=== PATIENT | female | born 1960 | race Two or more races ===

== ENCOUNTER 2018-05-06 13:59 | Emergency (ER) | payer MEDICARE, MEDICAID ==
[~2018-05-06] VITALS: Ht 162.6 cm; Wt 72.6 kg
--- NOTE | 2018-05-06 14:08 | Emergency Room Report ---
History of Present Illness General Chief Complaint: Multiple Trauma/Fall Source: Patient Present Illness HPI Patient brought in by EMS after ground-level fall. She fell onto her knees. She tripped. She was face down when they found her. She is unable to ambulates due to pain. The pain is severe bilaterally. She also has bruising of her right knee area. There is no numbness. She denies lose consciousness. There is no chest or face pain. The patient has a history of diabetes. Allergies: Coded Allergies: No Known Allergies (Unverified , 05/06/18) Patient History Past Medical History: see triage record Social History: Denies: smoking, alcohol use Social History Narrative Reviewed Nursing Documentation: PMH: Agreed; PSxH: Agreed Nursing Documentation-PMH Past Medical History: No History, Except For Hx Hypertension: Yes Hx Diabetes: Yes Review of Systems All Other Systems: negative except mentioned in HPI Physical Exam Vital Signs Date Time Temp Pulse Resp B/P (MAP) Pulse Ox O2 Delivery O2 Flow Rate FiO2 05/06/18 13:57 98.3 118 18 106/59 99 Room Air 98.2 Sp02 EP Interpretation: reviewed, normal General Appearance: well appearing, no apparent distress, GCS 15 Head: normocephalic, atraumatic Eyes: bilateral eye normal inspection, bilateral eye PERRL ENT: hearing grossly normal, normal voice, moist mucus membranes Neck: full range of motion, supple, no bony tend Respiratory: chest non-tender, lungs clear, normal breath sounds, no respiratory distress, speaking full sentences Cardiovascular #1: regular rate, rhythm Gastrointestinal: normal bowel sounds, non tender, soft, overweight Musculoskeletal: no calf tenderness, pelvis stable, swelling, other - Bilateral knee pain. Lateral ligaments are stable. There is tenderness to palpation. She's no deformity. Neurologic: alert, motor strength/tone normal, sensory intact Psychiatric: mood/affect normal Skin: no rash, hematoma - And ecchymoses right anterior knee Medical Decision Making Diagnostic Impression: Primary Impression: Contusion of right knee Additional Impressions: Contusion of left knee Multiple injuries due to trauma ER Course Patient presents post fall with bilateral knee pain and also hip pain on the right. Differential includes contusion, hematoma, fracture amongst others. The patient will be evaluated with labs as she is diabetic and also x-rays. She will be treated with Toradol morphine and Zofran. X-ray pelvis without fractures. Right knee with degenerative joint disease. No fractures. Left knee with less DJD. Both knees have small effusions. Labs are significant for elevated glucose low H&H elevated alkaline phosphatase. Kurt applied by the exhaust emissions automotive technician. Tension is good and position is excellent. Patient has some improvement with this. Neurovascular is checked by me and normal. Patient is improved with treatment. Follow-up is needed with her doctors. Treatment plan was discussed. Patient stable for outpatient observation and treatment. Laboratory Tests Test 05/06/18 14:15 White Blood Count 7.8 K/UL (4.8-10.8) Red Blood Count 3.47 M/UL (4.20-5.40) L Hemoglobin 11.0 G/DL (12.0-16.0) L Hematocrit 33.2 % (37.0-47.0) L Mean Corpuscular Volume 96 FL (80-99) Mean Corpuscular Hemoglobin 31.6 PG (27.0-31.0) H Mean Corpuscular Hemoglobin Concent 33.0 G/DL (32.0-36.0) Red Cell Distribution Width 13.8 % (11.6-14.8) Platelet Count 107 K/UL (150-450) L Mean Platelet Volume 10.5 FL (6.5-10.1) H Neutrophils (%) (Auto) 69.6 % (45.0-75.0) Lymphocytes (%) (Auto) 22.2 % (20.0-45.0) Monocytes (%) (Auto) 6.4 % (1.0-10.0) Eosinophils (%) (Auto) 1.1 % (0.0-3.0) Basophils (%) (Auto) 0.7 % (0.0-2.0) Sodium Level 139 MMOL/L (136-145) Potassium Level 3.3 MMOL/L (3.5-5.1) L Chloride Level 105 MMOL/L (98-107) Carbon Dioxide Level 26 MMOL/L (21-32) Anion Gap 8 mmol/L (5-15) Blood Urea Nitrogen 10 mg/dL (7-18) Creatinine 0.6 MG/DL (0.55-1.30) Estimate Glomerular Filtration Rate > 60 mL/min (>60) Glucose Level 292 MG/DL (74-106) H Calcium Level 8.7 MG/DL (8.5-10.1) Total Bilirubin 0.5 MG/DL (0.2-1.0) Aspartate Amino Transferase (AST) 41 U/L (15-37) H Alanine Aminotransferase (ALT) 58 U/L (12-78) Alkaline Phosphatase 335 U/L (46-116) H Total Protein 6.4 G/DL (6.4-8.2) Albumin 2.8 G/DL (3.4-5.0) L Globulin 3.6 g/dL Albumin/Globulin Ratio 0.8 (1.0-2.7) L Other X-Ray Diagnostic Results Other X-Ray Diagnostic Results #1: X-Ray ordered: l knee # of Views/Limited Vs Complete: 3 View Indication: Other EP Interpretation: Yes Interpretation: no dislocation, no soft tissue swelling, no fractures, other - effusion, small Impression: Other Electronically Signed by: Electronically signed by Vishnu Paredes MD Other X-Ray Diagnostic Results #2: X-Ray ordered: r knee # of Views/Limited Vs Complete: 3 View Indication: Other EP Interpretation: Yes Interpretation: no dislocation, no soft tissue swelling, no fractures, other - DJD and effusion Impression: Other Electronically Signed by: Electronically signed by Vishnu Paredes MD Other X-Ray Diagnostic Results #3: X-Ray ordered: pelvis # of Views/Limited Vs Complete: 1 View Indication: Other Interpretation: no dislocation, no soft tissue swelling, no fractures, nonspecific bowel gas Impression: Other Electronically Signed by: Electronically signed by Vishnu Paredes MD Status: improved Disposition: HOME, SELF-CARE Condition: Improved Vishnu Paredse M.D. May 06, 2018 14:08
[2018-05-06] MEDS ORDERED: Ketorolac 30mg Inj IV ONE (14:15)
[2018-05-06] MEDS ORDERED: Morphine Sulfate 4mg/ml Inj (IV USE ONLY) IVP ONE (14:15)
[2018-05-06 14:43] LABS: BASOPHILS % (AUTO) 0.7 % (0.0-2.0); EOSINOPHILS % (AUTO) 1.1 % (0.0-3.0); HEMATOCRIT 33.2 % (37.0-47.0); LYMPHOCYTES % (AUTO) 22.2 % (20.0-45.0); MEAN CORPUSCULAR VOLUME 96 FL (80-99); MONOCYTES % (AUTO) 6.4 % (1.0-10.0); NEUTROPHILS % (AUTO) 69.6 % (45.0-75.0); PLATELET COUNT 107 K/UL (150-450); RED BLOOD COUNT 3.47 M/UL (4.20-5.40); RED CELL DISTRIBUTION WIDTH 13.8 % (11.6-14.8); WHITE BLOOD COUNT 7.8 K/UL (4.8-10.8)
[2018-05-06 14:50] LABS: ANION GAP 8 mmol/L (5-15); BLOOD UREA NITROGEN 10 mg/dL (7-18); CALCIUM 8.7 MG/DL (8.5-10.1); CARBON DIOXIDE 26 MMOL/L (21-32); CHLORIDE 105 MMOL/L (98-107); CREATININE 0.6 MG/DL (0.55-1.30); POTASSIUM 3.3 MMOL/L (3.5-5.1); SODIUM 139 MMOL/L (136-145)
[2018-05-06 14:55] LABS: ALANINE AMINOTRANSFERASE 58 U/L (12-78); ALBUMIN 2.8 G/DL (3.4-5.0); ALBUMIN/GLOBULIN RATIO 0.8 (1.0-2.7); ALKALINE PHOSPHATASE 335 U/L (46-116); ASPARTATE AMINO TRANSFERASE 41 U/L (15-37); BILIRUBIN,TOTAL 0.5 MG/DL (0.2-1.0)
[2018-05-06 15:25] VITALS: BP 107/67
[2018-05-06] MEDS ORDERED: TRAMADOL HCL50 MG ORAL (15:43)
[2018-05-06] MEDS ORDERED: IBUPROFEN600 MG ORAL (15:43)
[2018-05-06 16:00] VITALS: BP 107/67
--- NOTE | 2018-05-07 12:49 | Diagnostic Imaging Report ---
Indication: Pain status post trauma Technique: XRAY Pelvis 1v Comparison: None FINDINGS/IMPRESSION: Limited exam due to underpenetration secondary to patient's body habitus. Within these limitations: No definite/displaced acute fracture identified. Bilateral hip joints, sacroiliac joints and symphysis pubis maintained. Some degenerative changes are noted in the lower lumbar spine. No radiopaque foreign body identified. More sensitive evaluation with CT or MRI of the pelvis can be obtained as clinically indicated.
--- NOTE | 2018-05-07 12:51 | Diagnostic Imaging Report ---
Indication: Left knee pain status post injury Technique: 3 views of the left knee Comparison: None Findings: Bone mineralization within normal limits. There is no evidence of acute fracture or dislocation. There is a small quadriceps tendon enthesophyte. A fabella is incidentally identified. No suprapatellar joint effusion. No radiopaque foreign body. Impression: No acute bony or articular abnormality.
--- NOTE | 2018-05-07 12:52 | Diagnostic Imaging Report ---
Indication: Right knee pain status post injury Technique: 3 views of the right knee Comparison: None: Correlation made to concurrent radiographs of the left knee. Findings: Bony mineralization within normal limits. There is no evidence of acute fracture or dislocation. There is a tiny quadriceps tendon enthesophyte. A fabella is incidentally identified. No suprapatellar joint effusion. No radiopaque foreign body. Impression: No acute bony or articular abnormality.
== END 2018-05-06 16:06 | disposition home or self-care (01) ==
LOC: EDBD 13:59 → EMR 14:15
DX: S80.02XA Contusion of left knee, initial encounter (principal); S80.01XA Contusion of right knee, initial encounter; W01.0XXA Fall on same level from slipping, tripping and stumbling without subsequent striking against object, initial encounter; Y92.89 Other specified places as the place of occurrence of the external cause; I10 Essential (primary) hypertension; E11.9 Type 2 diabetes mellitus without complications
CPT/HCPCS: 36415; 72170; 73562; 80053; 85025; 96374; 96375; 99284; J1885; J2270; J2405

== ENCOUNTER 2018-10-09 08:26 | Inpatient (IN) | payer MEDICARE, MEDICAID ==
[~2018-10-09] VITALS: Ht 154.9 cm; Wt 108.0 kg
[2018-10-09] VITALS (39 sets, daily range): BP systolic 59–187; BP diastolic 16–105
[~2018-10-09 08:26] MED LIST: IBUPROFEN600 MG ORAL; TRAMADOL HCL50 MG ORAL
--- NOTE | 2018-10-09 08:30 | NUR ---
ED Nurse Note: PT BROUGHT IN BY R13 FROM HOME. AOX4. PT C/O UPPER AND LOWER BACK PAIN AND RIGHT HIP PAIN, 8/10 X LAST NIGHT AFTER FALL. PER EMS, FALL WAS UNWITNESSED BUT OCCURRED SOME TIME BETWEEN 12AM AND 8AM. SKIN INTACT. PT O2SAT 81%. PT PLACED ON 3L O2 VIA NASAL CANNULA. RR21 @ 94% O2 SAT. BP: 76/44. DR. GRACY CHEW.
[2018-10-09] MEDS ORDERED: METFORMIN HCL500 M1 ORAL (08:31)
[2018-10-09] MEDS ORDERED: GLIPIZIDE10 MG PO (08:31)
[2018-10-09] MEDS ORDERED: EC-NAPROSYN375 MG PO (08:31)
[2018-10-09] MEDS ORDERED: HYDROCHLOROTH12.5 M2 ORAL (08:31)
[2018-10-09 09:12] LABS: HEMATOCRIT 29.4 % (37.0-47.0); HEMOGLOBIN 9.2 G/DL (12.0-16.0); MEAN CORPUSCULAR VOLUME 98 FL (80-99); PLATELET COUNT 184 K/UL (150-450); RED CELL DISTRIBUTION WIDTH 16.5 % (11.6-14.8)
--- NOTE | 2018-10-09 09:15 | NUR ---
ED Nurse Note: XRAY AT BEDSIDE
[2018-10-09 09:16] LABS: WHITE BLOOD COUNT 29.4 K/UL (4.8-10.8)
[2018-10-09 09:23] LABS: ANION GAP 16 mmol/L (5-15); APPEARANCE,URINE CLEAR; BILIRUBIN, URINE NEGATIVE (NEGATIVE); BLOOD UREA NITROGEN 22 mg/dL (7-18); CALCIUM 8.3 MG/DL (8.5-10.1); CARBON DIOXIDE 19 MMOL/L (21-32); CHLORIDE 99 MMOL/L (98-107); COLOR,URINE BROWN; GLUCOSE, URINE (UA) 2+ (NEGATIVE); KETONES,URINE 1+ (NEGATIVE); LEUKOCYTE ESTERASE ,URINE 1+ (NEGATIVE); NITRITE,URINE NEGATIVE (NEGATIVE); PH,URINE 5 (4.5-8.0); POTASSIUM 4.1 MMOL/L (3.5-5.1); PROTEIN,URINE 2+ (NEGATIVE); SODIUM 134 MMOL/L (136-145); UROBILINOGEN,URINE NORMAL MG/DL (0.0-1.0)
[2018-10-09] MEDS ORDERED: Piperacillin/Tazobactam 4.5 GM in NS 110 ML IVPB ONE (09:30)
[2018-10-09] MEDS ORDERED: VANCOMYCIN 1.5 GM IVPB ONE (09:30)
--- NOTE | 2018-10-09 09:35 | NUR ---
ED Nurse Note: 2+ PITTING EDEMA NOTED TO BILATERAL LOWER LEGS. SKIN ASSESSMENT: BLANCHABLE REDNESS NOTED TO COCCYX AREA WELL BILATERAL HIP BRUISING.
[2018-10-09 09:37] LABS: ALANINE AMINOTRANSFERASE 165 U/L (12-78); ALBUMIN 2.1 G/DL (3.4-5.0); ALBUMIN/GLOBULIN RATIO 0.7 (1.0-2.7); ALKALINE PHOSPHATASE 240 U/L (46-116); ASPARTATE AMINO TRANSFERASE 196 U/L (15-37); BILIRUBIN,TOTAL 0.7 MG/DL (0.2-1.0); CKMB 45.1 NG/ML (0.0-3.6); CREATINE KINASE 3455 U/L (26-308)
[2018-10-09] MEDS ORDERED: Lidocaine 1% Plain 30 ml INJ ONE (10:03)
[2018-10-09] MEDS ORDERED: Lidocaine 1% 10mg/ml/Epi 0.005mg/ml 30ml vial INJ ONE ×2 (10:04→11:45)
--- NOTE | 2018-10-09 10:10 | NUR ---
ED Nurse Note: DR DUBOSE AT BEDSIDE FOR RIGHT FEMORAL TRIPLE LUMEN CENTRAL LINE INSERTION. PT TOLERATED PROCEDURE WELL.
[2018-10-09] MEDS ORDERED: DOPamine 400mg/250ml 0 ML IV ONE (10:13)
[2018-10-09] MEDS ORDERED: Levophed 4mg/4mL Inj IV ONE (10:17)
--- NOTE | 2018-10-09 10:40 | Emergency Room Report ---
History of Present Illness General Chief Complaint: Multiple Trauma/Fall Source: Family Member, Medical Record, EMS Present Illness HPI Patient initially presents by paramedics with what they reported is a fall Mechanical nature Upon arrival and general visualization of the patient she appears confused and ill With pallor Patient herself is confused And history was limited from the patient Family presents and they report that the patient was at [facility] ago with hip pain imaging studies were negative The now reports that over the past 3 weeks the patient has been showing some signs of confusion Family reports that last night she complained of abdominal pain Also had diarrhea Upon initial evaluation patient is also found to be hypoxic and in critical condition Allergies: Coded Allergies: No Known Allergies (Unverified , 05/06/18) Patient History Limited by: medical condition Past Medical History: see triage record Pertinent Family History: unable to obtain Last Menstrual Period: unknown Reviewed Nursing Documentation: PMH: Agreed; PSxH: Agreed Nursing Documentation-PM Past Medical History: No History, Except For Hx Hypertension: Yes Hx Diabetes: Yes Review of Systems All Other Systems: limited - Other than the ones mentioned in the history of present illness all others are reviewed however they do stay limited due to the patient's mental status Physical Exam Vital Signs Date Time Temp Pulse Resp B/P (MAP) Pulse Ox O2 Delivery O2 Flow Rate FiO2 10/09/18 08:26 98.1 61 20 135/114 100 Room Air 10/09/18 08:30 3.0 Sp02 EP Interpretation: reviewed, abnormal - Triage notes reports 100% on room air, on my evaluation patient is saturating at 85% on room air which is low, on 3 L nasal cannula patient improved to 95% which is a normal oxygenation General Appearance: mild distress - appears confused lethargic Head: normocephalic, atraumatic Eyes: bilateral eye PERRL ENT: no angioedema, dry mucus membranes Neck: supple, no meningismus Respiratory: other - Appears short of breath somewhat tachypneic Cardiovascular #1: regular rate, rhythm, no edema Gastrointestinal: other - Initially patient unable to provide history later reports mid abdominal pain family also confirms abdominal pain noted previously Musculoskeletal: other - Patient moving extremities without focal deficit, has bruising on bilateral hip area Neurologic: responsive, other - Patient awakens eyes and attempts communication however appears uncomfortable Skin: other - Pallor to the facial area, bruising to the hip region Lymphatic: no adenopathy Procedures Critical Care Time Critical Care Time 80 minutes for initial critical presentation, ongoing critical care in the emergency room concern for respiratory and vascular deterioration not including any procedural time Central Line Central Line : Consent: Emergent Central Line Lumen: triple Maximal Sterile Barrier Tech: yes cap, yes mask, yes sterile gown, yes sterile gloves, yes large sterile sheet, yes hand hygiene, yes chlorhexidine prep Central Line Postion: subclavian (R) Anesthesia: Lidocaine cc's of anesthesia: 3 Complications: none Central Line Post Position: sutured Attempts: One Patient Tolerated: Well Complications: None Medical Decision Making Diagnostic Impression: Primary Impression: Liver cirrhosis Additional Impressions: Septic shock Pneumonia ER Course Patient presents in critical status Requires acute emergency care Patient is aggressively IV hydrated CT imaging reveals some liver disease with cirrhosis and ascites Patient's white blood cell count is significantly elevated severe acidosis is evident Patient thus far maintaining appropriate airway Broad-spectrum antibiotics are initiated Sepsis reexamination Time:1200 VS refer to nursing note cvs: RRR respiratory: improved respiration peripheral pulses: 2+radial cap refill:<2 seconds skin exam: warm, dry, not mottled Patient admitted to ICU in critical fashion with general surgery consultation as well Please note that the patient's creatinine is elevated, we did want to obtain CT imaging for further pulmonary embolism Patient be further hydrated patient was treated with Lovenox And case was also discussed with pulmonary critical care, Labs Test 10/09/18 08:51 10/09/18 09:10 10/09/18 10:56 10/09/18 11:43 White Blood Count 29.4 K/UL (4.8-10.8) Red Blood Count 3.00 M/UL (4.20-5.40) Hemoglobin 9.2 G/DL (12.0-16.0) Hematocrit 29.4 % (37.0-47.0) Mean Corpuscular Volume 98 FL (80-99) Mean Corpuscular Hemoglobin 30.8 PG (27.0-31.0) Mean Corpuscular Hemoglobin Concent 31.4 G/DL (32.0-36.0) Red Cell Distribution Width 16.5 % (11.6-14.8) Platelet Count 184 K/UL (150-450) Mean Platelet Volume 7.3 FL (6.5-10.1) Neutrophils (%) (Auto) % (45.0-75.0) Lymphocytes (%) (Auto) % (20.0-45.0) Monocytes (%) (Auto) % (1.0-10.0) Eosinophils (%) (Auto) % (0.0-3.0) Basophils (%) (Auto) % (0.0-2.0) Differential Total Cells Counted 100 Neutrophils % (Manual) 62 % (45-75) Lymphocytes % (Manual) 3 % (20-45) Monocytes % (Manual) 6 % (1-10) Eosinophils % (Manual) 0 % (0-3) Basophils % (Manual) 0 % (0-2) Band Neutrophils 29 % (0-8) Platelet Estimate Adequate Platelet Morphology Normal Red Blood Cell Morphology Normal Urine Color Brown Urine Appearance Clear Urine pH 5 (4.5-8.0) Urine Specific Biggers 1.015 (1.005-1.035) Urine Protein 2+ (NEGATIVE) Urine Glucose (UA) 2+ (NEGATIVE) Urine Ketones 1+ (NEGATIVE) Urine Blood Negative (NEGATIVE) Urine Nitrite Negative (NEGATIVE) Urine Bilirubin Negative (NEGATIVE) Urine Urobilinogen Normal MG/DL (0.0-1.0) Urine Leukocyte Esterase 1+ (NEGATIVE) Urine RBC 0 /HPF (0 - 2) Urine WBC 0-2 /HPF (0 - 2) Urine Squamous Epithelial Cells Occasional /LPF Urine Bacteria Occasional /HPF (NONE) Sodium Level 134 MMOL/L (136-145) Potassium Level 4.1 MMOL/L (3.5-5.1) Chloride Level 99 MMOL/L (98-107) Carbon Dioxide Level 19 MMOL/L (21-32) Anion Gap 16 mmol/L (5-15) Blood Urea Nitrogen 22 mg/dL (7-18) Creatinine 2.0 MG/DL (0.55-1.30) Estimat Glomerular Filtration Rate 25.6 mL/min (>60) Glucose Level 86 MG/DL (74-106) Lactic Acid Level 9.70 mmol/L (0.4-2.0) 7.90 mmol/L (0.66-2.22) Calcium Level 8.3 MG/DL (8.5-10.1) Total Bilirubin 0.7 MG/DL (0.2-1.0) Aspartate Amino Transf (AST/SGOT) 196 U/L (15-37) Alanine Aminotransferase (ALT/SGPT) 165 U/L (12-78) Alkaline Phosphatase 240 U/L (46-116) Total Creatine Kinase 3455 U/L (26-308) Creatine Kinase MB 45.1 NG/ML (0.0-3.6) Creatine Kinase MB Relative Index 1.3 Troponin I 0.811 ng/mL (0.000-0.056) Pro-B-Type Natriuretic Peptide 539 pg/mL (0-125) Total Protein 5.1 G/DL (6.4-8.2) Albumin 2.1 G/DL (3.4-5.0) Globulin 3.0 g/dL Albumin/Globulin Ratio 0.7 (1.0-2.7) Lipase 136 U/L (73-393) Urine Opiates Screen Negative (NEGATIVE) Urine Barbiturates Screen Negative (NEGATIVE) Phencyclidine (PCP) Screen Negative (NEGATIVE) Urine Amphetamines Screen Negative (NEGATIVE) Urine Benzodiazepines Screen Negative (NEGATIVE) Urine Cocaine Screen Negative (NEGATIVE) Urine Marijuana (THC) Screen Negative (NEGATIVE) Serum Alcohol < 3 mg/dL Arterial Blood pH 7.393 (7.350-7.450) Arterial Blood Partial Pressure CO2 33.1 mmHg (35.0-45.0) Arterial Blood Partial Pressure O2 85.6 mmHg (75.0-100.0) Arterial Blood HCO3 19.7 mmol/L (22.0-26.0) Arterial Blood Oxygen Saturation 94.9 % (95-100) Arterial Blood Base Excess -4.5 (-2-2) Ortiz Test Positive Ammonia 49 umol/L (11-32) Rhythm Strip Diag. Results EP Interpretation: yes Rate: 110 Rhythm: no PVC's, no ectopy, other - sinus tach Chest X-Ray Diagnostic Results Chest X-Ray Diagnostic Results : Chest X-Ray Ordered: Yes Indication: Shortness of Breath EP Interpretation: Yes Interpretation: no effusion, no pneumothorax, other - cardiomegaly, right- sided infrate Impression: Other - right-sided infiltrate Electronically Signed by: Michael Montana, CT/MRI/US Diagnostic Results CT/MRI/US Diagnostic Results : Impression CT abdomen pelvisImpression: Limited assessment of the GI tract, due to lack of enteric contrast administration. Exam is also limited due to patient motion artifact and lack of IV contrast administration Evidence of hepatic cirrhosis Small amount of ascites, likely related to the above Surgically absent gallbladder Bilateral basilar pulmonary parenchymal atelectatic changes and possible patchy consolidation Minimal edema of the bilateral flank subcutaneous fat Other findings as noted, including degenerative spondylosis, right hepatic lobe capsular calcification, Quiroz catheter CT head no acute disease CTL-spine no acute disease Last Vital Signs Date Time Temp Pulse Resp B/P (MAP) Pulse Ox O2 Delivery O2 Flow Rate FiO2 10/09/18 10:22 87/52 10/09/18 09:30 98.2 110 28 100 Nasal Cannula 3.0 Status: improved Disposition: ADMITTED INPATIENT Condition: Critical Referrals: NON PHYSICIAN (PCP) Michael Montana DO Oct 09, 2018 10:40
--- NOTE | 2018-10-09 10:50 | NUR ---
ED Nurse Note: VERBAL ORDER FOR BLANCHARD CATHETER INSERTION. BLANCHARD CATHETER INSERTED USING STERILE TECHNIQUE. CATHETER PATENT AND DRAINING YELLOW URINE. PT TOLERATED PROCEDURE WELL.
--- NOTE | 2018-10-09 11:07 | Diagnostic Imaging Report ---
Indication: Shortness of breath Technique: One view of the chest Comparison: none Findings: Body habitus limits evaluation. The heart is enlarged. There is some atelectasis at the left lung base. No definite infiltrates or effusions Impression: Cardiomegaly. Right basilar atelectasis
--- NOTE | 2018-10-09 11:09 | NUR ---
Note semaj in EDM - 10/09/18 at 1110 by YARELY ED Nurse Note: VERBAL ORDER FOR BLANCHARD CATHETER INSERTION. BLANCHARD CATHETER INSERTED USING STERILE TECHNIQUE. CATHETER PATENT AND DRAINING YELLOW URINE. PT TOLERATED PROCEDURE WELL.
--- NOTE | 2018-10-09 11:25 | Diagnostic Imaging Report ---
Indications: Altered mental status,. Trauma Technique: Spiral acquisitions obtained through the brain. Angled axial and coronal 5 x 5 mm slices were reconstructed. Total dose length product 1995.4 mGycm. CTDI vol(s) 70.38,70.38 mGy. Dose reduction achieved using automated exposure control Comparison: None. Findings: There is some image degradation due to patient motion artifact, slightly improved on repeat imaging of the skull base. No acute intracranial hemorrhage or edema, mass effect, nor midline shift. Normal willard-white differentiation. Normal-sized ventricles and extra-axial CSF spaces. The calvarium is intact. There is minimal left-sided sphenoid sinus disease. The mastoids are clear. Impression: Negative for acute intracranial bleed or mass effect Minimal sinus disease incidentally noted The CT scanner at [facility] is accredited by the [employer] and the scans are performed using protocols designed to limit radiation exposure to as low as reasonably achievable to attain images of sufficient resolution adequate for diagnostic evaluation.
--- NOTE | 2018-10-09 11:33 | NUR ---
ED Nurse Note: PER ICU CHARGE NURSE, UNIT NOT READY TO ACCEPT PT. NEEDS MORE THAN 30 MINUTES TO PREPARE BED.
--- NOTE | 2018-10-09 11:36 | Diagnostic Imaging Report ---
Indication: Trauma, abdominal pain, leukocytosis, sepsis Technique: Spiral acquisitions obtained through the abdomen and pelvis. No oral contrast utilized, per emergency room physician request No IV contrast utilized, per referring physician request.. Multiplanar reconstructions were generated. Total dose length product 1171.76 mGycm. CTDIvol(s) 19.28 mGy. Dose reduction achieved using automated exposure control Comparison: None Findings: There is image degradation due to patient motion artifact Lack of enteric contrast limits assessment of the GI tract. The appendix is normal. No evidence of diverticulosis or diverticulitis. There is a small amount of free intraperitoneal fluid, predominantly over the dome of the liver, but a small amount is also seen in the pelvis. No loculated collections are demonstrated No free intraperitoneal gas is demonstrated. There is a tiny fat-containing umbilical hernia. Small bowel loops are diffusely somewhat prominent in caliber, fluid-filled distally. Lack of IV contrast limits assessment of the solid organs. The liver demonstrates surface nodularity and relative hypertrophy of the left lobe, consistent with cirrhotic change. There is a capsular calcification in the inferomedial right lower lobe. The gallbladder is surgically absent. No biliary ductal dilatation is evident. The pancreas, spleen, adrenals, kidneys all unremarkable. The bladder is empty, contains a Quiroz catheter. A small amount of air is seen within the bladder lumen, presumably related to the Quiroz catheterization. The uterus and adnexal structures are unremarkable. There is mild edema of the bilateral flank subcutaneous fat. The included lung bases demonstrate areas of atelectasis and possibly some patchy consolidation. The bones demonstrate degenerative spondylosis changes. Impression: Limited assessment of the GI tract, due to lack of enteric contrast administration. Exam is also limited due to patient motion artifact and lack of IV contrast administration Evidence of hepatic cirrhosis Small amount of ascites, likely related to the above Surgically absent gallbladder Bilateral basilar pulmonary parenchymal atelectatic changes and possible patchy consolidation Minimal edema of the bilateral flank subcutaneous fat Other findings as noted, including degenerative spondylosis, right hepatic lobe capsular calcification, Quiroz catheter The CT scanner at [facility] is accredited by the [employer] and the scans are performed using protocols designed to limit radiation exposure to as low as reasonably achievable to attain images of sufficient resolution adequate for diagnostic evaluation.
--- NOTE | 2018-10-09 11:37 | NUR ---
ED Nurse Note: LAB CALLED FOR ADDITIONAL ORDERS OF DRUG URINE AND SERUM ALCOHOL. MUSIC ORCHESTRATOR, DARRON, CONFIRMS THEY ARE ABLE TO ADD WITHOUT ADDITIONAL SPECIMEN.
--- NOTE | 2018-10-09 11:47 | NUR ---
ED Nurse Note: BLOOD DRAWN AND AMMONIA SENT TO LAB.
--- NOTE | 2018-10-09 12:05 | NUR ---
ED Nurse Note: PER ICU CHARGE NURSE, BED IS STILL NOT READY. CHARGE NURSE STATES SHE NEEDS 15 MORE MINUTES.
--- NOTE | 2018-10-09 12:16 | Diagnostic Imaging Report ---
Indications: Trauma, pain, status post fall Technique: Spiral acquisitions obtained through the lumbar spine. Multiplanar reconstructions were generated. No IV contrast utilized. Total dose length product 1171 mGycm. CTDIvol(s) 19 mGy. Dose reduction achieved using automated exposure control Comparison: none Findings: Bony alignment is normal. Vertebral body heights are preserved. There is minimal degenerative disc narrowing at L3-4 and L5-S1. There is degenerative vacuum formation these levels. Circumferential annular bulge at L4-5 results in mild narrowing the spinal canal. The neural foramina are preserved. Posterior disc protrusion and osteophyte complex results in borderline narrowing of the spinal canal and possible impingement upon the right lateral recess at L5-S1. The osteophytes result in mild to moderate compromise of the right neural foramen. Facet arthrosis results in mild to moderate compromise of the left neural foramen. Impression: No acute bony trauma Multilevel degenerative facet arthrosis, as described The CT scanner at [facility] is accredited by the [employer] and the scans are performed using protocols designed to limit radiation exposure to as low as reasonably achievable to attain images of sufficient resolution adequate for diagnostic evaluation.
--- NOTE | 2018-10-09 12:20 | NUR ---
ED Nurse Note: PER ICU CHARGE NURSE, SHE NEEDS 30 MORE MINUTES. WILL CALL BACK IN 30 MINUTES.
[2018-10-09] MEDS ORDERED: Enoxaparin 80mg Inj SUBQ ONE (12:45)
--- NOTE | 2018-10-09 13:14 | NUR ---
ED Nurse Note: ICU CALLED FOR PT REPORT. REPORT GIVEN TO KARI RAMOS. PT TAKEN UP TO ICU WITH LEVOPHED DRIP AND ALL BELONGINGS ACCOMPANIED BY PRIMARY RN AND EMT.
--- NOTE | 2018-10-09 13:49 | NUR ---
NURSE NOTES: Spoke to Dr. Kelley, received admission orders and MD consults.
--- NOTE | 2018-10-09 14:15 | NUR ---
NURSE NOTES: Patient received from ER, lying in bed, asleep, drowsy, complaining of pain. On 3 Lpm, nasal cannula, short of breath, oxygen saturation 91%. Quiroz catheter draining to light joselito urine. Right femoral TLC intact, newly inserted, running Levophed at 16 mcg/min for BP management. Right and left AC saline lock. Sinus Tachycardia on the monitor. Bilateral bruising to butt cheeks noted, from fall per , otherwise skin is intact. safety measures implemented. Will continue to monitor.
--- NOTE | 2018-10-09 14:15 | Consultation ---
History of Present Illness General Date patient seen: Oct 09, 2018 Reason for Hospitalization: Multiple Trauma/Fall Present Illness HPI 58 year old female presented after mechanical fall with confusion and ill appearance. In ED noted to have abnormal labs with leukocytosis, lactic acidosis, abnormal LFT's. CT as below. surgery called to evaluate. patient seen, chart reviewed, patient examined. states she has known liver issues but was not aware of severity. has sciatic nerve pain and fell 3 weeks ago. had another fall today. Allergies: Coded Allergies: No Known Allergies (Unverified , 05/06/18) Medication History Scheduled Hydrochlorothiazide* (Hydrochlorothiazide*), Unknown Dose ORAL DAILY, (Reported) Metformin Hcl* (Metformin Hcl*), Unknown Dose ORAL TWICE A DAY, (Reported) Scheduled PRN Ibuprofen* (Motrin*), 600 MG ORAL Q6H PRN for For Pain Tramadol Hcl* (Ultram*), 50 MG ORAL Q6H PRN for For Pain Miscellaneous Medications Glipizide (Glipizide), Unknown Dose PO, (Reported) Naproxen (Ec-Naprosyn), Unknown Dose PO, (Reported) Patient History Limited by: medical condition History Provided By: Medical Record, PMD Healthcare decision maker Resuscitation status Advanced Directive on File Past Medical/Surgical History Past Medical/Surgical History: (1) Hyperglycemia (2) Contusion of left knee (3) Contusion of right knee (4) Multiple injuries due to trauma (5) Dyspnea (6) Hypotension (7) Hypoxemia Review of Systems Review of Symptoms cannot obtain given medical condition Physical Exam Physical Exam General appearance: mild distress, appears stated age Head: Normocephalic, without obvious abnormality Eyes: conjunctivae/corneas clear. PERRL Throat: Lips, mucosa, and tongue normal. Teeth and gums normal Neck: supple, symmetrical, trachea midline, no adenopathy, thyroid: not enlarged, symmetric, no tenderness/mass/nodules, no carotid bruit and no JVD Lungs: clear to auscultation bilaterally Heart: regular rate and rhythm, no murmur, click, rub or gallop Abdomen: soft, non-tender. Bowel sounds normal. No masses, no organomegaly Extremities: extremities normal, atraumatic, no cyanosis or edema Pulses: 2+ and symmetric Skin: Skin color, texture, turgor normal. No rashes or lesions Neurologic: Grossly normal Last 24 Hour Vital Signs Date Time Temp Pulse Resp B/P (MAP) Pulse Ox O2 Delivery O2 Flow Rate FiO2 10/09/18 13:07 97/32 10/09/18 13:02 90/48 10/09/18 12:57 91/50 10/09/18 12:52 92/53 10/09/18 12:47 87/54 10/09/18 12:42 83/56 10/09/18 12:37 91/52 10/09/18 12:32 91/59 10/09/18 12:27 84/38 10/09/18 12:22 92/33 10/09/18 12:17 90/49 10/09/18 12:12 90/43 10/09/18 12:07 103/47 10/09/18 12:02 96/65 10/09/18 11:57 98/52 10/09/18 11:52 94/67 10/09/18 11:47 90/39 10/09/18 11:42 92/31 10/09/18 11:37 97/53 10/09/18 11:32 94/77 10/09/18 11:30 97.9 112 31 97/55 100 Nasal Cannula 3.0 10/09/18 11:27 97/55 10/09/18 11:22 86/56 10/09/18 11:17 97/43 10/09/18 11:12 80/63 10/09/18 11:07 91/56 10/09/18 11:02 83/43 10/09/18 10:57 90/65 10/09/18 10:52 92/57 10/09/18 10:47 92/78 10/09/18 10:42 91/75 10/09/18 10:37 100/48 10/09/18 10:32 92/36 10/09/18 10:30 98.1 114 30 86/42 100 Nasal Cannula 3.0 10/09/18 10:27 86/42 10/09/18 10:22 87/52 10/09/18 10:22 87/52 10/09/18 09:30 98.2 110 28 94/68 100 Nasal Cannula 3.0 10/09/18 08:30 98.4 113 21 76/44 94 Nasal Cannula 3.0 10/09/18 08:30 113 21 Nasal Cannula 3.0 10/09/18 08:26 98.1 61 20 135/114 100 Room Air Laboratory Tests Test 10/09/18 08:51 10/09/18 09:10 10/09/18 10:56 10/09/18 11:43 White Blood Count 29.4 K/UL (4.8-10.8) *H Red Blood Count 3.00 M/UL (4.20-5.40) L Hemoglobin 9.2 G/DL (12.0-16.0) L Hematocrit 29.4 % (37.0-47.0) L Mean Corpuscular Volume 98 FL (80-99) Mean Corpuscular Hemoglobin 30.8 PG (27.0-31.0) Mean Corpuscular Hemoglobin Concent 31.4 G/DL (32.0-36.0) L Red Cell Distribution Width 16.5 % (11.6-14.8) H Platelet Count 184 K/UL (150-450) Mean Platelet Volume 7.3 FL (6.5-10.1) Neutrophils (%) (Auto) % (45.0-75.0) Lymphocytes (%) (Auto) % (20.0-45.0) Monocytes (%) (Auto) % (1.0-10.0) Eosinophils (%) (Auto) % (0.0-3.0) Basophils (%) (Auto) % (0.0-2.0) Differential Total Cells Counted 100 Neutrophils % (Manual) 62 % (45-75) Lymphocytes % (Manual) 3 % (20-45) L Monocytes % (Manual) 6 % (1-10) Eosinophils % (Manual) 0 % (0-3) Basophils % (Manual) 0 % (0-2) Band Neutrophils 29 % (0-8) H Platelet Estimate Adequate Platelet Morphology Normal Red Blood Cell Morphology Normal Urine Color Brown Urine Appearance Clear Urine pH 5 (4.5-8.0) Urine Specific [place] 1.015 (1.005-1.035) Urine Protein 2+ (NEGATIVE) H Urine Glucose (UA) 2+ (NEGATIVE) H Urine Ketones 1+ (NEGATIVE) H Urine Blood Negative (NEGATIVE) Urine Nitrite Negative (NEGATIVE) Urine Bilirubin Negative (NEGATIVE) Urine Urobilinogen Normal MG/DL (0.0-1.0) Urine Leukocyte Esterase 1+ (NEGATIVE) H Urine RBC 0 /HPF (0 - 2) Urine WBC 0-2 /HPF (0 - 2) Urine Squamous Epithelial Cells Occasional /LPF Urine Bacteria Occasional /HPF (NONE) Sodium Level 134 MMOL/L (136-145) L Potassium Level 4.1 MMOL/L (3.5-5.1) Chloride Level 99 MMOL/L (98-107) Carbon Dioxide Level 19 MMOL/L (21-32) L Anion Gap 16 mmol/L (5-15) H Blood Urea Nitrogen 22 mg/dL (7-18) H Creatinine 2.0 MG/DL (0.55-1.30) H Estimat Glomerular Filtration Rate 25.6 mL/min (>60) Glucose Level 86 MG/DL (74-106) Lactic Acid Level 9.70 mmol/L (0.4-2.0) H 7.90 mmol/L (0.66-2.22) H Calcium Level 8.3 MG/DL (8.5-10.1) L Total Bilirubin 0.7 MG/DL (0.2-1.0) Aspartate Amino Transf (AST/SGOT) 196 U/L (15-37) H Alanine Aminotransferase (ALT/SGPT) 165 U/L (12-78) H Alkaline Phosphatase 240 U/L (46-116) H Total Creatine Kinase 3455 U/L (26-308) H Creatine Kinase MB 45.1 NG/ML (0.0-3.6) H Creatine Kinase MB Relative Index 1.3 Troponin I 0.811 ng/mL (0.000-0.056) Pro-B-Type Natriuretic Peptide 539 pg/mL (0-125) H Total Protein 5.1 G/DL (6.4-8.2) L Albumin 2.1 G/DL (3.4-5.0) L Globulin 3.0 g/dL Albumin/Globulin Ratio 0.7 (1.0-2.7) L Lipase 136 U/L (73-393) Urine Opiates Screen Negative (NEGATIVE) Urine Barbiturates Screen Negative (NEGATIVE) Phencyclidine (PCP) Screen Negative (NEGATIVE) Urine Amphetamines Screen Negative (NEGATIVE) Urine Benzodiazepines Screen Negative (NEGATIVE) Urine Cocaine Screen Negative (NEGATIVE) Urine Marijuana (THC) Screen Negative (NEGATIVE) Serum Alcohol < 3 mg/dL Arterial Blood pH 7.393 (7.350-7.450) Arterial Blood Partial Pressure CO2 33.1 mmHg (35.0-45.0) L Arterial Blood Partial Pressure O2 85.6 mmHg (75.0-100.0) Arterial Blood HCO3 19.7 mmol/L (22.0-26.0) L Arterial Blood Oxygen Saturation 94.9 % (95-100) L Arterial Blood Base Excess -4.5 (-2-2) L Ortiz Test Positive Ammonia 49 umol/L (11-32) H Microbiology Date/Time Source Procedure Growth Status 10/09/18 09:34 Rectum Received Height (Feet): 5 Height (Inches): 1.00 Weight (Pounds): 150 Medications Current Medications Medications (Trade) Dose Ordered Sig/Patricia Route PRN Reason Start Time Stop Time Status Last Admin Dose Admin Norepinephrine Bitartrate 4 mg/ Dextrose 250 ml @ 0 mls/hr Q24H IV 10/10/18 10:15 11/08/18 10:14 UNV Assessment/Plan Problem List: (1) Multiple injuries due to trauma ICD Codes: T07.XXXA - Unspecified multiple injuries, initial encounter SNOMED: 447069488 (2) Sepsis Assessment & Plan: Labs noted lactic acidosis improved with resuscitation CT findings: Limited assessment of the GI tract, due to lack of enteric contrast administration. Exam is also limited due to patient motion artifact and lack of IV contrast administration Evidence of hepatic cirrhosis Small amount of ascites, likely related to the above Surgically absent gallbladder Bilateral basilar pulmonary parenchymal atelectatic changes and possible patchy consolidation Minimal edema of the bilateral flank subcutaneous fat Other findings as noted, including degenerative spondylosis, right hepatic lobe capsular calcification, Quiroz catheter -npo -iv fluids -iv abx -trend labs will follow with recs thank you ICD Codes: A41.9 - Sepsis, unspecified organism SNOMED: 40250965 (3) Liver cirrhosis ICD Codes: K74.60 - Unspecified cirrhosis of liver SNOMED: 09518562 Josh Samuel Oct 09, 2018 14:15
--- NOTE | 2018-10-09 14:21 | GI Initial Consult Note ---
History of Present Illness General Date patient seen: Oct 09, 2018 Time patient seen: 14:10 Reason for Hospitalization: Multiple Trauma/Fall Referring physician: MINH OWUSU Reason for Consultation: CIRRHOSIS Present Illness HPI Patient initially presents by paramedics with what they reported is a fall Mechanical nature Upon arrival and general visualization of the patient she appears confused and ill With pallor Patient herself is confused And history was limited from the patient Family presents and they report that the patient was at good Yarsanism 3 weeks ago with hip pain imaging studies were negative The now reports that over the past 3 weeks the patient has been showing some signs of confusion Family reports that last night she complained of abdominal pain Also had diarrhea Upon initial evaluation patient is also found to be hypoxic and in critical condition GI consulted for abnormal LFTs, cirrhosis as seen on CT. Pt seen, awake A&Ox4 [place] speaking with family member at bedside. Has c/o of neck pain, abdominal pain, and diarrhea. Labs reviewed; presents with normocytic anemia, abnormal LFTs, elevated lactic acid levels, and elevated troponin levels. AP CT reviewed showed evidence of hepatic cirrhosis with small amounts of ascites. Utox negative. The patient denies any history of ETOH abuse. The patient has no history of endoscopy or colonoscopy. Home Meds Active Scripts Ibuprofen* (MOTRIN*) 600 Mg Tablet, 600 MG ORAL Q6H PRN for For Pain, #20 TAB Prov:Vishnu Paredes MD 05/06/18 Tramadol Hcl* (ULTRAM*) 50 Mg Tablet, 50 MG ORAL Q6H PRN for For Pain, #12 TAB 0 Refills Prov:Vishnu Paredes MD 05/06/18 Reported Medications Hydrochlorothiazide* (HYDROCHLOROTHIAZIDE*) 12.5 Mg Capsule, ORAL DAILY, CAP 10/09/18 Naproxen (EC-NAPROSYN) 375 Mg Tablet., PO, TAB 10/09/18 Metformin Hcl* (METFORMIN HCL*) 500 Mg Tablet, ORAL TWICE A DAY, TAB 10/09/18 Glipizide (GLIPIZIDE) 10 Mg Tablet, PO, TAB 10/09/18 Med list reviewed/reconciled: Yes Allergies: Coded Allergies: No Known Allergies (Unverified , 05/06/18) Patient History History Provided By: Patient, Medical Record PMH Narrative Limited by: medical condition Past Medical History: see triage record Pertinent Family History: unable to obtain Last Menstrual Period: unknown Reviewed Nursing Documentation: PMH: Agreed; PSxH: Agreed Nursing Documentation-PMH Past Medical History: No History, Except For Hx Hypertension: Yes Hx Diabetes: Yes Social History: Denies: smoking, alcohol use, drug use, other Review of Systems All Other Systems: negative except mentioned in HPI Physical Exam Vital Signs Date Time Temp Pulse Resp B/P (MAP) Pulse Ox O2 Delivery O2 Flow Rate FiO2 10/09/18 08:26 98.1 61 20 135/114 100 Room Air 10/09/18 08:30 3.0 Sp02 EP Interpretation: reviewed, normal Labs Laboratory Tests Test 10/09/18 08:51 10/09/18 09:10 10/09/18 10:56 10/09/18 11:43 White Blood Count 29.4 K/UL (4.8-10.8) *H Red Blood Count 3.00 M/UL (4.20-5.40) L Hemoglobin 9.2 G/DL (12.0-16.0) L Hematocrit 29.4 % (37.0-47.0) L Mean Corpuscular Volume 98 FL (80-99) Mean Corpuscular Hemoglobin 30.8 PG (27.0-31.0) Mean Corpuscular Hemoglobin Concent 31.4 G/DL (32.0-36.0) L Red Cell Distribution Width 16.5 % (11.6-14.8) H Platelet Count 184 K/UL (150-450) Mean Platelet Volume 7.3 FL (6.5-10.1) Neutrophils (%) (Auto) % (45.0-75.0) Lymphocytes (%) (Auto) % (20.0-45.0) Monocytes (%) (Auto) % (1.0-10.0) Eosinophils (%) (Auto) % (0.0-3.0) Basophils (%) (Auto) % (0.0-2.0) Differential Total Cells Counted 100 Neutrophils % (Manual) 62 % (45-75) Lymphocytes % (Manual) 3 % (20-45) L Monocytes % (Manual) 6 % (1-10) Eosinophils % (Manual) 0 % (0-3) Basophils % (Manual) 0 % (0-2) Band Neutrophils 29 % (0-8) H Platelet Estimate Adequate Platelet Morphology Normal Red Blood Cell Morphology Normal Urine Color Brown Urine Appearance Clear Urine pH 5 (4.5-8.0) Urine Specific [place] 1.015 (1.005-1.035) Urine Protein 2+ (NEGATIVE) H Urine Glucose (UA) 2+ (NEGATIVE) H Urine Ketones 1+ (NEGATIVE) H Urine Blood Negative (NEGATIVE) Urine Nitrite Negative (NEGATIVE) Urine Bilirubin Negative (NEGATIVE) Urine Urobilinogen Normal MG/DL (0.0-1.0) Urine Leukocyte Esterase 1+ (NEGATIVE) H Urine RBC 0 /HPF (0 - 2) Urine WBC 0-2 /HPF (0 - 2) Urine Squamous Epithelial Cells Occasional /LPF Urine Bacteria Occasional /HPF (NONE) Sodium Level 134 MMOL/L (136-145) L Potassium Level 4.1 MMOL/L (3.5-5.1) Chloride Level 99 MMOL/L (98-107) Carbon Dioxide Level 19 MMOL/L (21-32) L Anion Gap 16 mmol/L (5-15) H Blood Urea Nitrogen 22 mg/dL (7-18) H Creatinine 2.0 MG/DL (0.55-1.30) H Estimat Glomerular Filtration Rate 25.6 mL/min (>60) Glucose Level 86 MG/DL (74-106) Lactic Acid Level 9.70 mmol/L (0.4-2.0) H 7.90 mmol/L (0.66-2.22) H Calcium Level 8.3 MG/DL (8.5-10.1) L Total Bilirubin 0.7 MG/DL (0.2-1.0) Aspartate Amino Transf (AST/SGOT) 196 U/L (15-37) H Alanine Aminotransferase (ALT/SGPT) 165 U/L (12-78) H Alkaline Phosphatase 240 U/L (46-116) H Total Creatine Kinase 3455 U/L (26-308) H Creatine Kinase MB 45.1 NG/ML (0.0-3.6) H Creatine Kinase MB Relative Index 1.3 Troponin I 0.811 ng/mL (0.000-0.056) Pro-B-Type Natriuretic Peptide 539 pg/mL (0-125) H Total Protein 5.1 G/DL (6.4-8.2) L Albumin 2.1 G/DL (3.4-5.0) L Globulin 3.0 g/dL Albumin/Globulin Ratio 0.7 (1.0-2.7) L Lipase 136 U/L (73-393) Urine Opiates Screen Negative (NEGATIVE) Urine Barbiturates Screen Negative (NEGATIVE) Phencyclidine (PCP) Screen Negative (NEGATIVE) Urine Amphetamines Screen Negative (NEGATIVE) Urine Benzodiazepines Screen Negative (NEGATIVE) Urine Cocaine Screen Negative (NEGATIVE) Urine Marijuana (THC) Screen Negative (NEGATIVE) Serum Alcohol < 3 mg/dL Arterial Blood pH 7.393 (7.350-7.450) Arterial Blood Partial Pressure CO2 33.1 mmHg (35.0-45.0) L Arterial Blood Partial Pressure O2 85.6 mmHg (75.0-100.0) Arterial Blood HCO3 19.7 mmol/L (22.0-26.0) L Arterial Blood Oxygen Saturation 94.9 % (95-100) L Arterial Blood Base Excess -4.5 (-2-2) L Ortiz Test Positive Ammonia 49 umol/L (11-32) H General Appearance: well appearing, no apparent distress, alert, obese Head: normocephalic EENT: PERRL/EOMI, normal ENT inspection Neck: supple Respiratory: normal breath sounds, no respiratory distress Cardiovascular: normal rate Gastrointestinal: normal inspection, non tender, soft, normal bowel sounds, non -distended - tender to palpation, ascites Rectal: deferred Genitourinary: no CVA tenderness Musculoskeletal: normal inspection, back normal Neurologic: normal inspection, alert, oriented x3, responsive Psychiatric: normal inspection, judgement/insight normal, memory normal Skin: normal inspection, normal color, no rash, warm/dry, palpation normal, well hydrated Lymphatic: normal inspection, no adenopathy Current Medications Current Medications Medications (Trade) Dose Ordered Sig/Patricia Route PRN Reason Start Time Stop Time Status Last Admin Dose Admin Norepinephrine Bitartrate 4 mg/ Dextrose 250 ml @ 0 mls/hr Q24H IV 10/10/18 10:15 11/08/18 10:14 GI: Plan Problems: (1) Liver cirrhosis (2) Sepsis (3) Hypoxemia (4) Normocytic anemia Plan CT AP reviewed >> - no biliary ductal dilation - Evidence of hepatic cirrhosis, ?FRIAS - Small amount of ascites - Surgically absent gallbladder not stable for GI procedures obtain chou culture, fu stool culture & cdiff maintain NPO + IVFs anemia work up OB stool r/o GI bleed monitor H&H, prn transfusions ppi broad spectrum abx fu labs, hepatitis panel will consider autoimmune markers will follow with additional recommendations Discussed with Dr. Reynolds. Thank you for this patient referral, we will follow. The patient was seen and examined at bedside and all new and available data was reviewed in the patients chart. I agree with the above findings, impression and plan. (Patient seen earlier today. Signature stamp does not reflect patient encounter time.). - MD Daphne LainezCobre Valley Regional Medical CenterCamila PRODUCTION SUPPORT CONSULTANT Oct 09, 2018 14:21
--- NOTE | 2018-10-09 14:24 | Consultation ---
Consult Note Assessment/Plan DICT # [id number] Renato Delarosa MD Oct 09, 2018 14:24
[2018-10-09] MEDS ORDERED: Albuterol/Ipratropium 3ml neb HHN PRN (14:30)
[2018-10-09] MEDS ORDERED: DiphenhydrAMINE 50mg/ml Inj IVP PRN (14:30)
[2018-10-09] MEDS: Morphine Sulfate 2mg/ml Inj(IV/IM USE ONLY) IVP PRN (14:35)
--- NOTE | 2018-10-09 14:44 | NUR ---
NURSE NOTES: Patient's at bedside, does not have patient's list of medication. Patient does not recall medications also. of patient to bring patient's medication as soon as he can. Addendum: 10/09/18 at 1705 by Annabel Hand RN Amended: Links added.
--- NOTE | 2018-10-09 14:57 | NUR ---
NURSE NOTES: Patient placed on Venturi mask 12 lpm, 50%, currently saturating 95%, tachypneic, respirations even, mild SOB noted. Patient was on 5 lpm NC, saturating 88-92%.
--- NOTE | 2018-10-09 15:00 | NUR ---
NURSE NOTES: Left a message for. Dr. Tanner Akers's office for consult.
[2018-10-09] MEDS: D5NS 1,000 ML IV SCH (16:03)
[2018-10-09 16:38] LABS: CHOLESTEROL 155 MG/DL (< 200); CKMB 65.3 NG/ML (0.0-3.6); CREATINE KINASE 4167 U/L (26-308); HDL CHOLESTEROL 46 MG/DL (40-60); LACTATE DEHYDROGENASE 414 U/L (81-234); TRIGLYCERIDES 155 MG/DL (30-150)
--- NOTE | 2018-10-09 17:01 | NUR ---
NURSE NOTES: Contacted Dr. Montanez, relayed to MD patient consult, Sinus tachycardia 110-120s on the monitor, on levophed drip, troponin is 0.811 then second result 0.542. Relayed to MD EKG results and 2Decho was ordered and done, no results yet. MD ordered for troponin in AM.
--- NOTE | 2018-10-09 17:16 | Cardiology Report ---
APPROVED REPORT EXAM: Two-dimensional and M-mode echocardiogram with Doppler and color Doppler. INDICATION Congestive Heart Failure M-Mode DIMENSIONS IVSd1.4 (0.7-1.1cm)Left Atrium (MM)3.2 (1.6-4.0cm) LVDd5.3 (3.5-5.6cm)Aortic Root3.3 (2.0-3.7cm) PWd1.0 (0.7-1.1cm)Aortic Cusp Exc.1.7 (1.5-2.0cm) IVSs1.6 cm LVDs2.9 (2.5-4.0cm) PWs1.5 cm Normal left ventricular chamber size, systolic function and wall motion Left ventricular ejection fraction estimated to be 60-65 %. No evidence of left ventricular hypertrophy by 2-D. Anterior Echo-free space, may be due to pericardial fat or effusion. All other cardiac chamber sizes are within normal limits. Focal aortic valve sclerosis with adequate cusp excursion. Mildly thickened mitral valve leaflets with normal excursion. Mild mitral annulus and aortic root calcification. Pulmonic valve not well visualized. IVC at size 2.2 cm with physiologic collapse . A color flow and spectral Doppler study was performed and revealed: Trace aortic insufficiency. Normal left ventricular diastolic function . Mild mitral regurgitation. Mild tricuspid regurgitation. Gradient across the pulmonic vavle appears to be increased, Although this was not measured by the tech a gradient of 16 mmhg may be present across this area suggestive either pulmonic stenosis or gradient just after the valve along the bifurcation of the main pulm artery Tricuspid systolic velocities suggests peak right ventricular systolic pressure of 47mmHg,consistent with moderate pulmonary hypertension.however this mearsurment may not be accurate in light of the gradient at the pulm valve level Trace pulmonic regurgitation present .
--- NOTE | 2018-10-09 17:18 | Cardiology Report ---
APPROVED REPORT EKG Measurement Heart [id number] HI [id number] [id number] Sinus tachycardia Otherwise normal ECG
--- NOTE | 2018-10-09 17:50 | NUR ---
NURSE NOTES: Patient transitioned to 14 liter, venturi mask at 50% FiO2.
--- NOTE | 2018-10-09 18:00 | NUR ---
NURSE NOTES: Contacted , Relayed lab results to Dr. Delarosa, D-dimer 8.97, A1c 11.0, ESR-70, Lactic 5.50 trending down, Total Ck- 4167 trending up. Order received for heparin per pharmacy to dose for possible PE, discontinue heparin SQ, aware venous duplex done, pending results. Addendum: 10/09/18 at 2004 by Annabel Hand RN Also informed of , patient still tachypneic at RR-28-30, patient on venti mask, 14Lpm, saturating 95%.
[2018-10-09] MEDS: NovoLOG Insulin Flexpen SUBQ SCH ×2 (18:20→20:34)
--- NOTE | 2018-10-09 18:47 | NUR ---
NURSE NOTES: Relayed to pharmacist Bimal, Dr. Delarosa wants full bolus for heparin drip.
[2018-10-09] MEDS ORDERED: Heparin 5000 units/ml inj IV SCH (19:03)
[2018-10-09] MEDS ORDERED: Heparin 25,000u/D5W 500ml 500 ML IV SCH (19:03)
--- NOTE | 2018-10-09 19:34 | NUR ---
HAND-OFF: Report given to KARI Aaron.
--- NOTE | 2018-10-09 19:40 | NUR ---
NURSE NOTES: PATIENT ALERT, ORIENTED, FOLLOWED COMMANDS, RESPIRATION REGULAR, LABORED, TACHYPNEA NOTED, O2 SATURATION OVER 95% NOTED ON VENTURI MASK 50%, ABDOMEN SOFT, NON TENDER, LARGE ROUND, HYPOACTIVE BOWEL SOUND, F/C INTACT AND PATENT, LIGHT BA COLOR URINE OUTED, TLC TO RIGHT FEMORAL AND PERIPHERAL LINE TO BOTH AC 20G, ONGOING LEVOPHED 30MCG/MIN AND D5NS AT 100ML/HR VIA TLC, MADE LOWER BED POSITION, PROVIDED CALL LIGHT WITHIN REACH, WILL CONTINUE TO MONITOR.
[2018-10-09] MEDS ORDERED: Heparin 5000 units/ml inj SUBQ SCH (21:00)
--- NOTE | 2018-10-09 21:12 | NUR ---
NURSE NOTES: CALLED DR. CAPELLAN REGARDING LOWER BP ON LEVOPHED 30MCG/MIN THAT EXCHANGER WAS AWARE.
[2018-10-09] MEDS: Piperacillin/Tazobactam 3.375 GM in D5W 110 ML IVPB SCH (21:33)
[2018-10-09] MEDS: Norepinephrine Bitartrate 16 MG in Sodium Chloride 484 ML IV SCH (21:34)
--- NOTE | 2018-10-09 22:05 | NUR ---
NURSE NOTES: CALLED DR. CAPELLAN REGARDING SBP BELOW 90MMHG ON LEVOPHED 30MCG/MIN THAT EXCHANGER WAS AWARE.
[2018-10-10] VITALS (63 sets, daily range): BP systolic 59–132; BP diastolic 13–94
--- NOTE | 2018-10-10 00:13 | NUR ---
NURSE NOTES: CALLED DR. THAO, RECEIVED NEW ORDER.
[2018-10-10] MEDS: DOPamine 400mg/250ml 250 ML IV SCH ×3 (00:15→17:29)
[2018-10-10] MEDS ORDERED: Vasopressin 100 UNITS in NS 95 ML IV SCH (00:15)
[2018-10-10] MEDS: D5NS 1,000 ML IV SCH ×3 (00:59→20:30)
[2018-10-10] MEDS ORDERED: VASOPRESSIN IV SCH ×2 (01:00→14:00)
[2018-10-10] MEDS ORDERED: NS IV SCH ×2 (01:00→14:00)
--- NOTE | 2018-10-10 01:15 | Consultation ---
DATE OF CONSULTATION: 10/09/2018 PULMONARY CONSULTATION CONSULTING PHYSICIAN: Joanne Delarosa M.D. REFERRING PHYSICIAN: Michael Kelley M.D. REASON FOR CONSULTATION: Sepsis. HISTORY OF PRESENT ILLNESS: The patient is a very pleasant 58-year-old female with a history of obesity, hypertension, and diabetes, who was brought into the ER after a mechanical fall with confusion and altered mental status. The patient was going to the bathroom to urinate when she fell. There is no history of loss of consciousness, but per her family at bedside, she has been confused. In the ER, she had evidence of multisystem organ failure, abnormal creatinine, LFTs, and troponinemia and was admitted for further evaluation and management. Upon arrival in the ER, she was confused, paler. She was hypotensive. She was given multiple bags of saline. Ultimately, a central line was placed. She was placed on Levophed. She is currently on 4 mcg of Levophed. She had a right subclavian central line placed by Dr. [place]. In the ER, she received broad-spectrum antibiotics including vancomycin and Zosyn. She was also given a shot of Lovenox. PAST MEDICAL HISTORY: Obesity, diabetes, hypertension, and sciatica. PAST SURGICAL HISTORY: Bilateral knee replacements. ALLERGIES: No known drug allergies. MEDICATIONS: Prior to admission medications, glipizide, hydrochlorothiazide, Motrin, metformin, naproxen, and tramadol. SOCIAL HISTORY: No tobacco, alcohol, or drug use. FAMILY HISTORY: Noncontributory. REVIEW OF SYSTEMS: GENERAL: No fevers or chills. She has fatigability. HEAD: No headache, dizziness, or trauma. NECK: No neck pain. CHEST: No cough, congestion, shortness of breath, wheezing, fevers, chills, PND, or orthopnea. HEART: As above. ABDOMEN: No nausea, vomiting, diarrhea, constipation, or abdominal pain. GENITOURINARY: No dysuria, urgency, hesitancy, or frequency. EXTREMITIES: She has back and bilateral lower extremity pain, which is chronic. NEUROLOGICAL: Mechanical fall, but no loss of consciousness. PSYCHIATRIC: No SI, HI, or AVH. PHYSICAL EXAMINATION: VITAL SIGNS: Temperature 97.9, blood pressure 97/32, pulse 112, and saturating 100% on 2 L. GENERAL: She is an obese female, confused. HEENT: Normocephalic and atraumatic. Oropharynx is clear with dry mucous membranes. NECK: Supple without lymphadenopathy or JVP. CHEST: Clear. HEART: Regular. ABDOMEN: Benign. EXTREMITIES: No cyanosis, clubbing, or edema. There are some ecchymoses in bilateral lower extremities. ANCILLARY DATA: On 10/09/2018, CT of the neck - no acute bony trauma. Multilevel degenerative changes noted. On 09/29/2018, CT of the head - negative for acute intracranial bleed or mass effect. Minimal sinus disease is noted. On 10/09/2018, chest x-ray - cardiomegaly and right base atelectasis. On 10/09/2018, CT abdomen and pelvis - limited exam with no contrast, evidence of cirrhosis and ascites, absent gallbladder, atelectatic changes and patchy consolidation at the bases, minimal edema of the bilateral subcutaneous fat, degenerative spondylosis, right hepatic lobe calcification, and Quiroz catheter. LABORATORY DATA: White count 29.4, hemoglobin 9.2, and platelet count 184,000. ABG 7.39/33/85/19/94. Chemistry - sodium 134, potassium 4.1, chloride 99, bicarbonate 19, gap 16, BUN 22, creatinine 2, and glucose 86. Lactic acid 9.7 and then 7.9. Calcium 8.3. Total bilirubin 0.7. AST 196, ALT 165, and alkaline phosphatase 240. Ammonia 49. CK 3455 and CK-MB 45. Troponin 0.811. ProBNP 539. Total protein 5.1, albumin 2.1, globulin 3, and lipase 136. Urinalysis - 2+ protein, 2+ glucose, 1+ blood, and 1+ leukocyte esterase. Toxicology screen is negative. Cultures are pending. ASSESSMENT: The patient is a 58-year-old female with a history of obesity, diabetes, hypertension, hyperlipidemia, and sciatica with chronic low back pain, DDD/DJD, presenting after a mechanical fall with altered mental status and confusion with likely sepsis and multisystem organ failure. The exact source of her sepsis is unknown. There were no infiltrates. No significant urinary tract infection or wounds. Limited CT of the abdomen did not show anything. She has been treated with broad-spectrum antibiotics, workup is in place. She does have some bibasilar infiltrates versus atelectasis noted on chest CT abdomen and pelvis, but does not otherwise appear infected from a respiratory standpoint. PROBLEM LIST: 1. Sepsis. 2. Shock, hypovolemic and distributive. 3. Multisystem organ failure. 4. Lactic acidosis. 5. Anion gap metabolic acidosis. 6. JONNATHAN. 7. Abnormal LFTs, likely shock liver. 8. Abnormal troponin, likely demand ischemia. 9. Obesity. 10. Diabetes. 11. Hypertension. 12. Chronic low back pain and sciatica. TREATMENT PLAN: 1. Admit to ICU. 2. IV fluid hydration. 3. Titrate norepinephrine to keep not greater than 60%. 4. Broad-spectrum antibiotics (vancomycin and Zosyn started). 5. Followup cultures. 6. Followup echocardiogram. 7. Trend troponin, lactic acid, creatinine, and LFTs. 8. We will check a duplex and a D-dimer. 9. NPO until stabilized, then advance diet with aspiration precautions. 10. DVT prophylaxis, heparin subcutaneous. 11. Hold oral antihypoglycemics. 12. Sliding scale insulin. 13. Consultants have been called by primary. 14. 90 minutes of critical care time was spent. Dr. Kelley, thank you for allowing me to assist in the care of your patient. If I may be of any assistance, please do not hesitate to ask. Renato Delarosa M.D. DR: HARDY JOB#: [id number] CC:
[2018-10-10 02:56] LABS: HEMATOCRIT 27.5 % (37.0-47.0); HEMOGLOBIN 8.4 G/DL (12.0-16.0); MEAN CORPUSCULAR VOLUME 100 FL (80-99); PLATELET COUNT 174 K/UL (150-450); RED BLOOD COUNT 2.75 M/UL (4.20-5.40); RED CELL DISTRIBUTION WIDTH 17.2 % (11.6-14.8)
[2018-10-10 02:59] LABS: WHITE BLOOD COUNT 35.5 K/UL (4.8-10.8)
--- NOTE | 2018-10-10 03:05 | NUR ---
NURSE NOTES: PATIENT ANXIOUS, TACHYPNEA NOTED THAT CALLED RT THAT JOSEFA CAME, PUT NON REBREATHE MASK ON AT THIS TIME, WILL CONTINUE TO MONITOR.
[2018-10-10 03:20] LABS: ALANINE AMINOTRANSFERASE 239 U/L (12-78); ALBUMIN 1.9 G/DL (3.4-5.0); ALBUMIN/GLOBULIN RATIO 0.6 (1.0-2.7); ALKALINE PHOSPHATASE 209 U/L (46-116); ANION GAP 14 mmol/L (5-15); ASPARTATE AMINO TRANSFERASE 302 U/L (15-37); BILIRUBIN,TOTAL 0.9 MG/DL (0.2-1.0); BLOOD UREA NITROGEN 29 mg/dL (7-18); CALCIUM 7.1 MG/DL (8.5-10.1); CARBON DIOXIDE 19 MMOL/L (21-32); CHLORIDE 101 MMOL/L (98-107); CREATININE 1.5 MG/DL (0.55-1.30); FERRITIN 96 NG/ML (8-388); POTASSIUM 4.8 MMOL/L (3.5-5.1); SODIUM 133 MMOL/L (136-145)
--- NOTE | 2018-10-10 03:23 | NUR ---
NURSE NOTES: PENDING PTT RESULT STATUS.
--- NOTE | 2018-10-10 03:35 | NUR ---
NURSE NOTES: PTT 106 NOTED, HOLD HEPARIN DRIP FOR 30 MINS PER PROTOCOLS.
[2018-10-10 03:38] LABS: INR 1.6 (0.9-1.1)
--- NOTE | 2018-10-10 03:55 | NUR ---
NURSE NOTES: VANCO RANDOM 12.7 AND [address]BC [address] THAO MADE NEW ORDER, VANCOMYCIN 1GM IVPB, WILL CARRY OUT.
[2018-10-10] MEDS ORDERED: Heparin 25,000u/D5W 500ml 500 ML IV SCH ×3 (04:15→21:15)
[2018-10-10 04:26] LABS: CREATINE KINASE 5210 U/L (26-308)
--- NOTE | 2018-10-10 04:30 | NUR ---
NURSE NOTES: CALLED REGARDING [facility]G'S RESULT THAT RECEIVED INTUBATION ORDER BY CHARGE NURSE.
[2018-10-10 04:37] LABS: IRON 9 ug/dL (50-175); TOTAL IRON BINDING CAPACITY 260 ug/dL (250-450)
[2018-10-10] MEDS ORDERED: Vancomycin 1gm/D5W 275ml IVPB ONE ×2 (05:00)
[2018-10-10 05:03] LABS: PHOSPHORUS 5.3 MG/DL (2.5-4.9)
--- NOTE | 2018-10-10 05:30 | NUR ---
NURSE NOTES: ER DR. ANDRADE CAME, INTUBATION WAS DONE AT 0525AM. ETT 7.0, LIP LINE 23CM AT THIS TIME, VENT SETTING AC14/TV500/FIO2 100%/PEEP 5, O2 SATURATION 100% NOTED.
[2018-10-10 05:33] LABS: % IRON SATURATION 3 % (15-50)
[2018-10-10] MEDS: Piperacillin/Tazobactam 3.375 GM in D5W 110 ML IVPB SCH ×3 (05:40→21:27)
[2018-10-10] MEDS: NovoLOG Insulin Flexpen SUBQ SCH ×4 (06:14→21:29)
--- NOTE | 2018-10-10 06:16 | Emergency Room Report ---
History of Present Illness General Chief Complaint: Multiple Trauma/Fall Source: Patient, Medical Record Present Illness Allergies: Coded Allergies: No Known Allergies (Unverified , 05/06/18) Patient History Last Menstrual Period: unknown Nursing Documentation-[facility] Past Medical History: No History, Except For Hx Hypertension: Yes Hx Diabetes: Yes Physical Exam Vital Signs Date Time Temp Pulse Resp B/P (MAP) Pulse Ox O2 Delivery O2 Flow Rate FiO2 10/09/18 08:26 98.1 61 20 135/114 100 Room Air 10/09/18 08:30 3.0 10/09/18 16:00 50 Procedures Intubation Intubation : Consent: Emergent Time of Intubation: 05:30 Intubation Method: orotracheal Tube Size (cm): 7.0 Medications: Etomidate Breath Sounds after Intubation: equal Intubation Complications: no complications Post Intubation Xray: Yes Attempts: One Patient Tolerated: Well Complications: None Progress intubated with glidescope. Patient tolerated well. Medical Decision Making Diagnostic Impression: Primary Impression: Liver cirrhosis Additional Impressions: Septic shock Pneumonia Last Vital Signs Date Time Temp Pulse Resp B/P (MAP) Pulse Ox O2 Delivery O2 Flow Rate FiO2 10/10/18 06:05 120 22 100 10/10/18 06:03 Mechanical Ventilator 10/10/18 03:30 114/85 (95) 98 10/10/18 00:00 10/10/18 00:00 98.9 Disposition: ADMITTED INPATIENT Condition: Critical Referrals: NON PHYSICIAN (PCP) Deng Garcia MD Oct 10, 2018 06:16
--- NOTE | 2018-10-10 07:28 | NUR ---
HAND-OFF: Report given to KARI CHEN.
[2018-10-10] MEDS: Norepinephrine Bitartrate 16 MG in Sodium Chloride 484 ML IV SCH ×2 (07:31→17:16)
--- NOTE | 2018-10-10 07:35 | NUR ---
NURSE NOTES: Patient received from KARI Aaron. Patient observed to be awake, alert and anxious. Patient responds to questions with head nods yes and no is alert however appears tachypneic with agonal breathing. RT is bedside assessing patient. Patient is being monitored on the child monitor VS 132/56, RR 24, HR 121. Patient is ST on the monitor. Patient is orally intubated from this morning at 0530 with ETT 7.0 AC 14, TV 500 FIO2 100% PEEP 5. Patient received oral care. Upon auscultation, patient has diminished breath sounds BL. Patient has hypoactive breath sounds with a very distended belly. Belly is round and patient complains of discomfort. Patient has a Quiroz with DEC urine output draining to gravity. Patient has a RFEM running Heparin at 15 units, Levo 30 mcgs and D5NS @ 100 ml/hr. Patient has BL soft wrist restraints due to her restlessness and safety. Pulses are palpable and skin is intact. Safety measures are in place with bed in the lowest position, locked, call light within reach and side rails x 3 up. Will continue to monitor and follow plan of care.
--- NOTE | 2018-10-10 08:58 | Diagnostic Imaging Report ---
Indication: Dyspnea. Repositioned endotracheal tube Comparison: 6:00 AM A single view chest radiograph was obtained. Findings: Current study performed 8:00 AM The endotracheal tube was retracted and is about 3 cm above the kelin in good position. The cardiac silhouette remains enlarged. Lung volumes are low and accounting for this pulmonary vascularity is likely normal. No definite infiltrate identified. The stomach is markedly distended. IMPRESSION: Endotracheal tube in good position. No change otherwise. Markedly distended stomach. Cardiomegaly
--- NOTE | 2018-10-10 08:59 | Pulmonolgy Critical Care Note ---
Critical Care - Asmt/Plan Problems: (1) Respiratory disorder with ventilator dependence (2) Septic shock (3) Pneumonia (4) Liver cirrhosis Assessment/Plan: ASSESSMENT: The patient is a 58-year-old female with a history of obesity, diabetes, hypertension, hyperlipidemia, and sciatica with chronic low back pain , DDD/DJD, presenting after a mechanical fall with altered mental status and confusion with likely sepsis and multisystem organ failure. PROBLEM LIST: 1. VDRF 2. Sepsis 3. Shock, hypovolemic and distributive. 4. Multisystem organ failure. 5. Lactic acidosis. 6. Anion gap metabolic acidosis. 7. JONNATHAN. 7. Abnormal LFTs, likely shock liver. 8. Abnormal troponin, likely demand ischemia. 9. Elevated D-dimer and PASP concerning for an acute PE 10. Obesity. 11. Diabetes. 12. Hypertension. 13. Chronic low back pain and sciatica. TREATMENT PLAN: 1. Continue ventilatory support, inc TV to 55 and RR to 24. Titrate down FiO2 and PEEP to keep SaO2 > 90% 2. Repeat ABG pending 3. PRN HHN's 4. Vaso 0.04, titrate NE to keep MAP > 60, may add third agent 4. Continue IVF, D5NS@ 100 5. Vanco/Zosyn (D2) per ID, Add Azithro for atypical coverage, F/U Cx's 6. Continue empiric IVUH, monitor for bleeding, when able will get a CT-A or VQ , F/U final Duplex 7. Trend troponin, lactic acid, creatinine, and LFTs. 8. Place and NGT, decompress the stomach 9. NPO until stabilized, will consider enteral feeds as soon as able 10. DVT prophylaxis: IVUH 11. SSI 12. F/U image consultant recs 13. Prognosis poor 14. 90 minutes of critical care time was spent. D/R RN, @ bedside and consultants Disposition: keep in ICU Time Spent (Minutes): other - 90 Critical Care - Objective Last 24 Hour Vital Signs Date Time Temp Pulse Resp B/P (MAP) Pulse Ox O2 Delivery O2 Flow Rate FiO2 10/10/18 08:00 100 10/10/18 08:00 Endotracheal Tube 10/10/18 07:31 153/75 10/10/18 07:00 122 25 124/81 (95) 100 10/10/18 07:00 100 10/10/18 06:30 121 21 108/13 (44) 99 10/10/18 06:05 120 22 100 10/10/18 06:03 120 26 Mechanical Ventilator 100 10/10/18 06:00 120 23 115/79 (91) 96 10/10/18 06:00 115/79 10/10/18 05:30 117 23 89/57 (68) 99 10/10/18 05:00 121 31 87/44 (58) 99 10/10/18 05:00 87/48 10/10/18 04:30 118 32 91 10/10/18 04:00 98.9 125 27 130/89 (103) 96 10/10/18 04:00 Venturi Mask 10/10/18 03:30 134 28 114/85 (95) 98 10/10/18 03:30 134 28 114/85 (95) 98 10/10/18 03:24 55 10/10/18 03:15 133 29 108/71 (83) 95 10/10/18 03:05 131 10/10/18 03:00 132 25 105/55 (72) 96 10/10/18 02:45 125 28 100/59 (73) 96 10/10/18 02:30 125 26 97/60 (72) 95 10/10/18 02:00 121 25 105/55 (72) 96 10/10/18 01:30 123 28 99/49 (66) 97 10/10/18 01:15 122 27 60/41 (47) 96 10/10/18 01:00 92/42 10/10/18 01:00 124 32 92/41 (58) 96 10/10/18 00:45 124 27 77/48 (58) 96 10/10/18 00:30 125 29 102/42 (62) 95 10/10/18 00:15 89/59 10/10/18 00:00 Venturi Mask 10/10/18 00:00 50 10/10/18 00:00 79/60 10/10/18 00:00 98.9 131 28 79/60 (66) 95 10/09/18 23:30 121 28 97/46 (63) 95 10/09/18 23:02 121 10/09/18 23:00 91/34 10/09/18 23:00 121 28 91/34 (53) 94 10/09/18 22:30 123 29 76/43 (54) 94 10/09/18 22:00 126 30 83/63 (70) 94 10/09/18 22:00 83/63 10/09/18 21:34 82/65 10/09/18 21:30 122 28 82/65 (71) 94 19 21:00 83/47 10/09/18 21:00 121 27 83/47 (59) 95 10/09/18 20:30 120 27 92/63 (73) 95 10/09/18 20:00 Venturi Mask 14.0 55 10/09/18 20:00 99.2 125 28 75/50 (58) 94 10/09/18 20:00 75/50 10/09/18 20:00 Venturi Mask 10/09/18 20:00 98 Venturi Mask 14.0 55 10/09/18 19:30 119 29 71/43 (52) 93 10/09/18 19:27 63/34 10/09/18 19:25 116 27 63/34 (44) 92 10/09/18 19:15 120 33 59/21 (34) 92 10/09/18 19:01 121 10/09/18 19:00 116 28 82/50 (61) 93 10/09/18 18:45 118 30 87/54 (65) 93 10/09/18 18:30 117 29 90/40 (57) 94 10/09/18 18:30 77/48 10/09/18 18:27 118 29 85/47 (60) 94 10/09/18 18:20 117 28 85/46 (59) 94 10/09/18 18:15 85/46 10/09/18 18:15 116 29 79/47 (58) 94 10/09/18 18:00 83/53 10/09/18 18:00 119 26 82/47 (59) 94 10/09/18 17:45 88/48 10/09/18 17:45 120 30 80/48 (59) 93 10/09/18 17:36 118 27 84/34 (51) 93 10/09/18 17:30 119 26 81/53 (62) 91 10/09/18 17:30 84/34 10/09/18 17:15 120 33 97/78 (84) 94 10/09/18 17:00 97/78 10/09/18 17:00 98.0 120 31 187/105 (132) 94 10/09/18 16:30 79/58 10/09/18 16:30 122 30 140/101 (114) 93 10/09/18 16:15 126 31 133/78 (96) 94 10/09/18 16:00 Nasal Cannula 3.0 10/09/18 16:00 12.0 50 10/09/18 16:00 102/57 10/09/18 16:00 125 27 93/16 (41) 95 10/09/18 16:00 126 10/09/18 16:00 119 10/09/18 15:45 120 30 102/57 (72) 95 10/09/18 15:30 102/57 10/09/18 15:30 123 33 109/69 (82) 94 10/09/18 15:15 120 30 95/55 (68) 94 10/09/18 15:00 119 26 99/56 (70) 94 10/09/18 14:45 118 30 97/57 (70) 92 10/09/18 14:44 Nasal Cannula 3.0 10/09/18 14:30 120 27 95/50 (65) 93 10/09/18 14:30 97/57 10/09/18 14:29 119 32 93/55 (68) 93 10/09/18 14:15 118 31 87/54 (65) 91 10/09/18 13:45 98.0 119 30 96/65 (75) 92 10/09/18 13:10 98.0 113 30 97/32 100 Nasal Cannula 3.0 10/09/18 13:07 97/32 10/09/18 13:02 90/48 10/09/18 12:57 91/50 10/09/18 12:52 92/53 10/09/18 12:47 87/54 10/09/18 12:42 83/56 10/09/18 12:37 91/52 10/09/18 12:32 91/59 10/09/18 12:27 84/38 10/09/18 12:22 92/33 10/09/18 12:17 90/49 10/09/18 12:12 90/43 10/09/18 12:07 103/47 10/09/18 12:02 96/65 10/09/18 11:57 98/52 10/09/18 11:52 94/67 10/09/18 11:47 90/39 10/09/18 11:42 92/31 10/09/18 11:37 97/53 10/09/18 11:32 94/77 10/09/18 11:30 97.9 112 31 97/55 100 Nasal Cannula 3.0 10/09/18 11:27 97/55 10/09/18 11:22 86/56 10/09/18 11:17 97/43 10/09/18 11:12 80/63 10/09/18 11:07 91/56 10/09/18 11:02 83/43 10/09/18 10:57 90/65 10/09/18 10:52 92/57 10/09/18 10:47 92/78 10/09/18 10:42 91/75 10/09/18 10:37 100/48 10/09/18 10:32 92/36 10/09/18 10:30 98.1 114 30 86/42 100 Nasal Cannula 3.0 10/09/18 10:27 86/42 10/09/18 10:22 87/52 10/09/18 10:22 87/52 10/09/18 09:30 98.2 110 28 94/68 100 Nasal Cannula 3.0 Status: sedated - intubaed Condition: critical HEENT: atraumatic, normocephalic, other - ETT Neck: other - Supple Lungs: clear - but low volumes Heart: HR/BP unstable Abdomen: soft, non-tender, distended Extremities: no C/C/E, other - R fem CVC, PIV x 2, FC, ETT Micro: Microbiology Date/Time Source Procedure Growth Status 10/10/18 03:10 Stool Clostridium difficile Toxin Assay - Final Complete 10/09/18 15:50 Urine,Clean Catch Urine Culture - Preliminary NO GROWTH Resulted 10/09/18 09:34 Rectum Received Accucheck: 275 Blood Sugars: BS not controlled Critical Care - Subjective ROS Limited/Unobtainable: Yes ICU Day: 2 Intubation Day: 1 Interval Events: Inc pressor requirments this am, 30 mcg NE, added Vaso 0.04 6.92/71/51/14/64 ---> intubated ---> 7.168/38/157/13/98 AC 14 TV 500 100/5, Peak pressures ~ 40 WCT 35, CXs NG D/W radiology, CXR not loaded on PACS - ETT ~ 3 cm above kelin, low lung volumes, no infiltrates + distended stomach LVEF 60-65%, IVC 2.2 cm with collapse, PASP 47 D-dimer elevated, CT-A unable to be done O/N, empirically started on IVUH, stable Condition: critical IV Access: central - R FEM TLC (10/09/18), peripheral - x2 EKG Rhythm: Sinus Tachycardia FI02: 100 Vent Support Breath Rate: 14 Vent Support Mode: AC Vent Tidal Volume: 500 Sputum Amount: Small PEEP: 5.0 PIP: 45 Secretions: Minimal Fluids: D5NS@100 Drips: NE 30 Vaso 0.04 + IVUH I&O: Intake and Output 10/09/18 10/10/18 19:00 07:00 Intake Total 3840.0 ml 2455.478 ml Output Total 195 ml 410 ml Balance 3645.0 ml 2045.478 ml Intake IV Total 3840.0 ml 2455.478 ml Output Urine Total 195 ml 410 ml # Bowel Movements 6 Subjective: JASON CXR: ETT 3 cm above kelin low lung volumes distended stomach ET-Tube: 7.0 ET Position: 20 Labs: Laboratory Tests Test 10/09/18 09:10 10/09/18 10:56 10/09/18 11:43 10/09/18 15:35 Arterial Blood pH 7.393 (7.350-7.450) Arterial Blood Partial Pressure CO2 33.1 mmHg (35.0-45.0) L Arterial Blood Partial Pressure O2 85.6 mmHg (75.0-100.0) Arterial Blood HCO3 19.7 mmol/L (22.0-26.0) L Arterial Blood Oxygen Saturation 94.9 % (95-100) L Arterial Blood Base Excess -4.5 (-2-2) L Ortiz Test Positive Lactic Acid Level 7.90 mmol/L (0.66-2.22) H Ammonia 49 umol/L (11-32) H Activated Partial Thromboplast Time 33 SEC (23-33) Test 10/09/18 15:45 10/09/18 16:45 10/09/18 21:45 10/10/18 00:00 Erythrocyte Sedimentation Rate 70 MM/HR (0-30) H D-Dimer 8.97 mg/L FEU (0.00-0.49) H Hemoglobin A1c 11.0 % (4.3-6.0) H Lactic Acid Level 5.50 mmol/L (0.4-2.0) H 6.90 mmol/L (0.4-2.0) H Lactate Dehydrogenase 414 U/L (81-234) H Total Creatine Kinase 4167 U/L (26-308) H Creatine Kinase MB 65.3 NG/ML (0.0-3.6) H Creatine Kinase MB Relative Index 1.5 Troponin I 0.542 ng/mL (0.000-0.056) C-Reactive Protein, Quantitative 9.9 mg/dL (0.00-0.90) H Triglycerides Level 155 MG/DL (30-150) H Cholesterol Level 155 MG/DL (< 200) LDL Cholesterol 71 mg/dL (<100) HDL Cholesterol 46 MG/DL (40-60) Cholesterol/HDL Ratio 3.4 (3.3-4.4) Thyroid Stimulating Hormone (TSH) 1.206 uiU/mL (0.358-3.740) Cortisol 13.3 UG/DL Stool Occult Blood Pending Test 10/10/18 02:00 10/10/18 03:30 10/10/18 03:32 10/10/18 08:22 White Blood Count 35.5 K/UL (4.8-10.8) *H Red Blood Count 2.75 M/UL (4.20-5.40) L Hemoglobin 8.4 G/DL (12.0-16.0) L Hematocrit 27.5 % (37.0-47.0) L Mean Corpuscular Volume 100 FL (80-99) H Mean Corpuscular Hemoglobin 30.7 PG (27.0-31.0) Mean Corpuscular Hemoglobin Concent 30.7 G/DL (32.0-36.0) L Red Cell Distribution Width 17.2 % (11.6-14.8) H Platelet Count 174 K/UL (150-450) Mean Platelet Volume 7.1 FL (6.5-10.1) Neutrophils (%) (Auto) % (45.0-75.0) Lymphocytes (%) (Auto) % (20.0-45.0) Monocytes (%) (Auto) % (1.0-10.0) Eosinophils (%) (Auto) % (0.0-3.0) Basophils (%) (Auto) % (0.0-2.0) Differential Total Cells Counted 100 Neutrophils % (Manual) 63 % (45-75) Lymphocytes % (Manual) 4 % (20-45) L Monocytes % (Manual) 5 % (1-10) Eosinophils % (Manual) 1 % (0-3) Basophils % (Manual) 0 % (0-2) Band Neutrophils 27 % (0-8) H Platelet Estimate Adequate Platelet Morphology Normal Anisocytosis 1+ Reticulocyte Count 0.2 % (0.0-2.0) Prothrombin Time 16.6 SEC (9.30-11.50) H Prothromb Time International Ratio 1.6 (0.9-1.1) H Activated Partial Thromboplast Time 106 SEC (23-33) H Sodium Level 133 MMOL/L (136-145) L Potassium Level 4.8 MMOL/L (3.5-5.1) Chloride Level 101 MMOL/L (98-107) Carbon Dioxide Level 19 MMOL/L (21-32) L Anion Gap 14 mmol/L (5-15) Blood Urea Nitrogen 29 mg/dL (7-18) H Creatinine 1.5 MG/DL (0.55-1.30) H Estimat Glomerular Filtration Rate 35.7 mL/min (>60) Glucose Level 273 MG/DL (74-106) #H Lactic Acid Level 6.40 mmol/L (0.4-2.0) H Uric Acid 5.5 MG/DL (2.6-7.2) Calcium Level 7.1 MG/DL (8.5-10.1) L Phosphorus Level 5.3 MG/DL (2.5-4.9) H Magnesium Level 1.4 MG/DL (1.8-2.4) L Iron Level 9 ug/dL (50-175) L Total Iron Binding Capacity 260 ug/dL (250-450) Percent Iron Saturation 3 % (15-50) L Unsaturated Iron Binding 251 ug/dL (112-346) Ferritin 96 NG/ML (8-388) Total Bilirubin 0.9 MG/DL (0.2-1.0) Aspartate Amino Transf (AST/SGOT) 302 U/L (15-37) H Alanine Aminotransferase (ALT/SGPT) 239 U/L (12-78) H Alkaline Phosphatase 209 U/L (46-116) H Total Creatine Kinase 5210 U/L (26-308) H Troponin I 0.526 ng/mL (0.000-0.056) Pro-B-Type Natriuretic Peptide 3068 pg/mL (0-125) H Total Protein 5.1 G/DL (6.4-8.2) L Albumin 1.9 G/DL (3.4-5.0) L Globulin 3.2 g/dL Albumin/Globulin Ratio 0.6 (1.0-2.7) L Vitamin B12 Level > 2000 PG/ML (193-986) H Folate 18.0 NG/ML (8.6-58.9) Thyroid Stimulating Hormone (TSH) 0.685 uiU/mL (0.358-3.740) Free Thyroxine 1.41 NG/DL (0.76-1.46) Random Vancomycin Level 12.7 ug/mL Urine Random Sodium < 20 mmol/L (20-110) L Arterial Blood pH 6.928 (7.350-7.450) 7.168 (7.350-7.450) Arterial Blood Partial Pressure CO2 71.9 mmHg (35.0-45.0) *H 38.0 mmHg (35.0-45.0) Arterial Blood Partial Pressure O2 51.9 mmHg (75.0-100.0) L 157.3 mmHg (75.0-100.0) H Arterial Blood HCO3 14.7 mmol/L (22.0-26.0) *L 13.5 mmol/L (22.0-26.0) *L Arterial Blood Oxygen Saturation 64.6 % (95-100) *L 98.6 % (95-100) Arterial Blood Base Excess -17.6 (-2-2) *L -14.1 (-2-2) *L Ortiz Test Positive Positive Renato Delarosa MD Oct 10, 2018 08:59
[2018-10-10] MEDS: Aspirin Baby 81mg NG SCH (09:00)
--- NOTE | 2018-10-10 09:30 | NUR ---
RADIOLOGY DEPT CHEST X-RAY DONE. -P.DYE
--- NOTE | 2018-10-10 10:47 | Diagnostic Imaging Report ---
Indication: Dyspnea Comparison: None A single view chest radiograph was obtained. Findings: Endotracheal tube is low seen at the level the kelin. Cardiomegaly noted. Lung volumes are very low. Stomach distended. IMPRESSION: Endotracheal tube requires repositioning.
[2018-10-10 10:53] LABS: MEAN CORPUSCULAR VOLUME 99 FL (80-99); PLATELET COUNT 171 K/UL (150-450); RED BLOOD COUNT 2.62 M/UL (4.20-5.40); RED CELL DISTRIBUTION WIDTH 17.3 % (11.6-14.8)
[2018-10-10 10:57] LABS: WHITE BLOOD COUNT 30.7 K/UL (4.8-10.8)
[2018-10-10 11:11] LABS: ALANINE AMINOTRANSFERASE 469 U/L (12-78); ALBUMIN 1.8 G/DL (3.4-5.0); ALBUMIN/GLOBULIN RATIO 0.6 (1.0-2.7); ALKALINE PHOSPHATASE 210 U/L (46-116); ANION GAP 18 mmol/L (5-15); ASPARTATE AMINO TRANSFERASE 670 U/L (15-37); BLOOD UREA NITROGEN 29 mg/dL (7-18); CALCIUM 6.8 MG/DL (8.5-10.1); CARBON DIOXIDE 15 MMOL/L (21-32); CHLORIDE 100 MMOL/L (98-107); CREATININE 2.1 MG/DL (0.55-1.30); POTASSIUM 5.1 MMOL/L (3.5-5.1); SODIUM 133 MMOL/L (136-145)
--- NOTE | 2018-10-10 11:30 | NUR ---
RESPIRATORY NOTE: Patient received mechanically ventilated on PB840 with current ordered vent settings. Patient is orally intubated with a size 7.0 ETT tube with 23cm at the lip line that is secure with an anchor fast. There are bilateral decreased breath sounds noted upon auscultation and small amount to thick clear and pink secretions were suctioned via inline suction system without incident. Vent alarms are functional and audible. There is an ambu bag available at the bedside and the vent is connected to a red outlet. Will continue to monitor.
--- NOTE | 2018-10-10 12:30 | NUR ---
NURSE NOTES: Patient observed to be very drowsy and less alert. Patient opens her eyes to her name and responds to questions with head nods yes and no. Patient does not appear in any acute or respiratory distress and patient is afebrile. Patient is being monitored on the head turbine operator VSS with the intervention of pressors. Patient continues to be ST on the monitor. Patient is orally intubated from this morning at 0530 with ETT 7.0 AC 14, TV 500 FIO2 100% PEEP 5. Patient received oral care. Patient has an OGT connected to intermittent suction with very little green stomach content output. Patient has a Quiroz with almost no urine output draining to gravity. Patient has a RFEM running Heparin at 15 units, Levo 30 mcgs Dopamine 10 mcgs and D5NS @ 100 ml/hr. Patient has BL soft wrist restraints due to her restlessness and safety. Pulses are palpable and skin is intact. Safety measures are in place with bed in the lowest position, locked, call light within reach and side rails x 3 up. Will continue to monitor and follow plan of care. Addendum: 10/10/18 at 1701 by GUSTAVO ODOM RN Family is at bedside.
[2018-10-10] MEDS: Heparin 25,000u/D5W 500ml 500 ML IV SCH ×2 (12:54→17:58)
--- NOTE | 2018-10-10 13:26 | NUR ---
[employer] 58 YO FEMALE BIBA FROM HOME TO ER CC MULTIP[place] S/P FALL LAST NIGHT NOW WITH CP SI: RESP FAILURE ETT/VENT SUPPORT,HYPOXIA T. 98.1 HR 61 RR 20 B/P 131/44 AC 14 TV 500 FIO2 100 PEEP 5 WBC 29.4 BUN 29 ESR 70 BUN 22 CR 2.0 AST 196 ALT 165 ALK PHOS 210 TCK 3455 BNP 534 CXR= CARDIOMEGALY ABD/PEL CT= ASCITES, EVIDENCE OF HEPATIC CIRRHOSIS 2D ECHO= EF 60-65% CT HEAD= NEGATIVE IS: IV BOLUS X 1 ZOSYN IV VANCO IV ADMITTED TO ICU @ 1724 ICU STATUS DCP PENDING HOSPITAL STAY
[2018-10-10] MEDS: VASOPRESSIN IV SCH ×2 (14:00→14:01)
[2018-10-10] MEDS: NS IV SCH ×2 (14:00→14:01)
--- NOTE | 2018-10-10 14:50 | Diagnostic Imaging Report ---
Indication: NG tube placement Comparison: None Single view of the abdomen obtained Findings: NG tube is in good position with the proximal port and tip both in the stomach lumen. Distended small bowel large bowel noted in the abdomen. Right femoral line noted. IMPRESSION: NG tube in good position Consider mild ileus/enteritis.
--- NOTE | 2018-10-10 15:09 | Surgery Progress Note ---
Surgery Progress Note Subjective Additional Comments very ill. on multiple pressors. multi organ failure. unstable. prognosis poor. leukocytosis. lactic acidosis Objective Last 24 Hour Vital Signs Date Time Temp Pulse Resp B/P (MAP) Pulse Ox O2 Delivery O2 Flow Rate FiO2 10/10/18 14:42 122 24 100 10/10/18 14:30 122 15 82/37 (52) 100 10/10/18 14:00 126 22 104/49 (67) 100 10/10/18 13:30 123 23 103/49 (67) 100 10/10/18 13:00 125 24 99/47 (64) 100 10/10/18 12:42 125 24 100 10/10/18 12:30 119 24 89/31 (50) 100 10/10/18 12:00 125 10/10/18 12:00 100 10/10/18 12:00 Endotracheal Tube 10/10/18 12:00 99.0 125 24 86/62 (70) 100 10/10/18 11:30 123 24 90/49 (63) 100 10/10/18 11:27 122 24 100 10/10/18 11:00 122 24 78/73 (75) 100 10/10/18 10:44 118 24 100 10/10/18 10:30 120 24 93/49 (64) 100 10/10/18 10:00 120 24 76/52 (60) 100 10/10/18 09:30 126 25 76/49 (58) 97 10/10/18 09:13 73/37 10/10/18 09:00 122 25 75/61 (66) 97 10/10/18 08:30 120 24 59/37 (44) 99 10/10/18 08:00 100 10/10/18 08:00 98.8 122 23 115/94 (101) 98 10/10/18 08:00 122 10/10/18 08:00 Endotracheal Tube 10/10/18 07:31 153/75 10/10/18 07:30 121 24 132/56 (81) 100 10/10/18 07:00 122 25 124/81 (95) 100 10/10/18 07:00 100 10/10/18 06:45 108 21 100 10/10/18 06:30 121 21 108/13 (44) 99 10/10/18 06:05 120 22 100 10/10/18 06:03 120 26 Mechanical Ventilator 100 10/10/18 06:00 120 23 115/79 (91) 96 10/10/18 06:00 115/79 10/10/18 05:30 117 23 89/57 (68) 99 10/10/18 05:00 121 31 87/44 (58) 99 10/10/18 05:00 87/48 10/10/18 04:30 118 32 91 10/10/18 04:00 98.9 125 27 130/89 (103) 96 10/10/18 04:00 Venturi Mask 10/10/18 03:30 134 28 114/85 (95) 98 10/10/18 03:30 134 28 114/85 (95) 98 10/10/18 03:24 55 10/10/18 03:15 133 29 108/71 (83) 95 10/10/18 03:05 131 10/10/18 03:00 132 25 105/55 (72) 96 10/10/18 02:45 125 28 100/59 (73) 96 10/10/18 02:30 125 26 97/60 (72) 95 10/10/18 02:00 121 25 105/55 (72) 96 10/10/18 01:30 123 28 99/49 (66) 97 10/10/18 01:15 122 27 60/41 (47) 96 10/10/18 01:00 92/42 10/10/18 01:00 124 32 92/41 (58) 96 10/10/18 00:45 124 27 77/48 (58) 96 10/10/18 00:30 125 29 102/42 (62) 95 10/10/18 00:15 89/59 10/10/18 00:00 Venturi Mask 10/10/18 00:00 50 10/10/18 00:00 79/60 10/10/18 00:00 98.9 131 28 79/60 (66) 95 10/09/18 23:30 121 28 97/46 (63) 95 10/09/18 23:02 121 10/09/18 23:00 91/34 10/09/18 23:00 121 28 91/34 (53) 94 10/09/18 22:30 123 29 76/43 (54) 94 2/26/19 22:00 126 30 83/63 (70) 94 10/09/18 22:00 83/63 10/09/18 21:34 82/65 10/09/18 21:30 122 28 82/65 (71) 94 10/09/18 21:00 83/47 10/09/18 21:00 121 27 83/47 (59) 95 10/09/18 20:30 120 27 92/63 (73) 95 10/09/18 20:00 Venturi Mask 14.0 55 10/09/18 20:00 99.2 125 28 75/50 (58) 94 10/09/18 20:00 75/50 10/09/18 20:00 Venturi Mask 10/09/18 20:00 98 Venturi Mask 14.0 55 10/09/18 19:30 119 29 71/43 (52) 93 10/09/18 19:27 63/34 10/09/18 19:25 116 27 63/34 (44) 92 10/09/18 19:15 120 33 59/21 (34) 92 10/09/18 19:01 121 10/09/18 19:00 116 28 82/50 (61) 93 10/09/18 18:45 118 30 87/54 (65) 93 10/09/18 18:30 117 29 90/40 (57) 94 10/09/18 18:30 77/48 10/09/18 18:27 118 29 85/47 (60) 94 10/09/18 18:20 117 28 85/46 (59) 94 10/09/18 18:15 85/46 10/09/18 18:15 116 29 79/47 (58) 94 10/09/18 18:00 83/53 10/09/18 18:00 119 26 82/47 (59) 94 10/09/18 17:45 88/48 10/09/18 17:45 120 30 80/48 (59) 93 10/09/18 17:36 118 27 84/34 (51) 93 10/09/18 17:30 119 26 81/53 (62) 91 10/09/18 17:30 84/34 10/09/18 17:15 120 33 97/78 (84) 94 10/09/18 17:00 97/78 10/09/18 17:00 98.0 120 31 187/105 (132) 94 10/09/18 16:30 79/58 10/09/18 16:30 122 30 140/101 (114) 93 10/09/18 16:15 126 31 133/78 (96) 94 10/09/18 16:00 Nasal Cannula 3.0 10/09/18 16:00 12.0 50 10/09/18 16:00 102/57 10/09/18 16:00 125 27 93/16 (41) 95 10/09/18 16:00 126 10/09/18 16:00 119 10/09/18 15:45 120 30 102/57 (72) 95 10/09/18 15:30 102/57 10/09/18 15:30 123 33 109/69 (82) 94 10/09/18 15:15 120 30 95/55 (68) 94 I&O Intake and Output 10/09/18 10/10/18 19:00 07:00 Intake Total 3840.0 ml 2455.478 ml Output Total 195 ml 410 ml Balance 3645.0 ml 2045.478 ml Intake IV Total 3840.0 ml 2455.478 ml Output Urine Total 195 ml 410 ml # Bowel Movements 6 Dressing: other Wound: other Drains: other Cardiovascular: other Respiratory: decreased breath sounds Abdomen: soft, distended, decreased bowel sounds Extremities: other Laboratory Tests Test 10/09/18 15:35 10/09/18 15:45 10/09/18 16:45 10/09/18 21:45 Activated Partial Thromboplast Time 33 SEC (23-33) Erythrocyte Sedimentation Rate 70 MM/HR (0-30) H D-Dimer 8.97 mg/L FEU (0.00-0.49) H Hemoglobin A1c 11.0 % (4.3-6.0) H Lactic Acid Level 5.50 mmol/L (0.4-2.0) H 6.90 mmol/L (0.4-2.0) H Lactate Dehydrogenase 414 U/L (81-234) H Total Creatine Kinase 4167 U/L (26-308) H Creatine Kinase MB 65.3 NG/ML (0.0-3.6) H Creatine Kinase MB Relative Index 1.5 Troponin I 0.542 ng/mL (0.000-0.056) C-Reactive Protein, Quantitative 9.9 mg/dL (0.00-0.90) H Triglycerides Level 155 MG/DL (30-150) H Cholesterol Level 155 MG/DL (< 200) LDL Cholesterol 71 mg/dL (<100) HDL Cholesterol 46 MG/DL (40-60) Cholesterol/HDL Ratio 3.4 (3.3-4.4) Thyroid Stimulating Hormone (TSH) 1.206 uiU/mL (0.358-3.740) Cortisol 13.3 UG/DL Test 10/10/18 00:00 10/10/18 02:00 10/10/18 03:30 10/10/18 03:32 Stool Occult Blood Positive (NEGATIVE) White Blood Count 35.5 K/UL (4.8-10.8) *H Red Blood Count 2.75 M/UL (4.20-5.40) L Hemoglobin 8.4 G/DL (12.0-16.0) L Hematocrit 27.5 % (37.0-47.0) L Mean Corpuscular Volume 100 FL (80-99) H Mean Corpuscular Hemoglobin 30.7 PG (27.0-31.0) Mean Corpuscular Hemoglobin Concent 30.7 G/DL (32.0-36.0) L Red Cell Distribution Width 17.2 % (11.6-14.8) H Platelet Count 174 K/UL (150-450) Mean Platelet Volume 7.1 FL (6.5-10.1) Neutrophils (%) (Auto) % (45.0-75.0) Lymphocytes (%) (Auto) % (20.0-45.0) Monocytes (%) (Auto) % (1.0-10.0) Eosinophils (%) (Auto) % (0.0-3.0) Basophils (%) (Auto) % (0.0-2.0) Differential Total Cells Counted 100 Neutrophils % (Manual) 63 % (45-75) Lymphocytes % (Manual) 4 % (20-45) L Monocytes % (Manual) 5 % (1-10) Eosinophils % (Manual) 1 % (0-3) Basophils % (Manual) 0 % (0-2) Band Neutrophils 27 % (0-8) H Platelet Estimate Adequate Platelet Morphology Normal Anisocytosis 1+ Reticulocyte Count 0.2 % (0.0-2.0) Prothrombin Time 16.6 SEC (9.30-11.50) H Prothromb Time International Ratio 1.6 (0.9-1.1) H Activated Partial Thromboplast Time 106 SEC (23-33) H Sodium Level 133 MMOL/L (136-145) L Potassium Level 4.8 MMOL/L (3.5-5.1) Chloride Level 101 MMOL/L (98-107) Carbon Dioxide Level 19 MMOL/L (21-32) L Anion Gap 14 mmol/L (5-15) Blood Urea Nitrogen 29 mg/dL (7-18) H Creatinine 1.5 MG/DL (0.55-1.30) H Estimat Glomerular Filtration Rate 35.7 mL/min (>60) Glucose Level 273 MG/DL (74-106) #H Lactic Acid Level 6.40 mmol/L (0.4-2.0) H Uric Acid 5.5 MG/DL (2.6-7.2) Calcium Level 7.1 MG/DL (8.5-10.1) L Phosphorus Level 5.3 MG/DL (2.5-4.9) H Magnesium Level 1.4 MG/DL (1.8-2.4) L Iron Level 9 ug/dL (50-175) L Total Iron Binding Capacity 260 ug/dL (250-450) Percent Iron Saturation 3 % (15-50) L Unsaturated Iron Binding 251 ug/dL (112-346) Ferritin 96 NG/ML (8-388) Total Bilirubin 0.9 MG/DL (0.2-1.0) Aspartate Amino Transf (AST/SGOT) 302 U/L (15-37) H Alanine Aminotransferase (ALT/SGPT) 239 U/L (12-78) H Alkaline Phosphatase 209 U/L (46-116) H Total Creatine Kinase 5210 U/L (26-308) H Troponin I 0.526 ng/mL (0.000-0.056) Pro-B-Type Natriuretic Peptide 3068 pg/mL (0-125) H Total Protein 5.1 G/DL (6.4-8.2) L Albumin 1.9 G/DL (3.4-5.0) L Globulin 3.2 g/dL Albumin/Globulin Ratio 0.6 (1.0-2.7) L Vitamin B12 Level > 2000 PG/ML (193-986) H Folate 18.0 NG/ML (8.6-58.9) Thyroid Stimulating Hormone (TSH) 0.685 uiU/mL (0.358-3.740) Free Thyroxine 1.41 NG/DL (0.76-1.46) Random Vancomycin Level 12.7 ug/mL Urine Random Sodium < 20 mmol/L (20-110) L Arterial Blood pH 6.928 (7.350-7.450) Arterial Blood Partial Pressure CO2 71.9 mmHg (35.0-45.0) *H Arterial Blood Partial Pressure O2 51.9 mmHg (75.0-100.0) L Arterial Blood HCO3 14.7 mmol/L (22.0-26.0) *L Arterial Blood Oxygen Saturation 64.6 % (95-100) *L Arterial Blood Base Excess -17.6 (-2-2) *L Ortiz Test Positive Test 10/10/18 08:22 10/10/18 10:15 Arterial Blood pH 7.168 (7.350-7.450) Arterial Blood Partial Pressure CO2 38.0 mmHg (35.0-45.0) Arterial Blood Partial Pressure O2 157.3 mmHg (75.0-100.0) H Arterial Blood HCO3 13.5 mmol/L (22.0-26.0) *L Arterial Blood Oxygen Saturation 98.6 % (95-100) Arterial Blood Base Excess -14.1 (-2-2) *L Ortiz Test Positive White Blood Count 30.7 K/UL (4.8-10.8) *H Red Blood Count 2.62 M/UL (4.20-5.40) L Hemoglobin 8.0 G/DL (12.0-16.0) L Hematocrit 26.0 % (37.0-47.0) L Mean Corpuscular Volume 99 FL (80-99) Mean Corpuscular Hemoglobin 30.5 PG (27.0-31.0) Mean Corpuscular Hemoglobin Concent 30.7 G/DL (32.0-36.0) L Red Cell Distribution Width 17.3 % (11.6-14.8) H Platelet Count 171 K/UL (150-450) Mean Platelet Volume 6.0 FL (6.5-10.1) L Neutrophils (%) (Auto) % (45.0-75.0) Lymphocytes (%) (Auto) % (20.0-45.0) Monocytes (%) (Auto) % (1.0-10.0) Eosinophils (%) (Auto) % (0.0-3.0) Basophils (%) (Auto) % (0.0-2.0) Differential Total Cells Counted 100 Neutrophils % (Manual) 74 % (45-75) Lymphocytes % (Manual) 7 % (20-45) L Monocytes % (Manual) 8 % (1-10) Eosinophils % (Manual) 0 % (0-3) Basophils % (Manual) 0 % (0-2) Band Neutrophils 11 % (0-8) H Platelet Estimate Adequate Platelet Morphology Normal Hypochromasia 1+ Anisocytosis 1+ Activated Partial Thromboplast Time > 150 SEC (23-33) *H Sodium Level 133 MMOL/L (136-145) L Potassium Level 5.1 MMOL/L (3.5-5.1) Chloride Level 100 MMOL/L (98-107) Carbon Dioxide Level 15 MMOL/L (21-32) L Anion Gap 18 mmol/L (5-15) H Blood Urea Nitrogen 29 mg/dL (7-18) H Creatinine 2.1 MG/DL (0.55-1.30) H Estimat Glomerular Filtration Rate 24.2 mL/min (>60) Glucose Level 239 MG/DL (74-106) H Lactic Acid Level 7.10 mmol/L (0.4-2.0) H Calcium Level 6.8 MG/DL (8.5-10.1) L Total Bilirubin 1.0 MG/DL (0.2-1.0) Aspartate Amino Transf (AST/SGOT) 670 U/L (15-37) H Alanine Aminotransferase (ALT/SGPT) 469 U/L (12-78) H Alkaline Phosphatase 210 U/L (46-116) H Ammonia 39 umol/L (11-32) H Troponin I 0.898 ng/mL (0.000-0.056) Total Protein 4.8 G/DL (6.4-8.2) L Albumin 1.8 G/DL (3.4-5.0) L Globulin 3.0 g/dL Albumin/Globulin Ratio 0.6 (1.0-2.7) L Carcinoembryonic Antigen Pending Hepatitis A IgM Antibody Pending Hepatitis B Surface Antigen Pending Hepatitis B Core IgM Antibody Pending Hepatitis C Antibody Pending Plan Problems: (1) Multiple injuries due to trauma (2) Sepsis Assessment & Plan: Labs noted lactic acidosis improved with resuscitation CT findings: Limited assessment of the GI tract, due to lack of enteric contrast administration. Exam is also limited due to patient motion artifact and lack of IV contrast administration Evidence of hepatic cirrhosis Small amount of ascites, likely related to the above Surgically absent gallbladder Bilateral basilar pulmonary parenchymal atelectatic changes and possible patchy consolidation Minimal edema of the bilateral flank subcutaneous fat Other findings as noted, including degenerative spondylosis, right hepatic lobe capsular calcification, Quiroz catheter declining. multiorgan failure. decompensated liver cirrhosis. prognosis very guarded. cont with ICU care -npo -iv fluids -iv abx -trend labs will follow with recs thank you (3) Liver cirrhosis Josh Samuel Oct 10, 2018 15:09
--- NOTE | 2018-10-10 16:18 | Cardiac Electrophysiology PN ---
Subjective Subjective [id number] Objective Last 24 Hour Vital Signs Date Time Temp Pulse Resp B/P (MAP) Pulse Ox O2 Delivery O2 Flow Rate FiO2 10/10/18 15:00 122 24 112/46 (68) 100 10/10/18 14:42 122 24 100 10/10/18 14:30 122 15 82/37 (52) 100 10/10/18 14:00 126 22 104/49 (67) 100 10/10/18 13:30 123 23 103/49 (67) 100 10/10/18 13:00 125 24 99/47 (64) 100 10/10/18 12:42 125 24 100 10/10/18 12:30 119 24 89/31 (50) 100 10/10/18 12:00 125 10/10/18 12:00 100 10/10/18 12:00 Endotracheal Tube 10/10/18 12:00 99.0 125 24 86/62 (70) 100 10/10/18 11:30 123 24 90/49 (63) 100 10/10/18 11:27 122 24 100 10/10/18 11:00 122 24 78/73 (75) 100 10/10/18 10:44 118 24 100 10/10/18 10:30 120 24 93/49 (64) 100 10/10/18 10:00 120 24 76/52 (60) 100 10/10/18 09:30 126 25 76/49 (58) 97 10/10/18 09:13 73/37 10/10/18 09:00 122 25 75/61 (66) 97 10/10/18 08:30 120 24 59/37 (44) 99 10/10/18 08:00 100 10/10/18 08:00 98.8 122 23 115/94 (101) 98 10/10/18 08:00 122 10/10/18 08:00 Endotracheal Tube 10/10/18 07:31 153/75 10/10/18 07:30 121 24 132/56 (81) 100 10/10/18 07:00 122 25 124/81 (95) 100 10/10/18 07:00 100 10/10/18 06:45 108 21 100 10/10/18 06:30 121 21 108/13 (44) 99 10/10/18 06:05 120 22 100 10/10/18 06:03 120 26 Mechanical Ventilator 100 10/10/18 06:00 120 23 115/79 (91) 96 10/10/18 06:00 115/79 10/10/18 05:30 117 23 89/57 (68) 99 10/10/18 05:00 121 31 87/44 (58) 99 10/10/18 05:00 87/48 10/10/18 04:30 118 32 91 10/10/18 04:00 98.9 125 27 130/89 (103) 96 10/10/18 04:00 Venturi Mask 10/10/18 03:30 134 28 114/85 (95) 98 10/10/18 03:30 134 28 114/85 (95) 98 10/10/18 03:24 55 10/10/18 03:15 133 29 108/71 (83) 95 10/10/18 03:05 131 10/10/18 03:00 132 25 105/55 (72) 96 10/10/18 02:45 125 28 100/59 (73) 96 10/10/18 02:30 125 26 97/60 (72) 95 10/10/18 02:00 121 25 105/55 (72) 96 10/10/18 01:30 123 28 99/49 (66) 97 10/10/18 01:15 122 27 60/41 (47) 96 10/10/18 01:00 92/42 10/10/18 01:00 124 32 92/41 (58) 96 10/10/18 00:45 124 27 77/48 (58) 96 10/10/18 00:30 125 29 102/42 (62) 95 10/10/18 00:15 89/59 10/10/18 00:00 Venturi Mask 10/10/18 00:00 50 10/10/18 00:00 79/60 10/10/18 00:00 98.9 131 28 79/60 (66) 95 10/09/18 23:30 121 28 97/46 (63) 95 10/09/18 23:02 121 10/09/18 23:00 91/34 10/09/18 23:00 121 28 91/34 (53) 94 10/09/18 22:30 123 29 76/43 (54) 94 10/09/18 22:00 126 30 83/63 (70) 94 10/09/18 22:00 83/63 10/09/18 21:34 82/65 10/09/18 21:30 122 28 82/65 (71) 94 10/09/18 21:00 83/47 10/09/18 21:00 121 27 83/47 (59) 95 10/09/18 20:30 120 27 92/63 (73) 95 10/09/18 20:00 Venturi Mask 14.0 55 10/09/18 20:00 99.2 125 28 75/50 (58) 94 10/09/18 20:00 75/50 10/09/18 20:00 Venturi Mask 10/09/18 20:00 98 Venturi Mask 14.0 55 10/09/18 19:30 119 29 71/43 (52) 93 10/09/18 19:27 63/34 10/09/18 19:25 116 27 63/34 (44) 92 10/09/18 19:15 120 33 59/21 (34) 92 10/09/18 19:01 121 10/09/18 19:00 116 28 82/50 (61) 93 10/09/18 18:45 118 30 87/54 (65) 93 10/09/18 18:30 117 29 90/40 (57) 94 10/09/18 18:30 77/48 10/09/18 18:27 118 29 85/47 (60) 94 10/09/18 18:20 117 28 85/46 (59) 94 10/09/18 18:15 85/46 10/09/18 18:15 116 29 79/47 (58) 94 10/09/18 18:00 83/53 10/09/18 18:00 119 26 82/47 (59) 94 10/09/18 17:45 88/48 10/09/18 17:45 120 30 80/48 (59) 93 10/09/18 17:36 118 27 84/34 (51) 93 10/09/18 17:30 119 26 81/53 (62) 91 10/09/18 17:30 84/34 10/09/18 17:15 120 33 97/78 (84) 94 10/09/18 17:00 97/78 10/09/18 17:00 98.0 120 31 187/105 (132) 94 2/26/19 16:30 79/58 10/09/18 16:30 122 30 140/101 (114) 93 Intake and Output 10/09/18 10/10/18 19:00 07:00 Intake Total 3840.0 ml 2455.478 ml Output Total 195 ml 410 ml Balance 3645.0 ml 2045.478 ml Intake IV Total 3840.0 ml 2455.478 ml Output Urine Total 195 ml 410 ml # Bowel Movements 6 Laboratory Tests Test 10/09/18 16:45 10/09/18 21:45 10/10/18 00:00 10/10/18 02:00 Cortisol 13.3 UG/DL Lactic Acid Level 6.90 mmol/L (0.4-2.0) H 6.40 mmol/L (0.4-2.0) H Stool Occult Blood Positive (NEGATIVE) White Blood Count 35.5 K/UL (4.8-10.8) *H Red Blood Count 2.75 M/UL (4.20-5.40) L Hemoglobin 8.4 G/DL (12.0-16.0) L Hematocrit 27.5 % (37.0-47.0) L Mean Corpuscular Volume 100 FL (80-99) H Mean Corpuscular Hemoglobin 30.7 PG (27.0-31.0) Mean Corpuscular Hemoglobin Concent 30.7 G/DL (32.0-36.0) L Red Cell Distribution Width 17.2 % (11.6-14.8) H Platelet Count 174 K/UL (150-450) Mean Platelet Volume 7.1 FL (6.5-10.1) Neutrophils (%) (Auto) % (45.0-75.0) Lymphocytes (%) (Auto) % (20.0-45.0) Monocytes (%) (Auto) % (1.0-10.0) Eosinophils (%) (Auto) % (0.0-3.0) Basophils (%) (Auto) % (0.0-2.0) Differential Total Cells Counted 100 Neutrophils % (Manual) 63 % (45-75) Lymphocytes % (Manual) 4 % (20-45) L Monocytes % (Manual) 5 % (1-10) Eosinophils % (Manual) 1 % (0-3) Basophils % (Manual) 0 % (0-2) Band Neutrophils 27 % (0-8) H Platelet Estimate Adequate Platelet Morphology Normal Anisocytosis 1+ Reticulocyte Count 0.2 % (0.0-2.0) Prothrombin Time 16.6 SEC (9.30-11.50) H Prothromb Time International Ratio 1.6 (0.9-1.1) H Activated Partial Thromboplast Time 106 SEC (23-33) H Sodium Level 133 MMOL/L (136-145) L Potassium Level 4.8 MMOL/L (3.5-5.1) Chloride Level 101 MMOL/L (98-107) Carbon Dioxide Level 19 MMOL/L (21-32) L Anion Gap 14 mmol/L (5-15) Blood Urea Nitrogen 29 mg/dL (7-18) H Creatinine 1.5 MG/DL (0.55-1.30) H Estimat Glomerular Filtration Rate 35.7 mL/min (>60) Glucose Level 273 MG/DL (74-106) #H Uric Acid 5.5 MG/DL (2.6-7.2) Calcium Level 7.1 MG/DL (8.5-10.1) L Phosphorus Level 5.3 MG/DL (2.5-4.9) H Magnesium Level 1.4 MG/DL (1.8-2.4) L Iron Level 9 ug/dL (50-175) L Total Iron Binding Capacity 260 ug/dL (250-450) Percent Iron Saturation 3 % (15-50) L Unsaturated Iron Binding 251 ug/dL (112-346) Ferritin 96 NG/ML (8-388) Total Bilirubin 0.9 MG/DL (0.2-1.0) Aspartate Amino Transf (AST/SGOT) 302 U/L (15-37) H Alanine Aminotransferase (ALT/SGPT) 239 U/L (12-78) H Alkaline Phosphatase 209 U/L (46-116) H Total Creatine Kinase 5210 U/L (26-308) H Troponin I 0.526 ng/mL (0.000-0.056) Pro-B-Type Natriuretic Peptide 3068 pg/mL (0-125) H Total Protein 5.1 G/DL (6.4-8.2) L Albumin 1.9 G/DL (3.4-5.0) L Globulin 3.2 g/dL Albumin/Globulin Ratio 0.6 (1.0-2.7) L Vitamin B12 Level > 2000 PG/ML (193-986) H Folate 18.0 NG/ML (8.6-58.9) Thyroid Stimulating Hormone (TSH) 0.685 uiU/mL (0.358-3.740) Free Thyroxine 1.41 NG/DL (0.76-1.46) Random Vancomycin Level 12.7 ug/mL Test 10/10/18 03:30 10/10/18 03:32 10/10/18 08:22 10/10/18 10:15 Urine Random Sodium < 20 mmol/L (20-110) L Arterial Blood pH 6.928 (7.350-7.450) 7.168 (7.350-7.450) Arterial Blood Partial Pressure CO2 71.9 mmHg (35.0-45.0) *H 38.0 mmHg (35.0-45.0) Arterial Blood Partial Pressure O2 51.9 mmHg (75.0-100.0) L 157.3 mmHg (75.0-100.0) H Arterial Blood HCO3 14.7 mmol/L (22.0-26.0) *L 13.5 mmol/L (22.0-26.0) *L Arterial Blood Oxygen Saturation 64.6 % (95-100) *L 98.6 % (95-100) Arterial Blood Base Excess -17.6 (-2-2) *L -14.1 (-2-2) *L Ortiz Test Positive Positive White Blood Count 30.7 K/UL (4.8-10.8) *H Red Blood Count 2.62 M/UL (4.20-5.40) L Hemoglobin 8.0 G/DL (12.0-16.0) L Hematocrit 26.0 % (37.0-47.0) L Mean Corpuscular Volume 99 FL (80-99) Mean Corpuscular Hemoglobin 30.5 PG (27.0-31.0) Mean Corpuscular Hemoglobin Concent 30.7 G/DL (32.0-36.0) L Red Cell Distribution Width 17.3 % (11.6-14.8) H Platelet Count 171 K/UL (150-450) Mean Platelet Volume 6.0 FL (6.5-10.1) L Neutrophils (%) (Auto) % (45.0-75.0) Lymphocytes (%) (Auto) % (20.0-45.0) Monocytes (%) (Auto) % (1.0-10.0) Eosinophils (%) (Auto) % (0.0-3.0) Basophils (%) (Auto) % (0.0-2.0) Differential Total Cells Counted 100 Neutrophils % (Manual) 74 % (45-75) Lymphocytes % (Manual) 7 % (20-45) L Monocytes % (Manual) 8 % (1-10) Eosinophils % (Manual) 0 % (0-3) Basophils % (Manual) 0 % (0-2) Band Neutrophils 11 % (0-8) H Platelet Estimate Adequate Platelet Morphology Normal Hypochromasia 1+ Anisocytosis 1+ Activated Partial Thromboplast Time > 150 SEC (23-33) *H Sodium Level 133 MMOL/L (136-145) L Potassium Level 5.1 MMOL/L (3.5-5.1) Chloride Level 100 MMOL/L (98-107) Carbon Dioxide Level 15 MMOL/L (21-32) L Anion Gap 18 mmol/L (5-15) H Blood Urea Nitrogen 29 mg/dL (7-18) H Creatinine 2.1 MG/DL (0.55-1.30) H Estimat Glomerular Filtration Rate 24.2 mL/min (>60) Glucose Level 239 MG/DL (74-106) H Lactic Acid Level 7.10 mmol/L (0.4-2.0) H Calcium Level 6.8 MG/DL (8.5-10.1) L Total Bilirubin 1.0 MG/DL (0.2-1.0) Aspartate Amino Transf (AST/SGOT) 670 U/L (15-37) H Alanine Aminotransferase (ALT/SGPT) 469 U/L (12-78) H Alkaline Phosphatase 210 U/L (46-116) H Ammonia 39 umol/L (11-32) H Troponin I 0.898 ng/mL (0.000-0.056) Total Protein 4.8 G/DL (6.4-8.2) L Albumin 1.8 G/DL (3.4-5.0) L Globulin 3.0 g/dL Albumin/Globulin Ratio 0.6 (1.0-2.7) L Carcinoembryonic Antigen Pending Hepatitis A IgM Antibody Pending Hepatitis B Surface Antigen Pending Hepatitis B Core IgM Antibody Pending Hepatitis C Antibody Pending Microbiology Date/Time Source Procedure Growth Status 10/10/18 03:10 Stool Clostridium difficile Toxin Assay - Final Complete 10/09/18 15:50 Urine,Clean Catch Urine Culture - Preliminary NO GROWTH Resulted 10/09/18 09:34 Rectum Received Sean Montanez MD Oct 10, 2018 16:18
--- NOTE | 2018-10-10 16:35 | NUR ---
NURSE NOTES: Patient observed to be lethargic now. Patient continues to opens when prompted. Patient does not appear in any acute distress. Family is bedside. Patient is being monitored on the repairer maintenance building VSS with the intervention of pressors. Patient is ST on the monitor. Patient is orally intubated with ETT 7.0 with vent AC 24, TV 550 FIO2 100% PEEP 5. Patient received oral care. Patient has an OGT connected to intermittent suction with green stomach content draining as output. Patient has a Quiroz increasing urine output draining to gravity. Patient has a RFEM running Heparin at 15 units, Levo 30 mcgs Dopamine 10 mcgs and D5NS @ 100 ml/hr. Patient has BL soft wrist restraints due for her safety. Pulses are palpable and skin is intact. Safety measures are in place with bed in the lowest position, locked, call light within reach and side rails x 3 up. Will continue to monitor and follow plan of care.
--- NOTE | 2018-10-10 17:15 | NUR ---
NURSE NOTES: Patient was cleaned, linens changed and repositioned for comfort. Patient is with VSS and not in any acute distress.
--- NOTE | 2018-10-10 17:32 | Cardiology Report ---
APPROVED REPORT EKG Measurement Heart [id number] Sinus tachycardia Otherwise normal ECG
--- NOTE | 2018-10-10 17:43 | Consultation ---
Consult Note Consult Note asked to eval for renal failure and oliguria Patient initially presents by paramedics with what they reported is a fall Mechanical nature Upon arrival and general visualization of the patient she appears confused and ill With pallor Patient herself is confused And history was limited from the patient Family presents and they report that the patient was at good [facility] 3 weeks ago with hip pain imaging studies were negative The now reports that over the past 3 weeks the patient has been showing some signs of confusion Family reports that last night she complained of abdominal pain Also had diarrhea Upon initial evaluation patient is also found to be hypoxic and in critical condition No Known Allergies (Unverified , 05/06/18) Past Medical History: No History, Except For Hx Hypertension: Yes Hx Diabetes: Yes seen in ICU on multiple pressors Vented Assessment/Plan - Acute Oliguric Renal Failure - Respiratory disorder with ventilator dependence - Septic shock , Leukocytosis - Pneumonia - Liver cirrhosis - Obese - Anemia Hemodynamic support Pulmunary support Monitor renal parameters avoid nephrotoxics as best as possible per orders Alex Cueto MD Oct 10, 2018 17:43
[2018-10-10] MEDS ORDERED: NS 275ml ONE (18:09)
[2018-10-10] MEDS ORDERED: D5NS 1000ml IV ONE (18:09)
[2018-10-10] MEDS ORDERED: Tubing IV Secondary IV ONE (18:09)
--- NOTE | 2018-10-10 18:15 | Consultation ---
DATE OF CONSULTATION: 10/10/2018 CARDIAC ELECTROPHYSIOLOGY CONSULTATION CONSULTING PHYSICIAN: Sean Montanez M.D. REFERRING PHYSICIAN: Michael Kelley M.D. REASON FOR CONSULTATION: Hypotension. HISTORY OF PRESENT ILLNESS: The patient is a 58-year-old lady with history of hypertension, diabetes, and morbid obesity, was brought to the emergency room after a mechanical fall with altered mental status and confusion. The patient was going to the bathroom to urinate when she had a fall. In the emergency room, the patient was found to have multiple organ failure with abnormal liver function tests, renal failure, and elevated troponin. In the ER, the patient became hypotensive, on multiple bags of saline and eventually a central line was placed and was started on Levophed. Subsequently, the patient was intubated and is currently in the intensive care unit on two pressors as well as 100% FiO2 on the ventilator. At the time of my evaluation, the patient is unresponsive and on the ventilator, at the bedside. REVIEW OF SYSTEMS: Cannot be obtained. PAST MEDICAL HISTORY: Hypertension, diabetes, obesity, and sciatica. PAST SURGICAL HISTORY: Bilateral knee replacement. MEDICATIONS: Per reconciliation. ALLERGIES: She has no known drug allergies. FAMILY HISTORY: Noncontributory. PHYSICAL EXAMINATION: VITAL SIGNS: Show blood pressure 112/46, pulse 120, respirations 18, and she is afebrile. HEAD AND NECK: Shows no jugular venous distention. She is orally intubated. LUNGS: Coarse rhonchi. CARDIOVASCULAR: Tachycardic. S1, S2 with no gallop or murmur. ABDOMEN: Obese. EXTREMITIES: No pitting edema. LABORATORY AND DIAGNOSTIC DATA: EKG showed sinus tachycardia at rate of [address]-T wave abnormalities. Labs show white count 31,000, hemoglobin 8, hematocrit 26, and platelet count 171. Sodium is 132, potassium 5.1, BUN 20, and creatinine 2.1. Glucose of 239. Lactic acid is 7.1. Troponin 0.898, 0.526, and 0.542. BNP is 3000. ASSESSMENT AND PLAN: 1. Septic shock, etiology is not clear. The patient is on broad spectrum IV antibiotic as well as dopamine, vasopressin, and Levophed. dopamine in view of the patient's tachycardia. The patient is also on IV fluid. 2. Troponin leak. The levels are flat and likely due to this patient's sepsis and septic shock. Her echocardiogram showed ejection fraction 60% to 65% and EKG showed no acute ischemic changes. 3. Morbid obesity. 4. Diabetes. 5. Renal failure. 6. Lactic acidosis, sepsis and respiratory failure, on the ventilator. Thank you very much, Dr. Kelley, for allowing me to participate in the care of this critically ill lady. Please do not hesitate to contact me for any questions regarding my evaluation. Case was discussed with the patient's nurse as well as at the bedside. Sean Montanez M.D. DR: LORRIE JOB#: [id number] CC:
--- NOTE | 2018-10-10 18:30 | Consultation ---
DATE OF CONSULTATION: 10/10/2018 INFECTIOUS DISEASES CONSULTATION CONSULTING PHYSICIAN: Wesley Akers M.D. PRIMARY ATTENDING PHYSICIAN: Michael Kelley M.D. REASON FOR CONSULTATION: Septic shock. HISTORY OF PRESENT ILLNESS: This 58-year-old female admitted yesterday from home. According to , the patient has abdominal pain and went to the bathroom to pee and fell down, but the patient was awake. In the ER, the patient was confused. She had leukocytosis, hypertension, and has severe acidosis. The patient was intubated. Right femoral line was placed. The patient was transferred to ICU and started on vasopressors & antibiotics. Today, the dose of vasopressor is coming down. Started empirically on antibiotic. PAST MEDICAL HISTORY: Significant for diabetes mellitus, hypertension, morbid obesity, and knee surgery. She had a recent admission in [facility] three weeks ago. She had frequent falls. ALLERGIES: No known drug allergies. MEDICATIONS: Vancomycin, heparin, aspirin, vasopressin, dopamine, Zosyn, norepinephrine, insulin, Zofran, and morphine sulfate. SOCIAL HISTORY: , have no children. No history of alcohol, drug abuse, or smoking. REVIEW OF SYSTEMS: Unobtainable. PHYSICAL EXAMINATION: VITAL SIGNS: Temperature is 98.8, pulse 122, and blood pressure is 76/49. GENERAL APPEARANCE: Seems to be obese. The patient is nonsedated, noncommunicative. HEAD AND NECK: Orally intubated. HEART: Tachycardic. She has a right femoral line. LUNGS: Clear. ABDOMEN: Distended. EXTREMITIES: Some trace edema. LABORATORY AND DIAGNOSTIC DATA: WBC 30.7, hemoglobin 8, hematocrit 26, and platelets 171,000. Sodium 133, potassium 5.1, chloride is 100, carbon dioxide 15, BUN 29, and creatinine 2.1. AST 670, ALT 469, and alkaline phosphatase is 210. Ammonia was 39. Albumin is 1.8. Lactic acid is 6.4. CK is 5210. Chest x-ray did not show any infiltrate, but showed markedly distended stomach. Echocardiogram showed normal ejection fraction of 60% to 65%. CTA of abdomen and pelvis showed evidence of hepatic cirrhosis, small ascites, absent gallbladder, bibasilar basilar pulmonary parenchymal atelectasis changes, and possible patchy consolidation. UA showed wbc's 0 to 2. Blood gas showed acidosis, pH of 7.168, previous pH was 6.928, and previous pCO2 was 71.9, currently coming to 38. IMPRESSION: 1. Shock. 2. May have pneumonia, especially aspiration pneumonia. 3. Multiorgan failure including acute renal failure and hypercapnic respiratory failure. 4. Diabetes mellitus. 5. Obesity. 6. Lactic acidosis. 7. Anemia. 8. Cirrhosis. RECOMMENDATION: We will continue with vancomycin and Zosyn. We will follow up the cultures. Prognosis is guarded. Case was discussed at the bedside with . At the end of my exam, I thank Dr. Kelley for involving me in the care of this patient. Wesley Akers M.D. DR: RAUL JOB#: [id number] CC: GIOVANI
--- NOTE | 2018-10-10 19:20 | NUR ---
HAND-OFF: Report given to KARI Meneses.
[2018-10-10] MEDS ORDERED: Dyna-Hex 2% Top Sol 2oz TOPIC SCH (20:00)
--- NOTE | 2018-10-10 20:00 | NUR ---
NURSE NOTES: Patient received mechanically ventilated on PB840 with current ordered vent settings AC 24, 550, 100%, 5. Patient is orally intubated with a size 7.0 ETT tube with 23cm at the lip line that is secure with an anchor fast. There are bilateral decreased breath sounds noted upon auscultation and small amount to thick clear and pink secretions were suctioned via inline suction system without incident. Vent alarms are functional and audible. There is an ambu bag available at the bedside and the vent is connected to a red outlet. Patient has Levophed maxed dose, vasopressin maxed dose and dopamine at 10meq. D5NS at 100ml/hr, R TLC and L AC 20G noted. Quiroz noted and OGT noted on low inter suctioning. Family is at bedside and discussed plan of care to next of kin. Will continue to monitor.
--- NOTE | 2018-10-10 20:15 | NUR ---
NURSE NOTES: Pharmacy called notifying me of PTT > 150. Heparin gtt stopped and to be resumed at 2115 at 3u/kg/hr.
[2018-10-10] MEDS: Pantoprazole Inj IVP SCH (20:30)
[2018-10-10] MEDS: Dyna-Hex 2% Top Sol 2oz TOPIC SCH (20:30)
--- NOTE | 2018-10-10 21:15 | NUR ---
NURSE NOTES: Resumed Heparin gtt at 3u/kg/hr as per facility protocol.
--- NOTE | 2018-10-10 22:00 | NUR ---
NURSE NOTES: Pressors slwoly being titrated down. So far patient BP is staying steady, with MAP above 60. Family at bedside. Pressors ongoing, patient is making a little more urine output considering amount during in morning shift, roughly 10-25ml/hr. No acute respiratory distress. Will continue to monitor.
[2018-10-11] VITALS (64 sets, daily range): BP systolic 77–132; BP diastolic 44–85
--- NOTE | 2018-10-11 | NUR ---
NURSE NOTES: Pressors ongoing, Dopamine turned off,Levophed and Vaso ongoing. MAP remaining at 60. Will continue to monitor.
--- NOTE | 2018-10-11 02:45 | History and Physical Report ---
DATE OF ADMISSION: 10/09/2018 HISTORY OF PRESENT ILLNESS: The patient is morbidly obese, admitted to ICU for respiratory failure, hypoxia, dyspnea. The patient originally came in, has history of appendicolith and was in septic shock, pneumonia, respiratory failure. The patient was intubated in the ICU, we cannot get any history from the patient. The patient is admitted for septic shock and pneumonia. PAST MEDICAL HISTORY: Obesity, NIDDM, hypertension, and degenerative joint disease. ALLERGIES: No known allergies. MEDICATIONS: Glipizide, hydrochlorothiazide, metformin, and tramadol. FAMILY HISTORY: Unable to obtain. SOCIAL HISTORY: Unable to obtain. REVIEW OF SYSTEMS: Unable to obtain. PHYSICAL EXAMINATION: VITAL SIGNS: Temperature is 99.3, pulse is 125, and blood pressure 97/52. HEENT: PERRLA. NECK: Supple. CHEST: Bibasilar rhonchi. CARDIOVASCULAR: Tachycardic. GASTROINTESTINAL: Soft, distended. Positive bowel sounds. EXTREMITIES: A 1+ edema. The patient morbidly obese. NEUROLOGIC: Reflexes equal on both sides, intubated. Unable to obtain neurological exam. LABORATORY DATA: Initially WBC of 29.4, hemoglobin 9.2, and platelets of 184,000. Sodium 133, potassium 5.1, BUN of 29, creatinine 2.2, and glucose of 229. AST of 670, ALT of 469, alkaline phosphatase of 210. Troponin of 0.898. ASSESSMENT AND PLAN: 1. Respiratory failure, intubated. 2. Liver cirrhosis. 3. Acute renal failure. 4. Septic shock. 5. Tachycardia due to sepsis. 6. Elevated Troponin. I have asked Dr. Cueto, Dr. Montanez, Dr. Reynolds, Dr. Samuel , Dr. Wesley Akers, Dr. Delarosa to see the patient for the above-mentioned diagnoses and treatment and also to rule out any surgical pathology. Michael Kelley M.D. DR: Sofi JOB#: [id number] CC:
[2018-10-11] MEDS: Norepinephrine Bitartrate 16 MG in Sodium Chloride 484 ML IV SCH ×2 (03:00→17:56)
--- NOTE | 2018-10-11 03:00 | NUR ---
NURSE NOTES: New Levophed bag hung at 26mcg/hr, BP is 101/52. Dopamine remains off at this time. Vasopressin ongoing. Lab at bedside drawing timed PTT. HR now has been ranging around the 90s SR and ST in the low 100's since about midnight. Low garde fevers, Temperature now is 99.5F, cooling measure are in effect.
--- NOTE | 2018-10-11 04:00 | NUR ---
NURSE NOTES: ptt came back to be 81, as per protocol, heparin drip to be left at 3u/kg/hr. Next PTT to be done on 0400/
[2018-10-11] MEDS ORDERED: Vancomycin 1gm/D5W 275ml IVPB SCH ×2 (05:00)
[2018-10-11] MEDS: Piperacillin/Tazobactam 3.375 GM in D5W 110 ML IVPB SCH ×2 (05:33→18:50)
--- NOTE | 2018-10-11 06:00 | NUR ---
NURSE NOTES: Patient repositioned, Abx hung and new Maintenance fluids hung too, NAD at this time, sputum cx collected and sent.
[2018-10-11 06:02] LABS: HEMATOCRIT 22.7 % (37.0-47.0); HEMOGLOBIN 7.5 G/DL (12.0-16.0); MEAN CORPUSCULAR VOLUME 97 FL (80-99); PLATELET COUNT 115 K/UL (150-450); RED BLOOD COUNT 2.35 M/UL (4.20-5.40); RED CELL DISTRIBUTION WIDTH 17.1 % (11.6-14.8); WHITE BLOOD COUNT 15.3 K/UL (4.8-10.8)
[2018-10-11] MEDS: NovoLOG Insulin Flexpen SUBQ SCH ×3 (06:03→20:53)
[2018-10-11] MEDS: D5NS 1,000 ML IV SCH (06:04)
[2018-10-11 06:21] LABS: AMMONIA 62 umol/L (11-32)
--- NOTE | 2018-10-11 06:30 | NUR ---
NURSE NOTES: glucose noted to be 388, coverage provided. Family at bedside and updated him on patients condition.
[2018-10-11 06:33] LABS: ALBUMIN 1.5 G/DL (3.4-5.0); ALBUMIN/GLOBULIN RATIO 0.5 (1.0-2.7); ALKALINE PHOSPHATASE 489 U/L (46-116); ANION GAP 14 mmol/L (5-15); BILIRUBIN,TOTAL 1.2 MG/DL (0.2-1.0); BLOOD UREA NITROGEN 38 mg/dL (7-18); CALCIUM 6.5 MG/DL (8.5-10.1); CARBON DIOXIDE 16 MMOL/L (21-32); CHLORIDE 103 MMOL/L (98-107); CREATININE 2.7 MG/DL (0.55-1.30); POTASSIUM 4.4 MMOL/L (3.5-5.1); SODIUM 133 MMOL/L (136-145)
[2018-10-11 06:36] LABS: CREATINE KINASE 3542 U/L (26-308); GAMMA GLUTAMYL TRANSPEPTIDASE 680 U/L (5-85); PHOSPHORUS 5.2 MG/DL (2.5-4.9)
--- NOTE | 2018-10-11 06:40 | NUR ---
RESPIRATORY NOTE: Received pt on current ordered vent settings. Pt ETT is patent and secured. Sx'd pt prn. Vent alarms are on and audible. Vent is plugged into red outlet. Will monitor pt progress.
[2018-10-11 06:45] LABS: ALANINE AMINOTRANSFERASE 3982 U/L (12-78); ASPARTATE AMINO TRANSFERASE 6647 U/L (15-37)
[2018-10-11 06:47] LABS: BILIRUBIN,DIRECT 0.7 MG/DL (0.0-0.3)
--- NOTE | 2018-10-11 07:15 | NUR ---
NURSE NOTES: Patient received from Gideon RN, RN. Patient observed to be very lethargic. Patient does open eyes when prompted by calling her name but quickly returns to sleep. Patient responds to questions with head nods yes and no. RT is bedside assessing patient at this time as well. Patient is being monitored on the monitor worker VS 93/50, RR 17, HR 92, SPO2 100%. Patient is SR on the monitor. Patient is orally intubated with ETT 7.0 20 cm at the lip. Patient has vent settings of AC 24, TV 550 FIO2 60% PEEP 5. Patient received oral care. Upon auscultation, patient has diminished breath sounds BL at the bases however breath sounds are improved from yesterday. Patient has hypoactive breath sounds with a very distended belly. OGT is connected to low intermittent suction. Belly is large and distended. When auscultating, patient grimaces. Patient has a Quiroz with little urine output draining to gravity. Patient has a RFEM running Heparin at 3 units, Levo 18 mcgs and D5NS @ 100 ml/hr. Pulses are palpable and skin is intact. Safety measures are in place with bed in the lowest position, locked, call light within reach and side rails x 3 up. Will continue to monitor and follow plan of care.
[2018-10-11 07:32] LABS: AMYLASE 48 U/L (25-115)
--- NOTE | 2018-10-11 08:03 | NUR ---
NURSE NOTES: Assessed patient with Dr Villagomez. Discussed lab results especially Hgb 7.5. No transfusion at this time. Parameters will be 7.0 and below. Will continue to monitor and follow plan of care.
--- NOTE | 2018-10-11 08:27 | NUR ---
NURSE NOTES: Called Dr Kelley office regarding Abn Liver Panel Labs. Requesting whether he wants a GI Consult for patient. Paged . Awaiting return call.
[2018-10-11] MEDS: Pantoprazole Inj IVP SCH ×2 (08:57→20:49)
[2018-10-11] MEDS: Aspirin Baby 81mg NG SCH (08:58)
--- NOTE | 2018-10-11 10:18 | NUR ---
NURSE NOTES: Dr Cueto assessed patient. Discussed INC BUN/Prescription Clerk Lenses. Patient UOP INC as well. MD has reviewing all labs will enter in orders as needed per assessment. Will carry out MD orders.
--- NOTE | 2018-10-11 10:37 | Infectious Diseases Prog Note ---
Assessment/Plan Assessment/Plan A: 1. Septic Shock.culture are negative so far 2. May have pneumonia, especially aspiration pneumonia. 3. Multiorgan failure including acute renal failure and hypercapnic respiratory failure. 4. Diabetes mellitus. 5. Obesity. 6. Lactic acidosis. 7. Anemia. 8. Cirrhosis. 9. Enteritis, ileus RECOMMENDATION: continue with vancomycin and Zosyn Subjective ROS Limited/Unobtainable: Yes Cardiovascular: Reports: other - off of Dopamine, decreased dose of Levophed & Phenyephrine Genitourinary: Reports: other - makes more urine today Allergies: Coded Allergies: No Known Allergies (Unverified , 05/06/18) Objective Vital Signs Last 24 Hour Vital Signs Date Time Temp Pulse Resp B/P (MAP) Pulse Ox O2 Delivery O2 Flow Rate FiO2 10/11/18 09:00 92 11 81/50 (60) 100 10/11/18 08:40 95 24 60 10/11/18 08:30 94 11 90/51 (64) 100 10/11/18 08:00 60 10/11/18 08:00 99.0 92 22 96/51 (66) 100 10/11/18 08:00 Mechanical Ventilator 10/11/18 07:30 92 22 96/51 (66) 100 10/11/18 07:20 10/11/18 07:00 92 17 93/50 (64) 100 10/11/18 06:40 101 24 60 10/11/18 06:30 91 22 98/66 (77) 100 10/11/18 06:00 92 24 100/47 (64) 100 10/11/18 06:00 100/47 10/11/18 05:30 107 23 101/46 (64) 100 10/11/18 05:15 107 21 109/48 (68) 100 10/11/18 05:15 110 24 60 10/11/18 05:00 114 24 109/66 (80) 99 10/11/18 05:00 99/55 10/11/18 05:00 101/63 10/11/18 04:45 95 24 96/50 (65) 100 10/11/18 04:30 92 24 96/48 (64) 99 10/11/18 04:15 94 24 93/49 (64) 99 10/11/18 04:00 98 10/11/18 04:00 99.8 92 24 99/52 (68) 100 10/11/18 04:00 60 10/11/18 04:00 Mechanical Ventilator 10/11/18 03:45 94 24 93/52 (66) 99 10/11/18 03:30 91 25 102/53 (69) 100 10/11/18 03:29 98 22 60 10/11/18 03:15 93 24 95/50 (65) 99 10/11/18 03:00 101/52 10/11/18 03:00 95 24 94/50 (65) 99 10/11/18 02:45 94 24 101/52 (68) 99 10/11/18 02:30 96 24 97/50 (66) 99 10/11/18 02:15 95 24 96/52 (67) 99 10/11/18 02:00 96/52 10/11/18 02:00 102 24 103/55 (71) 98 10/11/18 01:45 96 24 94/51 (65) 99 10/11/18 01:30 99 24 60 10/11/18 01:30 96 24 86/48 (61) 98 10/11/18 01:00 102 24 89/49 (62) 96 10/11/18 01:00 98/50 10/11/18 00:30 102 24 92/47 (62) 98 10/11/18 00:00 110 10/11/18 00:00 110/53 10/11/18 00:00 99.8 103 24 104/50 (68) 98 10/11/18 00:00 Mechanical Ventilator 10/11/18 00:00 60 10/10/18 23:45 106 24 115/48 (70) 98 10/10/18 23:45 106 24 115/48 (70) 98 10/10/18 23:30 106 24 110/50 (70) 98 10/10/18 23:30 106 24 110/50 (70) 98 10/10/18 23:21 110 24 60 10/10/18 23:15 108 24 105/48 (67) 98 10/10/18 23:00 105/48 10/10/18 23:00 105/48 10/10/18 23:00 111 24 104/50 (68) 98 10/10/18 23:00 111 24 104/50 (68) 98 10/10/18 22:45 111 24 108/48 (68) 98 10/10/18 22:30 113 24 114/48 (70) 99 10/10/18 22:15 114 24 111/48 (69) 99 10/10/18 22:00 111/48 10/10/18 22:00 111/48 10/10/18 22:00 117 24 113/51 (71) 98 10/10/18 21:45 116 24 116/50 (72) 98 10/10/18 21:30 121 20 60 10/10/18 21:30 118 24 112/46 (68) 98 10/10/18 21:00 117 24 109/42 (64) 98 10/10/18 21:00 109/45 10/10/18 21:00 109/45 10/10/18 20:45 117 24 104/50 (68) 99 10/10/18 20:30 116 24 106/45 (65) 98 10/10/18 20:15 117 24 102/41 (61) 97 10/10/18 20:00 121 10/10/18 20:00 Mechanical Ventilator 10/10/18 20:00 60 10/10/18 20:00 102/41 10/10/18 20:00 102/41 10/10/18 20:00 99.3 125 30 97/53 (68) 98 10/10/18 19:45 127 23 91/56 (68) 100 10/10/18 19:30 126 31 107/46 (66) 100 10/10/18 19:30 126 24 60 10/10/18 19:15 124 23 109/47 (67) 100 10/10/18 19:00 109/47 10/10/18 19:00 109/47 10/10/18 19:00 126 23 103/49 (67) 100 10/10/18 18:30 122 24 121/44 (69) 100 10/10/18 18:15 125 24 120/45 (70) 100 10/10/18 18:00 123 24 116/48 (70) 100 10/10/18 17:59 123 23 116/44 (68) 100 10/10/18 17:45 125 24 119/50 (73) 100 10/10/18 17:30 122 24 115/43 (67) 100 10/10/18 17:29 113/42 10/10/18 17:16 113/42 10/10/18 17:00 99.2 128 24 113/42 (65) 100 10/10/18 16:53 127 24 100 10/10/18 16:30 128 24 112/43 (66) 100 10/10/18 16:00 100 10/10/18 16:00 Endotracheal Tube 10/10/18 16:00 128 24 115/43 (67) 100 10/10/18 16:00 125 10/10/18 15:30 123 24 116/42 (66) 100 10/10/18 15:00 122 24 112/46 (68) 100 10/10/18 14:42 122 24 100 10/10/18 14:30 122 15 82/37 (52) 100 10/10/18 14:00 126 22 104/49 (67) 100 10/10/18 13:30 123 23 103/49 (67) 100 10/10/18 13:00 125 24 99/47 (64) 100 10/10/18 12:42 125 24 100 10/10/18 12:30 119 24 89/31 (50) 100 10/10/18 12:00 125 10/10/18 12:00 100 10/10/18 12:00 Endotracheal Tube 10/10/18 12:00 99.0 125 24 86/62 (70) 100 10/10/18 11:30 123 24 90/49 (63) 100 10/10/18 11:27 122 24 100 10/10/18 11:00 122 24 78/73 (75) 100 10/10/18 10:44 118 24 100 Height (Feet): 5 Height (Inches): 1.00 Weight (Pounds): 242 HEENT: other - orally intubated Respiratory/Chest: lungs clear, other - on ventilator Cardiovascular: normal rate, other - R femoral line Abdomen: other - decreased distention, orogastric tube Extremities: other - generalized edema Neurologic/Psychiatric: unresponsiveness Microbiology Date/Time Source Procedure Growth Status 10/09/18 08:51 Blood Blood Culture - Preliminary NO GROWTH AFTER 24 HOURS Resulted 10/09/18 08:51 Blood Blood Culture - Preliminary NO GROWTH AFTER 24 HOURS Resulted 10/10/18 03:10 Stool Clostridium difficile Toxin Assay - Final Complete 10/09/18 15:50 Urine,Clean Catch Urine Culture - Final NO GROWTH AFTER 48 HOURS Complete 10/09/18 09:34 Rectum Received Laboratory Tests Test 10/10/18 19:05 10/11/18 04:00 10/11/18 08:40 10/11/18 10:00 Activated Partial Thromboplast Time > 150 SEC (23-33) *H 81 SEC (23-33) H Lactic Acid Level 4.60 mmol/L (0.66-2.22) H 3.80 mmol/L (0.4-2.0) H Pending White Blood Count 15.3 K/UL (4.8-10.8) #H Red Blood Count 2.35 M/UL (4.20-5.40) L Hemoglobin 7.5 G/DL (12.0-16.0) L Hematocrit 22.7 % (37.0-47.0) L Mean Corpuscular Volume 97 FL (80-99) Mean Corpuscular Hemoglobin 31.8 PG (27.0-31.0) H Mean Corpuscular Hemoglobin Concent 32.8 G/DL (32.0-36.0) Red Cell Distribution Width 17.1 % (11.6-14.8) H Platelet Count 115 K/UL (150-450) L Mean Platelet Volume 6.0 FL (6.5-10.1) L Neutrophils (%) (Auto) % (45.0-75.0) Lymphocytes (%) (Auto) % (20.0-45.0) Monocytes (%) (Auto) % (1.0-10.0) Eosinophils (%) (Auto) % (0.0-3.0) Basophils (%) (Auto) % (0.0-2.0) Differential Total Cells Counted 100 Neutrophils % (Manual) 95 % (45-75) H Lymphocytes % (Manual) 2 % (20-45) L Monocytes % (Manual) 3 % (1-10) Eosinophils % (Manual) 0 % (0-3) Basophils % (Manual) 0 % (0-2) Band Neutrophils 0 % (0-8) Platelet Estimate Decreased L Platelet Morphology Normal Hypochromasia 1+ Anisocytosis 1+ Sodium Level 133 MMOL/L (136-145) L Potassium Level 4.4 MMOL/L (3.5-5.1) Chloride Level 103 MMOL/L (98-107) Carbon Dioxide Level 16 MMOL/L (21-32) L Anion Gap 14 mmol/L (5-15) Blood Urea Nitrogen 38 mg/dL (7-18) H Creatinine 2.7 MG/DL (0.55-1.30) H Estimat Glomerular Filtration Rate 18.1 mL/min (>60) Glucose Level 334 MG/DL (74-106) H Uric Acid 8.1 MG/DL (2.6-7.2) H Calcium Level 6.5 MG/DL (8.5-10.1) L Phosphorus Level 5.2 MG/DL (2.5-4.9) H Magnesium Level 1.5 MG/DL (1.8-2.4) L Total Bilirubin 1.2 MG/DL (0.2-1.0) H Direct Bilirubin 0.7 MG/DL (0.0-0.3) H Gamma Glutamyl Transpeptidase 680 U/L (5-85) H Aspartate Amino Transf (AST/SGOT) 6647 U/L (15-37) H Alanine Aminotransferase (ALT/SGPT) 3982 U/L (12-78) H Alkaline Phosphatase 489 U/L (46-116) H Ammonia 62 umol/L (11-32) H Total Creatine Kinase 3542 U/L (26-308) H Troponin I 1.034 ng/mL (0.000-0.056) Pro-B-Type Natriuretic Peptide 6076 pg/mL (0-125) H Total Protein 4.3 G/DL (6.4-8.2) L Albumin 1.5 G/DL (3.4-5.0) L Globulin 2.8 g/dL Albumin/Globulin Ratio 0.5 (1.0-2.7) L Amylase Level 48 U/L (25-115) Lipase 199 U/L (73-393) Cortisol AM Sample Pending Arterial Blood pH 7.454 (7.350-7.450) Arterial Blood Partial Pressure CO2 19.7 mmHg (35.0-45.0) *L Arterial Blood Partial Pressure O2 158.7 mmHg (75.0-100.0) H Arterial Blood HCO3 13.5 mmol/L (22.0-26.0) *L Arterial Blood Oxygen Saturation 98.8 % (95-100) Arterial Blood Base Excess -9.3 (-2-2) *L Ortiz Test Positive Current Medications Medications (Trade) Dose Ordered Sig/Patricia Route PRN Reason Start Time Stop Time Status Last Admin Dose Admin Acetaminophen (Tylenol) 650 mg Q4H PRN ORAL Mild Pain/Temp > 100.5 10/09/18 14:15 11/08/18 14:14 Albuterol/ Ipratropium (Albuterol/ Ipratropium) 3 ml Q4H PRN HHN Shortness of Breath 10/09/18 14:30 10/14/18 14:29 Aspirin (ASA) 81 mg DAILY NG 10/10/18 09:00 11/09/18 08:59 Chlorhexidine Gluconate (Nguyen-Hex 2%) 1 applic DAILY@2000 TOPIC 10/10/18 20:00 11/09/18 19:59 10/10/18 20:30 Dextrose (Dextrose 50%) 25 ml Q30M PRN IV Hypoglycemia 10/09/18 14:30 11/08/18 14:29 Dextrose (Dextrose 50%) 50 ml Q30M PRN IV Hypoglycemia 10/09/18 14:30 11/08/18 14:29 Dextrose/Sodium Chloride 1,000 ml @ 100 mls/hr Q10H IV 10/09/18 14:30 11/08/18 14:29 10/11/18 06:04 Diphenhydramine HCl (Benadryl) 25 mg Q6H PRN IVP Itching 10/09/18 14:30 11/08/18 14:29 Dopamine HCl/ Dextrose 250 ml @ 0 mls/hr Q24H IV 10/10/18 00:15 11/09/18 00:14 10/10/18 17:29 Heparin Sodium/ Dextrose 500 ml @ 6.63 mls/hr ADJUST PER PROTOCOL IV 10/10/18 21:15 11/09/18 21:14 10/10/18 21:27 Insulin Aspart (NovoLOG) BEFORE MEALS AND HS SUBQ 10/09/18 16:30 11/08/18 16:29 10/11/18 06:03 Morphine Sulfate (Morphine Sulfate) 2 mg Q4H PRN IVP Severe Pain (Pain Scale 7-10) 10/09/18 14:15 10/16/18 14:14 10/09/18 14:35 Norepinephrine Bitartrate 16 mg/ Sodium Chloride 500 ml @ 0 mls/hr Q24H IV 10/09/18 21:00 11/08/18 20:59 10/11/18 03:00 Ondansetron HCl (Zofran) 4 mg Q6H PRN IVP Nausea & Vomiting 10/09/18 14:30 11/08/18 14:29 Pantoprazole (Protonix) 40 mg EVERY 12 HOURS IVP 10/10/18 21:00 11/09/18 20:59 10/11/18 08:57 Piperacillin Sod/ Tazobactam Sod 3.375 gm/Dextrose 110 ml @ 27.5 mls/hr Q12H IVPB 10/11/18 18:00 10/18/18 17:59 Vancomycin HCl (Vanco rx to dose) 1 ea DAILY PRN MISC Per rx protocol 10/09/18 14:30 11/08/18 14:29 Vasopressin 100 units/Sodium Chloride 105 ml @ 2.52 mls/hr Q24H IV 10/10/18 14:00 11/09/18 13:59 10/10/18 14:00 Wesley Akers MD Oct 11, 2018 10:37
--- NOTE | 2018-10-11 10:51 | NUR ---
RADIOLOGY DEPT CHEST X-RAY DONE.-P.DYE
--- NOTE | 2018-10-11 11:06 | Diagnostic Imaging Report ---
Indication: Shortness of breath Technique: One view of the chest Comparison: 10/10/2018 Findings: . Interim placement of gastric tube, tip which projects beyond the edge of image, presumably well within the stomach. Interim decompression of previously demonstrated distended stomach. Endotracheal tube is advanced, tip now projecting at the level of the right mainstem bronchus orifice. Bilateral mild interstitial congestion, likely small bilateral pleural effusions, cardiomegaly persists. Impression: Improved and now satisfactory gastric tube position Low position of endotracheal tube. Withdrawal recommended by 2 cm. This finding was discussed by phone with charge nurse Skyla in the ICU at the time of interpretation
--- NOTE | 2018-10-11 11:41 | NUR ---
RD ASSESSMENT & RECOMMENDATIONS SEE CARE ACTIVITY FOR COMPLETE ASSESSMENT DAILY ESTIMATED NEEDS: Needs based on Sepsis, critical care 22-28, 64kg adj kcals/kg [id number] total kcals 1.2-2, 64kg adj g protein/kg 77-128 g total protein Fluid per MD NUTRITION DIAGNOSIS: 1) Swallowing difficulty r/t respiratory status as evidenced by pt is orally intubated, on multipl pressors, NPO at this time 2) Altered nutrition related lab values r/t critcal care. septic shock and multi organ failure as evidenced by critically elev WBC now trending down (15.3), elev creat kinase (3542), elev LFT's, elev phos (5.2), elev Creat (2.7), elev ammonia (62), elev BNP (6076), elev A1C (11.0), elev BG (200's-300's). CURRENT TF:NPO ENTERAL NUTRITION RECOMMENDATIONS: Vital 1.2 @50ml/hr x24 hrs to provide 1200ml, 1440 kcal, 90g prot, 973ml free H2O - With hemodynamic stability-> rec non oral feeds to meet est needs - Start VITAL @20ml/hr for 6 hrs, advance as tolerated 10ml/hr q4-6 hrs to goal - Flush per MD, HOB over 30 degrees ----- WITHOUT HEMODYNAMIC STABILITY, REC MEDICALLY ABLE TROPHIC FEEDS OF 5-10ML/HR TO MAINTAIN GUT INTEGRITY ADDITIONAL RECOMMENDATIONS: * TF RECS ABOVE WHEN STABLE * CALIBRATED BED SCALE WTS * MONITOR RENAL PARAMETERS, NEED FOR TF REC CHANGE
--- NOTE | 2018-10-11 11:58 | Diagnostic Imaging Report ---
APPROVED REPORT CPT Code: 87415 Present Symptoms Comments: BILATERAL LEGS PAIN. BILATERAL: Imaging reveals a patent deep venous system bilaterally. There is no evidence of thrombus within the femoral, popliteal or tibial segments. The greater saphenous veins are also within normal limits. Doppler indicates normal spontaneous flow within these segments.
--- NOTE | 2018-10-11 12:15 | NUR ---
NURSE NOTES: Patient observed to be improving from her lethargy. Patient is now opening her eyes spontaneously, follows commands and nods her head yes and no. Patient is being monitored on the cardiac cath technologist VSS. Patient is ST on the monitor. Patient is orally intubated with ETT 7.0 with vent settings of AC 20, TV 500 FIO2 40% PEEP 5. Patient received oral care. OGT is connected to low intermittent suction. Patient has a Quiroz with little urine output draining to gravity however is improved. Patient has a RFEM running Heparin at 3 units, Levo 18 mcgs and NS @ 100 ml/hr. Safety measures are in place with bed in the lowest position, locked, call light within reach and side rails x 3 up. Will continue to monitor and follow plan of care.
--- NOTE | 2018-10-11 12:30 | Pulmonolgy Critical Care Note ---
Critical Care - Asmt/Plan Problems: (1) Respiratory disorder with ventilator dependence (2) Septic shock (3) Pneumonia (4) Liver cirrhosis Assessment/Plan: ASSESSMENT: The patient is a 58-year-old female with a history of obesity, diabetes, hypertension, hyperlipidemia, and sciatica with chronic low back pain , DDD/DJD, presenting after a mechanical fall with altered mental status and confusion with likely sepsis and multisystem organ failure. PROBLEM LIST: 1. VDRF 2. Sepsis 3. Shock, hypovolemic and distributive. 4. Multisystem organ failure. 5. Lactic acidosis. 6. Anion gap metabolic acidosis. 7. JONNATHAN. 7. Abnormal LFTs, likely shock liver. 8. Abnormal troponin, likely demand ischemia. 9. Elevated D-dimer and PASP concerning for an acute PE 10. Obesity. 11. Diabetes. 12. Hypertension. 13. Chronic low back pain and sciatica. 14. Anemia/FOBT + TREATMENT PLAN: 1. Continue ventilatory support, dec TV to 500 and RR to 20. Titrate down FiO2 and PEEP to keep SaO2 > 90% 2. PRN HHN's 3. Vaso 0.04, titrate NE to keep MAP > 60 4. Continue IVF, Change to NS@ 100 5. Vanco/Zosyn (D3) per ID 6. Continue empiric IVUH, monitor for bleeding, when able will get a CT-A or VQ , F/U final Duplex 7. Trend troponin, lactic acid, creatinine, and LFTs. 8. OGT to suction 9. NPO until stabilized, will consider enteral feeds as soon as able 10. DVT prophylaxis: IVUH 11. SSI 12. ABD US 13. Prognosis poor 14. 90 minutes of critical care time was spent. D/R RN, @ bedside and consultants Critical Care - Objective Last 24 Hour Vital Signs Date Time Temp Pulse Resp B/P (MAP) Pulse Ox O2 Delivery O2 Flow Rate FiO2 10/11/18 11:15 96 24 60 10/11/18 09:00 92 11 81/50 (60) 100 10/11/18 08:40 95 24 60 10/11/18 08:30 94 11 90/51 (64) 100 10/11/18 08:00 60 10/11/18 08:00 99.0 92 22 96/51 (66) 100 10/11/18 08:00 Mechanical Ventilator 10/11/18 07:30 92 22 96/51 (66) 100 10/11/18 07:20 10/11/18 07:00 92 17 93/50 (64) 100 10/11/18 06:40 101 24 60 10/11/18 06:30 91 22 98/66 (77) 100 10/11/18 06:00 92 24 100/47 (64) 100 10/11/18 06:00 100/47 10/11/18 05:30 107 23 101/46 (64) 100 10/11/18 05:15 107 21 109/48 (68) 100 10/11/18 05:15 110 24 60 10/11/18 05:00 114 24 109/66 (80) 99 10/11/18 05:00 99/55 10/11/18 05:00 101/63 10/11/18 04:45 95 24 96/50 (65) 100 10/11/18 04:30 92 24 96/48 (64) 99 10/11/18 04:15 94 24 93/49 (64) 99 10/11/18 04:00 98 10/11/18 04:00 99.8 92 24 99/52 (68) 100 10/11/18 04:00 60 10/11/18 04:00 Mechanical Ventilator 10/11/18 03:45 94 24 93/52 (66) 99 10/11/18 03:30 91 25 102/53 (69) 100 10/11/18 03:29 98 22 60 10/11/18 03:15 93 24 95/50 (65) 99 10/11/18 03:00 101/52 10/11/18 03:00 95 24 94/50 (65) 99 10/11/18 02:45 94 24 101/52 (68) 99 10/11/18 02:30 96 24 97/50 (66) 99 10/11/18 02:15 95 24 96/52 (67) 99 10/11/18 02:00 96/52 10/11/18 02:00 102 24 103/55 (71) 98 10/11/18 01:45 96 24 94/51 (65) 99 10/11/18 01:30 99 24 60 10/11/18 01:30 96 24 86/48 (61) 98 10/11/18 01:00 102 24 89/49 (62) 96 10/11/18 01:00 98/50 10/11/18 00:30 102 24 92/47 (62) 98 10/11/18 00:00 110 10/11/18 00:00 110/53 10/11/18 00:00 99.8 103 24 104/50 (68) 98 10/11/18 00:00 Mechanical Ventilator 10/11/18 00:00 60 10/10/18 23:45 106 24 115/48 (70) 98 10/10/18 23:45 106 24 115/48 (70) 98 10/10/18 23:30 106 24 110/50 (70) 98 10/10/18 23:30 106 24 110/50 (70) 98 10/10/18 23:21 110 24 60 10/10/18 23:15 108 24 105/48 (67) 98 10/10/18 23:00 105/48 10/10/18 23:00 105/48 10/10/18 23:00 111 24 104/50 (68) 98 10/10/18 23:00 111 24 104/50 (68) 98 10/10/18 22:45 111 24 108/48 (68) 98 10/10/18 22:30 113 24 114/48 (70) 99 10/10/18 22:15 114 24 111/48 (69) 99 10/10/18 22:00 111/48 10/10/18 22:00 111/48 10/10/18 22:00 117 24 113/51 (71) 98 10/10/18 21:45 116 24 116/50 (72) 98 10/10/18 21:30 121 20 60 10/10/18 21:30 118 24 112/46 (68) 98 10/10/18 21:00 117 24 109/42 (64) 98 10/10/18 21:00 109/45 10/10/18 21:00 109/45 10/10/18 20:45 117 24 104/50 (68) 99 10/10/18 20:30 116 24 106/45 (65) 98 10/10/18 20:15 117 24 102/41 (61) 97 10/10/18 20:00 121 10/10/18 20:00 Mechanical Ventilator 10/10/18 20:00 60 10/10/18 20:00 102/41 10/10/18 20:00 102/41 10/10/18 20:00 99.3 125 30 97/53 (68) 98 10/10/18 19:45 127 23 91/56 (68) 100 10/10/18 19:30 126 31 107/46 (66) 100 10/10/18 19:30 126 24 60 10/10/18 19:15 124 23 109/47 (67) 100 10/10/18 19:00 109/47 10/10/18 19:00 109/47 10/10/18 19:00 126 23 103/49 (67) 100 10/10/18 18:30 122 24 121/44 (69) 100 10/10/18 18:15 125 24 120/45 (70) 100 10/10/18 18:00 123 24 116/48 (70) 100 10/10/18 17:59 123 23 116/44 (68) 100 10/10/18 17:45 125 24 119/50 (73) 100 10/10/18 17:30 122 24 115/43 (67) 100 10/10/18 17:29 113/42 10/10/18 17:16 113/42 10/10/18 17:00 99.2 128 24 113/42 (65) 100 10/10/18 16:53 127 24 100 10/10/18 16:30 128 24 112/43 (66) 100 10/10/18 16:00 100 10/10/18 16:00 Endotracheal Tube 10/10/18 16:00 128 24 115/43 (67) 100 10/10/18 16:00 125 10/10/18 15:30 123 24 116/42 (66) 100 10/10/18 15:00 122 24 112/46 (68) 100 10/10/18 14:42 122 24 100 10/10/18 14:30 122 15 82/37 (52) 100 10/10/18 14:00 126 22 104/49 (67) 100 10/10/18 13:30 123 23 103/49 (67) 100 10/10/18 13:00 125 24 99/47 (64) 100 10/10/18 12:42 125 24 100 10/10/18 12:30 119 24 89/31 (50) 100 Status: somnolent - intubated sedated Condition: improving HEENT: atraumatic, normocephalic Lungs: rhonchi Heart: HR/BP unstable Abdomen: soft, non-tender, active bowel sounds, feeding tube Extremities: no C/C/E Decubiti: location Micro: Microbiology Date/Time Source Procedure Growth Status 10/09/18 08:51 Blood Blood Culture - Preliminary NO GROWTH AFTER 24 HOURS Resulted 10/09/18 08:51 Blood Blood Culture - Preliminary NO GROWTH AFTER 24 HOURS Resulted 10/10/18 03:10 Stool Clostridium difficile Toxin Assay - Final Complete 10/09/18 15:50 Urine,Clean Catch Urine Culture - Final NO GROWTH AFTER 48 HOURS Complete 10/09/18 09:34 Rectum Received Accucheck: 388 Blood Sugars: BS not controlled Critical Care - Subjective ROS Limited/Unobtainable: Yes ICU Day: 3 Intubation Day: 2 Interval Events: Afebrile, weaning pressors FOBT + Cr 2.7 LFTs worse with marked transaminitis Condition: improving IV Access: central - R fem CVC, peripheral - L AC EKG Rhythm: Sinus Tachycardia FI02: 60 Vent Support Breath Rate: 24 Vent Support Mode: AC Vent Tidal Volume: 550 Sputum Amount: Small PEEP: 5.0 PIP: 35 Secretions: None Fluids: D5NS@100 Drips: NE 18 VASO 0.04 I&O: Intake and Output 10/10/18 10/11/18 19:00 07:00 Intake Total 2309.662 ml 1384.608 ml Output Total 124 ml 160 ml Balance 2185.662 ml 1224.608 ml Intake IV Total 2309.662 ml 1384.608 ml Output Urine Total 124 ml 160 ml Subjective: JASON ET-Tube: 7.0 ET Position: 21 Labs: Laboratory Tests Test 10/10/18 19:05 10/11/18 04:00 10/11/18 08:40 10/11/18 10:00 Activated Partial Thromboplast Time > 150 SEC (23-33) *H 81 SEC (23-33) H Lactic Acid Level 4.60 mmol/L (0.66-2.22) H 3.80 mmol/L (0.4-2.0) H 3.40 mmol/L (0.4-2.0) H White Blood Count 15.3 K/UL (4.8-10.8) #H Red Blood Count 2.35 M/UL (4.20-5.40) L Hemoglobin 7.5 G/DL (12.0-16.0) L Hematocrit 22.7 % (37.0-47.0) L Mean Corpuscular Volume 97 FL (80-99) Mean Corpuscular Hemoglobin 31.8 PG (27.0-31.0) H Mean Corpuscular Hemoglobin Concent 32.8 G/DL (32.0-36.0) Red Cell Distribution Width 17.1 % (11.6-14.8) H Platelet Count 115 K/UL (150-450) L Mean Platelet Volume 6.0 FL (6.5-10.1) L Neutrophils (%) (Auto) % (45.0-75.0) Lymphocytes (%) (Auto) % (20.0-45.0) Monocytes (%) (Auto) % (1.0-10.0) Eosinophils (%) (Auto) % (0.0-3.0) Basophils (%) (Auto) % (0.0-2.0) Differential Total Cells Counted 100 Neutrophils % (Manual) 95 % (45-75) H Lymphocytes % (Manual) 2 % (20-45) L Monocytes % (Manual) 3 % (1-10) Eosinophils % (Manual) 0 % (0-3) Basophils % (Manual) 0 % (0-2) Band Neutrophils 0 % (0-8) Platelet Estimate Decreased L Platelet Morphology Normal Hypochromasia 1+ Anisocytosis 1+ Sodium Level 133 MMOL/L (136-145) L Potassium Level 4.4 MMOL/L (3.5-5.1) Chloride Level 103 MMOL/L (98-107) Carbon Dioxide Level 16 MMOL/L (21-32) L Anion Gap 14 mmol/L (5-15) Blood Urea Nitrogen 38 mg/dL (7-18) H Creatinine 2.7 MG/DL (0.55-1.30) H Estimat Glomerular Filtration Rate 18.1 mL/min (>60) Glucose Level 334 MG/DL (74-106) H Uric Acid 8.1 MG/DL (2.6-7.2) H Calcium Level 6.5 MG/DL (8.5-10.1) L Phosphorus Level 5.2 MG/DL (2.5-4.9) H Magnesium Level 1.5 MG/DL (1.8-2.4) L Total Bilirubin 1.2 MG/DL (0.2-1.0) H Direct Bilirubin 0.7 MG/DL (0.0-0.3) H Gamma Glutamyl Transpeptidase 680 U/L (5-85) H Aspartate Amino Transf (AST/SGOT) 6647 U/L (15-37) H Alanine Aminotransferase (ALT/SGPT) 3982 U/L (12-78) H Alkaline Phosphatase 489 U/L (46-116) H Ammonia 62 umol/L (11-32) H Total Creatine Kinase 3542 U/L (26-308) H Troponin I 1.034 ng/mL (0.000-0.056) Pro-B-Type Natriuretic Peptide 6076 pg/mL (0-125) H Total Protein 4.3 G/DL (6.4-8.2) L Albumin 1.5 G/DL (3.4-5.0) L Globulin 2.8 g/dL Albumin/Globulin Ratio 0.5 (1.0-2.7) L Amylase Level 48 U/L (25-115) Lipase 199 U/L (73-393) Cortisol AM Sample Pending Arterial Blood pH 7.454 (7.350-7.450) Arterial Blood Partial Pressure CO2 19.7 mmHg (35.0-45.0) *L Arterial Blood Partial Pressure O2 158.7 mmHg (75.0-100.0) H Arterial Blood HCO3 13.5 mmol/L (22.0-26.0) *L Arterial Blood Oxygen Saturation 98.8 % (95-100) Arterial Blood Base Excess -9.3 (-2-2) *L Ortiz Test Positive Renato Delarosa MD Oct 11, 2018 12:30
--- NOTE | 2018-10-11 13:25 | GI Progress Note ---
Assessment/Plan Problems: (1) Shock liver ICD Codes: K72.00 - Acute and subacute hepatic failure without coma SNOMED: 299571271 (2) Liver cirrhosis ICD Codes: K74.60 - Unspecified cirrhosis of liver SNOMED: 91734885 (3) Septic shock ICD Codes: A41.9 - Sepsis, unspecified organism; R65.21 - Severe sepsis with septic shock SNOMED: 12147536 (4) Sepsis ICD Codes: A41.9 - Sepsis, unspecified organism SNOMED: 31788071 (5) Respiratory disorder with ventilator dependence ICD Codes: J98.9 - Respiratory disorder, unspecified; Z99.11 - Dependence on respirator [ventilator] status SNOMED: 32812532, 132059553 (6) Normocytic anemia ICD Codes: D64.9 - Anemia, unspecified SNOMED: 144846664 Status: not improved Status Narrative Discussed with Dr. Reynolds. Assessment/Plan CT AP reviewed >> - no biliary ductal dilation - Evidence of hepatic cirrhosis, ?FRIAS - Small amount of ascites - Surgically absent gallbladder new onset of shock liver CEA elevation 10.5 hepatitis panel negative not stable for GI procedures, intubated maintain NPO + IVFs OB stool r/o GI bleed monitor H&H, prn transfusions ppi broad spectrum abx fu labs, trend LFTs The patient was seen and examined at bedside and all new and available data was reviewed in the patients chart. I agree with the above findings, impression and plan. (Patient seen earlier today. Signature stamp does not reflect patient encounter time.). - Samuel Reynolds MD Subjective Subjective limited Objective Last 24 Hour Vital Signs Date Time Temp Pulse Resp B/P (MAP) Pulse Ox O2 Delivery O2 Flow Rate FiO2 10/11/18 12:00 108 10/11/18 11:15 96 24 60 10/11/18 09:00 92 11 81/50 (60) 100 10/11/18 08:40 95 24 60 10/11/18 08:30 94 11 90/51 (64) 100 10/11/18 08:00 92 10/11/18 08:00 60 10/11/18 08:00 99.0 92 22 96/51 (66) 100 10/11/18 08:00 Mechanical Ventilator 10/11/18 07:30 92 22 96/51 (66) 100 10/11/18 07:20 10/11/18 07:00 92 17 93/50 (64) 100 10/11/18 06:40 101 24 60 10/11/18 06:30 91 22 98/66 (77) 100 10/11/18 06:00 92 24 100/47 (64) 100 10/11/18 06:00 100/47 10/11/18 05:30 107 23 101/46 (64) 100 10/11/18 05:15 107 21 109/48 (68) 100 10/11/18 05:15 110 24 60 10/11/18 05:00 114 24 109/66 (80) 99 10/11/18 05:00 99/55 10/11/18 05:00 101/63 10/11/18 04:45 95 24 96/50 (65) 100 10/11/18 04:30 92 24 96/48 (64) 99 10/11/18 04:15 94 24 93/49 (64) 99 10/11/18 04:00 98 10/11/18 04:00 99.8 92 24 99/52 (68) 100 10/11/18 04:00 60 10/11/18 04:00 Mechanical Ventilator 10/11/18 03:45 94 24 93/52 (66) 99 10/11/18 03:30 91 25 102/53 (69) 100 10/11/18 03:29 98 22 60 10/11/18 03:15 93 24 95/50 (65) 99 10/11/18 03:00 101/52 10/11/18 03:00 95 24 94/50 (65) 99 10/11/18 02:45 94 24 101/52 (68) 99 10/11/18 02:30 96 24 97/50 (66) 99 10/11/18 02:15 95 24 96/52 (67) 99 10/11/18 02:00 96/52 10/11/18 02:00 102 24 103/55 (71) 98 10/11/18 01:45 96 24 94/51 (65) 99 10/11/18 01:30 99 24 60 10/11/18 01:30 96 24 86/48 (61) 98 10/11/18 01:00 102 24 89/49 (62) 96 10/11/18 01:00 98/50 10/11/18 00:30 102 24 92/47 (62) 98 10/11/18 00:00 110 10/11/18 00:00 110/53 10/11/18 00:00 99.8 103 24 104/50 (68) 98 10/11/18 00:00 Mechanical Ventilator 10/11/18 00:00 60 10/10/18 23:45 106 24 115/48 (70) 98 10/10/18 23:45 106 24 115/48 (70) 98 10/10/18 23:30 106 24 110/50 (70) 98 10/10/18 23:30 106 24 110/50 (70) 98 10/10/18 23:21 110 24 60 10/10/18 23:15 108 24 105/48 (67) 98 10/10/18 23:00 105/48 10/10/18 23:00 105/48 10/10/18 23:00 111 24 104/50 (68) 98 10/10/18 23:00 111 24 104/50 (68) 98 10/10/18 22:45 111 24 108/48 (68) 98 10/10/18 22:30 113 24 114/48 (70) 99 10/10/18 22:15 114 24 111/48 (69) 99 10/10/18 22:00 111/48 10/10/18 22:00 111/48 10/10/18 22:00 117 24 113/51 (71) 98 10/10/18 21:45 116 24 116/50 (72) 98 10/10/18 21:30 121 20 60 10/10/18 21:30 118 24 112/46 (68) 98 10/10/18 21:00 117 24 109/42 (64) 98 10/10/18 21:00 109/45 10/10/18 21:00 109/45 10/10/18 20:45 117 24 104/50 (68) 99 10/10/18 20:30 116 24 106/45 (65) 98 10/10/18 20:15 117 24 102/41 (61) 97 10/10/18 20:00 121 10/10/18 20:00 Mechanical Ventilator 10/10/18 20:00 60 10/10/18 20:00 102/41 10/10/18 20:00 102/41 10/10/18 20:00 99.3 125 30 97/53 (68) 98 10/10/18 19:45 127 23 91/56 (68) 100 10/10/18 19:30 126 31 107/46 (66) 100 10/10/18 19:30 126 24 60 10/10/18 19:15 124 23 109/47 (67) 100 10/10/18 19:00 109/47 10/10/18 19:00 109/47 10/10/18 19:00 126 23 103/49 (67) 100 10/10/18 18:30 122 24 121/44 (69) 100 10/10/18 18:15 125 24 120/45 (70) 100 10/10/18 18:00 123 24 116/48 (70) 100 10/10/18 17:59 123 23 116/44 (68) 100 10/10/18 17:45 125 24 119/50 (73) 100 10/10/18 17:30 122 24 115/43 (67) 100 10/10/18 17:29 113/42 10/10/18 17:16 113/42 10/10/18 17:00 99.2 128 24 113/42 (65) 100 10/10/18 16:53 127 24 100 10/10/18 16:30 128 24 112/43 (66) 100 10/10/18 16:00 100 10/10/18 16:00 Endotracheal Tube 10/10/18 16:00 128 24 115/43 (67) 100 10/10/18 16:00 125 10/10/18 15:30 123 24 116/42 (66) 100 10/10/18 15:00 122 24 112/46 (68) 100 10/10/18 14:42 122 24 100 10/10/18 14:30 122 15 82/37 (52) 100 10/10/18 14:00 126 22 104/49 (67) 100 10/10/18 13:30 123 23 103/49 (67) 100 Intake and Output 10/10/18 10/11/18 19:00 07:00 Intake Total 2309.662 ml 1384.608 ml Output Total 124 ml 160 ml Balance 2185.662 ml 1224.608 ml Intake IV Total 2309.662 ml 1384.608 ml Output Urine Total 124 ml 160 ml Laboratory Tests Test 10/10/18 19:05 10/11/18 04:00 10/11/18 08:40 10/11/18 10:00 Activated Partial Thromboplast Time > 150 SEC (23-33) *H 81 SEC (23-33) H Lactic Acid Level 4.60 mmol/L (0.66-2.22) H 3.80 mmol/L (0.4-2.0) H 3.40 mmol/L (0.4-2.0) H White Blood Count 15.3 K/UL (4.8-10.8) #H Red Blood Count 2.35 M/UL (4.20-5.40) L Hemoglobin 7.5 G/DL (12.0-16.0) L Hematocrit 22.7 % (37.0-47.0) L Mean Corpuscular Volume 97 FL (80-99) Mean Corpuscular Hemoglobin 31.8 PG (27.0-31.0) H Mean Corpuscular Hemoglobin Concent 32.8 G/DL (32.0-36.0) Red Cell Distribution Width 17.1 % (11.6-14.8) H Platelet Count 115 K/UL (150-450) L Mean Platelet Volume 6.0 FL (6.5-10.1) L Neutrophils (%) (Auto) % (45.0-75.0) Lymphocytes (%) (Auto) % (20.0-45.0) Monocytes (%) (Auto) % (1.0-10.0) Eosinophils (%) (Auto) % (0.0-3.0) Basophils (%) (Auto) % (0.0-2.0) Differential Total Cells Counted 100 Neutrophils % (Manual) 95 % (45-75) H Lymphocytes % (Manual) 2 % (20-45) L Monocytes % (Manual) 3 % (1-10) Eosinophils % (Manual) 0 % (0-3) Basophils % (Manual) 0 % (0-2) Band Neutrophils 0 % (0-8) Platelet Estimate Decreased L Platelet Morphology Normal Hypochromasia 1+ Anisocytosis 1+ Sodium Level 133 MMOL/L (136-145) L Potassium Level 4.4 MMOL/L (3.5-5.1) Chloride Level 103 MMOL/L (98-107) Carbon Dioxide Level 16 MMOL/L (21-32) L Anion Gap 14 mmol/L (5-15) Blood Urea Nitrogen 38 mg/dL (7-18) H Creatinine 2.7 MG/DL (0.55-1.30) H Estimat Glomerular Filtration Rate 18.1 mL/min (>60) Glucose Level 334 MG/DL (74-106) H Uric Acid 8.1 MG/DL (2.6-7.2) H Calcium Level 6.5 MG/DL (8.5-10.1) L Phosphorus Level 5.2 MG/DL (2.5-4.9) H Magnesium Level 1.5 MG/DL (1.8-2.4) L Total Bilirubin 1.2 MG/DL (0.2-1.0) H Direct Bilirubin 0.7 MG/DL (0.0-0.3) H Gamma Glutamyl Transpeptidase 680 U/L (5-85) H Aspartate Amino Transf (AST/SGOT) 6647 U/L (15-37) H Alanine Aminotransferase (ALT/SGPT) 3982 U/L (12-78) H Alkaline Phosphatase 489 U/L (46-116) H Ammonia 62 umol/L (11-32) H Total Creatine Kinase 3542 U/L (26-308) H Troponin I 1.034 ng/mL (0.000-0.056) Pro-B-Type Natriuretic Peptide 6076 pg/mL (0-125) H Total Protein 4.3 G/DL (6.4-8.2) L Albumin 1.5 G/DL (3.4-5.0) L Globulin 2.8 g/dL Albumin/Globulin Ratio 0.5 (1.0-2.7) L Amylase Level 48 U/L (25-115) Lipase 199 U/L (73-393) Cortisol AM Sample Pending Arterial Blood pH 7.454 (7.350-7.450) Arterial Blood Partial Pressure CO2 19.7 mmHg (35.0-45.0) *L Arterial Blood Partial Pressure O2 158.7 mmHg (75.0-100.0) H Arterial Blood HCO3 13.5 mmol/L (22.0-26.0) *L Arterial Blood Oxygen Saturation 98.8 % (95-100) Arterial Blood Base Excess -9.3 (-2-2) *L Ortiz Test Positive Height (Feet): 5 Height (Inches): 1.00 Weight (Pounds): 242 General Appearance: alert Respiratory/Chest: normal breath sounds, other - intubated Abdominal Exam: non tender, soft Cole Serna NP Oct 11, 2018 13:25
--- NOTE | 2018-10-11 13:36 | NUR ---
RADIOLOGY DEPT CHEST X-RAY FOR RE-POSITIONED ETT PLMT PERFORMED.-[email or web address]
--- NOTE | 2018-10-11 14:12 | General Progress Note ---
Assessment/Plan Problem List: (1) Hypotension ICD Codes: I95.9 - Hypotension, unspecified SNOMED: 61695522 (2) Hyperglycemia ICD Codes: R73.9 - Hyperglycemia, unspecified SNOMED: 59309627 (3) Dyspnea ICD Codes: R06.00 - Dyspnea, unspecified SNOMED: 028802255 (4) Hypoxemia ICD Codes: R09.02 - Hypoxemia SNOMED: 996185083 (5) Contusion of left knee ICD Codes: S80.02XA - Contusion of left knee, initial encounter SNOMED: 16585566 (6) Sepsis ICD Codes: A41.9 - Sepsis, unspecified organism SNOMED: 82716722 (7) Septic shock ICD Codes: A41.9 - Sepsis, unspecified organism; R65.21 - Severe sepsis with septic shock SNOMED: 26798684 (8) Liver cirrhosis ICD Codes: K74.60 - Unspecified cirrhosis of liver SNOMED: 07216355 (9) Pneumonia ICD Codes: J18.9 - Pneumonia, unspecified organism SNOMED: 826148662 (10) Respiratory disorder with ventilator dependence ICD Codes: J98.9 - Respiratory disorder, unspecified; Z99.11 - Dependence on respirator [ventilator] status SNOMED: 12363412, 515769998 (11) Shock liver ICD Codes: K72.00 - Acute and subacute hepatic failure without coma SNOMED: 829719435 Status: unchanged Assessment/Plan shock liver cihrrosis septic shock 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 morbid intubated respiratory failure elev LFT Subjective ROS Limited/Unobtainable: Yes Respiratory: Reports: no symptoms Allergies: Coded Allergies: No Known Allergies (Unverified , 05/06/18) Objective Last 24 Hour Vital Signs Date Time Temp Pulse Resp B/P (MAP) Pulse Ox O2 Delivery O2 Flow Rate FiO2 10/11/18 12:00 108 10/11/18 12:00 Mechanical Ventilator 10/11/18 12:00 40 10/11/18 11:15 96 24 60 10/11/18 11:00 95 24 124/59 (80) 100 10/11/18 10:30 91 24 88/46 (60) 100 10/11/18 10:00 92 24 86/46 (59) 100 10/11/18 09:30 91 24 97/50 (66) 100 10/11/18 09:00 40 10/11/18 09:00 92 11 81/50 (60) 100 10/11/18 08:40 95 24 60 10/11/18 08:30 94 11 90/51 (64) 100 10/11/18 08:00 92 10/11/18 08:00 60 10/11/18 08:00 99.0 92 22 96/51 (66) 100 10/11/18 08:00 Mechanical Ventilator 10/11/18 07:30 92 22 96/51 (66) 100 10/11/18 07:20 10/11/18 07:00 92 17 93/50 (64) 100 10/11/18 06:40 101 24 60 10/11/18 06:30 91 22 98/66 (77) 100 10/11/18 06:00 92 24 100/47 (64) 100 10/11/18 06:00 100/47 10/11/18 05:30 107 23 101/46 (64) 100 10/11/18 05:15 107 21 109/48 (68) 100 10/11/18 05:15 110 24 60 10/11/18 05:00 114 24 109/66 (80) 99 10/11/18 05:00 99/55 10/11/18 05:00 101/63 10/11/18 04:45 95 24 96/50 (65) 100 10/11/18 04:30 92 24 96/48 (64) 99 10/11/18 04:15 94 24 93/49 (64) 99 10/11/18 04:00 98 10/11/18 04:00 99.8 92 24 99/52 (68) 100 10/11/18 04:00 60 10/11/18 04:00 Mechanical Ventilator 10/11/18 03:45 94 24 93/52 (66) 99 10/11/18 03:30 91 25 102/53 (69) 100 10/11/18 03:29 98 22 60 10/11/18 03:15 93 24 95/50 (65) 99 10/11/18 03:00 101/52 10/11/18 03:00 95 24 94/50 (65) 99 10/11/18 02:45 94 24 101/52 (68) 99 10/11/18 02:30 96 24 97/50 (66) 99 10/11/18 02:15 95 24 96/52 (67) 99 10/11/18 02:00 96/52 10/11/18 02:00 102 24 103/55 (71) 98 10/11/18 01:45 96 24 94/51 (65) 99 10/11/18 01:30 99 24 60 10/11/18 01:30 96 24 86/48 (61) 98 10/11/18 01:00 102 24 89/49 (62) 96 10/11/18 01:00 98/50 10/11/18 00:30 102 24 92/47 (62) 98 10/11/18 00:00 110 10/11/18 00:00 110/53 10/11/18 00:00 99.8 103 24 104/50 (68) 98 10/11/18 00:00 Mechanical Ventilator 10/11/18 00:00 60 10/10/18 23:45 106 24 115/48 (70) 98 10/10/18 23:45 106 24 115/48 (70) 98 10/10/18 23:30 106 24 110/50 (70) 98 10/10/18 23:30 106 24 110/50 (70) 98 10/10/18 23:21 110 24 60 10/10/18 23:15 108 24 105/48 (67) 98 10/10/18 23:00 105/48 10/10/18 23:00 105/48 10/10/18 23:00 111 24 104/50 (68) 98 10/10/18 23:00 111 24 104/50 (68) 98 10/10/18 22:45 111 24 108/48 (68) 98 10/10/18 22:30 113 24 114/48 (70) 99 10/10/18 22:15 114 24 111/48 (69) 99 10/10/18 22:00 111/48 10/10/18 22:00 111/48 10/10/18 22:00 117 24 113/51 (71) 98 10/10/18 21:45 116 24 116/50 (72) 98 10/10/18 21:30 121 20 60 10/10/18 21:30 118 24 112/46 (68) 98 10/10/18 21:00 117 24 109/42 (64) 98 10/10/18 21:00 109/45 10/10/18 21:00 109/45 10/10/18 20:45 117 24 104/50 (68) 99 10/10/18 20:30 116 24 106/45 (65) 98 10/10/18 20:15 117 24 102/41 (61) 97 10/10/18 20:00 121 10/10/18 20:00 Mechanical Ventilator 10/10/18 20:00 60 10/10/18 20:00 102/41 10/10/18 20:00 102/41 10/10/18 20:00 99.3 125 30 97/53 (68) 98 10/10/18 19:45 127 23 91/56 (68) 100 10/10/18 19:30 126 31 107/46 (66) 100 10/10/18 19:30 126 24 60 10/10/18 19:15 124 23 109/47 (67) 100 10/10/18 19:00 109/47 10/10/18 19:00 109/47 10/10/18 19:00 126 23 103/49 (67) 100 10/10/18 18:30 122 24 121/44 (69) 100 10/10/18 18:15 125 24 120/45 (70) 100 10/10/18 18:00 123 24 116/48 (70) 100 10/10/18 17:59 123 23 116/44 (68) 100 10/10/18 17:45 125 24 119/50 (73) 100 10/10/18 17:30 122 24 115/43 (67) 100 10/10/18 17:29 113/42 10/10/18 17:16 113/42 10/10/18 17:00 99.2 128 24 113/42 (65) 100 10/10/18 16:53 127 24 100 10/10/18 16:30 128 24 112/43 (66) 100 10/10/18 16:00 100 10/10/18 16:00 Endotracheal Tube 10/10/18 16:00 128 24 115/43 (67) 100 10/10/18 16:00 125 10/10/18 15:30 123 24 116/42 (66) 100 10/10/18 15:00 122 24 112/46 (68) 100 10/10/18 14:42 122 24 100 10/10/18 14:30 122 15 82/37 (52) 100 Intake and Output 10/10/18 10/11/18 19:00 07:00 Intake Total 2309.662 ml 1384.608 ml Output Total 124 ml 160 ml Balance 2185.662 ml 1224.608 ml Intake IV Total 2309.662 ml 1384.608 ml Output Urine Total 124 ml 160 ml Laboratory Tests 10/10/18 19:05: Activated Partial Thromboplast Time > 150*H, Lactic Acid Level 4.60H 10/11/18 04:00: Activated Partial Thromboplast Time 81H, Lactic Acid Level 3.80H, White Blood Count 15.3#H, Red Blood Count 2.35L, Hemoglobin 7.5L, Hematocrit 22.7L, Mean Corpuscular Volume 97, Mean Corpuscular Hemoglobin 31.8H, Mean Corpuscular Hemoglobin Concent 32.8, Red Cell Distribution Width 17.1H, Platelet Count 115L , Mean Platelet Volume 6.0L, Neutrophils (%) (Auto) , Lymphocytes (%) (Auto) , Monocytes (%) (Auto) , Eosinophils (%) (Auto) , Basophils (%) (Auto) , Differential Total Cells Counted 100, Neutrophils % (Manual) 95H, Lymphocytes % (Manual) 2L, Monocytes % (Manual) 3, Eosinophils % (Manual) 0, Basophils % ( Manual) 0, Band Neutrophils 0, Platelet Estimate DecreasedL, Platelet Morphology Normal, Hypochromasia 1+, Anisocytosis 1+, Sodium Level 133L, Potassium Level 4.4, Chloride Level 103, Carbon Dioxide Level 16L, Anion Gap 14 , Blood Urea Nitrogen 38H, Creatinine 2.7H, Estimat Glomerular Filtration Rate 18.1, Glucose Level 334H, Uric Acid 8.1H, Calcium Level 6.5L, Phosphorus Level 5.2H, Magnesium Level 1.5L, Total Bilirubin 1.2H, Direct Bilirubin 0.7H, Gamma Glutamyl Transpeptidase 680H, Aspartate Amino Transf (AST/SGOT) 6647H, Alanine Aminotransferase (ALT/SGPT) 3982H, Alkaline Phosphatase 489H, Ammonia 62H, Total Creatine Kinase 3542H, Troponin I 1.034H, Pro-B-Type Natriuretic Peptide 6076H, Total Protein 4.3L, Albumin 1.5L, Globulin 2.8, Albumin/Globulin Ratio 0.5L, Amylase Level 48, Lipase 199, Cortisol AM Sample [Pending] 10/11/18 08:40: Arterial Blood pH 7.454H, Arterial Blood Partial Pressure CO2 19.7*L, Arterial Blood Partial Pressure O2 158.7H, Arterial Blood HCO3 13.5*L, Arterial Blood Oxygen Saturation 98.8, Arterial Blood Base Excess -9.3*L, Ortiz Test Positive 10/11/18 10:00: Lactic Acid Level 3.40H Height (Feet): 5 Height (Inches): 1.00 Weight (Pounds): 242 Cardiovascular: normal rate Abdomen: soft Michael Kelley MD Oct 11, 2018 14:12
--- NOTE | 2018-10-11 15:10 | Nephrology Progress Note ---
Assessment/Plan Problem List: (1) JONNATHAN (acute kidney injury) (2) Shock liver (3) Septic shock (4) Respiratory disorder with ventilator dependence Assessment - Acute Oliguric Renal Failure - Respiratory disorder with ventilator dependence - Septic shock , Leukocytosis - Pneumonia - Liver cirrhosis - Obese - Anemia . Plan ? transfuse 2 units to improve renal perfusion Hemodynamic support Pulmunary support Monitor renal parameters avoid nephrotoxics as best as possible per orders Subjective ROS Limited/Unobtainable: Yes Objective Objective Last 24 Hour Vital Signs Date Time Temp Pulse Resp B/P (MAP) Pulse Ox O2 Delivery O2 Flow Rate FiO2 10/11/18 14:00 111 27 132/57 (82) 100 10/11/18 13:30 110 24 114/52 (72) 100 10/11/18 13:00 107 24 105/58 (74) 100 10/11/18 12:50 97 24 60 10/11/18 12:30 108 24 114/58 (76) 100 10/11/18 12:00 108 10/11/18 12:00 99.0 93 24 100/48 (65) 100 10/11/18 12:00 Mechanical Ventilator 10/11/18 12:00 40 10/11/18 11:30 93 24 94/51 (65) 100 10/11/18 11:15 96 24 60 10/11/18 11:00 95 24 124/59 (80) 100 10/11/18 10:30 91 24 88/46 (60) 100 10/11/18 10:00 92 24 86/46 (59) 100 10/11/18 09:30 91 24 97/50 (66) 100 10/11/18 09:00 40 10/11/18 09:00 92 11 81/50 (60) 100 10/11/18 08:40 95 24 60 10/11/18 08:30 94 11 90/51 (64) 100 10/11/18 08:00 92 10/11/18 08:00 60 10/11/18 08:00 99.0 92 22 96/51 (66) 100 10/11/18 08:00 Mechanical Ventilator 10/11/18 07:30 92 22 96/51 (66) 100 10/11/18 07:20 10/11/18 07:00 92 17 93/50 (64) 100 10/11/18 06:40 101 24 60 10/11/18 06:30 91 22 98/66 (77) 100 10/11/18 06:00 92 24 100/47 (64) 100 10/11/18 06:00 100/47 10/11/18 05:30 107 23 101/46 (64) 100 10/11/18 05:15 107 21 109/48 (68) 100 10/11/18 05:15 110 24 60 10/11/18 05:00 114 24 109/66 (80) 99 10/11/18 05:00 99/55 10/11/18 05:00 101/63 10/11/18 04:45 95 24 96/50 (65) 100 10/11/18 04:30 92 24 96/48 (64) 99 10/11/18 04:15 94 24 93/49 (64) 99 10/11/18 04:00 98 10/11/18 04:00 99.8 92 24 99/52 (68) 100 10/11/18 04:00 60 10/11/18 04:00 Mechanical Ventilator 10/11/18 03:45 94 24 93/52 (66) 99 10/11/18 03:30 91 25 102/53 (69) 100 10/11/18 03:29 98 22 60 10/11/18 03:15 93 24 95/50 (65) 99 10/11/18 03:00 101/52 10/11/18 03:00 95 24 94/50 (65) 99 10/11/18 02:45 94 24 101/52 (68) 99 10/11/18 02:30 96 24 97/50 (66) 99 10/11/18 02:15 95 24 96/52 (67) 99 10/11/18 02:00 96/52 10/11/18 02:00 102 24 103/55 (71) 98 10/11/18 01:45 96 24 94/51 (65) 99 10/11/18 01:30 99 24 60 10/11/18 01:30 96 24 86/48 (61) 98 10/11/18 01:00 102 24 89/49 (62) 96 10/11/18 01:00 98/50 10/11/18 00:30 102 24 92/47 (62) 98 10/11/18 00:00 110 10/11/18 00:00 110/53 10/11/18 00:00 99.8 103 24 104/50 (68) 98 10/11/18 00:00 Mechanical Ventilator 10/11/18 00:00 60 10/10/18 23:45 106 24 115/48 (70) 98 10/10/18 23:45 106 24 115/48 (70) 98 10/10/18 23:30 106 24 110/50 (70) 98 10/10/18 23:30 106 24 110/50 (70) 98 10/10/18 23:21 110 24 60 10/10/18 23:15 108 24 105/48 (67) 98 10/10/18 23:00 105/48 10/10/18 23:00 105/48 10/10/18 23:00 111 24 104/50 (68) 98 10/10/18 23:00 111 24 104/50 (68) 98 10/10/18 22:45 111 24 108/48 (68) 98 10/10/18 22:30 113 24 114/48 (70) 99 10/10/18 22:15 114 24 111/48 (69) 99 10/10/18 22:00 111/48 10/10/18 22:00 111/48 10/10/18 22:00 117 24 113/51 (71) 98 10/10/18 21:45 116 24 116/50 (72) 98 10/10/18 21:30 121 20 60 10/10/18 21:30 118 24 112/46 (68) 98 10/10/18 21:00 117 24 109/42 (64) 98 10/10/18 21:00 109/45 10/10/18 21:00 109/45 10/10/18 20:45 117 24 104/50 (68) 99 10/10/18 20:30 116 24 106/45 (65) 98 10/10/18 20:15 117 24 102/41 (61) 97 10/10/18 20:00 121 10/10/18 20:00 Mechanical Ventilator 10/10/18 20:00 60 10/10/18 20:00 102/41 10/10/18 20:00 102/41 10/10/18 20:00 99.3 125 30 97/53 (68) 98 10/10/18 19:45 127 23 91/56 (68) 100 10/10/18 19:30 126 31 107/46 (66) 100 10/10/18 19:30 126 24 60 10/10/18 19:15 124 23 109/47 (67) 100 10/10/18 19:00 109/47 10/10/18 19:00 109/47 10/10/18 19:00 126 23 103/49 (67) 100 10/10/18 18:30 122 24 121/44 (69) 100 10/10/18 18:15 125 24 120/45 (70) 100 10/10/18 18:00 123 24 116/48 (70) 100 10/10/18 17:59 123 23 116/44 (68) 100 10/10/18 17:45 125 24 119/50 (73) 100 10/10/18 17:30 122 24 115/43 (67) 100 10/10/18 17:29 113/42 10/10/18 17:16 113/42 10/10/18 17:00 99.2 128 24 113/42 (65) 100 10/10/18 16:53 127 24 100 10/10/18 16:30 128 24 112/43 (66) 100 10/10/18 16:00 100 10/10/18 16:00 Endotracheal Tube 10/10/18 16:00 128 24 115/43 (67) 100 10/10/18 16:00 125 10/10/18 15:30 123 24 116/42 (66) 100 Intake and Output 10/10/18 10/11/18 19:00 07:00 Intake Total 2309.662 ml 1527.508 ml Output Total 124 ml 160 ml Balance 2185.662 ml 1367.508 ml Intake IV Total 2309.662 ml 1527.508 ml Output Urine Total 124 ml 160 ml Laboratory Tests 10/10/18 19:05: Activated Partial Thromboplast Time > 150*H, Lactic Acid Level 4.60H 10/11/18 04:00: Activated Partial Thromboplast Time 81H, Lactic Acid Level 3.80H, White Blood Count 15.3#H, Red Blood Count 2.35L, Hemoglobin 7.5L, Hematocrit 22.7L, Mean Corpuscular Volume 97, Mean Corpuscular Hemoglobin 31.8H, Mean Corpuscular Hemoglobin Concent 32.8, Red Cell Distribution Width 17.1H, Platelet Count 115L , Mean Platelet Volume 6.0L, Neutrophils (%) (Auto) , Lymphocytes (%) (Auto) , Monocytes (%) (Auto) , Eosinophils (%) (Auto) , Basophils (%) (Auto) , Differential Total Cells Counted 100, Neutrophils % (Manual) 95H, Lymphocytes % (Manual) 2L, Monocytes % (Manual) 3, Eosinophils % (Manual) 0, Basophils % ( Manual) 0, Band Neutrophils 0, Platelet Estimate DecreasedL, Platelet Morphology Normal, Hypochromasia 1+, Anisocytosis 1+, Sodium Level 133L, Potassium Level 4.4, Chloride Level 103, Carbon Dioxide Level 16L, Anion Gap 14 , Blood Urea Nitrogen 38H, Creatinine 2.7H, Estimat Glomerular Filtration Rate 18.1, Glucose Level 334H, Uric Acid 8.1H, Calcium Level 6.5L, Phosphorus Level 5.2H, Magnesium Level 1.5L, Total Bilirubin 1.2H, Direct Bilirubin 0.7H, Gamma Glutamyl Transpeptidase 680H, Aspartate Amino Transf (AST/SGOT) 6647H, Alanine Aminotransferase (ALT/SGPT) 3982H, Alkaline Phosphatase 489H, Ammonia 62H, Total Creatine Kinase 3542H, Troponin I 1.034H, Pro-B-Type Natriuretic Peptide 6076H, Total Protein 4.3L, Albumin 1.5L, Globulin 2.8, Albumin/Globulin Ratio 0.5L, Amylase Level 48, Lipase 199, Cortisol AM Sample 8.0 10/11/18 08:40: Arterial Blood pH 7.454H, Arterial Blood Partial Pressure CO2 19.7*L, Arterial Blood Partial Pressure O2 158.7H, Arterial Blood HCO3 13.5*L, Arterial Blood Oxygen Saturation 98.8, Arterial Blood Base Excess -9.3*L, Ortiz Test Positive 10/11/18 10:00: Lactic Acid Level 3.40H Height (Feet): 5 Height (Inches): 1.00 Weight (Pounds): 242 EENT: other - vented Cardiovascular: tachycardia Respiratory/Chest: decreased breath sounds Abdomen: distended Alex Cueto MD Oct 11, 2018 15:10
--- NOTE | 2018-10-11 15:30 | NUR ---
NURSE NOTES: Dr Montanez assessed patient bedside. Heparin drip dc'd. Will continue to monitor and carry out plan of care.
--- NOTE | 2018-10-11 15:38 | Cardiac Electrophysiology PN ---
Assessment/Plan Assessment/Plan 1. Septic shock, etiology is not clear. The patient is on broad spectrum IV antibiotic as well as vasopressin, and Levophed. Off dopamine today. Blood transfusion pending. 2. Troponin leak. The levels are flat and likely due to this patient's sepsis and septic shock. Her echocardiogram showed ejection fraction 60% to 65% and EKG showed no acute ischemic changes. DC heparin drip 3. Respiratory failure on the Vent 4. Diabetes. 5. Renal failure. 6. Lactic acidosis, sepsis 7. Morbid obesity. Subjective Subjective In ICU on Vent and Levophed 18 mcg and Vaso 0.04 and off Dopamine. In Sinus tach Objective Last 24 Hour Vital Signs Date Time Temp Pulse Resp B/P (MAP) Pulse Ox O2 Delivery O2 Flow Rate FiO2 10/11/18 14:00 111 27 132/57 (82) 100 10/11/18 13:30 110 24 114/52 (72) 100 10/11/18 13:00 107 24 105/58 (74) 100 10/11/18 12:50 97 24 60 10/11/18 12:30 108 24 114/58 (76) 100 10/11/18 12:00 108 10/11/18 12:00 99.0 93 24 100/48 (65) 100 10/11/18 12:00 Mechanical Ventilator 10/11/18 12:00 40 10/11/18 11:30 93 24 94/51 (65) 100 10/11/18 11:15 96 24 60 10/11/18 11:00 95 24 124/59 (80) 100 10/11/18 10:30 91 24 88/46 (60) 100 10/11/18 10:00 92 24 86/46 (59) 100 10/11/18 09:30 91 24 97/50 (66) 100 10/11/18 09:00 40 10/11/18 09:00 92 11 81/50 (60) 100 10/11/18 08:40 95 24 60 10/11/18 08:30 94 11 90/51 (64) 100 10/11/18 08:00 92 10/11/18 08:00 60 10/11/18 08:00 99.0 92 22 96/51 (66) 100 10/11/18 08:00 Mechanical Ventilator 10/11/18 07:30 92 22 96/51 (66) 100 10/11/18 07:20 10/11/18 07:00 92 17 93/50 (64) 100 10/11/18 06:40 101 24 60 10/11/18 06:30 91 22 98/66 (77) 100 10/11/18 06:00 92 24 100/47 (64) 100 10/11/18 06:00 100/47 10/11/18 05:30 107 23 101/46 (64) 100 10/11/18 05:15 107 21 109/48 (68) 100 10/11/18 05:15 110 24 60 10/11/18 05:00 114 24 109/66 (80) 99 10/11/18 05:00 99/55 10/11/18 05:00 101/63 10/11/18 04:45 95 24 96/50 (65) 100 10/11/18 04:30 92 24 96/48 (64) 99 10/11/18 04:15 94 24 93/49 (64) 99 10/11/18 04:00 98 10/11/18 04:00 99.8 92 24 99/52 (68) 100 10/11/18 04:00 60 10/11/18 04:00 Mechanical Ventilator 10/11/18 03:45 94 24 93/52 (66) 99 10/11/18 03:30 91 25 102/53 (69) 100 10/11/18 03:29 98 22 60 10/11/18 03:15 93 24 95/50 (65) 99 10/11/18 03:00 101/52 10/11/18 03:00 95 24 94/50 (65) 99 10/11/18 02:45 94 24 101/52 (68) 99 10/11/18 02:30 96 24 97/50 (66) 99 10/11/18 02:15 95 24 96/52 (67) 99 10/11/18 02:00 96/52 10/11/18 02:00 102 24 103/55 (71) 98 10/11/18 01:45 96 24 94/51 (65) 99 10/11/18 01:30 99 24 60 10/11/18 01:30 96 24 86/48 (61) 98 10/11/18 01:00 102 24 89/49 (62) 96 10/11/18 01:00 98/50 10/11/18 00:30 102 24 92/47 (62) 98 10/11/18 00:00 110 10/11/18 00:00 110/53 10/11/18 00:00 99.8 103 24 104/50 (68) 98 10/11/18 00:00 Mechanical Ventilator 10/11/18 00:00 60 10/10/18 23:45 106 24 115/48 (70) 98 10/10/18 23:45 106 24 115/48 (70) 98 10/10/18 23:30 106 24 110/50 (70) 98 10/10/18 23:30 106 24 110/50 (70) 98 10/10/18 23:21 110 24 60 10/10/18 23:15 108 24 105/48 (67) 98 10/10/18 23:00 105/48 10/10/18 23:00 105/48 10/10/18 23:00 111 24 104/50 (68) 98 10/10/18 23:00 111 24 104/50 (68) 98 10/10/18 22:45 111 24 108/48 (68) 98 10/10/18 22:30 113 24 114/48 (70) 99 10/10/18 22:15 114 24 111/48 (69) 99 10/10/18 22:00 111/48 10/10/18 22:00 111/48 10/10/18 22:00 117 24 113/51 (71) 98 10/10/18 21:45 116 24 116/50 (72) 98 10/10/18 21:30 121 20 60 10/10/18 21:30 118 24 112/46 (68) 98 10/10/18 21:00 117 24 109/42 (64) 98 10/10/18 21:00 109/45 10/10/18 21:00 109/45 10/10/18 20:45 117 24 104/50 (68) 99 10/10/18 20:30 116 24 106/45 (65) 98 10/10/18 20:15 117 24 102/41 (61) 97 10/10/18 20:00 121 10/10/18 20:00 Mechanical Ventilator 10/10/18 20:00 60 10/10/18 20:00 102/41 10/10/18 20:00 102/41 10/10/18 20:00 99.3 125 30 97/53 (68) 98 10/10/18 19:45 127 23 91/56 (68) 100 10/10/18 19:30 126 31 107/46 (66) 100 10/10/18 19:30 126 24 60 10/10/18 19:15 124 23 109/47 (67) 100 10/10/18 19:00 109/47 10/10/18 19:00 109/47 10/10/18 19:00 126 23 103/49 (67) 100 10/10/18 18:30 122 24 121/44 (69) 100 10/10/18 18:15 125 24 120/45 (70) 100 10/10/18 18:00 123 24 116/48 (70) 100 10/10/18 17:59 123 23 116/44 (68) 100 10/10/18 17:45 125 24 119/50 (73) 100 10/10/18 17:30 122 24 115/43 (67) 100 10/10/18 17:29 113/42 10/10/18 17:16 113/42 10/10/18 17:00 99.2 128 24 113/42 (65) 100 10/10/18 16:53 127 24 100 10/10/18 16:30 128 24 112/43 (66) 100 10/10/18 16:00 100 10/10/18 16:00 Endotracheal Tube 10/10/18 16:00 128 24 115/43 (67) 100 10/10/18 16:00 125 Intake and Output 10/10/18 10/11/18 19:00 07:00 Intake Total 2309.662 ml 1527.508 ml Output Total 124 ml 160 ml Balance 2185.662 ml 1367.508 ml Intake IV Total 2309.662 ml 1527.508 ml Output Urine Total 124 ml 160 ml Laboratory Tests Test 10/10/18 19:05 10/11/18 04:00 10/11/18 08:40 10/11/18 10:00 Activated Partial Thromboplast Time > 150 SEC (23-33) *H 81 SEC (23-33) H Lactic Acid Level 4.60 mmol/L (0.66-2.22) H 3.80 mmol/L (0.4-2.0) H 3.40 mmol/L (0.4-2.0) H White Blood Count 15.3 K/UL (4.8-10.8) #H Red Blood Count 2.35 M/UL (4.20-5.40) L Hemoglobin 7.5 G/DL (12.0-16.0) L Hematocrit 22.7 % (37.0-47.0) L Mean Corpuscular Volume 97 FL (80-99) Mean Corpuscular Hemoglobin 31.8 PG (27.0-31.0) H Mean Corpuscular Hemoglobin Concent 32.8 G/DL (32.0-36.0) Red Cell Distribution Width 17.1 % (11.6-14.8) H Platelet Count 115 K/UL (150-450) L Mean Platelet Volume 6.0 FL (6.5-10.1) L Neutrophils (%) (Auto) % (45.0-75.0) Lymphocytes (%) (Auto) % (20.0-45.0) Monocytes (%) (Auto) % (1.0-10.0) Eosinophils (%) (Auto) % (0.0-3.0) Basophils (%) (Auto) % (0.0-2.0) Differential Total Cells Counted 100 Neutrophils % (Manual) 95 % (45-75) H Lymphocytes % (Manual) 2 % (20-45) L Monocytes % (Manual) 3 % (1-10) Eosinophils % (Manual) 0 % (0-3) Basophils % (Manual) 0 % (0-2) Band Neutrophils 0 % (0-8) Platelet Estimate Decreased L Platelet Morphology Normal Hypochromasia 1+ Anisocytosis 1+ Sodium Level 133 MMOL/L (136-145) L Potassium Level 4.4 MMOL/L (3.5-5.1) Chloride Level 103 MMOL/L (98-107) Carbon Dioxide Level 16 MMOL/L (21-32) L Anion Gap 14 mmol/L (5-15) Blood Urea Nitrogen 38 mg/dL (7-18) H Creatinine 2.7 MG/DL (0.55-1.30) H Estimat Glomerular Filtration Rate 18.1 mL/min (>60) Glucose Level 334 MG/DL (74-106) H Uric Acid 8.1 MG/DL (2.6-7.2) H Calcium Level 6.5 MG/DL (8.5-10.1) L Phosphorus Level 5.2 MG/DL (2.5-4.9) H Magnesium Level 1.5 MG/DL (1.8-2.4) L Total Bilirubin 1.2 MG/DL (0.2-1.0) H Direct Bilirubin 0.7 MG/DL (0.0-0.3) H Gamma Glutamyl Transpeptidase 680 U/L (5-85) H Aspartate Amino Transf (AST/SGOT) 6647 U/L (15-37) H Alanine Aminotransferase (ALT/SGPT) 3982 U/L (12-78) H Alkaline Phosphatase 489 U/L (46-116) H Ammonia 62 umol/L (11-32) H Total Creatine Kinase 3542 U/L (26-308) H Troponin I 1.034 ng/mL (0.000-0.056) Pro-B-Type Natriuretic Peptide 6076 pg/mL (0-125) H Total Protein 4.3 G/DL (6.4-8.2) L Albumin 1.5 G/DL (3.4-5.0) L Globulin 2.8 g/dL Albumin/Globulin Ratio 0.5 (1.0-2.7) L Amylase Level 48 U/L (25-115) Lipase 199 U/L (73-393) Cortisol AM Sample 8.0 UG/DL Arterial Blood pH 7.454 (7.350-7.450) Arterial Blood Partial Pressure CO2 19.7 mmHg (35.0-45.0) *L Arterial Blood Partial Pressure O2 158.7 mmHg (75.0-100.0) H Arterial Blood HCO3 13.5 mmol/L (22.0-26.0) *L Arterial Blood Oxygen Saturation 98.8 % (95-100) Arterial Blood Base Excess -9.3 (-2-2) *L Ortiz Test Positive Microbiology Date/Time Source Procedure Growth Status 10/09/18 08:51 Blood Blood Culture - Preliminary NO GROWTH AFTER 24 HOURS Resulted 10/09/18 08:51 Blood Blood Culture - Preliminary NO GROWTH AFTER 24 HOURS Resulted 10/10/18 03:10 Stool Clostridium difficile Toxin Assay - Final Complete 10/09/18 15:50 Urine,Clean Catch Urine Culture - Final NO GROWTH AFTER 48 HOURS Complete 10/09/18 09:34 Rectum Received Objective HEAD AND NECK: Shows no JVD. She is orally intubated. LUNGS: Coarse rhonchi. CARDIOVASCULAR: Tachycardic. S1, S2 with no gallop or murmur. ABDOMEN: Obese. EXTREMITIES: No pitting edema. Sean Montanez MD Oct 11, 2018 15:38
--- NOTE | 2018-10-11 15:50 | NUR ---
NURSE NOTES: Dr Cueto called and ordered 2 units of PRBCs. Orders placed for patient. Will draw type and cross and consent patient's . Will carry out MD orders.
--- NOTE | 2018-10-11 16:01 | NUR ---
NURSE NOTES: Patient observed to be drowsy. Patient is resting comfortably bedside. Patient opens her eyes spontaneously and responds to stimulus. Patient does not appear in any acute distress. Family is bedside. Patient is being monitored on the cardiac exercise specialist VSS. Patient is ST on the monitor. Patient is orally intubated with ETT 7.0 with vent settings of AC 20, TV 500 FIO2 40% PEEP 5. Patient received oral care. OGT is connected to low intermittent suction. Patient has a Quiroz with little urine output draining to gravity however is improved. Patient has a RFEM running Heparin at 3 units, Levo 18 mcgs and NS @ 100 ml/hr. Safety measures are in place with bed in the lowest position, locked, call light within reach and side rails x 3 up. Will continue to monitor and follow plan of care.
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
--- NOTE | 2018-10-11 16:31 | Diagnostic Imaging Report ---
Indication: Abdominal distention Technique: Goldstein-scale and duplex images of the upper abdomen were obtained Comparison: Reference made to CT scan 10/09/2018 Findings: Exam is limited; per technologist, patient was difficult to scan due to body habitus and overlying bowel gas Gallbladder is surgically absent. Common bile duct measures mm in diameter. No intrahepatic biliary ductal dilatation. Liver demonstrates coarsened an increased echogenicity. There are capsular calcifications. Hepatic surface nodularity is noted. Portal vein and hepatic veins are patent. Pancreas is obscured by bowel gas. Spleen is unremarkable. Left kidney measures 12.1 cm in length. Right kidney measures 11.8 cm length. Both kidneys demonstrate normal echogenicity. There is no hydronephrosis. No focal abnormality . Abdominal aorta is obscured by bowel gas . Small amount of ascites fluid is present Impression: Limited exam, as described. Note inability to visualize the pancreas and abdominal aorta Increased hepatic echogenicity and surface nodularity, consistent with hepatic cirrhosis, also described on prior CT scan Trace ascites, also described previously Surgically absent gallbladder Negative for dilated bile ducts
--- NOTE | 2018-10-11 17:00 | NUR ---
NURSE NOTES: Patient was cleaned, gown changed, repositioned. VSS and patient is not in any acute distress. Will continue to monitor.
--- NOTE | 2018-10-11 17:27 | Diagnostic Imaging Report ---
Indication: Malpositioned endotracheal tube Technique: One view of the chest Comparison: 4 hours earlier Findings: Interim improvement in position of previously malpositioned endotracheal tube, tip now projecting approximately 4 cm above the kelin in good position. Other findings are unchanged Impression: Improved and now satisfactory endotracheal tube position.
[2018-10-11] MEDS: Dyna-Hex 2% Top Sol 2oz TOPIC SCH (19:40)
--- NOTE | 2018-10-11 19:52 | NUR ---
HAND-OFF: Report given to KARI Figueroa. Patient with VSS and not in any acute distress.
--- NOTE | 2018-10-11 20:00 | NUR ---
NURSE NOTES: Received pt in bed with eyes closed, arousable to verbal and tactile stimuli. Orally intubated on AC 20, Vt 500. P 5 fio2 40%. OGT connected to low intermittent suction at this time with no drainage noted. Right Femoral TLC running Levophed at 18 mcg/min, vasopressin 0.04 mg, NS @ 100 cc/hr. Quiroz cath draining by gravity. Pt denies any pain or discomfort at this time. Bed in lowest position, side rails upx3. No signs of distress noted. Will continue to monitor
--- NOTE | 2018-10-11 21:59 | NUR ---
NURSE NOTES: Blood transfusion started at this time. Pt continues sleeping. No signs of distress noted.
--- NOTE | 2018-10-11 23:00 | NUR ---
NURSE NOTES: Patient continues With blood transfusion at this time. No signs of distress noted. Patient denies any pain or discomfort. Will continue to monitor
[2018-10-12] VITALS (64 sets, daily range): BP systolic 92–145; BP diastolic 44–88
--- NOTE | 2018-10-12 01:00 | NUR ---
NURSE NOTES: 2nd unit of PRBC started at this time. Levophed now @ 6 mcg/min. Patient awake and watching TV. Denies any Anxiety or discomfort. Will continue to monitor
--- NOTE | 2018-10-12 04:02 | NUR ---
NURSE NOTES: Called MD Delarosa and notified him about HR 151. Order given to Stop suction of OGT and Call cardio
--- NOTE | 2018-10-12 04:08 | NUR ---
NURSE NOTES: Called and Left message for MD Montanez in regards to HR 151. Awaiting call back
--- NOTE | 2018-10-12 04:10 | NUR ---
NURSE NOTES: MD Montanez Called back with order to give NS 300cc Bolus at this time. Orders read back and confirmed at this time
--- NOTE | 2018-10-12 04:30 | NUR ---
NURSE NOTES: Levophed off at this time. Pt awake and alert. HR 154. Denies any Pain or discomfort. OGT remains clamped at this time. Will continue to monitor
[2018-10-12] MEDS: NovoLOG Insulin Flexpen SUBQ SCH ×4 (05:53→20:18)
[2018-10-12] MEDS: Piperacillin/Tazobactam 3.375 GM in D5W 110 ML IVPB SCH ×2 (05:53→17:22)
--- NOTE | 2018-10-12 06:10 | NUR ---
NURSE NOTES: BS 237 at this time. Coverage given as per sliding scale. Pt sleeping at this time Hr 147 at this time. Noted to be making more urine. Vasopressin @ 0.04mg, NS @ 100cc/hr. Will continue to monitor
[2018-10-12 06:30] LABS: HEMATOCRIT 31.6 % (37.0-47.0); HEMOGLOBIN 10.3 G/DL (12.0-16.0); MEAN CORPUSCULAR VOLUME 95 FL (80-99); PLATELET COUNT 60 K/UL (150-450); RED BLOOD COUNT 3.32 M/UL (4.20-5.40); RED CELL DISTRIBUTION WIDTH 15.8 % (11.6-14.8); WHITE BLOOD COUNT 13.2 K/UL (4.8-10.8)
[2018-10-12 06:48] LABS: PHOSPHORUS 4.7 MG/DL (2.5-4.9)
[2018-10-12 06:52] LABS: INR 1.6 (0.9-1.1)
--- NOTE | 2018-10-12 07:21 | NUR ---
HAND-OFF: Report given to Christ PIERCE. Pt Aox3, denies pain or discomfort.
--- NOTE | 2018-10-12 07:22 | NUR ---
NURSE NOTES: Report received from KARI Figueroa. Pt is awake, alert, and oriented. Primarily [place] speaking but able to understand simple Italian. Sinus tachy on chiseler head with HR 140's. ETT 7.0/21cm at lip line. AC 20, TV 400, FiO2 40%, P 5. O2 sat 99%. No respiratory distress noted. OGT in place and clamped. Red eyes noted. Bloody secretion from mouth during oral care. Abdomen distended and large. Quiroz in place draining to gravity. Ecchymosis noted throughout the body. Right femoral TLC patent and asymptomatic. Pt is on Vasopressin at 0.04 units/min and NS at 100cc/hr. Bed in lowest position. Side rails up x3. Call light within reach. Will resume plan of care.
[2018-10-12 07:24] LABS: ALANINE AMINOTRANSFERASE 3270 U/L (12-78); ALBUMIN 1.6 G/DL (3.4-5.0); ALBUMIN/GLOBULIN RATIO 0.5 (1.0-2.7); ALKALINE PHOSPHATASE 617 U/L (46-116); ANION GAP 15 mmol/L (5-15); ASPARTATE AMINO TRANSFERASE 2167 U/L (15-37); BILIRUBIN,TOTAL 2.6 MG/DL (0.2-1.0); BLOOD UREA NITROGEN 41 mg/dL (7-18); CALCIUM 6.9 MG/DL (8.5-10.1); CARBON DIOXIDE 15 MMOL/L (21-32); CHLORIDE 107 MMOL/L (98-107); CREATININE 2.9 MG/DL (0.55-1.30); POTASSIUM 3.7 MMOL/L (3.5-5.1); SODIUM 137 MMOL/L (136-145)
[2018-10-12 07:33] LABS: BILIRUBIN,DIRECT 1.8 MG/DL (0.0-0.3)
--- NOTE | 2018-10-12 08:04 | NUR ---
NURSE NOTES: Dr Cormier here to see the patient. Updated him with pt's current condition including bloody secretion from OGT via suction last night. Order to hold Heparin and Aspirin received, noted, and carried out.
[2018-10-12] MEDS: VASOPRESSIN IV SCH (08:06)
[2018-10-12] MEDS: NS IV SCH (08:06)
[2018-10-12] MEDS: Pantoprazole Inj IVP SCH ×2 (08:06→20:13)
--- NOTE | 2018-10-12 08:30 | NUR ---
NURSE NOTES: Notified Dr Montanez regarding elevated Troponin 1.239 and elevated HR 140's. Awaiting call back for new orders.
[2018-10-12] MEDS ORDERED: Heparin 5000 units/ml inj SUBQ SCH (09:00)
--- NOTE | 2018-10-12 09:51 | NUR ---
NURSE NOTES: visited patient. Dr Cueto here to see the patient. Updated him with pt's current condition. No new orders.
[2018-10-12] MEDS ORDERED: Vancomycin 750mg/D5W 275ml IVPB SCH ×2 (10:00)
--- NOTE | 2018-10-12 10:04 | General Progress Note ---
Assessment/Plan Problem List: (1) CAD (coronary artery disease) ICD Codes: I25.10 - Atherosclerotic heart disease of [place] coronary artery without angina pectoris SNOMED: 18437352 (2) [place] (3) Thrombocytopenia ICD Codes: D69.6 - Thrombocytopenia, unspecified SNOMED: 713321375 (4) Respiratory failure ICD Codes: J96.90 - Respiratory failure, unspecified, unspecified whether with hypoxia or hypercapnia SNOMED: 924864410 (5) Dysphagia ICD Codes: R13.10 - Dysphagia, unspecified SNOMED: 12697099, 542576388 (6) Elevated CEA ICD Codes: R97.0 - Elevated carcinoembryonic antigen [CEA] SNOMED: 258167991 (7) Shock liver ICD Codes: K72.00 - Acute and subacute hepatic failure without coma SNOMED: 128681450 (8) Respiratory disorder with ventilator dependence ICD Codes: J98.9 - Respiratory disorder, unspecified; Z99.11 - Dependence on respirator [ventilator] status SNOMED: 06186479, 450688902 (9) Liver cirrhosis ICD Codes: K74.60 - Unspecified cirrhosis of liver SNOMED: 18056999 (10) Normocytic anemia ICD Codes: D64.9 - Anemia, unspecified SNOMED: 156437924 Assessment/Plan keep npo for today consider NGTF tomorrow KUB ppi BID monitor H&H fu LFTS work up for elevated CEA when more stable Subjective ROS Limited/Unobtainable: No Allergies: Coded Allergies: No Known Allergies (Unverified , 05/06/18) Objective Last 24 Hour Vital Signs Date Time Temp Pulse Resp B/P (MAP) Pulse Ox O2 Delivery O2 Flow Rate FiO2 10/12/18 09:36 139 28 40 10/12/18 09:30 144 23 109/68 (82) 99 10/12/18 09:15 141 22 108/76 (87) 99 10/12/18 09:00 144 24 99/72 (81) 98 10/12/18 08:30 143 22 106/69 (81) 98 10/12/18 08:00 Mechanical Ventilator 10/12/18 08:00 40 10/12/18 08:00 146 24 102/76 (85) 98 10/12/18 07:58 145 10/12/18 07:45 147 28 118/77 (91) 98 10/12/18 07:35 145 24 40 10/12/18 07:30 98.2 147 23 110/70 (83) 98 10/12/18 07:00 148 27 100/80 (87) 99 10/12/18 06:30 149 25 106/71 (83) 98 10/12/18 06:00 150 25 100/63 (75) 97 10/12/18 05:45 148 24 102/63 (76) 97 10/12/18 05:30 151 26 95/65 (75) 96 10/12/18 05:15 151 27 100/59 (73) 96 10/12/18 05:08 152 27 40 10/12/18 05:00 152 28 105/67 (80) 97 10/12/18 04:45 152 27 98/65 (76) 95 10/12/18 04:30 153 27 120/70 (87) 96 10/12/18 04:15 150 27 130/86 (101) 97 10/12/18 04:00 Mechanical Ventilator 10/12/18 04:00 151 10/12/18 04:00 99.3 151 29 118/84 (95) 97 10/12/18 04:00 40 10/12/18 03:45 147 26 125/83 (97) 98 10/12/18 03:30 145 24 125/75 (92) 98 10/12/18 03:18 146 25 40 10/12/18 03:15 143 26 125/79 (94) 98 10/12/18 03:00 146 24 119/73 (88) 97 10/12/18 02:45 148 27 128/77 (94) 98 10/12/18 02:30 147 28 124/72 (89) 97 10/12/18 02:15 146 24 110/67 (81) 97 10/12/18 02:00 145 25 110/67 (81) 97 10/12/18 01:45 145 25 124/76 (92) 97 10/12/18 01:30 147 28 124/77 (93) 97 10/12/18 01:19 145 27 40 10/12/18 01:00 144 28 119/75 (90) 97 10/12/18 01:00 125/74 10/12/18 00:45 99.4 146 27 124/72 (89) 97 10/12/18 00:30 147 26 127/79 (95) 96 10/12/18 00:15 145 25 132/83 (99) 97 10/12/18 00:08 40 10/12/18 00:00 140 10/12/18 00:00 135 24 116/69 (85) 100 10/12/18 00:00 Mechanical Ventilator 10/12/18 00:00 40 10/11/18 23:45 134 24 112/72 (85) 100 10/11/18 23:30 134 24 106/67 (80) 100 10/11/18 23:15 135 24 104/66 (79) 100 10/11/18 23:00 136 24 100/61 (74) 100 10/11/18 22:45 99.3 135 24 121/72 (88) 100 10/11/18 22:39 130 24 60 10/11/18 22:30 135 24 126/69 (88) 100 10/11/18 22:15 135 24 119/67 (84) 100 10/11/18 22:00 135 24 121/69 (86) 100 10/11/18 21:45 89 24 109/58 (75) 100 10/11/18 21:30 88 24 108/53 (71) 100 10/11/18 21:18 93 24 60 10/11/18 21:15 91 24 105/57 (73) 100 10/11/18 21:00 92 24 105/55 (72) 100 10/11/18 20:45 90 24 106/56 (73) 100 10/11/18 20:30 90 24 103/54 (70) 100 10/11/18 20:15 92 24 103/55 (71) 100 10/11/18 20:13 99.3 10/11/18 20:00 96 10/11/18 20:00 90 24 97/55 (69) 100 10/11/18 20:00 60 10/11/18 20:00 Mechanical Ventilator 10/11/18 19:45 96 23 101/52 (68) 100 10/11/18 19:30 99.7 96 23 86/47 (60) 100 10/11/18 19:15 105 25 60 10/11/18 18:30 106 25 126/63 (84) 97 10/11/18 18:00 147 26 121/66 (84) 96 10/11/18 17:56 71/46 10/11/18 17:30 106 26 77/44 (55) 97 10/11/18 17:00 109 27 117/57 (77) 97 10/11/18 16:46 93 20 40 10/11/18 16:30 116 29 122/57 (78) 95 10/11/18 16:00 99.1 116 27 127/85 (99) 97 10/11/18 16:00 40 10/11/18 16:00 116 10/11/18 16:00 Mechanical Ventilator 10/11/18 15:30 110 26 128/54 (78) 97 10/11/18 15:00 111 26 111/61 (78) 100 10/11/18 14:52 94 20 40 10/11/18 14:30 113 26 128/63 (84) 100 10/11/18 14:00 111 27 132/57 (82) 100 10/11/18 13:30 110 24 114/52 (72) 100 10/11/18 13:00 107 24 105/58 (74) 100 10/11/18 12:50 97 24 60 10/11/18 12:30 108 24 114/58 (76) 100 10/11/18 12:00 108 10/11/18 12:00 99.0 93 24 100/48 (65) 100 10/11/18 12:00 Mechanical Ventilator 10/11/18 12:00 40 10/11/18 11:30 93 24 94/51 (65) 100 10/11/18 11:15 96 24 60 10/11/18 11:00 95 24 124/59 (80) 100 10/11/18 10:30 91 24 88/46 (60) 100 Intake and Output 10/11/18 10/12/18 19:00 07:00 Intake Total 1565.02 ml 1367.09 ml Output Total 225 ml 440 ml Balance 1340.02 ml 927.09 ml Intake IV Total 1565.02 ml 867.09 ml Blood Product 500 ml Output Urine Total 225 ml 440 ml # Bowel Movements 1 Laboratory Tests 10/11/18 19:15: Lactic Acid Level 2.70H 10/11/18 22:55: Random Vancomycin Level 22.1 10/12/18 05:00: Lactic Acid Level 2.70H, White Blood Count 13.2H, Red Blood Count 3.32L, Hemoglobin 10.3#L, Hematocrit 31.6#L, Mean Corpuscular Volume 95, Mean Corpuscular Hemoglobin 31.0, Mean Corpuscular Hemoglobin Concent 32.5, Red Cell Distribution Width 15.8H, Platelet Count 60L, Mean Platelet Volume 6.4L, Neutrophils (%) (Auto) , Lymphocytes (%) (Auto) , Monocytes (%) (Auto) , Eosinophils (%) (Auto) , Basophils (%) (Auto) , Neutrophils % (Manual) [Pending] , Lymphocytes % (Manual) [Pending], Platelet Estimate [Pending], Platelet Morphology [Pending], Prothrombin Time 16.1H, Prothromb Time International Ratio 1.6H, Activated Partial Thromboplast Time 35H, Sodium Level 137, Potassium Level 3.7, Chloride Level 107, Carbon Dioxide Level 15L, Anion Gap 15 , Blood Urea Nitrogen 41H, Creatinine 2.9H, Estimat Glomerular Filtration Rate 16.7, Glucose Level 244H, Uric Acid 7.8H, Calcium Level 6.9L, Phosphorus Level 4.7, Magnesium Level 1.5L, Total Bilirubin 2.6H, Direct Bilirubin 1.8H, Aspartate Amino Transf (AST/SGOT) 2167H, Alanine Aminotransferase (ALT/SGPT) 3270H, Alkaline Phosphatase 617H, Ammonia 72H, Troponin I 1.239H, C-Reactive Protein, Quantitative 20.8H, Pro-B-Type Natriuretic Peptide 2331H, Total Protein 4.7L, Albumin 1.6L, Globulin 3.1, Albumin/Globulin Ratio 0.5L, Vancomycin Level Trough 19.5H Height (Feet): 5 Height (Inches): 1.00 Weight (Pounds): 250 General Appearance: lethargic EENT: normal ENT inspection Neck: supple Cardiovascular: normal rate Respiratory/Chest: decreased breath sounds Abdomen: normal bowel sounds, non tender, soft Extremities: non-tender Samuel Reynolds MD Oct 12, 2018 10:04
--- NOTE | 2018-10-12 11:22 | NUR ---
Social Work This SW met with patient currently in the ICU who is intubated/sedated. This SW spoke with spouse, Bryan ([phone]) who explained he has been patients caregiver at home (assisted with dressing, some bathing, while patient managed independently with toileting), along with cousin, Lisa Knight ([phone]) as needed. Patient was ambulatory (short distances only) with walker, patient has flight of steps (20 steps) to get into their apartment, using [employer] or [employer] for transportation. Spouse expressed concern patient has not been able to ambulate to pain in knees Patient is typically alert/oriented x4, with no history of substance or mental health concerns. Patient does not have an Advance Directive, while spouse is assisting with decision making as needed (spouse requests full code, full treatment). Spouse in agreement with SNF placement (does not believe patient will be ambulatory upon discharge). Pending progress at this time.
--- NOTE | 2018-10-12 11:32 | Surgery Progress Note ---
Surgery Progress Note Subjective Symptoms: improved Additional Comments labs improving. still on vent. comfortable. Objective Last 24 Hour Vital Signs Date Time Temp Pulse Resp B/P (MAP) Pulse Ox O2 Delivery O2 Flow Rate FiO2 10/12/18 10:57 142 24 40 10/12/18 10:30 142 22 104/78 (87) 99 10/12/18 10:00 142 33 106/75 (85) 98 10/12/18 09:36 139 28 40 10/12/18 09:30 144 23 109/68 (82) 99 10/12/18 09:15 141 22 108/76 (87) 99 10/12/18 09:00 144 24 99/72 (81) 98 10/12/18 08:30 143 22 106/69 (81) 98 10/12/18 08:00 Mechanical Ventilator 10/12/18 08:00 40 10/12/18 08:00 146 24 102/76 (85) 98 10/12/18 07:58 145 10/12/18 07:45 147 28 118/77 (91) 98 10/12/18 07:35 145 24 40 10/12/18 07:30 98.2 147 23 110/70 (83) 98 10/12/18 07:00 148 27 100/80 (87) 99 10/12/18 06:30 149 25 106/71 (83) 98 10/12/18 06:00 150 25 100/63 (75) 97 10/12/18 05:45 148 24 102/63 (76) 97 10/12/18 05:30 151 26 95/65 (75) 96 10/12/18 05:15 151 27 100/59 (73) 96 10/12/18 05:08 152 27 40 10/12/18 05:00 152 28 105/67 (80) 97 10/12/18 04:45 152 27 98/65 (76) 95 10/12/18 04:30 153 27 120/70 (87) 96 10/12/18 04:15 150 27 130/86 (101) 97 10/12/18 04:00 Mechanical Ventilator 10/12/18 04:00 151 10/12/18 04:00 99.3 151 29 118/84 (95) 97 10/12/18 04:00 40 10/12/18 03:45 147 26 125/83 (97) 98 10/12/18 03:30 145 24 125/75 (92) 98 10/12/18 03:18 146 25 40 10/12/18 03:15 143 26 125/79 (94) 98 10/12/18 03:00 146 24 119/73 (88) 97 10/12/18 02:45 148 27 128/77 (94) 98 10/12/18 02:30 147 28 124/72 (89) 97 10/12/18 02:15 146 24 110/67 (81) 97 10/12/18 02:00 145 25 110/67 (81) 97 10/12/18 01:45 145 25 124/76 (92) 97 10/12/18 01:30 147 28 124/77 (93) 97 10/12/18 01:19 145 27 40 10/12/18 01:00 144 28 119/75 (90) 97 10/12/18 01:00 125/74 10/12/18 00:45 99.4 146 27 124/72 (89) 97 10/12/18 00:30 147 26 127/79 (95) 96 10/12/18 00:15 145 25 132/83 (99) 97 10/12/18 00:08 40 10/12/18 00:00 140 10/12/18 00:00 135 24 116/69 (85) 100 10/12/18 00:00 Mechanical Ventilator 10/12/18 00:00 40 10/11/18 23:45 134 24 112/72 (85) 100 10/11/18 23:30 134 24 106/67 (80) 100 10/11/18 23:15 135 24 104/66 (79) 100 10/11/18 23:00 136 24 100/61 (74) 100 10/11/18 22:45 99.3 135 24 121/72 (88) 100 10/11/18 22:39 130 24 60 10/11/18 22:30 135 24 126/69 (88) 100 10/11/18 22:15 135 24 119/67 (84) 100 10/11/18 22:00 135 24 121/69 (86) 100 10/11/18 21:45 89 24 109/58 (75) 100 10/11/18 21:30 88 24 108/53 (71) 100 10/11/18 21:18 93 24 60 10/11/18 21:15 91 24 105/57 (73) 100 10/11/18 21:00 92 24 105/55 (72) 100 10/11/18 20:45 90 24 106/56 (73) 100 10/11/18 20:30 90 24 103/54 (70) 100 10/11/18 20:15 92 24 103/55 (71) 100 10/11/18 20:13 99.3 10/11/18 20:00 96 10/11/18 20:00 90 24 97/55 (69) 100 10/11/18 20:00 60 10/11/18 20:00 Mechanical Ventilator 10/11/18 19:45 96 23 101/52 (68) 100 10/11/18 19:30 99.7 96 23 86/47 (60) 100 10/11/18 19:15 105 25 60 10/11/18 18:30 106 25 126/63 (84) 97 10/11/18 18:00 147 26 121/66 (84) 96 10/11/18 17:56 71/46 10/11/18 17:30 106 26 77/44 (55) 97 10/11/18 17:00 109 27 117/57 (77) 97 10/11/18 16:46 93 20 40 10/11/18 16:30 116 29 122/57 (78) 95 10/11/18 16:00 99.1 116 27 127/85 (99) 97 10/11/18 16:00 40 10/11/18 16:00 116 10/11/18 16:00 Mechanical Ventilator 10/11/18 15:30 110 26 128/54 (78) 97 10/11/18 15:00 111 26 111/61 (78) 100 10/11/18 14:52 94 20 40 10/11/18 14:30 113 26 128/63 (84) 100 10/11/18 14:00 111 27 132/57 (82) 100 10/11/18 13:30 110 24 114/52 (72) 100 10/11/18 13:00 107 24 105/58 (74) 100 10/11/18 12:50 97 24 60 10/11/18 12:30 108 24 114/58 (76) 100 10/11/18 12:00 108 10/11/18 12:00 99.0 93 24 100/48 (65) 100 10/11/18 12:00 Mechanical Ventilator 10/11/18 12:00 40 I&O Intake and Output 10/11/18 10/12/18 19:00 07:00 Intake Total 1565.02 ml 1367.09 ml Output Total 225 ml 440 ml Balance 1340.02 ml 927.09 ml Intake IV Total 1565.02 ml 867.09 ml Blood Product 500 ml Output Urine Total 225 ml 440 ml # Bowel Movements 1 Drains: other Cardiovascular: RSR Respiratory: clear, decreased breath sounds Abdomen: soft, non-tender, present bowel sounds, non-distended Extremities: no tenderness, no cyanosis Laboratory Tests Test 10/11/18 19:15 10/11/18 22:55 10/12/18 05:00 Lactic Acid Level 2.70 mmol/L (0.4-2.0) H 2.70 mmol/L (0.66-2.22) H Random Vancomycin Level 22.1 ug/mL White Blood Count 13.2 K/UL (4.8-10.8) H Red Blood Count 3.32 M/UL (4.20-5.40) L Hemoglobin 10.3 G/DL (12.0-16.0) #L Hematocrit 31.6 % (37.0-47.0) #L Mean Corpuscular Volume 95 FL (80-99) Mean Corpuscular Hemoglobin 31.0 PG (27.0-31.0) Mean Corpuscular Hemoglobin Concent 32.5 G/DL (32.0-36.0) Red Cell Distribution Width 15.8 % (11.6-14.8) H Platelet Count 60 K/UL (150-450) L Mean Platelet Volume 6.4 FL (6.5-10.1) L Neutrophils (%) (Auto) % (45.0-75.0) Lymphocytes (%) (Auto) % (20.0-45.0) Monocytes (%) (Auto) % (1.0-10.0) Eosinophils (%) (Auto) % (0.0-3.0) Basophils (%) (Auto) % (0.0-2.0) Differential Total Cells Counted 100 Neutrophils % (Manual) 84 % (45-75) H Lymphocytes % (Manual) 9 % (20-45) L Monocytes % (Manual) 7 % (1-10) Eosinophils % (Manual) 0 % (0-3) Basophils % (Manual) 0 % (0-2) Band Neutrophils 0 % (0-8) Platelet Estimate Decreased L Platelet Morphology Normal Anisocytosis 1+ Prothrombin Time 16.1 SEC (9.30-11.50) H Prothromb Time International Ratio 1.6 (0.9-1.1) H Activated Partial Thromboplast Time 35 SEC (23-33) H Sodium Level 137 MMOL/L (136-145) Potassium Level 3.7 MMOL/L (3.5-5.1) Chloride Level 107 MMOL/L (98-107) Carbon Dioxide Level 15 MMOL/L (21-32) L Anion Gap 15 mmol/L (5-15) Blood Urea Nitrogen 41 mg/dL (7-18) H Creatinine 2.9 MG/DL (0.55-1.30) H Estimat Glomerular Filtration Rate 16.7 mL/min (>60) Glucose Level 244 MG/DL (74-106) H Uric Acid 7.8 MG/DL (2.6-7.2) H Calcium Level 6.9 MG/DL (8.5-10.1) L Phosphorus Level 4.7 MG/DL (2.5-4.9) Magnesium Level 1.5 MG/DL (1.8-2.4) L Total Bilirubin 2.6 MG/DL (0.2-1.0) H Direct Bilirubin 1.8 MG/DL (0.0-0.3) H Aspartate Amino Transf (AST/SGOT) 2167 U/L (15-37) H Alanine Aminotransferase (ALT/SGPT) 3270 U/L (12-78) H Alkaline Phosphatase 617 U/L (46-116) H Ammonia 72 umol/L (11-32) H Troponin I 1.239 ng/mL (0.000-0.056) C-Reactive Protein, Quantitative 20.8 mg/dL (0.00-0.90) H Pro-B-Type Natriuretic Peptide 2331 pg/mL (0-125) H Total Protein 4.7 G/DL (6.4-8.2) L Albumin 1.6 G/DL (3.4-5.0) L Globulin 3.1 g/dL Albumin/Globulin Ratio 0.5 (1.0-2.7) L Vancomycin Level Trough 19.5 ug/mL (5.0-12.0) H Plan Problems: (1) Multiple injuries due to trauma (2) Sepsis Assessment & Plan: Labs noted lactic acidosis improved with resuscitation CT findings: Limited assessment of the GI tract, due to lack of enteric contrast administration. Exam is also limited due to patient motion artifact and lack of IV contrast administration Evidence of hepatic cirrhosis Small amount of ascites, likely related to the above Surgically absent gallbladder Bilateral basilar pulmonary parenchymal atelectatic changes and possible patchy consolidation Minimal edema of the bilateral flank subcutaneous fat Other findings as noted, including degenerative spondylosis, right hepatic lobe capsular calcification, Quiroz catheter has made a great improvement. denies abd pain. labs improved. cont with ICU care -npo -iv fluids -iv abx -trend labs will follow with recs thank you (3) Liver cirrhosis Josh Samuel Oct 12, 2018 11:32
--- NOTE | 2018-10-12 12:18 | NUR ---
NURSE NOTES: Abdominal X-ray done at bedside. Turned and repositioned pt. Will continue to monitor.
--- NOTE | 2018-10-12 12:26 | Nephrology Progress Note ---
Assessment/Plan Problem List: (1) JONNATHAN (acute kidney injury) (2) Shock liver (3) Septic shock (4) Respiratory disorder with ventilator dependence Assessment - Acute Oliguric Renal Failure Cr higher - Respiratory disorder with ventilator dependence - Septic shock , Leukocytosis - Pneumonia - Liver cirrhosis - Obese - Anemia . Plan ? transfuse 2 units to improve renal perfusion Hemodynamic support Pulmunary support Monitor renal parameters avoid nephrotoxics as best as possible per orders Subjective ROS Limited/Unobtainable: Yes Objective Objective Last 24 Hour Vital Signs Date Time Temp Pulse Resp B/P (MAP) Pulse Ox O2 Delivery O2 Flow Rate FiO2 10/12/18 12:00 Mechanical Ventilator 10/12/18 12:00 153 29 145/88 (107) 96 10/12/18 12:00 40 10/12/18 11:30 142 22 108/68 (81) 98 10/12/18 11:00 143 22 113/77 (89) 99 10/12/18 10:57 142 24 40 10/12/18 10:30 142 22 104/78 (87) 99 10/12/18 10:00 142 33 106/75 (85) 98 10/12/18 09:36 139 28 40 10/12/18 09:30 144 23 109/68 (82) 99 10/12/18 09:15 141 22 108/76 (87) 99 10/12/18 09:00 144 24 99/72 (81) 98 10/12/18 08:30 143 22 106/69 (81) 98 10/12/18 08:00 Mechanical Ventilator 10/12/18 08:00 40 10/12/18 08:00 146 24 102/76 (85) 98 10/12/18 07:58 145 10/12/18 07:45 147 28 118/77 (91) 98 10/12/18 07:35 145 24 40 10/12/18 07:30 98.2 147 23 110/70 (83) 98 10/12/18 07:00 148 27 100/80 (87) 99 10/12/18 06:30 149 25 106/71 (83) 98 10/12/18 06:00 150 25 100/63 (75) 97 10/12/18 05:45 148 24 102/63 (76) 97 10/12/18 05:30 151 26 95/65 (75) 96 10/12/18 05:15 151 27 100/59 (73) 96 10/12/18 05:08 152 27 40 10/12/18 05:00 152 28 105/67 (80) 97 10/12/18 04:45 152 27 98/65 (76) 95 10/12/18 04:30 153 27 120/70 (87) 96 10/12/18 04:15 150 27 130/86 (101) 97 10/12/18 04:00 Mechanical Ventilator 10/12/18 04:00 151 10/12/18 04:00 99.3 151 29 118/84 (95) 97 10/12/18 04:00 40 10/12/18 03:45 147 26 125/83 (97) 98 10/12/18 03:30 145 24 125/75 (92) 98 10/12/18 03:18 146 25 40 10/12/18 03:15 143 26 125/79 (94) 98 10/12/18 03:00 146 24 119/73 (88) 97 10/12/18 02:45 148 27 128/77 (94) 98 10/12/18 02:30 147 28 124/72 (89) 97 10/12/18 02:15 146 24 110/67 (81) 97 10/12/18 02:00 145 25 110/67 (81) 97 10/12/18 01:45 145 25 124/76 (92) 97 10/12/18 01:30 147 28 124/77 (93) 97 10/12/18 01:19 145 27 40 10/12/18 01:00 144 28 119/75 (90) 97 10/12/18 01:00 125/74 10/12/18 00:45 99.4 146 27 124/72 (89) 97 10/12/18 00:30 147 26 127/79 (95) 96 10/12/18 00:15 145 25 132/83 (99) 97 10/12/18 00:08 40 10/12/18 00:00 140 10/12/18 00:00 135 24 116/69 (85) 100 10/12/18 00:00 Mechanical Ventilator 10/12/18 00:00 40 10/11/18 23:45 134 24 112/72 (85) 100 10/11/18 23:30 134 24 106/67 (80) 100 10/11/18 23:15 135 24 104/66 (79) 100 10/11/18 23:00 136 24 100/61 (74) 100 10/11/18 22:45 99.3 135 24 121/72 (88) 100 10/11/18 22:39 130 24 60 10/11/18 22:30 135 24 126/69 (88) 100 10/11/18 22:15 135 24 119/67 (84) 100 10/11/18 22:00 135 24 121/69 (86) 100 10/11/18 21:45 89 24 109/58 (75) 100 10/11/18 21:30 88 24 108/53 (71) 100 10/11/18 21:18 93 24 60 10/11/18 21:15 91 24 105/57 (73) 100 10/11/18 21:00 92 24 105/55 (72) 100 10/11/18 20:45 90 24 106/56 (73) 100 10/11/18 20:30 90 24 103/54 (70) 100 10/11/18 20:15 92 24 103/55 (71) 100 10/11/18 20:13 99.3 10/11/18 20:00 96 10/11/18 20:00 90 24 97/55 (69) 100 10/11/18 20:00 60 10/11/18 20:00 Mechanical Ventilator 10/11/18 19:45 96 23 101/52 (68) 100 10/11/18 19:30 99.7 96 23 86/47 (60) 100 10/11/18 19:15 105 25 60 10/11/18 18:30 106 25 126/63 (84) 97 10/11/18 18:00 147 26 121/66 (84) 96 10/11/18 17:56 71/46 10/11/18 17:30 106 26 77/44 (55) 97 10/11/18 17:00 109 27 117/57 (77) 97 10/11/18 16:46 93 20 40 10/11/18 16:30 116 29 122/57 (78) 95 10/11/18 16:00 99.1 116 27 127/85 (99) 97 10/11/18 16:00 40 10/11/18 16:00 116 10/11/18 16:00 Mechanical Ventilator 10/11/18 15:30 110 26 128/54 (78) 97 10/11/18 15:00 111 26 111/61 (78) 100 10/11/18 14:52 94 20 40 10/11/18 14:30 113 26 128/63 (84) 100 10/11/18 14:00 111 27 132/57 (82) 100 10/11/18 13:30 110 24 114/52 (72) 100 10/11/18 13:00 107 24 105/58 (74) 100 10/11/18 12:50 97 24 60 10/11/18 12:30 108 24 114/58 (76) 100 Intake and Output 10/11/18 10/12/18 19:00 07:00 Intake Total 1565.02 ml 1367.09 ml Output Total 225 ml 440 ml Balance 1340.02 ml 927.09 ml Intake IV Total 1565.02 ml 867.09 ml Blood Product 500 ml Output Urine Total 225 ml 440 ml # Bowel Movements 1 Laboratory Tests 10/11/18 19:15: Lactic Acid Level 2.70H 10/11/18 22:55: Random Vancomycin Level 22.1 10/12/18 05:00: Lactic Acid Level 2.70H, White Blood Count 13.2H, Red Blood Count 3.32L, Hemoglobin 10.3#L, Hematocrit 31.6#L, Mean Corpuscular Volume 95, Mean Corpuscular Hemoglobin 31.0, Mean Corpuscular Hemoglobin Concent 32.5, Red Cell Distribution Width 15.8H, Platelet Count 60L, Mean Platelet Volume 6.4L, Neutrophils (%) (Auto) , Lymphocytes (%) (Auto) , Monocytes (%) (Auto) , Eosinophils (%) (Auto) , Basophils (%) (Auto) , Differential Total Cells Counted 100, Neutrophils % (Manual) 84H, Lymphocytes % (Manual) 9L, Monocytes % (Manual) 7, Eosinophils % (Manual) 0, Basophils % (Manual) 0, Band Neutrophils 0 , Platelet Estimate DecreasedL, Platelet Morphology Normal, Anisocytosis 1+, Prothrombin Time 16.1H, Prothromb Time International Ratio 1.6H, Activated Partial Thromboplast Time 35H, Sodium Level 137, Potassium Level 3.7, Chloride Level 107, Carbon Dioxide Level 15L, Anion Gap 15, Blood Urea Nitrogen 41H, Creatinine 2.9H, Estimat Glomerular Filtration Rate 16.7, Glucose Level 244H, Uric Acid 7.8H, Calcium Level 6.9L, Phosphorus Level 4.7, Magnesium Level 1.5L, Total Bilirubin 2.6H, Direct Bilirubin 1.8H, Aspartate Amino Transf (AST/SGOT) 2167H, Alanine Aminotransferase (ALT/SGPT) 3270H, Alkaline Phosphatase 617H, Ammonia 72H, Troponin I 1.239H, C-Reactive Protein, Quantitative 20.8H, Pro-B- Type Natriuretic Peptide 2331H, Total Protein 4.7L, Albumin 1.6L, Globulin 3.1, Albumin/Globulin Ratio 0.5L, Vancomycin Level Trough 19.5H Height (Feet): 5 Height (Inches): 1.00 Weight (Pounds): 250 General Appearance: no apparent distress EENT: other - vented - OG tube + Cardiovascular: tachycardia Respiratory/Chest: decreased breath sounds Abdomen: distended Alex Cueto MD Oct 12, 2018 12:26
--- NOTE | 2018-10-12 13:00 | Infectious Diseases Prog Note ---
Assessment/Plan Assessment/Plan A: 1. Septic Shock improving.culture are negative so far 2. May have pneumonia, especially aspiration pneumonia. 3. Multiorgan failure including acute renal failure and hypercapnic respiratory failure. 4. Diabetes mellitus. 5. Obesity. 6. Lactic acidosis. 7. Anemia.s/p tranfusion 8. Cirrhosis. 9. Enteritis, ileus RECOMMENDATION: continue with vancomycin and Zosyn Subjective ROS Limited/Unobtainable: Yes Musculoskeletal: Reports: no symptoms Allergies: Coded Allergies: No Known Allergies (Unverified , 05/06/18) Objective Vital Signs Last 24 Hour Vital Signs Date Time Temp Pulse Resp B/P (MAP) Pulse Ox O2 Delivery O2 Flow Rate FiO2 10/12/18 12:00 Mechanical Ventilator 10/12/18 12:00 153 29 145/88 (107) 96 10/12/18 12:00 40 10/12/18 11:30 142 22 108/68 (81) 98 10/12/18 11:00 143 22 113/77 (89) 99 10/12/18 10:57 142 24 40 10/12/18 10:30 142 22 104/78 (87) 99 10/12/18 10:00 142 33 106/75 (85) 98 10/12/18 09:36 139 28 40 10/12/18 09:30 144 23 109/68 (82) 99 10/12/18 09:15 141 22 108/76 (87) 99 10/12/18 09:00 144 24 99/72 (81) 98 10/12/18 08:30 143 22 106/69 (81) 98 10/12/18 08:00 Mechanical Ventilator 10/12/18 08:00 40 10/12/18 08:00 146 24 102/76 (85) 98 10/12/18 07:58 145 10/12/18 07:45 147 28 118/77 (91) 98 10/12/18 07:35 145 24 40 10/12/18 07:30 98.2 147 23 110/70 (83) 98 10/12/18 07:00 148 27 100/80 (87) 99 10/12/18 06:30 149 25 106/71 (83) 98 10/12/18 06:00 150 25 100/63 (75) 97 10/12/18 05:45 148 24 102/63 (76) 97 10/12/18 05:30 151 26 95/65 (75) 96 10/12/18 05:15 151 27 100/59 (73) 96 10/12/18 05:08 152 27 40 10/12/18 05:00 152 28 105/67 (80) 97 10/12/18 04:45 152 27 98/65 (76) 95 10/12/18 04:30 153 27 120/70 (87) 96 10/12/18 04:15 150 27 130/86 (101) 97 10/12/18 04:00 Mechanical Ventilator 10/12/18 04:00 151 10/12/18 04:00 99.3 151 29 118/84 (95) 97 10/12/18 04:00 40 10/12/18 03:45 147 26 125/83 (97) 98 10/12/18 03:30 145 24 125/75 (92) 98 10/12/18 03:18 146 25 40 10/12/18 03:15 143 26 125/79 (94) 98 10/12/18 03:00 146 24 119/73 (88) 97 10/12/18 02:45 148 27 128/77 (94) 98 10/12/18 02:30 147 28 124/72 (89) 97 10/12/18 02:15 146 24 110/67 (81) 97 10/12/18 02:00 145 25 110/67 (81) 97 10/12/18 01:45 145 25 124/76 (92) 97 10/12/18 01:30 147 28 124/77 (93) 97 10/12/18 01:19 145 27 40 10/12/18 01:00 144 28 119/75 (90) 97 10/12/18 01:00 125/74 10/12/18 00:45 99.4 146 27 124/72 (89) 97 10/12/18 00:30 147 26 127/79 (95) 96 10/12/18 00:15 145 25 132/83 (99) 97 10/12/18 00:08 40 10/12/18 00:00 140 10/12/18 00:00 135 24 116/69 (85) 100 10/12/18 00:00 Mechanical Ventilator 10/12/18 00:00 40 10/11/18 23:45 134 24 112/72 (85) 100 10/11/18 23:30 134 24 106/67 (80) 100 10/11/18 23:15 135 24 104/66 (79) 100 10/11/18 23:00 136 24 100/61 (74) 100 10/11/18 22:45 99.3 135 24 121/72 (88) 100 10/11/18 22:39 130 24 60 10/11/18 22:30 135 24 126/69 (88) 100 10/11/18 22:15 135 24 119/67 (84) 100 10/11/18 22:00 135 24 121/69 (86) 100 10/11/18 21:45 89 24 109/58 (75) 100 10/11/18 21:30 88 24 108/53 (71) 100 10/11/18 21:18 93 24 60 10/11/18 21:15 91 24 105/57 (73) 100 10/11/18 21:00 92 24 105/55 (72) 100 10/11/18 20:45 90 24 106/56 (73) 100 10/11/18 20:30 90 24 103/54 (70) 100 10/11/18 20:15 92 24 103/55 (71) 100 10/11/18 20:13 99.3 10/11/18 20:00 96 10/11/18 20:00 90 24 97/55 (69) 100 10/11/18 20:00 60 10/11/18 20:00 Mechanical Ventilator 10/11/18 19:45 96 23 101/52 (68) 100 10/11/18 19:30 99.7 96 23 86/47 (60) 100 10/11/18 19:15 105 25 60 10/11/18 18:30 106 25 126/63 (84) 97 10/11/18 18:00 147 26 121/66 (84) 96 10/11/18 17:56 71/46 10/11/18 17:30 106 26 77/44 (55) 97 10/11/18 17:00 109 27 117/57 (77) 97 10/11/18 16:46 93 20 40 10/11/18 16:30 116 29 122/57 (78) 95 10/11/18 16:00 99.1 116 27 127/85 (99) 97 10/11/18 16:00 40 10/11/18 16:00 116 10/11/18 16:00 Mechanical Ventilator 10/11/18 15:30 110 26 128/54 (78) 97 10/11/18 15:00 111 26 111/61 (78) 100 10/11/18 14:52 94 20 40 10/11/18 14:30 113 26 128/63 (84) 100 10/11/18 14:00 111 27 132/57 (82) 100 10/11/18 13:30 110 24 114/52 (72) 100 10/11/18 13:00 107 24 105/58 (74) 100 Height (Feet): 5 Height (Inches): 1.00 Weight (Pounds): 250 HEENT: other - bilateral suconjunctival hehorrhage Respiratory/Chest: lungs clear, other - on ventilator Cardiovascular: tachycardia Abdomen: soft, non tender, other - orogastric tube Extremities: other - generalized edema Neurologic/Psychiatric: alert, responsive Microbiology Date/Time Source Procedure Growth Status 10/11/18 03:45 Sputum Induced Gram Stain - Final Resulted 10/11/18 03:45 Sputum Induced Sputum Culture Pending Resulted 10/10/18 03:10 Stool Clostridium difficile Toxin Assay - Final Complete 10/10/18 00:00 Stool Stool Culture - Preliminary NORMAL FECAL BAKARI. Resulted 10/09/18 15:50 Urine,Clean Catch Urine Culture - Final NO GROWTH AFTER 48 HOURS Complete Laboratory Tests Test 10/11/18 19:15 10/11/18 22:55 10/12/18 05:00 Lactic Acid Level 2.70 mmol/L (0.4-2.0) H 2.70 mmol/L (0.66-2.22) H Random Vancomycin Level 22.1 ug/mL White Blood Count 13.2 K/UL (4.8-10.8) H Red Blood Count 3.32 M/UL (4.20-5.40) L Hemoglobin 10.3 G/DL (12.0-16.0) #L Hematocrit 31.6 % (37.0-47.0) #L Mean Corpuscular Volume 95 FL (80-99) Mean Corpuscular Hemoglobin 31.0 PG (27.0-31.0) Mean Corpuscular Hemoglobin Concent 32.5 G/DL (32.0-36.0) Red Cell Distribution Width 15.8 % (11.6-14.8) H Platelet Count 60 K/UL (150-450) L Mean Platelet Volume 6.4 FL (6.5-10.1) L Neutrophils (%) (Auto) % (45.0-75.0) Lymphocytes (%) (Auto) % (20.0-45.0) Monocytes (%) (Auto) % (1.0-10.0) Eosinophils (%) (Auto) % (0.0-3.0) Basophils (%) (Auto) % (0.0-2.0) Differential Total Cells Counted 100 Neutrophils % (Manual) 84 % (45-75) H Lymphocytes % (Manual) 9 % (20-45) L Monocytes % (Manual) 7 % (1-10) Eosinophils % (Manual) 0 % (0-3) Basophils % (Manual) 0 % (0-2) Band Neutrophils 0 % (0-8) Platelet Estimate Decreased L Platelet Morphology Normal Anisocytosis 1+ Prothrombin Time 16.1 SEC (9.30-11.50) H Prothromb Time International Ratio 1.6 (0.9-1.1) H Activated Partial Thromboplast Time 35 SEC (23-33) H Sodium Level 137 MMOL/L (136-145) Potassium Level 3.7 MMOL/L (3.5-5.1) Chloride Level 107 MMOL/L (98-107) Carbon Dioxide Level 15 MMOL/L (21-32) L Anion Gap 15 mmol/L (5-15) Blood Urea Nitrogen 41 mg/dL (7-18) H Creatinine 2.9 MG/DL (0.55-1.30) H Estimat Glomerular Filtration Rate 16.7 mL/min (>60) Glucose Level 244 MG/DL (74-106) H Uric Acid 7.8 MG/DL (2.6-7.2) H Calcium Level 6.9 MG/DL (8.5-10.1) L Phosphorus Level 4.7 MG/DL (2.5-4.9) Magnesium Level 1.5 MG/DL (1.8-2.4) L Total Bilirubin 2.6 MG/DL (0.2-1.0) H Direct Bilirubin 1.8 MG/DL (0.0-0.3) H Aspartate Amino Transf (AST/SGOT) 2167 U/L (15-37) H Alanine Aminotransferase (ALT/SGPT) 3270 U/L (12-78) H Alkaline Phosphatase 617 U/L (46-116) H Ammonia 72 umol/L (11-32) H Troponin I 1.239 ng/mL (0.000-0.056) C-Reactive Protein, Quantitative 20.8 mg/dL (0.00-0.90) H Pro-B-Type Natriuretic Peptide 2331 pg/mL (0-125) H Total Protein 4.7 G/DL (6.4-8.2) L Albumin 1.6 G/DL (3.4-5.0) L Globulin 3.1 g/dL Albumin/Globulin Ratio 0.5 (1.0-2.7) L Vancomycin Level Trough 19.5 ug/mL (5.0-12.0) H Current Medications Medications (Trade) Dose Ordered Sig/Patricia Route PRN Reason Start Time Stop Time Status Last Admin Dose Admin Acetaminophen (Tylenol) 650 mg Q4H PRN ORAL Mild Pain/Temp > 100.5 10/09/18 14:15 11/08/18 14:14 10/11/18 19:43 Albuterol/ Ipratropium (Albuterol/ Ipratropium) 3 ml Q4H PRN HHN Shortness of Breath 10/09/18 14:30 10/14/18 14:29 Chlorhexidine Gluconate (Nguyen-Hex 2%) 1 applic DAILY@2000 TOPIC 10/10/18 20:00 11/09/18 19:59 10/11/18 19:40 Dextrose (Dextrose 50%) 25 ml Q30M PRN IV Hypoglycemia 10/11/18 13:45 11/10/18 13:44 Dextrose (Dextrose 50%) 50 ml Q30M PRN IV Hypoglycemia 10/11/18 13:45 11/10/18 13:44 Diphenhydramine HCl (Benadryl) 25 mg Q6H PRN IVP Itching 10/09/18 14:30 11/08/18 14:29 Insulin Aspart (NovoLOG) BEFORE MEALS AND HS SUBQ 10/11/18 16:30 11/10/18 16:29 10/12/18 11:21 Morphine Sulfate (Morphine Sulfate) 2 mg Q4H PRN IVP Severe Pain (Pain Scale 7-10) 10/09/18 14:15 10/16/18 14:14 10/09/18 14:35 Norepinephrine Bitartrate 16 mg/ Sodium Chloride 500 ml @ 0 mls/hr Q24H IV 10/09/18 21:00 11/08/18 20:59 10/11/18 17:56 Ondansetron HCl (Zofran) 4 mg Q6H PRN IVP Nausea & Vomiting 10/09/18 14:30 11/08/18 14:29 Pantoprazole (Protonix) 40 mg EVERY 12 HOURS IVP 10/10/18 21:00 11/09/18 20:59 10/12/18 08:06 Piperacillin Sod/ Tazobactam Sod 3.375 gm/Dextrose 110 ml @ 27.5 mls/hr Q12H IVPB 10/11/18 18:00 10/18/18 17:59 10/12/18 05:53 Rifaximin (Xifaxan) 550 mg EVERY 12 HOURS ORAL 10/12/18 21:00 10/19/18 20:59 Sodium Chloride 1,000 ml @ 100 mls/hr Q10H IV 10/11/18 13:45 11/10/18 13:44 10/12/18 08:07 Vancomycin HCl (Vanco rx to dose) 1 ea DAILY PRN MISC Per rx protocol 10/09/18 14:30 11/08/18 14:29 Vasopressin 100 units/Sodium Chloride 105 ml @ 2.52 mls/hr Q24H IV 10/10/18 14:00 11/09/18 13:59 10/12/18 08:06 Wesley Akers MD Oct 12, 2018 13:00
--- NOTE | 2018-10-12 13:00 | NUR ---
NURSE NOTES: HR has been 140's-150's after turning and repositioning with abdominal X-ray. at bedside. SBP 110-120. Vasopressin turned off. Will closely monitor BP.
--- NOTE | 2018-10-12 14:14 | Diagnostic Imaging Report ---
Indication: Abdominal pain Technique: Supine view of the abdomen Comparison: 10/10/2018 Findings: Nasogastric tube again demonstrated, tip projected at the level gastric body. Interim resolution of previously demonstrated small bowel distention. Cholecystectomy clip is again noted. Right femoral central venous catheter is again noted. Large right pleural effusion is again noted. Impression: Since 10/10/2018, interim resolution of previously demonstrated small bowel distention. Other stable findings as described
--- NOTE | 2018-10-12 14:22 | NUR ---
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 98.6 HR 153 RR 29 B/P 145/88 AC 20 TV 500 FIO2 405 PEEP 5 WBC 13.2 MG 1.5 AMMONIA 72 TROP 1.239 CREACT-20.8 BNP 2331 LACTID ACID 2.70 BUN 41 CR 2.9 IS: IVF NS @ 100ML/HR ZOSYN IV VASOPRESSIN GTT PROTONIX IV ICU STATUS
--- NOTE | 2018-10-12 14:23 | Pulmonolgy Critical Care Note ---
Critical Care - Asmt/Plan Problems: (1) Respiratory disorder with ventilator dependence (2) Septic shock (3) Pneumonia (4) Liver cirrhosis Assessment/Plan: ASSESSMENT: The patient is a 58-year-old female with a history of obesity, diabetes, hypertension, hyperlipidemia, and sciatica with chronic low back pain , DDD/DJD, presenting after a mechanical fall with altered mental status and confusion with likely sepsis and multisystem organ failure. PROBLEM LIST: 1. VDRF 2. Sepsis 3. Shock, hypovolemic and distributive. 4. Multisystem organ failure. 5. Lactic acidosis. 6. Anion gap metabolic acidosis. 7. JONNATHAN. 7. Abnormal LFTs, likely shock liver. 8. Abnormal troponin, likely demand ischemia. 9. Elevated D-dimer and PASP concerning for an acute PE 10. Obesity. 11. Diabetes. 12. Hypertension. 13. Chronic low back pain and sciatica. 14. Anemia/FOBT + 15. Thrombocytopenia TREATMENT PLAN: 1. Continue ventilatory support, dec TV to 500 and RR to 20. Titrate down FiO2 and PEEP to keep SaO2 > 90% 2. PRN HHN's 3. Off pressors 4. Continue IVF 5. Vanco/Zosyn (D4) per ID 6. Off pressors 7. CXR & ABG ordered 8. NEEDS TO OPTIMIZE SEDATION: start Fent gtt titrate to RASS - 2 + versed 1 mg IV q2 PRN 9. Consider starting TF's 10. DVT prophylaxis: hep held 2/2 thrombocytopenia, ? HIT Ab panel, when able will need a VQ or CT-A 11. SSI 12. F/U eyewear consultant recs 13. Prognosis poor 14. 90 minutes of critical care time was spent. D/R RN, @ bedside and consultants Time Spent (Minutes): 40 Critical Care - Objective Last 24 Hour Vital Signs Date Time Temp Pulse Resp B/P (MAP) Pulse Ox O2 Delivery O2 Flow Rate FiO2 10/12/18 14:00 152 28 102/68 (79) 97 10/12/18 13:45 152 27 104/58 (73) 97 10/12/18 13:30 151 28 115/68 (84) 98 10/12/18 13:15 148 24 118/76 (90) 97 10/12/18 13:12 146 26 40 10/12/18 13:00 148 26 121/79 (93) 98 10/12/18 12:45 150 26 128/81 (97) 97 10/12/18 12:30 98.6 150 26 123/88 (100) 96 10/12/18 12:00 Mechanical Ventilator 10/12/18 12:00 153 29 145/88 (107) 96 10/12/18 12:00 40 10/12/18 11:55 152 10/12/18 11:30 142 22 108/68 (81) 98 10/12/18 11:00 143 22 113/77 (89) 99 10/12/18 10:57 142 24 40 10/12/18 10:30 142 22 104/78 (87) 99 10/12/18 10:00 142 33 106/75 (85) 98 10/12/18 09:36 139 28 40 10/12/18 09:30 144 23 109/68 (82) 99 10/12/18 09:15 141 22 108/76 (87) 99 10/12/18 09:00 144 24 99/72 (81) 98 10/12/18 08:30 143 22 106/69 (81) 98 10/12/18 08:00 Mechanical Ventilator 10/12/18 08:00 40 10/12/18 08:00 146 24 102/76 (85) 98 10/12/18 07:58 145 10/12/18 07:45 147 28 118/77 (91) 98 10/12/18 07:35 145 24 40 10/12/18 07:30 98.2 147 23 110/70 (83) 98 10/12/18 07:00 148 27 100/80 (87) 99 10/12/18 06:30 149 25 106/71 (83) 98 10/12/18 06:00 150 25 100/63 (75) 97 10/12/18 05:45 148 24 102/63 (76) 97 10/12/18 05:30 151 26 95/65 (75) 96 10/12/18 05:15 151 27 100/59 (73) 96 10/12/18 05:08 152 27 40 10/12/18 05:00 152 28 105/67 (80) 97 10/12/18 04:45 152 27 98/65 (76) 95 10/12/18 04:30 153 27 120/70 (87) 96 10/12/18 04:15 150 27 130/86 (101) 97 10/12/18 04:00 Mechanical Ventilator 10/12/18 04:00 151 10/12/18 04:00 99.3 151 29 118/84 (95) 97 10/12/18 04:00 40 10/12/18 03:45 147 26 125/83 (97) 98 10/12/18 03:30 145 24 125/75 (92) 98 10/12/18 03:18 146 25 40 10/12/18 03:15 143 26 125/79 (94) 98 10/12/18 03:00 146 24 119/73 (88) 97 10/12/18 02:45 148 27 128/77 (94) 98 10/12/18 02:30 147 28 124/72 (89) 97 10/12/18 02:15 146 24 110/67 (81) 97 10/12/18 02:00 145 25 110/67 (81) 97 10/12/18 01:45 145 25 124/76 (92) 97 10/12/18 01:30 147 28 124/77 (93) 97 10/12/18 01:19 145 27 40 10/12/18 01:00 144 28 119/75 (90) 97 10/12/18 01:00 125/74 10/12/18 00:45 99.4 146 27 124/72 (89) 97 10/12/18 00:30 147 26 127/79 (95) 96 10/12/18 00:15 145 25 132/83 (99) 97 10/12/18 00:08 40 10/12/18 00:00 140 10/12/18 00:00 135 24 116/69 (85) 100 10/12/18 00:00 Mechanical Ventilator 10/12/18 00:00 40 10/11/18 23:45 134 24 112/72 (85) 100 10/11/18 23:30 134 24 106/67 (80) 100 10/11/18 23:15 135 24 104/66 (79) 100 10/11/18 23:00 136 24 100/61 (74) 100 10/11/18 22:45 99.3 135 24 121/72 (88) 100 10/11/18 22:39 130 24 60 10/11/18 22:30 135 24 126/69 (88) 100 10/11/18 22:15 135 24 119/67 (84) 100 10/11/18 22:00 135 24 121/69 (86) 100 10/11/18 21:45 89 24 109/58 (75) 100 10/11/18 21:30 88 24 108/53 (71) 100 10/11/18 21:18 93 24 60 10/11/18 21:15 91 24 105/57 (73) 100 10/11/18 21:00 92 24 105/55 (72) 100 10/11/18 20:45 90 24 106/56 (73) 100 10/11/18 20:30 90 24 103/54 (70) 100 10/11/18 20:15 92 24 103/55 (71) 100 10/11/18 20:13 99.3 10/11/18 20:00 96 10/11/18 20:00 90 24 97/55 (69) 100 10/11/18 20:00 60 10/11/18 20:00 Mechanical Ventilator 10/11/18 19:45 96 23 101/52 (68) 100 10/11/18 19:30 99.7 96 23 86/47 (60) 100 10/11/18 19:15 105 25 60 10/11/18 18:30 106 25 126/63 (84) 97 10/11/18 18:00 147 26 121/66 (84) 96 10/11/18 17:56 71/46 10/11/18 17:30 106 26 77/44 (55) 97 10/11/18 17:00 109 27 117/57 (77) 97 10/11/18 16:46 93 20 40 10/11/18 16:30 116 29 122/57 (78) 95 10/11/18 16:00 99.1 116 27 127/85 (99) 97 10/11/18 16:00 40 10/11/18 16:00 116 10/11/18 16:00 Mechanical Ventilator 10/11/18 15:30 110 26 128/54 (78) 97 10/11/18 15:00 111 26 111/61 (78) 100 10/11/18 14:52 94 20 40 10/11/18 14:30 113 26 128/63 (84) 100 Status: awake - intuated Condition: critical HEENT: atraumatic, normocephalic Lungs: clear Heart: HR/BP unstable, other - tachy Abdomen: soft, non-tender, active bowel sounds Extremities: edema - 1+ , cyanosis - no , clubbing - no Micro: Microbiology Date/Time Source Procedure Growth Status 10/11/18 03:45 Sputum Induced Gram Stain - Final Resulted 10/11/18 03:45 Sputum Induced Sputum Culture Pending Resulted 10/10/18 03:10 Stool Clostridium difficile Toxin Assay - Final Complete 10/10/18 00:00 Stool Stool Culture - Preliminary NORMAL FECAL BAKARI. Resulted 10/09/18 15:50 Urine,Clean Catch Urine Culture - Final NO GROWTH AFTER 48 HOURS Complete Accucheck: 206 Blood Sugars: BS controlled Critical Care - Subjective ROS Limited/Unobtainable: Yes ICU Day: 4 Intubation Day: 3 Interval Events: Off pressors, O2 needs stable on vent, ST IVUH stopped 2/2 low plt and bloody secretions Awake - mild distress Condition: critical IV Access: central - R fem CVC EKG Rhythm: Sinus Tachycardia FI02: 40 Vent Support Breath Rate: 20 Vent Support Mode: AC Vent Tidal Volume: 500 Sputum Amount: Scant PEEP: 5.0 PIP: 33 Secretions: scant blood tinged Fluids: NS@100 Drips: Off I&O: Intake and Output 10/11/18 10/12/18 19:00 07:00 Intake Total 1565.02 ml 1367.09 ml Output Total 225 ml 440 ml Balance 1340.02 ml 927.09 ml Intake IV Total 1565.02 ml 867.09 ml Blood Product 500 ml Output Urine Total 225 ml 440 ml # Bowel Movements 1 Subjective: JASON ET-Tube: 7.0 ET Position: 21 Labs: Laboratory Tests Test 10/11/18 19:15 10/11/18 22:55 10/12/18 05:00 10/12/18 13:05 Lactic Acid Level 2.70 mmol/L (0.4-2.0) H 2.70 mmol/L (0.66-2.22) H 2.00 mmol/L (0.4-2.0) Random Vancomycin Level 22.1 ug/mL White Blood Count 13.2 K/UL (4.8-10.8) H Red Blood Count 3.32 M/UL (4.20-5.40) L Hemoglobin 10.3 G/DL (12.0-16.0) #L Hematocrit 31.6 % (37.0-47.0) #L Mean Corpuscular Volume 95 FL (80-99) Mean Corpuscular Hemoglobin 31.0 PG (27.0-31.0) Mean Corpuscular Hemoglobin Concent 32.5 G/DL (32.0-36.0) Red Cell Distribution Width 15.8 % (11.6-14.8) H Platelet Count 60 K/UL (150-450) L Mean Platelet Volume 6.4 FL (6.5-10.1) L Neutrophils (%) (Auto) % (45.0-75.0) Lymphocytes (%) (Auto) % (20.0-45.0) Monocytes (%) (Auto) % (1.0-10.0) Eosinophils (%) (Auto) % (0.0-3.0) Basophils (%) (Auto) % (0.0-2.0) Differential Total Cells Counted 100 Neutrophils % (Manual) 84 % (45-75) H Lymphocytes % (Manual) 9 % (20-45) L Monocytes % (Manual) 7 % (1-10) Eosinophils % (Manual) 0 % (0-3) Basophils % (Manual) 0 % (0-2) Band Neutrophils 0 % (0-8) Platelet Estimate Decreased L Platelet Morphology Normal Anisocytosis 1+ Prothrombin Time 16.1 SEC (9.30-11.50) H Prothromb Time International Ratio 1.6 (0.9-1.1) H Activated Partial Thromboplast Time 35 SEC (23-33) H Sodium Level 137 MMOL/L (136-145) Potassium Level 3.7 MMOL/L (3.5-5.1) Chloride Level 107 MMOL/L (98-107) Carbon Dioxide Level 15 MMOL/L (21-32) L Anion Gap 15 mmol/L (5-15) Blood Urea Nitrogen 41 mg/dL (7-18) H Creatinine 2.9 MG/DL (0.55-1.30) H Estimat Glomerular Filtration Rate 16.7 mL/min (>60) Glucose Level 244 MG/DL (74-106) H Uric Acid 7.8 MG/DL (2.6-7.2) H Calcium Level 6.9 MG/DL (8.5-10.1) L Phosphorus Level 4.7 MG/DL (2.5-4.9) Magnesium Level 1.5 MG/DL (1.8-2.4) L Total Bilirubin 2.6 MG/DL (0.2-1.0) H Direct Bilirubin 1.8 MG/DL (0.0-0.3) H Aspartate Amino Transf (AST/SGOT) 2167 U/L (15-37) H Alanine Aminotransferase (ALT/SGPT) 3270 U/L (12-78) H Alkaline Phosphatase 617 U/L (46-116) H Ammonia 72 umol/L (11-32) H Troponin I 1.239 ng/mL (0.000-0.056) 0.818 ng/mL (0.000-0.056) C-Reactive Protein, Quantitative 20.8 mg/dL (0.00-0.90) H Pro-B-Type Natriuretic Peptide 2331 pg/mL (0-125) H Total Protein 4.7 G/DL (6.4-8.2) L Albumin 1.6 G/DL (3.4-5.0) L Globulin 3.1 g/dL Albumin/Globulin Ratio 0.5 (1.0-2.7) L Vancomycin Level Trough 19.5 ug/mL (5.0-12.0) H Renato Delarosa MD Oct 12, 2018 14:23
[2018-10-12] MEDS ORDERED: Midazolam 2mg/2ml Inj IVP PRN (14:30)
--- NOTE | 2018-10-12 14:31 | Consultation ---
History of Present Illness General Date patient seen: Oct 11, 2018 Chief Complaint: Multiple Trauma/Fall Referring physician: MINH KELLEY Reason for Consultation: CIRRHOSIS Present Illness Allergies: Coded Allergies: No Known Allergies (Unverified , 05/06/18) Medication History Scheduled Hydrochlorothiazide* (Hydrochlorothiazide*), Unknown Dose ORAL DAILY, (Reported) Metformin Hcl* (Metformin Hcl*), Unknown Dose ORAL TWICE A DAY, (Reported) Scheduled PRN Ibuprofen* (Motrin*), 600 MG ORAL Q6H PRN for For Pain Tramadol Hcl* (Ultram*), 50 MG ORAL Q6H PRN for For Pain Miscellaneous Medications Glipizide (Glipizide), Unknown Dose PO, (Reported) Naproxen (Ec-Naprosyn), Unknown Dose PO, (Reported) Patient History Healthcare decision maker Resuscitation status Full Code Advanced Directive on File Physical Exam Last 24 Hour Vital Signs Date Time Temp Pulse Resp B/P (MAP) Pulse Ox O2 Delivery O2 Flow Rate FiO2 10/12/18 14:00 152 28 102/68 (79) 97 10/12/18 13:45 152 27 104/58 (73) 97 10/12/18 13:30 151 28 115/68 (84) 98 10/12/18 13:15 148 24 118/76 (90) 97 10/12/18 13:12 146 26 40 10/12/18 13:00 148 26 121/79 (93) 98 10/12/18 12:45 150 26 128/81 (97) 97 10/12/18 12:30 98.6 150 26 123/88 (100) 96 10/12/18 12:00 Mechanical Ventilator 10/12/18 12:00 153 29 145/88 (107) 96 10/12/18 12:00 40 10/12/18 11:55 152 10/12/18 11:30 142 22 108/68 (81) 98 10/12/18 11:00 143 22 113/77 (89) 99 10/12/18 10:57 142 24 40 10/12/18 10:30 142 22 104/78 (87) 99 10/12/18 10:00 142 33 106/75 (85) 98 10/12/18 09:36 139 28 40 10/12/18 09:30 144 23 109/68 (82) 99 10/12/18 09:15 141 22 108/76 (87) 99 10/12/18 09:00 144 24 99/72 (81) 98 10/12/18 08:30 143 22 106/69 (81) 98 10/12/18 08:00 Mechanical Ventilator 10/12/18 08:00 40 10/12/18 08:00 146 24 102/76 (85) 98 10/12/18 07:58 145 10/12/18 07:45 147 28 118/77 (91) 98 10/12/18 07:35 145 24 40 10/12/18 07:30 98.2 147 23 110/70 (83) 98 10/12/18 07:00 148 27 100/80 (87) 99 10/12/18 06:30 149 25 106/71 (83) 98 10/12/18 06:00 150 25 100/63 (75) 97 10/12/18 05:45 148 24 102/63 (76) 97 10/12/18 05:30 151 26 95/65 (75) 96 10/12/18 05:15 151 27 100/59 (73) 96 10/12/18 05:08 152 27 40 10/12/18 05:00 152 28 105/67 (80) 97 10/12/18 04:45 152 27 98/65 (76) 95 10/12/18 04:30 153 27 120/70 (87) 96 10/12/18 04:15 150 27 130/86 (101) 97 10/12/18 04:00 Mechanical Ventilator 10/12/18 04:00 151 10/12/18 04:00 99.3 151 29 118/84 (95) 97 10/12/18 04:00 40 10/12/18 03:45 147 26 125/83 (97) 98 10/12/18 03:30 145 24 125/75 (92) 98 10/12/18 03:18 146 25 40 10/12/18 03:15 143 26 125/79 (94) 98 10/12/18 03:00 146 24 119/73 (88) 97 10/12/18 02:45 148 27 128/77 (94) 98 10/12/18 02:30 147 28 124/72 (89) 97 10/12/18 02:15 146 24 110/67 (81) 97 10/12/18 02:00 145 25 110/67 (81) 97 10/12/18 01:45 145 25 124/76 (92) 97 10/12/18 01:30 147 28 124/77 (93) 97 10/12/18 01:19 145 27 40 10/12/18 01:00 144 28 119/75 (90) 97 10/12/18 01:00 125/74 10/12/18 00:45 99.4 146 27 124/72 (89) 97 10/12/18 00:30 147 26 127/79 (95) 96 10/12/18 00:15 145 25 132/83 (99) 97 10/12/18 00:08 40 10/12/18 00:00 140 10/12/18 00:00 135 24 116/69 (85) 100 10/12/18 00:00 Mechanical Ventilator 10/12/18 00:00 40 10/11/18 23:45 134 24 112/72 (85) 100 10/11/18 23:30 134 24 106/67 (80) 100 10/11/18 23:15 135 24 104/66 (79) 100 10/11/18 23:00 136 24 100/61 (74) 100 10/11/18 22:45 99.3 135 24 121/72 (88) 100 10/11/18 22:39 130 24 60 10/11/18 22:30 135 24 126/69 (88) 100 10/11/18 22:15 135 24 119/67 (84) 100 10/11/18 22:00 135 24 121/69 (86) 100 10/11/18 21:45 89 24 109/58 (75) 100 10/11/18 21:30 88 24 108/53 (71) 100 10/11/18 21:18 93 24 60 10/11/18 21:15 91 24 105/57 (73) 100 10/11/18 21:00 92 24 105/55 (72) 100 10/11/18 20:45 90 24 106/56 (73) 100 10/11/18 20:30 90 24 103/54 (70) 100 10/11/18 20:15 92 24 103/55 (71) 100 10/11/18 20:13 99.3 10/11/18 20:00 96 10/11/18 20:00 90 24 97/55 (69) 100 10/11/18 20:00 60 10/11/18 20:00 Mechanical Ventilator 10/11/18 19:45 96 23 101/52 (68) 100 10/11/18 19:30 99.7 96 23 86/47 (60) 100 10/11/18 19:15 105 25 60 10/11/18 18:30 106 25 126/63 (84) 97 10/11/18 18:00 147 26 121/66 (84) 96 10/11/18 17:56 71/46 10/11/18 17:30 106 26 77/44 (55) 97 10/11/18 17:00 109 27 117/57 (77) 97 10/11/18 16:46 93 20 40 10/11/18 16:30 116 29 122/57 (78) 95 10/11/18 16:00 99.1 116 27 127/85 (99) 97 10/11/18 16:00 40 10/11/18 16:00 116 10/11/18 16:00 Mechanical Ventilator 10/11/18 15:30 110 26 128/54 (78) 97 10/11/18 15:00 111 26 111/61 (78) 100 10/11/18 14:52 94 20 40 10/11/18 14:30 113 26 128/63 (84) 100 Intake and Output 10/11/18 10/12/18 19:00 07:00 Intake Total 1565.02 ml 1367.09 ml Output Total 225 ml 440 ml Balance 1340.02 ml 927.09 ml Intake IV Total 1565.02 ml 867.09 ml Blood Product 500 ml Output Urine Total 225 ml 440 ml # Bowel Movements 1 Laboratory Tests Test 10/11/18 19:15 10/11/18 22:55 10/12/18 05:00 10/12/18 13:05 Lactic Acid Level 2.70 mmol/L (0.4-2.0) H 2.70 mmol/L (0.66-2.22) H 2.00 mmol/L (0.4-2.0) Random Vancomycin Level 22.1 ug/mL White Blood Count 13.2 K/UL (4.8-10.8) H Red Blood Count 3.32 M/UL (4.20-5.40) L Hemoglobin 10.3 G/DL (12.0-16.0) #L Hematocrit 31.6 % (37.0-47.0) #L Mean Corpuscular Volume 95 FL (80-99) Mean Corpuscular Hemoglobin 31.0 PG (27.0-31.0) Mean Corpuscular Hemoglobin Concent 32.5 G/DL (32.0-36.0) Red Cell Distribution Width 15.8 % (11.6-14.8) H Platelet Count 60 K/UL (150-450) L Mean Platelet Volume 6.4 FL (6.5-10.1) L Neutrophils (%) (Auto) % (45.0-75.0) Lymphocytes (%) (Auto) % (20.0-45.0) Monocytes (%) (Auto) % (1.0-10.0) Eosinophils (%) (Auto) % (0.0-3.0) Basophils (%) (Auto) % (0.0-2.0) Differential Total Cells Counted 100 Neutrophils % (Manual) 84 % (45-75) H Lymphocytes % (Manual) 9 % (20-45) L Monocytes % (Manual) 7 % (1-10) Eosinophils % (Manual) 0 % (0-3) Basophils % (Manual) 0 % (0-2) Band Neutrophils 0 % (0-8) Platelet Estimate Decreased L Platelet Morphology Normal Anisocytosis 1+ Prothrombin Time 16.1 SEC (9.30-11.50) H Prothromb Time International Ratio 1.6 (0.9-1.1) H Activated Partial Thromboplast Time 35 SEC (23-33) H Sodium Level 137 MMOL/L (136-145) Potassium Level 3.7 MMOL/L (3.5-5.1) Chloride Level 107 MMOL/L (98-107) Carbon Dioxide Level 15 MMOL/L (21-32) L Anion Gap 15 mmol/L (5-15) Blood Urea Nitrogen 41 mg/dL (7-18) H Creatinine 2.9 MG/DL (0.55-1.30) H Estimat Glomerular Filtration Rate 16.7 mL/min (>60) Glucose Level 244 MG/DL (74-106) H Uric Acid 7.8 MG/DL (2.6-7.2) H Calcium Level 6.9 MG/DL (8.5-10.1) L Phosphorus Level 4.7 MG/DL (2.5-4.9) Magnesium Level 1.5 MG/DL (1.8-2.4) L Total Bilirubin 2.6 MG/DL (0.2-1.0) H Direct Bilirubin 1.8 MG/DL (0.0-0.3) H Aspartate Amino Transf (AST/SGOT) 2167 U/L (15-37) H Alanine Aminotransferase (ALT/SGPT) 3270 U/L (12-78) H Alkaline Phosphatase 617 U/L (46-116) H Ammonia 72 umol/L (11-32) H Troponin I 1.239 ng/mL (0.000-0.056) 0.818 ng/mL (0.000-0.056) C-Reactive Protein, Quantitative 20.8 mg/dL (0.00-0.90) H Pro-B-Type Natriuretic Peptide 2331 pg/mL (0-125) H Total Protein 4.7 G/DL (6.4-8.2) L Albumin 1.6 G/DL (3.4-5.0) L Globulin 3.1 g/dL Albumin/Globulin Ratio 0.5 (1.0-2.7) L Vancomycin Level Trough 19.5 ug/mL (5.0-12.0) H Height (Feet): 5 Height (Inches): 1.00 Weight (Pounds): 250 Medications Current Medications Medications (Trade) Dose Ordered Sig/Patricia Route PRN Reason Start Time Stop Time Status Last Admin Dose Admin Acetaminophen (Tylenol) 650 mg Q4H PRN ORAL Mild Pain/Temp > 100.5 10/09/18 14:15 11/08/18 14:14 10/11/18 19:43 Albuterol/ Ipratropium (Albuterol/ Ipratropium) 3 ml Q4H PRN HHN Shortness of Breath 10/09/18 14:30 10/14/18 14:29 Chlorhexidine Gluconate (Nguyen-Hex 2%) 1 applic DAILY@2000 TOPIC 10/10/18 20:00 11/09/18 19:59 10/11/18 19:40 Dextrose (Dextrose 50%) 25 ml Q30M PRN IV Hypoglycemia 10/11/18 13:45 11/10/18 13:44 Dextrose (Dextrose 50%) 50 ml Q30M PRN IV Hypoglycemia 10/11/18 13:45 11/10/18 13:44 Diphenhydramine HCl (Benadryl) 25 mg Q6H PRN IVP Itching 10/09/18 14:30 11/08/18 14:29 Fentanyl Citrate 2500 mcg/Sodium Chloride 250 ml @ 0 mls/hr Q24H IV 10/12/18 14:30 10/19/18 14:29 UNV Insulin Aspart (NovoLOG) BEFORE MEALS AND HS SUBQ 10/11/18 16:30 11/10/18 16:29 10/12/18 11:21 Midazolam HCl (Versed 2mg/2ml vial) 1 mg EVERY 2 HOURS PRN IVP For Anxiety 10/12/18 14:30 11/11/18 14:29 UNV Morphine Sulfate (Morphine Sulfate) 2 mg Q4H PRN IVP Severe Pain (Pain Scale 7-10) 10/09/18 14:15 10/16/18 14:14 10/09/18 14:35 Norepinephrine Bitartrate 16 mg/ Sodium Chloride 500 ml @ 0 mls/hr Q24H IV 10/09/18 21:00 11/08/18 20:59 10/11/18 17:56 Ondansetron HCl (Zofran) 4 mg Q6H PRN IVP Nausea & Vomiting 10/09/18 14:30 11/08/18 14:29 Pantoprazole (Protonix) 40 mg EVERY 12 HOURS IVP 10/10/18 21:00 11/09/18 20:59 10/12/18 08:06 Piperacillin Sod/ Tazobactam Sod 3.375 gm/Dextrose 110 ml @ 27.5 mls/hr Q12H IVPB 10/11/18 18:00 10/18/18 17:59 10/12/18 05:53 Rifaximin (Xifaxan) 550 mg EVERY 12 HOURS ORAL 10/12/18 21:00 10/19/18 20:59 Sodium Chloride 1,000 ml @ 100 mls/hr Q10H IV 10/11/18 13:45 11/10/18 13:44 10/12/18 08:07 Vancomycin HCl (Vanco rx to dose) 1 ea DAILY PRN MISC Per rx protocol 10/09/18 14:30 11/08/18 14:29 Vasopressin 100 units/Sodium Chloride 105 ml @ 2.52 mls/hr Q24H IV 10/10/18 14:00 11/09/18 13:59 10/12/18 08:06 Assessment/Plan Assessment/Plan Hematology Consultation DOS: 10/11/18 REQ MD: Jai Kelley RFC: Thrombocytopenia RFA: Sepsis. HISTORY OF PRESENT ILLNESS: The patient is a very pleasant 58-year-old female with a history of obesity, hypertension, and diabetes, who was brought into the ER after a mechanical fall with confusion and altere mental status. The patient was going to the bathroom to urinate when she fell. There is no history of loss of consciousness , but per her family at bedside, she has been confused. In the ER, she had evidence of multisystem organ failure, abnormal creatinine, LFTs, and troponinemia and was admitted for further evaluation and management. Upon arrival in the ER, she was confused, paler. She was hypotensive. She was given multiple bags of saline. Ultimately, a central line was placed. She was placed on Levophed. She is currently on 4 mcg of Levophed. She had a right subclavian central line placed by Dr. [place]. In the ER, she received broad- spectrum antibiotics including vancomycin and Zosyn. She was also given a shot of Lovenox. remains in icu, with low plts, heme was consulted. PAST MEDICAL HISTORY: Obesity, diabetes, hypertension, and sciatica. PAST SURGICAL HISTORY: Bilateral knee replacements. ALLERGIES: No known drug allergies. MEDICATIONS: Prior to admission medications, glipizide, hydrochlorothiazide, Motrin, metformin, naproxen, and tramadol. SOCIAL HISTORY: No tobacco, alcohol, or drug use. FAMILY HISTORY: Noncontributory. REVIEW OF SYSTEMS: Difficult to obtain on VENT PHYSICAL EXAMINATION: VITAL SIGNS: Temperature 97.9, blood pressure 97/32, pulse 112, and saturating 100% on VENT GENERAL: She is an obese female, confused. HEENT: Normocephalic and atraumatic. Oropharynx is clear with dry mucous membranes. NECK: Supple without lymphadenopathy or JVP. CHEST: Clear. ++ Vent HEART: Regular. ABDOMEN: Benign. EXTREMITIES: No cyanosis, clubbing, or edema. There are some ecchymoses in bilateral lower extremities. ANCILLARY DATA: On 10/09/2018, CT of the neck - no acute bony trauma. Multilevel degenerative changes noted. On 09/29/2018, CT of the head - negative for acute intracranial bleed or mass effect. Minimal sinus disease is noted. On 10/09/2018, chest x-ray - cardiomegaly and right base atelectasis. On 10/09/2018, CT abdomen and pelvis - limited exam with no contrast, evidence of cirrhosis and ascites, absent gallbladder, atelectatic changes and patchy consolidation at the bases, minimal edema of the bilateral subcutaneous fat, degenerative spondylosis, right hepatic lobe calcification, and Quiroz catheter. Laboratory Tests Test 10/11/18 19:15 10/11/18 22:55 10/12/18 05:00 10/12/18 13:05 Lactic Acid Level 2.70 mmol/L (0.4-2.0) H 2.70 mmol/L (0.66-2.22) H 2.00 mmol/L (0.4-2.0) Random Vancomycin Level 22.1 ug/mL White Blood Count 13.2 K/UL (4.8-10.8) H Red Blood Count 3.32 M/UL (4.20-5.40) L Hemoglobin 10.3 G/DL (12.0-16.0) #L Hematocrit 31.6 % (37.0-47.0) #L Mean Corpuscular Volume 95 FL (80-99) Mean Corpuscular Hemoglobin 31.0 PG (27.0-31.0) Mean Corpuscular Hemoglobin Concent 32.5 G/DL (32.0-36.0) Red Cell Distribution Width 15.8 % (11.6-14.8) H Platelet Count 60 K/UL (150-450) L Mean Platelet Volume 6.4 FL (6.5-10.1) L Neutrophils (%) (Auto) % (45.0-75.0) Lymphocytes (%) (Auto) % (20.0-45.0) Monocytes (%) (Auto) % (1.0-10.0) Eosinophils (%) (Auto) % (0.0-3.0) Basophils (%) (Auto) % (0.0-2.0) Differential Total Cells Counted 100 Neutrophils % (Manual) 84 % (45-75) H Lymphocytes % (Manual) 9 % (20-45) L Monocytes % (Manual) 7 % (1-10) Eosinophils % (Manual) 0 % (0-3) Basophils % (Manual) 0 % (0-2) Band Neutrophils 0 % (0-8) Platelet Estimate Decreased L Platelet Morphology Normal Anisocytosis 1+ Prothrombin Time 16.1 SEC (9.30-11.50) H Prothromb Time International Ratio 1.6 (0.9-1.1) H Activated Partial Thromboplast Time 35 SEC (23-33) H Sodium Level 137 MMOL/L (136-145) Potassium Level 3.7 MMOL/L (3.5-5.1) Chloride Level 107 MMOL/L (98-107) Carbon Dioxide Level 15 MMOL/L (21-32) L Anion Gap 15 mmol/L (5-15) Blood Urea Nitrogen 41 mg/dL (7-18) H Creatinine 2.9 MG/DL (0.55-1.30) H Estimat Glomerular Filtration Rate 16.7 mL/min (>60) Glucose Level 244 MG/DL (74-106) H Uric Acid 7.8 MG/DL (2.6-7.2) H Calcium Level 6.9 MG/DL (8.5-10.1) L Phosphorus Level 4.7 MG/DL (2.5-4.9) Magnesium Level 1.5 MG/DL (1.8-2.4) L Total Bilirubin 2.6 MG/DL (0.2-1.0) H Direct Bilirubin 1.8 MG/DL (0.0-0.3) H Aspartate Amino Transf (AST/SGOT) 2167 U/L (15-37) H Alanine Aminotransferase (ALT/SGPT) 3270 U/L (12-78) H Alkaline Phosphatase 617 U/L (46-116) H Ammonia 72 umol/L (11-32) H Troponin I 1.239 ng/mL (0.000-0.056) 0.818 ng/mL (0.000-0.056) C-Reactive Protein, Quantitative 20.8 mg/dL (0.00-0.90) H Pro-B-Type Natriuretic Peptide 2331 pg/mL (0-125) H Total Protein 4.7 G/DL (6.4-8.2) L Albumin 1.6 G/DL (3.4-5.0) L Globulin 3.1 g/dL Albumin/Globulin Ratio 0.5 (1.0-2.7) L Vancomycin Level Trough 19.5 ug/mL (5.0-12.0) H Assessment and Recs: # Thrombocytopenia - potential causes multifactorial, evaluate liver and viral etiologies to begin, also could be related to underlying medications patient has received. Hx of cirrhosis in the past noted on us --> Hep panel and HIV ordered --> CT a/p to evaluate for cirrhosis and hsm does show cirrhosis --> Peripheral smear ordered to evaluate for blasts /schistocytes --> abx and other meds have been reviewed --> ok for ppx if plt >50k w/ either heparin or lovenox --> Transfuse if Plt < 20k and fever, or if Plt < 10k without fever --> Also HIT panel ordered had been on heparin upon admission, now off it # Anemia of iron deficiency as noted with low % sat and tibc elevated --> Anemia workup has been reviewed --> No evidence of hemolysis is noted, peripheral smear has been reviewed. --> Hgb goal >7. Transfuse prn. --> Iron IV X 5 days started --> Medications have been reviewed # Sepsis likely contributing to low plts --> on abx as needed # Shock, hypovolemic and distributive. --> per id and pulm/cc care # Multisystem organ failure. # Lactic acidosis. # JONNATHAN. # Abnormal LFTs, likely shock liver. # Abnormal troponin, likely demand ischemia. # Obesity. The timing of this note does not necessarily reflect the time of the patient was seen. Greatly appreciate consultation! Kurtis Villagomez MD Oct 12, 2018 14:31
--- NOTE | 2018-10-12 14:48 | NUR ---
NURSE NOTES: Notified Dr Delarosa regarding ABG result. No new orders.
--- NOTE | 2018-10-12 15:13 | Cardiac Electrophysiology PN ---
Assessment/Plan Assessment/Plan 1. Atrial fib with RVR. Can't use Betablocker or CA janet for hypotension. Will Digitalize patient 2. Septic shock, etiology is not clear. The patient is on broad spectrum IV antibiotic. Off both vasopressin, and Levophed. Got 2 units of blood transfusion 3. Troponin leak. The levels are flat and likely due to this patient's sepsis and septic shock. Her echocardiogram showed ejection fraction 60% to 65% and EKG showed no acute ischemic changes. 4. Respiratory failure on the Vent 5. Diabetes. 6. Renal failure. 7. Morbid obesity. [employer] Subjective Subjective In ICU on Vent and off pressors but developed atrial fib with RVR up to 150s Objective Last 24 Hour Vital Signs Date Time Temp Pulse Resp B/P (MAP) Pulse Ox O2 Delivery O2 Flow Rate FiO2 10/12/18 14:00 152 28 102/68 (79) 97 10/12/18 13:45 152 27 104/58 (73) 97 10/12/18 13:30 151 28 115/68 (84) 98 10/12/18 13:15 148 24 118/76 (90) 97 10/12/18 13:12 146 26 40 10/12/18 13:00 148 26 121/79 (93) 98 10/12/18 12:45 150 26 128/81 (97) 97 10/12/18 12:30 98.6 150 26 123/88 (100) 96 10/12/18 12:00 Mechanical Ventilator 10/12/18 12:00 153 29 145/88 (107) 96 10/12/18 12:00 40 10/12/18 11:55 152 10/12/18 11:30 142 22 108/68 (81) 98 10/12/18 11:00 143 22 113/77 (89) 99 10/12/18 10:57 142 24 40 10/12/18 10:30 142 22 104/78 (87) 99 10/12/18 10:00 142 33 106/75 (85) 98 10/12/18 09:36 139 28 40 10/12/18 09:30 144 23 109/68 (82) 99 10/12/18 09:15 141 22 108/76 (87) 99 10/12/18 09:00 144 24 99/72 (81) 98 10/12/18 08:30 143 22 106/69 (81) 98 10/12/18 08:00 Mechanical Ventilator 10/12/18 08:00 40 10/12/18 08:00 146 24 102/76 (85) 98 10/12/18 07:58 145 10/12/18 07:45 147 28 118/77 (91) 98 10/12/18 07:35 145 24 40 10/12/18 07:30 98.2 147 23 110/70 (83) 98 10/12/18 07:00 148 27 100/80 (87) 99 10/12/18 06:30 149 25 106/71 (83) 98 10/12/18 06:00 150 25 100/63 (75) 97 10/12/18 05:45 148 24 102/63 (76) 97 10/12/18 05:30 151 26 95/65 (75) 96 10/12/18 05:15 151 27 100/59 (73) 96 10/12/18 05:08 152 27 40 10/12/18 05:00 152 28 105/67 (80) 97 10/12/18 04:45 152 27 98/65 (76) 95 10/12/18 04:30 153 27 120/70 (87) 96 10/12/18 04:15 150 27 130/86 (101) 97 10/12/18 04:00 Mechanical Ventilator 10/12/18 04:00 151 10/12/18 04:00 99.3 151 29 118/84 (95) 97 10/12/18 04:00 40 10/12/18 03:45 147 26 125/83 (97) 98 10/12/18 03:30 145 24 125/75 (92) 98 10/12/18 03:18 146 25 40 10/12/18 03:15 143 26 125/79 (94) 98 10/12/18 03:00 146 24 119/73 (88) 97 10/12/18 02:45 148 27 128/77 (94) 98 10/12/18 02:30 147 28 124/72 (89) 97 10/12/18 02:15 146 24 110/67 (81) 97 10/12/18 02:00 145 25 110/67 (81) 97 10/12/18 01:45 145 25 124/76 (92) 97 10/12/18 01:30 147 28 124/77 (93) 97 10/12/18 01:19 145 27 40 10/12/18 01:00 144 28 119/75 (90) 97 10/12/18 01:00 125/74 10/12/18 00:45 99.4 146 27 124/72 (89) 97 10/12/18 00:30 147 26 127/79 (95) 96 10/12/18 00:15 145 25 132/83 (99) 97 10/12/18 00:08 40 10/12/18 00:00 140 10/12/18 00:00 135 24 116/69 (85) 100 10/12/18 00:00 Mechanical Ventilator 10/12/18 00:00 40 10/11/18 23:45 134 24 112/72 (85) 100 10/11/18 23:30 134 24 106/67 (80) 100 10/11/18 23:15 135 24 104/66 (79) 100 10/11/18 23:00 136 24 100/61 (74) 100 10/11/18 22:45 99.3 135 24 121/72 (88) 100 10/11/18 22:39 130 24 60 10/11/18 22:30 135 24 126/69 (88) 100 10/11/18 22:15 135 24 119/67 (84) 100 10/11/18 22:00 135 24 121/69 (86) 100 10/11/18 21:45 89 24 109/58 (75) 100 10/11/18 21:30 88 24 108/53 (71) 100 10/11/18 21:18 93 24 60 10/11/18 21:15 91 24 105/57 (73) 100 10/11/18 21:00 92 24 105/55 (72) 100 10/11/18 20:45 90 24 106/56 (73) 100 10/11/18 20:30 90 24 103/54 (70) 100 10/11/18 20:15 92 24 103/55 (71) 100 10/11/18 20:13 99.3 10/11/18 20:00 96 10/11/18 20:00 90 24 97/55 (69) 100 10/11/18 20:00 60 10/11/18 20:00 Mechanical Ventilator 10/11/18 19:45 96 23 101/52 (68) 100 10/11/18 19:30 99.7 96 23 86/47 (60) 100 10/11/18 19:15 105 25 60 10/11/18 18:30 106 25 126/63 (84) 97 10/11/18 18:00 147 26 121/66 (84) 96 10/11/18 17:56 71/46 10/11/18 17:30 106 26 77/44 (55) 97 10/11/18 17:00 109 27 117/57 (77) 97 10/11/18 16:46 93 20 40 10/11/18 16:30 116 29 122/57 (78) 95 10/11/18 16:00 99.1 116 27 127/85 (99) 97 10/11/18 16:00 40 10/11/18 16:00 116 10/11/18 16:00 Mechanical Ventilator 10/11/18 15:30 110 26 128/54 (78) 97 Intake and Output 10/11/18 10/12/18 19:00 07:00 Intake Total 1565.02 ml 1367.09 ml Output Total 225 ml 440 ml Balance 1340.02 ml 927.09 ml Intake IV Total 1565.02 ml 867.09 ml Blood Product 500 ml Output Urine Total 225 ml 440 ml # Bowel Movements 1 Laboratory Tests Test 10/11/18 19:15 10/11/18 22:55 10/12/18 05:00 10/12/18 13:05 Lactic Acid Level 2.70 mmol/L (0.4-2.0) H 2.70 mmol/L (0.66-2.22) H 2.00 mmol/L (0.4-2.0) Random Vancomycin Level 22.1 ug/mL White Blood Count 13.2 K/UL (4.8-10.8) H Red Blood Count 3.32 M/UL (4.20-5.40) L Hemoglobin 10.3 G/DL (12.0-16.0) #L Hematocrit 31.6 % (37.0-47.0) #L Mean Corpuscular Volume 95 FL (80-99) Mean Corpuscular Hemoglobin 31.0 PG (27.0-31.0) Mean Corpuscular Hemoglobin Concent 32.5 G/DL (32.0-36.0) Red Cell Distribution Width 15.8 % (11.6-14.8) H Platelet Count 60 K/UL (150-450) L Mean Platelet Volume 6.4 FL (6.5-10.1) L Neutrophils (%) (Auto) % (45.0-75.0) Lymphocytes (%) (Auto) % (20.0-45.0) Monocytes (%) (Auto) % (1.0-10.0) Eosinophils (%) (Auto) % (0.0-3.0) Basophils (%) (Auto) % (0.0-2.0) Differential Total Cells Counted 100 Neutrophils % (Manual) 84 % (45-75) H Lymphocytes % (Manual) 9 % (20-45) L Monocytes % (Manual) 7 % (1-10) Eosinophils % (Manual) 0 % (0-3) Basophils % (Manual) 0 % (0-2) Band Neutrophils 0 % (0-8) Platelet Estimate Decreased L Platelet Morphology Normal Anisocytosis 1+ Prothrombin Time 16.1 SEC (9.30-11.50) H Prothromb Time International Ratio 1.6 (0.9-1.1) H Activated Partial Thromboplast Time 35 SEC (23-33) H Sodium Level 137 MMOL/L (136-145) Potassium Level 3.7 MMOL/L (3.5-5.1) Chloride Level 107 MMOL/L (98-107) Carbon Dioxide Level 15 MMOL/L (21-32) L Anion Gap 15 mmol/L (5-15) Blood Urea Nitrogen 41 mg/dL (7-18) H Creatinine 2.9 MG/DL (0.55-1.30) H Estimat Glomerular Filtration Rate 16.7 mL/min (>60) Glucose Level 244 MG/DL (74-106) H Uric Acid 7.8 MG/DL (2.6-7.2) H Calcium Level 6.9 MG/DL (8.5-10.1) L Phosphorus Level 4.7 MG/DL (2.5-4.9) Magnesium Level 1.5 MG/DL (1.8-2.4) L Total Bilirubin 2.6 MG/DL (0.2-1.0) H Direct Bilirubin 1.8 MG/DL (0.0-0.3) H Aspartate Amino Transf (AST/SGOT) 2167 U/L (15-37) H Alanine Aminotransferase (ALT/SGPT) 3270 U/L (12-78) H Alkaline Phosphatase 617 U/L (46-116) H Ammonia 72 umol/L (11-32) H Troponin I 1.239 ng/mL (0.000-0.056) 0.818 ng/mL (0.000-0.056) C-Reactive Protein, Quantitative 20.8 mg/dL (0.00-0.90) H Pro-B-Type Natriuretic Peptide 2331 pg/mL (0-125) H Total Protein 4.7 G/DL (6.4-8.2) L Albumin 1.6 G/DL (3.4-5.0) L Globulin 3.1 g/dL Albumin/Globulin Ratio 0.5 (1.0-2.7) L Vancomycin Level Trough 19.5 ug/mL (5.0-12.0) H Test 10/12/18 14:35 Arterial Blood pH 7.349 (7.350-7.450) Arterial Blood Partial Pressure CO2 26.5 mmHg (35.0-45.0) L Arterial Blood Partial Pressure O2 97.1 mmHg (75.0-100.0) Arterial Blood HCO3 14.3 mmol/L (22.0-26.0) *L Arterial Blood Oxygen Saturation 96.6 % (95-100) Arterial Blood Base Excess -9.9 (-2-2) *L Ortiz Test Positive Microbiology Date/Time Source Procedure Growth Status 10/11/18 03:45 Sputum Induced Gram Stain - Final Resulted 10/11/18 03:45 Sputum Induced Sputum Culture Pending Resulted 10/10/18 03:10 Stool Clostridium difficile Toxin Assay - Final Complete 10/10/18 00:00 Stool Stool Culture - Preliminary NORMAL FECAL BAKARI. Resulted 10/09/18 15:50 Urine,Clean Catch Urine Culture - Final NO GROWTH AFTER 48 HOURS Complete Objective HEAD AND NECK: Shows no JVD. She is orally intubated. LUNGS: Coarse rhonchi. CARDIOVASCULAR: Tachycardic S1, S2 with no gallop or murmur. ABDOMEN: Obese. EXTREMITIES: No pitting edema. Sean Montanez MD Oct 12, 2018 15:13
--- NOTE | 2018-10-12 15:22 | NUR ---
NURSE NOTES: Dr Montanez here to see the patient. HR 150's. Updated doctor with pt's current condition. STAT EKG was done at bedside, showing A-fib with RVR. Notified Dr Montanez. Digoxin was ordered by Dr Fenton.
[2018-10-12] MEDS ORDERED: Digoxin 0.5mg/2ml Inj IVP SCH (15:30)
--- NOTE | 2018-10-12 15:46 | NUR ---
RADIOLOGY DEPT CHEST X-RAY DONE.-P.DYE
[2018-10-12] MEDS: fentaNYL Citrate 2,500 MCG in NS 200 ML IV SCH (15:47)
--- NOTE | 2018-10-12 16:16 | NUR ---
NURSE NOTES: HR came down to 100's after Digoxin. Sinus tachy noted. Notified Dr Montanez regarding the current HR and rhythm in nursing station. Fentany drip started and is running at 10mcg/hr as per protocol. Will continue to monitor.
--- NOTE | 2018-10-12 16:37 | Diagnostic Imaging Report ---
Indication: Shortness of breath Technique: One view of the chest Comparison: 10/11/2018 Findings: Stable satisfactory position of endotracheal tube. Gastric tube projects off the edge of image. Low lung volumes with basilar atelectatic changes are again demonstrated. Findings are overall unchanged Impression: Unchanged, over one day, findings as above.
[2018-10-12] MEDS ORDERED: Tubing IV Secondary IV ONE ×2 (16:53→17:09)
[2018-10-12] MEDS ORDERED: NS 500ML ONE (16:53)
[2018-10-12] MEDS ORDERED: NS 275ml ONE (17:09)
[2018-10-12] MEDS ORDERED: D5NS 1000ml IV ONE (17:09)
[2018-10-12] MEDS ORDERED: D5W 275ml ONE (17:09)
--- NOTE | 2018-10-12 18:49 | NUR ---
RESPIRATORY NOTE: Received pt on AC 20, 500VT, 40%, PEEP +5. Pt intubated w/ ETT 7.0 @ 21cm lipline, secured by anchorfast. Pt is alert/awake, follows commands. B/S mukul. clear/diminished, sxn minimal amounts of thin, bloody secretions. Vent plugged into red outlet, ambubag at bedside. Pt resting comfortably, in no apparent distress at this time. Will continue to monitor pt.
--- NOTE | 2018-10-12 19:11 | NUR ---
HAND-OFF: Report given to KARI Figueroa.
--- NOTE | 2018-10-12 19:50 | NUR ---
NURSE NOTES: Received pt in bed with eyes closed, arousable to verbal and tactile stimuli. Orally intubated on AC 20, Vt 500. P 5 fio2 40%. OGT clamped at this time. Right Femoral TLC running NS @ 100 cc/hr, Fentanyl @ 20 mcg/hr. Quiroz cath draining by gravity. Pt denies any pain or discomfort at this time. Bed in lowest position, side rails upx3. No signs of distress noted. Will continue to monitor.
[2018-10-12] MEDS: Iron Sucrose 100 MG in NS 55 ML IV SCH (20:13)
[2018-10-12] MEDS: Dyna-Hex 2% Top Sol 2oz TOPIC SCH (20:13)
[2018-10-12] MEDS: Norepinephrine Bitartrate 16 MG in Sodium Chloride 484 ML IV SCH (20:21)
--- NOTE | 2018-10-12 21:00 | NUR ---
NURSE NOTES: Patient sleeping at this time. continues on Fentanyl @ 20 mcg/min. Family at the bedside. Will continue to monitor
--- NOTE | 2018-10-12 21:19 | General Progress Note ---
Assessment/Plan Problem List: (1) Hypotension ICD Codes: I95.9 - Hypotension, unspecified SNOMED: 51484670 (2) Hyperglycemia ICD Codes: R73.9 - Hyperglycemia, unspecified SNOMED: 17048057 (3) Dyspnea ICD Codes: R06.00 - Dyspnea, unspecified SNOMED: 858425076 (4) Hypoxemia ICD Codes: R09.02 - Hypoxemia SNOMED: 619976762 (5) Contusion of left knee ICD Codes: S80.02XA - Contusion of left knee, initial encounter SNOMED: 20146784 (6) Sepsis ICD Codes: A41.9 - Sepsis, unspecified organism SNOMED: 21745708 (7) Septic shock ICD Codes: A41.9 - Sepsis, unspecified organism; R65.21 - Severe sepsis with septic shock SNOMED: 69310463 (8) Liver cirrhosis ICD Codes: K74.60 - Unspecified cirrhosis of liver SNOMED: 48330707 (9) Pneumonia ICD Codes: J18.9 - Pneumonia, unspecified organism SNOMED: 270547379 (10) Respiratory disorder with ventilator dependence ICD Codes: J98.9 - Respiratory disorder, unspecified; Z99.11 - Dependence on respirator [ventilator] status SNOMED: 09144185, 699230264 (11) Shock liver ICD Codes: K72.00 - Acute and subacute hepatic failure without coma SNOMED: 583425920 Status: progressing Assessment/Plan shock liver improving cihrrosis sepsis obesity morbid respiratory failure afebrile pna abx per id reviewed chart and labs Subjective ROS Limited/Unobtainable: Yes Allergies: Coded Allergies: No Known Allergies (Unverified , 05/06/18) Objective Last 24 Hour Vital Signs Date Time Temp Pulse Resp B/P (MAP) Pulse Ox O2 Delivery O2 Flow Rate FiO2 10/12/18 20:21 117/58 10/12/18 19:00 124 25 105/58 (74) 97 10/12/18 19:00 25 Mechanical Ventilator 40 10/12/18 18:47 124 23 40 10/12/18 18:00 110 23 102/44 (63) 98 10/12/18 18:00 23 Mechanical Ventilator 40 10/12/18 17:30 109 23 105/51 (69) 98 10/12/18 17:18 113 25 40 10/12/18 17:15 111 24 102/68 (79) 98 10/12/18 17:00 121 25 100/51 (67) 98 10/12/18 17:00 22 Mechanical Ventilator 40 10/12/18 16:45 112 25 95/50 (65) 98 10/12/18 16:30 117 25 98/48 (65) 98 10/12/18 16:15 117 25 96/55 (69) 98 10/12/18 16:00 40 10/12/18 16:00 25 Mechanical Ventilator 40 10/12/18 16:00 Mechanical Ventilator 10/12/18 16:00 98.3 104 25 110/50 (70) 98 10/12/18 15:51 104 10/12/18 15:47 26 Mechanical Ventilator 40 10/12/18 15:42 149 10/12/18 15:36 149 28 40 10/12/18 15:00 149 24 100/70 (80) 97 10/12/18 14:00 152 28 102/68 (79) 97 10/12/18 13:45 152 27 104/58 (73) 97 10/12/18 13:30 151 28 115/68 (84) 98 10/12/18 13:15 148 24 118/76 (90) 97 10/12/18 13:12 146 26 40 10/12/18 13:00 148 26 121/79 (93) 98 10/12/18 12:45 150 26 128/81 (97) 97 10/12/18 12:30 98.6 150 26 123/88 (100) 96 10/12/18 12:00 Mechanical Ventilator 10/12/18 12:00 153 29 145/88 (107) 96 10/12/18 12:00 40 10/12/18 11:55 152 10/12/18 11:30 142 22 108/68 (81) 98 10/12/18 11:00 143 22 113/77 (89) 99 10/12/18 10:57 142 24 40 10/12/18 10:30 142 22 104/78 (87) 99 10/12/18 10:00 142 33 106/75 (85) 98 10/12/18 09:36 139 28 40 10/12/18 09:30 144 23 109/68 (82) 99 10/12/18 09:15 141 22 108/76 (87) 99 10/12/18 09:00 144 24 99/72 (81) 98 10/12/18 08:30 143 22 106/69 (81) 98 10/12/18 08:00 Mechanical Ventilator 10/12/18 08:00 40 10/12/18 08:00 146 24 102/76 (85) 98 10/12/18 07:58 145 10/12/18 07:45 147 28 118/77 (91) 98 10/12/18 07:35 145 24 40 10/12/18 07:30 98.2 147 23 110/70 (83) 98 10/12/18 07:00 148 27 100/80 (87) 99 10/12/18 06:30 149 25 106/71 (83) 98 10/12/18 06:00 150 25 100/63 (75) 97 10/12/18 05:45 148 24 102/63 (76) 97 10/12/18 05:30 151 26 95/65 (75) 96 10/12/18 05:15 151 27 100/59 (73) 96 10/12/18 05:08 152 27 40 10/12/18 05:00 152 28 105/67 (80) 97 10/12/18 04:45 152 27 98/65 (76) 95 10/12/18 04:30 153 27 120/70 (87) 96 10/12/18 04:15 150 27 130/86 (101) 97 10/12/18 04:00 Mechanical Ventilator 10/12/18 04:00 151 10/12/18 04:00 99.3 151 29 118/84 (95) 97 10/12/18 04:00 40 10/12/18 03:45 147 26 125/83 (97) 98 10/12/18 03:30 145 24 125/75 (92) 98 10/12/18 03:18 146 25 40 10/12/18 03:15 143 26 125/79 (94) 98 10/12/18 03:00 146 24 119/73 (88) 97 10/12/18 02:45 148 27 128/77 (94) 98 10/12/18 02:30 147 28 124/72 (89) 97 10/12/18 02:15 146 24 110/67 (81) 97 10/12/18 02:00 145 25 110/67 (81) 97 10/12/18 01:45 145 25 124/76 (92) 97 10/12/18 01:30 147 28 124/77 (93) 97 10/12/18 01:19 145 27 40 10/12/18 01:00 144 28 119/75 (90) 97 10/12/18 01:00 125/74 10/12/18 00:45 99.4 146 27 124/72 (89) 97 10/12/18 00:30 147 26 127/79 (95) 96 10/12/18 00:15 145 25 132/83 (99) 97 10/12/18 00:08 40 10/12/18 00:00 140 10/12/18 00:00 135 24 116/69 (85) 100 10/12/18 00:00 Mechanical Ventilator 10/12/18 00:00 40 10/11/18 23:45 134 24 112/72 (85) 100 10/11/18 23:30 134 24 106/67 (80) 100 10/11/18 23:15 135 24 104/66 (79) 100 10/11/18 23:00 136 24 100/61 (74) 100 10/11/18 22:45 99.3 135 24 121/72 (88) 100 10/11/18 22:39 130 24 60 10/11/18 22:30 135 24 126/69 (88) 100 10/11/18 22:15 135 24 119/67 (84) 100 10/11/18 22:00 135 24 121/69 (86) 100 10/11/18 21:45 89 24 109/58 (75) 100 10/11/18 21:30 88 24 108/53 (71) 100 Intake and Output 10/11/18 10/12/18 19:00 07:00 Intake Total 1565.02 ml 1367.09 ml Output Total 225 ml 440 ml Balance 1340.02 ml 927.09 ml Intake IV Total 1565.02 ml 867.09 ml Blood Product 500 ml Output Urine Total 225 ml 440 ml # Bowel Movements 1 Laboratory Tests 10/11/18 22:55: Random Vancomycin Level 22.1 10/12/18 05:00: White Blood Count 13.2H, Red Blood Count 3.32L, Hemoglobin 10.3#L, Hematocrit 31.6#L, Mean Corpuscular Volume 95, Mean Corpuscular Hemoglobin 31.0, Mean Corpuscular Hemoglobin Concent 32.5, Red Cell Distribution Width 15.8H, Platelet Count 60L, Mean Platelet Volume 6.4L, Neutrophils (%) (Auto) , Lymphocytes (%) (Auto) , Monocytes (%) (Auto) , Eosinophils (%) (Auto) , Basophils (%) (Auto) , Differential Total Cells Counted 100, Neutrophils % ( Manual) 84H, Lymphocytes % (Manual) 9L, Monocytes % (Manual) 7, Eosinophils % ( Manual) 0, Basophils % (Manual) 0, Band Neutrophils 0, Platelet Estimate DecreasedL, Platelet Morphology Normal, Anisocytosis 1+, Prothrombin Time 16.1H , Prothromb Time International Ratio 1.6H, Activated Partial Thromboplast Time 35H, Sodium Level 137, Potassium Level 3.7, Chloride Level 107, Carbon Dioxide Level 15L, Anion Gap 15, Blood Urea Nitrogen 41H, Creatinine 2.9H, Estimat Glomerular Filtration Rate 16.7, Glucose Level 244H, Lactic Acid Level 2.70H, Uric Acid 7.8H, Calcium Level 6.9L, Phosphorus Level 4.7, Magnesium Level 1.5L, Total Bilirubin 2.6H, Direct Bilirubin 1.8H, Aspartate Amino Transf (AST/SGOT) 2167H, Alanine Aminotransferase (ALT/SGPT) 3270H, Alkaline Phosphatase 617H, Ammonia 72H, Troponin I 1.239H, C-Reactive Protein, Quantitative 20.8H, Pro-B- Type Natriuretic Peptide 2331H, Total Protein 4.7L, Albumin 1.6L, Globulin 3.1, Albumin/Globulin Ratio 0.5L, Vancomycin Level Trough 19.5H 10/12/18 12:30: Heparin-PF4 Antibody Screen [Pending] 10/12/18 13:05: Lactic Acid Level 2.00, Troponin I 0.818H, Digoxin Level < 0.2L 10/12/18 14:35: Arterial Blood pH 7.349L, Arterial Blood Partial Pressure CO2 26.5L, Arterial Blood Partial Pressure O2 97.1, Arterial Blood HCO3 14.3*L, Arterial Blood Oxygen Saturation 96.6, Arterial Blood Base Excess -9.9*L, Ortiz Test Positive Height (Feet): 5 Height (Inches): 1.00 Weight (Pounds): 250 Neck: normal alignment Respiratory/Chest: rhonchi - bilaterally Abdomen: soft Michael Kelley MD Oct 12, 2018 21:19
--- NOTE | 2018-10-12 23:00 | NUR ---
NURSE NOTES: at the bedside. Patient continues on fentanyl @ 20 mcg/hr. Arousable to verbal and tactile stimuli. RASS -2. Will continue to monitor
[2018-10-13] VITALS (36 sets, daily range): BP systolic 102–138; BP diastolic 50–80
--- NOTE | 2018-10-13 00:43 | General Progress Note ---
Assessment/Plan Assessment/Plan Assessment and Recs: # Thrombocytopenia - potential causes multifactorial, evaluate liver and viral etiologies to begin, also could be related to underlying medications patient has received. Hx of cirrhosis in the past noted on us --> Hep panel and HIV negative --> CT a/p to evaluate for cirrhosis and hsm does show cirrhosis --> Peripheral smear ordered to evaluate for blasts /schistocytes --> abx and other meds have been reviewed --> ok for ppx if plt >50k w/ either heparin or lovenox --> Transfuse if Plt < 20k and fever, or if Plt < 10k without fever --> Also HIT panel ordered had been on heparin upon admission, now off it # Anemia of iron deficiency as noted with low % sat and tibc elevated --> Anemia workup has been reviewed --> No evidence of hemolysis is noted, peripheral smear has been reviewed. --> Hgb goal >7. Transfuse prn. --> Iron IV X 5 days started --> Medications have been reviewed # Sepsis likely contributing to low plts --> on abx as needed # Shock, hypovolemic and distributive. --> per id and pulm/cc care # Multisystem organ failure. # Lactic acidosis. # JONNATHAN. # Abnormal LFTs, likely shock liver. # Abnormal troponin, likely demand ischemia. # Obesity. The timing of this note does not necessarily reflect the time of the patient was seen. Greatly appreciate consultation! Subjective Date patient seen: Oct 12, 2018 ROS Limited/Unobtainable: Yes Allergies: Coded Allergies: No Known Allergies (Unverified , 05/06/18) Subjective 10/12: Pt was seen in ICU on Vent and off pressors, developed atrial fib, wbc trending down to 13, plt trending down to 60 Objective Last 24 Hour Vital Signs Date Time Temp Pulse Resp B/P (MAP) Pulse Ox O2 Delivery O2 Flow Rate FiO2 10/13/18 00:00 Mechanical Ventilator 10/13/18 00:00 104 10/13/18 00:00 99.3 142 21 130/60 (83) 97 10/13/18 00:00 25 Mechanical Ventilator 40 10/12/18 23:30 105 21 121/57 (78) 98 10/12/18 23:11 104 25 40 10/12/18 23:00 112 23 92/73 (79) 99 10/12/18 23:00 26 Mechanical Ventilator 40 10/12/18 22:30 123 22 123/63 (83) 99 10/12/18 22:00 23 Mechanical Ventilator 40 10/12/18 22:00 102 21 125/60 (81) 99 10/12/18 21:30 127 24 113/56 (75) 99 10/12/18 21:19 108 23 40 10/12/18 21:00 25 Mechanical Ventilator 40 10/12/18 21:00 111 24 94/80 (85) 98 10/12/18 20:30 130 25 110/44 (66) 98 10/12/18 20:21 117/58 10/12/18 20:00 40 10/12/18 20:00 118 23 92/55 (67) 98 10/12/18 20:00 21 Mechanical Ventilator 40 10/12/18 20:00 120 10/12/18 20:00 Mechanical Ventilator 10/12/18 19:30 99.1 118 27 99/75 (83) 98 10/12/18 19:00 124 25 105/58 (74) 97 10/12/18 19:00 25 Mechanical Ventilator 40 10/12/18 18:47 124 23 40 10/12/18 18:00 110 23 102/44 (63) 98 10/12/18 18:00 23 Mechanical Ventilator 40 10/12/18 17:30 109 23 105/51 (69) 98 10/12/18 17:18 113 25 40 10/12/18 17:15 111 24 102/68 (79) 98 10/12/18 17:00 121 25 100/51 (67) 98 10/12/18 17:00 22 Mechanical Ventilator 40 10/12/18 16:45 112 25 95/50 (65) 98 10/12/18 16:30 117 25 98/48 (65) 98 10/12/18 16:15 117 25 96/55 (69) 98 10/12/18 16:00 40 10/12/18 16:00 25 Mechanical Ventilator 40 10/12/18 16:00 Mechanical Ventilator 10/12/18 16:00 98.3 104 25 110/50 (70) 98 10/12/18 15:51 104 10/12/18 15:47 26 Mechanical Ventilator 40 10/12/18 15:42 149 10/12/18 15:36 149 28 40 10/12/18 15:00 149 24 100/70 (80) 97 10/12/18 14:00 152 28 102/68 (79) 97 10/12/18 13:45 152 27 104/58 (73) 97 10/12/18 13:30 151 28 115/68 (84) 98 10/12/18 13:15 148 24 118/76 (90) 97 10/12/18 13:12 146 26 40 10/12/18 13:00 148 26 121/79 (93) 98 10/12/18 12:45 150 26 128/81 (97) 97 10/12/18 12:30 98.6 150 26 123/88 (100) 96 10/12/18 12:00 Mechanical Ventilator 10/12/18 12:00 153 29 145/88 (107) 96 10/12/18 12:00 40 10/12/18 11:55 152 10/12/18 11:30 142 22 108/68 (81) 98 10/12/18 11:00 143 22 113/77 (89) 99 10/12/18 10:57 142 24 40 10/12/18 10:30 142 22 104/78 (87) 99 10/12/18 10:00 142 33 106/75 (85) 98 10/12/18 09:36 139 28 40 10/12/18 09:30 144 23 109/68 (82) 99 10/12/18 09:15 141 22 108/76 (87) 99 10/12/18 09:00 144 24 99/72 (81) 98 10/12/18 08:30 143 22 106/69 (81) 98 10/12/18 08:00 Mechanical Ventilator 10/12/18 08:00 40 10/12/18 08:00 146 24 102/76 (85) 98 10/12/18 07:58 145 10/12/18 07:45 147 28 118/77 (91) 98 10/12/18 07:35 145 24 40 10/12/18 07:30 98.2 147 23 110/70 (83) 98 10/12/18 07:00 148 27 100/80 (87) 99 10/12/18 06:30 149 25 106/71 (83) 98 10/12/18 06:00 150 25 100/63 (75) 97 10/12/18 05:45 148 24 102/63 (76) 97 10/12/18 05:30 151 26 95/65 (75) 96 10/12/18 05:15 151 27 100/59 (73) 96 10/12/18 05:08 152 27 40 10/12/18 05:00 152 28 105/67 (80) 97 10/12/18 04:45 152 27 98/65 (76) 95 10/12/18 04:30 153 27 120/70 (87) 96 10/12/18 04:15 150 27 130/86 (101) 97 10/12/18 04:00 Mechanical Ventilator 10/12/18 04:00 151 10/12/18 04:00 99.3 151 29 118/84 (95) 97 10/12/18 04:00 40 10/12/18 03:45 147 26 125/83 (97) 98 10/12/18 03:30 145 24 125/75 (92) 98 10/12/18 03:18 146 25 40 10/12/18 03:15 143 26 125/79 (94) 98 10/12/18 03:00 146 24 119/73 (88) 97 10/12/18 02:45 148 27 128/77 (94) 98 10/12/18 02:30 147 28 124/72 (89) 97 10/12/18 02:15 146 24 110/67 (81) 97 10/12/18 02:00 145 25 110/67 (81) 97 10/12/18 01:45 145 25 124/76 (92) 97 10/12/18 01:30 147 28 124/77 (93) 97 10/12/18 01:19 145 27 40 10/12/18 01:00 144 28 119/75 (90) 97 10/12/18 01:00 125/74 10/12/18 00:45 99.4 146 27 124/72 (89) 97 Intake and Output 10/12/18 10/13/18 19:00 07:00 Intake Total 1304.62 ml 832.5 ml Output Total 730 ml 235 ml Balance 574.62 ml 597.5 ml Intake IV Total 1304.62 ml 832.5 ml Output Urine Total 730 ml 235 ml Laboratory Tests 10/12/18 05:00: White Blood Count 13.2H, Red Blood Count 3.32L, Hemoglobin 10.3#L, Hematocrit 31.6#L, Mean Corpuscular Volume 95, Mean Corpuscular Hemoglobin 31.0, Mean Corpuscular Hemoglobin Concent 32.5, Red Cell Distribution Width 15.8H, Platelet Count 60L, Mean Platelet Volume 6.4L, Neutrophils (%) (Auto) , Lymphocytes (%) (Auto) , Monocytes (%) (Auto) , Eosinophils (%) (Auto) , Basophils (%) (Auto) , Differential Total Cells Counted 100, Neutrophils % ( Manual) 84H, Lymphocytes % (Manual) 9L, Monocytes % (Manual) 7, Eosinophils % ( Manual) 0, Basophils % (Manual) 0, Band Neutrophils 0, Platelet Estimate DecreasedL, Platelet Morphology Normal, Anisocytosis 1+, Prothrombin Time 16.1H , Prothromb Time International Ratio 1.6H, Activated Partial Thromboplast Time 35H, Sodium Level 137, Potassium Level 3.7, Chloride Level 107, Carbon Dioxide Level 15L, Anion Gap 15, Blood Urea Nitrogen 41H, Creatinine 2.9H, Estimat Glomerular Filtration Rate 16.7, Glucose Level 244H, Lactic Acid Level 2.70H, Uric Acid 7.8H, Calcium Level 6.9L, Phosphorus Level 4.7, Magnesium Level 1.5L, Total Bilirubin 2.6H, Direct Bilirubin 1.8H, Aspartate Amino Transf (AST/SGOT) 2167H, Alanine Aminotransferase (ALT/SGPT) 3270H, Alkaline Phosphatase 617H, Ammonia 72H, Troponin I 1.239H, C-Reactive Protein, Quantitative 20.8H, Pro-B- Type Natriuretic Peptide 2331H, Total Protein 4.7L, Albumin 1.6L, Globulin 3.1, Albumin/Globulin Ratio 0.5L, Vancomycin Level Trough 19.5H 10/12/18 12:30: Heparin-PF4 Antibody Screen [Pending] 10/12/18 13:05: Lactic Acid Level 2.00, Troponin I 0.818H, Digoxin Level < 0.2L 10/12/18 14:35: Arterial Blood pH 7.349L, Arterial Blood Partial Pressure CO2 26.5L, Arterial Blood Partial Pressure O2 97.1, Arterial Blood HCO3 14.3*L, Arterial Blood Oxygen Saturation 96.6, Arterial Blood Base Excess -9.9*L, Ortiz Test Positive Height (Feet): 5 Height (Inches): 1.00 Weight (Pounds): 250 Objective PHYSICAL EXAMINATION: VITAL SIGNS: reviewed, saturating 100% on VENT GENERAL: She is an obese female, confused. HEENT: Normocephalic and atraumatic. Oropharynx is clear with dry mucous membranes. NECK: Supple without lymphadenopathy or JVP. CHEST: Clear. ++ Vent HEART: Regular. ABDOMEN: Benign. EXTREMITIES: No cyanosis, clubbing, or edema. There are some ecchymoses in bilateral lower extremities. Kurtis Villagomez MD Oct 13, 2018 00:43
--- NOTE | 2018-10-13 01:00 | NUR ---
NURSE NOTES: Pt turned and repositioned at this time. Denies any pain or discomfort. Will continue to monitor
--- NOTE | 2018-10-13 03:00 | NUR ---
NURSE NOTES: CHG bath given at this time. Pt Continues on Fentanyl 20mcg/min at this time to maintain ESTER -2. Denies any pain or discomfort at this time. Will continue to monitor
[2018-10-13] MEDS: NovoLOG Insulin Flexpen SUBQ SCH ×4 (05:56→20:38)
[2018-10-13] MEDS: Piperacillin/Tazobactam 3.375 GM in D5W 110 ML IVPB SCH ×2 (05:56→17:42)
--- NOTE | 2018-10-13 05:58 | NUR ---
NURSE NOTES: BS 62 at this time. 25ml D50 given at this time. Will recheck BS in 15 min
--- NOTE | 2018-10-13 06:30 | NUR ---
NURSE NOTES: BS 92 after D50 was given.
--- NOTE | 2018-10-13 07:00 | NUR ---
Received Patient on Vent settings of AC 20, VT 500, FIO2 40%, PEEP +5. Pt intubated with ETT 7.0 at 21cm lipline, secured by anchorfast. Patient is alert and awake and follows commands. Breath sounds clear/diminished bilaterally, sxn minimal amounts of thin, bloody secretions. Vent plugged into red outlet, ambubag at bedside. Pt resting comfortably, in no apparent distress at this time. Will continue to monitor patient.
--- NOTE | 2018-10-13 07:13 | NUR ---
HAND-OFF: Report given to Reji PIERCE using SBAR.
[2018-10-13 08:07] LABS: INR 1.4 (0.9-1.1)
--- NOTE | 2018-10-13 08:10 | NUR ---
NURSE NOTES: Report received from KARI Figueroa.Received pt asleep but easily arousal to verbal and tactile stimuli. Afebrile at this time and orally intubated with ETT 7/21 and AC 20, Vt 500 Fio2 40%, Peep 5. Seen by Dr Reynolds with order to start GT feeding Glucerna 1.2 goal of 60 and H2O flush Q4hr 100cc. Right Femoral TLC running NS @ 100 cc/hr, Fentanyl @ 20 mcg/hr. Quiroz cath draining yellowish urine with no apparent sediment. Mouth care done, turned and repositioned.Kept clean and dry, call light within easy reach. Kept on close monitoring.
--- NOTE | 2018-10-13 08:17 | General Progress Note ---
Assessment/Plan Problem List: (1) CAD (coronary artery disease) ICD Codes: I25.10 - Atherosclerotic heart disease of [place] coronary artery without angina pectoris SNOMED: 05584809 (2) RI (3) Thrombocytopenia ICD Codes: D69.6 - Thrombocytopenia, unspecified SNOMED: 382900486 (4) Respiratory failure ICD Codes: J96.90 - Respiratory failure, unspecified, unspecified whether with hypoxia or hypercapnia SNOMED: 299358854 (5) Dysphagia ICD Codes: R13.10 - Dysphagia, unspecified SNOMED: 28783263, 144162428 (6) Elevated CEA ICD Codes: R97.0 - Elevated carcinoembryonic antigen [CEA] SNOMED: 181135311 (7) Shock liver ICD Codes: K72.00 - Acute and subacute hepatic failure without coma SNOMED: 619194608 (8) Respiratory disorder with ventilator dependence ICD Codes: J98.9 - Respiratory disorder, unspecified; Z99.11 - Dependence on respirator [ventilator] status SNOMED: 35429217, 976099515 (9) Liver cirrhosis ICD Codes: K74.60 - Unspecified cirrhosis of liver SNOMED: 08015127 (10) Normocytic anemia ICD Codes: D64.9 - Anemia, unspecified SNOMED: 776382847 Assessment/Plan start NGTF KUB>> reviewed ppi BID monitor H&H fu LFTS work up for elevated CEA when more stable Subjective ROS Limited/Unobtainable: No Allergies: Coded Allergies: No Known Allergies (Unverified , 05/06/18) Objective Last 24 Hour Vital Signs Date Time Temp Pulse Resp B/P (MAP) Pulse Ox O2 Delivery O2 Flow Rate FiO2 10/13/18 07:00 92 19 114/61 (78) 98 10/13/18 07:00 95 20 40 10/13/18 06:30 92 19 113/57 (75) 98 10/13/18 06:00 81 20 108/53 (71) 97 10/13/18 06:00 Mechanical Ventilator 40 10/13/18 05:24 92 20 40 10/13/18 05:00 101 20 102/54 (70) 97 10/13/18 05:00 20 Mechanical Ventilator 40 10/13/18 04:30 92 20 110/50 (70) 97 10/13/18 04:00 Mechanical Ventilator 10/13/18 04:00 126 3/2/19 04:00 99.1 126 19 105/59 (74) 96 10/13/18 04:00 40 10/13/18 04:00 20 Mechanical Ventilator 40 10/13/18 03:30 115 22 126/69 (88) 95 10/13/18 03:00 25 Mechanical Ventilator 40 10/13/18 03:00 98 19 138/72 (94) 98 10/13/18 02:55 97 20 40 10/13/18 02:30 110 20 112/56 (74) 96 10/13/18 02:00 20 Mechanical Ventilator 40 10/13/18 02:00 123 23 123/63 (83) 95 10/13/18 01:30 142 21 124/61 (82) 96 10/13/18 01:00 21 Mechanical Ventilator 40 10/13/18 01:00 96 20 40 10/13/18 00:00 Mechanical Ventilator 10/13/18 00:00 104 10/13/18 00:00 99.3 142 21 130/60 (83) 97 10/13/18 00:00 25 Mechanical Ventilator 40 10/12/18 23:30 105 21 121/57 (78) 98 10/12/18 23:11 104 25 40 10/12/18 23:00 112 23 92/73 (79) 99 10/12/18 23:00 26 Mechanical Ventilator 40 10/12/18 22:30 123 22 123/63 (83) 99 10/12/18 22:00 23 Mechanical Ventilator 40 10/12/18 22:00 102 21 125/60 (81) 99 10/12/18 21:30 127 24 113/56 (75) 99 10/12/18 21:19 108 23 40 10/12/18 21:00 25 Mechanical Ventilator 40 10/12/18 21:00 111 24 94/80 (85) 98 10/12/18 20:30 130 25 110/44 (66) 98 10/12/18 20:21 117/58 10/12/18 20:00 40 10/12/18 20:00 118 23 92/55 (67) 98 10/12/18 20:00 21 Mechanical Ventilator 40 10/12/18 20:00 120 10/12/18 20:00 Mechanical Ventilator 10/12/18 19:30 99.1 118 27 99/75 (83) 98 10/12/18 19:00 124 25 105/58 (74) 97 10/12/18 19:00 25 Mechanical Ventilator 40 10/12/18 18:47 124 23 40 10/12/18 18:00 110 23 102/44 (63) 98 10/12/18 18:00 23 Mechanical Ventilator 40 10/12/18 17:30 109 23 105/51 (69) 98 10/12/18 17:18 113 25 40 10/12/18 17:15 111 24 102/68 (79) 98 10/12/18 17:00 121 25 100/51 (67) 98 10/12/18 17:00 22 Mechanical Ventilator 40 10/12/18 16:45 112 25 95/50 (65) 98 10/12/18 16:30 117 25 98/48 (65) 98 10/12/18 16:15 117 25 96/55 (69) 98 10/12/18 16:00 40 10/12/18 16:00 25 Mechanical Ventilator 40 10/12/18 16:00 Mechanical Ventilator 10/12/18 16:00 98.3 104 25 110/50 (70) 98 10/12/18 15:51 104 10/12/18 15:47 26 Mechanical Ventilator 40 10/12/18 15:42 149 10/12/18 15:36 149 28 40 10/12/18 15:00 149 24 100/70 (80) 97 10/12/18 14:00 152 28 102/68 (79) 97 10/12/18 13:45 152 27 104/58 (73) 97 10/12/18 13:30 151 28 115/68 (84) 98 10/12/18 13:15 148 24 118/76 (90) 97 10/12/18 13:12 146 26 40 10/12/18 13:00 148 26 121/79 (93) 98 10/12/18 12:45 150 26 128/81 (97) 97 10/12/18 12:30 98.6 150 26 123/88 (100) 96 10/12/18 12:00 Mechanical Ventilator 10/12/18 12:00 153 29 145/88 (107) 96 10/12/18 12:00 40 10/12/18 11:55 152 10/12/18 11:30 142 22 108/68 (81) 98 10/12/18 11:00 143 22 113/77 (89) 99 10/12/18 10:57 142 24 40 10/12/18 10:30 142 22 104/78 (87) 99 10/12/18 10:00 142 33 106/75 (85) 98 10/12/18 09:36 139 28 40 10/12/18 09:30 144 23 109/68 (82) 99 10/12/18 09:15 141 22 108/76 (87) 99 10/12/18 09:00 144 24 99/72 (81) 98 10/12/18 08:30 143 22 106/69 (81) 98 Intake and Output 10/12/18 10/13/18 18:59 06:59 Intake Total 1332.64 ml 1546.5 ml Output Total 705 ml 600 ml Balance 627.64 ml 946.5 ml Intake IV Total 1332.64 ml 1546.5 ml Output Urine Total 705 ml 600 ml Laboratory Tests 10/12/18 12:30: Heparin-PF4 Antibody Screen [Pending] 10/12/18 13:05: Lactic Acid Level 2.00, Troponin I 0.818H, Digoxin Level < 0.2L 10/12/18 14:35: Arterial Blood pH 7.349L, Arterial Blood Partial Pressure CO2 26.5L, Arterial Blood Partial Pressure O2 97.1, Arterial Blood HCO3 14.3*L, Arterial Blood Oxygen Saturation 96.6, Arterial Blood Base Excess -9.9*L, Ortiz Test Positive 10/13/18 05:44: Digoxin Level [Pending], Prothrombin Time 14.5H, Prothromb Time International Ratio 1.4H, Sodium Level [Pending], Potassium Level [Pending], Chloride Level [ Pending], Carbon Dioxide Level [Pending], Blood Urea Nitrogen [Pending], Creatinine [Pending], Estimat Glomerular Filtration Rate [Pending], Glucose Level [Pending], Uric Acid [Pending], Calcium Level [Pending], Phosphorus Level [Pending], Magnesium Level [Pending], Total Bilirubin [Pending], Aspartate Amino Transf (AST/SGOT) [Pending], Alanine Aminotransferase (ALT/SGPT) [Pending] , Alkaline Phosphatase [Pending], Ammonia [Pending], Pro-B-Type Natriuretic Peptide [Pending], Total Protein [Pending], Albumin [Pending], Globulin [Pending ] Height (Feet): 5 Height (Inches): 1.00 Weight (Pounds): 246 General Appearance: lethargic EENT: normal ENT inspection Neck: supple Cardiovascular: normal rate Respiratory/Chest: decreased breath sounds Abdomen: non tender, soft, hypoactive bowel sounds Edema: 2+ Leg (L), 2+ Leg (R) Samuel Reynolds MD Oct 13, 2018 08:17
[2018-10-13 08:33] LABS: PHOSPHORUS 4.2 MG/DL (2.5-4.9)
[2018-10-13 08:37] LABS: AMMONIA 106 umol/L (11-32)
[2018-10-13 08:58] LABS: ALANINE AMINOTRANSFERASE 2439 U/L (12-78); ALBUMIN 1.4 G/DL (3.4-5.0); ALBUMIN/GLOBULIN RATIO 0.4 (1.0-2.7); ALKALINE PHOSPHATASE 651 U/L (46-116); ANION GAP 16 mmol/L (5-15); ASPARTATE AMINO TRANSFERASE 816 U/L (15-37); BILIRUBIN,TOTAL 3.6 MG/DL (0.2-1.0); BLOOD UREA NITROGEN 43 mg/dL (7-18); CALCIUM 7.7 MG/DL (8.5-10.1); CARBON DIOXIDE 15 MMOL/L (21-32); CHLORIDE 111 MMOL/L (98-107); CREATININE 2.6 MG/DL (0.55-1.30); POTASSIUM 3.7 MMOL/L (3.5-5.1); SODIUM 141 MMOL/L (136-145)
[2018-10-13 09:05] LABS: BILIRUBIN,DIRECT 2.2 MG/DL (0.0-0.3)
[2018-10-13] MEDS: Pantoprazole Inj IVP SCH ×2 (09:13→20:38)
--- NOTE | 2018-10-13 10:11 | NUR ---
NURSE NOTES: Pt turned and repositioned.HOB elevated at 35 degree to prevent aspiration.GTF started and tolerate well.GT placement checked and intact. at bedside and update done.Will continue t0 monitor
[2018-10-13 11:20] LABS: HEMATOCRIT 33.4 % (37.0-47.0); HEMOGLOBIN 10.7 G/DL (12.0-16.0); MEAN CORPUSCULAR VOLUME 93 FL (80-99); PLATELET COUNT 61 K/UL (150-450); RED BLOOD COUNT 3.57 M/UL (4.20-5.40); RED CELL DISTRIBUTION WIDTH 16.9 % (11.6-14.8); WHITE BLOOD COUNT 10.8 K/UL (4.8-10.8)
[2018-10-13] MEDS: Morphine Sulfate 2mg/ml Inj(IV/IM USE ONLY) IVP PRN (12:03)
--- NOTE | 2018-10-13 12:10 | NUR ---
NURSE NOTES: Pt turned and repositioned.Kept clean and dry.HOB elevated to prevent aspiration.Will continue to monitor Addendum: 10/13/18 at 1324 by Abbi Garner RN Seen by Dr Cueto,will follow up with new order
--- NOTE | 2018-10-13 12:24 | Pulmonolgy Critical Care Note ---
Critical Care - Asmt/Plan Assessment/Plan: ASSESSMENT: The patient is a 58-year-old female with a history of obesity, diabetes, hypertension, hyperlipidemia, and sciatica with chronic low back pain , DDD/DJD, presenting after a mechanical fall with altered mental status and confusion with likely sepsis and multisystem organ failure. PROBLEM LIST: 1. VDRF 2. Sepsis 3. Shock, hypovolemic and distributive. 4. Multisystem organ failure. 5. Lactic acidosis. 6. Anion gap metabolic acidosis. 7. JONNATHAN. 7. Abnormal LFTs, likely shock liver. 8. Abnormal troponin, likely demand ischemia. 9. Elevated D-dimer and PASP concerning for an acute PE 10. Obesity. 11. Diabetes. 12. Hypertension. 13. Chronic low back pain and sciatica. 14. Anemia/FOBT + 15. Thrombocytopenia TREATMENT PLAN: 1. Continue ventilatory support, ABG now 2. PRN HHN's 3. Off pressors 4. Monitor volumes 5. Vanco/Zosyn per ID 6. Monitor thrombocytopenia 7. DVT prophylaxis: hep held 2/2 thrombocytopenia, ? HIT Ab panel, when able will need a VQ or CT-A 8. Prognosis poor 40 minutes of critical care time was spent. Critical Care - Objective Last 24 Hour Vital Signs Date Time Temp Pulse Resp B/P (MAP) Pulse Ox O2 Delivery O2 Flow Rate FiO2 10/13/18 11:00 87 19 118/58 (78) 99 10/13/18 10:58 98 21 40 10/13/18 10:00 136 19 116/68 (84) 99 10/13/18 09:29 133 26 40 10/13/18 09:13 137 10/13/18 09:00 137 19 131/75 (93) 98 10/13/18 08:00 Mechanical Ventilator 10/13/18 08:00 89 10/13/18 08:00 40 10/13/18 08:00 98.5 91 20 135/70 (91) 96 10/13/18 07:00 92 19 114/61 (78) 98 10/13/18 07:00 95 20 40 10/13/18 06:30 92 19 113/57 (75) 98 10/13/18 06:00 81 20 108/53 (71) 97 10/13/18 06:00 Mechanical Ventilator 40 10/13/18 05:24 92 20 40 10/13/18 05:00 101 20 102/54 (70) 97 10/13/18 05:00 20 Mechanical Ventilator 40 10/13/18 04:30 92 20 110/50 (70) 97 10/13/18 04:00 Mechanical Ventilator 10/13/18 04:00 126 10/13/18 04:00 99.1 126 19 105/59 (74) 96 10/13/18 04:00 40 10/13/18 04:00 20 Mechanical Ventilator 40 10/13/18 03:30 115 22 126/69 (88) 95 10/13/18 03:00 25 Mechanical Ventilator 40 10/13/18 03:00 98 19 138/72 (94) 98 10/13/18 02:55 97 20 40 10/13/18 02:30 110 20 112/56 (74) 96 10/13/18 02:00 20 Mechanical Ventilator 40 10/13/18 02:00 123 23 123/63 (83) 95 10/13/18 01:30 142 21 124/61 (82) 96 10/13/18 01:00 21 Mechanical Ventilator 40 10/13/18 01:00 96 20 40 10/13/18 00:00 Mechanical Ventilator 10/13/18 00:00 104 10/13/18 00:00 99.3 142 21 130/60 (83) 97 10/13/18 00:00 25 Mechanical Ventilator 40 10/12/18 23:30 105 21 121/57 (78) 98 10/12/18 23:11 104 25 40 10/12/18 23:00 112 23 92/73 (79) 99 10/12/18 23:00 26 Mechanical Ventilator 40 10/12/18 22:30 123 22 123/63 (83) 99 10/12/18 22:00 23 Mechanical Ventilator 40 10/12/18 22:00 102 21 125/60 (81) 99 10/12/18 21:30 127 24 113/56 (75) 99 10/12/18 21:19 108 23 40 10/12/18 21:00 25 Mechanical Ventilator 40 10/12/18 21:00 111 24 94/80 (85) 98 10/12/18 20:30 130 25 110/44 (66) 98 10/12/18 20:21 117/58 10/12/18 20:00 40 10/12/18 20:00 118 23 92/55 (67) 98 10/12/18 20:00 21 Mechanical Ventilator 40 10/12/18 20:00 120 10/12/18 20:00 Mechanical Ventilator 10/12/18 19:30 99.1 118 27 99/75 (83) 98 10/12/18 19:00 124 25 105/58 (74) 97 10/12/18 19:00 25 Mechanical Ventilator 40 10/12/18 18:47 124 23 40 10/12/18 18:00 110 23 102/44 (63) 98 10/12/18 18:00 23 Mechanical Ventilator 40 10/12/18 17:30 109 23 105/51 (69) 98 10/12/18 17:18 113 25 40 10/12/18 17:15 111 24 102/68 (79) 98 10/12/18 17:00 121 25 100/51 (67) 98 10/12/18 17:00 22 Mechanical Ventilator 40 10/12/18 16:45 112 25 95/50 (65) 98 10/12/18 16:30 117 25 98/48 (65) 98 10/12/18 16:15 117 25 96/55 (69) 98 10/12/18 16:00 40 10/12/18 16:00 25 Mechanical Ventilator 40 10/12/18 16:00 Mechanical Ventilator 10/12/18 16:00 98.3 104 25 110/50 (70) 98 10/12/18 15:51 104 10/12/18 15:47 26 Mechanical Ventilator 40 10/12/18 15:42 149 10/12/18 15:36 149 28 40 10/12/18 15:00 149 24 100/70 (80) 97 10/12/18 14:00 152 28 102/68 (79) 97 10/12/18 13:45 152 27 104/58 (73) 97 10/12/18 13:30 151 28 115/68 (84) 98 10/12/18 13:15 148 24 118/76 (90) 97 10/12/18 13:12 146 26 40 10/12/18 13:00 148 26 121/79 (93) 98 10/12/18 12:45 150 26 128/81 (97) 97 10/12/18 12:30 98.6 150 26 123/88 (100) 96 Status: awake Condition: improving Lungs: rales Heart: HR/BP unstable Abdomen: soft, non-tender Extremities: edema Micro: Microbiology Date/Time Source Procedure Growth Status 10/11/18 03:45 Sputum Induced Gram Stain - Final Complete 10/11/18 03:45 Sputum Culture - Final Nikki Albicans Complete Accucheck: 86 Critical Care - Subjective ROS Limited/Unobtainable: Yes Interval Events: Tachycardia noted to be afib. Seen by Dr. Chambers. Platelet low again. Alert on minimal vent settings. No longer on pressors. FI02: 40 Vent Support Breath Rate: 20 Vent Support Mode: AC Vent Tidal Volume: 500 Sputum Amount: Scant PEEP: 5.0 PIP: 29 Tube Feeding Amount: 20 I&O: Intake and Output 10/12/18 10/13/18 19:00 07:00 Intake Total 1304.62 ml 1444.5 ml Output Total 730 ml 620 ml Balance 574.62 ml 824.5 ml Intake IV Total 1304.62 ml 1444.5 ml Output Urine Total 730 ml 620 ml ET-Tube: 7.0 ET Position: 21 Francisco Clark MD Oct 13, 2018 12:24
--- NOTE | 2018-10-13 13:12 | NUR ---
NURSE NOTES: Seen by Dr Clark, made aware ammonia level with new order noted and carried out.Stat ABG.
--- NOTE | 2018-10-13 13:22 | Nephrology Progress Note ---
Assessment/Plan Problem List: (1) JONNATHAN (acute kidney injury) (2) Shock liver (3) Septic shock (4) Respiratory disorder with ventilator dependence Assessment - Acute Oliguric Renal Failure Cr down to 2.6 - Respiratory disorder with ventilator dependence - Septic shock , Leukocytosis - Pneumonia - Liver cirrhosis - Obese - Anemia . Plan ? transfuse 2 units to improve renal perfusion Hemodynamic support Pulmunary support Monitor renal parameters avoid nephrotoxics as best as possible per orders Subjective ROS Limited/Unobtainable: Yes Objective Objective Last 24 Hour Vital Signs Date Time Temp Pulse Resp B/P (MAP) Pulse Ox O2 Delivery O2 Flow Rate FiO2 10/13/18 13:01 104 30 40 10/13/18 13:00 99 19 125/68 (87) 98 10/13/18 12:33 98.0 10/13/18 12:00 98.0 100 20 123/62 (82) 99 10/13/18 12:00 Mechanical Ventilator 10/13/18 12:00 40 10/13/18 12:00 93 10/13/18 11:00 87 19 118/58 (78) 99 10/13/18 10:58 98 21 40 10/13/18 10:00 136 19 116/68 (84) 99 10/13/18 09:29 133 26 40 10/13/18 09:13 137 10/13/18 09:00 137 19 131/75 (93) 98 10/13/18 08:00 Mechanical Ventilator 10/13/18 08:00 89 10/13/18 08:00 40 10/13/18 08:00 98.5 91 20 135/70 (91) 96 10/13/18 07:00 92 19 114/61 (78) 98 10/13/18 07:00 95 20 40 10/13/18 06:30 92 19 113/57 (75) 98 10/13/18 06:00 81 20 108/53 (71) 97 10/13/18 06:00 Mechanical Ventilator 40 10/13/18 05:24 92 20 40 10/13/18 05:00 101 20 102/54 (70) 97 10/13/18 05:00 20 Mechanical Ventilator 40 10/13/18 04:30 92 20 110/50 (70) 97 10/13/18 04:00 Mechanical Ventilator 10/13/18 04:00 126 10/13/18 04:00 99.1 126 19 105/59 (74) 96 10/13/18 04:00 40 10/13/18 04:00 20 Mechanical Ventilator 40 10/13/18 03:30 115 22 126/69 (88) 95 10/13/18 03:00 25 Mechanical Ventilator 40 10/13/18 03:00 98 19 138/72 (94) 98 10/13/18 02:55 97 20 40 10/13/18 02:30 110 20 112/56 (74) 96 10/13/18 02:00 20 Mechanical Ventilator 40 10/13/18 02:00 123 23 123/63 (83) 95 10/13/18 01:30 142 21 124/61 (82) 96 10/13/18 01:00 21 Mechanical Ventilator 40 10/13/18 01:00 96 20 40 10/13/18 00:00 Mechanical Ventilator 10/13/18 00:00 104 10/13/18 00:00 99.3 142 21 130/60 (83) 97 10/13/18 00:00 25 Mechanical Ventilator 40 10/12/18 23:30 105 21 121/57 (78) 98 10/12/18 23:11 104 25 40 10/12/18 23:00 112 23 92/73 (79) 99 10/12/18 23:00 26 Mechanical Ventilator 40 10/12/18 22:30 123 22 123/63 (83) 99 10/12/18 22:00 23 Mechanical Ventilator 40 10/12/18 22:00 102 21 125/60 (81) 99 10/12/18 21:30 127 24 113/56 (75) 99 10/12/18 21:19 108 23 40 10/12/18 21:00 25 Mechanical Ventilator 40 10/12/18 21:00 111 24 94/80 (85) 98 10/12/18 20:30 130 25 110/44 (66) 98 10/12/18 20:21 117/58 10/12/18 20:00 40 10/12/18 20:00 118 23 92/55 (67) 98 10/12/18 20:00 21 Mechanical Ventilator 40 10/12/18 20:00 120 10/12/18 20:00 Mechanical Ventilator 10/12/18 19:30 99.1 118 27 99/75 (83) 98 10/12/18 19:00 124 25 105/58 (74) 97 10/12/18 19:00 25 Mechanical Ventilator 40 10/12/18 18:47 124 23 40 10/12/18 18:00 110 23 102/44 (63) 98 10/12/18 18:00 23 Mechanical Ventilator 40 10/12/18 17:30 109 23 105/51 (69) 98 10/12/18 17:18 113 25 40 10/12/18 17:15 111 24 102/68 (79) 98 10/12/18 17:00 121 25 100/51 (67) 98 10/12/18 17:00 22 Mechanical Ventilator 40 10/12/18 16:45 112 25 95/50 (65) 98 10/12/18 16:30 117 25 98/48 (65) 98 10/12/18 16:15 117 25 96/55 (69) 98 10/12/18 16:00 40 10/12/18 16:00 25 Mechanical Ventilator 40 10/12/18 16:00 Mechanical Ventilator 10/12/18 16:00 98.3 104 25 110/50 (70) 98 10/12/18 15:51 104 10/12/18 15:47 26 Mechanical Ventilator 40 10/12/18 15:42 149 10/12/18 15:36 149 28 40 10/12/18 15:00 149 24 100/70 (80) 97 10/12/18 14:00 152 28 102/68 (79) 97 10/12/18 13:45 152 27 104/58 (73) 97 10/12/18 13:30 151 28 115/68 (84) 98 Intake and Output 10/12/18 10/13/18 19:00 07:00 Intake Total 1304.62 ml 1444.5 ml Output Total 730 ml 620 ml Balance 574.62 ml 824.5 ml IV Total 1304.62 ml 1444.5 ml Output Urine Total 730 ml 620 ml Laboratory Tests 10/12/18 14:35: Arterial Blood pH 7.349L, Arterial Blood Partial Pressure CO2 26.5L, Arterial Blood Partial Pressure O2 97.1, Arterial Blood HCO3 14.3*L, Arterial Blood Oxygen Saturation 96.6, Arterial Blood Base Excess -9.9*L, Ortiz Test Positive 10/13/18 05:44: Prothrombin Time 14.5H, Prothromb Time International Ratio 1.4H, Sodium Level 141, Potassium Level 3.7, Chloride Level 111H, Carbon Dioxide Level 15L, Anion Gap 16H, Blood Urea Nitrogen 43H, Creatinine 2.6H, Estimat Glomerular Filtration Rate 18.9, Glucose Level 44#L, Uric Acid 7.4H, Calcium Level 7.7L, Phosphorus Level 4.2, Magnesium Level 1.6L, Total Bilirubin 3.6H, Direct Bilirubin 2.2H, Aspartate Amino Transf (AST/SGOT) 816H, Alanine Aminotransferase (ALT/SGPT) 2439H, Alkaline Phosphatase 651H, Ammonia 106H, Pro- B-Type Natriuretic Peptide 1870H, Total Protein 4.6L, Albumin 1.4L, Globulin 3.2 , Albumin/Globulin Ratio 0.4L, Digoxin Level 1.2 10/13/18 10:59: White Blood Count 10.8, Red Blood Count 3.57L, Hemoglobin 10.7L, Hematocrit 33.4L, Mean Corpuscular Volume 93, Mean Corpuscular Hemoglobin 30.0, Mean Corpuscular Hemoglobin Concent 32.1, Red Cell Distribution Width 16.9H, Platelet Count 61L, Mean Platelet Volume 7.7, Neutrophils (%) (Auto) , Lymphocytes (%) (Auto) , Monocytes (%) (Auto) , Eosinophils (%) (Auto) , Basophils (%) (Auto) , Differential Total Cells Counted 100, Neutrophils % ( Manual) 86H, Lymphocytes % (Manual) 7L, Monocytes % (Manual) 7, Eosinophils % ( Manual) 0, Basophils % (Manual) 0, Band Neutrophils 0, Platelet Estimate DecreasedL, Platelet Morphology Normal, Anisocytosis 1+ 10/13/18 12:35: Arterial Blood pH 7.327L, Arterial Blood Partial Pressure CO2 33.2L, Arterial Blood Partial Pressure O2 115.4H, Arterial Blood HCO3 17.0*L, Arterial Blood Oxygen Saturation 97.5, Arterial Blood Base Excess -8.0L, Ortiz Test Positive Height (Feet): 5 Height (Inches): 1.00 Weight (Pounds): 246 General Appearance: no apparent distress EENT: other - vented Cardiovascular: tachycardia Respiratory/Chest: decreased breath sounds Abdomen: distended Alex Cueto MD Oct 13, 2018 13:22
[2018-10-13] MEDS: VASOPRESSIN IV SCH (13:26)
[2018-10-13] MEDS: NS IV SCH (13:26)
--- NOTE | 2018-10-13 14:00 | NUR ---
NURSE NOTES: Patient kept clean and dry.Family at bedside,will continue to monitor Addendum: 10/13/18 at 1913 by Abbi Garner RN 1400 water flushed f 100cc not given for edema management
--- NOTE | 2018-10-13 14:25 | General Progress Note ---
Assessment/Plan Problem List: (1) Hypotension ICD Codes: I95.9 - Hypotension, unspecified SNOMED: 09575166 (2) Hyperglycemia ICD Codes: R73.9 - Hyperglycemia, unspecified SNOMED: 12322184 (3) Dyspnea ICD Codes: R06.00 - Dyspnea, unspecified SNOMED: 695185326 (4) Hypoxemia ICD Codes: R09.02 - Hypoxemia SNOMED: 227297237 (5) Contusion of left knee ICD Codes: S80.02XA - Contusion of left knee, initial encounter SNOMED: 71194836 (6) Sepsis ICD Codes: A41.9 - Sepsis, unspecified organism SNOMED: 54215728 (7) Septic shock ICD Codes: A41.9 - Sepsis, unspecified organism; R65.21 - Severe sepsis with septic shock SNOMED: 57231417 (8) Liver cirrhosis ICD Codes: K74.60 - Unspecified cirrhosis of liver SNOMED: 96154423 (9) Pneumonia ICD Codes: J18.9 - Pneumonia, unspecified organism SNOMED: 562221132 (10) Respiratory disorder with ventilator dependence ICD Codes: J98.9 - Respiratory disorder, unspecified; Z99.11 - Dependence on respirator [ventilator] status SNOMED: 63034485, 702692567 (11) Shock liver ICD Codes: K72.00 - Acute and subacute hepatic failure without coma SNOMED: 547825811 Status: progressing Assessment/Plan shock liver improving no fever off pressor abx per id check lytes cihrrosis sepsis obesity morbid respiratory failure pna Subjective ROS Limited/Unobtainable: Yes Allergies: Coded Allergies: No Known Allergies (Unverified , 05/06/18) Objective Last 24 Hour Vital Signs Date Time Temp Pulse Resp B/P (MAP) Pulse Ox O2 Delivery O2 Flow Rate FiO2 10/13/18 13:01 104 30 40 10/13/18 13:00 99 19 125/68 (87) 98 10/13/18 12:33 98.0 10/13/18 12:00 98.0 100 20 123/62 (82) 99 10/13/18 12:00 Mechanical Ventilator 10/13/18 12:00 40 10/13/18 12:00 93 10/13/18 11:00 87 19 118/58 (78) 99 10/13/18 10:58 98 21 40 10/13/18 10:00 136 19 116/68 (84) 99 10/13/18 09:29 133 26 40 10/13/18 09:13 137 10/13/18 09:00 137 19 131/75 (93) 98 10/13/18 08:00 Mechanical Ventilator 10/13/18 08:00 89 10/13/18 08:00 40 10/13/18 08:00 98.5 91 20 135/70 (91) 96 10/13/18 07:00 92 19 114/61 (78) 98 10/13/18 07:00 95 20 40 10/13/18 06:30 92 19 113/57 (75) 98 10/13/18 06:00 81 20 108/53 (71) 97 10/13/18 06:00 Mechanical Ventilator 40 10/13/18 05:24 92 20 40 10/13/18 05:00 101 20 102/54 (70) 97 10/13/18 05:00 20 Mechanical Ventilator 40 10/13/18 04:30 92 20 110/50 (70) 97 10/13/18 04:00 Mechanical Ventilator 10/13/18 04:00 126 10/13/18 04:00 99.1 126 19 105/59 (74) 96 10/13/18 04:00 40 10/13/18 04:00 20 Mechanical Ventilator 40 10/13/18 03:30 115 22 126/69 (88) 95 10/13/18 03:00 25 Mechanical Ventilator 40 10/13/18 03:00 98 19 138/72 (94) 98 10/13/18 02:55 97 20 40 10/13/18 02:30 110 20 112/56 (74) 96 10/13/18 02:00 20 Mechanical Ventilator 40 10/13/18 02:00 123 23 123/63 (83) 95 10/13/18 01:30 142 21 124/61 (82) 96 10/13/18 01:00 21 Mechanical Ventilator 40 10/13/18 01:00 96 20 40 10/13/18 00:00 Mechanical Ventilator 10/13/18 00:00 104 10/13/18 00:00 99.3 142 21 130/60 (83) 97 10/13/18 00:00 25 Mechanical Ventilator 40 10/12/18 23:30 105 21 121/57 (78) 98 10/12/18 23:11 104 25 40 10/12/18 23:00 112 23 92/73 (79) 99 10/12/18 23:00 26 Mechanical Ventilator 40 10/12/18 22:30 123 22 123/63 (83) 99 10/12/18 22:00 23 Mechanical Ventilator 40 10/12/18 22:00 102 21 125/60 (81) 99 10/12/18 21:30 127 24 113/56 (75) 99 10/12/18 21:19 108 23 40 10/12/18 21:00 25 Mechanical Ventilator 40 10/12/18 21:00 111 24 94/80 (85) 98 10/12/18 20:30 130 25 110/44 (66) 98 10/12/18 20:21 117/58 10/12/18 20:00 40 10/12/18 20:00 118 23 92/55 (67) 98 10/12/18 20:00 21 Mechanical Ventilator 40 10/12/18 20:00 120 10/12/18 20:00 Mechanical Ventilator 10/12/18 19:30 99.1 118 27 99/75 (83) 98 10/12/18 19:00 124 25 105/58 (74) 97 10/12/18 19:00 25 Mechanical Ventilator 40 10/12/18 18:47 124 23 40 10/12/18 18:00 110 23 102/44 (63) 98 10/12/18 18:00 23 Mechanical Ventilator 40 10/12/18 17:30 109 23 105/51 (69) 98 10/12/18 17:18 113 25 40 10/12/18 17:15 111 24 102/68 (79) 98 10/12/18 17:00 121 25 100/51 (67) 98 10/12/18 17:00 22 Mechanical Ventilator 40 10/12/18 16:45 112 25 95/50 (65) 98 10/12/18 16:30 117 25 98/48 (65) 98 10/12/18 16:15 117 25 96/55 (69) 98 10/12/18 16:00 40 10/12/18 16:00 25 Mechanical Ventilator 40 10/12/18 16:00 Mechanical Ventilator 10/12/18 16:00 98.3 104 25 110/50 (70) 98 10/12/18 15:51 104 10/12/18 15:47 26 Mechanical Ventilator 40 10/12/18 15:42 149 10/12/18 15:36 149 28 40 10/12/18 15:00 149 24 100/70 (80) 97 Intake and Output 10/12/18 10/13/18 19:00 07:00 Intake Total 1304.62 ml 1444.5 ml Output Total 730 ml 620 ml Balance 574.62 ml 824.5 ml IV Total 1304.62 ml 1444.5 ml Output Urine Total 730 ml 620 ml Laboratory Tests 10/12/18 14:35: Arterial Blood pH 7.349L, Arterial Blood Partial Pressure CO2 26.5L, Arterial Blood Partial Pressure O2 97.1, Arterial Blood HCO3 14.3*L, Arterial Blood Oxygen Saturation 96.6, Arterial Blood Base Excess -9.9*L, Ortiz Test Positive 10/13/18 05:44: Prothrombin Time 14.5H, Prothromb Time International Ratio 1.4H, Sodium Level 141, Potassium Level 3.7, Chloride Level 111H, Carbon Dioxide Level 15L, Anion Gap 16H, Blood Urea Nitrogen 43H, Creatinine 2.6H, Estimat Glomerular Filtration Rate 18.9, Glucose Level 44#L, Uric Acid 7.4H, Calcium Level 7.7L, Phosphorus Level 4.2, Magnesium Level 1.6L, Total Bilirubin 3.6H, Direct Bilirubin 2.2H, Aspartate Amino Transf (AST/SGOT) 816H, Alanine Aminotransferase (ALT/SGPT) 2439H, Alkaline Phosphatase 651H, Ammonia 106H, Pro- B-Type Natriuretic Peptide 1870H, Total Protein 4.6L, Albumin 1.4L, Globulin 3.2 , Albumin/Globulin Ratio 0.4L, Digoxin Level 1.2 10/13/18 10:59: White Blood Count 10.8, Red Blood Count 3.57L, Hemoglobin 10.7L, Hematocrit 33.4L, Mean Corpuscular Volume 93, Mean Corpuscular Hemoglobin 30.0, Mean Corpuscular Hemoglobin Concent 32.1, Red Cell Distribution Width 16.9H, Platelet Count 61L, Mean Platelet Volume 7.7, Neutrophils (%) (Auto) , Lymphocytes (%) (Auto) , Monocytes (%) (Auto) , Eosinophils (%) (Auto) , Basophils (%) (Auto) , Differential Total Cells Counted 100, Neutrophils % ( Manual) 86H, Lymphocytes % (Manual) 7L, Monocytes % (Manual) 7, Eosinophils % ( Manual) 0, Basophils % (Manual) 0, Band Neutrophils 0, Platelet Estimate DecreasedL, Platelet Morphology Normal, Anisocytosis 1+ 10/13/18 12:35: Arterial Blood pH 7.327L, Arterial Blood Partial Pressure CO2 33.2L, Arterial Blood Partial Pressure O2 115.4H, Arterial Blood HCO3 17.0*L, Arterial Blood Oxygen Saturation 97.5, Arterial Blood Base Excess -8.0L, Ortiz Test Positive Height (Feet): 5 Height (Inches): 1.00 Weight (Pounds): 246 Respiratory/Chest: lungs clear Abdomen: soft Michael Kelley MD Oct 13, 2018 14:25
[2018-10-13] MEDS: fentaNYL Citrate 2,500 MCG in NS 200 ML IV SCH (14:30)
[2018-10-13] MEDS ORDERED: Lactulose 20gm/30ml UDC ORAL SCH (15:30)
--- NOTE | 2018-10-13 15:31 | Cardiac Electrophysiology PN ---
Assessment/Plan Assessment/Plan 1. Atrial fib with RVR. Can't use Betablocker or CA janet for hypotension. Will Digitalize patient. Dig level 1.2. Will decrease to 0.125 daily and add amiodarone. 2. Septic shock, etiology is not clear. The patient is on broad spectrum IV antibiotic. Off both vasopressin, and Levophed. Got 2 units of blood transfusion 3. Troponin leak. The levels are flat and likely due to this patient's sepsis and septic shock. Her echocardiogram showed ejection fraction 60% to 65% and EKG showed no acute ischemic changes. 4. Respiratory failure on the Vent 5. Diabetes. 6. Renal failure. 7. Morbid obesity. [employer] Subjective Subjective In ICU on Vent and off pressors. Had Atrial fib with RVR up to 150s but now in SR Objective Last 24 Hour Vital Signs Date Time Temp Pulse Resp B/P (MAP) Pulse Ox O2 Delivery O2 Flow Rate FiO2 10/13/18 15:00 95 19 110/63 (79) 98 10/13/18 14:47 100 23 40 10/13/18 14:30 20 40 10/13/18 14:00 Mechanical Ventilator 10/13/18 14:00 97 19 117/65 (82) 98 10/13/18 13:01 104 30 40 10/13/18 13:00 Mechanical Ventilator 10/13/18 13:00 99 19 125/68 (87) 98 10/13/18 12:33 98.0 10/13/18 12:00 98.0 100 20 123/62 (82) 99 10/13/18 12:00 Mechanical Ventilator 10/13/18 12:00 Mechanical Ventilator 10/13/18 12:00 40 10/13/18 12:00 93 10/13/18 11:00 87 19 118/58 (78) 99 10/13/18 11:00 Mechanical Ventilator 10/13/18 10:58 98 21 40 10/13/18 10:00 Mechanical Ventilator 10/13/18 10:00 136 19 116/68 (84) 99 10/13/18 09:29 133 26 40 10/13/18 09:13 137 10/13/18 09:00 Mechanical Ventilator 10/13/18 09:00 137 19 131/75 (93) 98 10/13/18 08:00 Mechanical Ventilator 10/13/18 08:00 89 10/13/18 08:00 40 10/13/18 08:00 Mechanical Ventilator 10/13/18 08:00 98.5 91 20 135/70 (91) 96 10/13/18 07:00 92 19 114/61 (78) 98 10/13/18 07:00 95 20 40 10/13/18 07:00 Mechanical Ventilator 10/13/18 06:30 92 19 113/57 (75) 98 10/13/18 06:00 81 20 108/53 (71) 97 10/13/18 06:00 Mechanical Ventilator 40 10/13/18 05:24 92 20 40 10/13/18 05:00 101 20 102/54 (70) 97 10/13/18 05:00 20 Mechanical Ventilator 40 10/13/18 04:30 92 20 110/50 (70) 97 10/13/18 04:00 Mechanical Ventilator 10/13/18 04:00 126 10/13/18 04:00 99.1 126 19 105/59 (74) 96 10/13/18 04:00 40 10/13/18 04:00 20 Mechanical Ventilator 40 10/13/18 03:30 115 22 126/69 (88) 95 10/13/18 03:00 25 Mechanical Ventilator 40 10/13/18 03:00 98 19 138/72 (94) 98 10/13/18 02:55 97 20 40 10/13/18 02:30 110 20 112/56 (74) 96 10/13/18 02:00 20 Mechanical Ventilator 40 10/13/18 02:00 123 23 123/63 (83) 95 10/13/18 01:30 142 21 124/61 (82) 96 10/13/18 01:00 21 Mechanical Ventilator 40 10/13/18 01:00 96 20 40 10/13/18 00:00 Mechanical Ventilator 10/13/18 00:00 104 10/13/18 00:00 99.3 142 21 130/60 (83) 97 10/13/18 00:00 25 Mechanical Ventilator 40 10/12/18 23:30 105 21 121/57 (78) 98 10/12/18 23:11 104 25 40 10/12/18 23:00 112 23 92/73 (79) 99 10/12/18 23:00 26 Mechanical Ventilator 40 10/12/18 22:30 123 22 123/63 (83) 99 10/12/18 22:00 23 Mechanical Ventilator 40 10/12/18 22:00 102 21 125/60 (81) 99 10/12/18 21:30 127 24 113/56 (75) 99 10/12/18 21:19 108 23 40 10/12/18 21:00 25 Mechanical Ventilator 40 10/12/18 21:00 111 24 94/80 (85) 98 10/12/18 20:30 130 25 110/44 (66) 98 10/12/18 20:21 117/58 10/12/18 20:00 40 10/12/18 20:00 118 23 92/55 (67) 98 10/12/18 20:00 21 Mechanical Ventilator 40 10/12/18 20:00 120 10/12/18 20:00 Mechanical Ventilator 10/12/18 19:30 99.1 118 27 99/75 (83) 98 10/12/18 19:00 124 25 105/58 (74) 97 10/12/18 19:00 25 Mechanical Ventilator 40 10/12/18 18:47 124 23 40 10/12/18 18:00 110 23 102/44 (63) 98 10/12/18 18:00 23 Mechanical Ventilator 40 10/12/18 17:30 109 23 105/51 (69) 98 10/12/18 17:18 113 25 40 10/12/18 17:15 111 24 102/68 (79) 98 10/12/18 17:00 121 25 100/51 (67) 98 10/12/18 17:00 22 Mechanical Ventilator 40 10/12/18 16:45 112 25 95/50 (65) 98 10/12/18 16:30 117 25 98/48 (65) 98 10/12/18 16:15 117 25 96/55 (69) 98 10/12/18 16:00 40 10/12/18 16:00 25 Mechanical Ventilator 40 10/12/18 16:00 Mechanical Ventilator 10/12/18 16:00 98.3 104 25 110/50 (70) 98 10/12/18 15:51 104 10/12/18 15:47 26 Mechanical Ventilator 40 10/12/18 15:42 149 10/12/18 15:36 149 28 40 Intake and Output 10/12/18 10/13/18 19:00 07:00 Intake Total 1304.62 ml 1574.0 ml Output Total 730 ml 620 ml Balance 574.62 ml 954.0 ml IV Total 1304.62 ml 1574.0 ml Output Urine Total 730 ml 620 ml Laboratory Tests Test 10/13/18 05:44 10/13/18 05:45 10/13/18 10:59 10/13/18 12:35 Prothrombin Time 14.5 SEC (9.30-11.50) H Prothromb Time International Ratio 1.4 (0.9-1.1) H Sodium Level 141 MMOL/L (136-145) Potassium Level 3.7 MMOL/L (3.5-5.1) Chloride Level 111 MMOL/L (98-107) H Carbon Dioxide Level 15 MMOL/L (21-32) L Anion Gap 16 mmol/L (5-15) H Blood Urea Nitrogen 43 mg/dL (7-18) H Creatinine 2.6 MG/DL (0.55-1.30) H Estimat Glomerular Filtration Rate 18.9 mL/min (>60) Glucose Level 44 MG/DL (74-106) #L Uric Acid 7.4 MG/DL (2.6-7.2) H Calcium Level 7.7 MG/DL (8.5-10.1) L Phosphorus Level 4.2 MG/DL (2.5-4.9) Magnesium Level 1.6 MG/DL (1.8-2.4) L Total Bilirubin 3.6 MG/DL (0.2-1.0) H Direct Bilirubin 2.2 MG/DL (0.0-0.3) H Aspartate Amino Transf (AST/SGOT) 816 U/L (15-37) H Alanine Aminotransferase (ALT/SGPT) 2439 U/L (12-78) H Alkaline Phosphatase 651 U/L (46-116) H Ammonia 106 umol/L (11-32) H Pro-B-Type Natriuretic Peptide 1870 pg/mL (0-125) H Total Protein 4.6 G/DL (6.4-8.2) L Albumin 1.4 G/DL (3.4-5.0) L Globulin 3.2 g/dL Albumin/Globulin Ratio 0.4 (1.0-2.7) L Digoxin Level 1.2 NG/ML (0.9-2.0) C-Reactive Protein, Quantitative 16.3 mg/dL (0.00-0.90) H White Blood Count 10.8 K/UL (4.8-10.8) Red Blood Count 3.57 M/UL (4.20-5.40) L Hemoglobin 10.7 G/DL (12.0-16.0) L Hematocrit 33.4 % (37.0-47.0) L Mean Corpuscular Volume 93 FL (80-99) Mean Corpuscular Hemoglobin 30.0 PG (27.0-31.0) Mean Corpuscular Hemoglobin Concent 32.1 G/DL (32.0-36.0) Red Cell Distribution Width 16.9 % (11.6-14.8) H Platelet Count 61 K/UL (150-450) L Mean Platelet Volume 7.7 FL (6.5-10.1) Neutrophils (%) (Auto) % (45.0-75.0) Lymphocytes (%) (Auto) % (20.0-45.0) Monocytes (%) (Auto) % (1.0-10.0) Eosinophils (%) (Auto) % (0.0-3.0) Basophils (%) (Auto) % (0.0-2.0) Differential Total Cells Counted 100 Neutrophils % (Manual) 86 % (45-75) H Lymphocytes % (Manual) 7 % (20-45) L Monocytes % (Manual) 7 % (1-10) Eosinophils % (Manual) 0 % (0-3) Basophils % (Manual) 0 % (0-2) Band Neutrophils 0 % (0-8) Platelet Estimate Decreased L Platelet Morphology Normal Anisocytosis 1+ Arterial Blood pH 7.327 (7.350-7.450) Arterial Blood Partial Pressure CO2 33.2 mmHg (35.0-45.0) L Arterial Blood Partial Pressure O2 115.4 mmHg (75.0-100.0) H Arterial Blood HCO3 17.0 mmol/L (22.0-26.0) *L Arterial Blood Oxygen Saturation 97.5 % (95-100) Arterial Blood Base Excess -8.0 (-2-2) L Ortiz Test Positive Microbiology Date/Time Source Procedure Growth Status 10/11/18 03:45 Sputum Induced Gram Stain - Final Complete 10/11/18 03:45 Sputum Culture - Final Nikki Albicans Complete Objective HEAD AND NECK: No JVD. She is orally intubated with OG tube in. LUNGS: Coarse rhonchi. CARDIOVASCULAR: Regular S1, S2 with no gallop or murmur. ABDOMEN: Obese. EXTREMITIES: No pitting edema. Sean Montanez MD Oct 13, 2018 15:31
--- NOTE | 2018-10-13 16:05 | NUR ---
NURSE NOTES: Patient turned and repositioned.ADls done,kpet clean and dry.Mouth care done.HOB elevated to prevent aspiration.Tolerated well feeding Addendum: 10/13/18 at 1855 by Abbi Garner RN Lactulose given as ordered with no BM at this time
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
[2018-10-13] MEDS: Lactulose 20gm/30ml UDC ORAL SCH (17:42)
--- NOTE | 2018-10-13 18:05 | NUR ---
NURSE NOTES: Pt turned and repositioned.Kept clean and dry.ADLs done,family at bedside. Second dose Lactulose given with still no BM at this time.Will continue to monitor
--- NOTE | 2018-10-13 19:10 | NUR ---
HAND-OFF: Report given to KARI Figueroa.
--- NOTE | 2018-10-13 19:15 | NUR ---
NURSE NOTES: Received pt in bed with eyes closed, arousable to verbal and tactile stimuli. Orally intubated on AC 20, Vt 500. P 5 fio2 40%OGT Feeding Glucerna 1.2 @ 30cc/hr. Goal is 60 cc. 30 cc residual noted at this time. Right Femoral TLC running NS @ 100 cc/hr, Fentanyl @ 20 mcg/hr. Quiroz cath draining by gravity. Pt denies any pain or discomfort at this time. Bed in lowest position, side rails upx3. No signs of distress noted. Will continue to monitor.
--- NOTE | 2018-10-13 19:56 | NUR ---
RESPIRATORY NOTE: Received pt. on 840 vent. Vent settings are: A/C rate of 20, Vt 500, FI02 40%, PEEP +5. No respiratory distress noted, pt Sp02 @ 99%. Ambu bag @ BS. Vent plugged on red outlet. Will continue to monitor pt.
[2018-10-13] MEDS: Iron Sucrose 100 MG in NS 55 ML IV SCH (20:38)
[2018-10-13] MEDS: Dyna-Hex 2% Top Sol 2oz TOPIC SCH (20:38)
[2018-10-13] MEDS: Amiodarone 200mg tab NG SCH (20:38)
[2018-10-13] MEDS: Norepinephrine Bitartrate 16 MG in Sodium Chloride 484 ML IV SCH (20:39)
--- NOTE | 2018-10-13 21:00 | NUR ---
NURSE NOTES: Patient does not want to be turned at this time. Continues on fentanyl gtt @ 20 mcg/min. Tolerating feeding. at the bedside. BS 102 No coverage given. Will continue to monitor
--- NOTE | 2018-10-13 21:30 | NUR ---
NURSE NOTES: patient HR noted to increase to 130's when family at the bedside. asked patient if she has any pain or discomfort patient is able to answer with gestures no. Will continue to monitor.
[2018-10-13] MEDS: fentaNYL Citrate 1000 MCG in NS 100ml IV SCH (23:07)
--- NOTE | 2018-10-13 23:20 | NUR ---
NURSE NOTES: 150cc of fentanyl wasted with Charge Nurse Stuart at this time
[2018-10-14] VITALS (37 sets, daily range): BP systolic 95–163; BP diastolic 52–79
--- NOTE | 2018-10-14 01:30 | NUR ---
NURSE NOTES: Feeding off at this time. Noted to have residual of 200cc at this time. patient denies any pain or discomfort at this time. Will continue to monitor
--- NOTE | 2018-10-14 03:30 | NUR ---
NURSE NOTES: CHG bath given at this time. Patient able to assist when turning. Continues on Fentanyl gtt @ 20 mcg/min. Feeding remain off at this time for residual of 100cc. Patient denies any pain or discomfort at this time. No signs of distress noted. Will continue to monitor.
--- NOTE | 2018-10-14 05:30 | NUR ---
NURSE NOTES: BS 123 at this time. Held insulin due to patient being NPO at this time for high residuals. Patient denies any pain or discomfort when asked. No signs of distress noted. Will continue to monitor.
[2018-10-14] MEDS: NovoLOG Insulin Flexpen SUBQ SCH ×4 (05:42→21:49)
[2018-10-14] MEDS: Piperacillin/Tazobactam 3.375 GM in D5W 110 ML IVPB SCH ×2 (05:42→17:18)
[2018-10-14 06:36] LABS: HEMATOCRIT 35.3 % (37.0-47.0); HEMOGLOBIN 11.5 G/DL (12.0-16.0); MEAN CORPUSCULAR VOLUME 94 FL (80-99); PLATELET COUNT 64 K/UL (150-450); RED BLOOD COUNT 3.74 M/UL (4.20-5.40); RED CELL DISTRIBUTION WIDTH 16.8 % (11.6-14.8); WHITE BLOOD COUNT 11.3 K/UL (4.8-10.8)
[2018-10-14 06:59] LABS: ALANINE AMINOTRANSFERASE 1734 U/L (12-78); ALBUMIN 1.4 G/DL (3.4-5.0); ALBUMIN/GLOBULIN RATIO 0.4 (1.0-2.7); ALKALINE PHOSPHATASE 684 U/L (46-116); ANION GAP 12 mmol/L (5-15); ASPARTATE AMINO TRANSFERASE 392 U/L (15-37); BILIRUBIN,TOTAL 3.6 MG/DL (0.2-1.0); BLOOD UREA NITROGEN 46 mg/dL (7-18); CARBON DIOXIDE 16 MMOL/L (21-32); CHLORIDE 115 MMOL/L (98-107); CREATININE 2.6 MG/DL (0.55-1.30); POTASSIUM 4.1 MMOL/L (3.5-5.1); SODIUM 143 MMOL/L (136-145)
--- NOTE | 2018-10-14 07:01 | NUR ---
RESPIRATORY NOTE: ESPIRATORY NOTE: Received pt on ETT 7.0 @ 21cm lips line, secured by anchor fast, with current vent settings: AC 20-500ml-40% FiO2- peep of 5, saturates at 100%. Pt is awake and alert. Nas clear diminished breath sounds heard upon auscultation, orally sxn moderated amount of thin frothy white secretions and endotracheal sxn small amount of thin brown,red specks secretions without incidents. No SOB or resp distress notes. Alarms are set and audible, vent is plugged into the red outlet, ambu bag is at bed side. Vent circuits and sxn tube are secured and out of the way. Will continue to monitor.
--- NOTE | 2018-10-14 07:05 | NUR ---
HAND-OFF: Report given to Reji PIERCE using SBAR. VS Stable at this time. RN Aware that patient has moments of tachycardia with HR in the 140's. No signs of distress.
[2018-10-14 07:16] LABS: BILIRUBIN,DIRECT 2.6 MG/DL (0.0-0.3)
[2018-10-14 07:56] LABS: PHOSPHORUS 4.1 MG/DL (2.5-4.9)
--- NOTE | 2018-10-14 08:00 | NUR ---
NURSE NOTES: Report received from KARI Figueroa.Awake and afebrile at this time with no apparent acute distress. Orally intubated with ETT 03/03 and AC 20, Vt 500 Fio2 40%, Peep 5. Fentanyl held for weaning protocol. Right femoral line running NS at 100cc/hr.Quiroz cath draining yellowish urine with no apparent sediment. Mouth care done, turned and repositioned.Kept clean and dry, call light within easy reach. Kept on close monitoring.
[2018-10-14] MEDS ORDERED: Digoxin 0.125mg tab NG SCH (09:00)
[2018-10-14] MEDS: Lactulose 20gm/30ml UDC ORAL SCH ×2 (09:07→12:30)
[2018-10-14] MEDS: Amiodarone 200mg tab NG SCH ×2 (09:07→20:37)
[2018-10-14] MEDS: Pantoprazole Inj IVP SCH ×2 (09:07→20:37)
[2018-10-14] MEDS: Morphine Sulfate 2mg/ml Inj(IV/IM USE ONLY) IVP PRN (09:30)
--- NOTE | 2018-10-14 09:30 | NUR ---
RESPIRATORY NOTE: Placed pt on CPAP PS 10 per weaning protocol, pt is tolerating well, awake and alert, RSBI 58, NIF -99chE1O, VC 4.8ml/kg, spongt. RR 27bpm, spongt.Vt 4.2ml/kg, minuted Ventilation 11L/M, pt is tachycardia HR 139-140bpm, high BP163/79. Pt didn't meet the weaning criteria. Placed back on AC mode, KARI Go made aware. Will continue to monitor.
--- NOTE | 2018-10-14 09:48 | Infectious Diseases Prog Note ---
Assessment/Plan Assessment/Plan A: 1. Septic Shock improving.culture are negative so far 2. May have pneumonia, especially aspiration pneumonia. 3. Multiorgan failure including acute renal failure and hypercapnic respiratory failure. 4. Diabetes mellitus. 5. Obesity. 6. Lactic acidosis. 7. Anemia.s/p transfusion 8. Cirrhosis. 9. Enteritis, ileus RECOMMENDATION: continue with Zosyn Discontinue vancomycin Subjective ROS Limited/Unobtainable: Yes Cardiovascular: Reports: other - off of pressor Genitourinary: Reports: other - decreased urine output Musculoskeletal: Reports: no symptoms Allergies: Coded Allergies: No Known Allergies (Unverified , 05/06/18) Objective Vital Signs Last 24 Hour Vital Signs Date Time Temp Pulse Resp B/P (MAP) Pulse Ox O2 Delivery O2 Flow Rate FiO2 10/14/18 09:20 40 10/14/18 09:07 99 10/14/18 09:00 139 21 163/79 (107) 99 10/14/18 09:00 40 10/14/18 08:00 Mechanical Ventilator 10/14/18 08:00 40 10/14/18 08:00 97.8 97 20 120/63 (82) 97 10/14/18 07:01 99 23 40 10/14/18 07:00 20 Mechanical Ventilator 40 10/14/18 07:00 141 20 113/72 (86) 98 10/14/18 06:30 99 20 114/70 (85) 99 10/14/18 06:00 20 Mechanical Ventilator 40 10/14/18 06:00 136 22 116/70 (85) 98 10/14/18 05:30 144 21 103/75 (84) 97 10/14/18 05:00 106 20 118/68 (85) 98 10/14/18 05:00 20 Mechanical Ventilator 40 10/14/18 04:55 102 23 40 10/14/18 04:45 106 21 103/61 (75) 98 10/14/18 04:30 106 21 125/75 (92) 98 10/14/18 04:00 109 10/14/18 04:00 Mechanical Ventilator 10/14/18 04:00 40 10/14/18 04:00 Mechanical Ventilator 40 10/14/18 04:00 98.3 107 20 109/79 (89) 97 10/14/18 03:31 98 22 40 10/14/18 03:30 110 26 126/69 (88) 10/14/18 03:00 20 Mechanical Ventilator 40 10/14/18 03:00 107 20 128/65 (86) 95 10/14/18 02:30 109 20 127/64 (85) 96 10/14/18 02:00 103 20 95/69 (78) 96 10/14/18 02:00 21 Mechanical Ventilator 40 10/14/18 01:38 20 Mechanical Ventilator 40 10/14/18 01:30 103 20 115/69 (84) 96 10/14/18 01:27 99 21 40 10/14/18 01:00 0 Mechanical Ventilator 40 10/14/18 01:00 104 20 125/71 (89) 97 10/14/18 00:30 100 21 114/67 (83) 97 10/14/18 00:15 102 20 114/69 (84) 97 10/14/18 00:00 98.1 99 20 118/66 (83) 97 10/14/18 00:00 98 10/14/18 00:00 20 Mechanical Ventilator 40 10/14/18 00:00 Mechanical Ventilator 10/14/18 00:00 40 10/13/18 23:30 97 20 135/72 (93) 97 10/13/18 23:28 95 20 40 10/13/18 23:15 98 20 125/67 (86) 98 10/13/18 23:07 20 40 10/13/18 23:00 97 20 119/67 (84) 98 10/13/18 22:45 97 20 125/70 (88) 98 10/13/18 22:30 137 19 123/70 (87) 98 10/13/18 22:15 137 20 119/80 (93) 98 10/13/18 22:00 136 22 109/73 (85) 98 10/13/18 21:30 136 21 110/70 (83) 97 10/13/18 21:06 98 20 40 10/13/18 21:00 102 21 111/63 (79) 98 10/13/18 20:39 116/68 10/13/18 20:30 98 20 116/68 (84) 98 10/13/18 20:00 96 10/13/18 20:00 40 10/13/18 20:00 20 Mechanical Ventilator 40 10/13/18 20:00 Mechanical Ventilator 10/13/18 20:00 99 19 114/61 (78) 98 10/13/18 19:55 99 20 40 10/13/18 19:30 98.3 98 21 118/61 (80) 98 10/13/18 19:00 98 21 110/64 (79) 98 10/13/18 19:00 20 Mechanical Ventilator 40 10/13/18 18:00 Mechanical Ventilator 10/13/18 18:00 98 20 129/65 (86) 98 10/13/18 17:06 94 20 40 10/13/18 17:00 98 20 122/63 (82) 99 10/13/18 17:00 Mechanical Ventilator 10/13/18 16:00 97.8 98 20 105/62 (76) 99 10/13/18 16:00 Mechanical Ventilator 10/13/18 16:00 93 10/13/18 16:00 40 10/13/18 16:00 Mechanical Ventilator 10/13/18 15:00 95 19 110/63 (79) 98 10/13/18 15:00 Mechanical Ventilator 10/13/18 14:47 100 23 40 10/13/18 14:30 20 40 10/13/18 14:00 Mechanical Ventilator 10/13/18 14:00 97 19 117/65 (82) 98 10/13/18 13:01 104 30 40 10/13/18 13:00 Mechanical Ventilator 10/13/18 13:00 99 19 125/68 (87) 98 10/13/18 12:33 98.0 10/13/18 12:00 98.0 100 20 123/62 (82) 99 10/13/18 12:00 Mechanical Ventilator 10/13/18 12:00 Mechanical Ventilator 10/13/18 12:00 40 10/13/18 12:00 93 10/13/18 11:00 87 19 118/58 (78) 99 10/13/18 11:00 Mechanical Ventilator 10/13/18 10:58 98 21 40 10/13/18 10:00 Mechanical Ventilator 10/13/18 10:00 136 19 116/68 (84) 99 Height (Feet): 5 Height (Inches): 1.00 Weight (Pounds): 247 HEENT: mucous membranes moist Respiratory/Chest: decreased breath sounds, other - on ventilatoe Cardiovascular: tachycardia, other - R femoral line Abdomen: soft, non tender, other - orogastric tube feeding Extremities: other - generalized edema Neurologic/Psychiatric: alert, responsive Laboratory Tests Test 10/13/18 10:59 10/13/18 12:35 10/14/18 05:29 White Blood Count 10.8 K/UL (4.8-10.8) 11.3 K/UL (4.8-10.8) H Red Blood Count 3.57 M/UL (4.20-5.40) L 3.74 M/UL (4.20-5.40) L Hemoglobin 10.7 G/DL (12.0-16.0) L 11.5 G/DL (12.0-16.0) L Hematocrit 33.4 % (37.0-47.0) L 35.3 % (37.0-47.0) L Mean Corpuscular Volume 93 FL (80-99) 94 FL (80-99) Mean Corpuscular Hemoglobin 30.0 PG (27.0-31.0) 30.8 PG (27.0-31.0) Mean Corpuscular Hemoglobin Concent 32.1 G/DL (32.0-36.0) 32.6 G/DL (32.0-36.0) Red Cell Distribution Width 16.9 % (11.6-14.8) H 16.8 % (11.6-14.8) H Platelet Count 61 K/UL (150-450) L 64 K/UL (150-450) L Mean Platelet Volume 7.7 FL (6.5-10.1) 6.8 FL (6.5-10.1) Neutrophils (%) (Auto) % (45.0-75.0) % (45.0-75.0) Lymphocytes (%) (Auto) % (20.0-45.0) % (20.0-45.0) Monocytes (%) (Auto) % (1.0-10.0) % (1.0-10.0) Eosinophils (%) (Auto) % (0.0-3.0) % (0.0-3.0) Basophils (%) (Auto) % (0.0-2.0) % (0.0-2.0) Differential Total Cells Counted 100 100 Neutrophils % (Manual) 86 % (45-75) H 83 % (45-75) H Lymphocytes % (Manual) 7 % (20-45) L 8 % (20-45) L Monocytes % (Manual) 7 % (1-10) 7 % (1-10) Eosinophils % (Manual) 0 % (0-3) 2 % (0-3) Basophils % (Manual) 0 % (0-2) 0 % (0-2) Band Neutrophils 0 % (0-8) 0 % (0-8) Platelet Estimate Decreased L Decreased L Platelet Morphology Normal Normal Anisocytosis 1+ 1+ Arterial Blood pH 7.327 (7.350-7.450) Arterial Blood Partial Pressure CO2 33.2 mmHg (35.0-45.0) L Arterial Blood Partial Pressure O2 115.4 mmHg (75.0-100.0) H Arterial Blood HCO3 17.0 mmol/L (22.0-26.0) *L Arterial Blood Oxygen Saturation 97.5 % (95-100) Arterial Blood Base Excess -8.0 (-2-2) L Ortiz Test Positive Hypochromasia 1+ Sodium Level 143 MMOL/L (136-145) Potassium Level 4.1 MMOL/L (3.5-5.1) Chloride Level 115 MMOL/L (98-107) H Carbon Dioxide Level 16 MMOL/L (21-32) L Anion Gap 12 mmol/L (5-15) Blood Urea Nitrogen 46 mg/dL (7-18) H Creatinine 2.6 MG/DL (0.55-1.30) H Estimat Glomerular Filtration Rate 18.9 mL/min (>60) Glucose Level 132 MG/DL (74-106) H Uric Acid 7.2 MG/DL (2.6-7.2) Calcium Level 8.0 MG/DL (8.5-10.1) L Phosphorus Level 4.1 MG/DL (2.5-4.9) Magnesium Level 1.7 MG/DL (1.8-2.4) L Total Bilirubin 3.6 MG/DL (0.2-1.0) H Direct Bilirubin 2.6 MG/DL (0.0-0.3) H Aspartate Amino Transf (AST/SGOT) 392 U/L (15-37) H Alanine Aminotransferase (ALT/SGPT) 1734 U/L (12-78) H Alkaline Phosphatase 684 U/L (46-116) H Pro-B-Type Natriuretic Peptide 786 pg/mL (0-125) H Total Protein 4.7 G/DL (6.4-8.2) L Albumin 1.4 G/DL (3.4-5.0) L Globulin 3.3 g/dL Albumin/Globulin Ratio 0.4 (1.0-2.7) L Current Medications Medications (Trade) Dose Ordered Sig/Patricia Route PRN Reason Start Time Stop Time Status Last Admin Dose Admin Acetaminophen (Tylenol) 650 mg Q4H PRN ORAL Mild Pain/Temp > 100.5 10/09/18 14:15 11/08/18 14:14 10/11/18 19:43 Albuterol/ Ipratropium (Albuterol/ Ipratropium) 3 ml Q4H PRN HHN Shortness of Breath 10/09/18 14:30 10/14/18 14:29 Amiodarone HCl (Cordarone) 200 mg EVERY 12 HOURS NG 10/13/18 21:00 11/12/18 20:59 10/14/18 09:07 Chlorhexidine Gluconate (Nguyen-Hex 2%) 1 applic DAILY@2000 TOPIC 10/10/18 20:00 11/09/18 19:59 10/13/18 20:38 Dextrose (Dextrose 50%) 25 ml Q30M PRN IV Hypoglycemia 10/11/18 13:45 11/10/18 13:44 10/13/18 05:57 Dextrose (Dextrose 50%) 50 ml Q30M PRN IV Hypoglycemia 10/11/18 13:45 11/10/18 13:44 Digoxin (Lanoxin) 0.125 mg DAILY NG 10/14/18 09:00 11/12/18 08:59 10/14/18 09:07 Diphenhydramine HCl (Benadryl) 25 mg Q6H PRN IVP Itching 10/09/18 14:30 11/08/18 14:29 Fentanyl Citrate 1000 mcg/Sodium Chloride 100 ml @ 0 mls/hr Q24H IV 10/13/18 23:00 10/20/18 22:59 10/13/18 23:07 Insulin Aspart (NovoLOG) BEFORE MEALS AND HS SUBQ 10/11/18 16:30 11/10/18 16:29 10/12/18 17:23 Iron Sucrose 100 mg/Sodium Chloride 60 ml @ 240 mls/hr BEDTIME IV 10/12/18 21:00 10/16/18 21:14 10/13/18 20:38 Lactulose (Cephulac) 30 gm THREE TIMES A DAY ORAL 10/13/18 18:00 11/12/18 17:59 10/14/18 09:07 Midazolam HCl (Versed 2mg/2ml vial) 1 mg Q2H PRN IVP For Anxiety 10/12/18 14:30 11/11/18 14:29 Morphine Sulfate (Morphine Sulfate) 2 mg Q4H PRN IVP Severe Pain (Pain Scale 7-10) 10/09/18 14:15 10/16/18 14:14 10/14/18 09:30 Norepinephrine Bitartrate 16 mg/ Sodium Chloride 500 ml @ 0 mls/hr Q24H IV 10/09/18 21:00 11/08/18 20:59 10/11/18 17:56 Ondansetron HCl (Zofran) 4 mg Q6H PRN IVP Nausea & Vomiting 10/09/18 14:30 11/08/18 14:29 Pantoprazole (Protonix) 40 mg EVERY 12 HOURS IVP 10/10/18 21:00 11/09/18 20:59 10/14/18 09:07 Piperacillin Sod/ Tazobactam Sod 3.375 gm/Dextrose 110 ml @ 27.5 mls/hr Q12H IVPB 10/11/18 18:00 10/18/18 17:59 10/14/18 05:42 Rifaximin (Xifaxan) 550 mg EVERY 12 HOURS ORAL 10/12/18 21:00 10/19/18 20:59 10/14/18 09:08 Sodium Chloride 1,000 ml @ 100 mls/hr Q10H IV 10/11/18 13:45 11/10/18 13:44 10/14/18 01:38 Vancomycin HCl (Vanco rx to dose) 1 ea DAILY PRN MISC Per rx protocol 10/09/18 14:30 11/08/18 14:29 Vasopressin 100 units/Sodium Chloride 105 ml @ 2.52 mls/hr Q24H IV 10/10/18 14:00 11/09/18 13:59 10/12/18 08:06 Wesley Akers MD Oct 14, 2018 09:48
--- NOTE | 2018-10-14 09:48 | NUR ---
NURSE NOTES: Seen by Dr Sanchez, will follow up with new orders
--- NOTE | 2018-10-14 10:01 | NUR ---
NURSE NOTES: Pt had a large episode of BM, good perineal care done.Turned and repositioned.Kept clean dry and comfortable.HOB elevated to prevent aspiration
--- NOTE | 2018-10-14 11:25 | General Progress Note ---
Assessment/Plan Problem List: (1) CAD (coronary artery disease) ICD Codes: I25.10 - Atherosclerotic heart disease of [place] coronary artery without angina pectoris SNOMED: 98298927 (2) RI (3) Thrombocytopenia ICD Codes: D69.6 - Thrombocytopenia, unspecified SNOMED: 135701241 (4) Respiratory failure ICD Codes: J96.90 - Respiratory failure, unspecified, unspecified whether with hypoxia or hypercapnia SNOMED: 287724755 (5) Dysphagia ICD Codes: R13.10 - Dysphagia, unspecified SNOMED: 80654260, 997510993 (6) Elevated CEA ICD Codes: R97.0 - Elevated carcinoembryonic antigen [CEA] SNOMED: 773844300 (7) Shock liver ICD Codes: K72.00 - Acute and subacute hepatic failure without coma SNOMED: 273735686 (8) Respiratory disorder with ventilator dependence ICD Codes: J98.9 - Respiratory disorder, unspecified; Z99.11 - Dependence on respirator [ventilator] status SNOMED: 95437412, 129718921 (9) Liver cirrhosis ICD Codes: K74.60 - Unspecified cirrhosis of liver SNOMED: 81537844 (10) Normocytic anemia ICD Codes: D64.9 - Anemia, unspecified SNOMED: 886659569 Assessment/Plan NGTF KUB>> reviewed ppi BID monitor H&H fu LFTS work up for elevated CEA when more stable lasix and albumin combination xifaxan and lactulose reglan Subjective ROS Limited/Unobtainable: No Allergies: Coded Allergies: No Known Allergies (Unverified , 05/06/18) Objective Last 24 Hour Vital Signs Date Time Temp Pulse Resp B/P (MAP) Pulse Ox O2 Delivery O2 Flow Rate FiO2 10/14/18 10:00 140 21 127/77 (94) 98 10/14/18 10:00 98.0 10/14/18 09:30 140 22 40 10/14/18 09:20 40 10/14/18 09:20 139 27 40 10/14/18 09:07 99 10/14/18 09:00 139 21 163/79 (107) 99 10/14/18 09:00 40 10/14/18 08:00 89 10/14/18 08:00 Mechanical Ventilator 10/14/18 08:00 40 10/14/18 08:00 97.8 97 20 120/63 (82) 97 10/14/18 07:01 99 23 40 10/14/18 07:00 20 Mechanical Ventilator 40 10/14/18 07:00 141 20 113/72 (86) 98 10/14/18 06:30 99 20 114/70 (85) 99 10/14/18 06:00 20 Mechanical Ventilator 40 10/14/18 06:00 136 22 116/70 (85) 98 10/14/18 05:30 144 21 103/75 (84) 97 10/14/18 05:00 106 20 118/68 (85) 98 10/14/18 05:00 20 Mechanical Ventilator 40 10/14/18 04:55 102 23 40 10/14/18 04:45 106 21 103/61 (75) 98 10/14/18 04:30 106 21 125/75 (92) 98 10/14/18 04:00 109 10/14/18 04:00 Mechanical Ventilator 10/14/18 04:00 40 10/14/18 04:00 Mechanical Ventilator 40 10/14/18 04:00 98.3 107 20 109/79 (89) 97 10/14/18 03:31 98 22 40 10/14/18 03:30 110 26 126/69 (88) 10/14/18 03:00 20 Mechanical Ventilator 40 10/14/18 03:00 107 20 128/65 (86) 95 10/14/18 02:30 109 20 127/64 (85) 96 10/14/18 02:00 103 20 95/69 (78) 96 10/14/18 02:00 21 Mechanical Ventilator 40 10/14/18 01:38 20 Mechanical Ventilator 40 10/14/18 01:30 103 20 115/69 (84) 96 10/14/18 01:27 99 21 40 10/14/18 01:00 0 Mechanical Ventilator 40 10/14/18 01:00 104 20 125/71 (89) 97 10/14/18 00:30 100 21 114/67 (83) 97 10/14/18 00:15 102 20 114/69 (84) 97 10/14/18 00:00 98.1 99 20 118/66 (83) 97 10/14/18 00:00 98 10/14/18 00:00 20 Mechanical Ventilator 40 10/14/18 00:00 Mechanical Ventilator 10/14/18 00:00 40 10/13/18 23:30 97 20 135/72 (93) 97 10/13/18 23:28 95 20 40 10/13/18 23:15 98 20 125/67 (86) 98 10/13/18 23:07 20 40 10/13/18 23:00 97 20 119/67 (84) 98 10/13/18 22:45 97 20 125/70 (88) 98 10/13/18 22:30 137 19 123/70 (87) 98 10/13/18 22:15 137 20 119/80 (93) 98 10/13/18 22:00 136 22 109/73 (85) 98 10/13/18 21:30 136 21 110/70 (83) 97 10/13/18 21:06 98 20 40 10/13/18 21:00 102 21 111/63 (79) 98 10/13/18 20:39 116/68 10/13/18 20:30 98 20 116/68 (84) 98 10/13/18 20:00 96 10/13/18 20:00 40 10/13/18 20:00 20 Mechanical Ventilator 40 10/13/18 20:00 Mechanical Ventilator 10/13/18 20:00 99 19 114/61 (78) 98 10/13/18 19:55 99 20 40 10/13/18 19:30 98.3 98 21 118/61 (80) 98 10/13/18 19:00 98 21 110/64 (79) 98 10/13/18 19:00 20 Mechanical Ventilator 40 10/13/18 18:00 Mechanical Ventilator 10/13/18 18:00 98 20 129/65 (86) 98 10/13/18 17:06 94 20 40 10/13/18 17:00 98 20 122/63 (82) 99 10/13/18 17:00 Mechanical Ventilator 10/13/18 16:00 97.8 98 20 105/62 (76) 99 10/13/18 16:00 Mechanical Ventilator 10/13/18 16:00 93 10/13/18 16:00 40 10/13/18 16:00 Mechanical Ventilator 10/13/18 15:00 95 19 110/63 (79) 98 10/13/18 15:00 Mechanical Ventilator 3/2/19 14:47 100 23 40 10/13/18 14:30 20 40 10/13/18 14:00 Mechanical Ventilator 10/13/18 14:00 97 19 117/65 (82) 98 10/13/18 13:01 104 30 40 10/13/18 13:00 Mechanical Ventilator 10/13/18 13:00 99 19 125/68 (87) 98 10/13/18 12:00 98.0 100 20 123/62 (82) 99 10/13/18 12:00 Mechanical Ventilator 10/13/18 12:00 Mechanical Ventilator 10/13/18 12:00 40 10/13/18 12:00 93 Intake and Output 10/13/18 10/14/18 18:59 06:59 Intake Total 1690.875 ml 1581.5 ml Output Total 545 ml 440 ml Balance 1145.875 ml 1141.5 ml Intake Free Water 200 ml IV Total 1290.875 ml 1301.5 ml Tube Feeding 200 ml 250 ml Other 30 ml Output Urine Total 545 ml 440 ml Laboratory Tests 10/13/18 12:35: Arterial Blood pH 7.327L, Arterial Blood Partial Pressure CO2 33.2L, Arterial Blood Partial Pressure O2 115.4H, Arterial Blood HCO3 17.0*L, Arterial Blood Oxygen Saturation 97.5, Arterial Blood Base Excess -8.0L, Ortiz Test Positive 10/14/18 05:29: White Blood Count 11.3H, Red Blood Count 3.74L, Hemoglobin 11.5L, Hematocrit 35.3L, Mean Corpuscular Volume 94, Mean Corpuscular Hemoglobin 30.8, Mean Corpuscular Hemoglobin Concent 32.6, Red Cell Distribution Width 16.8H, Platelet Count 64L, Mean Platelet Volume 6.8, Neutrophils (%) (Auto) , Lymphocytes (%) (Auto) , Monocytes (%) (Auto) , Eosinophils (%) (Auto) , Basophils (%) (Auto) , Differential Total Cells Counted 100, Neutrophils % ( Manual) 83H, Lymphocytes % (Manual) 8L, Monocytes % (Manual) 7, Eosinophils % ( Manual) 2, Basophils % (Manual) 0, Band Neutrophils 0, Platelet Estimate DecreasedL, Platelet Morphology Normal, Hypochromasia 1+, Anisocytosis 1+, Sodium Level 143, Potassium Level 4.1, Chloride Level 115H, Carbon Dioxide Level 16L, Anion Gap 12, Blood Urea Nitrogen 46H, Creatinine 2.6H, Estimat Glomerular Filtration Rate 18.9, Glucose Level 132H, Uric Acid 7.2, Calcium Level 8.0L, Phosphorus Level 4.1, Magnesium Level 1.7L, Total Bilirubin 3.6H, Direct Bilirubin 2.6H, Aspartate Amino Transf (AST/SGOT) 392H, Alanine Aminotransferase (ALT/SGPT) 1734H, Alkaline Phosphatase 684H, Pro-B-Type Natriuretic Peptide 786H, Total Protein 4.7L, Albumin 1.4L, Globulin 3.3, Albumin/Globulin Ratio 0.4L Height (Feet): 5 Height (Inches): 1.00 Weight (Pounds): 247 General Appearance: confused EENT: normal ENT inspection Neck: supple Cardiovascular: normal rate Respiratory/Chest: decreased breath sounds Abdomen: soft, hypoactive bowel sounds, distended Edema: 3+ Leg (L), 3+ Leg (R) Samuel Reynolds MD Oct 14, 2018 11:24
[2018-10-14] MEDS ORDERED: Metoclopramide 10mg/2ml Inj IVP PRN (11:30)
--- NOTE | 2018-10-14 11:41 | NUR ---
NURSE NOTES: Seen by Dr Reynolds,will follow up with new orders
[2018-10-14] MEDS ORDERED: Tubing IV Secondary IV ONE ×2 (11:43→11:48)
--- NOTE | 2018-10-14 11:44 | General Progress Note ---
Assessment/Plan Assessment/Plan Assessment and Recs: # Thrombocytopenia - potential causes multifactorial, evaluate liver and viral etiologies to begin, also could be related to underlying medications patient has received. Hx of cirrhosis in the past noted on us --> Hep panel and HIV negative --> CT a/p to evaluate for cirrhosis and hsm does show cirrhosis as well as us --> Peripheral smear ordered to evaluate for blasts /schistocytes is negative --> abx and other meds have been reviewed --> ok for ppx if plt >50k w/ either heparin or lovenox --> Transfuse if Plt < 20k and fever, or if Plt < 10k without fever --> HIT is pending # Anemia of iron deficiency as noted with low % sat and tibc elevated --> Anemia workup has been reviewed --> No evidence of hemolysis is noted, peripheral smear has been reviewed. --> Hgb goal >7. Transfuse prn. --> Iron IV X 5 days to continue --> Medications have been reviewed # CEA of 10.5 --> Ct of abdomen/pelvis reviewed and is negative # Sepsis likely contributing to low plts --> on abx as needed # Shock, hypovolemic and distributive --> per id and pulm/cc care # Multisystem organ failure. # Lactic acidosis. # JONNATHAN. # Abnormal LFTs, likely shock liver. # Abnormal troponin, likely demand ischemia. # Obesity. # Respiratory failure on vent --> per pulm/cc The timing of this note does not necessarily reflect the time of the patient was seen. Greatly appreciate consultation! Subjective Constitutional: Denies: no symptoms, chills, diaphoresis, fever, malaise, weakness, other HEENT: Denies: no symptoms, eye pain, blurred vision, tearing, double vision, ear pain, ear discharge, nose pain, nose congestion, throat pain, throat swelling, mouth pain, mouth swelling, other Cardiovascular: Denies: no symptoms, chest pain, edema, irregular heart rate, lightheadedness, palpitations, syncope, other Respiratory: Denies: no symptoms, cough, orthopnea, shortness of breath, SOB with excertion, SOB at rest, sputum, stridor, wheezing, other Gastrointestinal/Abdominal: Denies: no symptoms, abdomen distended, abdominal pain, black stools, tarry stools, blood in stool, constipated, diarrhea, difficulty swallowing, nausea, poor appetite, poor fluid intake, rectal bleeding , vomiting, other Genitourinary: Denies: no symptoms, burning, discharge, frequency, flank pain, hematuria, incontinence, pain, urgency, other Neurologic/Psychiatric: Denies: no symptoms, anxiety, depressed, emotional problems, headache, numbness, paresthesia, pre-existing deficit, seizure, tingling, tremors, weakness, other Endocrine: Denies: no symptoms, excessive sweating, flushing, intolerance to cold, intolerance to heat, increased hunger, increased thirst, increased urine, unexplained weight gain, unexplained weight loss, other Allergies: Coded Allergies: No Known Allergies (Unverified , 05/06/18) Subjective 10/12: Pt was seen in ICU on Vent and off pressors, developed atrial fib, wbc trending down to 13, plt trending down to 60 10/14: remains in the icu, monitoring labs, plts stabilizing, remains critically ill, cea elev Objective Last 24 Hour Vital Signs Date Time Temp Pulse Resp B/P (MAP) Pulse Ox O2 Delivery O2 Flow Rate FiO2 10/14/18 11:00 106 21 104/66 (79) 98 10/14/18 10:00 140 21 127/77 (94) 98 10/14/18 10:00 98.0 10/14/18 09:30 140 22 40 10/14/18 09:20 40 10/14/18 09:20 139 27 40 10/14/18 09:07 99 10/14/18 09:00 139 21 163/79 (107) 99 10/14/18 09:00 40 10/14/18 08:00 89 10/14/18 08:00 Mechanical Ventilator 10/14/18 08:00 40 10/14/18 08:00 97.8 97 20 120/63 (82) 97 10/14/18 07:01 99 23 40 10/14/18 07:00 20 Mechanical Ventilator 40 10/14/18 07:00 141 20 113/72 (86) 98 10/14/18 06:30 99 20 114/70 (85) 99 10/14/18 06:00 20 Mechanical Ventilator 40 10/14/18 06:00 136 22 116/70 (85) 98 10/14/18 05:30 144 21 103/75 (84) 97 10/14/18 05:00 106 20 118/68 (85) 98 10/14/18 05:00 20 Mechanical Ventilator 40 10/14/18 04:55 102 23 40 10/14/18 04:45 106 21 103/61 (75) 98 10/14/18 04:30 106 21 125/75 (92) 98 10/14/18 04:00 109 10/14/18 04:00 Mechanical Ventilator 10/14/18 04:00 40 10/14/18 04:00 Mechanical Ventilator 40 10/14/18 04:00 98.3 107 20 109/79 (89) 97 10/14/18 03:31 98 22 40 10/14/18 03:30 110 26 126/69 (88) 10/14/18 03:00 20 Mechanical Ventilator 40 10/14/18 03:00 107 20 128/65 (86) 95 10/14/18 02:30 109 20 127/64 (85) 96 10/14/18 02:00 103 20 95/69 (78) 96 10/14/18 02:00 21 Mechanical Ventilator 40 10/14/18 01:38 20 Mechanical Ventilator 40 10/14/18 01:30 103 20 115/69 (84) 96 10/14/18 01:27 99 21 40 10/14/18 01:00 0 Mechanical Ventilator 40 10/14/18 01:00 104 20 125/71 (89) 97 10/14/18 00:30 100 21 114/67 (83) 97 10/14/18 00:15 102 20 114/69 (84) 97 10/14/18 00:00 98.1 99 20 118/66 (83) 97 10/14/18 00:00 98 10/14/18 00:00 20 Mechanical Ventilator 40 10/14/18 00:00 Mechanical Ventilator 10/14/18 00:00 40 10/13/18 23:30 97 20 135/72 (93) 97 10/13/18 23:28 95 20 40 10/13/18 23:15 98 20 125/67 (86) 98 10/13/18 23:07 20 40 10/13/18 23:00 97 20 119/67 (84) 98 10/13/18 22:45 97 20 125/70 (88) 98 3/2/19 22:30 137 19 123/70 (87) 98 10/13/18 22:15 137 20 119/80 (93) 98 10/13/18 22:00 136 22 109/73 (85) 98 10/13/18 21:30 136 21 110/70 (83) 97 10/13/18 21:06 98 20 40 10/13/18 21:00 102 21 111/63 (79) 98 10/13/18 20:39 116/68 10/13/18 20:30 98 20 116/68 (84) 98 10/13/18 20:00 96 10/13/18 20:00 40 10/13/18 20:00 20 Mechanical Ventilator 40 10/13/18 20:00 Mechanical Ventilator 10/13/18 20:00 99 19 114/61 (78) 98 10/13/18 19:55 99 20 40 10/13/18 19:30 98.3 98 21 118/61 (80) 98 10/13/18 19:00 98 21 110/64 (79) 98 10/13/18 19:00 20 Mechanical Ventilator 40 10/13/18 18:00 Mechanical Ventilator 10/13/18 18:00 98 20 129/65 (86) 98 10/13/18 17:06 94 20 40 10/13/18 17:00 98 20 122/63 (82) 99 10/13/18 17:00 Mechanical Ventilator 10/13/18 16:00 97.8 98 20 105/62 (76) 99 10/13/18 16:00 Mechanical Ventilator 10/13/18 16:00 93 10/13/18 16:00 40 10/13/18 16:00 Mechanical Ventilator 10/13/18 15:00 95 19 110/63 (79) 98 10/13/18 15:00 Mechanical Ventilator 10/13/18 14:47 100 23 40 10/13/18 14:30 20 40 10/13/18 14:00 Mechanical Ventilator 10/13/18 14:00 97 19 117/65 (82) 98 10/13/18 13:01 104 30 40 10/13/18 13:00 Mechanical Ventilator 10/13/18 13:00 99 19 125/68 (87) 98 10/13/18 12:00 98.0 100 20 123/62 (82) 99 10/13/18 12:00 Mechanical Ventilator 10/13/18 12:00 Mechanical Ventilator 10/13/18 12:00 40 10/13/18 12:00 93 Intake and Output 10/13/18 10/14/18 18:59 06:59 Intake Total 1690.875 ml 1581.5 ml Output Total 545 ml 440 ml Balance 1145.875 ml 1141.5 ml Intake Free Water 200 ml IV Total 1290.875 ml 1301.5 ml Tube Feeding 200 ml 250 ml Other 30 ml Output Urine Total 545 ml 440 ml Laboratory Tests 10/13/18 12:35: Arterial Blood pH 7.327L, Arterial Blood Partial Pressure CO2 33.2L, Arterial Blood Partial Pressure O2 115.4H, Arterial Blood HCO3 17.0*L, Arterial Blood Oxygen Saturation 97.5, Arterial Blood Base Excess -8.0L, Ortiz Test Positive 10/14/18 05:29: White Blood Count 11.3H, Red Blood Count 3.74L, Hemoglobin 11.5L, Hematocrit 35.3L, Mean Corpuscular Volume 94, Mean Corpuscular Hemoglobin 30.8, Mean Corpuscular Hemoglobin Concent 32.6, Red Cell Distribution Width 16.8H, Platelet Count 64L, Mean Platelet Volume 6.8, Neutrophils (%) (Auto) , Lymphocytes (%) (Auto) , Monocytes (%) (Auto) , Eosinophils (%) (Auto) , Basophils (%) (Auto) , Differential Total Cells Counted 100, Neutrophils % ( Manual) 83H, Lymphocytes % (Manual) 8L, Monocytes % (Manual) 7, Eosinophils % ( Manual) 2, Basophils % (Manual) 0, Band Neutrophils 0, Platelet Estimate DecreasedL, Platelet Morphology Normal, Hypochromasia 1+, Anisocytosis 1+, Sodium Level 143, Potassium Level 4.1, Chloride Level 115H, Carbon Dioxide Level 16L, Anion Gap 12, Blood Urea Nitrogen 46H, Creatinine 2.6H, Estimat Glomerular Filtration Rate 18.9, Glucose Level 132H, Uric Acid 7.2, Calcium Level 8.0L, Phosphorus Level 4.1, Magnesium Level 1.7L, Total Bilirubin 3.6H, Direct Bilirubin 2.6H, Aspartate Amino Transf (AST/SGOT) 392H, Alanine Aminotransferase (ALT/SGPT) 1734H, Alkaline Phosphatase 684H, Pro-B-Type Natriuretic Peptide 786H, Total Protein 4.7L, Albumin 1.4L, Globulin 3.3, Albumin/Globulin Ratio 0.4L Height (Feet): 5 Height (Inches): 1.00 Weight (Pounds): 247 Objective PHYSICAL EXAMINATION: VITAL SIGNS: reviewed, saturating 100% on VENT GENERAL: She is an obese female, confused. HEENT: Normocephalic and atraumatic. Oropharynx is clear with dry mucous membranes. NECK: Supple without lymphadenopathy or JVP. CHEST: Clear. ++ Vent HEART: Regular. ABDOMEN: Benign. EXTREMITIES: No cyanosis, clubbing, or edema. There are some ecchymoses in bilateral lower extremities. Kurtis Villagomez MD Oct 14, 2018 11:44
[2018-10-14] MEDS ORDERED: NS 275ml ONE (11:48)
--- NOTE | 2018-10-14 12:20 | NUR ---
NURSE NOTES: Turned and repositioned,rectal tube inserted per Dr Reynolds.Seen by Dr Cueto,will follow up with new order
--- NOTE | 2018-10-14 13:03 | NUR ---
NURSE NOTES: Seen by Dr Clark,will follow up new orders
--- NOTE | 2018-10-14 13:18 | Nephrology Progress Note ---
Assessment/Plan Problem List: (1) JONNATHAN (acute kidney injury) (2) Shock liver (3) Septic shock (4) Respiratory disorder with ventilator dependence Assessment - Acute Oliguric Renal Failure Cr down to 2.6 - Respiratory disorder with ventilator dependence - Septic shock , Leukocytosis - Pneumonia - Liver cirrhosis - Obese - Anemia . Plan transfused 2 units previously down on IV fluid Hemodynamic support Pulmunary support Monitor renal parameters avoid nephrotoxics as best as possible per orders discussed with RN Subjective ROS Limited/Unobtainable: Yes Objective Objective Last 24 Hour Vital Signs Date Time Temp Pulse Resp B/P (MAP) Pulse Ox O2 Delivery O2 Flow Rate FiO2 10/14/18 13:00 108 20 101/70 (80) 98 10/14/18 13:00 Mechanical Ventilator 10/14/18 12:00 Mechanical Ventilator 10/14/18 12:00 114 10/14/18 12:00 97.6 112 20 116/74 (88) 98 10/14/18 12:00 Mechanical Ventilator 10/14/18 11:00 107 21 40 10/14/18 11:00 Mechanical Ventilator 10/14/18 11:00 106 21 104/66 (79) 98 10/14/18 10:00 140 21 127/77 (94) 98 10/14/18 10:00 Mechanical Ventilator 10/14/18 10:00 98.0 10/14/18 09:30 140 22 40 10/14/18 09:20 40 10/14/18 09:20 139 27 40 10/14/18 09:07 99 10/14/18 09:00 139 21 163/79 (107) 99 10/14/18 09:00 40 10/14/18 08:00 89 10/14/18 08:00 Mechanical Ventilator 10/14/18 08:00 40 10/14/18 08:00 97.8 97 20 120/63 (82) 97 10/14/18 07:01 99 23 40 10/14/18 07:00 20 Mechanical Ventilator 40 10/14/18 07:00 141 20 113/72 (86) 98 10/14/18 06:30 99 20 114/70 (85) 99 10/14/18 06:00 20 Mechanical Ventilator 40 10/14/18 06:00 136 22 116/70 (85) 98 10/14/18 05:30 144 21 103/75 (84) 97 10/14/18 05:00 106 20 118/68 (85) 98 10/14/18 05:00 20 Mechanical Ventilator 40 10/14/18 04:55 102 23 40 10/14/18 04:45 106 21 103/61 (75) 98 10/14/18 04:30 106 21 125/75 (92) 98 10/14/18 04:00 109 10/14/18 04:00 Mechanical Ventilator 10/14/18 04:00 40 10/14/18 04:00 Mechanical Ventilator 40 10/14/18 04:00 98.3 107 20 109/79 (89) 97 10/14/18 03:31 98 22 40 10/14/18 03:30 110 26 126/69 (88) 10/14/18 03:00 20 Mechanical Ventilator 40 10/14/18 03:00 107 20 128/65 (86) 95 10/14/18 02:30 109 20 127/64 (85) 96 10/14/18 02:00 103 20 95/69 (78) 96 10/14/18 02:00 21 Mechanical Ventilator 40 10/14/18 01:38 20 Mechanical Ventilator 40 10/14/18 01:30 103 20 115/69 (84) 96 10/14/18 01:27 99 21 40 10/14/18 01:00 0 Mechanical Ventilator 40 10/14/18 01:00 104 20 125/71 (89) 97 10/14/18 00:30 100 21 114/67 (83) 97 10/14/18 00:15 102 20 114/69 (84) 97 10/14/18 00:00 98.1 99 20 118/66 (83) 97 10/14/18 00:00 98 10/14/18 00:00 20 Mechanical Ventilator 40 10/14/18 00:00 Mechanical Ventilator 10/14/18 00:00 40 10/13/18 23:30 97 20 135/72 (93) 97 10/13/18 23:28 95 20 40 10/13/18 23:15 98 20 125/67 (86) 98 10/13/18 23:07 20 40 10/13/18 23:00 97 20 119/67 (84) 98 10/13/18 22:45 97 20 125/70 (88) 98 10/13/18 22:30 137 19 123/70 (87) 98 10/13/18 22:15 137 20 119/80 (93) 98 10/13/18 22:00 136 22 109/73 (85) 98 10/13/18 21:30 136 21 110/70 (83) 97 10/13/18 21:06 98 20 40 10/13/18 21:00 102 21 111/63 (79) 98 10/13/18 20:39 116/68 10/13/18 20:30 98 20 116/68 (84) 98 10/13/18 20:00 96 10/13/18 20:00 40 10/13/18 20:00 20 Mechanical Ventilator 40 10/13/18 20:00 Mechanical Ventilator 10/13/18 20:00 99 19 114/61 (78) 98 10/13/18 19:55 99 20 40 10/13/18 19:30 98.3 98 21 118/61 (80) 98 10/13/18 19:00 98 21 110/64 (79) 98 10/13/18 19:00 20 Mechanical Ventilator 40 10/13/18 18:00 Mechanical Ventilator 10/13/18 18:00 98 20 129/65 (86) 98 10/13/18 17:06 94 20 40 10/13/18 17:00 98 20 122/63 (82) 99 10/13/18 17:00 Mechanical Ventilator 10/13/18 16:00 97.8 98 20 105/62 (76) 99 10/13/18 16:00 Mechanical Ventilator 10/13/18 16:00 93 10/13/18 16:00 40 10/13/18 16:00 Mechanical Ventilator 10/13/18 15:00 95 19 110/63 (79) 98 10/13/18 15:00 Mechanical Ventilator 10/13/18 14:47 100 23 40 10/13/18 14:30 20 40 10/13/18 14:00 Mechanical Ventilator 10/13/18 14:00 97 19 117/65 (82) 98 Intake and Output 10/13/18 10/14/18 19:00 07:00 Intake Total 1720.875 ml 1590.5 ml Output Total 505 ml 410 ml Balance 1215.875 ml 1180.5 ml Intake Free Water 200 ml IV Total 1290.875 ml 1300.5 ml Tube Feeding 230 ml 260 ml Other 30 ml Output Urine Total 505 ml 410 ml Laboratory Tests 10/14/18 05:29: White Blood Count 11.3H, Red Blood Count 3.74L, Hemoglobin 11.5L, Hematocrit 35.3L, Mean Corpuscular Volume 94, Mean Corpuscular Hemoglobin 30.8, Mean Corpuscular Hemoglobin Concent 32.6, Red Cell Distribution Width 16.8H, Platelet Count 64L, Mean Platelet Volume 6.8, Neutrophils (%) (Auto) , Lymphocytes (%) (Auto) , Monocytes (%) (Auto) , Eosinophils (%) (Auto) , Basophils (%) (Auto) , Differential Total Cells Counted 100, Neutrophils % ( Manual) 83H, Lymphocytes % (Manual) 8L, Monocytes % (Manual) 7, Eosinophils % ( Manual) 2, Basophils % (Manual) 0, Band Neutrophils 0, Platelet Estimate DecreasedL, Platelet Morphology Normal, Hypochromasia 1+, Anisocytosis 1+, Sodium Level 143, Potassium Level 4.1, Chloride Level 115H, Carbon Dioxide Level 16L, Anion Gap 12, Blood Urea Nitrogen 46H, Creatinine 2.6H, Estimat Glomerular Filtration Rate 18.9, Glucose Level 132H, Uric Acid 7.2, Calcium Level 8.0L, Phosphorus Level 4.1, Magnesium Level 1.7L, Total Bilirubin 3.6H, Direct Bilirubin 2.6H, Aspartate Amino Transf (AST/SGOT) 392H, Alanine Aminotransferase (ALT/SGPT) 1734H, Alkaline Phosphatase 684H, Pro-B-Type Natriuretic Peptide 786H, Total Protein 4.7L, Albumin 1.4L, Globulin 3.3, Albumin/Globulin Ratio 0.4L 10/14/18 12:15: HIV (1&2) Antibody Rapid [Pending] Height (Feet): 5 Height (Inches): 1.00 Weight (Pounds): 247 EENT: other - vented Cardiovascular: tachycardia Respiratory/Chest: decreased breath sounds Abdomen: distended, other - OG feeding Alex Cueto MD Oct 14, 2018 13:18
--- NOTE | 2018-10-14 13:20 | NUR ---
RD ASSESSMENT & RECOMMENDATIONS SEE CARE ACTIVITY FOR COMPLETE ASSESSMENT DAILY ESTIMATED NEEDS: Needs based on Sepsis, critical care 22-28, 64kg adj kcals/kg 1590-4618 total kcals 1.2-2, 64kg adj g protein/kg 77-128 g total protein Fluid per MD NUTRITION DIAGNOSIS: 1) Swallowing difficulty r/t respiratory status as evidenced by pt is orally intubated, on multiple pressors, NGT feeds initiated. 2) Altered nutrition related lab values r/t critical care. septic shock and multi organ failure as evidenced by critically elev WBC now trending down (15.3), elev creat kinase (3542), elev LFT's, elev phos (5.2), elev Creat (2.7), elev ammonia (62), elev BNP (6076), elev A1C (11.0), elev BG (200's-300's). CURRENT TF:Glucerna 1.2 goal 60ml/hr ENTERAL NUTRITION RECOMMENDATIONS: Vital 1.2 @50ml/hr x24 hrs to provide 1200ml, 1440 kcal, 90g prot, 973ml free H2O - With hemodynamic stability-> rec non oral feeds to meet est needs - Start VITAL @20ml/hr for 6 hrs, advance as tolerated 10ml/hr q4-6 hrs to goal - Flush per MD, HOB over 30 degrees ----- WITHOUT HEMODYNAMIC STABILITY, REC MEDICALLY ABLE TROPHIC FEEDS OF 5-10ML/HR TO MAINTAIN GUT INTEGRITY ADDITIONAL RECOMMENDATIONS: * TF RECS ABOVE WHEN STABLE * CALIBRATED BED SCALE WTS * MONITOR RENAL PARAMETERS, NEED FOR TF REC CHANGE
--- NOTE | 2018-10-14 13:24 | Surgery Progress Note ---
Surgery Progress Note Subjective Additional Comments no acute events. stable. comfortable. Objective Last 24 Hour Vital Signs Date Time Temp Pulse Resp B/P (MAP) Pulse Ox O2 Delivery O2 Flow Rate FiO2 10/14/18 13:00 108 20 101/70 (80) 98 10/14/18 13:00 Mechanical Ventilator 10/14/18 12:00 Mechanical Ventilator 10/14/18 12:00 114 10/14/18 12:00 97.6 112 20 116/74 (88) 98 10/14/18 12:00 Mechanical Ventilator 10/14/18 11:00 107 21 40 10/14/18 11:00 Mechanical Ventilator 10/14/18 11:00 106 21 104/66 (79) 98 10/14/18 10:00 140 21 127/77 (94) 98 10/14/18 10:00 Mechanical Ventilator 10/14/18 10:00 98.0 10/14/18 09:30 140 22 40 10/14/18 09:20 40 10/14/18 09:20 139 27 40 10/14/18 09:07 99 10/14/18 09:00 139 21 163/79 (107) 99 10/14/18 09:00 40 10/14/18 08:00 89 10/14/18 08:00 Mechanical Ventilator 10/14/18 08:00 40 10/14/18 08:00 97.8 97 20 120/63 (82) 97 10/14/18 07:01 99 23 40 10/14/18 07:00 20 Mechanical Ventilator 40 10/14/18 07:00 141 20 113/72 (86) 98 10/14/18 06:30 99 20 114/70 (85) 99 10/14/18 06:00 20 Mechanical Ventilator 40 10/14/18 06:00 136 22 116/70 (85) 98 10/14/18 05:30 144 21 103/75 (84) 97 10/14/18 05:00 106 20 118/68 (85) 98 10/14/18 05:00 20 Mechanical Ventilator 40 10/14/18 04:55 102 23 40 10/14/18 04:45 106 21 103/61 (75) 98 10/14/18 04:30 106 21 125/75 (92) 98 10/14/18 04:00 109 10/14/18 04:00 Mechanical Ventilator 10/14/18 04:00 40 10/14/18 04:00 Mechanical Ventilator 40 10/14/18 04:00 98.3 107 20 109/79 (89) 97 10/14/18 03:31 98 22 40 10/14/18 03:30 110 26 126/69 (88) 10/14/18 03:00 20 Mechanical Ventilator 40 10/14/18 03:00 107 20 128/65 (86) 95 10/14/18 02:30 109 20 127/64 (85) 96 10/14/18 02:00 103 20 95/69 (78) 96 10/14/18 02:00 21 Mechanical Ventilator 40 10/14/18 01:38 20 Mechanical Ventilator 40 10/14/18 01:30 103 20 115/69 (84) 96 10/14/18 01:27 99 21 40 10/14/18 01:00 0 Mechanical Ventilator 40 10/14/18 01:00 104 20 125/71 (89) 97 10/14/18 00:30 100 21 114/67 (83) 97 10/14/18 00:15 102 20 114/69 (84) 97 10/14/18 00:00 98.1 99 20 118/66 (83) 97 10/14/18 00:00 98 10/14/18 00:00 20 Mechanical Ventilator 40 10/14/18 00:00 Mechanical Ventilator 10/14/18 00:00 40 10/13/18 23:30 97 20 135/72 (93) 97 10/13/18 23:28 95 20 40 10/13/18 23:15 98 20 125/67 (86) 98 10/13/18 23:07 20 40 10/13/18 23:00 97 20 119/67 (84) 98 10/13/18 22:45 97 20 125/70 (88) 98 10/13/18 22:30 137 19 123/70 (87) 98 10/13/18 22:15 137 20 119/80 (93) 98 10/13/18 22:00 136 22 109/73 (85) 98 10/13/18 21:30 136 21 110/70 (83) 97 10/13/18 21:06 98 20 40 10/13/18 21:00 102 21 111/63 (79) 98 10/13/18 20:39 116/68 10/13/18 20:30 98 20 116/68 (84) 98 10/13/18 20:00 96 10/13/18 20:00 40 10/13/18 20:00 20 Mechanical Ventilator 40 10/13/18 20:00 Mechanical Ventilator 10/13/18 20:00 99 19 114/61 (78) 98 10/13/18 19:55 99 20 40 10/13/18 19:30 98.3 98 21 118/61 (80) 98 10/13/18 19:00 98 21 110/64 (79) 98 10/13/18 19:00 20 Mechanical Ventilator 40 10/13/18 18:00 Mechanical Ventilator 10/13/18 18:00 98 20 129/65 (86) 98 10/13/18 17:06 94 20 40 10/13/18 17:00 98 20 122/63 (82) 99 10/13/18 17:00 Mechanical Ventilator 10/13/18 16:00 97.8 98 20 105/62 (76) 99 10/13/18 16:00 Mechanical Ventilator 10/13/18 16:00 93 10/13/18 16:00 40 10/13/18 16:00 Mechanical Ventilator 10/13/18 15:00 95 19 110/63 (79) 98 10/13/18 15:00 Mechanical Ventilator 10/13/18 14:47 100 23 40 10/13/18 14:30 20 40 10/13/18 14:00 Mechanical Ventilator 10/13/18 14:00 97 19 117/65 (82) 98 I&O Intake and Output 10/13/18 10/14/18 18:59 06:59 Intake Total 1690.875 ml 1581.5 ml Output Total 545 ml 440 ml Balance 1145.875 ml 1141.5 ml Intake Free Water 200 ml IV Total 1290.875 ml 1301.5 ml Tube Feeding 200 ml 250 ml Other 30 ml Output Urine Total 545 ml 440 ml Dressing: other Wound: other Drains: other Cardiovascular: RSR Respiratory: clear Abdomen: soft, non-tender, non-distended Extremities: no tenderness, no cyanosis Laboratory Tests Test 10/14/18 05:29 10/14/18 12:15 White Blood Count 11.3 K/UL (4.8-10.8) H Red Blood Count 3.74 M/UL (4.20-5.40) L Hemoglobin 11.5 G/DL (12.0-16.0) L Hematocrit 35.3 % (37.0-47.0) L Mean Corpuscular Volume 94 FL (80-99) Mean Corpuscular Hemoglobin 30.8 PG (27.0-31.0) Mean Corpuscular Hemoglobin Concent 32.6 G/DL (32.0-36.0) Red Cell Distribution Width 16.8 % (11.6-14.8) H Platelet Count 64 K/UL (150-450) L Mean Platelet Volume 6.8 FL (6.5-10.1) Neutrophils (%) (Auto) % (45.0-75.0) Lymphocytes (%) (Auto) % (20.0-45.0) Monocytes (%) (Auto) % (1.0-10.0) Eosinophils (%) (Auto) % (0.0-3.0) Basophils (%) (Auto) % (0.0-2.0) Differential Total Cells Counted 100 Neutrophils % (Manual) 83 % (45-75) H Lymphocytes % (Manual) 8 % (20-45) L Monocytes % (Manual) 7 % (1-10) Eosinophils % (Manual) 2 % (0-3) Basophils % (Manual) 0 % (0-2) Band Neutrophils 0 % (0-8) Platelet Estimate Decreased L Platelet Morphology Normal Hypochromasia 1+ Anisocytosis 1+ Sodium Level 143 MMOL/L (136-145) Potassium Level 4.1 MMOL/L (3.5-5.1) Chloride Level 115 MMOL/L (98-107) H Carbon Dioxide Level 16 MMOL/L (21-32) L Anion Gap 12 mmol/L (5-15) Blood Urea Nitrogen 46 mg/dL (7-18) H Creatinine 2.6 MG/DL (0.55-1.30) H Estimat Glomerular Filtration Rate 18.9 mL/min (>60) Glucose Level 132 MG/DL (74-106) H Uric Acid 7.2 MG/DL (2.6-7.2) Calcium Level 8.0 MG/DL (8.5-10.1) L Phosphorus Level 4.1 MG/DL (2.5-4.9) Magnesium Level 1.7 MG/DL (1.8-2.4) L Total Bilirubin 3.6 MG/DL (0.2-1.0) H Direct Bilirubin 2.6 MG/DL (0.0-0.3) H Aspartate Amino Transf (AST/SGOT) 392 U/L (15-37) H Alanine Aminotransferase (ALT/SGPT) 1734 U/L (12-78) H Alkaline Phosphatase 684 U/L (46-116) H Pro-B-Type Natriuretic Peptide 786 pg/mL (0-125) H Total Protein 4.7 G/DL (6.4-8.2) L Albumin 1.4 G/DL (3.4-5.0) L Globulin 3.3 g/dL Albumin/Globulin Ratio 0.4 (1.0-2.7) L HIV (1&2) Antibody Rapid Pending Plan Problems: (1) Multiple injuries due to trauma (2) Sepsis Assessment & Plan: Labs noted lactic acidosis improved with resuscitation CT findings: Limited assessment of the GI tract, due to lack of enteric contrast administration. Exam is also limited due to patient motion artifact and lack of IV contrast administration Evidence of hepatic cirrhosis Small amount of ascites, likely related to the above Surgically absent gallbladder Bilateral basilar pulmonary parenchymal atelectatic changes and possible patchy consolidation Minimal edema of the bilateral flank subcutaneous fat Other findings as noted, including degenerative spondylosis, right hepatic lobe capsular calcification, Quiroz catheter has made a great improvement. denies abd pain. labs improved. cont with ICU care -npo -iv fluids -iv abx -trend labs -Wean vent as tolerated will follow with recs thank you (3) Liver cirrhosis Josh Samuel Oct 14, 2018 13:24
[2018-10-14] MEDS ORDERED: Digoxin 0.5mg/2ml Inj IVP SCH (13:30)
[2018-10-14] MEDS: VASOPRESSIN IV SCH (14:00)
[2018-10-14] MEDS: NS IV SCH (14:00)
--- NOTE | 2018-10-14 14:11 | NUR ---
NURSE NOTES: ADLs done,head of bed elevated to prevent aspiration,turned and repositioned.Will continue to monitor
--- NOTE | 2018-10-14 16:09 | NUR ---
NURSE NOTES: PT PERINEAL AND FACIAL CARE DONE,TURNED AND REPOSITIONED.GT FEEDING HELD RESIDUAL >100CC. REGLAN GIVEN,HOB ELEVATED TO PREVENT ASPIRATION.KEPT CLEAN AND DRY
[2018-10-14] MEDS: Lactulose 20gm/30ml UDC NG SCH (17:22)
--- NOTE | 2018-10-14 18:31 | NUR ---
NURSE NOTES: RESIDUAL REMAINS AT 100CC, GT REMAINS ON HOLD,PT TURNED AND REPOSITIONED.HOB ELEVATED TO PREVENT ASPIRATION.KEPT CLEAN AND DRY.WILL CONTINUE TO MONITOR
--- NOTE | 2018-10-14 19:24 | NUR ---
HAND-OFF: Report given to KARI TENORIO.
--- NOTE | 2018-10-14 20:00 | NUR ---
NURSE NOTES: Report received from Abbi PIERCE. Patient is Awake and afebrile at this time with no apparent acute distress. Orally intubated with ETT 03/03 and AC 20, Vt 500 Fio2 40%, Peep 5. Fentanyl running at 10mcg/1ml, Right femoral line running NS at 50 cc/hr.Quiroz cath draining yellowish urine with no apparent sediment. Mouth care done, turned and repositioned. Kept clean and dry, call light within easy reach. Kept on close monitoring. Patient noted to have approximately 250ml of feed residual. Feeds will be on hold until for now.
[2018-10-14] MEDS: Dyna-Hex 2% Top Sol 2oz TOPIC SCH (20:38)
[2018-10-14] MEDS: Norepinephrine Bitartrate 16 MG in Sodium Chloride 484 ML IV SCH (20:38)
[2018-10-14] MEDS: Iron Sucrose 100 MG in NS 55 ML IV SCH (20:38)
--- NOTE | 2018-10-14 21:13 | General Progress Note ---
Assessment/Plan Problem List: (1) Hypotension ICD Codes: I95.9 - Hypotension, unspecified SNOMED: 21955398 (2) Hyperglycemia ICD Codes: R73.9 - Hyperglycemia, unspecified SNOMED: 56377265 (3) Dyspnea ICD Codes: R06.00 - Dyspnea, unspecified SNOMED: 105858222 (4) Hypoxemia ICD Codes: R09.02 - Hypoxemia SNOMED: 408425158 (5) Contusion of left knee ICD Codes: S80.02XA - Contusion of left knee, initial encounter SNOMED: 58925316 (6) Sepsis ICD Codes: A41.9 - Sepsis, unspecified organism SNOMED: 22417360 (7) Septic shock ICD Codes: A41.9 - Sepsis, unspecified organism; R65.21 - Severe sepsis with septic shock SNOMED: 07359696 (8) Liver cirrhosis ICD Codes: K74.60 - Unspecified cirrhosis of liver SNOMED: 53595821 (9) Pneumonia ICD Codes: J18.9 - Pneumonia, unspecified organism SNOMED: 145044640 (10) Respiratory disorder with ventilator dependence ICD Codes: J98.9 - Respiratory disorder, unspecified; Z99.11 - Dependence on respirator [ventilator] status SNOMED: 44699571, 098071630 (11) Shock liver ICD Codes: K72.00 - Acute and subacute hepatic failure without coma SNOMED: 150977595 Status: progressing Assessment/Plan shock liver improving intubated edema weaning off ventilator per pulmonary no chills off pressor abx per id check lytes cihrrosis sepsis obesity morbid respiratory failure pna Subjective ROS Limited/Unobtainable: Yes Allergies: Coded Allergies: No Known Allergies (Unverified , 05/06/18) Objective Last 24 Hour Vital Signs Date Time Temp Pulse Resp B/P (MAP) Pulse Ox O2 Delivery O2 Flow Rate FiO2 10/14/18 20:46 117 23 40 10/14/18 20:38 123/71 10/14/18 19:24 121 22 40 10/14/18 19:00 Mechanical Ventilator 10/14/18 19:00 118 18 123/71 (88) 99 10/14/18 18:00 116 21 118/72 (87) 100 10/14/18 18:00 Mechanical Ventilator 10/14/18 17:00 112 16 123/62 (82) 100 10/14/18 17:00 Mechanical Ventilator 10/14/18 16:35 115 23 40 10/14/18 16:00 Mechanical Ventilator 10/14/18 16:00 40 10/14/18 16:00 Mechanical Ventilator 10/14/18 16:00 108 18 119/70 (86) 99 10/14/18 16:00 112 10/14/18 15:00 106 24 104/65 (78) 97 10/14/18 15:00 Mechanical Ventilator 10/14/18 14:30 103 24 40 10/14/18 14:16 105 10/14/18 14:16 Mechanical Ventilator 10/14/18 14:00 104 24 111/66 (81) 97 10/14/18 13:00 108 20 101/70 (80) 98 10/14/18 13:00 Mechanical Ventilator 10/14/18 13:00 Mechanical Ventilator 10/14/18 12:43 112 21 40 10/14/18 12:00 Mechanical Ventilator 10/14/18 12:00 114 10/14/18 12:00 97.6 112 20 116/74 (88) 98 10/14/18 12:00 Mechanical Ventilator 10/14/18 11:00 107 21 40 10/14/18 11:00 Mechanical Ventilator 10/14/18 11:00 106 21 104/66 (79) 98 10/14/18 10:00 140 21 127/77 (94) 98 10/14/18 10:00 Mechanical Ventilator 10/14/18 10:00 98.0 10/14/18 09:30 140 22 40 10/14/18 09:30 40 10/14/18 09:20 40 10/14/18 09:20 139 27 40 10/14/18 09:07 99 10/14/18 09:00 139 21 163/79 (107) 99 10/14/18 09:00 40 10/14/18 08:00 89 10/14/18 08:00 Mechanical Ventilator 10/14/18 08:00 40 10/14/18 08:00 97.8 97 20 120/63 (82) 97 10/14/18 07:01 99 23 40 10/14/18 07:00 20 Mechanical Ventilator 40 10/14/18 07:00 141 20 113/72 (86) 98 10/14/18 06:30 99 20 114/70 (85) 99 10/14/18 06:00 20 Mechanical Ventilator 40 10/14/18 06:00 136 22 116/70 (85) 98 10/14/18 05:30 144 21 103/75 (84) 97 10/14/18 05:00 106 20 118/68 (85) 98 10/14/18 05:00 20 Mechanical Ventilator 40 10/14/18 04:55 102 23 40 10/14/18 04:45 106 21 103/61 (75) 98 10/14/18 04:30 106 21 125/75 (92) 98 10/14/18 04:00 109 10/14/18 04:00 Mechanical Ventilator 10/14/18 04:00 40 10/14/18 04:00 Mechanical Ventilator 40 10/14/18 04:00 98.3 107 20 109/79 (89) 97 10/14/18 03:31 98 22 40 10/14/18 03:30 110 26 126/69 (88) 10/14/18 03:00 20 Mechanical Ventilator 40 10/14/18 03:00 107 20 128/65 (86) 95 10/14/18 02:30 109 20 127/64 (85) 96 10/14/18 02:00 103 20 95/69 (78) 96 10/14/18 02:00 21 Mechanical Ventilator 40 10/14/18 01:38 20 Mechanical Ventilator 40 10/14/18 01:30 103 20 115/69 (84) 96 10/14/18 01:27 99 21 40 10/14/18 01:00 0 Mechanical Ventilator 40 10/14/18 01:00 104 20 125/71 (89) 97 10/14/18 00:30 100 21 114/67 (83) 97 10/14/18 00:15 102 20 114/69 (84) 97 10/14/18 00:00 98.1 99 20 118/66 (83) 97 10/14/18 00:00 98 10/14/18 00:00 20 Mechanical Ventilator 40 10/14/18 00:00 Mechanical Ventilator 10/14/18 00:00 40 10/13/18 23:30 97 20 135/72 (93) 97 10/13/18 23:28 95 20 40 10/13/18 23:15 98 20 125/67 (86) 98 10/13/18 23:07 20 40 10/13/18 23:00 97 20 119/67 (84) 98 10/13/18 22:45 97 20 125/70 (88) 98 10/13/18 22:30 137 19 123/70 (87) 98 10/13/18 22:15 137 20 119/80 (93) 98 10/13/18 22:00 136 22 109/73 (85) 98 10/13/18 21:30 136 21 110/70 (83) 97 Intake and Output 10/13/18 10/14/18 19:00 07:00 Intake Total 1720.875 ml 1590.5 ml Output Total 505 ml 410 ml Balance 1215.875 ml 1180.5 ml Intake Free Water 200 ml IV Total 1290.875 ml 1300.5 ml Tube Feeding 230 ml 260 ml Other 30 ml Output Urine Total 505 ml 410 ml Laboratory Tests 10/14/18 05:29: White Blood Count 11.3H, Red Blood Count 3.74L, Hemoglobin 11.5L, Hematocrit 35.3L, Mean Corpuscular Volume 94, Mean Corpuscular Hemoglobin 30.8, Mean Corpuscular Hemoglobin Concent 32.6, Red Cell Distribution Width 16.8H, Platelet Count 64L, Mean Platelet Volume 6.8, Neutrophils (%) (Auto) , Lymphocytes (%) (Auto) , Monocytes (%) (Auto) , Eosinophils (%) (Auto) , Basophils (%) (Auto) , Differential Total Cells Counted 100, Neutrophils % ( Manual) 83H, Lymphocytes % (Manual) 8L, Monocytes % (Manual) 7, Eosinophils % ( Manual) 2, Basophils % (Manual) 0, Band Neutrophils 0, Platelet Estimate DecreasedL, Platelet Morphology Normal, Hypochromasia 1+, Anisocytosis 1+, Sodium Level 143, Potassium Level 4.1, Chloride Level 115H, Carbon Dioxide Level 16L, Anion Gap 12, Blood Urea Nitrogen 46H, Creatinine 2.6H, Estimat Glomerular Filtration Rate 18.9, Glucose Level 132H, Uric Acid 7.2, Calcium Level 8.0L, Phosphorus Level 4.1, Magnesium Level 1.7L, Total Bilirubin 3.6H, Direct Bilirubin 2.6H, Aspartate Amino Transf (AST/SGOT) 392H, Alanine Aminotransferase (ALT/SGPT) 1734H, Alkaline Phosphatase 684H, Pro-B-Type Natriuretic Peptide 786H, Total Protein 4.7L, Albumin 1.4L, Globulin 3.3, Albumin/Globulin Ratio 0.4L 10/14/18 12:15: HIV (1&2) Antibody Rapid Negative Height (Feet): 5 Height (Inches): 1.00 Weight (Pounds): 247 General Appearance: confused Cardiovascular: normal rate Respiratory/Chest: lungs clear Abdomen: soft, no mass Michael Kelley MD Oct 14, 2018 21:13
--- NOTE | 2018-10-14 22:00 | NUR ---
NURSE NOTES: Patient repositioned. Rectal tube noted to be leaking. Quiroz care provided, patient cleaned CHG soap used. Positioned patient to side. fentanyl gtt ongoing, patient is arousable and not pulling on tubing and lines. Feeds remain on hold.
[2018-10-15] VITALS (34 sets, daily range): BP systolic 98–180; BP diastolic 52–88
--- NOTE | 2018-10-15 | NUR ---
NURSE NOTES: Patient repositioned, feeds remains on hold. Fentanyl gtt ongoing, Vitals remains stable, afebrile.
[2018-10-15] MEDS: fentaNYL Citrate 1000 MCG in NS 100ml IV SCH ×2 (00:44→22:35)
--- NOTE | 2018-10-15 02:00 | NUR ---
NURSE NOTES: 1000ml of stool collected, new bag applied. Patients residual is 125ml. Feeds continue to remains on hold. Patient remains stable at this time, HR continues to be tachy, no HR is 110-117 ST. IV Central line dressing changed.
--- NOTE | 2018-10-15 04:00 | NUR ---
NURSE NOTES: Patient repositioned and cleaned. Quiroz care was provided. Oral care was provided. Skin barrier cream provided. Patients HR now in the low 100s. Blood pressure remained stable. Will continue to monitor.
--- NOTE | 2018-10-15 05:00 | NUR ---
NURSE NOTES: Patients feed residual noted to be 75ml. Restarted feeds at 20ml/hr.
--- NOTE | 2018-10-15 05:10 | NUR ---
NURSE NOTES: Will hold feeds for possible am weaning trials.
[2018-10-15] MEDS: Piperacillin/Tazobactam 3.375 GM in D5W 110 ML IVPB SCH ×2 (05:35→17:48)
[2018-10-15] MEDS: NovoLOG Insulin Flexpen SUBQ SCH ×4 (05:37→21:35)
--- NOTE | 2018-10-15 06:00 | NUR ---
NURSE NOTES: fentanyl gtt held for possible am weaning trials.
[2018-10-15 06:18] LABS: AMMONIA 65 umol/L (11-32)
[2018-10-15 06:55] LABS: ALANINE AMINOTRANSFERASE 1132 U/L (12-78); ALBUMIN 1.8 G/DL (3.4-5.0); ALBUMIN/GLOBULIN RATIO 0.6 (1.0-2.7); ALKALINE PHOSPHATASE 557 U/L (46-116); ANION GAP 14 mmol/L (5-15); ASPARTATE AMINO TRANSFERASE 164 U/L (15-37); BILIRUBIN,TOTAL 3.9 MG/DL (0.2-1.0); BLOOD UREA NITROGEN 48 mg/dL (7-18); CALCIUM 8.6 MG/DL (8.5-10.1); CARBON DIOXIDE 17 MMOL/L (21-32); CHLORIDE 117 MMOL/L (98-107); CREATININE 2.7 MG/DL (0.55-1.30); POTASSIUM 3.4 MMOL/L (3.5-5.1); SODIUM 148 MMOL/L (136-145)
[2018-10-15 06:56] LABS: BILIRUBIN,DIRECT 2.8 MG/DL (0.0-0.3)
--- NOTE | 2018-10-15 07:00 | General Progress Note ---
Assessment/Plan Problem List: (1) CAD (coronary artery disease) ICD Codes: I25.10 - Atherosclerotic heart disease of [place] coronary artery without angina pectoris SNOMED: 88009972 (2) [place] (3) Thrombocytopenia ICD Codes: D69.6 - Thrombocytopenia, unspecified SNOMED: 162718383 (4) Respiratory failure ICD Codes: J96.90 - Respiratory failure, unspecified, unspecified whether with hypoxia or hypercapnia SNOMED: 854992356 (5) Dysphagia ICD Codes: R13.10 - Dysphagia, unspecified SNOMED: 11171595, 070614573 (6) Elevated CEA ICD Codes: R97.0 - Elevated carcinoembryonic antigen [CEA] SNOMED: 659518491 (7) Shock liver ICD Codes: K72.00 - Acute and subacute hepatic failure without coma SNOMED: 085975473 (8) Respiratory disorder with ventilator dependence ICD Codes: J98.9 - Respiratory disorder, unspecified; Z99.11 - Dependence on respirator [ventilator] status SNOMED: 88483176, 738923139 (9) Liver cirrhosis ICD Codes: K74.60 - Unspecified cirrhosis of liver SNOMED: 99668826 (10) Normocytic anemia ICD Codes: D64.9 - Anemia, unspecified SNOMED: 047592070 Assessment/Plan NGTFon hold due to elevated residuals and weaning KUB>> reviewed ppi BID monitor H&H fu LFTS>> improving work up for elevated CEA when more stable lasix and albumin combination xifaxan and lactulose reglan Subjective ROS Limited/Unobtainable: No Allergies: Coded Allergies: No Known Allergies (Unverified , 05/06/18) Objective Last 24 Hour Vital Signs Date Time Temp Pulse Resp B/P (MAP) Pulse Ox O2 Delivery O2 Flow Rate FiO2 10/15/18 06:53 98 23 40 10/15/18 06:53 99 20 Mechanical Ventilator 40 10/15/18 06:30 101 19 122/52 (75) 98 10/15/18 06:15 102 20 114/57 (76) 98 10/15/18 06:00 107 20 115/60 (78) 98 10/15/18 05:30 107 20 115/60 (78) 98 10/15/18 05:13 109 21 40 10/15/18 05:00 109 22 129/61 (83) 98 10/15/18 05:00 20 Mechanical Ventilator 40 10/15/18 04:30 109 22 130/58 (82) 98 10/15/18 04:00 Mechanical Ventilator 10/15/18 04:00 104 10/15/18 04:00 Mechanical Ventilator 40 10/15/18 04:00 40 10/15/18 04:00 99.4 103 27 126/61 (82) 98 10/15/18 03:30 109 25 119/58 (78) 98 10/15/18 03:00 105 23 113/58 (76) 98 10/15/18 03:00 Mechanical Ventilator 40 10/15/18 02:39 110 20 40 10/15/18 02:30 115 20 122/65 (84) 98 10/15/18 02:00 115 20 111/60 (77) 98 10/15/18 02:00 20 Mechanical Ventilator 40 10/15/18 01:30 119 19 141/75 (97) 98 10/15/18 01:18 122 24 40 10/15/18 01:00 120 21 138/73 (94) 99 10/15/18 01:00 20 Mechanical Ventilator 40 10/15/18 00:44 Mechanical Ventilator 40 10/15/18 00:00 98.4 118 18 134/70 (91) 10/15/18 00:00 115 10/15/18 00:00 20 Mechanical Ventilator 40 10/15/18 00:00 40 10/15/18 00:00 Mechanical Ventilator 10/14/18 23:30 118 23 138/63 (88) 97 10/14/18 23:00 22 Mechanical Ventilator 40 10/14/18 23:00 117 22 116/58 (77) 97 10/14/18 22:40 120 24 40 10/14/18 22:30 118 22 126/59 (81) 97 10/14/18 22:00 24 Mechanical Ventilator 40 10/14/18 22:00 117 20 133/52 (79) 98 10/14/18 21:30 119 23 119/68 (85) 98 10/14/18 21:00 120 26 117/61 (79) 99 10/14/18 21:00 12 Mechanical Ventilator 40 10/14/18 20:46 117 23 40 10/14/18 20:38 123/71 10/14/18 20:30 115 21 117/61 (79) 100 10/14/18 20:00 Mechanical Ventilator 10/14/18 20:00 24 Mechanical Ventilator 40 10/14/18 20:00 99.1 120 26 124/69 (87) 99 10/14/18 20:00 118 10/14/18 20:00 40 10/14/18 19:24 121 22 40 10/14/18 19:00 Mechanical Ventilator 10/14/18 19:00 118 18 123/71 (88) 99 10/14/18 18:00 116 21 118/72 (87) 100 10/14/18 18:00 Mechanical Ventilator 10/14/18 17:00 112 16 123/62 (82) 100 10/14/18 17:00 Mechanical Ventilator 10/14/18 16:35 115 23 40 10/14/18 16:00 Mechanical Ventilator 10/14/18 16:00 40 10/14/18 16:00 Mechanical Ventilator 10/14/18 16:00 108 18 119/70 (86) 99 10/14/18 16:00 112 10/14/18 15:00 106 24 104/65 (78) 97 10/14/18 15:00 Mechanical Ventilator 10/14/18 14:30 103 24 40 10/14/18 14:16 105 10/14/18 14:16 Mechanical Ventilator 10/14/18 14:00 104 24 111/66 (81) 97 10/14/18 13:00 108 20 101/70 (80) 98 10/14/18 13:00 Mechanical Ventilator 10/14/18 13:00 Mechanical Ventilator 10/14/18 12:43 112 21 40 10/14/18 12:00 Mechanical Ventilator 10/14/18 12:00 114 10/14/18 12:00 97.6 112 20 116/74 (88) 98 10/14/18 12:00 Mechanical Ventilator 10/14/18 11:00 107 21 40 10/14/18 11:00 Mechanical Ventilator 10/14/18 11:00 106 21 104/66 (79) 98 10/14/18 10:00 140 21 127/77 (94) 98 10/14/18 10:00 Mechanical Ventilator 10/14/18 10:00 98.0 10/14/18 09:30 140 22 40 10/14/18 09:30 40 10/14/18 09:20 40 10/14/18 09:20 139 27 40 10/14/18 09:07 99 10/14/18 09:00 139 21 163/79 (107) 99 10/14/18 09:00 40 10/14/18 08:00 89 10/14/18 08:00 Mechanical Ventilator 10/14/18 08:00 40 10/14/18 08:00 97.8 97 20 120/63 (82) 97 10/14/18 07:01 99 23 40 10/14/18 07:00 20 Mechanical Ventilator 40 10/14/18 07:00 141 20 113/72 (86) 98 Intake and Output 10/14/18 10/15/18 18:59 06:59 Intake Total 1395.0 ml 801.0 ml Output Total 810 ml 425 ml Balance 585.0 ml 376.0 ml IV Total 1115.0 ml 781.0 ml Tube Feeding 280 ml 20 ml Output Urine Total 310 ml 425 ml Stool Total 500 ml # Bowel Movements 1 Laboratory Tests 10/14/18 12:15: HIV (1&2) Antibody Rapid Negative 10/15/18 05:00: White Blood Count [Pending], Red Blood Count [Pending], Hemoglobin [Pending], Hematocrit [Pending], Mean Corpuscular Volume [Pending], Mean Corpuscular Hemoglobin [Pending], Mean Corpuscular Hemoglobin Concent [Pending], Red Cell Distribution Width [Pending], Platelet Count [Pending], Mean Platelet Volume [ Pending], Neutrophils (%) (Auto) [Pending], Lymphocytes (%) (Auto) [Pending], Monocytes (%) (Auto) [Pending], Eosinophils (%) (Auto) [Pending], Basophils (%) (Auto) [Pending], Sodium Level 148H, Potassium Level 3.4L, Chloride Level 117H, Carbon Dioxide Level 17L, Anion Gap 14, Blood Urea Nitrogen 48H, Creatinine 2.7H , Estimat Glomerular Filtration Rate 18.1, Glucose Level 150H, Uric Acid 7.4H, Calcium Level 8.6, Phosphorus Level 4.0, Magnesium Level 1.7L, Total Bilirubin 3.9H, Direct Bilirubin 2.8H, Gamma Glutamyl Transpeptidase 722H, Aspartate Amino Transf (AST/SGOT) 164H, Alanine Aminotransferase (ALT/SGPT) 1132H, Alkaline Phosphatase 557H, Ammonia 65H, C-Reactive Protein, Quantitative 11.3H, Pro-B-Type Natriuretic Peptide 658H, Total Protein 4.8L, Albumin 1.8L, Globulin 3.0, Albumin/Globulin Ratio 0.6L, Digoxin Level [Pending] Height (Feet): 5 Height (Inches): 1.00 Weight (Pounds): 246 General Appearance: lethargic EENT: normal ENT inspection Neck: supple Cardiovascular: normal rate Respiratory/Chest: decreased breath sounds Abdomen: normal bowel sounds, non tender, soft Extremities: non-tender Samuel Reynolds MD Oct 15, 2018 07:00
--- NOTE | 2018-10-15 07:00 | NUR ---
Received Patient on Vent settings of AC 20, VT 500, FIO2 40%, PEEP +5. Pt intubated with ETT 7.0 at 21cm lipline, secured by anchorfast. Patient is alert and awake and follows commands. Breath sounds clear/diminished bilaterally, sxn minimal amounts of thin, rice secretions. Vent plugged into red outlet, ambubag at bedside. Pt resting comfortably, in no apparent distress at this time. Will continue to monitor patient.
--- NOTE | 2018-10-15 08:00 | NUR ---
NURSE NOTES: Report received from KARI Meneses.Received pt asleep but easily arousal to verbal and tactile stimuli. Afebrile at this time and orally intubated with ETT 7 and AC 20, Vt 500 Fio2 40%, Peep 5. GT feeding and Fentanyl held for weaning. Quiroz cath draining yellowish urine with no apparent sediment. Mouth care done, turned and repositioned.Kept clean and dry, call light within easy reach. Kept on close monitoring.
--- NOTE | 2018-10-15 08:55 | NUR ---
WEANING STARTED. Patient passed weaning criteria. Placed on PS 8 PEEP +5 40% fio2. Will continue to monitor.
[2018-10-15] MEDS ORDERED: Digoxin 0.5mg/2ml Inj IVP SCH (09:00)
--- NOTE | 2018-10-15 09:02 | NUR ---
NURSE NOTES: Weaning started and pt tolerated well.Will continue to monitor
[2018-10-15] MEDS: Pantoprazole Inj IVP SCH ×2 (09:14→21:26)
[2018-10-15] MEDS: Amiodarone 200mg tab NG SCH (09:15)
[2018-10-15] MEDS: Lactulose 20gm/30ml UDC NG SCH ×3 (09:15→17:46)
--- NOTE | 2018-10-15 10:01 | NUR ---
NURSE NOTES: Turned and repositioned.Seen by Dr Cueto, will follow up with new orders,kept clean and dry
[2018-10-15] MEDS: Metoclopramide 10mg/2ml Inj IVP SCH ×3 (10:40→23:30)
--- NOTE | 2018-10-15 10:48 | Infectious Diseases Prog Note ---
Assessment/Plan Assessment/Plan A: 1. Septic Shock improving.culture are negative so far 2. May have pneumonia, especially aspiration pneumonia. 3. Multiorgan failure including acute renal failure and hypercapnic respiratory failure. 4. Diabetes mellitus. 5. Obesity. 6. Lactic acidosis. 7. Anemia.s/p transfusion 8. Cirrhosis. 9. Enteritis, ileus RECOMMENDATION: continue with Zosyn f/u CBC Subjective ROS Limited/Unobtainable: Yes Respiratory: Reports: other - on weaning process Allergies: Coded Allergies: No Known Allergies (Unverified , 05/06/18) Objective Vital Signs Last 24 Hour Vital Signs Date Time Temp Pulse Resp B/P (MAP) Pulse Ox O2 Delivery O2 Flow Rate FiO2 10/15/18 10:00 110 26 118/62 (80) 98 10/15/18 10:00 Mechanical Ventilator 10/15/18 09:15 111 10/15/18 09:00 111 27 118/62 (80) 98 10/15/18 08:55 108 22 40 40 10/15/18 08:00 98.4 98 27 121/61 (81) 98 10/15/18 08:00 40 10/15/18 08:00 111 27 118/62 (80) 98 10/15/18 08:00 103 10/15/18 08:00 Mechanical Ventilator 10/15/18 07:00 102 20 122/63 (82) 100 10/15/18 06:53 98 23 40 10/15/18 06:53 99 20 Mechanical Ventilator 40 10/15/18 06:30 101 19 122/52 (75) 98 10/15/18 06:15 102 20 114/57 (76) 98 10/15/18 06:00 107 20 115/60 (78) 98 10/15/18 05:30 107 20 115/60 (78) 98 10/15/18 05:13 109 21 40 10/15/18 05:00 109 22 129/61 (83) 98 10/15/18 05:00 20 Mechanical Ventilator 40 10/15/18 04:30 109 22 130/58 (82) 98 10/15/18 04:00 Mechanical Ventilator 10/15/18 04:00 104 10/15/18 04:00 Mechanical Ventilator 40 10/15/18 04:00 40 10/15/18 04:00 99.4 103 27 126/61 (82) 98 10/15/18 03:30 109 25 119/58 (78) 98 10/15/18 03:00 105 23 113/58 (76) 98 10/15/18 03:00 Mechanical Ventilator 40 10/15/18 02:39 110 20 40 10/15/18 02:30 115 20 122/65 (84) 98 10/15/18 02:00 115 20 111/60 (77) 98 10/15/18 02:00 20 Mechanical Ventilator 40 10/15/18 01:30 119 19 141/75 (97) 98 10/15/18 01:18 122 24 40 10/15/18 01:00 120 21 138/73 (94) 99 10/15/18 01:00 20 Mechanical Ventilator 40 10/15/18 00:44 Mechanical Ventilator 40 10/15/18 00:00 98.4 118 18 134/70 (91) 10/15/18 00:00 115 10/15/18 00:00 20 Mechanical Ventilator 40 10/15/18 00:00 40 10/15/18 00:00 Mechanical Ventilator 10/14/18 23:30 118 23 138/63 (88) 97 10/14/18 23:00 22 Mechanical Ventilator 40 10/14/18 23:00 117 22 116/58 (77) 97 10/14/18 22:40 120 24 40 10/14/18 22:30 118 22 126/59 (81) 97 10/14/18 22:00 24 Mechanical Ventilator 40 10/14/18 22:00 117 20 133/52 (79) 98 10/14/18 21:30 119 23 119/68 (85) 98 10/14/18 21:00 120 26 117/61 (79) 99 10/14/18 21:00 12 Mechanical Ventilator 40 10/14/18 20:46 117 23 40 10/14/18 20:38 123/71 10/14/18 20:30 115 21 117/61 (79) 100 10/14/18 20:00 Mechanical Ventilator 10/14/18 20:00 24 Mechanical Ventilator 40 10/14/18 20:00 99.1 120 26 124/69 (87) 99 10/14/18 20:00 118 10/14/18 20:00 40 10/14/18 19:24 121 22 40 10/14/18 19:00 Mechanical Ventilator 10/14/18 19:00 118 18 123/71 (88) 99 10/14/18 18:00 116 21 118/72 (87) 100 10/14/18 18:00 Mechanical Ventilator 10/14/18 17:00 112 16 123/62 (82) 100 10/14/18 17:00 Mechanical Ventilator 10/14/18 16:35 115 23 40 10/14/18 16:00 Mechanical Ventilator 10/14/18 16:00 40 10/14/18 16:00 Mechanical Ventilator 10/14/18 16:00 108 18 119/70 (86) 99 10/14/18 16:00 112 10/14/18 15:00 106 24 104/65 (78) 97 10/14/18 15:00 Mechanical Ventilator 10/14/18 14:30 103 24 40 10/14/18 14:16 105 10/14/18 14:16 Mechanical Ventilator 10/14/18 14:00 104 24 111/66 (81) 97 10/14/18 13:00 108 20 101/70 (80) 98 10/14/18 13:00 Mechanical Ventilator 10/14/18 13:00 Mechanical Ventilator 10/14/18 12:43 112 21 40 10/14/18 12:00 Mechanical Ventilator 10/14/18 12:00 114 10/14/18 12:00 97.6 112 20 116/74 (88) 98 10/14/18 12:00 Mechanical Ventilator 10/14/18 11:00 107 21 40 10/14/18 11:00 Mechanical Ventilator 10/14/18 11:00 106 21 104/66 (79) 98 Height (Feet): 5 Height (Inches): 1.00 Weight (Pounds): 246 HEENT: other - orally intubated Respiratory/Chest: rhonchi - bilaterally, other - on ventilator Cardiovascular: tachycardia, other - femoral line Abdomen: soft, non tender, other - orogastric tube Extremities: other - generalized edema Neurologic/Psychiatric: alert, responsive Laboratory Tests Test 10/14/18 12:15 10/15/18 05:00 HIV (1&2) Antibody Rapid Negative (NEGATIVE) White Blood Count Pending Red Blood Count Pending Hemoglobin Pending Hematocrit Pending Mean Corpuscular Volume Pending Mean Corpuscular Hemoglobin Pending Mean Corpuscular Hemoglobin Concent Pending Red Cell Distribution Width Pending Platelet Count Pending Mean Platelet Volume Pending Neutrophils (%) (Auto) Pending Lymphocytes (%) (Auto) Pending Monocytes (%) (Auto) Pending Eosinophils (%) (Auto) Pending Basophils (%) (Auto) Pending Sodium Level 148 MMOL/L (136-145) H Potassium Level 3.4 MMOL/L (3.5-5.1) L Chloride Level 117 MMOL/L (98-107) H Carbon Dioxide Level 17 MMOL/L (21-32) L Anion Gap 14 mmol/L (5-15) Blood Urea Nitrogen 48 mg/dL (7-18) H Creatinine 2.7 MG/DL (0.55-1.30) H Estimat Glomerular Filtration Rate 18.1 mL/min (>60) Glucose Level 150 MG/DL (74-106) H Uric Acid 7.4 MG/DL (2.6-7.2) H Calcium Level 8.6 MG/DL (8.5-10.1) Phosphorus Level 4.0 MG/DL (2.5-4.9) Magnesium Level 1.7 MG/DL (1.8-2.4) L Total Bilirubin 3.9 MG/DL (0.2-1.0) H Direct Bilirubin 2.8 MG/DL (0.0-0.3) H Gamma Glutamyl Transpeptidase 722 U/L (5-85) H Aspartate Amino Transf (AST/SGOT) 164 U/L (15-37) H Alanine Aminotransferase (ALT/SGPT) 1132 U/L (12-78) H Alkaline Phosphatase 557 U/L (46-116) H Ammonia 65 umol/L (11-32) H C-Reactive Protein, Quantitative 11.3 mg/dL (0.00-0.90) H Pro-B-Type Natriuretic Peptide 658 pg/mL (0-125) H Total Protein 4.8 G/DL (6.4-8.2) L Albumin 1.8 G/DL (3.4-5.0) L Globulin 3.0 g/dL Albumin/Globulin Ratio 0.6 (1.0-2.7) L Digoxin Level 1.0 NG/ML (0.9-2.0) Current Medications Medications (Trade) Dose Ordered Sig/Patricia Route PRN Reason Start Time Stop Time Status Last Admin Dose Admin Acetaminophen (Tylenol) 650 mg Q4H PRN ORAL Mild Pain/Temp > 100.5 10/09/18 14:15 11/08/18 14:14 10/11/18 19:43 Amiodarone HCl (Cordarone) 200 mg EVERY 12 HOURS NG 10/13/18 21:00 11/12/18 20:59 10/15/18 09:15 Chlorhexidine Gluconate (Nguyen-Hex 2%) 1 applic DAILY@2000 TOPIC 10/10/18 20:00 11/09/18 19:59 10/14/18 20:38 Dextrose (Dextrose 50%) 25 ml Q30M PRN IV Hypoglycemia 10/11/18 13:45 11/10/18 13:44 10/13/18 05:57 Dextrose (Dextrose 50%) 50 ml Q30M PRN IV Hypoglycemia 10/11/18 13:45 11/10/18 13:44 Digoxin (Lanoxin) 0.125 mg DAILY IVP 10/15/18 09:00 11/14/18 08:59 10/15/18 09:15 Diphenhydramine HCl (Benadryl) 25 mg Q6H PRN IVP Itching 10/09/18 14:30 11/08/18 14:29 Fentanyl Citrate 1000 mcg/Sodium Chloride 100 ml @ 0 mls/hr Q24H IV 10/13/18 23:00 10/20/18 22:59 10/15/18 00:44 Insulin Aspart (NovoLOG) BEFORE MEALS AND HS SUBQ 10/11/18 16:30 11/10/18 16:29 10/15/18 05:37 Iron Sucrose 100 mg/Sodium Chloride 60 ml @ 240 mls/hr BEDTIME IV 10/12/18 21:00 10/16/18 21:14 10/14/18 20:38 Lactulose (Cephulac) 30 gm THREE TIMES A DAY NG 10/14/18 18:00 11/12/18 17:59 10/15/18 09:15 Metoclopramide HCl (Reglan) 5 mg Q6H IVP 10/15/18 11:30 11/13/18 11:29 10/15/18 10:40 Midazolam HCl (Versed 2mg/2ml vial) 1 mg Q2H PRN IVP For Anxiety 10/12/18 14:30 11/11/18 14:29 Morphine Sulfate (Morphine Sulfate) 2 mg Q4H PRN IVP Severe Pain (Pain Scale 7-10) 10/09/18 14:15 10/16/18 14:14 10/14/18 09:30 Norepinephrine Bitartrate 16 mg/ Sodium Chloride 500 ml @ 0 mls/hr Q24H IV 10/09/18 21:00 11/08/18 20:59 10/11/18 17:56 Pantoprazole (Protonix) 40 mg EVERY 12 HOURS IVP 10/10/18 21:00 11/09/18 20:59 10/15/18 09:14 Piperacillin Sod/ Tazobactam Sod 3.375 gm/Dextrose 110 ml @ 27.5 mls/hr Q12H IVPB 10/11/18 18:00 10/18/18 17:59 10/15/18 05:35 Potassium Chloride 100 ml @ 100 mls/hr Q1H IVPB 10/15/18 10:00 10/15/18 11:59 10/15/18 10:39 Rifaximin (Xifaxan) 550 mg EVERY 12 HOURS ORAL 10/12/18 21:00 10/19/18 20:59 10/15/18 09:17 Sodium Chloride 1,000 ml @ 50 mls/hr Q20H IV 10/14/18 13:45 11/10/18 13:44 10/14/18 14:33 Vasopressin 100 units/Sodium Chloride 105 ml @ 2.52 mls/hr Q24H IV 10/10/18 14:00 11/09/18 13:59 10/12/18 08:06 Wesley Akers MD Oct 15, 2018 10:48
--- NOTE | 2018-10-15 11:04 | NUR ---
NURSE NOTES: Seen by Dr Delarosa will follow up with new orders
--- NOTE | 2018-10-15 11:37 | Pulmonolgy Critical Care Note ---
Critical Care - Asmt/Plan Problems: (1) Respiratory disorder with ventilator dependence (2) Septic shock (3) Pneumonia (4) Liver cirrhosis Assessment/Plan: ASSESSMENT: The patient is a 58-year-old female with a history of obesity, diabetes, hypertension, hyperlipidemia, and sciatica with chronic low back pain , DDD/DJD, presenting after a mechanical fall with altered mental status and confusion with likely sepsis and multisystem organ failure. PROBLEM LIST: 1. VDRF 2. Sepsis 3. Shock, hypovolemic and distributive. 4. Multisystem organ failure. 5. Lactic acidosis. 6. Anion gap metabolic acidosis. 7. JONNATHAN. 7. Abnormal LFTs, likely shock liver. 8. Abnormal troponin, likely demand ischemia. 9. Elevated D-dimer and PASP concerning for an acute PE 10. Obesity. 11. Diabetes. 12. Hypertension. 13. Chronic low back pain and sciatica. 14. Anemia/FOBT + 15. Thrombocytopenia 16. AFcRVR now in NSR TREATMENT PLAN: 1. SBT 2. ABG 3. Possible extubation 4. CXR 5. Zosyn (D7) per ID 6. Off pressors 7. Hold sedation for possible extubation 8. Follow up cards recs 9. TF's held for possible extubation 10. DVT prophylaxis: hep held 2/2 thrombocytopenia, ? HIT Ab panel, when able will need a VQ or CT-A 11. SSI 12. F/U clinical program consultant recs 13. Prognosis poor 14. 40 minutes of critical care time was spent. D/R RN, @ bedside and consultants Critical Care - Objective Last 24 Hour Vital Signs Date Time Temp Pulse Resp B/P (MAP) Pulse Ox O2 Delivery O2 Flow Rate FiO2 10/15/18 11:03 115 25 40 10/15/18 11:00 115 26 150/64 (92) 98 10/15/18 10:00 110 26 118/62 (80) 98 10/15/18 10:00 Mechanical Ventilator 10/15/18 09:15 111 10/15/18 09:00 111 27 118/62 (80) 98 10/15/18 08:55 108 22 40 40 10/15/18 08:00 98.4 98 27 121/61 (81) 98 10/15/18 08:00 40 10/15/18 08:00 111 27 118/62 (80) 98 10/15/18 08:00 103 10/15/18 08:00 Mechanical Ventilator 10/15/18 07:00 102 20 122/63 (82) 100 10/15/18 06:53 98 23 40 10/15/18 06:53 99 20 Mechanical Ventilator 40 10/15/18 06:30 101 19 122/52 (75) 98 10/15/18 06:15 102 20 114/57 (76) 98 10/15/18 06:00 107 20 115/60 (78) 98 10/15/18 05:30 107 20 115/60 (78) 98 10/15/18 05:13 109 21 40 10/15/18 05:00 109 22 129/61 (83) 98 10/15/18 05:00 20 Mechanical Ventilator 40 10/15/18 04:30 109 22 130/58 (82) 98 10/15/18 04:00 Mechanical Ventilator 10/15/18 04:00 104 10/15/18 04:00 Mechanical Ventilator 40 10/15/18 04:00 40 10/15/18 04:00 99.4 103 27 126/61 (82) 98 10/15/18 03:30 109 25 119/58 (78) 98 10/15/18 03:00 105 23 113/58 (76) 98 10/15/18 03:00 Mechanical Ventilator 40 10/15/18 02:39 110 20 40 10/15/18 02:30 115 20 122/65 (84) 98 10/15/18 02:00 115 20 111/60 (77) 98 10/15/18 02:00 20 Mechanical Ventilator 40 10/15/18 01:30 119 19 141/75 (97) 98 10/15/18 01:18 122 24 40 10/15/18 01:00 120 21 138/73 (94) 99 10/15/18 01:00 20 Mechanical Ventilator 40 10/15/18 00:44 Mechanical Ventilator 40 10/15/18 00:00 98.4 118 18 134/70 (91) 10/15/18 00:00 115 10/15/18 00:00 20 Mechanical Ventilator 40 10/15/18 00:00 40 10/15/18 00:00 Mechanical Ventilator 10/14/18 23:30 118 23 138/63 (88) 97 10/14/18 23:00 22 Mechanical Ventilator 40 10/14/18 23:00 117 22 116/58 (77) 97 10/14/18 22:40 120 24 40 10/14/18 22:30 118 22 126/59 (81) 97 10/14/18 22:00 24 Mechanical Ventilator 40 10/14/18 22:00 117 20 133/52 (79) 98 10/14/18 21:30 119 23 119/68 (85) 98 10/14/18 21:00 120 26 117/61 (79) 99 10/14/18 21:00 12 Mechanical Ventilator 40 10/14/18 20:46 117 23 40 10/14/18 20:38 123/71 10/14/18 20:30 115 21 117/61 (79) 100 10/14/18 20:00 Mechanical Ventilator 10/14/18 20:00 24 Mechanical Ventilator 40 10/14/18 20:00 99.1 120 26 124/69 (87) 99 10/14/18 20:00 118 10/14/18 20:00 40 10/14/18 19:24 121 22 40 10/14/18 19:00 Mechanical Ventilator 10/14/18 19:00 118 18 123/71 (88) 99 10/14/18 18:00 116 21 118/72 (87) 100 10/14/18 18:00 Mechanical Ventilator 10/14/18 17:00 112 16 123/62 (82) 100 10/14/18 17:00 Mechanical Ventilator 10/14/18 16:35 115 23 40 10/14/18 16:00 Mechanical Ventilator 10/14/18 16:00 40 10/14/18 16:00 Mechanical Ventilator 10/14/18 16:00 108 18 119/70 (86) 99 10/14/18 16:00 112 10/14/18 15:00 106 24 104/65 (78) 97 10/14/18 15:00 Mechanical Ventilator 10/14/18 14:30 103 24 40 10/14/18 14:16 105 10/14/18 14:16 Mechanical Ventilator 10/14/18 14:00 104 24 111/66 (81) 97 10/14/18 13:00 108 20 101/70 (80) 98 10/14/18 13:00 Mechanical Ventilator 10/14/18 13:00 Mechanical Ventilator 10/14/18 12:43 112 21 40 10/14/18 12:00 Mechanical Ventilator 10/14/18 12:00 114 10/14/18 12:00 97.6 112 20 116/74 (88) 98 10/14/18 12:00 Mechanical Ventilator Status: awake - on vent Condition: improving HEENT: atraumatic, normocephalic Lungs: clear Heart: HR/BP stable Abdomen: soft, non-tender, active bowel sounds Extremities: no C/C/E Accucheck: 145 Blood Sugars: BS controlled Critical Care - Subjective ROS Limited/Unobtainable: Yes ICU Day: 7 Intubation Day: 7 Interval Events: Agnieszka SBT Awake off pressors Condition: improving IV Access: PICC EKG Rhythm: Sinus Tachycardia FI02: 40 Vent Support Breath Rate: 20 Vent Support Mode: CPAP Vent Tidal Volume: 500 Sputum Amount: Small PEEP: 5.0 PIP: 15 Fluids: fent Tube Feeding Amount: 20 I&O: Intake and Output 10/14/18 10/15/18 18:59 06:59 Intake Total 1395.0 ml 801.0 ml Output Total 810 ml 425 ml Balance 585.0 ml 376.0 ml IV Total 1115.0 ml 781.0 ml Tube Feeding 280 ml 20 ml Output Urine Total 310 ml 425 ml Stool Total 500 ml # Bowel Movements 1 Subjective: JASON ET-Tube: 7.0 ET Position: 21 Labs: Laboratory Tests Test 10/14/18 12:15 10/15/18 05:00 HIV (1&2) Antibody Rapid Negative (NEGATIVE) White Blood Count Pending Red Blood Count Pending Hemoglobin Pending Hematocrit Pending Mean Corpuscular Volume Pending Mean Corpuscular Hemoglobin Pending Mean Corpuscular Hemoglobin Concent Pending Red Cell Distribution Width Pending Platelet Count Pending Mean Platelet Volume Pending Neutrophils (%) (Auto) Pending Lymphocytes (%) (Auto) Pending Monocytes (%) (Auto) Pending Eosinophils (%) (Auto) Pending Basophils (%) (Auto) Pending Sodium Level 148 MMOL/L (136-145) H Potassium Level 3.4 MMOL/L (3.5-5.1) L Chloride Level 117 MMOL/L (98-107) H Carbon Dioxide Level 17 MMOL/L (21-32) L Anion Gap 14 mmol/L (5-15) Blood Urea Nitrogen 48 mg/dL (7-18) H Creatinine 2.7 MG/DL (0.55-1.30) H Estimat Glomerular Filtration Rate 18.1 mL/min (>60) Glucose Level 150 MG/DL (74-106) H Uric Acid 7.4 MG/DL (2.6-7.2) H Calcium Level 8.6 MG/DL (8.5-10.1) Phosphorus Level 4.0 MG/DL (2.5-4.9) Magnesium Level 1.7 MG/DL (1.8-2.4) L Total Bilirubin 3.9 MG/DL (0.2-1.0) H Direct Bilirubin 2.8 MG/DL (0.0-0.3) H Gamma Glutamyl Transpeptidase 722 U/L (5-85) H Aspartate Amino Transf (AST/SGOT) 164 U/L (15-37) H Alanine Aminotransferase (ALT/SGPT) 1132 U/L (12-78) H Alkaline Phosphatase 557 U/L (46-116) H Ammonia 65 umol/L (11-32) H C-Reactive Protein, Quantitative 11.3 mg/dL (0.00-0.90) H Pro-B-Type Natriuretic Peptide 658 pg/mL (0-125) H Total Protein 4.8 G/DL (6.4-8.2) L Albumin 1.8 G/DL (3.4-5.0) L Globulin 3.0 g/dL Albumin/Globulin Ratio 0.6 (1.0-2.7) L Digoxin Level 1.0 NG/ML (0.9-2.0) Renato Delarosa MD Oct 15, 2018 11:37
[2018-10-15] MEDS ORDERED: Lidocaine 1% Plain 30 ml INJ PRN (11:45)
[2018-10-15] MEDS ORDERED: Heparin1,000 units/500ml Premix(Conc:2 units/ml) IV PRN (11:48)
--- NOTE | 2018-10-15 12:15 | NUR ---
NURSE NOTES: Pt turned and repositioned,HOB elevated to prevent aspiration. Kept on close monitorin
[2018-10-15 12:25] LABS: HEMATOCRIT 32.6 % (37.0-47.0); HEMOGLOBIN 10.6 G/DL (12.0-16.0); MEAN CORPUSCULAR VOLUME 94 FL (80-99); PLATELET COUNT 62 K/UL (150-450); RED BLOOD COUNT 3.46 M/UL (4.20-5.40); RED CELL DISTRIBUTION WIDTH 17.2 % (11.6-14.8); WHITE BLOOD COUNT 14.7 K/UL (4.8-10.8)
--- NOTE | 2018-10-15 12:52 | NUR ---
RADIOLOGY DEPT CHEST X-RAY DONE.-P.DYE
[2018-10-15] MEDS: NS IV SCH (13:05)
[2018-10-15] MEDS: VASOPRESSIN IV SCH (13:05)
--- NOTE | 2018-10-15 13:08 | NUR ---
NURSE NOTES: Pt placed back on AC mode due to Tachycardia 137 and SBP 180 Addendum: 10/15/18 at 1948 by Abbi Garner RN Dr [place] underwood aware
--- NOTE | 2018-10-15 13:15 | NUR ---
WEANING FAILED. HR increased to >125BPM. Placed back on previous settings KARI hart.
--- NOTE | 2018-10-15 13:29 | NUR ---
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 98.4 HR 115 RR 26 B/P 150/64 CPAP PEEP 5 PS 15 FIO2 40% CBC 14.7 NA 148 K 3.4 BUN 48 CR 2.7 MG 1.7 AST 164 ALT 1132 ALK PHOS 557 AMMONIA 65 IS: DIGOXIN IV ZOSYN IV PROTONIX IV IVF NS @ 50ML/HR IRON IV LACTULOSE ICU STATUS
--- NOTE | 2018-10-15 13:40 | Nephrology Progress Note ---
Assessment/Plan Problem List: (1) JONNATHAN (acute kidney injury) (2) Shock liver (3) Septic shock (4) Respiratory disorder with ventilator dependence Assessment - Acute Oliguric Renal Failure Cr down to 2.7 - Respiratory disorder with ventilator dependence - Septic shock , Leukocytosis - Pneumonia - Liver cirrhosis - Obese - Anemia . Plan transfused 2 units previously down on IV fluid Hemodynamic support Pulmunary support Monitor renal parameters avoid nephrotoxics as best as possible per orders discussed with RN Subjective ROS Limited/Unobtainable: Yes Objective Objective Last 24 Hour Vital Signs Date Time Temp Pulse Resp B/P (MAP) Pulse Ox O2 Delivery O2 Flow Rate FiO2 10/15/18 12:00 Mechanical Ventilator 10/15/18 11:03 115 25 40 10/15/18 11:00 115 26 150/64 (92) 98 10/15/18 10:00 110 26 118/62 (80) 98 10/15/18 10:00 Mechanical Ventilator 10/15/18 09:15 111 10/15/18 09:00 111 27 118/62 (80) 98 10/15/18 08:55 108 22 40 40 10/15/18 08:00 98.4 98 27 121/61 (81) 98 10/15/18 08:00 40 10/15/18 08:00 111 27 118/62 (80) 98 10/15/18 08:00 103 10/15/18 08:00 Mechanical Ventilator 10/15/18 07:00 102 20 122/63 (82) 100 10/15/18 06:53 98 23 40 10/15/18 06:53 99 20 Mechanical Ventilator 40 10/15/18 06:30 101 19 122/52 (75) 98 10/15/18 06:15 102 20 114/57 (76) 98 10/15/18 06:00 107 20 115/60 (78) 98 10/15/18 05:30 107 20 115/60 (78) 98 10/15/18 05:13 109 21 40 10/15/18 05:00 109 22 129/61 (83) 98 10/15/18 05:00 20 Mechanical Ventilator 40 10/15/18 04:30 109 22 130/58 (82) 98 10/15/18 04:00 Mechanical Ventilator 10/15/18 04:00 104 10/15/18 04:00 Mechanical Ventilator 40 10/15/18 04:00 40 10/15/18 04:00 99.4 103 27 126/61 (82) 98 10/15/18 03:30 109 25 119/58 (78) 98 10/15/18 03:00 105 23 113/58 (76) 98 10/15/18 03:00 Mechanical Ventilator 40 10/15/18 02:39 110 20 40 10/15/18 02:30 115 20 122/65 (84) 98 10/15/18 02:00 115 20 111/60 (77) 98 10/15/18 02:00 20 Mechanical Ventilator 40 10/15/18 01:30 119 19 141/75 (97) 98 10/15/18 01:18 122 24 40 10/15/18 01:00 120 21 138/73 (94) 99 10/15/18 01:00 20 Mechanical Ventilator 40 10/15/18 00:44 Mechanical Ventilator 40 10/15/18 00:00 98.4 118 18 134/70 (91) 10/15/18 00:00 115 10/15/18 00:00 20 Mechanical Ventilator 40 10/15/18 00:00 40 10/15/18 00:00 Mechanical Ventilator 10/14/18 23:30 118 23 138/63 (88) 97 10/14/18 23:00 22 Mechanical Ventilator 40 10/14/18 23:00 117 22 116/58 (77) 97 10/14/18 22:40 120 24 40 10/14/18 22:30 118 22 126/59 (81) 97 10/14/18 22:00 24 Mechanical Ventilator 40 10/14/18 22:00 117 20 133/52 (79) 98 10/14/18 21:30 119 23 119/68 (85) 98 10/14/18 21:00 120 26 117/61 (79) 99 10/14/18 21:00 12 Mechanical Ventilator 40 10/14/18 20:46 117 23 40 10/14/18 20:38 123/71 10/14/18 20:30 115 21 117/61 (79) 100 10/14/18 20:00 Mechanical Ventilator 10/14/18 20:00 24 Mechanical Ventilator 40 10/14/18 20:00 99.1 120 26 124/69 (87) 99 10/14/18 20:00 118 10/14/18 20:00 40 10/14/18 19:24 121 22 40 10/14/18 19:00 Mechanical Ventilator 10/14/18 19:00 118 18 123/71 (88) 99 10/14/18 18:00 116 21 118/72 (87) 100 10/14/18 18:00 Mechanical Ventilator 10/14/18 17:00 112 16 123/62 (82) 100 10/14/18 17:00 Mechanical Ventilator 10/14/18 16:35 115 23 40 10/14/18 16:00 Mechanical Ventilator 10/14/18 16:00 40 10/14/18 16:00 Mechanical Ventilator 10/14/18 16:00 108 18 119/70 (86) 99 10/14/18 16:00 112 10/14/18 15:00 106 24 104/65 (78) 97 10/14/18 15:00 Mechanical Ventilator 10/14/18 14:30 103 24 40 10/14/18 14:16 105 10/14/18 14:16 Mechanical Ventilator 10/14/18 14:00 104 24 111/66 (81) 97 Intake and Output 10/14/18 10/15/18 18:59 06:59 Intake Total 1395.0 ml 801.0 ml Output Total 810 ml 425 ml Balance 585.0 ml 376.0 ml IV Total 1115.0 ml 781.0 ml Tube Feeding 280 ml 20 ml Output Urine Total 310 ml 425 ml Stool Total 500 ml # Bowel Movements 1 Laboratory Tests 10/15/18 05:00: Sodium Level 148H, Potassium Level 3.4L, Chloride Level 117H, Carbon Dioxide Level 17L, Anion Gap 14, Blood Urea Nitrogen 48H, Creatinine 2.7H, Estimat Glomerular Filtration Rate 18.1, Glucose Level 150H, Uric Acid 7.4H, Calcium Level 8.6, Phosphorus Level 4.0, Magnesium Level 1.7L, Total Bilirubin 3.9H, Direct Bilirubin 2.8H, Gamma Glutamyl Transpeptidase 722H, Aspartate Amino Transf (AST/SGOT) 164H, Alanine Aminotransferase (ALT/SGPT) 1132H, Alkaline Phosphatase 557H, Ammonia 65H, C-Reactive Protein, Quantitative 11.3H, Pro-B- Type Natriuretic Peptide 658H, Total Protein 4.8L, Albumin 1.8L, Globulin 3.0, Albumin/Globulin Ratio 0.6L, Digoxin Level 1.0 10/15/18 11:55: White Blood Count 14.7H, Red Blood Count 3.46L, Hemoglobin 10.6L, Hematocrit 32.6L, Mean Corpuscular Volume 94, Mean Corpuscular Hemoglobin 30.7, Mean Corpuscular Hemoglobin Concent 32.6, Red Cell Distribution Width 17.2H, Platelet Count 62L, Mean Platelet Volume 6.2L, Neutrophils (%) (Auto) , Lymphocytes (%) (Auto) , Monocytes (%) (Auto) , Eosinophils (%) (Auto) , Basophils (%) (Auto) , Differential Total Cells Counted 100, Neutrophils % ( Manual) 81H, Lymphocytes % (Manual) 6L, Monocytes % (Manual) 4, Eosinophils % ( Manual) 3, Basophils % (Manual) 0, Band Neutrophils 6, Platelet Estimate DecreasedL, Platelet Morphology Normal, Anisocytosis 1+ Height (Feet): 5 Height (Inches): 1.00 Weight (Pounds): 246 General Appearance: no apparent distress Cardiovascular: tachycardia Respiratory/Chest: decreased breath sounds Abdomen: distended Extremities: other - edematous Alex Cueto MD Oct 15, 2018 13:40
--- NOTE | 2018-10-15 14:10 | NUR ---
NURSE NOTES: Pt asleep, no acute distress. Picc line placement done and femoral line D/C. Family at bedside,kept clean and dry
--- NOTE | 2018-10-15 15:22 | Diagnostic Imaging Report ---
Indications: Needs long-term IV access Technique: Procedure performed at bedside. Procedural timeout performed. Ultrasound confirms patent compressible left basilic vein. Total sterile technique, including sterile probe cover and sterile gel, sterile gloves, hand hygiene, hat, mask,, sterile gown, large sterile drape, and preparation with 2% chlorhexidine utilized. Local anesthesia with 1% lidocaine. Under real-time ultrasound guidance, puncture left basilic vein using 21-gauge needle, passage 0.018 guidewire, exchange for 5 [place] peel-away sheath. 5 [place] Bard dual-lumen power PICC cut to 49 cm. It was inserted through the peel-away sheath. Peel-away sheath and guidewire removed. Catheter fixed to the skin. Both catheter ports aspirated and flushed. Patient tolerated procedure well, without immediate complication. Followup chest x-ray obtained, documents catheter tip position at the high right atrium Impression: Successful bedside placement of left arm PICC under sonographic guidance, as described above.
--- NOTE | 2018-10-15 15:45 | Diagnostic Imaging Report ---
Indication: Dyspnea Technique: One view of the chest Comparison: 10/12/2018 Findings: Stable satisfactory positions of endotracheal and nasogastric tubes. Low lung volumes again noted. There is some atelectasis in the right lung base. The heart is borderline enlarged. Impression: Right basilar atelectasis. 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
--- NOTE | 2018-10-15 16:01 | NUR ---
NURSE NOTES: Adls done,mouth care done,kept clean and dry,will continue to monitor
--- NOTE | 2018-10-15 16:19 | Cardiac Electrophysiology PN ---
Assessment/Plan Assessment/Plan 1. Atrial fib with RVR. Can't use Betablocker or CA janet for hypotension. Change Dig 0.125 daily to NG and decrease amiodarone to 200 daily. In SR 2.S/P Septic shock. The patient is on broad spectrum IV antibiotic. Off pressors 3. Troponin leak. The levels are flat and likely due to this patient's sepsis and septic shock. Her echocardiogram showed ejection fraction 60% to 65% and EKG showed no acute ischemic changes. 4. Respiratory failure on the Vent 5. Diabetes. 6. Renal failure. 7. Morbid obesity. 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 No more Atrial fib Objective Last 24 Hour Vital Signs Date Time Temp Pulse Resp B/P (MAP) Pulse Ox O2 Delivery O2 Flow Rate FiO2 10/15/18 15:22 111 20 40 10/15/18 15:00 112 11 122/58 (79) 98 10/15/18 14:00 119 21 135/63 (87) 99 10/15/18 13:02 125 29 40 10/15/18 13:00 126 23 180/88 (118) 98 10/15/18 13:00 40 10/15/18 13:00 126 23 180/88 (118) 98 10/15/18 12:00 40 10/15/18 12:00 98.0 98 23 148/71 (96) 98 10/15/18 12:00 97.6 116 23 148/71 (96) 99 10/15/18 12:00 117 10/15/18 12:00 Mechanical Ventilator 10/15/18 11:03 115 25 40 10/15/18 11:00 115 26 150/64 (92) 98 10/15/18 10:00 110 26 118/62 (80) 98 10/15/18 10:00 Mechanical Ventilator 10/15/18 09:15 111 10/15/18 09:00 40 10/15/18 09:00 111 27 118/62 (80) 98 10/15/18 09:00 98 10/15/18 08:55 108 22 40 40 10/15/18 08:00 98.4 98 27 121/61 (81) 98 10/15/18 08:00 40 10/15/18 08:00 111 27 118/62 (80) 98 10/15/18 08:00 103 10/15/18 08:00 Mechanical Ventilator 10/15/18 07:00 102 20 122/63 (82) 100 10/15/18 06:53 98 23 40 10/15/18 06:53 99 20 Mechanical Ventilator 40 10/15/18 06:30 101 19 122/52 (75) 98 10/15/18 06:15 102 20 114/57 (76) 98 10/15/18 06:00 107 20 115/60 (78) 98 10/15/18 05:30 107 20 115/60 (78) 98 10/15/18 05:13 109 21 40 10/15/18 05:00 109 22 129/61 (83) 98 10/15/18 05:00 20 Mechanical Ventilator 40 10/15/18 04:30 109 22 130/58 (82) 98 10/15/18 04:00 Mechanical Ventilator 10/15/18 04:00 104 10/15/18 04:00 Mechanical Ventilator 40 10/15/18 04:00 40 10/15/18 04:00 99.4 103 27 126/61 (82) 98 10/15/18 03:30 109 25 119/58 (78) 98 10/15/18 03:00 105 23 113/58 (76) 98 10/15/18 03:00 Mechanical Ventilator 40 10/15/18 02:39 110 20 40 10/15/18 02:30 115 20 122/65 (84) 98 10/15/18 02:00 115 20 111/60 (77) 98 10/15/18 02:00 20 Mechanical Ventilator 40 10/15/18 01:30 119 19 141/75 (97) 98 10/15/18 01:18 122 24 40 10/15/18 01:00 120 21 138/73 (94) 99 10/15/18 01:00 20 Mechanical Ventilator 40 10/15/18 00:44 Mechanical Ventilator 40 10/15/18 00:00 98.4 118 18 134/70 (91) 10/15/18 00:00 115 10/15/18 00:00 20 Mechanical Ventilator 40 10/15/18 00:00 40 10/15/18 00:00 Mechanical Ventilator 10/14/18 23:30 118 23 138/63 (88) 97 10/14/18 23:00 22 Mechanical Ventilator 40 10/14/18 23:00 117 22 116/58 (77) 97 10/14/18 22:40 120 24 40 10/14/18 22:30 118 22 126/59 (81) 97 10/14/18 22:00 24 Mechanical Ventilator 40 10/14/18 22:00 117 20 133/52 (79) 98 10/14/18 21:30 119 23 119/68 (85) 98 10/14/18 21:00 120 26 117/61 (79) 99 10/14/18 21:00 12 Mechanical Ventilator 40 10/14/18 20:46 117 23 40 10/14/18 20:38 123/71 10/14/18 20:30 115 21 117/61 (79) 100 10/14/18 20:00 Mechanical Ventilator 10/14/18 20:00 24 Mechanical Ventilator 40 10/14/18 20:00 99.1 120 26 124/69 (87) 99 10/14/18 20:00 118 10/14/18 20:00 40 10/14/18 19:24 121 22 40 10/14/18 19:00 Mechanical Ventilator 10/14/18 19:00 118 18 123/71 (88) 99 10/14/18 18:00 116 21 118/72 (87) 100 10/14/18 18:00 Mechanical Ventilator 10/14/18 17:00 112 16 123/62 (82) 100 10/14/18 17:00 Mechanical Ventilator 10/14/18 16:35 115 23 40 Intake and Output 10/14/18 10/15/18 19:00 07:00 Intake Total 1305.0 ml 800.0 ml Output Total 840 ml 435 ml Balance 465.0 ml 365.0 ml IV Total 1065.0 ml 780.0 ml Tube Feeding 240 ml 20 ml Output Urine Total 340 ml 435 ml Stool Total 500 ml # Bowel Movements 1 Laboratory Tests Test 10/15/18 05:00 10/15/18 11:55 Sodium Level 148 MMOL/L (136-145) H Potassium Level 3.4 MMOL/L (3.5-5.1) L Chloride Level 117 MMOL/L (98-107) H Carbon Dioxide Level 17 MMOL/L (21-32) L Anion Gap 14 mmol/L (5-15) Blood Urea Nitrogen 48 mg/dL (7-18) H Creatinine 2.7 MG/DL (0.55-1.30) H Estimat Glomerular Filtration Rate 18.1 mL/min (>60) Glucose Level 150 MG/DL (74-106) H Uric Acid 7.4 MG/DL (2.6-7.2) H Calcium Level 8.6 MG/DL (8.5-10.1) Phosphorus Level 4.0 MG/DL (2.5-4.9) Magnesium Level 1.7 MG/DL (1.8-2.4) L Total Bilirubin 3.9 MG/DL (0.2-1.0) H Direct Bilirubin 2.8 MG/DL (0.0-0.3) H Gamma Glutamyl Transpeptidase 722 U/L (5-85) H Aspartate Amino Transf (AST/SGOT) 164 U/L (15-37) H Alanine Aminotransferase (ALT/SGPT) 1132 U/L (12-78) H Alkaline Phosphatase 557 U/L (46-116) H Ammonia 65 umol/L (11-32) H C-Reactive Protein, Quantitative 11.3 mg/dL (0.00-0.90) H Pro-B-Type Natriuretic Peptide 658 pg/mL (0-125) H Total Protein 4.8 G/DL (6.4-8.2) L Albumin 1.8 G/DL (3.4-5.0) L Globulin 3.0 g/dL Albumin/Globulin Ratio 0.6 (1.0-2.7) L Digoxin Level 1.0 NG/ML (0.9-2.0) White Blood Count 14.7 K/UL (4.8-10.8) H Red Blood Count 3.46 M/UL (4.20-5.40) L Hemoglobin 10.6 G/DL (12.0-16.0) L Hematocrit 32.6 % (37.0-47.0) L Mean Corpuscular Volume 94 FL (80-99) Mean Corpuscular Hemoglobin 30.7 PG (27.0-31.0) Mean Corpuscular Hemoglobin Concent 32.6 G/DL (32.0-36.0) Red Cell Distribution Width 17.2 % (11.6-14.8) H Platelet Count 62 K/UL (150-450) L Mean Platelet Volume 6.2 FL (6.5-10.1) L Neutrophils (%) (Auto) % (45.0-75.0) Lymphocytes (%) (Auto) % (20.0-45.0) Monocytes (%) (Auto) % (1.0-10.0) Eosinophils (%) (Auto) % (0.0-3.0) Basophils (%) (Auto) % (0.0-2.0) Differential Total Cells Counted 100 Neutrophils % (Manual) 81 % (45-75) H Lymphocytes % (Manual) 6 % (20-45) L Monocytes % (Manual) 4 % (1-10) Eosinophils % (Manual) 3 % (0-3) Basophils % (Manual) 0 % (0-2) Band Neutrophils 6 % (0-8) Platelet Estimate Decreased L Platelet Morphology Normal Anisocytosis 1+ Objective HEAD AND NECK: No JVD orally intubated with OG tube in. LUNGS: Coarse rhonchi. CARDIOVASCULAR: Regular S1, S2 with no gallop or murmur. ABDOMEN: Obese. EXTREMITIES: No pitting edema. Sean Montanez MD Oct 15, 2018 16:19
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
--- NOTE | 2018-10-15 19:19 | NUR ---
HAND-OFF: Report given to KARI Figueroa.
--- NOTE | 2018-10-15 19:30 | NUR ---
NURSE NOTES: Received pt in bed with eyes Closed. Sinus tach on the monitor with HR 114. Orally intubated at this AC 20, Vt500, fio2 40%. OGT feeding Glucerna 1.2 @ 20 with 60 cc residual noted at this time. LISA picc line inserted today, running NS @ 50 cc/hr. All ports flushing and blood return noted. Quiroz cath draining by gravity, rectal tube also draining by gravity with yellow water stool noted. Bed in lowest position, side rails upx3. Call light with in reach. Bed alarms on. No signs of distress noted. Will continue to monitor.
[2018-10-15] MEDS: Dyna-Hex 2% Top Sol 2oz TOPIC SCH (19:48)
--- NOTE | 2018-10-15 20:11 | NUR ---
NURSE NOTES: upon turning the patient noted to have Runs of V-tach at this time. Will continue to monitor.
[2018-10-15] MEDS: Norepinephrine Bitartrate 16 MG in Sodium Chloride 484 ML IV SCH (21:00)
--- NOTE | 2018-10-15 21:07 | General Progress Note ---
Assessment/Plan Problem List: (1) Hypotension ICD Codes: I95.9 - Hypotension, unspecified SNOMED: 07909689 (2) Hyperglycemia ICD Codes: R73.9 - Hyperglycemia, unspecified SNOMED: 28997107 (3) Dyspnea ICD Codes: R06.00 - Dyspnea, unspecified SNOMED: 407397334 (4) Hypoxemia ICD Codes: R09.02 - Hypoxemia SNOMED: 524020520 (5) Contusion of left knee ICD Codes: S80.02XA - Contusion of left knee, initial encounter SNOMED: 46085557 (6) Sepsis ICD Codes: A41.9 - Sepsis, unspecified organism SNOMED: 58739671 (7) Septic shock ICD Codes: A41.9 - Sepsis, unspecified organism; R65.21 - Severe sepsis with septic shock SNOMED: 63373894 (8) Liver cirrhosis ICD Codes: K74.60 - Unspecified cirrhosis of liver SNOMED: 92467891 (9) Pneumonia ICD Codes: J18.9 - Pneumonia, unspecified organism SNOMED: 606749037 (10) Respiratory disorder with ventilator dependence ICD Codes: J98.9 - Respiratory disorder, unspecified; Z99.11 - Dependence on respirator [ventilator] status SNOMED: 35191651, 706449030 (11) Shock liver ICD Codes: K72.00 - Acute and subacute hepatic failure without coma SNOMED: 274578733 Status: progressing Assessment/Plan shock liver resp failure edema abx per id check lytes cihrrosis sepsis obesity morbid pna elevated lft Subjective ROS Limited/Unobtainable: Yes Allergies: Coded Allergies: No Known Allergies (Unverified , 05/06/18) Objective Last 24 Hour Vital Signs Date Time Temp Pulse Resp B/P (MAP) Pulse Ox O2 Delivery O2 Flow Rate FiO2 10/15/18 19:09 115 21 40 10/15/18 18:00 108 21 156/83 (107) 99 10/15/18 17:14 108 21 40 10/15/18 17:00 112 18 140/68 (92) 100 10/15/18 16:00 Mechanical Ventilator 10/15/18 16:00 115 10/15/18 16:00 98.0 115 22 98/75 (83) 99 10/15/18 16:00 40 10/15/18 15:22 111 20 40 10/15/18 15:00 112 11 122/58 (79) 98 10/15/18 14:00 119 21 135/63 (87) 99 10/15/18 13:02 125 29 40 10/15/18 13:00 126 23 180/88 (118) 98 10/15/18 13:00 40 10/15/18 13:00 126 23 180/88 (118) 98 10/15/18 12:00 40 10/15/18 12:00 98.0 98 23 148/71 (96) 98 10/15/18 12:00 97.6 116 23 148/71 (96) 99 10/15/18 12:00 117 10/15/18 12:00 Mechanical Ventilator 10/15/18 11:03 115 25 40 10/15/18 11:00 115 26 150/64 (92) 98 10/15/18 10:00 110 26 118/62 (80) 98 10/15/18 10:00 Mechanical Ventilator 10/15/18 09:15 111 10/15/18 09:00 40 10/15/18 09:00 111 27 118/62 (80) 98 10/15/18 09:00 98 10/15/18 08:55 108 22 40 40 10/15/18 08:00 98.4 98 27 121/61 (81) 98 10/15/18 08:00 40 10/15/18 08:00 111 27 118/62 (80) 98 10/15/18 08:00 103 10/15/18 08:00 Mechanical Ventilator 10/15/18 07:00 102 20 122/63 (82) 100 10/15/18 06:53 98 23 40 10/15/18 06:53 99 20 Mechanical Ventilator 40 10/15/18 06:30 101 19 122/52 (75) 98 10/15/18 06:15 102 20 114/57 (76) 98 10/15/18 06:00 107 20 115/60 (78) 98 10/15/18 05:30 107 20 115/60 (78) 98 10/15/18 05:13 109 21 40 10/15/18 05:00 109 22 129/61 (83) 98 10/15/18 05:00 20 Mechanical Ventilator 40 10/15/18 04:30 109 22 130/58 (82) 98 10/15/18 04:00 Mechanical Ventilator 10/15/18 04:00 104 10/15/18 04:00 Mechanical Ventilator 40 10/15/18 04:00 40 10/15/18 04:00 99.4 103 27 126/61 (82) 98 10/15/18 03:30 109 25 119/58 (78) 98 10/15/18 03:00 105 23 113/58 (76) 98 10/15/18 03:00 Mechanical Ventilator 40 10/15/18 02:39 110 20 40 10/15/18 02:30 115 20 122/65 (84) 98 10/15/18 02:00 115 20 111/60 (77) 98 10/15/18 02:00 20 Mechanical Ventilator 40 10/15/18 01:30 119 19 141/75 (97) 98 10/15/18 01:18 122 24 40 10/15/18 01:00 120 21 138/73 (94) 99 10/15/18 01:00 20 Mechanical Ventilator 40 10/15/18 00:44 Mechanical Ventilator 40 10/15/18 00:00 98.4 118 18 134/70 (91) 10/15/18 00:00 115 10/15/18 00:00 20 Mechanical Ventilator 40 10/15/18 00:00 40 10/15/18 00:00 Mechanical Ventilator 10/14/18 23:30 118 23 138/63 (88) 97 10/14/18 23:00 22 Mechanical Ventilator 40 10/14/18 23:00 117 22 116/58 (77) 97 10/14/18 22:40 120 24 40 10/14/18 22:30 118 22 126/59 (81) 97 10/14/18 22:00 24 Mechanical Ventilator 40 10/14/18 22:00 117 20 133/52 (79) 98 10/14/18 21:30 119 23 119/68 (85) 98 Intake and Output 10/14/18 10/15/18 19:00 07:00 Intake Total 1305.0 ml 800.0 ml Output Total 840 ml 435 ml Balance 465.0 ml 365.0 ml IV Total 1065.0 ml 780.0 ml Tube Feeding 240 ml 20 ml Output Urine Total 340 ml 435 ml Stool Total 500 ml # Bowel Movements 1 Laboratory Tests 10/15/18 05:00: Sodium Level 148H, Potassium Level 3.4L, Chloride Level 117H, Carbon Dioxide Level 17L, Anion Gap 14, Blood Urea Nitrogen 48H, Creatinine 2.7H, Estimat Glomerular Filtration Rate 18.1, Glucose Level 150H, Uric Acid 7.4H, Calcium Level 8.6, Phosphorus Level 4.0, Magnesium Level 1.7L, Total Bilirubin 3.9H, Direct Bilirubin 2.8H, Gamma Glutamyl Transpeptidase 722H, Aspartate Amino Transf (AST/SGOT) 164H, Alanine Aminotransferase (ALT/SGPT) 1132H, Alkaline Phosphatase 557H, Ammonia 65H, C-Reactive Protein, Quantitative 11.3H, Pro-B- Type Natriuretic Peptide 658H, Total Protein 4.8L, Albumin 1.8L, Globulin 3.0, Albumin/Globulin Ratio 0.6L, Digoxin Level 1.0 10/15/18 11:55: White Blood Count 14.7H, Red Blood Count 3.46L, Hemoglobin 10.6L, Hematocrit 32.6L, Mean Corpuscular Volume 94, Mean Corpuscular Hemoglobin 30.7, Mean Corpuscular Hemoglobin Concent 32.6, Red Cell Distribution Width 17.2H, Platelet Count 62L, Mean Platelet Volume 6.2L, Neutrophils (%) (Auto) , Lymphocytes (%) (Auto) , Monocytes (%) (Auto) , Eosinophils (%) (Auto) , Basophils (%) (Auto) , Differential Total Cells Counted 100, Neutrophils % ( Manual) 81H, Lymphocytes % (Manual) 6L, Monocytes % (Manual) 4, Eosinophils % ( Manual) 3, Basophils % (Manual) 0, Band Neutrophils 6, Platelet Estimate DecreasedL, Platelet Morphology Normal, Anisocytosis 1+ Height (Feet): 5 Height (Inches): 1.00 Weight (Pounds): 246 General Appearance: lethargic, confused Cardiovascular: normal rate Abdomen: soft Michael Kelley MD Oct 15, 2018 21:07
[2018-10-15] MEDS: Iron Sucrose 100 MG in NS 55 ML IV SCH (21:26)
--- NOTE | 2018-10-15 21:30 | NUR ---
NURSE NOTES: Mo more runs of V-tach, Fentanyl gtt restarted at this time to calm patient. Currently running @ 10 mcg/min. Will continue to monitor
--- NOTE | 2018-10-15 23:35 | General Progress Note ---
Assessment/Plan Assessment/Plan Assessment and Recs: # Thrombocytopenia - potential causes multifactorial, evaluate liver and viral etiologies to begin, also could be related to underlying medications patient has received. Hx of cirrhosis in the past noted on us --> Hep panel and HIV negative --> CT a/p to evaluate for cirrhosis and hsm does show cirrhosis as well as us --> Peripheral smear ordered to evaluate for blasts /schistocytes is negative --> abx and other meds have been reviewed --> ok for ppx if plt >50k w/ either heparin or lovenox --> Transfuse if Plt < 20k and fever, or if Plt < 10k without fever --> HIT is pending # Anemia of iron deficiency as noted with low % sat and tibc elevated --> Anemia workup has been reviewed --> No evidence of hemolysis is noted, peripheral smear has been reviewed. --> Hgb goal >7. Transfuse prn. --> Iron IV X 5 days to continue --> Medications have been reviewed # CEA of 10.5 --> Ct of abdomen/pelvis reviewed and is negative # Sepsis likely contributing to low plts --> on abx as needed # Shock, hypovolemic and distributive --> per id and pulm/cc care # Multisystem organ failure. # Lactic acidosis. # JONNATHAN. # Abnormal LFTs, likely shock liver. # Abnormal troponin, likely demand ischemia. # Obesity. # Respiratory failure on vent --> per pulm/cc The timing of this note does not necessarily reflect the time of the patient was seen. Greatly appreciate consultation! Subjective ROS Limited/Unobtainable: Yes Allergies: Coded Allergies: No Known Allergies (Unverified , 05/06/18) Subjective 3/1: Pt was seen in ICU on Vent and off pressors, developed atrial fib, wbc trending down to 13, plt trending down to 60 3/3: remains in the icu, monitoring labs, plts stabilizing, remains critically ill, cea elev 10/15: In ICU on Vent and off pressors, plt 62, no events Objective Last 24 Hour Vital Signs Date Time Temp Pulse Resp B/P (MAP) Pulse Ox O2 Delivery O2 Flow Rate FiO2 10/15/18 23:26 98 20 40 10/15/18 22:35 20 Mechanical Ventilator 40 10/15/18 22:00 20 Mechanical Ventilator 40 10/15/18 22:00 107 21 135/60 (85) 99 10/15/18 21:30 107 21 144/65 (91) 99 10/15/18 21:29 103 20 40 10/15/18 21:00 105 21 140/70 (93) 99 10/15/18 21:00 22 Mechanical Ventilator 40 10/15/18 21:00 127/59 10/15/18 20:30 110 20 143/63 (89) 99 10/15/18 20:00 115 10/15/18 20:00 115 20 128/68 (88) 99 10/15/18 20:00 40 10/15/18 20:00 20 Mechanical Ventilator 40 10/15/18 20:00 Mechanical Ventilator 10/15/18 19:30 98.1 115 22 128/73 (91) 100 10/15/18 19:09 115 21 40 10/15/18 19:00 113 19 138/74 (95) 100 10/15/18 18:00 108 21 156/83 (107) 99 10/15/18 17:14 108 21 40 10/15/18 17:00 112 18 140/68 (92) 100 10/15/18 16:00 Mechanical Ventilator 10/15/18 16:00 115 10/15/18 16:00 98.0 115 22 98/75 (83) 99 10/15/18 16:00 40 10/15/18 15:22 111 20 40 10/15/18 15:00 112 11 122/58 (79) 98 10/15/18 14:00 119 21 135/63 (87) 99 10/15/18 13:02 125 29 40 10/15/18 13:00 126 23 180/88 (118) 98 10/15/18 13:00 40 10/15/18 13:00 126 23 180/88 (118) 98 10/15/18 12:00 40 10/15/18 12:00 98.0 98 23 148/71 (96) 98 10/15/18 12:00 97.6 116 23 148/71 (96) 99 10/15/18 12:00 117 10/15/18 12:00 Mechanical Ventilator 10/15/18 11:03 115 25 40 10/15/18 11:00 115 26 150/64 (92) 98 10/15/18 10:00 110 26 118/62 (80) 98 10/15/18 10:00 Mechanical Ventilator 10/15/18 09:15 111 10/15/18 09:00 40 10/15/18 09:00 111 27 118/62 (80) 98 10/15/18 09:00 98 10/15/18 08:55 108 22 40 40 10/15/18 08:00 98.4 98 27 121/61 (81) 98 10/15/18 08:00 40 10/15/18 08:00 111 27 118/62 (80) 98 10/15/18 08:00 103 10/15/18 08:00 Mechanical Ventilator 10/15/18 07:00 102 20 122/63 (82) 100 10/15/18 06:53 98 23 40 10/15/18 06:53 99 20 Mechanical Ventilator 40 10/15/18 06:30 101 19 122/52 (75) 98 10/15/18 06:15 102 20 114/57 (76) 98 10/15/18 06:00 107 20 115/60 (78) 98 10/15/18 05:30 107 20 115/60 (78) 98 10/15/18 05:13 109 21 40 10/15/18 05:00 109 22 129/61 (83) 98 10/15/18 05:00 20 Mechanical Ventilator 40 10/15/18 04:30 109 22 130/58 (82) 98 10/15/18 04:00 Mechanical Ventilator 10/15/18 04:00 104 10/15/18 04:00 Mechanical Ventilator 40 10/15/18 04:00 40 10/15/18 04:00 99.4 103 27 126/61 (82) 98 10/15/18 03:30 109 25 119/58 (78) 98 10/15/18 03:00 105 23 113/58 (76) 98 10/15/18 03:00 Mechanical Ventilator 40 10/15/18 02:39 110 20 40 10/15/18 02:30 115 20 122/65 (84) 98 10/15/18 02:00 115 20 111/60 (77) 98 10/15/18 02:00 20 Mechanical Ventilator 40 10/15/18 01:30 119 19 141/75 (97) 98 10/15/18 01:18 122 24 40 10/15/18 01:00 120 21 138/73 (94) 99 10/15/18 01:00 20 Mechanical Ventilator 40 10/15/18 00:44 Mechanical Ventilator 40 10/15/18 00:00 98.4 118 18 134/70 (91) 10/15/18 00:00 115 10/15/18 00:00 20 Mechanical Ventilator 40 10/15/18 00:00 40 10/15/18 00:00 Mechanical Ventilator Intake and Output 10/14/18 10/15/18 19:00 07:00 Intake Total 1305.0 ml 800.0 ml Output Total 840 ml 435 ml Balance 465.0 ml 365.0 ml IV Total 1065.0 ml 780.0 ml Tube Feeding 240 ml 20 ml Output Urine Total 340 ml 435 ml Stool Total 500 ml # Bowel Movements 1 Laboratory Tests 10/15/18 05:00: Sodium Level 148H, Potassium Level 3.4L, Chloride Level 117H, Carbon Dioxide Level 17L, Anion Gap 14, Blood Urea Nitrogen 48H, Creatinine 2.7H, Estimat Glomerular Filtration Rate 18.1, Glucose Level 150H, Uric Acid 7.4H, Calcium Level 8.6, Phosphorus Level 4.0, Magnesium Level 1.7L, Total Bilirubin 3.9H, Direct Bilirubin 2.8H, Gamma Glutamyl Transpeptidase 722H, Aspartate Amino Transf (AST/SGOT) 164H, Alanine Aminotransferase (ALT/SGPT) 1132H, Alkaline Phosphatase 557H, Ammonia 65H, C-Reactive Protein, Quantitative 11.3H, Pro-B- Type Natriuretic Peptide 658H, Total Protein 4.8L, Albumin 1.8L, Globulin 3.0, Albumin/Globulin Ratio 0.6L, Digoxin Level 1.0 10/15/18 11:55: White Blood Count 14.7H, Red Blood Count 3.46L, Hemoglobin 10.6L, Hematocrit 32.6L, Mean Corpuscular Volume 94, Mean Corpuscular Hemoglobin 30.7, Mean Corpuscular Hemoglobin Concent 32.6, Red Cell Distribution Width 17.2H, Platelet Count 62L, Mean Platelet Volume 6.2L, Neutrophils (%) (Auto) , Lymphocytes (%) (Auto) , Monocytes (%) (Auto) , Eosinophils (%) (Auto) , Basophils (%) (Auto) , Differential Total Cells Counted 100, Neutrophils % ( Manual) 81H, Lymphocytes % (Manual) 6L, Monocytes % (Manual) 4, Eosinophils % ( Manual) 3, Basophils % (Manual) 0, Band Neutrophils 6, Platelet Estimate DecreasedL, Platelet Morphology Normal, Anisocytosis 1+ Height (Feet): 5 Height (Inches): 1.00 Weight (Pounds): 246 Objective PHYSICAL EXAMINATION: VITAL SIGNS: reviewed, saturating 100% on VENT GENERAL: She is an obese female, confused. HEENT: Normocephalic and atraumatic. Oropharynx is clear with dry mucous membranes. NECK: Supple without lymphadenopathy or JVP. CHEST: Clear. ++ Vent HEART: Regular. ABDOMEN: Benign. EXTREMITIES: No cyanosis, clubbing, or edema. There are some ecchymoses in bilateral lower extremities. Kurtis Villagomez MD Oct 15, 2018 23:35
--- NOTE | 2018-10-15 23:39 | NUR ---
NURSE NOTES: patient has been of fentanyl since 2199. More calm, No more V-tach noted. Tolerating feedings, 20 cc residual noted at this time. rectal tube continues to drain by gravity at this time. Will continue to monitor
[2018-10-16] VITALS (24 sets, daily range): BP systolic 125–189; BP diastolic 66–98
--- NOTE | 2018-10-16 01:29 | NUR ---
NURSE NOTES: patient sleeping at this time. patient turned and repositioned. Oral care done. patient noted to Bleed form lips during oral care. No signs of distress noted. Will continue to monitor
--- NOTE | 2018-10-16 03:00 | NUR ---
NURSE NOTES: bed bath given at this time. Rectal tube continues to drain brown/yellow liquid stool. Quiroz cath draining by gravity. No signs of distress noted. Will continue to monitor
--- NOTE | 2018-10-16 04:52 | NUR ---
NURSE NOTES: Labs drawn and sent to the lab at this time. patient in and out of sleep. Denies any pain or discomfort at this time. Will continue to monitor
[2018-10-16] MEDS: Metoclopramide 10mg/2ml Inj IVP SCH ×4 (05:44→23:15)
[2018-10-16] MEDS: Piperacillin/Tazobactam 3.375 GM in D5W 110 ML IVPB SCH ×2 (05:44→18:00)
[2018-10-16] MEDS: NovoLOG Insulin Flexpen SUBQ SCH ×4 (05:46→21:18)
[2018-10-16 05:51] LABS: HEMATOCRIT 30.2 % (37.0-47.0); HEMOGLOBIN 9.8 G/DL (12.0-16.0); MEAN CORPUSCULAR VOLUME 95 FL (80-99); PLATELET COUNT 48 K/UL (150-450); RED BLOOD COUNT 3.18 M/UL (4.20-5.40); RED CELL DISTRIBUTION WIDTH 17.6 % (11.6-14.8); WHITE BLOOD COUNT 14.5 K/UL (4.8-10.8)
--- NOTE | 2018-10-16 06:00 | NUR ---
NURSE NOTES: Fentanyl wasted with charge nurse Carissa at this time. 75 ml wasted.
--- NOTE | 2018-10-16 06:01 | NUR ---
NURSE NOTES: BS 202 coverage given per sliding scale. Tolerating feeding with 20 cc residual at this time. Will continue to monitor
[2018-10-16 06:18] LABS: AMMONIA 57 umol/L (11-32)
[2018-10-16 06:30] LABS: ALANINE AMINOTRANSFERASE 827 U/L (12-78); ALBUMIN 1.7 G/DL (3.4-5.0); ALBUMIN/GLOBULIN RATIO 0.5 (1.0-2.7); ALKALINE PHOSPHATASE 559 U/L (46-116); ANION GAP 13 mmol/L (5-15); ASPARTATE AMINO TRANSFERASE 104 U/L (15-37); BILIRUBIN,TOTAL 4.2 MG/DL (0.2-1.0); BLOOD UREA NITROGEN 45 mg/dL (7-18); CARBON DIOXIDE 19 MMOL/L (21-32); CHLORIDE 122 MMOL/L (98-107); CREATININE 2.4 MG/DL (0.55-1.30); POTASSIUM 3.5 MMOL/L (3.5-5.1); SODIUM 154 MMOL/L (136-145)
--- NOTE | 2018-10-16 06:30 | NUR ---
NURSE NOTES: MD Reynolds made rounds at this time. Order is to Give Albumin 100ml and Lasix 20 MG to be given 4 hours later.
[2018-10-16 06:33] LABS: BILIRUBIN,DIRECT 3.1 MG/DL (0.0-0.3)
--- NOTE | 2018-10-16 06:40 | General Progress Note ---
Assessment/Plan Problem List: (1) CAD (coronary artery disease) ICD Codes: I25.10 - Atherosclerotic heart disease of [place] coronary artery without angina pectoris SNOMED: 33459061 (2) RI (3) Thrombocytopenia ICD Codes: D69.6 - Thrombocytopenia, unspecified SNOMED: 840409354 (4) Respiratory failure ICD Codes: J96.90 - Respiratory failure, unspecified, unspecified whether with hypoxia or hypercapnia SNOMED: 197095398 (5) Dysphagia ICD Codes: R13.10 - Dysphagia, unspecified SNOMED: 82638567, 327400746 (6) Elevated CEA ICD Codes: R97.0 - Elevated carcinoembryonic antigen [CEA] SNOMED: 991973546 (7) Shock liver ICD Codes: K72.00 - Acute and subacute hepatic failure without coma SNOMED: 233162110 (8) Respiratory disorder with ventilator dependence ICD Codes: J98.9 - Respiratory disorder, unspecified; Z99.11 - Dependence on respirator [ventilator] status SNOMED: 63877641, 763634755 (9) Liver cirrhosis ICD Codes: K74.60 - Unspecified cirrhosis of liver SNOMED: 19605529 (10) Normocytic anemia ICD Codes: D64.9 - Anemia, unspecified SNOMED: 612322889 Assessment/Plan NGTF tolerated better KUB>> reviewed ppi BID monitor H&H fu LFTS>> improving work up for elevated CEA when more stable lasix and albumin combination xifaxan and lactulose reglan weaning Subjective ROS Limited/Unobtainable: No Allergies: Coded Allergies: No Known Allergies (Unverified , 05/06/18) Objective Last 24 Hour Vital Signs Date Time Temp Pulse Resp B/P (MAP) Pulse Ox O2 Delivery O2 Flow Rate FiO2 10/16/18 06:00 99 153/70 (97) 100 10/16/18 05:03 103 20 40 10/16/18 05:00 102 161/76 (104) 99 10/16/18 04:00 Mechanical Ventilator 10/16/18 04:00 98.4 101 20 161/70 (100) 99 10/16/18 04:00 40 10/16/18 04:00 105 10/16/18 03:06 107 22 40 10/16/18 03:00 106 125/72 (89) 10/16/18 02:00 107 20 143/73 (96) 97 10/16/18 01:18 105 22 40 10/16/18 01:00 108 20 142/69 (93) 98 10/16/18 00:00 103 20 149/66 (93) 99 10/16/18 00:00 Mechanical Ventilator 10/15/18 23:26 98 20 40 10/15/18 23:00 98.3 100 20 130/60 (83) 99 10/15/18 22:35 20 Mechanical Ventilator 40 10/15/18 22:00 20 Mechanical Ventilator 40 10/15/18 22:00 107 21 135/60 (85) 99 10/15/18 21:30 107 21 144/65 (91) 99 10/15/18 21:29 103 20 40 10/15/18 21:00 105 21 140/70 (93) 99 10/15/18 21:00 22 Mechanical Ventilator 40 10/15/18 21:00 127/59 10/15/18 20:30 110 20 143/63 (89) 99 10/15/18 20:00 115 10/15/18 20:00 115 20 128/68 (88) 99 10/15/18 20:00 40 10/15/18 20:00 20 Mechanical Ventilator 40 10/15/18 20:00 Mechanical Ventilator 10/15/18 19:30 98.1 115 22 128/73 (91) 100 10/15/18 19:09 115 21 40 10/15/18 19:00 113 19 138/74 (95) 100 10/15/18 18:00 108 21 156/83 (107) 99 10/15/18 17:14 108 21 40 10/15/18 17:00 112 18 140/68 (92) 100 10/15/18 16:00 Mechanical Ventilator 10/15/18 16:00 115 10/15/18 16:00 98.0 115 22 98/75 (83) 99 10/15/18 16:00 40 10/15/18 15:22 111 20 40 10/15/18 15:00 112 11 122/58 (79) 98 10/15/18 14:00 119 21 135/63 (87) 99 10/15/18 13:02 125 29 40 10/15/18 13:00 126 23 180/88 (118) 98 10/15/18 13:00 40 10/15/18 13:00 126 23 180/88 (118) 98 10/15/18 12:00 40 10/15/18 12:00 98.0 98 23 148/71 (96) 98 10/15/18 12:00 97.6 116 23 148/71 (96) 99 10/15/18 12:00 117 10/15/18 12:00 Mechanical Ventilator 10/15/18 11:03 115 25 40 10/15/18 11:00 115 26 150/64 (92) 98 10/15/18 10:00 110 26 118/62 (80) 98 10/15/18 10:00 Mechanical Ventilator 10/15/18 09:15 111 10/15/18 09:00 40 10/15/18 09:00 111 27 118/62 (80) 98 10/15/18 09:00 98 10/15/18 08:55 108 22 40 40 10/15/18 08:00 98.4 98 27 121/61 (81) 98 10/15/18 08:00 40 10/15/18 08:00 111 27 118/62 (80) 98 10/15/18 08:00 103 10/15/18 08:00 Mechanical Ventilator 10/15/18 07:00 102 20 122/63 (82) 100 10/15/18 06:53 98 23 40 10/15/18 06:53 99 20 Mechanical Ventilator 40 Intake and Output 10/15/18 10/16/18 19:00 07:00 Intake Total 782.5 ml 658.0 ml Output Total 2395 ml 1440 ml Balance -1612.5 ml -782.0 ml IV Total 682.5 ml 308.0 ml Tube Feeding 100 ml 290 ml Other 60 ml Output Urine Total 1195 ml 840 ml Stool Total 1200 ml 600 ml Laboratory Tests 10/15/18 11:55: White Blood Count 14.7H, Red Blood Count 3.46L, Hemoglobin 10.6L, Hematocrit 32.6L, Mean Corpuscular Volume 94, Mean Corpuscular Hemoglobin 30.7, Mean Corpuscular Hemoglobin Concent 32.6, Red Cell Distribution Width 17.2H, Platelet Count 62L, Mean Platelet Volume 6.2L, Neutrophils (%) (Auto) , Lymphocytes (%) (Auto) , Monocytes (%) (Auto) , Eosinophils (%) (Auto) , Basophils (%) (Auto) , Differential Total Cells Counted 100, Neutrophils % ( Manual) 81H, Lymphocytes % (Manual) 6L, Monocytes % (Manual) 4, Eosinophils % ( Manual) 3, Basophils % (Manual) 0, Band Neutrophils 6, Platelet Estimate DecreasedL, Platelet Morphology Normal, Anisocytosis 1+ // 04:30: White Blood Count 14.5H, Red Blood Count 3.18L, Hemoglobin 9.8L, Hematocrit 30.2L, Mean Corpuscular Volume 95, Mean Corpuscular Hemoglobin 30.9, Mean Corpuscular Hemoglobin Concent 32.6, Red Cell Distribution Width 17.6H, Platelet Count 48L, Mean Platelet Volume 6.8, Neutrophils (%) (Auto) , Lymphocytes (%) (Auto) , Monocytes (%) (Auto) , Eosinophils (%) (Auto) , Basophils (%) (Auto) , Neutrophils % (Manual) [Pending], Lymphocytes % (Manual) [Pending], Platelet Estimate [Pending], Platelet Morphology [Pending], Sodium Level 154H, Potassium Level 3.5, Chloride Level 122H, Carbon Dioxide Level 19L, Anion Gap 13, Blood Urea Nitrogen 45H, Creatinine 2.4H, Estimat Glomerular Filtration Rate 20.7, Glucose Level 179H, Calcium Level 9.0, Total Bilirubin 4.2H, Direct Bilirubin 3.1H, Aspartate Amino Transf (AST/SGOT) 104H, Alanine Aminotransferase (ALT/SGPT) 827H, Alkaline Phosphatase 559H, Ammonia 57H, Total Protein 4.9L, Albumin 1.7L, Globulin 3.2, Albumin/Globulin Ratio 0.5L, Digoxin Level [Pending] Height (Feet): 5 Height (Inches): 1.00 Weight (Pounds): 250 General Appearance: lethargic EENT: normal ENT inspection Neck: supple Cardiovascular: normal rate Respiratory/Chest: decreased breath sounds Abdomen: normal bowel sounds, non tender, soft Edema: 2+ Leg (L), 2+ Leg (R) Samuel Reynolds MD Oct 16, 2018 06:40
--- NOTE | 2018-10-16 06:50 | NUR ---
NURSE NOTES: Spoke with Pharmacist at this time and clarified order about Albumin and Lasix.
--- NOTE | 2018-10-16 07:08 | NUR ---
RESPIRATORY NOTE: received pt on vent, intubated with ETT size 7.0, placed 21 cm at the lip. ett is secured via anchor fast with no redness on on cheeks or neck area. alarms are on and audible with vent plugged into redoutlet. ambu bag at bed side and will cont to follow weaning order later this am.
--- NOTE | 2018-10-16 08:00 | NUR ---
NURSE NOTES: Received patient, opens eyes spontaneously, able to nod back make needs known, language barrier. Patient potline monitor showing ST HR 108. Patient is intubated. 7.0 21 cm lipline. AC 20 VT 500 Peep 5 Fio2 40%. Patient has OGT Glucena 1.2 at 45 cc/hr. 40 ml residual. 100 cc flush with 8 AM meds per MD order. Rectal tube intact. Quiroz catheter intact, draining. No open skin wounds. L upper arm picc NS at 50 cc/hr. Patient is stable at this time. VSS. No distress noted. Will continue plan of care.
[2018-10-16] MEDS: Lactulose 20gm/30ml UDC NG SCH ×3 (08:41→18:00)
[2018-10-16] MEDS: Digoxin 0.125mg tab NG SCH (08:41)
[2018-10-16] MEDS: Pantoprazole Inj IVP SCH ×2 (08:41→21:17)
[2018-10-16] MEDS: Amiodarone 200mg tab NG SCH (08:41)
--- NOTE | 2018-10-16 09:30 | NUR ---
RESPIRATORY NOTE: pt placed on CPAP PS 8 with vitals all WNL. no resp distress while on CPAP. RSBI 50, Spo2 100%, Spont Vt 398. will cont to monitor.
--- NOTE | 2018-10-16 10:00 | NUR ---
NURSE NOTES: Tolerating weaning. VSS. No distress noted. CPAP PS 8
--- NOTE | 2018-10-16 10:35 | Cardiac Electrophysiology PN ---
Assessment/Plan Assessment/Plan 1. Atrial fib with RVR. Off Betablocker or CA janet for hypotension. On Dig 0.125 daily and amiodarone 200 daily. In SR 2.S/P Septic shock. On broad spectrum IV antibiotic. Off pressors 3. Troponin leak. The levels are flat and likely due to this patient's sepsis and septic shock. Her echocardiogram showed ejection fraction 60% to 65% and EKG showed no acute ischemic changes. 4. Respiratory failure on the Vent. Being weaned off today 5. Diabetes. 6. Renal failure. 7. Morbid obesity. DW BOILER OUT Subjective Subjective In ICU on Vent and off pressors and more Atrial fib in sinus. Possible extubation today Objective Last 24 Hour Vital Signs Date Time Temp Pulse Resp B/P (MAP) Pulse Ox O2 Delivery O2 Flow Rate FiO2 10/16/18 10:00 105 20 145/91 (109) 100 10/16/18 09:00 102 20 144/90 (108) 100 10/16/18 08:41 108 10/16/18 08:40 107 25 40 10/16/18 08:40 100 10/16/18 08:00 40 10/16/18 08:00 98.8 108 22 162/95 (117) 100 10/16/18 08:00 Mechanical Ventilator 10/16/18 08:00 108 10/16/18 07:07 107 20 40 10/16/18 07:00 109 151/98 (115) 100 10/16/18 06:00 99 153/70 (97) 100 10/16/18 05:03 103 20 40 10/16/18 05:00 102 161/76 (104) 99 10/16/18 04:00 Mechanical Ventilator 10/16/18 04:00 98.4 101 20 161/70 (100) 99 10/16/18 04:00 40 10/16/18 04:00 105 10/16/18 03:06 107 22 40 10/16/18 03:00 106 125/72 (89) 10/16/18 02:00 107 20 143/73 (96) 97 10/16/18 01:18 105 22 40 10/16/18 01:00 108 20 142/69 (93) 98 10/16/18 00:00 103 20 149/66 (93) 99 10/16/18 00:00 Mechanical Ventilator 10/15/18 23:26 98 20 40 10/15/18 23:00 98.3 100 20 130/60 (83) 99 10/15/18 22:35 20 Mechanical Ventilator 40 10/15/18 22:00 20 Mechanical Ventilator 40 10/15/18 22:00 107 21 135/60 (85) 99 10/15/18 21:30 107 21 144/65 (91) 99 10/15/18 21:29 103 20 40 10/15/18 21:00 105 21 140/70 (93) 99 10/15/18 21:00 22 Mechanical Ventilator 40 10/15/18 21:00 127/59 10/15/18 20:30 110 20 143/63 (89) 99 10/15/18 20:00 115 10/15/18 20:00 115 20 128/68 (88) 99 10/15/18 20:00 40 10/15/18 20:00 20 Mechanical Ventilator 40 10/15/18 20:00 Mechanical Ventilator 10/15/18 19:30 98.1 115 22 128/73 (91) 100 10/15/18 19:09 115 21 40 10/15/18 19:00 113 19 138/74 (95) 100 10/15/18 18:00 108 21 156/83 (107) 99 10/15/18 17:14 108 21 40 10/15/18 17:00 112 18 140/68 (92) 100 10/15/18 16:00 Mechanical Ventilator 10/15/18 16:00 115 10/15/18 16:00 98.0 115 22 98/75 (83) 99 10/15/18 16:00 40 10/15/18 15:22 111 20 40 10/15/18 15:00 112 11 122/58 (79) 98 10/15/18 14:00 119 21 135/63 (87) 99 10/15/18 13:02 125 29 40 10/15/18 13:00 126 23 180/88 (118) 98 10/15/18 13:00 40 10/15/18 13:00 126 23 180/88 (118) 98 10/15/18 12:00 40 10/15/18 12:00 98.0 98 23 148/71 (96) 98 10/15/18 12:00 97.6 116 23 148/71 (96) 99 10/15/18 12:00 117 10/15/18 12:00 Mechanical Ventilator 10/15/18 11:03 115 25 40 10/15/18 11:00 115 26 150/64 (92) 98 Intake and Output 10/15/18 10/16/18 18:59 06:59 Intake Total 762.5 ml 1033.0 ml Output Total 2315 ml 1570 ml Balance -1552.5 ml -537.0 ml IV Total 682.5 ml 663.0 ml Tube Feeding 80 ml 310 ml Other 60 ml Output Urine Total 1115 ml 970 ml Stool Total 1200 ml 600 ml Laboratory Tests Test 10/15/18 11:55 10/16/18 04:30 10/16/18 09:55 White Blood Count 14.7 K/UL (4.8-10.8) H 14.5 K/UL (4.8-10.8) H Red Blood Count 3.46 M/UL (4.20-5.40) L 3.18 M/UL (4.20-5.40) L Hemoglobin 10.6 G/DL (12.0-16.0) L 9.8 G/DL (12.0-16.0) L Hematocrit 32.6 % (37.0-47.0) L 30.2 % (37.0-47.0) L Mean Corpuscular Volume 94 FL (80-99) 95 FL (80-99) Mean Corpuscular Hemoglobin 30.7 PG (27.0-31.0) 30.9 PG (27.0-31.0) Mean Corpuscular Hemoglobin Concent 32.6 G/DL (32.0-36.0) 32.6 G/DL (32.0-36.0) Red Cell Distribution Width 17.2 % (11.6-14.8) H 17.6 % (11.6-14.8) H Platelet Count 62 K/UL (150-450) L 48 K/UL (150-450) L Mean Platelet Volume 6.2 FL (6.5-10.1) L 6.8 FL (6.5-10.1) Neutrophils (%) (Auto) % (45.0-75.0) % (45.0-75.0) Lymphocytes (%) (Auto) % (20.0-45.0) % (20.0-45.0) Monocytes (%) (Auto) % (1.0-10.0) % (1.0-10.0) Eosinophils (%) (Auto) % (0.0-3.0) % (0.0-3.0) Basophils (%) (Auto) % (0.0-2.0) % (0.0-2.0) Differential Total Cells Counted 100 100 Neutrophils % (Manual) 81 % (45-75) H 85 % (45-75) H Lymphocytes % (Manual) 6 % (20-45) L 7 % (20-45) L Monocytes % (Manual) 4 % (1-10) 5 % (1-10) Eosinophils % (Manual) 3 % (0-3) 1 % (0-3) Basophils % (Manual) 0 % (0-2) 0 % (0-2) Band Neutrophils 6 % (0-8) 2 % (0-8) Platelet Estimate Decreased L Decreased L Platelet Morphology Normal Normal Anisocytosis 1+ 1+ Sodium Level 154 MMOL/L (136-145) H Potassium Level 3.5 MMOL/L (3.5-5.1) Chloride Level 122 MMOL/L (98-107) H Carbon Dioxide Level 19 MMOL/L (21-32) L Anion Gap 13 mmol/L (5-15) Blood Urea Nitrogen 45 mg/dL (7-18) H Creatinine 2.4 MG/DL (0.55-1.30) H Estimat Glomerular Filtration Rate 20.7 mL/min (>60) Glucose Level 179 MG/DL (74-106) H Calcium Level 9.0 MG/DL (8.5-10.1) Total Bilirubin 4.2 MG/DL (0.2-1.0) H Direct Bilirubin 3.1 MG/DL (0.0-0.3) H Aspartate Amino Transf (AST/SGOT) 104 U/L (15-37) H Alanine Aminotransferase (ALT/SGPT) 827 U/L (12-78) H Alkaline Phosphatase 559 U/L (46-116) H Ammonia 57 umol/L (11-32) H Total Protein 4.9 G/DL (6.4-8.2) L Albumin 1.7 G/DL (3.4-5.0) L Globulin 3.2 g/dL Albumin/Globulin Ratio 0.5 (1.0-2.7) L Digoxin Level 1.4 NG/ML (0.9-2.0) Arterial Blood pH 7.324 (7.350-7.450) Arterial Blood Partial Pressure CO2 32.3 mmHg (35.0-45.0) L Arterial Blood Partial Pressure O2 97.8 mmHg (75.0-100.0) Arterial Blood HCO3 16.4 mmol/L (22.0-26.0) *L Arterial Blood Oxygen Saturation 96.2 % (95-100) Arterial Blood Base Excess -8.6 (-2-2) L Ortiz Test Positive Objective HEAD AND NECK: No JVD orally intubated with OG tube in. LUNGS: Coarse rhonchi. CARDIOVASCULAR: Regular S1, S2 with no gallop or murmur. ABDOMEN: Obese. EXTREMITIES: No pitting edema. Sean Montanez MD Oct 16, 2018 10:35
--- NOTE | 2018-10-16 12:00 | NUR ---
NURSE NOTES: Patient is stable. Tolerating well. Extubation order obtained. RT notified.
--- NOTE | 2018-10-16 12:11 | Infectious Diseases Prog Note ---
Assessment/Plan Assessment/Plan A: 1. Septic Shock improving.culture are negative so far 2. May have pneumonia, especially aspiration pneumonia. 3. Multiorgan failure including acute renal failure and hypercapnic respiratory failure. 4. Diabetes mellitus. 5. Obesity. 6. Lactic acidosis. 7. Anemia.s/p transfusion 8. Cirrhosis. 9. Enteritis, ileus RECOMMENDATION: continue with Zosyn f/u CBC Subjective ROS Limited/Unobtainable: Yes Respiratory: Reports: other - on weaning process Allergies: Coded Allergies: No Known Allergies (Unverified , 05/06/18) Objective Vital Signs Last 24 Hour Vital Signs Date Time Temp Pulse Resp B/P (MAP) Pulse Ox O2 Delivery O2 Flow Rate FiO2 10/16/18 11:01 117 29 40 10/16/18 10:00 105 20 145/91 (109) 100 10/16/18 09:00 102 20 144/90 (108) 100 10/16/18 08:41 108 10/16/18 08:40 107 25 40 10/16/18 08:40 100 10/16/18 08:00 40 10/16/18 08:00 98.8 108 22 162/95 (117) 100 10/16/18 08:00 Mechanical Ventilator 10/16/18 08:00 108 10/16/18 07:07 107 20 40 10/16/18 07:00 109 151/98 (115) 100 10/16/18 06:00 99 153/70 (97) 100 10/16/18 05:03 103 20 40 10/16/18 05:00 102 161/76 (104) 99 10/16/18 04:00 Mechanical Ventilator 10/16/18 04:00 98.4 101 20 161/70 (100) 99 10/16/18 04:00 40 10/16/18 04:00 105 10/16/18 03:06 107 22 40 10/16/18 03:00 106 125/72 (89) 10/16/18 02:00 107 20 143/73 (96) 97 10/16/18 01:18 105 22 40 10/16/18 01:00 108 20 142/69 (93) 98 10/16/18 00:00 103 20 149/66 (93) 99 10/16/18 00:00 Mechanical Ventilator 10/15/18 23:26 98 20 40 10/15/18 23:00 98.3 100 20 130/60 (83) 99 10/15/18 22:35 20 Mechanical Ventilator 40 10/15/18 22:00 20 Mechanical Ventilator 40 10/15/18 22:00 107 21 135/60 (85) 99 10/15/18 21:30 107 21 144/65 (91) 99 10/15/18 21:29 103 20 40 10/15/18 21:00 105 21 140/70 (93) 99 10/15/18 21:00 22 Mechanical Ventilator 40 10/15/18 21:00 127/59 10/15/18 20:30 110 20 143/63 (89) 99 10/15/18 20:00 115 10/15/18 20:00 115 20 128/68 (88) 99 10/15/18 20:00 40 10/15/18 20:00 20 Mechanical Ventilator 40 10/15/18 20:00 Mechanical Ventilator 10/15/18 19:30 98.1 115 22 128/73 (91) 100 10/15/18 19:09 115 21 40 10/15/18 19:00 113 19 138/74 (95) 100 10/15/18 18:00 108 21 156/83 (107) 99 10/15/18 17:14 108 21 40 10/15/18 17:00 112 18 140/68 (92) 100 10/15/18 16:00 Mechanical Ventilator 10/15/18 16:00 115 10/15/18 16:00 98.0 115 22 98/75 (83) 99 10/15/18 16:00 40 10/15/18 15:22 111 20 40 10/15/18 15:00 112 11 122/58 (79) 98 10/15/18 14:00 119 21 135/63 (87) 99 10/15/18 13:02 125 29 40 10/15/18 13:00 126 23 180/88 (118) 98 10/15/18 13:00 40 10/15/18 13:00 126 23 180/88 (118) 98 Height (Feet): 5 Height (Inches): 1.00 Weight (Pounds): 250 General Appearance: no acute distress HEENT: mucous membranes moist, other - lips ulcers, subconjunctival hemorrhage Respiratory/Chest: decreased breath sounds, other - on ventilator Cardiovascular: tachycardia Abdomen: soft, non tender, other - rectal & orogastric tubes Extremities: other - edema Neurologic/Psychiatric: alert, responsive Laboratory Tests Test 10/16/18 04:30 10/16/18 09:55 White Blood Count 14.5 K/UL (4.8-10.8) H Red Blood Count 3.18 M/UL (4.20-5.40) L Hemoglobin 9.8 G/DL (12.0-16.0) L Hematocrit 30.2 % (37.0-47.0) L Mean Corpuscular Volume 95 FL (80-99) Mean Corpuscular Hemoglobin 30.9 PG (27.0-31.0) Mean Corpuscular Hemoglobin Concent 32.6 G/DL (32.0-36.0) Red Cell Distribution Width 17.6 % (11.6-14.8) H Platelet Count 48 K/UL (150-450) L Mean Platelet Volume 6.8 FL (6.5-10.1) Neutrophils (%) (Auto) % (45.0-75.0) Lymphocytes (%) (Auto) % (20.0-45.0) Monocytes (%) (Auto) % (1.0-10.0) Eosinophils (%) (Auto) % (0.0-3.0) Basophils (%) (Auto) % (0.0-2.0) Differential Total Cells Counted 100 Neutrophils % (Manual) 85 % (45-75) H Lymphocytes % (Manual) 7 % (20-45) L Monocytes % (Manual) 5 % (1-10) Eosinophils % (Manual) 1 % (0-3) Basophils % (Manual) 0 % (0-2) Band Neutrophils 2 % (0-8) Platelet Estimate Decreased L Platelet Morphology Normal Anisocytosis 1+ Sodium Level 154 MMOL/L (136-145) H Potassium Level 3.5 MMOL/L (3.5-5.1) Chloride Level 122 MMOL/L (98-107) H Carbon Dioxide Level 19 MMOL/L (21-32) L Anion Gap 13 mmol/L (5-15) Blood Urea Nitrogen 45 mg/dL (7-18) H Creatinine 2.4 MG/DL (0.55-1.30) H Estimat Glomerular Filtration Rate 20.7 mL/min (>60) Glucose Level 179 MG/DL (74-106) H Calcium Level 9.0 MG/DL (8.5-10.1) Total Bilirubin 4.2 MG/DL (0.2-1.0) H Direct Bilirubin 3.1 MG/DL (0.0-0.3) H Aspartate Amino Transf (AST/SGOT) 104 U/L (15-37) H Alanine Aminotransferase (ALT/SGPT) 827 U/L (12-78) H Alkaline Phosphatase 559 U/L (46-116) H Ammonia 57 umol/L (11-32) H Total Protein 4.9 G/DL (6.4-8.2) L Albumin 1.7 G/DL (3.4-5.0) L Globulin 3.2 g/dL Albumin/Globulin Ratio 0.5 (1.0-2.7) L Digoxin Level 1.4 NG/ML (0.9-2.0) Arterial Blood pH 7.324 (7.350-7.450) Arterial Blood Partial Pressure CO2 32.3 mmHg (35.0-45.0) L Arterial Blood Partial Pressure O2 97.8 mmHg (75.0-100.0) Arterial Blood HCO3 16.4 mmol/L (22.0-26.0) *L Arterial Blood Oxygen Saturation 96.2 % (95-100) Arterial Blood Base Excess -8.6 (-2-2) L Ortiz Test Positive Current Medications Medications (Trade) Dose Ordered Sig/Patricia Route PRN Reason Start Time Stop Time Status Last Admin Dose Admin Acetaminophen (Tylenol) 650 mg Q4H PRN ORAL Mild Pain/Temp > 100.5 10/09/18 14:15 11/08/18 14:14 10/11/18 19:43 Albumin Human 100 ml @ 100 mls/hr Q24H IV 10/16/18 08:00 10/17/18 08:59 10/16/18 08:41 Amiodarone HCl (Cordarone) 200 mg DAILY NG 10/16/18 09:00 11/12/18 20:59 10/16/18 08:41 Chlorhexidine Gluconate (Nguyen-Hex 2%) 1 applic DAILY@2000 TOPIC 10/10/18 20:00 11/09/18 19:59 10/15/18 19:48 Dextrose 1,000 ml @ 100 mls/hr Q10H ONCE IV 10/16/18 09:40 10/16/18 19:39 Dextrose (Dextrose 50%) 25 ml Q30M PRN IV Hypoglycemia 10/11/18 13:45 11/10/18 13:44 10/13/18 05:57 Dextrose (Dextrose 50%) 50 ml Q30M PRN IV Hypoglycemia 10/11/18 13:45 11/10/18 13:44 Digoxin (Lanoxin) 0.125 mg DAILY NG 10/16/18 09:00 11/15/18 08:59 10/16/18 08:41 Diphenhydramine HCl (Benadryl) 25 mg Q6H PRN IVP Itching 10/09/18 14:30 11/08/18 14:29 Fentanyl Citrate 1000 mcg/Sodium Chloride 100 ml @ 0 mls/hr Q24H IV 10/13/18 23:00 10/20/18 22:59 10/15/18 00:44 Furosemide (Lasix) 20 mg DAILY@1200 IV 10/16/18 12:00 10/17/18 12:01 Insulin Aspart (NovoLOG) BEFORE MEALS AND HS SUBQ 10/11/18 16:30 11/10/18 16:29 10/16/18 05:46 Iron Sucrose 100 mg/Sodium Chloride 60 ml @ 240 mls/hr BEDTIME IV 10/12/18 21:00 10/16/18 21:14 10/15/18 21:26 Lactulose (Cephulac) 30 gm THREE TIMES A DAY NG 10/14/18 18:00 11/12/18 17:59 10/16/18 08:41 Metoclopramide HCl (Reglan) 5 mg Q6H IVP 10/15/18 11:30 11/13/18 11:29 10/16/18 05:44 Midazolam HCl (Versed 2mg/2ml vial) 1 mg Q2H PRN IVP For Anxiety 10/12/18 14:30 11/11/18 14:29 Morphine Sulfate (Morphine Sulfate) 2 mg Q4H PRN IVP Severe Pain (Pain Scale 7-10) 10/09/18 14:15 10/16/18 14:14 10/14/18 09:30 Norepinephrine Bitartrate 16 mg/ Sodium Chloride 500 ml @ 0 mls/hr Q24H IV 10/09/18 21:00 11/08/18 20:59 10/11/18 17:56 Pantoprazole (Protonix) 40 mg EVERY 12 HOURS IVP 10/10/18 21:00 11/09/18 20:59 10/16/18 08:41 Piperacillin Sod/ Tazobactam Sod 3.375 gm/Dextrose 110 ml @ 27.5 mls/hr Q12H IVPB 10/11/18 18:00 10/18/18 17:59 10/16/18 05:44 Rifaximin (Xifaxan) 550 mg EVERY 12 HOURS ORAL 10/12/18 21:00 10/19/18 20:59 10/16/18 08:41 Sodium Chloride 1,000 ml @ 50 mls/hr Q20H IV 10/14/18 13:45 11/10/18 13:44 10/16/18 04:27 Vasopressin 100 units/Sodium Chloride 105 ml @ 2.52 mls/hr Q24H IV 10/10/18 14:00 11/09/18 13:59 10/12/18 08:06 Wesley Akers MD Oct 16, 2018 12:11
--- NOTE | 2018-10-16 12:23 | Nephrology Progress Note ---
Assessment/Plan Problem List: (1) JONNATHAN (acute kidney injury) (2) Shock liver (3) Septic shock (4) Respiratory disorder with ventilator dependence Assessment - Acute Oliguric Renal Failure Cr down to 2.4 - Respiratory disorder with ventilator dependence - Septic shock , Leukocytosis - Pneumonia - Liver cirrhosis - Obese - Anemia . Plan transfused 2 units previously down on IV fluid Hemodynamic support Pulmunary support Monitor renal parameters avoid nephrotoxics as best as possible per orders discussed with RN Subjective ROS Limited/Unobtainable: Yes Objective Objective Last 24 Hour Vital Signs Date Time Temp Pulse Resp B/P (MAP) Pulse Ox O2 Delivery O2 Flow Rate FiO2 10/16/18 11:01 117 29 40 10/16/18 10:00 105 20 145/91 (109) 100 10/16/18 09:00 102 20 144/90 (108) 100 10/16/18 08:41 108 10/16/18 08:40 107 25 40 10/16/18 08:40 100 10/16/18 08:00 40 10/16/18 08:00 98.8 108 22 162/95 (117) 100 10/16/18 08:00 Mechanical Ventilator 10/16/18 08:00 108 10/16/18 07:07 107 20 40 10/16/18 07:00 109 151/98 (115) 100 10/16/18 06:00 99 153/70 (97) 100 10/16/18 05:03 103 20 40 10/16/18 05:00 102 161/76 (104) 99 10/16/18 04:00 Mechanical Ventilator 10/16/18 04:00 98.4 101 20 161/70 (100) 99 10/16/18 04:00 40 10/16/18 04:00 105 10/16/18 03:06 107 22 40 10/16/18 03:00 106 125/72 (89) 10/16/18 02:00 107 20 143/73 (96) 97 10/16/18 01:18 105 22 40 10/16/18 01:00 108 20 142/69 (93) 98 10/16/18 00:00 103 20 149/66 (93) 99 10/16/18 00:00 Mechanical Ventilator 10/15/18 23:26 98 20 40 10/15/18 23:00 98.3 100 20 130/60 (83) 99 10/15/18 22:35 20 Mechanical Ventilator 40 10/15/18 22:00 20 Mechanical Ventilator 40 10/15/18 22:00 107 21 135/60 (85) 99 10/15/18 21:30 107 21 144/65 (91) 99 10/15/18 21:29 103 20 40 10/15/18 21:00 105 21 140/70 (93) 99 10/15/18 21:00 22 Mechanical Ventilator 40 10/15/18 21:00 127/59 10/15/18 20:30 110 20 143/63 (89) 99 10/15/18 20:00 115 10/15/18 20:00 115 20 128/68 (88) 99 10/15/18 20:00 40 10/15/18 20:00 20 Mechanical Ventilator 40 10/15/18 20:00 Mechanical Ventilator 10/15/18 19:30 98.1 115 22 128/73 (91) 100 10/15/18 19:09 115 21 40 10/15/18 19:00 113 19 138/74 (95) 100 10/15/18 18:00 108 21 156/83 (107) 99 10/15/18 17:14 108 21 40 10/15/18 17:00 112 18 140/68 (92) 100 10/15/18 16:00 Mechanical Ventilator 10/15/18 16:00 115 10/15/18 16:00 98.0 115 22 98/75 (83) 99 10/15/18 16:00 40 10/15/18 15:22 111 20 40 10/15/18 15:00 112 11 122/58 (79) 98 10/15/18 14:00 119 21 135/63 (87) 99 10/15/18 13:02 125 29 40 10/15/18 13:00 126 23 180/88 (118) 98 10/15/18 13:00 40 10/15/18 13:00 126 23 180/88 (118) 98 Intake and Output 10/15/18 10/16/18 19:00 07:00 Intake Total 782.5 ml 1058.0 ml Output Total 2395 ml 1540 ml Balance -1612.5 ml -482.0 ml IV Total 682.5 ml 663.0 ml Tube Feeding 100 ml 335 ml Other 60 ml Output Urine Total 1195 ml 940 ml Stool Total 1200 ml 600 ml Laboratory Tests 10/16/18 04:30: White Blood Count 14.5H, Red Blood Count 3.18L, Hemoglobin 9.8L, Hematocrit 30.2L, Mean Corpuscular Volume 95, Mean Corpuscular Hemoglobin 30.9, Mean Corpuscular Hemoglobin Concent 32.6, Red Cell Distribution Width 17.6H, Platelet Count 48L, Mean Platelet Volume 6.8, Neutrophils (%) (Auto) , Lymphocytes (%) (Auto) , Monocytes (%) (Auto) , Eosinophils (%) (Auto) , Basophils (%) (Auto) , Differential Total Cells Counted 100, Neutrophils % ( Manual) 85H, Lymphocytes % (Manual) 7L, Monocytes % (Manual) 5, Eosinophils % ( Manual) 1, Basophils % (Manual) 0, Band Neutrophils 2, Platelet Estimate DecreasedL, Platelet Morphology Normal, Anisocytosis 1+, Sodium Level 154H, Potassium Level 3.5, Chloride Level 122H, Carbon Dioxide Level 19L, Anion Gap 13 , Blood Urea Nitrogen 45H, Creatinine 2.4H, Estimat Glomerular Filtration Rate 20.7, Glucose Level 179H, Calcium Level 9.0, Total Bilirubin 4.2H, Direct Bilirubin 3.1H, Aspartate Amino Transf (AST/SGOT) 104H, Alanine Aminotransferase (ALT/SGPT) 827H, Alkaline Phosphatase 559H, Ammonia 57H, Total Protein 4.9L, Albumin 1.7L, Globulin 3.2, Albumin/Globulin Ratio 0.5L, Digoxin Level 1.4 10/16/18 09:55: Arterial Blood pH 7.324L, Arterial Blood Partial Pressure CO2 32.3L, Arterial Blood Partial Pressure O2 97.8, Arterial Blood HCO3 16.4*L, Arterial Blood Oxygen Saturation 96.2, Arterial Blood Base Excess -8.6L, Ortiz Test Positive Height (Feet): 5 Height (Inches): 1.00 Weight (Pounds): 250 General Appearance: no apparent distress Cardiovascular: tachycardia Abdomen: distended Extremities: other - edematous Alex Cueto MD Oct 16, 2018 12:23
--- NOTE | 2018-10-16 13:15 | Surgery Progress Note ---
Surgery Progress Note Subjective Additional Comments leukocytosis. weaning well from vent. no acute events. comfortable. family at bedside. labs noted. Objective Last 24 Hour Vital Signs Date Time Temp Pulse Resp B/P (MAP) Pulse Ox O2 Delivery O2 Flow Rate FiO2 10/16/18 12:00 114 10/16/18 12:00 Mechanical Ventilator 10/16/18 12:00 40 10/16/18 11:01 117 29 40 10/16/18 10:00 105 20 145/91 (109) 100 10/16/18 09:00 102 20 144/90 (108) 100 10/16/18 08:41 108 10/16/18 08:40 107 25 40 10/16/18 08:40 100 10/16/18 08:40 40 10/16/18 08:00 40 10/16/18 08:00 98.8 108 22 162/95 (117) 100 10/16/18 08:00 Mechanical Ventilator 10/16/18 08:00 108 10/16/18 07:07 107 20 40 10/16/18 07:00 109 151/98 (115) 100 10/16/18 06:00 99 153/70 (97) 100 10/16/18 05:03 103 20 40 10/16/18 05:00 102 161/76 (104) 99 10/16/18 04:00 Mechanical Ventilator 10/16/18 04:00 98.4 101 20 161/70 (100) 99 10/16/18 04:00 40 10/16/18 04:00 105 10/16/18 03:06 107 22 40 10/16/18 03:00 106 125/72 (89) 10/16/18 02:00 107 20 143/73 (96) 97 10/16/18 01:18 105 22 40 10/16/18 01:00 108 20 142/69 (93) 98 10/16/18 00:00 103 20 149/66 (93) 99 10/16/18 00:00 Mechanical Ventilator 10/15/18 23:26 98 20 40 10/15/18 23:00 98.3 100 20 130/60 (83) 99 10/15/18 22:35 20 Mechanical Ventilator 40 10/15/18 22:00 20 Mechanical Ventilator 40 10/15/18 22:00 107 21 135/60 (85) 99 10/15/18 21:30 107 21 144/65 (91) 99 10/15/18 21:29 103 20 40 10/15/18 21:00 105 21 140/70 (93) 99 10/15/18 21:00 22 Mechanical Ventilator 40 10/15/18 21:00 127/59 10/15/18 20:30 110 20 143/63 (89) 99 10/15/18 20:00 115 10/15/18 20:00 115 20 128/68 (88) 99 10/15/18 20:00 40 10/15/18 20:00 20 Mechanical Ventilator 40 10/15/18 20:00 Mechanical Ventilator 10/15/18 19:30 98.1 115 22 128/73 (91) 100 10/15/18 19:09 115 21 40 10/15/18 19:00 113 19 138/74 (95) 100 10/15/18 18:00 108 21 156/83 (107) 99 10/15/18 17:14 108 21 40 10/15/18 17:00 112 18 140/68 (92) 100 10/15/18 16:00 Mechanical Ventilator 10/15/18 16:00 115 10/15/18 16:00 98.0 115 22 98/75 (83) 99 10/15/18 16:00 40 10/15/18 15:22 111 20 40 10/15/18 15:00 112 11 122/58 (79) 98 10/15/18 14:00 119 21 135/63 (87) 99 I&O Intake and Output 10/15/18 10/16/18 18:59 06:59 Intake Total 762.5 ml 1033.0 ml Output Total 2315 ml 1570 ml Balance -1552.5 ml -537.0 ml IV Total 682.5 ml 663.0 ml Tube Feeding 80 ml 310 ml Other 60 ml Output Urine Total 1115 ml 970 ml Stool Total 1200 ml 600 ml Drains: other Cardiovascular: RSR Respiratory: clear Abdomen: soft, non-tender, non-distended Extremities: no cyanosis Laboratory Tests Test 10/16/18 04:30 10/16/18 09:55 White Blood Count 14.5 K/UL (4.8-10.8) H Red Blood Count 3.18 M/UL (4.20-5.40) L Hemoglobin 9.8 G/DL (12.0-16.0) L Hematocrit 30.2 % (37.0-47.0) L Mean Corpuscular Volume 95 FL (80-99) Mean Corpuscular Hemoglobin 30.9 PG (27.0-31.0) Mean Corpuscular Hemoglobin Concent 32.6 G/DL (32.0-36.0) Red Cell Distribution Width 17.6 % (11.6-14.8) H Platelet Count 48 K/UL (150-450) L Mean Platelet Volume 6.8 FL (6.5-10.1) Neutrophils (%) (Auto) % (45.0-75.0) Lymphocytes (%) (Auto) % (20.0-45.0) Monocytes (%) (Auto) % (1.0-10.0) Eosinophils (%) (Auto) % (0.0-3.0) Basophils (%) (Auto) % (0.0-2.0) Differential Total Cells Counted 100 Neutrophils % (Manual) 85 % (45-75) H Lymphocytes % (Manual) 7 % (20-45) L Monocytes % (Manual) 5 % (1-10) Eosinophils % (Manual) 1 % (0-3) Basophils % (Manual) 0 % (0-2) Band Neutrophils 2 % (0-8) Platelet Estimate Decreased L Platelet Morphology Normal Anisocytosis 1+ Sodium Level 154 MMOL/L (136-145) H Potassium Level 3.5 MMOL/L (3.5-5.1) Chloride Level 122 MMOL/L (98-107) H Carbon Dioxide Level 19 MMOL/L (21-32) L Anion Gap 13 mmol/L (5-15) Blood Urea Nitrogen 45 mg/dL (7-18) H Creatinine 2.4 MG/DL (0.55-1.30) H Estimat Glomerular Filtration Rate 20.7 mL/min (>60) Glucose Level 179 MG/DL (74-106) H Calcium Level 9.0 MG/DL (8.5-10.1) Total Bilirubin 4.2 MG/DL (0.2-1.0) H Direct Bilirubin 3.1 MG/DL (0.0-0.3) H Aspartate Amino Transf (AST/SGOT) 104 U/L (15-37) H Alanine Aminotransferase (ALT/SGPT) 827 U/L (12-78) H Alkaline Phosphatase 559 U/L (46-116) H Ammonia 57 umol/L (11-32) H Total Protein 4.9 G/DL (6.4-8.2) L Albumin 1.7 G/DL (3.4-5.0) L Globulin 3.2 g/dL Albumin/Globulin Ratio 0.5 (1.0-2.7) L Digoxin Level 1.4 NG/ML (0.9-2.0) Arterial Blood pH 7.324 (7.350-7.450) Arterial Blood Partial Pressure CO2 32.3 mmHg (35.0-45.0) L Arterial Blood Partial Pressure O2 97.8 mmHg (75.0-100.0) Arterial Blood HCO3 16.4 mmol/L (22.0-26.0) *L Arterial Blood Oxygen Saturation 96.2 % (95-100) Arterial Blood Base Excess -8.6 (-2-2) L Ortiz Test Positive Plan Problems: (1) Multiple injuries due to trauma (2) Sepsis Assessment & Plan: Labs noted lactic acidosis improved with resuscitation CT findings: Limited assessment of the GI tract, due to lack of enteric contrast administration. Exam is also limited due to patient motion artifact and lack of IV contrast administration Evidence of hepatic cirrhosis Small amount of ascites, likely related to the above Surgically absent gallbladder Bilateral basilar pulmonary parenchymal atelectatic changes and possible patchy consolidation Minimal edema of the bilateral flank subcutaneous fat Other findings as noted, including degenerative spondylosis, right hepatic lobe capsular calcification, Quiroz catheter has made a great improvement. denies abd pain. labs improved. decompensated liver cirrhosis LFT's abnormal leukocytosis cont with ICU care overall improved but prognosis still guarded -npo -iv fluids -iv abx -trend labs -Wean vent as tolerated will follow with recs thank you (3) Liver cirrhosis Josh Samuel Oct 16, 2018 13:15
--- NOTE | 2018-10-16 13:24 | NUR ---
NURSE NOTES: Patient extubated, VSS, Tolerating well. Will continue plan of care.
--- NOTE | 2018-10-16 13:24 | NUR ---
RESPIRATORY NOTE: pt successfully extubated at 1315 with no resp distress or post stridor. RN at bedside. pt placed on CA-40% with mask. will cont to monitor.
[2018-10-16] MEDS: VASOPRESSIN IV SCH (14:00)
[2018-10-16] MEDS: NS IV SCH (14:00)
--- NOTE | 2018-10-16 14:00 | NUR ---
NURSE NOTES: BS 120 no coverage given due to NPO status.
[2018-10-16] MEDS ORDERED: Tubing IV Secondary IV ONE (15:57)
[2018-10-16] MEDS ORDERED: NS 275ml ONE (15:57)
--- NOTE | 2018-10-16 16:00 | NUR ---
NURSE NOTES: Patient turned and repositioned. No new orders. VSS. WIll continue plan of care.
--- NOTE | 2018-10-16 17:58 | General Progress Note ---
Assessment/Plan Assessment/Plan Assessment and Recs: # Leukocytosis/Elevated white blood cell count, unspecified likely related to underlying stress reaction, or underlying infection --> have reviewed peripheral smear and bandemia/neutrophilia noted --> continue antibiotics if they have been started by ID team --> monitor for resolution # Thrombocytopenia - potential causes multifactorial, evaluate liver and viral etiologies to begin, also could be related to underlying medications patient has received. Hx of cirrhosis in the past noted on us --> Hep panel and HIV negative --> CT a/p to evaluate for cirrhosis and hsm does show cirrhosis as well as us --> Peripheral smear ordered to evaluate for blasts /schistocytes is negative --> abx and other meds have been reviewed --> ok for ppx if plt >50k w/ either heparin or lovenox --> Transfuse if Plt < 20k and fever, or if Plt < 10k without fever --> HIT is pending # Anemia of iron deficiency as noted with low % sat and tibc elevated --> Anemia workup has been reviewed --> No evidence of hemolysis is noted, peripheral smear has been reviewed. --> Hgb goal >7. Transfuse prn. --> Iron IV X 5 days to continue --> Medications have been reviewed # CEA of 10.5 --> Ct of abdomen/pelvis reviewed and is negative # Sepsis likely contributing to low plts --> on abx as needed # Shock, hypovolemic and distributive --> per id and pulm/cc care # Multisystem organ failure. # Lactic acidosis. # JONNATHAN. # Abnormal LFTs, likely shock liver. # Abnormal troponin, likely demand ischemia. # Obesity. # Respiratory failure on vent --> per pulm/cc The timing of this note does not necessarily reflect the time of the patient was seen. Greatly appreciate consultation! Subjective ROS Limited/Unobtainable: Yes Allergies: Coded Allergies: No Known Allergies (Unverified , 05/06/18) Subjective 3/1: Pt was seen in ICU on Vent and off pressors, developed atrial fib, wbc trending down to 13, plt trending down to 60 3/3: remains in the icu, monitoring labs, plts stabilizing, remains critically ill, cea elev 3/4: In ICU on Vent and off pressors, plt 62, no events 3/5 wbc trending up at 14,plt low at 48,weaning well from vent. no acute events , family at bedside. Objective Last 24 Hour Vital Signs Date Time Temp Pulse Resp B/P (MAP) Pulse Ox O2 Delivery O2 Flow Rate FiO2 10/16/18 16:00 106 10/16/18 15:00 112 18 152/77 (102) 100 10/16/18 14:00 115 20 150/78 (102) 100 10/16/18 13:23 Venturi Mask 12.0 40 10/16/18 13:22 97 Venturi Mask 12.0 40 10/16/18 13:22 Venturi Mask 12.0 40 10/16/18 13:00 119 20 151/80 (103) 100 10/16/18 12:00 114 10/16/18 12:00 Mechanical Ventilator 10/16/18 12:00 98.7 120 20 158/86 (110) 100 10/16/18 12:00 40 10/16/18 11:01 117 29 40 10/16/18 11:00 117 20 152/84 (106) 100 10/16/18 10:00 105 20 145/91 (109) 100 10/16/18 09:00 102 20 144/90 (108) 100 10/16/18 08:41 108 10/16/18 08:40 107 25 40 10/16/18 08:40 100 10/16/18 08:40 40 10/16/18 08:00 40 10/16/18 08:00 98.8 108 22 162/95 (117) 100 10/16/18 08:00 Mechanical Ventilator 10/16/18 08:00 108 10/16/18 07:07 107 20 40 10/16/18 07:00 109 151/98 (115) 100 10/16/18 06:00 99 153/70 (97) 100 10/16/18 05:03 103 20 40 10/16/18 05:00 102 161/76 (104) 99 10/16/18 04:00 Mechanical Ventilator 10/16/18 04:00 98.4 101 20 161/70 (100) 99 10/16/18 04:00 40 10/16/18 04:00 105 10/16/18 03:06 107 22 40 10/16/18 03:00 106 125/72 (89) 10/16/18 02:00 107 20 143/73 (96) 97 10/16/18 01:18 105 22 40 10/16/18 01:00 108 20 142/69 (93) 98 10/16/18 00:00 103 20 149/66 (93) 99 10/16/18 00:00 Mechanical Ventilator 10/15/18 23:26 98 20 40 10/15/18 23:00 98.3 100 20 130/60 (83) 99 10/15/18 22:35 20 Mechanical Ventilator 40 10/15/18 22:00 20 Mechanical Ventilator 40 10/15/18 22:00 107 21 135/60 (85) 99 10/15/18 21:30 107 21 144/65 (91) 99 10/15/18 21:29 103 20 40 10/15/18 21:00 105 21 140/70 (93) 99 10/15/18 21:00 22 Mechanical Ventilator 40 10/15/18 21:00 127/59 10/15/18 20:30 110 20 143/63 (89) 99 10/15/18 20:00 115 10/15/18 20:00 115 20 128/68 (88) 99 10/15/18 20:00 40 10/15/18 20:00 20 Mechanical Ventilator 40 10/15/18 20:00 Mechanical Ventilator 10/15/18 19:30 98.1 115 22 128/73 (91) 100 10/15/18 19:09 115 21 40 10/15/18 19:00 113 19 138/74 (95) 100 10/15/18 18:00 108 21 156/83 (107) 99 Intake and Output 10/15/18 10/16/18 18:59 06:59 Intake Total 762.5 ml 1033.0 ml Output Total 2315 ml 1570 ml Balance -1552.5 ml -537.0 ml IV Total 682.5 ml 663.0 ml Tube Feeding 80 ml 310 ml Other 60 ml Output Urine Total 1115 ml 970 ml Stool Total 1200 ml 600 ml Laboratory Tests 10/16/18 04:30: White Blood Count 14.5H, Red Blood Count 3.18L, Hemoglobin 9.8L, Hematocrit 30.2L, Mean Corpuscular Volume 95, Mean Corpuscular Hemoglobin 30.9, Mean Corpuscular Hemoglobin Concent 32.6, Red Cell Distribution Width 17.6H, Platelet Count 48L, Mean Platelet Volume 6.8, Neutrophils (%) (Auto) , Lymphocytes (%) (Auto) , Monocytes (%) (Auto) , Eosinophils (%) (Auto) , Basophils (%) (Auto) , Differential Total Cells Counted 100, Neutrophils % ( Manual) 85H, Lymphocytes % (Manual) 7L, Monocytes % (Manual) 5, Eosinophils % ( Manual) 1, Basophils % (Manual) 0, Band Neutrophils 2, Platelet Estimate DecreasedL, Platelet Morphology Normal, Anisocytosis 1+, Sodium Level 154H, Potassium Level 3.5, Chloride Level 122H, Carbon Dioxide Level 19L, Anion Gap 13 , Blood Urea Nitrogen 45H, Creatinine 2.4H, Estimat Glomerular Filtration Rate 20.7, Glucose Level 179H, Calcium Level 9.0, Total Bilirubin 4.2H, Direct Bilirubin 3.1H, Aspartate Amino Transf (AST/SGOT) 104H, Alanine Aminotransferase (ALT/SGPT) 827H, Alkaline Phosphatase 559H, Ammonia 57H, Total Protein 4.9L, Albumin 1.7L, Globulin 3.2, Albumin/Globulin Ratio 0.5L, Digoxin Level 1.4 10/16/18 09:55: Arterial Blood pH 7.324L, Arterial Blood Partial Pressure CO2 32.3L, Arterial Blood Partial Pressure O2 97.8, Arterial Blood HCO3 16.4*L, Arterial Blood Oxygen Saturation 96.2, Arterial Blood Base Excess -8.6L, Ortiz Test Positive Height (Feet): 5 Height (Inches): 1.00 Weight (Pounds): 250 Objective PHYSICAL EXAMINATION: VITAL SIGNS: reviewed, saturating 100% on VENT GENERAL: She is an obese female, confused. HEENT: Normocephalic and atraumatic. Oropharynx is clear with dry mucous membranes. NECK: Supple without lymphadenopathy or JVP. CHEST: Clear. ++ Vent HEART: Regular. ABDOMEN: Benign. EXTREMITIES: No cyanosis, clubbing, or edema. There are some ecchymoses in bilateral lower extremities. Kurtis Villagomez MD Oct 16, 2018 17:58
--- NOTE | 2018-10-16 18:00 | NUR ---
NURSE NOTES: VSS. No distress noted. Will continue plan of care.
--- NOTE | 2018-10-16 19:03 | Pulmonolgy Critical Care Note ---
Critical Care - Asmt/Plan Problems: (1) Respiratory disorder with ventilator dependence (2) Septic shock (3) Pneumonia (4) Liver cirrhosis Assessment/Plan: ASSESSMENT: The patient is a 58-year-old female with a history of obesity, diabetes, hypertension, hyperlipidemia, and sciatica with chronic low back pain , DDD/DJD, presenting after a mechanical fall with altered mental status and confusion with likely sepsis and multisystem organ failure. PROBLEM LIST: 1. VDRF, EXTUBATED 10/16/18 2. Sepsis 3. Shock, hypovolemic and distributive. 4. Multisystem organ failure. 5. Lactic acidosis. 6. Anion gap metabolic acidosis. 7. JONNATHAN - BETTER 7. Abnormal LFTs, likely shock liver. 8. Abnormal troponin, likely demand ischemia. 9. Elevated D-dimer and PASP concerning for an acute PE 10. Obesity. 11. Diabetes. 12. Hypertension. 13. Chronic low back pain and sciatica. 14. Anemia/FOBT + 15. Thrombocytopenia 16. AFcRVR now in NSR 17. HyperNa TREATMENT PLAN: 1. Optimize pulmonary hygiene/mobilize as tolerated 2. Titrate down FiO2 to keep SaO2 < 90% 3. Zosyn (D8) per ID 4. Off pressors 5. Change IVF to D5W@50 6. SSI, monitor BS 7. Follow up cards recs 8. FLOOR MOLDER eval in am, NPO until then 9. VQ scan ordered 10. DVT prophylaxis: hep held 2/2 thrombocytopenia, ? HIT Ab panel 11. F/U sap consultant recs 35 minutes of critical care time was spent. D/R RN, @ bedside and consultants Critical Care - Objective Last 24 Hour Vital Signs Date Time Temp Pulse Resp B/P (MAP) Pulse Ox O2 Delivery O2 Flow Rate FiO2 10/16/18 18:00 108 19 144/72 (96) 100 10/16/18 17:00 110 18 148/70 (96) 100 10/16/18 16:00 98.8 105 18 150/74 (99) 100 10/16/18 16:00 106 10/16/18 16:00 Venturi Mask Venturi Mask 10/16/18 15:00 112 18 152/77 (102) 100 10/16/18 14:00 115 20 150/78 (102) 100 10/16/18 13:23 Venturi Mask 12.0 40 10/16/18 13:22 97 Venturi Mask 12.0 40 10/16/18 13:22 Venturi Mask 12.0 40 10/16/18 13:00 119 20 151/80 (103) 100 10/16/18 12:00 114 10/16/18 12:00 Mechanical Ventilator 10/16/18 12:00 98.7 120 20 158/86 (110) 100 10/16/18 12:00 40 10/16/18 11:01 117 29 40 10/16/18 11:00 117 20 152/84 (106) 100 10/16/18 10:00 105 20 145/91 (109) 100 10/16/18 09:00 102 20 144/90 (108) 100 10/16/18 08:41 108 10/16/18 08:40 107 25 40 10/16/18 08:40 100 10/16/18 08:40 40 10/16/18 08:00 40 10/16/18 08:00 98.8 108 22 162/95 (117) 100 10/16/18 08:00 Mechanical Ventilator 10/16/18 08:00 108 10/16/18 07:07 107 20 40 10/16/18 07:00 109 151/98 (115) 100 10/16/18 06:00 99 153/70 (97) 100 10/16/18 05:03 103 20 40 10/16/18 05:00 102 161/76 (104) 99 10/16/18 04:00 Mechanical Ventilator 10/16/18 04:00 98.4 101 20 161/70 (100) 99 10/16/18 04:00 40 10/16/18 04:00 105 10/16/18 03:06 107 22 40 10/16/18 03:00 106 125/72 (89) 10/16/18 02:00 107 20 143/73 (96) 97 10/16/18 01:18 105 22 40 10/16/18 01:00 108 20 142/69 (93) 98 10/16/18 00:00 103 20 149/66 (93) 99 10/16/18 00:00 Mechanical Ventilator 10/15/18 23:26 98 20 40 10/15/18 23:00 98.3 100 20 130/60 (83) 99 10/15/18 22:35 20 Mechanical Ventilator 40 10/15/18 22:00 20 Mechanical Ventilator 40 10/15/18 22:00 107 21 135/60 (85) 99 10/15/18 21:30 107 21 144/65 (91) 99 10/15/18 21:29 103 20 40 10/15/18 21:00 105 21 140/70 (93) 99 10/15/18 21:00 22 Mechanical Ventilator 40 10/15/18 21:00 127/59 10/15/18 20:30 110 20 143/63 (89) 99 10/15/18 20:00 115 10/15/18 20:00 115 20 128/68 (88) 99 10/15/18 20:00 40 10/15/18 20:00 20 Mechanical Ventilator 40 10/15/18 20:00 Mechanical Ventilator 10/15/18 19:30 98.1 115 22 128/73 (91) 100 10/15/18 19:09 115 21 40 10/15/18 19:00 113 19 138/74 (95) 100 Status: awake Condition: improving HEENT: atraumatic, normocephalic Neck: full ROM Lungs: clear Heart: HR/BP stable Abdomen: soft, non-tender, active bowel sounds Extremities: edema - 1+ edema Accucheck: 120 Blood Sugars: BS controlled Critical Care - Subjective ROS Limited/Unobtainable: Yes ICU Day: 8 Intubation Day: Extubated on FM Interval Events: NPO, Na inc, LFT's better AAOx4 Condition: improving IV Access: PICC EKG Rhythm: Sinus Tachycardia FI02: 40 Vent Support Breath Rate: 20 Vent Support Mode: CPAP Vent Tidal Volume: 500 Sputum Amount: Small PEEP: 5.0 PIP: 15 Fluids: NS@50 Tube Feeding Amount: 45 I&O: Intake and Output 10/15/18 10/16/18 19:00 07:00 Intake Total 782.5 ml 1058.0 ml Output Total 2395 ml 1540 ml Balance -1612.5 ml -482.0 ml IV Total 682.5 ml 663.0 ml Tube Feeding 100 ml 335 ml Other 60 ml Output Urine Total 1195 ml 940 ml Stool Total 1200 ml 600 ml Subjective: No F/C/CP/SOB/N/V/D/C ET-Tube: 7.0 ET Position: 21 Labs: Laboratory Tests Test 10/16/18 04:30 10/16/18 09:55 White Blood Count 14.5 K/UL (4.8-10.8) H Red Blood Count 3.18 M/UL (4.20-5.40) L Hemoglobin 9.8 G/DL (12.0-16.0) L Hematocrit 30.2 % (37.0-47.0) L Mean Corpuscular Volume 95 FL (80-99) Mean Corpuscular Hemoglobin 30.9 PG (27.0-31.0) Mean Corpuscular Hemoglobin Concent 32.6 G/DL (32.0-36.0) Red Cell Distribution Width 17.6 % (11.6-14.8) H Platelet Count 48 K/UL (150-450) L Mean Platelet Volume 6.8 FL (6.5-10.1) Neutrophils (%) (Auto) % (45.0-75.0) Lymphocytes (%) (Auto) % (20.0-45.0) Monocytes (%) (Auto) % (1.0-10.0) Eosinophils (%) (Auto) % (0.0-3.0) Basophils (%) (Auto) % (0.0-2.0) Differential Total Cells Counted 100 Neutrophils % (Manual) 85 % (45-75) H Lymphocytes % (Manual) 7 % (20-45) L Monocytes % (Manual) 5 % (1-10) Eosinophils % (Manual) 1 % (0-3) Basophils % (Manual) 0 % (0-2) Band Neutrophils 2 % (0-8) Platelet Estimate Decreased L Platelet Morphology Normal Anisocytosis 1+ Sodium Level 154 MMOL/L (136-145) H Potassium Level 3.5 MMOL/L (3.5-5.1) Chloride Level 122 MMOL/L (98-107) H Carbon Dioxide Level 19 MMOL/L (21-32) L Anion Gap 13 mmol/L (5-15) Blood Urea Nitrogen 45 mg/dL (7-18) H Creatinine 2.4 MG/DL (0.55-1.30) H Estimat Glomerular Filtration Rate 20.7 mL/min (>60) Glucose Level 179 MG/DL (74-106) H Calcium Level 9.0 MG/DL (8.5-10.1) Total Bilirubin 4.2 MG/DL (0.2-1.0) H Direct Bilirubin 3.1 MG/DL (0.0-0.3) H Aspartate Amino Transf (AST/SGOT) 104 U/L (15-37) H Alanine Aminotransferase (ALT/SGPT) 827 U/L (12-78) H Alkaline Phosphatase 559 U/L (46-116) H Ammonia 57 umol/L (11-32) H Total Protein 4.9 G/DL (6.4-8.2) L Albumin 1.7 G/DL (3.4-5.0) L Globulin 3.2 g/dL Albumin/Globulin Ratio 0.5 (1.0-2.7) L Digoxin Level 1.4 NG/ML (0.9-2.0) Arterial Blood pH 7.324 (7.350-7.450) Arterial Blood Partial Pressure CO2 32.3 mmHg (35.0-45.0) L Arterial Blood Partial Pressure O2 97.8 mmHg (75.0-100.0) Arterial Blood HCO3 16.4 mmol/L (22.0-26.0) *L Arterial Blood Oxygen Saturation 96.2 % (95-100) Arterial Blood Base Excess -8.6 (-2-2) L Ortiz Test Positive Renato Delarosa MD Oct 16, 2018 19:03
--- NOTE | 2018-10-16 19:12 | NUR ---
HAND-OFF: Report given to Alex PIERCE using sbar. vss. no distress noted.
--- NOTE | 2018-10-16 19:15 | NUR ---
NURSE NOTES: Received pt in bed with eyes open, sinus tach on the monitor with HR 115. No on cool aerosol sat 98-99%. Patient NPO at this time. MD Delarosa at the bedside. Order is get ST eval in the morning but RN to perform Bedside swallow at this time for PM Meds. LISA picc line to run D5W @ 100 cc/hr. PICC line flush and noted with some resistance. Quiroz cath draining by gravity. Rectal tube draining by gravity. Bed in lowest positions, side rails upx3. patient denies any pain or discomfort at this time. Will continue to monitor
--- NOTE | 2018-10-16 19:30 | NUR ---
NURSE NOTES: Bed Side swallow done. When thickened water was given patient was able to swallow. when given regular water patient noted to cough. MD Delarosa informed at this time. Will continue to monitor.
[2018-10-16] MEDS: Dyna-Hex 2% Top Sol 2oz TOPIC SCH (19:43)
--- NOTE | 2018-10-16 21:00 | NUR ---
NURSE NOTES: CHG bath given at this time. Patient turned and repositioned. Patient was able to swallow meds crushed and mixed with thickened water. Will continue to monitor.
[2018-10-16] MEDS: Iron Sucrose 100 MG in NS 55 ML IV SCH (21:16)
--- NOTE | 2018-10-16 22:07 | General Progress Note ---
Assessment/Plan Problem List: (1) Hypotension ICD Codes: I95.9 - Hypotension, unspecified SNOMED: 97705816 (2) Hyperglycemia ICD Codes: R73.9 - Hyperglycemia, unspecified SNOMED: 26106263 (3) Dyspnea ICD Codes: R06.00 - Dyspnea, unspecified SNOMED: 118795017 (4) Hypoxemia ICD Codes: R09.02 - Hypoxemia SNOMED: 248711422 (5) Contusion of left knee ICD Codes: S80.02XA - Contusion of left knee, initial encounter SNOMED: 25328141 (6) Sepsis ICD Codes: A41.9 - Sepsis, unspecified organism SNOMED: 49318768 (7) Septic shock ICD Codes: A41.9 - Sepsis, unspecified organism; R65.21 - Severe sepsis with septic shock SNOMED: 04525512 (8) Liver cirrhosis ICD Codes: K74.60 - Unspecified cirrhosis of liver SNOMED: 14198595 (9) Pneumonia ICD Codes: J18.9 - Pneumonia, unspecified organism SNOMED: 932271194 (10) Respiratory disorder with ventilator dependence ICD Codes: J98.9 - Respiratory disorder, unspecified; Z99.11 - Dependence on respirator [ventilator] status SNOMED: 27104010, 144998239 (11) Shock liver ICD Codes: K72.00 - Acute and subacute hepatic failure without coma SNOMED: 767754501 Status: unchanged Assessment/Plan no change afebrile resp failure check cultures poor prognosis cihrrosis sepsis obesity morbid pna elevated lft Subjective ROS Limited/Unobtainable: Yes Allergies: Coded Allergies: No Known Allergies (Unverified , 05/06/18) Objective Last 24 Hour Vital Signs Date Time Temp Pulse Resp B/P (MAP) Pulse Ox O2 Delivery O2 Flow Rate FiO2 10/16/18 19:00 112 17 150/77 (101) 100 10/16/18 18:00 108 19 144/72 (96) 100 10/16/18 17:00 110 18 148/70 (96) 100 10/16/18 16:00 98.8 105 18 150/74 (99) 100 10/16/18 16:00 106 10/16/18 16:00 Venturi Mask Venturi Mask 10/16/18 15:00 112 18 152/77 (102) 100 10/16/18 14:00 115 20 150/78 (102) 100 10/16/18 13:23 Venturi Mask 12.0 40 10/16/18 13:22 97 Venturi Mask 12.0 40 10/16/18 13:22 Venturi Mask 12.0 40 10/16/18 13:00 119 20 151/80 (103) 100 10/16/18 12:00 114 10/16/18 12:00 Mechanical Ventilator 10/16/18 12:00 98.7 120 20 158/86 (110) 100 10/16/18 12:00 40 10/16/18 11:01 117 29 40 10/16/18 11:00 117 20 152/84 (106) 100 10/16/18 10:00 105 20 145/91 (109) 100 10/16/18 09:00 102 20 144/90 (108) 100 10/16/18 08:41 108 10/16/18 08:40 107 25 40 10/16/18 08:40 100 10/16/18 08:40 40 10/16/18 08:00 40 10/16/18 08:00 98.8 108 22 162/95 (117) 100 10/16/18 08:00 Mechanical Ventilator 10/16/18 08:00 108 10/16/18 07:07 107 20 40 10/16/18 07:00 109 151/98 (115) 100 10/16/18 06:00 99 153/70 (97) 100 10/16/18 05:03 103 20 40 10/16/18 05:00 102 161/76 (104) 99 10/16/18 04:00 Mechanical Ventilator 10/16/18 04:00 98.4 101 20 161/70 (100) 99 10/16/18 04:00 40 10/16/18 04:00 105 10/16/18 03:06 107 22 40 10/16/18 03:00 106 125/72 (89) 10/16/18 02:00 107 20 143/73 (96) 97 10/16/18 01:18 105 22 40 10/16/18 01:00 108 20 142/69 (93) 98 10/16/18 00:00 103 20 149/66 (93) 99 10/16/18 00:00 Mechanical Ventilator 10/15/18 23:26 98 20 40 10/15/18 23:00 98.3 100 20 130/60 (83) 99 10/15/18 22:35 20 Mechanical Ventilator 40 Intake and Output 10/15/18 10/16/18 19:00 07:00 Intake Total 782.5 ml 1058.0 ml Output Total 2395 ml 1540 ml Balance -1612.5 ml -482.0 ml IV Total 682.5 ml 663.0 ml Tube Feeding 100 ml 335 ml Other 60 ml Output Urine Total 1195 ml 940 ml Stool Total 1200 ml 600 ml Laboratory Tests 10/16/18 04:30: White Blood Count 14.5H, Red Blood Count 3.18L, Hemoglobin 9.8L, Hematocrit 30.2L, Mean Corpuscular Volume 95, Mean Corpuscular Hemoglobin 30.9, Mean Corpuscular Hemoglobin Concent 32.6, Red Cell Distribution Width 17.6H, Platelet Count 48L, Mean Platelet Volume 6.8, Neutrophils (%) (Auto) , Lymphocytes (%) (Auto) , Monocytes (%) (Auto) , Eosinophils (%) (Auto) , Basophils (%) (Auto) , Differential Total Cells Counted 100, Neutrophils % ( Manual) 85H, Lymphocytes % (Manual) 7L, Monocytes % (Manual) 5, Eosinophils % ( Manual) 1, Basophils % (Manual) 0, Band Neutrophils 2, Platelet Estimate DecreasedL, Platelet Morphology Normal, Anisocytosis 1+, Sodium Level 154H, Potassium Level 3.5, Chloride Level 122H, Carbon Dioxide Level 19L, Anion Gap 13 , Blood Urea Nitrogen 45H, Creatinine 2.4H, Estimat Glomerular Filtration Rate 20.7, Glucose Level 179H, Calcium Level 9.0, Total Bilirubin 4.2H, Direct Bilirubin 3.1H, Aspartate Amino Transf (AST/SGOT) 104H, Alanine Aminotransferase (ALT/SGPT) 827H, Alkaline Phosphatase 559H, Ammonia 57H, Total Protein 4.9L, Albumin 1.7L, Globulin 3.2, Albumin/Globulin Ratio 0.5L, Digoxin Level 1.4 10/16/18 09:55: Arterial Blood pH 7.324L, Arterial Blood Partial Pressure CO2 32.3L, Arterial Blood Partial Pressure O2 97.8, Arterial Blood HCO3 16.4*L, Arterial Blood Oxygen Saturation 96.2, Arterial Blood Base Excess -8.6L, Ortiz Test Positive Height (Feet): 5 Height (Inches): 1.00 Weight (Pounds): 250 Cardiovascular: normal rate Abdomen: soft Michael Kelley MD Oct 16, 2018 22:07
--- NOTE | 2018-10-16 22:20 | NUR ---
NURSE NOTES: at the bedside at this time. updated given in regards to patient. Will continue to monitor
[2018-10-17] VITALS (15 sets, daily range): BP systolic 139–171; BP diastolic 61–82
--- NOTE | 2018-10-17 | NUR ---
NURSE NOTES: Patient continues to be on on cool aerosol at this time. sat 98%. No SOB or pain at this time. Patient does not want to be turned and this time. Will continue to monitor
--- NOTE | 2018-10-17 02:00 | NUR ---
NURSE NOTES: Patient refused to be turned at this time. patient noted to have some SOB when laying flat. Bed semi-fowlers at this time,. Continues on Cool Aerosol. Will continue to monitor
--- NOTE | 2018-10-17 04:00 | NUR ---
NURSE NOTES: Turned and repositioned at this time. Noted to have rhonchi and wheezes. Deep suctioned patient. Patient asked for ice chips. ice chips given at this time, no coughing noted. Will continue to monitor.
[2018-10-17] MEDS: Metoclopramide 10mg/2ml Inj IVP SCH ×3 (05:10→17:30)
[2018-10-17] MEDS: Piperacillin/Tazobactam 3.375 GM in D5W 110 ML IVPB SCH ×2 (05:37→18:00)
[2018-10-17] MEDS: NovoLOG Insulin Flexpen SUBQ SCH ×4 (05:39→21:00)
[2018-10-17 05:43] LABS: INR 1.4 (0.9-1.1)
[2018-10-17 05:49] LABS: HEMATOCRIT 37.6 % (37.0-47.0); HEMOGLOBIN 12.2 G/DL (12.0-16.0); MEAN CORPUSCULAR VOLUME 96 FL (80-99); PLATELET COUNT 41 K/UL (150-450); RED BLOOD COUNT 3.92 M/UL (4.20-5.40); RED CELL DISTRIBUTION WIDTH 17.9 % (11.6-14.8); WHITE BLOOD COUNT 10.7 K/UL (4.8-10.8)
--- NOTE | 2018-10-17 05:58 | NUR ---
NURSE NOTES: BS 175, coverage given as per sliding scale. Patient has Maintenance fluids of D5W at this time. Sleeping and resting comfortable. Will continue to monitor.
[2018-10-17 06:16] LABS: ALANINE AMINOTRANSFERASE 598 U/L (12-78); ALBUMIN 2.2 G/DL (3.4-5.0); ALBUMIN/GLOBULIN RATIO 0.7 (1.0-2.7); ALKALINE PHOSPHATASE 516 U/L (46-116); ANION GAP 14 mmol/L (5-15); ASPARTATE AMINO TRANSFERASE 80 U/L (15-37); BILIRUBIN,TOTAL 4.3 MG/DL (0.2-1.0); BLOOD UREA NITROGEN 44 mg/dL (7-18); CALCIUM 9.5 MG/DL (8.5-10.1); CARBON DIOXIDE 20 MMOL/L (21-32); CHLORIDE 121 MMOL/L (98-107); CREATININE 2.2 MG/DL (0.55-1.30); POTASSIUM 3.3 MMOL/L (3.5-5.1); SODIUM 155 MMOL/L (136-145)
--- NOTE | 2018-10-17 06:35 | General Progress Note ---
Assessment/Plan Problem List: (1) CAD (coronary artery disease) ICD Codes: I25.10 - Atherosclerotic heart disease of [place] coronary artery without angina pectoris SNOMED: 70879385 (2) RI (3) Thrombocytopenia ICD Codes: D69.6 - Thrombocytopenia, unspecified SNOMED: 175895711 (4) Respiratory failure ICD Codes: J96.90 - Respiratory failure, unspecified, unspecified whether with hypoxia or hypercapnia SNOMED: 228759032 (5) Dysphagia ICD Codes: R13.10 - Dysphagia, unspecified SNOMED: 59223151, 181251658 (6) Elevated CEA ICD Codes: R97.0 - Elevated carcinoembryonic antigen [CEA] SNOMED: 558478210 (7) Shock liver ICD Codes: K72.00 - Acute and subacute hepatic failure without coma SNOMED: 435099726 (8) Liver cirrhosis ICD Codes: K74.60 - Unspecified cirrhosis of liver SNOMED: 38808873 (9) Normocytic anemia ICD Codes: D64.9 - Anemia, unspecified SNOMED: 423191795 Assessment/Plan ppi BID monitor H&H fu LFTS>> improving work up for elevated CEA when more stable lasix and albumin combination xifaxan and lactulose reglan fu speech eval today ordered JAD,SMA,AMA Subjective ROS Limited/Unobtainable: No Allergies: Coded Allergies: No Known Allergies (Unverified , 05/06/18) Subjective extubated Objective Last 24 Hour Vital Signs Date Time Temp Pulse Resp B/P (MAP) Pulse Ox O2 Delivery O2 Flow Rate FiO2 10/17/18 06:00 103 160/82 (108) 98 10/17/18 05:00 101 24 153/76 (101) 98 10/17/18 04:00 Venturi Mask 10/17/18 04:00 98.4 103 31 150/67 (94) 98 10/17/18 04:00 103 10/17/18 03:00 102 24 145/75 (98) 98 10/17/18 02:00 101 24 156/80 (105) 98 10/17/18 01:00 98 24 158/71 (100) 98 10/17/18 00:00 Venturi Mask 10/17/18 00:00 98.3 99 22 157/81 (106) 98 10/17/18 00:00 107 10/16/18 23:00 107 24 143/82 (102) 98 10/16/18 22:00 107 26 143/82 (102) 98 10/16/18 21:00 111 18 189/89 (122) 86 10/16/18 20:00 96 Venturi Mask 12.0 40 10/16/18 20:00 107 10/16/18 20:00 Venturi Mask 12.0 40 10/16/18 20:00 106 10/16/18 20:00 Venturi Mask 10/16/18 20:00 98.6 106 18 169/93 (118) 97 10/16/18 19:00 112 17 150/77 (101) 100 10/16/18 18:00 108 19 144/72 (96) 100 10/16/18 17:00 110 18 148/70 (96) 100 10/16/18 16:00 98.8 105 18 150/74 (99) 100 10/16/18 16:00 106 10/16/18 16:00 Venturi Mask Venturi Mask 10/16/18 15:00 112 18 152/77 (102) 100 10/16/18 14:00 115 20 150/78 (102) 100 10/16/18 13:23 Venturi Mask 12.0 40 10/16/18 13:22 97 Venturi Mask 12.0 40 10/16/18 13:22 Venturi Mask 12.0 40 10/16/18 13:00 119 20 151/80 (103) 100 10/16/18 12:00 114 10/16/18 12:00 Mechanical Ventilator 10/16/18 12:00 98.7 120 20 158/86 (110) 100 10/16/18 12:00 40 10/16/18 11:01 117 29 40 10/16/18 11:00 117 20 152/84 (106) 100 10/16/18 10:00 105 20 145/91 (109) 100 10/16/18 09:00 102 20 144/90 (108) 100 10/16/18 08:41 108 10/16/18 08:40 107 25 40 10/16/18 08:40 100 10/16/18 08:40 40 10/16/18 08:00 40 10/16/18 08:00 98.8 108 22 162/95 (117) 100 10/16/18 08:00 Mechanical Ventilator 10/16/18 08:00 108 10/16/18 07:07 107 20 40 10/16/18 07:00 109 151/98 (115) 100 Intake and Output 10/16/18 10/17/18 19:00 07:00 Intake Total 495 ml 1082.5 ml Output Total 670 ml 655 ml Balance -175 ml 427.5 ml IV Total 1082.5 ml Tube Feeding 495 ml Output Urine Total 670 ml 655 ml Laboratory Tests 10/16/18 09:55: Arterial Blood pH 7.324L, Arterial Blood Partial Pressure CO2 32.3L, Arterial Blood Partial Pressure O2 97.8, Arterial Blood HCO3 16.4*L, Arterial Blood Oxygen Saturation 96.2, Arterial Blood Base Excess -8.6L, Ortiz Test Positive 10/17/18 04:30: White Blood Count 10.7, Red Blood Count 3.92L, Hemoglobin 12.2, Hematocrit 37.6 , Mean Corpuscular Volume 96, Mean Corpuscular Hemoglobin 31.1H, Mean Corpuscular Hemoglobin Concent 32.5, Red Cell Distribution Width 17.9H, Platelet Count 41L, Mean Platelet Volume 6.4L, Neutrophils (%) (Auto) , Lymphocytes (%) (Auto) , Monocytes (%) (Auto) , Eosinophils (%) (Auto) , Basophils (%) (Auto) , Prothrombin Time 14.7H, Prothromb Time International Ratio 1.4H, Sodium Level 155H, Potassium Level 3.3L, Chloride Level 121H, Carbon Dioxide Level 20L, Anion Gap 14, Blood Urea Nitrogen 44H, Creatinine 2.2H , Estimat Glomerular Filtration Rate 22.9, Glucose Level 205H, Calcium Level 9.5 , Total Bilirubin 4.3H, Direct Bilirubin 3.0H, Aspartate Amino Transf (AST/SGOT ) 80H, Alanine Aminotransferase (ALT/SGPT) 598H, Alkaline Phosphatase 516H, Total Protein 5.3L, Albumin 2.2L, Globulin 3.1, Albumin/Globulin Ratio 0.7L Height (Feet): 5 Height (Inches): 1.00 Weight (Pounds): 251 General Appearance: lethargic EENT: normal ENT inspection Neck: supple Cardiovascular: tachycardia Respiratory/Chest: decreased breath sounds Abdomen: normal bowel sounds, non tender, soft Extremities: non-tender, swelling Vosoghi,Samuel MD Oct 17, 2018 06:35
--- NOTE | 2018-10-17 07:11 | NUR ---
HAND-OFF: Report given to Ani RN using SBAR. VS Stable. No signs of distress.
--- NOTE | 2018-10-17 08:00 | NUR ---
NURSE NOTES: Received patient, opens eyes spontaneously, able to make needs known. Patient rn cardiac showing ST HR 104. Patient is on 2 L nasal cannula, audible wheezing present. Bedside RN swallow - able to take meds with apple sauce - refused liquid medications. Rectal tube intact. Quiroz catheter intact, draining. Edematous, continuing IV lasix per MD order. L upper arm picc D5 at 50 cc/hr - increased to 100 cc/hr per MD order. Patient is stable at this time. VSS. No distress noted. Will continue plan of care.
[2018-10-17] MEDS: Lactulose 20gm/30ml UDC NG SCH ×3 (09:00→18:00)
[2018-10-17] MEDS: Pantoprazole Inj IVP SCH ×2 (09:32→20:23)
[2018-10-17] MEDS: Digoxin 0.125mg tab NG SCH (09:32)
[2018-10-17] MEDS: Amiodarone 200mg tab NG SCH (09:32)
--- NOTE | 2018-10-17 09:43 | Pulmonolgy Critical Care Note ---
Critical Care - Asmt/Plan Problems: (1) Respiratory disorder with ventilator dependence (2) Septic shock (3) Pneumonia (4) Liver cirrhosis Assessment/Plan: ASSESSMENT: The patient is a 58-year-old female with a history of obesity, diabetes, hypertension, hyperlipidemia, and sciatica with chronic low back pain , DDD/DJD, presenting after a mechanical fall with altered mental status and confusion with likely sepsis and multisystem organ failure. PROBLEM LIST: 1. VDRF, EXTUBATED 10/16/18 2. Sepsis 3. Shock, hypovolemic and distributive. 4. Multisystem organ failure. 5. Lactic acidosis. 6. Anion gap metabolic acidosis. 7. JONNATHAN - BETTER 7. Abnormal LFTs, likely shock liver. 8. Abnormal troponin, likely demand ischemia. 9. Elevated D-dimer and PASP concerning for an acute PE 10. Obesity. 11. Diabetes. 12. Hypertension. 13. Chronic low back pain and sciatica. 14. Anemia/FOBT + 15. Thrombocytopenia 16. AFcRVR now in NSR 17. HyperNa TREATMENT PLAN: 1. Optimize pulmonary hygiene/mobilize as tolerated 2. Titrate down FiO2 to keep SaO2 < 90% 3. Zosyn (D9) per ID 4. Off pressors 5. Inc D5W to 100, continue IV Lasix 6. SSI, monitor BS 7. Follow up cards recs 8. TAM[employer] MACHINE [employer]EDER eval 9. VQ scan scheduled today @ 12 10. DVT prophylaxis: hep held 2/2 thrombocytopenia, ? HIT Ab panel 11. F/U service delivery management consultant recs 12. Transfer to [facility] 35 minutes of critical care time was spent. D/R RN, @ bedside and consultants Critical Care - Objective Last 24 Hour Vital Signs Date Time Temp Pulse Resp B/P (MAP) Pulse Ox O2 Delivery O2 Flow Rate FiO2 10/17/18 09:32 104 10/17/18 07:00 101 22 152/66 (94) 98 10/17/18 06:00 103 160/82 (108) 98 10/17/18 05:00 101 24 153/76 (101) 98 10/17/18 04:00 Venturi Mask 10/17/18 04:00 98.4 103 31 150/67 (94) 98 10/17/18 04:00 103 10/17/18 03:00 102 24 145/75 (98) 98 10/17/18 02:00 101 24 156/80 (105) 98 10/17/18 01:00 98 24 158/71 (100) 98 10/17/18 00:00 Venturi Mask 10/17/18 00:00 98.3 99 22 157/81 (106) 98 10/17/18 00:00 107 10/16/18 23:00 107 24 143/82 (102) 98 10/16/18 22:00 107 26 143/82 (102) 98 10/16/18 21:00 111 18 189/89 (122) 86 10/16/18 20:00 96 Venturi Mask 12.0 40 10/16/18 20:00 107 10/16/18 20:00 Venturi Mask 12.0 40 10/16/18 20:00 106 10/16/18 20:00 Venturi Mask 10/16/18 20:00 98.6 106 18 169/93 (118) 97 10/16/18 19:00 112 17 150/77 (101) 100 10/16/18 18:00 108 19 144/72 (96) 100 10/16/18 17:00 110 18 148/70 (96) 100 10/16/18 16:00 98.8 105 18 150/74 (99) 100 10/16/18 16:00 106 10/16/18 16:00 Venturi Mask Venturi Mask 10/16/18 15:00 112 18 152/77 (102) 100 10/16/18 14:00 115 20 150/78 (102) 100 10/16/18 13:23 Venturi Mask 12.0 40 10/16/18 13:22 97 Venturi Mask 12.0 40 10/16/18 13:22 Venturi Mask 12.0 40 10/16/18 13:00 119 20 151/80 (103) 100 10/16/18 12:00 114 10/16/18 12:00 Mechanical Ventilator 10/16/18 12:00 98.7 120 20 158/86 (110) 100 10/16/18 12:00 40 10/16/18 11:01 117 29 40 10/16/18 11:00 117 20 152/84 (106) 100 10/16/18 10:00 105 20 145/91 (109) 100 Status: awake Condition: improving HEENT: atraumatic, normocephalic Neck: full ROM Lungs: rales Heart: HR/BP stable Abdomen: soft, non-tender, active bowel sounds Extremities: edema - 1+ Accucheck: 175 Blood Sugars: BS controlled Critical Care - Subjective ROS Limited/Unobtainable: Yes ICU Day: 9 Interval Events: On NC Na 155 awake edematous Condition: improving IV Access: PICC EKG Rhythm: Sinus Rhythm FI02: 40 Vent Support Breath Rate: 20 Vent Support Mode: CPAP Vent Tidal Volume: 500 Sputum Amount: Small PEEP: 5.0 PIP: 15 Fluids: D5W@100 Drips: SLIV Tube Feeding Amount: 45 I&O: Intake and Output 10/16/18 10/17/18 19:00 07:00 Intake Total 495 ml 1437.5 ml Output Total 670 ml 710 ml Balance -175 ml 727.5 ml IV Total 1437.5 ml Tube Feeding 495 ml Output Urine Total 670 ml 710 ml Subjective: No F/C/CP/SOB/N/V/D/C ET-Tube: 7.0 ET Position: 21 Labs: Laboratory Tests Test 10/16/18 09:55 10/17/18 04:30 Arterial Blood pH 7.324 (7.350-7.450) Arterial Blood Partial Pressure CO2 32.3 mmHg (35.0-45.0) L Arterial Blood Partial Pressure O2 97.8 mmHg (75.0-100.0) Arterial Blood HCO3 16.4 mmol/L (22.0-26.0) *L Arterial Blood Oxygen Saturation 96.2 % (95-100) Arterial Blood Base Excess -8.6 (-2-2) L Ortiz Test Positive White Blood Count 10.7 K/UL (4.8-10.8) Red Blood Count 3.92 M/UL (4.20-5.40) L Hemoglobin 12.2 G/DL (12.0-16.0) Hematocrit 37.6 % (37.0-47.0) Mean Corpuscular Volume 96 FL (80-99) Mean Corpuscular Hemoglobin 31.1 PG (27.0-31.0) H Mean Corpuscular Hemoglobin Concent 32.5 G/DL (32.0-36.0) Red Cell Distribution Width 17.9 % (11.6-14.8) H Platelet Count 41 K/UL (150-450) L Mean Platelet Volume 6.4 FL (6.5-10.1) L Neutrophils (%) (Auto) % (45.0-75.0) Lymphocytes (%) (Auto) % (20.0-45.0) Monocytes (%) (Auto) % (1.0-10.0) Eosinophils (%) (Auto) % (0.0-3.0) Basophils (%) (Auto) % (0.0-2.0) Prothrombin Time 14.7 SEC (9.30-11.50) H Prothromb Time International Ratio 1.4 (0.9-1.1) H Sodium Level 155 MMOL/L (136-145) H Potassium Level 3.3 MMOL/L (3.5-5.1) L Chloride Level 121 MMOL/L (98-107) H Carbon Dioxide Level 20 MMOL/L (21-32) L Anion Gap 14 mmol/L (5-15) Blood Urea Nitrogen 44 mg/dL (7-18) H Creatinine 2.2 MG/DL (0.55-1.30) H Estimat Glomerular Filtration Rate 22.9 mL/min (>60) Glucose Level 205 MG/DL (74-106) H Calcium Level 9.5 MG/DL (8.5-10.1) Total Bilirubin 4.3 MG/DL (0.2-1.0) H Direct Bilirubin 3.0 MG/DL (0.0-0.3) H Aspartate Amino Transf (AST/SGOT) 80 U/L (15-37) H Alanine Aminotransferase (ALT/SGPT) 598 U/L (12-78) H Alkaline Phosphatase 516 U/L (46-116) H Total Protein 5.3 G/DL (6.4-8.2) L Albumin 2.2 G/DL (3.4-5.0) L Globulin 3.1 g/dL Albumin/Globulin Ratio 0.7 (1.0-2.7) L Renato Delarosa MD Oct 17, 2018 09:43
--- NOTE | 2018-10-17 10:00 | NUR ---
NURSE NOTES: Dr. Montanez contacted for PRN anti hypertensive medication due to high BP. will continue plan of care. Turned and repositioned. No new orders as of now. Will continue to monitor patient.
--- NOTE | 2018-10-17 10:46 | Infectious Diseases Prog Note ---
Assessment/Plan Assessment/Plan A: 1. Septic Shock resolved.culture are negative so far 2. aspiration pneumonia. 3. Multiorgan failure including acute renal failure and hypercapnic respiratory failure. 4. Diabetes mellitus. 5. Obesity. 6. Lactic acidosis. 7. Anemia.s/p transfusion 8. Cirrhosis. 9. Enteritis, ileus resolved RECOMMENDATION: continue with Zosyn X 1 day Subjective Constitutional: Reports: no symptoms, other - doing better Respiratory: Reports: no symptoms, other - extubated Cardiovascular: Reports: no symptoms Gastrointestinal/Abdominal: Reports: no symptoms Genitourinary: Reports: no symptoms Allergies: Coded Allergies: No Known Allergies (Unverified , 05/06/18) Objective Vital Signs Last 24 Hour Vital Signs Date Time Temp Pulse Resp B/P (MAP) Pulse Ox O2 Delivery O2 Flow Rate FiO2 10/17/18 10:00 108 22 165/78 (107) 98 10/17/18 09:32 104 10/17/18 09:00 105 22 171/77 (108) 98 10/17/18 08:00 104 10/17/18 08:00 Venturi Mask 10/17/18 08:00 98.8 104 22 165/70 (101) 98 10/17/18 07:00 101 22 152/66 (94) 98 10/17/18 06:00 103 160/82 (108) 98 10/17/18 05:00 101 24 153/76 (101) 98 10/17/18 04:00 Venturi Mask 10/17/18 04:00 98.4 103 31 150/67 (94) 98 10/17/18 04:00 103 10/17/18 03:00 102 24 145/75 (98) 98 10/17/18 02:00 101 24 156/80 (105) 98 10/17/18 01:00 98 24 158/71 (100) 98 10/17/18 00:00 Venturi Mask 10/17/18 00:00 98.3 99 22 157/81 (106) 98 10/17/18 00:00 107 10/16/18 23:00 107 24 143/82 (102) 98 10/16/18 22:00 107 26 143/82 (102) 98 10/16/18 21:00 111 18 189/89 (122) 86 10/16/18 20:00 96 Venturi Mask 12.0 40 10/16/18 20:00 107 10/16/18 20:00 Venturi Mask 12.0 40 10/16/18 20:00 106 10/16/18 20:00 Venturi Mask 10/16/18 20:00 98.6 106 18 169/93 (118) 97 10/16/18 19:00 112 17 150/77 (101) 100 10/16/18 18:00 108 19 144/72 (96) 100 10/16/18 17:00 110 18 148/70 (96) 100 10/16/18 16:00 98.8 105 18 150/74 (99) 100 10/16/18 16:00 106 10/16/18 16:00 Venturi Mask Venturi Mask 10/16/18 15:00 112 18 152/77 (102) 100 10/16/18 14:00 115 20 150/78 (102) 100 10/16/18 13:23 Venturi Mask 12.0 40 10/16/18 13:22 97 Venturi Mask 12.0 40 10/16/18 13:22 Venturi Mask 12.0 40 10/16/18 13:00 119 20 151/80 (103) 100 10/16/18 12:00 114 10/16/18 12:00 Mechanical Ventilator 10/16/18 12:00 98.7 120 20 158/86 (110) 100 10/16/18 12:00 40 10/16/18 11:01 117 29 40 10/16/18 11:00 117 20 152/84 (106) 100 Height (Feet): 5 Height (Inches): 1.00 Weight (Pounds): 251 HEENT: mucous membranes moist Respiratory/Chest: lungs clear Cardiovascular: tachycardia, other - R femoral line Abdomen: soft, non tender Extremities: other - generalized edema Neurologic/Psychiatric: alert, responsive Laboratory Tests Test 10/17/18 04:30 10/17/18 10:10 White Blood Count 10.7 K/UL (4.8-10.8) Red Blood Count 3.92 M/UL (4.20-5.40) L Hemoglobin 12.2 G/DL (12.0-16.0) Hematocrit 37.6 % (37.0-47.0) Mean Corpuscular Volume 96 FL (80-99) Mean Corpuscular Hemoglobin 31.1 PG (27.0-31.0) H Mean Corpuscular Hemoglobin Concent 32.5 G/DL (32.0-36.0) Red Cell Distribution Width 17.9 % (11.6-14.8) H Platelet Count 41 K/UL (150-450) L Mean Platelet Volume 6.4 FL (6.5-10.1) L Neutrophils (%) (Auto) % (45.0-75.0) Lymphocytes (%) (Auto) % (20.0-45.0) Monocytes (%) (Auto) % (1.0-10.0) Eosinophils (%) (Auto) % (0.0-3.0) Basophils (%) (Auto) % (0.0-2.0) Prothrombin Time 14.7 SEC (9.30-11.50) H Prothromb Time International Ratio 1.4 (0.9-1.1) H Sodium Level 155 MMOL/L (136-145) H Potassium Level 3.3 MMOL/L (3.5-5.1) L Chloride Level 121 MMOL/L (98-107) H Carbon Dioxide Level 20 MMOL/L (21-32) L Anion Gap 14 mmol/L (5-15) Blood Urea Nitrogen 44 mg/dL (7-18) H Creatinine 2.2 MG/DL (0.55-1.30) H Estimat Glomerular Filtration Rate 22.9 mL/min (>60) Glucose Level 205 MG/DL (74-106) H Calcium Level 9.5 MG/DL (8.5-10.1) Total Bilirubin 4.3 MG/DL (0.2-1.0) H Direct Bilirubin 3.0 MG/DL (0.0-0.3) H Aspartate Amino Transf (AST/SGOT) 80 U/L (15-37) H Alanine Aminotransferase (ALT/SGPT) 598 U/L (12-78) H Alkaline Phosphatase 516 U/L (46-116) H Total Protein 5.3 G/DL (6.4-8.2) L Albumin 2.2 G/DL (3.4-5.0) L Globulin 3.1 g/dL Albumin/Globulin Ratio 0.7 (1.0-2.7) L Ammonia Pending Current Medications Medications (Trade) Dose Ordered Sig/Patricia Route PRN Reason Start Time Stop Time Status Last Admin Dose Admin Acetaminophen (Tylenol) 650 mg Q4H PRN ORAL Mild Pain/Temp > 100.5 10/09/18 14:15 11/08/18 14:14 10/11/18 19:43 Albuterol/ Ipratropium (Albuterol/ Ipratropium) 3 ml Q4HRT HHN 10/17/18 11:00 10/22/18 10:59 Amiodarone HCl (Cordarone) 200 mg DAILY NG 10/16/18 09:00 11/12/18 20:59 10/17/18 09:32 Chlorhexidine Gluconate (Nguyen-Hex 2%) 1 applic DAILY@2000 TOPIC 10/10/18 20:00 11/09/18 19:59 10/16/18 19:43 Dextrose 1,000 ml @ 100 mls/hr Q10H IV 10/16/18 19:30 11/15/18 19:29 10/17/18 05:37 Dextrose (Dextrose 50%) 25 ml Q30M PRN IV Hypoglycemia 10/11/18 13:45 11/10/18 13:44 10/13/18 05:57 Dextrose (Dextrose 50%) 50 ml Q30M PRN IV Hypoglycemia 10/11/18 13:45 11/10/18 13:44 Digoxin (Lanoxin) 0.125 mg DAILY NG 10/16/18 09:00 11/15/18 08:59 10/17/18 09:32 Diphenhydramine HCl (Benadryl) 25 mg Q6H PRN IVP Itching 10/09/18 14:30 11/08/18 14:29 Furosemide (Lasix) 20 mg DAILY@1200 IV 10/16/18 12:00 10/17/18 12:01 10/16/18 12:09 Insulin Aspart (NovoLOG) BEFORE MEALS AND HS SUBQ 10/11/18 16:30 11/10/18 16:29 10/17/18 05:39 Lactulose (Cephulac) 30 gm THREE TIMES A DAY NG 10/14/18 18:00 11/12/18 17:59 10/16/18 12:10 Metoclopramide HCl (Reglan) 5 mg Q6H IVP 10/15/18 11:30 4/2/19 11:29 10/16/18 17:30 Midazolam HCl (Versed 2mg/2ml vial) 1 mg Q2H PRN IVP For Anxiety 10/12/18 14:30 11/11/18 14:29 Pantoprazole (Protonix) 40 mg EVERY 12 HOURS IVP 10/10/18 21:00 11/09/18 20:59 10/17/18 09:32 Piperacillin Sod/ Tazobactam Sod 3.375 gm/Dextrose 110 ml @ 27.5 mls/hr Q12H IVPB 10/11/18 18:00 10/18/18 17:59 10/17/18 05:37 Rifaximin (Xifaxan) 550 mg EVERY 12 HOURS ORAL 10/12/18 21:00 10/19/18 20:59 10/17/18 09:32 Sodium Chloride 1,000 ml @ 50 mls/hr Q20H IV 10/14/18 13:45 11/10/18 13:44 10/16/18 04:27 Wesley Akers MD Oct 17, 2018 10:46
[2018-10-17] MEDS ORDERED: Albuterol/Ipratropium 3ml neb HHN SCH (11:00)
--- NOTE | 2018-10-17 11:09 | NUR ---
RD ASSESSMENT & RECOMMENDATIONS SEE CARE ACTIVITY FOR COMPLETE ASSESSMENT DAILY ESTIMATED NEEDS: Needs based on Sepsis, obesity, DM 24-28, 64kg adj kcals/kg 0557-0900 total kcals 1.2-2, 64kg adj g protein/kg 77-128 g total protein Fluid per MD mL/kg total fluid mLs NUTRITION DIAGNOSIS: 1) Swallowing difficulty r/t respiratory status as evidenced by pt is now extubated, off pressors, NPO, [employer] eval pending. 2) Altered nutrition related lab values r/t critcal care. septic shock and multi organ failure as evidenced by critically elev WBC-> now wnl, elev creat kinase (3542), elev LFT's, elev T bili (4.3 trend up) elev phos (5.2 -> wnl), elev Creat (2.2 trend down), elev ammonia (62->57), elev BNP (6076->658), elev A1C (11.0), elev BGs (205 179). CURRENT DIET: NPO, pending [employer] eval PO DIET RECOMMENDATIONS: CCHO LOW, CARDIAC/ texture per [employer] ADDITIONAL RECOMMENDATIONS: * CALIBRATED BED SCALE WTS * Monitor lytes, replete as needed * Monitor liver fxn, renal fxn, BGs * W/ oral diet, monitor PO intake and tolerance Addendum: 10/17/18 at [address] [employer] w/ rec to continue NPO, nonoral feedings. RECOMMEND GLUCERNA 1.2 @ 55ML/HR X 24 HRS * W/ GI access, rec to start TF of Glucerna 1.2 @ goal rate to 55ml/hr. * HOB over 30 degrees/ water flush per MD
--- NOTE | 2018-10-17 11:42 | NUR ---
ST SWALLOW NOTE: SEE SWALLOW EVAL IN CARE ACTIVITY SECTION REFERRED BY DR THAO (DR OWUSU PRIMARY MD) DYSPHAGIA RISK FACTORS FOR THIS 58 Y.O. ERITREAN-SPEAKING ([facility]) FEMALE: ACUTE PNA (R SIDED), SEPSIS, FALL AND CT HEAD NEGATIVE, RESP DISTRESS INTUBATED 5 DAYS 10/09-10/16 (ONE DAY POST EXTUBATION AND OGT OUT). NOW 2 LITERS 02 NC (SAT AT 95) SECRETIONS BACK OF THROAT, MULTISYSTEM ORGAN FAILURE. RR 18 SEEMS SOB THOUGH, HIGH PULSE 103 AND BHP YESTERDAY HIGH 161/177 (105) BETTER TODAY JUST TRANSFERRED FROM ICU TO [facility] NOW. CXR 10/09 R INFILTRATE 10/16/18 R BASILAR ATELECTASIS H/O DIABETES, SCIATICA PAIN ONE WEEK PRIOR TO ADMIT AND DEPRESSED AND IN PAIN, LIVER CIRRHOSIS, HTN, JONNATHAN. PRIOR TO ADMIT ON REG DIET DIABETIC PER HER SON. NOW NPO EXCEPT ICE CHIP CRUSHED MEDS (NO PROB WITH APPLESAUCE CRUSHED MEDS PER RN BUT COUGHED WITH WATER TRIAL). TAKING ICE CHIPS WITH RN BUT HAS WEAK SPON COUGH W/O PO TRIALS. HAD OGT 10/09 TO 10/16 WITH GLUCERNA FORMULA. ALERT BUT PASSIVE AND DYSPHONIC JUST EXTUBATED, CONFUSED. ABLE TO EXPRESS SOME BASIC NEEDS IN ERITREAN WITH SPAN-SPEAK ST. DOES NOT INITIATE COMMUNICATION. STATES SHE HAS HAD PROBLEMS SWALLOWING BOTH SOLIDS AND LIQUIDS PRIOR TO ADMIT (NOT SURE HOW LONG). SAID PROBLEMS RELATED TO PAIN WITH SCIATICA PRIOR TO ADMIT AND DEPRESSED DUE TO HIGH BP. 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 NEEDS INCONSISTENT BACK OF THROAT SUCTIONING OF PHLEGM/SALIVA (MILD AMOUNTS) TONGUE SPEED SLOWER AND STRENGTH REDUCED. OK LIP MOVEMENTS BUT BLEEDING LOWER LIP DUE TO OGT IN 5 DAYS. POOR COUGH SPONTANEOUS AND VOLITIONAL VOICE DYSPHONIC ONLY ONE DAY POST EXTUBATION (5 DAYS). REFERRED BY DR THAO (DR OWUSU PRIMARY MD) DYSPHAGIA RISK FACTORS FOR THIS 58 Y.O. ERITREAN-SPEAKING ([facility]) FEMALE: ACUTE PNA (R SIDED), SEPSIS, FALL AND CT HEAD NEGATIVE, RESP DISTRESS INTUBATED 5 DAYS 10/09-10/16 (ONE DAY POST EXTUBATION AND OGT OUT). NOW 2 LITERS 02 NC (SAT AT 95) SECRETIONS BACK OF THROAT, MULTISYSTEM ORGAN FAILURE. RR 18 SEEMS SOB THOUGH, HIGH PULSE 103 AND BHP YESTERDAY HIGH 161/177 (105) BETTER TODAY JUST TRANSFERRED FROM ICU TO [facility] NOW. CXR 10/09 R INFILTRATE 10/16/18 R BASILAR ATELECTASIS H/O DIABETES, SCIATICA PAIN ONE WEEK PRIOR TO ADMIT AND DEPRESSED AND IN PAIN, LIVER CIRRHOSIS, HTN, JONNATHAN. PRIOR TO ADMIT ON REG DIET DIABETIC PER HER SON. NOW NPO EXCEPT ICE CHIP CRUSHED MEDS (NO PROB WITH APPLESAUCE CRUSHED MEDS PER RN BUT COUGHED WITH WATER TRIAL). TAKING ICE CHIPS WITH RN BUT HAS WEAK SPON COUGH W/O PO TRIALS. HAD OGT 10/09 TO 10/16 WITH GLUCERNA FORMULA. ALERT BUT PASSIVE AND DYSPHONIC JUST EXTUBATED, CONFUSED. ABLE TO EXPRESS SOME BASIC NEEDS IN ERITREAN WITH SPAN-SPEAK ST. DOES NOT INITIATE COMMUNICATION. STATES SHE HAS HAD PROBLEMS SWALLOWING BOTH SOLIDS AND LIQUIDS PRIOR TO ADMIT (NOT SURE HOW LONG). SAID PROBLEMS RELATED TO PAIN WITH SCIATICA PRIOR TO ADMIT AND DEPRESSED DUE TO HIGH BP. 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 NEEDS INCONSISTENT BACK OF THROAT SUCTIONING OF PHLEGM/SALIVA (MILD AMOUNTS) WILL HOLD ON PO TRIALS FOR NOW. TONGUE SPEED SLOWER AND STRENGTH REDUCED. OK LIP MOVEMENTS BUT BLEEDING LOWER LIP DUE TO OGT IN 5 DAYS. POOR COUGH SPONTANEOUS AND VOLITIONAL VOICE DYSPHONIC ONLY ONE DAY POST EXTUBATION (5 DAYS). HOLD ON PO TRIALS FOR NOW SINCE PROBLEMS WITH OWN SECRETIONS. PER RN, CRUSHED MEDS WITH PUREED NO APPARENT ASP BUT MAY HAVE RISK FOR POSSIBLE SILENT ASP RISK (THOUGH CT HEAD NEG, NO MRI) PER RN COUGHS/ASPIRATES WITH THIN LIQUIDS RECOMMENDATIONS: MODIFIED BARIUM VIDEO SWALLOW STUDY WHEN READY (WILL CHECK DAILY) TO FURTHER ASSESS SWALLOW, DETERMINE SILENT ASP RISK/ETIOLOGY, AND ATTEMPT TRIAL TX. CONSERVATIVELY, KEEP NPO (NO ICE CHIPS/CRUSHED MEDS/WATER FOR NOW) REINSERT TUBE FEEDINGS (PREFERABLY SMALLER 12) AND CONT WITH ORAL/DENTAL CARE EDUCATED AND TRAINED STAFF/ IN ORAL CARE AND FOR RN SUCTION PRN POSTED ASP PREC AND ORAL CARE DYSPHAGIA TX/MANAGEMENT AND COG-COM EVAL/TX HAS POSSIBLE SILENT ASP RISK (THOUGH CT HEAD NEG, NO MRI) RECOMMENDATIONS: MODIFIED BARIUM VIDEO SWALLOW STUDY WHEN READY (WILL CHECK DAILY) TO FURTHER ASSESS SWALLOW, DETERMINE SILENT ASP RISK/ETIOLOGY, AND ATTEMPT TRIAL TX. CONSERVATIVE, KEEP NPO (NO ICE CHIPS/CRUSHED MEDS/WATER FOR NOW) REINSERT TUBE FEEDINGS (PREFERABLY SMALLER 12) AND CONT WITH ORAL/DENTAL CARE EDUCATED AND TRAINED STAFF/ IN ORAL CARE AND FOR RN SUCTION PRN POSTED ASP PREC AND ORAL CARE DYSPHAGIA TX/MANAGEMENT AND COG-COM EVAL/TX Addendum: 10/17/18 at 1148 by HAMILTON CASAREZ RN TO [facility] FINDINGS Addendum: 10/17/18 at 1227 by HAMILTON CASAREZ WHEN GIVEN PO RD RECOMMENDED: CCHO LOW AND CARDIAC
--- NOTE | 2018-10-17 12:41 | NUR ---
Attempted V/Q Scan. Pt cannot tolerate laying flat, even with multiple pillows. Avril PIERCE aware.
--- NOTE | 2018-10-17 13:34 | Surgery Progress Note ---
Surgery Progress Note Subjective Additional Comments leukocytosis resolved. comfortable. labs noted. Objective Last 24 Hour Vital Signs Date Time Temp Pulse Resp B/P (MAP) Pulse Ox O2 Delivery O2 Flow Rate FiO2 10/17/18 11:04 103 18 95 Nasal Cannula 2.0 10/17/18 11:00 105 22 161/77 (105) 98 10/17/18 10:00 108 22 165/78 (107) 98 10/17/18 09:32 104 10/17/18 09:00 105 22 171/77 (108) 98 10/17/18 08:00 104 10/17/18 08:00 Venturi Mask 10/17/18 08:00 98.8 104 22 165/70 (101) 98 10/17/18 07:16 Venturi Mask 12.0 40 10/17/18 07:12 96 Venturi Mask 12.0 40 10/17/18 07:00 101 22 152/66 (94) 98 10/17/18 06:00 103 160/82 (108) 98 10/17/18 05:00 101 24 153/76 (101) 98 10/17/18 04:00 Venturi Mask 10/17/18 04:00 98.4 103 31 150/67 (94) 98 10/17/18 04:00 103 10/17/18 03:00 102 24 145/75 (98) 98 10/17/18 02:00 101 24 156/80 (105) 98 10/17/18 01:00 98 24 158/71 (100) 98 10/17/18 00:00 Venturi Mask 10/17/18 00:00 98.3 99 22 157/81 (106) 98 10/17/18 00:00 107 10/16/18 23:00 107 24 143/82 (102) 98 10/16/18 22:00 107 26 143/82 (102) 98 10/16/18 21:00 111 18 189/89 (122) 86 10/16/18 20:00 96 Venturi Mask 12.0 40 10/16/18 20:00 107 10/16/18 20:00 Venturi Mask 12.0 40 10/16/18 20:00 106 10/16/18 20:00 Venturi Mask 10/16/18 20:00 98.6 106 18 169/93 (118) 97 10/16/18 19:00 112 17 150/77 (101) 100 10/16/18 18:00 108 19 144/72 (96) 100 10/16/18 17:00 110 18 148/70 (96) 100 10/16/18 16:00 98.8 105 18 150/74 (99) 100 10/16/18 16:00 106 10/16/18 16:00 Venturi Mask Venturi Mask 10/16/18 15:00 112 18 152/77 (102) 100 10/16/18 14:00 115 20 150/78 (102) 100 I&O Intake and Output 10/16/18 10/17/18 19:00 07:00 Intake Total 495 ml 1437.5 ml Output Total 670 ml 710 ml Balance -175 ml 727.5 ml IV Total 1437.5 ml Tube Feeding 495 ml Output Urine Total 670 ml 710 ml Dressing: other Wound: other Drains: other Cardiovascular: RSR Respiratory: clear Abdomen: soft, non-tender, present bowel sounds, non-distended Extremities: no tenderness, no cyanosis Laboratory Tests Test 10/17/18 04:30 10/17/18 10:10 White Blood Count 10.7 K/UL (4.8-10.8) Red Blood Count 3.92 M/UL (4.20-5.40) L Hemoglobin 12.2 G/DL (12.0-16.0) Hematocrit 37.6 % (37.0-47.0) Mean Corpuscular Volume 96 FL (80-99) Mean Corpuscular Hemoglobin 31.1 PG (27.0-31.0) H Mean Corpuscular Hemoglobin Concent 32.5 G/DL (32.0-36.0) Red Cell Distribution Width 17.9 % (11.6-14.8) H Platelet Count 41 K/UL (150-450) L Mean Platelet Volume 6.4 FL (6.5-10.1) L Neutrophils (%) (Auto) % (45.0-75.0) Lymphocytes (%) (Auto) % (20.0-45.0) Monocytes (%) (Auto) % (1.0-10.0) Eosinophils (%) (Auto) % (0.0-3.0) Basophils (%) (Auto) % (0.0-2.0) Prothrombin Time 14.7 SEC (9.30-11.50) H Prothromb Time International Ratio 1.4 (0.9-1.1) H Sodium Level 155 MMOL/L (136-145) H Potassium Level 3.3 MMOL/L (3.5-5.1) L Chloride Level 121 MMOL/L (98-107) H Carbon Dioxide Level 20 MMOL/L (21-32) L Anion Gap 14 mmol/L (5-15) Blood Urea Nitrogen 44 mg/dL (7-18) H Creatinine 2.2 MG/DL (0.55-1.30) H Estimat Glomerular Filtration Rate 22.9 mL/min (>60) Glucose Level 205 MG/DL (74-106) H Calcium Level 9.5 MG/DL (8.5-10.1) Total Bilirubin 4.3 MG/DL (0.2-1.0) H Direct Bilirubin 3.0 MG/DL (0.0-0.3) H Aspartate Amino Transf (AST/SGOT) 80 U/L (15-37) H Alanine Aminotransferase (ALT/SGPT) 598 U/L (12-78) H Alkaline Phosphatase 516 U/L (46-116) H Total Protein 5.3 G/DL (6.4-8.2) L Albumin 2.2 G/DL (3.4-5.0) L Globulin 3.1 g/dL Albumin/Globulin Ratio 0.7 (1.0-2.7) L Ammonia 44 umol/L (11-32) H Plan Problems: (1) Multiple injuries due to trauma (2) Sepsis Assessment & Plan: Labs noted lactic acidosis improved with resuscitation CT findings: Limited assessment of the GI tract, due to lack of enteric contrast administration. Exam is also limited due to patient motion artifact and lack of IV contrast administration Evidence of hepatic cirrhosis Small amount of ascites, likely related to the above Surgically absent gallbladder Bilateral basilar pulmonary parenchymal atelectatic changes and possible patchy consolidation Minimal edema of the bilateral flank subcutaneous fat Other findings as noted, including degenerative spondylosis, right hepatic lobe capsular calcification, Quiroz catheter has made a great improvement. denies abd pain. labs improved. decompensated liver cirrhosis LFT's abnormal leukocytosis overall improved but prognosis still guarded -okay for diet -iv fluids -iv abx -trend labs will follow with recs thank you (3) Liver cirrhosis Josh Samuel Oct 17, 2018 13:34
--- NOTE | 2018-10-17 13:44 | Nephrology Progress Note ---
Assessment/Plan Problem List: (1) JONNATHAN (acute kidney injury) (2) Shock liver (3) Septic shock (4) Respiratory disorder with ventilator dependence Assessment - Acute Oliguric Renal Failure Cr down to 2.4 - Respiratory disorder with ventilator dependence - Septic shock , Leukocytosis - Pneumonia - Liver cirrhosis - Obese - Anemia . Plan transfused 2 units previously down on IV fluid Hemodynamic support Pulmunary support Monitor renal parameters avoid nephrotoxics as best as possible per orders discussed with RN Subjective ROS Limited/Unobtainable: No Constitutional: Reports: malaise Objective Objective Last 24 Hour Vital Signs Date Time Temp Pulse Resp B/P (MAP) Pulse Ox O2 Delivery O2 Flow Rate FiO2 10/17/18 11:04 103 18 95 Nasal Cannula 2.0 10/17/18 11:00 105 22 161/77 (105) 98 10/17/18 10:00 108 22 165/78 (107) 98 10/17/18 09:32 104 10/17/18 09:00 105 22 171/77 (108) 98 10/17/18 08:00 104 10/17/18 08:00 Venturi Mask 10/17/18 08:00 98.8 104 22 165/70 (101) 98 10/17/18 07:16 Venturi Mask 12.0 40 10/17/18 07:12 96 Venturi Mask 12.0 40 10/17/18 07:00 101 22 152/66 (94) 98 10/17/18 06:00 103 160/82 (108) 98 10/17/18 05:00 101 24 153/76 (101) 98 10/17/18 04:00 Venturi Mask 10/17/18 04:00 98.4 103 31 150/67 (94) 98 10/17/18 04:00 103 10/17/18 03:00 102 24 145/75 (98) 98 10/17/18 02:00 101 24 156/80 (105) 98 10/17/18 01:00 98 24 158/71 (100) 98 10/17/18 00:00 Venturi Mask 10/17/18 00:00 98.3 99 22 157/81 (106) 98 10/17/18 00:00 107 10/16/18 23:00 107 24 143/82 (102) 98 10/16/18 22:00 107 26 143/82 (102) 98 10/16/18 21:00 111 18 189/89 (122) 86 10/16/18 20:00 96 Venturi Mask 12.0 40 10/16/18 20:00 107 10/16/18 20:00 Venturi Mask 12.0 40 10/16/18 20:00 106 10/16/18 20:00 Venturi Mask 10/16/18 20:00 98.6 106 18 169/93 (118) 97 10/16/18 19:00 112 17 150/77 (101) 100 10/16/18 18:00 108 19 144/72 (96) 100 10/16/18 17:00 110 18 148/70 (96) 100 10/16/18 16:00 98.8 105 18 150/74 (99) 100 10/16/18 16:00 106 10/16/18 16:00 Venturi Mask Venturi Mask 10/16/18 15:00 112 18 152/77 (102) 100 10/16/18 14:00 115 20 150/78 (102) 100 Intake and Output 10/16/18 10/17/18 19:00 07:00 Intake Total 495 ml 1437.5 ml Output Total 670 ml 710 ml Balance -175 ml 727.5 ml IV Total 1437.5 ml Tube Feeding 495 ml Output Urine Total 670 ml 710 ml Laboratory Tests 10/17/18 04:30: White Blood Count 10.7, Red Blood Count 3.92L, Hemoglobin 12.2, Hematocrit 37.6 , Mean Corpuscular Volume 96, Mean Corpuscular Hemoglobin 31.1H, Mean Corpuscular Hemoglobin Concent 32.5, Red Cell Distribution Width 17.9H, Platelet Count 41L, Mean Platelet Volume 6.4L, Neutrophils (%) (Auto) , Lymphocytes (%) (Auto) , Monocytes (%) (Auto) , Eosinophils (%) (Auto) , Basophils (%) (Auto) , Prothrombin Time 14.7H, Prothromb Time International Ratio 1.4H, Sodium Level 155H, Potassium Level 3.3L, Chloride Level 121H, Carbon Dioxide Level 20L, Anion Gap 14, Blood Urea Nitrogen 44H, Creatinine 2.2H , Estimat Glomerular Filtration Rate 22.9, Glucose Level 205H, Calcium Level 9.5 , Total Bilirubin 4.3H, Direct Bilirubin 3.0H, Aspartate Amino Transf (AST/SGOT ) 80H, Alanine Aminotransferase (ALT/SGPT) 598H, Alkaline Phosphatase 516H, Total Protein 5.3L, Albumin 2.2L, Globulin 3.1, Albumin/Globulin Ratio 0.7L 10/17/18 10:10: Ammonia 44H Height (Feet): 5 Height (Inches): 1.00 Weight (Pounds): 251 General Appearance: no apparent distress, lethargic Cardiovascular: tachycardia Respiratory/Chest: decreased breath sounds Abdomen: distended Objective NO CHANGE Alex Cueto MD Oct 17, 2018 13:44
[2018-10-17] MEDS ORDERED: Midazolam 2mg/2ml Inj IVP PRN (14:30)
[2018-10-17] MEDS: Albuterol/Ipratropium 3ml neb HHN SCH ×3 (16:04→23:13)
--- NOTE | 2018-10-17 16:04 | General Progress Note ---
Assessment/Plan Assessment/Plan Assessment and Recs: # Leukocytosis/Elevated white blood cell count, unspecified likely related to underlying stress reaction, or underlying infection --> have reviewed peripheral smear and bandemia/neutrophilia noted --> continue antibiotics if they have been started by ID team (on zosyn at this time) --> monitor for resolution # Thrombocytopenia - potential causes multifactorial, evaluate liver and viral etiologies to begin, also could be related to underlying medications patient has received. Hx of cirrhosis in the past noted on us --> Hep panel and HIV negative --> CT a/p show cirrhosis as well as us --> Peripheral smear ordered to evaluate for blasts /schistocytes is negative --> abx and other meds have been reviewed --> ok for ppx if plt >50k w/ either heparin or lovenox --> Transfuse if Plt < 20k and fever, or if Plt < 10k without fever --> HIT negative, hold off heparin # Anemia of iron deficiency as noted with low % sat and tibc elevated --> Anemia workup has been reviewed --> No evidence of hemolysis is noted, peripheral smear has been reviewed. --> Hgb goal >7. Transfuse prn. --> Iron IV X 5 days already given --> Medications have been reviewed # CEA of 10.5 --> Ct of abdomen/pelvis reviewed and is negative # Sepsis likely contributing to low plts --> on abx as needed # Shock, hypovolemic and distributive --> per id and pulm/cc care # Multisystem organ failure. # Lactic acidosis. # JONNATHAN. # Abnormal LFTs, likely shock liver. # Abnormal troponin, likely demand ischemia. # Obesity. # Respiratory failure on vent --> now extubated The timing of this note does not necessarily reflect the time of the patient was seen. Greatly appreciate consultation! Subjective Constitutional: Denies: no symptoms, chills, diaphoresis, fever, malaise, weakness, other HEENT: Denies: no symptoms, eye pain, blurred vision, tearing, double vision, ear pain, ear discharge, nose pain, nose congestion, throat pain, throat swelling, mouth pain, mouth swelling, other Cardiovascular: Denies: no symptoms, chest pain, edema, irregular heart rate, lightheadedness, palpitations, syncope, other Respiratory: Denies: no symptoms, cough, orthopnea, shortness of breath, SOB with excertion, SOB at rest, sputum, stridor, wheezing, other Gastrointestinal/Abdominal: Denies: no symptoms, abdomen distended, abdominal pain, black stools, tarry stools, blood in stool, constipated, diarrhea, difficulty swallowing, nausea, poor appetite, poor fluid intake, rectal bleeding , vomiting, other Genitourinary: Denies: no symptoms, burning, discharge, frequency, flank pain, hematuria, incontinence, pain, urgency, other Neurologic/Psychiatric: Denies: no symptoms, anxiety, depressed, emotional problems, headache, numbness, paresthesia, pre-existing deficit, seizure, tingling, tremors, weakness, other Endocrine: Denies: no symptoms, excessive sweating, flushing, intolerance to cold, intolerance to heat, increased hunger, increased thirst, increased urine, unexplained weight gain, unexplained weight loss, other Allergies: Coded Allergies: No Known Allergies (Unverified , 05/06/18) Subjective 3: Pt was seen in ICU on Vent and off pressors, developed atrial fib, wbc trending down to 13, plt trending down to 60 3: remains in the icu, monitoring labs, plts stabilizing, remains critically ill, cea elev 10/15: In ICU on Vent and off pressors, plt 62, no events 10/16 wbc trending up at 14,plt low at 48,weaning well from vent. no acute events , family at bedside 10/17: plts remain low, no events, weaned off vent, no complaints, off pressors Objective Last 24 Hour Vital Signs Date Time Temp Pulse Resp B/P (MAP) Pulse Ox O2 Delivery O2 Flow Rate FiO2 10/17/18 11:04 103 18 95 Nasal Cannula 2.0 10/17/18 11:00 105 22 161/77 (105) 98 10/17/18 10:00 108 22 165/78 (107) 98 10/17/18 09:32 104 10/17/18 09:00 105 22 171/77 (108) 98 10/17/18 08:00 104 10/17/18 08:00 Venturi Mask 10/17/18 08:00 98.8 104 22 165/70 (101) 98 10/17/18 07:16 Venturi Mask 12.0 40 10/17/18 07:12 96 Venturi Mask 12.0 40 10/17/18 07:00 101 22 152/66 (94) 98 10/17/18 06:00 103 160/82 (108) 98 10/17/18 05:00 101 24 153/76 (101) 98 10/17/18 04:00 Venturi Mask 10/17/18 04:00 98.4 103 31 150/67 (94) 98 10/17/18 04:00 103 10/17/18 03:00 102 24 145/75 (98) 98 10/17/18 02:00 101 24 156/80 (105) 98 10/17/18 01:00 98 24 158/71 (100) 98 10/17/18 00:00 Venturi Mask 10/17/18 00:00 98.3 99 22 157/81 (106) 98 10/17/18 00:00 107 10/16/18 23:00 107 24 143/82 (102) 98 10/16/18 22:00 107 26 143/82 (102) 98 10/16/18 21:00 111 18 189/89 (122) 86 10/16/18 20:00 96 Venturi Mask 12.0 40 10/16/18 20:00 107 10/16/18 20:00 Venturi Mask 12.0 40 10/16/18 20:00 106 10/16/18 20:00 Venturi Mask 10/16/18 20:00 98.6 106 18 169/93 (118) 97 10/16/18 19:00 112 17 150/77 (101) 100 10/16/18 18:00 108 19 144/72 (96) 100 10/16/18 17:00 110 18 148/70 (96) 100 Intake and Output 10/16/18 10/17/18 18:59 06:59 Intake Total 617.5 ml 1310.0 ml Output Total 740 ml 685 ml Balance -122.5 ml 625.0 ml IV Total 77.5 ml 1310.0 ml Tube Feeding 540 ml Output Urine Total 740 ml 685 ml Laboratory Tests 10/17/18 04:30: White Blood Count 10.7, Red Blood Count 3.92L, Hemoglobin 12.2, Hematocrit 37.6 , Mean Corpuscular Volume 96, Mean Corpuscular Hemoglobin 31.1H, Mean Corpuscular Hemoglobin Concent 32.5, Red Cell Distribution Width 17.9H, Platelet Count 41L, Mean Platelet Volume 6.4L, Neutrophils (%) (Auto) , Lymphocytes (%) (Auto) , Monocytes (%) (Auto) , Eosinophils (%) (Auto) , Basophils (%) (Auto) , Prothrombin Time 14.7H, Prothromb Time International Ratio 1.4H, Sodium Level 155H, Potassium Level 3.3L, Chloride Level 121H, Carbon Dioxide Level 20L, Anion Gap 14, Blood Urea Nitrogen 44H, Creatinine 2.2H , Estimat Glomerular Filtration Rate 22.9, Glucose Level 205H, Calcium Level 9.5 , Total Bilirubin 4.3H, Direct Bilirubin 3.0H, Aspartate Amino Transf (AST/SGOT ) 80H, Alanine Aminotransferase (ALT/SGPT) 598H, Alkaline Phosphatase 516H, Total Protein 5.3L, Albumin 2.2L, Globulin 3.1, Albumin/Globulin Ratio 0.7L 10/17/18 10:10: Ammonia 44H Height (Feet): 5 Height (Inches): 1.00 Weight (Pounds): 251 Objective PHYSICAL EXAMINATION: VITAL SIGNS: reviewed, saturating 98% on nc GENERAL: She is an obese female, confused. HEENT: Normocephalic and atraumatic. Oropharynx is clear with dry mucous membranes. NECK: Supple without lymphadenopathy or JVP. CHEST: Clear. HEART: Regular. ABDOMEN: Benign. EXTREMITIES: No cyanosis, clubbing, or edema. There are some ecchymoses in bilateral lower extremities. Kurtis Villagomez MD Oct 17, 2018 16:04
--- NOTE | 2018-10-17 18:02 | Cardiac Electrophysiology PN ---
Assessment/Plan Assessment/Plan 1. Atrial fib with RVR. Off Betablocker or CA janet for hypotension. On Dig 0.125 qod and amiodarone 200 daily. In SR 2.S/P Septic shock. On broad spectrum IV antibiotic. Off pressors 3. Troponin leak. The levels are flat and likely due to this patient's sepsis and septic shock. Her echocardiogram showed ejection fraction 60% to 65% and EKG showed no acute ischemic changes. 4. S/P Respiratory failure, Extubated 5. Diabetes. 6. Renal failure. 7. Morbid obesity. [employer] Subjective Subjective Extubated and transferred to SDU. No CP or SOB Objective Last 24 Hour Vital Signs Date Time Temp Pulse Resp B/P (MAP) Pulse Ox O2 Delivery O2 Flow Rate FiO2 10/17/18 16:17 102 20 96 Nasal Cannula 2.0 10/17/18 16:04 105 20 96 Nasal Cannula 2.0 28 10/17/18 16:00 Venturi Mask 10/17/18 16:00 104 10/17/18 16:00 98.8 104 22 157/69 (98) 98 10/17/18 12:00 Venturi Mask 10/17/18 12:00 105 10/17/18 12:00 98.2 105 22 139/70 (93) 98 10/17/18 11:12 106 20 97 Nasal Cannula 2.0 10/17/18 11:04 103 18 95 Nasal Cannula 2.0 10/17/18 11:00 105 22 161/77 (105) 98 10/17/18 10:00 108 22 165/78 (107) 98 10/17/18 09:32 104 10/17/18 09:00 105 22 171/77 (108) 98 10/17/18 08:00 104 10/17/18 08:00 Venturi Mask 10/17/18 08:00 98.8 104 22 165/70 (101) 98 10/17/18 07:16 Venturi Mask 12.0 40 10/17/18 07:12 96 Venturi Mask 12.0 40 10/17/18 07:00 101 22 152/66 (94) 98 10/17/18 06:00 103 160/82 (108) 98 10/17/18 05:00 101 24 153/76 (101) 98 10/17/18 04:00 Venturi Mask 10/17/18 04:00 98.4 103 31 150/67 (94) 98 10/17/18 04:00 103 10/17/18 03:00 102 24 145/75 (98) 98 10/17/18 02:00 101 24 156/80 (105) 98 10/17/18 01:00 98 24 158/71 (100) 98 10/17/18 00:00 Venturi Mask 10/17/18 00:00 98.3 99 22 157/81 (106) 98 10/17/18 00:00 107 10/16/18 23:00 107 24 143/82 (102) 98 10/16/18 22:00 107 26 143/82 (102) 98 10/16/18 21:00 111 18 189/89 (122) 86 10/16/18 20:00 96 Venturi Mask 12.0 40 10/16/18 20:00 107 10/16/18 20:00 Venturi Mask 12.0 40 10/16/18 20:00 106 10/16/18 20:00 Venturi Mask 10/16/18 20:00 98.6 106 18 169/93 (118) 97 10/16/18 19:00 112 17 150/77 (101) 100 10/16/18 18:00 108 19 144/72 (96) 100 Intake and Output 10/16/18 10/17/18 18:59 06:59 Intake Total 617.5 ml 1310.0 ml Output Total 740 ml 685 ml Balance -122.5 ml 625.0 ml IV Total 77.5 ml 1310.0 ml Tube Feeding 540 ml Output Urine Total 740 ml 685 ml Laboratory Tests Test 10/17/18 04:30 10/17/18 10:10 White Blood Count 10.7 K/UL (4.8-10.8) Red Blood Count 3.92 M/UL (4.20-5.40) L Hemoglobin 12.2 G/DL (12.0-16.0) Hematocrit 37.6 % (37.0-47.0) Mean Corpuscular Volume 96 FL (80-99) Mean Corpuscular Hemoglobin 31.1 PG (27.0-31.0) H Mean Corpuscular Hemoglobin Concent 32.5 G/DL (32.0-36.0) Red Cell Distribution Width 17.9 % (11.6-14.8) H Platelet Count 41 K/UL (150-450) L Mean Platelet Volume 6.4 FL (6.5-10.1) L Neutrophils (%) (Auto) % (45.0-75.0) Lymphocytes (%) (Auto) % (20.0-45.0) Monocytes (%) (Auto) % (1.0-10.0) Eosinophils (%) (Auto) % (0.0-3.0) Basophils (%) (Auto) % (0.0-2.0) Prothrombin Time 14.7 SEC (9.30-11.50) H Prothromb Time International Ratio 1.4 (0.9-1.1) H Sodium Level 155 MMOL/L (136-145) H Potassium Level 3.3 MMOL/L (3.5-5.1) L Chloride Level 121 MMOL/L (98-107) H Carbon Dioxide Level 20 MMOL/L (21-32) L Anion Gap 14 mmol/L (5-15) Blood Urea Nitrogen 44 mg/dL (7-18) H Creatinine 2.2 MG/DL (0.55-1.30) H Estimat Glomerular Filtration Rate 22.9 mL/min (>60) Glucose Level 205 MG/DL (74-106) H Calcium Level 9.5 MG/DL (8.5-10.1) Total Bilirubin 4.3 MG/DL (0.2-1.0) H Direct Bilirubin 3.0 MG/DL (0.0-0.3) H Aspartate Amino Transf (AST/SGOT) 80 U/L (15-37) H Alanine Aminotransferase (ALT/SGPT) 598 U/L (12-78) H Alkaline Phosphatase 516 U/L (46-116) H Total Protein 5.3 G/DL (6.4-8.2) L Albumin 2.2 G/DL (3.4-5.0) L Globulin 3.1 g/dL Albumin/Globulin Ratio 0.7 (1.0-2.7) L Ammonia 44 umol/L (11-32) H Objective HEAD AND NECK: no Jvd LUNGS: Coarse rhonchi. CARDIOVASCULAR: Regular S1, S2 with no gallop or murmur. ABDOMEN: Obese. EXTREMITIES: No pitting edema. Sean Montanez MD Oct 17, 2018 18:02
--- NOTE | 2018-10-17 19:13 | NUR ---
HAND-OFF: Report given to KARI Freire.
--- NOTE | 2018-10-17 19:13 | NUR ---
NURSE NOTES: Received report from Aislinn Eagle RN. Patient is awake in bed watching television, A/O x4. Sinus rhythm on diagnostic cardiac sonographer. No s/s of acute distress noted. On 2L O2 via nasal cannula and saturating well. Rectal tube noted. Quiroz catheter intact and draining well to gravity. Left upper arm PICC line, intact and patent running D5W @ 100 cc/hr. Bed locked in lowest position with side rails up x3. Call light left within reach, remains at bedside. Will continue to monitor.
--- NOTE | 2018-10-17 19:42 | NUR ---
CASE MANAGEMENT: REVIEW SI: HYPOXIA . LIVER CIRRHOSIS . RESP DISTRESS T 98.8 HR 108 RR 22 BP 165/70 SAT 98% VENTURI MASK 40 NA 155 K 3.3 BUN 44 CR 2.2 IS: DIGOXIN NG QOD AMIODARONE NG QD RIFAXIMIN NG Q12HR ZOSYN IV Q12HR ALBUTEROL HHN Q6HR NPO STEP DOWN UNIT STATUS DCP: PATIENT IS FROM HOME
[2018-10-17] MEDS: Dyna-Hex 2% Top Sol 2oz TOPIC SCH (20:23)
--- NOTE | 2018-10-17 22:09 | General Progress Note ---
Assessment/Plan Problem List: (1) Hypotension ICD Codes: I95.9 - Hypotension, unspecified SNOMED: 46254842 (2) Hyperglycemia ICD Codes: R73.9 - Hyperglycemia, unspecified SNOMED: 71201551 (3) Dyspnea ICD Codes: R06.00 - Dyspnea, unspecified SNOMED: 257560038 (4) Hypoxemia ICD Codes: R09.02 - Hypoxemia SNOMED: 581662815 (5) Contusion of left knee ICD Codes: S80.02XA - Contusion of left knee, initial encounter SNOMED: 67407563 (6) Sepsis ICD Codes: A41.9 - Sepsis, unspecified organism SNOMED: 34992762 (7) Septic shock ICD Codes: A41.9 - Sepsis, unspecified organism; R65.21 - Severe sepsis with septic shock SNOMED: 66234577 (8) Liver cirrhosis ICD Codes: K74.60 - Unspecified cirrhosis of liver SNOMED: 47712798 (9) Pneumonia ICD Codes: J18.9 - Pneumonia, unspecified organism SNOMED: 800931821 (10) Respiratory disorder with ventilator dependence ICD Codes: J98.9 - Respiratory disorder, unspecified; Z99.11 - Dependence on respirator [ventilator] status SNOMED: 22892064, 586226939 (11) Shock liver ICD Codes: K72.00 - Acute and subacute hepatic failure without coma SNOMED: 588629309 Status: progressing Assessment/Plan extubated congested needs pulmonary toilet cihrrosis sepsis obesity morbid pna elevated lft improving Subjective ROS Limited/Unobtainable: Yes Allergies: Coded Allergies: No Known Allergies (Unverified , 05/06/18) Objective Last 24 Hour Vital Signs Date Time Temp Pulse Resp B/P (MAP) Pulse Ox O2 Delivery O2 Flow Rate FiO2 10/17/18 20:00 98.5 110 24 148/61 (90) 95 10/17/18 20:00 Venturi Mask 10/17/18 19:54 109 20 99 Nasal Cannula 3.0 32 10/17/18 19:44 108 20 95 Nasal Cannula 3.0 32 10/17/18 19:43 Nasal Cannula 3.0 32 10/17/18 19:43 95 Nasal Cannula 3.0 32 10/17/18 16:17 102 20 96 Nasal Cannula 2.0 10/17/18 16:04 105 20 96 Nasal Cannula 2.0 28 10/17/18 16:00 Venturi Mask 10/17/18 16:00 104 10/17/18 16:00 98.8 104 22 157/69 (98) 98 10/17/18 12:00 Venturi Mask 10/17/18 12:00 105 10/17/18 12:00 98.2 105 22 139/70 (93) 98 10/17/18 11:12 106 20 97 Nasal Cannula 2.0 10/17/18 11:04 103 18 95 Nasal Cannula 2.0 10/17/18 11:00 105 22 161/77 (105) 98 10/17/18 10:00 108 22 165/78 (107) 98 10/17/18 09:32 104 10/17/18 09:00 105 22 171/77 (108) 98 10/17/18 08:00 104 10/17/18 08:00 Venturi Mask 10/17/18 08:00 98.8 104 22 165/70 (101) 98 10/17/18 07:16 Venturi Mask 12.0 40 10/17/18 07:12 96 Venturi Mask 12.0 40 10/17/18 07:00 101 22 152/66 (94) 98 10/17/18 06:00 103 160/82 (108) 98 10/17/18 05:00 101 24 153/76 (101) 98 10/17/18 04:00 Venturi Mask 10/17/18 04:00 98.4 103 31 150/67 (94) 98 10/17/18 04:00 103 10/17/18 03:00 102 24 145/75 (98) 98 10/17/18 02:00 101 24 156/80 (105) 98 10/17/18 01:00 98 24 158/71 (100) 98 10/17/18 00:00 Venturi Mask 10/17/18 00:00 98.3 99 22 157/81 (106) 98 10/17/18 00:00 107 10/16/18 23:00 107 24 143/82 (102) 98 Intake and Output 10/16/18 10/17/18 19:00 07:00 Intake Total 495 ml 1437.5 ml Output Total 670 ml 710 ml Balance -175 ml 727.5 ml IV Total 1437.5 ml Tube Feeding 495 ml Output Urine Total 670 ml 710 ml Laboratory Tests 10/17/18 04:30: White Blood Count 10.7, Red Blood Count 3.92L, Hemoglobin 12.2, Hematocrit 37.6 , Mean Corpuscular Volume 96, Mean Corpuscular Hemoglobin 31.1H, Mean Corpuscular Hemoglobin Concent 32.5, Red Cell Distribution Width 17.9H, Platelet Count 41L, Mean Platelet Volume 6.4L, Neutrophils (%) (Auto) , Lymphocytes (%) (Auto) , Monocytes (%) (Auto) , Eosinophils (%) (Auto) , Basophils (%) (Auto) , Prothrombin Time 14.7H, Prothromb Time International Ratio 1.4H, Sodium Level 155H, Potassium Level 3.3L, Chloride Level 121H, Carbon Dioxide Level 20L, Anion Gap 14, Blood Urea Nitrogen 44H, Creatinine 2.2H , Estimat Glomerular Filtration Rate 22.9, Glucose Level 205H, Calcium Level 9.5 , Total Bilirubin 4.3H, Direct Bilirubin 3.0H, Aspartate Amino Transf (AST/SGOT ) 80H, Alanine Aminotransferase (ALT/SGPT) 598H, Alkaline Phosphatase 516H, Total Protein 5.3L, Albumin 2.2L, Globulin 3.1, Albumin/Globulin Ratio 0.7L 10/17/18 10:10: Ammonia 44H Height (Feet): 5 Height (Inches): 1.00 Weight (Pounds): 251 Neck: supple Cardiovascular: normal rate Respiratory/Chest: lungs clear Abdomen: soft Michael Kelley MD Oct 17, 2018 22:09
[2018-10-18] VITALS: BP 138/70
[2018-10-18] MEDS: Metoclopramide 10mg/2ml Inj IVP SCH ×5 (00:09→23:58)
[2018-10-18] MEDS: Albuterol/Ipratropium 3ml neb HHN SCH ×6 (03:14→23:55)
[2018-10-18 04:00] VITALS: BP 150/69
[2018-10-18] MEDS: Piperacillin/Tazobactam 3.375 GM in D5W 110 ML IVPB SCH (05:37)
[2018-10-18] MEDS: NovoLOG Insulin Flexpen SUBQ SCH ×4 (06:04→21:21)
[2018-10-18 06:10] LABS: HEMOGLOBIN 8.4 G/DL (12.0-16.0); MEAN CORPUSCULAR VOLUME 95 FL (80-99); PLATELET COUNT 50 K/UL (150-450); RED BLOOD COUNT 2.73 M/UL (4.20-5.40); RED CELL DISTRIBUTION WIDTH 18.8 % (11.6-14.8); WHITE BLOOD COUNT 15.9 K/UL (4.8-10.8)
[2018-10-18 06:22] LABS: ALANINE AMINOTRANSFERASE 441 U/L (12-78); ALBUMIN 2.5 G/DL (3.4-5.0); ALBUMIN/GLOBULIN RATIO 0.9 (1.0-2.7); ALKALINE PHOSPHATASE 465 U/L (46-116); ANION GAP 11 mmol/L (5-15); ASPARTATE AMINO TRANSFERASE 75 U/L (15-37); BILIRUBIN,TOTAL 5.6 MG/DL (0.2-1.0); BLOOD UREA NITROGEN 36 mg/dL (7-18); CALCIUM 9.7 MG/DL (8.5-10.1); CARBON DIOXIDE 21 MMOL/L (21-32); CHLORIDE 120 MMOL/L (98-107); CREATININE 1.9 MG/DL (0.55-1.30); POTASSIUM 3.3 MMOL/L (3.5-5.1); SODIUM 152 MMOL/L (136-145)
--- NOTE | 2018-10-18 06:38 | NUR ---
NURSE NOTES: Left message for Tanner Reese MD regarding patient wbc trending up to 15.9 and hgb trending down to 8.4. Awaiting response.
--- NOTE | 2018-10-18 07:15 | NUR ---
HAND-OFF: Report given to Ashlee Carlos RN.
--- NOTE | 2018-10-18 07:16 | NUR ---
NURSE NOTES: Received patient from Sukhjinder Hester RN. Patient in bed and awake. on 2L NC. monitor and storage bin tender, rectal tube, and medina catheter in placed. PICC on LISA with D5W at 100 cc/hour. Bed in lowest position with side rails up. Will continue to follow plan of care.
[2018-10-18 08:00] VITALS: BP 159/82
[2018-10-18] MEDS: Lactulose 20gm/30ml UDC NG SCH ×3 (08:15→18:19)
[2018-10-18] MEDS: Amiodarone 200mg tab NG SCH (08:16)
[2018-10-18] MEDS: Pantoprazole Inj IVP SCH ×2 (08:20→21:18)
--- NOTE | 2018-10-18 09:41 | NUR ---
ST NOTE: SWALLOW/SPEECH/COGNITION STATUS: FOLLOWED UP PT'S CONDITIONS. PT SEEN AT BEDSIDE IN AM. PER YOSELYN PIERCE, RN WAS UNABLE TO RE-INSERT NGT YESTERDAY. CURRENTLY, PT'S VITAL SIGN: HEART RATE: 93-108; RR: 24; OXYGEN LEVEL: 96% WITH NC(2L). MILD SHALLOW BREATHING WAS NOTED. DRY MOUTH WAS NOTED; VOICE IS CLEAR, NO WET VOCAL QUALITY NOR ORAL SUCTION IS NEEDED AT THIS TIME. PT IS ABLE TO FOLLOW DIRECTIONS; AND ABLE TO DEMONSTRATE DRY SWALLOW RESPONSE. PER B/S EVAL YESTERDAY, RECOMMENDED MODIFIED BARIUM SWALLOW STUDY(MBSS) WHEN PT IS READY. REQUESTED MBSS ORDER FROM , DR. THAO(REFERRED PHYSICIAN), RECEIVED TELEPHONE ORDER FROM MD. WILL FOLLOW. YOSELYN PIERCE, NOTIFIED.
--- NOTE | 2018-10-18 09:45 | Infectious Diseases Prog Note ---
Assessment/Plan Assessment/Plan A: 1. Septic Shock resolved.culture are negative so far 2. aspiration pneumonia. 3. Multiorgan failure including acute renal failure and hypercapnic respiratory failure. 4. Diabetes mellitus. 5. Obesity. 6. Lactic acidosis. 7. Anemia.s/p transfusion 8. Cirrhosis. 9. Enteritis, ileus resolved 10. Leukocytosis RECOMMENDATION: continue with Zosyn until expiration time today Subjective ROS Limited/Unobtainable: Yes Constitutional: Reports: other - transferred out of ICU Respiratory: Reports: no symptoms Gastrointestinal/Abdominal: Reports: other - NPO Allergies: Coded Allergies: No Known Allergies (Unverified , 05/06/18) Objective Vital Signs Last 24 Hour Vital Signs Date Time Temp Pulse Resp B/P (MAP) Pulse Ox O2 Delivery O2 Flow Rate FiO2 10/18/18 08:00 Nasal Cannula 2.0 10/18/18 08:00 98.8 108 24 159/82 (107) 96 10/18/18 07:27 93 10/18/18 04:00 98.8 112 23 150/69 (96) 94 10/18/18 04:00 Venturi Mask 10/18/18 03:32 113 10/18/18 03:24 110 20 99 Nasal Cannula 3.0 32 10/18/18 03:14 111 20 94 Nasal Cannula 3.0 32 10/18/18 00:00 Venturi Mask 10/18/18 00:00 98.9 116 24 138/70 (92) 94 10/17/18 23:28 112 20 98 Nasal Cannula 3.0 32 10/17/18 23:24 113 10/17/18 23:13 109 20 95 Nasal Cannula 3.0 32 10/17/18 20:00 98.5 110 24 148/61 (90) 95 10/17/18 20:00 110 10/17/18 20:00 Venturi Mask 10/17/18 19:54 109 20 99 Nasal Cannula 3.0 32 10/17/18 19:44 108 20 95 Nasal Cannula 3.0 32 10/17/18 19:43 Nasal Cannula 3.0 32 10/17/18 19:43 95 Nasal Cannula 3.0 32 10/17/18 16:17 102 20 96 Nasal Cannula 2.0 10/17/18 16:04 105 20 96 Nasal Cannula 2.0 28 10/17/18 16:00 Venturi Mask 10/17/18 16:00 104 10/17/18 16:00 98.8 104 22 157/69 (98) 98 10/17/18 12:00 Venturi Mask 10/17/18 12:00 105 10/17/18 12:00 98.2 105 22 139/70 (93) 98 10/17/18 11:12 106 20 97 Nasal Cannula 2.0 10/17/18 11:04 103 18 95 Nasal Cannula 2.0 10/17/18 11:00 105 22 161/77 (105) 98 10/17/18 10:00 108 22 165/78 (107) 98 Height (Feet): 5 Height (Inches): 1.00 Weight (Pounds): 251 General Appearance: no acute distress HEENT: mucous membranes moist Respiratory/Chest: lungs clear Cardiovascular: tachycardia, other - PICC line Extremities: other - generalized edema Neurologic/Psychiatric: alert, responsive Laboratory Tests Test 10/17/18 10:10 10/18/18 04:00 Ammonia 44 umol/L (11-32) H White Blood Count 15.9 K/UL (4.8-10.8) H Red Blood Count 2.73 M/UL (4.20-5.40) L Hemoglobin 8.4 G/DL (12.0-16.0) #L Hematocrit 26.0 % (37.0-47.0) #L Mean Corpuscular Volume 95 FL (80-99) Mean Corpuscular Hemoglobin 30.6 PG (27.0-31.0) Mean Corpuscular Hemoglobin Concent 32.2 G/DL (32.0-36.0) Red Cell Distribution Width 18.8 % (11.6-14.8) H Platelet Count 50 K/UL (150-450) L Mean Platelet Volume 5.4 FL (6.5-10.1) L Neutrophils (%) (Auto) % (45.0-75.0) Lymphocytes (%) (Auto) % (20.0-45.0) Monocytes (%) (Auto) % (1.0-10.0) Eosinophils (%) (Auto) % (0.0-3.0) Basophils (%) (Auto) % (0.0-2.0) Differential Total Cells Counted 100 Neutrophils % (Manual) 86 % (45-75) H Lymphocytes % (Manual) 9 % (20-45) L Monocytes % (Manual) 3 % (1-10) Eosinophils % (Manual) 2 % (0-3) Basophils % (Manual) 0 % (0-2) Band Neutrophils 0 % (0-8) Platelet Estimate Decreased L Platelet Morphology Normal Polychromasia 1+ Hypochromasia 1+ Anisocytosis 1+ Sodium Level 152 MMOL/L (136-145) H Potassium Level 3.3 MMOL/L (3.5-5.1) L Chloride Level 120 MMOL/L (98-107) H Carbon Dioxide Level 21 MMOL/L (21-32) Anion Gap 11 mmol/L (5-15) Blood Urea Nitrogen 36 mg/dL (7-18) H Creatinine 1.9 MG/DL (0.55-1.30) H Estimat Glomerular Filtration Rate 27.2 mL/min (>60) Glucose Level 147 MG/DL (74-106) H Calcium Level 9.7 MG/DL (8.5-10.1) Total Bilirubin 5.6 MG/DL (0.2-1.0) H Direct Bilirubin 4.0 MG/DL (0.0-0.3) H Aspartate Amino Transf (AST/SGOT) 75 U/L (15-37) H Alanine Aminotransferase (ALT/SGPT) 441 U/L (12-78) H Alkaline Phosphatase 465 U/L (46-116) H Total Protein 5.3 G/DL (6.4-8.2) L Albumin 2.5 G/DL (3.4-5.0) L Globulin 2.8 g/dL Albumin/Globulin Ratio 0.9 (1.0-2.7) L Anti-Nuclear Antibody Screen Pending F-Actin IgG Antibody Pending Current Medications Medications (Trade) Dose Ordered Sig/Patricia Route PRN Reason Start Time Stop Time Status Last Admin Dose Admin Acetaminophen (Tylenol) 650 mg Q4H PRN ORAL Mild Pain/Temp > 100.5 10/17/18 15:00 11/08/18 14:59 Albuterol/ Ipratropium (Albuterol/ Ipratropium) 3 ml Q4HRT HHN 10/17/18 15:00 10/22/18 10:59 10/18/18 03:14 Amiodarone HCl (Cordarone) 200 mg DAILY NG 10/18/18 09:00 11/12/18 20:59 10/18/18 08:16 Chlorhexidine Gluconate (Nguyen-Hex 2%) 1 applic DAILY@2000 TOPIC 10/17/18 20:00 11/09/18 19:59 10/17/18 20:23 Dextrose 1,000 ml @ 100 mls/hr Q10H IV 10/17/18 14:30 11/15/18 19:29 10/18/18 00:35 Dextrose (Dextrose 50%) 25 ml Q30M PRN IV Hypoglycemia 10/17/18 14:45 11/10/18 13:44 Dextrose (Dextrose 50%) 50 ml Q30M PRN IV Hypoglycemia 10/17/18 14:45 11/10/18 13:44 Digoxin (Lanoxin) 0.125 mg QOD NG 10/19/18 09:00 11/15/18 08:59 Diphenhydramine HCl (Benadryl) 25 mg Q6H PRN IVP Itching 10/17/18 14:30 11/08/18 14:29 Insulin Aspart (NovoLOG) BEFORE MEALS AND HS SUBQ 10/17/18 16:30 11/10/18 16:29 10/18/18 06:04 Lactulose (Cephulac) 30 gm THREE TIMES A DAY NG 10/17/18 18:00 11/12/18 17:59 10/18/18 08:15 Metoclopramide HCl (Reglan) 5 mg Q6H IVP 10/17/18 17:30 11/13/18 11:29 10/18/18 05:33 Midazolam HCl (Versed 2mg/2ml vial) 1 mg Q2H PRN IVP For Anxiety 10/17/18 14:30 11/11/18 14:29 Pantoprazole (Protonix) 40 mg EVERY 12 HOURS IVP 10/17/18 21:00 11/09/18 20:59 10/18/18 08:20 Piperacillin Sod/ Tazobactam Sod 3.375 gm/Dextrose 110 ml @ 27.5 mls/hr Q12H IVPB 10/17/18 18:00 10/18/18 17:59 10/18/18 05:37 Rifaximin (Xifaxan) 550 mg EVERY 12 HOURS ORAL 10/17/18 21:00 10/19/18 20:59 10/18/18 08:15 Wesley Akers MD Oct 18, 2018 09:45
--- NOTE | 2018-10-18 10:54 | GI Progress Note ---
Assessment/Plan Problems: (1) Shock liver ICD Codes: K72.00 - Acute and subacute hepatic failure without coma SNOMED: 992720900 (2) Liver cirrhosis ICD Codes: K74.60 - Unspecified cirrhosis of liver SNOMED: 21544190 (3) Septic shock ICD Codes: A41.9 - Sepsis, unspecified organism; R65.21 - Severe sepsis with septic shock SNOMED: 80030171 (4) Sepsis ICD Codes: A41.9 - Sepsis, unspecified organism SNOMED: 63630881 (5) Respiratory disorder with ventilator dependence ICD Codes: J98.9 - Respiratory disorder, unspecified; Z99.11 - Dependence on respirator [ventilator] status SNOMED: 40861239, 323486908 (6) Normocytic anemia ICD Codes: D64.9 - Anemia, unspecified SNOMED: 389245090 Status: progressing Status Narrative Discussed with Dr. Reynolds Assessment/Plan ppi BID monitor H&H fu LFTS>> improving work up for elevated CEA when more stable lasix and albumin combination xifaxan and lactulose reglan fu speech eval today >> recommend video swallow study ordered JAD,SMA,AMA Follow labs The patient was seen and examined at bedside and all new and available data was reviewed in the patients chart. I agree with the above findings, impression and plan. (Patient seen earlier today. Signature stamp does not reflect patient encounter time.). - Samuel Reynolds MD Subjective Gastrointestinal/Abdominal: Reports: no symptoms Subjective limited Objective Last 24 Hour Vital Signs Date Time Temp Pulse Resp B/P (MAP) Pulse Ox O2 Delivery O2 Flow Rate FiO2 10/18/18 08:02 Nasal Cannula 3.0 10/18/18 08:00 96 Nasal Cannula 3.0 10/18/18 08:00 Nasal Cannula 2.0 10/18/18 08:00 98.8 108 24 159/82 (107) 96 10/18/18 07:55 Nasal Cannula 10/18/18 07:55 Nasal Cannula 10/18/18 07:27 93 10/18/18 04:00 98.8 112 23 150/69 (96) 94 10/18/18 04:00 Venturi Mask 10/18/18 03:32 113 10/18/18 03:24 110 20 99 Nasal Cannula 3.0 32 10/18/18 03:14 111 20 94 Nasal Cannula 3.0 32 10/18/18 00:00 Venturi Mask 10/18/18 00:00 98.9 116 24 138/70 (92) 94 10/17/18 23:28 112 20 98 Nasal Cannula 3.0 32 10/17/18 23:24 113 10/17/18 23:13 109 20 95 Nasal Cannula 3.0 32 10/17/18 20:00 98.5 110 24 148/61 (90) 95 10/17/18 20:00 110 10/17/18 20:00 Venturi Mask 10/17/18 19:54 109 20 99 Nasal Cannula 3.0 32 10/17/18 19:44 108 20 95 Nasal Cannula 3.0 32 10/17/18 19:43 Nasal Cannula 3.0 32 10/17/18 19:43 95 Nasal Cannula 3.0 32 10/17/18 16:17 102 20 96 Nasal Cannula 2.0 10/17/18 16:04 105 20 96 Nasal Cannula 2.0 28 10/17/18 16:00 Venturi Mask 10/17/18 16:00 104 10/17/18 16:00 98.8 104 22 157/69 (98) 98 10/17/18 12:00 Venturi Mask 10/17/18 12:00 105 10/17/18 12:00 98.2 105 22 139/70 (93) 98 10/17/18 11:12 106 20 97 Nasal Cannula 2.0 10/17/18 11:04 103 18 95 Nasal Cannula 2.0 10/17/18 11:00 105 22 161/77 (105) 98 Intake and Output 10/17/18 10/18/18 19:00 07:00 Intake Total 500 ml 602.207 ml Output Total 610 ml 400 ml Balance -110 ml 202.207 ml IV Total 500 ml 602.207 ml Output Urine Total 610 ml 400 ml Laboratory Tests Test 10/18/18 04:00 White Blood Count 15.9 K/UL (4.8-10.8) H Red Blood Count 2.73 M/UL (4.20-5.40) L Hemoglobin 8.4 G/DL (12.0-16.0) #L Hematocrit 26.0 % (37.0-47.0) #L Mean Corpuscular Volume 95 FL (80-99) Mean Corpuscular Hemoglobin 30.6 PG (27.0-31.0) Mean Corpuscular Hemoglobin Concent 32.2 G/DL (32.0-36.0) Red Cell Distribution Width 18.8 % (11.6-14.8) H Platelet Count 50 K/UL (150-450) L Mean Platelet Volume 5.4 FL (6.5-10.1) L Neutrophils (%) (Auto) % (45.0-75.0) Lymphocytes (%) (Auto) % (20.0-45.0) Monocytes (%) (Auto) % (1.0-10.0) Eosinophils (%) (Auto) % (0.0-3.0) Basophils (%) (Auto) % (0.0-2.0) Differential Total Cells Counted 100 Neutrophils % (Manual) 86 % (45-75) H Lymphocytes % (Manual) 9 % (20-45) L Monocytes % (Manual) 3 % (1-10) Eosinophils % (Manual) 2 % (0-3) Basophils % (Manual) 0 % (0-2) Band Neutrophils 0 % (0-8) Platelet Estimate Decreased L Platelet Morphology Normal Polychromasia 1+ Hypochromasia 1+ Anisocytosis 1+ Sodium Level 152 MMOL/L (136-145) H Potassium Level 3.3 MMOL/L (3.5-5.1) L Chloride Level 120 MMOL/L (98-107) H Carbon Dioxide Level 21 MMOL/L (21-32) Anion Gap 11 mmol/L (5-15) Blood Urea Nitrogen 36 mg/dL (7-18) H Creatinine 1.9 MG/DL (0.55-1.30) H Estimat Glomerular Filtration Rate 27.2 mL/min (>60) Glucose Level 147 MG/DL (74-106) H Calcium Level 9.7 MG/DL (8.5-10.1) Total Bilirubin 5.6 MG/DL (0.2-1.0) H Direct Bilirubin 4.0 MG/DL (0.0-0.3) H Aspartate Amino Transf (AST/SGOT) 75 U/L (15-37) H Alanine Aminotransferase (ALT/SGPT) 441 U/L (12-78) H Alkaline Phosphatase 465 U/L (46-116) H Total Protein 5.3 G/DL (6.4-8.2) L Albumin 2.5 G/DL (3.4-5.0) L Globulin 2.8 g/dL Albumin/Globulin Ratio 0.9 (1.0-2.7) L Anti-Nuclear Antibody Screen Pending F-Actin IgG Antibody Pending Height (Feet): 5 Height (Inches): 1.00 Weight (Pounds): 251 General Appearance: WD/WN, no apparent distress, alert Cardiovascular: normal rate Respiratory/Chest: normal breath sounds, no respiratory distress Abdominal Exam: normal bowel sounds, non tender, soft Extremities: non-tender Cole Serna NP Oct 18, 2018 10:54
--- NOTE | 2018-10-18 11:07 | Pulmonology Progress Note ---
Assessment/Plan Assessment/Plan ASSESSMENT: The patient is a 58-year-old female with a history of obesity, diabetes, hypertension, hyperlipidemia, and sciatica with chronic low back pain , DDD/DJD, presenting after a mechanical fall with altered mental status and confusion with likely sepsis and multisystem organ failure. PROBLEM LIST: 1. VDRF, EXTUBATED 10/16/18 2. Sepsis 3. Shock, hypovolemic and distributive. 4. Multisystem organ failure. 5. Lactic acidosis. 6. Anion gap metabolic acidosis. 7. JONNATHAN - BETTER 7. Abnormal LFTs, likely shock liver. 8. Abnormal troponin, likely demand ischemia. 9. Elevated D-dimer and PASP concerning for an acute PE 10. Obesity. 11. Diabetes. 12. Hypertension. 13. Chronic low back pain and sciatica. 14. Anemia/FOBT + 15. Thrombocytopenia 16. AFcRVR now in NSR 17. HyperNa TREATMENT PLAN: 1. Optimize pulmonary hygiene/mobilize as tolerated 2. Titrate down FiO2 to keep SaO2 < 90% 3. Zosyn (D10) to complete today per ID 4. Inc D5W to 150, continue IV Lasix 6. SSI, monitor BS 7. Follow up cards recs 8. [employer] recs, plan for VSS 9. VQ scan when able or CT-A if renal function better 10. DVT prophylaxis: hep held 2/2 thrombocytopenia, ? HIT Ab panel 11. F/U GI recs, ? ENDOSCOPY Subjective Allergies: Coded Allergies: No Known Allergies (Unverified , 05/06/18) Subjective AFVSS on 2L Hb dropped to 8.4 FOBT + NGT not placed, plt 50 + cough no SOB no F/C Objective Last 24 Hour Vital Signs Date Time Temp Pulse Resp B/P (MAP) Pulse Ox O2 Delivery O2 Flow Rate FiO2 10/18/18 08:02 Nasal Cannula 3.0 10/18/18 08:00 96 Nasal Cannula 3.0 10/18/18 08:00 Nasal Cannula 2.0 10/18/18 08:00 98.8 108 24 159/82 (107) 96 10/18/18 07:55 Nasal Cannula 10/18/18 07:55 Nasal Cannula 10/18/18 07:27 93 10/18/18 04:00 98.8 112 23 150/69 (96) 94 10/18/18 04:00 Venturi Mask 10/18/18 03:32 113 10/18/18 03:24 110 20 99 Nasal Cannula 3.0 32 10/18/18 03:14 111 20 94 Nasal Cannula 3.0 32 10/18/18 00:00 Venturi Mask 10/18/18 00:00 98.9 116 24 138/70 (92) 94 10/17/18 23:28 112 20 98 Nasal Cannula 3.0 32 10/17/18 23:24 113 10/17/18 23:13 109 20 95 Nasal Cannula 3.0 32 10/17/18 20:00 98.5 110 24 148/61 (90) 95 10/17/18 20:00 110 10/17/18 20:00 Venturi Mask 10/17/18 19:54 109 20 99 Nasal Cannula 3.0 32 10/17/18 19:44 108 20 95 Nasal Cannula 3.0 32 10/17/18 19:43 Nasal Cannula 3.0 32 10/17/18 19:43 95 Nasal Cannula 3.0 32 10/17/18 16:17 102 20 96 Nasal Cannula 2.0 10/17/18 16:04 105 20 96 Nasal Cannula 2.0 28 10/17/18 16:00 Venturi Mask 10/17/18 16:00 104 10/17/18 16:00 98.8 104 22 157/69 (98) 98 10/17/18 12:00 Venturi Mask 10/17/18 12:00 105 10/17/18 12:00 98.2 105 22 139/70 (93) 98 10/17/18 11:12 106 20 97 Nasal Cannula 2.0 Intake and Output 10/17/18 10/18/18 19:00 07:00 Intake Total 500 ml 602.207 ml Output Total 610 ml 400 ml Balance -110 ml 202.207 ml IV Total 500 ml 602.207 ml Output Urine Total 610 ml 400 ml General Appearance: no acute distress HEENT: normocephalic, atraumatic, anicteric, mucous membranes moist Respiratory/Chest: crackles/rales Cardiovascular: normal peripheral pulses, regular rhythm, tachycardia Abdomen: soft, non tender, no organomegaly, non distended, no mass Extremities: no cyanosis, no clubbing, other - 2+ edema Laboratory Tests 10/18/18 04:00: White Blood Count 15.9H, Red Blood Count 2.73L, Hemoglobin 8.4#L, Hematocrit 26.0#L, Mean Corpuscular Volume 95, Mean Corpuscular Hemoglobin 30.6, Mean Corpuscular Hemoglobin Concent 32.2, Red Cell Distribution Width 18.8H, Platelet Count 50L, Mean Platelet Volume 5.4L, Neutrophils (%) (Auto) , Lymphocytes (%) (Auto) , Monocytes (%) (Auto) , Eosinophils (%) (Auto) , Basophils (%) (Auto) , Differential Total Cells Counted 100, Neutrophils % ( Manual) 86H, Lymphocytes % (Manual) 9L, Monocytes % (Manual) 3, Eosinophils % ( Manual) 2, Basophils % (Manual) 0, Band Neutrophils 0, Platelet Estimate DecreasedL, Platelet Morphology Normal, Polychromasia 1+, Hypochromasia 1+, Anisocytosis 1+, Sodium Level 152H, Potassium Level 3.3L, Chloride Level 120H, Carbon Dioxide Level 21, Anion Gap 11, Blood Urea Nitrogen 36H, Creatinine 1.9H , Estimat Glomerular Filtration Rate 27.2, Glucose Level 147H, Calcium Level 9.7 , Total Bilirubin 5.6H, Direct Bilirubin 4.0H, Aspartate Amino Transf (AST/SGOT ) 75H, Alanine Aminotransferase (ALT/SGPT) 441H, Alkaline Phosphatase 465H, Total Protein 5.3L, Albumin 2.5L, Globulin 2.8, Albumin/Globulin Ratio 0.9L, Anti-Nuclear Antibody Screen [Pending], F-Actin IgG Antibody [Pending] Current Medications Medications (Trade) Dose Ordered Sig/Patricia Route PRN Reason Start Time Stop Time Status Last Admin Dose Admin Acetaminophen (Tylenol) 650 mg Q4H PRN ORAL Mild Pain/Temp > 100.5 10/17/18 15:00 11/08/18 14:59 Albuterol/ Ipratropium (Albuterol/ Ipratropium) 3 ml Q4HRT HHN 10/17/18 15:00 10/22/18 10:59 10/18/18 03:14 Amiodarone HCl (Cordarone) 200 mg DAILY NG 10/18/18 09:00 11/12/18 20:59 10/18/18 08:16 Chlorhexidine Gluconate (Nguyen-Hex 2%) 1 applic DAILY@2000 TOPIC 3/6/19 20:00 11/09/18 19:59 10/17/18 20:23 Dextrose 1,000 ml @ 100 mls/hr Q10H IV 10/17/18 14:30 11/15/18 19:29 10/18/18 10:41 Dextrose (Dextrose 50%) 25 ml Q30M PRN IV Hypoglycemia 10/17/18 14:45 11/10/18 13:44 Dextrose (Dextrose 50%) 50 ml Q30M PRN IV Hypoglycemia 10/17/18 14:45 11/10/18 13:44 Digoxin (Lanoxin) 0.125 mg QOD NG 10/19/18 09:00 11/15/18 08:59 Diphenhydramine HCl (Benadryl) 25 mg Q6H PRN IVP Itching 10/17/18 14:30 11/08/18 14:29 Insulin Aspart (NovoLOG) BEFORE MEALS AND HS SUBQ 10/17/18 16:30 11/10/18 16:29 10/18/18 06:04 Lactulose (Cephulac) 30 gm THREE TIMES A DAY NG 10/17/18 18:00 11/12/18 17:59 10/18/18 08:15 Metoclopramide HCl (Reglan) 5 mg Q6H IVP 10/17/18 17:30 11/13/18 11:29 10/18/18 05:33 Midazolam HCl (Versed 2mg/2ml vial) 1 mg Q2H PRN IVP For Anxiety 10/17/18 14:30 11/11/18 14:29 Pantoprazole (Protonix) 40 mg EVERY 12 HOURS IVP 10/17/18 21:00 11/09/18 20:59 10/18/18 08:20 Piperacillin Sod/ Tazobactam Sod 3.375 gm/Dextrose 110 ml @ 27.5 mls/hr Q12H IVPB 10/17/18 18:00 10/18/18 17:59 10/18/18 05:37 Rifaximin (Xifaxan) 550 mg EVERY 12 HOURS ORAL 10/17/18 21:00 10/19/18 20:59 10/18/18 08:15 Renato Delarosa MD Oct 18, 2018 11:07
[2018-10-18 12:00] VITALS: BP 142/81
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
--- NOTE | 2018-10-18 14:47 | Nephrology Progress Note ---
Assessment/Plan Problem List: (1) JONNATHAN (acute kidney injury) (2) Shock liver (3) Septic shock (4) Respiratory disorder with ventilator dependence Assessment - Acute Oliguric Renal Failure Cr down to 1.9 - Respiratory disorder with ventilator dependence - Septic shock , Leukocytosis - Pneumonia - Liver cirrhosis - Obese - Anemia . Plan transfused 2 units previously down on IV fluid Hemodynamic support Pulmunary support Monitor renal parameters avoid nephrotoxics as best as possible per orders discussed with RN Subjective ROS Limited/Unobtainable: No Objective Objective Last 24 Hour Vital Signs Date Time Temp Pulse Resp B/P (MAP) Pulse Ox O2 Delivery O2 Flow Rate FiO2 10/18/18 12:00 Nasal Cannula 2.0 10/18/18 12:00 98.8 106 24 142/81 (101) 96 10/18/18 11:59 Nasal Cannula 10/18/18 11:57 Nasal Cannula 10/18/18 11:48 109 10/18/18 08:02 Nasal Cannula 3.0 10/18/18 08:00 96 Nasal Cannula 3.0 10/18/18 08:00 Nasal Cannula 2.0 10/18/18 08:00 98.8 108 24 159/82 (107) 96 10/18/18 07:55 Nasal Cannula 10/18/18 07:55 Nasal Cannula 10/18/18 07:27 93 10/18/18 04:00 98.8 112 23 150/69 (96) 94 10/18/18 04:00 Venturi Mask 10/18/18 03:32 113 10/18/18 03:24 110 20 99 Nasal Cannula 3.0 32 10/18/18 03:14 111 20 94 Nasal Cannula 3.0 32 10/18/18 00:00 Venturi Mask 10/18/18 00:00 98.9 116 24 138/70 (92) 94 10/17/18 23:28 112 20 98 Nasal Cannula 3.0 32 10/17/18 23:24 113 10/17/18 23:13 109 20 95 Nasal Cannula 3.0 32 10/17/18 20:00 98.5 110 24 148/61 (90) 95 10/17/18 20:00 110 10/17/18 20:00 Venturi Mask 10/17/18 19:54 109 20 99 Nasal Cannula 3.0 32 10/17/18 19:44 108 20 95 Nasal Cannula 3.0 32 10/17/18 19:43 Nasal Cannula 3.0 32 10/17/18 19:43 95 Nasal Cannula 3.0 32 10/17/18 16:17 102 20 96 Nasal Cannula 2.0 10/17/18 16:04 105 20 96 Nasal Cannula 2.0 28 10/17/18 16:00 Venturi Mask 10/17/18 16:00 104 10/17/18 16:00 98.8 104 22 157/69 (98) 98 Intake and Output 10/17/18 10/18/18 19:00 07:00 Intake Total 500 ml 629.707 ml Output Total 610 ml 400 ml Balance -110 ml 229.707 ml IV Total 500 ml 629.707 ml Output Urine Total 610 ml 400 ml Laboratory Tests 10/18/18 04:00: White Blood Count 15.9H, Red Blood Count 2.73L, Hemoglobin 8.4#L, Hematocrit 26.0#L, Mean Corpuscular Volume 95, Mean Corpuscular Hemoglobin 30.6, Mean Corpuscular Hemoglobin Concent 32.2, Red Cell Distribution Width 18.8H, Platelet Count 50L, Mean Platelet Volume 5.4L, Neutrophils (%) (Auto) , Lymphocytes (%) (Auto) , Monocytes (%) (Auto) , Eosinophils (%) (Auto) , Basophils (%) (Auto) , Differential Total Cells Counted 100, Neutrophils % ( Manual) 86H, Lymphocytes % (Manual) 9L, Monocytes % (Manual) 3, Eosinophils % ( Manual) 2, Basophils % (Manual) 0, Band Neutrophils 0, Platelet Estimate DecreasedL, Platelet Morphology Normal, Polychromasia 1+, Hypochromasia 1+, Anisocytosis 1+, Sodium Level 152H, Potassium Level 3.3L, Chloride Level 120H, Carbon Dioxide Level 21, Anion Gap 11, Blood Urea Nitrogen 36H, Creatinine 1.9H , Estimat Glomerular Filtration Rate 27.2, Glucose Level 147H, Calcium Level 9.7 , Total Bilirubin 5.6H, Direct Bilirubin 4.0H, Aspartate Amino Transf (AST/SGOT ) 75H, Alanine Aminotransferase (ALT/SGPT) 441H, Alkaline Phosphatase 465H, Total Protein 5.3L, Albumin 2.5L, Globulin 2.8, Albumin/Globulin Ratio 0.9L, Anti-Nuclear Antibody Screen [Pending], F-Actin IgG Antibody [Pending] Height (Feet): 5 Height (Inches): 1.00 Weight (Pounds): 251 General Appearance: lethargic Cardiovascular: tachycardia Respiratory/Chest: decreased breath sounds Abdomen: distended Objective NO CHANGE Alex Cueto MD Oct 18, 2018 14:47
--- NOTE | 2018-10-18 15:18 | NUR ---
ST NOTE: MODIFIED BARIUM SWALLOW STUDY COMPLETED MODIFIED BARIUM SWALLOW STUDY FULL REPORT WILL FOLLOW UNDER ST NOTE IN CARE ACTIVITY PT ALERT, COOPERATIVE, FOLLOWS SIMPLE DIRECTIONS, PT WITH NC(2L), HEART RATE: 106-110, OXYGEN LEVEL:95-96. YOSELYN PIERCE, PRESENTED GIVEN PO TRIALS: THIN(TSPX2/MED CUP/STRAW-SEQUENTIAL), NECTAR THICK(TSP/MED CUP/STRAW-2 SIPS), HONEY THICK(TSP), PT REFUSED FURTHER PO TRIALS. IMPRESSION: PT PRESENTS WITH MODERATELY SEVERE OROPHARYNGEAL DYSPHAGIA CHARACTERIZED BY INCREASED ORAL TRANSIT TIME WITH DISORGANIZED TONGUE MOTION AND OROPHARYNGEAL TRANSIT TIME; ORAL RESIDUE DUE TO SENSORIMOTOR DEFICITS. TRACE LARYNGEAL PENETRATION(LP) WITH THIN LIQUIDS DURING THE SWALLOW(EJECTED) DUE TO DELAYED SWALLOW, REDUCED LARYNGEAL ELEVATION AND REDUCED LARYNGEAL VESTIBULE CLOSURE. REDUCED EPIGLOTTIC INVERSION AND BASE OF TONGUE RETRACTION RESULTING IN MILD TO MODERATE TONGUE BASE AND VALLECULAR RESIDUE. MILD TO MODERATE PYRIFORM SINUSES RESIDUE AFTER THE SWALLOW DUE TO REDUCED LARYNGEAL ELEVATION. NO SIGNIFICANT ASPIRATION WAS NOTED BUT HAS HIGH RISK DUE TO OVERALL PHARYNGEAL WEAKNESS(REDUCED LARYNGEAL ELEVATION, PHARYNGEAL SENSATION), AND RESPIRATORY STATUS(INCREASED SHORTNESS OF BREATH). PT BENEFITS FROM BREATH HOLD WITH EFFORTFUL SWALLOW, SWALLOW X 2 TO 3 TIMES, ALLOW TIME, CHIN DOWN AND ? HEAD TURN TO L SIDE. RECOMMENDATIONS: 1. DUE TO PT'S OVERALL WEAKNESS AND RESP INSUFFICIENCY, PT IS NOT READY FOR ORAL INTAKE AT THIS TIME. RECOMMENDED TEMPORARILY NONORAL FEEDING MEANS(NGT) TO MEET NUTRITION AND HYDRATION NEEDS. 2. ORAL CARE 3. SWALLOW TX AND MANAGEMENT TO RE-ASSESS PT'S SWALLOWING FUNCTION AND READINESS. D/W PT'S , YOSELYN PIERCE. INFORMED , DR. THAO AND ANTON Martinez
[2018-10-18 16:00] VITALS: BP 141/72
--- NOTE | 2018-10-18 16:53 | General Progress Note ---
Assessment/Plan Assessment/Plan Assessment and Recs: # Leukocytosis/Elevated white blood cell count, unspecified likely related to underlying stress reaction, or underlying infection --> have reviewed peripheral smear and bandemia/neutrophilia noted --> continue antibiotics if they have been started by ID team (on zosyn at this time) --> monitor for resolution # Thrombocytopenia - potential causes multifactorial, evaluate liver and viral etiologies to begin, also could be related to underlying medications patient has received. Hx of cirrhosis in the past noted on us --> Hep panel and HIV negative --> CT a/p show cirrhosis as well as us --> Peripheral smear ordered to evaluate for blasts /schistocytes is negative --> abx and other meds have been reviewed --> ok for ppx if plt >50k w/ either heparin or lovenox --> Transfuse if Plt < 20k and fever, or if Plt < 10k without fever --> HIT negative, hold off heparin # Anemia of iron deficiency as noted with low % sat and tibc elevated --> Anemia workup has been reviewed --> No evidence of hemolysis is noted, peripheral smear has been reviewed. --> Hgb goal >7. Transfuse prn. --> Iron IV X 5 days already given --> Medications have been reviewed # CEA of 10.5 --> Ct of abdomen/pelvis reviewed and is negative # Sepsis likely contributing to low plts --> on abx as needed # Shock, hypovolemic and distributive --> per id and pulm/cc care # Multisystem organ failure. # Lactic acidosis. # JONNATHAN. # Abnormal LFTs, likely shock liver. # Abnormal troponin, likely demand ischemia. # Obesity. # Respiratory failure on vent --> now extubated The timing of this note does not necessarily reflect the time of the patient was seen. Greatly appreciate consultation! Subjective Constitutional: Denies: no symptoms, chills, diaphoresis, fever, malaise, weakness, other HEENT: Denies: no symptoms, eye pain, blurred vision, tearing, double vision, ear pain, ear discharge, nose pain, nose congestion, throat pain, throat swelling, mouth pain, mouth swelling, other Cardiovascular: Denies: no symptoms, chest pain, edema, irregular heart rate, lightheadedness, palpitations, syncope, other Respiratory: Denies: no symptoms, cough, orthopnea, shortness of breath, SOB with excertion, SOB at rest, sputum, stridor, wheezing, other Gastrointestinal/Abdominal: Denies: no symptoms, abdomen distended, abdominal pain, black stools, tarry stools, blood in stool, constipated, diarrhea, difficulty swallowing, nausea, poor appetite, poor fluid intake, rectal bleeding , vomiting, other Genitourinary: Denies: no symptoms, burning, discharge, frequency, flank pain, hematuria, incontinence, pain, urgency, other Neurologic/Psychiatric: Denies: no symptoms, anxiety, depressed, emotional problems, headache, numbness, paresthesia, pre-existing deficit, seizure, tingling, tremors, weakness, other Endocrine: Denies: no symptoms, excessive sweating, flushing, intolerance to cold, intolerance to heat, increased hunger, increased thirst, increased urine, unexplained weight gain, unexplained weight loss, other Hematologic/Lymphatic: Denies: no symptoms, anemia, easy bleeding, easy bruising, other Allergies: Coded Allergies: No Known Allergies (Unverified , 05/06/18) Subjective 3: Pt was seen in ICU on Vent and off pressors, developed atrial fib, wbc trending down to 13, plt trending down to 60 3: remains in the icu, monitoring labs, plts stabilizing, remains critically ill, cea elev 3: In ICU on Vent and off pressors, plt 62, no events 10/16 wbc trending up at 14,plt low at 48,weaning well from vent. no acute events , family at bedside 10/17: plts remain low, no events, weaned off vent, no complaints, off pressors 10/18: seen by bedside, wbc trending up at 15, plt low at 50, no events, needs video swallow. NGT Objective Last 24 Hour Vital Signs Date Time Temp Pulse Resp B/P (MAP) Pulse Ox O2 Delivery O2 Flow Rate FiO2 10/18/18 16:00 Nasal Cannula 2.0 10/18/18 15:28 Nasal Cannula 10/18/18 15:28 Nasal Cannula 10/18/18 12:00 Nasal Cannula 2.0 10/18/18 12:00 98.8 106 24 142/81 (101) 96 10/18/18 11:59 Nasal Cannula 10/18/18 11:57 Nasal Cannula 10/18/18 11:48 109 10/18/18 08:02 Nasal Cannula 3.0 10/18/18 08:00 96 Nasal Cannula 3.0 10/18/18 08:00 Nasal Cannula 2.0 10/18/18 08:00 98.8 108 24 159/82 (107) 96 10/18/18 07:55 Nasal Cannula 10/18/18 07:55 Nasal Cannula 10/18/18 07:27 93 10/18/18 04:00 98.8 112 23 150/69 (96) 94 10/18/18 04:00 Venturi Mask 10/18/18 03:32 113 10/18/18 03:24 110 20 99 Nasal Cannula 3.0 32 10/18/18 03:14 111 20 94 Nasal Cannula 3.0 32 10/18/18 00:00 Venturi Mask 10/18/18 00:00 98.9 116 24 138/70 (92) 94 10/17/18 23:28 112 20 98 Nasal Cannula 3.0 32 10/17/18 23:24 113 10/17/18 23:13 109 20 95 Nasal Cannula 3.0 32 10/17/18 20:00 98.5 110 24 148/61 (90) 95 10/17/18 20:00 110 10/17/18 20:00 Venturi Mask 10/17/18 19:54 109 20 99 Nasal Cannula 3.0 32 10/17/18 19:44 108 20 95 Nasal Cannula 3.0 32 10/17/18 19:43 Nasal Cannula 3.0 32 10/17/18 19:43 95 Nasal Cannula 3.0 32 Intake and Output 10/17/18 10/18/18 19:00 07:00 Intake Total 500 ml 629.707 ml Output Total 610 ml 400 ml Balance -110 ml 229.707 ml IV Total 500 ml 629.707 ml Output Urine Total 610 ml 400 ml Laboratory Tests 10/18/18 04:00: White Blood Count 15.9H, Red Blood Count 2.73L, Hemoglobin 8.4#L, Hematocrit 26.0#L, Mean Corpuscular Volume 95, Mean Corpuscular Hemoglobin 30.6, Mean Corpuscular Hemoglobin Concent 32.2, Red Cell Distribution Width 18.8H, Platelet Count 50L, Mean Platelet Volume 5.4L, Neutrophils (%) (Auto) , Lymphocytes (%) (Auto) , Monocytes (%) (Auto) , Eosinophils (%) (Auto) , Basophils (%) (Auto) , Differential Total Cells Counted 100, Neutrophils % ( Manual) 86H, Lymphocytes % (Manual) 9L, Monocytes % (Manual) 3, Eosinophils % ( Manual) 2, Basophils % (Manual) 0, Band Neutrophils 0, Platelet Estimate DecreasedL, Platelet Morphology Normal, Polychromasia 1+, Hypochromasia 1+, Anisocytosis 1+, Sodium Level 152H, Potassium Level 3.3L, Chloride Level 120H, Carbon Dioxide Level 21, Anion Gap 11, Blood Urea Nitrogen 36H, Creatinine 1.9H , Estimat Glomerular Filtration Rate 27.2, Glucose Level 147H, Calcium Level 9.7 , Total Bilirubin 5.6H, Direct Bilirubin 4.0H, Aspartate Amino Transf (AST/SGOT ) 75H, Alanine Aminotransferase (ALT/SGPT) 441H, Alkaline Phosphatase 465H, Total Protein 5.3L, Albumin 2.5L, Globulin 2.8, Albumin/Globulin Ratio 0.9L, Anti-Nuclear Antibody Screen [Pending], F-Actin IgG Antibody [Pending] Height (Feet): 5 Height (Inches): 1.00 Weight (Pounds): 251 Objective PHYSICAL EXAMINATION: VITAL SIGNS: reviewed, saturating 98% on nc GENERAL: She is an obese female, confused. HEENT: Normocephalic and atraumatic. Oropharynx is clear with dry mucous membranes. NECK: Supple without lymphadenopathy or JVP. CHEST: Clear. HEART: Regular. ABDOMEN: Benign. EXTREMITIES: No cyanosis, clubbing, or edema. There are some ecchymoses in bilateral lower extremities. Kurtis Villagomez MD Oct 18, 2018 16:53
--- NOTE | 2018-10-18 17:00 | NUR ---
NURSE NOTES: Received an order to insert NG tube by Landen Serna ([employer]ER). Charge nurse was able to insert 12F NG tube. Will obtain chest x-ray for placement.
--- NOTE | 2018-10-18 17:50 | Cardiac Electrophysiology PN ---
Assessment/Plan Assessment/Plan 1. Atrial fib with RVR. Off Beta janet or CA janet for hypotension. On Dig 0.125 qod and amiodarone 200 daily. In SR 2. S/P Septic shock. On broad spectrum IV antibiotic. 3. Troponin leak. The levels are flat and likely due to this patient's sepsis and septic shock. Her echocardiogram showed ejection fraction 60% to 65% and EKG showed no acute ischemic changes. 4. S/P Respiratory failure, Extubated 5. Diabetes. 6. Renal failure. 7. Morbid obesity. 8. Failed Swallow eval. NG tube in DW RN Subjective Subjective Failed Video swallow. Getting NG by RN.No CP or SOB Objective Last 24 Hour Vital Signs Date Time Temp Pulse Resp B/P (MAP) Pulse Ox O2 Delivery O2 Flow Rate FiO2 10/18/18 16:00 Nasal Cannula 2.0 10/18/18 15:28 Nasal Cannula 10/18/18 15:28 Nasal Cannula 10/18/18 12:00 Nasal Cannula 2.0 10/18/18 12:00 98.8 106 24 142/81 (101) 96 10/18/18 11:59 Nasal Cannula 10/18/18 11:57 Nasal Cannula 10/18/18 11:48 109 10/18/18 08:02 Nasal Cannula 3.0 10/18/18 08:00 96 Nasal Cannula 3.0 10/18/18 08:00 Nasal Cannula 2.0 10/18/18 08:00 98.8 108 24 159/82 (107) 96 10/18/18 07:55 Nasal Cannula 10/18/18 07:55 Nasal Cannula 10/18/18 07:27 93 10/18/18 04:00 98.8 112 23 150/69 (96) 94 10/18/18 04:00 Venturi Mask 10/18/18 03:32 113 10/18/18 03:24 110 20 99 Nasal Cannula 3.0 32 10/18/18 03:14 111 20 94 Nasal Cannula 3.0 32 10/18/18 00:00 Venturi Mask 10/18/18 00:00 98.9 116 24 138/70 (92) 94 10/17/18 23:28 112 20 98 Nasal Cannula 3.0 32 10/17/18 23:24 113 10/17/18 23:13 109 20 95 Nasal Cannula 3.0 32 10/17/18 20:00 98.5 110 24 148/61 (90) 95 10/17/18 20:00 110 10/17/18 20:00 Venturi Mask 10/17/18 19:54 109 20 99 Nasal Cannula 3.0 32 10/17/18 19:44 108 20 95 Nasal Cannula 3.0 32 10/17/18 19:43 Nasal Cannula 3.0 32 10/17/18 19:43 95 Nasal Cannula 3.0 32 Intake and Output 10/17/18 10/18/18 19:00 07:00 Intake Total 500 ml 629.707 ml Output Total 610 ml 400 ml Balance -110 ml 229.707 ml IV Total 500 ml 629.707 ml Output Urine Total 610 ml 400 ml Laboratory Tests Test 10/18/18 04:00 White Blood Count 15.9 K/UL (4.8-10.8) H Red Blood Count 2.73 M/UL (4.20-5.40) L Hemoglobin 8.4 G/DL (12.0-16.0) #L Hematocrit 26.0 % (37.0-47.0) #L Mean Corpuscular Volume 95 FL (80-99) Mean Corpuscular Hemoglobin 30.6 PG (27.0-31.0) Mean Corpuscular Hemoglobin Concent 32.2 G/DL (32.0-36.0) Red Cell Distribution Width 18.8 % (11.6-14.8) H Platelet Count 50 K/UL (150-450) L Mean Platelet Volume 5.4 FL (6.5-10.1) L Neutrophils (%) (Auto) % (45.0-75.0) Lymphocytes (%) (Auto) % (20.0-45.0) Monocytes (%) (Auto) % (1.0-10.0) Eosinophils (%) (Auto) % (0.0-3.0) Basophils (%) (Auto) % (0.0-2.0) Differential Total Cells Counted 100 Neutrophils % (Manual) 86 % (45-75) H Lymphocytes % (Manual) 9 % (20-45) L Monocytes % (Manual) 3 % (1-10) Eosinophils % (Manual) 2 % (0-3) Basophils % (Manual) 0 % (0-2) Band Neutrophils 0 % (0-8) Platelet Estimate Decreased L Platelet Morphology Normal Polychromasia 1+ Hypochromasia 1+ Anisocytosis 1+ Sodium Level 152 MMOL/L (136-145) H Potassium Level 3.3 MMOL/L (3.5-5.1) L Chloride Level 120 MMOL/L (98-107) H Carbon Dioxide Level 21 MMOL/L (21-32) Anion Gap 11 mmol/L (5-15) Blood Urea Nitrogen 36 mg/dL (7-18) H Creatinine 1.9 MG/DL (0.55-1.30) H Estimat Glomerular Filtration Rate 27.2 mL/min (>60) Glucose Level 147 MG/DL (74-106) H Calcium Level 9.7 MG/DL (8.5-10.1) Total Bilirubin 5.6 MG/DL (0.2-1.0) H Direct Bilirubin 4.0 MG/DL (0.0-0.3) H Aspartate Amino Transf (AST/SGOT) 75 U/L (15-37) H Alanine Aminotransferase (ALT/SGPT) 441 U/L (12-78) H Alkaline Phosphatase 465 U/L (46-116) H Total Protein 5.3 G/DL (6.4-8.2) L Albumin 2.5 G/DL (3.4-5.0) L Globulin 2.8 g/dL Albumin/Globulin Ratio 0.9 (1.0-2.7) L Anti-Nuclear Antibody Screen Pending F-Actin IgG Antibody Pending Objective HEAD AND NECK: no Jvd LUNGS: Coarse rhonchi. CARDIOVASCULAR: Regular S1, S2 with no gallop or murmur. ABDOMEN: Obese. EXTREMITIES: No pitting edema. Sean Montanez MD Oct 18, 2018 17:50
--- NOTE | 2018-10-18 18:00 | NUR ---
NURSE NOTES: Chest xray was taken for placement of NG tube. Called radiology for results, but did not answer.
--- NOTE | 2018-10-18 18:30 | NUR ---
NURSE NOTES: Informed Landen Serna ([employer]) that NG tube was placed and still waiting on the chest xray for placement results. Charge nurse aware. Will endorse to PM nurse.
--- NOTE | 2018-10-18 19:15 | NUR ---
HAND-OFF: Report given to KARI Rosa. Patient stable. Aware that chest xray for NG tube placement is still pending.
--- NOTE | 2018-10-18 19:16 | NUR ---
NURSE NOTES: Report received from Sophia Anderson RN. Pt A/Ox3. case monitor shows ST. Pt currently on 2L NC. Order for suctioning PRN. Pt tachypnic, but states that is normal state even at home. Congestion and rattling head throughout both lungs. RT called for suctioning. Pt currently has an NGT in place, awaiting KUB results for use. A rectal tube in place and draining appropriately. Accuchecks are needed ACHS. Pt has a LISA PICC with D5W running at 150 ml/hr. Pt edematous throughout body. Bed in lowest position, bed alarms placed. Call light within reach. Will continue to monitor and with patients plan of care.
[2018-10-18 20:00] VITALS: BP 135/82
--- NOTE | 2018-10-18 20:30 | NUR ---
NURSE NOTES: Pt pulled out NGT. NGT reinserted by another nurse. KUB ordered STAT.
--- NOTE | 2018-10-18 21:10 | NUR ---
NURSE NOTES: Restraints placed on BUE for pulling of lines. Skin intact. Swelling noted before hand on both upper extremities. Awaiting radiology for KUB. Will continue to monitor and with patients plan of care
[2018-10-18] MEDS: Dyna-Hex 2% Top Sol 2oz TOPIC SCH (21:18)
--- NOTE | 2018-10-18 21:25 | NUR ---
NURSE NOTES: Large amount of gastric secretions noted. Secretions draining by gravity at the moment. Awaiting results of KUB. Will continue to monitor.
--- NOTE | 2018-10-18 22:04 | General Progress Note ---
Assessment/Plan Problem List: (1) Hypotension ICD Codes: I95.9 - Hypotension, unspecified SNOMED: 87135016 (2) Hyperglycemia ICD Codes: R73.9 - Hyperglycemia, unspecified SNOMED: 23932119 (3) Dyspnea ICD Codes: R06.00 - Dyspnea, unspecified SNOMED: 880165813 (4) Hypoxemia ICD Codes: R09.02 - Hypoxemia SNOMED: 203792874 (5) Contusion of left knee ICD Codes: S80.02XA - Contusion of left knee, initial encounter SNOMED: 25778804 (6) Sepsis ICD Codes: A41.9 - Sepsis, unspecified organism SNOMED: 63209676 (7) Septic shock ICD Codes: A41.9 - Sepsis, unspecified organism; R65.21 - Severe sepsis with septic shock SNOMED: 73890523 (8) Liver cirrhosis ICD Codes: K74.60 - Unspecified cirrhosis of liver SNOMED: 94097072 (9) Pneumonia ICD Codes: J18.9 - Pneumonia, unspecified organism SNOMED: 157761455 (10) Respiratory disorder with ventilator dependence ICD Codes: J98.9 - Respiratory disorder, unspecified; Z99.11 - Dependence on respirator [ventilator] status SNOMED: 80752005, 288838717 (11) Shock liver ICD Codes: K72.00 - Acute and subacute hepatic failure without coma SNOMED: 371584552 Status: progressing Assessment/Plan extubated congested resp insuff shock liver is improving edema niddm labile sugar due to sepsis needs pulmonary toilet cihrrosis sepsis obesity morbid pna el Subjective ROS Limited/Unobtainable: Yes Allergies: Coded Allergies: No Known Allergies (Unverified , 05/06/18) Objective Last 24 Hour Vital Signs Date Time Temp Pulse Resp B/P (MAP) Pulse Ox O2 Delivery O2 Flow Rate FiO2 10/18/18 20:08 Nasal Cannula 3.0 10/18/18 20:08 95 Nasal Cannula 3.0 10/18/18 19:59 Nasal Cannula 10/18/18 19:59 Nasal Cannula 10/18/18 17:00 Nasal Cannula 2.0 10/18/18 16:00 98.3 106 26 141/72 (95) 96 10/18/18 16:00 Nasal Cannula 2.0 10/18/18 15:28 Nasal Cannula 10/18/18 15:28 Nasal Cannula 10/18/18 15:22 109 10/18/18 12:00 Nasal Cannula 2.0 10/18/18 12:00 98.8 106 24 142/81 (101) 96 10/18/18 11:59 Nasal Cannula 10/18/18 11:57 Nasal Cannula 10/18/18 11:48 109 10/18/18 08:02 Nasal Cannula 3.0 10/18/18 08:00 96 Nasal Cannula 3.0 10/18/18 08:00 Nasal Cannula 2.0 10/18/18 08:00 98.8 108 24 159/82 (107) 96 10/18/18 07:55 Nasal Cannula 10/18/18 07:55 Nasal Cannula 10/18/18 07:27 93 10/18/18 04:00 98.8 112 23 150/69 (96) 94 10/18/18 04:00 Venturi Mask 10/18/18 03:32 113 10/18/18 03:24 110 20 99 Nasal Cannula 3.0 32 10/18/18 03:14 111 20 94 Nasal Cannula 3.0 32 10/18/18 00:00 Venturi Mask 10/18/18 00:00 98.9 116 24 138/70 (92) 94 10/17/18 23:28 112 20 98 Nasal Cannula 3.0 32 10/17/18 23:24 113 10/17/18 23:13 109 20 95 Nasal Cannula 3.0 32 Intake and Output 10/17/18 10/18/18 18:59 06:59 Intake Total 527.5 ml 702.207 ml Output Total 665 ml 400 ml Balance -137.5 ml 302.207 ml IV Total 527.5 ml 702.207 ml Output Urine Total 665 ml 400 ml Laboratory Tests 10/18/18 04:00: White Blood Count 15.9H, Red Blood Count 2.73L, Hemoglobin 8.4#L, Hematocrit 26.0#L, Mean Corpuscular Volume 95, Mean Corpuscular Hemoglobin 30.6, Mean Corpuscular Hemoglobin Concent 32.2, Red Cell Distribution Width 18.8H, Platelet Count 50L, Mean Platelet Volume 5.4L, Neutrophils (%) (Auto) , Lymphocytes (%) (Auto) , Monocytes (%) (Auto) , Eosinophils (%) (Auto) , Basophils (%) (Auto) , Differential Total Cells Counted 100, Neutrophils % ( Manual) 86H, Lymphocytes % (Manual) 9L, Monocytes % (Manual) 3, Eosinophils % ( Manual) 2, Basophils % (Manual) 0, Band Neutrophils 0, Platelet Estimate DecreasedL, Platelet Morphology Normal, Polychromasia 1+, Hypochromasia 1+, Anisocytosis 1+, Sodium Level 152H, Potassium Level 3.3L, Chloride Level 120H, Carbon Dioxide Level 21, Anion Gap 11, Blood Urea Nitrogen 36H, Creatinine 1.9H , Estimat Glomerular Filtration Rate 27.2, Glucose Level 147H, Calcium Level 9.7 , Total Bilirubin 5.6H, Direct Bilirubin 4.0H, Aspartate Amino Transf (AST/SGOT ) 75H, Alanine Aminotransferase (ALT/SGPT) 441H, Alkaline Phosphatase 465H, Total Protein 5.3L, Albumin 2.5L, Globulin 2.8, Albumin/Globulin Ratio 0.9L, Anti-Nuclear Antibody Screen [Pending], Anti-Mitochondrial Antibody [Pending], F -Actin IgG Antibody [Pending] 10/18/18 16:00: Stool Occult Blood [Pending] Height (Feet): 5 Height (Inches): 1.00 Weight (Pounds): 251 General Appearance: confused Respiratory/Chest: lungs clear Abdomen: soft Michael Kelley MD Oct 18, 2018 22:04
--- NOTE | 2018-10-18 22:46 | NUR ---
NURSE NOTES: KUB results showed NG tube in place. Large amount of gastic secretions draining. Advised per Dr. Schuster to hold any feedings for now.
--- NOTE | 2018-10-18 22:55 | NUR ---
NURSE NOTES: Order to drain NGT by gravity until AM per Landen.
[2018-10-19] VITALS: BP 144/74
[2018-10-19] MEDS: Albuterol/Ipratropium 3ml neb HHN SCH ×6 (03:39→23:50)
[2018-10-19 04:00] VITALS: BP 159/84
[2018-10-19 04:53] LABS: HEMATOCRIT 27.1 % (37.0-47.0); HEMOGLOBIN 8.8 G/DL (12.0-16.0); MEAN CORPUSCULAR VOLUME 95 FL (80-99); PLATELET COUNT 54 K/UL (150-450); RED BLOOD COUNT 2.86 M/UL (4.20-5.40); RED CELL DISTRIBUTION WIDTH 19.6 % (11.6-14.8); WHITE BLOOD COUNT 15.4 K/UL (4.8-10.8)
[2018-10-19 05:16] LABS: ALANINE AMINOTRANSFERASE 350 U/L (12-78); ALBUMIN 2.3 G/DL (3.4-5.0); ALBUMIN/GLOBULIN RATIO 0.8 (1.0-2.7); ALKALINE PHOSPHATASE 463 U/L (46-116); ANION GAP 9 mmol/L (5-15); ASPARTATE AMINO TRANSFERASE 75 U/L (15-37); BILIRUBIN,TOTAL 5.8 MG/DL (0.2-1.0); BLOOD UREA NITROGEN 28 mg/dL (7-18); CALCIUM 9.4 MG/DL (8.5-10.1); CARBON DIOXIDE 23 MMOL/L (21-32); CHLORIDE 118 MMOL/L (98-107); CREATININE 1.6 MG/DL (0.55-1.30); POTASSIUM 3.4 MMOL/L (3.5-5.1); SODIUM 150 MMOL/L (136-145)
[2018-10-19] MEDS: Metoclopramide 10mg/2ml Inj IVP SCH ×3 (05:51→18:39)
[2018-10-19] MEDS: NovoLOG Insulin Flexpen SUBQ SCH ×4 (05:52→21:34)
[2018-10-19 08:00] VITALS: BP 161/78
[2018-10-19] MEDS ORDERED: Digoxin 0.125mg tab NG SCH (09:00)
[2018-10-19] MEDS: Lactulose 20gm/30ml UDC NG SCH ×3 (09:30→18:39)
[2018-10-19] MEDS: Pantoprazole Inj IVP SCH ×2 (09:30→21:00)
[2018-10-19] MEDS: Digoxin 0.125mg tab NG SCH (09:31)
[2018-10-19] MEDS: Amiodarone 200mg tab NG SCH (09:31)
--- NOTE | 2018-10-19 10:16 | Infectious Diseases Prog Note ---
Assessment/Plan Assessment/Plan A: 1. Septic Shock resolved.culture are negative so far 2. aspiration pneumonia. 3. acute renal failure improving 4. Diabetes mellitus. 5. Obesity. 6. Lactic acidosis. 7. Anemia.s/p transfusion 8. Cirrhosis. 9. Enteritis, ileus resolved 10. Leukocytosis 11. GI bleeding RECOMMENDATION: repeat CXR Observe off antibiotic Subjective ROS Limited/Unobtainable: Yes Gastrointestinal/Abdominal: Reports: other - NG tube replaced Neurologic: Reports: confusion, other - on restraint Allergies: Coded Allergies: No Known Allergies (Unverified , 05/06/18) Objective Vital Signs Last 24 Hour Vital Signs Date Time Temp Pulse Resp B/P (MAP) Pulse Ox O2 Delivery O2 Flow Rate FiO2 10/19/18 09:31 110 10/19/18 08:00 Nasal Cannula 2.0 10/19/18 08:00 98.7 106 24 161/78 (105) 95 10/19/18 07:24 100 22 100 Nasal Cannula 3.0 32 10/19/18 07:12 98 20 98 Nasal Cannula 3.0 32 10/19/18 07:11 98 Nasal Cannula 3.0 32 10/19/18 07:11 Nasal Cannula 3.0 10/19/18 04:00 104 10/19/18 04:00 98.7 105 24 159/84 (109) 95 10/19/18 04:00 Nasal Cannula 2.0 10/19/18 03:48 106 22 97 Nasal Cannula 2.0 28 10/19/18 03:38 104 20 98 Nasal Cannula 4.0 36 10/19/18 00:00 98.8 107 32 144/74 (97) 95 10/19/18 00:00 Nasal Cannula 2.0 10/19/18 00:00 108 10/18/18 23:59 108 22 97 Nasal Cannula 4.0 36 10/18/18 23:50 105 22 96 Nasal Cannula 4.0 36 10/18/18 20:08 Nasal Cannula 3.0 10/18/18 20:08 95 Nasal Cannula 3.0 10/18/18 20:00 99.0 102 32 135/82 (99) 96 10/18/18 20:00 Nasal Cannula 2.0 10/18/18 20:00 103 10/18/18 19:59 Nasal Cannula 10/18/18 19:59 Nasal Cannula 10/18/18 17:00 Nasal Cannula 2.0 10/18/18 16:00 98.3 106 26 141/72 (95) 96 10/18/18 16:00 Nasal Cannula 2.0 10/18/18 15:28 Nasal Cannula 10/18/18 15:28 Nasal Cannula 10/18/18 15:22 109 10/18/18 12:00 Nasal Cannula 2.0 10/18/18 12:00 98.8 106 24 142/81 (101) 96 10/18/18 11:59 Nasal Cannula 10/18/18 11:57 Nasal Cannula 10/18/18 11:48 109 Height (Feet): 5 Height (Inches): 1.00 Weight (Pounds): 251 HEENT: mucous membranes moist, other - labil bleeding lesions Respiratory/Chest: other - coarse sounds Cardiovascular: tachycardia, other - PICC line Abdomen: soft, non tender, other - NG in place Extremities: other - generalized edema Neurologic/Psychiatric: other - drowsy Laboratory Tests Test 10/18/18 16:00 10/19/18 04:15 Stool Occult Blood Positive (NEGATIVE) White Blood Count 15.4 K/UL (4.8-10.8) H Red Blood Count 2.86 M/UL (4.20-5.40) L Hemoglobin 8.8 G/DL (12.0-16.0) L Hematocrit 27.1 % (37.0-47.0) L Mean Corpuscular Volume 95 FL (80-99) Mean Corpuscular Hemoglobin 30.7 PG (27.0-31.0) Mean Corpuscular Hemoglobin Concent 32.4 G/DL (32.0-36.0) Red Cell Distribution Width 19.6 % (11.6-14.8) H Platelet Count 54 K/UL (150-450) L Mean Platelet Volume 5.9 FL (6.5-10.1) L Neutrophils (%) (Auto) % (45.0-75.0) Lymphocytes (%) (Auto) % (20.0-45.0) Monocytes (%) (Auto) % (1.0-10.0) Eosinophils (%) (Auto) % (0.0-3.0) Basophils (%) (Auto) % (0.0-2.0) Differential Total Cells Counted 100 Neutrophils % (Manual) 81 % (45-75) H Lymphocytes % (Manual) 9 % (20-45) L Monocytes % (Manual) 8 % (1-10) Eosinophils % (Manual) 0 % (0-3) Basophils % (Manual) 2 % (0-2) Band Neutrophils 0 % (0-8) Platelet Estimate Decreased L Platelet Morphology Normal Polychromasia 1+ Hypochromasia 1+ Anisocytosis 2+ Sodium Level 150 MMOL/L (136-145) H Potassium Level 3.4 MMOL/L (3.5-5.1) L Chloride Level 118 MMOL/L (98-107) H Carbon Dioxide Level 23 MMOL/L (21-32) Anion Gap 9 mmol/L (5-15) Blood Urea Nitrogen 28 mg/dL (7-18) H Creatinine 1.6 MG/DL (0.55-1.30) H Estimat Glomerular Filtration Rate 33.1 mL/min (>60) Glucose Level 220 MG/DL (74-106) H Calcium Level 9.4 MG/DL (8.5-10.1) Total Bilirubin 5.8 MG/DL (0.2-1.0) H Direct Bilirubin 4.0 MG/DL (0.0-0.3) H Aspartate Amino Transf (AST/SGOT) 75 U/L (15-37) H Alanine Aminotransferase (ALT/SGPT) 350 U/L (12-78) H Alkaline Phosphatase 463 U/L (46-116) H Total Protein 5.1 G/DL (6.4-8.2) L Albumin 2.3 G/DL (3.4-5.0) L Globulin 2.8 g/dL Albumin/Globulin Ratio 0.8 (1.0-2.7) L Current Medications Medications (Trade) Dose Ordered Sig/Patricia Route PRN Reason Start Time Stop Time Status Last Admin Dose Admin Acetaminophen (Tylenol) 650 mg Q4H PRN ORAL Mild Pain/Temp > 100.5 10/17/18 15:00 11/08/18 14:59 Albuterol/ Ipratropium (Albuterol/ Ipratropium) 3 ml Q4HRT HHN 10/17/18 15:00 10/22/18 10:59 10/19/18 07:17 Amiodarone HCl (Cordarone) 200 mg DAILY NG 3/7/19 09:00 11/12/18 20:59 10/19/18 09:31 Chlorhexidine Gluconate (Nguyen-Hex 2%) 1 applic DAILY@2000 TOPIC 10/17/18 20:00 11/09/18 19:59 10/18/18 21:18 Dextrose 1,000 ml @ 150 mls/hr Q6H40M IV 10/18/18 11:22 11/15/18 11:21 10/19/18 08:00 Dextrose (Dextrose 50%) 25 ml Q30M PRN IV Hypoglycemia 10/17/18 14:45 11/10/18 13:44 Dextrose (Dextrose 50%) 50 ml Q30M PRN IV Hypoglycemia 10/17/18 14:45 11/10/18 13:44 Digoxin (Lanoxin) 0.125 mg QOD NG 10/19/18 09:00 11/15/18 08:59 10/19/18 09:31 Diphenhydramine HCl (Benadryl) 25 mg Q6H PRN IVP Itching 10/17/18 14:30 11/08/18 14:29 Insulin Aspart (NovoLOG) BEFORE MEALS AND HS SUBQ 10/17/18 16:30 11/10/18 16:29 10/19/18 05:52 Lactulose (Cephulac) 30 gm THREE TIMES A DAY NG 10/17/18 18:00 11/12/18 17:59 10/19/18 09:30 Metoclopramide HCl (Reglan) 5 mg Q6H IVP 10/17/18 17:30 11/13/18 11:29 10/19/18 05:51 Midazolam HCl (Versed 2mg/2ml vial) 1 mg Q2H PRN IVP For Anxiety 10/17/18 14:30 11/11/18 14:29 Pantoprazole (Protonix) 40 mg EVERY 12 HOURS IVP 10/17/18 21:00 11/09/18 20:59 10/19/18 09:30 Rifaximin (Xifaxan) 550 mg EVERY 12 HOURS ORAL 10/17/18 21:00 10/26/18 20:59 10/19/18 09:36 Wesley Akers MD Oct 19, 2018 10:16
--- NOTE | 2018-10-19 10:30 | Diagnostic Imaging Report ---
Indication: Post nasogastric tube placement Technique: Supine view of the upper abdomen. Water-soluble contrast injected in a nasogastric tube Comparison: 10/12/2018 Findings: Interim placement of a nasogastric tube, tip projecting at the level of the gastric antrum. Contrast fills the stomach, duodenum, and proximal jejunum. A cholecystectomy clip is incidentally noted Impression: Satisfactory nasogastric intubation This agrees with the preliminary interpretation provided overnight by [facility] teleradiology service.
--- NOTE | 2018-10-19 10:49 | GI Progress Note ---
Assessment/Plan Problems: (1) Shock liver ICD Codes: K72.00 - Acute and subacute hepatic failure without coma SNOMED: 775862484 (2) Liver cirrhosis ICD Codes: K74.60 - Unspecified cirrhosis of liver SNOMED: 96915878 (3) Septic shock ICD Codes: A41.9 - Sepsis, unspecified organism; R65.21 - Severe sepsis with septic shock SNOMED: 16395053 (4) Sepsis ICD Codes: A41.9 - Sepsis, unspecified organism SNOMED: 14696883 (5) Respiratory disorder with ventilator dependence ICD Codes: J98.9 - Respiratory disorder, unspecified; Z99.11 - Dependence on respirator [ventilator] status SNOMED: 85750878, 428782278 (6) Normocytic anemia ICD Codes: D64.9 - Anemia, unspecified SNOMED: 033532226 Status: unchanged Status Narrative Discussed with Dr. Reynolds Assessment/Plan NGT inserted yesterday, noted with over 600 cc of gastric output. Maintain low intermittent suction. Maintain n.p.o. plus IV fluids ppi BID monitor H&H fu LFTS>> improving work up for elevated CEA when more stable lasix and albumin combination xifaxan and lactulose reglan atc fu speech eval today >> recommend video swallow study >> patient did not pass. fu JAD,SMA,AMA Follow labs The patient was seen and examined at bedside and all new and available data was reviewed in the patients chart. I agree with the above findings, impression and plan. (Patient seen earlier today. Signature stamp does not reflect patient encounter time.). - Samuel Reynolds MD Subjective Subjective limited Objective Last 24 Hour Vital Signs Date Time Temp Pulse Resp B/P (MAP) Pulse Ox O2 Delivery O2 Flow Rate FiO2 10/19/18 09:31 110 10/19/18 08:00 Nasal Cannula 2.0 10/19/18 08:00 98.7 106 24 161/78 (105) 95 10/19/18 07:24 100 22 100 Nasal Cannula 3.0 32 10/19/18 07:12 98 20 98 Nasal Cannula 3.0 32 10/19/18 07:11 98 Nasal Cannula 3.0 32 10/19/18 07:11 Nasal Cannula 3.0 10/19/18 04:00 104 10/19/18 04:00 98.7 105 24 159/84 (109) 95 10/19/18 04:00 Nasal Cannula 2.0 10/19/18 03:48 106 22 97 Nasal Cannula 2.0 28 10/19/18 03:38 104 20 98 Nasal Cannula 4.0 36 10/19/18 00:00 98.8 107 32 144/74 (97) 95 10/19/18 00:00 Nasal Cannula 2.0 10/19/18 00:00 108 10/18/18 23:59 108 22 97 Nasal Cannula 4.0 36 10/18/18 23:50 105 22 96 Nasal Cannula 4.0 36 10/18/18 20:08 Nasal Cannula 3.0 10/18/18 20:08 95 Nasal Cannula 3.0 10/18/18 20:00 99.0 102 32 135/82 (99) 96 10/18/18 20:00 Nasal Cannula 2.0 10/18/18 20:00 103 10/18/18 19:59 Nasal Cannula 10/18/18 19:59 Nasal Cannula 10/18/18 17:00 Nasal Cannula 2.0 10/18/18 16:00 98.3 106 26 141/72 (95) 96 10/18/18 16:00 Nasal Cannula 2.0 10/18/18 15:28 Nasal Cannula 10/18/18 15:28 Nasal Cannula 10/18/18 15:22 109 10/18/18 12:00 Nasal Cannula 2.0 10/18/18 12:00 98.8 106 24 142/81 (101) 96 10/18/18 11:59 Nasal Cannula 10/18/18 11:57 Nasal Cannula 10/18/18 11:48 109 Intake and Output 10/18/18 10/19/18 19:00 07:00 Intake Total 1206.96 ml 1050 ml Output Total 650 ml 1770 ml Balance 556.96 ml -720 ml IV Total 1206.96 ml 1050 ml Output Urine Total 650 ml 1000 ml Stool Total 150 ml Gastric Drainage Total 620 ml Laboratory Tests Test 10/18/18 16:00 10/19/18 04:15 Stool Occult Blood Positive (NEGATIVE) White Blood Count 15.4 K/UL (4.8-10.8) H Red Blood Count 2.86 M/UL (4.20-5.40) L Hemoglobin 8.8 G/DL (12.0-16.0) L Hematocrit 27.1 % (37.0-47.0) L Mean Corpuscular Volume 95 FL (80-99) Mean Corpuscular Hemoglobin 30.7 PG (27.0-31.0) Mean Corpuscular Hemoglobin Concent 32.4 G/DL (32.0-36.0) Red Cell Distribution Width 19.6 % (11.6-14.8) H Platelet Count 54 K/UL (150-450) L Mean Platelet Volume 5.9 FL (6.5-10.1) L Neutrophils (%) (Auto) % (45.0-75.0) Lymphocytes (%) (Auto) % (20.0-45.0) Monocytes (%) (Auto) % (1.0-10.0) Eosinophils (%) (Auto) % (0.0-3.0) Basophils (%) (Auto) % (0.0-2.0) Differential Total Cells Counted 100 Neutrophils % (Manual) 81 % (45-75) H Lymphocytes % (Manual) 9 % (20-45) L Monocytes % (Manual) 8 % (1-10) Eosinophils % (Manual) 0 % (0-3) Basophils % (Manual) 2 % (0-2) Band Neutrophils 0 % (0-8) Platelet Estimate Decreased L Platelet Morphology Normal Polychromasia 1+ Hypochromasia 1+ Anisocytosis 2+ Sodium Level 150 MMOL/L (136-145) H Potassium Level 3.4 MMOL/L (3.5-5.1) L Chloride Level 118 MMOL/L (98-107) H Carbon Dioxide Level 23 MMOL/L (21-32) Anion Gap 9 mmol/L (5-15) Blood Urea Nitrogen 28 mg/dL (7-18) H Creatinine 1.6 MG/DL (0.55-1.30) H Estimat Glomerular Filtration Rate 33.1 mL/min (>60) Glucose Level 220 MG/DL (74-106) H Calcium Level 9.4 MG/DL (8.5-10.1) Total Bilirubin 5.8 MG/DL (0.2-1.0) H Direct Bilirubin 4.0 MG/DL (0.0-0.3) H Aspartate Amino Transf (AST/SGOT) 75 U/L (15-37) H Alanine Aminotransferase (ALT/SGPT) 350 U/L (12-78) H Alkaline Phosphatase 463 U/L (46-116) H Total Protein 5.1 G/DL (6.4-8.2) L Albumin 2.3 G/DL (3.4-5.0) L Globulin 2.8 g/dL Albumin/Globulin Ratio 0.8 (1.0-2.7) L Height (Feet): 5 Height (Inches): 1.00 Weight (Pounds): 251 General Appearance: no apparent distress Cardiovascular: normal rate Respiratory/Chest: no respiratory distress Abdominal Exam: normal bowel sounds, non tender, soft, other - NGT present Extremities: non-tender Cole Serna NP Oct 19, 2018 10:49
--- NOTE | 2018-10-19 10:51 | NUR ---
RD ASSESSMENT & RECOMMENDATIONS SEE CARE ACTIVITY FOR COMPLETE ASSESSMENT DAILY ESTIMATED NEEDS: Needs based on Sepsis, obesity, DM 24-28, 64kg adj kcals/kg [id number] total kcals 1.2-2, 64kg adj g protein/kg 77-128 g total protein Fluid per MD NUTRITION DIAGNOSIS: 1) Swallowing difficulty r/t respiratory status as evidenced by pt is now extubated, off pressors, RIG SUPERINTENDENT w/ rec to continue NPO, nonoral feedings held at this time for gastric secretions. (UPDATED) 2) Altered nutrition related lab values r/t critical care. septic shock and multi organ failure as evidenced by critically elev WBC-> now wnl, elev creat kinase (3542), elev LFT's, elev T bili (4.3 trend up) elev phos (5.2 -> wnl), elev Creat (2.2 trend down), elev ammonia (62->57), elev BNP (6076->658), elev A1C (11.0), elev BGs (205 179). PO DIET RECOMMENDATIONS: WHEN SAFE FOR PO-> CCHO LOW, CARDIAC/ texture per RIG SUPERINTENDENT ENTERAL NUTRITION RECOMMENDATIONS: Glucerna 1.2 @ 55ml/hr x 24 hrs to provide 1320ml, 1584kcal, 79g prot, 1063ml free water * As medically able, resume TF's w/ GI access, Glucerna 1.2 @ goal rate to 55ml/hr. * Start @25ml/hr for 6 hrs, advance as tolerated to goal. * HOB over 30 degrees/ water flush per MD ADDITIONAL RECOMMENDATIONS: * CALIBRATED BED SCALE WTS * Monitor lytes, replete as needed * Monitor liver fxn, renal fxn, BGs * Monitor tolerance to TF when resumed.
--- NOTE | 2018-10-19 11:11 | Diagnostic Imaging Report ---
Indication: Evaluation of nasogastric tube placement Technique: Supine view of the upper abdomen Comparison: 4 hours earlier Findings: Stable satisfactory position of nasogastric tube, tip projecting at the level of the gastric antrum. Previously injected contrast has migrated distally. The bowel gas pattern is unremarkable Impression: Stable satisfactory nasogastric intubation
--- NOTE | 2018-10-19 11:20 | NUR ---
RADIOLOGY DEPT CHEST X-RAY DONE.-P.DYE
[2018-10-19 12:00] VITALS: BP 131/67
--- NOTE | 2018-10-19 12:00 | NUR ---
NURSE NOTES: Received patient from KARI Rosa. Patient VS stable at this time with no sign of acute distress. Patient denies pain at this time. Patient is [place] speaking and confused. patient and 2 other family members at the bedside. Patient showing low sinus tachycardia on the monitor. Patient on NC 3L at this time. Patient has an NGT in the left nares that is set to low intermittent suction at this time. Medication okay to go through NGT. Patient has a rectal tube that is patent, asymptomatic and draining. Patient on bilateral soft wrist restraints. Patient placed on restraints after being witnessed pulling out her NG tube. Patient has sacral redness that is covered with skin barrier film and optifoam. Patient has left upper arm PICC that is patent, asymptomatic, and running D5W at 150mL/hr. Patient has an order for potassium 40mEq total IV for potassium of 3.4 this morning. Will follow up and continue administration. Patient bed in low position with bed alarm on and call light in reach at this time.
--- NOTE | 2018-10-19 12:04 | NUR ---
ST NOTE: SWALLOW STATUS FOLLOWED UP PT'S CONDITIONS. NGT INSERTED YESTERDAY. PER RN, LARGE AMOUNT OF GASTRIC SECRETIONS DRAINING WAS NOTED. TUBE FEEDING IS HELD. PT SEEN AT BEDSIDE IN LATE AM, PT'S IS AT BEDSIDE. SHORTNESS OF BREATH WAS NOTED. SPOKE AND EDUCATED PT'S RE: PT'S CONDITIONS AND RECOMMENDATIONS. WILL FOLLOW UP PT'S CONDITIONS (WHEN CLEAR BY GI) SPEECH/COGNITION EVAL D/W PT'S , RN, CECILIA
--- NOTE | 2018-10-19 12:16 | Diagnostic Imaging Report ---
Indication: Shortness of breath Technique: One view of the chest Comparison: Post PICC radiograph 10/15/2018 Findings: Again demonstrated is elevation of the right hemidiaphragm. Interim endotracheal tube removal. Nasogastric tube remains. Left arm PICC remains. Impression: Interim extubation Otherwise unchanged, findings as noted
--- NOTE | 2018-10-19 13:10 | Nephrology Progress Note ---
Assessment/Plan Problem List: (1) JONNATHAN (acute kidney injury) Assessment: resolving (2) Shock liver (3) Septic shock (4) Respiratory disorder with ventilator dependence Assessment - Acute Oliguric Renal Failure Cr down to 1.6 - Respiratory disorder with ventilator dependence - Septic shock , Leukocytosis - Pneumonia - Liver cirrhosis - Obese - Anemia . Plan transfused 2 units previously down on IV fluid K IV as needed Hemodynamic support Pulmunary support Monitor renal parameters avoid nephrotoxics as best as possible per orders discussed with RN Subjective ROS Limited/Unobtainable: No Constitutional: Reports: malaise Objective Objective Last 24 Hour Vital Signs Date Time Temp Pulse Resp B/P (MAP) Pulse Ox O2 Delivery O2 Flow Rate FiO2 10/19/18 12:00 Nasal Cannula 2.0 10/19/18 12:00 97.5 104 21 131/67 (88) 96 10/19/18 11:37 106 22 99 Nasal Cannula 3.0 32 10/19/18 11:27 99 20 98 Nasal Cannula 3.0 32 10/19/18 09:31 110 10/19/18 08:00 103 10/19/18 08:00 Nasal Cannula 2.0 10/19/18 08:00 98.7 106 24 161/78 (105) 95 10/19/18 07:24 100 22 100 Nasal Cannula 3.0 32 10/19/18 07:12 98 20 98 Nasal Cannula 3.0 32 10/19/18 07:11 98 Nasal Cannula 3.0 32 10/19/18 07:11 Nasal Cannula 3.0 10/19/18 04:00 104 10/19/18 04:00 98.7 105 24 159/84 (109) 95 10/19/18 04:00 Nasal Cannula 2.0 10/19/18 03:48 106 22 97 Nasal Cannula 2.0 28 10/19/18 03:38 104 20 98 Nasal Cannula 4.0 36 10/19/18 00:00 98.8 107 32 144/74 (97) 95 10/19/18 00:00 Nasal Cannula 2.0 10/19/18 00:00 108 10/18/18 23:59 108 22 97 Nasal Cannula 4.0 36 10/18/18 23:50 105 22 96 Nasal Cannula 4.0 36 10/18/18 20:08 Nasal Cannula 3.0 3/7/19 20:08 95 Nasal Cannula 3.0 10/18/18 20:00 99.0 102 32 135/82 (99) 96 10/18/18 20:00 Nasal Cannula 2.0 10/18/18 20:00 103 10/18/18 19:59 Nasal Cannula 10/18/18 19:59 Nasal Cannula 10/18/18 17:00 Nasal Cannula 2.0 10/18/18 16:00 98.3 106 26 141/72 (95) 96 10/18/18 16:00 Nasal Cannula 2.0 10/18/18 15:28 Nasal Cannula 10/18/18 15:28 Nasal Cannula 10/18/18 15:22 109 Intake and Output 10/18/18 10/19/18 19:00 07:00 Intake Total 1206.96 ml 1050 ml Output Total 650 ml 1770 ml Balance 556.96 ml -720 ml IV Total 1206.96 ml 1050 ml Output Urine Total 650 ml 1000 ml Stool Total 150 ml Gastric Drainage Total 620 ml Laboratory Tests 10/18/18 16:00: Stool Occult Blood Positive 10/19/18 04:15: White Blood Count 15.4H, Red Blood Count 2.86L, Hemoglobin 8.8L, Hematocrit 27.1L, Mean Corpuscular Volume 95, Mean Corpuscular Hemoglobin 30.7, Mean Corpuscular Hemoglobin Concent 32.4, Red Cell Distribution Width 19.6H, Platelet Count 54L, Mean Platelet Volume 5.9L, Neutrophils (%) (Auto) , Lymphocytes (%) (Auto) , Monocytes (%) (Auto) , Eosinophils (%) (Auto) , Basophils (%) (Auto) , Differential Total Cells Counted 100, Neutrophils % ( Manual) 81H, Lymphocytes % (Manual) 9L, Monocytes % (Manual) 8, Eosinophils % ( Manual) 0, Basophils % (Manual) 2, Band Neutrophils 0, Platelet Estimate DecreasedL, Platelet Morphology Normal, Polychromasia 1+, Hypochromasia 1+, Anisocytosis 2+, Sodium Level 150H, Potassium Level 3.4L, Chloride Level 118H, Carbon Dioxide Level 23, Anion Gap 9, Blood Urea Nitrogen 28H, Creatinine 1.6H, Estimat Glomerular Filtration Rate 33.1, Glucose Level 220H, Calcium Level 9.4, Total Bilirubin 5.8H, Direct Bilirubin 4.0H, Aspartate Amino Transf (AST/SGOT) 75H, Alanine Aminotransferase (ALT/SGPT) 350H, Alkaline Phosphatase 463H, Total Protein 5.1L, Albumin 2.3L, Globulin 2.8, Albumin/Globulin Ratio 0.8L Height (Feet): 5 Height (Inches): 1.00 Weight (Pounds): 251 General Appearance: no apparent distress, lethargic Cardiovascular: bradycardia Respiratory/Chest: decreased breath sounds Abdomen: distended Objective NO CHANGE Alex Cueto MD Oct 19, 2018 13:10
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
--- NOTE | 2018-10-19 13:53 | NUR ---
NURSE NOTES: Dr Samuel ordered CT abdomen/pelvis. Patient is still on low intermittent suction and put out about 900mL of gastric secretions last night. Left message for Dr Samuel to clarify whether he wants the patient to have the oral contrast given at this time.
--- NOTE | 2018-10-19 14:46 | NUR ---
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 LIVER CIRRHOSIS . RESP DISTRESS VS: 161/78, P 106, T 97.5, RR 24, SpO2 on 3.0 NC WBC 15.4, Na 150, K 3.4, BUN 28, CR1.6 CXR Impression: Interim extubation IS:Digoxin Potassium Chloride D5 IV x 1L Amiodarone Pantoprazole Rifaximin Lactulose Reglan NovoLog Albuterol SDU STATUS
[2018-10-19 16:00] VITALS: BP 130/69
--- NOTE | 2018-10-19 17:07 | Diagnostic Imaging Report ---
Indication: Abdominal pain Technique: Spiral acquisitions obtained through the abdomen and pelvis. No oral contrast utilized, reason not stated. No IV contrast utilized, reason not stated.. Multiplanar reconstructions were generated. Total dose length product 1199.67 mGycm. CTDIvol(s) 19.51 mGy. Dose reduction achieved using automated exposure control Comparison: 10/09/2018 Findings: Interim marked increase in degree of edema of the subcutaneous fat. There is also increased intraperitoneal fluid. Lack of enteric contrast limits assessment of the GI tract. There is a nasogastric tube in place, tip projected at the level gastric antrum. A small amount of contrast is seen within the colon, presumably from prior injection of the nasogastric tube for abdominal radiography performed 11 hours earlier. The appendix is normal, is filled with contrast. No evidence of diverticulosis or diverticulitis. There is a rectal tube in place. No free intraperitoneal gas is evident. No small bowel distention. The distal esophagus, stomach are unremarkable other than the nasogastric tube. The duodenum is unremarkable. Lack of IV contrast limits assessment of solid organs. The liver demonstrates surface nodularity, as previously, consistent with cirrhotic change. No definite focal abnormality. Previously demonstrated capsular calcification is not currently visible The gallbladder is surgically absent. No biliary ductal dilatation. The pancreas is unremarkable. Spleen is borderline enlarged, measuring 13 cm long axis dimension. The adrenals, kidneys are unremarkable. No renal or ureteral calculi. No hydronephrosis or hydroureter. The bladder is empty, contains a Quiroz catheter, as previously. No retroperitoneal or mesenteric mass or adenopathy. No pelvic mass or adenopathy. The uterus and ovaries are unremarkable. The included lung bases demonstrate areas of patchy consolidation and atelectasis as well as some congestion, similar in extent to the previous exam. The tip of a PICC is seen in the high right atrium. The bones demonstrate degenerative spondylosis changes, are otherwise unremarkable. Impression: Limited assessment of the GI tract, due to lack of enteric contrast administration. Abdominal ascites, increased in extent since prior study of 10/09/2018 Increased edema of the subcutaneous fat, since previous study Hepatic surface nodularity, consistent with cirrhosis, also previously reported Borderline splenomegaly Bilateral basilar pulmonary patchy consolidation and atelectasis as well as some congestion. Findings as noted, including degenerative spondylosis, PICC, Quiroz catheter, rectal tube, nasogastric tube The CT scanner at [facility] is accredited by the [employer] and the scans are performed using protocols designed to limit radiation exposure to as low as reasonably achievable to attain images of sufficient resolution adequate for diagnostic evaluation.
--- NOTE | 2018-10-19 17:11 | Cardiac Electrophysiology PN ---
Assessment/Plan Assessment/Plan 1. Atrial fib with RVR. Off Beta janet or CA janet for hypotension. On Dig 0.125 qod and amiodarone 200 daily. In SR 2. S/P Septic shock. On broad spectrum IV antibiotic. 3. Troponin leak. The levels are flat and likely due to this patient's sepsis and septic shock. Her echocardiogram showed ejection fraction 60% to 65% and EKG showed no acute ischemic changes. 4. S/P Respiratory failure, Extubated 5. Diabetes. 6. Renal failure. 7. Morbid obesity. 8. Failed Swallow eval. NG tube in DW RN Subjective Subjective In restraints.NG to suction. In SR. Objective Last 24 Hour Vital Signs Date Time Temp Pulse Resp B/P (MAP) Pulse Ox O2 Delivery O2 Flow Rate FiO2 10/19/18 15:29 Nasal Cannula 3.0 32 10/19/18 15:29 Nasal Cannula 3.0 32 10/19/18 12:00 Nasal Cannula 2.0 10/19/18 12:00 97.5 104 21 131/67 (88) 96 10/19/18 12:00 106 10/19/18 11:37 106 22 99 Nasal Cannula 3.0 32 10/19/18 11:27 99 20 98 Nasal Cannula 3.0 32 10/19/18 09:31 110 10/19/18 08:00 103 10/19/18 08:00 Nasal Cannula 2.0 10/19/18 08:00 98.7 106 24 161/78 (105) 95 10/19/18 07:24 100 22 100 Nasal Cannula 3.0 32 10/19/18 07:12 98 20 98 Nasal Cannula 3.0 32 10/19/18 07:11 98 Nasal Cannula 3.0 32 10/19/18 07:11 Nasal Cannula 3.0 10/19/18 04:00 104 10/19/18 04:00 98.7 105 24 159/84 (109) 95 10/19/18 04:00 Nasal Cannula 2.0 10/19/18 03:48 106 22 97 Nasal Cannula 2.0 28 10/19/18 03:38 104 20 98 Nasal Cannula 4.0 36 10/19/18 00:00 98.8 107 32 144/74 (97) 95 10/19/18 00:00 Nasal Cannula 2.0 10/19/18 00:00 108 10/18/18 23:59 108 22 97 Nasal Cannula 4.0 36 10/18/18 23:50 105 22 96 Nasal Cannula 4.0 36 10/18/18 20:08 Nasal Cannula 3.0 10/18/18 20:08 95 Nasal Cannula 3.0 10/18/18 20:00 99.0 102 32 135/82 (99) 96 10/18/18 20:00 Nasal Cannula 2.0 10/18/18 20:00 103 10/18/18 19:59 Nasal Cannula 10/18/18 19:59 Nasal Cannula Intake and Output 10/18/18 10/19/18 19:00 07:00 Intake Total 1206.96 ml 1050 ml Output Total 650 ml 1770 ml Balance 556.96 ml -720 ml IV Total 1206.96 ml 1050 ml Output Urine Total 650 ml 1000 ml Stool Total 150 ml Gastric Drainage Total 620 ml Laboratory Tests Test 10/19/18 04:15 White Blood Count 15.4 K/UL (4.8-10.8) H Red Blood Count 2.86 M/UL (4.20-5.40) L Hemoglobin 8.8 G/DL (12.0-16.0) L Hematocrit 27.1 % (37.0-47.0) L Mean Corpuscular Volume 95 FL (80-99) Mean Corpuscular Hemoglobin 30.7 PG (27.0-31.0) Mean Corpuscular Hemoglobin Concent 32.4 G/DL (32.0-36.0) Red Cell Distribution Width 19.6 % (11.6-14.8) H Platelet Count 54 K/UL (150-450) L Mean Platelet Volume 5.9 FL (6.5-10.1) L Neutrophils (%) (Auto) % (45.0-75.0) Lymphocytes (%) (Auto) % (20.0-45.0) Monocytes (%) (Auto) % (1.0-10.0) Eosinophils (%) (Auto) % (0.0-3.0) Basophils (%) (Auto) % (0.0-2.0) Differential Total Cells Counted 100 Neutrophils % (Manual) 81 % (45-75) H Lymphocytes % (Manual) 9 % (20-45) L Monocytes % (Manual) 8 % (1-10) Eosinophils % (Manual) 0 % (0-3) Basophils % (Manual) 2 % (0-2) Band Neutrophils 0 % (0-8) Platelet Estimate Decreased L Platelet Morphology Normal Polychromasia 1+ Hypochromasia 1+ Anisocytosis 2+ Sodium Level 150 MMOL/L (136-145) H Potassium Level 3.4 MMOL/L (3.5-5.1) L Chloride Level 118 MMOL/L (98-107) H Carbon Dioxide Level 23 MMOL/L (21-32) Anion Gap 9 mmol/L (5-15) Blood Urea Nitrogen 28 mg/dL (7-18) H Creatinine 1.6 MG/DL (0.55-1.30) H Estimat Glomerular Filtration Rate 33.1 mL/min (>60) Glucose Level 220 MG/DL (74-106) H Calcium Level 9.4 MG/DL (8.5-10.1) Total Bilirubin 5.8 MG/DL (0.2-1.0) H Direct Bilirubin 4.0 MG/DL (0.0-0.3) H Aspartate Amino Transf (AST/SGOT) 75 U/L (15-37) H Alanine Aminotransferase (ALT/SGPT) 350 U/L (12-78) H Alkaline Phosphatase 463 U/L (46-116) H Total Protein 5.1 G/DL (6.4-8.2) L Albumin 2.3 G/DL (3.4-5.0) L Globulin 2.8 g/dL Albumin/Globulin Ratio 0.8 (1.0-2.7) L Objective HEAD AND NECK: no JVD. NG tube in LUNGS: Coarse rhonchi. CARDIOVASCULAR: Regular S1, S2 with no gallop or murmur. ABDOMEN: Obese. EXTREMITIES: No pitting edema. Sean Montanez MD Oct 19, 2018 17:11
--- NOTE | 2018-10-19 19:03 | Pulmonology Progress Note ---
Assessment/Plan Assessment/Plan ASSESSMENT: The patient is a 58-year-old female with a history of obesity, diabetes, hypertension, hyperlipidemia, and sciatica with chronic low back pain , DDD/DJD, presenting after a mechanical fall with altered mental status and confusion with likely sepsis and multisystem organ failure. PROBLEM LIST: 1. VDRF, EXTUBATED 10/16/18 2. Sepsis 3. Shock, hypovolemic and distributive. 4. Multisystem organ failure. 5. Lactic acidosis. 6. Anion gap metabolic acidosis. 7. JONNATHAN - BETTER 7. Abnormal LFTs, likely shock liver. 8. Abnormal troponin, likely demand ischemia. 9. Elevated D-dimer and PASP concerning for an acute PE 10. Obesity. 11. Diabetes. 12. Hypertension. 13. Chronic low back pain and sciatica. 14. Anemia/FOBT + 15. Thrombocytopenia 16. AFcRVR now in NSR 17. HyperNa TREATMENT PLAN: 1. Optimize pulmonary hygiene/mobilize as tolerated 2. Titrate down FiO2 to keep SaO2 < 90% 3. Observe off Abx per ID 4. D5W@75, lasix 20 IV x 1 + albumin 25 gm 25% 6. SSI, monitor BS 7. Follow up cards recs 8. GI and surgery recs, F/U CT AP, NGT to LIS, NPO, ENDOSCOPY? 9. VQ scan when able or CT-A if renal function better 10. DVT prophylaxis: hep held 2/2 thrombocytopenia, ? HIT Ab panel 11. FC Subjective Allergies: Coded Allergies: No Known Allergies (Unverified , 05/06/18) Subjective AFVSS on 3L Failed VSS NGT placed, high residuals Diffusely edematous + cough no SOB no F/C Objective Last 24 Hour Vital Signs Date Time Temp Pulse Resp B/P (MAP) Pulse Ox O2 Delivery O2 Flow Rate FiO2 10/19/18 16:00 104 10/19/18 16:00 97.8 103 21 130/69 (89) 98 10/19/18 16:00 Nasal Cannula 2.0 10/19/18 15:29 Nasal Cannula 3.0 32 10/19/18 15:29 Nasal Cannula 3.0 32 10/19/18 12:00 Nasal Cannula 2.0 10/19/18 12:00 97.5 104 21 131/67 (88) 96 10/19/18 12:00 106 10/19/18 11:37 106 22 99 Nasal Cannula 3.0 32 10/19/18 11:27 99 20 98 Nasal Cannula 3.0 32 10/19/18 09:31 110 10/19/18 08:00 103 10/19/18 08:00 Nasal Cannula 2.0 10/19/18 08:00 98.7 106 24 161/78 (105) 95 10/19/18 07:24 100 22 100 Nasal Cannula 3.0 32 10/19/18 07:12 98 20 98 Nasal Cannula 3.0 32 10/19/18 07:11 98 Nasal Cannula 3.0 32 10/19/18 07:11 Nasal Cannula 3.0 10/19/18 04:00 104 10/19/18 04:00 98.7 105 24 159/84 (109) 95 10/19/18 04:00 Nasal Cannula 2.0 10/19/18 03:48 106 22 97 Nasal Cannula 2.0 28 10/19/18 03:38 104 20 98 Nasal Cannula 4.0 36 10/19/18 00:00 98.8 107 32 144/74 (97) 95 10/19/18 00:00 Nasal Cannula 2.0 10/19/18 00:00 108 10/18/18 23:59 108 22 97 Nasal Cannula 4.0 36 10/18/18 23:50 105 22 96 Nasal Cannula 4.0 36 10/18/18 20:08 Nasal Cannula 3.0 10/18/18 20:08 95 Nasal Cannula 3.0 10/18/18 20:00 99.0 102 32 135/82 (99) 96 10/18/18 20:00 Nasal Cannula 2.0 10/18/18 20:00 103 10/18/18 19:59 Nasal Cannula 10/18/18 19:59 Nasal Cannula Intake and Output 10/18/18 10/19/18 19:00 07:00 Intake Total 1206.96 ml 1050 ml Output Total 650 ml 1770 ml Balance 556.96 ml -720 ml IV Total 1206.96 ml 1050 ml Output Urine Total 650 ml 1000 ml Stool Total 150 ml Gastric Drainage Total 620 ml General Appearance: no acute distress, cachetic, other HEENT: normocephalic, atraumatic, anicteric, mucous membranes moist Respiratory/Chest: crackles/rales Cardiovascular: normal peripheral pulses, normal rate, regular rhythm Abdomen: normal bowel sounds, soft, non tender, no organomegaly, non distended , no mass Extremities: no cyanosis, no clubbing, other - 2+ MAREK Laboratory Tests 10/19/18 04:15: White Blood Count 15.4H, Red Blood Count 2.86L, Hemoglobin 8.8L, Hematocrit 27.1L, Mean Corpuscular Volume 95, Mean Corpuscular Hemoglobin 30.7, Mean Corpuscular Hemoglobin Concent 32.4, Red Cell Distribution Width 19.6H, Platelet Count 54L, Mean Platelet Volume 5.9L, Neutrophils (%) (Auto) , Lymphocytes (%) (Auto) , Monocytes (%) (Auto) , Eosinophils (%) (Auto) , Basophils (%) (Auto) , Differential Total Cells Counted 100, Neutrophils % ( Manual) 81H, Lymphocytes % (Manual) 9L, Monocytes % (Manual) 8, Eosinophils % ( Manual) 0, Basophils % (Manual) 2, Band Neutrophils 0, Platelet Estimate DecreasedL, Platelet Morphology Normal, Polychromasia 1+, Hypochromasia 1+, Anisocytosis 2+, Sodium Level 150H, Potassium Level 3.4L, Chloride Level 118H, Carbon Dioxide Level 23, Anion Gap 9, Blood Urea Nitrogen 28H, Creatinine 1.6H, Estimat Glomerular Filtration Rate 33.1, Glucose Level 220H, Calcium Level 9.4, Total Bilirubin 5.8H, Direct Bilirubin 4.0H, Aspartate Amino Transf (AST/SGOT) 75H, Alanine Aminotransferase (ALT/SGPT) 350H, Alkaline Phosphatase 463H, Total Protein 5.1L, Albumin 2.3L, Globulin 2.8, Albumin/Globulin Ratio 0.8L Current Medications Medications (Trade) Dose Ordered Sig/Patricia Route PRN Reason Start Time Stop Time Status Last Admin Dose Admin Acetaminophen (Tylenol) 650 mg Q4H PRN ORAL Mild Pain/Temp > 100.5 10/17/18 15:00 11/08/18 14:59 Albuterol/ Ipratropium (Albuterol/ Ipratropium) 3 ml Q4HRT HHN 10/17/18 15:00 10/22/18 10:59 10/19/18 11:27 Amiodarone HCl (Cordarone) 200 mg DAILY NG 10/18/18 09:00 11/12/18 20:59 10/19/18 09:31 Chlorhexidine Gluconate (Nguyen-Hex 2%) 1 applic DAILY@2000 TOPIC 10/17/18 20:00 11/09/18 19:59 10/18/18 21:18 Dextrose 1,000 ml @ 75 mls/hr [id number] IV 10/19/18 13:30 11/18/18 13:29 10/19/18 14:02 Dextrose (Dextrose 50%) 25 ml Q30M PRN IV Hypoglycemia 10/17/18 14:45 11/10/18 13:44 Dextrose (Dextrose 50%) 50 ml Q30M PRN IV Hypoglycemia 10/17/18 14:45 11/10/18 13:44 Digoxin (Lanoxin) 0.125 mg QOD NG 10/19/18 09:00 11/15/18 08:59 10/19/18 09:31 Diphenhydramine HCl (Benadryl) 25 mg Q6H PRN IVP Itching 10/17/18 14:30 11/08/18 14:29 Insulin Aspart (NovoLOG) BEFORE MEALS AND HS SUBQ 10/17/18 16:30 11/10/18 16:29 10/19/18 16:59 Lactulose (Cephulac) 30 gm THREE TIMES A DAY NG 10/17/18 18:00 11/12/18 17:59 10/19/18 18:39 Metoclopramide HCl (Reglan) 5 mg Q6H IVP 10/17/18 17:30 11/13/18 11:29 10/19/18 18:39 Midazolam HCl (Versed 2mg/2ml vial) 1 mg Q2H PRN IVP For Anxiety 10/17/18 14:30 11/11/18 14:29 Pantoprazole (Protonix) 40 mg EVERY 12 HOURS IVP 10/17/18 21:00 11/09/18 20:59 10/19/18 09:30 Rifaximin (Xifaxan) 550 mg EVERY 12 HOURS ORAL 10/17/18 21:00 10/26/18 20:59 10/19/18 09:36 Renato Delarosa MD Oct 19, 2018 19:03
--- NOTE | 2018-10-19 19:30 | NUR ---
NURSE NOTES:Received pt Awake, slightly lethargic, oriented to her name only , follow simple commands. NGT to low intermittent suction with yellowish drainage , mouth easily bleed during suctioning,mds are aware, pts is obese and appeared jaundice , 2-3+edema noted to extremities IVf infusing well to LISA pICC line, Rectal tube to gravity with yellowish liquid stools coming out., slight redness and scattred ecchymosis noted to pts body. Son at bedside- will continue to monitor.
--- NOTE | 2018-10-19 19:40 | NUR ---
HAND-OFF: Report given to KARI Flannery. Patient VS stable at this time with no sign of acute distress.
[2018-10-19 20:00] VITALS: BP 138/80
--- NOTE | 2018-10-19 20:00 | NUR ---
NURSE NOTES:Lasix 20mg ivp x1 was given.
[2018-10-19] MEDS: Dyna-Hex 2% Top Sol 2oz TOPIC SCH (20:02)
--- NOTE | 2018-10-19 20:07 | General Progress Note ---
Assessment/Plan Assessment/Plan Assessment and Recs: # Leukocytosis/Elevated white blood cell count, unspecified likely related to underlying stress reaction, or underlying infection --> have reviewed peripheral smear and bandemia/neutrophilia noted --> continue antibiotics if they have been started by ID team (on zosyn at this time) --> monitor for resolution -->WBC trend: 14-->10-->15--> # Thrombocytopenia - potential causes multifactorial, evaluate liver and viral etiologies to begin, also could be related to underlying medications patient has received. Hx of cirrhosis in the past noted on us --> Hep panel and HIV negative --> CT a/p show cirrhosis as well as us --> Peripheral smear ordered to evaluate for blasts /schistocytes is negative --> abx and other meds have been reviewed --> ok for ppx if plt >50k w/ either heparin or lovenox --> Transfuse if Plt < 20k and fever, or if Plt < 10k without fever --> HIT negative, hold off heparin -->Plt trend : 54--> # Anemia of iron deficiency as noted with low % sat and tibc elevated --> Anemia workup has been reviewed --> No evidence of hemolysis is noted, peripheral smear has been reviewed. --> Hgb goal >7. Transfuse prn. --> Iron IV X 5 days already given --> Medications have been reviewed # CEA of 10.5 --> Ct of abdomen/pelvis reviewed and is negative # Sepsis likely contributing to low plts --> on abx as needed # Shock, hypovolemic and distributive --> per id and pulm/cc care # Multisystem organ failure. # Lactic acidosis. # JONNATHAN. # Abnormal LFTs, likely shock liver. # Abnormal troponin, likely demand ischemia. # Obesity. # Respiratory failure on vent --> now extubated The timing of this note does not necessarily reflect the time of the patient was seen. Greatly appreciate consultation! Subjective Allergies: Coded Allergies: No Known Allergies (Unverified , 05/06/18) Subjective 3/1: Pt was seen in ICU on Vent and off pressors, developed atrial fib, wbc trending down to 13, plt trending down to 60 3/3: remains in the icu, monitoring labs, plts stabilizing, remains critically ill, cea elev 3/4: In ICU on Vent and off pressors, plt 62, no events 10/16 wbc trending up at 14,plt low at 48,weaning well from vent. no acute events , family at bedside 10/17: plts remain low, no events, weaned off vent, no complaints, off pressors 10/18: seen by bedside, wbc trending up at 15, plt low at 50, no events, needs video swallow. NGT 10/19: wbc remains elevated, plt 54, no acute distress reported Objective Last 24 Hour Vital Signs Date Time Temp Pulse Resp B/P (MAP) Pulse Ox O2 Delivery O2 Flow Rate FiO2 10/19/18 19:41 107 18 96 Nasal Cannula 3.0 32 10/19/18 16:00 104 10/19/18 16:00 97.8 103 21 130/69 (89) 98 10/19/18 16:00 Nasal Cannula 2.0 10/19/18 15:29 Nasal Cannula 3.0 32 10/19/18 15:29 Nasal Cannula 3.0 32 10/19/18 12:00 Nasal Cannula 2.0 10/19/18 12:00 97.5 104 21 131/67 (88) 96 10/19/18 12:00 106 10/19/18 11:37 106 22 99 Nasal Cannula 3.0 32 10/19/18 11:27 99 20 98 Nasal Cannula 3.0 32 10/19/18 09:31 110 10/19/18 08:00 103 10/19/18 08:00 Nasal Cannula 2.0 10/19/18 08:00 98.7 106 24 161/78 (105) 95 10/19/18 07:24 100 22 100 Nasal Cannula 3.0 32 10/19/18 07:12 98 20 98 Nasal Cannula 3.0 32 10/19/18 07:11 98 Nasal Cannula 3.0 32 10/19/18 07:11 Nasal Cannula 3.0 10/19/18 04:00 104 10/19/18 04:00 98.7 105 24 159/84 (109) 95 10/19/18 04:00 Nasal Cannula 2.0 10/19/18 03:48 106 22 97 Nasal Cannula 2.0 28 10/19/18 03:38 104 20 98 Nasal Cannula 4.0 36 10/19/18 00:00 98.8 107 32 144/74 (97) 95 10/19/18 00:00 Nasal Cannula 2.0 10/19/18 00:00 108 10/18/18 23:59 108 22 97 Nasal Cannula 4.0 36 10/18/18 23:50 105 22 96 Nasal Cannula 4.0 36 10/18/18 20:08 Nasal Cannula 3.0 10/18/18 20:08 95 Nasal Cannula 3.0 Intake and Output 10/18/18 10/19/18 19:00 07:00 Intake Total 1206.96 ml 1050 ml Output Total 650 ml 1770 ml Balance 556.96 ml -720 ml IV Total 1206.96 ml 1050 ml Output Urine Total 650 ml 1000 ml Stool Total 150 ml Gastric Drainage Total 620 ml Laboratory Tests 10/19/18 04:15: White Blood Count 15.4H, Red Blood Count 2.86L, Hemoglobin 8.8L, Hematocrit 27.1L, Mean Corpuscular Volume 95, Mean Corpuscular Hemoglobin 30.7, Mean Corpuscular Hemoglobin Concent 32.4, Red Cell Distribution Width 19.6H, Platelet Count 54L, Mean Platelet Volume 5.9L, Neutrophils (%) (Auto) , Lymphocytes (%) (Auto) , Monocytes (%) (Auto) , Eosinophils (%) (Auto) , Basophils (%) (Auto) , Differential Total Cells Counted 100, Neutrophils % ( Manual) 81H, Lymphocytes % (Manual) 9L, Monocytes % (Manual) 8, Eosinophils % ( Manual) 0, Basophils % (Manual) 2, Band Neutrophils 0, Platelet Estimate DecreasedL, Platelet Morphology Normal, Polychromasia 1+, Hypochromasia 1+, Anisocytosis 2+, Sodium Level 150H, Potassium Level 3.4L, Chloride Level 118H, Carbon Dioxide Level 23, Anion Gap 9, Blood Urea Nitrogen 28H, Creatinine 1.6H, Estimat Glomerular Filtration Rate 33.1, Glucose Level 220H, Calcium Level 9.4, Total Bilirubin 5.8H, Direct Bilirubin 4.0H, Aspartate Amino Transf (AST/SGOT) 75H, Alanine Aminotransferase (ALT/SGPT) 350H, Alkaline Phosphatase 463H, Total Protein 5.1L, Albumin 2.3L, Globulin 2.8, Albumin/Globulin Ratio 0.8L Height (Feet): 5 Height (Inches): 1.00 Weight (Pounds): 251 Objective PHYSICAL EXAMINATION: VITAL SIGNS: reviewed, saturating 98% on NC++, GENERAL: She is an obese female, confused. HEENT: Normocephalic and atraumatic. Oropharynx is clear with dry mucous membranes., NJ tube++ NECK: Supple without lymphadenopathy or JVP. CHEST: Clear. HEART: Regular. ABDOMEN: Benign. EXTREMITIES: No cyanosis, clubbing, or edema. There are some ecchymoses in bilateral lower extremities. Kurtis Villagomez MD Oct 19, 2018 20:07
[2018-10-19] MEDS ORDERED: NS 275ml ONE (20:26)
[2018-10-19] MEDS ORDERED: Tubing IV Secondary IV ONE (20:26)
--- NOTE | 2018-10-19 21:08 | General Progress Note ---
Assessment/Plan Problem List: (1) Hypotension ICD Codes: I95.9 - Hypotension, unspecified SNOMED: 26180821 (2) Hyperglycemia ICD Codes: R73.9 - Hyperglycemia, unspecified SNOMED: 96014679 (3) Dyspnea ICD Codes: R06.00 - Dyspnea, unspecified SNOMED: 621702083 (4) Hypoxemia ICD Codes: R09.02 - Hypoxemia SNOMED: 881324325 (5) Contusion of left knee ICD Codes: S80.02XA - Contusion of left knee, initial encounter SNOMED: 85049707 (6) Sepsis ICD Codes: A41.9 - Sepsis, unspecified organism SNOMED: 52355010 (7) Septic shock ICD Codes: A41.9 - Sepsis, unspecified organism; R65.21 - Severe sepsis with septic shock SNOMED: 47518187 (8) Liver cirrhosis ICD Codes: K74.60 - Unspecified cirrhosis of liver SNOMED: 15231132 (9) Pneumonia ICD Codes: J18.9 - Pneumonia, unspecified organism SNOMED: 184823975 (10) Respiratory disorder with ventilator dependence ICD Codes: J98.9 - Respiratory disorder, unspecified; Z99.11 - Dependence on respirator [ventilator] status SNOMED: 25376391, 097548763 (11) Shock liver ICD Codes: K72.00 - Acute and subacute hepatic failure without coma SNOMED: 995823002 Status: progressing Assessment/Plan afebrile no wheezing abx per id resp insuff shock liver is improving edema niddm cihrrosis sepsis obesity morbid pna Subjective ROS Limited/Unobtainable: Yes Allergies: Coded Allergies: No Known Allergies (Unverified , 05/06/18) Objective Last 24 Hour Vital Signs Date Time Temp Pulse Resp B/P (MAP) Pulse Ox O2 Delivery O2 Flow Rate FiO2 10/19/18 19:51 96 Nasal Cannula 3.0 32 10/19/18 19:51 108 20 97 Nasal Cannula 3.0 32 10/19/18 19:51 Nasal Cannula 3.0 32 10/19/18 19:41 107 18 96 Nasal Cannula 3.0 32 10/19/18 16:00 104 10/19/18 16:00 97.8 103 21 130/69 (89) 98 10/19/18 16:00 Nasal Cannula 2.0 10/19/18 15:29 Nasal Cannula 3.0 32 10/19/18 15:29 Nasal Cannula 3.0 32 10/19/18 12:00 Nasal Cannula 2.0 10/19/18 12:00 97.5 104 21 131/67 (88) 96 10/19/18 12:00 106 10/19/18 11:37 106 22 99 Nasal Cannula 3.0 32 10/19/18 11:27 99 20 98 Nasal Cannula 3.0 32 10/19/18 09:31 110 10/19/18 08:00 103 10/19/18 08:00 Nasal Cannula 2.0 10/19/18 08:00 98.7 106 24 161/78 (105) 95 10/19/18 07:24 100 22 100 Nasal Cannula 3.0 32 10/19/18 07:12 98 20 98 Nasal Cannula 3.0 32 10/19/18 07:11 98 Nasal Cannula 3.0 32 10/19/18 07:11 Nasal Cannula 3.0 10/19/18 04:00 104 10/19/18 04:00 98.7 105 24 159/84 (109) 95 10/19/18 04:00 Nasal Cannula 2.0 10/19/18 03:48 106 22 97 Nasal Cannula 2.0 28 10/19/18 03:38 104 20 98 Nasal Cannula 4.0 36 10/19/18 00:00 98.8 107 32 144/74 (97) 95 10/19/18 00:00 Nasal Cannula 2.0 10/19/18 00:00 108 10/18/18 23:59 108 22 97 Nasal Cannula 4.0 36 10/18/18 23:50 105 22 96 Nasal Cannula 4.0 36 Intake and Output 10/18/18 10/19/18 19:00 07:00 Intake Total 1206.96 ml 1050 ml Output Total 650 ml 1770 ml Balance 556.96 ml -720 ml IV Total 1206.96 ml 1050 ml Output Urine Total 650 ml 1000 ml Stool Total 150 ml Gastric Drainage Total 620 ml Laboratory Tests 10/19/18 04:15: White Blood Count 15.4H, Red Blood Count 2.86L, Hemoglobin 8.8L, Hematocrit 27.1L, Mean Corpuscular Volume 95, Mean Corpuscular Hemoglobin 30.7, Mean Corpuscular Hemoglobin Concent 32.4, Red Cell Distribution Width 19.6H, Platelet Count 54L, Mean Platelet Volume 5.9L, Neutrophils (%) (Auto) , Lymphocytes (%) (Auto) , Monocytes (%) (Auto) , Eosinophils (%) (Auto) , Basophils (%) (Auto) , Differential Total Cells Counted 100, Neutrophils % ( Manual) 81H, Lymphocytes % (Manual) 9L, Monocytes % (Manual) 8, Eosinophils % ( Manual) 0, Basophils % (Manual) 2, Band Neutrophils 0, Platelet Estimate DecreasedL, Platelet Morphology Normal, Polychromasia 1+, Hypochromasia 1+, Anisocytosis 2+, Sodium Level 150H, Potassium Level 3.4L, Chloride Level 118H, Carbon Dioxide Level 23, Anion Gap 9, Blood Urea Nitrogen 28H, Creatinine 1.6H, Estimat Glomerular Filtration Rate 33.1, Glucose Level 220H, Calcium Level 9.4, Total Bilirubin 5.8H, Direct Bilirubin 4.0H, Aspartate Amino Transf (AST/SGOT) 75H, Alanine Aminotransferase (ALT/SGPT) 350H, Alkaline Phosphatase 463H, Total Protein 5.1L, Albumin 2.3L, Globulin 2.8, Albumin/Globulin Ratio 0.8L Height (Feet): 5 Height (Inches): 1.00 Weight (Pounds): 251 Respiratory/Chest: no respiratory distress Abdomen: non tender Michael Kelley MD Oct 19, 2018 21:08
--- NOTE | 2018-10-19 21:30 | NUR ---
NURSE NOTES:Diuresing 700 ml, of joselito colored urine.
--- NOTE | 2018-10-19 22:00 | NUR ---
NURSE NOTES: at bedside- updated with pts condition-verbalized understanding.
[2018-10-20] VITALS (7 sets, daily range): BP systolic 137–144; BP diastolic 63–77
[2018-10-20] MEDS: Metoclopramide 10mg/2ml Inj IVP SCH ×5 (00:14→23:12)
[2018-10-20] MEDS: Albuterol/Ipratropium 3ml neb HHN SCH ×5 (03:24→22:48)
--- NOTE | 2018-10-20 03:30 | NUR ---
NURSE NOTES:Pt on SR Bp stable afebrile- Sleeping well at this time. No discomfort noted.
--- NOTE | 2018-10-20 04:00 | NUR ---
NURSE NOTES:Complete bathe with bed changed done.
[2018-10-20 05:55] LABS: HEMOGLOBIN 9.3 G/DL (12.0-16.0); MEAN CORPUSCULAR VOLUME 97 FL (80-99); PLATELET COUNT 75 K/UL (150-450); RED BLOOD COUNT 2.98 M/UL (4.20-5.40); RED CELL DISTRIBUTION WIDTH 21.3 % (11.6-14.8); WHITE BLOOD COUNT 12.9 K/UL (4.8-10.8)
--- NOTE | 2018-10-20 06:00 | NUR ---
NURSE NOTES:No resp. distress noted vss.
[2018-10-20] MEDS: NovoLOG Insulin Flexpen SUBQ SCH ×4 (06:20→21:03)
[2018-10-20 06:50] LABS: ALANINE AMINOTRANSFERASE 276 U/L (12-78); ALBUMIN 2.4 G/DL (3.4-5.0); ALBUMIN/GLOBULIN RATIO 0.8 (1.0-2.7); ALKALINE PHOSPHATASE 410 U/L (46-116); ANION GAP 9 mmol/L (5-15); ASPARTATE AMINO TRANSFERASE 60 U/L (15-37); BILIRUBIN,TOTAL 6.6 MG/DL (0.2-1.0); BLOOD UREA NITROGEN 22 mg/dL (7-18); CARBON DIOXIDE 23 MMOL/L (21-32); CHLORIDE 117 MMOL/L (98-107); CREATININE 1.3 MG/DL (0.55-1.30); POTASSIUM 3.5 MMOL/L (3.5-5.1); SODIUM 149 MMOL/L (136-145)
[2018-10-20 07:03] LABS: BILIRUBIN,DIRECT 4.5 MG/DL (0.0-0.3)
--- NOTE | 2018-10-20 07:31 | NUR ---
HAND-OFF: Report given to Krista PIERCE.
--- NOTE | 2018-10-20 07:31 | NUR ---
NURSE NOTES: Received patient from KARI Flannery. Patient VS stable at this time with no sign of acute distress. Patient denies pain at this time. Patient is Turkmen speaking and confused. Patient showing low sinus tachycardia on the monitor. Patient on NC 3L at this time. Patient coughing a small amount at this time. Will continue to monitor and deep suction as needed. Will deep suction as little as possible due to patient's low platelet count and evidence of oral bleeding. Patient has an NGT in the left nares that is set to low intermittent suction at this time. Medication okay to go through NGT. Patient has a rectal tube that is patent, asymptomatic and draining. Patient on bilateral soft wrist restraints. Patient placed on restraints after being witnessed pulling out her NG tube. Patient has sacral redness that is covered with skin barrier film and optifoam. Patient has left upper arm PICC that is patent, asymptomatic, and running D5W at 75mL/hr. Patient arms and legs edematous and pitting +2 at this time. Patient skin appears jaundice at this time and the sclera of her eyes is tinted yellow. Doctor's are aware. Patient bed in low position with bed alarm on and call light in reach at this time.
[2018-10-20] MEDS: Amiodarone 200mg tab NG SCH (08:47)
[2018-10-20] MEDS: Lactulose 20gm/30ml UDC NG SCH ×3 (08:47→18:24)
[2018-10-20] MEDS: Pantoprazole Inj IVP SCH ×2 (08:47→21:03)
--- NOTE | 2018-10-20 12:32 | Nephrology Progress Note ---
Assessment/Plan Problem List: (1) JONNATHAN (acute kidney injury) Assessment: resolving (2) Shock liver (3) Septic shock (4) Respiratory disorder with ventilator dependence Assessment - Acute Oliguric Renal Failure Cr down to 1.6 - Respiratory disorder with ventilator dependence - Septic shock , Leukocytosis - Pneumonia - Liver cirrhosis - Obese - Anemia . Plan transfused 2 units previously down on IV fluid K IV as needed Hemodynamic support Pulmunary support Monitor renal parameters avoid nephrotoxics as best as possible per orders discussed with RN Subjective ROS Limited/Unobtainable: No Constitutional: Reports: malaise, weakness Objective Objective Last 24 Hour Vital Signs Date Time Temp Pulse Resp B/P (MAP) Pulse Ox O2 Delivery O2 Flow Rate FiO2 10/20/18 12:00 Nasal Cannula 3.0 10/20/18 12:00 98.2 108 22 144/75 (98) 99 10/20/18 11:06 109 18 98 Nasal Cannula 2.0 28 10/20/18 10:33 106 20 97 Nasal Cannula 3.0 32 10/20/18 08:00 106 10/20/18 08:00 98.1 108 22 140/67 (91) 98 10/20/18 08:00 Nasal Cannula 3.0 10/20/18 07:15 108 20 99 Nasal Cannula 3.0 32 10/20/18 06:53 99 20 Nasal Cannula 3.0 32 10/20/18 06:51 Nasal Cannula 3.0 32 10/20/18 06:51 108 20 99 Nasal Cannula 3.0 32 10/20/18 06:51 99 Nasal Cannula 3.0 32 10/20/18 04:00 104 10/20/18 04:00 Nasal Cannula 2.0 10/20/18 04:00 98.8 104 20 143/63 (89) 98 10/20/18 03:24 107 20 98 Nasal Cannula 3.0 32 10/20/18 03:24 108 20 99 Nasal Cannula 3.0 32 10/20/18 00:00 Nasal Cannula 2.0 10/20/18 00:00 98.1 109 22 138/69 (92) 97 10/19/18 23:59 108 20 98 Nasal Cannula 3.0 32 10/19/18 23:50 111 20 99 Nasal Cannula 3.0 32 10/19/18 20:00 98.2 98 24 138/80 (99) 98 10/19/18 20:00 Nasal Cannula 2.0 10/19/18 20:00 107 10/19/18 19:51 96 Nasal Cannula 3.0 32 10/19/18 19:51 108 20 97 Nasal Cannula 3.0 32 10/19/18 19:51 Nasal Cannula 3.0 32 10/19/18 19:41 107 18 96 Nasal Cannula 3.0 32 10/19/18 16:00 104 10/19/18 16:00 97.8 103 21 130/69 (89) 98 10/19/18 16:00 Nasal Cannula 2.0 10/19/18 15:29 Nasal Cannula 3.0 32 10/19/18 15:29 Nasal Cannula 3.0 32 Intake and Output 10/19/18 10/20/18 19:00 07:00 Intake Total 1225 ml 825 ml Output Total 1000 ml 2270 ml Balance 225 ml -1445 ml IV Total 1225 ml 825 ml Output Urine Total 800 ml 1400 ml Stool Total 150 ml 490 ml Gastric Drainage Total 50 ml 380 ml Laboratory Tests 10/20/18 04:10: White Blood Count 12.9H, Red Blood Count 2.98L, Hemoglobin 9.3L, Hematocrit 29.0L, Mean Corpuscular Volume 97, Mean Corpuscular Hemoglobin 31.4H, Mean Corpuscular Hemoglobin Concent 32.2, Red Cell Distribution Width 21.3H, Platelet Count 75L, Mean Platelet Volume 5.4L, Neutrophils (%) (Auto) , Lymphocytes (%) (Auto) , Monocytes (%) (Auto) , Eosinophils (%) (Auto) , Basophils (%) (Auto) 10/20/18 04:55: Sodium Level 149H, Potassium Level 3.5, Chloride Level 117H, Carbon Dioxide Level 23, Anion Gap 9, Blood Urea Nitrogen 22H, Creatinine 1.3, Estimat Glomerular Filtration Rate 42.1, Glucose Level 177H, Calcium Level 10.0, Total Bilirubin 6.6H, Direct Bilirubin 4.5H, Aspartate Amino Transf (AST/SGOT) 60H, Alanine Aminotransferase (ALT/SGPT) 276H, Alkaline Phosphatase 410H, Total Protein 5.6L, Albumin 2.4L, Globulin 3.2, Albumin/Globulin Ratio 0.8L Height (Feet): 5 Height (Inches): 1.00 Weight (Pounds): 250 General Appearance: no apparent distress, lethargic EENT: other - NGT Cardiovascular: tachycardia Respiratory/Chest: decreased breath sounds Abdomen: distended Objective NO CHANGE Alex Cuteo MD Oct 20, 2018 12:32
--- NOTE | 2018-10-20 13:33 | Pulmonology Progress Note ---
Assessment/Plan Assessment/Plan Pulmonary Progress Note Assessment/Plan ASSESSMENT: The patient is a 58-year-old female with a history of obesity, diabetes, hypertension, hyperlipidemia, and sciatica with chronic low back pain , DDD/DJD, presenting after a mechanical fall with altered mental status and confusion with likely sepsis and multisystem organ failure. PROBLEM LIST: 1. VDRF, EXTUBATED 10/16/18 2. Sepsis 3. Shock, hypovolemic and distributive. 4. Multisystem organ failure. 5. Lactic acidosis. 6. Anion gap metabolic acidosis. 7. JONNATHAN - BETTER 7. Abnormal LFTs, likely shock liver. 8. Abnormal troponin, likely demand ischemia. 9. Elevated D-dimer and PASP concerning for an acute PE 10. Obesity. 11. Diabetes. 12. Hypertension. 13. Chronic low back pain and sciatica. 14. Anemia/FOBT + 15. Thrombocytopenia 16. AFcRVR now in NSR 17. HyperNa TREATMENT PLAN: 1. Optimize pulmonary hygiene/mobilize as tolerated 2. Titrate down FiO2 to keep SaO2 < 90% 3. Observe off Abx per ID 4. D5W@75, lasix 20 IV x 1 + albumin 25 gm 25% 6. SSI, monitor BS 7. Follow up cards recs 8. GI and surgery recs, F/U CT AP, NGT to LIS, NPO, ENDOSCOPY? 9. VQ scan when able or CT-A if renal function better 10. DVT prophylaxis: hep held 2/2 thrombocytopenia, ? HIT Ab panel 11. FC Subjective Allergies: Coded Allergies: No Known Allergies (Unverified , 05/06/18) Subjective AFVSS on 3L Failed VSS NGT placed, high residuals Diffusely edematous + cough no SOB no F/C Objective Vital Signs Noted General Appearance: no acute distress, cachetic, other HEENT: normocephalic, atraumatic, anicteric, mucous membranes moist Respiratory/Chest: crackles/rales Cardiovascular: normal peripheral pulses, normal rate, regular rhythm Abdomen: normal bowel sounds, soft, non tender, no organomegaly, non distended , no mass Extremities: no cyanosis, no clubbing, other - 2+ MAREK Laboratory Tests 10/19/18 04:15: White Blood Count 15.4H, Red Blood Count 2.86L, Hemoglobin 8.8L, Hematocrit 27.1L, Mean Corpuscular Volume 95, Mean Corpuscular Hemoglobin 30.7, Mean Corpuscular Hemoglobin Concent 32.4, Red Cell Distribution Width 19.6H, Platelet Count 54L, Mean Platelet Volume 5.9L, Neutrophils (%) (Auto) , Lymphocytes (%) (Auto) , Monocytes (%) (Auto) , Eosinophils (%) (Auto) , Basophils (%) (Auto) , Differential Total Cells Counted 100, Neutrophils % ( Manual) 81H, Lymphocytes % (Manual) 9L, Monocytes % (Manual) 8, Eosinophils % ( Manual) 0, Basophils % (Manual) 2, Band Neutrophils 0, Platelet Estimate DecreasedL, Platelet Morphology Normal, Polychromasia 1+, Hypochromasia 1+, Anisocytosis 2+, Sodium Level 150H, Potassium Level 3.4L, Chloride Level 118H, Carbon Dioxide Level 23, Anion Gap 9, Blood Urea Nitrogen 28H, Creatinine 1.6H, Estimat Glomerular Filtration Rate 33.1, Glucose Level 220H, Calcium Level 9.4, Total Bilirubin 5.8H, Direct Bilirubin 4.0H, Aspartate Amino Transf (AST/SGOT) 75H, Alanine Aminotransferase (ALT/SGPT) 350H, Alkaline Phosphatase 463H, Total Protein 5.1L, Albumin 2.3L, Globulin 2.8, Albumin/Globulin Ratio 0.8L Current Medications Medications (Trade) Dose Ordered Sig/Patricia Route PRN Reason Start Time Stop Time Status Last Admin Dose Admin Acetaminophen (Tylenol) 650 mg Q4H PRN ORAL Mild Pain/Temp > 100.5 10/17/18 15:00 11/08/18 14:59 Albuterol/ Ipratropium (Albuterol/ Ipratropium) 3 ml Q4HRT HHN 10/17/18 15:00 10/22/18 10:59 10/19/18 11:27 Amiodarone HCl (Cordarone) 200 mg DAILY NG 10/18/18 09:00 11/12/18 20:59 10/19/18 09:31 Chlorhexidine Gluconate (Nguyen-Hex 2%) 1 applic DAILY@2000 TOPIC 10/17/18 20:00 11/09/18 19:59 10/18/18 21:18 Dextrose 1,000 ml @ 75 mls/hr [id number] IV 10/19/18 13:30 11/18/18 13:29 10/19/18 14:02 Dextrose (Dextrose 50%) 25 ml Q30M PRN IV Hypoglycemia 10/17/18 14:45 11/10/18 13:44 Dextrose (Dextrose 50%) 50 ml Q30M PRN IV Hypoglycemia 10/17/18 14:45 11/10/18 13:44 Digoxin (Lanoxin) 0.125 mg QOD NG 10/19/18 09:00 11/15/18 08:59 10/19/18 09:31 Diphenhydramine HCl (Benadryl) 25 mg Q6H PRN IVP Itching 10/17/18 14:30 11/08/18 14:29 Insulin Aspart (NovoLOG) BEFORE MEALS AND HS SUBQ 10/17/18 16:30 11/10/18 16:29 10/19/18 16:59 Lactulose (Cephulac) 30 gm THREE TIMES A DAY NG 10/17/18 18:00 11/12/18 17:59 10/19/18 18:39 Metoclopramide HCl (Reglan) 5 mg Q6H IVP 10/17/18 17:30 11/13/18 11:29 10/19/18 18:39 Midazolam HCl (Versed 2mg/2ml vial) 1 mg Q2H PRN IVP For Anxiety 10/17/18 14:30 11/11/18 14:29 Pantoprazole (Protonix) 40 mg EVERY 12 HOURS IVP 10/17/18 21:00 11/09/18 20:59 10/19/18 09:30 Rifaximin (Xifaxan) 550 mg EVERY 12 HOURS ORAL 10/17/18 21:00 10/26/18 20:59 10/19/18 09:36 Subjective ROS Limited/Unobtainable: No Allergies: Coded Allergies: No Known Allergies (Unverified , 05/06/18) Objective Last 24 Hour Vital Signs Date Time Temp Pulse Resp B/P (MAP) Pulse Ox O2 Delivery O2 Flow Rate FiO2 10/20/18 12:00 Nasal Cannula 3.0 10/20/18 12:00 105 10/20/18 12:00 98.2 108 22 144/75 (98) 99 10/20/18 11:06 109 18 98 Nasal Cannula 2.0 28 10/20/18 10:33 106 20 97 Nasal Cannula 3.0 32 10/20/18 08:00 106 10/20/18 08:00 98.1 108 22 140/67 (91) 98 10/20/18 08:00 Nasal Cannula 3.0 10/20/18 07:15 108 20 99 Nasal Cannula 3.0 32 10/20/18 06:53 99 20 Nasal Cannula 3.0 32 10/20/18 06:51 Nasal Cannula 3.0 32 10/20/18 06:51 108 20 99 Nasal Cannula 3.0 32 10/20/18 06:51 99 Nasal Cannula 3.0 32 10/20/18 04:00 104 10/20/18 04:00 Nasal Cannula 2.0 10/20/18 04:00 98.8 104 20 143/63 (89) 98 10/20/18 03:24 107 20 98 Nasal Cannula 3.0 32 10/20/18 03:24 108 20 99 Nasal Cannula 3.0 32 10/20/18 00:00 Nasal Cannula 2.0 10/20/18 00:00 98.1 109 22 138/69 (92) 97 10/19/18 23:59 108 20 98 Nasal Cannula 3.0 32 10/19/18 23:50 111 20 99 Nasal Cannula 3.0 32 10/19/18 20:00 98.2 98 24 138/80 (99) 98 10/19/18 20:00 Nasal Cannula 2.0 10/19/18 20:00 107 10/19/18 19:51 96 Nasal Cannula 3.0 32 10/19/18 19:51 108 20 97 Nasal Cannula 3.0 32 10/19/18 19:51 Nasal Cannula 3.0 32 10/19/18 19:41 107 18 96 Nasal Cannula 3.0 32 10/19/18 16:00 104 10/19/18 16:00 97.8 103 21 130/69 (89) 98 10/19/18 16:00 Nasal Cannula 2.0 10/19/18 15:29 Nasal Cannula 3.0 32 10/19/18 15:29 Nasal Cannula 3.0 32 Intake and Output 10/19/18 10/20/18 19:00 07:00 Intake Total 1225 ml 825 ml Output Total 1000 ml 2270 ml Balance 225 ml -1445 ml IV Total 1225 ml 825 ml Output Urine Total 800 ml 1400 ml Stool Total 150 ml 490 ml Gastric Drainage Total 50 ml 380 ml Laboratory Tests 10/20/18 04:10: White Blood Count 12.9H, Red Blood Count 2.98L, Hemoglobin 9.3L, Hematocrit 29.0L, Mean Corpuscular Volume 97, Mean Corpuscular Hemoglobin 31.4H, Mean Corpuscular Hemoglobin Concent 32.2, Red Cell Distribution Width 21.3H, Platelet Count 75L, Mean Platelet Volume 5.4L, Neutrophils (%) (Auto) , Lymphocytes (%) (Auto) , Monocytes (%) (Auto) , Eosinophils (%) (Auto) , Basophils (%) (Auto) 10/20/18 04:55: Sodium Level 149H, Potassium Level 3.5, Chloride Level 117H, Carbon Dioxide Level 23, Anion Gap 9, Blood Urea Nitrogen 22H, Creatinine 1.3, Estimat Glomerular Filtration Rate 42.1, Glucose Level 177H, Calcium Level 10.0, Total Bilirubin 6.6H, Direct Bilirubin 4.5H, Aspartate Amino Transf (AST/SGOT) 60H, Alanine Aminotransferase (ALT/SGPT) 276H, Alkaline Phosphatase 410H, Total Protein 5.6L, Albumin 2.4L, Globulin 3.2, Albumin/Globulin Ratio 0.8L Current Medications Medications (Trade) Dose Ordered Sig/Patricia Route PRN Reason Start Time Stop Time Status Last Admin Dose Admin Acetaminophen (Tylenol) 650 mg Q4H PRN ORAL Mild Pain/Temp > 100.5 10/17/18 15:00 11/08/18 14:59 Albuterol/ Ipratropium (Albuterol/ Ipratropium) 3 ml Q4HRT HHN 10/17/18 15:00 10/22/18 10:59 10/20/18 10:33 Amiodarone HCl (Cordarone) 200 mg DAILY NG 10/18/18 09:00 11/12/18 20:59 10/20/18 08:47 Chlorhexidine Gluconate (Nguyen-Hex 2%) 1 applic DAILY@2000 TOPIC 10/17/18 20:00 11/09/18 19:59 10/19/18 20:02 Dextrose 1,000 ml @ 75 mls/hr [id number] IV 10/19/18 13:30 11/18/18 13:29 10/20/18 05:12 Dextrose (Dextrose 50%) 25 ml Q30M PRN IV Hypoglycemia 10/17/18 14:45 11/10/18 13:44 Dextrose (Dextrose 50%) 50 ml Q30M PRN IV Hypoglycemia 10/17/18 14:45 11/10/18 13:44 Digoxin (Lanoxin) 0.125 mg QOD NG 10/19/18 09:00 11/15/18 08:59 10/19/18 09:31 Diphenhydramine HCl (Benadryl) 25 mg Q6H PRN IVP Itching 10/17/18 14:30 11/08/18 14:29 Insulin Aspart (NovoLOG) BEFORE MEALS AND HS SUBQ 10/17/18 16:30 11/10/18 16:29 10/20/18 11:30 Lactulose (Cephulac) 30 gm THREE TIMES A DAY NG 10/17/18 18:00 11/12/18 17:59 10/20/18 12:58 Metoclopramide HCl (Reglan) 5 mg Q6H IVP 10/17/18 17:30 11/13/18 11:29 10/20/18 11:27 Midazolam HCl (Versed 2mg/2ml vial) 1 mg Q2H PRN IVP For Anxiety 10/17/18 14:30 11/11/18 14:29 Pantoprazole (Protonix) 40 mg EVERY 12 HOURS IVP 10/17/18 21:00 11/09/18 20:59 10/20/18 08:47 Rifaximin (Xifaxan) 550 mg EVERY 12 HOURS ORAL 10/17/18 21:00 10/26/18 20:59 10/20/18 08:47 Vishnu Jurado MD Oct 20, 2018 13:33
--- NOTE | 2018-10-20 14:53 | Surgery Progress Note ---
Surgery Progress Note Subjective Additional Comments CT noted. no obstruction. worsening ascites. lft's / liver function worse. Objective Last 24 Hour Vital Signs Date Time Temp Pulse Resp B/P (MAP) Pulse Ox O2 Delivery O2 Flow Rate FiO2 10/20/18 12:00 Nasal Cannula 3.0 10/20/18 12:00 105 10/20/18 12:00 98.2 108 22 144/75 (98) 99 10/20/18 11:06 109 18 98 Nasal Cannula 2.0 28 10/20/18 10:33 106 20 97 Nasal Cannula 3.0 32 10/20/18 08:00 106 10/20/18 08:00 98.1 108 22 140/67 (91) 98 10/20/18 08:00 Nasal Cannula 3.0 10/20/18 07:15 108 20 99 Nasal Cannula 3.0 32 10/20/18 06:53 99 20 Nasal Cannula 3.0 32 10/20/18 06:51 Nasal Cannula 3.0 32 10/20/18 06:51 108 20 99 Nasal Cannula 3.0 32 10/20/18 06:51 99 Nasal Cannula 3.0 32 10/20/18 04:00 104 10/20/18 04:00 Nasal Cannula 2.0 10/20/18 04:00 98.8 104 20 143/63 (89) 98 10/20/18 03:24 107 20 98 Nasal Cannula 3.0 32 10/20/18 03:24 108 20 99 Nasal Cannula 3.0 32 10/20/18 00:00 Nasal Cannula 2.0 10/20/18 00:00 98.1 109 22 138/69 (92) 97 10/19/18 23:59 108 20 98 Nasal Cannula 3.0 32 10/19/18 23:50 111 20 99 Nasal Cannula 3.0 32 10/19/18 20:00 98.2 98 24 138/80 (99) 98 10/19/18 20:00 Nasal Cannula 2.0 10/19/18 20:00 107 10/19/18 19:51 96 Nasal Cannula 3.0 32 10/19/18 19:51 108 20 97 Nasal Cannula 3.0 32 10/19/18 19:51 Nasal Cannula 3.0 32 10/19/18 19:41 107 18 96 Nasal Cannula 3.0 32 10/19/18 16:00 104 10/19/18 16:00 97.8 103 21 130/69 (89) 98 10/19/18 16:00 Nasal Cannula 2.0 10/19/18 15:29 Nasal Cannula 3.0 32 10/19/18 15:29 Nasal Cannula 3.0 32 I&O Intake and Output 10/19/18 10/20/18 19:00 07:00 Intake Total 1225 ml 825 ml Output Total 1000 ml 2270 ml Balance 225 ml -1445 ml IV Total 1225 ml 825 ml Output Urine Total 800 ml 1400 ml Stool Total 150 ml 490 ml Gastric Drainage Total 50 ml 380 ml Dressing: other Wound: other Drains: other Cardiovascular: RSR Respiratory: clear, decreased breath sounds Abdomen: soft, non-tender, decreased bowel sounds Extremities: no tenderness, no cyanosis Laboratory Tests Test 10/20/18 04:10 10/20/18 04:55 White Blood Count 12.9 K/UL (4.8-10.8) H Red Blood Count 2.98 M/UL (4.20-5.40) L Hemoglobin 9.3 G/DL (12.0-16.0) L Hematocrit 29.0 % (37.0-47.0) L Mean Corpuscular Volume 97 FL (80-99) Mean Corpuscular Hemoglobin 31.4 PG (27.0-31.0) H Mean Corpuscular Hemoglobin Concent 32.2 G/DL (32.0-36.0) Red Cell Distribution Width 21.3 % (11.6-14.8) H Platelet Count 75 K/UL (150-450) L Mean Platelet Volume 5.4 FL (6.5-10.1) L Neutrophils (%) (Auto) % (45.0-75.0) Lymphocytes (%) (Auto) % (20.0-45.0) Monocytes (%) (Auto) % (1.0-10.0) Eosinophils (%) (Auto) % (0.0-3.0) Basophils (%) (Auto) % (0.0-2.0) Sodium Level 149 MMOL/L (136-145) H Potassium Level 3.5 MMOL/L (3.5-5.1) Chloride Level 117 MMOL/L (98-107) H Carbon Dioxide Level 23 MMOL/L (21-32) Anion Gap 9 mmol/L (5-15) Blood Urea Nitrogen 22 mg/dL (7-18) H Creatinine 1.3 MG/DL (0.55-1.30) Estimat Glomerular Filtration Rate 42.1 mL/min (>60) Glucose Level 177 MG/DL (74-106) H Calcium Level 10.0 MG/DL (8.5-10.1) Total Bilirubin 6.6 MG/DL (0.2-1.0) H Direct Bilirubin 4.5 MG/DL (0.0-0.3) H Aspartate Amino Transf (AST/SGOT) 60 U/L (15-37) H Alanine Aminotransferase (ALT/SGPT) 276 U/L (12-78) H Alkaline Phosphatase 410 U/L (46-116) H Total Protein 5.6 G/DL (6.4-8.2) L Albumin 2.4 G/DL (3.4-5.0) L Globulin 3.2 g/dL Albumin/Globulin Ratio 0.8 (1.0-2.7) L Plan Problems: (1) Multiple injuries due to trauma (2) Sepsis Assessment & Plan: Labs noted lactic acidosis improved with resuscitation CT findings: Limited assessment of the GI tract, due to lack of enteric contrast administration. Exam is also limited due to patient motion artifact and lack of IV contrast administration Evidence of hepatic cirrhosis Small amount of ascites, likely related to the above Surgically absent gallbladder Bilateral basilar pulmonary parenchymal atelectatic changes and possible patchy consolidation Minimal edema of the bilateral flank subcutaneous fat Other findings as noted, including degenerative spondylosis, right hepatic lobe capsular calcification, Quiroz catheter has made a great improvement. denies abd pain. labs improved. decompensated liver cirrhosis LFT's abnormal leukocytosis overall improved but prognosis still guarded Limited assessment of the GI tract, due to lack of enteric contrast administration Abdominal ascites, increased in extent since prior study Increased edema of the subcutaneous fat, since previous study Hepatic surface nodularity, consistent with cirrhosis, also previously reported Borderline splenomegaly Bilateral basilar pulmonary patchy consolidation and atelectasis as well as some congestion. Findings as noted, including degenerative spondylosis, PICC, Quiroz catheter, rectal tube, nasogastric tube -NG tube -NPO Consider tap again as ascites worse -iv fluids -iv abx -trend labs will follow with recs thank you (3) Liver cirrhosis Josh Samuel 9, 2019 14:53
--- NOTE | 2018-10-20 15:58 | Cardiac Electrophysiology PN ---
Assessment/Plan Assessment/Plan 1. Atrial fib with RVR. Off Beta janet or CA janet for hypotension. On Dig 0.125 qod and amiodarone 200 daily. In SR 2. S/P Septic shock. On broad spectrum IV antibiotic. 3. Troponin leak. The levels are flat and likely due to this patient's sepsis and septic shock. Her echocardiogram showed ejection fraction 60% to 65% and EKG showed no acute ischemic changes. 4. S/P Respiratory failure, Extubated 5. Diabetes. 6. Renal failure. 7. Morbid obesity. 8. Failed Swallow eval. NG tube in DW RN Subjective Subjective In restraints.NG to suction. In SR, RN at bedside. Objective Last 24 Hour Vital Signs Date Time Temp Pulse Resp B/P (MAP) Pulse Ox O2 Delivery O2 Flow Rate FiO2 10/20/18 12:00 Nasal Cannula 3.0 10/20/18 12:00 105 10/20/18 12:00 98.2 108 22 144/75 (98) 99 10/20/18 11:06 109 18 98 Nasal Cannula 2.0 28 10/20/18 10:33 106 20 97 Nasal Cannula 3.0 32 10/20/18 08:00 106 10/20/18 08:00 98.1 108 22 140/67 (91) 98 10/20/18 08:00 Nasal Cannula 3.0 10/20/18 07:15 108 20 99 Nasal Cannula 3.0 32 10/20/18 06:53 99 20 Nasal Cannula 3.0 32 10/20/18 06:51 Nasal Cannula 3.0 32 10/20/18 06:51 108 20 99 Nasal Cannula 3.0 32 10/20/18 06:51 99 Nasal Cannula 3.0 32 10/20/18 04:00 104 10/20/18 04:00 Nasal Cannula 2.0 10/20/18 04:00 98.8 104 20 143/63 (89) 98 10/20/18 03:24 107 20 98 Nasal Cannula 3.0 32 10/20/18 03:24 108 20 99 Nasal Cannula 3.0 32 10/20/18 00:00 Nasal Cannula 2.0 10/20/18 00:00 98.1 109 22 138/69 (92) 97 10/19/18 23:59 108 20 98 Nasal Cannula 3.0 32 10/19/18 23:50 111 20 99 Nasal Cannula 3.0 32 10/19/18 20:00 98.2 98 24 138/80 (99) 98 10/19/18 20:00 Nasal Cannula 2.0 10/19/18 20:00 107 10/19/18 19:51 96 Nasal Cannula 3.0 32 10/19/18 19:51 108 20 97 Nasal Cannula 3.0 32 10/19/18 19:51 Nasal Cannula 3.0 32 10/19/18 19:41 107 18 96 Nasal Cannula 3.0 32 10/19/18 16:00 104 10/19/18 16:00 97.8 103 21 130/69 (89) 98 10/19/18 16:00 Nasal Cannula 2.0 Intake and Output 10/19/18 10/20/18 19:00 07:00 Intake Total 1225 ml 825 ml Output Total 1000 ml 2270 ml Balance 225 ml -1445 ml IV Total 1225 ml 825 ml Output Urine Total 800 ml 1400 ml Stool Total 150 ml 490 ml Gastric Drainage Total 50 ml 380 ml Laboratory Tests Test 10/20/18 04:10 10/20/18 04:55 White Blood Count 12.9 K/UL (4.8-10.8) H Red Blood Count 2.98 M/UL (4.20-5.40) L Hemoglobin 9.3 G/DL (12.0-16.0) L Hematocrit 29.0 % (37.0-47.0) L Mean Corpuscular Volume 97 FL (80-99) Mean Corpuscular Hemoglobin 31.4 PG (27.0-31.0) H Mean Corpuscular Hemoglobin Concent 32.2 G/DL (32.0-36.0) Red Cell Distribution Width 21.3 % (11.6-14.8) H Platelet Count 75 K/UL (150-450) L Mean Platelet Volume 5.4 FL (6.5-10.1) L Neutrophils (%) (Auto) % (45.0-75.0) Lymphocytes (%) (Auto) % (20.0-45.0) Monocytes (%) (Auto) % (1.0-10.0) Eosinophils (%) (Auto) % (0.0-3.0) Basophils (%) (Auto) % (0.0-2.0) Sodium Level 149 MMOL/L (136-145) H Potassium Level 3.5 MMOL/L (3.5-5.1) Chloride Level 117 MMOL/L (98-107) H Carbon Dioxide Level 23 MMOL/L (21-32) Anion Gap 9 mmol/L (5-15) Blood Urea Nitrogen 22 mg/dL (7-18) H Creatinine 1.3 MG/DL (0.55-1.30) Estimat Glomerular Filtration Rate 42.1 mL/min (>60) Glucose Level 177 MG/DL (74-106) H Calcium Level 10.0 MG/DL (8.5-10.1) Total Bilirubin 6.6 MG/DL (0.2-1.0) H Direct Bilirubin 4.5 MG/DL (0.0-0.3) H Aspartate Amino Transf (AST/SGOT) 60 U/L (15-37) H Alanine Aminotransferase (ALT/SGPT) 276 U/L (12-78) H Alkaline Phosphatase 410 U/L (46-116) H Total Protein 5.6 G/DL (6.4-8.2) L Albumin 2.4 G/DL (3.4-5.0) L Globulin 3.2 g/dL Albumin/Globulin Ratio 0.8 (1.0-2.7) L Objective HEAD AND NECK: No JVD. NG tube in LUNGS: Coarse rhonchi. CARDIOVASCULAR: Regular S1, S2 with no gallop or murmur. ABDOMEN: Obese. EXTREMITIES: No pitting edema. Sean Montanez MD Oct 20, 2018 15:58
--- NOTE | 2018-10-20 16:53 | General Progress Note ---
Assessment/Plan Problem List: (1) Hypotension ICD Codes: I95.9 - Hypotension, unspecified SNOMED: 00084414 (2) Hyperglycemia ICD Codes: R73.9 - Hyperglycemia, unspecified SNOMED: 45411307 (3) Dyspnea ICD Codes: R06.00 - Dyspnea, unspecified SNOMED: 924126963 (4) Hypoxemia ICD Codes: R09.02 - Hypoxemia SNOMED: 222543469 (5) Contusion of left knee ICD Codes: S80.02XA - Contusion of left knee, initial encounter SNOMED: 57249550 (6) Sepsis ICD Codes: A41.9 - Sepsis, unspecified organism SNOMED: 42902789 (7) Septic shock ICD Codes: A41.9 - Sepsis, unspecified organism; R65.21 - Severe sepsis with septic shock SNOMED: 11797072 (8) Liver cirrhosis ICD Codes: K74.60 - Unspecified cirrhosis of liver SNOMED: 58802839 (9) Pneumonia ICD Codes: J18.9 - Pneumonia, unspecified organism SNOMED: 407133744 (10) Respiratory disorder with ventilator dependence ICD Codes: J98.9 - Respiratory disorder, unspecified; Z99.11 - Dependence on respirator [ventilator] status SNOMED: 16683474, 688865255 (11) Shock liver ICD Codes: K72.00 - Acute and subacute hepatic failure without coma SNOMED: 969574816 Status: progressing Assessment/Plan shock liver abx per id no wheezing reviewed labs and chart cihrrosis sepsis obesity morbid pna Subjective ROS Limited/Unobtainable: Yes Allergies: Coded Allergies: No Known Allergies (Unverified , 05/06/18) Objective Last 24 Hour Vital Signs Date Time Temp Pulse Resp B/P (MAP) Pulse Ox O2 Delivery O2 Flow Rate FiO2 10/20/18 16:00 100 10/20/18 16:00 Nasal Cannula 3.0 10/20/18 16:00 98.2 102 22 142/68 (92) 98 10/20/18 12:00 Nasal Cannula 3.0 10/20/18 12:00 105 10/20/18 12:00 98.2 108 22 144/75 (98) 99 10/20/18 11:06 109 18 98 Nasal Cannula 2.0 28 10/20/18 10:33 106 20 97 Nasal Cannula 3.0 32 10/20/18 08:00 106 10/20/18 08:00 98.1 108 22 140/67 (91) 98 10/20/18 08:00 Nasal Cannula 3.0 10/20/18 07:15 108 20 99 Nasal Cannula 3.0 32 10/20/18 06:53 99 20 Nasal Cannula 3.0 32 10/20/18 06:51 Nasal Cannula 3.0 32 10/20/18 06:51 108 20 99 Nasal Cannula 3.0 32 10/20/18 06:51 99 Nasal Cannula 3.0 32 10/20/18 04:00 104 10/20/18 04:00 Nasal Cannula 2.0 10/20/18 04:00 98.8 104 20 143/63 (89) 98 10/20/18 03:24 107 20 98 Nasal Cannula 3.0 32 10/20/18 03:24 108 20 99 Nasal Cannula 3.0 32 10/20/18 00:00 Nasal Cannula 2.0 10/20/18 00:00 98.1 109 22 138/69 (92) 97 10/19/18 23:59 108 20 98 Nasal Cannula 3.0 32 10/19/18 23:50 111 20 99 Nasal Cannula 3.0 32 10/19/18 20:00 98.2 98 24 138/80 (99) 98 10/19/18 20:00 Nasal Cannula 2.0 10/19/18 20:00 107 10/19/18 19:51 96 Nasal Cannula 3.0 32 10/19/18 19:51 108 20 97 Nasal Cannula 3.0 32 10/19/18 19:51 Nasal Cannula 3.0 32 10/19/18 19:41 107 18 96 Nasal Cannula 3.0 32 Intake and Output 10/19/18 10/20/18 19:00 07:00 Intake Total 1225 ml 825 ml Output Total 1000 ml 2270 ml Balance 225 ml -1445 ml IV Total 1225 ml 825 ml Output Urine Total 800 ml 1400 ml Stool Total 150 ml 490 ml Gastric Drainage Total 50 ml 380 ml Laboratory Tests 10/20/18 04:10: White Blood Count 12.9H, Red Blood Count 2.98L, Hemoglobin 9.3L, Hematocrit 29.0L, Mean Corpuscular Volume 97, Mean Corpuscular Hemoglobin 31.4H, Mean Corpuscular Hemoglobin Concent 32.2, Red Cell Distribution Width 21.3H, Platelet Count 75L, Mean Platelet Volume 5.4L, Neutrophils (%) (Auto) , Lymphocytes (%) (Auto) , Monocytes (%) (Auto) , Eosinophils (%) (Auto) , Basophils (%) (Auto) 10/20/18 04:55: Sodium Level 149H, Potassium Level 3.5, Chloride Level 117H, Carbon Dioxide Level 23, Anion Gap 9, Blood Urea Nitrogen 22H, Creatinine 1.3, Estimat Glomerular Filtration Rate 42.1, Glucose Level 177H, Calcium Level 10.0, Total Bilirubin 6.6H, Direct Bilirubin 4.5H, Aspartate Amino Transf (AST/SGOT) 60H, Alanine Aminotransferase (ALT/SGPT) 276H, Alkaline Phosphatase 410H, Total Protein 5.6L, Albumin 2.4L, Globulin 3.2, Albumin/Globulin Ratio 0.8L Height (Feet): 5 Height (Inches): 1.00 Weight (Pounds): 250 Cardiovascular: regular rhythm Respiratory/Chest: lungs clear Abdomen: soft Michael Kelley MD Oct 20, 2018 16:53
--- NOTE | 2018-10-20 19:30 | NUR ---
HAND-OFF: Report given to KARI Lopez. Patient VS stable at this time with no sign of acute distress.
--- NOTE | 2018-10-20 19:30 | NUR ---
NURSE NOTES: Received patient from KARI Velasco. Will continue plan of care.
[2018-10-20] MEDS ORDERED: Tubing IV Secondary IV ONE (19:55)
[2018-10-20] MEDS ORDERED: NS 275ml ONE (19:55)
[2018-10-20] MEDS: Dyna-Hex 2% Top Sol 2oz TOPIC SCH (21:03)
--- NOTE | 2018-10-20 22:14 | General Progress Note ---
Assessment/Plan Assessment/Plan Assessment/Plan Problems: (1) Shock liver ICD Codes: K72.00 - Acute and subacute hepatic failure without coma SNOMED: 799653944 (2) Liver cirrhosis ICD Codes: K74.60 - Unspecified cirrhosis of liver SNOMED: 30918619 (3) Septic shock ICD Codes: A41.9 - Sepsis, unspecified organism; R65.21 - Severe sepsis with septic shock SNOMED: 02251987 (4) Sepsis ICD Codes: A41.9 - Sepsis, unspecified organism SNOMED: 18920166 (5) Respiratory disorder with ventilator dependence ICD Codes: J98.9 - Respiratory disorder, unspecified; Z99.11 - Dependence on respirator [ventilator] status SNOMED: 39323520, 765445515 (6) Normocytic anemia ICD Codes: D64.9 - Anemia, unspecified SNOMED: 911218468 Status: unchanged Assessment/Plan Maintain n.p.o. plus IV fluids ppi BID monitor H&H fu LFTS>> improving work up for elevated CEA when more stable lasix and albumin combination xifaxan and lactulose reglan atc Caution with Amiodarone use given liver disease, ? alternative Rx fu JAD,SMA,AMA Follow labs will need repeat paracentesis Subjective Allergies: Coded Allergies: No Known Allergies (Unverified , 05/06/18) Subjective debilitated woman minimally communicative Objective Last 24 Hour Vital Signs Date Time Temp Pulse Resp B/P (MAP) Pulse Ox O2 Delivery O2 Flow Rate FiO2 10/20/18 20:00 Nasal Cannula 3.0 10/20/18 20:00 98.1 102 28 137/77 (97) 99 10/20/18 19:34 104 10/20/18 19:28 104 20 99 Nasal Cannula 3.0 32 10/20/18 19:20 96 Nasal Cannula 3.0 32 10/20/18 19:20 Nasal Cannula 3.0 32 10/20/18 19:18 102 22 96 Nasal Cannula 3.0 32 10/20/18 16:00 100 10/20/18 16:00 Nasal Cannula 3.0 10/20/18 16:00 98.2 102 22 142/68 (92) 98 10/20/18 12:00 Nasal Cannula 3.0 10/20/18 12:00 105 10/20/18 12:00 98.2 108 22 144/75 (98) 99 10/20/18 11:06 109 18 98 Nasal Cannula 2.0 28 10/20/18 10:33 106 20 97 Nasal Cannula 3.0 32 10/20/18 08:00 106 10/20/18 08:00 98.1 108 22 140/67 (91) 98 10/20/18 08:00 Nasal Cannula 3.0 10/20/18 07:15 108 20 99 Nasal Cannula 3.0 32 10/20/18 06:53 99 20 Nasal Cannula 3.0 32 10/20/18 06:51 Nasal Cannula 3.0 32 10/20/18 06:51 108 20 99 Nasal Cannula 3.0 32 10/20/18 06:51 99 Nasal Cannula 3.0 32 10/20/18 04:00 104 10/20/18 04:00 Nasal Cannula 2.0 10/20/18 04:00 98.8 104 20 143/63 (89) 98 10/20/18 03:24 107 20 98 Nasal Cannula 3.0 32 10/20/18 03:24 108 20 99 Nasal Cannula 3.0 32 10/20/18 00:00 Nasal Cannula 2.0 10/20/18 00:00 98.1 109 22 138/69 (92) 97 10/19/18 23:59 108 20 98 Nasal Cannula 3.0 32 10/19/18 23:50 111 20 99 Nasal Cannula 3.0 32 Intake and Output 10/19/18 10/20/18 19:00 07:00 Intake Total 1225 ml 825 ml Output Total 1000 ml 2270 ml Balance 225 ml -1445 ml IV Total 1225 ml 825 ml Output Urine Total 800 ml 1400 ml Stool Total 150 ml 490 ml Gastric Drainage Total 50 ml 380 ml Laboratory Tests 10/20/18 04:10: White Blood Count 12.9H, Red Blood Count 2.98L, Hemoglobin 9.3L, Hematocrit 29.0L, Mean Corpuscular Volume 97, Mean Corpuscular Hemoglobin 31.4H, Mean Corpuscular Hemoglobin Concent 32.2, Red Cell Distribution Width 21.3H, Platelet Count 75L, Mean Platelet Volume 5.4L, Neutrophils (%) (Auto) , Lymphocytes (%) (Auto) , Monocytes (%) (Auto) , Eosinophils (%) (Auto) , Basophils (%) (Auto) 3/9/19 04:55: Sodium Level 149H, Potassium Level 3.5, Chloride Level 117H, Carbon Dioxide Level 23, Anion Gap 9, Blood Urea Nitrogen 22H, Creatinine 1.3, Estimat Glomerular Filtration Rate 42.1, Glucose Level 177H, Calcium Level 10.0, Total Bilirubin 6.6H, Direct Bilirubin 4.5H, Aspartate Amino Transf (AST/SGOT) 60H, Alanine Aminotransferase (ALT/SGPT) 276H, Alkaline Phosphatase 410H, Total Protein 5.6L, Albumin 2.4L, Globulin 3.2, Albumin/Globulin Ratio 0.8L Height (Feet): 5 Height (Inches): 1.00 Weight (Pounds): 250 Objective Obese L woman restrained NCAT, (+) icteric supple Coarse BS RR abd distended, dull to percussion (++) edema Kiah Poe MD Oct 20, 2018 22:14
[2018-10-21] VITALS: BP 140/77
[2018-10-21] MEDS: Albuterol/Ipratropium 3ml neb HHN SCH ×6 (03:05→23:44)
[2018-10-21 04:00] VITALS: BP 140/75
[2018-10-21] MEDS: Metoclopramide 10mg/2ml Inj IVP SCH ×4 (05:52→23:20)
[2018-10-21] MEDS: NovoLOG Insulin Flexpen SUBQ SCH ×4 (05:53→20:46)
[2018-10-21 06:38] LABS: HEMATOCRIT 26.2 % (37.0-47.0); HEMOGLOBIN 8.5 G/DL (12.0-16.0); MEAN CORPUSCULAR VOLUME 96 FL (80-99); PLATELET COUNT 92 K/UL (150-450); RED BLOOD COUNT 2.73 M/UL (4.20-5.40); RED CELL DISTRIBUTION WIDTH 20.8 % (11.6-14.8); WHITE BLOOD COUNT 12.2 K/UL (4.8-10.8)
[2018-10-21 06:42] LABS: INR 1.5 (0.9-1.1)
--- NOTE | 2018-10-21 07:04 | NUR ---
HAND-OFF: Report given to KARI Velasco.
--- NOTE | 2018-10-21 07:05 | NUR ---
NURSE NOTES: Received patient from KARI Lopez. Patient VS stable at this time with no sign of acute distress. Patient had an episode of V tach, less than a minute during the night when patient was being cleaned. Will notify Dr Montanez this morning. Patient denies pain at this time. Patient is Turkish speaking and confused. Patient showing low sinus tachycardia on the monitor. Patient on NC 3L at this time. Patient coughing a small amount at this time. Will continue to monitor and deep suction as needed. Will deep suction as little as possible due to patient's low platelet count and evidence of oral bleeding. Patient has an NGT in the left nares that is set to low intermittent suction at this time. Medication okay to go through NGT per doctor's order. Patient has a rectal tube that is patent, asymptomatic and draining. Patient on bilateral soft wrist restraints. Patient placed on restraints after being witnessed pulling out her NG tube. Patient has sacral redness that is covered with skin barrier film and optifoam. Patient has left upper arm PICC that is patent, asymptomatic, and running D5W at 75mL/hr. Patient arms and legs edematous and pitting +2 at this time. Patient skin appears jaundice at this time and the sclera of her eyes is tinted yellow. Patient ammonia level is still high at 81 this morning. Will make sure that Doctor is aware. Patient taking lactulose. Patient sodium 151 this morning and K 3.4. Will notify Dr Cueto. Patient bed in low position with bed alarm on and call light in reach at this time.
[2018-10-21 07:06] LABS: ALANINE AMINOTRANSFERASE 213 U/L (12-78); ALBUMIN 2.3 G/DL (3.4-5.0); ALBUMIN/GLOBULIN RATIO 0.7 (1.0-2.7); ALKALINE PHOSPHATASE 390 U/L (46-116); ANION GAP 9 mmol/L (5-15); ASPARTATE AMINO TRANSFERASE 61 U/L (15-37); BLOOD UREA NITROGEN 16 mg/dL (7-18); CALCIUM 10.2 MG/DL (8.5-10.1); CARBON DIOXIDE 25 MMOL/L (21-32); CHLORIDE 117 MMOL/L (98-107); CREATININE 1.1 MG/DL (0.55-1.30); POTASSIUM 3.2 MMOL/L (3.5-5.1); SODIUM 151 MMOL/L (136-145)
[2018-10-21 07:08] LABS: BILIRUBIN,DIRECT 5.1 MG/DL (0.0-0.3)
[2018-10-21 07:14] LABS: AMMONIA 81 umol/L (11-32)
[2018-10-21 08:00] VITALS: BP 132/76
[2018-10-21 09:35] LABS: PHOSPHORUS 3.1 MG/DL (2.5-4.9)
[2018-10-21] MEDS: Amiodarone 200mg tab NG SCH (10:22)
[2018-10-21] MEDS: Pantoprazole Inj IVP SCH ×2 (10:22→20:45)
[2018-10-21] MEDS: Lactulose 20gm/30ml UDC NG SCH ×3 (10:22→17:40)
[2018-10-21] MEDS: Digoxin 0.125mg tab NG SCH (10:22)
--- NOTE | 2018-10-21 10:49 | Infectious Diseases Prog Note ---
Assessment/Plan Assessment/Plan A: 1. Septic Shock resolved.culture are negative so far 2. aspiration pneumonia. 3. acute renal failure improving 4. Diabetes mellitus. 5. Obesity. 6. Lactic acidosis. 7. Anemia.s/p transfusion 8. Cirrhosis with ascites 9. Enteritis, ileus resolved 10. Leukocytosis improving 11. 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 Subjective ROS Limited/Unobtainable: Yes Neurologic: Reports: confusion, other - on restraint Allergies: Coded Allergies: No Known Allergies (Unverified , 05/06/18) Objective Vital Signs Last 24 Hour Vital Signs Date Time Temp Pulse Resp B/P (MAP) Pulse Ox O2 Delivery O2 Flow Rate FiO2 10/21/18 10:22 99 10/21/18 07:28 98 18 100 Nasal Cannula 2.0 28 10/21/18 07:19 97 Nasal Cannula 2.0 28 10/21/18 07:19 99 17 97 Nasal Cannula 2.0 28 10/21/18 07:19 Nasal Cannula 2.0 28 10/21/18 04:00 98.2 101 20 140/75 (96) 100 10/21/18 04:00 Nasal Cannula 3.0 10/21/18 03:36 104 10/21/18 03:14 99 20 100 Nasal Cannula 2.0 28 10/21/18 03:06 101 20 98 Nasal Cannula 3.0 32 10/21/18 00:00 97.5 102 20 140/77 (98) 100 10/21/18 00:00 Nasal Cannula 3.0 10/20/18 23:38 103 10/20/18 22:58 102 20 100 Nasal Cannula 2.0 28 10/20/18 22:49 99 20 97 Nasal Cannula 3.0 32 10/20/18 20:00 Nasal Cannula 3.0 10/20/18 20:00 98.1 102 28 137/77 (97) 99 10/20/18 19:34 104 10/20/18 19:28 104 20 99 Nasal Cannula 3.0 32 10/20/18 19:20 96 Nasal Cannula 3.0 32 10/20/18 19:20 Nasal Cannula 3.0 32 10/20/18 19:18 102 22 96 Nasal Cannula 3.0 32 10/20/18 16:00 100 10/20/18 16:00 Nasal Cannula 3.0 10/20/18 16:00 98.2 102 22 142/68 (92) 98 10/20/18 12:00 Nasal Cannula 3.0 10/20/18 12:00 105 10/20/18 12:00 98.2 108 22 144/75 (98) 99 10/20/18 11:06 109 18 98 Nasal Cannula 2.0 28 Height (Feet): 5 Height (Inches): 1.00 Weight (Pounds): 250 General Appearance: no acute distress HEENT: mucous membranes moist Respiratory/Chest: lungs clear Cardiovascular: normal rate, other - left arm PICC line Abdomen: soft, non tender, other - NG tbe & rectal tube, ascites Extremities: other - generalized edema Neurologic/Psychiatric: other - lethargic Laboratory Tests Test 10/21/18 05:00 White Blood Count 12.2 K/UL (4.8-10.8) H Red Blood Count 2.73 M/UL (4.20-5.40) L Hemoglobin 8.5 G/DL (12.0-16.0) L Hematocrit 26.2 % (37.0-47.0) L Mean Corpuscular Volume 96 FL (80-99) Mean Corpuscular Hemoglobin 31.3 PG (27.0-31.0) H Mean Corpuscular Hemoglobin Concent 32.6 G/DL (32.0-36.0) Red Cell Distribution Width 20.8 % (11.6-14.8) H Platelet Count 92 K/UL (150-450) L Mean Platelet Volume 6.6 FL (6.5-10.1) Neutrophils (%) (Auto) % (45.0-75.0) Lymphocytes (%) (Auto) % (20.0-45.0) Monocytes (%) (Auto) % (1.0-10.0) Eosinophils (%) (Auto) % (0.0-3.0) Basophils (%) (Auto) % (0.0-2.0) Differential Total Cells Counted 100 Neutrophils % (Manual) 85 % (45-75) H Lymphocytes % (Manual) 7 % (20-45) L Monocytes % (Manual) 5 % (1-10) Eosinophils % (Manual) 3 % (0-3) Basophils % (Manual) 0 % (0-2) Band Neutrophils 0 % (0-8) Platelet Estimate Decreased L Platelet Morphology Normal Hypochromasia 1+ Anisocytosis 2+ Prothrombin Time 15.8 SEC (9.30-11.50) H Prothromb Time International Ratio 1.5 (0.9-1.1) H Sodium Level 151 MMOL/L (136-145) H Potassium Level 3.2 MMOL/L (3.5-5.1) L Chloride Level 117 MMOL/L (98-107) H Carbon Dioxide Level 25 MMOL/L (21-32) Anion Gap 9 mmol/L (5-15) Blood Urea Nitrogen 16 mg/dL (7-18) Creatinine 1.1 MG/DL (0.55-1.30) Estimat Glomerular Filtration Rate 51.0 mL/min (>60) Glucose Level 184 MG/DL (74-106) H Calcium Level 10.2 MG/DL (8.5-10.1) H Phosphorus Level 3.1 MG/DL (2.5-4.9) Magnesium Level 1.5 MG/DL (1.8-2.4) L Total Bilirubin 7.0 MG/DL (0.2-1.0) H Direct Bilirubin 5.1 MG/DL (0.0-0.3) H Aspartate Amino Transf (AST/SGOT) 61 U/L (15-37) H Alanine Aminotransferase (ALT/SGPT) 213 U/L (12-78) H Alkaline Phosphatase 390 U/L (46-116) H Ammonia 81 umol/L (11-32) H Total Protein 5.5 G/DL (6.4-8.2) L Albumin 2.3 G/DL (3.4-5.0) L Globulin 3.2 g/dL Albumin/Globulin Ratio 0.7 (1.0-2.7) L Current Medications Medications (Trade) Dose Ordered Sig/Patricia Route PRN Reason Start Time Stop Time Status Last Admin Dose Admin Acetaminophen (Tylenol) 650 mg Q4H PRN ORAL Mild Pain/Temp > 100.5 10/17/18 15:00 11/08/18 14:59 Albuterol/ Ipratropium (Albuterol/ Ipratropium) 3 ml Q4HRT HHN 10/17/18 15:00 10/22/18 10:59 10/21/18 07:19 Amiodarone HCl (Cordarone) 200 mg DAILY NG 10/18/18 09:00 11/12/18 20:59 10/21/18 10:22 Chlorhexidine Gluconate (Nguyen-Hex 2%) 1 applic DAILY@2000 TOPIC 10/17/18 20:00 11/09/18 19:59 10/20/18 21:03 Dextrose 1,000 ml @ 75 mls/hr [id number] IV 10/19/18 13:30 11/18/18 13:29 10/21/18 05:52 Dextrose (Dextrose 50%) 25 ml Q30M PRN IV Hypoglycemia 10/17/18 14:45 11/10/18 13:44 Dextrose (Dextrose 50%) 50 ml Q30M PRN IV Hypoglycemia 10/17/18 14:45 11/10/18 13:44 Digoxin (Lanoxin) 0.125 mg QOD NG 10/19/18 09:00 11/15/18 08:59 10/21/18 10:22 Diphenhydramine HCl (Benadryl) 25 mg Q6H PRN IVP Itching 10/17/18 14:30 11/08/18 14:29 Insulin Aspart (NovoLOG) BEFORE MEALS AND HS SUBQ 10/17/18 16:30 11/10/18 16:29 10/21/18 05:53 Lactulose (Cephulac) 30 gm THREE TIMES A DAY NG 10/17/18 18:00 11/12/18 17:59 10/21/18 10:22 Metoclopramide HCl (Reglan) 5 mg Q6H IVP 10/17/18 17:30 11/13/18 11:29 10/21/18 05:52 Midazolam HCl (Versed 2mg/2ml vial) 1 mg Q2H PRN IVP For Anxiety 10/17/18 14:30 11/11/18 14:29 Pantoprazole (Protonix) 40 mg EVERY 12 HOURS IVP 10/17/18 21:00 11/09/18 20:59 10/21/18 10:22 Potassium Chloride 100 ml @ 100 mls/hr Q1HR IVPB 10/21/18 10:00 10/21/18 13:59 10/21/18 10:23 Rifaximin (Xifaxan) 550 mg EVERY 12 HOURS ORAL 10/17/18 21:00 10/26/18 20:59 10/21/18 10:22 Wesley Akers MD Oct 21, 2018 10:49
--- NOTE | 2018-10-21 11:30 | NUR ---
NURSE NOTES: Notified Dr Montanez regarding patient's episode of V. Tach last night while she was being cleaned. No new orders at this time.
[2018-10-21 12:00] VITALS: BP 153/84
--- NOTE | 2018-10-21 12:59 | Nephrology Progress Note ---
Assessment/Plan Problem List: (1) JONNATHAN (acute kidney injury) Assessment: resolving (2) Shock liver (3) Septic shock (4) Respiratory disorder with ventilator dependence Assessment - Acute Oliguric Renal Failure Cr down to 1.6 - Respiratory disorder with ventilator dependence - Septic shock , Leukocytosis - Pneumonia - Liver cirrhosis - Obese - Anemia . Plan transfused 2 units previously down on IV fluid K and Phos IV as needed Hemodynamic support Pulmunary support Monitor renal parameters avoid nephrotoxics as best as possible per orders discussed with RN Subjective ROS Limited/Unobtainable: No Constitutional: Reports: malaise Objective Objective Last 24 Hour Vital Signs Date Time Temp Pulse Resp B/P (MAP) Pulse Ox O2 Delivery O2 Flow Rate FiO2 10/21/18 12:00 Nasal Cannula 3.0 10/21/18 12:00 97.5 104 22 153/84 (107) 97 10/21/18 10:58 98 20 97 Nasal Cannula 2.0 28 10/21/18 10:48 97 18 97 Nasal Cannula 2.0 28 10/21/18 10:22 99 10/21/18 08:00 Nasal Cannula 3.0 10/21/18 08:00 97.9 101 20 132/76 (94) 97 10/21/18 08:00 99 10/21/18 07:28 98 18 100 Nasal Cannula 2.0 28 10/21/18 07:19 97 Nasal Cannula 2.0 28 10/21/18 07:19 99 17 97 Nasal Cannula 2.0 28 10/21/18 07:19 Nasal Cannula 2.0 28 10/21/18 04:00 98.2 101 20 140/75 (96) 100 10/21/18 04:00 Nasal Cannula 3.0 10/21/18 03:36 104 10/21/18 03:14 99 20 100 Nasal Cannula 2.0 28 10/21/18 03:06 101 20 98 Nasal Cannula 3.0 32 10/21/18 00:00 97.5 102 20 140/77 (98) 100 10/21/18 00:00 Nasal Cannula 3.0 10/20/18 23:38 103 10/20/18 22:58 102 20 100 Nasal Cannula 2.0 28 10/20/18 22:49 99 20 97 Nasal Cannula 3.0 32 10/20/18 20:00 Nasal Cannula 3.0 10/20/18 20:00 98.1 102 28 137/77 (97) 99 10/20/18 19:34 104 10/20/18 19:28 104 20 99 Nasal Cannula 3.0 32 10/20/18 19:20 96 Nasal Cannula 3.0 32 10/20/18 19:20 Nasal Cannula 3.0 32 10/20/18 19:18 102 22 96 Nasal Cannula 3.0 32 10/20/18 16:00 100 10/20/18 16:00 Nasal Cannula 3.0 10/20/18 16:00 98.2 102 22 142/68 (92) 98 Intake and Output 10/20/18 10/21/18 19:00 07:00 Intake Total 825 ml 835 ml Output Total 2230 ml 1150 ml Balance -1405 ml -315 ml IV Total 825 ml 835 ml Output Urine Total 900 ml 500 ml Stool Total 600 ml 400 ml Gastric Drainage Total 730 ml 250 ml Laboratory Tests 10/21/18 05:00: White Blood Count 12.2H, Red Blood Count 2.73L, Hemoglobin 8.5L, Hematocrit 26.2L, Mean Corpuscular Volume 96, Mean Corpuscular Hemoglobin 31.3H, Mean Corpuscular Hemoglobin Concent 32.6, Red Cell Distribution Width 20.8H, Platelet Count 92L, Mean Platelet Volume 6.6, Neutrophils (%) (Auto) , Lymphocytes (%) (Auto) , Monocytes (%) (Auto) , Eosinophils (%) (Auto) , Basophils (%) (Auto) , Differential Total Cells Counted 100, Neutrophils % ( Manual) 85H, Lymphocytes % (Manual) 7L, Monocytes % (Manual) 5, Eosinophils % ( Manual) 3, Basophils % (Manual) 0, Band Neutrophils 0, Platelet Estimate DecreasedL, Platelet Morphology Normal, Hypochromasia 1+, Anisocytosis 2+, Prothrombin Time 15.8H, Prothromb Time International Ratio 1.5H, Sodium Level 151H, Potassium Level 3.2L, Chloride Level 117H, Carbon Dioxide Level 25, Anion Gap 9, Blood Urea Nitrogen 16, Creatinine 1.1, Estimat Glomerular Filtration Rate 51.0, Glucose Level 184H, Calcium Level 10.2H, Phosphorus Level 3.1, Magnesium Level 1.5L, Total Bilirubin 7.0H, Direct Bilirubin 5.1H, Aspartate Amino Transf (AST/SGOT) 61H, Alanine Aminotransferase (ALT/SGPT) 213H, Alkaline Phosphatase 390H, Ammonia 81H, Total Protein 5.5L, Albumin 2.3L, Globulin 3.2, Albumin/Globulin Ratio 0.7L Height (Feet): 5 Height (Inches): 1.00 Weight (Pounds): 250 General Appearance: no apparent distress, lethargic EENT: other - NGT Cardiovascular: tachycardia Respiratory/Chest: decreased breath sounds Abdomen: distended Objective NO CHANGE Alex Cueto MD Oct 21, 2018 12:59
--- NOTE | 2018-10-21 14:22 | Pulmonology Progress Note ---
Assessment/Plan Assessment/Plan Pulmonary Progress Note Assessment/Plan ASSESSMENT: The patient is a 58-year-old female with a history of obesity, diabetes, hypertension, hyperlipidemia, and sciatica with chronic low back pain , DDD/DJD, presenting after a mechanical fall with altered mental status and confusion with likely sepsis and multisystem organ failure. PROBLEM LIST: 1. VDRF, EXTUBATED 10/16/18 2. Sepsis 3. Shock, hypovolemic and distributive. 4. Multisystem organ failure. 5. Lactic acidosis. 6. Anion gap metabolic acidosis. 7. JONNATHAN - BETTER 7. Abnormal LFTs, likely shock liver. 8. Abnormal troponin, likely demand ischemia. 9. Elevated D-dimer and PASP concerning for an acute PE 10. Obesity. 11. Diabetes. 12. Hypertension. 13. Chronic low back pain and sciatica. 14. Anemia/FOBT + 15. Thrombocytopenia 16. AFcRVR now in NSR 17. HyperNa TREATMENT PLAN: 1. Optimize pulmonary hygiene/mobilize as tolerated 2. Titrate down FiO2 to keep SaO2 < 90% 3. Observe off Abx per ID 4. D5W@75, lasix 20 IV x 1 + albumin 25 gm 25% 6. SSI, monitor BS 7. Follow up cards recs 8. GI and surgery recs, F/U CT AP, NGT to LIS, NPO, ENDOSCOPY? 9. VQ scan when able or CT-A if renal function better 10. DVT prophylaxis: hep held 2/2 thrombocytopenia, ? HIT Ab panel 11. FC Subjective Allergies: Coded Allergies: No Known Allergies (Unverified , 05/06/18) Subjective AFVSS on 3L Failed VSS NGT placed, high residuals Diffusely edematous + cough no SOB no F/C Objective Vital Signs Noted General Appearance: no acute distress, cachetic, other HEENT: normocephalic, atraumatic, anicteric, mucous membranes moist Respiratory/Chest: crackles/rales Cardiovascular: normal peripheral pulses, normal rate, regular rhythm Abdomen: normal bowel sounds, soft, non tender, no organomegaly, non distended , no mass Extremities: no cyanosis, no clubbing, other - 2+ MAREK Laboratory Tests 10/19/18 04:15: White Blood Count 15.4H, Red Blood Count 2.86L, Hemoglobin 8.8L, Hematocrit 27.1L, Mean Corpuscular Volume 95, Mean Corpuscular Hemoglobin 30.7, Mean Corpuscular Hemoglobin Concent 32.4, Red Cell Distribution Width 19.6H, Platelet Count 54L, Mean Platelet Volume 5.9L, Neutrophils (%) (Auto) , Lymphocytes (%) (Auto) , Monocytes (%) (Auto) , Eosinophils (%) (Auto) , Basophils (%) (Auto) , Differential Total Cells Counted 100, Neutrophils % ( Manual) 81H, Lymphocytes % (Manual) 9L, Monocytes % (Manual) 8, Eosinophils % ( Manual) 0, Basophils % (Manual) 2, Band Neutrophils 0, Platelet Estimate DecreasedL, Platelet Morphology Normal, Polychromasia 1+, Hypochromasia 1+, Anisocytosis 2+, Sodium Level 150H, Potassium Level 3.4L, Chloride Level 118H, Carbon Dioxide Level 23, Anion Gap 9, Blood Urea Nitrogen 28H, Creatinine 1.6H, Estimat Glomerular Filtration Rate 33.1, Glucose Level 220H, Calcium Level 9.4, Total Bilirubin 5.8H, Direct Bilirubin 4.0H, Aspartate Amino Transf (AST/SGOT) 75H, Alanine Aminotransferase (ALT/SGPT) 350H, Alkaline Phosphatase 463H, Total Protein 5.1L, Albumin 2.3L, Globulin 2.8, Albumin/Globulin Ratio 0.8L Current Medications Medications (Trade) Dose Ordered Sig/Patricia Route PRN Reason Start Time Stop Time Status Last Admin Dose Admin Acetaminophen (Tylenol) 650 mg Q4H PRN ORAL Mild Pain/Temp > 100.5 10/17/18 15:00 11/08/18 14:59 Albuterol/ Ipratropium (Albuterol/ Ipratropium) 3 ml Q4HRT HHN 10/17/18 15:00 10/22/18 10:59 10/19/18 11:27 Amiodarone HCl (Cordarone) 200 mg DAILY NG 10/18/18 09:00 11/12/18 20:59 10/19/18 09:31 Chlorhexidine Gluconate (Nguyen-Hex 2%) 1 applic DAILY@2000 TOPIC 10/17/18 20:00 11/09/18 19:59 10/18/18 21:18 Dextrose 1,000 ml @ 75 mls/hr [id number] IV 10/19/18 13:30 11/18/18 13:29 10/19/18 14:02 Dextrose (Dextrose 50%) 25 ml Q30M PRN IV Hypoglycemia 10/17/18 14:45 11/10/18 13:44 Dextrose (Dextrose 50%) 50 ml Q30M PRN IV Hypoglycemia 10/17/18 14:45 11/10/18 13:44 Digoxin (Lanoxin) 0.125 mg QOD NG 10/19/18 09:00 11/15/18 08:59 10/19/18 09:31 Diphenhydramine HCl (Benadryl) 25 mg Q6H PRN IVP Itching 10/17/18 14:30 11/08/18 14:29 Insulin Aspart (NovoLOG) BEFORE MEALS AND HS SUBQ 10/17/18 16:30 11/10/18 16:29 10/19/18 16:59 Lactulose (Cephulac) 30 gm THREE TIMES A DAY NG 10/17/18 18:00 11/12/18 17:59 10/19/18 18:39 Metoclopramide HCl (Reglan) 5 mg Q6H IVP 10/17/18 17:30 11/13/18 11:29 10/19/18 18:39 Midazolam HCl (Versed 2mg/2ml vial) 1 mg Q2H PRN IVP For Anxiety 10/17/18 14:30 11/11/18 14:29 Pantoprazole (Protonix) 40 mg EVERY 12 HOURS IVP 10/17/18 21:00 11/09/18 20:59 10/19/18 09:30 Rifaximin (Xifaxan) 550 mg EVERY 12 HOURS ORAL 10/17/18 21:00 10/26/18 20:59 10/19/18 09:36 Subjective ROS Limited/Unobtainable: No Allergies: Coded Allergies: No Known Allergies (Unverified , 05/06/18) Objective Last 24 Hour Vital Signs Date Time Temp Pulse Resp B/P (MAP) Pulse Ox O2 Delivery O2 Flow Rate FiO2 10/21/18 12:00 Nasal Cannula 3.0 10/21/18 12:00 97.5 104 22 153/84 (107) 97 10/21/18 10:58 98 20 97 Nasal Cannula 2.0 28 10/21/18 10:48 97 18 97 Nasal Cannula 2.0 28 10/21/18 10:22 99 10/21/18 08:00 Nasal Cannula 3.0 10/21/18 08:00 97.9 101 20 132/76 (94) 97 10/21/18 08:00 99 10/21/18 07:28 98 18 100 Nasal Cannula 2.0 28 10/21/18 07:19 97 Nasal Cannula 2.0 28 10/21/18 07:19 99 17 97 Nasal Cannula 2.0 28 10/21/18 07:19 Nasal Cannula 2.0 28 10/21/18 04:00 98.2 101 20 140/75 (96) 100 10/21/18 04:00 Nasal Cannula 3.0 10/21/18 03:36 104 10/21/18 03:14 99 20 100 Nasal Cannula 2.0 28 10/21/18 03:06 101 20 98 Nasal Cannula 3.0 32 10/21/18 00:00 97.5 102 20 140/77 (98) 100 10/21/18 00:00 Nasal Cannula 3.0 10/20/18 23:38 103 10/20/18 22:58 102 20 100 Nasal Cannula 2.0 28 10/20/18 22:49 99 20 97 Nasal Cannula 3.0 32 10/20/18 20:00 Nasal Cannula 3.0 10/20/18 20:00 98.1 102 28 137/77 (97) 99 10/20/18 19:34 104 10/20/18 19:28 104 20 99 Nasal Cannula 3.0 32 10/20/18 19:20 96 Nasal Cannula 3.0 32 10/20/18 19:20 Nasal Cannula 3.0 32 10/20/18 19:18 102 22 96 Nasal Cannula 3.0 32 10/20/18 16:00 100 10/20/18 16:00 Nasal Cannula 3.0 10/20/18 16:00 98.2 102 22 142/68 (92) 98 Intake and Output 10/20/18 10/21/18 19:00 07:00 Intake Total 825 ml 835 ml Output Total 2230 ml 1150 ml Balance -1405 ml -315 ml IV Total 825 ml 835 ml Output Urine Total 900 ml 500 ml Stool Total 600 ml 400 ml Gastric Drainage Total 730 ml 250 ml Laboratory Tests 10/21/18 05:00: White Blood Count 12.2H, Red Blood Count 2.73L, Hemoglobin 8.5L, Hematocrit 26.2L, Mean Corpuscular Volume 96, Mean Corpuscular Hemoglobin 31.3H, Mean Corpuscular Hemoglobin Concent 32.6, Red Cell Distribution Width 20.8H, Platelet Count 92L, Mean Platelet Volume 6.6, Neutrophils (%) (Auto) , Lymphocytes (%) (Auto) , Monocytes (%) (Auto) , Eosinophils (%) (Auto) , Basophils (%) (Auto) , Differential Total Cells Counted 100, Neutrophils % ( Manual) 85H, Lymphocytes % (Manual) 7L, Monocytes % (Manual) 5, Eosinophils % ( Manual) 3, Basophils % (Manual) 0, Band Neutrophils 0, Platelet Estimate DecreasedL, Platelet Morphology Normal, Hypochromasia 1+, Anisocytosis 2+, Prothrombin Time 15.8H, Prothromb Time International Ratio 1.5H, Sodium Level 151H, Potassium Level 3.2L, Chloride Level 117H, Carbon Dioxide Level 25, Anion Gap 9, Blood Urea Nitrogen 16, Creatinine 1.1, Estimat Glomerular Filtration Rate 51.0, Glucose Level 184H, Calcium Level 10.2H, Phosphorus Level 3.1, Magnesium Level 1.5L, Total Bilirubin 7.0H, Direct Bilirubin 5.1H, Aspartate Amino Transf (AST/SGOT) 61H, Alanine Aminotransferase (ALT/SGPT) 213H, Alkaline Phosphatase 390H, Ammonia 81H, C-Reactive Protein, Quantitative 7.9H, Total Protein 5.5L, Albumin 2.3L, Globulin 3.2, Albumin/Globulin Ratio 0.7L Current Medications Medications (Trade) Dose Ordered Sig/Patricia Route PRN Reason Start Time Stop Time Status Last Admin Dose Admin Acetaminophen (Tylenol) 650 mg Q4H PRN ORAL Mild Pain/Temp > 100.5 10/17/18 15:00 11/08/18 14:59 Albuterol/ Ipratropium (Albuterol/ Ipratropium) 3 ml Q4HRT HHN 10/17/18 15:00 10/22/18 10:59 10/21/18 10:48 Amiodarone HCl (Cordarone) 200 mg DAILY NG 10/18/18 09:00 11/12/18 20:59 10/21/18 10:22 Chlorhexidine Gluconate (Nguyen-Hex 2%) 1 applic DAILY@2000 TOPIC 10/17/18 20:00 11/09/18 19:59 10/20/18 21:03 Dextrose 1,000 ml @ 75 mls/hr [id number] IV 10/19/18 13:30 11/18/18 13:29 10/21/18 05:52 Dextrose (Dextrose 50%) 25 ml Q30M PRN IV Hypoglycemia 10/17/18 14:45 11/10/18 13:44 Dextrose (Dextrose 50%) 50 ml Q30M PRN IV Hypoglycemia 10/17/18 14:45 11/10/18 13:44 Digoxin (Lanoxin) 0.125 mg QOD NG 10/19/18 09:00 11/15/18 08:59 10/21/18 10:22 Diphenhydramine HCl (Benadryl) 25 mg Q6H PRN IVP Itching 10/17/18 14:30 11/08/18 14:29 Insulin Aspart (NovoLOG) BEFORE MEALS AND HS SUBQ 10/17/18 16:30 11/10/18 16:29 10/21/18 11:42 Lactulose (Cephulac) 30 gm THREE TIMES A DAY NG 10/17/18 18:00 11/12/18 17:59 10/21/18 13:56 Metoclopramide HCl (Reglan) 5 mg Q6H IVP 10/17/18 17:30 11/13/18 11:29 10/21/18 11:29 Midazolam HCl (Versed 2mg/2ml vial) 1 mg Q2H PRN IVP For Anxiety 10/17/18 14:30 11/11/18 14:29 Pantoprazole (Protonix) 40 mg EVERY 12 HOURS IVP 10/17/18 21:00 11/09/18 20:59 10/21/18 10:22 Rifaximin (Xifaxan) 550 mg EVERY 12 HOURS ORAL 10/17/18 21:00 10/26/18 20:59 10/21/18 10:22 Vishnu Jurado MD Oct 21, 2018 14:22
--- NOTE | 2018-10-21 14:36 | General Progress Note ---
Assessment/Plan Problem List: (1) Hypotension ICD Codes: I95.9 - Hypotension, unspecified SNOMED: 46897652 (2) Hyperglycemia ICD Codes: R73.9 - Hyperglycemia, unspecified SNOMED: 50450443 (3) Dyspnea ICD Codes: R06.00 - Dyspnea, unspecified SNOMED: 422399715 (4) Hypoxemia ICD Codes: R09.02 - Hypoxemia SNOMED: 794576407 (5) Contusion of left knee ICD Codes: S80.02XA - Contusion of left knee, initial encounter SNOMED: 26010098 (6) Sepsis ICD Codes: A41.9 - Sepsis, unspecified organism SNOMED: 36765888 (7) Septic shock ICD Codes: A41.9 - Sepsis, unspecified organism; R65.21 - Severe sepsis with septic shock SNOMED: 59390313 (8) Liver cirrhosis ICD Codes: K74.60 - Unspecified cirrhosis of liver SNOMED: 91443717 (9) Pneumonia ICD Codes: J18.9 - Pneumonia, unspecified organism SNOMED: 630110314 (10) Respiratory disorder with ventilator dependence ICD Codes: J98.9 - Respiratory disorder, unspecified; Z99.11 - Dependence on respirator [ventilator] status SNOMED: 43463313, 629154606 (11) Shock liver ICD Codes: K72.00 - Acute and subacute hepatic failure without coma SNOMED: 927844125 Status: progressing Assessment/Plan ng tube still putting out will discuss w dr price and dr lobato re ng tube output shock liver bleeding from lip stopped edema cihrrosis sepsis obesity morbid pna Subjective ROS Limited/Unobtainable: Yes Allergies: Coded Allergies: No Known Allergies (Unverified , 05/06/18) Objective Last 24 Hour Vital Signs Date Time Temp Pulse Resp B/P (MAP) Pulse Ox O2 Delivery O2 Flow Rate FiO2 10/21/18 12:00 Nasal Cannula 3.0 10/21/18 12:00 97.5 104 22 153/84 (107) 97 10/21/18 10:58 98 20 97 Nasal Cannula 2.0 28 10/21/18 10:48 97 18 97 Nasal Cannula 2.0 28 10/21/18 10:22 99 10/21/18 08:00 Nasal Cannula 3.0 10/21/18 08:00 97.9 101 20 132/76 (94) 97 10/21/18 08:00 99 10/21/18 07:28 98 18 100 Nasal Cannula 2.0 28 10/21/18 07:19 97 Nasal Cannula 2.0 28 10/21/18 07:19 99 17 97 Nasal Cannula 2.0 28 10/21/18 07:19 Nasal Cannula 2.0 28 10/21/18 04:00 98.2 101 20 140/75 (96) 100 10/21/18 04:00 Nasal Cannula 3.0 10/21/18 03:36 104 10/21/18 03:14 99 20 100 Nasal Cannula 2.0 28 10/21/18 03:06 101 20 98 Nasal Cannula 3.0 32 10/21/18 00:00 97.5 102 20 140/77 (98) 100 10/21/18 00:00 Nasal Cannula 3.0 10/20/18 23:38 103 10/20/18 22:58 102 20 100 Nasal Cannula 2.0 28 10/20/18 22:49 99 20 97 Nasal Cannula 3.0 32 10/20/18 20:00 Nasal Cannula 3.0 10/20/18 20:00 98.1 102 28 137/77 (97) 99 10/20/18 19:34 104 10/20/18 19:28 104 20 99 Nasal Cannula 3.0 32 10/20/18 19:20 96 Nasal Cannula 3.0 32 10/20/18 19:20 Nasal Cannula 3.0 32 10/20/18 19:18 102 22 96 Nasal Cannula 3.0 32 10/20/18 16:00 100 10/20/18 16:00 Nasal Cannula 3.0 10/20/18 16:00 98.2 102 22 142/68 (92) 98 Intake and Output 10/20/18 10/21/18 19:00 07:00 Intake Total 825 ml 835 ml Output Total 2230 ml 1150 ml Balance -1405 ml -315 ml IV Total 825 ml 835 ml Output Urine Total 900 ml 500 ml Stool Total 600 ml 400 ml Gastric Drainage Total 730 ml 250 ml Laboratory Tests 10/21/18 05:00: White Blood Count 12.2H, Red Blood Count 2.73L, Hemoglobin 8.5L, Hematocrit 26.2L, Mean Corpuscular Volume 96, Mean Corpuscular Hemoglobin 31.3H, Mean Corpuscular Hemoglobin Concent 32.6, Red Cell Distribution Width 20.8H, Platelet Count 92L, Mean Platelet Volume 6.6, Neutrophils (%) (Auto) , Lymphocytes (%) (Auto) , Monocytes (%) (Auto) , Eosinophils (%) (Auto) , Basophils (%) (Auto) , Differential Total Cells Counted 100, Neutrophils % ( Manual) 85H, Lymphocytes % (Manual) 7L, Monocytes % (Manual) 5, Eosinophils % ( Manual) 3, Basophils % (Manual) 0, Band Neutrophils 0, Platelet Estimate DecreasedL, Platelet Morphology Normal, Hypochromasia 1+, Anisocytosis 2+, Prothrombin Time 15.8H, Prothromb Time International Ratio 1.5H, Sodium Level 151H, Potassium Level 3.2L, Chloride Level 117H, Carbon Dioxide Level 25, Anion Gap 9, Blood Urea Nitrogen 16, Creatinine 1.1, Estimat Glomerular Filtration Rate 51.0, Glucose Level 184H, Calcium Level 10.2H, Phosphorus Level 3.1, Magnesium Level 1.5L, Total Bilirubin 7.0H, Direct Bilirubin 5.1H, Aspartate Amino Transf (AST/SGOT) 61H, Alanine Aminotransferase (ALT/SGPT) 213H, Alkaline Phosphatase 390H, Ammonia 81H, C-Reactive Protein, Quantitative 7.9H, Total Protein 5.5L, Albumin 2.3L, Globulin 3.2, Albumin/Globulin Ratio 0.7L Height (Feet): 5 Height (Inches): 1.00 Weight (Pounds): 250 Neck: supple Cardiovascular: normal rate Respiratory/Chest: lungs clear Abdomen: soft Michael Kelley MD Oct 21, 2018 14:36
--- NOTE | 2018-10-21 15:05 | Surgery Progress Note ---
Surgery Progress Note Subjective Additional Comments still with lots of NG tube output. no bowel output documented. patient alert but poor historian. Objective Last 24 Hour Vital Signs Date Time Temp Pulse Resp B/P (MAP) Pulse Ox O2 Delivery O2 Flow Rate FiO2 10/21/18 12:00 Nasal Cannula 3.0 10/21/18 12:00 97.5 104 22 153/84 (107) 97 10/21/18 10:58 98 20 97 Nasal Cannula 2.0 28 10/21/18 10:48 97 18 97 Nasal Cannula 2.0 28 10/21/18 10:22 99 10/21/18 08:00 Nasal Cannula 3.0 10/21/18 08:00 97.9 101 20 132/76 (94) 97 10/21/18 08:00 99 10/21/18 07:28 98 18 100 Nasal Cannula 2.0 28 10/21/18 07:19 97 Nasal Cannula 2.0 28 10/21/18 07:19 99 17 97 Nasal Cannula 2.0 28 10/21/18 07:19 Nasal Cannula 2.0 28 10/21/18 04:00 98.2 101 20 140/75 (96) 100 10/21/18 04:00 Nasal Cannula 3.0 10/21/18 03:36 104 10/21/18 03:14 99 20 100 Nasal Cannula 2.0 28 10/21/18 03:06 101 20 98 Nasal Cannula 3.0 32 10/21/18 00:00 97.5 102 20 140/77 (98) 100 10/21/18 00:00 Nasal Cannula 3.0 10/20/18 23:38 103 10/20/18 22:58 102 20 100 Nasal Cannula 2.0 28 10/20/18 22:49 99 20 97 Nasal Cannula 3.0 32 10/20/18 20:00 Nasal Cannula 3.0 10/20/18 20:00 98.1 102 28 137/77 (97) 99 10/20/18 19:34 104 10/20/18 19:28 104 20 99 Nasal Cannula 3.0 32 10/20/18 19:20 96 Nasal Cannula 3.0 32 10/20/18 19:20 Nasal Cannula 3.0 32 10/20/18 19:18 102 22 96 Nasal Cannula 3.0 32 10/20/18 16:00 100 10/20/18 16:00 Nasal Cannula 3.0 10/20/18 16:00 98.2 102 22 142/68 (92) 98 I&O Intake and Output 10/20/18 10/21/18 19:00 07:00 Intake Total 825 ml 835 ml Output Total 2230 ml 1150 ml Balance -1405 ml -315 ml IV Total 825 ml 835 ml Output Urine Total 900 ml 500 ml Stool Total 600 ml 400 ml Gastric Drainage Total 730 ml 250 ml Dressing: other Wound: other Drains: other Cardiovascular: RSR Respiratory: decreased breath sounds Abdomen: soft, distended, decreased bowel sounds Extremities: no cyanosis Laboratory Tests Test 10/21/18 05:00 White Blood Count 12.2 K/UL (4.8-10.8) H Red Blood Count 2.73 M/UL (4.20-5.40) L Hemoglobin 8.5 G/DL (12.0-16.0) L Hematocrit 26.2 % (37.0-47.0) L Mean Corpuscular Volume 96 FL (80-99) Mean Corpuscular Hemoglobin 31.3 PG (27.0-31.0) H Mean Corpuscular Hemoglobin Concent 32.6 G/DL (32.0-36.0) Red Cell Distribution Width 20.8 % (11.6-14.8) H Platelet Count 92 K/UL (150-450) L Mean Platelet Volume 6.6 FL (6.5-10.1) Neutrophils (%) (Auto) % (45.0-75.0) Lymphocytes (%) (Auto) % (20.0-45.0) Monocytes (%) (Auto) % (1.0-10.0) Eosinophils (%) (Auto) % (0.0-3.0) Basophils (%) (Auto) % (0.0-2.0) Differential Total Cells Counted 100 Neutrophils % (Manual) 85 % (45-75) H Lymphocytes % (Manual) 7 % (20-45) L Monocytes % (Manual) 5 % (1-10) Eosinophils % (Manual) 3 % (0-3) Basophils % (Manual) 0 % (0-2) Band Neutrophils 0 % (0-8) Platelet Estimate Decreased L Platelet Morphology Normal Hypochromasia 1+ Anisocytosis 2+ Prothrombin Time 15.8 SEC (9.30-11.50) H Prothromb Time International Ratio 1.5 (0.9-1.1) H Sodium Level 151 MMOL/L (136-145) H Potassium Level 3.2 MMOL/L (3.5-5.1) L Chloride Level 117 MMOL/L (98-107) H Carbon Dioxide Level 25 MMOL/L (21-32) Anion Gap 9 mmol/L (5-15) Blood Urea Nitrogen 16 mg/dL (7-18) Creatinine 1.1 MG/DL (0.55-1.30) Estimat Glomerular Filtration Rate 51.0 mL/min (>60) Glucose Level 184 MG/DL (74-106) H Calcium Level 10.2 MG/DL (8.5-10.1) H Phosphorus Level 3.1 MG/DL (2.5-4.9) Magnesium Level 1.5 MG/DL (1.8-2.4) L Total Bilirubin 7.0 MG/DL (0.2-1.0) H Direct Bilirubin 5.1 MG/DL (0.0-0.3) H Aspartate Amino Transf (AST/SGOT) 61 U/L (15-37) H Alanine Aminotransferase (ALT/SGPT) 213 U/L (12-78) H Alkaline Phosphatase 390 U/L (46-116) H Ammonia 81 umol/L (11-32) H C-Reactive Protein, Quantitative 7.9 mg/dL (0.00-0.90) H Total Protein 5.5 G/DL (6.4-8.2) L Albumin 2.3 G/DL (3.4-5.0) L Globulin 3.2 g/dL Albumin/Globulin Ratio 0.7 (1.0-2.7) L Plan Problems: (1) Multiple injuries due to trauma (2) Sepsis Assessment & Plan: Labs noted lactic acidosis improved with resuscitation CT findings: Limited assessment of the GI tract, due to lack of enteric contrast administration. Exam is also limited due to patient motion artifact and lack of IV contrast administration Evidence of hepatic cirrhosis Small amount of ascites, likely related to the above Surgically absent gallbladder Bilateral basilar pulmonary parenchymal atelectatic changes and possible patchy consolidation Minimal edema of the bilateral flank subcutaneous fat Other findings as noted, including degenerative spondylosis, right hepatic lobe capsular calcification, Quiroz catheter has made a great improvement. denies abd pain. labs improved. decompensated liver cirrhosis LFT's abnormal leukocytosis overall improved but prognosis still guarded Limited assessment of the GI tract, due to lack of enteric contrast administration Abdominal ascites, increased in extent since prior study Increased edema of the subcutaneous fat, since previous study Hepatic surface nodularity, consistent with cirrhosis, also previously reported Borderline splenomegaly Bilateral basilar pulmonary patchy consolidation and atelectasis as well as some congestion. Findings as noted, including degenerative spondylosis, PICC, Quiroz catheter, rectal tube, nasogastric tube -NG tube -NPO -paracentesis ordered -iv fluids -iv abx -trend labs will follow with recs thank you (3) Liver cirrhosis Josh Samuel Oct 21, 2018 15:05
[2018-10-21 16:00] VITALS: BP 138/71
[2018-10-21] MEDS ORDERED: NS 275ml ONE (16:25)
[2018-10-21] MEDS ORDERED: Tubing IV Secondary IV ONE (16:25)
--- NOTE | 2018-10-21 19:30 | NUR ---
HAND-OFF: Report given to KARI Lopez. Patient VS stable at this time with no sign of acute distress. Patient has an order for paracentesis for tomorrow. Endorsed to follow up.
--- NOTE | 2018-10-21 19:31 | NUR ---
NURSE NOTES: Received patient from KARI Velasco. Patient is stable, awake and alert x3. Patient is comfortable and showing no pain and/or distress. Family members are at bedside, will continue plan of care.
[2018-10-21 20:00] VITALS: BP 145/79
--- NOTE | 2018-10-21 20:03 | General Progress Note ---
Assessment/Plan Assessment/Plan Assessment/Plan Problems: (1) Shock liver ICD Codes: K72.00 - Acute and subacute hepatic failure without coma SNOMED: 943585187 (2) Liver cirrhosis ICD Codes: K74.60 - Unspecified cirrhosis of liver SNOMED: 38685090 (3) Septic shock ICD Codes: A41.9 - Sepsis, unspecified organism; R65.21 - Severe sepsis with septic shock SNOMED: 17827277 (4) Sepsis ICD Codes: A41.9 - Sepsis, unspecified organism SNOMED: 40253968 (5) Respiratory disorder with ventilator dependence ICD Codes: J98.9 - Respiratory disorder, unspecified; Z99.11 - Dependence on respirator [ventilator] status SNOMED: 78920789, 577406139 (6) Normocytic anemia ICD Codes: D64.9 - Anemia, unspecified SNOMED: 346335102 Status: unchanged (7) Ascites and Edema Assessment/Plan Retry TF after paracentesis in am ppi BID monitor H&H work up for elevated CEA when more stable xifaxan and lactulose reglan ATC Will d/c Amiodarone for now - discussed with cardiology fu JAD,SMA,AMA Follow labs will need repeat paracentesis - Monday Subjective Allergies: Coded Allergies: No Known Allergies (Unverified , 05/06/18) Subjective debilitated woman minimally communicative CT noted --> Cirrhosis, worsened ascites Objective Last 24 Hour Vital Signs Date Time Temp Pulse Resp B/P (MAP) Pulse Ox O2 Delivery O2 Flow Rate FiO2 10/21/18 16:00 Nasal Cannula 3.0 10/21/18 15:28 Nasal Cannula 2.0 28 10/21/18 15:28 Nasal Cannula 2.0 28 10/21/18 12:00 101 10/21/18 12:00 Nasal Cannula 3.0 10/21/18 12:00 97.5 104 22 153/84 (107) 97 10/21/18 10:58 98 20 97 Nasal Cannula 2.0 28 10/21/18 10:48 97 18 97 Nasal Cannula 2.0 28 10/21/18 10:22 99 10/21/18 08:00 Nasal Cannula 3.0 10/21/18 08:00 97.9 101 20 132/76 (94) 97 10/21/18 08:00 99 10/21/18 07:28 98 18 100 Nasal Cannula 2.0 28 10/21/18 07:19 97 Nasal Cannula 2.0 28 10/21/18 07:19 99 17 97 Nasal Cannula 2.0 28 10/21/18 07:19 Nasal Cannula 2.0 28 10/21/18 04:00 98.2 101 20 140/75 (96) 100 10/21/18 04:00 Nasal Cannula 3.0 10/21/18 03:36 104 10/21/18 03:14 99 20 100 Nasal Cannula 2.0 28 10/21/18 03:06 101 20 98 Nasal Cannula 3.0 32 10/21/18 00:00 97.5 102 20 140/77 (98) 100 10/21/18 00:00 Nasal Cannula 3.0 10/20/18 23:38 103 10/20/18 22:58 102 20 100 Nasal Cannula 2.0 28 10/20/18 22:49 99 20 97 Nasal Cannula 3.0 32 10/20/18 20:00 Nasal Cannula 3.0 10/20/18 20:00 98.1 102 28 137/77 (97) 99 Intake and Output 10/20/18 10/21/18 19:00 07:00 Intake Total 825 ml 835 ml Output Total 2230 ml 1150 ml Balance -1405 ml -315 ml IV Total 825 ml 835 ml Output Urine Total 900 ml 500 ml Stool Total 600 ml 400 ml Gastric Drainage Total 730 ml 250 ml Laboratory Tests 10/21/18 05:00: White Blood Count 12.2H, Red Blood Count 2.73L, Hemoglobin 8.5L, Hematocrit 26.2L, Mean Corpuscular Volume 96, Mean Corpuscular Hemoglobin 31.3H, Mean Corpuscular Hemoglobin Concent 32.6, Red Cell Distribution Width 20.8H, Platelet Count 92L, Mean Platelet Volume 6.6, Neutrophils (%) (Auto) , Lymphocytes (%) (Auto) , Monocytes (%) (Auto) , Eosinophils (%) (Auto) , Basophils (%) (Auto) , Differential Total Cells Counted 100, Neutrophils % ( Manual) 85H, Lymphocytes % (Manual) 7L, Monocytes % (Manual) 5, Eosinophils % ( Manual) 3, Basophils % (Manual) 0, Band Neutrophils 0, Platelet Estimate DecreasedL, Platelet Morphology Normal, Hypochromasia 1+, Anisocytosis 2+, Prothrombin Time 15.8H, Prothromb Time International Ratio 1.5H, Sodium Level 151H, Potassium Level 3.2L, Chloride Level 117H, Carbon Dioxide Level 25, Anion Gap 9, Blood Urea Nitrogen 16, Creatinine 1.1, Estimat Glomerular Filtration Rate 51.0, Glucose Level 184H, Calcium Level 10.2H, Phosphorus Level 3.1, Magnesium Level 1.5L, Total Bilirubin 7.0H, Direct Bilirubin 5.1H, Aspartate Amino Transf (AST/SGOT) 61H, Alanine Aminotransferase (ALT/SGPT) 213H, Alkaline Phosphatase 390H, Ammonia 81H, C-Reactive Protein, Quantitative 7.9H, Total Protein 5.5L, Albumin 2.3L, Globulin 3.2, Albumin/Globulin Ratio 0.7L Height (Feet): 5 Height (Inches): 1.00 Weight (Pounds): 250 Objective Obese L woman restrained NCAT, (+) icteric supple Coarse BS RR abd distended, dull to percussion (++) edema Kiah Poe MD Oct 21, 2018 20:02
[2018-10-21] MEDS: Dyna-Hex 2% Top Sol 2oz TOPIC SCH (20:44)
--- NOTE | 2018-10-21 21:56 | General Progress Note ---
Assessment/Plan Assessment/Plan Assessment and Recs: # Leukocytosis/Elevated white blood cell count, unspecified likely related to underlying stress reaction, or underlying infection --> have reviewed peripheral smear and bandemia/neutrophilia noted --> continue antibiotics if they have been started by ID team (on zosyn at this time) --> monitor for resolution -->WBC trend: 14-->10-->15-->12 # Thrombocytopenia - potential causes multifactorial, evaluate liver and viral etiologies to begin, also could be related to underlying medications patient has received. Hx of cirrhosis in the past noted on us --> Hep panel and HIV negative --> CT a/p show cirrhosis as well as us --> Peripheral smear ordered to evaluate for blasts /schistocytes is negative --> abx and other meds have been reviewed --> ok for ppx if plt >50k w/ either heparin or lovenox --> Transfuse if Plt < 20k and fever, or if Plt < 10k without fever --> HIT negative, hold off heparin -->Plt trend : 54-->92 # Anemia of iron deficiency as noted with low % sat and tibc elevated --> Anemia workup has been reviewed --> No evidence of hemolysis is noted, peripheral smear has been reviewed. --> Hgb goal >7. Transfuse prn. --> Iron IV X 5 days already given --> Medications have been reviewed # CEA of 10.5 --> Ct of abdomen/pelvis reviewed and is negative # Sepsis likely contributing to low plts --> on abx as needed # Shock, hypovolemic and distributive --> per id and pulm/cc care # Multisystem organ failure. # Lactic acidosis. # JONNATHAN. # Abnormal LFTs, likely shock liver. # Abnormal troponin, likely demand ischemia. # Obesity. # Respiratory failure on vent --> now extubated The timing of this note does not necessarily reflect the time of the patient was seen. Greatly appreciate consultation! Subjective ROS Limited/Unobtainable: Yes Allergies: Coded Allergies: No Known Allergies (Unverified , 05/06/18) Subjective 10/12: Pt was seen in ICU on Vent and off pressors, developed atrial fib, wbc trending down to 13, plt trending down to 60 3: remains in the icu, monitoring labs, plts stabilizing, remains critically ill, cea elev 10/15: In ICU on Vent and off pressors, plt 62, no events 10/16 wbc trending up at 14,plt low at 48,weaning well from vent. no acute events , family at bedside 10/17: plts remain low, no events, weaned off vent, no complaints, off pressors 10/18: seen by bedside, wbc trending up at 15, plt low at 50, no events, needs video swallow. NGT 10/19: wbc remains elevated, plt 54, no acute distress reported 10/21: seen by bedside, still with lots of NG tube output, wbc 12, plt trending up Objective Last 24 Hour Vital Signs Date Time Temp Pulse Resp B/P (MAP) Pulse Ox O2 Delivery O2 Flow Rate FiO2 10/21/18 20:00 100 20 100 Nasal Cannula 2.0 28 10/21/18 20:00 98.3 102 36 145/79 (101) 97 10/21/18 20:00 Nasal Cannula 3.0 10/21/18 20:00 96 Nasal Cannula 2.0 28 10/21/18 20:00 Nasal Cannula 2.0 28 10/21/18 19:50 98 18 96 Nasal Cannula 2.0 28 10/21/18 16:00 96 10/21/18 16:00 97.7 98 22 138/71 (93) 96 10/21/18 16:00 Nasal Cannula 3.0 10/21/18 15:28 Nasal Cannula 2.0 28 10/21/18 15:28 Nasal Cannula 2.0 28 10/21/18 12:00 101 10/21/18 12:00 Nasal Cannula 3.0 10/21/18 12:00 97.5 104 22 153/84 (107) 97 10/21/18 10:58 98 20 97 Nasal Cannula 2.0 28 10/21/18 10:48 97 18 97 Nasal Cannula 2.0 28 10/21/18 10:22 99 10/21/18 08:00 Nasal Cannula 3.0 10/21/18 08:00 97.9 101 20 132/76 (94) 97 10/21/18 08:00 99 10/21/18 07:28 98 18 100 Nasal Cannula 2.0 28 10/21/18 07:19 97 Nasal Cannula 2.0 28 10/21/18 07:19 99 17 97 Nasal Cannula 2.0 28 10/21/18 07:19 Nasal Cannula 2.0 28 10/21/18 04:00 98.2 101 20 140/75 (96) 100 10/21/18 04:00 Nasal Cannula 3.0 10/21/18 03:36 104 10/21/18 03:14 99 20 100 Nasal Cannula 2.0 28 10/21/18 03:06 101 20 98 Nasal Cannula 3.0 32 10/21/18 00:00 97.5 102 20 140/77 (98) 100 10/21/18 00:00 Nasal Cannula 3.0 10/20/18 23:38 103 10/20/18 22:58 102 20 100 Nasal Cannula 2.0 28 10/20/18 22:49 99 20 97 Nasal Cannula 3.0 32 Intake and Output 10/20/18 10/21/18 19:00 07:00 Intake Total 825 ml 835 ml Output Total 2230 ml 1150 ml Balance -1405 ml -315 ml IV Total 825 ml 835 ml Output Urine Total 900 ml 500 ml Stool Total 600 ml 400 ml Gastric Drainage Total 730 ml 250 ml Laboratory Tests 10/21/18 05:00: White Blood Count 12.2H, Red Blood Count 2.73L, Hemoglobin 8.5L, Hematocrit 26.2L, Mean Corpuscular Volume 96, Mean Corpuscular Hemoglobin 31.3H, Mean Corpuscular Hemoglobin Concent 32.6, Red Cell Distribution Width 20.8H, Platelet Count 92L, Mean Platelet Volume 6.6, Neutrophils (%) (Auto) , Lymphocytes (%) (Auto) , Monocytes (%) (Auto) , Eosinophils (%) (Auto) , Basophils (%) (Auto) , Differential Total Cells Counted 100, Neutrophils % ( Manual) 85H, Lymphocytes % (Manual) 7L, Monocytes % (Manual) 5, Eosinophils % ( Manual) 3, Basophils % (Manual) 0, Band Neutrophils 0, Platelet Estimate DecreasedL, Platelet Morphology Normal, Hypochromasia 1+, Anisocytosis 2+, Prothrombin Time 15.8H, Prothromb Time International Ratio 1.5H, Sodium Level 151H, Potassium Level 3.2L, Chloride Level 117H, Carbon Dioxide Level 25, Anion Gap 9, Blood Urea Nitrogen 16, Creatinine 1.1, Estimat Glomerular Filtration Rate 51.0, Glucose Level 184H, Calcium Level 10.2H, Phosphorus Level 3.1, Magnesium Level 1.5L, Total Bilirubin 7.0H, Direct Bilirubin 5.1H, Aspartate Amino Transf (AST/SGOT) 61H, Alanine Aminotransferase (ALT/SGPT) 213H, Alkaline Phosphatase 390H, Ammonia 81H, C-Reactive Protein, Quantitative 7.9H, Total Protein 5.5L, Albumin 2.3L, Globulin 3.2, Albumin/Globulin Ratio 0.7L Height (Feet): 5 Height (Inches): 1.00 Weight (Pounds): 250 Objective PHYSICAL EXAMINATION: VITAL SIGNS: reviewed, saturating 98% on NC++, GENERAL: She is an obese female, confused. HEENT: Normocephalic and atraumatic. Oropharynx is clear with dry mucous membranes., NJ tube++ NECK: Supple without lymphadenopathy or JVP. CHEST: Clear. HEART: Regular. ABDOMEN: Benign. EXTREMITIES: No cyanosis, clubbing, or edema. There are some ecchymoses in bilateral lower extremities. Kurtis Villagomez MD Oct 21, 2018 21:56
[2018-10-22] VITALS: BP 137/80
[2018-10-22] MEDS: Albuterol/Ipratropium 3ml neb HHN SCH ×2 (03:59→07:31)
[2018-10-22 04:00] VITALS: BP 130/77
[2018-10-22 04:44] LABS: BASOPHILS % (AUTO) 1.2 % (0.0-2.0); EOSINOPHILS % (AUTO) 4.2 % (0.0-3.0); HEMATOCRIT 28.4 % (37.0-47.0); HEMOGLOBIN 8.9 G/DL (12.0-16.0); LYMPHOCYTES % (AUTO) 8.7 % (20.0-45.0); MEAN CORPUSCULAR VOLUME 99 FL (80-99); MONOCYTES % (AUTO) 6.6 % (1.0-10.0); NEUTROPHILS % (AUTO) 79.3 % (45.0-75.0); PLATELET COUNT 106 K/UL (150-450); RED BLOOD COUNT 2.88 M/UL (4.20-5.40); RED CELL DISTRIBUTION WIDTH 22.7 % (11.6-14.8)
[2018-10-22 05:27] LABS: ALANINE AMINOTRANSFERASE 181 U/L (12-78); ALBUMIN 2.2 G/DL (3.4-5.0); ALBUMIN/GLOBULIN RATIO 0.7 (1.0-2.7); ALKALINE PHOSPHATASE 386 U/L (46-116); ANION GAP 9 mmol/L (5-15); ASPARTATE AMINO TRANSFERASE 65 U/L (15-37); BILIRUBIN,TOTAL 7.3 MG/DL (0.2-1.0); BLOOD UREA NITROGEN 14 mg/dL (7-18); CALCIUM 9.8 MG/DL (8.5-10.1); CARBON DIOXIDE 25 MMOL/L (21-32); CHLORIDE 115 MMOL/L (98-107); CREATININE 1.1 MG/DL (0.55-1.30); PHOSPHORUS 2.8 MG/DL (2.5-4.9); POTASSIUM 3.6 MMOL/L (3.5-5.1); SODIUM 148 MMOL/L (136-145)
[2018-10-22 05:31] LABS: BILIRUBIN,DIRECT 5.3 MG/DL (0.0-0.3)
[2018-10-22] MEDS: Metoclopramide 10mg/2ml Inj IVP SCH ×4 (05:34→22:47)
[2018-10-22] MEDS: NovoLOG Insulin Flexpen SUBQ SCH ×4 (05:36→21:37)
--- NOTE | 2018-10-22 07:20 | NUR ---
NURSE NOTES: RECEIVED BED SIDE REPORT FROM [employer] ACC[employer]ANT OF NOC SHIFT.RECEIVED PT WITH HOB ELEVATED 45 DEGREE OBTUNDED WITH NGT IN PLACE CONNECTED TO LOW INT SX,D,YELLOWISH DRAINAGE COLOR NOTED .PT WITH BILAT SOFT WRIST RESTRAINTS RELEASED AND PROVIDE PROM TO ALL EXTREMITIES.PT REPOSITIONED IN BED TO PROVIDE COMFORT AND PREVENT FURTHER SKIN BREAK DOWN.NO ACUTE DISTRESS NOTED AT THIS TIME .WILL CONT TO MONITOR.
--- NOTE | 2018-10-22 07:20 | NUR ---
HAND-OFF: Report given to KARI BRIGHT.
[2018-10-22 08:00] VITALS: BP 147/77
--- NOTE | 2018-10-22 10:07 | Infectious Diseases Prog Note ---
Assessment/Plan Assessment/Plan A: 1. Septic Shock resolved.culture are negative so far 2. aspiration pneumonia. 3. acute renal failure improving 4. Diabetes mellitus. 5. Obesity. 6. Lactic acidosis. 7. Anemia.s/p transfusion 8. Cirrhosis with ascites 9. Enteritis, ileus resolved 10. Leukocytosis improving 11. GI bleeding 12. labial herpes RECOMMENDATION: Start on PO Acyclovir X 5 days Poor [facility] prognosis Subjective ROS Limited/Unobtainable: Yes Neurologic: Reports: confusion, other - on restraint Allergies: Coded Allergies: No Known Allergies (Unverified , 05/06/18) Objective Vital Signs Last 24 Hour Vital Signs Date Time Temp Pulse Resp B/P (MAP) Pulse Ox O2 Delivery O2 Flow Rate FiO2 10/22/18 08:00 Nasal Cannula 3.0 10/22/18 08:00 99.2 105 24 147/77 (100) 96 10/22/18 08:00 107 10/22/18 07:41 101 20 100 Nasal Cannula 2.0 28 10/22/18 07:34 Nasal Cannula 2.0 28 10/22/18 07:31 95 Nasal Cannula 2.0 28 10/22/18 07:31 105 18 95 Nasal Cannula 2.0 28 10/22/18 04:02 107 10/22/18 04:00 109 20 100 Nasal Cannula 2.0 28 10/22/18 04:00 97.7 107 24 130/77 (94) 97 10/22/18 04:00 Nasal Cannula 3.0 10/22/18 03:49 107 18 97 Nasal Cannula 2.0 28 10/22/18 00:00 Nasal Cannula 3.0 10/22/18 00:00 97.7 104 24 137/80 (99) 96 10/21/18 23:46 107 20 100 Nasal Cannula 2.0 28 10/21/18 23:34 104 18 97 Nasal Cannula 2.0 28 10/21/18 23:05 102 10/21/18 20:00 102 10/21/18 20:00 100 20 100 Nasal Cannula 2.0 28 10/21/18 20:00 98.3 102 36 145/79 (101) 97 10/21/18 20:00 Nasal Cannula 3.0 10/21/18 20:00 96 Nasal Cannula 2.0 28 10/21/18 20:00 Nasal Cannula 2.0 28 10/21/18 19:50 98 18 96 Nasal Cannula 2.0 28 10/21/18 16:00 96 10/21/18 16:00 97.7 98 22 138/71 (93) 96 10/21/18 16:00 Nasal Cannula 3.0 10/21/18 15:28 Nasal Cannula 2.0 28 10/21/18 15:28 Nasal Cannula 2.0 28 10/21/18 12:00 101 10/21/18 12:00 Nasal Cannula 3.0 10/21/18 12:00 97.5 104 22 153/84 (107) 97 10/21/18 10:58 98 20 97 Nasal Cannula 2.0 28 10/21/18 10:48 97 18 97 Nasal Cannula 2.0 28 10/21/18 10:22 99 Height (Feet): 5 Height (Inches): 1.00 Weight (Pounds): 250 General Appearance: no acute distress HEENT: mucous membranes moist Respiratory/Chest: lungs clear Cardiovascular: tachycardia, other - PICC line Abdomen: soft, non tender Extremities: other - generalized edema Skin: other - perioral vesicular lesions Neurologic/Psychiatric: disoriented Laboratory Tests Test 10/22/18 04:00 White Blood Count 11.0 K/UL (4.8-10.8) H Red Blood Count 2.88 M/UL (4.20-5.40) L Hemoglobin 8.9 G/DL (12.0-16.0) L Hematocrit 28.4 % (37.0-47.0) L Mean Corpuscular Volume 99 FL (80-99) Mean Corpuscular Hemoglobin 30.8 PG (27.0-31.0) Mean Corpuscular Hemoglobin Concent 31.2 G/DL (32.0-36.0) L Red Cell Distribution Width 22.7 % (11.6-14.8) H Platelet Count 106 K/UL (150-450) L Mean Platelet Volume 5.5 FL (6.5-10.1) L Neutrophils (%) (Auto) 79.3 % (45.0-75.0) H Lymphocytes (%) (Auto) 8.7 % (20.0-45.0) L Monocytes (%) (Auto) 6.6 % (1.0-10.0) Eosinophils (%) (Auto) 4.2 % (0.0-3.0) H Basophils (%) (Auto) 1.2 % (0.0-2.0) Sodium Level 148 MMOL/L (136-145) H Potassium Level 3.6 MMOL/L (3.5-5.1) Chloride Level 115 MMOL/L (98-107) H Carbon Dioxide Level 25 MMOL/L (21-32) Anion Gap 9 mmol/L (5-15) Blood Urea Nitrogen 14 mg/dL (7-18) Creatinine 1.1 MG/DL (0.55-1.30) Estimat Glomerular Filtration Rate 51.0 mL/min (>60) Glucose Level 186 MG/DL (74-106) H Uric Acid 6.9 MG/DL (2.6-7.2) Calcium Level 9.8 MG/DL (8.5-10.1) Phosphorus Level 2.8 MG/DL (2.5-4.9) Magnesium Level 1.3 MG/DL (1.8-2.4) L Total Bilirubin 7.3 MG/DL (0.2-1.0) H Direct Bilirubin 5.3 MG/DL (0.0-0.3) H Aspartate Amino Transf (AST/SGOT) 65 U/L (15-37) H Alanine Aminotransferase (ALT/SGPT) 181 U/L (12-78) H Alkaline Phosphatase 386 U/L (46-116) H Pro-B-Type Natriuretic Peptide 422 pg/mL (0-125) H Total Protein 5.5 G/DL (6.4-8.2) L Albumin 2.2 G/DL (3.4-5.0) L Globulin 3.3 g/dL Albumin/Globulin Ratio 0.7 (1.0-2.7) L Current Medications Medications (Trade) Dose Ordered Sig/Patricia Route PRN Reason Start Time Stop Time Status Last Admin Dose Admin Albuterol/ Ipratropium (Albuterol/ Ipratropium) 3 ml Q4HRT HHN 10/17/18 15:00 10/22/18 10:59 10/22/18 07:31 Chlorhexidine Gluconate (Nguyen-Hex 2%) 1 applic DAILY@1999 TOPIC 10/17/18 20:00 11/09/18 19:59 10/21/18 20:44 Dextrose 1,000 ml @ 75 mls/hr [id number] IV 10/19/18 13:30 11/18/18 13:29 10/21/18 18:56 Dextrose (Dextrose 50%) 25 ml Q30M PRN IV Hypoglycemia 10/17/18 14:45 11/10/18 13:44 Dextrose (Dextrose 50%) 50 ml Q30M PRN IV Hypoglycemia 10/17/18 14:45 11/10/18 13:44 Digoxin (Lanoxin) 0.125 mg QOD NG 10/19/18 09:00 11/15/18 08:59 10/21/18 10:22 Diphenhydramine HCl (Benadryl) 25 mg Q6H PRN IVP Itching 10/17/18 14:30 11/08/18 14:29 Insulin Aspart (NovoLOG) BEFORE MEALS AND HS SUBQ 10/17/18 16:30 11/10/18 16:29 10/22/18 05:36 Lactulose (Cephulac) 30 gm THREE TIMES A DAY NG 10/17/18 18:00 11/12/18 17:59 10/21/18 17:40 Magnesium Sulfate 100 ml @ 100 mls/hr Q1H IVPB 10/22/18 10:00 10/22/18 13:59 UNV Metoclopramide HCl (Reglan) 5 mg Q6H IVP 10/17/18 17:30 11/13/18 11:29 10/22/18 05:34 Midazolam HCl (Versed 2mg/2ml vial) 1 mg Q2H PRN IVP For Anxiety 10/17/18 14:30 11/11/18 14:29 Pantoprazole (Protonix) 40 mg EVERY 12 HOURS IVP 10/17/18 21:00 11/09/18 20:59 10/21/18 20:45 Rifaximin (Xifaxan) 550 mg EVERY 12 HOURS ORAL 10/17/18 21:00 10/26/18 20:59 10/21/18 20:45 Wesley Akers MD Oct 22, 2018 10:07
[2018-10-22] MEDS: Lactulose 20gm/30ml UDC NG SCH ×3 (10:27→18:00)
[2018-10-22] MEDS: Pantoprazole Inj IVP SCH ×2 (10:28→21:35)
[2018-10-22] MEDS: Acyclovir 200mg Cap ORAL SCH ×3 (10:42→21:34)
--- NOTE | 2018-10-22 11:28 | NUR ---
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 RESP DISTRESS VS: BP158/77, P 124, T 97.7, RR 24, SpO2 97 on 3.0L NC WBC 11.0, RBC 2.88, Na 148, Glucose 186, Magnesium 1.3 IS:MAGNESIUM SULFATE 100ml ALBUTEROL 3ml IOPAMIDOL 150ml ACYCLOVIR 400mg LACTULOSE 30gm RIFAXIMIN 550mg PROTONIX 40mg DIGOXIN 0.125mg SDU STATUS
[2018-10-22 12:00] VITALS: BP 141/82
--- NOTE | 2018-10-22 12:05 | Pulmonology Progress Note ---
Assessment/Plan Assessment/Plan ASSESSMENT: The patient is a 58-year-old female with a history of obesity, diabetes, hypertension, hyperlipidemia, and sciatica with chronic low back pain , DDD/DJD, presenting after a mechanical fall with altered mental status and confusion with likely sepsis and multisystem organ failure. PROBLEM LIST: 1. VDRF, EXTUBATED 10/16/18 2. Sepsis 3. Shock, hypovolemic and distributive. 4. Multisystem organ failure. 5. Lactic acidosis. 6. Anion gap metabolic acidosis. 7. JONNATHAN - BETTER 7. Abnormal LFTs, likely shock liver. 8. Abnormal troponin, likely demand ischemia. 9. Elevated D-dimer and PASP concerning for an acute PE 10. Obesity. 11. Diabetes. 12. Hypertension. 13. Chronic low back pain and sciatica. 14. Anemia/FOBT + 15. Thrombocytopenia 16. AFcRVR now in NSR 17. HyperNa 18. Herpes labialis TREATMENT PLAN: 1. Optimize pulmonary hygiene/mobilize as tolerated 2. Titrate down FiO2 to keep SaO2 < 90% 3. Observe off Abx per ID. On Acyclovir for herpes labialis 4. Continue D5W@75, PRN lasix and albumin 6. SSI, monitor BS 7. Follow up cards recs 8. GI and surgery recs, para, NGT to LIS, NPO, ENDOSCOPY? 9. VQ scan never done, Cr better will order CT-A to R/O PE 10. DVT prophylaxis: SCD 11. FC Subjective Allergies: Coded Allergies: No Known Allergies (Unverified , 05/06/18) Subjective AFVSS on 3L Awaiting para Diffusely edematous + cough no SOB no F/C Objective Last 24 Hour Vital Signs Date Time Temp Pulse Resp B/P (MAP) Pulse Ox O2 Delivery O2 Flow Rate FiO2 10/22/18 08:00 Nasal Cannula 3.0 10/22/18 08:00 99.2 105 24 147/77 (100) 96 10/22/18 08:00 107 10/22/18 07:41 101 20 100 Nasal Cannula 2.0 28 10/22/18 07:34 Nasal Cannula 2.0 28 10/22/18 07:31 95 Nasal Cannula 2.0 28 10/22/18 07:31 105 18 95 Nasal Cannula 2.0 28 10/22/18 04:02 107 10/22/18 04:00 109 20 100 Nasal Cannula 2.0 28 10/22/18 04:00 97.7 107 24 130/77 (94) 97 10/22/18 04:00 Nasal Cannula 3.0 10/22/18 03:49 107 18 97 Nasal Cannula 2.0 28 10/22/18 00:00 Nasal Cannula 3.0 10/22/18 00:00 97.7 104 24 137/80 (99) 96 10/21/18 23:46 107 20 100 Nasal Cannula 2.0 28 10/21/18 23:34 104 18 97 Nasal Cannula 2.0 28 10/21/18 23:05 102 10/21/18 20:00 102 10/21/18 20:00 100 20 100 Nasal Cannula 2.0 28 10/21/18 20:00 98.3 102 36 145/79 (101) 97 10/21/18 20:00 Nasal Cannula 3.0 10/21/18 20:00 96 Nasal Cannula 2.0 28 10/21/18 20:00 Nasal Cannula 2.0 28 10/21/18 19:50 98 18 96 Nasal Cannula 2.0 28 10/21/18 16:00 96 10/21/18 16:00 97.7 98 22 138/71 (93) 96 10/21/18 16:00 Nasal Cannula 3.0 10/21/18 15:28 Nasal Cannula 2.0 28 10/21/18 15:28 Nasal Cannula 2.0 28 Intake and Output 10/21/18 10/22/18 18:59 06:59 Intake Total 1350 ml 900 ml Output Total 1400 ml 1200 ml Balance -50 ml -300 ml Intake Free Water 50 ml IV Total 1300 ml 900 ml Output Urine Total 750 ml 500 ml Stool Total 200 ml 300 ml Gastric Drainage Total 450 ml 400 ml General Appearance: no acute distress HEENT: normocephalic, atraumatic, anicteric, mucous membranes moist Respiratory/Chest: chest wall non-tender, crackles/rales Cardiovascular: normal peripheral pulses, normal rate, regular rhythm Abdomen: normal bowel sounds, soft, non tender, no organomegaly, distended Extremities: no cyanosis, no clubbing, other - 1+ Laboratory Tests 10/22/18 04:00: White Blood Count 11.0H, Red Blood Count 2.88L, Hemoglobin 8.9L, Hematocrit 28.4L, Mean Corpuscular Volume 99, Mean Corpuscular Hemoglobin 30.8, Mean Corpuscular Hemoglobin Concent 31.2L, Red Cell Distribution Width 22.7H, Platelet Count 106L, Mean Platelet Volume 5.5L, Neutrophils (%) (Auto) 79.3H, Lymphocytes (%) (Auto) 8.7L, Monocytes (%) (Auto) 6.6, Eosinophils (%) (Auto) 4.2H, Basophils (%) (Auto) 1.2, Sodium Level 148H, Potassium Level 3.6, Chloride Level 115H, Carbon Dioxide Level 25, Anion Gap 9, Blood Urea Nitrogen 14, Creatinine 1.1, Estimat Glomerular Filtration Rate 51.0, Glucose Level 186H , Uric Acid 6.9, Calcium Level 9.8, Phosphorus Level 2.8, Magnesium Level 1.3L, Total Bilirubin 7.3H, Direct Bilirubin 5.3H, Aspartate Amino Transf (AST/SGOT) 65H, Alanine Aminotransferase (ALT/SGPT) 181H, Alkaline Phosphatase 386H, Pro-B- Type Natriuretic Peptide 422H, Total Protein 5.5L, Albumin 2.2L, Globulin 3.3, Albumin/Globulin Ratio 0.7L Current Medications Medications (Trade) Dose Ordered Sig/Patricia Route PRN Reason Start Time Stop Time Status Last Admin Dose Admin Acyclovir (Zovirax) 400 mg EVERY 8 HOURS ORAL 10/22/18 10:15 11/21/18 10:14 10/22/18 10:42 Chlorhexidine Gluconate (Nguyen-Hex 2%) 1 applic DAILY@2000 TOPIC 10/17/18 20:00 11/09/18 19:59 10/21/18 20:44 Dextrose 1,000 ml @ 75 mls/hr [id number] IV 10/19/18 13:30 11/18/18 13:29 10/22/18 08:10 Dextrose (Dextrose 50%) 25 ml Q30M PRN IV Hypoglycemia 10/17/18 14:45 11/10/18 13:44 Dextrose (Dextrose 50%) 50 ml Q30M PRN IV Hypoglycemia 10/17/18 14:45 11/10/18 13:44 Digoxin (Lanoxin) 0.125 mg QOD NG 10/19/18 09:00 11/15/18 08:59 10/21/18 10:22 Diphenhydramine HCl (Benadryl) 25 mg Q6H PRN IVP Itching 10/17/18 14:30 11/08/18 14:29 Insulin Aspart (NovoLOG) BEFORE MEALS AND HS SUBQ 10/17/18 16:30 11/10/18 16:29 10/22/18 05:36 Lactulose (Cephulac) 30 gm THREE TIMES A DAY NG 10/17/18 18:00 11/12/18 17:59 10/22/18 10:27 Magnesium Sulfate 100 ml @ 100 mls/hr Q1H IVPB 10/22/18 10:30 10/22/18 14:29 10/22/18 10:28 Metoclopramide HCl (Reglan) 5 mg Q6H IVP 10/17/18 17:30 11/13/18 11:29 10/22/18 05:34 Midazolam HCl (Versed 2mg/2ml vial) 1 mg Q2H PRN IVP For Anxiety 10/17/18 14:30 11/11/18 14:29 Pantoprazole (Protonix) 40 mg EVERY 12 HOURS IVP 10/17/18 21:00 11/09/18 20:59 10/22/18 10:28 Rifaximin (Xifaxan) 550 mg EVERY 12 HOURS ORAL 10/17/18 21:00 10/26/18 20:59 10/22/18 10:28 Renato Delarosa MD Oct 22, 2018 12:05
[2018-10-22] MEDS ORDERED: Isovue-370 150ml vial INJ PRN (12:15)
--- NOTE | 2018-10-22 12:17 | GI Progress Note ---
Assessment/Plan Problems: (1) Shock liver ICD Codes: K72.00 - Acute and subacute hepatic failure without coma SNOMED: 573912204 (2) Liver cirrhosis ICD Codes: K74.60 - Unspecified cirrhosis of liver SNOMED: 10255966 (3) Septic shock ICD Codes: A41.9 - Sepsis, unspecified organism; R65.21 - Severe sepsis with septic shock SNOMED: 07709760 (4) Sepsis ICD Codes: A41.9 - Sepsis, unspecified organism SNOMED: 15433366 (5) Respiratory disorder with ventilator dependence ICD Codes: J98.9 - Respiratory disorder, unspecified; Z99.11 - Dependence on respirator [ventilator] status SNOMED: 55486551, 754931208 (6) Normocytic anemia ICD Codes: D64.9 - Anemia, unspecified SNOMED: 187534267 Status: unchanged Status Narrative Discussed with Dr. Reynolds. Assessment/Plan Retry TF after paracentesis in am ppi BID monitor H&H work up for elevated CEA when more stable xifaxan and lactulose reglan ATC Will d/c Amiodarone for now - discussed with cardiology fu JAD,SMA,AMA Follow labs will need repeat paracentesis - Monday The patient was seen and examined at bedside and all new and available data was reviewed in the patients chart. I agree with the above findings, impression and plan. (Patient seen earlier today. Signature stamp does not reflect patient encounter time.). - Samuel Reynolds MD Subjective Subjective limited Objective Last 24 Hour Vital Signs Date Time Temp Pulse Resp B/P (MAP) Pulse Ox O2 Delivery O2 Flow Rate FiO2 10/22/18 08:00 Nasal Cannula 3.0 10/22/18 08:00 99.2 105 24 147/77 (100) 96 10/22/18 08:00 107 10/22/18 07:41 101 20 100 Nasal Cannula 2.0 28 10/22/18 07:34 Nasal Cannula 2.0 28 10/22/18 07:31 95 Nasal Cannula 2.0 28 10/22/18 07:31 105 18 95 Nasal Cannula 2.0 28 10/22/18 04:02 107 10/22/18 04:00 109 20 100 Nasal Cannula 2.0 28 10/22/18 04:00 97.7 107 24 130/77 (94) 97 10/22/18 04:00 Nasal Cannula 3.0 10/22/18 03:49 107 18 97 Nasal Cannula 2.0 28 10/22/18 00:00 Nasal Cannula 3.0 10/22/18 00:00 97.7 104 24 137/80 (99) 96 10/21/18 23:46 107 20 100 Nasal Cannula 2.0 28 10/21/18 23:34 104 18 97 Nasal Cannula 2.0 28 10/21/18 23:05 102 10/21/18 20:00 102 10/21/18 20:00 100 20 100 Nasal Cannula 2.0 28 10/21/18 20:00 98.3 102 36 145/79 (101) 97 10/21/18 20:00 Nasal Cannula 3.0 10/21/18 20:00 96 Nasal Cannula 2.0 28 10/21/18 20:00 Nasal Cannula 2.0 28 10/21/18 19:50 98 18 96 Nasal Cannula 2.0 28 10/21/18 16:00 96 10/21/18 16:00 97.7 98 22 138/71 (93) 96 10/21/18 16:00 Nasal Cannula 3.0 10/21/18 15:28 Nasal Cannula 2.0 28 10/21/18 15:28 Nasal Cannula 2.0 28 Intake and Output 10/21/18 10/22/18 19:00 07:00 Intake Total 1350 ml 900 ml Output Total 1400 ml 1200 ml Balance -50 ml -300 ml Intake Free Water 50 ml IV Total 1300 ml 900 ml Output Urine Total 750 ml 500 ml Stool Total 200 ml 300 ml Gastric Drainage Total 450 ml 400 ml Laboratory Tests Test 10/22/18 04:00 White Blood Count 11.0 K/UL (4.8-10.8) H Red Blood Count 2.88 M/UL (4.20-5.40) L Hemoglobin 8.9 G/DL (12.0-16.0) L Hematocrit 28.4 % (37.0-47.0) L Mean Corpuscular Volume 99 FL (80-99) Mean Corpuscular Hemoglobin 30.8 PG (27.0-31.0) Mean Corpuscular Hemoglobin Concent 31.2 G/DL (32.0-36.0) L Red Cell Distribution Width 22.7 % (11.6-14.8) H Platelet Count 106 K/UL (150-450) L Mean Platelet Volume 5.5 FL (6.5-10.1) L Neutrophils (%) (Auto) 79.3 % (45.0-75.0) H Lymphocytes (%) (Auto) 8.7 % (20.0-45.0) L Monocytes (%) (Auto) 6.6 % (1.0-10.0) Eosinophils (%) (Auto) 4.2 % (0.0-3.0) H Basophils (%) (Auto) 1.2 % (0.0-2.0) Sodium Level 148 MMOL/L (136-145) H Potassium Level 3.6 MMOL/L (3.5-5.1) Chloride Level 115 MMOL/L (98-107) H Carbon Dioxide Level 25 MMOL/L (21-32) Anion Gap 9 mmol/L (5-15) Blood Urea Nitrogen 14 mg/dL (7-18) Creatinine 1.1 MG/DL (0.55-1.30) Estimat Glomerular Filtration Rate 51.0 mL/min (>60) Glucose Level 186 MG/DL (74-106) H Uric Acid 6.9 MG/DL (2.6-7.2) Calcium Level 9.8 MG/DL (8.5-10.1) Phosphorus Level 2.8 MG/DL (2.5-4.9) Magnesium Level 1.3 MG/DL (1.8-2.4) L Total Bilirubin 7.3 MG/DL (0.2-1.0) H Direct Bilirubin 5.3 MG/DL (0.0-0.3) H Aspartate Amino Transf (AST/SGOT) 65 U/L (15-37) H Alanine Aminotransferase (ALT/SGPT) 181 U/L (12-78) H Alkaline Phosphatase 386 U/L (46-116) H Pro-B-Type Natriuretic Peptide 422 pg/mL (0-125) H Total Protein 5.5 G/DL (6.4-8.2) L Albumin 2.2 G/DL (3.4-5.0) L Globulin 3.3 g/dL Albumin/Globulin Ratio 0.7 (1.0-2.7) L Height (Feet): 5 Height (Inches): 1.00 Weight (Pounds): 250 General Appearance: no apparent distress, morbidly obese Cardiovascular: normal rate Respiratory/Chest: normal breath sounds, no respiratory distress Abdominal Exam: normal bowel sounds, non tender, soft Extremities: non-tender Cole Serna NP Oct 22, 2018 12:17
--- NOTE | 2018-10-22 15:44 | Nephrology Progress Note ---
Assessment/Plan Problem List: (1) JONNATHAN (acute kidney injury) Assessment: resolving (2) Shock liver (3) Septic shock (4) Respiratory disorder with ventilator dependence Assessment - Acute Oliguric Renal Failure Cr down to 1.1 - Respiratory disorder with s/p mechanical ventilator - Septic shock , Leukocytosis resolved - Pneumonia - Liver cirrhosis - Obese - Anemia . Plan mag IV due paracynthesis transfused 2 units previously down on IV fluid K and Phos IV as needed Hemodynamic support Pulmunary support Monitor renal parameters avoid nephrotoxics as best as possible per orders discussed with RN Objective Objective Last 24 Hour Vital Signs Date Time Temp Pulse Resp B/P (MAP) Pulse Ox O2 Delivery O2 Flow Rate FiO2 10/22/18 08:00 Nasal Cannula 3.0 10/22/18 08:00 99.2 105 24 147/77 (100) 96 10/22/18 08:00 107 10/22/18 07:41 101 20 100 Nasal Cannula 2.0 28 10/22/18 07:34 Nasal Cannula 2.0 28 10/22/18 07:31 95 Nasal Cannula 2.0 28 10/22/18 07:31 105 18 95 Nasal Cannula 2.0 28 10/22/18 04:02 107 10/22/18 04:00 109 20 100 Nasal Cannula 2.0 28 10/22/18 04:00 97.7 107 24 130/77 (94) 97 10/22/18 04:00 Nasal Cannula 3.0 10/22/18 03:49 107 18 97 Nasal Cannula 2.0 28 10/22/18 00:00 Nasal Cannula 3.0 10/22/18 00:00 97.7 104 24 137/80 (99) 96 10/21/18 23:46 107 20 100 Nasal Cannula 2.0 28 10/21/18 23:34 104 18 97 Nasal Cannula 2.0 28 10/21/18 23:05 102 10/21/18 20:00 102 10/21/18 20:00 100 20 100 Nasal Cannula 2.0 28 10/21/18 20:00 98.3 102 36 145/79 (101) 97 10/21/18 20:00 Nasal Cannula 3.0 10/21/18 20:00 96 Nasal Cannula 2.0 28 10/21/18 20:00 Nasal Cannula 2.0 28 10/21/18 19:50 98 18 96 Nasal Cannula 2.0 28 10/21/18 16:00 96 10/21/18 16:00 97.7 98 22 138/71 (93) 96 10/21/18 16:00 Nasal Cannula 3.0 Intake and Output 10/21/18 10/22/18 18:59 06:59 Intake Total 1350 ml 900 ml Output Total 1400 ml 1200 ml Balance -50 ml -300 ml Intake Free Water 50 ml IV Total 1300 ml 900 ml Output Urine Total 750 ml 500 ml Stool Total 200 ml 300 ml Gastric Drainage Total 450 ml 400 ml Laboratory Tests 10/22/18 04:00: White Blood Count 11.0H, Red Blood Count 2.88L, Hemoglobin 8.9L, Hematocrit 28.4L, Mean Corpuscular Volume 99, Mean Corpuscular Hemoglobin 30.8, Mean Corpuscular Hemoglobin Concent 31.2L, Red Cell Distribution Width 22.7H, Platelet Count 106L, Mean Platelet Volume 5.5L, Neutrophils (%) (Auto) 79.3H, Lymphocytes (%) (Auto) 8.7L, Monocytes (%) (Auto) 6.6, Eosinophils (%) (Auto) 4.2H, Basophils (%) (Auto) 1.2, Sodium Level 148H, Potassium Level 3.6, Chloride Level 115H, Carbon Dioxide Level 25, Anion Gap 9, Blood Urea Nitrogen 14, Creatinine 1.1, Estimat Glomerular Filtration Rate 51.0, Glucose Level 186H , Uric Acid 6.9, Calcium Level 9.8, Phosphorus Level 2.8, Magnesium Level 1.3L, Total Bilirubin 7.3H, Direct Bilirubin 5.3H, Aspartate Amino Transf (AST/SGOT) 65H, Alanine Aminotransferase (ALT/SGPT) 181H, Alkaline Phosphatase 386H, Pro-B- Type Natriuretic Peptide 422H, Total Protein 5.5L, Albumin 2.2L, Globulin 3.3, Albumin/Globulin Ratio 0.7L Height (Feet): 5 Height (Inches): 1.00 Weight (Pounds): 250 Objective NO CHANGE Alex Cueto MD Oct 22, 2018 15:44
[2018-10-22 16:00] VITALS: BP 158/77
--- NOTE | 2018-10-22 16:30 | NUR ---
NURSE NOTES: RECEIVED A TELEPHONE CALL FROM [facility] STATING THAT IS NOT ENOUGH FLUIDS FOR THERAPEUTIC AND ONLY FOR DIAGNOSTIC THAT IS WHAT DR FLETCHER SAID DR VÁZQUEZ AT NURSE STATION AND MADE AWARE AND NOTIFIED THE REASON THAT PARACENTESIS WAS NOT DONE.DR TAVAREZ ALSO STATING THAT IN THE CT-SCAN ALWAYS SEEMS LARGE VOLUMEN OF FLUIDS.WILL CONT TO MONITOR.
--- NOTE | 2018-10-22 16:36 | Surgery Progress Note ---
Surgery Progress Note Subjective Additional Comments She still has high NG tube residual. Ultrasound was performed today which not identifying of significant fluid for paracentesis which was not performed. With leukocytosis. Still with elevated LFTs worsening. Exam unchanged. Objective Last 24 Hour Vital Signs Date Time Temp Pulse Resp B/P (MAP) Pulse Ox O2 Delivery O2 Flow Rate FiO2 10/22/18 16:00 Nasal Cannula 3.0 10/22/18 12:00 Nasal Cannula 3.0 10/22/18 12:00 99 10/22/18 12:00 98.2 102 23 141/82 (101) 96 10/22/18 08:00 Nasal Cannula 3.0 10/22/18 08:00 99.2 105 24 147/77 (100) 96 10/22/18 08:00 107 10/22/18 07:41 101 20 100 Nasal Cannula 2.0 28 10/22/18 07:34 Nasal Cannula 2.0 28 10/22/18 07:31 95 Nasal Cannula 2.0 28 10/22/18 07:31 105 18 95 Nasal Cannula 2.0 28 10/22/18 04:02 107 10/22/18 04:00 109 20 100 Nasal Cannula 2.0 28 10/22/18 04:00 97.7 107 24 130/77 (94) 97 10/22/18 04:00 Nasal Cannula 3.0 10/22/18 03:49 107 18 97 Nasal Cannula 2.0 28 10/22/18 00:00 Nasal Cannula 3.0 10/22/18 00:00 97.7 104 24 137/80 (99) 96 10/21/18 23:46 107 20 100 Nasal Cannula 2.0 28 10/21/18 23:34 104 18 97 Nasal Cannula 2.0 28 10/21/18 23:05 102 10/21/18 20:00 102 10/21/18 20:00 100 20 100 Nasal Cannula 2.0 28 10/21/18 20:00 98.3 102 36 145/79 (101) 97 10/21/18 20:00 Nasal Cannula 3.0 10/21/18 20:00 96 Nasal Cannula 2.0 28 10/21/18 20:00 Nasal Cannula 2.0 28 10/21/18 19:50 98 18 96 Nasal Cannula 2.0 28 I&O Intake and Output 10/21/18 10/22/18 19:00 07:00 Intake Total 1350 ml 900 ml Output Total 1400 ml 1200 ml Balance -50 ml -300 ml Intake Free Water 50 ml IV Total 1300 ml 900 ml Output Urine Total 750 ml 500 ml Stool Total 200 ml 300 ml Gastric Drainage Total 450 ml 400 ml Drains: other Cardiovascular: RSR Respiratory: clear Abdomen: soft, distended, non-tender, decreased bowel sounds Laboratory Tests Test 10/22/18 04:00 White Blood Count 11.0 K/UL (4.8-10.8) H Red Blood Count 2.88 M/UL (4.20-5.40) L Hemoglobin 8.9 G/DL (12.0-16.0) L Hematocrit 28.4 % (37.0-47.0) L Mean Corpuscular Volume 99 FL (80-99) Mean Corpuscular Hemoglobin 30.8 PG (27.0-31.0) Mean Corpuscular Hemoglobin Concent 31.2 G/DL (32.0-36.0) L Red Cell Distribution Width 22.7 % (11.6-14.8) H Platelet Count 106 K/UL (150-450) L Mean Platelet Volume 5.5 FL (6.5-10.1) L Neutrophils (%) (Auto) 79.3 % (45.0-75.0) H Lymphocytes (%) (Auto) 8.7 % (20.0-45.0) L Monocytes (%) (Auto) 6.6 % (1.0-10.0) Eosinophils (%) (Auto) 4.2 % (0.0-3.0) H Basophils (%) (Auto) 1.2 % (0.0-2.0) Sodium Level 148 MMOL/L (136-145) H Potassium Level 3.6 MMOL/L (3.5-5.1) Chloride Level 115 MMOL/L (98-107) H Carbon Dioxide Level 25 MMOL/L (21-32) Anion Gap 9 mmol/L (5-15) Blood Urea Nitrogen 14 mg/dL (7-18) Creatinine 1.1 MG/DL (0.55-1.30) Estimat Glomerular Filtration Rate 51.0 mL/min (>60) Glucose Level 186 MG/DL (74-106) H Uric Acid 6.9 MG/DL (2.6-7.2) Calcium Level 9.8 MG/DL (8.5-10.1) Phosphorus Level 2.8 MG/DL (2.5-4.9) Magnesium Level 1.3 MG/DL (1.8-2.4) L Total Bilirubin 7.3 MG/DL (0.2-1.0) H Direct Bilirubin 5.3 MG/DL (0.0-0.3) H Aspartate Amino Transf (AST/SGOT) 65 U/L (15-37) H Alanine Aminotransferase (ALT/SGPT) 181 U/L (12-78) H Alkaline Phosphatase 386 U/L (46-116) H Pro-B-Type Natriuretic Peptide 422 pg/mL (0-125) H Total Protein 5.5 G/DL (6.4-8.2) L Albumin 2.2 G/DL (3.4-5.0) L Globulin 3.3 g/dL Albumin/Globulin Ratio 0.7 (1.0-2.7) L Plan Problems: (1) Multiple injuries due to trauma (2) Sepsis Assessment & Plan: Labs noted lactic acidosis improved with resuscitation CT findings: Limited assessment of the GI tract, due to lack of enteric contrast administration. Exam is also limited due to patient motion artifact and lack of IV contrast administration Evidence of hepatic cirrhosis Small amount of ascites, likely related to the above Surgically absent gallbladder Bilateral basilar pulmonary parenchymal atelectatic changes and possible patchy consolidation Minimal edema of the bilateral flank subcutaneous fat Other findings as noted, including degenerative spondylosis, right hepatic lobe capsular calcification, Quiroz catheter has made a great improvement. denies abd pain. labs improved. decompensated liver cirrhosis LFT's abnormal leukocytosis overall improved but prognosis still guarded Limited assessment of the GI tract, due to lack of enteric contrast administration Abdominal ascites, increased in extent since prior study Increased edema of the subcutaneous fat, since previous study Hepatic surface nodularity, consistent with cirrhosis, also previously reported Borderline splenomegaly Bilateral basilar pulmonary patchy consolidation and atelectasis as well as some congestion. Findings as noted, including degenerative spondylosis, PICC, Quiroz catheter, rectal tube, nasogastric tube -NG tube -NPO -paracentesis ordered - was not performed today. US without significant fluid for procedure? -iv fluids -iv abx -trend labs will follow with recs thank you (3) Liver cirrhosis Josh Samuel Oct 22, 2018 16:36
--- NOTE | 2018-10-22 16:50 | Diagnostic Imaging Report ---
Indication: Abdominal distention Technique: Grayscale images of the peritoneal space in anticipation of possible therapeutic paracentesis Comparison: None. Reference made to CT scan dated 10/19/2018, as well as ultrasound dated 10/11/2018 Findings: Small amount of ascites fluid is seen in all 4 quadrants. Impression: Small amount of ascites fluid is present. Sufficient for diagnostic paracentesis if deemed necessary, but presumably not the source of patient's distention
--- NOTE | 2018-10-22 17:22 | General Progress Note ---
Assessment/Plan Assessment/Plan Assessment and Recs: # Leukocytosis/Elevated white blood cell count, unspecified likely related to underlying stress reaction, or underlying infection --> have reviewed peripheral smear and bandemia/neutrophilia noted --> continue antibiotics if they have been started by ID team (on zosyn at this time) --> monitor for resolution -->WBC trend: 14-->10-->15-->12-->11 # Thrombocytopenia - potential causes multifactorial, evaluate liver and viral etiologies to begin, also could be related to underlying medications patient has received. Hx of cirrhosis in the past noted on us --> Hep panel and HIV negative --> CT a/p show cirrhosis as well as us --> Peripheral smear ordered to evaluate for blasts /schistocytes is negative --> abx and other meds have been reviewed --> ok for ppx if plt >50k w/ either heparin or lovenox --> Transfuse if Plt < 20k and fever, or if Plt < 10k without fever --> HIT negative, hold off heparin -->Plt trend : 54-->92-->106 # Anemia of iron deficiency as noted with low % sat and tibc elevated --> Anemia workup has been reviewed --> No evidence of hemolysis is noted, peripheral smear has been reviewed. --> Hgb goal >7. Transfuse prn. --> Iron IV X 5 days already given --> Medications have been reviewed # CEA of 10.5 --> Ct of abdomen/pelvis reviewed and is negative # Sepsis likely contributing to low plts --> on abx as needed # Shock, hypovolemic and distributive --> per id and pulm/cc care # Multisystem organ failure. # Lactic acidosis. # JONNATHAN. # Abnormal LFTs, likely shock liver. # Abnormal troponin, likely demand ischemia. # Obesity. # Respiratory failure on vent --> now extubated The timing of this note does not necessarily reflect the time of the patient was seen. Greatly appreciate consultation! Subjective Allergies: Coded Allergies: No Known Allergies (Unverified , 05/06/18) Subjective 10/12: Pt was seen in ICU on Vent and off pressors, developed atrial fib, wbc trending down to 13, plt trending down to 60 3: remains in the icu, monitoring labs, plts stabilizing, remains critically ill, cea elev 10/15: In ICU on Vent and off pressors, plt 62, no events 10/16 wbc trending up at 14,plt low at 48,weaning well from vent. no acute events , family at bedside 10/17: plts remain low, no events, weaned off vent, no complaints, off pressors 10/18: seen by bedside, wbc trending up at 15, plt low at 50, no events, needs video swallow. NGT 10/19: wbc remains elevated, plt 54, no acute distress reported 10/21: seen by bedside, still with lots of NG tube output, wbc 12, plt trending up 10/22: awake, alert,has high NG tube residual, wbc 11, no events Objective Last 24 Hour Vital Signs Date Time Temp Pulse Resp B/P (MAP) Pulse Ox O2 Delivery O2 Flow Rate FiO2 10/22/18 16:00 Nasal Cannula 3.0 10/22/18 12:00 Nasal Cannula 3.0 10/22/18 12:00 99 10/22/18 12:00 98.2 102 23 141/82 (101) 96 10/22/18 08:00 Nasal Cannula 3.0 10/22/18 08:00 99.2 105 24 147/77 (100) 96 10/22/18 08:00 107 10/22/18 07:41 101 20 100 Nasal Cannula 2.0 28 10/22/18 07:34 Nasal Cannula 2.0 28 10/22/18 07:31 95 Nasal Cannula 2.0 28 10/22/18 07:31 105 18 95 Nasal Cannula 2.0 28 10/22/18 04:02 107 10/22/18 04:00 109 20 100 Nasal Cannula 2.0 28 10/22/18 04:00 97.7 107 24 130/77 (94) 97 10/22/18 04:00 Nasal Cannula 3.0 10/22/18 03:49 107 18 97 Nasal Cannula 2.0 28 10/22/18 00:00 Nasal Cannula 3.0 10/22/18 00:00 97.7 104 24 137/80 (99) 96 10/21/18 23:46 107 20 100 Nasal Cannula 2.0 28 10/21/18 23:34 104 18 97 Nasal Cannula 2.0 28 10/21/18 23:05 102 10/21/18 20:00 102 10/21/18 20:00 100 20 100 Nasal Cannula 2.0 28 10/21/18 20:00 98.3 102 36 145/79 (101) 97 10/21/18 20:00 Nasal Cannula 3.0 10/21/18 20:00 96 Nasal Cannula 2.0 28 10/21/18 20:00 Nasal Cannula 2.0 28 10/21/18 19:50 98 18 96 Nasal Cannula 2.0 28 Intake and Output 10/21/18 10/22/18 19:00 07:00 Intake Total 1350 ml 900 ml Output Total 1400 ml 1200 ml Balance -50 ml -300 ml Intake Free Water 50 ml IV Total 1300 ml 900 ml Output Urine Total 750 ml 500 ml Stool Total 200 ml 300 ml Gastric Drainage Total 450 ml 400 ml Laboratory Tests 10/22/18 04:00: White Blood Count 11.0H, Red Blood Count 2.88L, Hemoglobin 8.9L, Hematocrit 28.4L, Mean Corpuscular Volume 99, Mean Corpuscular Hemoglobin 30.8, Mean Corpuscular Hemoglobin Concent 31.2L, Red Cell Distribution Width 22.7H, Platelet Count 106L, Mean Platelet Volume 5.5L, Neutrophils (%) (Auto) 79.3H, Lymphocytes (%) (Auto) 8.7L, Monocytes (%) (Auto) 6.6, Eosinophils (%) (Auto) 4.2H, Basophils (%) (Auto) 1.2, Sodium Level 148H, Potassium Level 3.6, Chloride Level 115H, Carbon Dioxide Level 25, Anion Gap 9, Blood Urea Nitrogen 14, Creatinine 1.1, Estimat Glomerular Filtration Rate 51.0, Glucose Level 186H , Uric Acid 6.9, Calcium Level 9.8, Phosphorus Level 2.8, Magnesium Level 1.3L, Total Bilirubin 7.3H, Direct Bilirubin 5.3H, Aspartate Amino Transf (AST/SGOT) 65H, Alanine Aminotransferase (ALT/SGPT) 181H, Alkaline Phosphatase 386H, Pro-B- Type Natriuretic Peptide 422H, Total Protein 5.5L, Albumin 2.2L, Globulin 3.3, Albumin/Globulin Ratio 0.7L Height (Feet): 5 Height (Inches): 1.00 Weight (Pounds): 250 Objective PHYSICAL EXAMINATION: VITAL SIGNS: reviewed, saturating 98% on NC++, GENERAL: She is an obese female, confused. HEENT: Normocephalic and atraumatic. Oropharynx is clear with dry mucous membranes., [place] tube++ NECK: Supple without lymphadenopathy or JVP. CHEST: Clear. HEART: Regular. ABDOMEN: Benign. EXTREMITIES: No cyanosis, clubbing, or edema. There are some ecchymoses in bilateral lower extremities. Kurtis Villagomez MD Oct 22, 2018 17:22
--- NOTE | 2018-10-22 17:52 | Cardiac Electrophysiology PN ---
Assessment/Plan Assessment/Plan 1. Atrial fib with RVR. Off Beta janet or CA janet for hypotension. On Dig 0.125 qod and amiodarone 200 daily. In SR DC Amiodarone for high LFTs and Bilirubin 7.3 2. S/P Septic shock. On broad spectrum IV antibiotic. 3. Troponin leak. The levels are flat and likely due to this patient's sepsis and septic shock. Her echocardiogram showed ejection fraction 60% to 65% and EKG showed no acute ischemic changes. 4. Nonsustained VT. Despite Amiodarone. DC Amio EF 65% 5. Diabetes. 6. Renal failure. 7. Morbid obesity. 8. Failed Swallow eval. NG tube in 9. S/P Respiratory failure, Extubated 10. Cirrhosis, high Bilirubin and ascites. Paracentesis pending DW RN and Dr Poe Subjective Subjective In restraints.NG to suction. In SR. Has short runs of nonsustained VT Objective Last 24 Hour Vital Signs Date Time Temp Pulse Resp B/P (MAP) Pulse Ox O2 Delivery O2 Flow Rate FiO2 10/22/18 16:00 Nasal Cannula 3.0 10/22/18 12:00 Nasal Cannula 3.0 10/22/18 12:00 99 10/22/18 12:00 98.2 102 23 141/82 (101) 96 10/22/18 08:00 Nasal Cannula 3.0 10/22/18 08:00 99.2 105 24 147/77 (100) 96 10/22/18 08:00 107 10/22/18 07:41 101 20 100 Nasal Cannula 2.0 28 10/22/18 07:34 Nasal Cannula 2.0 28 10/22/18 07:31 95 Nasal Cannula 2.0 28 10/22/18 07:31 105 18 95 Nasal Cannula 2.0 28 10/22/18 04:02 107 10/22/18 04:00 109 20 100 Nasal Cannula 2.0 28 10/22/18 04:00 97.7 107 24 130/77 (94) 97 10/22/18 04:00 Nasal Cannula 3.0 10/22/18 03:49 107 18 97 Nasal Cannula 2.0 28 10/22/18 00:00 Nasal Cannula 3.0 10/22/18 00:00 97.7 104 24 137/80 (99) 96 10/21/18 23:46 107 20 100 Nasal Cannula 2.0 28 10/21/18 23:34 104 18 97 Nasal Cannula 2.0 28 10/21/18 23:05 102 10/21/18 20:00 102 10/21/18 20:00 100 20 100 Nasal Cannula 2.0 28 10/21/18 20:00 98.3 102 36 145/79 (101) 97 10/21/18 20:00 Nasal Cannula 3.0 10/21/18 20:00 96 Nasal Cannula 2.0 28 10/21/18 20:00 Nasal Cannula 2.0 28 10/21/18 19:50 98 18 96 Nasal Cannula 2.0 28 Intake and Output 10/21/18 10/22/18 19:00 07:00 Intake Total 1350 ml 900 ml Output Total 1400 ml 1200 ml Balance -50 ml -300 ml Intake Free Water 50 ml IV Total 1300 ml 900 ml Output Urine Total 750 ml 500 ml Stool Total 200 ml 300 ml Gastric Drainage Total 450 ml 400 ml Laboratory Tests Test 10/22/18 04:00 White Blood Count 11.0 K/UL (4.8-10.8) H Red Blood Count 2.88 M/UL (4.20-5.40) L Hemoglobin 8.9 G/DL (12.0-16.0) L Hematocrit 28.4 % (37.0-47.0) L Mean Corpuscular Volume 99 FL (80-99) Mean Corpuscular Hemoglobin 30.8 PG (27.0-31.0) Mean Corpuscular Hemoglobin Concent 31.2 G/DL (32.0-36.0) L Red Cell Distribution Width 22.7 % (11.6-14.8) H Platelet Count 106 K/UL (150-450) L Mean Platelet Volume 5.5 FL (6.5-10.1) L Neutrophils (%) (Auto) 79.3 % (45.0-75.0) H Lymphocytes (%) (Auto) 8.7 % (20.0-45.0) L Monocytes (%) (Auto) 6.6 % (1.0-10.0) Eosinophils (%) (Auto) 4.2 % (0.0-3.0) H Basophils (%) (Auto) 1.2 % (0.0-2.0) Sodium Level 148 MMOL/L (136-145) H Potassium Level 3.6 MMOL/L (3.5-5.1) Chloride Level 115 MMOL/L (98-107) H Carbon Dioxide Level 25 MMOL/L (21-32) Anion Gap 9 mmol/L (5-15) Blood Urea Nitrogen 14 mg/dL (7-18) Creatinine 1.1 MG/DL (0.55-1.30) Estimat Glomerular Filtration Rate 51.0 mL/min (>60) Glucose Level 186 MG/DL (74-106) H Uric Acid 6.9 MG/DL (2.6-7.2) Calcium Level 9.8 MG/DL (8.5-10.1) Phosphorus Level 2.8 MG/DL (2.5-4.9) Magnesium Level 1.3 MG/DL (1.8-2.4) L Total Bilirubin 7.3 MG/DL (0.2-1.0) H Direct Bilirubin 5.3 MG/DL (0.0-0.3) H Aspartate Amino Transf (AST/SGOT) 65 U/L (15-37) H Alanine Aminotransferase (ALT/SGPT) 181 U/L (12-78) H Alkaline Phosphatase 386 U/L (46-116) H Pro-B-Type Natriuretic Peptide 422 pg/mL (0-125) H Total Protein 5.5 G/DL (6.4-8.2) L Albumin 2.2 G/DL (3.4-5.0) L Globulin 3.3 g/dL Albumin/Globulin Ratio 0.7 (1.0-2.7) L Objective HEAD AND NECK: No JVD. NG tube in LUNGS: Coarse rhonchi. CARDIOVASCULAR: Regular S1, S2 with no gallop or murmur. ABDOMEN: Obese. EXTREMITIES: No pitting edema. Sean Montanez MD Oct 22, 2018 17:52
--- NOTE | 2018-10-22 19:20 | NUR ---
NURSE NOTES: Received patient from KARI BRIGHT. Patient is lethargic, on 3L nasal cannula and not showing signs and symptoms of pain and distress. Family members are at bedside. will continue plan of care.
--- NOTE | 2018-10-22 19:20 | NUR ---
HAND-OFF: Report given to .ABDIRIZAK PIERCE.
--- NOTE | 2018-10-22 19:56 | General Progress Note ---
Assessment/Plan Problem List: (1) Hypotension ICD Codes: I95.9 - Hypotension, unspecified SNOMED: 91869269 (2) Hyperglycemia ICD Codes: R73.9 - Hyperglycemia, unspecified SNOMED: 57611274 (3) Dyspnea ICD Codes: R06.00 - Dyspnea, unspecified SNOMED: 723648001 (4) Hypoxemia ICD Codes: R09.02 - Hypoxemia SNOMED: 938523456 (5) Contusion of left knee ICD Codes: S80.02XA - Contusion of left knee, initial encounter SNOMED: 22002321 (6) Sepsis ICD Codes: A41.9 - Sepsis, unspecified organism SNOMED: 26597808 (7) Septic shock ICD Codes: A41.9 - Sepsis, unspecified organism; R65.21 - Severe sepsis with septic shock SNOMED: 68599987 (8) Liver cirrhosis ICD Codes: K74.60 - Unspecified cirrhosis of liver SNOMED: 57948560 (9) Pneumonia ICD Codes: J18.9 - Pneumonia, unspecified organism SNOMED: 104955950 (10) Respiratory disorder with ventilator dependence ICD Codes: J98.9 - Respiratory disorder, unspecified; Z99.11 - Dependence on respirator [ventilator] status SNOMED: 74314785, 528037037 (11) Shock liver ICD Codes: K72.00 - Acute and subacute hepatic failure without coma SNOMED: 310305460 Status: progressing Assessment/Plan elev lft abx per id afebrile poor prognosis encelphalopathy edema cihrrosis sepsis obesity morbid pna Subjective ROS Limited/Unobtainable: Yes Allergies: Coded Allergies: No Known Allergies (Unverified , 05/06/18) Objective Last 24 Hour Vital Signs Date Time Temp Pulse Resp B/P (MAP) Pulse Ox O2 Delivery O2 Flow Rate FiO2 10/22/18 16:00 91 10/22/18 16:00 98.0 93 24 158/77 (104) 98 10/22/18 16:00 Nasal Cannula 3.0 10/22/18 12:00 Nasal Cannula 3.0 10/22/18 12:00 99 10/22/18 12:00 98.2 102 23 141/82 (101) 96 10/22/18 08:00 Nasal Cannula 3.0 10/22/18 08:00 99.2 105 24 147/77 (100) 96 10/22/18 08:00 107 10/22/18 07:41 101 20 100 Nasal Cannula 2.0 28 10/22/18 07:34 Nasal Cannula 2.0 28 10/22/18 07:31 95 Nasal Cannula 2.0 28 10/22/18 07:31 105 18 95 Nasal Cannula 2.0 28 10/22/18 04:02 107 10/22/18 04:00 109 20 100 Nasal Cannula 2.0 28 10/22/18 04:00 97.7 107 24 130/77 (94) 97 10/22/18 04:00 Nasal Cannula 3.0 10/22/18 03:49 107 18 97 Nasal Cannula 2.0 28 10/22/18 00:00 Nasal Cannula 3.0 10/22/18 00:00 97.7 104 24 137/80 (99) 96 10/21/18 23:46 107 20 100 Nasal Cannula 2.0 28 10/21/18 23:34 104 18 97 Nasal Cannula 2.0 28 10/21/18 23:05 102 10/21/18 20:00 102 10/21/18 20:00 100 20 100 Nasal Cannula 2.0 28 10/21/18 20:00 98.3 102 36 145/79 (101) 97 10/21/18 20:00 Nasal Cannula 3.0 10/21/18 20:00 96 Nasal Cannula 2.0 28 10/21/18 20:00 Nasal Cannula 2.0 28 Intake and Output 10/21/18 10/22/18 19:00 07:00 Intake Total 1350 ml 900 ml Output Total 1400 ml 1200 ml Balance -50 ml -300 ml Intake Free Water 50 ml IV Total 1300 ml 900 ml Output Urine Total 750 ml 500 ml Stool Total 200 ml 300 ml Gastric Drainage Total 450 ml 400 ml Laboratory Tests 10/22/18 04:00: White Blood Count 11.0H, Red Blood Count 2.88L, Hemoglobin 8.9L, Hematocrit 28.4L, Mean Corpuscular Volume 99, Mean Corpuscular Hemoglobin 30.8, Mean Corpuscular Hemoglobin Concent 31.2L, Red Cell Distribution Width 22.7H, Platelet Count 106L, Mean Platelet Volume 5.5L, Neutrophils (%) (Auto) 79.3H, Lymphocytes (%) (Auto) 8.7L, Monocytes (%) (Auto) 6.6, Eosinophils (%) (Auto) 4.2H, Basophils (%) (Auto) 1.2, Sodium Level 148H, Potassium Level 3.6, Chloride Level 115H, Carbon Dioxide Level 25, Anion Gap 9, Blood Urea Nitrogen 14, Creatinine 1.1, Estimat Glomerular Filtration Rate 51.0, Glucose Level 186H , Uric Acid 6.9, Calcium Level 9.8, Phosphorus Level 2.8, Magnesium Level 1.3L, Total Bilirubin 7.3H, Direct Bilirubin 5.3H, Aspartate Amino Transf (AST/SGOT) 65H, Alanine Aminotransferase (ALT/SGPT) 181H, Alkaline Phosphatase 386H, Pro-B- Type Natriuretic Peptide 422H, Total Protein 5.5L, Albumin 2.2L, Globulin 3.3, Albumin/Globulin Ratio 0.7L Height (Feet): 5 Height (Inches): 1.00 Weight (Pounds): 250 General Appearance: confused Neck: supple Cardiovascular: normal rate Abdomen: soft Michael Kelley MD Oct 22, 2018 19:56
[2018-10-22 20:00] VITALS: BP 139/79
[2018-10-22] MEDS: Dyna-Hex 2% Top Sol 2oz TOPIC SCH (21:33)
[2018-10-23] VITALS: BP 130/77
[2018-10-23] MEDS: Albuterol/Ipratropium 3ml neb HHN SCH ×6 (03:01→23:00)
[2018-10-23 04:00] VITALS: BP 112/60
[2018-10-23 04:50] LABS: BASOPHILS % (AUTO) 1.5 % (0.0-2.0); EOSINOPHILS % (AUTO) 4.4 % (0.0-3.0); HEMATOCRIT 27.3 % (37.0-47.0); HEMOGLOBIN 8.6 G/DL (12.0-16.0); LYMPHOCYTES % (AUTO) 11.2 % (20.0-45.0); MEAN CORPUSCULAR VOLUME 98 FL (80-99); MONOCYTES % (AUTO) 7.9 % (1.0-10.0); PLATELET COUNT 115 K/UL (150-450); RED BLOOD COUNT 2.78 M/UL (4.20-5.40); RED CELL DISTRIBUTION WIDTH 22.6 % (11.6-14.8)
[2018-10-23 05:03] LABS: AMMONIA 92 umol/L (11-32)
[2018-10-23 05:22] LABS: ALANINE AMINOTRANSFERASE 148 U/L (12-78); ALBUMIN/GLOBULIN RATIO 0.6 (1.0-2.7); ALKALINE PHOSPHATASE 367 U/L (46-116); ANION GAP 7 mmol/L (5-15); ASPARTATE AMINO TRANSFERASE 72 U/L (15-37); BILIRUBIN,TOTAL 6.9 MG/DL (0.2-1.0); BLOOD UREA NITROGEN 11 mg/dL (7-18); CALCIUM 9.8 MG/DL (8.5-10.1); CARBON DIOXIDE 25 MMOL/L (21-32); CHLORIDE 112 MMOL/L (98-107); CREATININE 1.1 MG/DL (0.55-1.30); GAMMA GLUTAMYL TRANSPEPTIDASE 299 U/L (5-85); PHOSPHORUS 2.8 MG/DL (2.5-4.9); POTASSIUM 3.3 MMOL/L (3.5-5.1); SODIUM 144 MMOL/L (136-145)
[2018-10-23] MEDS: Acyclovir 200mg Cap ORAL SCH ×3 (05:30→21:09)
[2018-10-23] MEDS: Metoclopramide 10mg/2ml Inj IVP SCH ×4 (05:30→23:20)
[2018-10-23] MEDS: NovoLOG Insulin Flexpen SUBQ SCH ×4 (05:33→21:10)
--- NOTE | 2018-10-23 07:10 | NUR ---
NURSE NOTES: RECEIVED BED SIDE REPORT FROM ABDIRIZAK RADARMAN OF NOC SHIFT.RECEIVED PT WITH HOB ELEVATED 45 DEGREE EYES OPENS WITH VERBAL AND TACTILE STIMULI.PT WITH NGT PATENT CONNECTED TO LOW INTERMITTENT SUCTIONING YELLOWISH DRAINAGE NOTE.PT WITH PICC-LINE ON LT UPPER ARM IN PLACE PATENT AND INTACT .PT WITH RECTAL TUBE DRAINING YELLOW WATERY STOOLS COLORS NOTED.PT WITH BILAT SOFT WRIST RESTRAINTS RELEASED AND PROVIDE PROM TO ALL EXTREMITIES.PT REPOSITIONED IN BED Q2 HRS TO PROVIDE COMFORT AND PREVENT FURTHER SKIN BREAK DOWN.PLACED BACK BILAT SOFT WRIST RESTRAINS TO PREVENT PT FROM PULLING MEDICAL DEVICES.PT REMAINS FREE OF INJURIES.DR BRUNNER CAME TO SEE THE PT AND MADE AWARE AND NOTIFIED REGARDING K+ 3.3.M.D ORDER TO GIVE KCL 40MEQ IVPB.ALL NEW ORDERS NOTED AND CARRIED OUT.WILL CONT TO MONITOR.
--- NOTE | 2018-10-23 07:32 | NUR ---
HAND-OFF: Report given to KARI BRIGHT.
[2018-10-23 08:00] VITALS: BP 129/61
[2018-10-23] MEDS: Lactulose 20gm/30ml UDC NG SCH ×3 (09:09→17:53)
[2018-10-23] MEDS: Digoxin 0.125mg tab NG SCH (09:10)
[2018-10-23] MEDS: Pantoprazole Inj IVP SCH ×2 (09:10→21:08)
[2018-10-23] MEDS: Spironolactone 25mg tab ORAL SCH (10:36)
--- NOTE | 2018-10-23 11:23 | Pulmonology Progress Note ---
Assessment/Plan Assessment/Plan ASSESSMENT: The patient is a 58-year-old female with a history of obesity, diabetes, hypertension, hyperlipidemia, and sciatica with chronic low back pain , DDD/DJD, presenting after a mechanical fall with altered mental status and confusion with likely sepsis and multisystem organ failure. PROBLEM LIST: 1. VDRF, EXTUBATED 10/16/18 2. Sepsis 3. Shock, hypovolemic and distributive. 4. Multisystem organ failure. 5. Lactic acidosis. 6. Anion gap metabolic acidosis. 7. JONNATHAN - BETTER 7. Abnormal LFTs, likely shock liver. 8. Abnormal troponin, likely demand ischemia. 9. Elevated D-dimer and PASP concerning for an acute PE 10. Obesity. 11. Diabetes. 12. Hypertension. 13. Chronic low back pain and sciatica. 14. Anemia/FOBT + 15. Thrombocytopenia 16. AFcRVR now in NSR 17. HyperNa 18. Herpes labialis TREATMENT PLAN: 1. Optimize pulmonary hygiene/mobilize as tolerated 2. Titrate down FiO2 to keep SaO2 < 90% 3. Observe off Abx per ID. On Acyclovir for herpes labialis 4. Continue D5W@75, IV lasix, PRN albumin 6. SSI, monitor BS 7. Follow up cards recs 8. GI and surgery recs, PRN para, NGT to LIS, NPO, ENDOSCOPY?, trend LFT's 9. VQ scan never done, Cr better awaiting CT-A to R/O PE 10. DVT prophylaxis: SCD 11. FC Subjective Allergies: Coded Allergies: No Known Allergies (Unverified , 05/06/18) Subjective AFVSS O2 needs stable para not done 2/2 not enough fluid Diffusely edematous + cough no SOB no F/C Objective Last 24 Hour Vital Signs Date Time Temp Pulse Resp B/P (MAP) Pulse Ox O2 Delivery O2 Flow Rate FiO2 10/23/18 10:02 96 Nasal Cannula 2.0 28 10/23/18 10:02 96 20 97 Nasal Cannula 2.0 28 10/23/18 10:02 Nasal Cannula 2.0 28 10/23/18 09:10 98 10/23/18 08:00 96 10/23/18 08:00 98.7 98 22 129/61 (83) 97 10/23/18 08:00 Nasal Cannula 3.0 10/23/18 07:00 Nasal Cannula 2.0 28 10/23/18 07:00 28 10/23/18 04:00 98.2 88 20 112/60 (77) 98 10/23/18 04:00 Nasal Cannula 3.0 10/23/18 03:23 98 10/23/18 03:10 28 10/23/18 03:10 98 20 Nasal Cannula 2.0 28 10/23/18 03:04 95 22 Nasal Cannula 2.0 28 10/23/18 03:01 95 22 96 Nasal Cannula 2.0 28 10/23/18 00:00 97.5 97 24 130/77 (94) 98 10/23/18 00:00 Nasal Cannula 3.0 10/22/18 23:43 96 10/22/18 21:02 96 Nasal Cannula 2.0 28 10/22/18 21:02 Nasal Cannula 2.0 28 10/22/18 20:00 Nasal Cannula 3.0 10/22/18 20:00 97.7 97 20 139/79 (99) 97 10/22/18 19:27 124 10/22/18 16:00 91 10/22/18 16:00 98.0 93 24 158/77 (104) 98 10/22/18 16:00 Nasal Cannula 3.0 10/22/18 12:00 Nasal Cannula 3.0 10/22/18 12:00 99 10/22/18 12:00 98.2 102 23 141/82 (101) 96 Intake and Output 10/22/18 10/23/18 18:59 06:59 Intake Total 975 ml 857.5 ml Output Total 500 ml 870 ml Balance 475 ml -12.5 ml Intake Free Water 150 ml IV Total 825 ml 857.5 ml Output Urine Total 400 ml 425 ml Stool Total 300 ml Gastric Drainage Total 100 ml 145 ml # Bowel Movements 50 General Appearance: no acute distress, cachetic HEENT: normocephalic, atraumatic, anicteric, mucous membranes moist Respiratory/Chest: chest wall non-tender, lungs clear, crackles/rales Cardiovascular: normal peripheral pulses, normal rate, regular rhythm Abdomen: normal bowel sounds, soft, non tender, distended Extremities: no cyanosis, no clubbing, other - 2+ MAREK Laboratory Tests 10/23/18 04:00: White Blood Count 10.0, Red Blood Count 2.78L, Hemoglobin 8.6L, Hematocrit 27.3L , Mean Corpuscular Volume 98, Mean Corpuscular Hemoglobin 31.1H, Mean Corpuscular Hemoglobin Concent 31.7L, Red Cell Distribution Width 22.6H, Platelet Count 115L, Mean Platelet Volume 6.1L, Neutrophils (%) (Auto) 75.0, Lymphocytes (%) (Auto) 11.2L, Monocytes (%) (Auto) 7.9, Eosinophils (%) (Auto) 4.4H, Basophils (%) (Auto) 1.5, Sodium Level 144, Potassium Level 3.3L, Chloride Level 112H, Carbon Dioxide Level 25, Anion Gap 7, Blood Urea Nitrogen 11, Creatinine 1.1, Estimat Glomerular Filtration Rate 51.0, Glucose Level 189H , Uric Acid 6.1, Calcium Level 9.8, Phosphorus Level 2.8, Magnesium Level 2.0, Total Bilirubin 6.9H, Direct Bilirubin 5.0H, Gamma Glutamyl Transpeptidase 299H , Aspartate Amino Transf (AST/SGOT) 72H, Alanine Aminotransferase (ALT/SGPT) 148H, Alkaline Phosphatase 367H, Ammonia 92H, C-Reactive Protein, Quantitative 7.4H, Pro-B-Type Natriuretic Peptide 255H, Total Protein 5.4L, Albumin 2.0L, Globulin 3.4, Albumin/Globulin Ratio 0.6L Current Medications Medications (Trade) Dose Ordered Sig/Patricia Route PRN Reason Start Time Stop Time Status Last Admin Dose Admin Acyclovir (Zovirax) 400 mg EVERY 8 HOURS ORAL 10/22/18 10:15 11/21/18 10:14 10/23/18 05:30 Albuterol/ Ipratropium (Albuterol/ Ipratropium) 3 ml Q4HRT HHN 10/23/18 03:00 10/28/18 02:59 10/23/18 10:02 Chlorhexidine Gluconate (Nguyen-Hex 2%) 1 applic DAILY@2000 TOPIC 10/17/18 20:00 11/09/18 19:59 10/22/18 21:33 Dextrose 1,000 ml @ 75 mls/hr [id number] IV 10/19/18 13:30 11/18/18 13:29 10/23/18 10:48 Dextrose (Dextrose 50%) 25 ml Q30M PRN IV Hypoglycemia 10/17/18 14:45 11/10/18 13:44 Dextrose (Dextrose 50%) 50 ml Q30M PRN IV Hypoglycemia 10/17/18 14:45 11/10/18 13:44 Digoxin (Lanoxin) 0.125 mg QOD NG 10/19/18 09:00 11/15/18 08:59 10/23/18 09:10 Diphenhydramine HCl (Benadryl) 25 mg Q6H PRN IVP Itching 10/17/18 14:30 11/08/18 14:29 Furosemide (Lasix) 40 mg DAILY IV 10/23/18 09:45 11/22/18 09:44 10/23/18 10:37 Insulin Aspart (NovoLOG) BEFORE MEALS AND HS SUBQ 10/17/18 16:30 11/10/18 16:29 10/23/18 05:33 Iopamidol (Isovue-370 150ml) 150 ml NOW PRN INJ Radiology Procedure 10/22/18 12:15 10/24/18 12:03 Lactulose (Cephulac) 30 gm THREE TIMES A DAY NG 10/17/18 18:00 11/12/18 17:59 10/23/18 09:09 Metoclopramide HCl (Reglan) 5 mg Q6H IVP 10/17/18 17:30 11/13/18 11:29 10/23/18 05:30 Midazolam HCl (Versed 2mg/2ml vial) 1 mg Q2H PRN IVP For Anxiety 10/17/18 14:30 11/11/18 14:29 Pantoprazole (Protonix) 40 mg EVERY 12 HOURS IVP 10/17/18 21:00 11/09/18 20:59 10/23/18 09:10 Potassium Chloride 100 ml @ 100 mls/hr Q1HR IVPB 10/23/18 09:00 10/23/18 12:59 10/23/18 10:36 Rifaximin (Xifaxan) 550 mg EVERY 12 HOURS ORAL 10/17/18 21:00 10/26/18 20:59 10/23/18 09:10 Spironolactone (Aldactone) 25 mg DAILY ORAL 10/23/18 09:45 11/22/18 09:44 10/23/18 10:36 Renato Delarosa MD Oct 23, 2018 11:23
[2018-10-23 12:00] VITALS: BP 138/77
--- NOTE | 2018-10-23 12:00 | NUR ---
NURSE NOTES:PT ESCORTED VIA BED WITH JESSIE REDD OF CT-DPT AND DANIELA TRANSPORT STAFF TO CT-DPT. PT HAD CT OF CHEST.PT TOLERATED WELL PROCEDURE.PT ESCORTED BACK TO HER ROOM.PT FAMILY AT BED SIDE.ALL NEEDS ATTENDED AND ANTICIPATED.WILL CONT TO MONITOR.
--- NOTE | 2018-10-23 12:28 | Infectious Diseases Prog Note ---
Assessment/Plan Assessment/Plan A: 1. Septic Shock resolved.culture are negative so far 2. aspiration pneumonia. 3. acute renal failure , resolved 4. Diabetes mellitus. 5. Obesity. 6. Lactic acidosis. 7. Anemia.s/p transfusion 8. Cirrhosis with ascites 9. Enteritis, ileus resolved 10. Leukocytosis improving 11. GI bleeding 12. 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0 10/23/18 07:00 Nasal Cannula 2.0 28 10/23/18 07:00 28 10/23/18 04:00 98.2 88 20 112/60 (77) 98 10/23/18 04:00 Nasal Cannula 3.0 10/23/18 03:23 98 10/23/18 03:10 28 10/23/18 03:10 98 20 Nasal Cannula 2.0 28 10/23/18 03:04 95 22 Nasal Cannula 2.0 28 10/23/18 03:01 95 22 96 Nasal Cannula 2.0 28 10/23/18 00:00 97.5 97 24 130/77 (94) 98 10/23/18 00:00 Nasal Cannula 3.0 10/22/18 23:43 96 10/22/18 21:02 96 Nasal Cannula 2.0 28 10/22/18 21:02 Nasal Cannula 2.0 28 10/22/18 20:00 Nasal Cannula 3.0 10/22/18 20:00 97.7 97 20 139/79 (99) 97 10/22/18 19:27 124 10/22/18 16:00 91 10/22/18 16:00 98.0 93 24 158/77 (104) 98 10/22/18 16:00 Nasal Cannula 3.0 Height (Feet): 5 Height (Inches): 1.00 Weight (Pounds): 249 HEENT: mucous membranes moist Respiratory/Chest: lungs clear Cardiovascular: normal rate, other - Left arm PICC line Abdomen: soft, non tender, other - NG tube Extremities: other - generalized edema Neurologic/Psychiatric: alert Laboratory Tests Test 10/23/18 04:00 White Blood Count 10.0 K/UL (4.8-10.8) Red Blood Count 2.78 M/UL (4.20-5.40) L Hemoglobin 8.6 G/DL (12.0-16.0) L Hematocrit 27.3 % (37.0-47.0) L Mean Corpuscular Volume 98 FL (80-99) Mean Corpuscular Hemoglobin 31.1 PG (27.0-31.0) H Mean Corpuscular Hemoglobin Concent 31.7 G/DL (32.0-36.0) L Red Cell Distribution Width 22.6 % (11.6-14.8) H Platelet Count 115 K/UL (150-450) L Mean Platelet Volume 6.1 FL (6.5-10.1) L Neutrophils (%) (Auto) 75.0 % (45.0-75.0) Lymphocytes (%) (Auto) 11.2 % (20.0-45.0) L Monocytes (%) (Auto) 7.9 % (1.0-10.0) Eosinophils (%) (Auto) 4.4 % (0.0-3.0) H Basophils (%) (Auto) 1.5 % (0.0-2.0) Sodium Level 144 MMOL/L (136-145) Potassium Level 3.3 MMOL/L (3.5-5.1) L Chloride Level 112 MMOL/L (98-107) H Carbon Dioxide Level 25 MMOL/L (21-32) Anion Gap 7 mmol/L (5-15) Blood Urea Nitrogen 11 mg/dL (7-18) Creatinine 1.1 MG/DL (0.55-1.30) Estimat Glomerular Filtration Rate 51.0 mL/min (>60) Glucose Level 189 MG/DL (74-106) H Uric Acid 6.1 MG/DL (2.6-7.2) Calcium Level 9.8 MG/DL (8.5-10.1) Phosphorus Level 2.8 MG/DL (2.5-4.9) Magnesium Level 2.0 MG/DL (1.8-2.4) Total Bilirubin 6.9 MG/DL (0.2-1.0) H Direct Bilirubin 5.0 MG/DL (0.0-0.3) H Gamma Glutamyl Transpeptidase 299 U/L (5-85) H Aspartate Amino Transf (AST/SGOT) 72 U/L (15-37) H Alanine Aminotransferase (ALT/SGPT) 148 U/L (12-78) H Alkaline Phosphatase 367 U/L (46-116) H Ammonia 92 umol/L (11-32) H C-Reactive Protein, Quantitative 7.4 mg/dL (0.00-0.90) H Pro-B-Type Natriuretic Peptide 255 pg/mL (0-125) H Total Protein 5.4 G/DL (6.4-8.2) L Albumin 2.0 G/DL (3.4-5.0) L Globulin 3.4 g/dL Albumin/Globulin Ratio 0.6 (1.0-2.7) L Current Medications Medications (Trade) Dose Ordered Sig/Patricia Route PRN Reason Start Time Stop Time Status Last Admin Dose Admin Acyclovir (Zovirax) 400 mg EVERY 8 HOURS ORAL 10/22/18 10:15 11/21/18 10:14 10/23/18 05:30 Albuterol/ Ipratropium (Albuterol/ Ipratropium) 3 ml Q4HRT HHN 10/23/18 03:00 10/28/18 02:59 10/23/18 10:02 Chlorhexidine Gluconate (Nguyen-Hex 2%) 1 applic DAILY@2000 TOPIC 10/17/18 20:00 11/09/18 19:59 10/22/18 21:33 Dextrose 1,000 ml @ 75 mls/hr [id number] IV 10/19/18 13:30 11/18/18 13:29 10/23/18 10:48 Dextrose (Dextrose 50%) 25 ml Q30M PRN IV Hypoglycemia 10/17/18 14:45 11/10/18 13:44 Dextrose (Dextrose 50%) 50 ml Q30M PRN IV Hypoglycemia 10/17/18 14:45 11/10/18 13:44 Digoxin (Lanoxin) 0.125 mg QOD NG 10/19/18 09:00 11/15/18 08:59 10/23/18 09:10 Diphenhydramine HCl (Benadryl) 25 mg Q6H PRN IVP Itching 10/17/18 14:30 11/08/18 14:29 Furosemide (Lasix) 40 mg DAILY IV 10/23/18 09:45 11/22/18 09:44 10/23/18 10:37 Insulin Aspart (NovoLOG) BEFORE MEALS AND HS SUBQ 10/17/18 16:30 11/10/18 16:29 10/23/18 05:33 Iopamidol (Isovue-370 150ml) 150 ml NOW PRN INJ Radiology Procedure 10/22/18 12:15 10/24/18 12:03 Lactulose (Cephulac) 30 gm THREE TIMES A DAY NG 10/17/18 18:00 11/12/18 17:59 10/23/18 09:09 Metoclopramide HCl (Reglan) 5 mg Q6H IVP 10/17/18 17:30 11/13/18 11:29 10/23/18 05:30 Midazolam HCl (Versed 2mg/2ml vial) 1 mg Q2H PRN IVP For Anxiety 10/17/18 14:30 11/11/18 14:29 Pantoprazole (Protonix) 40 mg EVERY 12 HOURS IVP 10/17/18 21:00 11/09/18 20:59 10/23/18 09:10 Potassium Chloride 100 ml @ 100 mls/hr Q1HR IVPB 10/23/18 09:00 10/23/18 12:59 10/23/18 10:36 Rifaximin (Xifaxan) 550 mg EVERY 12 HOURS ORAL 10/17/18 21:00 10/26/18 20:59 10/23/18 09:10 Spironolactone (Aldactone) 25 mg DAILY ORAL 10/23/18 09:45 11/22/18 09:44 10/23/18 10:36 Wesley Akers MD Oct 23, 2018 12:28
--- NOTE | 2018-10-23 12:33 | GI Progress Note ---
Assessment/Plan Problems: (1) Shock liver ICD Codes: K72.00 - Acute and subacute hepatic failure without coma SNOMED: 112363249 (2) Liver cirrhosis ICD Codes: K74.60 - Unspecified cirrhosis of liver SNOMED: 00396766 (3) Septic shock ICD Codes: A41.9 - Sepsis, unspecified organism; R65.21 - Severe sepsis with septic shock SNOMED: 20578411 (4) Sepsis ICD Codes: A41.9 - Sepsis, unspecified organism SNOMED: 74708811 (5) Respiratory disorder with ventilator dependence ICD Codes: J98.9 - Respiratory disorder, unspecified; Z99.11 - Dependence on respirator [ventilator] status SNOMED: 60851981, 535170141 (6) Normocytic anemia ICD Codes: D64.9 - Anemia, unspecified SNOMED: 358553377 Status: stable Status Narrative Discussed with Dr. Reynolds. Assessment/Plan unsuccessful paracentesis CT AP pending JAD, SMA, AMA negative maintain NPO + IVFs Lasix + Aldactone albumin x 1 ppi BID monitor H&H work up for elevated CEA when more stable xifaxan and lactulose reglan ATC Will d/c Amiodarone for now - discussed with cardiology Follow labs The patient was seen and examined at bedside and all new and available data was reviewed in the patients chart. I agree with the above findings, impression and plan. (Patient seen earlier today. Signature stamp does not reflect patient encounter time.). - Samuel Reynolds MD Subjective Subjective limited Objective Last 24 Hour Vital Signs Date Time Temp Pulse Resp B/P (MAP) Pulse Ox O2 Delivery O2 Flow Rate FiO2 10/23/18 10:12 98 20 99 Nasal Cannula 2.0 28 10/23/18 10:12 28 10/23/18 10:02 96 Nasal Cannula 2.0 28 10/23/18 10:02 96 20 97 Nasal Cannula 2.0 28 10/23/18 10:02 Nasal Cannula 2.0 28 10/23/18 09:10 98 10/23/18 08:00 96 10/23/18 08:00 98.7 98 22 129/61 (83) 97 10/23/18 08:00 Nasal Cannula 3.0 10/23/18 07:00 Nasal Cannula 2.0 28 10/23/18 07:00 28 10/23/18 04:00 98.2 88 20 112/60 (77) 98 10/23/18 04:00 Nasal Cannula 3.0 10/23/18 03:23 98 10/23/18 03:10 28 10/23/18 03:10 98 20 Nasal Cannula 2.0 28 10/23/18 03:04 95 22 Nasal Cannula 2.0 28 10/23/18 03:01 95 22 96 Nasal Cannula 2.0 28 10/23/18 00:00 97.5 97 24 130/77 (94) 98 10/23/18 00:00 Nasal Cannula 3.0 10/22/18 23:43 96 10/22/18 21:02 96 Nasal Cannula 2.0 28 10/22/18 21:02 Nasal Cannula 2.0 28 10/22/18 20:00 Nasal Cannula 3.0 10/22/18 20:00 97.7 97 20 139/79 (99) 97 10/22/18 19:27 124 10/22/18 16:00 91 10/22/18 16:00 98.0 93 24 158/77 (104) 98 10/22/18 16:00 Nasal Cannula 3.0 Intake and Output 10/22/18 10/23/18 18:59 06:59 Intake Total 975 ml 857.5 ml Output Total 500 ml 870 ml Balance 475 ml -12.5 ml Intake Free Water 150 ml IV Total 825 ml 857.5 ml Output Urine Total 400 ml 425 ml Stool Total 300 ml Gastric Drainage Total 100 ml 145 ml # Bowel Movements 50 Laboratory Tests Test 10/23/18 04:00 White Blood Count 10.0 K/UL (4.8-10.8) Red Blood Count 2.78 M/UL (4.20-5.40) L Hemoglobin 8.6 G/DL (12.0-16.0) L Hematocrit 27.3 % (37.0-47.0) L Mean Corpuscular Volume 98 FL (80-99) Mean Corpuscular Hemoglobin 31.1 PG (27.0-31.0) H Mean Corpuscular Hemoglobin Concent 31.7 G/DL (32.0-36.0) L Red Cell Distribution Width 22.6 % (11.6-14.8) H Platelet Count 115 K/UL (150-450) L Mean Platelet Volume 6.1 FL (6.5-10.1) L Neutrophils (%) (Auto) 75.0 % (45.0-75.0) Lymphocytes (%) (Auto) 11.2 % (20.0-45.0) L Monocytes (%) (Auto) 7.9 % (1.0-10.0) Eosinophils (%) (Auto) 4.4 % (0.0-3.0) H Basophils (%) (Auto) 1.5 % (0.0-2.0) Sodium Level 144 MMOL/L (136-145) Potassium Level 3.3 MMOL/L (3.5-5.1) L Chloride Level 112 MMOL/L (98-107) H Carbon Dioxide Level 25 MMOL/L (21-32) Anion Gap 7 mmol/L (5-15) Blood Urea Nitrogen 11 mg/dL (7-18) Creatinine 1.1 MG/DL (0.55-1.30) Estimat Glomerular Filtration Rate 51.0 mL/min (>60) Glucose Level 189 MG/DL (74-106) H Uric Acid 6.1 MG/DL (2.6-7.2) Calcium Level 9.8 MG/DL (8.5-10.1) Phosphorus Level 2.8 MG/DL (2.5-4.9) Magnesium Level 2.0 MG/DL (1.8-2.4) Total Bilirubin 6.9 MG/DL (0.2-1.0) H Direct Bilirubin 5.0 MG/DL (0.0-0.3) H Gamma Glutamyl Transpeptidase 299 U/L (5-85) H Aspartate Amino Transf (AST/SGOT) 72 U/L (15-37) H Alanine Aminotransferase (ALT/SGPT) 148 U/L (12-78) H Alkaline Phosphatase 367 U/L (46-116) H Ammonia 92 umol/L (11-32) H C-Reactive Protein, Quantitative 7.4 mg/dL (0.00-0.90) H Pro-B-Type Natriuretic Peptide 255 pg/mL (0-125) H Total Protein 5.4 G/DL (6.4-8.2) L Albumin 2.0 G/DL (3.4-5.0) L Globulin 3.4 g/dL Albumin/Globulin Ratio 0.6 (1.0-2.7) L Height (Feet): 5 Height (Inches): 1.00 Weight (Pounds): 249 General Appearance: WD/WN, no apparent distress, alert Cardiovascular: normal rate Respiratory/Chest: normal breath sounds, no respiratory distress Abdominal Exam: normal bowel sounds, non tender, soft, other - NGT Extremities: non-tender Cole Serna NP Oct 23, 2018 12:33
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
--- NOTE | 2018-10-23 13:02 | Diagnostic Imaging Report ---
ndication: Shortness of breath, elevated d-dimer Technique: IV administration nonionic contrast. Spiral acquisitions obtained from the lung bases to the lung apices. Multiplanar and 3-D reconstructions were generated. Total dose length product 1394.27 mGycm. CTDIvol(s) 46.31 mGy. Dose reduction achieved using automated exposure control Comparison: none Findings: Exam is limited by respiratory motion artifact. No definite intraluminal filling defects or other findings to suggest acute pulmonary embolus demonstrated. Normal caliber pulmonary arteries. The heart is mildly enlarged, but there is no evidence of isolated right ventricular dilatation. No evidence of thoracic aortic aneurysm or dissection. Normal branching anatomy of the great neck vessels which are normal in caliber. There is marked elevation of the right hemidiaphragm. There is considerable compressive atelectasis of portions of the right lower lobe. Patchy areas of consolidation and areas of groundglass opacity are seen in the lungs bilaterally. No definite effusions. There is a nasogastric tube in place. Otherwise unremarkable esophagus. No evidence of pericardial effusion. No mediastinal or hilar mass or adenopathy. There is a left arm PICC, tip terminating at the cavoatrial junction. The included portion of the thyroid is unremarkable. No axillary or chest wall mass or adenopathy. There are mild degenerative changes of the thoracic spine The included upper abdominal anatomy demonstrates a moderate to large amount of ascites. There is evidence of hepatic cirrhosis. The spleen is enlarged. Impression: Limited exam, due to respiratory motion artifact. No definite evidence of acute pulmonary embolus Mild cardiomegaly Elevated right hemidiaphragm. Resultant right basilar atelectatic changes, as well as atelectatic changes in the posterior lungs bilaterally. Consolidative and groundglass opacities may reflect areas of infiltrate or edema Evidence of hepatic cirrhosis, with ascites and splenomegaly, also previously described Nasogastric tube, left arm PICC incidentally noted The CT scanner at [facility] is accredited by the [employer] and the scans are performed using protocols designed to limit radiation exposure to as low as reasonably achievable to attain images of sufficient resolution adequate for diagnostic evaluation.
--- NOTE | 2018-10-23 14:07 | Nephrology Progress Note ---
Assessment/Plan Problem List: (1) JONNATHAN (acute kidney injury) Assessment: resolving (2) Shock liver (3) Septic shock (4) Respiratory disorder with ventilator dependence Assessment - Acute Oliguric Renal Failure Cr down to 1.1 - Respiratory disorder with s/p mechanical ventilator - Septic shock , Leukocytosis resolved - Pneumonia - Liver cirrhosis - Obese - Anemia . Plan mag IV as needed transfused 2 units previously down on IV fluid K and Phos IV as needed Hemodynamic support Pulmunary support Monitor renal parameters avoid nephrotoxics as best as possible per orders discussed with RN Subjective ROS Limited/Unobtainable: No Constitutional: Reports: malaise, weakness Objective Objective Last 24 Hour Vital Signs Date Time Temp Pulse Resp B/P (MAP) Pulse Ox O2 Delivery O2 Flow Rate FiO2 10/23/18 10:12 98 20 99 Nasal Cannula 2.0 28 10/23/18 10:12 28 10/23/18 10:02 96 Nasal Cannula 2.0 28 10/23/18 10:02 96 20 97 Nasal Cannula 2.0 28 10/23/18 10:02 Nasal Cannula 2.0 28 10/23/18 09:10 98 10/23/18 08:00 96 10/23/18 08:00 98.7 98 22 129/61 (83) 97 10/23/18 08:00 Nasal Cannula 3.0 10/23/18 07:00 Nasal Cannula 2.0 28 10/23/18 07:00 28 10/23/18 04:00 98.2 88 20 112/60 (77) 98 10/23/18 04:00 Nasal Cannula 3.0 10/23/18 03:23 98 10/23/18 03:10 28 10/23/18 03:10 98 20 Nasal Cannula 2.0 28 10/23/18 03:04 95 22 Nasal Cannula 2.0 28 10/23/18 03:01 95 22 96 Nasal Cannula 2.0 28 10/23/18 00:00 97.5 97 24 130/77 (94) 98 10/23/18 00:00 Nasal Cannula 3.0 10/22/18 23:43 96 10/22/18 21:02 96 Nasal Cannula 2.0 28 10/22/18 21:02 Nasal Cannula 2.0 28 10/22/18 20:00 Nasal Cannula 3.0 10/22/18 20:00 97.7 97 20 139/79 (99) 97 10/22/18 19:27 124 10/22/18 16:00 91 10/22/18 16:00 98.0 93 24 158/77 (104) 98 10/22/18 16:00 Nasal Cannula 3.0 Intake and Output 10/22/18 10/23/18 18:59 06:59 Intake Total 975 ml 857.5 ml Output Total 500 ml 870 ml Balance 475 ml -12.5 ml Intake Free Water 150 ml IV Total 825 ml 857.5 ml Output Urine Total 400 ml 425 ml Stool Total 300 ml Gastric Drainage Total 100 ml 145 ml # Bowel Movements 50 Laboratory Tests 10/23/18 04:00: White Blood Count 10.0, Red Blood Count 2.78L, Hemoglobin 8.6L, Hematocrit 27.3L , Mean Corpuscular Volume 98, Mean Corpuscular Hemoglobin 31.1H, Mean Corpuscular Hemoglobin Concent 31.7L, Red Cell Distribution Width 22.6H, Platelet Count 115L, Mean Platelet Volume 6.1L, Neutrophils (%) (Auto) 75.0, Lymphocytes (%) (Auto) 11.2L, Monocytes (%) (Auto) 7.9, Eosinophils (%) (Auto) 4.4H, Basophils (%) (Auto) 1.5, Sodium Level 144, Potassium Level 3.3L, Chloride Level 112H, Carbon Dioxide Level 25, Anion Gap 7, Blood Urea Nitrogen 11, Creatinine 1.1, Estimat Glomerular Filtration Rate 51.0, Glucose Level 189H , Uric Acid 6.1, Calcium Level 9.8, Phosphorus Level 2.8, Magnesium Level 2.0, Total Bilirubin 6.9H, Direct Bilirubin 5.0H, Gamma Glutamyl Transpeptidase 299H , Aspartate Amino Transf (AST/SGOT) 72H, Alanine Aminotransferase (ALT/SGPT) 148H, Alkaline Phosphatase 367H, Ammonia 92H, C-Reactive Protein, Quantitative 7.4H, Pro-B-Type Natriuretic Peptide 255H, Total Protein 5.4L, Albumin 2.0L, Globulin 3.4, Albumin/Globulin Ratio 0.6L Height (Feet): 5 Height (Inches): 1.00 Weight (Pounds): 249 General Appearance: no apparent distress Cardiovascular: tachycardia Respiratory/Chest: decreased breath sounds Abdomen: distended Objective NO CHANGE Fouladian,Alex MD Oct 23, 2018 14:07
--- NOTE | 2018-10-23 14:45 | NUR ---
RD ASSESSMENT & RECOMMENDATIONS SEE CARE ACTIVITY FOR COMPLETE ASSESSMENT DAILY ESTIMATED NEEDS: Needs based on Sepsis, obesity, DM 24-28, 64kg adj kcals/kg 6096-9530 total kcals 1.2-2, 64kg adj g protein/kg 77-128 g total protein Fluid per MD mL/kg total fluid mLs NUTRITION DIAGNOSIS: 1) Swallowing difficulty r/t respiratory status as evidenced by pt is now extubated, off pressors, BULLION WEIGHER w/ rec to continue NPO, nonoral feedings held at this time for gastric secretions, w/ NGT to LIS. 2) Altered nutrition related lab values r/t critcal care. septic shock and multi organ failure as evidenced by critically elev WBC-> now wnl, elev creat kinase (3542), elev LFT's, elev T bili (6.9) elev phos (5.2 -> wnl), elev Creat-> now wnl, elev ammonia (62-> 92), elev BNP (6076->658), elev A1C (11.0), elev BGs (189 186). CURRENT DIET:NPO PO DIET RECOMMENDATIONS: WHEN SAFE FOR PO-> CCHO LOW, CARDIAC/ texture per BULLION WEIGHER ENTERAL NUTRITION RECOMMENDATIONS: Glucerna 1.2 @ 55ml/hr x 24 hrs to provide 1320ml, 1584kcal, 79g prot, 1063ml free water * As medically able, resume TF of Glucenra 1.2 @ 15ml/hr x 6-8 hrs * Advance 10ml q 4-6 hrs as tolerated to goal * HOB over 30 degrees/ water flush per MD ADDITIONAL RECOMMENDATIONS: * CALIBRATED BED SCALE WTS * Monitor lytes, replete as needed * CONSIDER TPN IF UNABLE TO FEED VIA GI IN THE NEXT 3-5 DYAS -> NPO DAY 7 TODAY, STILL W/ HIGH NGT OUTPUT * Monitor liver fxn, renal fxn, BGs
--- NOTE | 2018-10-23 15:52 | General Progress Note ---
Assessment/Plan Assessment/Plan Assessment and Recs: # Leukocytosis/Elevated white blood cell count, unspecified likely related to underlying stress reaction, or underlying infection --> have reviewed peripheral smear and bandemia/neutrophilia noted --> continue antibiotics if they have been started by ID team (on zosyn at this time) --> monitor for resolution -->WBC trend: 14-->10-->15-->12-->11-->10 # Thrombocytopenia - potential causes multifactorial, evaluate liver and viral etiologies to begin, also could be related to underlying medications patient has received. Hx of cirrhosis in the past noted on us --> Hep panel and HIV negative --> CT a/p show cirrhosis as well as us --> Peripheral smear ordered to evaluate for blasts /schistocytes is negative --> abx and other meds have been reviewed --> ok for ppx if plt >50k w/ either heparin or lovenox --> Transfuse if Plt < 20k and fever, or if Plt < 10k without fever --> HIT negative, hold off heparin -->Plt trend : 54-->92-->106 # Anemia of iron deficiency as noted with low % sat and tibc elevated --> Anemia workup has been reviewed --> No evidence of hemolysis is noted, peripheral smear has been reviewed. --> Hgb goal >7. Transfuse prn. --> Iron IV X 5 days already given --> Medications have been reviewed # CEA of 10.5 --> Ct of abdomen/pelvis reviewed and is negative # Sepsis likely contributing to low plts --> on abx as needed # Shock, hypovolemic and distributive --> per id and pulm/cc care # Multisystem organ failure. # Lactic acidosis. # JONNATHAN. # Abnormal LFTs, likely shock liver. # Abnormal troponin, likely demand ischemia. # Obesity. # Respiratory failure on vent --> now extubated The timing of this note does not necessarily reflect the time of the patient was seen. Greatly appreciate consultation! Subjective Constitutional: Denies: no symptoms, chills, diaphoresis, fever, malaise, weakness, other HEENT: Denies: no symptoms, eye pain, blurred vision, tearing, double vision, ear pain, ear discharge, nose pain, nose congestion, throat pain, throat swelling, mouth pain, mouth swelling, other Cardiovascular: Denies: no symptoms, chest pain, edema, irregular heart rate, lightheadedness, palpitations, syncope, other Gastrointestinal/Abdominal: Denies: no symptoms, abdomen distended, abdominal pain, black stools, tarry stools, blood in stool, constipated, diarrhea, difficulty swallowing, nausea, poor appetite, poor fluid intake, rectal bleeding , vomiting, other Genitourinary: Denies: no symptoms, burning, discharge, frequency, flank pain, hematuria, incontinence, pain, urgency, other Endocrine: Denies: no symptoms, excessive sweating, flushing, intolerance to cold, intolerance to heat, increased hunger, increased thirst, increased urine, unexplained weight gain, unexplained weight loss, other Allergies: Coded Allergies: No Known Allergies (Unverified , 05/06/18) Subjective 3: Pt was seen in ICU on Vent and off pressors, developed atrial fib, wbc trending down to 13, plt trending down to 60 3: remains in the icu, monitoring labs, plts stabilizing, remains critically ill, cea elev 3: In ICU on Vent and off pressors, plt 62, no events 10/16 wbc trending up at 14,plt low at 48,weaning well from vent. no acute events , family at bedside 10/17: plts remain low, no events, weaned off vent, no complaints, off pressors 10/18: seen by bedside, wbc trending up at 15, plt low at 50, no events, needs video swallow. NGT 10/19: wbc remains elevated, plt 54, no acute distress reported 10/21: seen by bedside, still with lots of NG tube output, wbc 12, plt trending up 10/22: awake, alert,has high NG tube residual, wbc 11, no events 10/23: comfortable, wbc trending down, plt trending up , no events Objective Last 24 Hour Vital Signs Date Time Temp Pulse Resp B/P (MAP) Pulse Ox O2 Delivery O2 Flow Rate FiO2 10/23/18 15:10 112 20 100 Nasal Cannula 2.0 28 10/23/18 15:10 28 10/23/18 15:00 100 Nasal Cannula 3.0 32 10/23/18 15:00 Nasal Cannula 2.0 28 10/23/18 15:00 108 20 100 Nasal Cannula 2.0 28 3/12/19 12:00 Nasal Cannula 3.0 10/23/18 12:00 97.7 105 23 138/77 (97) 97 10/23/18 12:00 105 10/23/18 10:12 98 20 99 Nasal Cannula 2.0 28 10/23/18 10:12 28 10/23/18 10:02 96 Nasal Cannula 2.0 28 10/23/18 10:02 96 20 97 Nasal Cannula 2.0 28 10/23/18 10:02 Nasal Cannula 2.0 28 10/23/18 09:10 98 10/23/18 08:00 96 10/23/18 08:00 98.7 98 22 129/61 (83) 97 10/23/18 08:00 Nasal Cannula 3.0 10/23/18 07:00 Nasal Cannula 2.0 28 10/23/18 07:00 28 10/23/18 04:00 98.2 88 20 112/60 (77) 98 10/23/18 04:00 Nasal Cannula 3.0 10/23/18 03:23 98 10/23/18 03:10 28 10/23/18 03:10 98 20 Nasal Cannula 2.0 28 10/23/18 03:04 95 22 Nasal Cannula 2.0 28 10/23/18 03:01 95 22 96 Nasal Cannula 2.0 28 10/23/18 00:00 97.5 97 24 130/77 (94) 98 10/23/18 00:00 Nasal Cannula 3.0 10/22/18 23:43 96 10/22/18 21:02 96 Nasal Cannula 2.0 28 10/22/18 21:02 Nasal Cannula 2.0 28 10/22/18 20:00 Nasal Cannula 3.0 10/22/18 20:00 97.7 97 20 139/79 (99) 97 10/22/18 19:27 124 10/22/18 16:00 91 10/22/18 16:00 98.0 93 24 158/77 (104) 98 10/22/18 16:00 Nasal Cannula 3.0 Intake and Output 10/22/18 10/23/18 18:59 06:59 Intake Total 975 ml 857.5 ml Output Total 500 ml 870 ml Balance 475 ml -12.5 ml Intake Free Water 150 ml IV Total 825 ml 857.5 ml Output Urine Total 400 ml 425 ml Stool Total 300 ml Gastric Drainage Total 100 ml 145 ml # Bowel Movements 50 Laboratory Tests 10/23/18 04:00: White Blood Count 10.0, Red Blood Count 2.78L, Hemoglobin 8.6L, Hematocrit 27.3L , Mean Corpuscular Volume 98, Mean Corpuscular Hemoglobin 31.1H, Mean Corpuscular Hemoglobin Concent 31.7L, Red Cell Distribution Width 22.6H, Platelet Count 115L, Mean Platelet Volume 6.1L, Neutrophils (%) (Auto) 75.0, Lymphocytes (%) (Auto) 11.2L, Monocytes (%) (Auto) 7.9, Eosinophils (%) (Auto) 4.4H, Basophils (%) (Auto) 1.5, Sodium Level 144, Potassium Level 3.3L, Chloride Level 112H, Carbon Dioxide Level 25, Anion Gap 7, Blood Urea Nitrogen 11, Creatinine 1.1, Estimat Glomerular Filtration Rate 51.0, Glucose Level 189H , Uric Acid 6.1, Calcium Level 9.8, Phosphorus Level 2.8, Magnesium Level 2.0, Total Bilirubin 6.9H, Direct Bilirubin 5.0H, Gamma Glutamyl Transpeptidase 299H , Aspartate Amino Transf (AST/SGOT) 72H, Alanine Aminotransferase (ALT/SGPT) 148H, Alkaline Phosphatase 367H, Ammonia 92H, C-Reactive Protein, Quantitative 7.4H, Pro-B-Type Natriuretic Peptide 255H, Total Protein 5.4L, Albumin 2.0L, Globulin 3.4, Albumin/Globulin Ratio 0.6L Height (Feet): 5 Height (Inches): 1.00 Weight (Pounds): 249 Objective PHYSICAL EXAMINATION: VITAL SIGNS: reviewed, saturating 98% on NC++, GENERAL: She is an obese female, confused. HEENT: Normocephalic and atraumatic. Oropharynx is clear with dry mucous membranes., NJ tube++ NECK: Supple without lymphadenopathy or JVP. CHEST: Clear. HEART: Regular. ABDOMEN: Benign. EXTREMITIES: No cyanosis, clubbing, or edema. There are some ecchymoses in bilateral lower extremities. Kurtis Villagomez MD Oct 23, 2018 15:52
--- NOTE | 2018-10-23 15:57 | Cardiac Electrophysiology PN ---
Assessment/Plan Assessment/Plan 1. Atrial fib with RVR. Off Beta janet or CA janet for hypotension. On Dig 0.125 qod and amiodarone 200 daily. In SR off Amiodarone for high LFTs and Bilirubin 7.3 2. S/P Septic shock. On broad spectrum IV antibiotic. 3. Troponin leak. The levels are flat and likely due to this patient's sepsis and septic shock. Her echocardiogram showed ejection fraction 60% to 65% and EKG showed no acute ischemic changes. 4. Nonsustained VT. DC Amio. EF 65% 5. Diabetes. 6. Renal failure. 7. Morbid obesity. 8. Failed Swallow eval. NG tube in 9. S/P Respiratory failure, Extubated 10. Cirrhosis, high Bilirubin and ascites. Paracentesis pending Subjective Subjective In restraints. NG to suction. In SR. Objective Last 24 Hour Vital Signs Date Time Temp Pulse Resp B/P (MAP) Pulse Ox O2 Delivery O2 Flow Rate FiO2 10/23/18 15:10 112 20 100 Nasal Cannula 2.0 28 10/23/18 15:10 28 10/23/18 15:00 100 Nasal Cannula 3.0 32 10/23/18 15:00 Nasal Cannula 2.0 28 10/23/18 15:00 108 20 100 Nasal Cannula 2.0 28 10/23/18 12:00 Nasal Cannula 3.0 10/23/18 12:00 97.7 105 23 138/77 (97) 97 10/23/18 12:00 105 10/23/18 10:12 98 20 99 Nasal Cannula 2.0 28 10/23/18 10:12 28 10/23/18 10:02 96 Nasal Cannula 2.0 28 10/23/18 10:02 96 20 97 Nasal Cannula 2.0 28 10/23/18 10:02 Nasal Cannula 2.0 28 10/23/18 09:10 98 10/23/18 08:00 96 10/23/18 08:00 98.7 98 22 129/61 (83) 97 10/23/18 08:00 Nasal Cannula 3.0 10/23/18 07:00 Nasal Cannula 2.0 28 10/23/18 07:00 28 10/23/18 04:00 98.2 88 20 112/60 (77) 98 10/23/18 04:00 Nasal Cannula 3.0 10/23/18 03:23 98 10/23/18 03:10 28 10/23/18 03:10 98 20 Nasal Cannula 2.0 28 10/23/18 03:04 95 22 Nasal Cannula 2.0 28 10/23/18 03:01 95 22 96 Nasal Cannula 2.0 28 10/23/18 00:00 97.5 97 24 130/77 (94) 98 10/23/18 00:00 Nasal Cannula 3.0 10/22/18 23:43 96 10/22/18 21:02 96 Nasal Cannula 2.0 28 10/22/18 21:02 Nasal Cannula 2.0 28 10/22/18 20:00 Nasal Cannula 3.0 10/22/18 20:00 97.7 97 20 139/79 (99) 97 10/22/18 19:27 124 10/22/18 16:00 91 10/22/18 16:00 98.0 93 24 158/77 (104) 98 10/22/18 16:00 Nasal Cannula 3.0 Intake and Output 10/22/18 10/23/18 19:00 07:00 Intake Total 975 ml 857.5 ml Output Total 500 ml 870 ml Balance 475 ml -12.5 ml Intake Free Water 150 ml IV Total 825 ml 857.5 ml Output Urine Total 400 ml 425 ml Stool Total 300 ml Gastric Drainage Total 100 ml 145 ml # Bowel Movements 50 Laboratory Tests Test 10/23/18 04:00 White Blood Count 10.0 K/UL (4.8-10.8) Red Blood Count 2.78 M/UL (4.20-5.40) L Hemoglobin 8.6 G/DL (12.0-16.0) L Hematocrit 27.3 % (37.0-47.0) L Mean Corpuscular Volume 98 FL (80-99) Mean Corpuscular Hemoglobin 31.1 PG (27.0-31.0) H Mean Corpuscular Hemoglobin Concent 31.7 G/DL (32.0-36.0) L Red Cell Distribution Width 22.6 % (11.6-14.8) H Platelet Count 115 K/UL (150-450) L Mean Platelet Volume 6.1 FL (6.5-10.1) L Neutrophils (%) (Auto) 75.0 % (45.0-75.0) Lymphocytes (%) (Auto) 11.2 % (20.0-45.0) L Monocytes (%) (Auto) 7.9 % (1.0-10.0) Eosinophils (%) (Auto) 4.4 % (0.0-3.0) H Basophils (%) (Auto) 1.5 % (0.0-2.0) Sodium Level 144 MMOL/L (136-145) Potassium Level 3.3 MMOL/L (3.5-5.1) L Chloride Level 112 MMOL/L (98-107) H Carbon Dioxide Level 25 MMOL/L (21-32) Anion Gap 7 mmol/L (5-15) Blood Urea Nitrogen 11 mg/dL (7-18) Creatinine 1.1 MG/DL (0.55-1.30) Estimat Glomerular Filtration Rate 51.0 mL/min (>60) Glucose Level 189 MG/DL (74-106) H Uric Acid 6.1 MG/DL (2.6-7.2) Calcium Level 9.8 MG/DL (8.5-10.1) Phosphorus Level 2.8 MG/DL (2.5-4.9) Magnesium Level 2.0 MG/DL (1.8-2.4) Total Bilirubin 6.9 MG/DL (0.2-1.0) H Direct Bilirubin 5.0 MG/DL (0.0-0.3) H Gamma Glutamyl Transpeptidase 299 U/L (5-85) H Aspartate Amino Transf (AST/SGOT) 72 U/L (15-37) H Alanine Aminotransferase (ALT/SGPT) 148 U/L (12-78) H Alkaline Phosphatase 367 U/L (46-116) H Ammonia 92 umol/L (11-32) H C-Reactive Protein, Quantitative 7.4 mg/dL (0.00-0.90) H Pro-B-Type Natriuretic Peptide 255 pg/mL (0-125) H Total Protein 5.4 G/DL (6.4-8.2) L Albumin 2.0 G/DL (3.4-5.0) L Globulin 3.4 g/dL Albumin/Globulin Ratio 0.6 (1.0-2.7) L Objective HEAD AND NECK: No JVD. NG tube in LUNGS: Coarse rhonchi. CARDIOVASCULAR: Regular S1, S2 with no gallop or murmur. ABDOMEN: Obese. EXTREMITIES: No pitting edema. Sean Montanez MD Oct 23, 2018 15:57
[2018-10-23 16:00] VITALS: BP 135/73
--- NOTE | 2018-10-23 19:20 | NUR ---
NURSE NOTES: Received patient from KARI BRIGHT. Will continue plan of care.
--- NOTE | 2018-10-23 19:20 | NUR ---
HAND-OFF: Report given to .ABDIRIZAK PIERCE.
[2018-10-23 20:00] VITALS: BP 131/66
[2018-10-23] MEDS: Dyna-Hex 2% Top Sol 2oz TOPIC SCH (21:08)
--- NOTE | 2018-10-23 22:04 | General Progress Note ---
Assessment/Plan Problem List: (1) Hypotension ICD Codes: I95.9 - Hypotension, unspecified SNOMED: 94857904 (2) Hyperglycemia ICD Codes: R73.9 - Hyperglycemia, unspecified SNOMED: 73599952 (3) Dyspnea ICD Codes: R06.00 - Dyspnea, unspecified SNOMED: 699070812 (4) Hypoxemia ICD Codes: R09.02 - Hypoxemia SNOMED: 105796888 (5) Contusion of left knee ICD Codes: S80.02XA - Contusion of left knee, initial encounter SNOMED: 28022149 (6) Sepsis ICD Codes: A41.9 - Sepsis, unspecified organism SNOMED: 74303488 (7) Septic shock ICD Codes: A41.9 - Sepsis, unspecified organism; R65.21 - Severe sepsis with septic shock SNOMED: 52718193 (8) Liver cirrhosis ICD Codes: K74.60 - Unspecified cirrhosis of liver SNOMED: 61609303 (9) Pneumonia ICD Codes: J18.9 - Pneumonia, unspecified organism SNOMED: 383406548 (10) Respiratory disorder with ventilator dependence ICD Codes: J98.9 - Respiratory disorder, unspecified; Z99.11 - Dependence on respirator [ventilator] status SNOMED: 30077373, 082438779 (11) Shock liver ICD Codes: K72.00 - Acute and subacute hepatic failure without coma SNOMED: 175252597 Status: progressing Assessment/Plan duong eval ng tube malnutrition confused sepsis abx per id encelphalopathy edema cihrrosis sepsis obesity morbid pna Subjective ROS Limited/Unobtainable: Yes Allergies: Coded Allergies: No Known Allergies (Unverified , 05/06/18) Objective Last 24 Hour Vital Signs Date Time Temp Pulse Resp B/P (MAP) Pulse Ox O2 Delivery O2 Flow Rate FiO2 10/23/18 20:00 98.4 108 24 131/66 (87) 97 10/23/18 20:00 Nasal Cannula 3.0 10/23/18 19:44 105 10/23/18 19:44 105 20 100 Nasal Cannula 2.0 28 10/23/18 19:34 99 Nasal Cannula 2.0 28 10/23/18 19:34 Nasal Cannula 2.0 28 10/23/18 19:34 108 20 100 Nasal Cannula 2.0 28 3/12/19 16:00 112 10/23/18 16:00 98.7 115 26 135/73 (93) 96 10/23/18 16:00 Nasal Cannula 3.0 10/23/18 15:10 112 20 100 Nasal Cannula 2.0 28 10/23/18 15:10 28 10/23/18 15:00 100 Nasal Cannula 3.0 32 10/23/18 15:00 Nasal Cannula 2.0 28 10/23/18 15:00 108 20 100 Nasal Cannula 2.0 28 10/23/18 12:00 Nasal Cannula 3.0 10/23/18 12:00 97.7 105 23 138/77 (97) 97 10/23/18 12:00 105 10/23/18 10:12 98 20 99 Nasal Cannula 2.0 28 10/23/18 10:12 28 10/23/18 10:02 96 Nasal Cannula 2.0 28 10/23/18 10:02 96 20 97 Nasal Cannula 2.0 28 10/23/18 10:02 Nasal Cannula 2.0 28 10/23/18 09:10 98 10/23/18 08:00 96 10/23/18 08:00 98.7 98 22 129/61 (83) 97 10/23/18 08:00 Nasal Cannula 3.0 10/23/18 07:00 Nasal Cannula 2.0 28 10/23/18 07:00 28 10/23/18 04:00 98.2 88 20 112/60 (77) 98 10/23/18 04:00 Nasal Cannula 3.0 10/23/18 03:23 98 10/23/18 03:10 28 10/23/18 03:10 98 20 Nasal Cannula 2.0 28 10/23/18 03:04 95 22 Nasal Cannula 2.0 28 10/23/18 03:01 95 22 96 Nasal Cannula 2.0 28 10/23/18 00:00 97.5 97 24 130/77 (94) 98 10/23/18 00:00 Nasal Cannula 3.0 10/22/18 23:43 96 Intake and Output 10/22/18 10/23/18 19:00 07:00 Intake Total 975 ml 932.5 ml Output Total 500 ml 870 ml Balance 475 ml 62.5 ml Intake Free Water 150 ml IV Total 825 ml 932.5 ml Output Urine Total 400 ml 425 ml Stool Total 300 ml Gastric Drainage Total 100 ml 145 ml # Bowel Movements 50 Laboratory Tests 10/23/18 04:00: White Blood Count 10.0, Red Blood Count 2.78L, Hemoglobin 8.6L, Hematocrit 27.3L , Mean Corpuscular Volume 98, Mean Corpuscular Hemoglobin 31.1H, Mean Corpuscular Hemoglobin Concent 31.7L, Red Cell Distribution Width 22.6H, Platelet Count 115L, Mean Platelet Volume 6.1L, Neutrophils (%) (Auto) 75.0, Lymphocytes (%) (Auto) 11.2L, Monocytes (%) (Auto) 7.9, Eosinophils (%) (Auto) 4.4H, Basophils (%) (Auto) 1.5, Sodium Level 144, Potassium Level 3.3L, Chloride Level 112H, Carbon Dioxide Level 25, Anion Gap 7, Blood Urea Nitrogen 11, Creatinine 1.1, Estimat Glomerular Filtration Rate 51.0, Glucose Level 189H , Uric Acid 6.1, Calcium Level 9.8, Phosphorus Level 2.8, Magnesium Level 2.0, Total Bilirubin 6.9H, Direct Bilirubin 5.0H, Gamma Glutamyl Transpeptidase 299H , Aspartate Amino Transf (AST/SGOT) 72H, Alanine Aminotransferase (ALT/SGPT) 148H, Alkaline Phosphatase 367H, Ammonia 92H, C-Reactive Protein, Quantitative 7.4H, Pro-B-Type Natriuretic Peptide 255H, Total Protein 5.4L, Albumin 2.0L, Globulin 3.4, Albumin/Globulin Ratio 0.6L Height (Feet): 5 Height (Inches): 1.00 Weight (Pounds): 249 General Appearance: confused Abdomen: soft Michael Kelley MD Oct 23, 2018 22:03
[2018-10-24] VITALS: BP 145/65
[2018-10-24] MEDS: Albuterol/Ipratropium 3ml neb HHN SCH ×6 (03:29→23:01)
[2018-10-24 04:00] VITALS: BP 155/78
[2018-10-24 05:56] LABS: BASOPHILS % (AUTO) 1.2 % (0.0-2.0); EOSINOPHILS % (AUTO) 3.7 % (0.0-3.0); HEMATOCRIT 27.4 % (37.0-47.0); HEMOGLOBIN 8.7 G/DL (12.0-16.0); LYMPHOCYTES % (AUTO) 13.3 % (20.0-45.0); MEAN CORPUSCULAR VOLUME 97 FL (80-99); MONOCYTES % (AUTO) 6.8 % (1.0-10.0); PLATELET COUNT 113 K/UL (150-450); RED BLOOD COUNT 2.81 M/UL (4.20-5.40); RED CELL DISTRIBUTION WIDTH 23.2 % (11.6-14.8); WHITE BLOOD COUNT 10.3 K/UL (4.8-10.8)
[2018-10-24] MEDS: Metoclopramide 10mg/2ml Inj IVP SCH ×4 (06:04→23:40)
[2018-10-24] MEDS: Acyclovir 200mg Cap ORAL SCH ×3 (06:04→22:05)
[2018-10-24 06:05] LABS: INR 1.7 (0.9-1.1)
[2018-10-24] MEDS: NovoLOG Insulin Flexpen SUBQ SCH ×4 (06:05→21:15)
[2018-10-24 06:22] LABS: ALANINE AMINOTRANSFERASE 125 U/L (12-78); ALBUMIN 2.2 G/DL (3.4-5.0); ALBUMIN/GLOBULIN RATIO 0.7 (1.0-2.7); ALKALINE PHOSPHATASE 358 U/L (46-116); ANION GAP 9 mmol/L (5-15); ASPARTATE AMINO TRANSFERASE 79 U/L (15-37); BILIRUBIN,TOTAL 7.2 MG/DL (0.2-1.0); BLOOD UREA NITROGEN 10 mg/dL (7-18); CARBON DIOXIDE 24 MMOL/L (21-32); CHLORIDE 111 MMOL/L (98-107); CREATININE 1.1 MG/DL (0.55-1.30); POTASSIUM 3.4 MMOL/L (3.5-5.1); SODIUM 144 MMOL/L (136-145)
[2018-10-24 06:24] LABS: BILIRUBIN,DIRECT 5.2 MG/DL (0.0-0.3)
--- NOTE | 2018-10-24 07:19 | NUR ---
HAND-OFF: Report given to Peyman Souza RN.
--- NOTE | 2018-10-24 07:20 | NUR ---
NURSE NOTES: Report received from Jessica Tamayo RN.Pt resting in bed asleep,noted no resp distress,on 3 L NC,no signs of pain or discomfort S-Tach on the monitor,,NGT to low intermittent suction,pt NPO,with medina cath draining tea colored urine,rectal tube in placed,IV site to LISA PICC line intact with IVF D5Wat 75 ml/hr,SR up x2 HOB elevated,bilat wrist restraints ,bed lock in lowest position,will continue with plans of care.
[2018-10-24 08:00] VITALS: BP 146/77
--- NOTE | 2018-10-24 09:00 | NUR ---
NURSE NOTES: Pt awake at this time ,talking with spouse at bedside,noted no distress.
[2018-10-24] MEDS: Pantoprazole Inj IVP SCH ×2 (09:47→21:12)
[2018-10-24] MEDS: Spironolactone 25mg tab ORAL SCH (09:48)
[2018-10-24] MEDS ORDERED: Sodium Chloride for KCL Premix X 3hrs IV SCH (10:00)
--- NOTE | 2018-10-24 10:57 | GI Progress Note ---
Assessment/Plan Problems: (1) Shock liver ICD Codes: K72.00 - Acute and subacute hepatic failure without coma SNOMED: 397016244 (2) Liver cirrhosis ICD Codes: K74.60 - Unspecified cirrhosis of liver SNOMED: 21404630 (3) Septic shock ICD Codes: A41.9 - Sepsis, unspecified organism; R65.21 - Severe sepsis with septic shock SNOMED: 17029028 (4) Sepsis ICD Codes: A41.9 - Sepsis, unspecified organism SNOMED: 78915249 (5) Respiratory disorder with ventilator dependence ICD Codes: J98.9 - Respiratory disorder, unspecified; Z99.11 - Dependence on respirator [ventilator] status SNOMED: 59579604, 257192636 (6) Normocytic anemia ICD Codes: D64.9 - Anemia, unspecified SNOMED: 401028076 Status: unchanged Status Narrative Discussed with Dr. Reynolds. Assessment/Plan unsuccessful paracentesis due to limited ascites patient continues to have excessive NGT output CT AP pending JAD, SMA, AMA negative hepatitis panel negative OB stool positive x2 stable H&H TPN ordered, d/w with pharmacy GI work up for elevated CEA when more stable, defer endoscopy at this time. maintain NPO + IVFs, NGT to LIS Lasix + Aldactone ppi BID monitor H&H xifaxan and lactulose reglan ATC d/c Amiodarone for now - discussed with cardiology Follow labs The patient was seen and examined at bedside and all new and available data was reviewed in the patients chart. I agree with the above findings, impression and plan. (Patient seen earlier today. Signature stamp does not reflect patient encounter time.). - Samuel Reynolds MD Subjective Subjective limited Objective Last 24 Hour Vital Signs Date Time Temp Pulse Resp B/P (MAP) Pulse Ox O2 Delivery O2 Flow Rate FiO2 10/24/18 08:00 97.9 105 18 146/77 (100) 95 10/24/18 07:10 105 18 100 Nasal Cannula 2.0 28 10/24/18 06:57 98 Nasal Cannula 2.0 28 10/24/18 06:57 Nasal Cannula 2.0 28 10/24/18 06:57 105 21 98 Nasal Cannula 2.0 28 10/24/18 04:00 98.4 104 24 155/78 (103) 97 10/24/18 04:00 Nasal Cannula 3.0 10/24/18 03:29 105 20 100 Nasal Cannula 2.0 28 10/24/18 03:29 105 20 99 Nasal Cannula 2.0 28 10/24/18 03:22 105 10/24/18 00:00 Nasal Cannula 3.0 10/24/18 00:00 98.9 105 24 145/65 (91) 97 10/23/18 23:23 104 10/23/18 23:00 Nasal Cannula 2.0 28 10/23/18 23:00 Nasal Cannula 2.0 28 10/23/18 20:00 98.4 108 24 131/66 (87) 97 10/23/18 20:00 Nasal Cannula 3.0 10/23/18 19:44 105 10/23/18 19:44 105 20 100 Nasal Cannula 2.0 28 10/23/18 19:34 99 Nasal Cannula 2.0 28 10/23/18 19:34 Nasal Cannula 2.0 28 10/23/18 19:34 108 20 100 Nasal Cannula 2.0 28 10/23/18 16:00 112 10/23/18 16:00 98.7 115 26 135/73 (93) 96 10/23/18 16:00 Nasal Cannula 3.0 10/23/18 15:10 112 20 100 Nasal Cannula 2.0 28 10/23/18 15:10 28 10/23/18 15:00 100 Nasal Cannula 3.0 32 10/23/18 15:00 Nasal Cannula 2.0 28 10/23/18 15:00 108 20 100 Nasal Cannula 2.0 28 10/23/18 12:00 Nasal Cannula 3.0 10/23/18 12:00 97.7 105 23 138/77 (97) 97 10/23/18 12:00 105 Intake and Output 10/23/18 10/24/18 19:00 07:00 Intake Total 925 ml 575 ml Output Total 2230 ml 1425 ml Balance -1305 ml -850 ml Intake Free Water 150 ml IV Total 775 ml 575 ml Output Urine Total 1750 ml 750 ml Stool Total 400 ml 500 ml Gastric Drainage Total 80 ml 175 ml Laboratory Tests Test 10/24/18 05:00 White Blood Count 10.3 K/UL (4.8-10.8) Red Blood Count 2.81 M/UL (4.20-5.40) L Hemoglobin 8.7 G/DL (12.0-16.0) L Hematocrit 27.4 % (37.0-47.0) L Mean Corpuscular Volume 97 FL (80-99) Mean Corpuscular Hemoglobin 30.8 PG (27.0-31.0) Mean Corpuscular Hemoglobin Concent 31.6 G/DL (32.0-36.0) L Red Cell Distribution Width 23.2 % (11.6-14.8) H Platelet Count 113 K/UL (150-450) L Mean Platelet Volume 6.4 FL (6.5-10.1) L Neutrophils (%) (Auto) 75.0 % (45.0-75.0) Lymphocytes (%) (Auto) 13.3 % (20.0-45.0) L Monocytes (%) (Auto) 6.8 % (1.0-10.0) Eosinophils (%) (Auto) 3.7 % (0.0-3.0) H Basophils (%) (Auto) 1.2 % (0.0-2.0) Prothrombin Time 17.3 SEC (9.30-11.50) H Prothromb Time International Ratio 1.7 (0.9-1.1) H Activated Partial Thromboplast Time 34 SEC (23-33) H Sodium Level 144 MMOL/L (136-145) Potassium Level 3.4 MMOL/L (3.5-5.1) L Chloride Level 111 MMOL/L (98-107) H Carbon Dioxide Level 24 MMOL/L (21-32) Anion Gap 9 mmol/L (5-15) Blood Urea Nitrogen 10 mg/dL (7-18) Creatinine 1.1 MG/DL (0.55-1.30) Estimat Glomerular Filtration Rate 51.0 mL/min (>60) Glucose Level 194 MG/DL (74-106) H Calcium Level 10.0 MG/DL (8.5-10.1) Phosphorus Level Pending Magnesium Level 1.6 MG/DL (1.8-2.4) L Total Bilirubin 7.2 MG/DL (0.2-1.0) H Direct Bilirubin 5.2 MG/DL (0.0-0.3) H Aspartate Amino Transf (AST/SGOT) 79 U/L (15-37) H Alanine Aminotransferase (ALT/SGPT) 125 U/L (12-78) H Alkaline Phosphatase 358 U/L (46-116) H Total Protein 5.5 G/DL (6.4-8.2) L Albumin 2.2 G/DL (3.4-5.0) L Globulin 3.3 g/dL Albumin/Globulin Ratio 0.7 (1.0-2.7) L Height (Feet): 5 Height (Inches): 1.00 Weight (Pounds): 249 General Appearance: no apparent distress, morbidly obese Cardiovascular: normal rate Respiratory/Chest: normal breath sounds, no respiratory distress Abdominal Exam: normal bowel sounds, non tender, soft, other - NGT Extremities: non-tender Cole Serna NP Oct 24, 2018 10:57
--- NOTE | 2018-10-24 11:20 | Infectious Diseases Prog Note ---
Assessment/Plan Assessment/Plan A: 1. Septic Shock resolved.culture are negative so far 2. aspiration pneumonia. 3. acute renal failure , resolved 4. Diabetes mellitus. 5. Obesity. 6. Lactic acidosis. 7. Anemia.s/p transfusion 8. Cirrhosis with ascites 9. Enteritis, ileus resolved 10. Leukocytosis improving 11. GI bleeding 12. 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 Subjective ROS Limited/Unobtainable: Yes Gastrointestinal/Abdominal: Reports: other - feels hugry & thirsty Neurologic: Reports: other - more alert on restraint Allergies: Coded Allergies: No Known Allergies (Unverified , 05/06/18) Objective Vital Signs Last 24 Hour Vital Signs Date Time Temp Pulse Resp B/P (MAP) Pulse Ox O2 Delivery O2 Flow Rate FiO2 10/24/18 11:16 106 20 96 Nasal Cannula 2.0 28 10/24/18 08:00 97.9 105 18 146/77 (100) 95 10/24/18 07:10 105 18 100 Nasal Cannula 2.0 28 10/24/18 06:57 98 Nasal Cannula 2.0 28 10/24/18 06:57 Nasal Cannula 2.0 28 10/24/18 06:57 105 21 98 Nasal Cannula 2.0 28 10/24/18 04:00 98.4 104 24 155/78 (103) 97 10/24/18 04:00 Nasal Cannula 3.0 10/24/18 03:29 105 20 100 Nasal Cannula 2.0 28 10/24/18 03:29 105 20 99 Nasal Cannula 2.0 28 10/24/18 03:22 105 10/24/18 00:00 Nasal Cannula 3.0 10/24/18 00:00 98.9 105 24 145/65 (91) 97 10/23/18 23:23 104 10/23/18 23:00 Nasal Cannula 2.0 28 10/23/18 23:00 Nasal Cannula 2.0 28 10/23/18 20:00 98.4 108 24 131/66 (87) 97 10/23/18 20:00 Nasal Cannula 3.0 10/23/18 19:44 105 10/23/18 19:44 105 20 100 Nasal Cannula 2.0 28 10/23/18 19:34 99 Nasal Cannula 2.0 28 10/23/18 19:34 Nasal Cannula 2.0 28 10/23/18 19:34 108 20 100 Nasal Cannula 2.0 28 10/23/18 16:00 112 10/23/18 16:00 98.7 115 26 135/73 (93) 96 10/23/18 16:00 Nasal Cannula 3.0 10/23/18 15:10 112 20 100 Nasal Cannula 2.0 28 10/23/18 15:10 28 10/23/18 15:00 100 Nasal Cannula 3.0 32 10/23/18 15:00 Nasal Cannula 2.0 28 10/23/18 15:00 108 20 100 Nasal Cannula 2.0 28 10/23/18 12:00 Nasal Cannula 3.0 10/23/18 12:00 97.7 105 23 138/77 (97) 97 10/23/18 12:00 105 Height (Feet): 5 Height (Inches): 1.00 Weight (Pounds): 249 General Appearance: no acute distress HEENT: mucous membranes moist Respiratory/Chest: decreased breath sounds Cardiovascular: tachycardia, other - PICC line Abdomen: soft, non tender, other - NG tube Skin: other - Generalized edema Neurologic/Psychiatric: alert, responsive Laboratory Tests Test 10/24/18 05:00 White Blood Count 10.3 K/UL (4.8-10.8) Red Blood Count 2.81 M/UL (4.20-5.40) L Hemoglobin 8.7 G/DL (12.0-16.0) L Hematocrit 27.4 % (37.0-47.0) L Mean Corpuscular Volume 97 FL (80-99) Mean Corpuscular Hemoglobin 30.8 PG (27.0-31.0) Mean Corpuscular Hemoglobin Concent 31.6 G/DL (32.0-36.0) L Red Cell Distribution Width 23.2 % (11.6-14.8) H Platelet Count 113 K/UL (150-450) L Mean Platelet Volume 6.4 FL (6.5-10.1) L Neutrophils (%) (Auto) 75.0 % (45.0-75.0) Lymphocytes (%) (Auto) 13.3 % (20.0-45.0) L Monocytes (%) (Auto) 6.8 % (1.0-10.0) Eosinophils (%) (Auto) 3.7 % (0.0-3.0) H Basophils (%) (Auto) 1.2 % (0.0-2.0) Prothrombin Time 17.3 SEC (9.30-11.50) H Prothromb Time International Ratio 1.7 (0.9-1.1) H Activated Partial Thromboplast Time 34 SEC (23-33) H Sodium Level 144 MMOL/L (136-145) Potassium Level 3.4 MMOL/L (3.5-5.1) L Chloride Level 111 MMOL/L (98-107) H Carbon Dioxide Level 24 MMOL/L (21-32) Anion Gap 9 mmol/L (5-15) Blood Urea Nitrogen 10 mg/dL (7-18) Creatinine 1.1 MG/DL (0.55-1.30) Estimat Glomerular Filtration Rate 51.0 mL/min (>60) Glucose Level 194 MG/DL (74-106) H Calcium Level 10.0 MG/DL (8.5-10.1) Phosphorus Level 3.3 MG/DL (2.5-4.9) Magnesium Level 1.6 MG/DL (1.8-2.4) L Total Bilirubin 7.2 MG/DL (0.2-1.0) H Direct Bilirubin 5.2 MG/DL (0.0-0.3) H Aspartate Amino Transf (AST/SGOT) 79 U/L (15-37) H Alanine Aminotransferase (ALT/SGPT) 125 U/L (12-78) H Alkaline Phosphatase 358 U/L (46-116) H Total Protein 5.5 G/DL (6.4-8.2) L Albumin 2.2 G/DL (3.4-5.0) L Globulin 3.3 g/dL Albumin/Globulin Ratio 0.7 (1.0-2.7) L Current Medications Medications (Trade) Dose Ordered Sig/Patricia Route PRN Reason Start Time Stop Time Status Last Admin Dose Admin Acyclovir (Zovirax) 400 mg EVERY 8 HOURS ORAL 10/22/18 10:15 11/21/18 10:14 10/24/18 06:04 Albuterol/ Ipratropium (Albuterol/ Ipratropium) 3 ml Q4HRT HHN 10/23/18 03:00 10/28/18 02:59 10/24/18 11:16 Chlorhexidine Gluconate (Nguyen-Hex 2%) 1 applic DAILY@2000 TOPIC 10/17/18 20:00 11/09/18 19:59 10/23/18 21:08 Dextrose 1,000 ml @ 75 mls/hr [id number] IV 10/19/18 13:30 11/18/18 13:29 10/23/18 23:20 Dextrose (Dextrose 50%) 25 ml Q30M PRN IV Hypoglycemia 10/17/18 14:45 11/10/18 13:44 Dextrose (Dextrose 50%) 50 ml Q30M PRN IV Hypoglycemia 10/17/18 14:45 11/10/18 13:44 Digoxin (Lanoxin) 0.125 mg QOD NG 10/19/18 09:00 11/15/18 08:59 10/23/18 09:10 Diphenhydramine HCl (Benadryl) 25 mg Q6H PRN IVP Itching 10/17/18 14:30 11/08/18 14:29 Furosemide (Lasix) 40 mg DAILY IV 10/23/18 09:45 11/22/18 09:44 10/24/18 09:47 Insulin Aspart (NovoLOG) BEFORE MEALS AND HS SUBQ 10/17/18 16:30 11/10/18 16:29 10/24/18 06:05 Iopamidol (Isovue-370 150ml) 150 ml NOW PRN INJ Radiology Procedure 10/22/18 12:15 10/24/18 12:03 Lactulose (Cephulac) 30 gm THREE TIMES A DAY NG 10/17/18 18:00 11/12/18 17:59 10/23/18 17:53 Metoclopramide HCl (Reglan) 5 mg Q6H IVP 10/17/18 17:30 11/13/18 11:29 10/24/18 06:04 Midazolam HCl (Versed 2mg/2ml vial) 1 mg Q2H PRN IVP For Anxiety 10/17/18 14:30 11/11/18 14:29 Pantoprazole (Protonix) 40 mg EVERY 12 HOURS IVP 10/17/18 21:00 11/09/18 20:59 10/24/18 09:47 Potassium Chloride 100 ml @ 100 mls/hr Q1H IVPB 10/24/18 10:00 10/24/18 12:59 10/24/18 09:48 Rifaximin (Xifaxan) 550 mg EVERY 12 HOURS ORAL 10/17/18 21:00 10/26/18 20:59 10/24/18 09:47 Sodium Chloride 300 ml @ 100 mls/hr Q3H IV 10/24/18 10:00 10/24/18 12:59 Spironolactone (Aldactone) 25 mg DAILY ORAL 10/23/18 09:45 11/22/18 09:44 10/24/18 09:48 Wesley Akers MD Oct 24, 2018 11:20
[2018-10-24] MEDS: Lactulose 20gm/30ml UDC NG SCH ×3 (11:28→17:48)
[2018-10-24 12:00] VITALS: BP 152/82
--- NOTE | 2018-10-24 13:58 | Surgery Progress Note ---
Surgery Progress Note Subjective Additional Comments Seen and examined at bedside afebrile tachycardic leukocytosis resolved anemia elevated LFTs and bilirubin exam unchanged Still with high NG tube output but decreasing Objective Last 24 Hour Vital Signs Date Time Temp Pulse Resp B/P (MAP) Pulse Ox O2 Delivery O2 Flow Rate FiO2 10/24/18 12:00 97.9 103 20 152/82 (105) 96 10/24/18 11:26 106 19 100 Nasal Cannula 2.0 28 10/24/18 11:16 106 20 96 Nasal Cannula 2.0 28 10/24/18 08:00 97.9 105 18 146/77 (100) 95 10/24/18 08:00 106 10/24/18 07:10 105 18 100 Nasal Cannula 2.0 28 10/24/18 06:57 98 Nasal Cannula 2.0 28 10/24/18 06:57 Nasal Cannula 2.0 28 10/24/18 06:57 105 21 98 Nasal Cannula 2.0 28 10/24/18 04:00 98.4 104 24 155/78 (103) 97 10/24/18 04:00 Nasal Cannula 3.0 10/24/18 03:29 105 20 100 Nasal Cannula 2.0 28 10/24/18 03:29 105 20 99 Nasal Cannula 2.0 28 10/24/18 03:22 105 10/24/18 00:00 Nasal Cannula 3.0 10/24/18 00:00 98.9 105 24 145/65 (91) 97 10/23/18 23:23 104 10/23/18 23:00 Nasal Cannula 2.0 28 10/23/18 23:00 Nasal Cannula 2.0 28 10/23/18 20:00 98.4 108 24 131/66 (87) 97 10/23/18 20:00 Nasal Cannula 3.0 10/23/18 19:44 105 10/23/18 19:44 105 20 100 Nasal Cannula 2.0 28 10/23/18 19:34 99 Nasal Cannula 2.0 28 10/23/18 19:34 Nasal Cannula 2.0 28 10/23/18 19:34 108 20 100 Nasal Cannula 2.0 28 10/23/18 16:00 112 10/23/18 16:00 98.7 115 26 135/73 (93) 96 10/23/18 16:00 Nasal Cannula 3.0 10/23/18 15:10 112 20 100 Nasal Cannula 2.0 28 10/23/18 15:10 28 10/23/18 15:00 100 Nasal Cannula 3.0 32 10/23/18 15:00 Nasal Cannula 2.0 28 10/23/18 15:00 108 20 100 Nasal Cannula 2.0 28 I&O Intake and Output 10/23/18 10/24/18 18:59 06:59 Intake Total 1075 ml 500 ml Output Total 2230 ml 1425 ml Balance -1155 ml -925 ml Intake Free Water 150 ml IV Total 925 ml 500 ml Output Urine Total 1750 ml 750 ml Stool Total 400 ml 500 ml Gastric Drainage Total 80 ml 175 ml Dressing: other Wound: other Drains: other Cardiovascular: RSR Respiratory: decreased breath sounds Abdomen: soft, non-tender, decreased bowel sounds Extremities: no tenderness, no cyanosis Laboratory Tests Test 10/24/18 05:00 White Blood Count 10.3 K/UL (4.8-10.8) Red Blood Count 2.81 M/UL (4.20-5.40) L Hemoglobin 8.7 G/DL (12.0-16.0) L Hematocrit 27.4 % (37.0-47.0) L Mean Corpuscular Volume 97 FL (80-99) Mean Corpuscular Hemoglobin 30.8 PG (27.0-31.0) Mean Corpuscular Hemoglobin Concent 31.6 G/DL (32.0-36.0) L Red Cell Distribution Width 23.2 % (11.6-14.8) H Platelet Count 113 K/UL (150-450) L Mean Platelet Volume 6.4 FL (6.5-10.1) L Neutrophils (%) (Auto) 75.0 % (45.0-75.0) Lymphocytes (%) (Auto) 13.3 % (20.0-45.0) L Monocytes (%) (Auto) 6.8 % (1.0-10.0) Eosinophils (%) (Auto) 3.7 % (0.0-3.0) H Basophils (%) (Auto) 1.2 % (0.0-2.0) Prothrombin Time 17.3 SEC (9.30-11.50) H Prothromb Time International Ratio 1.7 (0.9-1.1) H Activated Partial Thromboplast Time 34 SEC (23-33) H Sodium Level 144 MMOL/L (136-145) Potassium Level 3.4 MMOL/L (3.5-5.1) L Chloride Level 111 MMOL/L (98-107) H Carbon Dioxide Level 24 MMOL/L (21-32) Anion Gap 9 mmol/L (5-15) Blood Urea Nitrogen 10 mg/dL (7-18) Creatinine 1.1 MG/DL (0.55-1.30) Estimat Glomerular Filtration Rate 51.0 mL/min (>60) Glucose Level 194 MG/DL (74-106) H Calcium Level 10.0 MG/DL (8.5-10.1) Phosphorus Level 3.3 MG/DL (2.5-4.9) Magnesium Level 1.6 MG/DL (1.8-2.4) L Total Bilirubin 7.2 MG/DL (0.2-1.0) H Direct Bilirubin 5.2 MG/DL (0.0-0.3) H Aspartate Amino Transf (AST/SGOT) 79 U/L (15-37) H Alanine Aminotransferase (ALT/SGPT) 125 U/L (12-78) H Alkaline Phosphatase 358 U/L (46-116) H Total Protein 5.5 G/DL (6.4-8.2) L Albumin 2.2 G/DL (3.4-5.0) L Globulin 3.3 g/dL Albumin/Globulin Ratio 0.7 (1.0-2.7) L Plan Problems: (1) Multiple injuries due to trauma (2) Sepsis Assessment & Plan: Labs noted lactic acidosis improved with resuscitation CT findings: Limited assessment of the GI tract, due to lack of enteric contrast administration. Exam is also limited due to patient motion artifact and lack of IV contrast administration Evidence of hepatic cirrhosis Small amount of ascites, likely related to the above Surgically absent gallbladder Bilateral basilar pulmonary parenchymal atelectatic changes and possible patchy consolidation Minimal edema of the bilateral flank subcutaneous fat Other findings as noted, including degenerative spondylosis, right hepatic lobe capsular calcification, Quiroz catheter has made a great improvement. denies abd pain. labs improved. decompensated liver cirrhosis LFT's abnormal leukocytosis overall improved but prognosis still guarded Limited assessment of the GI tract, due to lack of enteric contrast administration Abdominal ascites, increased in extent since prior study Increased edema of the subcutaneous fat, since previous study Hepatic surface nodularity, consistent with cirrhosis, also previously reported Borderline splenomegaly Bilateral basilar pulmonary patchy consolidation and atelectasis as well as some congestion. Findings as noted, including degenerative spondylosis, PICC, Quiroz catheter, rectal tube, nasogastric tube CT chest noted -NG tube -NPO -iv fluids -iv abx -trend labs will follow with recs thank you (3) Liver cirrhosis Josh Samuel Oct 24, 2018 13:58
--- NOTE | 2018-10-24 14:05 | Nephrology Progress Note ---
Assessment/Plan Problem List: (1) JONNATHAN (acute kidney injury) Assessment: resolving (2) Shock liver (3) Septic shock (4) Respiratory disorder with ventilator dependence Assessment - Acute Oliguric Renal Failure Cr down to 1.1 - Respiratory disorder with s/p mechanical ventilator - Septic shock , Leukocytosis resolved - Pneumonia - Liver cirrhosis - Obese - Anemia . Plan mag IV as needed transfused 2 units previously down on IV fluid K and Phos IV as needed Hemodynamic support Pulmunary support Monitor renal parameters avoid nephrotoxics as best as possible per orders discussed with RN Subjective ROS Limited/Unobtainable: No Objective Objective Last 24 Hour Vital Signs Date Time Temp Pulse Resp B/P (MAP) Pulse Ox O2 Delivery O2 Flow Rate FiO2 10/24/18 12:00 97.9 103 20 152/82 (105) 96 10/24/18 11:26 106 19 100 Nasal Cannula 2.0 28 10/24/18 11:16 106 20 96 Nasal Cannula 2.0 28 10/24/18 08:00 97.9 105 18 146/77 (100) 95 10/24/18 08:00 106 10/24/18 07:10 105 18 100 Nasal Cannula 2.0 28 10/24/18 06:57 98 Nasal Cannula 2.0 28 10/24/18 06:57 Nasal Cannula 2.0 28 10/24/18 06:57 105 21 98 Nasal Cannula 2.0 28 10/24/18 04:00 98.4 104 24 155/78 (103) 97 10/24/18 04:00 Nasal Cannula 3.0 10/24/18 03:29 105 20 100 Nasal Cannula 2.0 28 10/24/18 03:29 105 20 99 Nasal Cannula 2.0 28 10/24/18 03:22 105 10/24/18 00:00 Nasal Cannula 3.0 10/24/18 00:00 98.9 105 24 145/65 (91) 97 10/23/18 23:23 104 10/23/18 23:00 Nasal Cannula 2.0 28 10/23/18 23:00 Nasal Cannula 2.0 28 10/23/18 20:00 98.4 108 24 131/66 (87) 97 10/23/18 20:00 Nasal Cannula 3.0 10/23/18 19:44 105 10/23/18 19:44 105 20 100 Nasal Cannula 2.0 28 10/23/18 19:34 99 Nasal Cannula 2.0 28 10/23/18 19:34 Nasal Cannula 2.0 28 10/23/18 19:34 108 20 100 Nasal Cannula 2.0 28 10/23/18 16:00 112 10/23/18 16:00 98.7 115 26 135/73 (93) 96 10/23/18 16:00 Nasal Cannula 3.0 10/23/18 15:10 112 20 100 Nasal Cannula 2.0 28 10/23/18 15:10 28 10/23/18 15:00 100 Nasal Cannula 3.0 32 10/23/18 15:00 Nasal Cannula 2.0 28 10/23/18 15:00 108 20 100 Nasal Cannula 2.0 28 Intake and Output 10/23/18 10/24/18 18:59 06:59 Intake Total 1075 ml 500 ml Output Total 2230 ml 1425 ml Balance -1155 ml -925 ml Intake Free Water 150 ml IV Total 925 ml 500 ml Output Urine Total 1750 ml 750 ml Stool Total 400 ml 500 ml Gastric Drainage Total 80 ml 175 ml Laboratory Tests 10/24/18 05:00: White Blood Count 10.3, Red Blood Count 2.81L, Hemoglobin 8.7L, Hematocrit 27.4L , Mean Corpuscular Volume 97, Mean Corpuscular Hemoglobin 30.8, Mean Corpuscular Hemoglobin Concent 31.6L, Red Cell Distribution Width 23.2H, Platelet Count 113L, Mean Platelet Volume 6.4L, Neutrophils (%) (Auto) 75.0, Lymphocytes (%) (Auto) 13.3L, Monocytes (%) (Auto) 6.8, Eosinophils (%) (Auto) 3.7H, Basophils (%) (Auto) 1.2, Prothrombin Time 17.3H, Prothromb Time International Ratio 1.7H, Activated Partial Thromboplast Time 34H, Sodium Level 144, Potassium Level 3.4L, Chloride Level 111H, Carbon Dioxide Level 24, Anion Gap 9, Blood Urea Nitrogen 10, Creatinine 1.1, Estimat Glomerular Filtration Rate 51.0, Glucose Level 194H, Calcium Level 10.0, Phosphorus Level 3.3, Magnesium Level 1.6L, Total Bilirubin 7.2H, Direct Bilirubin 5.2H, Aspartate Amino Transf (AST/SGOT) 79H, Alanine Aminotransferase (ALT/SGPT) 125H, Alkaline Phosphatase 358H, Total Protein 5.5L, Albumin 2.2L, Globulin 3.3, Albumin/ Globulin Ratio 0.7L Height (Feet): 5 Height (Inches): 1.00 Weight (Pounds): 249 General Appearance: no apparent distress Cardiovascular: tachycardia Respiratory/Chest: decreased breath sounds Abdomen: distended Objective NO CHANGE Alex Cueto MD Oct 24, 2018 14:05
--- NOTE | 2018-10-24 14:44 | General Progress Note ---
Assessment/Plan Assessment/Plan Assessment and Recs: # Leukocytosis/Elevated white blood cell count, unspecified likely related to underlying stress reaction, or underlying infection --> have reviewed peripheral smear and bandemia/neutrophilia noted --> continue antibiotics if they have been started by ID team (on zosyn at this time) --> monitor for resolution -->WBC trend: 14-->10-->15-->12-->11-->10 # Thrombocytopenia - potential causes multifactorial, evaluate liver and viral etiologies to begin, also could be related to underlying medications patient has received. Hx of cirrhosis in the past noted on us --> Hep panel and HIV negative --> CT a/p show cirrhosis as well as us --> Peripheral smear ordered to evaluate for blasts /schistocytes is negative --> abx and other meds have been reviewed --> ok for ppx if plt >50k w/ either heparin or lovenox --> Transfuse if Plt < 20k and fever, or if Plt < 10k without fever --> HIT negative, hold off heparin -->Plt trend : 54-->92-->106-->113 # Anemia of iron deficiency as noted with low % sat and tibc elevated --> Anemia workup has been reviewed --> No evidence of hemolysis is noted, peripheral smear has been reviewed. --> Hgb goal >7. Transfuse prn. --> Iron IV X 5 days already given --> Medications have been reviewed # CEA of 10.5 --> Ct of abdomen/pelvis reviewed and is negative # Sepsis likely contributing to low plts --> on abx as needed # Shock, hypovolemic and distributive --> per id and pulm/cc care # Multisystem organ failure. # Lactic acidosis. # JONNATHAN. # Abnormal LFTs, likely shock liver. # Abnormal troponin, likely demand ischemia. # Obesity. # Respiratory failure on vent --> now extubated The timing of this note does not necessarily reflect the time of the patient was seen. Greatly appreciate consultation! Subjective Allergies: Coded Allergies: No Known Allergies (Unverified , 05/06/18) Subjective 3: Pt was seen in ICU on Vent and off pressors, developed atrial fib, wbc trending down to 13, plt trending down to 60 3: remains in the icu, monitoring labs, plts stabilizing, remains critically ill, cea elev 3: In ICU on Vent and off pressors, plt 62, no events 10/16 wbc trending up at 14,plt low at 48,weaning well from vent. no acute events , family at bedside 10/17: plts remain low, no events, weaned off vent, no complaints, off pressors 10/18: seen by bedside, wbc trending up at 15, plt low at 50, no events, needs video swallow. NGT 10/19: wbc remains elevated, plt 54, no acute distress reported 10/21: seen by bedside, still with lots of NG tube output, wbc 12, plt trending up 10/22: awake, alert,has high NG tube residual, wbc 11, no events 10/23: comfortable, wbc trending down, plt trending up , no events 10/24: Seen by bedside, leukocytosis resolved, no events Objective Last 24 Hour Vital Signs Date Time Temp Pulse Resp B/P (MAP) Pulse Ox O2 Delivery O2 Flow Rate FiO2 10/24/18 12:00 97.9 103 20 152/82 (105) 96 10/24/18 11:26 106 19 100 Nasal Cannula 2.0 28 10/24/18 11:16 106 20 96 Nasal Cannula 2.0 28 10/24/18 08:00 97.9 105 18 146/77 (100) 95 10/24/18 08:00 106 10/24/18 07:10 105 18 100 Nasal Cannula 2.0 28 10/24/18 06:57 98 Nasal Cannula 2.0 28 10/24/18 06:57 Nasal Cannula 2.0 28 10/24/18 06:57 105 21 98 Nasal Cannula 2.0 28 10/24/18 04:00 98.4 104 24 155/78 (103) 97 10/24/18 04:00 Nasal Cannula 3.0 10/24/18 03:29 105 20 100 Nasal Cannula 2.0 28 10/24/18 03:29 105 20 99 Nasal Cannula 2.0 28 10/24/18 03:22 105 10/24/18 00:00 Nasal Cannula 3.0 10/24/18 00:00 98.9 105 24 145/65 (91) 97 10/23/18 23:23 104 10/23/18 23:00 Nasal Cannula 2.0 28 10/23/18 23:00 Nasal Cannula 2.0 28 10/23/18 20:00 98.4 108 24 131/66 (87) 97 10/23/18 20:00 Nasal Cannula 3.0 10/23/18 19:44 105 10/23/18 19:44 105 20 100 Nasal Cannula 2.0 28 10/23/18 19:34 99 Nasal Cannula 2.0 28 10/23/18 19:34 Nasal Cannula 2.0 28 10/23/18 19:34 108 20 100 Nasal Cannula 2.0 28 10/23/18 16:00 112 10/23/18 16:00 98.7 115 26 135/73 (93) 96 10/23/18 16:00 Nasal Cannula 3.0 10/23/18 15:10 112 20 100 Nasal Cannula 2.0 28 10/23/18 15:10 28 10/23/18 15:00 100 Nasal Cannula 3.0 32 10/23/18 15:00 Nasal Cannula 2.0 28 10/23/18 15:00 108 20 100 Nasal Cannula 2.0 28 Intake and Output 10/23/18 10/24/18 18:59 06:59 Intake Total 1075 ml 500 ml Output Total 2230 ml 1425 ml Balance -1155 ml -925 ml Intake Free Water 150 ml IV Total 925 ml 500 ml Output Urine Total 1750 ml 750 ml Stool Total 400 ml 500 ml Gastric Drainage Total 80 ml 175 ml Laboratory Tests 10/24/18 05:00: White Blood Count 10.3, Red Blood Count 2.81L, Hemoglobin 8.7L, Hematocrit 27.4L , Mean Corpuscular Volume 97, Mean Corpuscular Hemoglobin 30.8, Mean Corpuscular Hemoglobin Concent 31.6L, Red Cell Distribution Width 23.2H, Platelet Count 113L, Mean Platelet Volume 6.4L, Neutrophils (%) (Auto) 75.0, Lymphocytes (%) (Auto) 13.3L, Monocytes (%) (Auto) 6.8, Eosinophils (%) (Auto) 3.7H, Basophils (%) (Auto) 1.2, Prothrombin Time 17.3H, Prothromb Time International Ratio 1.7H, Activated Partial Thromboplast Time 34H, Sodium Level 144, Potassium Level 3.4L, Chloride Level 111H, Carbon Dioxide Level 24, Anion Gap 9, Blood Urea Nitrogen 10, Creatinine 1.1, Estimat Glomerular Filtration Rate 51.0, Glucose Level 194H, Calcium Level 10.0, Phosphorus Level 3.3, Magnesium Level 1.6L, Total Bilirubin 7.2H, Direct Bilirubin 5.2H, Aspartate Amino Transf (AST/SGOT) 79H, Alanine Aminotransferase (ALT/SGPT) 125H, Alkaline Phosphatase 358H, Total Protein 5.5L, Albumin 2.2L, Globulin 3.3, Albumin/ Globulin Ratio 0.7L Height (Feet): 5 Height (Inches): 1.00 Weight (Pounds): 249 Objective PHYSICAL EXAMINATION: VITAL SIGNS: reviewed, saturating 98% on NC++, GENERAL: She is an obese female, confused. HEENT: Normocephalic and atraumatic. Oropharynx is clear with dry mucous membranes., NJ tube++ NECK: Supple without lymphadenopathy or JVP. CHEST: Clear. HEART: Regular. ABDOMEN: Benign. EXTREMITIES: No cyanosis, clubbing, or edema. There are some ecchymoses in bilateral lower extremities. Kurtis Villagomez MD Oct 24, 2018 14:44
--- NOTE | 2018-10-24 15:30 | NUR ---
ST NOTE: ST WEEK[facility] PT DID NOT MEET PO INTAKE GOALS. NURSING STAFF MET [employer] GOALS. CONTINUE SKILLED ST SERVICE. D/W PT'S CONDITIONS WITH RNIRMA.
--- NOTE | 2018-10-24 15:39 | NUR ---
Social Service Note Patient referred to Cristi Ferrer, (f). [facility] declined patient at this time due to being under funded with medical coverage. Dr. Kelley notified. ANGEL referred case to [facility] for review. ANGEL left a message for patient's Bryan Brice [phone] to address treatment plan of care. Will follow up.
[2018-10-24 16:00] VITALS: BP 149/77
--- NOTE | 2018-10-24 16:49 | Cardiology Progress Note ---
Assessment/Plan Status: stable Assessment/Plan Assessment/Plan Assessment/Plan 1. Atrial fib with RVR. Off Beta janet or CA janet for hypotension. On Dig 0.125 qod and amiodarone 200 daily. In SR off Amiodarone for high LFTs and Bilirubin 7.3 2. S/P Septic shock. On broad spectrum IV antibiotic. 3. Troponin leak. The levels are flat and likely due to this patient's sepsis and septic shock. Her echocardiogram showed ejection fraction 60% to 65% and EKG showed no acute ischemic changes. 4. Nonsustained VT. DC Amio. EF 65% 5. Diabetes. 6. Renal failure. 7. Morbid obesity. 8. Failed Swallow eval. NG tube in 9. S/P Respiratory failure, Extubated 10. Cirrhosis, high Bilirubin and ascites. Subjective Cardiovascular: Reports: no symptoms Respiratory: Reports: no symptoms Gastrointestinal/Abdominal: Reports: no symptoms Genitourinary: Reports: no symptoms Subjective Coverage for [place] Objective Last 24 Hour Vital Signs Date Time Temp Pulse Resp B/P (MAP) Pulse Ox O2 Delivery O2 Flow Rate FiO2 10/24/18 15:17 105 18 100 Nasal Cannula 2.0 28 10/24/18 15:07 107 17 96 Nasal Cannula 2.0 28 10/24/18 12:00 97.9 103 20 152/82 (105) 96 10/24/18 11:26 106 19 100 Nasal Cannula 2.0 28 10/24/18 11:16 106 20 96 Nasal Cannula 2.0 28 10/24/18 08:00 97.9 105 18 146/77 (100) 95 10/24/18 08:00 106 10/24/18 07:10 105 18 100 Nasal Cannula 2.0 28 10/24/18 06:57 98 Nasal Cannula 2.0 28 10/24/18 06:57 Nasal Cannula 2.0 28 10/24/18 06:57 105 21 98 Nasal Cannula 2.0 28 10/24/18 04:00 98.4 104 24 155/78 (103) 97 10/24/18 04:00 Nasal Cannula 3.0 10/24/18 03:29 105 20 100 Nasal Cannula 2.0 28 10/24/18 03:29 105 20 99 Nasal Cannula 2.0 28 10/24/18 03:22 105 10/24/18 00:00 Nasal Cannula 3.0 10/24/18 00:00 98.9 105 24 145/65 (91) 97 10/23/18 23:23 104 10/23/18 23:00 Nasal Cannula 2.0 28 10/23/18 23:00 Nasal Cannula 2.0 28 10/23/18 20:00 98.4 108 24 131/66 (87) 97 10/23/18 20:00 Nasal Cannula 3.0 10/23/18 19:44 105 10/23/18 19:44 105 20 100 Nasal Cannula 2.0 28 10/23/18 19:34 99 Nasal Cannula 2.0 28 10/23/18 19:34 Nasal Cannula 2.0 28 10/23/18 19:34 108 20 100 Nasal Cannula 2.0 28 General Appearance: no apparent distress, alert EENT: PERRL/EOMI, normal ENT inspection, TMs normal Neck: non-tender, supple, normal inspection Rhythm: NSR Cardiovascular: normal peripheral pulses, normal rate Respiratory/Chest: lungs clear, normal breath sounds Abdomen: hypoactive bowel sounds, tender, hepatomegaly Extremities: normal range of motion, non-tender, no calf tenderness Neurologic: baker II-XII grossly normal, no motor/sensory deficits Intake and Output 10/23/18 10/24/18 18:59 06:59 Intake Total 1075 ml 500 ml Output Total 2230 ml 1425 ml Balance -1155 ml -925 ml Intake Free Water 150 ml IV Total 925 ml 500 ml Output Urine Total 1750 ml 750 ml Stool Total 400 ml 500 ml Gastric Drainage Total 80 ml 175 ml Laboratory Tests Test 10/24/18 05:00 White Blood Count 10.3 K/UL (4.8-10.8) Red Blood Count 2.81 M/UL (4.20-5.40) L Hemoglobin 8.7 G/DL (12.0-16.0) L Hematocrit 27.4 % (37.0-47.0) L Mean Corpuscular Volume 97 FL (80-99) Mean Corpuscular Hemoglobin 30.8 PG (27.0-31.0) Mean Corpuscular Hemoglobin Concent 31.6 G/DL (32.0-36.0) L Red Cell Distribution Width 23.2 % (11.6-14.8) H Platelet Count 113 K/UL (150-450) L Mean Platelet Volume 6.4 FL (6.5-10.1) L Neutrophils (%) (Auto) 75.0 % (45.0-75.0) Lymphocytes (%) (Auto) 13.3 % (20.0-45.0) L Monocytes (%) (Auto) 6.8 % (1.0-10.0) Eosinophils (%) (Auto) 3.7 % (0.0-3.0) H Basophils (%) (Auto) 1.2 % (0.0-2.0) Prothrombin Time 17.3 SEC (9.30-11.50) H Prothromb Time International Ratio 1.7 (0.9-1.1) H Activated Partial Thromboplast Time 34 SEC (23-33) H Sodium Level 144 MMOL/L (136-145) Potassium Level 3.4 MMOL/L (3.5-5.1) L Chloride Level 111 MMOL/L (98-107) H Carbon Dioxide Level 24 MMOL/L (21-32) Anion Gap 9 mmol/L (5-15) Blood Urea Nitrogen 10 mg/dL (7-18) Creatinine 1.1 MG/DL (0.55-1.30) Estimat Glomerular Filtration Rate 51.0 mL/min (>60) Glucose Level 194 MG/DL (74-106) H Calcium Level 10.0 MG/DL (8.5-10.1) Phosphorus Level 3.3 MG/DL (2.5-4.9) Magnesium Level 1.6 MG/DL (1.8-2.4) L Total Bilirubin 7.2 MG/DL (0.2-1.0) H Direct Bilirubin 5.2 MG/DL (0.0-0.3) H Aspartate Amino Transf (AST/SGOT) 79 U/L (15-37) H Alanine Aminotransferase (ALT/SGPT) 125 U/L (12-78) H Alkaline Phosphatase 358 U/L (46-116) H Total Protein 5.5 G/DL (6.4-8.2) L Albumin 2.2 G/DL (3.4-5.0) L Globulin 3.3 g/dL Albumin/Globulin Ratio 0.7 (1.0-2.7) L Vishnu Parish MD Oct 24, 2018 16:49
[2018-10-24] MEDS ORDERED: NS 275ml ONE (17:36)
[2018-10-24] MEDS ORDERED: NS 500ML ONE (17:36)
--- NOTE | 2018-10-24 19:40 | NUR ---
HAND-OFF: Report given to Peyman Dobson RN.:
--- NOTE | 2018-10-24 19:45 | NUR ---
NURSE NOTES: Received Pt is resting on the bed and awake and slight agitated and confused. Family stay at bedside at this time. On O2 3L via nasal cannula and SaO2 97% noted. Keep NGT with lower intermittent suction and noted yellowish discharge. Denied pain at this time. On bilateral soft restraint. Checked comfort and circulation. Trying to release restraint when during care but Pt still truing to touch NGT and PICC line. Given verbal cueing. Pt has Lt. upper PICC line and dressing is dry and intact. On Quiroz cath and patent and drainage well. On Rectal tube and in placed. On Tele monitor with ST with HR ; 106's. Changed position. Placed fall precaution. Will continue to care plan.
[2018-10-24] MEDS: Dyna-Hex 2% Top Sol 2oz TOPIC SCH (19:59)
[2018-10-24 20:00] VITALS: BP 137/69
--- NOTE | 2018-10-24 21:42 | General Progress Note ---
Assessment/Plan Problem List: (1) Hypotension ICD Codes: I95.9 - Hypotension, unspecified SNOMED: 85864961 (2) Hyperglycemia ICD Codes: R73.9 - Hyperglycemia, unspecified SNOMED: 50297929 (3) Dyspnea ICD Codes: R06.00 - Dyspnea, unspecified SNOMED: 911280066 (4) Hypoxemia ICD Codes: R09.02 - Hypoxemia SNOMED: 058896872 (5) Contusion of left knee ICD Codes: S80.02XA - Contusion of left knee, initial encounter SNOMED: 08905156 (6) Sepsis ICD Codes: A41.9 - Sepsis, unspecified organism SNOMED: 49137908 (7) Septic shock ICD Codes: A41.9 - Sepsis, unspecified organism; R65.21 - Severe sepsis with septic shock SNOMED: 13805567 (8) Liver cirrhosis ICD Codes: K74.60 - Unspecified cirrhosis of liver SNOMED: 11646003 (9) Pneumonia ICD Codes: J18.9 - Pneumonia, unspecified organism SNOMED: 280594981 (10) Respiratory disorder with ventilator dependence ICD Codes: J98.9 - Respiratory disorder, unspecified; Z99.11 - Dependence on respirator [ventilator] status SNOMED: 69891727, 207407231 (11) Shock liver ICD Codes: K72.00 - Acute and subacute hepatic failure without coma SNOMED: 150636504 Status: progressing Assessment/Plan still lethargic has ng tube poor prognosis encelphalopathy edema cihrrosis sepsis obesity morbid pna Subjective ROS Limited/Unobtainable: Yes Allergies: Coded Allergies: No Known Allergies (Unverified , 05/06/18) Objective Last 24 Hour Vital Signs Date Time Temp Pulse Resp B/P (MAP) Pulse Ox O2 Delivery O2 Flow Rate FiO2 10/24/18 20:00 Nasal Cannula 3.0 10/24/18 20:00 98.8 108 20 137/69 (91) 97 10/24/18 19:25 114 20 95 Nasal Cannula 2.0 28 10/24/18 19:08 109 20 96 Nasal Cannula 2.0 28 10/24/18 19:07 Nasal Cannula 2.0 28 10/24/18 19:07 96 Nasal Cannula 2.0 28 10/24/18 16:00 98.4 106 20 149/77 (101) 97 10/24/18 16:00 Nasal Cannula 3.0 10/24/18 15:47 106 10/24/18 15:17 105 18 100 Nasal Cannula 2.0 28 10/24/18 15:07 107 17 96 Nasal Cannula 2.0 28 10/24/18 12:00 97.9 103 20 152/82 (105) 96 10/24/18 11:33 107 10/24/18 11:26 106 19 100 Nasal Cannula 2.0 28 10/24/18 11:16 106 20 96 Nasal Cannula 2.0 28 10/24/18 08:00 97.9 105 18 146/77 (100) 95 10/24/18 08:00 Nasal Cannula 3.0 10/24/18 08:00 106 10/24/18 07:10 105 18 100 Nasal Cannula 2.0 28 10/24/18 06:57 98 Nasal Cannula 2.0 28 10/24/18 06:57 Nasal Cannula 2.0 28 10/24/18 06:57 105 21 98 Nasal Cannula 2.0 28 10/24/18 04:00 98.4 104 24 155/78 (103) 97 10/24/18 04:00 Nasal Cannula 3.0 10/24/18 03:29 105 20 100 Nasal Cannula 2.0 28 10/24/18 03:29 105 20 99 Nasal Cannula 2.0 28 10/24/18 03:22 105 10/24/18 00:00 Nasal Cannula 3.0 10/24/18 00:00 98.9 105 24 145/65 (91) 97 10/23/18 23:23 104 10/23/18 23:00 Nasal Cannula 2.0 28 10/23/18 23:00 Nasal Cannula 2.0 28 Intake and Output 10/23/18 10/24/18 19:00 07:00 Intake Total 925 ml 650 ml Output Total 2230 ml 1425 ml Balance -1305 ml -775 ml Intake Free Water 150 ml IV Total 775 ml 650 ml Output Urine Total 1750 ml 750 ml Stool Total 400 ml 500 ml Gastric Drainage Total 80 ml 175 ml Laboratory Tests 10/24/18 05:00: White Blood Count 10.3, Red Blood Count 2.81L, Hemoglobin 8.7L, Hematocrit 27.4L , Mean Corpuscular Volume 97, Mean Corpuscular Hemoglobin 30.8, Mean Corpuscular Hemoglobin Concent 31.6L, Red Cell Distribution Width 23.2H, Platelet Count 113L, Mean Platelet Volume 6.4L, Neutrophils (%) (Auto) 75.0, Lymphocytes (%) (Auto) 13.3L, Monocytes (%) (Auto) 6.8, Eosinophils (%) (Auto) 3.7H, Basophils (%) (Auto) 1.2, Prothrombin Time 17.3H, Prothromb Time International Ratio 1.7H, Activated Partial Thromboplast Time 34H, Sodium Level 144, Potassium Level 3.4L, Chloride Level 111H, Carbon Dioxide Level 24, Anion Gap 9, Blood Urea Nitrogen 10, Creatinine 1.1, Estimat Glomerular Filtration Rate 51.0, Glucose Level 194H, Calcium Level 10.0, Phosphorus Level 3.3, Magnesium Level 1.6L, Total Bilirubin 7.2H, Direct Bilirubin 5.2H, Aspartate Amino Transf (AST/SGOT) 79H, Alanine Aminotransferase (ALT/SGPT) 125H, Alkaline Phosphatase 358H, Total Protein 5.5L, Albumin 2.2L, Globulin 3.3, Albumin/ Globulin Ratio 0.7L Height (Feet): 5 Height (Inches): 1.00 Weight (Pounds): 249 General Appearance: lethargic, confused Neck: supple Cardiovascular: normal rate Respiratory/Chest: lungs clear Michael Kelley MD Oct 24, 2018 21:42
--- NOTE | 2018-10-24 22:25 | Pulmonology Progress Note ---
Assessment/Plan Assessment/Plan ASSESSMENT: The patient is a 58-year-old female with a history of obesity, diabetes, hypertension, hyperlipidemia, and sciatica with chronic low back pain , DDD/DJD, presenting after a mechanical fall with altered mental status and confusion with likely sepsis and multisystem organ failure. PROBLEM LIST: 1. VDRF, EXTUBATED 10/16/18 2. Sepsis 3. Shock, hypovolemic and distributive. 4. Multisystem organ failure. 5. Lactic acidosis. 6. Anion gap metabolic acidosis. 7. JONNATHAN - BETTER 7. Abnormal LFTs, likely shock liver. 8. Abnormal troponin, likely demand ischemia. 9. Elevated D-dimer and PASP concerning for an acute PE 10. Obesity. 11. Diabetes. 12. Hypertension. 13. Chronic low back pain and sciatica. 14. Anemia/FOBT + 15. Thrombocytopenia 16. AFcRVR now in NSR 17. HyperNa 18. Herpes labialis TREATMENT PLAN: 1. Optimize pulmonary hygiene/mobilize as tolerated 2. Titrate down FiO2 to keep SaO2 < 90% 3. Observe off Abx per ID. On Acyclovir for herpes labialis 4. Continue D5W, IV lasix, PRN albumin 6. SSI, monitor BS 7. Follow up cards recs 8. GI and surgery recs, PRN para, NGT to LIS, NPO, ENDOSCOPY?, trend LFT's 9. DVT prophylaxis: SCD 10. FC, discuss GOC, consider palliative care eval Subjective Allergies: Coded Allergies: No Known Allergies (Unverified , 05/06/18) Subjective AFVSS O2 needs stable CT-A without obvious PE, + R HD elevation BiB atx and scattered GGO's Diffusely edematous + cough no SOB no F/C Objective Last 24 Hour Vital Signs Date Time Temp Pulse Resp B/P (MAP) Pulse Ox O2 Delivery O2 Flow Rate FiO2 10/24/18 20:00 Nasal Cannula 3.0 10/24/18 20:00 98.8 108 20 137/69 (91) 97 10/24/18 20:00 106 10/24/18 19:25 114 20 95 Nasal Cannula 2.0 28 10/24/18 19:08 109 20 96 Nasal Cannula 2.0 28 10/24/18 19:07 Nasal Cannula 2.0 28 10/24/18 19:07 96 Nasal Cannula 2.0 28 10/24/18 16:00 98.4 106 20 149/77 (101) 97 10/24/18 16:00 Nasal Cannula 3.0 10/24/18 15:47 106 10/24/18 15:17 105 18 100 Nasal Cannula 2.0 28 10/24/18 15:07 107 17 96 Nasal Cannula 2.0 28 10/24/18 12:00 97.9 103 20 152/82 (105) 96 10/24/18 11:33 107 10/24/18 11:26 106 19 100 Nasal Cannula 2.0 28 10/24/18 11:16 106 20 96 Nasal Cannula 2.0 28 10/24/18 08:00 97.9 105 18 146/77 (100) 95 10/24/18 08:00 Nasal Cannula 3.0 10/24/18 08:00 106 10/24/18 07:10 105 18 100 Nasal Cannula 2.0 28 10/24/18 06:57 98 Nasal Cannula 2.0 28 10/24/18 06:57 Nasal Cannula 2.0 28 10/24/18 06:57 105 21 98 Nasal Cannula 2.0 28 10/24/18 04:00 98.4 104 24 155/78 (103) 97 10/24/18 04:00 Nasal Cannula 3.0 10/24/18 03:29 105 20 100 Nasal Cannula 2.0 28 10/24/18 03:29 105 20 99 Nasal Cannula 2.0 28 10/24/18 03:22 105 10/24/18 00:00 Nasal Cannula 3.0 10/24/18 00:00 98.9 105 24 145/65 (91) 97 10/23/18 23:23 104 10/23/18 23:00 Nasal Cannula 2.0 28 10/23/18 23:00 Nasal Cannula 2.0 28 Intake and Output 10/23/18 10/24/18 19:00 07:00 Intake Total 925 ml 650 ml Output Total 2230 ml 1425 ml Balance -1305 ml -775 ml Intake Free Water 150 ml IV Total 775 ml 650 ml Output Urine Total 1750 ml 750 ml Stool Total 400 ml 500 ml Gastric Drainage Total 80 ml 175 ml General Appearance: no acute distress, cachetic, other - incteric HEENT: normocephalic, atraumatic, anicteric, mucous membranes moist, other - elevated JVD Respiratory/Chest: crackles/rales - BiB Cardiovascular: normal peripheral pulses, normal rate, regular rhythm Abdomen: normal bowel sounds, soft, non tender, no organomegaly, non distended , no mass Extremities: no cyanosis, no clubbing, no edema Laboratory Tests 10/24/18 05:00: White Blood Count 10.3, Red Blood Count 2.81L, Hemoglobin 8.7L, Hematocrit 27.4L , Mean Corpuscular Volume 97, Mean Corpuscular Hemoglobin 30.8, Mean Corpuscular Hemoglobin Concent 31.6L, Red Cell Distribution Width 23.2H, Platelet Count 113L, Mean Platelet Volume 6.4L, Neutrophils (%) (Auto) 75.0, Lymphocytes (%) (Auto) 13.3L, Monocytes (%) (Auto) 6.8, Eosinophils (%) (Auto) 3.7H, Basophils (%) (Auto) 1.2, Prothrombin Time 17.3H, Prothromb Time International Ratio 1.7H, Activated Partial Thromboplast Time 34H, Sodium Level 144, Potassium Level 3.4L, Chloride Level 111H, Carbon Dioxide Level 24, Anion Gap 9, Blood Urea Nitrogen 10, Creatinine 1.1, Estimat Glomerular Filtration Rate 51.0, Glucose Level 194H, Calcium Level 10.0, Phosphorus Level 3.3, Magnesium Level 1.6L, Total Bilirubin 7.2H, Direct Bilirubin 5.2H, Aspartate Amino Transf (AST/SGOT) 79H, Alanine Aminotransferase (ALT/SGPT) 125H, Alkaline Phosphatase 358H, Total Protein 5.5L, Albumin 2.2L, Globulin 3.3, Albumin/ Globulin Ratio 0.7L Current Medications Medications (Trade) Dose Ordered Sig/Patricia Route PRN Reason Start Time Stop Time Status Last Admin Dose Admin Acyclovir (Zovirax) 400 mg EVERY 8 HOURS ORAL 10/22/18 10:15 11/21/18 10:14 10/24/18 22:05 Albuterol/ Ipratropium (Albuterol/ Ipratropium) 3 ml Q4HRT HHN 10/23/18 03:00 10/28/18 02:59 10/24/18 19:12 Chlorhexidine Gluconate (Nguyen-Hex 2%) 1 applic DAILY@2000 TOPIC 10/17/18 20:00 11/09/18 19:59 10/24/18 19:59 Dextrose 1,000 ml @ 75 mls/hr [id number] IV 10/19/18 13:30 11/18/18 13:29 10/24/18 16:04 Dextrose (Dextrose 50%) 25 ml Q30M PRN IV Hypoglycemia 10/17/18 14:45 11/10/18 13:44 Dextrose (Dextrose 50%) 50 ml Q30M PRN IV Hypoglycemia 10/17/18 14:45 11/10/18 13:44 Digoxin (Lanoxin) 0.125 mg QOD NG 10/19/18 09:00 11/15/18 08:59 10/23/18 09:10 Diphenhydramine HCl (Benadryl) 25 mg Q6H PRN IVP Itching 10/17/18 14:30 11/08/18 14:29 Furosemide (Lasix) 40 mg DAILY IV 10/23/18 09:45 11/22/18 09:44 10/24/18 09:47 Insulin Aspart (NovoLOG) BEFORE MEALS AND HS SUBQ 10/17/18 16:30 11/10/18 16:29 10/24/18 21:15 Lactulose (Cephulac) 30 gm THREE TIMES A DAY NG 10/17/18 18:00 11/12/18 17:59 10/24/18 17:48 Metoclopramide HCl (Reglan) 5 mg Q6H IVP 10/17/18 17:30 11/13/18 11:29 10/24/18 17:47 Midazolam HCl (Versed 2mg/2ml vial) 1 mg Q2H PRN IVP For Anxiety 10/17/18 14:30 11/11/18 14:29 Pantoprazole (Protonix) 40 mg EVERY 12 HOURS IVP 10/17/18 21:00 11/09/18 20:59 10/24/18 21:12 Rifaximin (Xifaxan) 550 mg EVERY 12 HOURS ORAL 10/17/18 21:00 10/26/18 20:59 10/24/18 21:12 Spironolactone (Aldactone) 25 mg DAILY ORAL 10/23/18 09:45 11/22/18 09:44 10/24/18 09:48 Renato Delarosa MD Oct 24, 2018 22:25
[2018-10-25] VITALS: BP 131/70
[2018-10-25] MEDS: Albuterol/Ipratropium 3ml neb HHN SCH ×6 (02:59→23:09)
[2018-10-25 04:00] VITALS: BP 142/70
[2018-10-25] MEDS: Metoclopramide 10mg/2ml Inj IVP SCH ×4 (05:33→23:12)
[2018-10-25] MEDS: Acyclovir 200mg Cap ORAL SCH ×3 (05:33→21:54)
[2018-10-25] MEDS: NovoLOG Insulin Flexpen SUBQ SCH ×4 (06:41→21:10)
--- NOTE | 2018-10-25 07:24 | NUR ---
HAND-OFF: Report given to KARI Cortes. Pt is resting on the bed and no sign of acute distress noted.
--- NOTE | 2018-10-25 07:25 | NUR ---
NURSE NOTES: Received patient from KARI Morley. Patient in bed, awake, and able to follow commands. On 3L NC. In no respiratory distress. panel monitor placed. NG tube in placed in low intermittent suction. Rectal tube and medina catheter are placed. PICC on LISA and asymptomatic. Bed in lowest position with side rails up. Will continue to follow plan of care.
[2018-10-25 08:00] VITALS: BP 131/77
[2018-10-25] MEDS: Pantoprazole Inj IVP SCH ×2 (08:57→21:08)
[2018-10-25] MEDS: Digoxin 0.125mg tab NG SCH (08:58)
[2018-10-25] MEDS: Lactulose 20gm/30ml UDC NG SCH ×3 (08:58→17:45)
[2018-10-25] MEDS: Spironolactone 25mg tab ORAL SCH (08:58)
--- NOTE | 2018-10-25 09:50 | NUR ---
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 RESP DISTRESS VS: BP142/70, P 105, T 97.7, RR 22, SpO2 99 on 2.0L NC RBC 2.81, K3.4, Glucose 194, Magnesium 1.6, CHLORIDE 111, AST 79, ALT 125, AMMONIA 92 CTA CHEST w/ CONTRAST IMPRESSION: Elevated right hemidiaphragm. Resultant right basilar atelectatic changes, as well as atelectatic changes in the posterior lungs bilaterally. Consolidative and groundglass opacities may reflect areas of infiltrate or edema. Evidence of hepatic cirrhosis, with ascites and splenomegaly, also previously described. IS: D50 IV x1L REGLAN 5mg IVP NOVOLOG SUBQ ACYCLOVIR 400mg LACTULOSE 30gm NG RIFAXIMIN 550mg PROTONIX 40mg IVP DIGOXIN 0.125mg NG ALBUTEROL 3mlM HHN ALDACTONE 25mg LASIX 40mg IV SDU STATUS
[2018-10-25 09:58] LABS: BASOPHILS % (AUTO) 1.5 % (0.0-2.0); EOSINOPHILS % (AUTO) 3.9 % (0.0-3.0); HEMATOCRIT 27.1 % (37.0-47.0); HEMOGLOBIN 8.6 G/DL (12.0-16.0); LYMPHOCYTES % (AUTO) 14.9 % (20.0-45.0); MEAN CORPUSCULAR VOLUME 96 FL (80-99); MONOCYTES % (AUTO) 7.3 % (1.0-10.0); NEUTROPHILS % (AUTO) 72.4 % (45.0-75.0); PLATELET COUNT 102 K/UL (150-450); RED BLOOD COUNT 2.81 M/UL (4.20-5.40); WHITE BLOOD COUNT 9.4 K/UL (4.8-10.8)
[2018-10-25 10:08] LABS: ANION GAP 8 mmol/L (5-15); BLOOD UREA NITROGEN 10 mg/dL (7-18); CALCIUM 9.7 MG/DL (8.5-10.1); CARBON DIOXIDE 27 MMOL/L (21-32); CHLORIDE 108 MMOL/L (98-107); CREATININE 1.1 MG/DL (0.55-1.30); POTASSIUM 3.2 MMOL/L (3.5-5.1); SODIUM 142 MMOL/L (136-145)
--- NOTE | 2018-10-25 10:59 | Infectious Diseases Prog Note ---
Assessment/Plan Assessment/Plan antibiotics : acyclovir, rifaximin A 1. lip herpes 2. cirrhosis 3. diabetes mellitus 4. renal failure resolved P 1. continue acyclovir 2 more days 2. patient on rifaximin 3. will follow up cultures Subjective Constitutional: Denies: fever, chills Respiratory: Denies: shortness of breath, dry cough Gastrointestinal/Abdominal: Denies: nausea, vomiting, diarrhea Musculoskeletal: Denies: pain Allergies: Coded Allergies: No Known Allergies (Unverified , 05/06/18) Objective Vital Signs Last 24 Hour Vital Signs Date Time Temp Pulse Resp B/P (MAP) Pulse Ox O2 Delivery O2 Flow Rate FiO2 10/25/18 08:58 103 10/25/18 08:00 Nasal Cannula 3.0 10/25/18 08:00 97.7 103 22 131/77 (95) 99 10/25/18 07:41 104 10/25/18 07:13 100 20 99 Nasal Cannula 2.0 28 10/25/18 07:03 105 20 99 Nasal Cannula 2.0 28 10/25/18 07:02 99 Nasal Cannula 2.0 28 10/25/18 07:02 Nasal Cannula 2.0 28 10/25/18 04:00 98.3 103 20 142/70 (94) 99 10/25/18 04:00 Nasal Cannula 3.0 10/25/18 04:00 104 10/25/18 03:09 105 20 100 Nasal Cannula 2.0 28 10/25/18 02:56 103 20 99 Nasal Cannula 2.0 28 10/25/18 00:00 98.8 108 20 131/70 (90) 97 10/25/18 00:00 Nasal Cannula 3.0 10/25/18 00:00 104 10/24/18 23:15 103 20 99 Nasal Cannula 2.0 28 10/24/18 23:00 102 20 97 Nasal Cannula 2.0 28 10/24/18 20:00 Nasal Cannula 3.0 10/24/18 20:00 98.8 108 20 137/69 (91) 97 10/24/18 20:00 106 10/24/18 19:25 114 20 95 Nasal Cannula 2.0 28 10/24/18 19:08 109 20 96 Nasal Cannula 2.0 28 10/24/18 19:07 Nasal Cannula 2.0 28 10/24/18 19:07 96 Nasal Cannula 2.0 28 10/24/18 16:00 98.4 106 20 149/77 (101) 97 10/24/18 16:00 Nasal Cannula 3.0 10/24/18 15:47 106 10/24/18 15:17 105 18 100 Nasal Cannula 2.0 28 10/24/18 15:07 107 17 96 Nasal Cannula 2.0 28 10/24/18 12:00 97.9 103 20 152/82 (105) 96 10/24/18 11:33 107 10/24/18 11:26 106 19 100 Nasal Cannula 2.0 28 10/24/18 11:16 106 20 96 Nasal Cannula 2.0 28 Height (Feet): 5 Height (Inches): 1.00 Weight (Pounds): 250 HEENT: other - hyperpigmented lesion on lower lip Respiratory/Chest: lungs clear Cardiovascular: normal rate, regular rhythm, no gallop/murmur Abdomen: soft, non tender Extremities: other - + edema Laboratory Tests Test 10/25/18 09:47 White Blood Count 9.4 K/UL (4.8-10.8) Red Blood Count 2.81 M/UL (4.20-5.40) L Hemoglobin 8.6 G/DL (12.0-16.0) L Hematocrit 27.1 % (37.0-47.0) L Mean Corpuscular Volume 96 FL (80-99) Mean Corpuscular Hemoglobin 30.5 PG (27.0-31.0) Mean Corpuscular Hemoglobin Concent 31.6 G/DL (32.0-36.0) L Red Cell Distribution Width 23.0 % (11.6-14.8) H Platelet Count 102 K/UL (150-450) L Mean Platelet Volume 6.3 FL (6.5-10.1) L Neutrophils (%) (Auto) 72.4 % (45.0-75.0) Lymphocytes (%) (Auto) 14.9 % (20.0-45.0) L Monocytes (%) (Auto) 7.3 % (1.0-10.0) Eosinophils (%) (Auto) 3.9 % (0.0-3.0) H Basophils (%) (Auto) 1.5 % (0.0-2.0) Sodium Level 142 MMOL/L (136-145) Potassium Level 3.2 MMOL/L (3.5-5.1) L Chloride Level 108 MMOL/L (98-107) H Carbon Dioxide Level 27 MMOL/L (21-32) Anion Gap 8 mmol/L (5-15) Blood Urea Nitrogen 10 mg/dL (7-18) Creatinine 1.1 MG/DL (0.55-1.30) Estimat Glomerular Filtration Rate 51.0 mL/min (>60) Glucose Level 176 MG/DL (74-106) H Calcium Level 9.7 MG/DL (8.5-10.1) Magnesium Level 1.4 MG/DL (1.8-2.4) L Current Medications Medications (Trade) Dose Ordered Sig/Patricia Route PRN Reason Start Time Stop Time Status Last Admin Dose Admin Acyclovir (Zovirax) 400 mg EVERY 8 HOURS ORAL 10/22/18 10:15 11/21/18 10:14 10/25/18 05:33 Albuterol/ Ipratropium (Albuterol/ Ipratropium) 3 ml Q4HRT HHN 10/23/18 03:00 10/28/18 02:59 10/25/18 07:04 Chlorhexidine Gluconate (Nguyen-Hex 2%) 1 applic DAILY@2000 TOPIC 10/17/18 20:00 11/09/18 19:59 10/24/18 19:59 Dextrose 1,000 ml @ 75 mls/hr [id number] IV 10/19/18 13:30 11/18/18 13:29 10/25/18 05:05 Dextrose (Dextrose 50%) 25 ml Q30M PRN IV Hypoglycemia 10/17/18 14:45 11/10/18 13:44 Dextrose (Dextrose 50%) 50 ml Q30M PRN IV Hypoglycemia 10/17/18 14:45 11/10/18 13:44 Digoxin (Lanoxin) 0.125 mg QOD NG 10/19/18 09:00 11/15/18 08:59 10/25/18 08:58 Diphenhydramine HCl (Benadryl) 25 mg Q6H PRN IVP Itching 10/17/18 14:30 11/08/18 14:29 Furosemide (Lasix) 40 mg DAILY IV 10/23/18 09:45 11/22/18 09:44 10/25/18 08:58 Insulin Aspart (NovoLOG) BEFORE MEALS AND HS SUBQ 10/17/18 16:30 11/10/18 16:29 10/25/18 06:41 Lactulose (Cephulac) 30 gm THREE TIMES A DAY NG 10/17/18 18:00 11/12/18 17:59 10/25/18 08:58 Magnesium Sulfate 100 ml @ 100 mls/hr Q1H IVPB 10/25/18 11:45 10/25/18 15:44 Metoclopramide HCl (Reglan) 5 mg Q6H IVP 10/17/18 17:30 11/13/18 11:29 10/25/18 05:33 Midazolam HCl (Versed 2mg/2ml vial) 1 mg Q2H PRN IVP For Anxiety 10/17/18 14:30 11/11/18 14:29 Pantoprazole (Protonix) 40 mg EVERY 12 HOURS IVP 10/17/18 21:00 11/09/18 20:59 10/25/18 08:57 Potassium Chloride 100 ml @ 50 mls/hr Q2H IVPB 10/25/18 11:00 10/25/18 14:59 Rifaximin (Xifaxan) 550 mg EVERY 12 HOURS ORAL 10/17/18 21:00 10/26/18 20:59 10/25/18 08:58 Spironolactone (Aldactone) 25 mg DAILY ORAL 10/23/18 09:45 11/22/18 09:44 10/25/18 08:58 Robert Gipson MD Oct 25, 2018 10:59
--- NOTE | 2018-10-25 11:13 | NUR ---
RD ASSESSMENT & RECOMMENDATIONS SEE CARE ACTIVITY FOR COMPLETE ASSESSMENT DAILY ESTIMATED NEEDS: Needs based on Sepsis, obesity, DM 24-28, 64kg adj kcals/kg 5190-8150 total kcals 1.2-2, 64kg adj g protein/kg 77-128 g total protein Fluid per MD NUTRITION DIAGNOSIS: 1) Swallowing difficulty r/t respiratory status as evidenced by pt is now extubated, off pressors, CONTENT ENGINEER w/ rec to continue NPO, nonoral feedings held at this time for gastric secretions, w/ NGT to LIS. 2) Altered nutrition related lab values r/t critical care. septic shock and multi organ failure as evidenced by critically elev WBC-> now wnl, elev creat kinase (3542), elev LFT's, elev T bili (6.9) elev phos (5.2 -> wnl), elev Creat-> now wnl, elev ammonia (62-> 92), elev BNP (6076->658), elev A1C (11.0), elev FBGs (176 194).` CURRENT DIET:NPO PO DIET RECOMMENDATIONS: WHEN SAFE FOR PO-> CCHO LOW, CARDIAC/ texture per CONTENT ENGINEER ENTERAL NUTRITION RECOMMENDATIONS: Glucerna 1.2 @ 55ml/hr x 24 hrs to provide 1320ml, 1584kcal, 79g prot, 1063ml free water * Once able to feed via GI, resume TF of Glucerna 1.2 @ 15ml/hr x 6-8 hrs * Advance 10ml q 4-6 hrs as tolerated to goal * HOB over 30 degrees/ water flush per PARENTERAL NUTRITION RECOMMENDATIONS: D/AA Rate: 67 IL Rate: 8 Total Rate: 75 Volume: 1800 % Dextrose: 15 % AA: 5.0 Energy (kcals/kg): 1535 Protein (g/kg protein): 80 Nonprotein KCALS: 1204 GIR (mg CHO/kg/min): 2.6 % Fat KCALS: 25 NCP: N Ratio: 94 TPN Comment: * REC TPN DUE TO ANTICIPATED PROLONGED NPO STATUS- DAY 9 NPO TODAY * D15% AA 5.0% @ 67ml/hr + IL20% @ 8ml/hr -> all 3:1, total of 75ml/hr * TPN @ goal will provide 100% est kcal/prot needs * Rec insulin in TPN Initiate TPN SLOWLY @ 15ml/hr 6 hrs, advance 10ml q 4-6 hrs as tolerated to goal rate ADDITIONAL RECOMMENDATIONS: * CALIBRATED BED SCALE WTS * REC TPN- NPO DAY 9 TODAY, STILL W/ NGT TO LIS + OUTPUT * Monitor lytes daily, replete as needed (low K and mag) * Monitor BGs closely w/ TPN- rec insulin in TPN . Addendum: 10/25/18 at [address] addendum: Pt is at HIGH RISK for refeeding syndrome. Rec to start TPN SLOWLY as per recs above. Monitor lytes daily.
[2018-10-25 12:00] VITALS: BP 144/73
--- NOTE | 2018-10-25 13:00 | NUR ---
NURSE NOTES: Dr. Samuel at bedside and removed patient's NG tube and will put in a diet order for the patient.
--- NOTE | 2018-10-25 13:50 | Surgery Progress Note ---
Surgery Progress Note Subjective Additional Comments looks better today. ng tube output decreased and gastric contents. stool output Objective Last 24 Hour Vital Signs Date Time Temp Pulse Resp B/P (MAP) Pulse Ox O2 Delivery O2 Flow Rate FiO2 10/25/18 12:00 Nasal Cannula 3.0 10/25/18 12:00 97.9 104 18 144/73 (96) 98 10/25/18 11:53 103 20 100 Nasal Cannula 2.0 28 10/25/18 11:43 103 20 98 Nasal Cannula 2.0 28 10/25/18 08:58 103 10/25/18 08:00 Nasal Cannula 3.0 10/25/18 08:00 97.7 103 22 131/77 (95) 99 10/25/18 07:41 104 10/25/18 07:13 100 20 99 Nasal Cannula 2.0 28 10/25/18 07:03 105 20 99 Nasal Cannula 2.0 28 10/25/18 07:02 99 Nasal Cannula 2.0 28 10/25/18 07:02 Nasal Cannula 2.0 28 10/25/18 04:00 98.3 103 20 142/70 (94) 99 10/25/18 04:00 Nasal Cannula 3.0 10/25/18 04:00 104 10/25/18 03:09 105 20 100 Nasal Cannula 2.0 28 10/25/18 02:56 103 20 99 Nasal Cannula 2.0 28 10/25/18 00:00 98.8 108 20 131/70 (90) 97 10/25/18 00:00 Nasal Cannula 3.0 10/25/18 00:00 104 10/24/18 23:15 103 20 99 Nasal Cannula 2.0 28 10/24/18 23:00 102 20 97 Nasal Cannula 2.0 28 10/24/18 20:00 Nasal Cannula 3.0 10/24/18 20:00 98.8 108 20 137/69 (91) 97 10/24/18 20:00 106 10/24/18 19:25 114 20 95 Nasal Cannula 2.0 28 10/24/18 19:08 109 20 96 Nasal Cannula 2.0 28 10/24/18 19:07 Nasal Cannula 2.0 28 10/24/18 19:07 96 Nasal Cannula 2.0 28 10/24/18 16:00 98.4 106 20 149/77 (101) 97 10/24/18 16:00 Nasal Cannula 3.0 10/24/18 15:47 106 10/24/18 15:17 105 18 100 Nasal Cannula 2.0 28 10/24/18 15:07 107 17 96 Nasal Cannula 2.0 28 I&O Intake and Output 10/24/18 10/25/18 19:00 07:00 Intake Total 600 ml 895 ml Output Total 2400 ml 1300 ml Balance -1800 ml -405 ml IV Total 600 ml 895 ml Output Urine Total 1600 ml 400 ml Stool Total 200 ml 200 ml Gastric Drainage Total 600 ml 700 ml Cardiovascular: RSR Respiratory: decreased breath sounds Abdomen: soft, non-tender, present bowel sounds, non-distended Extremities: no cyanosis Laboratory Tests Test 10/25/18 09:47 White Blood Count 9.4 K/UL (4.8-10.8) Red Blood Count 2.81 M/UL (4.20-5.40) L Hemoglobin 8.6 G/DL (12.0-16.0) L Hematocrit 27.1 % (37.0-47.0) L Mean Corpuscular Volume 96 FL (80-99) Mean Corpuscular Hemoglobin 30.5 PG (27.0-31.0) Mean Corpuscular Hemoglobin Concent 31.6 G/DL (32.0-36.0) L Red Cell Distribution Width 23.0 % (11.6-14.8) H Platelet Count 102 K/UL (150-450) L Mean Platelet Volume 6.3 FL (6.5-10.1) L Neutrophils (%) (Auto) 72.4 % (45.0-75.0) Lymphocytes (%) (Auto) 14.9 % (20.0-45.0) L Monocytes (%) (Auto) 7.3 % (1.0-10.0) Eosinophils (%) (Auto) 3.9 % (0.0-3.0) H Basophils (%) (Auto) 1.5 % (0.0-2.0) Sodium Level 142 MMOL/L (136-145) Potassium Level 3.2 MMOL/L (3.5-5.1) L Chloride Level 108 MMOL/L (98-107) H Carbon Dioxide Level 27 MMOL/L (21-32) Anion Gap 8 mmol/L (5-15) Blood Urea Nitrogen 10 mg/dL (7-18) Creatinine 1.1 MG/DL (0.55-1.30) Estimat Glomerular Filtration Rate 51.0 mL/min (>60) Glucose Level 176 MG/DL (74-106) H Calcium Level 9.7 MG/DL (8.5-10.1) Magnesium Level 1.4 MG/DL (1.8-2.4) L Assessment Additional Comments DAILY ESTIMATED NEEDS: Needs based on Sepsis, obesity, DM 24-28, 64kg adj kcals/kg 6000-2785 total kcals 1.2-2, 64kg adj g protein/kg 77-128 g total protein Fluid per MD NUTRITION DIAGNOSIS: 1) Swallowing difficulty r/t respiratory status as evidenced by pt is now extubated, off pressors, TRAIN PLANNER w/ rec to continue NPO, nonoral feedings held at this time for gastric secretions, w/ NGT to LIS. 2) Altered nutrition related lab values r/t critical care. septic shock and multi organ failure as evidenced by critically elev WBC-> now wnl, elev creat kinase (3542), elev LFT's, elev T bili (6.9) elev phos (5.2 -> wnl), elev Creat-> now wnl, elev ammonia (62-> 92), elev BNP (6076->658), elev A1C (11.0), elev FBGs (176 194).` CURRENT DIET:NPO PO DIET RECOMMENDATIONS: WHEN SAFE FOR PO-> CCHO LOW, CARDIAC/ texture per TRAIN PLANNER ENTERAL NUTRITION RECOMMENDATIONS: Glucerna 1.2 @ 55ml/hr x 24 hrs to provide 1320ml, 1584kcal, 79g prot, 1063ml free water * Once able to feed via GI, resume TF of Glucerna 1.2 @ 15ml/hr x 6-8 hrs * Advance 10ml q 4-6 hrs as tolerated to goal * HOB over 30 degrees/ water flush per MD PARENTERAL NUTRITION RECOMMENDATIONS: D/AA Rate: 67 IL Rate: 8 Total Rate: 75 Volume: 1800 % Dextrose: 15 % AA: 5.0 Energy (kcals/kg): 1535 Protein (g/kg protein): 80 Nonprotein KCALS: 1204 GIR (mg CHO/kg/min): 2.6 % Fat KCALS: 25 NCP: N Ratio: 94 TPN Comment: * REC TPN DUE TO ANTICIPATED PROLONGED NPO STATUS- DAY 9 NPO TODAY * D15% AA 5.0% @ 67ml/hr + IL20% @ 8ml/hr -> all 3:1, total of 75ml/hr * TPN @ goal will provide 100% est kcal/prot needs * Rec insulin in TPN Initiate TPN SLOWLY @ 15ml/hr 6 hrs, advance 10ml q 4-6 hrs as tolerated to goal rate ADDITIONAL RECOMMENDATIONS: * CALIBRATED BED SCALE WTS * REC TPN- NPO DAY 9 TODAY, STILL W/ NGT TO LIS + OUTPUT * Monitor lytes daily, replete as needed (low K and mag) * Monitor BGs closely w/ TPN- rec insulin in TPN . Plan Problems: (1) Multiple injuries due to trauma (2) Sepsis Assessment & Plan: Labs noted lactic acidosis improved with resuscitation CT findings: Limited assessment of the GI tract, due to lack of enteric contrast administration. Exam is also limited due to patient motion artifact and lack of IV contrast administration Evidence of hepatic cirrhosis Small amount of ascites, likely related to the above Surgically absent gallbladder Bilateral basilar pulmonary parenchymal atelectatic changes and possible patchy consolidation Minimal edema of the bilateral flank subcutaneous fat Other findings as noted, including degenerative spondylosis, right hepatic lobe capsular calcification, Quiroz catheter has made a great improvement. denies abd pain. labs improved. decompensated liver cirrhosis LFT's abnormal leukocytosis overall improved but prognosis still guarded Limited assessment of the GI tract, due to lack of enteric contrast administration Abdominal ascites, increased in extent since prior study Increased edema of the subcutaneous fat, since previous study Hepatic surface nodularity, consistent with cirrhosis, also previously reported Borderline splenomegaly Bilateral basilar pulmonary patchy consolidation and atelectasis as well as some congestion. Findings as noted, including degenerative spondylosis, PICC, Quiroz catheter, rectal tube, nasogastric tube CT chest noted ng tube removed start diet -iv fluids -iv abx -trend labs will follow with recs thank you (3) Liver cirrhosis Josh Samuel Oct 25, 2018 13:50
--- NOTE | 2018-10-25 14:44 | Nephrology Progress Note ---
Assessment/Plan Problem List: (1) JONNATHAN (acute kidney injury) Assessment: resolving (2) Shock liver (3) Septic shock (4) Respiratory disorder with ventilator dependence Assessment - Acute Oliguric Renal Failure Cr down to 1.1 - Respiratory disorder with s/p mechanical ventilator - Septic shock , Leukocytosis resolved - Pneumonia - Liver cirrhosis - Obese - Anemia . Plan mag IV as needed transfused 2 units previously down on IV fluid K and Phos IV as needed Hemodynamic support Pulmunary support Monitor renal parameters avoid nephrotoxics as best as possible per orders discussed with RN Subjective ROS Limited/Unobtainable: No Constitutional: Reports: malaise, weakness Objective Objective Last 24 Hour Vital Signs Date Time Temp Pulse Resp B/P (MAP) Pulse Ox O2 Delivery O2 Flow Rate FiO2 10/25/18 12:00 Nasal Cannula 3.0 10/25/18 12:00 97.9 104 18 144/73 (96) 98 10/25/18 11:53 103 20 100 Nasal Cannula 2.0 28 10/25/18 11:43 103 20 98 Nasal Cannula 2.0 28 10/25/18 08:58 103 10/25/18 08:00 Nasal Cannula 3.0 10/25/18 08:00 97.7 103 22 131/77 (95) 99 10/25/18 07:41 104 10/25/18 07:13 100 20 99 Nasal Cannula 2.0 28 10/25/18 07:03 105 20 99 Nasal Cannula 2.0 28 10/25/18 07:02 99 Nasal Cannula 2.0 28 10/25/18 07:02 Nasal Cannula 2.0 28 10/25/18 04:00 98.3 103 20 142/70 (94) 99 10/25/18 04:00 Nasal Cannula 3.0 10/25/18 04:00 104 10/25/18 03:09 105 20 100 Nasal Cannula 2.0 28 10/25/18 02:56 103 20 99 Nasal Cannula 2.0 28 10/25/18 00:00 98.8 108 20 131/70 (90) 97 10/25/18 00:00 Nasal Cannula 3.0 10/25/18 00:00 104 10/24/18 23:15 103 20 99 Nasal Cannula 2.0 28 10/24/18 23:00 102 20 97 Nasal Cannula 2.0 28 10/24/18 20:00 Nasal Cannula 3.0 10/24/18 20:00 98.8 108 20 137/69 (91) 97 10/24/18 20:00 106 10/24/18 19:25 114 20 95 Nasal Cannula 2.0 28 10/24/18 19:08 109 20 96 Nasal Cannula 2.0 28 10/24/18 19:07 Nasal Cannula 2.0 28 10/24/18 19:07 96 Nasal Cannula 2.0 28 10/24/18 16:00 98.4 106 20 149/77 (101) 97 10/24/18 16:00 Nasal Cannula 3.0 10/24/18 15:47 106 10/24/18 15:17 105 18 100 Nasal Cannula 2.0 28 10/24/18 15:07 107 17 96 Nasal Cannula 2.0 28 Intake and Output 10/24/18 10/25/18 19:00 07:00 Intake Total 600 ml 895 ml Output Total 2400 ml 1300 ml Balance -1800 ml -405 ml IV Total 600 ml 895 ml Output Urine Total 1600 ml 400 ml Stool Total 200 ml 200 ml Gastric Drainage Total 600 ml 700 ml Laboratory Tests 10/25/18 09:47: White Blood Count 9.4, Red Blood Count 2.81L, Hemoglobin 8.6L, Hematocrit 27.1L , Mean Corpuscular Volume 96, Mean Corpuscular Hemoglobin 30.5, Mean Corpuscular Hemoglobin Concent 31.6L, Red Cell Distribution Width 23.0H, Platelet Count 102L, Mean Platelet Volume 6.3L, Neutrophils (%) (Auto) 72.4, Lymphocytes (%) (Auto) 14.9L, Monocytes (%) (Auto) 7.3, Eosinophils (%) (Auto) 3.9H, Basophils (%) (Auto) 1.5, Sodium Level 142, Potassium Level 3.2L, Chloride Level 108H, Carbon Dioxide Level 27, Anion Gap 8, Blood Urea Nitrogen 10, Creatinine 1.1, Estimat Glomerular Filtration Rate 51.0, Glucose Level 176H , Calcium Level 9.7, Magnesium Level 1.4L Height (Feet): 5 Height (Inches): 1.00 Weight (Pounds): 250 General Appearance: no apparent distress Cardiovascular: bradycardia Respiratory/Chest: decreased breath sounds Abdomen: distended Objective NO CHANGE Alex Cueto MD Oct 25, 2018 14:44
--- NOTE | 2018-10-25 15:20 | Pulmonology Progress Note ---
Assessment/Plan Assessment/Plan ASSESSMENT: The patient is a 58-year-old female with a history of obesity, diabetes, hypertension, hyperlipidemia, and sciatica with chronic low back pain , DDD/DJD, presenting after a mechanical fall with altered mental status and confusion with likely sepsis and multisystem organ failure. PROBLEM LIST: 1. VDRF, EXTUBATED 10/16/18 2. Sepsis 3. Shock, hypovolemic and distributive. 4. Multisystem organ failure. 5. Lactic acidosis. 6. Anion gap metabolic acidosis. 7. JONNATHAN - BETTER 7. Abnormal LFTs, likely shock liver. 8. Abnormal troponin, likely demand ischemia. 9. Elevated D-dimer and PASP concerning for an acute PE 10. Obesity. 11. Diabetes. 12. Hypertension. 13. Chronic low back pain and sciatica. 14. Anemia/FOBT + 15. Thrombocytopenia 16. AFcRVR now in NSR 17. HyperNa 18. Herpes labialis TREATMENT PLAN: 1. Optimize pulmonary hygiene/mobilize as tolerated 2. Titrate down FiO2 to keep SaO2 < 90% 3. Observe off Abx per ID. On Acyclovir for herpes labialis 4. IV lasix, PRN albumin 6. SSI, monitor BS 7. Follow up cards recs 8. GI and surgery recs, PRN para, NGT out, diet advanced, TPN ordered, ENDOSCOPY ?, trend LFT's 9. DVT prophylaxis: SCD 10. FC, discuss GOC, consider palliative care eval Subjective Allergies: Coded Allergies: No Known Allergies (Unverified , 05/06/18) Subjective AFVSS O2 needs stable Surgery removed NGT, started diet, TPN ordered no cough no SOB no F/C Objective Last 24 Hour Vital Signs Date Time Temp Pulse Resp B/P (MAP) Pulse Ox O2 Delivery O2 Flow Rate FiO2 10/25/18 14:00 Nasal Cannula 3.0 10/25/18 12:00 Nasal Cannula 3.0 10/25/18 12:00 97.9 104 18 144/73 (96) 98 10/25/18 11:53 103 20 100 Nasal Cannula 2.0 28 10/25/18 11:43 103 20 98 Nasal Cannula 2.0 28 10/25/18 11:37 103 10/25/18 08:58 103 10/25/18 08:00 Nasal Cannula 3.0 10/25/18 08:00 97.7 103 22 131/77 (95) 99 10/25/18 07:41 104 10/25/18 07:13 100 20 99 Nasal Cannula 2.0 28 10/25/18 07:03 105 20 99 Nasal Cannula 2.0 28 10/25/18 07:02 99 Nasal Cannula 2.0 28 10/25/18 07:02 Nasal Cannula 2.0 28 10/25/18 04:00 98.3 103 20 142/70 (94) 99 10/25/18 04:00 Nasal Cannula 3.0 10/25/18 04:00 104 10/25/18 03:09 105 20 100 Nasal Cannula 2.0 28 10/25/18 02:56 103 20 99 Nasal Cannula 2.0 28 10/25/18 00:00 98.8 108 20 131/70 (90) 97 10/25/18 00:00 Nasal Cannula 3.0 10/25/18 00:00 104 10/24/18 23:15 103 20 99 Nasal Cannula 2.0 28 10/24/18 23:00 102 20 97 Nasal Cannula 2.0 28 10/24/18 20:00 Nasal Cannula 3.0 10/24/18 20:00 98.8 108 20 137/69 (91) 97 10/24/18 20:00 106 10/24/18 19:25 114 20 95 Nasal Cannula 2.0 28 10/24/18 19:08 109 20 96 Nasal Cannula 2.0 28 10/24/18 19:07 Nasal Cannula 2.0 28 10/24/18 19:07 96 Nasal Cannula 2.0 28 10/24/18 16:00 98.4 106 20 149/77 (101) 97 10/24/18 16:00 Nasal Cannula 3.0 10/24/18 15:47 106 10/24/18 15:17 105 18 100 Nasal Cannula 2.0 28 Intake and Output 10/24/18 10/25/18 19:00 07:00 Intake Total 600 ml 895 ml Output Total 2400 ml 1300 ml Balance -1800 ml -405 ml IV Total 600 ml 895 ml Output Urine Total 1600 ml 400 ml Stool Total 200 ml 200 ml Gastric Drainage Total 600 ml 700 ml General Appearance: no acute distress, cachetic HEENT: normocephalic, atraumatic, anicteric, mucous membranes moist Respiratory/Chest: chest wall non-tender, lungs clear, normal breath sounds, no respiratory distress, no accessory muscle use Cardiovascular: normal peripheral pulses, normal rate, regular rhythm Abdomen: normal bowel sounds, soft, non tender, no organomegaly, non distended , no mass Extremities: no cyanosis, no clubbing, other - 1+ MAREK Laboratory Tests 10/25/18 09:47: White Blood Count 9.4, Red Blood Count 2.81L, Hemoglobin 8.6L, Hematocrit 27.1L , Mean Corpuscular Volume 96, Mean Corpuscular Hemoglobin 30.5, Mean Corpuscular Hemoglobin Concent 31.6L, Red Cell Distribution Width 23.0H, Platelet Count 102L, Mean Platelet Volume 6.3L, Neutrophils (%) (Auto) 72.4, Lymphocytes (%) (Auto) 14.9L, Monocytes (%) (Auto) 7.3, Eosinophils (%) (Auto) 3.9H, Basophils (%) (Auto) 1.5, Sodium Level 142, Potassium Level 3.2L, Chloride Level 108H, Carbon Dioxide Level 27, Anion Gap 8, Blood Urea Nitrogen 10, Creatinine 1.1, Estimat Glomerular Filtration Rate 51.0, Glucose Level 176H , Calcium Level 9.7, Magnesium Level 1.4L Current Medications Medications (Trade) Dose Ordered Sig/Patricia Route PRN Reason Start Time Stop Time Status Last Admin Dose Admin Acyclovir (Zovirax) 400 mg EVERY 8 HOURS ORAL 10/22/18 10:15 11/21/18 10:14 10/25/18 13:27 Albuterol/ Ipratropium (Albuterol/ Ipratropium) 3 ml Q4HRT HHN 10/23/18 03:00 10/28/18 02:59 10/25/18 11:43 Chlorhexidine Gluconate (Nguyen-Hex 2%) 1 applic DAILY@2000 TOPIC 10/17/18 20:00 11/09/18 19:59 10/24/18 19:59 Dextrose 1,000 ml @ 75 mls/hr [id number] IV 10/19/18 13:30 11/18/18 13:29 10/25/18 05:05 Dextrose (Dextrose 50%) 25 ml Q30M PRN IV Hypoglycemia 10/17/18 14:45 11/10/18 13:44 Dextrose (Dextrose 50%) 50 ml Q30M PRN IV Hypoglycemia 10/17/18 14:45 11/10/18 13:44 Digoxin (Lanoxin) 0.125 mg QOD NG 10/19/18 09:00 11/15/18 08:59 10/25/18 08:58 Diphenhydramine HCl (Benadryl) 25 mg Q6H PRN IVP Itching 10/17/18 14:30 11/08/18 14:29 Fat Emulsion Intravenous 192 ml/Amino Acids/ Electrolytes/ Dextrose 1,800 ml @ 75 mls/hr Q24H IV 10/26/18 20:00 11/25/18 19:59 Furosemide (Lasix) 40 mg DAILY IV 10/23/18 09:45 11/22/18 09:44 10/25/18 08:58 Insulin Aspart (NovoLOG) BEFORE MEALS AND HS SUBQ 10/17/18 16:30 11/10/18 16:29 10/25/18 11:38 Lactulose (Cephulac) 30 gm THREE TIMES A DAY NG 10/17/18 18:00 11/12/18 17:59 10/25/18 12:03 Magnesium Sulfate 100 ml @ 100 mls/hr Q1H IVPB 10/25/18 11:45 10/25/18 15:44 10/25/18 14:44 Metoclopramide HCl (Reglan) 5 mg Q6H IVP 10/17/18 17:30 11/13/18 11:29 10/25/18 10:58 Midazolam HCl (Versed 2mg/2ml vial) 1 mg Q2H PRN IVP For Anxiety 10/17/18 14:30 11/11/18 14:29 Pantoprazole (Protonix) 40 mg EVERY 12 HOURS IVP 10/17/18 21:00 11/09/18 20:59 10/25/18 08:57 Phytonadione (Vitamin K) 10 mg QWEEK SUBQ 11/02/18 09:00 12/02/18 08:59 Rifaximin (Xifaxan) 550 mg EVERY 12 HOURS ORAL 10/17/18 21:00 10/26/18 20:59 10/25/18 08:58 Spironolactone (Aldactone) 25 mg DAILY ORAL 10/23/18 09:45 11/22/18 09:44 10/25/18 08:58 Renato Delarosa MD Oct 25, 2018 15:20
--- NOTE | 2018-10-25 15:40 | NUR ---
ST NOTE: SWALLOW/SPEECH/LANGUAGE/COGNITION STATUS: CHART REVIEWED. PER MD, ROMANA SHEEHAN TO START THE DIET. NGT REMOVED. CURRENTLY, PT IS ON REGULAR WITH THIN LIQUID DIET. PT SEEN AT BEDSIDE IN PM. IS AT BEDSIDE. PT WITH NC(3L), OXYGEN LEVEL: 95-96, HEART RATE: 102, RR: 18-20. PER PT, FEELING BETTER. GIVEN PO TRIALS(LATE LUNCH TRAY), JELLO, NECTAR THICK(ALMOST 3 OZ) AND PUREE(MASHED POTATOES) VIA TSP. MILDLY INCREASED ORAL TRANSIT TIME AND OROPHARYNGEAL TRANSIT TIME, FAIR LARYNGEAL ELEVATION, REQUESTED PT FOR ADDITIONAL SWALLOWS, NO OVERT S/S OF ASPIRATION. PT REFUSED MASTICATED SOLID. HAS HIGH RISK FOR ASPIRATION. RECOMMENDATIONS: 1. FOR QUALITY OF LIFE, CONTINUE ORAL DIET CHANGED DIET TO LOW FAT/CHOLESTEROL AND CCHO(LOW) MOIST PUREE WITH NECTAR THICK LIQUID DIET. 2. STRICT ASPIRATION/REFLUX PRECAUTIONS WITH 1TO1 FEEDING. 3. CONTINUE SKILLED ST SERVICE. D/W PT, PT'S , RNYOSELYN AND JORGE PEREZ (PER RD, PT ALSO SHOULD BE ON CCHO(LOW) DIET). POSTED ASPIRATION/REFLUX PRECAUTIONS SIGN.
--- NOTE | 2018-10-25 15:43 | Cardiac Electrophysiology PN ---
Assessment/Plan Assessment/Plan 1. Atrial fib with RVR. Off Beta janet or CA janet for hypotension. On Dig 0.125 qod. In SR Off Amiodarone for high LFTs and Bilirubin 7.3 2. S/P Septic shock. On broad spectrum IV antibiotic. 3. Troponin leak. The levels are flat and likely due to this patient's sepsis and septic shock. Her echocardiogram showed ejection fraction 60% to 65% and EKG showed no acute ischemic changes. 4. Nonsustained VT. Keep off Amio. EF 65% 5. Diabetes. 6. Renal failure. 7. Morbid obesity. 8. Dysphagia, NG removed. Feeding started 9. S/P Respiratory failure, Extubated 10. Cirrhosis, high Bilirubin and ascites. On Lasix 40 iv daily and Aldactone 25 daily DW RN Subjective Subjective In restraints. NG removed. at bedside. In SR no CP or SOB. Objective Last 24 Hour Vital Signs Date Time Temp Pulse Resp B/P (MAP) Pulse Ox O2 Delivery O2 Flow Rate FiO2 10/25/18 14:00 Nasal Cannula 3.0 10/25/18 12:00 Nasal Cannula 3.0 10/25/18 12:00 97.9 104 18 144/73 (96) 98 10/25/18 11:53 103 20 100 Nasal Cannula 2.0 28 10/25/18 11:43 103 20 98 Nasal Cannula 2.0 28 10/25/18 11:37 103 10/25/18 08:58 103 10/25/18 08:00 Nasal Cannula 3.0 10/25/18 08:00 97.7 103 22 131/77 (95) 99 10/25/18 07:41 104 10/25/18 07:13 100 20 99 Nasal Cannula 2.0 28 10/25/18 07:03 105 20 99 Nasal Cannula 2.0 28 10/25/18 07:02 99 Nasal Cannula 2.0 28 10/25/18 07:02 Nasal Cannula 2.0 28 10/25/18 04:00 98.3 103 20 142/70 (94) 99 10/25/18 04:00 Nasal Cannula 3.0 10/25/18 04:00 104 10/25/18 03:09 105 20 100 Nasal Cannula 2.0 28 10/25/18 02:56 103 20 99 Nasal Cannula 2.0 28 10/25/18 00:00 98.8 108 20 131/70 (90) 97 10/25/18 00:00 Nasal Cannula 3.0 10/25/18 00:00 104 10/24/18 23:15 103 20 99 Nasal Cannula 2.0 28 10/24/18 23:00 102 20 97 Nasal Cannula 2.0 28 10/24/18 20:00 Nasal Cannula 3.0 10/24/18 20:00 98.8 108 20 137/69 (91) 97 10/24/18 20:00 106 10/24/18 19:25 114 20 95 Nasal Cannula 2.0 28 10/24/18 19:08 109 20 96 Nasal Cannula 2.0 28 10/24/18 19:07 Nasal Cannula 2.0 28 10/24/18 19:07 96 Nasal Cannula 2.0 28 10/24/18 16:00 98.4 106 20 149/77 (101) 97 10/24/18 16:00 Nasal Cannula 3.0 10/24/18 15:47 106 Intake and Output 10/24/18 10/25/18 18:59 06:59 Intake Total 675 ml 895 ml Output Total 2400 ml 1300 ml Balance -1725 ml -405 ml IV Total 675 ml 895 ml Output Urine Total 1600 ml 400 ml Stool Total 200 ml 200 ml Gastric Drainage Total 600 ml 700 ml Laboratory Tests Test 10/25/18 09:47 White Blood Count 9.4 K/UL (4.8-10.8) Red Blood Count 2.81 M/UL (4.20-5.40) L Hemoglobin 8.6 G/DL (12.0-16.0) L Hematocrit 27.1 % (37.0-47.0) L Mean Corpuscular Volume 96 FL (80-99) Mean Corpuscular Hemoglobin 30.5 PG (27.0-31.0) Mean Corpuscular Hemoglobin Concent 31.6 G/DL (32.0-36.0) L Red Cell Distribution Width 23.0 % (11.6-14.8) H Platelet Count 102 K/UL (150-450) L Mean Platelet Volume 6.3 FL (6.5-10.1) L Neutrophils (%) (Auto) 72.4 % (45.0-75.0) Lymphocytes (%) (Auto) 14.9 % (20.0-45.0) L Monocytes (%) (Auto) 7.3 % (1.0-10.0) Eosinophils (%) (Auto) 3.9 % (0.0-3.0) H Basophils (%) (Auto) 1.5 % (0.0-2.0) Sodium Level 142 MMOL/L (136-145) Potassium Level 3.2 MMOL/L (3.5-5.1) L Chloride Level 108 MMOL/L (98-107) H Carbon Dioxide Level 27 MMOL/L (21-32) Anion Gap 8 mmol/L (5-15) Blood Urea Nitrogen 10 mg/dL (7-18) Creatinine 1.1 MG/DL (0.55-1.30) Estimat Glomerular Filtration Rate 51.0 mL/min (>60) Glucose Level 176 MG/DL (74-106) H Calcium Level 9.7 MG/DL (8.5-10.1) Magnesium Level 1.4 MG/DL (1.8-2.4) L Objective HEAD AND NECK: No JVD. LUNGS: Coarse rhonchi. CARDIOVASCULAR: Regular S1, S2 with no gallop or murmur. ABDOMEN: Obese. EXTREMITIES: No pitting edema. Sean Montanez MD Oct 25, 2018 15:43
[2018-10-25 16:00] VITALS: BP 142/74
--- NOTE | 2018-10-25 16:45 | Diagnostic Imaging Report ---
Indications: Dysphagia Technique: Patient ingested multiple substances under the supervision of speech pathology. Video fluoroscopic recording performed. Total fluoroscopy time to 32.6 seconds. Total dose area product 0.04480 mGycm2 Total number of images-10 Comparison: none Findings: With ingestion of thin liquid barium, there is some delay in initiation of deglutition. There is early pooling in the vallecula. There is occasional trace supraglottic laryngeal penetration demonstrated. No shy aspiration. There is some residual seen in the vallecula after swallowing. With ingestion of nectar thick liquid barium, honey thick liquid barium, there is some delay in initiation of deglutition, some early pooling in the vallecula. No aspiration or penetration Impression: Positive for penetration of thin liquid barium. Negative for aspiration Please refer to speech pathology report for more detailed analysis
--- NOTE | 2018-10-25 19:20 | NUR ---
HAND-OFF: Report given to Beth Echeverria RN. Patient stable.
--- NOTE | 2018-10-25 19:21 | NUR ---
NURSE NOTES: Received bedside report from KARI Cortes.Patient stable,no c/o pain,no respiratory distress noted,A&Ox2 ST on electronic device monitor,tolerated N/C with 3 L/min well Sat O2 98-100%,rectal tube,f/cath for retention draining toward gravity,PICC line on LISA dressing changed on 10/23/18 running D5 water@75 ml/hr,family at bedside,bed secured,call light within a reach will continue to monitor.
[2018-10-25 20:00] VITALS: BP 124/67
--- NOTE | 2018-10-25 20:11 | NUR ---
HAND-OFF: Report given to KARI Mcclelland.Patient stable.
--- NOTE | 2018-10-25 20:15 | NUR ---
NURSE NOTES: PT'S FAMILY AT BEDSIDE. PATIENT DROWSY, ABLE TO COMMUNICATION, DENIED PAIN OR DISTRESS AT THIS TIME. RESPIRATION REGULAR,ON O2 2LMP VIA NC, ABDOMEN SOFT, ROUNDED, NON TENDER, RECTAL TUBE INTACT AND PATENT, BROWN SOLID LIQUID STOOL OUTED, F/C INTACT AND PATENT, LIGHT BA COLOR URINE OUTED, PICC LINE TO LEFT UPPER ARM, INTACT AND PATENT, ON D5W AT 75ML/HR VIA PICC LINE, MADE LOWER BED POSITION, PROVIDED CALL LIGHT WITHIN REACH, WILL CONTINUE TO MONITOR.
--- NOTE | 2018-10-25 20:37 | General Progress Note ---
Assessment/Plan Problem List: (1) Hypotension ICD Codes: I95.9 - Hypotension, unspecified SNOMED: 18827838 (2) Hyperglycemia ICD Codes: R73.9 - Hyperglycemia, unspecified SNOMED: 05893816 (3) Dyspnea ICD Codes: R06.00 - Dyspnea, unspecified SNOMED: 710501703 (4) Hypoxemia ICD Codes: R09.02 - Hypoxemia SNOMED: 640192661 (5) Contusion of left knee ICD Codes: S80.02XA - Contusion of left knee, initial encounter SNOMED: 05240188 (6) Sepsis ICD Codes: A41.9 - Sepsis, unspecified organism SNOMED: 56041160 (7) Septic shock ICD Codes: A41.9 - Sepsis, unspecified organism; R65.21 - Severe sepsis with septic shock SNOMED: 99576167 (8) Liver cirrhosis ICD Codes: K74.60 - Unspecified cirrhosis of liver SNOMED: 37594360 (9) Pneumonia ICD Codes: J18.9 - Pneumonia, unspecified organism SNOMED: 226168594 (10) Respiratory disorder with ventilator dependence ICD Codes: J98.9 - Respiratory disorder, unspecified; Z99.11 - Dependence on respirator [ventilator] status SNOMED: 89231590, 185607050 (11) Shock liver ICD Codes: K72.00 - Acute and subacute hepatic failure without coma SNOMED: 620420872 Status: unchanged Assessment/Plan still lethargic tpn poor prognosis encelphalopathy edema cihrrosis sepsis obesity morbid pna encephalopathy afebrile Subjective ROS Limited/Unobtainable: Yes Allergies: Coded Allergies: No Known Allergies (Unverified , 05/06/18) Objective Last 24 Hour Vital Signs Date Time Temp Pulse Resp B/P (MAP) Pulse Ox O2 Delivery O2 Flow Rate FiO2 10/25/18 19:49 105 20 97 Nasal Cannula 2.0 28 10/25/18 19:49 Nasal Cannula 2.0 28 10/25/18 19:48 97 Nasal Cannula 2.0 28 10/25/18 16:01 101 20 99 Nasal Cannula 2.0 28 10/25/18 16:00 Nasal Cannula 3.0 10/25/18 16:00 98.1 105 20 142/74 (96) 96 10/25/18 15:51 109 20 97 Nasal Cannula 2.0 28 10/25/18 15:10 106 10/25/18 14:00 Nasal Cannula 3.0 10/25/18 12:00 Nasal Cannula 3.0 10/25/18 12:00 97.9 104 18 144/73 (96) 98 10/25/18 11:53 103 20 100 Nasal Cannula 2.0 28 10/25/18 11:43 103 20 98 Nasal Cannula 2.0 28 10/25/18 11:37 103 10/25/18 08:58 103 10/25/18 08:00 Nasal Cannula 3.0 10/25/18 08:00 97.7 103 22 131/77 (95) 99 10/25/18 07:41 104 10/25/18 07:13 100 20 99 Nasal Cannula 2.0 28 10/25/18 07:03 105 20 99 Nasal Cannula 2.0 28 10/25/18 07:02 99 Nasal Cannula 2.0 28 10/25/18 07:02 Nasal Cannula 2.0 28 10/25/18 04:00 98.3 103 20 142/70 (94) 99 10/25/18 04:00 Nasal Cannula 3.0 10/25/18 04:00 104 10/25/18 03:09 105 20 100 Nasal Cannula 2.0 28 10/25/18 02:56 103 20 99 Nasal Cannula 2.0 28 10/25/18 00:00 98.8 108 20 131/70 (90) 97 10/25/18 00:00 Nasal Cannula 3.0 10/25/18 00:00 104 10/24/18 23:15 103 20 99 Nasal Cannula 2.0 28 10/24/18 23:00 102 20 97 Nasal Cannula 2.0 28 Intake and Output 10/24/18 10/25/18 18:59 06:59 Intake Total 675 ml 895 ml Output Total 2400 ml 1300 ml Balance -1725 ml -405 ml IV Total 675 ml 895 ml Output Urine Total 1600 ml 400 ml Stool Total 200 ml 200 ml Gastric Drainage Total 600 ml 700 ml Laboratory Tests 10/25/18 09:47: White Blood Count 9.4, Red Blood Count 2.81L, Hemoglobin 8.6L, Hematocrit 27.1L , Mean Corpuscular Volume 96, Mean Corpuscular Hemoglobin 30.5, Mean Corpuscular Hemoglobin Concent 31.6L, Red Cell Distribution Width 23.0H, Platelet Count 102L, Mean Platelet Volume 6.3L, Neutrophils (%) (Auto) 72.4, Lymphocytes (%) (Auto) 14.9L, Monocytes (%) (Auto) 7.3, Eosinophils (%) (Auto) 3.9H, Basophils (%) (Auto) 1.5, Sodium Level 142, Potassium Level 3.2L, Chloride Level 108H, Carbon Dioxide Level 27, Anion Gap 8, Blood Urea Nitrogen 10, Creatinine 1.1, Estimat Glomerular Filtration Rate 51.0, Glucose Level 176H , Calcium Level 9.7, Magnesium Level 1.4L Height (Feet): 5 Height (Inches): 1.00 Weight (Pounds): 250 Neck: normal alignment Cardiovascular: normal rate Respiratory/Chest: lungs clear Abdomen: soft Michael Kelley MD Oct 25, 2018 20:37
--- NOTE | 2018-10-25 20:45 | General Progress Note ---
Assessment/Plan Assessment/Plan Assessment and Recs: # Leukocytosis/Elevated white blood cell count, unspecified likely related to underlying stress reaction, or underlying infection --> have reviewed peripheral smear and bandemia/neutrophilia noted --> continue antibiotics if they have been started by ID team (on zosyn at this time) --> monitor for resolution -->WBC trend: 14-->10-->15-->12-->11-->10-->8.6 # Thrombocytopenia - potential causes multifactorial, evaluate liver and viral etiologies to begin, also could be related to underlying medications patient has received. Hx of cirrhosis in the past noted on us --> Hep panel and HIV negative --> CT a/p show cirrhosis as well as us --> Peripheral smear ordered to evaluate for blasts /schistocytes is negative --> abx and other meds have been reviewed --> ok for ppx if plt >50k w/ either heparin or lovenox --> Transfuse if Plt < 20k and fever, or if Plt < 10k without fever --> HIT negative, hold off heparin -->Plt trend : 54-->92-->106-->113 # Anemia of iron deficiency as noted with low % sat and tibc elevated --> Anemia workup has been reviewed --> No evidence of hemolysis is noted, peripheral smear has been reviewed. --> Hgb goal >7. Transfuse prn. --> Iron IV X 5 days already given --> Medications have been reviewed # CEA of 10.5 --> Ct of abdomen/pelvis reviewed and is negative # Sepsis likely contributing to low plts --> on abx as needed # Shock, hypovolemic and distributive --> per id and pulm/cc care # Multisystem organ failure. # Lactic acidosis. # JONNATHAN. # Abnormal LFTs, likely shock liver. # Abnormal troponin, likely demand ischemia. # Obesity. # Respiratory failure on vent --> now extubated The timing of this note does not necessarily reflect the time of the patient was seen. Greatly appreciate consultation! Subjective Constitutional: Denies: no symptoms, chills, diaphoresis, fever, malaise, weakness, other HEENT: Denies: no symptoms, eye pain, blurred vision, tearing, double vision, ear pain, ear discharge, nose pain, nose congestion, throat pain, throat swelling, mouth pain, mouth swelling, other Respiratory: Denies: no symptoms, cough, orthopnea, shortness of breath, SOB with excertion, SOB at rest, sputum, stridor, wheezing, other Gastrointestinal/Abdominal: Denies: no symptoms, abdomen distended, abdominal pain, black stools, tarry stools, blood in stool, constipated, diarrhea, difficulty swallowing, nausea, poor appetite, poor fluid intake, rectal bleeding , vomiting, other Endocrine: Denies: no symptoms, excessive sweating, flushing, intolerance to cold, intolerance to heat, increased hunger, increased thirst, increased urine, unexplained weight gain, unexplained weight loss, other Allergies: Coded Allergies: No Known Allergies (Unverified , 05/06/18) Subjective 3: Pt was seen in ICU on Vent and off pressors, developed atrial fib, wbc trending down to 13, plt trending down to 60 10/14: remains in the icu, monitoring labs, plts stabilizing, remains critically ill, cea elev 10/15: In ICU on Vent and off pressors, plt 62, no events 10/16 wbc trending up at 14,plt low at 48,weaning well from vent. no acute events , family at bedside 10/17: plts remain low, no events, weaned off vent, no complaints, off pressors 10/18: seen by bedside, wbc trending up at 15, plt low at 50, no events, needs video swallow. NGT 10/19: wbc remains elevated, plt 54, no acute distress reported 10/21: seen by bedside, still with lots of NG tube output, wbc 12, plt trending up 10/22: awake, alert,has high NG tube residual, wbc 11, no events 10/23: comfortable, wbc trending down, plt trending up , no events 10/24: Seen by bedside, leukocytosis resolved, no events 10/25: awake, comfortable, Surgery removed NGT, no events Objective Last 24 Hour Vital Signs Date Time Temp Pulse Resp B/P (MAP) Pulse Ox O2 Delivery O2 Flow Rate FiO2 10/25/18 19:49 105 20 97 Nasal Cannula 2.0 28 10/25/18 19:49 Nasal Cannula 2.0 28 10/25/18 19:48 97 Nasal Cannula 2.0 28 10/25/18 16:01 101 20 99 Nasal Cannula 2.0 28 10/25/18 16:00 Nasal Cannula 3.0 10/25/18 16:00 98.1 105 20 142/74 (96) 96 10/25/18 15:51 109 20 97 Nasal Cannula 2.0 28 10/25/18 15:10 106 10/25/18 14:00 Nasal Cannula 3.0 10/25/18 12:00 Nasal Cannula 3.0 10/25/18 12:00 97.9 104 18 144/73 (96) 98 10/25/18 11:53 103 20 100 Nasal Cannula 2.0 28 10/25/18 11:43 103 20 98 Nasal Cannula 2.0 28 10/25/18 11:37 103 10/25/18 08:58 103 10/25/18 08:00 Nasal Cannula 3.0 10/25/18 08:00 97.7 103 22 131/77 (95) 99 10/25/18 07:41 104 10/25/18 07:13 100 20 99 Nasal Cannula 2.0 28 10/25/18 07:03 105 20 99 Nasal Cannula 2.0 28 10/25/18 07:02 99 Nasal Cannula 2.0 28 10/25/18 07:02 Nasal Cannula 2.0 28 10/25/18 04:00 98.3 103 20 142/70 (94) 99 10/25/18 04:00 Nasal Cannula 3.0 10/25/18 04:00 104 10/25/18 03:09 105 20 100 Nasal Cannula 2.0 28 10/25/18 02:56 103 20 99 Nasal Cannula 2.0 28 10/25/18 00:00 98.8 108 20 131/70 (90) 97 10/25/18 00:00 Nasal Cannula 3.0 10/25/18 00:00 104 10/24/18 23:15 103 20 99 Nasal Cannula 2.0 28 10/24/18 23:00 102 20 97 Nasal Cannula 2.0 28 Intake and Output 10/24/18 10/25/18 18:59 06:59 Intake Total 675 ml 895 ml Output Total 2400 ml 1300 ml Balance -1725 ml -405 ml IV Total 675 ml 895 ml Output Urine Total 1600 ml 400 ml Stool Total 200 ml 200 ml Gastric Drainage Total 600 ml 700 ml Laboratory Tests 10/25/18 09:47: White Blood Count 9.4, Red Blood Count 2.81L, Hemoglobin 8.6L, Hematocrit 27.1L , Mean Corpuscular Volume 96, Mean Corpuscular Hemoglobin 30.5, Mean Corpuscular Hemoglobin Concent 31.6L, Red Cell Distribution Width 23.0H, Platelet Count 102L, Mean Platelet Volume 6.3L, Neutrophils (%) (Auto) 72.4, Lymphocytes (%) (Auto) 14.9L, Monocytes (%) (Auto) 7.3, Eosinophils (%) (Auto) 3.9H, Basophils (%) (Auto) 1.5, Sodium Level 142, Potassium Level 3.2L, Chloride Level 108H, Carbon Dioxide Level 27, Anion Gap 8, Blood Urea Nitrogen 10, Creatinine 1.1, Estimat Glomerular Filtration Rate 51.0, Glucose Level 176H , Calcium Level 9.7, Magnesium Level 1.4L Height (Feet): 5 Height (Inches): 1.00 Weight (Pounds): 250 Objective PHYSICAL EXAMINATION: VITAL SIGNS: reviewed, saturating 98% on NC++, GENERAL: She is an obese female, confused. HEENT: Normocephalic and atraumatic. Oropharynx is clear with dry mucous membranes., NECK: Supple without lymphadenopathy or JVP. CHEST: Clear. HEART: Regular. ABDOMEN: Benign. EXTREMITIES: No cyanosis, clubbing, or edema. There are some ecchymoses in bilateral lower extremities. Kurtis Villagomez MD Oct 25, 2018 20:45
[2018-10-25] MEDS: Dyna-Hex 2% Top Sol 2oz TOPIC SCH (21:08)
--- NOTE | 2018-10-25 23:00 | NUR ---
NURSE NOTES: PATIENT ASLEEP STATUS, NO ACUTE DISTRESS NOTED AT THIS TIME.
[2018-10-26] VITALS: BP 120/70
--- NOTE | 2018-10-26 02:30 | NUR ---
NURSE NOTES: PATIENT AWOKE, DENIED PAIN OR DISTRESS AT THIS TIME, REPOSITIONED, ORAL CARE WAS DONE.
[2018-10-26] MEDS: Albuterol/Ipratropium 3ml neb HHN SCH ×6 (03:00→23:15)
[2018-10-26 04:00] VITALS: BP 137/71
--- NOTE | 2018-10-26 04:20 | NUR ---
NURSE NOTES: MORNING CARE WAS DONE, NO PAIN OR DISTRESS NOTED.
[2018-10-26] MEDS: Metoclopramide 10mg/2ml Inj IVP SCH ×4 (05:02→22:42)
[2018-10-26] MEDS: Acyclovir 200mg Cap ORAL SCH ×3 (05:54→22:42)
[2018-10-26] MEDS: NovoLOG Insulin Flexpen SUBQ SCH ×4 (06:02→20:22)
[2018-10-26 06:10] LABS: HEMATOCRIT 27.5 % (37.0-47.0); HEMOGLOBIN 8.8 G/DL (12.0-16.0); MEAN CORPUSCULAR VOLUME 96 FL (80-99); PLATELET COUNT 78 K/UL (150-450); RED BLOOD COUNT 2.86 M/UL (4.20-5.40); RED CELL DISTRIBUTION WIDTH 23.2 % (11.6-14.8); WHITE BLOOD COUNT 9.7 K/UL (4.8-10.8)
--- NOTE | 2018-10-26 06:30 | NUR ---
NURSE NOTES: NO ACUTE DISTRESS NOTED AT THIS SHIFT.
[2018-10-26 06:39] LABS: ALANINE AMINOTRANSFERASE 107 U/L (12-78); ALBUMIN 2.1 G/DL (3.4-5.0); ALBUMIN/GLOBULIN RATIO 0.6 (1.0-2.7); ALKALINE PHOSPHATASE 362 U/L (46-116); ANION GAP 6 mmol/L (5-15); ASPARTATE AMINO TRANSFERASE 86 U/L (15-37); BILIRUBIN,TOTAL 7.4 MG/DL (0.2-1.0); BLOOD UREA NITROGEN 12 mg/dL (7-18); CALCIUM 9.8 MG/DL (8.5-10.1); CARBON DIOXIDE 26 MMOL/L (21-32); CHLORIDE 108 MMOL/L (98-107); CREATININE 1.3 MG/DL (0.55-1.30); PHOSPHORUS 2.9 MG/DL (2.5-4.9); POTASSIUM 3.4 MMOL/L (3.5-5.1); SODIUM 140 MMOL/L (136-145)
[2018-10-26 06:51] LABS: BILIRUBIN,DIRECT 5.1 MG/DL (0.0-0.3)
--- NOTE | 2018-10-26 07:10 | NUR ---
HAND-OFF: Report given to KARI Carlos.
--- NOTE | 2018-10-26 07:11 | NUR ---
NURSE NOTES: Received patient from Aislinn Mcclelland RN. On 3L NC. In no respiratory distress. 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 PICC on LISA and asymptomatic. Bed in lowest position with side rails up. Will continue to follow plan of care.
[2018-10-26 08:00] VITALS: BP 125/69
[2018-10-26] MEDS: Pantoprazole Inj IVP SCH ×2 (08:56→20:20)
[2018-10-26] MEDS: Lactulose 20gm/30ml UDC NG SCH ×3 (08:56→17:21)
[2018-10-26] MEDS: Spironolactone 25mg tab ORAL SCH (08:57)
--- NOTE | 2018-10-26 10:25 | Infectious Diseases Prog Note ---
Assessment/Plan Assessment/Plan antibiotics : acyclovir, rifaximin A 1. lip herpes 2. cirrhosis 3. diabetes mellitus 4. renal failure resolved P 1. continue acyclovir 2. patient on rifaximin 3. will follow up cultures Subjective Constitutional: Denies: fever, chills Respiratory: Denies: shortness of breath, dry cough Gastrointestinal/Abdominal: Denies: nausea, vomiting, diarrhea Musculoskeletal: Denies: pain Allergies: Coded Allergies: No Known Allergies (Unverified , 05/06/18) Objective Vital Signs Last 24 Hour Vital Signs Date Time Temp Pulse Resp B/P (MAP) Pulse Ox O2 Delivery O2 Flow Rate FiO2 10/26/18 08:00 Nasal Cannula 2.0 10/26/18 07:24 103 18 100 Nasal Cannula 2.0 28 10/26/18 07:17 104 20 100 Nasal Cannula 2.0 28 10/26/18 07:17 100 Nasal Cannula 2.0 28 10/26/18 07:17 Nasal Cannula 2.0 28 10/26/18 04:23 102 20 100 Nasal Cannula 2.0 28 10/26/18 04:08 101 10/26/18 04:07 100 20 100 Nasal Cannula 2.0 28 10/26/18 04:00 Nasal Cannula 2.0 10/26/18 04:00 97.8 104 20 137/71 (93) 100 10/26/18 00:00 Nasal Cannula 2.0 10/26/18 00:00 97.9 106 20 120/70 (87) 96 10/25/18 23:39 106 10/25/18 23:21 104 20 100 Nasal Cannula 2.0 28 10/25/18 23:08 104 20 98 Nasal Cannula 2.0 28 10/25/18 20:00 Nasal Cannula 2.0 10/25/18 20:00 98.6 106 24 124/67 (86) 97 10/25/18 19:59 101 20 99 Nasal Cannula 2.0 28 10/25/18 19:49 105 20 97 Nasal Cannula 2.0 28 10/25/18 19:49 Nasal Cannula 2.0 28 10/25/18 19:48 97 Nasal Cannula 2.0 28 10/25/18 19:11 106 10/25/18 16:01 101 20 99 Nasal Cannula 2.0 28 10/25/18 16:00 Nasal Cannula 3.0 10/25/18 16:00 98.1 105 20 142/74 (96) 96 10/25/18 15:51 109 20 97 Nasal Cannula 2.0 28 10/25/18 15:10 106 10/25/18 14:00 Nasal Cannula 3.0 10/25/18 12:00 Nasal Cannula 3.0 10/25/18 12:00 97.9 104 18 144/73 (96) 98 10/25/18 11:53 103 20 100 Nasal Cannula 2.0 28 10/25/18 11:43 103 20 98 Nasal Cannula 2.0 28 10/25/18 11:37 103 Height (Feet): 5 Height (Inches): 1.00 Weight (Pounds): 236 HEENT: other - lip lesion on right lower lip Respiratory/Chest: lungs clear Cardiovascular: normal rate, regular rhythm, no gallop/murmur Abdomen: soft, non tender Extremities: other - + edema, left arm PICC Laboratory Tests Test 10/26/18 03:30 White Blood Count 9.7 K/UL (4.8-10.8) Red Blood Count 2.86 M/UL (4.20-5.40) L Hemoglobin 8.8 G/DL (12.0-16.0) L Hematocrit 27.5 % (37.0-47.0) L Mean Corpuscular Volume 96 FL (80-99) Mean Corpuscular Hemoglobin 30.6 PG (27.0-31.0) Mean Corpuscular Hemoglobin Concent 31.8 G/DL (32.0-36.0) L Red Cell Distribution Width 23.2 % (11.6-14.8) H Platelet Count 78 K/UL (150-450) L Mean Platelet Volume 5.3 FL (6.5-10.1) L Neutrophils (%) (Auto) % (45.0-75.0) Lymphocytes (%) (Auto) % (20.0-45.0) Monocytes (%) (Auto) % (1.0-10.0) Eosinophils (%) (Auto) % (0.0-3.0) Basophils (%) (Auto) % (0.0-2.0) Sodium Level 140 MMOL/L (136-145) Potassium Level 3.4 MMOL/L (3.5-5.1) L Chloride Level 108 MMOL/L (98-107) H Carbon Dioxide Level 26 MMOL/L (21-32) Anion Gap 6 mmol/L (5-15) Blood Urea Nitrogen 12 mg/dL (7-18) Creatinine 1.3 MG/DL (0.55-1.30) Estimat Glomerular Filtration Rate 42.1 mL/min (>60) Glucose Level 216 MG/DL (74-106) H Uric Acid 6.7 MG/DL (2.6-7.2) Calcium Level 9.8 MG/DL (8.5-10.1) Phosphorus Level 2.9 MG/DL (2.5-4.9) Magnesium Level 2.0 MG/DL (1.8-2.4) Total Bilirubin 7.4 MG/DL (0.2-1.0) H Direct Bilirubin 5.1 MG/DL (0.0-0.3) H Gamma Glutamyl Transpeptidase 267 U/L (5-85) H Aspartate Amino Transf (AST/SGOT) 86 U/L (15-37) H Alanine Aminotransferase (ALT/SGPT) 107 U/L (12-78) H Alkaline Phosphatase 362 U/L (46-116) H Total Protein 5.7 G/DL (6.4-8.2) L Albumin 2.1 G/DL (3.4-5.0) L Globulin 3.6 g/dL Albumin/Globulin Ratio 0.6 (1.0-2.7) L Current Medications Medications (Trade) Dose Ordered Sig/Patricia Route PRN Reason Start Time Stop Time Status Last Admin Dose Admin Acyclovir (Zovirax) 400 mg EVERY 8 HOURS ORAL 10/22/18 10:15 11/21/18 10:14 10/26/18 05:54 Albuterol/ Ipratropium (Albuterol/ Ipratropium) 3 ml Q4HRT HHN 10/23/18 03:00 10/28/18 02:59 10/26/18 07:17 Chlorhexidine Gluconate (Nguyen-Hex 2%) 1 applic DAILY@2000 TOPIC 10/17/18 20:00 11/09/18 19:59 10/25/18 21:08 Dextrose 1,000 ml @ 75 mls/hr [id number] IV 10/19/18 13:30 10/26/18 20:00 10/26/18 05:03 Dextrose (Dextrose 50%) 25 ml Q30M PRN IV Hypoglycemia 10/17/18 14:45 11/10/18 13:44 Dextrose (Dextrose 50%) 50 ml Q30M PRN IV Hypoglycemia 10/17/18 14:45 11/10/18 13:44 Digoxin (Lanoxin) 0.125 mg QOD NG 10/19/18 09:00 11/15/18 08:59 10/25/18 08:58 Diphenhydramine HCl (Benadryl) 25 mg Q6H PRN IVP Itching 10/17/18 14:30 11/08/18 14:29 Fat Emulsion Intravenous 192 ml/Amino Acids/ Electrolytes/ Dextrose 1,800 ml @ 75 mls/hr Q24H IV 10/26/18 20:00 11/25/18 19:59 Furosemide (Lasix) 40 mg DAILY IV 10/23/18 09:45 11/22/18 09:44 10/26/18 08:57 Insulin Aspart (NovoLOG) BEFORE MEALS AND HS SUBQ 10/17/18 16:30 11/10/18 16:29 10/26/18 06:02 Lactulose (Cephulac) 30 gm THREE TIMES A DAY NG 10/17/18 18:00 11/12/18 17:59 10/26/18 08:56 Metoclopramide HCl (Reglan) 5 mg Q6H IVP 10/17/18 17:30 11/13/18 11:29 10/26/18 05:02 Midazolam HCl (Versed 2mg/2ml vial) 1 mg Q2H PRN IVP For Anxiety 10/17/18 14:30 11/11/18 14:29 Pantoprazole (Protonix) 40 mg EVERY 12 HOURS IVP 10/17/18 21:00 11/09/18 20:59 10/26/18 08:56 Phytonadione (Vitamin K) 10 mg QWEEK SUBQ 11/02/18 09:00 12/02/18 08:59 Potassium Chloride 100 ml @ 100 mls/hr Q1H IVPB 10/26/18 09:30 10/26/18 13:29 10/26/18 08:56 Rifaximin (Xifaxan) 550 mg EVERY 12 HOURS ORAL 10/17/18 21:00 10/26/18 20:59 10/26/18 08:57 Spironolactone (Aldactone) 25 mg DAILY ORAL 10/23/18 09:45 11/22/18 09:44 10/26/18 08:57 Robert Gipson MD Oct 26, 2018 10:25
--- NOTE | 2018-10-26 11:18 | Cardiac Electrophysiology PN ---
Assessment/Plan Assessment/Plan 1. Atrial fib with RVR. Off Beta janet or CA janet for hypotension. On Dig 0.125 qod. In SR Off Amiodarone for high LFTs and Bilirubin 7.3 2. S/P Septic shock. On broad spectrum IV antibiotic. 3. Troponin leak. The levels are flat and likely due to this patient's sepsis and septic shock. Her echocardiogram showed ejection fraction 60% to 65% and EKG showed no acute ischemic changes. 4. Nonsustained VT. Keep off Amio. EF 65% 5. Diabetes. 6. Renal failure. 7. Morbid obesity. 8. Dysphagia, NG removed. Feeding started 9. S/P Respiratory failure, Extubated 10. Cirrhosis, high Bilirubin and ascites. On Lasix 40 iv daily and Aldactone 25 daily DW RN Subjective Subjective Off restraints. In mild Sinus tach with no CP or SOB. Able to eat now Objective Last 24 Hour Vital Signs Date Time Temp Pulse Resp B/P (MAP) Pulse Ox O2 Delivery O2 Flow Rate FiO2 10/26/18 08:00 Nasal Cannula 2.0 10/26/18 08:00 97.8 108 21 125/69 (87) 98 10/26/18 07:24 103 18 100 Nasal Cannula 2.0 28 10/26/18 07:17 104 20 100 Nasal Cannula 2.0 28 10/26/18 07:17 100 Nasal Cannula 2.0 28 10/26/18 07:17 Nasal Cannula 2.0 28 10/26/18 04:23 102 20 100 Nasal Cannula 2.0 28 10/26/18 04:08 101 10/26/18 04:07 100 20 100 Nasal Cannula 2.0 28 10/26/18 04:00 Nasal Cannula 2.0 10/26/18 04:00 97.8 104 20 137/71 (93) 100 10/26/18 00:00 Nasal Cannula 2.0 10/26/18 00:00 97.9 106 20 120/70 (87) 96 10/25/18 23:39 106 10/25/18 23:21 104 20 100 Nasal Cannula 2.0 28 10/25/18 23:08 104 20 98 Nasal Cannula 2.0 28 10/25/18 20:00 Nasal Cannula 2.0 10/25/18 20:00 98.6 106 24 124/67 (86) 97 10/25/18 19:59 101 20 99 Nasal Cannula 2.0 28 10/25/18 19:49 105 20 97 Nasal Cannula 2.0 28 10/25/18 19:49 Nasal Cannula 2.0 28 10/25/18 19:48 97 Nasal Cannula 2.0 28 10/25/18 19:11 106 10/25/18 16:01 101 20 99 Nasal Cannula 2.0 28 10/25/18 16:00 Nasal Cannula 3.0 10/25/18 16:00 98.1 105 20 142/74 (96) 96 10/25/18 15:51 109 20 97 Nasal Cannula 2.0 28 10/25/18 15:10 106 10/25/18 14:00 Nasal Cannula 3.0 10/25/18 12:00 Nasal Cannula 3.0 10/25/18 12:00 97.9 104 18 144/73 (96) 98 10/25/18 11:53 103 20 100 Nasal Cannula 2.0 28 10/25/18 11:43 103 20 98 Nasal Cannula 2.0 28 10/25/18 11:37 103 Intake and Output 10/25/18 10/26/18 19:00 07:00 Intake Total 1250 ml 1050 ml Output Total 2750 ml 780 ml Balance -1500 ml 270 ml Intake Oral 150 ml IV Total 1250 ml 900 ml Output Urine Total 1500 ml 420 ml Stool Total 550 ml 360 ml Gastric Drainage Total 700 ml Laboratory Tests Test 10/26/18 03:30 White Blood Count 9.7 K/UL (4.8-10.8) Red Blood Count 2.86 M/UL (4.20-5.40) L Hemoglobin 8.8 G/DL (12.0-16.0) L Hematocrit 27.5 % (37.0-47.0) L Mean Corpuscular Volume 96 FL (80-99) Mean Corpuscular Hemoglobin 30.6 PG (27.0-31.0) Mean Corpuscular Hemoglobin Concent 31.8 G/DL (32.0-36.0) L Red Cell Distribution Width 23.2 % (11.6-14.8) H Platelet Count 78 K/UL (150-450) L Mean Platelet Volume 5.3 FL (6.5-10.1) L Neutrophils (%) (Auto) % (45.0-75.0) Lymphocytes (%) (Auto) % (20.0-45.0) Monocytes (%) (Auto) % (1.0-10.0) Eosinophils (%) (Auto) % (0.0-3.0) Basophils (%) (Auto) % (0.0-2.0) Sodium Level 140 MMOL/L (136-145) Potassium Level 3.4 MMOL/L (3.5-5.1) L Chloride Level 108 MMOL/L (98-107) H Carbon Dioxide Level 26 MMOL/L (21-32) Anion Gap 6 mmol/L (5-15) Blood Urea Nitrogen 12 mg/dL (7-18) Creatinine 1.3 MG/DL (0.55-1.30) Estimat Glomerular Filtration Rate 42.1 mL/min (>60) Glucose Level 216 MG/DL (74-106) H Uric Acid 6.7 MG/DL (2.6-7.2) Calcium Level 9.8 MG/DL (8.5-10.1) Phosphorus Level 2.9 MG/DL (2.5-4.9) Magnesium Level 2.0 MG/DL (1.8-2.4) Total Bilirubin 7.4 MG/DL (0.2-1.0) H Direct Bilirubin 5.1 MG/DL (0.0-0.3) H Gamma Glutamyl Transpeptidase 267 U/L (5-85) H Aspartate Amino Transf (AST/SGOT) 86 U/L (15-37) H Alanine Aminotransferase (ALT/SGPT) 107 U/L (12-78) H Alkaline Phosphatase 362 U/L (46-116) H Total Protein 5.7 G/DL (6.4-8.2) L Albumin 2.1 G/DL (3.4-5.0) L Globulin 3.6 g/dL Albumin/Globulin Ratio 0.6 (1.0-2.7) L Objective HEAD AND NECK: No JVD. LUNGS: Coarse rhonchi. CARDIOVASCULAR: Regular S1, S2 with no gallop or murmur. ABDOMEN: Obese. EXTREMITIES: No pitting edema. Sean Montanez MD Oct 26, 2018 11:18
--- NOTE | 2018-10-26 11:22 | Surgery Progress Note ---
Surgery Progress Note Subjective Additional Comments Patient seen and examined at bedside today. NG tube was removed yesterday and patient started on diet. Patient tolerating the liquid portion of her diet well but only tolerated 10% of the solid portion stating she did not like the food. No nausea vomiting. Labs noted. Worsening LFTs. Objective Last 24 Hour Vital Signs Date Time Temp Pulse Resp B/P (MAP) Pulse Ox O2 Delivery O2 Flow Rate FiO2 10/26/18 08:00 Nasal Cannula 2.0 10/26/18 08:00 97.8 108 21 125/69 (87) 98 10/26/18 07:24 103 18 100 Nasal Cannula 2.0 28 10/26/18 07:17 104 20 100 Nasal Cannula 2.0 28 10/26/18 07:17 100 Nasal Cannula 2.0 28 10/26/18 07:17 Nasal Cannula 2.0 28 10/26/18 04:23 102 20 100 Nasal Cannula 2.0 28 10/26/18 04:08 101 10/26/18 04:07 100 20 100 Nasal Cannula 2.0 28 10/26/18 04:00 Nasal Cannula 2.0 10/26/18 04:00 97.8 104 20 137/71 (93) 100 10/26/18 00:00 Nasal Cannula 2.0 10/26/18 00:00 97.9 106 20 120/70 (87) 96 10/25/18 23:39 106 10/25/18 23:21 104 20 100 Nasal Cannula 2.0 28 10/25/18 23:08 104 20 98 Nasal Cannula 2.0 28 10/25/18 20:00 Nasal Cannula 2.0 10/25/18 20:00 98.6 106 24 124/67 (86) 97 10/25/18 19:59 101 20 99 Nasal Cannula 2.0 28 10/25/18 19:49 105 20 97 Nasal Cannula 2.0 28 10/25/18 19:49 Nasal Cannula 2.0 28 10/25/18 19:48 97 Nasal Cannula 2.0 28 10/25/18 19:11 106 10/25/18 16:01 101 20 99 Nasal Cannula 2.0 28 10/25/18 16:00 Nasal Cannula 3.0 10/25/18 16:00 98.1 105 20 142/74 (96) 96 10/25/18 15:51 109 20 97 Nasal Cannula 2.0 28 10/25/18 15:10 106 10/25/18 14:00 Nasal Cannula 3.0 10/25/18 12:00 Nasal Cannula 3.0 10/25/18 12:00 97.9 104 18 144/73 (96) 98 10/25/18 11:53 103 20 100 Nasal Cannula 2.0 28 10/25/18 11:43 103 20 98 Nasal Cannula 2.0 28 10/25/18 11:37 103 I&O Intake and Output 10/25/18 10/26/18 19:00 07:00 Intake Total 1250 ml 1050 ml Output Total 2750 ml 780 ml Balance -1500 ml 270 ml Intake Oral 150 ml IV Total 1250 ml 900 ml Output Urine Total 1500 ml 420 ml Stool Total 550 ml 360 ml Gastric Drainage Total 700 ml Dressing: other Wound: other Drains: none Cardiovascular: RSR Respiratory: clear, decreased breath sounds Abdomen: soft, non-tender, present bowel sounds, non-distended Extremities: no tenderness, no cyanosis Laboratory Tests Test 10/26/18 03:30 White Blood Count 9.7 K/UL (4.8-10.8) Red Blood Count 2.86 M/UL (4.20-5.40) L Hemoglobin 8.8 G/DL (12.0-16.0) L Hematocrit 27.5 % (37.0-47.0) L Mean Corpuscular Volume 96 FL (80-99) Mean Corpuscular Hemoglobin 30.6 PG (27.0-31.0) Mean Corpuscular Hemoglobin Concent 31.8 G/DL (32.0-36.0) L Red Cell Distribution Width 23.2 % (11.6-14.8) H Platelet Count 78 K/UL (150-450) L Mean Platelet Volume 5.3 FL (6.5-10.1) L Neutrophils (%) (Auto) % (45.0-75.0) Lymphocytes (%) (Auto) % (20.0-45.0) Monocytes (%) (Auto) % (1.0-10.0) Eosinophils (%) (Auto) % (0.0-3.0) Basophils (%) (Auto) % (0.0-2.0) Sodium Level 140 MMOL/L (136-145) Potassium Level 3.4 MMOL/L (3.5-5.1) L Chloride Level 108 MMOL/L (98-107) H Carbon Dioxide Level 26 MMOL/L (21-32) Anion Gap 6 mmol/L (5-15) Blood Urea Nitrogen 12 mg/dL (7-18) Creatinine 1.3 MG/DL (0.55-1.30) Estimat Glomerular Filtration Rate 42.1 mL/min (>60) Glucose Level 216 MG/DL (74-106) H Uric Acid 6.7 MG/DL (2.6-7.2) Calcium Level 9.8 MG/DL (8.5-10.1) Phosphorus Level 2.9 MG/DL (2.5-4.9) Magnesium Level 2.0 MG/DL (1.8-2.4) Total Bilirubin 7.4 MG/DL (0.2-1.0) H Direct Bilirubin 5.1 MG/DL (0.0-0.3) H Gamma Glutamyl Transpeptidase 267 U/L (5-85) H Aspartate Amino Transf (AST/SGOT) 86 U/L (15-37) H Alanine Aminotransferase (ALT/SGPT) 107 U/L (12-78) H Alkaline Phosphatase 362 U/L (46-116) H Total Protein 5.7 G/DL (6.4-8.2) L Albumin 2.1 G/DL (3.4-5.0) L Globulin 3.6 g/dL Albumin/Globulin Ratio 0.6 (1.0-2.7) L Plan Problems: (1) Multiple injuries due to trauma (2) Sepsis Assessment & Plan: Labs noted lactic acidosis improved with resuscitation CT findings: Limited assessment of the GI tract, due to lack of enteric contrast administration. Exam is also limited due to patient motion artifact and lack of IV contrast administration Evidence of hepatic cirrhosis Small amount of ascites, likely related to the above Surgically absent gallbladder Bilateral basilar pulmonary parenchymal atelectatic changes and possible patchy consolidation Minimal edema of the bilateral flank subcutaneous fat Other findings as noted, including degenerative spondylosis, right hepatic lobe capsular calcification, Quiroz catheter has made a great improvement. denies abd pain. labs improved. decompensated liver cirrhosis LFT's abnormal leukocytosis overall improved but prognosis still guarded Limited assessment of the GI tract, due to lack of enteric contrast administration Abdominal ascites, increased in extent since prior study Increased edema of the subcutaneous fat, since previous study Hepatic surface nodularity, consistent with cirrhosis, also previously reported Borderline splenomegaly Bilateral basilar pulmonary patchy consolidation and atelectasis as well as some congestion. Findings as noted, including degenerative spondylosis, PICC, Quiroz catheter, rectal tube, nasogastric tube CT chest noted ng tube removed Continue with p.o. diet. Hold on TPN. -iv fluids -iv abx -trend labs will follow with recs thank you (3) Liver cirrhosis Josh Samuel Oct 26, 2018 11:22
[2018-10-26 12:00] VITALS: BP 130/75
--- NOTE | 2018-10-26 12:30 | NUR ---
NURSE NOTES: Dr. Montanez was at bedside and made aware about patient's HR of ST 115. No new order.
--- NOTE | 2018-10-26 12:30 | NUR ---
NURSE NOTES: Informed Dr. Villagomez about patient's PLT of 78. Received an order for STAT CBC. Order carried out.
--- NOTE | 2018-10-26 12:34 | General Progress Note ---
Assessment/Plan Problem List: (1) CAD (coronary artery disease) ICD Codes: I25.10 - Atherosclerotic heart disease of [place] coronary artery without angina pectoris SNOMED: 54654362 (2) RI (3) Thrombocytopenia ICD Codes: D69.6 - Thrombocytopenia, unspecified SNOMED: 133436937 (4) Respiratory failure ICD Codes: J96.90 - Respiratory failure, unspecified, unspecified whether with hypoxia or hypercapnia SNOMED: 705207155 (5) Dysphagia ICD Codes: R13.10 - Dysphagia, unspecified SNOMED: 79753273, 602163939 (6) Elevated CEA ICD Codes: R97.0 - Elevated carcinoembryonic antigen [CEA] SNOMED: 680758830 (7) Shock liver ICD Codes: K72.00 - Acute and subacute hepatic failure without coma SNOMED: 245303435 (8) Liver cirrhosis ICD Codes: K74.60 - Unspecified cirrhosis of liver SNOMED: 75512079 (9) Normocytic anemia ICD Codes: D64.9 - Anemia, unspecified SNOMED: 684103148 Assessment/Plan ppi BID monitor H&H fu LFTS>> improving work up for elevated CEA when more stable lasix and albumin combination xifaxan and lactulose reglan Subjective ROS Limited/Unobtainable: Yes Allergies: Coded Allergies: No Known Allergies (Unverified , 05/06/18) Subjective G tube was removed yesterday and patient started on diet. Patient tolerating the liquid portion of her diet well but only tolerated 10% of the solid portion Objective Last 24 Hour Vital Signs Date Time Temp Pulse Resp B/P (MAP) Pulse Ox O2 Delivery O2 Flow Rate FiO2 10/26/18 10:50 103 18 100 Nasal Cannula 2.0 10/26/18 10:40 103 20 100 Nasal Cannula 2.0 28 10/26/18 08:00 Nasal Cannula 2.0 10/26/18 08:00 97.8 108 21 125/69 (87) 98 10/26/18 07:24 103 18 100 Nasal Cannula 2.0 28 10/26/18 07:17 104 20 100 Nasal Cannula 2.0 28 10/26/18 07:17 100 Nasal Cannula 2.0 28 10/26/18 07:17 Nasal Cannula 2.0 28 10/26/18 04:23 102 20 100 Nasal Cannula 2.0 28 10/26/18 04:08 101 10/26/18 04:07 100 20 100 Nasal Cannula 2.0 28 10/26/18 04:00 Nasal Cannula 2.0 10/26/18 04:00 97.8 104 20 137/71 (93) 100 10/26/18 00:00 Nasal Cannula 2.0 10/26/18 00:00 97.9 106 20 120/70 (87) 96 10/25/18 23:39 106 10/25/18 23:21 104 20 100 Nasal Cannula 2.0 28 10/25/18 23:08 104 20 98 Nasal Cannula 2.0 28 10/25/18 20:00 Nasal Cannula 2.0 10/25/18 20:00 98.6 106 24 124/67 (86) 97 10/25/18 19:59 101 20 99 Nasal Cannula 2.0 28 10/25/18 19:49 105 20 97 Nasal Cannula 2.0 28 10/25/18 19:49 Nasal Cannula 2.0 28 10/25/18 19:48 97 Nasal Cannula 2.0 28 10/25/18 19:11 106 10/25/18 16:01 101 20 99 Nasal Cannula 2.0 28 10/25/18 16:00 Nasal Cannula 3.0 10/25/18 16:00 98.1 105 20 142/74 (96) 96 10/25/18 15:51 109 20 97 Nasal Cannula 2.0 28 10/25/18 15:10 106 10/25/18 14:00 Nasal Cannula 3.0 Intake and Output 10/25/18 10/26/18 19:00 07:00 Intake Total 1250 ml 1050 ml Output Total 2750 ml 780 ml Balance -1500 ml 270 ml Intake Oral 150 ml IV Total 1250 ml 900 ml Output Urine Total 1500 ml 420 ml Stool Total 550 ml 360 ml Gastric Drainage Total 700 ml Laboratory Tests 10/26/18 03:30: White Blood Count 9.7, Red Blood Count 2.86L, Hemoglobin 8.8L, Hematocrit 27.5L , Mean Corpuscular Volume 96, Mean Corpuscular Hemoglobin 30.6, Mean Corpuscular Hemoglobin Concent 31.8L, Red Cell Distribution Width 23.2H, Platelet Count 78L, Mean Platelet Volume 5.3L, Neutrophils (%) (Auto) , Lymphocytes (%) (Auto) , Monocytes (%) (Auto) , Eosinophils (%) (Auto) , Basophils (%) (Auto) , Sodium Level 140, Potassium Level 3.4L, Chloride Level 108H, Carbon Dioxide Level 26, Anion Gap 6, Blood Urea Nitrogen 12, Creatinine 1.3, Estimat Glomerular Filtration Rate 42.1, Glucose Level 216H, Uric Acid 6.7 , Calcium Level 9.8, Phosphorus Level 2.9, Magnesium Level 2.0, Total Bilirubin 7.4H, Direct Bilirubin 5.1H, Gamma Glutamyl Transpeptidase 267H, Aspartate Amino Transf (AST/SGOT) 86H, Alanine Aminotransferase (ALT/SGPT) 107H, Alkaline Phosphatase 362H, Total Protein 5.7L, Albumin 2.1L, Globulin 3.6, Albumin/ Globulin Ratio 0.6L Height (Feet): 5 Height (Inches): 1.00 Weight (Pounds): 236 General Appearance: no apparent distress EENT: normal ENT inspection Neck: supple Cardiovascular: normal rate Respiratory/Chest: decreased breath sounds Abdomen: normal bowel sounds, non tender, soft Extremities: swelling Samuel Reynolds MD Oct 26, 2018 12:34
[2018-10-26 13:26] LABS: BASOPHILS % (AUTO) 1.5 % (0.0-2.0); EOSINOPHILS % (AUTO) 3.5 % (0.0-3.0); HEMATOCRIT 27.7 % (37.0-47.0); HEMOGLOBIN 8.9 G/DL (12.0-16.0); LYMPHOCYTES % (AUTO) 10.9 % (20.0-45.0); MEAN CORPUSCULAR VOLUME 95 FL (80-99); MONOCYTES % (AUTO) 6.9 % (1.0-10.0); NEUTROPHILS % (AUTO) 77.2 % (45.0-75.0); PLATELET COUNT 108 K/UL (150-450); RED BLOOD COUNT 2.91 M/UL (4.20-5.40); RED CELL DISTRIBUTION WIDTH 23.5 % (11.6-14.8); WHITE BLOOD COUNT 10.8 K/UL (4.8-10.8)
--- NOTE | 2018-10-26 13:34 | NUR ---
NURSE NOTES: Informed Dr. Villagomez that patient's PLT is now 108. No New orders.
--- NOTE | 2018-10-26 14:26 | Nephrology Progress Note ---
Assessment/Plan Problem List: (1) JONNATHAN (acute kidney injury) Assessment: resolving (2) Shock liver (3) Septic shock (4) Respiratory disorder with ventilator dependence Assessment - Acute Oliguric Renal Failure Cr down to 1.1 - Respiratory disorder with s/p mechanical ventilator - Septic shock , Leukocytosis resolved - Pneumonia - Liver cirrhosis - Obese - Anemia . Plan mag IV as needed transfused 2 units previously down on IV fluid K and Phos IV as needed Hemodynamic support Pulmunary support Monitor renal parameters avoid nephrotoxics as best as possible per orders discussed with RN Subjective ROS Limited/Unobtainable: No Constitutional: Reports: malaise, weakness Objective Objective Last 24 Hour Vital Signs Date Time Temp Pulse Resp B/P (MAP) Pulse Ox O2 Delivery O2 Flow Rate FiO2 10/26/18 12:00 118 10/26/18 12:00 Nasal Cannula 2.0 10/26/18 12:00 98.6 115 21 130/75 (93) 98 10/26/18 10:50 103 18 100 Nasal Cannula 2.0 28 10/26/18 10:40 103 20 100 Nasal Cannula 2.0 28 10/26/18 08:00 Nasal Cannula 2.0 10/26/18 08:00 97.8 108 21 125/69 (87) 98 10/26/18 07:52 107 10/26/18 07:24 103 18 100 Nasal Cannula 2.0 28 10/26/18 07:17 104 20 100 Nasal Cannula 2.0 28 10/26/18 07:17 100 Nasal Cannula 2.0 28 10/26/18 07:17 Nasal Cannula 2.0 28 10/26/18 04:23 102 20 100 Nasal Cannula 2.0 28 10/26/18 04:08 101 10/26/18 04:07 100 20 100 Nasal Cannula 2.0 28 10/26/18 04:00 Nasal Cannula 2.0 10/26/18 04:00 97.8 104 20 137/71 (93) 100 10/26/18 00:00 Nasal Cannula 2.0 10/26/18 00:00 97.9 106 20 120/70 (87) 96 10/25/18 23:39 106 10/25/18 23:21 104 20 100 Nasal Cannula 2.0 28 10/25/18 23:08 104 20 98 Nasal Cannula 2.0 28 10/25/18 20:00 Nasal Cannula 2.0 10/25/18 20:00 98.6 106 24 124/67 (86) 97 10/25/18 19:59 101 20 99 Nasal Cannula 2.0 28 10/25/18 19:49 105 20 97 Nasal Cannula 2.0 28 10/25/18 19:49 Nasal Cannula 2.0 28 10/25/18 19:48 97 Nasal Cannula 2.0 28 10/25/18 19:11 106 10/25/18 16:01 101 20 99 Nasal Cannula 2.0 28 10/25/18 16:00 Nasal Cannula 3.0 10/25/18 16:00 98.1 105 20 142/74 (96) 96 10/25/18 15:51 109 20 97 Nasal Cannula 2.0 28 10/25/18 15:10 106 Intake and Output 10/25/18 10/26/18 19:00 07:00 Intake Total 1250 ml 1050 ml Output Total 2750 ml 780 ml Balance -1500 ml 270 ml Intake Oral 150 ml IV Total 1250 ml 900 ml Output Urine Total 1500 ml 420 ml Stool Total 550 ml 360 ml Gastric Drainage Total 700 ml Laboratory Tests 10/26/18 03:30: White Blood Count 9.7, Red Blood Count 2.86L, Hemoglobin 8.8L, Hematocrit 27.5L , Mean Corpuscular Volume 96, Mean Corpuscular Hemoglobin 30.6, Mean Corpuscular Hemoglobin Concent 31.8L, Red Cell Distribution Width 23.2H, Platelet Count 78L, Mean Platelet Volume 5.3L, Neutrophils (%) (Auto) , Lymphocytes (%) (Auto) , Monocytes (%) (Auto) , Eosinophils (%) (Auto) , Basophils (%) (Auto) , Sodium Level 140, Potassium Level 3.4L, Chloride Level 108H, Carbon Dioxide Level 26, Anion Gap 6, Blood Urea Nitrogen 12, Creatinine 1.3, Estimat Glomerular Filtration Rate 42.1, Glucose Level 216H, Uric Acid 6.7 , Calcium Level 9.8, Phosphorus Level 2.9, Magnesium Level 2.0, Total Bilirubin 7.4H, Direct Bilirubin 5.1H, Gamma Glutamyl Transpeptidase 267H, Aspartate Amino Transf (AST/SGOT) 86H, Alanine Aminotransferase (ALT/SGPT) 107H, Alkaline Phosphatase 362H, Total Protein 5.7L, Albumin 2.1L, Globulin 3.6, Albumin/ Globulin Ratio 0.6L 10/26/18 13:00: White Blood Count 10.8, Red Blood Count 2.91L, Hemoglobin 8.9L, Hematocrit 27.7L , Mean Corpuscular Volume 95, Mean Corpuscular Hemoglobin 30.7, Mean Corpuscular Hemoglobin Concent 32.2, Red Cell Distribution Width 23.5H, Platelet Count 108L, Mean Platelet Volume 6.1L, Neutrophils (%) (Auto) 77.2H, Lymphocytes (%) (Auto) 10.9L, Monocytes (%) (Auto) 6.9, Eosinophils (%) (Auto) 3.5H, Basophils (%) (Auto) 1.5 Height (Feet): 5 Height (Inches): 1.00 Weight (Pounds): 236 Cardiovascular: tachycardia Respiratory/Chest: decreased breath sounds Abdomen: distended Objective NO CHANGE Alex Cueto MD Oct 26, 2018 14:25
--- NOTE | 2018-10-26 14:39 | NUR ---
ST NOTE: SWALLOW/SPEECH/LANGUAGE/COGNITION STATUS: FOLLOWED UP PT'S CONDITIONS. PT SEEN AT BEDSIDE IN PM, DURING LUNCH, PT ALERT, COOPERATIVE, PT WITH NC(2L), HR: 110. COMPLETED LUNCH WITH PT, PT TOLERATED NECTAR THICK LIQUIDS VIA TSP AND PUREED(TSP X 3 ONLY, PT REFUSED FURTHER PO ), MILD INCREASED ORAL TRANSIT TIME AND OROPHARYNGEAL TRANSIT TIME, FAIR LARYNGEAL ELEVATION, THROAT CLEARING X 1 WAS NOTED. TRAINED AND EDUCATED PT TO USE DOUBLE SWALLOWS AND EFFORTFUL SWALLOW TECHNIQUES. PT COMPLETED 10 TO 15% OF THE MEAL. EDUCATED PT'S RE: ASPIRATION PRECAUTIONS. FOR QUALITY OF LIFE, CONTINUE ORAL DIET. CHANGED DIET TO LIQUIFIED PUREED, LIKE NECTAR THICK SOUP CONSISTENCY WITH NECTAR THICK LIQUIDS WITH STRICT ASPIRATION PRECAUTIONS WITH 1TO1 FEEDING. D/W RN, YOSELYN AND RD. UPDATED ASPIRATION PRECAUTION SIGN.
[2018-10-26 16:00] VITALS: BP 132/72
--- NOTE | 2018-10-26 16:18 | Pulmonology Progress Note ---
Assessment/Plan Assessment/Plan ASSESSMENT: The patient is a 58-year-old female with a history of obesity, diabetes, hypertension, hyperlipidemia, and sciatica with chronic low back pain , DDD/DJD, presenting after a mechanical fall with altered mental status and confusion with likely sepsis and multisystem organ failure. PROBLEM LIST: 1. VDRF, EXTUBATED 10/16/18 2. Sepsis 3. Shock, hypovolemic and distributive. 4. Multisystem organ failure. 5. Lactic acidosis. 6. Anion gap metabolic acidosis. 7. JONNATHAN - BETTER 7. Abnormal LFTs, likely shock liver. 8. Abnormal troponin, likely demand ischemia. 9. Elevated D-dimer and PASP concerning for an acute PE 10. Obesity. 11. Diabetes. 12. Hypertension. 13. Chronic low back pain and sciatica. 14. Anemia/FOBT + 15. Thrombocytopenia 16. AFcRVR now in NSR 17. HyperNa 18. Herpes labialis TREATMENT PLAN: 1. Optimize pulmonary hygiene/mobilize as tolerated 2. Titrate down FiO2 to keep SaO2 < 90% 3. Observe off Abx per ID 4. IV lasix, PRN albumin 6. SSI, monitor BS 7. Follow up cards recs 8. GI and surgery recs, PRN para, NGT out, diet advanced, ? TPN (barely eating) , ENDOSCOPY?, trend LFT's 9. DVT prophylaxis: SCD 10. FC, discuss GOC, consider palliative care eval Subjective Allergies: Coded Allergies: No Known Allergies (Unverified , 05/06/18) Subjective AFVSS O2 needs stable Agnieszka PO but barely eating, very week no cough no SOB no F/C Objective Last 24 Hour Vital Signs Date Time Temp Pulse Resp B/P (MAP) Pulse Ox O2 Delivery O2 Flow Rate FiO2 10/26/18 16:00 Nasal Cannula 2.0 10/26/18 15:32 119 10/26/18 15:03 106 18 100 Nasal Cannula 2.0 28 10/26/18 14:54 109 24 97 Nasal Cannula 2.0 28 10/26/18 12:00 118 10/26/18 12:00 Nasal Cannula 2.0 10/26/18 12:00 98.6 115 21 130/75 (93) 98 10/26/18 10:50 103 18 100 Nasal Cannula 2.0 28 10/26/18 10:40 103 20 100 Nasal Cannula 2.0 28 10/26/18 08:00 Nasal Cannula 2.0 10/26/18 08:00 97.8 108 21 125/69 (87) 98 10/26/18 07:52 107 10/26/18 07:24 103 18 100 Nasal Cannula 2.0 28 10/26/18 07:17 104 20 100 Nasal Cannula 2.0 28 10/26/18 07:17 100 Nasal Cannula 2.0 28 10/26/18 07:17 Nasal Cannula 2.0 28 10/26/18 04:23 102 20 100 Nasal Cannula 2.0 28 10/26/18 04:08 101 10/26/18 04:07 100 20 100 Nasal Cannula 2.0 28 10/26/18 04:00 Nasal Cannula 2.0 10/26/18 04:00 97.8 104 20 137/71 (93) 100 10/26/18 00:00 Nasal Cannula 2.0 10/26/18 00:00 97.9 106 20 120/70 (87) 96 10/25/18 23:39 106 10/25/18 23:21 104 20 100 Nasal Cannula 2.0 28 10/25/18 23:08 104 20 98 Nasal Cannula 2.0 28 10/25/18 20:00 Nasal Cannula 2.0 10/25/18 20:00 98.6 106 24 124/67 (86) 97 10/25/18 19:59 101 20 99 Nasal Cannula 2.0 28 10/25/18 19:49 105 20 97 Nasal Cannula 2.0 28 10/25/18 19:49 Nasal Cannula 2.0 28 10/25/18 19:48 97 Nasal Cannula 2.0 28 10/25/18 19:11 106 Intake and Output 10/25/18 10/26/18 19:00 07:00 Intake Total 1250 ml 1050 ml Output Total 2750 ml 780 ml Balance -1500 ml 270 ml Intake Oral 150 ml IV Total 1250 ml 900 ml Output Urine Total 1500 ml 420 ml Stool Total 550 ml 360 ml Gastric Drainage Total 700 ml General Appearance: no acute distress, cachetic, other - icteric HEENT: normocephalic, atraumatic, anicteric, mucous membranes moist, other - 6 cm JVD Respiratory/Chest: chest wall non-tender, lungs clear - but reduced @ the bases , no respiratory distress, no accessory muscle use Cardiovascular: normal peripheral pulses, normal rate, regular rhythm Abdomen: normal bowel sounds, soft, non tender, no organomegaly, non distended , no mass Extremities: no cyanosis, no clubbing, other - 1-2+ MAREK Laboratory Tests 10/26/18 03:30: White Blood Count 9.7, Red Blood Count 2.86L, Hemoglobin 8.8L, Hematocrit 27.5L , Mean Corpuscular Volume 96, Mean Corpuscular Hemoglobin 30.6, Mean Corpuscular Hemoglobin Concent 31.8L, Red Cell Distribution Width 23.2H, Platelet Count 78L, Mean Platelet Volume 5.3L, Neutrophils (%) (Auto) , Lymphocytes (%) (Auto) , Monocytes (%) (Auto) , Eosinophils (%) (Auto) , Basophils (%) (Auto) , Sodium Level 140, Potassium Level 3.4L, Chloride Level 108H, Carbon Dioxide Level 26, Anion Gap 6, Blood Urea Nitrogen 12, Creatinine 1.3, Estimat Glomerular Filtration Rate 42.1, Glucose Level 216H, Uric Acid 6.7 , Calcium Level 9.8, Phosphorus Level 2.9, Magnesium Level 2.0, Total Bilirubin 7.4H, Direct Bilirubin 5.1H, Gamma Glutamyl Transpeptidase 267H, Aspartate Amino Transf (AST/SGOT) 86H, Alanine Aminotransferase (ALT/SGPT) 107H, Alkaline Phosphatase 362H, Total Protein 5.7L, Albumin 2.1L, Globulin 3.6, Albumin/ Globulin Ratio 0.6L 10/26/18 13:00: White Blood Count 10.8, Red Blood Count 2.91L, Hemoglobin 8.9L, Hematocrit 27.7L , Mean Corpuscular Volume 95, Mean Corpuscular Hemoglobin 30.7, Mean Corpuscular Hemoglobin Concent 32.2, Red Cell Distribution Width 23.5H, Platelet Count 108L, Mean Platelet Volume 6.1L, Neutrophils (%) (Auto) 77.2H, Lymphocytes (%) (Auto) 10.9L, Monocytes (%) (Auto) 6.9, Eosinophils (%) (Auto) 3.5H, Basophils (%) (Auto) 1.5 Current Medications Medications (Trade) Dose Ordered Sig/Patricia Route PRN Reason Start Time Stop Time Status Last Admin Dose Admin Acyclovir (Zovirax) 400 mg EVERY 8 HOURS ORAL 10/22/18 10:15 10/27/18 23:59 10/26/18 13:27 Albuterol/ Ipratropium (Albuterol/ Ipratropium) 3 ml Q4HRT HHN 10/23/18 03:00 10/28/18 02:59 10/26/18 14:53 Chlorhexidine Gluconate (Nguyen-Hex 2%) 1 applic DAILY@2000 TOPIC 10/17/18 20:00 11/09/18 19:59 10/25/18 21:08 Dextrose 1,000 ml @ 75 mls/hr [id number] IV 10/19/18 13:30 10/26/18 20:00 10/26/18 05:03 Dextrose (Dextrose 50%) 25 ml Q30M PRN IV Hypoglycemia 10/17/18 14:45 11/10/18 13:44 Dextrose (Dextrose 50%) 50 ml Q30M PRN IV Hypoglycemia 10/17/18 14:45 11/10/18 13:44 Digoxin (Lanoxin) 0.125 mg QOD NG 10/19/18 09:00 11/15/18 08:59 10/25/18 08:58 Diphenhydramine HCl (Benadryl) 25 mg Q6H PRN IVP Itching 10/17/18 14:30 11/08/18 14:29 Furosemide (Lasix) 40 mg DAILY IV 10/23/18 09:45 11/22/18 09:44 10/26/18 08:57 Insulin Aspart (NovoLOG) BEFORE MEALS AND HS SUBQ 10/17/18 16:30 11/10/18 16:29 10/26/18 11:52 Lactulose (Cephulac) 30 gm THREE TIMES A DAY NG 10/17/18 18:00 11/12/18 17:59 10/26/18 12:53 Metoclopramide HCl (Reglan) 5 mg Q6H IVP 10/17/18 17:30 11/13/18 11:29 10/26/18 10:36 Midazolam HCl (Versed 2mg/2ml vial) 1 mg Q2H PRN IVP For Anxiety 10/17/18 14:30 11/11/18 14:29 Pantoprazole (Protonix) 40 mg EVERY 12 HOURS IVP 10/17/18 21:00 11/09/18 20:59 10/26/18 08:56 Phytonadione (Vitamin K) 10 mg QWEEK SUBQ 11/02/18 09:00 12/02/18 08:59 Rifaximin (Xifaxan) 550 mg EVERY 12 HOURS ORAL 10/17/18 21:00 10/26/18 20:59 10/26/18 08:57 Spironolactone (Aldactone) 25 mg DAILY ORAL 10/23/18 09:45 11/22/18 09:44 10/26/18 08:57 Renato Delarosa MD Oct 26, 2018 16:18
--- NOTE | 2018-10-26 19:45 | NUR ---
HAND-OFF: Report given to Kacie Chiang RN. Patient stable and family at bedside.
--- NOTE | 2018-10-26 19:46 | NUR ---
NURSE NOTES: Report received from Sophia Anderson RN. Pt A/Ox3, lethargic, opens eyes spontaneously and answers questions approriately. safety and health consultant shows ST. Pt currently on 2L NC and tolerating well. Pt now on a pureed moist nectar thick diet. Rectal tube and medina catheter present and draining appropriately. Accuchecks are ACHS. Pt has blistering noted on right lower leg, otherwise no pressure ulcers noted. Pt has a LISA PICC present with D5W running at 75 ml/hr. Bed in lowest position, bed alarms placed. Call light within reach. Will continue to monitor and with patients plan of care.
[2018-10-26 20:00] VITALS: BP 134/71
[2018-10-26] MEDS ORDERED: FAT EMULSION IV SCH ×2 (20:00)
[2018-10-26] MEDS ORDERED: FAT EMULSION 20% IV SCH (20:00)
[2018-10-26] MEDS ORDERED: TPN IV SCH ×3 (20:00)
[2018-10-26] MEDS: Dyna-Hex 2% Top Sol 2oz TOPIC SCH (20:20)
--- NOTE | 2018-10-26 21:33 | General Progress Note ---
Assessment/Plan Problem List: (1) Hypotension ICD Codes: I95.9 - Hypotension, unspecified SNOMED: 85998477 (2) Hyperglycemia ICD Codes: R73.9 - Hyperglycemia, unspecified SNOMED: 18666878 (3) Dyspnea ICD Codes: R06.00 - Dyspnea, unspecified SNOMED: 864406613 (4) Hypoxemia ICD Codes: R09.02 - Hypoxemia SNOMED: 215229971 (5) Contusion of left knee ICD Codes: S80.02XA - Contusion of left knee, initial encounter SNOMED: 26154107 (6) Sepsis ICD Codes: A41.9 - Sepsis, unspecified organism SNOMED: 08675405 (7) Septic shock ICD Codes: A41.9 - Sepsis, unspecified organism; R65.21 - Severe sepsis with septic shock SNOMED: 44310798 (8) Liver cirrhosis ICD Codes: K74.60 - Unspecified cirrhosis of liver SNOMED: 37888775 (9) Pneumonia ICD Codes: J18.9 - Pneumonia, unspecified organism SNOMED: 079934443 (10) Respiratory disorder with ventilator dependence ICD Codes: J98.9 - Respiratory disorder, unspecified; Z99.11 - Dependence on respirator [ventilator] status SNOMED: 23842954, 242276420 (11) Shock liver ICD Codes: K72.00 - Acute and subacute hepatic failure without coma SNOMED: 735992520 Status: unchanged Assessment/Plan malnutriton reviewed meds and labs and chart edema cihrrosis sepsis obesity morbid pna encephalopathy afebrile Subjective ROS Limited/Unobtainable: Yes Allergies: Coded Allergies: No Known Allergies (Unverified , 05/06/18) Objective Last 24 Hour Vital Signs Date Time Temp Pulse Resp B/P (MAP) Pulse Ox O2 Delivery O2 Flow Rate FiO2 10/26/18 19:43 113 18 99 Nasal Cannula 2.0 28 10/26/18 19:32 Nasal Cannula 2.0 28 10/26/18 19:32 98 Nasal Cannula 2.0 28 10/26/18 19:28 111 20 99 Nasal Cannula 2.0 28 10/26/18 16:00 99.4 119 22 132/72 (92) 96 10/26/18 16:00 Nasal Cannula 2.0 10/26/18 15:32 119 10/26/18 15:03 106 18 100 Nasal Cannula 2.0 28 10/26/18 14:54 109 24 97 Nasal Cannula 2.0 28 10/26/18 12:00 118 10/26/18 12:00 Nasal Cannula 2.0 10/26/18 12:00 98.6 115 21 130/75 (93) 98 10/26/18 10:50 103 18 100 Nasal Cannula 2.0 28 10/26/18 10:40 103 20 100 Nasal Cannula 2.0 28 10/26/18 08:00 Nasal Cannula 2.0 10/26/18 08:00 97.8 108 21 125/69 (87) 98 10/26/18 07:52 107 10/26/18 07:24 103 18 100 Nasal Cannula 2.0 28 10/26/18 07:17 104 20 100 Nasal Cannula 2.0 28 10/26/18 07:17 100 Nasal Cannula 2.0 28 10/26/18 07:17 Nasal Cannula 2.0 28 10/26/18 04:23 102 20 100 Nasal Cannula 2.0 28 10/26/18 04:08 101 10/26/18 04:07 100 20 100 Nasal Cannula 2.0 28 10/26/18 04:00 Nasal Cannula 2.0 10/26/18 04:00 97.8 104 20 137/71 (93) 100 10/26/18 00:00 Nasal Cannula 2.0 10/26/18 00:00 97.9 106 20 120/70 (87) 96 10/25/18 23:39 106 10/25/18 23:21 104 20 100 Nasal Cannula 2.0 28 10/25/18 23:08 104 20 98 Nasal Cannula 2.0 Intake and Output 10/25/18 10/26/18 18:59 06:59 Intake Total 1250 ml 1050 ml Output Total 2750 ml 780 ml Balance -1500 ml 270 ml Intake Oral 150 ml IV Total 1250 ml 900 ml Output Urine Total 1500 ml 420 ml Stool Total 550 ml 360 ml Gastric Drainage Total 700 ml Laboratory Tests 10/26/18 03:30: White Blood Count 9.7, Red Blood Count 2.86L, Hemoglobin 8.8L, Hematocrit 27.5L , Mean Corpuscular Volume 96, Mean Corpuscular Hemoglobin 30.6, Mean Corpuscular Hemoglobin Concent 31.8L, Red Cell Distribution Width 23.2H, Platelet Count 78L, Mean Platelet Volume 5.3L, Neutrophils (%) (Auto) , Lymphocytes (%) (Auto) , Monocytes (%) (Auto) , Eosinophils (%) (Auto) , Basophils (%) (Auto) , Sodium Level 140, Potassium Level 3.4L, Chloride Level 108H, Carbon Dioxide Level 26, Anion Gap 6, Blood Urea Nitrogen 12, Creatinine 1.3, Estimat Glomerular Filtration Rate 42.1, Glucose Level 216H, Uric Acid 6.7 , Calcium Level 9.8, Phosphorus Level 2.9, Magnesium Level 2.0, Total Bilirubin 7.4H, Direct Bilirubin 5.1H, Gamma Glutamyl Transpeptidase 267H, Aspartate Amino Transf (AST/SGOT) 86H, Alanine Aminotransferase (ALT/SGPT) 107H, Alkaline Phosphatase 362H, Total Protein 5.7L, Albumin 2.1L, Globulin 3.6, Albumin/ Globulin Ratio 0.6L 10/26/18 13:00: White Blood Count 10.8, Red Blood Count 2.91L, Hemoglobin 8.9L, Hematocrit 27.7L , Mean Corpuscular Volume 95, Mean Corpuscular Hemoglobin 30.7, Mean Corpuscular Hemoglobin Concent 32.2, Red Cell Distribution Width 23.5H, Platelet Count 108L, Mean Platelet Volume 6.1L, Neutrophils (%) (Auto) 77.2H, Lymphocytes (%) (Auto) 10.9L, Monocytes (%) (Auto) 6.9, Eosinophils (%) (Auto) 3.5H, Basophils (%) (Auto) 1.5 Height (Feet): 5 Height (Inches): 1.00 Weight (Pounds): 236 General Appearance: confused Respiratory/Chest: rhonchi - bilaterally Michael Kelley MD Oct 26, 2018 21:33
--- NOTE | 2018-10-26 22:55 | General Progress Note ---
Assessment/Plan Assessment/Plan Assessment and Recs: # Leukocytosis/Elevated white blood cell count, unspecified likely related to underlying stress reaction, or underlying infection --> have reviewed peripheral smear and bandemia/neutrophilia noted --> continue antibiotics if they have been started by ID team (on zosyn at this time) --> monitor for resolution -->WBC trend: 14-->10-->15-->12-->11-->10-->8.6 # Thrombocytopenia - potential causes multifactorial, evaluate liver and viral etiologies to begin, also could be related to underlying medications patient has received. Hx of cirrhosis in the past noted on us --> Hep panel and HIV negative --> CT a/p show cirrhosis as well as us --> Peripheral smear ordered to evaluate for blasts /schistocytes is negative --> abx and other meds have been reviewed --> ok for ppx if plt >50k w/ either heparin or lovenox --> Transfuse if Plt < 20k and fever, or if Plt < 10k without fever --> HIT negative, hold off heparin -->Plt trend : 54-->92-->106-->113 # Anemia of iron deficiency as noted with low % sat and tibc elevated --> Anemia workup has been reviewed --> No evidence of hemolysis is noted, peripheral smear has been reviewed. --> Hgb goal >7. Transfuse prn. --> Iron IV X 5 days already given --> Medications have been reviewed # CEA of 10.5 --> Ct of abdomen/pelvis reviewed and is negative # Sepsis likely contributing to low plts --> on abx as needed # Shock, hypovolemic and distributive --> per id and pulm/cc care # Multisystem organ failure. # Lactic acidosis. # JONNATHAN. # Abnormal LFTs, likely shock liver. # Abnormal troponin, likely demand ischemia. # Obesity. # Respiratory failure on vent --> now extubated The timing of this note does not necessarily reflect the time of the patient was seen. Greatly appreciate consultation! Subjective Constitutional: Denies: no symptoms, chills, diaphoresis, fever, malaise, weakness, other HEENT: Denies: no symptoms, eye pain, blurred vision, tearing, double vision, ear pain, ear discharge, nose pain, nose congestion, throat pain, throat swelling, mouth pain, mouth swelling, other Cardiovascular: Denies: no symptoms, chest pain, edema, irregular heart rate, lightheadedness, palpitations, syncope, other Respiratory: Denies: no symptoms, cough, orthopnea, shortness of breath, SOB with excertion, SOB at rest, sputum, stridor, wheezing, other Gastrointestinal/Abdominal: Denies: no symptoms, abdomen distended, abdominal pain, black stools, tarry stools, blood in stool, constipated, diarrhea, difficulty swallowing, nausea, poor appetite, poor fluid intake, rectal bleeding , vomiting, other Genitourinary: Denies: no symptoms, burning, discharge, frequency, flank pain, hematuria, incontinence, pain, urgency, other Neurologic/Psychiatric: Denies: no symptoms, anxiety, depressed, emotional problems, headache, numbness, paresthesia, pre-existing deficit, seizure, tingling, tremors, weakness, other Endocrine: Denies: no symptoms, excessive sweating, flushing, intolerance to cold, intolerance to heat, increased hunger, increased thirst, increased urine, unexplained weight gain, unexplained weight loss, other Allergies: Coded Allergies: No Known Allergies (Unverified , 05/06/18) Subjective 3: Pt was seen in ICU on Vent and off pressors, developed atrial fib, wbc trending down to 13, plt trending down to 60 10/14: remains in the icu, monitoring labs, plts stabilizing, remains critically ill, cea elev 3: In ICU on Vent and off pressors, plt 62, no events 10/16 wbc trending up at 14,plt low at 48,weaning well from vent. no acute events , family at bedside 10/17: plts remain low, no events, weaned off vent, no complaints, off pressors 10/18: seen by bedside, wbc trending up at 15, plt low at 50, no events, needs video swallow. NGT 10/19: wbc remains elevated, plt 54, no acute distress reported 10/21: seen by bedside, still with lots of NG tube output, wbc 12, plt trending up 10/22: awake, alert,has high NG tube residual, wbc 11, no events 10/23: comfortable, wbc trending down, plt trending up , no events 10/24: Seen by bedside, leukocytosis resolved, no events 3: awake, comfortable, Surgery removed NGT, no events 3.15: NG tube was removed yesterday and patient started on diet, comfortable, no events, plt trending up Objective Last 24 Hour Vital Signs Date Time Temp Pulse Resp B/P (MAP) Pulse Ox O2 Delivery O2 Flow Rate FiO2 10/26/18 19:43 113 18 99 Nasal Cannula 2.0 28 10/26/18 19:32 Nasal Cannula 2.0 28 10/26/18 19:32 98 Nasal Cannula 2.0 28 10/26/18 19:28 111 20 99 Nasal Cannula 2.0 28 10/26/18 16:00 99.4 119 22 132/72 (92) 96 10/26/18 16:00 Nasal Cannula 2.0 10/26/18 15:32 119 10/26/18 15:03 106 18 100 Nasal Cannula 2.0 28 10/26/18 14:54 109 24 97 Nasal Cannula 2.0 28 10/26/18 12:00 118 10/26/18 12:00 Nasal Cannula 2.0 10/26/18 12:00 98.6 115 21 130/75 (93) 98 10/26/18 10:50 103 18 100 Nasal Cannula 2.0 10/26/18 10:40 103 20 100 Nasal Cannula 2.0 10/26/18 08:00 Nasal Cannula 2.0 10/26/18 08:00 97.8 108 21 125/69 (87) 98 10/26/18 07:52 107 10/26/18 07:24 103 18 100 Nasal Cannula 2.0 10/26/18 07:17 104 20 100 Nasal Cannula 2.0 28 10/26/18 07:17 100 Nasal Cannula 2.0 28 10/26/18 07:17 Nasal Cannula 2.0 28 10/26/18 04:23 102 20 100 Nasal Cannula 2.0 28 10/26/18 04:08 101 10/26/18 04:07 100 20 100 Nasal Cannula 2.0 28 10/26/18 04:00 Nasal Cannula 2.0 10/26/18 04:00 97.8 104 20 137/71 (93) 100 10/26/18 00:00 Nasal Cannula 2.0 10/26/18 00:00 97.9 106 20 120/70 (87) 96 10/25/18 23:39 106 10/25/18 23:21 104 20 100 Nasal Cannula 2.0 28 10/25/18 23:08 104 20 98 Nasal Cannula 2.0 28 Intake and Output 10/25/18 10/26/18 18:59 06:59 Intake Total 1250 ml 1050 ml Output Total 2750 ml 780 ml Balance -1500 ml 270 ml Intake Oral 150 ml IV Total 1250 ml 900 ml Output Urine Total 1500 ml 420 ml Stool Total 550 ml 360 ml Gastric Drainage Total 700 ml Laboratory Tests 10/26/18 03:30: White Blood Count 9.7, Red Blood Count 2.86L, Hemoglobin 8.8L, Hematocrit 27.5L , Mean Corpuscular Volume 96, Mean Corpuscular Hemoglobin 30.6, Mean Corpuscular Hemoglobin Concent 31.8L, Red Cell Distribution Width 23.2H, Platelet Count 78L, Mean Platelet Volume 5.3L, Neutrophils (%) (Auto) , Lymphocytes (%) (Auto) , Monocytes (%) (Auto) , Eosinophils (%) (Auto) , Basophils (%) (Auto) , Sodium Level 140, Potassium Level 3.4L, Chloride Level 108H, Carbon Dioxide Level 26, Anion Gap 6, Blood Urea Nitrogen 12, Creatinine 1.3, Estimat Glomerular Filtration Rate 42.1, Glucose Level 216H, Uric Acid 6.7 , Calcium Level 9.8, Phosphorus Level 2.9, Magnesium Level 2.0, Total Bilirubin 7.4H, Direct Bilirubin 5.1H, Gamma Glutamyl Transpeptidase 267H, Aspartate Amino Transf (AST/SGOT) 86H, Alanine Aminotransferase (ALT/SGPT) 107H, Alkaline Phosphatase 362H, Total Protein 5.7L, Albumin 2.1L, Globulin 3.6, Albumin/ Globulin Ratio 0.6L 10/26/18 13:00: White Blood Count 10.8, Red Blood Count 2.91L, Hemoglobin 8.9L, Hematocrit 27.7L , Mean Corpuscular Volume 95, Mean Corpuscular Hemoglobin 30.7, Mean Corpuscular Hemoglobin Concent 32.2, Red Cell Distribution Width 23.5H, Platelet Count 108L, Mean Platelet Volume 6.1L, Neutrophils (%) (Auto) 77.2H, Lymphocytes (%) (Auto) 10.9L, Monocytes (%) (Auto) 6.9, Eosinophils (%) (Auto) 3.5H, Basophils (%) (Auto) 1.5 Height (Feet): 5 Height (Inches): 1.00 Weight (Pounds): 236 Objective PHYSICAL EXAMINATION: VITAL SIGNS: reviewed, saturating 98% on NC++, GENERAL: She is an obese female, confused. HEENT: Normocephalic and atraumatic. Oropharynx is clear with dry mucous membranes., NECK: Supple without lymphadenopathy or JVP. CHEST: Clear. HEART: Regular. ABDOMEN: Benign. EXTREMITIES: No cyanosis, clubbing, or edema. There are some ecchymoses in bilateral lower extremities. Kurtis Villagomez MD Oct 26, 2018 22:55
[2018-10-27] VITALS: BP 127/62
[2018-10-27] MEDS: Albuterol/Ipratropium 3ml neb HHN SCH ×6 (02:59→22:58)
[2018-10-27 04:00] VITALS: BP 125/70
[2018-10-27] MEDS: Acyclovir 200mg Cap ORAL SCH ×3 (05:34→21:06)
[2018-10-27] MEDS: Metoclopramide 10mg/2ml Inj IVP SCH (05:34)
[2018-10-27] MEDS: NovoLOG Insulin Flexpen SUBQ SCH ×4 (05:35→20:16)
--- NOTE | 2018-10-27 06:00 | NUR ---
NURSE NOTES: Pt resting comfortably. Tolerating O2 settings well. Showed no signs of acute distress throughout the night. Pt cleaned and repositioned frequently.
[2018-10-27 08:00] VITALS: BP 134/71
--- NOTE | 2018-10-27 08:09 | General Progress Note ---
Assessment/Plan Problem List: (1) CAD (coronary artery disease) ICD Codes: I25.10 - Atherosclerotic heart disease of [place] coronary artery without angina pectoris SNOMED: 11744305 (2) RI (3) Thrombocytopenia ICD Codes: D69.6 - Thrombocytopenia, unspecified SNOMED: 054278518 (4) Respiratory failure ICD Codes: J96.90 - Respiratory failure, unspecified, unspecified whether with hypoxia or hypercapnia SNOMED: 925174722 (5) Dysphagia ICD Codes: R13.10 - Dysphagia, unspecified SNOMED: 84029901, 431080860 (6) Elevated CEA ICD Codes: R97.0 - Elevated carcinoembryonic antigen [CEA] SNOMED: 469052411 (7) Shock liver ICD Codes: K72.00 - Acute and subacute hepatic failure without coma SNOMED: 447184957 (8) Liver cirrhosis ICD Codes: K74.60 - Unspecified cirrhosis of liver SNOMED: 81768695 (9) Normocytic anemia ICD Codes: D64.9 - Anemia, unspecified SNOMED: 041452827 Assessment/Plan change ppi to daily monitor H&H fu LFTS>> improving work up for elevated CEA when more stable lasix increase aldactone to 100 fu labs xifaxan and lactulose reglan>>will dc Subjective ROS Limited/Unobtainable: Yes Allergies: Coded Allergies: No Known Allergies (Unverified , 05/06/18) Subjective G tube was removed yesterday and patient started on diet. Patient tolerating the liquid portion of her diet well but only tolerated 10% of the solid portion Objective Last 24 Hour Vital Signs Date Time Temp Pulse Resp B/P (MAP) Pulse Ox O2 Delivery O2 Flow Rate FiO2 10/27/18 07:32 107 20 98 Nasal Cannula 2.0 28 10/27/18 07:22 97 Nasal Cannula 2.0 28 10/27/18 07:22 Nasal Cannula 2.0 28 10/27/18 07:22 106 22 97 Nasal Cannula 2.0 28 10/27/18 04:00 98.2 108 20 125/70 (88) 97 10/27/18 04:00 105 10/27/18 04:00 Nasal Cannula 2.0 10/27/18 03:09 113 20 100 Nasal Cannula 2.0 28 10/27/18 02:59 106 20 98 Nasal Cannula 2.0 28 10/27/18 00:00 108 10/27/18 00:00 99.6 107 24 127/62 (83) 100 10/27/18 00:00 Nasal Cannula 2.0 10/26/18 23:25 110 20 100 Nasal Cannula 2.0 28 10/26/18 23:15 108 20 98 Nasal Cannula 2.0 28 10/26/18 20:00 108 10/26/18 20:00 98.4 113 24 134/71 (92) 100 10/26/18 20:00 Nasal Cannula 2.0 10/26/18 19:43 113 18 99 Nasal Cannula 2.0 28 10/26/18 19:32 Nasal Cannula 2.0 28 10/26/18 19:32 98 Nasal Cannula 2.0 28 10/26/18 19:28 111 20 99 Nasal Cannula 2.0 28 10/26/18 16:00 99.4 119 22 132/72 (92) 96 10/26/18 16:00 Nasal Cannula 2.0 10/26/18 15:32 119 10/26/18 15:03 106 18 100 Nasal Cannula 2.0 28 10/26/18 14:54 109 24 97 Nasal Cannula 2.0 28 10/26/18 12:00 118 10/26/18 12:00 Nasal Cannula 2.0 10/26/18 12:00 98.6 115 21 130/75 (93) 98 10/26/18 10:50 103 18 100 Nasal Cannula 2.0 28 10/26/18 10:40 103 20 100 Nasal Cannula 2.0 28 Intake and Output 10/26/18 10/27/18 19:00 07:00 Intake Total 1225 ml Output Total 1200 ml 800 ml Balance 25 ml -800 ml Intake Oral 100 ml IV Total 1125 ml Output Urine Total 900 ml 300 ml Stool Total 300 ml 500 ml Laboratory Tests 10/26/18 13:00: White Blood Count 10.8, Red Blood Count 2.91L, Hemoglobin 8.9L, Hematocrit 27.7L , Mean Corpuscular Volume 95, Mean Corpuscular Hemoglobin 30.7, Mean Corpuscular Hemoglobin Concent 32.2, Red Cell Distribution Width 23.5H, Platelet Count 108L, Mean Platelet Volume 6.1L, Neutrophils (%) (Auto) 77.2H, Lymphocytes (%) (Auto) 10.9L, Monocytes (%) (Auto) 6.9, Eosinophils (%) (Auto) 3.5H, Basophils (%) (Auto) 1.5 Height (Feet): 5 Height (Inches): 1.00 Weight (Pounds): 247 General Appearance: confused EENT: normal ENT inspection Neck: supple Cardiovascular: normal rate Respiratory/Chest: decreased breath sounds Abdomen: normal bowel sounds, non tender, soft Extremities: swelling Samuel Reynolds MD Oct 27, 2018 08:09
[2018-10-27] MEDS: Digoxin 0.125mg tab NG SCH (09:34)
[2018-10-27] MEDS: Spironolactone 50mg tab ORAL SCH (09:34)
[2018-10-27] MEDS: Pantoprazole Inj IVP SCH (09:35)
[2018-10-27] MEDS: Lactulose 20gm/30ml UDC NG SCH ×2 (09:36→12:21)
--- NOTE | 2018-10-27 10:34 | Infectious Diseases Prog Note ---
Assessment/Plan Assessment/Plan antibiotics : acyclovir, rifaximin A 1. lip herpes improving 2. cirrhosis 3. diabetes mellitus 4. renal failure resolved P 1. continue acyclovir 2. patient on rifaximin 3. will follow up cultures Subjective Constitutional: Denies: fever, chills Respiratory: Denies: shortness of breath, dry cough Gastrointestinal/Abdominal: Denies: nausea, vomiting, diarrhea Musculoskeletal: Denies: pain Allergies: Coded Allergies: No Known Allergies (Unverified , 05/06/18) Objective Vital Signs Last 24 Hour Vital Signs Date Time Temp Pulse Resp B/P (MAP) Pulse Ox O2 Delivery O2 Flow Rate FiO2 10/27/18 09:34 115 10/27/18 08:00 98.6 115 24 134/71 (92) 98 10/27/18 08:00 107 10/27/18 08:00 Nasal Cannula 2.0 10/27/18 07:32 107 20 98 Nasal Cannula 2.0 28 10/27/18 07:22 97 Nasal Cannula 2.0 28 10/27/18 07:22 Nasal Cannula 2.0 28 10/27/18 07:22 106 22 97 Nasal Cannula 2.0 28 10/27/18 04:00 98.2 108 20 125/70 (88) 97 10/27/18 04:00 105 10/27/18 04:00 Nasal Cannula 2.0 10/27/18 03:09 113 20 100 Nasal Cannula 2.0 28 10/27/18 02:59 106 20 98 Nasal Cannula 2.0 28 10/27/18 00:00 108 10/27/18 00:00 99.6 107 24 127/62 (83) 100 10/27/18 00:00 Nasal Cannula 2.0 10/26/18 23:25 110 20 100 Nasal Cannula 2.0 28 10/26/18 23:15 108 20 98 Nasal Cannula 2.0 28 10/26/18 20:00 108 10/26/18 20:00 98.4 113 24 134/71 (92) 100 10/26/18 20:00 Nasal Cannula 2.0 10/26/18 19:43 113 18 99 Nasal Cannula 2.0 28 10/26/18 19:32 Nasal Cannula 2.0 28 10/26/18 19:32 98 Nasal Cannula 2.0 28 10/26/18 19:28 111 20 99 Nasal Cannula 2.0 28 10/26/18 16:00 99.4 119 22 132/72 (92) 96 10/26/18 16:00 Nasal Cannula 2.0 10/26/18 15:32 119 10/26/18 15:03 106 18 100 Nasal Cannula 2.0 28 10/26/18 14:54 109 24 97 Nasal Cannula 2.0 28 10/26/18 12:00 118 10/26/18 12:00 Nasal Cannula 2.0 10/26/18 12:00 98.6 115 21 130/75 (93) 98 10/26/18 10:50 103 18 100 Nasal Cannula 2.0 28 10/26/18 10:40 103 20 100 Nasal Cannula 2.0 28 Height (Feet): 5 Height (Inches): 1.00 Weight (Pounds): 247 HEENT: other - lip lesion Respiratory/Chest: lungs clear Cardiovascular: normal rate, regular rhythm, no gallop/murmur Abdomen: soft, non tender Extremities: other - + edema, left arm PICC Laboratory Tests Test 10/26/18 13:00 White Blood Count 10.8 K/UL (4.8-10.8) Red Blood Count 2.91 M/UL (4.20-5.40) L Hemoglobin 8.9 G/DL (12.0-16.0) L Hematocrit 27.7 % (37.0-47.0) L Mean Corpuscular Volume 95 FL (80-99) Mean Corpuscular Hemoglobin 30.7 PG (27.0-31.0) Mean Corpuscular Hemoglobin Concent 32.2 G/DL (32.0-36.0) Red Cell Distribution Width 23.5 % (11.6-14.8) H Platelet Count 108 K/UL (150-450) L Mean Platelet Volume 6.1 FL (6.5-10.1) L Neutrophils (%) (Auto) 77.2 % (45.0-75.0) H Lymphocytes (%) (Auto) 10.9 % (20.0-45.0) L Monocytes (%) (Auto) 6.9 % (1.0-10.0) Eosinophils (%) (Auto) 3.5 % (0.0-3.0) H Basophils (%) (Auto) 1.5 % (0.0-2.0) Current Medications Medications (Trade) Dose Ordered Sig/Patricia Route PRN Reason Start Time Stop Time Status Last Admin Dose Admin Acyclovir (Zovirax) 400 mg EVERY 8 HOURS ORAL 10/22/18 10:15 10/27/18 23:59 10/27/18 05:34 Albuterol/ Ipratropium (Albuterol/ Ipratropium) 3 ml Q4HRT HHN 10/23/18 03:00 10/28/18 02:59 10/27/18 07:23 Chlorhexidine Gluconate (Nguyen-Hex 2%) 1 applic DAILY@2000 TOPIC 10/17/18 20:00 11/09/18 19:59 10/26/18 20:20 Dextrose (Dextrose 50%) 25 ml Q30M PRN IV Hypoglycemia 10/17/18 14:45 11/10/18 13:44 Dextrose (Dextrose 50%) 50 ml Q30M PRN IV Hypoglycemia 10/17/18 14:45 11/10/18 13:44 Digoxin (Lanoxin) 0.125 mg QOD NG 10/19/18 09:00 11/15/18 08:59 10/27/18 09:34 Diphenhydramine HCl (Benadryl) 25 mg Q6H PRN IVP Itching 10/17/18 14:30 11/08/18 14:29 Furosemide (Lasix) 40 mg DAILY IV 10/23/18 09:45 11/22/18 09:44 10/27/18 09:35 Insulin Aspart (NovoLOG) BEFORE MEALS AND HS SUBQ 10/17/18 16:30 11/10/18 16:29 10/27/18 05:35 Lactulose (Cephulac) 30 gm THREE TIMES A DAY NG 10/17/18 18:00 11/12/18 17:59 10/27/18 09:36 Midazolam HCl (Versed 2mg/2ml vial) 1 mg Q2H PRN IVP For Anxiety 10/17/18 14:30 11/11/18 14:29 Pantoprazole (Protonix) 40 mg DAILY IVP 10/27/18 09:00 11/09/18 20:59 10/27/18 09:35 Phytonadione (Vitamin K) 10 mg QWEEK SUBQ 11/02/18 09:00 12/02/18 08:59 Rifaximin (Xifaxan) 550 mg EVERY 12 HOURS ORAL 10/27/18 09:00 11/03/18 08:59 10/27/18 09:34 Spironolactone (Aldactone) 100 mg DAILY ORAL 10/27/18 09:00 11/22/18 09:44 10/27/18 09:34 Robert Gipson MD Oct 27, 2018 10:34
--- NOTE | 2018-10-27 11:36 | Surgery Progress Note ---
Surgery Progress Note Subjective Additional Comments slowly tolerating diet with assistance. labs okay. stable. Objective Last 24 Hour Vital Signs Date Time Temp Pulse Resp B/P (MAP) Pulse Ox O2 Delivery O2 Flow Rate FiO2 10/27/18 11:15 110 20 99 Nasal Cannula 2.0 28 10/27/18 11:03 112 22 97 Nasal Cannula 2.0 28 10/27/18 09:34 115 10/27/18 08:00 98.6 115 24 134/71 (92) 98 10/27/18 08:00 107 10/27/18 08:00 Nasal Cannula 2.0 10/27/18 07:32 107 20 98 Nasal Cannula 2.0 28 10/27/18 07:22 97 Nasal Cannula 2.0 28 10/27/18 07:22 Nasal Cannula 2.0 28 10/27/18 07:22 106 22 97 Nasal Cannula 2.0 28 10/27/18 04:00 98.2 108 20 125/70 (88) 97 10/27/18 04:00 105 10/27/18 04:00 Nasal Cannula 2.0 10/27/18 03:09 113 20 100 Nasal Cannula 2.0 28 10/27/18 02:59 106 20 98 Nasal Cannula 2.0 28 10/27/18 00:00 108 10/27/18 00:00 99.6 107 24 127/62 (83) 100 10/27/18 00:00 Nasal Cannula 2.0 10/26/18 23:25 110 20 100 Nasal Cannula 2.0 28 10/26/18 23:15 108 20 98 Nasal Cannula 2.0 28 10/26/18 20:00 108 10/26/18 20:00 98.4 113 24 134/71 (92) 100 10/26/18 20:00 Nasal Cannula 2.0 10/26/18 19:43 113 18 99 Nasal Cannula 2.0 28 10/26/18 19:32 Nasal Cannula 2.0 28 10/26/18 19:32 98 Nasal Cannula 2.0 28 10/26/18 19:28 111 20 99 Nasal Cannula 2.0 28 10/26/18 16:00 99.4 119 22 132/72 (92) 96 10/26/18 16:00 Nasal Cannula 2.0 10/26/18 15:32 119 10/26/18 15:03 106 18 100 Nasal Cannula 2.0 28 10/26/18 14:54 109 24 97 Nasal Cannula 2.0 28 10/26/18 12:00 118 10/26/18 12:00 Nasal Cannula 2.0 10/26/18 12:00 98.6 115 21 130/75 (93) 98 I&O Intake and Output 10/26/18 10/27/18 19:00 07:00 Intake Total 1225 ml Output Total 1200 ml 800 ml Balance 25 ml -800 ml Intake Oral 100 ml IV Total 1125 ml Output Urine Total 900 ml 300 ml Stool Total 300 ml 500 ml Dressing: other Wound: other Drains: other Cardiovascular: RSR Respiratory: clear, decreased breath sounds Abdomen: soft, non-tender, present bowel sounds, other Extremities: no tenderness, no cyanosis Laboratory Tests Test 10/26/18 13:00 White Blood Count 10.8 K/UL (4.8-10.8) Red Blood Count 2.91 M/UL (4.20-5.40) L Hemoglobin 8.9 G/DL (12.0-16.0) L Hematocrit 27.7 % (37.0-47.0) L Mean Corpuscular Volume 95 FL (80-99) Mean Corpuscular Hemoglobin 30.7 PG (27.0-31.0) Mean Corpuscular Hemoglobin Concent 32.2 G/DL (32.0-36.0) Red Cell Distribution Width 23.5 % (11.6-14.8) H Platelet Count 108 K/UL (150-450) L Mean Platelet Volume 6.1 FL (6.5-10.1) L Neutrophils (%) (Auto) 77.2 % (45.0-75.0) H Lymphocytes (%) (Auto) 10.9 % (20.0-45.0) L Monocytes (%) (Auto) 6.9 % (1.0-10.0) Eosinophils (%) (Auto) 3.5 % (0.0-3.0) H Basophils (%) (Auto) 1.5 % (0.0-2.0) Plan Problems: (1) Multiple injuries due to trauma (2) Sepsis Assessment & Plan: Labs noted lactic acidosis improved with resuscitation CT findings: Limited assessment of the GI tract, due to lack of enteric contrast administration. Exam is also limited due to patient motion artifact and lack of IV contrast administration Evidence of hepatic cirrhosis Small amount of ascites, likely related to the above Surgically absent gallbladder Bilateral basilar pulmonary parenchymal atelectatic changes and possible patchy consolidation Minimal edema of the bilateral flank subcutaneous fat Other findings as noted, including degenerative spondylosis, right hepatic lobe capsular calcification, Quiroz catheter has made a great improvement. denies abd pain. labs improved. decompensated liver cirrhosis LFT's abnormal leukocytosis overall improved but prognosis still guarded Limited assessment of the GI tract, due to lack of enteric contrast administration Abdominal ascites, increased in extent since prior study Increased edema of the subcutaneous fat, since previous study Hepatic surface nodularity, consistent with cirrhosis, also previously reported Borderline splenomegaly Bilateral basilar pulmonary patchy consolidation and atelectasis as well as some congestion. Findings as noted, including degenerative spondylosis, PICC, Quiroz catheter, rectal tube, nasogastric tube CT chest noted ng tube removed Continue with p.o. diet. Hold on TPN. -iv fluids -iv abx -trend labs will follow with recs thank you (3) Liver cirrhosis Josh Samuel Oct 27, 2018 11:36
[2018-10-27 12:00] VITALS: BP 152/82
--- NOTE | 2018-10-27 15:04 | Nephrology Progress Note ---
Assessment/Plan Problem List: (1) JONNATHAN (acute kidney injury) Assessment: resolving (2) Shock liver (3) Septic shock (4) Respiratory disorder with ventilator dependence Assessment - Acute Oliguric Renal Failure Cr down to 1.1 - Respiratory disorder with s/p mechanical ventilator - Septic shock , Leukocytosis resolved - Pneumonia - Liver cirrhosis - Obese - Anemia . Plan no labs today mag IV as needed transfused 2 units previously down on IV fluid K and Phos IV as needed Hemodynamic support Pulmunary support Monitor renal parameters avoid nephrotoxics as best as possible per orders discussed with RN Subjective ROS Limited/Unobtainable: No Constitutional: Reports: malaise Objective Objective Last 24 Hour Vital Signs Date Time Temp Pulse Resp B/P (MAP) Pulse Ox O2 Delivery O2 Flow Rate FiO2 10/27/18 12:00 119 10/27/18 11:15 110 20 99 Nasal Cannula 2.0 28 10/27/18 11:03 112 22 97 Nasal Cannula 2.0 28 10/27/18 09:34 115 10/27/18 08:00 98.6 115 24 134/71 (92) 98 10/27/18 08:00 107 10/27/18 08:00 Nasal Cannula 2.0 10/27/18 07:32 107 20 98 Nasal Cannula 2.0 28 10/27/18 07:22 97 Nasal Cannula 2.0 28 10/27/18 07:22 Nasal Cannula 2.0 28 10/27/18 07:22 106 22 97 Nasal Cannula 2.0 28 10/27/18 04:00 98.2 108 20 125/70 (88) 97 10/27/18 04:00 105 10/27/18 04:00 Nasal Cannula 2.0 10/27/18 03:09 113 20 100 Nasal Cannula 2.0 28 10/27/18 02:59 106 20 98 Nasal Cannula 2.0 28 10/27/18 00:00 108 10/27/18 00:00 99.6 107 24 127/62 (83) 100 10/27/18 00:00 Nasal Cannula 2.0 10/26/18 23:25 110 20 100 Nasal Cannula 2.0 28 10/26/18 23:15 108 20 98 Nasal Cannula 2.0 28 10/26/18 20:00 108 10/26/18 20:00 98.4 113 24 134/71 (92) 100 10/26/18 20:00 Nasal Cannula 2.0 10/26/18 19:43 113 18 99 Nasal Cannula 2.0 28 10/26/18 19:32 Nasal Cannula 2.0 28 10/26/18 19:32 98 Nasal Cannula 2.0 28 10/26/18 19:28 111 20 99 Nasal Cannula 2.0 28 10/26/18 16:00 99.4 119 22 132/72 (92) 96 10/26/18 16:00 Nasal Cannula 2.0 10/26/18 15:32 119 Intake and Output 10/26/18 10/27/18 19:00 07:00 Intake Total 1225 ml Output Total 1200 ml 800 ml Balance 25 ml -800 ml Intake Oral 100 ml IV Total 1125 ml Output Urine Total 900 ml 300 ml Stool Total 300 ml 500 ml Height (Feet): 5 Height (Inches): 1.00 Weight (Pounds): 247 General Appearance: no apparent distress Cardiovascular: tachycardia Respiratory/Chest: decreased breath sounds Abdomen: distended Objective NO CHANGE Alex Cueto MD Oct 27, 2018 15:04
--- NOTE | 2018-10-27 15:35 | Cardiac Electrophysiology PN ---
Assessment/Plan Assessment/Plan 1. Atrial fib with RVR. Off Beta janet or CA janet for hypotension. On Dig 0.125 qod. In SR Off Amiodarone for high LFTs and Bilirubin 7.3 2. S/P Septic shock. On broad spectrum IV antibiotic. 3. Troponin leak. The levels are flat and likely due to this patient's sepsis and septic shock. Her echocardiogram showed ejection fraction 60% to 65% and EKG showed no acute ischemic changes. 4. Nonsustained VT. Keep off Amio. EF 65% 5. Diabetes. 6. Renal failure. 7. Morbid obesity. 8. Dysphagia, NG removed. Feeding started 9. S/P Respiratory failure, Extubated 10. Cirrhosis, high Bilirubin and ascites. On Lasix 40 iv daily and Aldactone 25 daily DW RN Subjective Subjective Off restraints. No CP or SOB. Able to eat now but not enough Objective Last 24 Hour Vital Signs Date Time Temp Pulse Resp B/P (MAP) Pulse Ox O2 Delivery O2 Flow Rate FiO2 10/27/18 15:25 119 22 99 Nasal Cannula 2.0 28 10/27/18 12:00 119 10/27/18 11:15 110 20 99 Nasal Cannula 2.0 28 10/27/18 11:03 112 22 97 Nasal Cannula 2.0 28 10/27/18 09:34 115 10/27/18 08:00 98.6 115 24 134/71 (92) 98 10/27/18 08:00 107 10/27/18 08:00 Nasal Cannula 2.0 10/27/18 07:32 107 20 98 Nasal Cannula 2.0 28 10/27/18 07:22 97 Nasal Cannula 2.0 28 10/27/18 07:22 Nasal Cannula 2.0 28 10/27/18 07:22 106 22 97 Nasal Cannula 2.0 28 10/27/18 04:00 98.2 108 20 125/70 (88) 97 10/27/18 04:00 105 10/27/18 04:00 Nasal Cannula 2.0 10/27/18 03:09 113 20 100 Nasal Cannula 2.0 28 10/27/18 02:59 106 20 98 Nasal Cannula 2.0 28 10/27/18 00:00 108 10/27/18 00:00 99.6 107 24 127/62 (83) 100 10/27/18 00:00 Nasal Cannula 2.0 10/26/18 23:25 110 20 100 Nasal Cannula 2.0 28 10/26/18 23:15 108 20 98 Nasal Cannula 2.0 28 10/26/18 20:00 108 10/26/18 20:00 98.4 113 24 134/71 (92) 100 10/26/18 20:00 Nasal Cannula 2.0 10/26/18 19:43 113 18 99 Nasal Cannula 2.0 28 10/26/18 19:32 Nasal Cannula 2.0 28 10/26/18 19:32 98 Nasal Cannula 2.0 28 10/26/18 19:28 111 20 99 Nasal Cannula 2.0 28 10/26/18 16:00 99.4 119 22 132/72 (92) 96 10/26/18 16:00 Nasal Cannula 2.0 Intake and Output 10/26/18 10/27/18 19:00 07:00 Intake Total 1225 ml Output Total 1200 ml 800 ml Balance 25 ml -800 ml Intake Oral 100 ml IV Total 1125 ml Output Urine Total 900 ml 300 ml Stool Total 300 ml 500 ml Objective HEAD AND NECK: No JVD. LUNGS: Coarse rhonchi. CARDIOVASCULAR: Regular S1, S2 with no gallop or murmur. ABDOMEN: Obese. EXTREMITIES: No pitting edema. Sean Montanez MD Oct 27, 2018 15:35
[2018-10-27 16:00] VITALS: BP 139/67
--- NOTE | 2018-10-27 17:49 | Pulmonology Progress Note ---
Assessment/Plan Assessment/Plan PROBLEM LIST: 1. VDRF, EXTUBATED 10/16/18 2. Sepsis-resovled 3. Shock, hypovolemic and distributive-resolved 4. Multisystem organ failure-resolved 5. Lactic acidosis-resolved 6. Anion gap metabolic acidosis-resolved 7. JONNATHAN - BETTER 7. Abnormal LFTs, likely shock liver. 8. Abnormal troponin, likely demand ischemia. 9. Elevated D-dimer and PASP concerning for an acute PE 10. Obesity. 11. Diabetes. 12. Hypertension. 13. Chronic low back pain and sciatica. 14. Anemia/FOBT + 15. Thrombocytopenia 16. AFcRVR now in NSR 17. HyperNa TREATMENT PLAN: 1. Optimize pulmonary hygiene/mobilize as tolerated 2. Titrate down FiO2 to keep SaO2 < 90% 3. Observe off Abx per ID 4. IV lasix, PRN albumin 6. SSI, monitor BS 7. Follow up cards recs 8. GI and surgery recs, PRN para, NGT out, diet advanced, ? TPN (barely eating) , ENDOSCOPY?, trend LFT's 9. DVT prophylaxis: SCD 10. FC 11. cxr monday Subjective Constitutional: Reports: no symptoms HEENT: Repors: no symptoms Respiratory: Reports: no symptoms Cardiovascular: Reports: no symptoms Gastrointestinal/Abdominal: Reports: no symptoms Allergies: Coded Allergies: No Known Allergies (Unverified , 05/06/18) Subjective awake not confused not getting oob tolerating minimal po no cp nv or bleeding on o2 sats stable Objective Last 24 Hour Vital Signs Date Time Temp Pulse Resp B/P (MAP) Pulse Ox O2 Delivery O2 Flow Rate FiO2 10/27/18 15:36 118 10/27/18 15:35 107 20 99 Nasal Cannula 2.0 28 10/27/18 15:25 119 22 99 Nasal Cannula 2.0 28 10/27/18 12:00 99.0 121 26 152/82 (105) 96 10/27/18 12:00 119 10/27/18 12:00 Nasal Cannula 2.0 10/27/18 11:15 110 20 99 Nasal Cannula 2.0 28 10/27/18 11:03 112 22 97 Nasal Cannula 2.0 28 10/27/18 09:34 115 10/27/18 08:00 98.6 115 24 134/71 (92) 98 10/27/18 08:00 107 10/27/18 08:00 Nasal Cannula 2.0 10/27/18 07:32 107 20 98 Nasal Cannula 2.0 28 10/27/18 07:22 97 Nasal Cannula 2.0 28 10/27/18 07:22 Nasal Cannula 2.0 28 10/27/18 07:22 106 22 97 Nasal Cannula 2.0 28 10/27/18 04:00 98.2 108 20 125/70 (88) 97 10/27/18 04:00 105 10/27/18 04:00 Nasal Cannula 2.0 10/27/18 03:09 113 20 100 Nasal Cannula 2.0 28 10/27/18 02:59 106 20 98 Nasal Cannula 2.0 28 10/27/18 00:00 108 10/27/18 00:00 99.6 107 24 127/62 (83) 100 10/27/18 00:00 Nasal Cannula 2.0 10/26/18 23:25 110 20 100 Nasal Cannula 2.0 28 10/26/18 23:15 108 20 98 Nasal Cannula 2.0 28 10/26/18 20:00 108 10/26/18 20:00 98.4 113 24 134/71 (92) 100 10/26/18 20:00 Nasal Cannula 2.0 10/26/18 19:43 113 18 99 Nasal Cannula 2.0 28 10/26/18 19:32 Nasal Cannula 2.0 28 10/26/18 19:32 98 Nasal Cannula 2.0 28 10/26/18 19:28 111 20 99 Nasal Cannula 2.0 28 Intake and Output 10/26/18 10/27/18 19:00 07:00 Intake Total 1225 ml Output Total 1200 ml 800 ml Balance 25 ml -800 ml Intake Oral 100 ml IV Total 1125 ml Output Urine Total 900 ml 300 ml Stool Total 300 ml 500 ml General Appearance: WD/WN Respiratory/Chest: rhonchi Cardiovascular: normal rate, regular rhythm, edema Abdomen: soft, non tender, no organomegaly Skin: no rash Neurologic/Psychiatric: alert, responsive Lymphatic: no neck adenopathy Current Medications Medications (Trade) Dose Ordered Sig/Patricia Route PRN Reason Start Time Stop Time Status Last Admin Dose Admin Acyclovir (Zovirax) 400 mg EVERY 8 HOURS ORAL 10/22/18 10:15 11/01/18 10:14 10/27/18 14:57 Albuterol/ Ipratropium (Albuterol/ Ipratropium) 3 ml Q4HRT HHN 10/23/18 03:00 10/28/18 02:59 10/27/18 15:26 Chlorhexidine Gluconate (Nguyen-Hex 2%) 1 applic DAILY@2000 TOPIC 10/17/18 20:00 11/09/18 19:59 10/26/18 20:20 Dextrose (Dextrose 50%) 25 ml Q30M PRN IV Hypoglycemia 10/17/18 14:45 11/10/18 13:44 Dextrose (Dextrose 50%) 50 ml Q30M PRN IV Hypoglycemia 10/17/18 14:45 11/10/18 13:44 Digoxin (Lanoxin) 0.125 mg QOD NG 10/19/18 09:00 11/15/18 08:59 10/27/18 09:34 Diphenhydramine HCl (Benadryl) 25 mg Q6H PRN IVP Itching 10/17/18 14:30 11/08/18 14:29 Furosemide (Lasix) 40 mg DAILY IV 10/23/18 09:45 11/22/18 09:44 10/27/18 09:35 Insulin Aspart (NovoLOG) BEFORE MEALS AND HS SUBQ 10/17/18 16:30 11/10/18 16:29 10/27/18 17:21 Lactulose (Cephulac) 30 gm THREE TIMES A DAY NG 10/17/18 18:00 11/12/18 17:59 10/27/18 12:21 Midazolam HCl (Versed 2mg/2ml vial) 1 mg Q2H PRN IVP For Anxiety 10/17/18 14:30 11/11/18 14:29 Pantoprazole (Protonix) 40 mg DAILY IVP 10/27/18 09:00 11/09/18 20:59 10/27/18 09:35 Phytonadione (Vitamin K) 10 mg QWEEK SUBQ 11/02/18 09:00 12/02/18 08:59 Rifaximin (Xifaxan) 550 mg EVERY 12 HOURS ORAL 10/27/18 09:00 11/03/18 08:59 10/27/18 09:34 Spironolactone (Aldactone) 100 mg DAILY ORAL 10/27/18 09:00 11/22/18 09:44 10/27/18 09:34 Mere Burgos DO Oct 27, 2018 17:49
--- NOTE | 2018-10-27 19:27 | NUR ---
NURSE NOTES: Report received from melia PIERCE. PAtient seen in bed in semi nunez position. patient opens eyes, but is non verbal at this time. No S/Sx of of pain is noted via FLACC scale. Currently on oxygen 2L/min via NC spo02 is 100% at this time. PICC line to left upper arm is intact. Noted with carol ma and is intact. Bed is in lowest position. Call light is within easy reach while in room. Will continue to monitor. Addendum: 10/27/18 at 1930 by William Herman RN DISREGARD NOTE. WRONG CHART
--- NOTE | 2018-10-27 19:30 | NUR ---
NURSE NOTES: Report received from KARI Candelaria. Patient seen in bed in semi nunez position with oxygen via NC 2L/min, sp02 is 98%. Patient is alert, verbally responsive, able to make needs known. family members by bedside at this time. denies any pain. Noted with Rectal tube and medina cath and is intact. PICC line to left upper arm is intact. Bed is in lowest position. call light is within easy reach while in room. will continue to monitor.
[2018-10-27 20:00] VITALS: BP 129/64
[2018-10-27] MEDS: Dyna-Hex 2% Top Sol 2oz TOPIC SCH (20:15)
--- NOTE | 2018-10-27 20:29 | General Progress Note ---
Assessment/Plan Problem List: (1) Hypotension ICD Codes: I95.9 - Hypotension, unspecified SNOMED: 68977054 (2) Hyperglycemia ICD Codes: R73.9 - Hyperglycemia, unspecified SNOMED: 44074685 (3) Dyspnea ICD Codes: R06.00 - Dyspnea, unspecified SNOMED: 529288145 (4) Hypoxemia ICD Codes: R09.02 - Hypoxemia SNOMED: 362076378 (5) Contusion of left knee ICD Codes: S80.02XA - Contusion of left knee, initial encounter SNOMED: 53900307 (6) Sepsis ICD Codes: A41.9 - Sepsis, unspecified organism SNOMED: 67977786 (7) Septic shock ICD Codes: A41.9 - Sepsis, unspecified organism; R65.21 - Severe sepsis with septic shock SNOMED: 02080616 (8) Liver cirrhosis ICD Codes: K74.60 - Unspecified cirrhosis of liver SNOMED: 26236319 (9) Pneumonia ICD Codes: J18.9 - Pneumonia, unspecified organism SNOMED: 574656883 (10) Respiratory disorder with ventilator dependence ICD Codes: J98.9 - Respiratory disorder, unspecified; Z99.11 - Dependence on respirator [ventilator] status SNOMED: 82847357, 148263439 (11) Shock liver ICD Codes: K72.00 - Acute and subacute hepatic failure without coma SNOMED: 982837316 Status: progressing Assessment/Plan malnutriton needs snf placement abx per id vitals holding reviewed meds and labs and chart edema cihrrosis sepsis obesity morbid pna improving encephalopathy Subjective ROS Limited/Unobtainable: Yes Allergies: Coded Allergies: No Known Allergies (Unverified , 05/06/18) Objective Last 24 Hour Vital Signs Date Time Temp Pulse Resp B/P (MAP) Pulse Ox O2 Delivery O2 Flow Rate FiO2 10/27/18 19:31 116 22 99 Nasal Cannula 2.0 28 10/27/18 19:21 97 Nasal Cannula 2.0 28 10/27/18 19:21 Nasal Cannula 2.0 28 10/27/18 19:21 115 20 97 Nasal Cannula 2.0 28 10/27/18 16:00 Nasal Cannula 2.0 10/27/18 16:00 99.0 120 30 139/67 (91) 97 10/27/18 15:36 118 10/27/18 15:35 107 20 99 Nasal Cannula 2.0 28 10/27/18 15:25 119 22 99 Nasal Cannula 2.0 28 10/27/18 12:00 99.0 121 26 152/82 (105) 96 10/27/18 12:00 119 10/27/18 12:00 Nasal Cannula 2.0 10/27/18 11:15 110 20 99 Nasal Cannula 2.0 28 10/27/18 11:03 112 22 97 Nasal Cannula 2.0 28 10/27/18 09:34 115 10/27/18 08:00 98.6 115 24 134/71 (92) 98 10/27/18 08:00 107 10/27/18 08:00 Nasal Cannula 2.0 10/27/18 07:32 107 20 98 Nasal Cannula 2.0 28 10/27/18 07:22 97 Nasal Cannula 2.0 28 10/27/18 07:22 Nasal Cannula 2.0 28 10/27/18 07:22 106 22 97 Nasal Cannula 2.0 28 10/27/18 04:00 98.2 108 20 125/70 (88) 97 10/27/18 04:00 105 10/27/18 04:00 Nasal Cannula 2.0 10/27/18 03:09 113 20 100 Nasal Cannula 2.0 28 10/27/18 02:59 106 20 98 Nasal Cannula 2.0 28 10/27/18 00:00 108 10/27/18 00:00 99.6 107 24 127/62 (83) 100 10/27/18 00:00 Nasal Cannula 2.0 10/26/18 23:25 110 20 100 Nasal Cannula 2.0 28 10/26/18 23:15 108 20 98 Nasal Cannula 2.0 28 Intake and Output 10/26/18 10/27/18 19:00 07:00 Intake Total 1225 ml Output Total 1200 ml 800 ml Balance 25 ml -800 ml Intake Oral 100 ml IV Total 1125 ml Output Urine Total 900 ml 300 ml Stool Total 300 ml 500 ml Height (Feet): 5 Height (Inches): 1.00 Weight (Pounds): 247 General Appearance: lethargic, confused Neck: supple Abdomen: soft iMchael Kelley MD Oct 27, 2018 20:28
[2018-10-27] MEDS: Lactulose 20gm/30ml UDC ORAL SCH (21:06)
[2018-10-28] VITALS: BP 126/73
[2018-10-28] MEDS: DiphenhydrAMINE 50mg/ml Inj IVP PRN ×2 (01:43→19:22)
[2018-10-28 04:00] VITALS: BP 141/73
[2018-10-28] MEDS: Acyclovir 200mg Cap ORAL SCH (05:20)
[2018-10-28] MEDS: NovoLOG Insulin Flexpen SUBQ SCH ×4 (05:22→21:06)
[2018-10-28] MEDS: Lactulose 20gm/30ml UDC ORAL SCH ×3 (05:23→21:04)
--- NOTE | 2018-10-28 06:58 | NUR ---
NURSE NOTES: Report given to Shashi Vergara RN.
--- NOTE | 2018-10-28 06:59 | Pulmonology Progress Note ---
Assessment/Plan Assessment/Plan PROBLEM LIST: 1. VDRF, EXTUBATED 10/16/18 2. Sepsis-resolved 3. Shock, hypovolemic and distributive-resolved 4. Multisystem organ failure-resolved 5. Lactic acidosis-resolved 6. Anion gap metabolic acidosis-resolved 7. JONNATHAN - BETTER 7. Abnormal LFTs, likely shock liver. 8. Abnormal troponin, likely demand ischemia. 9. Elevated D-dimer and PASP concerning for an acute PE 10. Obesity. 11. Diabetes. 12. Hypertension. 13. Chronic low back pain and sciatica. 14. Anemia/FOBT + 15. Thrombocytopenia 16. AFcRVR now in NSR 17. HyperNa TREATMENT PLAN: 1. Optimize pulmonary hygiene/mobilize as tolerated 2. Titrate down FiO2 to keep SaO2 < 90% 3. Observe off Abx per ID 4. IV lasix, PRN albumin 6. SSI, monitor BS 7. Follow up cards recs 8. GI and surgery recs, PRN para, NGT out, diet advanced, ? TPN (barely eating) , ENDOSCOPY?, repeat LFT, increased today 9. DVT prophylaxis: SCD 10. FC 11. cxr Monday improving Subjective ROS Limited/Unobtainable: Yes Allergies: Coded Allergies: No Known Allergies (Unverified , 05/06/18) Subjective sleeping this am not confused not getting oob tolerating minimal po no cp nv or bleeding on o2 sats stable Objective Last 24 Hour Vital Signs Date Time Temp Pulse Resp B/P (MAP) Pulse Ox O2 Delivery O2 Flow Rate FiO2 10/28/18 04:00 Nasal Cannula 2.0 10/28/18 04:00 99.8 126 28 141/73 (95) 97 10/28/18 03:35 129 10/28/18 00:00 98.8 126 24 126/73 (90) 95 10/28/18 00:00 Nasal Cannula 2.0 10/27/18 23:37 125 10/27/18 23:07 118 20 97 Nasal Cannula 2.0 28 10/27/18 23:07 118 22 Nasal Cannula 2.0 28 10/27/18 22:57 116 20 97 Nasal Cannula 2.0 28 10/27/18 20:00 Nasal Cannula 2.0 10/27/18 20:00 99.0 115 24 129/64 (85) 95 10/27/18 19:31 116 22 99 Nasal Cannula 2.0 28 10/27/18 19:28 117 10/27/18 19:21 97 Nasal Cannula 2.0 28 10/27/18 19:21 Nasal Cannula 2.0 28 10/27/18 19:21 115 20 97 Nasal Cannula 2.0 28 10/27/18 16:00 Nasal Cannula 2.0 10/27/18 16:00 99.0 120 30 139/67 (91) 97 10/27/18 15:36 118 10/27/18 15:35 107 20 99 Nasal Cannula 2.0 28 10/27/18 15:25 119 22 99 Nasal Cannula 2.0 28 10/27/18 12:00 99.0 121 26 152/82 (105) 96 10/27/18 12:00 119 10/27/18 12:00 Nasal Cannula 2.0 10/27/18 11:15 110 20 99 Nasal Cannula 2.0 28 10/27/18 11:03 112 22 97 Nasal Cannula 2.0 28 10/27/18 09:34 115 10/27/18 08:00 98.6 115 24 134/71 (92) 98 10/27/18 08:00 107 10/27/18 08:00 Nasal Cannula 2.0 10/27/18 07:32 107 20 98 Nasal Cannula 2.0 28 10/27/18 07:22 97 Nasal Cannula 2.0 28 10/27/18 07:22 Nasal Cannula 2.0 28 10/27/18 07:22 106 22 97 Nasal Cannula 2.0 28 Intake and Output 10/27/18 10/28/18 19:00 07:00 Intake Total 240 ml 240 ml Output Total 1300 ml 475 ml Balance -1060 ml -235 ml Intake Oral 240 ml 240 ml Output Urine Total 700 ml 400 ml Stool Total 600 ml 75 ml General Appearance: WD/WN Respiratory/Chest: rhonchi Cardiovascular: normal rate, regular rhythm, edema Abdomen: soft, non tender, no organomegaly, non distended Neurologic/Psychiatric: alert Current Medications Medications (Trade) Dose Ordered Sig/Patricia Route PRN Reason Start Time Stop Time Status Last Admin Dose Admin Acyclovir (Zovirax) 400 mg EVERY 8 HOURS ORAL 10/22/18 10:15 11/01/18 10:14 10/28/18 05:20 Chlorhexidine Gluconate (Nguyen-Hex 2%) 1 applic DAILY@2000 TOPIC 10/17/18 20:00 11/09/18 19:59 10/27/18 20:15 Dextrose (Dextrose 50%) 25 ml Q30M PRN IV Hypoglycemia 10/17/18 14:45 11/10/18 13:44 Dextrose (Dextrose 50%) 50 ml Q30M PRN IV Hypoglycemia 10/17/18 14:45 11/10/18 13:44 Digoxin (Lanoxin) 0.125 mg QOD NG 10/19/18 09:00 11/15/18 08:59 10/27/18 09:34 Diphenhydramine HCl (Benadryl) 25 mg Q6H PRN IVP Itching 10/17/18 14:30 11/08/18 14:29 10/28/18 01:43 Furosemide (Lasix) 40 mg DAILY IV 10/23/18 09:45 11/22/18 09:44 10/27/18 09:35 Insulin Aspart (NovoLOG) BEFORE MEALS AND HS SUBQ 10/17/18 16:30 11/10/18 16:29 10/28/18 05:22 Lactulose (Cephulac) 30 gm EVERY 8 HOURS ORAL 10/27/18 22:00 11/12/18 17:59 10/28/18 05:23 Midazolam HCl (Versed 2mg/2ml vial) 1 mg Q2H PRN IVP For Anxiety 10/17/18 14:30 11/11/18 14:29 Pantoprazole (Protonix) 40 mg DAILY IVP 10/27/18 09:00 11/09/18 20:59 10/27/18 09:35 Phytonadione (Vitamin K) 10 mg QWEEK SUBQ 11/02/18 09:00 12/02/18 08:59 Rifaximin (Xifaxan) 550 mg EVERY 12 HOURS ORAL 10/27/18 09:00 11/03/18 08:59 10/27/18 20:15 Spironolactone (Aldactone) 100 mg DAILY ORAL 10/27/18 09:00 11/22/18 09:44 10/27/18 09:34 Mere Burgos DO Oct 28, 2018 06:59
--- NOTE | 2018-10-28 07:16 | NUR ---
NURSE NOTES: Received report from KARI Thomas. Patient is resting in bed, in stable condition. No s/sx of SOB, breathing is even and unlabored. Observed no presence of pain or discomfort at this time. Bed is in lowest position, brakes engaged. Call light is kept within easy reach. Will continue to monitor patient.
[2018-10-28 07:27] LABS: ANION GAP 11 mmol/L (5-15); BLOOD UREA NITROGEN 12 mg/dL (7-18); CALCIUM 9.8 MG/DL (8.5-10.1); CARBON DIOXIDE 23 MMOL/L (21-32); CHLORIDE 106 MMOL/L (98-107); CREATININE 1.4 MG/DL (0.55-1.30); POTASSIUM 3.4 MMOL/L (3.5-5.1); SODIUM 140 MMOL/L (136-145)
[2018-10-28 07:29] LABS: ALANINE AMINOTRANSFERASE 106 U/L (12-78); ALBUMIN 2.2 G/DL (3.4-5.0); ALKALINE PHOSPHATASE 409 U/L (46-116); ASPARTATE AMINO TRANSFERASE 99 U/L (15-37); BILIRUBIN,DIRECT 7.6 MG/DL (0.0-0.3); BILIRUBIN,TOTAL 10.8 MG/DL (0.2-1.0); PHOSPHORUS 2.9 MG/DL (2.5-4.9)
[2018-10-28 07:32] LABS: HEMATOCRIT 30.3 % (37.0-47.0); HEMOGLOBIN 10.1 G/DL (12.0-16.0); MEAN CORPUSCULAR VOLUME 94 FL (80-99); PLATELET COUNT 90 K/UL (150-450); RED BLOOD COUNT 3.22 M/UL (4.20-5.40); RED CELL DISTRIBUTION WIDTH 23.4 % (11.6-14.8); WHITE BLOOD COUNT 12.2 K/UL (4.8-10.8)
[2018-10-28 08:00] VITALS: BP 135/69
[2018-10-28] MEDS: Spironolactone 50mg tab ORAL SCH (08:12)
[2018-10-28] MEDS: Pantoprazole Inj IVP SCH (08:13)
--- NOTE | 2018-10-28 10:36 | Infectious Diseases Prog Note ---
Assessment/Plan Assessment/Plan A: 1. Septic Shock resolved.culture are negative so far 2. aspiration pneumonia. 3. acute renal failure , resolved 4. Diabetes mellitus. 5. Obesity. 6. Lactic acidosis. 7. Anemia.s/p transfusion 8. Cirrhosis with ascites 9. Enteritis, ileus resolved 10. Leukocytosis improving 11. GI bleeding 12. labial herpes RECOMMENDATION: Discontinue PO Acyclovir Poor custodial prognosis Case was D/W GI specialist Subjective ROS Limited/Unobtainable: Yes Constitutional: Reports: no symptoms Respiratory: Reports: dry cough Gastrointestinal/Abdominal: Reports: diarrhea Musculoskeletal: Reports: no symptoms Allergies: Coded Allergies: No Known Allergies (Unverified , 05/06/18) Objective Vital Signs Last 24 Hour Vital Signs Date Time Temp Pulse Resp B/P (MAP) Pulse Ox O2 Delivery O2 Flow Rate FiO2 10/28/18 08:00 123 10/28/18 08:00 Nasal Cannula 2.0 10/28/18 08:00 98.9 122 24 135/69 (91) 96 10/28/18 04:00 Nasal Cannula 2.0 10/28/18 04:00 99.8 126 28 141/73 (95) 97 10/28/18 03:35 129 10/28/18 00:00 98.8 126 24 126/73 (90) 95 10/28/18 00:00 Nasal Cannula 2.0 10/27/18 23:37 125 10/27/18 23:07 118 20 97 Nasal Cannula 2.0 28 10/27/18 23:07 118 22 Nasal Cannula 2.0 28 10/27/18 22:57 116 20 97 Nasal Cannula 2.0 28 10/27/18 20:00 Nasal Cannula 2.0 10/27/18 20:00 99.0 115 24 129/64 (85) 95 10/27/18 19:31 116 22 99 Nasal Cannula 2.0 28 10/27/18 19:28 117 10/27/18 19:21 97 Nasal Cannula 2.0 28 10/27/18 19:21 Nasal Cannula 2.0 28 10/27/18 19:21 115 20 97 Nasal Cannula 2.0 28 10/27/18 16:00 Nasal Cannula 2.0 10/27/18 16:00 99.0 120 30 139/67 (91) 97 3/16/19 15:36 118 10/27/18 15:35 107 20 99 Nasal Cannula 2.0 28 10/27/18 15:25 119 22 99 Nasal Cannula 2.0 28 10/27/18 12:00 99.0 121 26 152/82 (105) 96 10/27/18 12:00 119 10/27/18 12:00 Nasal Cannula 2.0 10/27/18 11:15 110 20 99 Nasal Cannula 2.0 28 10/27/18 11:03 112 22 97 Nasal Cannula 2.0 28 Height (Feet): 5 Height (Inches): 1.00 Weight (Pounds): 242 HEENT: mucous membranes moist Respiratory/Chest: lungs clear Cardiovascular: normal rate, other - PICC line Abdomen: soft, non tender, other - Rectal tube Extremities: other - edema of legs Neurologic/Psychiatric: alert, responsive Laboratory Tests Test 10/28/18 06:42 White Blood Count 12.2 K/UL (4.8-10.8) H Red Blood Count 3.22 M/UL (4.20-5.40) L Hemoglobin 10.1 G/DL (12.0-16.0) L Hematocrit 30.3 % (37.0-47.0) L Mean Corpuscular Volume 94 FL (80-99) Mean Corpuscular Hemoglobin 31.2 PG (27.0-31.0) H Mean Corpuscular Hemoglobin Concent 33.2 G/DL (32.0-36.0) Red Cell Distribution Width 23.4 % (11.6-14.8) H Platelet Count 90 K/UL (150-450) L Mean Platelet Volume 6.3 FL (6.5-10.1) L Neutrophils (%) (Auto) % (45.0-75.0) Lymphocytes (%) (Auto) % (20.0-45.0) Monocytes (%) (Auto) % (1.0-10.0) Eosinophils (%) (Auto) % (0.0-3.0) Basophils (%) (Auto) % (0.0-2.0) Differential Total Cells Counted 100 Neutrophils % (Manual) 85 % (45-75) H Lymphocytes % (Manual) 8 % (20-45) L Monocytes % (Manual) 3 % (1-10) Eosinophils % (Manual) 3 % (0-3) Basophils % (Manual) 1 % (0-2) Platelet Estimate Pending Platelet Morphology Pending Hypochromasia 1+ Anisocytosis 2+ Sodium Level 140 MMOL/L (136-145) Potassium Level 3.4 MMOL/L (3.5-5.1) L Chloride Level 106 MMOL/L (98-107) Carbon Dioxide Level 23 MMOL/L (21-32) Anion Gap 11 mmol/L (5-15) Blood Urea Nitrogen 12 mg/dL (7-18) Creatinine 1.4 MG/DL (0.55-1.30) H Estimat Glomerular Filtration Rate 38.7 mL/min (>60) Glucose Level 244 MG/DL (74-106) H Uric Acid 7.6 MG/DL (2.6-7.2) H Calcium Level 9.8 MG/DL (8.5-10.1) Phosphorus Level 2.9 MG/DL (2.5-4.9) Magnesium Level 1.6 MG/DL (1.8-2.4) L Total Bilirubin 10.8 MG/DL (0.2-1.0) H Direct Bilirubin 7.6 MG/DL (0.0-0.3) H Aspartate Amino Transf (AST/SGOT) 99 U/L (15-37) H Alanine Aminotransferase (ALT/SGPT) 106 U/L (12-78) H Alkaline Phosphatase 409 U/L (46-116) H Total Protein 6.2 G/DL (6.4-8.2) L Albumin 2.2 G/DL (3.4-5.0) L Current Medications Medications (Trade) Dose Ordered Sig/Patricia Route PRN Reason Start Time Stop Time Status Last Admin Dose Admin Acyclovir (Zovirax) 400 mg EVERY 8 HOURS ORAL 10/22/18 10:15 11/01/18 10:14 10/28/18 05:20 Chlorhexidine Gluconate (Nguyen-Hex 2%) 1 applic DAILY@1999 TOPIC 10/17/18 20:00 11/09/18 19:59 10/27/18 20:15 Dextrose (Dextrose 50%) 25 ml Q30M PRN IV Hypoglycemia 10/17/18 14:45 11/10/18 13:44 Dextrose (Dextrose 50%) 50 ml Q30M PRN IV Hypoglycemia 10/17/18 14:45 11/10/18 13:44 Digoxin (Lanoxin) 0.125 mg QOD NG 10/19/18 09:00 11/15/18 08:59 10/27/18 09:34 Diphenhydramine HCl (Benadryl) 25 mg Q6H PRN IVP Itching 10/17/18 14:30 11/08/18 14:29 10/28/18 01:43 Furosemide (Lasix) 40 mg DAILY IV 10/23/18 09:45 11/22/18 09:44 10/28/18 08:12 Insulin Aspart (NovoLOG) BEFORE MEALS AND HS SUBQ 10/17/18 16:30 11/10/18 16:29 10/28/18 05:22 Lactulose (Cephulac) 30 gm EVERY 8 HOURS ORAL 10/27/18 22:00 11/12/18 17:59 10/28/18 05:23 Midazolam HCl (Versed 2mg/2ml vial) 1 mg Q2H PRN IVP For Anxiety 10/17/18 14:30 11/11/18 14:29 Pantoprazole (Protonix) 40 mg DAILY IVP 10/27/18 09:00 11/09/18 20:59 10/28/18 08:13 Phytonadione (Vitamin K) 10 mg QWEEK SUBQ 11/02/18 09:00 12/02/18 08:59 Rifaximin (Xifaxan) 550 mg EVERY 12 HOURS ORAL 10/27/18 09:00 11/03/18 08:59 10/28/18 08:12 Spironolactone (Aldactone) 100 mg DAILY ORAL 10/27/18 09:00 11/22/18 09:44 10/28/18 08:12 Wesley Akers MD Oct 28, 2018 10:36
--- NOTE | 2018-10-28 10:47 | General Progress Note ---
Assessment/Plan Problem List: (1) CAD (coronary artery disease) ICD Codes: I25.10 - Atherosclerotic heart disease of [place] coronary artery without angina pectoris SNOMED: 01346167 (2) RI (3) Thrombocytopenia ICD Codes: D69.6 - Thrombocytopenia, unspecified SNOMED: 650049766 (4) Respiratory failure ICD Codes: J96.90 - Respiratory failure, unspecified, unspecified whether with hypoxia or hypercapnia SNOMED: 065208422 (5) Dysphagia ICD Codes: R13.10 - Dysphagia, unspecified SNOMED: 05486791, 752110253 (6) Elevated CEA ICD Codes: R97.0 - Elevated carcinoembryonic antigen [CEA] SNOMED: 928008969 (7) Shock liver ICD Codes: K72.00 - Acute and subacute hepatic failure without coma SNOMED: 486399711 (8) Liver cirrhosis ICD Codes: K74.60 - Unspecified cirrhosis of liver SNOMED: 62826551 (9) Normocytic anemia ICD Codes: D64.9 - Anemia, unspecified SNOMED: 095407398 Assessment/Plan ppi to daily monitor H&H fu LFTS>> work up for elevated CEA when more stable lasix aldactone 100 fu labs xifaxan and lactulose reglan>>will dc albumin Subjective ROS Limited/Unobtainable: No Allergies: Coded Allergies: No Known Allergies (Unverified , 05/06/18) Subjective G tube was removed yesterday and patient started on diet. Patient tolerating the liquid portion of her diet well but only tolerated 10% of the solid portion Objective Last 24 Hour Vital Signs Date Time Temp Pulse Resp B/P (MAP) Pulse Ox O2 Delivery O2 Flow Rate FiO2 10/28/18 08:00 123 10/28/18 08:00 Nasal Cannula 2.0 10/28/18 08:00 98.9 122 24 135/69 (91) 96 10/28/18 04:00 Nasal Cannula 2.0 10/28/18 04:00 99.8 126 28 141/73 (95) 97 10/28/18 03:35 129 10/28/18 00:00 98.8 126 24 126/73 (90) 95 10/28/18 00:00 Nasal Cannula 2.0 10/27/18 23:37 125 10/27/18 23:07 118 20 97 Nasal Cannula 2.0 28 10/27/18 23:07 118 22 Nasal Cannula 2.0 28 10/27/18 22:57 116 20 97 Nasal Cannula 2.0 28 10/27/18 20:00 Nasal Cannula 2.0 10/27/18 20:00 99.0 115 24 129/64 (85) 95 10/27/18 19:31 116 22 99 Nasal Cannula 2.0 28 10/27/18 19:28 117 10/27/18 19:21 97 Nasal Cannula 2.0 28 10/27/18 19:21 Nasal Cannula 2.0 28 10/27/18 19:21 115 20 97 Nasal Cannula 2.0 28 10/27/18 16:00 Nasal Cannula 2.0 10/27/18 16:00 99.0 120 30 139/67 (91) 97 10/27/18 15:36 118 10/27/18 15:35 107 20 99 Nasal Cannula 2.0 28 10/27/18 15:25 119 22 99 Nasal Cannula 2.0 28 10/27/18 12:00 99.0 121 26 152/82 (105) 96 10/27/18 12:00 119 10/27/18 12:00 Nasal Cannula 2.0 10/27/18 11:15 110 20 99 Nasal Cannula 2.0 28 10/27/18 11:03 112 22 97 Nasal Cannula 2.0 28 Intake and Output 10/27/18 10/28/18 19:00 07:00 Intake Total 240 ml 240 ml Output Total 1300 ml 475 ml Balance -1060 ml -235 ml Intake Oral 240 ml 240 ml Output Urine Total 700 ml 400 ml Stool Total 600 ml 75 ml Laboratory Tests 10/28/18 06:42: White Blood Count 12.2H, Red Blood Count 3.22L, Hemoglobin 10.1L, Hematocrit 30.3L, Mean Corpuscular Volume 94, Mean Corpuscular Hemoglobin 31.2H, Mean Corpuscular Hemoglobin Concent 33.2, Red Cell Distribution Width 23.4H, Platelet Count 90L, Mean Platelet Volume 6.3L, Neutrophils (%) (Auto) , Lymphocytes (%) (Auto) , Monocytes (%) (Auto) , Eosinophils (%) (Auto) , Basophils (%) (Auto) , Differential Total Cells Counted 100, Neutrophils % ( Manual) 85H, Lymphocytes % (Manual) 8L, Monocytes % (Manual) 3, Eosinophils % ( Manual) 3, Basophils % (Manual) 1, Platelet Estimate [Pending], Platelet Morphology [Pending], Hypochromasia 1+, Anisocytosis 2+, Sodium Level 140, Potassium Level 3.4L, Chloride Level 106, Carbon Dioxide Level 23, Anion Gap 11 , Blood Urea Nitrogen 12, Creatinine 1.4H, Estimat Glomerular Filtration Rate 38.7, Glucose Level 244H, Uric Acid 7.6H, Calcium Level 9.8, Phosphorus Level 2.9, Magnesium Level 1.6L, Total Bilirubin 10.8H, Direct Bilirubin 7.6H, Aspartate Amino Transf (AST/SGOT) 99H, Alanine Aminotransferase (ALT/SGPT) 106H , Alkaline Phosphatase 409H, Total Protein 6.2L, Albumin 2.2L Height (Feet): 5 Height (Inches): 1.00 Weight (Pounds): 242 General Appearance: no apparent distress EENT: normal ENT inspection Neck: normal alignment Cardiovascular: normal rate Respiratory/Chest: decreased breath sounds Abdomen: soft, decreased bowel sounds Extremities: non-tender Samuel Reynolds MD Oct 28, 2018 10:47
[2018-10-28 12:00] VITALS: BP 135/68
--- NOTE | 2018-10-28 13:10 | NUR ---
NURSE NOTES: Dr. Cueto at nurse station made aware of patient's potassium level of 3.4 and magnesium level of 1.6. Dr. Cueto acknowledged and stated will put orders in. Noted. Will continue to monitor patient.
[2018-10-28 15:52] VITALS: BP 132/60
--- NOTE | 2018-10-28 18:32 | Nephrology Progress Note ---
Assessment/Plan Problem List: (1) JONNATHAN (acute kidney injury) Assessment: resolving (2) Shock liver (3) Septic shock (4) Respiratory disorder with ventilator dependence Assessment - Acute Oliguric Renal Failure Cr down to 1.1 - Respiratory disorder with s/p mechanical ventilator - Septic shock , Leukocytosis resolved - Pneumonia - Liver cirrhosis - Obese - Anemia . Plan PO K mag IV as needed transfused 2 units previously down on IV fluid K and Phos as needed Hemodynamic support Pulmonary support Monitor renal parameters avoid nephrotoxics as best as possible per orders discussed with RN Subjective ROS Limited/Unobtainable: No Constitutional: Reports: malaise Objective Objective Last 24 Hour Vital Signs Date Time Temp Pulse Resp B/P (MAP) Pulse Ox O2 Delivery O2 Flow Rate FiO2 10/28/18 16:00 Nasal Cannula 2.0 10/28/18 16:00 115 10/28/18 15:52 98.5 114 24 132/60 (84) 97 10/28/18 12:00 100.0 120 24 135/68 (90) 97 10/28/18 12:00 Nasal Cannula 2.0 10/28/18 11:17 121 10/28/18 08:00 123 10/28/18 08:00 Nasal Cannula 2.0 10/28/18 08:00 98.9 122 24 135/69 (91) 96 10/28/18 04:00 Nasal Cannula 2.0 10/28/18 04:00 99.8 126 28 141/73 (95) 97 10/28/18 03:35 129 10/28/18 00:00 98.8 126 24 126/73 (90) 95 10/28/18 00:00 Nasal Cannula 2.0 10/27/18 23:37 125 10/27/18 23:07 118 20 97 Nasal Cannula 2.0 28 10/27/18 23:07 118 22 Nasal Cannula 2.0 28 10/27/18 22:57 116 20 97 Nasal Cannula 2.0 28 10/27/18 20:00 Nasal Cannula 2.0 10/27/18 20:00 99.0 115 24 129/64 (85) 95 10/27/18 19:31 116 22 99 Nasal Cannula 2.0 28 10/27/18 19:28 117 10/27/18 19:21 97 Nasal Cannula 2.0 28 10/27/18 19:21 Nasal Cannula 2.0 28 10/27/18 19:21 115 20 97 Nasal Cannula 2.0 28 Intake and Output 10/27/18 10/28/18 19:00 07:00 Intake Total 240 ml 240 ml Output Total 1300 ml 475 ml Balance -1060 ml -235 ml Intake Oral 240 ml 240 ml Output Urine Total 700 ml 400 ml Stool Total 600 ml 75 ml Laboratory Tests 10/28/18 06:42: White Blood Count 12.2H, Red Blood Count 3.22L, Hemoglobin 10.1L, Hematocrit 30.3L, Mean Corpuscular Volume 94, Mean Corpuscular Hemoglobin 31.2H, Mean Corpuscular Hemoglobin Concent 33.2, Red Cell Distribution Width 23.4H, Platelet Count 90L, Mean Platelet Volume 6.3L, Neutrophils (%) (Auto) , Lymphocytes (%) (Auto) , Monocytes (%) (Auto) , Eosinophils (%) (Auto) , Basophils (%) (Auto) , Differential Total Cells Counted 100, Neutrophils % ( Manual) 85H, Lymphocytes % (Manual) 8L, Monocytes % (Manual) 3, Eosinophils % ( Manual) 3, Basophils % (Manual) 1, Band Neutrophils 0, Platelet Estimate DecreasedL, Platelet Morphology Normal, Hypochromasia 1+, Anisocytosis 2+, Sodium Level 140, Potassium Level 3.4L, Chloride Level 106, Carbon Dioxide Level 23, Anion Gap 11, Blood Urea Nitrogen 12, Creatinine 1.4H, Estimat Glomerular Filtration Rate 38.7, Glucose Level 244H, Uric Acid 7.6H, Calcium Level 9.8, Phosphorus Level 2.9, Magnesium Level 1.6L, Total Bilirubin 10.8H, Direct Bilirubin 7.6H, Aspartate Amino Transf (AST/SGOT) 99H, Alanine Aminotransferase (ALT/SGPT) 106H, Alkaline Phosphatase 409H, Total Protein 6.2L , Albumin 2.2L Height (Feet): 5 Height (Inches): 1.00 Weight (Pounds): 242 General Appearance: no apparent distress, lethargic Cardiovascular: tachycardia Respiratory/Chest: decreased breath sounds Abdomen: distended Objective NO CHANGE Alex Cueto MD Oct 28, 2018 18:32
--- NOTE | 2018-10-28 18:57 | NUR ---
NURSE NOTES: Report received from Shashi Go RN. Patient seen in bed in semi nunez position with oxygen via NC 2L/min, sp02 is 98%. Patient is alert, verbally responsive, able to make needs known. denies any pain at this time. Family members are at bedside with patient at this time. Noted with Rectal tube and medina cath and is intact. PICC line to left upper arm is intact. Bed is in lowest position. call light is within easy reach while in room. will continue to monitor.
--- NOTE | 2018-10-28 19:11 | NUR ---
HAND-OFF: Report given to KARI Thomas.
[2018-10-28] MEDS: Dyna-Hex 2% Top Sol 2oz TOPIC SCH (19:22)
[2018-10-28] MEDS ORDERED: Tubing IV Secondary IV ONE (19:36)
[2018-10-28] MEDS ORDERED: NS 500ML ONE (19:36)
[2018-10-28 20:00] VITALS: BP 130/64
--- NOTE | 2018-10-28 21:39 | General Progress Note ---
Assessment/Plan Problem List: (1) Hypotension ICD Codes: I95.9 - Hypotension, unspecified SNOMED: 15643970 (2) Hyperglycemia ICD Codes: R73.9 - Hyperglycemia, unspecified SNOMED: 16228811 (3) Dyspnea ICD Codes: R06.00 - Dyspnea, unspecified SNOMED: 430422295 (4) Hypoxemia ICD Codes: R09.02 - Hypoxemia SNOMED: 698126397 (5) Contusion of left knee ICD Codes: S80.02XA - Contusion of left knee, initial encounter SNOMED: 63595008 (6) Sepsis ICD Codes: A41.9 - Sepsis, unspecified organism SNOMED: 83735102 (7) Septic shock ICD Codes: A41.9 - Sepsis, unspecified organism; R65.21 - Severe sepsis with septic shock SNOMED: 97637379 (8) Liver cirrhosis ICD Codes: K74.60 - Unspecified cirrhosis of liver SNOMED: 05274134 (9) Pneumonia ICD Codes: J18.9 - Pneumonia, unspecified organism SNOMED: 758961385 (10) Respiratory disorder with ventilator dependence ICD Codes: J98.9 - Respiratory disorder, unspecified; Z99.11 - Dependence on respirator [ventilator] status SNOMED: 08306510, 121634117 (11) Shock liver ICD Codes: K72.00 - Acute and subacute hepatic failure without coma SNOMED: 092068339 Status: progressing Assessment/Plan still jaundice more alert oriented times one reviewed meds and labs and chart edema cihrrosis sepsis obesity morbid pna improving encephalopathy Subjective ROS Limited/Unobtainable: Yes Allergies: Coded Allergies: No Known Allergies (Unverified , 05/06/18) Objective Last 24 Hour Vital Signs Date Time Temp Pulse Resp B/P (MAP) Pulse Ox O2 Delivery O2 Flow Rate FiO2 10/28/18 20:00 Nasal Cannula 2.0 10/28/18 20:00 98.8 105 28 130/64 (86) 97 10/28/18 19:27 106 10/28/18 16:00 Nasal Cannula 2.0 10/28/18 16:00 115 10/28/18 15:52 98.5 114 24 132/60 (84) 97 10/28/18 12:00 100.0 120 24 135/68 (90) 97 10/28/18 12:00 Nasal Cannula 2.0 10/28/18 11:17 121 10/28/18 08:00 123 10/28/18 08:00 Nasal Cannula 2.0 10/28/18 08:00 98.9 122 24 135/69 (91) 96 10/28/18 04:00 Nasal Cannula 2.0 10/28/18 04:00 99.8 126 28 141/73 (95) 97 10/28/18 03:35 129 10/28/18 00:00 98.8 126 24 126/73 (90) 95 10/28/18 00:00 Nasal Cannula 2.0 10/27/18 23:37 125 10/27/18 23:07 118 20 97 Nasal Cannula 2.0 28 10/27/18 23:07 118 22 Nasal Cannula 2.0 28 10/27/18 22:57 116 20 97 Nasal Cannula 2.0 28 Intake and Output 10/27/18 10/28/18 19:00 07:00 Intake Total 240 ml 240 ml Output Total 1300 ml 475 ml Balance -1060 ml -235 ml Intake Oral 240 ml 240 ml Output Urine Total 700 ml 400 ml Stool Total 600 ml 75 ml Laboratory Tests 10/28/18 06:42: White Blood Count 12.2H, Red Blood Count 3.22L, Hemoglobin 10.1L, Hematocrit 30.3L, Mean Corpuscular Volume 94, Mean Corpuscular Hemoglobin 31.2H, Mean Corpuscular Hemoglobin Concent 33.2, Red Cell Distribution Width 23.4H, Platelet Count 90L, Mean Platelet Volume 6.3L, Neutrophils (%) (Auto) , Lymphocytes (%) (Auto) , Monocytes (%) (Auto) , Eosinophils (%) (Auto) , Basophils (%) (Auto) , Differential Total Cells Counted 100, Neutrophils % ( Manual) 85H, Lymphocytes % (Manual) 8L, Monocytes % (Manual) 3, Eosinophils % ( Manual) 3, Basophils % (Manual) 1, Band Neutrophils 0, Platelet Estimate DecreasedL, Platelet Morphology Normal, Hypochromasia 1+, Anisocytosis 2+, Sodium Level 140, Potassium Level 3.4L, Chloride Level 106, Carbon Dioxide Level 23, Anion Gap 11, Blood Urea Nitrogen 12, Creatinine 1.4H, Estimat Glomerular Filtration Rate 38.7, Glucose Level 244H, Uric Acid 7.6H, Calcium Level 9.8, Phosphorus Level 2.9, Magnesium Level 1.6L, Total Bilirubin 10.8H, Direct Bilirubin 7.6H, Aspartate Amino Transf (AST/SGOT) 99H, Alanine Aminotransferase (ALT/SGPT) 106H, Alkaline Phosphatase 409H, Total Protein 6.2L , Albumin 2.2L Height (Feet): 5 Height (Inches): 1.00 Weight (Pounds): 242 Neck: supple Cardiovascular: normal rate Abdomen: soft Michael Kelley MD Oct 28, 2018 21:39
--- NOTE | 2018-10-28 22:36 | General Progress Note ---
Assessment/Plan Assessment/Plan Assessment and Recs: # Leukocytosis/Elevated white blood cell count, unspecified likely related to underlying stress reaction, or underlying infection --> have reviewed peripheral smear and bandemia/neutrophilia noted --> continue antibiotics if they have been started by ID team (on zosyn at this time) --> monitor for resolution -->WBC trend: 14-->10-->15-->12-->11-->10-->8.6 # Thrombocytopenia - potential causes multifactorial, evaluate liver and viral etiologies to begin, also could be related to underlying medications patient has received. Hx of cirrhosis in the past noted on us --> Hep panel and HIV negative --> CT a/p show cirrhosis as well as us --> Peripheral smear ordered to evaluate for blasts /schistocytes is negative --> abx and other meds have been reviewed --> ok for ppx if plt >50k w/ either heparin or lovenox --> Transfuse if Plt < 20k and fever, or if Plt < 10k without fever --> HIT negative, hold off heparin -->Plt trend : 54-->92-->106-->113 # Anemia of iron deficiency as noted with low % sat and tibc elevated --> Anemia workup has been reviewed --> No evidence of hemolysis is noted, peripheral smear has been reviewed. --> Hgb goal >7. Transfuse prn. --> Iron IV X 5 days already given --> Medications have been reviewed # CEA of 10.5 --> Ct of abdomen/pelvis reviewed and is negative # Sepsis likely contributing to low plts --> on abx as needed # Shock, hypovolemic and distributive --> per id and pulm/cc care # Multisystem organ failure. # Lactic acidosis. # JONNATHAN. # Abnormal LFTs, likely shock liver. # Abnormal troponin, likely demand ischemia. # Obesity. # Respiratory failure on vent --> now extubated The timing of this note does not necessarily reflect the time of the patient was seen. Greatly appreciate consultation! Subjective Allergies: Coded Allergies: No Known Allergies (Unverified , 05/06/18) Subjective 10/12: Pt was seen in ICU on Vent and off pressors, developed atrial fib, wbc trending down to 13, plt trending down to 60 3: remains in the icu, monitoring labs, plts stabilizing, remains critically ill, cea elev 10/15: In ICU on Vent and off pressors, plt 62, no events 10/16 wbc trending up at 14,plt low at 48,weaning well from vent. no acute events , family at bedside 10/17: plts remain low, no events, weaned off vent, no complaints, off pressors 10/18: seen by bedside, wbc trending up at 15, plt low at 50, no events, needs video swallow. NGT 10/19: wbc remains elevated, plt 54, no acute distress reported 10/21: seen by bedside, still with lots of NG tube output, wbc 12, plt trending up 10/22: awake, alert,has high NG tube residual, wbc 11, no events 10/23: comfortable, wbc trending down, plt trending up , no events 10/24: Seen by bedside, leukocytosis resolved, no events 10/25: awake, comfortable, Surgery removed NGT, no events 3.15: NG tube was removed yesterday and patient started on diet, comfortable, no events, plt trending up 10/28: seen by bedside, lethargic, no events Objective Last 24 Hour Vital Signs Date Time Temp Pulse Resp B/P (MAP) Pulse Ox O2 Delivery O2 Flow Rate FiO2 10/28/18 20:00 Nasal Cannula 2.0 10/28/18 20:00 98.8 105 28 130/64 (86) 97 10/28/18 19:27 106 10/28/18 16:00 Nasal Cannula 2.0 10/28/18 16:00 115 10/28/18 15:52 98.5 114 24 132/60 (84) 97 10/28/18 12:00 100.0 120 24 135/68 (90) 97 10/28/18 12:00 Nasal Cannula 2.0 10/28/18 11:17 121 10/28/18 08:00 123 10/28/18 08:00 Nasal Cannula 2.0 10/28/18 08:00 98.9 122 24 135/69 (91) 96 10/28/18 04:00 Nasal Cannula 2.0 10/28/18 04:00 99.8 126 28 141/73 (95) 97 10/28/18 03:35 129 10/28/18 00:00 98.8 126 24 126/73 (90) 95 10/28/18 00:00 Nasal Cannula 2.0 10/27/18 23:37 125 10/27/18 23:07 118 20 97 Nasal Cannula 2.0 28 10/27/18 23:07 118 22 Nasal Cannula 2.0 28 10/27/18 22:57 116 20 97 Nasal Cannula 2.0 28 Intake and Output 10/27/18 10/28/18 19:00 07:00 Intake Total 240 ml 240 ml Output Total 1300 ml 475 ml Balance -1060 ml -235 ml Intake Oral 240 ml 240 ml Output Urine Total 700 ml 400 ml Stool Total 600 ml 75 ml Laboratory Tests 10/28/18 06:42: White Blood Count 12.2H, Red Blood Count 3.22L, Hemoglobin 10.1L, Hematocrit 30.3L, Mean Corpuscular Volume 94, Mean Corpuscular Hemoglobin 31.2H, Mean Corpuscular Hemoglobin Concent 33.2, Red Cell Distribution Width 23.4H, Platelet Count 90L, Mean Platelet Volume 6.3L, Neutrophils (%) (Auto) , Lymphocytes (%) (Auto) , Monocytes (%) (Auto) , Eosinophils (%) (Auto) , Basophils (%) (Auto) , Differential Total Cells Counted 100, Neutrophils % ( Manual) 85H, Lymphocytes % (Manual) 8L, Monocytes % (Manual) 3, Eosinophils % ( Manual) 3, Basophils % (Manual) 1, Band Neutrophils 0, Platelet Estimate DecreasedL, Platelet Morphology Normal, Hypochromasia 1+, Anisocytosis 2+, Sodium Level 140, Potassium Level 3.4L, Chloride Level 106, Carbon Dioxide Level 23, Anion Gap 11, Blood Urea Nitrogen 12, Creatinine 1.4H, Estimat Glomerular Filtration Rate 38.7, Glucose Level 244H, Uric Acid 7.6H, Calcium Level 9.8, Phosphorus Level 2.9, Magnesium Level 1.6L, Total Bilirubin 10.8H, Direct Bilirubin 7.6H, Aspartate Amino Transf (AST/SGOT) 99H, Alanine Aminotransferase (ALT/SGPT) 106H, Alkaline Phosphatase 409H, Total Protein 6.2L , Albumin 2.2L Height (Feet): 5 Height (Inches): 1.00 Weight (Pounds): 242 Objective PHYSICAL EXAMINATION: VITAL SIGNS: reviewed, saturating 98% on NC++, GENERAL: She is an obese female, confused. HEENT: Normocephalic and atraumatic. Oropharynx is clear with dry mucous membranes., NECK: Supple without lymphadenopathy or JVP. CHEST: Clear. HEART: Regular. ABDOMEN: Benign. EXTREMITIES: No cyanosis, clubbing, or edema. There are some ecchymoses in bilateral lower extremities. Kurtis Villagomez MD Oct 28, 2018 22:36
[2018-10-29] VITALS: BP 138/61
[2018-10-29 04:00] VITALS: BP 139/69
[2018-10-29 05:36] LABS: HEMATOCRIT 25.8 % (37.0-47.0); MEAN CORPUSCULAR VOLUME 97 FL (80-99); PLATELET COUNT 61 K/UL (150-450); RED BLOOD COUNT 2.66 M/UL (4.20-5.40); RED CELL DISTRIBUTION WIDTH 22.6 % (11.6-14.8); WHITE BLOOD COUNT 11.6 K/UL (4.8-10.8)
[2018-10-29] MEDS: Lactulose 20gm/30ml UDC ORAL SCH ×3 (05:51→21:57)
[2018-10-29] MEDS: NovoLOG Insulin Flexpen SUBQ SCH ×4 (05:53→20:59)
--- NOTE | 2018-10-29 06:19 | NUR ---
NURSE NOTES: Paged Dr silvestre in regards to hgb of 8. on 10/28/17, it was 10.1. Currently awaiting for call back.
[2018-10-29 06:24] LABS: ALANINE AMINOTRANSFERASE 74 U/L (12-78); ALBUMIN 2.4 G/DL (3.4-5.0); ALBUMIN/GLOBULIN RATIO 0.7 (1.0-2.7); ALKALINE PHOSPHATASE 323 U/L (46-116); ANION GAP 9 mmol/L (5-15); ASPARTATE AMINO TRANSFERASE 76 U/L (15-37); BILIRUBIN,TOTAL 9.4 MG/DL (0.2-1.0); BLOOD UREA NITROGEN 15 mg/dL (7-18); CALCIUM 9.5 MG/DL (8.5-10.1); CARBON DIOXIDE 26 MMOL/L (21-32); CHLORIDE 106 MMOL/L (98-107); CREATININE 1.4 MG/DL (0.55-1.30); POTASSIUM 3.7 MMOL/L (3.5-5.1); SODIUM 141 MMOL/L (136-145)
[2018-10-29 06:26] LABS: BILIRUBIN,DIRECT 6.3 MG/DL (0.0-0.3)
--- NOTE | 2018-10-29 07:20 | NUR ---
HAND-OFF: Report given to Javier Salazar RN.
--- NOTE | 2018-10-29 07:21 | NUR ---
NURSE NOTES: Received patient from KARI Bennett. Patient VS stable at this time with no sign of acute distress. Patient sleeping at this time. Patient skin coloring appears less jaundice today. Patient reportedly alert and oriented when awake but bulgarian speaking. Patient showing sinus tachycardia on the cardiac rn at 104 beats per minute. Patient on 2L NC at this time with stable saturation. Patient has a rectal tube that is patent and draining. Patient a medina for urine retention. Patient has redness in the folds of her abdomen. Patient has bilateral upper and lower extremity edema. Patient has a PICC on the left upper arm that is patent, asymptomatic, and saline locked at this time. Last dressing changed was 10/23/18. Patient has a chest x-ray scheduled for today. Will follow up with radiology. Patient bed in low position with bed alarm on and call light in reach at this time.
[2018-10-29 08:00] VITALS: BP 134/82
--- NOTE | 2018-10-29 08:57 | Pulmonology Progress Note ---
Assessment/Plan Assessment/Plan ASSESSMENT: The patient is a 58-year-old female with a history of obesity, diabetes, hypertension, hyperlipidemia, and sciatica with chronic low back pain , DDD/DJD, presenting after a mechanical fall with altered mental status and confusion with likely sepsis and multisystem organ failure. PROBLEM LIST: 1. VDRF, EXTUBATED 10/16/18 2. Sepsis 3. Shock, hypovolemic and distributive. 4. Multisystem organ failure. 5. Lactic acidosis. 6. Anion gap metabolic acidosis. 7. JONNATHAN - BETTER 7. Abnormal LFTs, likely shock liver. 8. Abnormal troponin, likely demand ischemia. 9. Elevated D-dimer and PASP concerning for an acute PE 10. Obesity. 11. Diabetes. 12. Hypertension. 13. Chronic low back pain and sciatica. 14. Anemia/FOBT + 15. Thrombocytopenia 16. AFcRVR now in NSR 17. HyperNa 18. Herpes labialis TREATMENT PLAN: 1. CXR 2. Optimize pulmonary hygiene/mobilize as tolerated 3. Titrate down FiO2 to keep SaO2 < 90% 4. Observe off Abx per ID 5. PO Lasix and Aldactone 6. SSI, monitor BS 7. Follow up cards recs 8. GI and surgery recs, PRN para, NGT out, diet advanced, ? TPN (barely eating) , ENDOSCOPY?, trend LFT's 9. DVT prophylaxis: SCD 10. FC, discuss GOC, consider palliative care eval Subjective Allergies: Coded Allergies: No Known Allergies (Unverified , 05/06/18) Subjective AFVSS O2 needs stable + cough no SOB no FC Objective Last 24 Hour Vital Signs Date Time Temp Pulse Resp B/P (MAP) Pulse Ox O2 Delivery O2 Flow Rate FiO2 10/29/18 04:00 98.5 107 28 139/69 (92) 97 10/29/18 04:00 Nasal Cannula 2.0 10/29/18 03:22 109 10/29/18 00:00 98.6 105 24 138/61 (86) 97 10/29/18 00:00 Nasal Cannula 2.0 10/28/18 23:33 105 10/28/18 20:00 Nasal Cannula 2.0 10/28/18 20:00 98.8 105 28 130/64 (86) 97 10/28/18 19:27 106 10/28/18 16:00 Nasal Cannula 2.0 10/28/18 16:00 115 10/28/18 15:52 98.5 114 24 132/60 (84) 97 10/28/18 12:00 100.0 120 24 135/68 (90) 97 10/28/18 12:00 Nasal Cannula 2.0 10/28/18 11:17 121 Intake and Output 10/28/18 10/29/18 19:00 07:00 Intake Total 400 ml 200 ml Output Total 900 ml 850 ml Balance -500 ml -650 ml Intake Oral 400 ml 200 ml Output Urine Total 800 ml 800 ml Stool Total 100 ml 50 ml General Appearance: no acute distress, other - AAOx HEENT: normocephalic, atraumatic, anicteric, mucous membranes moist, other - minimal incterus Respiratory/Chest: chest wall non-tender, lungs clear, normal breath sounds, no respiratory distress, no accessory muscle use Cardiovascular: normal peripheral pulses, normal rate, regular rhythm Abdomen: normal bowel sounds, soft, non tender, no organomegaly, non distended , no mass Extremities: no cyanosis, no clubbing, other - 1+ MAREK Laboratory Tests 10/29/18 03:30: White Blood Count 11.6H, Red Blood Count 2.66L, Hemoglobin 8.0L, Hematocrit 25.8L, Mean Corpuscular Volume 97, Mean Corpuscular Hemoglobin 29.9, Mean Corpuscular Hemoglobin Concent 30.8L, Red Cell Distribution Width 22.6H, Platelet Count 61L, Mean Platelet Volume 5.1L, Neutrophils (%) (Auto) , Lymphocytes (%) (Auto) , Monocytes (%) (Auto) , Eosinophils (%) (Auto) , Basophils (%) (Auto) , Differential Total Cells Counted 100, Neutrophils % ( Manual) 76H, Lymphocytes % (Manual) 11L, Monocytes % (Manual) 8, Eosinophils % ( Manual) 5H, Basophils % (Manual) 0, Band Neutrophils 0, Platelet Estimate DecreasedL, Platelet Morphology Normal, Polychromasia 1+, Hypochromasia 1+, Anisocytosis 2+, Sodium Level 141, Potassium Level 3.7, Chloride Level 106, Carbon Dioxide Level 26, Anion Gap 9, Blood Urea Nitrogen 15, Creatinine 1.4H, Estimat Glomerular Filtration Rate 38.7, Glucose Level 175H, Uric Acid 7.3H, Calcium Level 9.5, Phosphorus Level 3.0, Magnesium Level 1.9, Total Bilirubin 9.4H, Direct Bilirubin 6.3H, Aspartate Amino Transf (AST/SGOT) 76H, Alanine Aminotransferase (ALT/SGPT) 74, Alkaline Phosphatase 323H, Ammonia 37H, Pro-B- Type Natriuretic Peptide 299H, Total Protein 5.8L, Albumin 2.4L, Globulin 3.4, Albumin/Globulin Ratio 0.7L Current Medications Medications (Trade) Dose Ordered Sig/Patricia Route PRN Reason Start Time Stop Time Status Last Admin Dose Admin Chlorhexidine Gluconate (Nguyen-Hex 2%) 1 applic DAILY@2000 TOPIC 10/17/18 20:00 11/09/18 19:59 10/28/18 19:22 Dextrose (Dextrose 50%) 25 ml Q30M PRN IV Hypoglycemia 10/17/18 14:45 11/10/18 13:44 Dextrose (Dextrose 50%) 50 ml Q30M PRN IV Hypoglycemia 10/17/18 14:45 11/10/18 13:44 Digoxin (Lanoxin) 0.125 mg QOD NG 10/19/18 09:00 11/15/18 08:59 10/27/18 09:34 Diphenhydramine HCl (Benadryl) 25 mg Q6H PRN IVP Itching 10/17/18 14:30 11/08/18 14:29 10/28/18 19:22 Furosemide (Lasix) 40 mg DAILY ORAL 10/29/18 09:00 11/28/18 08:59 Insulin Aspart (NovoLOG) BEFORE MEALS AND HS SUBQ 10/17/18 16:30 11/10/18 16:29 10/29/18 05:53 Lactulose (Cephulac) 15 gm EVERY 8 HOURS ORAL 10/28/18 14:00 11/12/18 17:59 10/29/18 05:51 Midazolam HCl (Versed 2mg/2ml vial) 1 mg Q2H PRN IVP For Anxiety 10/17/18 14:30 11/11/18 14:29 Pantoprazole (Protonix) 40 mg EVERY 12 HOURS ORAL 10/28/18 21:00 11/27/18 20:59 10/28/18 21:04 Phytonadione (Vitamin K) 10 mg QWEEK SUBQ 11/02/18 09:00 12/02/18 08:59 Rifaximin (Xifaxan) 550 mg EVERY 12 HOURS ORAL 10/27/18 09:00 11/03/18 08:59 10/28/18 21:04 Spironolactone (Aldactone) 100 mg DAILY ORAL 10/27/18 09:00 11/22/18 09:44 10/28/18 08:12 Renato Delarosa MD Oct 29, 2018 08:57
[2018-10-29 09:21] LABS: HEMATOCRIT 27.8 % (37.0-47.0); HEMOGLOBIN 8.7 G/DL (12.0-16.0); MEAN CORPUSCULAR VOLUME 96 FL (80-99); PLATELET COUNT 75 K/UL (150-450); RED BLOOD COUNT 2.89 M/UL (4.20-5.40); RED CELL DISTRIBUTION WIDTH 23.8 % (11.6-14.8)
[2018-10-29] MEDS: Furosemide 40mg tab ORAL SCH (09:26)
[2018-10-29] MEDS: Spironolactone 50mg tab ORAL SCH (09:26)
[2018-10-29] MEDS: Digoxin 0.125mg tab NG SCH (09:26)
--- NOTE | 2018-10-29 09:29 | NUR ---
RADIOLOGY DEPT., CHEST X-RAY DONE.-P.DYE
--- NOTE | 2018-10-29 11:17 | GI Progress Note ---
Assessment/Plan Problems: (1) Shock liver ICD Codes: K72.00 - Acute and subacute hepatic failure without coma SNOMED: 184508540 (2) Liver cirrhosis ICD Codes: K74.60 - Unspecified cirrhosis of liver SNOMED: 39805145 (3) Septic shock ICD Codes: A41.9 - Sepsis, unspecified organism; R65.21 - Severe sepsis with septic shock SNOMED: 34574125 (4) Sepsis ICD Codes: A41.9 - Sepsis, unspecified organism SNOMED: 61083938 (5) Respiratory disorder with ventilator dependence ICD Codes: J98.9 - Respiratory disorder, unspecified; Z99.11 - Dependence on respirator [ventilator] status SNOMED: 80736189, 058928108 (6) Normocytic anemia ICD Codes: D64.9 - Anemia, unspecified SNOMED: 777760995 Status: progressing Status Narrative Discussed with Dr. Reynolds Assessment/Plan unsuccessful paracentesis due to limited ascites CT AP pending JAD, SMA, AMA negative hepatitis panel negative OB stool positive x2 stable H&H ppi to daily monitor H&H fu LFTS work up for elevated CEA when more stable lasix aldactone 100 fu labs xifaxan and lactulose reglan>>will dc albumin The patient was seen and examined at bedside and all new and available data was reviewed in the patients chart. I agree with the above findings, impression and plan. (Patient seen earlier today. Signature stamp does not reflect patient encounter time.). - Samuel Reynolds MD Subjective Gastrointestinal/Abdominal: Reports: no symptoms Subjective limited, more alert Objective Last 24 Hour Vital Signs Date Time Temp Pulse Resp B/P (MAP) Pulse Ox O2 Delivery O2 Flow Rate FiO2 10/29/18 09:26 101 10/29/18 04:00 98.5 107 28 139/69 (92) 97 10/29/18 04:00 Nasal Cannula 2.0 10/29/18 03:22 109 10/29/18 00:00 98.6 105 24 138/61 (86) 97 10/29/18 00:00 Nasal Cannula 2.0 10/28/18 23:33 105 10/28/18 20:00 Nasal Cannula 2.0 10/28/18 20:00 98.8 105 28 130/64 (86) 97 3/17/19 19:27 106 10/28/18 16:00 Nasal Cannula 2.0 10/28/18 16:00 115 10/28/18 15:52 98.5 114 24 132/60 (84) 97 10/28/18 12:00 100.0 120 24 135/68 (90) 97 10/28/18 12:00 Nasal Cannula 2.0 10/28/18 11:17 121 Intake and Output 10/28/18 10/29/18 18:59 06:59 Intake Total 400 ml 200 ml Output Total 900 ml 850 ml Balance -500 ml -650 ml Intake Oral 400 ml 200 ml Output Urine Total 800 ml 800 ml Stool Total 100 ml 50 ml Laboratory Tests Test 10/29/18 03:30 10/29/18 09:00 White Blood Count 11.6 K/UL (4.8-10.8) H 12.0 K/UL (4.8-10.8) H Red Blood Count 2.66 M/UL (4.20-5.40) L 2.89 M/UL (4.20-5.40) L Hemoglobin 8.0 G/DL (12.0-16.0) L 8.7 G/DL (12.0-16.0) L Hematocrit 25.8 % (37.0-47.0) L 27.8 % (37.0-47.0) L Mean Corpuscular Volume 97 FL (80-99) 96 FL (80-99) Mean Corpuscular Hemoglobin 29.9 PG (27.0-31.0) 30.0 PG (27.0-31.0) Mean Corpuscular Hemoglobin Concent 30.8 G/DL (32.0-36.0) L 31.2 G/DL (32.0-36.0) L Red Cell Distribution Width 22.6 % (11.6-14.8) H 23.8 % (11.6-14.8) H Platelet Count 61 K/UL (150-450) L 75 K/UL (150-450) L Mean Platelet Volume 5.1 FL (6.5-10.1) L 7.3 FL (6.5-10.1) Neutrophils (%) (Auto) % (45.0-75.0) % (45.0-75.0) Lymphocytes (%) (Auto) % (20.0-45.0) % (20.0-45.0) Monocytes (%) (Auto) % (1.0-10.0) % (1.0-10.0) Eosinophils (%) (Auto) % (0.0-3.0) % (0.0-3.0) Basophils (%) (Auto) % (0.0-2.0) % (0.0-2.0) Differential Total Cells Counted 100 100 Neutrophils % (Manual) 76 % (45-75) H 72 % (45-75) Lymphocytes % (Manual) 11 % (20-45) L 10 % (20-45) L Monocytes % (Manual) 8 % (1-10) 13 % (1-10) H Eosinophils % (Manual) 5 % (0-3) H 5 % (0-3) H Basophils % (Manual) 0 % (0-2) 0 % (0-2) Band Neutrophils 0 % (0-8) 0 % (0-8) Platelet Estimate Decreased L Decreased L Platelet Morphology Normal Normal Polychromasia 1+ Hypochromasia 1+ 1+ Anisocytosis 2+ 2+ Sodium Level 141 MMOL/L (136-145) Potassium Level 3.7 MMOL/L (3.5-5.1) Chloride Level 106 MMOL/L (98-107) Carbon Dioxide Level 26 MMOL/L (21-32) Anion Gap 9 mmol/L (5-15) Blood Urea Nitrogen 15 mg/dL (7-18) Creatinine 1.4 MG/DL (0.55-1.30) H Estimat Glomerular Filtration Rate 38.7 mL/min (>60) Glucose Level 175 MG/DL (74-106) H Uric Acid 7.3 MG/DL (2.6-7.2) H Calcium Level 9.5 MG/DL (8.5-10.1) Phosphorus Level 3.0 MG/DL (2.5-4.9) Magnesium Level 1.9 MG/DL (1.8-2.4) Total Bilirubin 9.4 MG/DL (0.2-1.0) H Direct Bilirubin 6.3 MG/DL (0.0-0.3) H Aspartate Amino Transf (AST/SGOT) 76 U/L (15-37) H Alanine Aminotransferase (ALT/SGPT) 74 U/L (12-78) Alkaline Phosphatase 323 U/L (46-116) H Ammonia 37 umol/L (11-32) H Pro-B-Type Natriuretic Peptide 299 pg/mL (0-125) H Total Protein 5.8 G/DL (6.4-8.2) L Albumin 2.4 G/DL (3.4-5.0) L Globulin 3.4 g/dL Albumin/Globulin Ratio 0.7 (1.0-2.7) L Macrocytosis 1+ Height (Feet): 5 Height (Inches): 1.00 Weight (Pounds): 243 General Appearance: WD/WN, no apparent distress, alert, morbidly obese Cardiovascular: normal rate Respiratory/Chest: normal breath sounds, no respiratory distress Abdominal Exam: normal bowel sounds, non tender, soft Extremities: normal range of motion, non-tender Cole Serna NP Oct 29, 2018 11:17
--- NOTE | 2018-10-29 11:47 | NUR ---
[employer]OR[employer] ASSISTANTS[employer] WHEELER SI:LIVER CIRRHOSIS . RESP DISTRESS VS: BP 138/61, P 107, T 98.5, RR 28, SpO2 97 on 2.0L NC WBC 11.6, CR 1.4, Uric Acid 7.3, Ammonia 37 IS:LASIX 40mg PROTONIX 40mg ALDACTONE 100mg RIFAXIMIN 550mg DIGOXIN 0.125 mg NOVOLOG SUBQ SDU STATUS
--- NOTE | 2018-10-29 11:49 | Diagnostic Imaging Report ---
Indication: Cough, shortness of breath Technique: One view of the chest Comparison: 10/19/2018 Findings: Body habitus limits evaluation. Right basilar opacification is unchanged. The heart is enlarged. Previously demonstrated nasogastric tube has been removed. There is equivocal mild ulnar venous congestion; if real, unchanged Impression: Persistent right basilar opacification. Suspect mostly on the basis of elevated right hemidiaphragm, but could indicate parenchymal infiltrate, atelectasis, and/or pleural fluid. Equivocal mild pulmonary interstitial congestion. Cardiomegaly Interim nasogastric tube removal
[2018-10-29 12:00] VITALS: BP 145/72
--- NOTE | 2018-10-29 12:14 | NUR ---
RD ASSESSMENT & RECOMMENDATIONS SEE CARE ACTIVITY FOR COMPLETE ASSESSMENT DAILY ESTIMATED NEEDS: Needs based on Sepsis, obesity, DM 24-28, 64kg adj kcals/kg 6106-6180 total kcals 1.2-2, 64kg adj g protein/kg 77-128 g total protein Fluid per MD NUTRITION DIAGNOSIS: 1) Swallowing difficulty r/t respiratory status as evidenced by pt is now extubated, off pressors, pt now on puree texture diet w/ NTL. 2) Altered nutrition related lab values r/t critical care. septic shock and multi organ failure as evidenced by critically elev WBC-> now wnl, elev creat kinase (3542), elev LFT's, elev T bili (9.4) elev phos (5.2 -> wnl), elev Creat-> now wnl, elev ammonia (62-> 37), elev BNP (6076->658-> 299), elev A1C (11.0), elev FBGs (175-244). PO DIET RECOMMENDATIONS: WHEN SAFE FOR PO-> CCHO LOW, CARDIAC/ texture per TELEPHONE OPERATOR CHIEF ADDITIONAL RECOMMENDATIONS: * CALIBRATED BED SCALE WTS * MONITOR PO INTAKE, NOTED IMPROVEMENT (10/29) * Monitor lytes daily, on lactulose and lasix * ssi for elev BG * Monitor for con't tolerance to diet -> Add Glucerna TID w/ meals (rec Nepro w/ elev K)
--- NOTE | 2018-10-29 13:26 | Cardiac Electrophysiology PN ---
Assessment/Plan Assessment/Plan 1. Atrial fib with RVR. Off Beta janet or CA janet for hypotension. On Dig 0.125 qod. In SR Off Amiodarone for high LFTs and Bilirubin 7.3 2. S/P Septic shock. On broad spectrum IV antibiotic. 3. Troponin leak. The levels are flat and likely due to this patient's sepsis and septic shock. Her echocardiogram showed ejection fraction 60% to 65% and EKG showed no acute ischemic changes. 4. Nonsustained VT. Keep off Amio. EF 65% 5. Diabetes. 6. Renal failure. 7. Morbid obesity. 8. Dysphagia, NG removed. Feeding started 9. S/P Respiratory failure, Extubated 10. Cirrhosis, high Bilirubin and ascites. On Lasix 40 po daily and Aldactone 100 daily now DW RN Subjective Subjective Off restraints. No CP or SOB. and RN at bedside Objective Last 24 Hour Vital Signs Date Time Temp Pulse Resp B/P (MAP) Pulse Ox O2 Delivery O2 Flow Rate FiO2 10/29/18 09:26 101 10/29/18 08:00 Nasal Cannula 2.0 10/29/18 08:00 97.9 103 20 134/82 (99) 93 10/29/18 08:00 101 10/29/18 04:00 98.5 107 28 139/69 (92) 97 10/29/18 04:00 Nasal Cannula 2.0 10/29/18 03:22 109 10/29/18 00:00 98.6 105 24 138/61 (86) 97 10/29/18 00:00 Nasal Cannula 2.0 10/28/18 23:33 105 10/28/18 20:00 Nasal Cannula 2.0 10/28/18 20:00 98.8 105 28 130/64 (86) 97 10/28/18 19:27 106 10/28/18 16:00 Nasal Cannula 2.0 10/28/18 16:00 115 10/28/18 15:52 98.5 114 24 132/60 (84) 97 Intake and Output 10/28/18 10/29/18 19:00 07:00 Intake Total 400 ml 200 ml Output Total 900 ml 850 ml Balance -500 ml -650 ml Intake Oral 400 ml 200 ml Output Urine Total 800 ml 800 ml Stool Total 100 ml 50 ml Laboratory Tests Test 10/29/18 03:10/29/18 09:00 White Blood Count 11.6 K/UL (4.8-10.8) H 12.0 K/UL (4.8-10.8) H Red Blood Count 2.66 M/UL (4.20-5.40) L 2.89 M/UL (4.20-5.40) L Hemoglobin 8.0 G/DL (12.0-16.0) L 8.7 G/DL (12.0-16.0) L Hematocrit 25.8 % (37.0-47.0) L 27.8 % (37.0-47.0) L Mean Corpuscular Volume 97 FL (80-99) 96 FL (80-99) Mean Corpuscular Hemoglobin 29.9 PG (27.0-31.0) 30.0 PG (27.0-31.0) Mean Corpuscular Hemoglobin Concent 30.8 G/DL (32.0-36.0) L 31.2 G/DL (32.0-36.0) L Red Cell Distribution Width 22.6 % (11.6-14.8) H 23.8 % (11.6-14.8) H Platelet Count 61 K/UL (150-450) L 75 K/UL (150-450) L Mean Platelet Volume 5.1 FL (6.5-10.1) L 7.3 FL (6.5-10.1) Neutrophils (%) (Auto) % (45.0-75.0) % (45.0-75.0) Lymphocytes (%) (Auto) % (20.0-45.0) % (20.0-45.0) Monocytes (%) (Auto) % (1.0-10.0) % (1.0-10.0) Eosinophils (%) (Auto) % (0.0-3.0) % (0.0-3.0) Basophils (%) (Auto) % (0.0-2.0) % (0.0-2.0) Differential Total Cells Counted 100 100 Neutrophils % (Manual) 76 % (45-75) H 72 % (45-75) Lymphocytes % (Manual) 11 % (20-45) L 10 % (20-45) L Monocytes % (Manual) 8 % (1-10) 13 % (1-10) H Eosinophils % (Manual) 5 % (0-3) H 5 % (0-3) H Basophils % (Manual) 0 % (0-2) 0 % (0-2) Band Neutrophils 0 % (0-8) 0 % (0-8) Platelet Estimate Decreased L Decreased L Platelet Morphology Normal Normal Polychromasia 1+ Hypochromasia 1+ 1+ Anisocytosis 2+ 2+ Sodium Level 141 MMOL/L (136-145) Potassium Level 3.7 MMOL/L (3.5-5.1) Chloride Level 106 MMOL/L (98-107) Carbon Dioxide Level 26 MMOL/L (21-32) Anion Gap 9 mmol/L (5-15) Blood Urea Nitrogen 15 mg/dL (7-18) Creatinine 1.4 MG/DL (0.55-1.30) H Estimat Glomerular Filtration Rate 38.7 mL/min (>60) Glucose Level 175 MG/DL (74-106) H Uric Acid 7.3 MG/DL (2.6-7.2) H Calcium Level 9.5 MG/DL (8.5-10.1) Phosphorus Level 3.0 MG/DL (2.5-4.9) Magnesium Level 1.9 MG/DL (1.8-2.4) Total Bilirubin 9.4 MG/DL (0.2-1.0) H Direct Bilirubin 6.3 MG/DL (0.0-0.3) H Aspartate Amino Transf (AST/SGOT) 76 U/L (15-37) H Alanine Aminotransferase (ALT/SGPT) 74 U/L (12-78) Alkaline Phosphatase 323 U/L (46-116) H Ammonia 37 umol/L (11-32) H Pro-B-Type Natriuretic Peptide 299 pg/mL (0-125) H Total Protein 5.8 G/DL (6.4-8.2) L Albumin 2.4 G/DL (3.4-5.0) L Globulin 3.4 g/dL Albumin/Globulin Ratio 0.7 (1.0-2.7) L Macrocytosis 1+ Objective HEAD AND NECK: No JVD. LUNGS: Coarse rhonchi. CARDIOVASCULAR: Regular S1, S2 with no gallop or murmur. ABDOMEN: Obese. EXTREMITIES: No pitting edema. Sean Montanez MD Oct 29, 2018 13:26
--- NOTE | 2018-10-29 13:52 | Nephrology Progress Note ---
Assessment/Plan Problem List: (1) JONNATHAN (acute kidney injury) Assessment: resolving (2) Shock liver (3) Septic shock (4) Respiratory disorder with ventilator dependence Assessment - Acute Oliguric Renal Failure Cr down to 1.1 - Respiratory disorder with s/p mechanical ventilator - Septic shock , Leukocytosis resolved - Pneumonia - Liver cirrhosis - Obese - Anemia . Plan PO K mag IV as needed transfused 2 units previously down on IV fluid K and Phos as needed Hemodynamic support Pulmonary support Monitor renal parameters avoid nephrotoxics as best as possible per orders discussed with RN Subjective ROS Limited/Unobtainable: No Constitutional: Reports: malaise, weakness Objective Objective Last 24 Hour Vital Signs Date Time Temp Pulse Resp B/P (MAP) Pulse Ox O2 Delivery O2 Flow Rate FiO2 10/29/18 09:26 101 10/29/18 08:00 Nasal Cannula 2.0 10/29/18 08:00 97.9 103 20 134/82 (99) 93 10/29/18 08:00 101 10/29/18 04:00 98.5 107 28 139/69 (92) 97 10/29/18 04:00 Nasal Cannula 2.0 10/29/18 03:22 109 10/29/18 00:00 98.6 105 24 138/61 (86) 97 10/29/18 00:00 Nasal Cannula 2.0 10/28/18 23:33 105 10/28/18 20:00 Nasal Cannula 2.0 10/28/18 20:00 98.8 105 28 130/64 (86) 97 10/28/18 19:27 106 10/28/18 16:00 Nasal Cannula 2.0 10/28/18 16:00 115 10/28/18 15:52 98.5 114 24 132/60 (84) 97 Intake and Output 10/28/18 10/29/18 19:00 07:00 Intake Total 400 ml 200 ml Output Total 900 ml 850 ml Balance -500 ml -650 ml Intake Oral 400 ml 200 ml Output Urine Total 800 ml 800 ml Stool Total 100 ml 50 ml Laboratory Tests 10/29/18 03:30: White Blood Count 11.6H, Red Blood Count 2.66L, Hemoglobin 8.0L, Hematocrit 25.8L, Mean Corpuscular Volume 97, Mean Corpuscular Hemoglobin 29.9, Mean Corpuscular Hemoglobin Concent 30.8L, Red Cell Distribution Width 22.6H, Platelet Count 61L, Mean Platelet Volume 5.1L, Neutrophils (%) (Auto) , Lymphocytes (%) (Auto) , Monocytes (%) (Auto) , Eosinophils (%) (Auto) , Basophils (%) (Auto) , Differential Total Cells Counted 100, Neutrophils % ( Manual) 76H, Lymphocytes % (Manual) 11L, Monocytes % (Manual) 8, Eosinophils % ( Manual) 5H, Basophils % (Manual) 0, Band Neutrophils 0, Platelet Estimate DecreasedL, Platelet Morphology Normal, Polychromasia 1+, Hypochromasia 1+, Anisocytosis 2+, Sodium Level 141, Potassium Level 3.7, Chloride Level 106, Carbon Dioxide Level 26, Anion Gap 9, Blood Urea Nitrogen 15, Creatinine 1.4H, Estimat Glomerular Filtration Rate 38.7, Glucose Level 175H, Uric Acid 7.3H, Calcium Level 9.5, Phosphorus Level 3.0, Magnesium Level 1.9, Total Bilirubin 9.4H, Direct Bilirubin 6.3H, Aspartate Amino Transf (AST/SGOT) 76H, Alanine Aminotransferase (ALT/SGPT) 74, Alkaline Phosphatase 323H, Ammonia 37H, Pro-B- Type Natriuretic Peptide 299H, Total Protein 5.8L, Albumin 2.4L, Globulin 3.4, Albumin/Globulin Ratio 0.7L 10/29/18 09:00: White Blood Count 12.0H, Red Blood Count 2.89L, Hemoglobin 8.7L, Hematocrit 27.8L, Mean Corpuscular Volume 96, Mean Corpuscular Hemoglobin 30.0, Mean Corpuscular Hemoglobin Concent 31.2L, Red Cell Distribution Width 23.8H, Platelet Count 75L, Mean Platelet Volume 7.3, Neutrophils (%) (Auto) , Lymphocytes (%) (Auto) , Monocytes (%) (Auto) , Eosinophils (%) (Auto) , Basophils (%) (Auto) , Differential Total Cells Counted 100, Neutrophils % ( Manual) 72, Lymphocytes % (Manual) 10L, Monocytes % (Manual) 13H, Eosinophils % (Manual) 5H, Basophils % (Manual) 0, Band Neutrophils 0, Platelet Estimate DecreasedL, Platelet Morphology Normal, Hypochromasia 1+, Anisocytosis 2+, Macrocytosis 1+ Height (Feet): 5 Height (Inches): 1.00 Weight (Pounds): 243 General Appearance: no apparent distress EENT: other - Jaundiced Cardiovascular: tachycardia Respiratory/Chest: decreased breath sounds Abdomen: distended Objective NO CHANGE Alex Cueto MD Oct 29, 2018 13:52
--- NOTE | 2018-10-29 14:27 | Infectious Diseases Prog Note ---
Assessment/Plan Assessment/Plan A: 1. Septic Shock resolved.culture are negative so far 2. aspiration pneumonia. 3. acute renal failure , resolved 4. Diabetes mellitus. 5. Obesity. 6. Lactic acidosis. 7. Anemia.s/p transfusion 8. Cirrhosis with ascites 9. Enteritis, ileus resolved 10. Leukocytosis improving 11. GI bleeding RECOMMENDATION: UA & Urine culture Poor fci prognosis Subjective ROS Limited/Unobtainable: Yes Constitutional: Reports: other - feels better Gastrointestinal/Abdominal: Reports: diarrhea, other - decreased Allergies: Coded Allergies: No Known Allergies (Unverified , 05/06/18) Objective Vital Signs Last 24 Hour Vital Signs Date Time Temp Pulse Resp B/P (MAP) Pulse Ox O2 Delivery O2 Flow Rate FiO2 10/29/18 09:26 101 10/29/18 08:00 Nasal Cannula 2.0 10/29/18 08:00 97.9 103 20 134/82 (99) 93 10/29/18 08:00 101 10/29/18 04:00 98.5 107 28 139/69 (92) 97 10/29/18 04:00 Nasal Cannula 2.0 10/29/18 03:22 109 10/29/18 00:00 98.6 105 24 138/61 (86) 97 10/29/18 00:00 Nasal Cannula 2.0 10/28/18 23:33 105 10/28/18 20:00 Nasal Cannula 2.0 10/28/18 20:00 98.8 105 28 130/64 (86) 97 10/28/18 19:27 106 10/28/18 16:00 Nasal Cannula 2.0 10/28/18 16:00 115 10/28/18 15:52 98.5 114 24 132/60 (84) 97 Height (Feet): 5 Height (Inches): 1.00 Weight (Pounds): 243 HEENT: mucous membranes moist Respiratory/Chest: lungs clear Cardiovascular: tachycardia, other - PICC line Abdomen: soft, non tender, other - rectal tube Genitourinary: other - Quiroz catheter Extremities: other - edema of legs Neurologic/Psychiatric: alert, responsive Laboratory Tests Test 10/29/18 03:30 10/29/18 09:00 White Blood Count 11.6 K/UL (4.8-10.8) H 12.0 K/UL (4.8-10.8) H Red Blood Count 2.66 M/UL (4.20-5.40) L 2.89 M/UL (4.20-5.40) L Hemoglobin 8.0 G/DL (12.0-16.0) L 8.7 G/DL (12.0-16.0) L Hematocrit 25.8 % (37.0-47.0) L 27.8 % (37.0-47.0) L Mean Corpuscular Volume 97 FL (80-99) 96 FL (80-99) Mean Corpuscular Hemoglobin 29.9 PG (27.0-31.0) 30.0 PG (27.0-31.0) Mean Corpuscular Hemoglobin Concent 30.8 G/DL (32.0-36.0) L 31.2 G/DL (32.0-36.0) L Red Cell Distribution Width 22.6 % (11.6-14.8) H 23.8 % (11.6-14.8) H Platelet Count 61 K/UL (150-450) L 75 K/UL (150-450) L Mean Platelet Volume 5.1 FL (6.5-10.1) L 7.3 FL (6.5-10.1) Neutrophils (%) (Auto) % (45.0-75.0) % (45.0-75.0) Lymphocytes (%) (Auto) % (20.0-45.0) % (20.0-45.0) Monocytes (%) (Auto) % (1.0-10.0) % (1.0-10.0) Eosinophils (%) (Auto) % (0.0-3.0) % (0.0-3.0) Basophils (%) (Auto) % (0.0-2.0) % (0.0-2.0) Differential Total Cells Counted 100 100 Neutrophils % (Manual) 76 % (45-75) H 72 % (45-75) Lymphocytes % (Manual) 11 % (20-45) L 10 % (20-45) L Monocytes % (Manual) 8 % (1-10) 13 % (1-10) H Eosinophils % (Manual) 5 % (0-3) H 5 % (0-3) H Basophils % (Manual) 0 % (0-2) 0 % (0-2) Band Neutrophils 0 % (0-8) 0 % (0-8) Platelet Estimate Decreased L Decreased L Platelet Morphology Normal Normal Polychromasia 1+ Hypochromasia 1+ 1+ Anisocytosis 2+ 2+ Sodium Level 141 MMOL/L (136-145) Potassium Level 3.7 MMOL/L (3.5-5.1) Chloride Level 106 MMOL/L (98-107) Carbon Dioxide Level 26 MMOL/L (21-32) Anion Gap 9 mmol/L (5-15) Blood Urea Nitrogen 15 mg/dL (7-18) Creatinine 1.4 MG/DL (0.55-1.30) H Estimat Glomerular Filtration Rate 38.7 mL/min (>60) Glucose Level 175 MG/DL (74-106) H Uric Acid 7.3 MG/DL (2.6-7.2) H Calcium Level 9.5 MG/DL (8.5-10.1) Phosphorus Level 3.0 MG/DL (2.5-4.9) Magnesium Level 1.9 MG/DL (1.8-2.4) Total Bilirubin 9.4 MG/DL (0.2-1.0) H Direct Bilirubin 6.3 MG/DL (0.0-0.3) H Aspartate Amino Transf (AST/SGOT) 76 U/L (15-37) H Alanine Aminotransferase (ALT/SGPT) 74 U/L (12-78) Alkaline Phosphatase 323 U/L (46-116) H Ammonia 37 umol/L (11-32) H Pro-B-Type Natriuretic Peptide 299 pg/mL (0-125) H Total Protein 5.8 G/DL (6.4-8.2) L Albumin 2.4 G/DL (3.4-5.0) L Globulin 3.4 g/dL Albumin/Globulin Ratio 0.7 (1.0-2.7) L Macrocytosis 1+ Current Medications Medications (Trade) Dose Ordered Sig/Patricia Route PRN Reason Start Time Stop Time Status Last Admin Dose Admin Chlorhexidine Gluconate (Nguyen-Hex 2%) 1 applic DAILY@2000 TOPIC 10/17/18 20:00 11/09/18 19:59 10/28/18 19:22 Dextrose (Dextrose 50%) 25 ml Q30M PRN IV Hypoglycemia 10/17/18 14:45 11/10/18 13:44 Dextrose (Dextrose 50%) 50 ml Q30M PRN IV Hypoglycemia 10/17/18 14:45 11/10/18 13:44 Digoxin (Lanoxin) 0.125 mg QOD NG 10/19/18 09:00 11/15/18 08:59 10/29/18 09:26 Diphenhydramine HCl (Benadryl) 25 mg Q6H PRN IVP Itching 10/17/18 14:30 11/08/18 14:29 10/28/18 19:22 Furosemide (Lasix) 40 mg DAILY ORAL 10/29/18 09:00 11/28/18 08:59 10/29/18 09:26 Insulin Aspart (NovoLOG) BEFORE MEALS AND HS SUBQ 10/17/18 16:30 11/10/18 16:29 10/29/18 12:04 Lactulose (Cephulac) 15 gm EVERY 8 HOURS ORAL 10/28/18 14:00 11/12/18 17:59 10/29/18 13:44 Midazolam HCl (Versed 2mg/2ml vial) 1 mg Q2H PRN IVP For Anxiety 10/17/18 14:30 11/11/18 14:29 Pantoprazole (Protonix) 40 mg EVERY 12 HOURS ORAL 10/28/18 21:00 11/27/18 20:59 10/29/18 09:25 Phytonadione (Vitamin K) 10 mg QWEEK SUBQ 11/02/18 09:00 12/02/18 08:59 Rifaximin (Xifaxan) 550 mg EVERY 12 HOURS ORAL 10/27/18 09:00 11/03/18 08:59 10/29/18 09:26 Spironolactone (Aldactone) 100 mg DAILY ORAL 10/27/18 09:00 11/22/18 09:44 10/29/18 09:26 Wesley Akers MD Oct 29, 2018 14:27
[2018-10-29 16:00] VITALS: BP 154/75
--- NOTE | 2018-10-29 16:51 | General Progress Note ---
Assessment/Plan Assessment/Plan Assessment and Recs: # Leukocytosis/Elevated white blood cell count, unspecified likely related to underlying stress reaction, or underlying infection --> have reviewed peripheral smear and bandemia/neutrophilia noted --> continue antibiotics if they have been started by ID team (currently theu have been stopped) --> monitor for resolution -->WBC trend: 14-->10-->15-->12-->11-->10-->8.6 # Thrombocytopenia - potential causes multifactorial but most likely contributor is cirrhosis, that is chronic, elevated bili with ascites --> Hep panel and HIV negative --> CT a/p show cirrhosis as well as us --> Peripheral smear ordered to evaluate for blasts /schistocytes is negative --> abx and other meds have been reviewed --> ok for ppx if plt >50k w/ either heparin or lovenox --> Transfuse if Plt < 20k and fever, or if Plt < 10k without fever --> HIT negative, hold off heparin --> Plt trend : 54-->92-->106-->113 # Anemia of iron deficiency as noted with low % sat and tibc elevated --> Anemia workup has been reviewed --> No evidence of hemolysis is noted, peripheral smear has been reviewed. --> Hgb goal >7. Transfuse prn. --> Iron IV X 5 days already given --> Medications have been reviewed # CEA of 10.5 --> Ct of abdomen/pelvis reviewed and is negative --> as per gi recs # Sepsis likely contributing to low plts --> on abx as needed # Shock, hypovolemic and distributive --> per id and pulm/cc care # Multisystem organ failure. # Lactic acidosis. # JONNATHAN. # Abnormal LFTs, likely shock liver. # Abnormal troponin, likely demand ischemia. # Obesity. # Respiratory failure on vent --> now extubated # Afib on meds as per cards The timing of this note does not necessarily reflect the time of the patient was seen. Greatly appreciate consultation! Subjective Constitutional: Denies: no symptoms, chills, diaphoresis, fever, malaise, weakness, other HEENT: Denies: no symptoms, eye pain, blurred vision, tearing, double vision, ear pain, ear discharge, nose pain, nose congestion, throat pain, throat swelling, mouth pain, mouth swelling, other Cardiovascular: Denies: no symptoms, chest pain, edema, irregular heart rate, lightheadedness, palpitations, syncope, other Gastrointestinal/Abdominal: Denies: no symptoms, abdomen distended, abdominal pain, black stools, tarry stools, blood in stool, constipated, diarrhea, difficulty swallowing, nausea, poor appetite, poor fluid intake, rectal bleeding , vomiting, other Genitourinary: Denies: no symptoms, burning, discharge, frequency, flank pain, hematuria, incontinence, pain, urgency, other Neurologic/Psychiatric: Denies: no symptoms, anxiety, depressed, emotional problems, headache, numbness, paresthesia, pre-existing deficit, seizure, tingling, tremors, weakness, other Allergies: Coded Allergies: No Known Allergies (Unverified , 05/06/18) Subjective 3: Pt was seen in ICU on Vent and off pressors, developed atrial fib, wbc trending down to 13, plt trending down to 60 3: remains in the icu, monitoring labs, plts stabilizing, remains critically ill, cea elev 3: In ICU on Vent and off pressors, plt 62, no events 10/16 wbc trending up at 14,plt low at 48,weaning well from vent. no acute events , family at bedside 10/17: plts remain low, no events, weaned off vent, no complaints, off pressors 10/18: seen by bedside, wbc trending up at 15, plt low at 50, no events, needs video swallow. NGT 10/19: wbc remains elevated, plt 54, no acute distress reported 10/21: seen by bedside, still with lots of NG tube output, wbc 12, plt trending up 10/22: awake, alert,has high NG tube residual, wbc 11, no events 10/23: comfortable, wbc trending down, plt trending up , no events 10/24: Seen by bedside, leukocytosis resolved, no events 10/25: awake, comfortable, Surgery removed NGT, no events 3.15: NG tube was removed yesterday and patient started on diet, comfortable, no events, plt trending up 10/28: seen by bedside, lethargic, no events 10/29: remains extubated, cbc reviewed, bili remains elevated, lethargic, on abx Objective Last 24 Hour Vital Signs Date Time Temp Pulse Resp B/P (MAP) Pulse Ox O2 Delivery O2 Flow Rate FiO2 10/29/18 16:00 Nasal Cannula 2.0 10/29/18 12:00 97.5 110 24 145/72 (96) 98 10/29/18 12:00 Nasal Cannula 2.0 10/29/18 12:00 107 10/29/18 09:26 101 10/29/18 08:00 Nasal Cannula 2.0 10/29/18 08:00 97.9 103 20 134/82 (99) 93 10/29/18 08:00 101 10/29/18 04:00 98.5 107 28 139/69 (92) 97 10/29/18 04:00 Nasal Cannula 2.0 10/29/18 03:22 109 10/29/18 00:00 98.6 105 24 138/61 (86) 97 10/29/18 00:00 Nasal Cannula 2.0 10/28/18 23:33 105 10/28/18 20:00 Nasal Cannula 2.0 10/28/18 20:00 98.8 105 28 130/64 (86) 97 10/28/18 19:27 106 Intake and Output 10/28/18 10/29/18 19:00 07:00 Intake Total 400 ml 200 ml Output Total 900 ml 850 ml Balance -500 ml -650 ml Intake Oral 400 ml 200 ml Output Urine Total 800 ml 800 ml Stool Total 100 ml 50 ml Laboratory Tests 10/29/18 03:30: White Blood Count 11.6H, Red Blood Count 2.66L, Hemoglobin 8.0L, Hematocrit 25.8L, Mean Corpuscular Volume 97, Mean Corpuscular Hemoglobin 29.9, Mean Corpuscular Hemoglobin Concent 30.8L, Red Cell Distribution Width 22.6H, Platelet Count 61L, Mean Platelet Volume 5.1L, Neutrophils (%) (Auto) , Lymphocytes (%) (Auto) , Monocytes (%) (Auto) , Eosinophils (%) (Auto) , Basophils (%) (Auto) , Differential Total Cells Counted 100, Neutrophils % ( Manual) 76H, Lymphocytes % (Manual) 11L, Monocytes % (Manual) 8, Eosinophils % ( Manual) 5H, Basophils % (Manual) 0, Band Neutrophils 0, Platelet Estimate DecreasedL, Platelet Morphology Normal, Polychromasia 1+, Hypochromasia 1+, Anisocytosis 2+, Sodium Level 141, Potassium Level 3.7, Chloride Level 106, Carbon Dioxide Level 26, Anion Gap 9, Blood Urea Nitrogen 15, Creatinine 1.4H, Estimat Glomerular Filtration Rate 38.7, Glucose Level 175H, Uric Acid 7.3H, Calcium Level 9.5, Phosphorus Level 3.0, Magnesium Level 1.9, Total Bilirubin 9.4H, Direct Bilirubin 6.3H, Aspartate Amino Transf (AST/SGOT) 76H, Alanine Aminotransferase (ALT/SGPT) 74, Alkaline Phosphatase 323H, Ammonia 37H, Pro-B- Type Natriuretic Peptide 299H, Total Protein 5.8L, Albumin 2.4L, Globulin 3.4, Albumin/Globulin Ratio 0.7L 10/29/18 09:00: White Blood Count 12.0H, Red Blood Count 2.89L, Hemoglobin 8.7L, Hematocrit 27.8L, Mean Corpuscular Volume 96, Mean Corpuscular Hemoglobin 30.0, Mean Corpuscular Hemoglobin Concent 31.2L, Red Cell Distribution Width 23.8H, Platelet Count 75L, Mean Platelet Volume 7.3, Neutrophils (%) (Auto) , Lymphocytes (%) (Auto) , Monocytes (%) (Auto) , Eosinophils (%) (Auto) , Basophils (%) (Auto) , Differential Total Cells Counted 100, Neutrophils % ( Manual) 72, Lymphocytes % (Manual) 10L, Monocytes % (Manual) 13H, Eosinophils % (Manual) 5H, Basophils % (Manual) 0, Band Neutrophils 0, Platelet Estimate DecreasedL, Platelet Morphology Normal, Hypochromasia 1+, Anisocytosis 2+, Macrocytosis 1+ Height (Feet): 5 Height (Inches): 1.00 Weight (Pounds): 243 Objective PHYSICAL EXAMINATION: VITAL SIGNS: reviewed, saturating 98% on NC++, GENERAL: She is an obese female, confused. HEENT: Normocephalic and atraumatic. Oropharynx is clear with dry mucous membranes., NECK: Supple without lymphadenopathy or JVP. CHEST: Clear. HEART: Regular. ABDOMEN: Benign. EXTREMITIES: No cyanosis, clubbing, or edema. There are some ecchymoses in bilateral lower extremities. Kurtis Villagomez MD Oct 29, 2018 16:51
[2018-10-29 17:16] LABS: APPEARANCE,URINE SLIGHTLY CLOUDY; BILIRUBIN, URINE 2+ (NEGATIVE); COLOR,URINE BROWN; GLUCOSE, URINE (UA) NEGATIVE (NEGATIVE); KETONES,URINE 1+ (NEGATIVE); LEUKOCYTE ESTERASE ,URINE 3+ (NEGATIVE); NITRITE,URINE POSITIVE (NEGATIVE); PH,URINE 6 (4.5-8.0); PROTEIN,URINE 2+ (NEGATIVE); UROBILINOGEN,URINE 4 MG/DL (0.0-1.0)
--- NOTE | 2018-10-29 17:25 | NUR ---
NURSE NOTES: Patient woke up feeling like she could not breath. Dr Delarosa notified. DuoNeb was ordered PRN Q6HR. Respiratory therapist recommended BiPAP. Dr Delarosa did not order BiPAP at this time.
[2018-10-29] MEDS ORDERED: Albuterol/Ipratropium 3ml neb HHN PRN (17:30)
--- NOTE | 2018-10-29 19:26 | NUR ---
HAND-OFF: Report given to KARI Aaron. Patient VS stable at this time with no sign of acute distress.
[2018-10-29] MEDS: Dyna-Hex 2% Top Sol 2oz TOPIC SCH (19:46)
--- NOTE | 2018-10-29 19:55 | NUR ---
NURSE NOTES: PT'S FAMILY AT BEDSIDE. PATIENT SLIGHT DROWSY, ABLE TO COMMUNICATION, DENIED PAIN OR DISTRESS AT THIS TIME. RESPIRATION REGULAR, ON O2 3LMP VIA NC, ABDOMEN SOFT, DISTENDED, ROUND, NON TENDER, RECTAL TUBE INTACT AND PATENT, BROWN SOLID LIQUID STOOL OUTED, F/C INTACT AND PATENT, DARK BA COLOR URINE OUTED, PICC LINE TO LEFT UPPER ARM, INTACT AND PATENT, MADE LOWER BED POSITION, PROVIDED CALL LIGHT WITHIN REACH, WILL CONTINUE TO MONITOR.
[2018-10-29 20:00] VITALS: BP 124/66
--- NOTE | 2018-10-29 21:53 | General Progress Note ---
Assessment/Plan Problem List: (1) Hypotension ICD Codes: I95.9 - Hypotension, unspecified SNOMED: 44235016 (2) Hyperglycemia ICD Codes: R73.9 - Hyperglycemia, unspecified SNOMED: 60711646 (3) Dyspnea ICD Codes: R06.00 - Dyspnea, unspecified SNOMED: 011624032 (4) Hypoxemia ICD Codes: R09.02 - Hypoxemia SNOMED: 089056031 (5) Contusion of left knee ICD Codes: S80.02XA - Contusion of left knee, initial encounter SNOMED: 52915189 (6) Sepsis ICD Codes: A41.9 - Sepsis, unspecified organism SNOMED: 76273550 (7) Septic shock ICD Codes: A41.9 - Sepsis, unspecified organism; R65.21 - Severe sepsis with septic shock SNOMED: 17544499 (8) Liver cirrhosis ICD Codes: K74.60 - Unspecified cirrhosis of liver SNOMED: 27973681 (9) Pneumonia ICD Codes: J18.9 - Pneumonia, unspecified organism SNOMED: 836956068 (10) Respiratory disorder with ventilator dependence ICD Codes: J98.9 - Respiratory disorder, unspecified; Z99.11 - Dependence on respirator [ventilator] status SNOMED: 26750895, 484802098 (11) Shock liver ICD Codes: K72.00 - Acute and subacute hepatic failure without coma SNOMED: 579989397 Status: progressing Assessment/Plan jaundice afebrile more alert improved lft edema cihrrosis sepsis obesity morbid pna improving encephalopathy Subjective ROS Limited/Unobtainable: Yes Allergies: Coded Allergies: No Known Allergies (Unverified , 05/06/18) Objective Last 24 Hour Vital Signs Date Time Temp Pulse Resp B/P (MAP) Pulse Ox O2 Delivery O2 Flow Rate FiO2 10/29/18 16:00 Nasal Cannula 2.0 10/29/18 16:00 107 10/29/18 16:00 98.4 108 24 154/75 (101) 98 10/29/18 12:00 97.5 110 24 145/72 (96) 98 10/29/18 12:00 Nasal Cannula 2.0 10/29/18 12:00 107 10/29/18 09:26 101 10/29/18 08:00 Nasal Cannula 2.0 10/29/18 08:00 97.9 103 20 134/82 (99) 93 10/29/18 08:00 101 10/29/18 04:00 98.5 107 28 139/69 (92) 97 10/29/18 04:00 Nasal Cannula 2.0 10/29/18 03:22 109 10/29/18 00:00 98.6 105 24 138/61 (86) 97 10/29/18 00:00 Nasal Cannula 2.0 10/28/18 23:33 105 Intake and Output 10/28/18 10/29/18 19:00 07:00 Intake Total 400 ml 200 ml Output Total 900 ml 850 ml Balance -500 ml -650 ml Intake Oral 400 ml 200 ml Output Urine Total 800 ml 800 ml Stool Total 100 ml 50 ml Laboratory Tests 10/29/18 03:30: White Blood Count 11.6H, Red Blood Count 2.66L, Hemoglobin 8.0L, Hematocrit 25.8L, Mean Corpuscular Volume 97, Mean Corpuscular Hemoglobin 29.9, Mean Corpuscular Hemoglobin Concent 30.8L, Red Cell Distribution Width 22.6H, Platelet Count 61L, Mean Platelet Volume 5.1L, Neutrophils (%) (Auto) , Lymphocytes (%) (Auto) , Monocytes (%) (Auto) , Eosinophils (%) (Auto) , Basophils (%) (Auto) , Differential Total Cells Counted 100, Neutrophils % ( Manual) 76H, Lymphocytes % (Manual) 11L, Monocytes % (Manual) 8, Eosinophils % ( Manual) 5H, Basophils % (Manual) 0, Band Neutrophils 0, Platelet Estimate DecreasedL, Platelet Morphology Normal, Polychromasia 1+, Hypochromasia 1+, Anisocytosis 2+, Sodium Level 141, Potassium Level 3.7, Chloride Level 106, Carbon Dioxide Level 26, Anion Gap 9, Blood Urea Nitrogen 15, Creatinine 1.4H, Estimat Glomerular Filtration Rate 38.7, Glucose Level 175H, Uric Acid 7.3H, Calcium Level 9.5, Phosphorus Level 3.0, Magnesium Level 1.9, Ferritin 1633H, Total Bilirubin 9.4H, Direct Bilirubin 6.3H, Aspartate Amino Transf (AST/SGOT) 76H, Alanine Aminotransferase (ALT/SGPT) 74, Alkaline Phosphatase 323H, Ammonia 37H, Pro-B-Type Natriuretic Peptide 299H, Total Protein 5.8L, Albumin 2.4L, Globulin 3.4, Albumin/Globulin Ratio 0.7L 10/29/18 09:00: White Blood Count 12.0H, Red Blood Count 2.89L, Hemoglobin 8.7L, Hematocrit 27.8L, Mean Corpuscular Volume 96, Mean Corpuscular Hemoglobin 30.0, Mean Corpuscular Hemoglobin Concent 31.2L, Red Cell Distribution Width 23.8H, Platelet Count 75L, Mean Platelet Volume 7.3, Neutrophils (%) (Auto) , Lymphocytes (%) (Auto) , Monocytes (%) (Auto) , Eosinophils (%) (Auto) , Basophils (%) (Auto) , Differential Total Cells Counted 100, Neutrophils % ( Manual) 72, Lymphocytes % (Manual) 10L, Monocytes % (Manual) 13H, Eosinophils % (Manual) 5H, Basophils % (Manual) 0, Band Neutrophils 0, Platelet Estimate DecreasedL, Platelet Morphology Normal, Hypochromasia 1+, Anisocytosis 2+, Macrocytosis 1+ 10/29/18 16:50: Urine Color Brown, Urine Appearance Slightly cloudy, Urine pH 6, Urine Specific Isabel 1.015, Urine Protein 2+H, Urine Glucose (UA) Negative, Urine Ketones 1+H , Urine Blood 5+H, Urine Nitrite PositiveH, Urine Bilirubin 2+H, Urine Ictotest Positive, Urine Urobilinogen 4H, Urine Leukocyte Esterase 3+H, Urine RBC 10-15H , Urine WBC 5-10H, Urine Squamous Epithelial Cells Few, Urine Bacteria Few, Urine Yeast ModerateH Height (Feet): 5 Height (Inches): 1.00 Weight (Pounds): 243 Neck: supple Cardiovascular: normal rate Respiratory/Chest: lungs clear Abdomen: soft Michael Kelley MD Oct 29, 2018 21:53
--- NOTE | 2018-10-29 22:10 | NUR ---
NURSE NOTES: PATIENT ASLEEP STATUS, NO PAIN OR DISTRESS NOTED AT THIS TIME.
[2018-10-30] VITALS: BP 124/70
--- NOTE | 2018-10-30 00:20 | NUR ---
NURSE NOTES: NO ACUTE DISTRESS NOTED, WILL CONTINUE PLAN OF CARE.
--- NOTE | 2018-10-30 02:00 | NUR ---
NURSE NOTES: PATIENT ASLEEP STATUS.
[2018-10-30 04:00] VITALS: BP 127/69
--- NOTE | 2018-10-30 04:10 | NUR ---
NURSE NOTES: MORNING CARE AND ORAL CARE WAS DONE, RECTAL TUBE AND F/C INTACT, DRAINING WELL GRAVITY.
[2018-10-30] MEDS: Lactulose 20gm/30ml UDC ORAL SCH ×3 (06:06→21:53)
[2018-10-30] MEDS: NovoLOG Insulin Flexpen SUBQ SCH ×4 (06:07→20:34)
[2018-10-30 06:08] LABS: ALANINE AMINOTRANSFERASE 69 U/L (12-78); ALBUMIN 2.2 G/DL (3.4-5.0); ALBUMIN/GLOBULIN RATIO 0.6 (1.0-2.7); ALKALINE PHOSPHATASE 332 U/L (46-116); ANION GAP 10 mmol/L (5-15); ASPARTATE AMINO TRANSFERASE 78 U/L (15-37); BLOOD UREA NITROGEN 16 mg/dL (7-18); CALCIUM 9.3 MG/DL (8.5-10.1); CARBON DIOXIDE 25 MMOL/L (21-32); CHLORIDE 106 MMOL/L (98-107); CREATININE 1.5 MG/DL (0.55-1.30); POTASSIUM 3.9 MMOL/L (3.5-5.1); SODIUM 141 MMOL/L (136-145)
[2018-10-30 06:13] LABS: BILIRUBIN,DIRECT 6.6 MG/DL (0.0-0.3)
--- NOTE | 2018-10-30 06:20 | NUR ---
NURSE NOTES: PATIENT ASLEEP STATUS, NO ACUTE DISTRESS NOTED AT THIS SHIFT.
--- NOTE | 2018-10-30 07:21 | NUR ---
HAND-OFF: Report given to KARI MASON.
--- NOTE | 2018-10-30 07:50 | NUR ---
NURSE NOTES: Received patient from Aislinn Mcclelland RN. Patient is awake and oriented x3. Quiroz catheter is patent and draining. Rectal tube is draining liquid stool. Left upper arm PICC line is asymptomatic and dressing is clean and dry. Bed is locked, placed in lowest position, side rails up x3, call light within reach. Will continue to monitor
[2018-10-30 08:00] VITALS: BP 137/72
[2018-10-30 08:03] LABS: HEMATOCRIT 25.9 % (37.0-47.0); HEMOGLOBIN 8.1 G/DL (12.0-16.0); MEAN CORPUSCULAR VOLUME 97 FL (80-99); PLATELET COUNT 62 K/UL (150-450); RED BLOOD COUNT 2.68 M/UL (4.20-5.40); RED CELL DISTRIBUTION WIDTH 23.2 % (11.6-14.8); WHITE BLOOD COUNT 9.2 K/UL (4.8-10.8)
[2018-10-30] MEDS: Spironolactone 50mg tab ORAL SCH (08:33)
[2018-10-30] MEDS: Furosemide 40mg tab ORAL SCH (08:34)
--- NOTE | 2018-10-30 10:39 | Infectious Diseases Prog Note ---
Assessment/Plan Assessment/Plan antibiotics : rifaximin A 1. lip herpes s/p rx 2. cirrhosis 3. diabetes mellitus 4. renal failure resolved 5. gram negative UTI P 1. start zosyn 2. patient on rifaximin 3. will follow up cultures Subjective Constitutional: Denies: fever, chills Respiratory: Denies: shortness of breath, dry cough Gastrointestinal/Abdominal: Denies: nausea, vomiting, diarrhea Musculoskeletal: Denies: pain Allergies: Coded Allergies: No Known Allergies (Unverified , 05/06/18) Objective Vital Signs Last 24 Hour Vital Signs Date Time Temp Pulse Resp B/P (MAP) Pulse Ox O2 Delivery O2 Flow Rate FiO2 10/30/18 08:00 Nasal Cannula 2.0 10/30/18 08:00 98.1 105 22 137/72 (93) 96 10/30/18 07:51 104 10/30/18 07:24 98 Nasal Cannula 2.0 28 10/30/18 07:24 Nasal Cannula 2.0 28 10/30/18 04:00 Nasal Cannula 2.0 10/30/18 04:00 98.6 111 24 127/69 (88) 97 10/30/18 03:29 110 10/30/18 00:00 99.1 105 24 124/70 (88) 98 10/30/18 00:00 Nasal Cannula 2.0 10/29/18 23:28 106 10/29/18 20:00 99.0 112 24 124/66 (85) 98 10/29/18 20:00 Nasal Cannula 3.0 10/29/18 19:30 111 10/29/18 19:06 Nasal Cannula 2.0 28 10/29/18 19:06 98 Nasal Cannula 2.0 28 10/29/18 16:00 Nasal Cannula 2.0 10/29/18 16:00 107 10/29/18 16:00 98.4 108 24 154/75 (101) 98 10/29/18 12:00 97.5 110 24 145/72 (96) 98 10/29/18 12:00 Nasal Cannula 2.0 10/29/18 12:00 107 Height (Feet): 5 Height (Inches): 1.00 Weight (Pounds): 233 Respiratory/Chest: lungs clear Cardiovascular: normal rate, regular rhythm, no gallop/murmur Abdomen: soft, non tender Extremities: other - + edema, left arm PICC Microbiology Date/Time Source Procedure Growth Status 10/29/18 16:50 Indwelling Cath Urine Culture - Preliminary Gram Negative Bacillus 1 Resulted Laboratory Tests Test 10/29/18 16:50 10/30/18 03:45 Urine Color Brown Urine Appearance Slightly cloudy Urine pH 6 (4.5-8.0) Urine Specific [place] 1.015 (1.005-1.035) Urine Protein 2+ (NEGATIVE) H Urine Glucose (UA) Negative (NEGATIVE) Urine Ketones 1+ (NEGATIVE) H Urine Blood 5+ (NEGATIVE) H Urine Nitrite Positive (NEGATIVE) H Urine Bilirubin 2+ (NEGATIVE) H Urine Ictotest Positive (NEGATIVE) Urine Urobilinogen 4 MG/DL (0.0-1.0) H Urine Leukocyte Esterase 3+ (NEGATIVE) H Urine RBC 10-15 /HPF (0 - 2) H Urine WBC 5-10 /HPF (0 - 2) H Urine Squamous Epithelial Cells Few /LPF (NONE/OCC) Urine Bacteria Few /HPF (NONE) Urine Yeast Moderate /HPF (NONE) H White Blood Count 9.2 K/UL (4.8-10.8) Red Blood Count 2.68 M/UL (4.20-5.40) L Hemoglobin 8.1 G/DL (12.0-16.0) L Hematocrit 25.9 % (37.0-47.0) L Mean Corpuscular Volume 97 FL (80-99) Mean Corpuscular Hemoglobin 30.3 PG (27.0-31.0) Mean Corpuscular Hemoglobin Concent 31.3 G/DL (32.0-36.0) L Red Cell Distribution Width 23.2 % (11.6-14.8) H Platelet Count 62 K/UL (150-450) L Mean Platelet Volume 4.6 FL (6.5-10.1) L Neutrophils (%) (Auto) % (45.0-75.0) Lymphocytes (%) (Auto) % (20.0-45.0) Monocytes (%) (Auto) % (1.0-10.0) Eosinophils (%) (Auto) % (0.0-3.0) Basophils (%) (Auto) % (0.0-2.0) Neutrophils % (Manual) Pending Lymphocytes % (Manual) Pending Platelet Estimate Pending Platelet Morphology Pending Sodium Level 141 MMOL/L (136-145) Potassium Level 3.9 MMOL/L (3.5-5.1) Chloride Level 106 MMOL/L (98-107) Carbon Dioxide Level 25 MMOL/L (21-32) Anion Gap 10 mmol/L (5-15) Blood Urea Nitrogen 16 mg/dL (7-18) Creatinine 1.5 MG/DL (0.55-1.30) H Estimat Glomerular Filtration Rate 35.7 mL/min (>60) Glucose Level 230 MG/DL (74-106) H Calcium Level 9.3 MG/DL (8.5-10.1) Total Bilirubin 9.0 MG/DL (0.2-1.0) H Direct Bilirubin 6.6 MG/DL (0.0-0.3) H Aspartate Amino Transf (AST/SGOT) 78 U/L (15-37) H Alanine Aminotransferase (ALT/SGPT) 69 U/L (12-78) Alkaline Phosphatase 332 U/L (46-116) H Total Protein 5.7 G/DL (6.4-8.2) L Albumin 2.2 G/DL (3.4-5.0) L Globulin 3.5 g/dL Albumin/Globulin Ratio 0.6 (1.0-2.7) L Current Medications Medications (Trade) Dose Ordered Sig/Patricia Route PRN Reason Start Time Stop Time Status Last Admin Dose Admin Albuterol/ Ipratropium (Albuterol/ Ipratropium) 3 ml Q6H PRN HHN shortness of breath 10/29/18 17:30 11/03/18 17:29 Chlorhexidine Gluconate (Nguyen-Hex 2%) 1 applic DAILY@1999 TOPIC 10/17/18 20:00 11/09/18 19:59 10/29/18 19:46 Dextrose (Dextrose 50%) 25 ml Q30M PRN IV Hypoglycemia 10/17/18 14:45 11/10/18 13:44 Dextrose (Dextrose 50%) 50 ml Q30M PRN IV Hypoglycemia 10/17/18 14:45 11/10/18 13:44 Digoxin (Lanoxin) 0.125 mg QOD NG 10/19/18 09:00 11/15/18 08:59 10/29/18 09:26 Diphenhydramine HCl (Benadryl) 25 mg Q6H PRN IVP Itching 10/17/18 14:30 11/08/18 14:29 10/28/18 19:22 Furosemide (Lasix) 40 mg DAILY ORAL 10/29/18 09:00 11/28/18 08:59 10/30/18 08:34 Insulin Aspart (NovoLOG) BEFORE MEALS AND HS SUBQ 10/17/18 16:30 11/10/18 16:29 10/30/18 06:07 Lactulose (Cephulac) 15 gm EVERY 8 HOURS ORAL 10/28/18 14:00 11/12/18 17:59 10/30/18 06:06 Midazolam HCl (Versed 2mg/2ml vial) 1 mg Q2H PRN IVP For Anxiety 10/17/18 14:30 11/11/18 14:29 Pantoprazole (Protonix) 40 mg EVERY 12 HOURS ORAL 10/28/18 21:00 11/27/18 20:59 10/30/18 08:34 Phytonadione (Vitamin K) 10 mg QWEEK SUBQ 11/02/18 09:00 12/02/18 08:59 Rifaximin (Xifaxan) 550 mg EVERY 12 HOURS ORAL 10/27/18 09:00 11/03/18 08:59 10/30/18 08:34 Spironolactone (Aldactone) 100 mg DAILY ORAL 10/27/18 09:00 11/22/18 09:44 10/30/18 08:33 Robert Gipson MD Oct 30, 2018 10:39
--- NOTE | 2018-10-30 10:49 | GI Progress Note ---
Assessment/Plan Problems: (1) Shock liver ICD Codes: K72.00 - Acute and subacute hepatic failure without coma SNOMED: 834869656 (2) Liver cirrhosis ICD Codes: K74.60 - Unspecified cirrhosis of liver SNOMED: 65572280 (3) Septic shock ICD Codes: A41.9 - Sepsis, unspecified organism; R65.21 - Severe sepsis with septic shock SNOMED: 31960954 (4) Sepsis ICD Codes: A41.9 - Sepsis, unspecified organism SNOMED: 55284276 (5) Respiratory disorder with ventilator dependence ICD Codes: J98.9 - Respiratory disorder, unspecified; Z99.11 - Dependence on respirator [ventilator] status SNOMED: 47110693, 653597027 (6) Normocytic anemia ICD Codes: D64.9 - Anemia, unspecified SNOMED: 453781567 Status: progressing Status Narrative Discussed with Dr. Reynolds. Assessment/Plan unsuccessful paracentesis due to limited ascites CT AP pending JAD, SMA, AMA negative hepatitis panel negative OB stool positive x2 stable H&H MELD score is currently 25, may need transfer to liver transplant center. Trend LFTs, downtrending ppi to daily monitor H&H work up for elevated CEA when more stable lasix aldactone 100 fu labs xifaxan and lactulose albumin will check AFP The patient was seen and examined at bedside and all new and available data was reviewed in the patients chart. I agree with the above findings, impression and plan. (Patient seen earlier today. Signature stamp does not reflect patient encounter time.). - Samuel Reynolds MD Subjective Subjective limited, more alert Objective Last 24 Hour Vital Signs Date Time Temp Pulse Resp B/P (MAP) Pulse Ox O2 Delivery O2 Flow Rate FiO2 10/30/18 08:00 Nasal Cannula 2.0 10/30/18 08:00 98.1 105 22 137/72 (93) 96 10/30/18 07:51 104 10/30/18 07:24 98 Nasal Cannula 2.0 28 10/30/18 07:24 Nasal Cannula 2.0 28 10/30/18 04:00 Nasal Cannula 2.0 10/30/18 04:00 98.6 111 24 127/69 (88) 97 10/30/18 03:29 110 10/30/18 00:00 99.1 105 24 124/70 (88) 98 10/30/18 00:00 Nasal Cannula 2.0 10/29/18 23:28 106 10/29/18 20:00 99.0 112 24 124/66 (85) 98 10/29/18 20:00 Nasal Cannula 3.0 10/29/18 19:30 111 10/29/18 19:06 Nasal Cannula 2.0 28 10/29/18 19:06 98 Nasal Cannula 2.0 28 10/29/18 16:00 Nasal Cannula 2.0 10/29/18 16:00 107 10/29/18 16:00 98.4 108 24 154/75 (101) 98 10/29/18 12:00 97.5 110 24 145/72 (96) 98 10/29/18 12:00 Nasal Cannula 2.0 10/29/18 12:00 107 Intake and Output 10/29/18 10/30/18 18:59 06:59 Intake Total 480 ml 240 ml Output Total 100 ml 550 ml Balance 380 ml -310 ml Intake Oral 480 ml 240 ml Output Urine Total 500 ml Stool Total 100 ml 50 ml Laboratory Tests Test 10/29/18 16:50 10/30/18 03:45 Urine Color Brown Urine Appearance Slightly cloudy Urine pH 6 (4.5-8.0) Urine Specific [place] 1.015 (1.005-1.035) Urine Protein 2+ (NEGATIVE) H Urine Glucose (UA) Negative (NEGATIVE) Urine Ketones 1+ (NEGATIVE) H Urine Blood 5+ (NEGATIVE) H Urine Nitrite Positive (NEGATIVE) H Urine Bilirubin 2+ (NEGATIVE) H Urine Ictotest Positive (NEGATIVE) Urine Urobilinogen 4 MG/DL (0.0-1.0) H Urine Leukocyte Esterase 3+ (NEGATIVE) H Urine RBC 10-15 /HPF (0 - 2) H Urine WBC 5-10 /HPF (0 - 2) H Urine Squamous Epithelial Cells Few /LPF (NONE/OCC) Urine Bacteria Few /HPF (NONE) Urine Yeast Moderate /HPF (NONE) H White Blood Count 9.2 K/UL (4.8-10.8) Red Blood Count 2.68 M/UL (4.20-5.40) L Hemoglobin 8.1 G/DL (12.0-16.0) L Hematocrit 25.9 % (37.0-47.0) L Mean Corpuscular Volume 97 FL (80-99) Mean Corpuscular Hemoglobin 30.3 PG (27.0-31.0) Mean Corpuscular Hemoglobin Concent 31.3 G/DL (32.0-36.0) L Red Cell Distribution Width 23.2 % (11.6-14.8) H Platelet Count 62 K/UL (150-450) L Mean Platelet Volume 4.6 FL (6.5-10.1) L Neutrophils (%) (Auto) % (45.0-75.0) Lymphocytes (%) (Auto) % (20.0-45.0) Monocytes (%) (Auto) % (1.0-10.0) Eosinophils (%) (Auto) % (0.0-3.0) Basophils (%) (Auto) % (0.0-2.0) Neutrophils % (Manual) Pending Lymphocytes % (Manual) Pending Platelet Estimate Pending Platelet Morphology Pending Sodium Level 141 MMOL/L (136-145) Potassium Level 3.9 MMOL/L (3.5-5.1) Chloride Level 106 MMOL/L (98-107) Carbon Dioxide Level 25 MMOL/L (21-32) Anion Gap 10 mmol/L (5-15) Blood Urea Nitrogen 16 mg/dL (7-18) Creatinine 1.5 MG/DL (0.55-1.30) H Estimat Glomerular Filtration Rate 35.7 mL/min (>60) Glucose Level 230 MG/DL (74-106) H Calcium Level 9.3 MG/DL (8.5-10.1) Total Bilirubin 9.0 MG/DL (0.2-1.0) H Direct Bilirubin 6.6 MG/DL (0.0-0.3) H Aspartate Amino Transf (AST/SGOT) 78 U/L (15-37) H Alanine Aminotransferase (ALT/SGPT) 69 U/L (12-78) Alkaline Phosphatase 332 U/L (46-116) H Total Protein 5.7 G/DL (6.4-8.2) L Albumin 2.2 G/DL (3.4-5.0) L Globulin 3.5 g/dL Albumin/Globulin Ratio 0.6 (1.0-2.7) L Microbiology Date/Time Source Procedure Growth Status 10/29/18 16:50 Indwelling Cath Urine Culture - Preliminary Gram Negative Bacillus 1 Resulted Height (Feet): 5 Height (Inches): 1.00 Weight (Pounds): 233 General Appearance: WD/WN, no apparent distress, alert, morbidly obese Cardiovascular: normal rate Respiratory/Chest: normal breath sounds, no respiratory distress Abdominal Exam: normal bowel sounds, non tender, soft Extremities: non-tender Cole Serna NP Oct 30, 2018 10:49
[2018-10-30 12:00] VITALS: BP 133/70
--- NOTE | 2018-10-30 12:03 | Surgery Progress Note ---
Surgery Progress Note Subjective Additional Comments tolerating some diet but not much. no n/v. labs improved. Objective Last 24 Hour Vital Signs Date Time Temp Pulse Resp B/P (MAP) Pulse Ox O2 Delivery O2 Flow Rate FiO2 10/30/18 08:00 Nasal Cannula 2.0 10/30/18 08:00 98.1 105 22 137/72 (93) 96 10/30/18 07:51 104 10/30/18 07:24 98 Nasal Cannula 2.0 28 10/30/18 07:24 Nasal Cannula 2.0 28 10/30/18 04:00 Nasal Cannula 2.0 10/30/18 04:00 98.6 111 24 127/69 (88) 97 10/30/18 03:29 110 10/30/18 00:00 99.1 105 24 124/70 (88) 98 10/30/18 00:00 Nasal Cannula 2.0 10/29/18 23:28 106 10/29/18 20:00 99.0 112 24 124/66 (85) 98 10/29/18 20:00 Nasal Cannula 3.0 10/29/18 19:30 111 10/29/18 19:06 Nasal Cannula 2.0 28 10/29/18 19:06 98 Nasal Cannula 2.0 28 10/29/18 16:00 Nasal Cannula 2.0 10/29/18 16:00 107 10/29/18 16:00 98.4 108 24 154/75 (101) 98 I&O Intake and Output 10/29/18 10/30/18 19:00 07:00 Intake Total 480 ml 240 ml Output Total 100 ml 550 ml Balance 380 ml -310 ml Intake Oral 480 ml 240 ml Output Urine Total 500 ml Stool Total 100 ml 50 ml Dressing: other Wound: other Drains: other Cardiovascular: RSR Respiratory: decreased breath sounds Abdomen: soft, non-tender, present bowel sounds Extremities: no tenderness, no cyanosis Laboratory Tests Test 10/29/18 16:50 10/30/18 03:45 Urine Color Brown Urine Appearance Slightly cloudy Urine pH 6 (4.5-8.0) Urine Specific [place] 1.015 (1.005-1.035) Urine Protein 2+ (NEGATIVE) H Urine Glucose (UA) Negative (NEGATIVE) Urine Ketones 1+ (NEGATIVE) H Urine Blood 5+ (NEGATIVE) H Urine Nitrite Positive (NEGATIVE) H Urine Bilirubin 2+ (NEGATIVE) H Urine Ictotest Positive (NEGATIVE) Urine Urobilinogen 4 MG/DL (0.0-1.0) H Urine Leukocyte Esterase 3+ (NEGATIVE) H Urine RBC 10-15 /HPF (0 - 2) H Urine WBC 5-10 /HPF (0 - 2) H Urine Squamous Epithelial Cells Few /LPF (NONE/OCC) Urine Bacteria Few /HPF (NONE) Urine Yeast Moderate /HPF (NONE) H White Blood Count 9.2 K/UL (4.8-10.8) Red Blood Count 2.68 M/UL (4.20-5.40) L Hemoglobin 8.1 G/DL (12.0-16.0) L Hematocrit 25.9 % (37.0-47.0) L Mean Corpuscular Volume 97 FL (80-99) Mean Corpuscular Hemoglobin 30.3 PG (27.0-31.0) Mean Corpuscular Hemoglobin Concent 31.3 G/DL (32.0-36.0) L Red Cell Distribution Width 23.2 % (11.6-14.8) H Platelet Count 62 K/UL (150-450) L Mean Platelet Volume 4.6 FL (6.5-10.1) L Neutrophils (%) (Auto) % (45.0-75.0) Lymphocytes (%) (Auto) % (20.0-45.0) Monocytes (%) (Auto) % (1.0-10.0) Eosinophils (%) (Auto) % (0.0-3.0) Basophils (%) (Auto) % (0.0-2.0) Neutrophils % (Manual) Pending Lymphocytes % (Manual) Pending Platelet Estimate Pending Platelet Morphology Pending Sodium Level 141 MMOL/L (136-145) Potassium Level 3.9 MMOL/L (3.5-5.1) Chloride Level 106 MMOL/L (98-107) Carbon Dioxide Level 25 MMOL/L (21-32) Anion Gap 10 mmol/L (5-15) Blood Urea Nitrogen 16 mg/dL (7-18) Creatinine 1.5 MG/DL (0.55-1.30) H Estimat Glomerular Filtration Rate 35.7 mL/min (>60) Glucose Level 230 MG/DL (74-106) H Calcium Level 9.3 MG/DL (8.5-10.1) Total Bilirubin 9.0 MG/DL (0.2-1.0) H Direct Bilirubin 6.6 MG/DL (0.0-0.3) H Aspartate Amino Transf (AST/SGOT) 78 U/L (15-37) H Alanine Aminotransferase (ALT/SGPT) 69 U/L (12-78) Alkaline Phosphatase 332 U/L (46-116) H Total Protein 5.7 G/DL (6.4-8.2) L Albumin 2.2 G/DL (3.4-5.0) L Globulin 3.5 g/dL Albumin/Globulin Ratio 0.6 (1.0-2.7) L Plan Problems: (1) Multiple injuries due to trauma (2) Sepsis Assessment & Plan: Labs noted lactic acidosis improved with resuscitation CT findings: Limited assessment of the GI tract, due to lack of enteric contrast administration. Exam is also limited due to patient motion artifact and lack of IV contrast administration Evidence of hepatic cirrhosis Small amount of ascites, likely related to the above Surgically absent gallbladder Bilateral basilar pulmonary parenchymal atelectatic changes and possible patchy consolidation Minimal edema of the bilateral flank subcutaneous fat Other findings as noted, including degenerative spondylosis, right hepatic lobe capsular calcification, Quiroz catheter has made a great improvement. denies abd pain. labs improved. decompensated liver cirrhosis LFT's abnormal leukocytosis overall improved but prognosis still guarded Limited assessment of the GI tract, due to lack of enteric contrast administration Abdominal ascites, increased in extent since prior study Increased edema of the subcutaneous fat, since previous study Hepatic surface nodularity, consistent with cirrhosis, also previously reported Borderline splenomegaly Bilateral basilar pulmonary patchy consolidation and atelectasis as well as some congestion. Findings as noted, including degenerative spondylosis, PICC, Quiroz catheter, rectal tube, nasogastric tube CT chest noted ng tube removed Continue with p.o. diet. -lasix -abx as per ID -trend labs will follow with recs thank you (3) Liver cirrhosis Josh Samuel Oct 30, 2018 12:03
[2018-10-30] MEDS: DiphenhydrAMINE 50mg/ml Inj IVP PRN (12:15)
[2018-10-30] MEDS: Piperacillin/Tazobactam 3.375 GM in D5W 110 ML IVPB SCH ×2 (12:52→21:56)
--- NOTE | 2018-10-30 15:34 | Cardiac Electrophysiology PN ---
Assessment/Plan Assessment/Plan 1. Atrial fib with RVR. Off Beta janet or CA janet for hypotension. On Dig 0.125 qod. In SR Off Amiodarone for high LFTs and Bilirubin 7.3 2. S/P Septic shock. On broad spectrum IV antibiotic. 3. Troponin leak. The levels are flat and likely due to this patient's sepsis and septic shock. Her echocardiogram showed ejection fraction 60% to 65% and EKG showed no acute ischemic changes. 4. Nonsustained VT. EF 65% 5. Diabetes. 6. Renal failure. 7. Morbid obesity. 8. Dysphagia, NG removed. Feeding started 9. S/P Respiratory failure, Extubated 10. Cirrhosis, high Bilirubin and ascites. On Lasix 40 po daily and Aldactone 100 daily DW RN and family Subjective Subjective Off restraints. No CP or SOB. RN at bedside Objective Last 24 Hour Vital Signs Date Time Temp Pulse Resp B/P (MAP) Pulse Ox O2 Delivery O2 Flow Rate FiO2 10/30/18 12:00 Nasal Cannula 2.0 10/30/18 12:00 98.1 109 24 133/70 (91) 96 10/30/18 11:44 109 10/30/18 08:00 Nasal Cannula 2.0 10/30/18 08:00 98.1 105 22 137/72 (93) 96 10/30/18 07:51 104 10/30/18 07:24 98 Nasal Cannula 2.0 28 10/30/18 07:24 Nasal Cannula 2.0 28 10/30/18 04:00 Nasal Cannula 2.0 10/30/18 04:00 98.6 111 24 127/69 (88) 97 10/30/18 03:29 110 10/30/18 00:00 99.1 105 24 124/70 (88) 98 10/30/18 00:00 Nasal Cannula 2.0 10/29/18 23:28 106 10/29/18 20:00 99.0 112 24 124/66 (85) 98 10/29/18 20:00 Nasal Cannula 3.0 10/29/18 19:30 111 10/29/18 19:06 Nasal Cannula 2.0 28 10/29/18 19:06 98 Nasal Cannula 2.0 28 10/29/18 16:00 Nasal Cannula 2.0 10/29/18 16:00 107 10/29/18 16:00 98.4 108 24 154/75 (101) 98 Intake and Output 10/29/18 10/30/18 19:00 07:00 Intake Total 480 ml 240 ml Output Total 100 ml 550 ml Balance 380 ml -310 ml Intake Oral 480 ml 240 ml Output Urine Total 500 ml Stool Total 100 ml 50 ml Laboratory Tests Test 10/29/18 16:50 10/30/18 03:45 Urine Color Brown Urine Appearance Slightly cloudy Urine pH 6 (4.5-8.0) Urine Specific [place] 1.015 (1.005-1.035) Urine Protein 2+ (NEGATIVE) H Urine Glucose (UA) Negative (NEGATIVE) Urine Ketones 1+ (NEGATIVE) H Urine Blood 5+ (NEGATIVE) H Urine Nitrite Positive (NEGATIVE) H Urine Bilirubin 2+ (NEGATIVE) H Urine Ictotest Positive (NEGATIVE) Urine Urobilinogen 4 MG/DL (0.0-1.0) H Urine Leukocyte Esterase 3+ (NEGATIVE) H Urine RBC 10-15 /HPF (0 - 2) H Urine WBC 5-10 /HPF (0 - 2) H Urine Squamous Epithelial Cells Few /LPF (NONE/OCC) Urine Bacteria Few /HPF (NONE) Urine Yeast Moderate /HPF (NONE) H White Blood Count 9.2 K/UL (4.8-10.8) Red Blood Count 2.68 M/UL (4.20-5.40) L Hemoglobin 8.1 G/DL (12.0-16.0) L Hematocrit 25.9 % (37.0-47.0) L Mean Corpuscular Volume 97 FL (80-99) Mean Corpuscular Hemoglobin 30.3 PG (27.0-31.0) Mean Corpuscular Hemoglobin Concent 31.3 G/DL (32.0-36.0) L Red Cell Distribution Width 23.2 % (11.6-14.8) H Platelet Count 62 K/UL (150-450) L Mean Platelet Volume 4.6 FL (6.5-10.1) L Neutrophils (%) (Auto) % (45.0-75.0) Lymphocytes (%) (Auto) % (20.0-45.0) Monocytes (%) (Auto) % (1.0-10.0) Eosinophils (%) (Auto) % (0.0-3.0) Basophils (%) (Auto) % (0.0-2.0) Differential Total Cells Counted 100 Neutrophils % (Manual) 71 % (45-75) Lymphocytes % (Manual) 11 % (20-45) L Monocytes % (Manual) 15 % (1-10) H Eosinophils % (Manual) 3 % (0-3) Basophils % (Manual) 0 % (0-2) Band Neutrophils 0 % (0-8) Nucleated Red Blood Cells 1 /100 WBC Platelet Estimate Decreased L Platelet Morphology Normal Polychromasia 1+ Hypochromasia 2+ Anisocytosis 2+ Sodium Level 141 MMOL/L (136-145) Potassium Level 3.9 MMOL/L (3.5-5.1) Chloride Level 106 MMOL/L (98-107) Carbon Dioxide Level 25 MMOL/L (21-32) Anion Gap 10 mmol/L (5-15) Blood Urea Nitrogen 16 mg/dL (7-18) Creatinine 1.5 MG/DL (0.55-1.30) H Estimat Glomerular Filtration Rate 35.7 mL/min (>60) Glucose Level 230 MG/DL (74-106) H Calcium Level 9.3 MG/DL (8.5-10.1) Total Bilirubin 9.0 MG/DL (0.2-1.0) H Direct Bilirubin 6.6 MG/DL (0.0-0.3) H Aspartate Amino Transf (AST/SGOT) 78 U/L (15-37) H Alanine Aminotransferase (ALT/SGPT) 69 U/L (12-78) Alkaline Phosphatase 332 U/L (46-116) H Total Protein 5.7 G/DL (6.4-8.2) L Albumin 2.2 G/DL (3.4-5.0) L Globulin 3.5 g/dL Albumin/Globulin Ratio 0.6 (1.0-2.7) L Microbiology Date/Time Source Procedure Growth Status 10/29/18 16:50 [address] Cath Urine Culture - Preliminary Gram Negative Bacillus 1 Resulted Objective HEAD AND NECK: No JVD. LUNGS: Coarse rhonchi. CARDIOVASCULAR: Regular S1, S2 with no gallop or murmur. ABDOMEN: Obese. EXTREMITIES: No pitting edema. Sean Montanez MD Oct 30, 2018 15:33
--- NOTE | 2018-10-30 15:35 | General Progress Note ---
Assessment/Plan Assessment/Plan Assessment and Recs: # Leukocytosis/Elevated white blood cell count, unspecified likely related to underlying stress reaction, or underlying infection --> have reviewed peripheral smear and bandemia/neutrophilia noted --> continue antibiotics if they have been started by ID team (currently theu have been stopped) --> monitor for resolution -->WBC trend: 14-->10-->15-->12-->11-->10-->8.6-->8.1 # Thrombocytopenia - potential causes multifactorial but most likely contributor is cirrhosis, that is chronic, elevated bili with ascites --> Hep panel and HIV negative --> CT a/p show cirrhosis as well as us --> Peripheral smear ordered to evaluate for blasts /schistocytes is negative --> abx and other meds have been reviewed --> ok for ppx if plt >50k w/ either heparin or lovenox --> Transfuse if Plt < 20k and fever, or if Plt < 10k without fever --> HIT negative, hold off heparin --> Plt trend : 54-->92-->106-->113-->62 # Anemia of iron deficiency as noted with low % sat and tibc elevated --> Anemia workup has been reviewed --> No evidence of hemolysis is noted, peripheral smear has been reviewed. --> Hgb goal >7. Transfuse prn. --> Iron IV X 5 days already given --> Medications have been reviewed # CEA of 10.5 --> Ct of abdomen/pelvis reviewed and is negative --> as per gi recs # Sepsis likely contributing to low plts --> on abx as needed # Shock, hypovolemic and distributive --> per id and pulm/cc care # Multisystem organ failure. # Lactic acidosis. # JONNATHAN. # Abnormal LFTs, likely shock liver. # Abnormal troponin, likely demand ischemia. # Obesity. # Respiratory failure on vent --> now extubated # Afib on meds as per cards The timing of this note does not necessarily reflect the time of the patient was seen. Greatly appreciate consultation! Subjective Allergies: Coded Allergies: No Known Allergies (Unverified , 05/06/18) Subjective 10/12: Pt was seen in ICU on Vent and off pressors, developed atrial fib, wbc trending down to 13, plt trending down to 60 10/14: remains in the icu, monitoring labs, plts stabilizing, remains critically ill, cea elev 10/15: In ICU on Vent and off pressors, plt 62, no events 10/16 wbc trending up at 14,plt low at 48,weaning well from vent. no acute events , family at bedside 10/17: plts remain low, no events, weaned off vent, no complaints, off pressors 10/18: seen by bedside, wbc trending up at 15, plt low at 50, no events, needs video swallow. NGT 10/19: wbc remains elevated, plt 54, no acute distress reported 10/21: seen by bedside, still with lots of NG tube output, wbc 12, plt trending up 10/22: awake, alert,has high NG tube residual, wbc 11, no events 10/23: comfortable, wbc trending down, plt trending up , no events 10/24: Seen by bedside, leukocytosis resolved, no events 10/25: awake, comfortable, Surgery removed NGT, no events 3.15: NG tube was removed yesterday and patient started on diet, comfortable, no events, plt trending up 10/28: seen by bedside, lethargic, no events 10/29: remains extubated, cbc reviewed, bili remains elevated, lethargic, on abx 10/30: awake, tolerating some diet, no events, plt trending down Objective Last 24 Hour Vital Signs Date Time Temp Pulse Resp B/P (MAP) Pulse Ox O2 Delivery O2 Flow Rate FiO2 10/30/18 12:00 Nasal Cannula 2.0 10/30/18 12:00 98.1 109 24 133/70 (91) 96 10/30/18 11:44 109 10/30/18 08:00 Nasal Cannula 2.0 10/30/18 08:00 98.1 105 22 137/72 (93) 96 10/30/18 07:51 104 10/30/18 07:24 98 Nasal Cannula 2.0 28 10/30/18 07:24 Nasal Cannula 2.0 28 10/30/18 04:00 Nasal Cannula 2.0 10/30/18 04:00 98.6 111 24 127/69 (88) 97 10/30/18 03:29 110 10/30/18 00:00 99.1 105 24 124/70 (88) 98 10/30/18 00:00 Nasal Cannula 2.0 10/29/18 23:28 106 10/29/18 20:00 99.0 112 24 124/66 (85) 98 10/29/18 20:00 Nasal Cannula 3.0 10/29/18 19:30 111 10/29/18 19:06 Nasal Cannula 2.0 28 10/29/18 19:06 98 Nasal Cannula 2.0 28 10/29/18 16:00 Nasal Cannula 2.0 10/29/18 16:00 107 10/29/18 16:00 98.4 108 24 154/75 (101) 98 Intake and Output 10/29/18 10/30/18 19:00 07:00 Intake Total 480 ml 240 ml Output Total 100 ml 550 ml Balance 380 ml -310 ml Intake Oral 480 ml 240 ml Output Urine Total 500 ml Stool Total 100 ml 50 ml Laboratory Tests 10/29/18 16:50: Urine Color Brown, Urine Appearance Slightly cloudy, Urine pH 6, Urine Specific [place] 1.015, Urine Protein 2+H, Urine Glucose (UA) Negative, Urine Ketones 1+H , Urine Blood 5+H, Urine Nitrite PositiveH, Urine Bilirubin 2+H, Urine Ictotest Positive, Urine Urobilinogen 4H, Urine Leukocyte Esterase 3+H, Urine RBC 10-15H , Urine WBC 5-10H, Urine Squamous Epithelial Cells Few, Urine Bacteria Few, Urine Yeast ModerateH 10/30/18 03:45: White Blood Count 9.2, Red Blood Count 2.68L, Hemoglobin 8.1L, Hematocrit 25.9L , Mean Corpuscular Volume 97, Mean Corpuscular Hemoglobin 30.3, Mean Corpuscular Hemoglobin Concent 31.3L, Red Cell Distribution Width 23.2H, Platelet Count 62L, Mean Platelet Volume 4.6L, Neutrophils (%) (Auto) , Lymphocytes (%) (Auto) , Monocytes (%) (Auto) , Eosinophils (%) (Auto) , Basophils (%) (Auto) , Differential Total Cells Counted 100, Neutrophils % ( Manual) 71, Lymphocytes % (Manual) 11L, Monocytes % (Manual) 15H, Eosinophils % (Manual) 3, Basophils % (Manual) 0, Band Neutrophils 0, Nucleated Red Blood Cells 1, Platelet Estimate DecreasedL, Platelet Morphology Normal, Polychromasia 1+, Hypochromasia 2+, Anisocytosis 2+, Sodium Level 141, Potassium Level 3.9, Chloride Level 106, Carbon Dioxide Level 25, Anion Gap 10, Blood Urea Nitrogen 16, Creatinine 1.5H, Estimat Glomerular Filtration Rate 35.7 , Glucose Level 230H, Calcium Level 9.3, Total Bilirubin 9.0H, Direct Bilirubin 6.6H, Aspartate Amino Transf (AST/SGOT) 78H, Alanine Aminotransferase (ALT/SGPT ) 69, Alkaline Phosphatase 332H, Total Protein 5.7L, Albumin 2.2L, Globulin 3.5 , Albumin/Globulin Ratio 0.6L Height (Feet): 5 Height (Inches): 1.00 Weight (Pounds): 233 Objective PHYSICAL EXAMINATION: VITAL SIGNS: reviewed, saturating 98% on NC++, GENERAL: She is an obese female, confused. HEENT: Normocephalic and atraumatic. Oropharynx is clear with dry mucous membranes., NECK: Supple without lymphadenopathy or JVP. CHEST: Clear. HEART: Regular. ABDOMEN: Benign. EXTREMITIES: No cyanosis, clubbing, or edema. There are some ecchymoses in bilateral lower extremities. Kurtis Villagomez MD Oct 30, 2018 15:35
--- NOTE | 2018-10-30 15:44 | Pulmonology Progress Note ---
Assessment/Plan Assessment/Plan ASSESSMENT: The patient is a 58-year-old female with a history of obesity, diabetes, hypertension, hyperlipidemia, and sciatica with chronic low back pain , DDD/DJD, presenting after a mechanical fall with altered mental status and confusion with likely sepsis and multisystem organ failure. PROBLEM LIST: 1. VDRF, EXTUBATED 10/16/18 2. Sepsis 3. Shock, hypovolemic and distributive. 4. Multisystem organ failure. 5. Lactic acidosis. 6. Anion gap metabolic acidosis. 7. JONNATHAN - BETTER 7. Abnormal LFTs, likely shock liver. 8. Abnormal troponin, likely demand ischemia. 9. Elevated D-dimer and PASP concerning for an acute PE 10. Obesity. 11. Diabetes. 12. Hypertension. 13. Chronic low back pain and sciatica. 14. Anemia/FOBT + 15. Thrombocytopenia 16. AFcRVR now in NSR 17. HyperNa 18. Herpes labialis TREATMENT PLAN: 1. Optimize pulmonary hygiene/mobilize as tolerated 2. Titrate down FiO2 to keep SaO2 < 90% 3. Abx per ID 5. PO Lasix and Aldactone 6. SSI, monitor BS 7. Follow up cards recs 8. GI and surgery recs, PRN para, NGT out, diet advanced, ENDOSCOPY?, trend LFT' s 9. DVT prophylaxis: SCD 10. FC, discuss GOC, consider palliative care eval Subjective Allergies: Coded Allergies: No Known Allergies (Unverified , 05/06/18) Subjective AFVSS O2 needs stable + cough no SOB no FC Agnieszka PO + BM Objective Last 24 Hour Vital Signs Date Time Temp Pulse Resp B/P (MAP) Pulse Ox O2 Delivery O2 Flow Rate FiO2 10/30/18 12:00 Nasal Cannula 2.0 10/30/18 12:00 98.1 109 24 133/70 (91) 96 10/30/18 11:44 109 10/30/18 08:00 Nasal Cannula 2.0 10/30/18 08:00 98.1 105 22 137/72 (93) 96 10/30/18 07:51 104 10/30/18 07:24 98 Nasal Cannula 2.0 28 10/30/18 07:24 Nasal Cannula 2.0 28 10/30/18 04:00 Nasal Cannula 2.0 10/30/18 04:00 98.6 111 24 127/69 (88) 97 3/19/19 03:29 110 10/30/18 00:00 99.1 105 24 124/70 (88) 98 10/30/18 00:00 Nasal Cannula 2.0 10/29/18 23:28 106 10/29/18 20:00 99.0 112 24 124/66 (85) 98 10/29/18 20:00 Nasal Cannula 3.0 10/29/18 19:30 111 10/29/18 19:06 Nasal Cannula 2.0 28 10/29/18 19:06 98 Nasal Cannula 2.0 28 10/29/18 16:00 Nasal Cannula 2.0 10/29/18 16:00 107 10/29/18 16:00 98.4 108 24 154/75 (101) 98 Intake and Output 10/29/18 10/30/18 19:00 07:00 Intake Total 480 ml 240 ml Output Total 100 ml 550 ml Balance 380 ml -310 ml Intake Oral 480 ml 240 ml Output Urine Total 500 ml Stool Total 100 ml 50 ml General Appearance: no acute distress, cachetic HEENT: normocephalic, atraumatic, mucous membranes moist, other - less icteric Respiratory/Chest: chest wall non-tender, lungs clear, normal breath sounds, no respiratory distress, no accessory muscle use Cardiovascular: normal peripheral pulses, normal rate, regular rhythm Abdomen: normal bowel sounds, soft, non tender, no organomegaly, non distended , no mass Extremities: no cyanosis, no clubbing, other - 1+ MAREK Microbiology Date/Time Source Procedure Growth Status 10/29/18 16:50 Indwelling Cath Urine Culture - Preliminary Gram Negative Bacillus 1 Resulted Laboratory Tests 10/29/18 16:50: Urine Color Brown, Urine Appearance Slightly cloudy, Urine pH 6, Urine Specific [place] 1.015, Urine Protein 2+H, Urine Glucose (UA) Negative, Urine Ketones 1+H , Urine Blood 5+H, Urine Nitrite PositiveH, Urine Bilirubin 2+H, Urine Ictotest Positive, Urine Urobilinogen 4H, Urine Leukocyte Esterase 3+H, Urine RBC 10-15H , Urine WBC 5-10H, Urine Squamous Epithelial Cells Few, Urine Bacteria Few, Urine Yeast ModerateH 10/30/18 03:45: White Blood Count 9.2, Red Blood Count 2.68L, Hemoglobin 8.1L, Hematocrit 25.9L , Mean Corpuscular Volume 97, Mean Corpuscular Hemoglobin 30.3, Mean Corpuscular Hemoglobin Concent 31.3L, Red Cell Distribution Width 23.2H, Platelet Count 62L, Mean Platelet Volume 4.6L, Neutrophils (%) (Auto) , Lymphocytes (%) (Auto) , Monocytes (%) (Auto) , Eosinophils (%) (Auto) , Basophils (%) (Auto) , Differential Total Cells Counted 100, Neutrophils % ( Manual) 71, Lymphocytes % (Manual) 11L, Monocytes % (Manual) 15H, Eosinophils % (Manual) 3, Basophils % (Manual) 0, Band Neutrophils 0, Nucleated Red Blood Cells 1, Platelet Estimate DecreasedL, Platelet Morphology Normal, Polychromasia 1+, Hypochromasia 2+, Anisocytosis 2+, Sodium Level 141, Potassium Level 3.9, Chloride Level 106, Carbon Dioxide Level 25, Anion Gap 10, Blood Urea Nitrogen 16, Creatinine 1.5H, Estimat Glomerular Filtration Rate 35.7 , Glucose Level 230H, Calcium Level 9.3, Total Bilirubin 9.0H, Direct Bilirubin 6.6H, Aspartate Amino Transf (AST/SGOT) 78H, Alanine Aminotransferase (ALT/SGPT ) 69, Alkaline Phosphatase 332H, Total Protein 5.7L, Albumin 2.2L, Globulin 3.5 , Albumin/Globulin Ratio 0.6L Current Medications Medications (Trade) Dose Ordered Sig/Patricia Route PRN Reason Start Time Stop Time Status Last Admin Dose Admin Albuterol/ Ipratropium (Albuterol/ Ipratropium) 3 ml Q6H PRN HHN shortness of breath 10/29/18 17:30 11/03/18 17:29 Chlorhexidine Gluconate (Nguyen-Hex 2%) 1 applic DAILY@1999 TOPIC 10/17/18 20:00 11/09/18 19:59 10/29/18 19:46 Dextrose (Dextrose 50%) 25 ml Q30M PRN IV Hypoglycemia 10/17/18 14:45 11/10/18 13:44 Dextrose (Dextrose 50%) 50 ml Q30M PRN IV Hypoglycemia 10/17/18 14:45 11/10/18 13:44 Digoxin (Lanoxin) 0.125 mg QOD NG 10/19/18 09:00 11/15/18 08:59 10/29/18 09:26 Diphenhydramine HCl (Benadryl) 25 mg Q6H PRN IVP Itching 10/17/18 14:30 11/08/18 14:29 10/30/18 12:15 Furosemide (Lasix) 40 mg DAILY ORAL 10/29/18 09:00 11/28/18 08:59 10/30/18 08:34 Insulin Aspart (NovoLOG) BEFORE MEALS AND HS SUBQ 10/17/18 16:30 11/10/18 16:29 10/30/18 11:55 Lactulose (Cephulac) 15 gm EVERY 8 HOURS ORAL 10/28/18 14:00 11/12/18 17:59 10/30/18 14:06 Midazolam HCl (Versed 2mg/2ml vial) 1 mg Q2H PRN IVP For Anxiety 10/17/18 14:30 11/11/18 14:29 Pantoprazole (Protonix) 40 mg EVERY 12 HOURS ORAL 10/28/18 21:00 11/27/18 20:59 10/30/18 08:34 Phytonadione (Vitamin K) 10 mg QWEEK SUBQ 11/02/18 09:00 12/02/18 08:59 Piperacillin Sod/ Tazobactam Sod 3.375 gm/Dextrose 110 ml @ 27.5 mls/hr EVERY 8 HOURS IVPB 10/30/18 12:00 11/04/18 11:59 10/30/18 12:52 Rifaximin (Xifaxan) 550 mg EVERY 12 HOURS ORAL 10/27/18 09:00 11/03/18 08:59 10/30/18 08:34 Spironolactone (Aldactone) 100 mg DAILY ORAL 10/27/18 09:00 11/22/18 09:44 10/30/18 08:33 Renato Delarosa MD Oct 30, 2018 15:44
[2018-10-30 16:00] VITALS: BP 112/69
--- NOTE | 2018-10-30 16:16 | General Progress Note ---
Assessment/Plan Problem List: (1) Hypotension ICD Codes: I95.9 - Hypotension, unspecified SNOMED: 80617549 (2) Hyperglycemia ICD Codes: R73.9 - Hyperglycemia, unspecified SNOMED: 06842615 (3) Dyspnea ICD Codes: R06.00 - Dyspnea, unspecified SNOMED: 696026484 (4) Hypoxemia ICD Codes: R09.02 - Hypoxemia SNOMED: 793110151 (5) Contusion of left knee ICD Codes: S80.02XA - Contusion of left knee, initial encounter SNOMED: 17603608 (6) Sepsis ICD Codes: A41.9 - Sepsis, unspecified organism SNOMED: 11139195 (7) Septic shock ICD Codes: A41.9 - Sepsis, unspecified organism; R65.21 - Severe sepsis with septic shock SNOMED: 98800304 (8) Liver cirrhosis ICD Codes: K74.60 - Unspecified cirrhosis of liver SNOMED: 62862637 (9) Pneumonia ICD Codes: J18.9 - Pneumonia, unspecified organism SNOMED: 762247165 (10) Respiratory disorder with ventilator dependence ICD Codes: J98.9 - Respiratory disorder, unspecified; Z99.11 - Dependence on respirator [ventilator] status SNOMED: 06193508, 222357255 (11) Shock liver ICD Codes: K72.00 - Acute and subacute hepatic failure without coma SNOMED: 369152172 Status: progressing Assessment/Plan still jaundiced more alert improved lft edema cihrrosis sepsis improved eating well labs stable obesity morbid pna improving encephalopathy Subjective ROS Limited/Unobtainable: Yes Allergies: Coded Allergies: No Known Allergies (Unverified , 05/06/18) Objective Last 24 Hour Vital Signs Date Time Temp Pulse Resp B/P (MAP) Pulse Ox O2 Delivery O2 Flow Rate FiO2 10/30/18 12:00 Nasal Cannula 2.0 10/30/18 12:00 98.1 109 24 133/70 (91) 96 10/30/18 11:44 109 10/30/18 08:00 Nasal Cannula 2.0 10/30/18 08:00 98.1 105 22 137/72 (93) 96 10/30/18 07:51 104 10/30/18 07:24 98 Nasal Cannula 2.0 28 10/30/18 07:24 Nasal Cannula 2.0 28 10/30/18 04:00 Nasal Cannula 2.0 10/30/18 04:00 98.6 111 24 127/69 (88) 97 10/30/18 03:29 110 10/30/18 00:00 99.1 105 24 124/70 (88) 98 10/30/18 00:00 Nasal Cannula 2.0 10/29/18 23:28 106 10/29/18 20:00 99.0 112 24 124/66 (85) 98 10/29/18 20:00 Nasal Cannula 3.0 10/29/18 19:30 111 10/29/18 19:06 Nasal Cannula 2.0 28 10/29/18 19:06 98 Nasal Cannula 2.0 28 Intake and Output 10/29/18 10/30/18 19:00 07:00 Intake Total 480 ml 240 ml Output Total 100 ml 550 ml Balance 380 ml -310 ml Intake Oral 480 ml 240 ml Output Urine Total 500 ml Stool Total 100 ml 50 ml Laboratory Tests 10/29/18 16:50: Urine Color Brown, Urine Appearance Slightly cloudy, Urine pH 6, Urine Specific [place] 1.015, Urine Protein 2+H, Urine Glucose (UA) Negative, Urine Ketones 1+H , Urine Blood 5+H, Urine Nitrite PositiveH, Urine Bilirubin 2+H, Urine Ictotest Positive, Urine Urobilinogen 4H, Urine Leukocyte Esterase 3+H, Urine RBC 10-15H , Urine WBC 5-10H, Urine Squamous Epithelial Cells Few, Urine Bacteria Few, Urine Yeast ModerateH 10/30/18 03:45: White Blood Count 9.2, Red Blood Count 2.68L, Hemoglobin 8.1L, Hematocrit 25.9L , Mean Corpuscular Volume 97, Mean Corpuscular Hemoglobin 30.3, Mean Corpuscular Hemoglobin Concent 31.3L, Red Cell Distribution Width 23.2H, Platelet Count 62L, Mean Platelet Volume 4.6L, Neutrophils (%) (Auto) , Lymphocytes (%) (Auto) , Monocytes (%) (Auto) , Eosinophils (%) (Auto) , Basophils (%) (Auto) , Differential Total Cells Counted 100, Neutrophils % ( Manual) 71, Lymphocytes % (Manual) 11L, Monocytes % (Manual) 15H, Eosinophils % (Manual) 3, Basophils % (Manual) 0, Band Neutrophils 0, Nucleated Red Blood Cells 1, Platelet Estimate DecreasedL, Platelet Morphology Normal, Polychromasia 1+, Hypochromasia 2+, Anisocytosis 2+, Sodium Level 141, Potassium Level 3.9, Chloride Level 106, Carbon Dioxide Level 25, Anion Gap 10, Blood Urea Nitrogen 16, Creatinine 1.5H, Estimat Glomerular Filtration Rate 35.7 , Glucose Level 230H, Calcium Level 9.3, Total Bilirubin 9.0H, Direct Bilirubin 6.6H, Aspartate Amino Transf (AST/SGOT) 78H, Alanine Aminotransferase (ALT/SGPT ) 69, Alkaline Phosphatase 332H, Total Protein 5.7L, Albumin 2.2L, Globulin 3.5 , Albumin/Globulin Ratio 0.6L Height (Feet): 5 Height (Inches): 1.00 Weight (Pounds): 233 General Appearance: alert Respiratory/Chest: lungs clear Abdomen: soft Michael Kelley MD Oct 30, 2018 16:16
--- NOTE | 2018-10-30 16:49 | Nephrology Progress Note ---
Assessment/Plan Problem List: (1) JONNATHAN (acute kidney injury) Assessment: resolving (2) Shock liver (3) Septic shock (4) Respiratory disorder with ventilator dependence Assessment - Acute Oliguric Renal Failure Cr down to 1.1 - Respiratory disorder with s/p mechanical ventilator - Septic shock , Leukocytosis resolved - Pneumonia - Liver cirrhosis - Obese - Anemia . Plan PO K as needed mag IV as needed transfused 2 units previously down on IV fluid K and Phos as needed Hemodynamic support Pulmonary support Monitor renal parameters avoid nephrotoxics as best as possible per orders discussed with RN Subjective ROS Limited/Unobtainable: No Constitutional: Reports: malaise, weakness Objective Objective Last 24 Hour Vital Signs Date Time Temp Pulse Resp B/P (MAP) Pulse Ox O2 Delivery O2 Flow Rate FiO2 10/30/18 16:00 98.1 111 22 112/69 (83) 95 10/30/18 16:00 Nasal Cannula 2.0 10/30/18 15:31 114 10/30/18 12:00 Nasal Cannula 2.0 10/30/18 12:00 98.1 109 24 133/70 (91) 96 10/30/18 11:44 109 10/30/18 08:00 Nasal Cannula 2.0 10/30/18 08:00 98.1 105 22 137/72 (93) 96 10/30/18 07:51 104 10/30/18 07:24 98 Nasal Cannula 2.0 28 10/30/18 07:24 Nasal Cannula 2.0 28 10/30/18 04:00 Nasal Cannula 2.0 10/30/18 04:00 98.6 111 24 127/69 (88) 97 10/30/18 03:29 110 10/30/18 00:00 99.1 105 24 124/70 (88) 98 10/30/18 00:00 Nasal Cannula 2.0 10/29/18 23:28 106 10/29/18 20:00 99.0 112 24 124/66 (85) 98 10/29/18 20:00 Nasal Cannula 3.0 10/29/18 19:30 111 10/29/18 19:06 Nasal Cannula 2.0 28 10/29/18 19:06 98 Nasal Cannula 2.0 28 Intake and Output 10/29/18 10/30/18 19:00 07:00 Intake Total 480 ml 240 ml Output Total 100 ml 550 ml Balance 380 ml -310 ml Intake Oral 480 ml 240 ml Output Urine Total 500 ml Stool Total 100 ml 50 ml Laboratory Tests 10/29/18 16:50: Urine Color Brown, Urine Appearance Slightly cloudy, Urine pH 6, Urine Specific [place] 1.015, Urine Protein 2+H, Urine Glucose (UA) Negative, Urine Ketones 1+H , Urine Blood 5+H, Urine Nitrite PositiveH, Urine Bilirubin 2+H, Urine Ictotest Positive, Urine Urobilinogen 4H, Urine Leukocyte Esterase 3+H, Urine RBC 10-15H , Urine WBC 5-10H, Urine Squamous Epithelial Cells Few, Urine Bacteria Few, Urine Yeast ModerateH 10/30/18 03:45: White Blood Count 9.2, Red Blood Count 2.68L, Hemoglobin 8.1L, Hematocrit 25.9L , Mean Corpuscular Volume 97, Mean Corpuscular Hemoglobin 30.3, Mean Corpuscular Hemoglobin Concent 31.3L, Red Cell Distribution Width 23.2H, Platelet Count 62L, Mean Platelet Volume 4.6L, Neutrophils (%) (Auto) , Lymphocytes (%) (Auto) , Monocytes (%) (Auto) , Eosinophils (%) (Auto) , Basophils (%) (Auto) , Differential Total Cells Counted 100, Neutrophils % ( Manual) 71, Lymphocytes % (Manual) 11L, Monocytes % (Manual) 15H, Eosinophils % (Manual) 3, Basophils % (Manual) 0, Band Neutrophils 0, Nucleated Red Blood Cells 1, Platelet Estimate DecreasedL, Platelet Morphology Normal, Polychromasia 1+, Hypochromasia 2+, Anisocytosis 2+, Sodium Level 141, Potassium Level 3.9, Chloride Level 106, Carbon Dioxide Level 25, Anion Gap 10, Blood Urea Nitrogen 16, Creatinine 1.5H, Estimat Glomerular Filtration Rate 35.7 , Glucose Level 230H, Calcium Level 9.3, Total Bilirubin 9.0H, Direct Bilirubin 6.6H, Aspartate Amino Transf (AST/SGOT) 78H, Alanine Aminotransferase (ALT/SGPT ) 69, Alkaline Phosphatase 332H, Total Protein 5.7L, Albumin 2.2L, Globulin 3.5 , Albumin/Globulin Ratio 0.6L Height (Feet): 5 Height (Inches): 1.00 Weight (Pounds): 233 General Appearance: no apparent distress Cardiovascular: tachycardia Respiratory/Chest: decreased breath sounds Abdomen: distended Objective NO CHANGE Alex Cueto MD Oct 30, 2018 16:49
--- NOTE | 2018-10-30 19:14 | NUR ---
HAND-OFF: Report given to Aislinn Mcclelland RN.
[2018-10-30] MEDS: Dyna-Hex 2% Top Sol 2oz TOPIC SCH (19:43)
--- NOTE | 2018-10-30 19:45 | NUR ---
NURSE NOTES: PATIENT ALERT, ORIENTED, ABLE TO COMMUNICATION, DENIED PAIN OR DISTRESS AT THIS TIME. RESPIRATION REGULAR, ON O2 2LMP VIA NC, O2 SATURATION 94% NOTED, ABDOMEN SOFT, DISTENDED, ROUND AND TENDER, RECTAL TUBE INTACT AND PATENT, BROWN SOLID LIQUID STOOL OUTED, F/C INTACT AND PATENT, DARK BA COLOR URINE OUTED, PICC LINE TO LEFT UPPER ARM, INTACT AND PATENT, MADE LOWER BED POSITION, PROVIDED CALL LIGHT WITHIN REACH, WILL CONTINUE TO MONITOR.
[2018-10-30 20:00] VITALS: BP 130/70
[2018-10-31] VITALS: BP 121/65
--- NOTE | 2018-10-31 | NUR ---
NURSE NOTES: PATIENT ASLEEP STATUS, VSS STABLED AT THIS TIME, WILL CONTINUE PLAN OF CARE.
--- NOTE | 2018-10-31 03:20 | NUR ---
NURSE NOTES: MORNING CARE WAS DONE, PATIENT CONFUSED TO TIME AT THIS TIME, WILL CONTINUE TO MONITOR.
[2018-10-31 04:00] VITALS: BP 121/65
[2018-10-31] MEDS: DiphenhydrAMINE 50mg/ml Inj IVP PRN ×2 (04:05→21:49)
[2018-10-31] MEDS: Lactulose 20gm/30ml UDC ORAL SCH ×3 (06:00→21:49)
[2018-10-31] MEDS: Piperacillin/Tazobactam 3.375 GM in D5W 110 ML IVPB SCH ×3 (06:03→21:48)
[2018-10-31] MEDS: NovoLOG Insulin Flexpen SUBQ SCH ×4 (06:05→20:35)
--- NOTE | 2018-10-31 06:10 | NUR ---
NURSE NOTES: PATIENT WANTED PROBIOTICS DUE TO STOMACHACHE THAT WILL ENDORSE TO DAY SHIFT.
[2018-10-31 06:16] LABS: INR 1.8 (0.9-1.1)
[2018-10-31 06:27] LABS: HEMATOCRIT 25.8 % (37.0-47.0); HEMOGLOBIN 8.2 G/DL (12.0-16.0); MEAN CORPUSCULAR VOLUME 96 FL (80-99); PLATELET COUNT 61 K/UL (150-450); RED BLOOD COUNT 2.68 M/UL (4.20-5.40); RED CELL DISTRIBUTION WIDTH 22.9 % (11.6-14.8); WHITE BLOOD COUNT 10.1 K/UL (4.8-10.8)
[2018-10-31 06:39] LABS: ALANINE AMINOTRANSFERASE 66 U/L (12-78); ALBUMIN 2.1 G/DL (3.4-5.0); ALBUMIN/GLOBULIN RATIO 0.6 (1.0-2.7); ALKALINE PHOSPHATASE 341 U/L (46-116); ANION GAP 10 mmol/L (5-15); ASPARTATE AMINO TRANSFERASE 93 U/L (15-37); BILIRUBIN,TOTAL 9.6 MG/DL (0.2-1.0); BLOOD UREA NITROGEN 18 mg/dL (7-18); CALCIUM 9.2 MG/DL (8.5-10.1); CARBON DIOXIDE 27 MMOL/L (21-32); CHLORIDE 105 MMOL/L (98-107); CREATININE 1.5 MG/DL (0.55-1.30); PHOSPHORUS 3.4 MG/DL (2.5-4.9); POTASSIUM 3.9 MMOL/L (3.5-5.1); SODIUM 142 MMOL/L (136-145)
--- NOTE | 2018-10-31 07:07 | NUR ---
HAND-OFF: Report given to KARI MASON.
--- NOTE | 2018-10-31 07:27 | NUR ---
NURSE NOTES: Received patient from Aislinn Mcclelland RN. Patient is asleep and opens eyes spontaneously. Patient is receiving O2 via Nasal Cannula at 2L/min. Rectal tube is intact and is draining. Quiroz catheter is patent and draining. Left upper PICC line is asymptomatic. Bed is locked, placed in lowest position, side rails up x3. call light within reach. Will continue to monitor.
[2018-10-31 08:00] VITALS: BP 137/67
[2018-10-31] MEDS: Spironolactone 50mg tab ORAL SCH (09:06)
[2018-10-31] MEDS: Digoxin 0.125mg tab NG SCH (09:08)
[2018-10-31] MEDS: Furosemide 40mg tab ORAL SCH (09:08)
--- NOTE | 2018-10-31 09:31 | Pulmonology Progress Note ---
Assessment/Plan Assessment/Plan ASSESSMENT: The patient is a 58-year-old female with a history of obesity, diabetes, hypertension, hyperlipidemia, and sciatica with chronic low back pain , DDD/DJD, presenting after a mechanical fall with altered mental status and confusion with likely sepsis and multisystem organ failure. PROBLEM LIST: 1. VDRF, EXTUBATED 10/16/18 2. Sepsis 3. Shock, hypovolemic and distributive. 4. Multisystem organ failure. 5. Lactic acidosis. 6. Anion gap metabolic acidosis. 7. JONNATHAN - BETTER 7. Abnormal LFTs, likely shock liver. 8. Abnormal troponin, likely demand ischemia. 9. Elevated D-dimer and PASP concerning for an acute PE 10. Obesity. 11. Diabetes. 12. Hypertension. 13. Chronic low back pain and sciatica. 14. Anemia/FOBT + 15. Thrombocytopenia 16. AFcRVR now in NSR 17. HyperNa 18. Herpes labialis TREATMENT PLAN: 1. Optimize pulmonary hygiene/mobilize as tolerated 2. Titrate down FiO2 to keep SaO2 < 90% 3. Abx per ID 5. PO Lasix and Aldactone 6. SSI, monitor BS 7. Follow up cards recs 8. GI and surgery recs, PRN para, NGT out, diet advanced, ENDOSCOPY?, trend LFT' s, F/U markers, possible liver Bx 9. DVT prophylaxis: SCD 10. FC, discuss GOC, consider palliative care eval Subjective Allergies: Coded Allergies: No Known Allergies (Unverified , 05/06/18) Subjective AFVSS O2 needs stable no cough no SOB no FC Agnieszka PO + BM Objective Last 24 Hour Vital Signs Date Time Temp Pulse Resp B/P (MAP) Pulse Ox O2 Delivery O2 Flow Rate FiO2 10/31/18 09:08 105 10/31/18 07:42 110 10/31/18 07:25 Nasal Cannula 2.0 28 10/31/18 07:25 97 Nasal Cannula 2.0 28 10/31/18 04:00 97.5 111 20 121/65 (83) 97 10/31/18 04:00 Nasal Cannula 2.0 10/31/18 03:25 113 10/31/18 00:00 97.9 112 22 121/65 (83) 95 10/31/18 00:00 Nasal Cannula 2.0 10/30/18 23:24 112 10/30/18 22:14 Nasal Cannula 2.0 28 10/30/18 22:13 97 Nasal Cannula 2.0 28 10/30/18 20:00 98.1 112 20 130/70 (90) 94 10/30/18 20:00 Nasal Cannula 2.0 10/30/18 19:03 112 10/30/18 16:00 98.1 111 22 112/69 (83) 95 10/30/18 16:00 Nasal Cannula 2.0 10/30/18 15:31 114 10/30/18 12:00 Nasal Cannula 2.0 10/30/18 12:00 98.1 109 24 133/70 (91) 96 10/30/18 11:44 109 Intake and Output 10/30/18 10/31/18 18:59 06:59 Intake Total 1190.0 ml 470.0 ml Output Total 950 ml 600 ml Balance 240.0 ml -130.0 ml Intake Oral 1080 ml 360 ml IV Total 110.0 ml 110.0 ml Output Urine Total 800 ml 550 ml Stool Total 150 ml 50 ml General Appearance: no acute distress, cachetic - less icteric HEENT: normocephalic, atraumatic, anicteric, mucous membranes moist Respiratory/Chest: chest wall non-tender, lungs clear, normal breath sounds, no respiratory distress, no accessory muscle use Cardiovascular: normal peripheral pulses, normal rate, regular rhythm Abdomen: normal bowel sounds, soft, non tender, no organomegaly, non distended , no mass Extremities: no cyanosis, no clubbing, other - 1+ MAREK Microbiology Date/Time Source Procedure Growth Status 10/29/18 16:50 Indwelling Cath Urine Culture - Preliminary Gram Negative Bacillus 1 Resulted Laboratory Tests 10/31/18 04:20: White Blood Count 10.1, Red Blood Count 2.68L, Hemoglobin 8.2L, Hematocrit 25.8L , Mean Corpuscular Volume 96, Mean Corpuscular Hemoglobin 30.7, Mean Corpuscular Hemoglobin Concent 31.9L, Red Cell Distribution Width 22.9H, Platelet Count 61L, Mean Platelet Volume 5.3L, Neutrophils (%) (Auto) , Lymphocytes (%) (Auto) , Monocytes (%) (Auto) , Eosinophils (%) (Auto) , Basophils (%) (Auto) , Prothrombin Time 18.5H, Prothromb Time International Ratio 1.8H, Activated Partial Thromboplast Time 35H, Sodium Level 142, Potassium Level 3.9, Chloride Level 105, Carbon Dioxide Level 27, Anion Gap 10, Blood Urea Nitrogen 18, Creatinine 1.5H, Estimat Glomerular Filtration Rate 35.7 , Glucose Level 182H, Calcium Level 9.2, Phosphorus Level 3.4, Magnesium Level 1.5L, Total Bilirubin 9.6H, Direct Bilirubin 7.0H, Aspartate Amino Transf (AST/ SGOT) 93H, Alanine Aminotransferase (ALT/SGPT) 66, Alkaline Phosphatase 341H, Total Protein 5.9L, Albumin 2.1L, Globulin 3.8, Albumin/Globulin Ratio 0.6L, Hqauq-3-Hfvshvaufri [Pending], Ceruloplasmin [Pending], Alpha Fetoprotein [ Pending] Current Medications Medications (Trade) Dose Ordered Sig/Patricia Route PRN Reason Start Time Stop Time Status Last Admin Dose Admin Albuterol/ Ipratropium (Albuterol/ Ipratropium) 3 ml Q6H PRN HHN shortness of breath 10/29/18 17:30 11/03/18 17:29 Chlorhexidine Gluconate (Nguyen-Hex 2%) 1 applic DAILY@2000 TOPIC 10/17/18 20:00 11/09/18 19:59 10/30/18 19:43 Dextrose (Dextrose 50%) 25 ml Q30M PRN IV Hypoglycemia 10/17/18 14:45 11/10/18 13:44 Dextrose (Dextrose 50%) 50 ml Q30M PRN IV Hypoglycemia 10/17/18 14:45 11/10/18 13:44 Digoxin (Lanoxin) 0.125 mg QOD NG 10/19/18 09:00 11/15/18 08:59 10/31/18 09:08 Diphenhydramine HCl (Benadryl) 25 mg Q6H PRN IVP Itching 10/17/18 14:30 11/08/18 14:29 10/31/18 04:05 Furosemide (Lasix) 40 mg DAILY ORAL 10/29/18 09:00 11/28/18 08:59 10/31/18 09:08 Insulin Aspart (NovoLOG) BEFORE MEALS AND HS SUBQ 10/17/18 16:30 11/10/18 16:29 10/31/18 06:05 Lactulose (Cephulac) 15 gm EVERY 8 HOURS ORAL 10/28/18 14:00 11/12/18 17:59 10/30/18 21:53 Midazolam HCl (Versed 2mg/2ml vial) 1 mg Q2H PRN IVP For Anxiety 10/17/18 14:30 11/11/18 14:29 Pantoprazole (Protonix) 40 mg EVERY 12 HOURS ORAL 10/28/18 21:00 11/27/18 20:59 10/31/18 09:08 Phytonadione (Vitamin K) 10 mg QWEEK SUBQ 11/02/18 09:00 12/02/18 08:59 Piperacillin Sod/ Tazobactam Sod 3.375 gm/Dextrose 110 ml @ 27.5 mls/hr EVERY 8 HOURS IVPB 10/30/18 12:00 11/04/18 11:59 10/31/18 06:03 Rifaximin (Xifaxan) 550 mg EVERY 12 HOURS ORAL 10/27/18 09:00 11/03/18 08:59 10/31/18 09:08 Spironolactone (Aldactone) 100 mg DAILY ORAL 10/27/18 09:00 11/22/18 09:44 10/31/18 09:06 Renato Delarosa MD Oct 31, 2018 09:31
--- NOTE | 2018-10-31 10:55 | GI Progress Note ---
Assessment/Plan Problems: (1) Shock liver ICD Codes: K72.00 - Acute and subacute hepatic failure without coma SNOMED: 057773272 (2) Liver cirrhosis ICD Codes: K74.60 - Unspecified cirrhosis of liver SNOMED: 81721435 (3) Septic shock ICD Codes: A41.9 - Sepsis, unspecified organism; R65.21 - Severe sepsis with septic shock SNOMED: 09611365 (4) Sepsis ICD Codes: A41.9 - Sepsis, unspecified organism SNOMED: 42121357 (5) Respiratory disorder with ventilator dependence ICD Codes: J98.9 - Respiratory disorder, unspecified; Z99.11 - Dependence on respirator [ventilator] status SNOMED: 70818818, 908957244 (6) Normocytic anemia ICD Codes: D64.9 - Anemia, unspecified SNOMED: 840448695 Status: unchanged Status Narrative Discussed with Dr. Reynolds Assessment/Plan unsuccessful paracentesis due to limited ascites CT AP pending JAD, SMA, AMA negative hepatitis panel negative OB stool positive x2 stable H&H MELD score is currently 25, may need transfer to liver transplant center. Trend LFTs, downtrending ppi to daily monitor H&H work up for elevated CEA when more stable Lasix Aldactone 100 fu labs xifaxan and lactulose albumin will check AFP, antitrypsin, ceruloplasmin >> liver biopsy if negative The patient was seen and examined at bedside and all new and available data was reviewed in the patients chart. I agree with the above findings, impression and plan. (Patient seen earlier today. Signature stamp does not reflect patient encounter time.). - Samuel Reynolds MD Subjective Subjective Abdominal pain this morning Objective Last 24 Hour Vital Signs Date Time Temp Pulse Resp B/P (MAP) Pulse Ox O2 Delivery O2 Flow Rate FiO2 10/31/18 09:08 105 10/31/18 08:00 Nasal Cannula 2.0 10/31/18 08:00 97.9 108 24 137/67 (90) 96 10/31/18 07:42 110 10/31/18 07:25 Nasal Cannula 2.0 28 10/31/18 07:25 97 Nasal Cannula 2.0 28 10/31/18 04:00 97.5 111 20 121/65 (83) 97 10/31/18 04:00 Nasal Cannula 2.0 10/31/18 03:25 113 10/31/18 00:00 97.9 112 22 121/65 (83) 95 10/31/18 00:00 Nasal Cannula 2.0 10/30/18 23:24 112 10/30/18 22:14 Nasal Cannula 2.0 28 10/30/18 22:13 97 Nasal Cannula 2.0 28 10/30/18 20:00 98.1 112 20 130/70 (90) 94 10/30/18 20:00 Nasal Cannula 2.0 10/30/18 19:03 112 10/30/18 16:00 98.1 111 22 112/69 (83) 95 10/30/18 16:00 Nasal Cannula 2.0 10/30/18 15:31 114 10/30/18 12:00 Nasal Cannula 2.0 10/30/18 12:00 98.1 109 24 133/70 (91) 96 10/30/18 11:44 109 Intake and Output 10/30/18 10/31/18 18:59 06:59 Intake Total 1190.0 ml 470.0 ml Output Total 950 ml 600 ml Balance 240.0 ml -130.0 ml Intake Oral 1080 ml 360 ml IV Total 110.0 ml 110.0 ml Output Urine Total 800 ml 550 ml Stool Total 150 ml 50 ml Laboratory Tests Test 10/31/18 04:20 White Blood Count 10.1 K/UL (4.8-10.8) Red Blood Count 2.68 M/UL (4.20-5.40) L Hemoglobin 8.2 G/DL (12.0-16.0) L Hematocrit 25.8 % (37.0-47.0) L Mean Corpuscular Volume 96 FL (80-99) Mean Corpuscular Hemoglobin 30.7 PG (27.0-31.0) Mean Corpuscular Hemoglobin Concent 31.9 G/DL (32.0-36.0) L Red Cell Distribution Width 22.9 % (11.6-14.8) H Platelet Count 61 K/UL (150-450) L Mean Platelet Volume 5.3 FL (6.5-10.1) L Neutrophils (%) (Auto) % (45.0-75.0) Lymphocytes (%) (Auto) % (20.0-45.0) Monocytes (%) (Auto) % (1.0-10.0) Eosinophils (%) (Auto) % (0.0-3.0) Basophils (%) (Auto) % (0.0-2.0) Prothrombin Time 18.5 SEC (9.30-11.50) H Prothromb Time International Ratio 1.8 (0.9-1.1) H Activated Partial Thromboplast Time 35 SEC (23-33) H Sodium Level 142 MMOL/L (136-145) Potassium Level 3.9 MMOL/L (3.5-5.1) Chloride Level 105 MMOL/L (98-107) Carbon Dioxide Level 27 MMOL/L (21-32) Anion Gap 10 mmol/L (5-15) Blood Urea Nitrogen 18 mg/dL (7-18) Creatinine 1.5 MG/DL (0.55-1.30) H Estimat Glomerular Filtration Rate 35.7 mL/min (>60) Glucose Level 182 MG/DL (74-106) H Calcium Level 9.2 MG/DL (8.5-10.1) Phosphorus Level 3.4 MG/DL (2.5-4.9) Magnesium Level 1.5 MG/DL (1.8-2.4) L Total Bilirubin 9.6 MG/DL (0.2-1.0) H Direct Bilirubin 7.0 MG/DL (0.0-0.3) H Aspartate Amino Transf (AST/SGOT) 93 U/L (15-37) H Alanine Aminotransferase (ALT/SGPT) 66 U/L (12-78) Alkaline Phosphatase 341 U/L (46-116) H Total Protein 5.9 G/DL (6.4-8.2) L Albumin 2.1 G/DL (3.4-5.0) L Globulin 3.8 g/dL Albumin/Globulin Ratio 0.6 (1.0-2.7) L Jdhot-[id number] Pending Ceruloplasmin Pending Alpha Fetoprotein Pending Height (Feet): 5 Height (Inches): 1.00 Weight (Pounds): 233 General Appearance: WD/WN, no apparent distress, alert, morbidly obese Cardiovascular: normal rate Respiratory/Chest: normal breath sounds, no respiratory distress Abdominal Exam: normal bowel sounds, non tender, soft Extremities: non-tender Serna,Vika[employer] Oct 31, 2018 10:55
--- NOTE | 2018-10-31 11:55 | General Progress Note ---
Assessment/Plan Assessment/Plan Assessment and Recs: # Leukocytosis/Elevated white blood cell count, unspecified likely related to underlying stress reaction, or underlying infection --> have reviewed peripheral smear and bandemia/neutrophilia noted --> continue antibiotics if they have been started by ID team (currently theu have been stopped) --> monitor for resolution -->WBC trend: 14-->10-->15-->12-->11-->10-->8.6-->8.1-->10 # Thrombocytopenia - potential causes multifactorial but most likely contributor is cirrhosis, that is chronic, elevated bili with ascites --> Hep panel and HIV negative --> CT a/p show cirrhosis as well as us --> Peripheral smear ordered to evaluate for blasts /schistocytes is negative --> abx and other meds have been reviewed --> ok for ppx if plt >50k w/ either heparin or lovenox --> Transfuse if Plt < 20k and fever, or if Plt < 10k without fever --> HIT negative, hold off heparin --> Plt trend : 54-->92-->106-->113-->62-->61 # Anemia of iron deficiency as noted with low % sat and tibc elevated --> Anemia workup has been reviewed --> No evidence of hemolysis is noted, peripheral smear has been reviewed. --> Hgb goal >7. Transfuse prn. --> Iron IV X 5 days already given --> Medications have been reviewed # CEA of 10.5 --> Ct of abdomen/pelvis reviewed and is negative --> as per gi recs # Sepsis likely contributing to low plts --> on abx as needed # Shock, hypovolemic and distributive --> per id and pulm/cc care # Multisystem organ failure. # Lactic acidosis. # JONNATHAN. # Abnormal LFTs, likely shock liver. # Abnormal troponin, likely demand ischemia. # Obesity. # Respiratory failure on vent --> now extubated # Afib on meds as per cards The timing of this note does not necessarily reflect the time of the patient was seen. Greatly appreciate consultation! Subjective Allergies: Coded Allergies: No Known Allergies (Unverified , 05/06/18) Subjective 10/12: Pt was seen in ICU on Vent and off pressors, developed atrial fib, wbc trending down to 13, plt trending down to 60 10/14: remains in the icu, monitoring labs, plts stabilizing, remains critically ill, cea elev 10/15: In ICU on Vent and off pressors, plt 62, no events 10/16 wbc trending up at 14,plt low at 48,weaning well from vent. no acute events , family at bedside 10/17: plts remain low, no events, weaned off vent, no complaints, off pressors 10/18: seen by bedside, wbc trending up at 15, plt low at 50, no events, needs video swallow. NGT 10/19: wbc remains elevated, plt 54, no acute distress reported 10/21: seen by bedside, still with lots of NG tube output, wbc 12, plt trending up 10/22: awake, alert,has high NG tube residual, wbc 11, no events 10/23: comfortable, wbc trending down, plt trending up , no events 10/24: Seen by bedside, leukocytosis resolved, no events 10/25: awake, comfortable, Surgery removed NGT, no events 3.15: NG tube was removed yesterday and patient started on diet, comfortable, no events, plt trending up 10/28: seen by bedside, lethargic, no events 10/29: remains extubated, cbc reviewed, bili remains elevated, lethargic, on abx 10/30: awake, tolerating some diet, no events, plt trending down 10/31: No overnight events reported, awake and comfortable. Objective Last 24 Hour Vital Signs Date Time Temp Pulse Resp B/P (MAP) Pulse Ox O2 Delivery O2 Flow Rate FiO2 10/31/18 09:08 105 10/31/18 08:00 Nasal Cannula 2.0 10/31/18 08:00 97.9 108 24 137/67 (90) 96 10/31/18 07:42 110 10/31/18 07:25 Nasal Cannula 2.0 28 10/31/18 07:25 97 Nasal Cannula 2.0 28 10/31/18 04:00 97.5 111 20 121/65 (83) 97 10/31/18 04:00 Nasal Cannula 2.0 10/31/18 03:25 113 10/31/18 00:00 97.9 112 22 121/65 (83) 95 10/31/18 00:00 Nasal Cannula 2.0 10/30/18 23:24 112 10/30/18 22:14 Nasal Cannula 2.0 28 10/30/18 22:13 97 Nasal Cannula 2.0 28 10/30/18 20:00 98.1 112 20 130/70 (90) 94 10/30/18 20:00 Nasal Cannula 2.0 10/30/18 19:03 112 10/30/18 16:00 98.1 111 22 112/69 (83) 95 10/30/18 16:00 Nasal Cannula 2.0 10/30/18 15:31 114 10/30/18 12:00 Nasal Cannula 2.0 10/30/18 12:00 98.1 109 24 133/70 (91) 96 Intake and Output 10/30/18 10/31/18 18:59 06:59 Intake Total 1190.0 ml 470.0 ml Output Total 950 ml 600 ml Balance 240.0 ml -130.0 ml Intake Oral 1080 ml 360 ml IV Total 110.0 ml 110.0 ml Output Urine Total 800 ml 550 ml Stool Total 150 ml 50 ml Laboratory Tests 10/31/18 04:20: White Blood Count 10.1, Red Blood Count 2.68L, Hemoglobin 8.2L, Hematocrit 25.8L , Mean Corpuscular Volume 96, Mean Corpuscular Hemoglobin 30.7, Mean Corpuscular Hemoglobin Concent 31.9L, Red Cell Distribution Width 22.9H, Platelet Count 61L, Mean Platelet Volume 5.3L, Neutrophils (%) (Auto) , Lymphocytes (%) (Auto) , Monocytes (%) (Auto) , Eosinophils (%) (Auto) , Basophils (%) (Auto) , Prothrombin Time 18.5H, Prothromb Time International Ratio 1.8H, Activated Partial Thromboplast Time 35H, Sodium Level 142, Potassium Level 3.9, Chloride Level 105, Carbon Dioxide Level 27, Anion Gap 10, Blood Urea Nitrogen 18, Creatinine 1.5H, Estimat Glomerular Filtration Rate 35.7 , Glucose Level 182H, Calcium Level 9.2, Phosphorus Level 3.4, Magnesium Level 1.5L, Total Bilirubin 9.6H, Direct Bilirubin 7.0H, Aspartate Amino Transf (AST/ SGOT) 93H, Alanine Aminotransferase (ALT/SGPT) 66, Alkaline Phosphatase 341H, Total Protein 5.9L, Albumin 2.1L, Globulin 3.8, Albumin/Globulin Ratio 0.6L, Coqpc-3-Jmdsjeluwzk [Pending], Ceruloplasmin [Pending], Alpha Fetoprotein [ Pending] Height (Feet): 5 Height (Inches): 1.00 Weight (Pounds): 233 Objective PHYSICAL EXAMINATION: VITAL SIGNS: reviewed, saturating 98% on NC++, GENERAL: She is an obese female, confused. HEENT: Normocephalic and atraumatic. Oropharynx is clear with dry mucous membranes., NECK: Supple without lymphadenopathy or JVP. CHEST: Clear. HEART: Regular. ABDOMEN: Benign. EXTREMITIES: No cyanosis, clubbing, or edema. There are some ecchymoses in bilateral lower extremities. Kurtis Villagomez MD Oct 31, 2018 11:55
[2018-10-31 12:00] VITALS: BP 152/82
--- NOTE | 2018-10-31 12:31 | Infectious Diseases Prog Note ---
Assessment/Plan Assessment/Plan A: 1. Septic Shock resolved.culture are negative so far 2. aspiration pneumonia. 3. acute renal failure , resolved 4. Diabetes mellitus. 5. Obesity. 6. Lactic acidosis. 7. Anemia.s/p transfusion 8. Cirrhosis with ascites 9. Enteritis, ileus resolved 10. Leukocytosis resolved 11. GI bleeding 12. UTI RECOMMENDATION: will f/u Urine culture Continue Zosyn Poor longterm prognosis Subjective ROS Limited/Unobtainable: Yes Allergies: Coded Allergies: No Known Allergies (Unverified , 05/06/18) Objective Vital Signs Last 24 Hour Vital Signs Date Time Temp Pulse Resp B/P (MAP) Pulse Ox O2 Delivery O2 Flow Rate FiO2 10/31/18 09:08 105 10/31/18 08:00 Nasal Cannula 2.0 10/31/18 08:00 97.9 108 24 137/67 (90) 96 10/31/18 07:42 110 10/31/18 07:25 Nasal Cannula 2.0 28 10/31/18 07:25 97 Nasal Cannula 2.0 28 10/31/18 04:00 97.5 111 20 121/65 (83) 97 10/31/18 04:00 Nasal Cannula 2.0 10/31/18 03:25 113 10/31/18 00:00 97.9 112 22 121/65 (83) 95 10/31/18 00:00 Nasal Cannula 2.0 10/30/18 23:24 112 10/30/18 22:14 Nasal Cannula 2.0 28 10/30/18 22:13 97 Nasal Cannula 2.0 28 10/30/18 20:00 98.1 112 20 130/70 (90) 94 10/30/18 20:00 Nasal Cannula 2.0 10/30/18 19:03 112 10/30/18 16:00 98.1 111 22 112/69 (83) 95 10/30/18 16:00 Nasal Cannula 2.0 10/30/18 15:31 114 Height (Feet): 5 Height (Inches): 1.00 Weight (Pounds): 233 HEENT: normocephalic, mucous membranes moist Respiratory/Chest: lungs clear Cardiovascular: tachycardia Abdomen: soft, non tender, other - rectal tube Genitourinary: other - Quiroz catheter Extremities: other - generalized edema Neurologic/Psychiatric: alert, responsive, other Microbiology Date/Time Source Procedure Growth Status 10/29/18 16:50 Indwelling Cath Urine Culture - Preliminary Gram Negative Bacillus 1 Resulted Laboratory Tests Test 10/31/18 04:20 White Blood Count 10.1 K/UL (4.8-10.8) Red Blood Count 2.68 M/UL (4.20-5.40) L Hemoglobin 8.2 G/DL (12.0-16.0) L Hematocrit 25.8 % (37.0-47.0) L Mean Corpuscular Volume 96 FL (80-99) Mean Corpuscular Hemoglobin 30.7 PG (27.0-31.0) Mean Corpuscular Hemoglobin Concent 31.9 G/DL (32.0-36.0) L Red Cell Distribution Width 22.9 % (11.6-14.8) H Platelet Count 61 K/UL (150-450) L Mean Platelet Volume 5.3 FL (6.5-10.1) L Neutrophils (%) (Auto) % (45.0-75.0) Lymphocytes (%) (Auto) % (20.0-45.0) Monocytes (%) (Auto) % (1.0-10.0) Eosinophils (%) (Auto) % (0.0-3.0) Basophils (%) (Auto) % (0.0-2.0) Prothrombin Time 18.5 SEC (9.30-11.50) H Prothromb Time International Ratio 1.8 (0.9-1.1) H Activated Partial Thromboplast Time 35 SEC (23-33) H Sodium Level 142 MMOL/L (136-145) Potassium Level 3.9 MMOL/L (3.5-5.1) Chloride Level 105 MMOL/L (98-107) Carbon Dioxide Level 27 MMOL/L (21-32) Anion Gap 10 mmol/L (5-15) Blood Urea Nitrogen 18 mg/dL (7-18) Creatinine 1.5 MG/DL (0.55-1.30) H Estimat Glomerular Filtration Rate 35.7 mL/min (>60) Glucose Level 182 MG/DL (74-106) H Calcium Level 9.2 MG/DL (8.5-10.1) Phosphorus Level 3.4 MG/DL (2.5-4.9) Magnesium Level 1.5 MG/DL (1.8-2.4) L Total Bilirubin 9.6 MG/DL (0.2-1.0) H Direct Bilirubin 7.0 MG/DL (0.0-0.3) H Aspartate Amino Transf (AST/SGOT) 93 U/L (15-37) H Alanine Aminotransferase (ALT/SGPT) 66 U/L (12-78) Alkaline Phosphatase 341 U/L (46-116) H Total Protein 5.9 G/DL (6.4-8.2) L Albumin 2.1 G/DL (3.4-5.0) L Globulin 3.8 g/dL Albumin/Globulin Ratio 0.6 (1.0-2.7) L Gnacc-5-Ipnuuzjgaun Pending Ceruloplasmin Pending Alpha Fetoprotein Pending Current Medications Medications (Trade) Dose Ordered Sig/Patricia Route PRN Reason Start Time Stop Time Status Last Admin Dose Admin Albuterol/ Ipratropium (Albuterol/ Ipratropium) 3 ml Q6H PRN HHN shortness of breath 10/29/18 17:30 11/03/18 17:29 Chlorhexidine Gluconate (Ngyuen-Hex 2%) 1 applic DAILY@2000 TOPIC 10/17/18 20:00 11/09/18 19:59 10/30/18 19:43 Dextrose (Dextrose 50%) 25 ml Q30M PRN IV Hypoglycemia 10/17/18 14:45 11/10/18 13:44 Dextrose (Dextrose 50%) 50 ml Q30M PRN IV Hypoglycemia 10/17/18 14:45 11/10/18 13:44 Digoxin (Lanoxin) 0.125 mg QOD NG 10/19/18 09:00 11/15/18 08:59 10/31/18 09:08 Diphenhydramine HCl (Benadryl) 25 mg Q6H PRN IVP Itching 10/17/18 14:30 11/08/18 14:29 10/31/18 04:05 Furosemide (Lasix) 40 mg DAILY ORAL 10/29/18 09:00 11/28/18 08:59 10/31/18 09:08 Insulin Aspart (NovoLOG) BEFORE MEALS AND HS SUBQ 10/17/18 16:30 11/10/18 16:29 10/31/18 11:27 Lactulose (Cephulac) 15 gm EVERY 8 HOURS ORAL 10/28/18 14:00 11/12/18 17:59 10/30/18 21:53 Magnesium Sulfate 100 ml @ 100 mls/hr Q1H IVPB 10/31/18 13:00 10/31/18 16:59 Midazolam HCl (Versed 2mg/2ml vial) 1 mg Q2H PRN IVP For Anxiety 10/17/18 14:30 11/11/18 14:29 Pantoprazole (Protonix) 40 mg EVERY 12 HOURS ORAL 10/28/18 21:00 11/27/18 20:59 10/31/18 09:08 Phytonadione (Vitamin K) 10 mg QWEEK SUBQ 11/02/18 09:00 12/02/18 08:59 Piperacillin Sod/ Tazobactam Sod 3.375 gm/Dextrose 110 ml @ 27.5 mls/hr EVERY 8 HOURS IVPB 10/30/18 12:00 11/04/18 11:59 10/31/18 06:03 Rifaximin (Xifaxan) 550 mg EVERY 12 HOURS ORAL 10/27/18 09:00 11/03/18 08:59 10/31/18 09:08 Spironolactone (Aldactone) 100 mg DAILY ORAL 10/27/18 09:00 11/22/18 09:44 10/31/18 09:06 Wesley Akers MD Oct 31, 2018 12:31
--- NOTE | 2018-10-31 14:08 | Surgery Progress Note ---
Surgery Progress Note Subjective Additional Comments spoke with her and her at bedside. states she is feeling better. no pain. no nv/f/c. tolerating diet. she wants to get up and go home. has not been walking in some time now. stool+ labs noted. Objective Last 24 Hour Vital Signs Date Time Temp Pulse Resp B/P (MAP) Pulse Ox O2 Delivery O2 Flow Rate FiO2 10/31/18 12:00 Nasal Cannula 2.0 10/31/18 12:00 97.9 108 30 152/82 (105) 95 10/31/18 11:26 108 10/31/18 09:08 105 10/31/18 08:00 Nasal Cannula 2.0 10/31/18 08:00 97.9 108 24 137/67 (90) 96 10/31/18 07:42 110 10/31/18 07:25 Nasal Cannula 2.0 28 10/31/18 07:25 97 Nasal Cannula 2.0 28 10/31/18 04:00 97.5 111 20 121/65 (83) 97 10/31/18 04:00 Nasal Cannula 2.0 10/31/18 03:25 113 10/31/18 00:00 97.9 112 22 121/65 (83) 95 10/31/18 00:00 Nasal Cannula 2.0 10/30/18 23:24 112 10/30/18 22:14 Nasal Cannula 2.0 28 10/30/18 22:13 97 Nasal Cannula 2.0 28 10/30/18 20:00 98.1 112 20 130/70 (90) 94 10/30/18 20:00 Nasal Cannula 2.0 10/30/18 19:03 112 10/30/18 16:00 98.1 111 22 112/69 (83) 95 10/30/18 16:00 Nasal Cannula 2.0 10/30/18 15:31 114 I&O Intake and Output 10/30/18 10/31/18 18:59 06:59 Intake Total 1190.0 ml 470.0 ml Output Total 950 ml 600 ml Balance 240.0 ml -130.0 ml Intake Oral 1080 ml 360 ml IV Total 110.0 ml 110.0 ml Output Urine Total 800 ml 550 ml Stool Total 150 ml 50 ml Dressing: saturated Wound: other Drains: other Cardiovascular: RSR Respiratory: decreased breath sounds Abdomen: soft, non-tender, present bowel sounds, non-distended Extremities: no tenderness, no cyanosis Laboratory Tests Test 10/31/18 04:20 White Blood Count 10.1 K/UL (4.8-10.8) Red Blood Count 2.68 M/UL (4.20-5.40) L Hemoglobin 8.2 G/DL (12.0-16.0) L Hematocrit 25.8 % (37.0-47.0) L Mean Corpuscular Volume 96 FL (80-99) Mean Corpuscular Hemoglobin 30.7 PG (27.0-31.0) Mean Corpuscular Hemoglobin Concent 31.9 G/DL (32.0-36.0) L Red Cell Distribution Width 22.9 % (11.6-14.8) H Platelet Count 61 K/UL (150-450) L Mean Platelet Volume 5.3 FL (6.5-10.1) L Neutrophils (%) (Auto) % (45.0-75.0) Lymphocytes (%) (Auto) % (20.0-45.0) Monocytes (%) (Auto) % (1.0-10.0) Eosinophils (%) (Auto) % (0.0-3.0) Basophils (%) (Auto) % (0.0-2.0) Prothrombin Time 18.5 SEC (9.30-11.50) H Prothromb Time International Ratio 1.8 (0.9-1.1) H Activated Partial Thromboplast Time 35 SEC (23-33) H Sodium Level 142 MMOL/L (136-145) Potassium Level 3.9 MMOL/L (3.5-5.1) Chloride Level 105 MMOL/L (98-107) Carbon Dioxide Level 27 MMOL/L (21-32) Anion Gap 10 mmol/L (5-15) Blood Urea Nitrogen 18 mg/dL (7-18) Creatinine 1.5 MG/DL (0.55-1.30) H Estimat Glomerular Filtration Rate 35.7 mL/min (>60) Glucose Level 182 MG/DL (74-106) H Calcium Level 9.2 MG/DL (8.5-10.1) Phosphorus Level 3.4 MG/DL (2.5-4.9) Magnesium Level 1.5 MG/DL (1.8-2.4) L Total Bilirubin 9.6 MG/DL (0.2-1.0) H Direct Bilirubin 7.0 MG/DL (0.0-0.3) H Aspartate Amino Transf (AST/SGOT) 93 U/L (15-37) H Alanine Aminotransferase (ALT/SGPT) 66 U/L (12-78) Alkaline Phosphatase 341 U/L (46-116) H Total Protein 5.9 G/DL (6.4-8.2) L Albumin 2.1 G/DL (3.4-5.0) L Globulin 3.8 g/dL Albumin/Globulin Ratio 0.6 (1.0-2.7) L Llfut-6-Dygxryxnrpa Pending Ceruloplasmin Pending Alpha Fetoprotein Pending Plan Problems: (1) Multiple injuries due to trauma (2) Sepsis Assessment & Plan: Labs noted lactic acidosis improved with resuscitation CT findings: Limited assessment of the GI tract, due to lack of enteric contrast administration. Exam is also limited due to patient motion artifact and lack of IV contrast administration Evidence of hepatic cirrhosis Small amount of ascites, likely related to the above Surgically absent gallbladder Bilateral basilar pulmonary parenchymal atelectatic changes and possible patchy consolidation Minimal edema of the bilateral flank subcutaneous fat Other findings as noted, including degenerative spondylosis, right hepatic lobe capsular calcification, Quiroz catheter has made a great improvement. denies abd pain. labs improved. decompensated liver cirrhosis LFT's abnormal leukocytosis overall improved but prognosis still guarded Limited assessment of the GI tract, due to lack of enteric contrast administration Abdominal ascites, increased in extent since prior study Increased edema of the subcutaneous fat, since previous study Hepatic surface nodularity, consistent with cirrhosis, also previously reported Borderline splenomegaly Bilateral basilar pulmonary patchy consolidation and atelectasis as well as some congestion. Findings as noted, including degenerative spondylosis, PICC, Quiroz catheter, rectal tube, nasogastric tube CT chest noted ng tube removed Continue with p.o. diet. goals of care for patient; liver center? comfort? snf? -trend labs will follow with recs thank you (3) Liver cirrhosis Josh Samuel Oct 31, 2018 14:08
[2018-10-31 16:00] VITALS: BP 132/66
--- NOTE | 2018-10-31 16:26 | Nephrology Progress Note ---
Assessment/Plan Problem List: (1) JONNATHAN (acute kidney injury) Assessment: resolving (2) Shock liver (3) Septic shock (4) Respiratory disorder with ventilator dependence Assessment - Acute Oliguric Renal Failure Cr down to 1.1 - Respiratory disorder with s/p mechanical ventilator - Septic shock , Leukocytosis resolved - Pneumonia - Liver cirrhosis - Obese - Anemia . Plan PO K as needed mag IV as needed transfused 2 units previously down on IV fluid K and Phos as needed Hemodynamic support Pulmonary support Monitor renal parameters avoid nephrotoxics as best as possible per orders discussed with RN Subjective ROS Limited/Unobtainable: No Constitutional: Reports: malaise Objective Objective Last 24 Hour Vital Signs Date Time Temp Pulse Resp B/P (MAP) Pulse Ox O2 Delivery O2 Flow Rate FiO2 10/31/18 16:00 Nasal Cannula 2.0 10/31/18 15:32 106 10/31/18 12:00 Nasal Cannula 2.0 10/31/18 12:00 97.9 108 30 152/82 (105) 95 10/31/18 11:26 108 10/31/18 09:08 105 10/31/18 08:00 Nasal Cannula 2.0 10/31/18 08:00 97.9 108 24 137/67 (90) 96 10/31/18 07:42 110 10/31/18 07:25 Nasal Cannula 2.0 28 10/31/18 07:25 97 Nasal Cannula 2.0 28 10/31/18 04:00 97.5 111 20 121/65 (83) 97 10/31/18 04:00 Nasal Cannula 2.0 10/31/18 03:25 113 10/31/18 00:00 97.9 112 22 121/65 (83) 95 10/31/18 00:00 Nasal Cannula 2.0 10/30/18 23:24 112 10/30/18 22:14 Nasal Cannula 2.0 28 10/30/18 22:13 97 Nasal Cannula 2.0 28 10/30/18 20:00 98.1 112 20 130/70 (90) 94 10/30/18 20:00 Nasal Cannula 2.0 10/30/18 19:03 112 Intake and Output 10/30/18 10/31/18 19:00 07:00 Intake Total 1190.0 ml 470.0 ml Output Total 950 ml 600 ml Balance 240.0 ml -130.0 ml Intake Oral 1080 ml 360 ml IV Total 110.0 ml 110.0 ml Output Urine Total 800 ml 550 ml Stool Total 150 ml 50 ml Laboratory Tests 10/31/18 04:20: White Blood Count 10.1, Red Blood Count 2.68L, Hemoglobin 8.2L, Hematocrit 25.8L , Mean Corpuscular Volume 96, Mean Corpuscular Hemoglobin 30.7, Mean Corpuscular Hemoglobin Concent 31.9L, Red Cell Distribution Width 22.9H, Platelet Count 61L, Mean Platelet Volume 5.3L, Neutrophils (%) (Auto) , Lymphocytes (%) (Auto) , Monocytes (%) (Auto) , Eosinophils (%) (Auto) , Basophils (%) (Auto) , Prothrombin Time 18.5H, Prothromb Time International Ratio 1.8H, Activated Partial Thromboplast Time 35H, Sodium Level 142, Potassium Level 3.9, Chloride Level 105, Carbon Dioxide Level 27, Anion Gap 10, Blood Urea Nitrogen 18, Creatinine 1.5H, Estimat Glomerular Filtration Rate 35.7 , Glucose Level 182H, Calcium Level 9.2, Phosphorus Level 3.4, Magnesium Level 1.5L, Total Bilirubin 9.6H, Direct Bilirubin 7.0H, Aspartate Amino Transf (AST/ SGOT) 93H, Alanine Aminotransferase (ALT/SGPT) 66, Alkaline Phosphatase 341H, Total Protein 5.9L, Albumin 2.1L, Globulin 3.8, Albumin/Globulin Ratio 0.6L, Ldvvq-3-Xhelqdqcqgy [Pending], Ceruloplasmin [Pending], Alpha Fetoprotein [ Pending] Height (Feet): 5 Height (Inches): 1.00 Weight (Pounds): 233 General Appearance: no apparent distress Objective NO CHANGE Alex Cueto MD Oct 31, 2018 16:26
--- NOTE | 2018-10-31 16:32 | Cardiac Electrophysiology PN ---
Assessment/Plan Assessment/Plan 1. Atrial fib with RVR. Off Beta janet or CA janet for hypotension. On Dig 0.125 qod. In SR Off Amiodarone for high LFTs and Bilirubin 7.3 2. S/P Septic shock. On broad spectrum IV antibiotic. 3. Troponin leak. The levels are flat and likely due to this patient's sepsis and septic shock. Her echocardiogram showed ejection fraction 60% to 65% and EKG showed no acute ischemic changes. 4. Nonsustained VT. EF 65% 5. Diabetes. 6. Renal failure. 7. Morbid obesity. 8. Dysphagia, NG removed. Feeding started 9. S/P Respiratory failure, Extubated 10. Cirrhosis, high Bilirubin and ascites. On Lasix 40 po daily and Aldactone 100 daily DW RN Subjective Subjective Off restraints. No events. and RN at bedside Objective Last 24 Hour Vital Signs Date Time Temp Pulse Resp B/P (MAP) Pulse Ox O2 Delivery O2 Flow Rate FiO2 10/31/18 16:00 Nasal Cannula 2.0 10/31/18 15:32 106 10/31/18 12:00 Nasal Cannula 2.0 10/31/18 12:00 97.9 108 30 152/82 (105) 95 10/31/18 11:26 108 10/31/18 09:08 105 10/31/18 08:00 Nasal Cannula 2.0 10/31/18 08:00 97.9 108 24 137/67 (90) 96 10/31/18 07:42 110 10/31/18 07:25 Nasal Cannula 2.0 28 10/31/18 07:25 97 Nasal Cannula 2.0 28 10/31/18 04:00 97.5 111 20 121/65 (83) 97 10/31/18 04:00 Nasal Cannula 2.0 10/31/18 03:25 113 10/31/18 00:00 97.9 112 22 121/65 (83) 95 10/31/18 00:00 Nasal Cannula 2.0 10/30/18 23:24 112 10/30/18 22:14 Nasal Cannula 2.0 28 10/30/18 22:13 97 Nasal Cannula 2.0 28 10/30/18 20:00 98.1 112 20 130/70 (90) 94 10/30/18 20:00 Nasal Cannula 2.0 10/30/18 19:03 112 Intake and Output 10/30/18 10/31/18 19:00 07:00 Intake Total 1190.0 ml 470.0 ml Output Total 950 ml 600 ml Balance 240.0 ml -130.0 ml Intake Oral 1080 ml 360 ml IV Total 110.0 ml 110.0 ml Output Urine Total 800 ml 550 ml Stool Total 150 ml 50 ml Laboratory Tests Test 10/31/18 04:20 White Blood Count 10.1 K/UL (4.8-10.8) Red Blood Count 2.68 M/UL (4.20-5.40) L Hemoglobin 8.2 G/DL (12.0-16.0) L Hematocrit 25.8 % (37.0-47.0) L Mean Corpuscular Volume 96 FL (80-99) Mean Corpuscular Hemoglobin 30.7 PG (27.0-31.0) Mean Corpuscular Hemoglobin Concent 31.9 G/DL (32.0-36.0) L Red Cell Distribution Width 22.9 % (11.6-14.8) H Platelet Count 61 K/UL (150-450) L Mean Platelet Volume 5.3 FL (6.5-10.1) L Neutrophils (%) (Auto) % (45.0-75.0) Lymphocytes (%) (Auto) % (20.0-45.0) Monocytes (%) (Auto) % (1.0-10.0) Eosinophils (%) (Auto) % (0.0-3.0) Basophils (%) (Auto) % (0.0-2.0) Prothrombin Time 18.5 SEC (9.30-11.50) H Prothromb Time International Ratio 1.8 (0.9-1.1) H Activated Partial Thromboplast Time 35 SEC (23-33) H Sodium Level 142 MMOL/L (136-145) Potassium Level 3.9 MMOL/L (3.5-5.1) Chloride Level 105 MMOL/L (98-107) Carbon Dioxide Level 27 MMOL/L (21-32) Anion Gap 10 mmol/L (5-15) Blood Urea Nitrogen 18 mg/dL (7-18) Creatinine 1.5 MG/DL (0.55-1.30) H Estimat Glomerular Filtration Rate 35.7 mL/min (>60) Glucose Level 182 MG/DL (74-106) H Calcium Level 9.2 MG/DL (8.5-10.1) Phosphorus Level 3.4 MG/DL (2.5-4.9) Magnesium Level 1.5 MG/DL (1.8-2.4) L Total Bilirubin 9.6 MG/DL (0.2-1.0) H Direct Bilirubin 7.0 MG/DL (0.0-0.3) H Aspartate Amino Transf (AST/SGOT) 93 U/L (15-37) H Alanine Aminotransferase (ALT/SGPT) 66 U/L (12-78) Alkaline Phosphatase 341 U/L (46-116) H Total Protein 5.9 G/DL (6.4-8.2) L Albumin 2.1 G/DL (3.4-5.0) L Globulin 3.8 g/dL Albumin/Globulin Ratio 0.6 (1.0-2.7) L Fhzxb-5-Qnhlxiepila Pending Ceruloplasmin Pending Alpha Fetoprotein Pending Microbiology Date/Time Source Procedure Growth Status 10/29/18 16:50 Indwelling Cath Urine Culture - Preliminary Gram Negative Bacillus 1 Resulted Objective HEAD AND NECK: No JVD. LUNGS: Coarse rhonchi. CARDIOVASCULAR: Regular S1, S2 with no gallop or murmur. ABDOMEN: Obese. EXTREMITIES: No pitting edema. Sean Montanez MD Oct 31, 2018 16:32
[2018-10-31] MEDS: Morphine Sulfate 2mg/ml Inj(IV/IM USE ONLY) IVP PRN (18:34)
--- NOTE | 2018-10-31 19:06 | NUR ---
HAND-OFF: Report given to Carlos Herman RN.NURSE NOTES:
--- NOTE | 2018-10-31 19:07 | NUR ---
NURSE NOTES: Report received from Buck Abraham RN. Patient seen in bed in semi nunez position with family members by bedside. On oxygen 2L/min via NC with sp02 97%. Rectal tube and medina cath present and both is intact. Noted with PICC line to right upper arm and is intact. Patient is alert, verbally responsive, able to make needs known. Denies any pain at this time. Bed is in lowest position. call light is within easy reach while in room. will continue to monitor.
[2018-10-31 20:00] VITALS: BP 106/68
[2018-10-31] MEDS: Dyna-Hex 2% Top Sol 2oz TOPIC SCH (20:34)
--- NOTE | 2018-10-31 21:10 | General Progress Note ---
Assessment/Plan Problem List: (1) Hypotension ICD Codes: I95.9 - Hypotension, unspecified SNOMED: 31337694 (2) Hyperglycemia ICD Codes: R73.9 - Hyperglycemia, unspecified SNOMED: 13100384 (3) Dyspnea ICD Codes: R06.00 - Dyspnea, unspecified SNOMED: 163217169 (4) Hypoxemia ICD Codes: R09.02 - Hypoxemia SNOMED: 901182066 (5) Contusion of left knee ICD Codes: S80.02XA - Contusion of left knee, initial encounter SNOMED: 82654727 (6) Sepsis ICD Codes: A41.9 - Sepsis, unspecified organism SNOMED: 97740796 (7) Septic shock ICD Codes: A41.9 - Sepsis, unspecified organism; R65.21 - Severe sepsis with septic shock SNOMED: 68501277 (8) Liver cirrhosis ICD Codes: K74.60 - Unspecified cirrhosis of liver SNOMED: 94174339 (9) Pneumonia ICD Codes: J18.9 - Pneumonia, unspecified organism SNOMED: 173991909 (10) Respiratory disorder with ventilator dependence ICD Codes: J98.9 - Respiratory disorder, unspecified; Z99.11 - Dependence on respirator [ventilator] status SNOMED: 81487847, 753688973 (11) Shock liver ICD Codes: K72.00 - Acute and subacute hepatic failure without coma SNOMED: 710377008 Status: deteriorating Assessment/Plan still jaundiced more lethargic check ammonia level hepatic encephalopathy improved lft edema cihrrosis Subjective ROS Limited/Unobtainable: Yes Allergies: Coded Allergies: No Known Allergies (Unverified , 05/06/18) Objective Last 24 Hour Vital Signs Date Time Temp Pulse Resp B/P (MAP) Pulse Ox O2 Delivery O2 Flow Rate FiO2 10/31/18 19:04 98.2 10/31/18 16:00 98.2 107 20 132/66 (88) 95 10/31/18 16:00 Nasal Cannula 2.0 10/31/18 15:32 106 10/31/18 12:00 Nasal Cannula 2.0 10/31/18 12:00 97.9 108 30 152/82 (105) 95 10/31/18 11:26 108 10/31/18 09:08 105 10/31/18 08:00 Nasal Cannula 2.0 10/31/18 08:00 97.9 108 24 137/67 (90) 96 10/31/18 07:42 110 10/31/18 07:25 Nasal Cannula 2.0 28 10/31/18 07:25 97 Nasal Cannula 2.0 28 10/31/18 04:00 97.5 111 20 121/65 (83) 97 10/31/18 04:00 Nasal Cannula 2.0 10/31/18 03:25 113 10/31/18 00:00 97.9 112 22 121/65 (83) 95 10/31/18 00:00 Nasal Cannula 2.0 10/30/18 23:24 112 10/30/18 22:14 Nasal Cannula 2.0 28 10/30/18 22:13 97 Nasal Cannula 2.0 28 Intake and Output 10/30/18 10/31/18 19:00 07:00 Intake Total 1190.0 ml 470.0 ml Output Total 950 ml 600 ml Balance 240.0 ml -130.0 ml Intake Oral 1080 ml 360 ml IV Total 110.0 ml 110.0 ml Output Urine Total 800 ml 550 ml Stool Total 150 ml 50 ml Laboratory Tests 10/31/18 04:20: White Blood Count 10.1, Red Blood Count 2.68L, Hemoglobin 8.2L, Hematocrit 25.8L , Mean Corpuscular Volume 96, Mean Corpuscular Hemoglobin 30.7, Mean Corpuscular Hemoglobin Concent 31.9L, Red Cell Distribution Width 22.9H, Platelet Count 61L, Mean Platelet Volume 5.3L, Neutrophils (%) (Auto) , Lymphocytes (%) (Auto) , Monocytes (%) (Auto) , Eosinophils (%) (Auto) , Basophils (%) (Auto) , Prothrombin Time 18.5H, Prothromb Time International Ratio 1.8H, Activated Partial Thromboplast Time 35H, Sodium Level 142, Potassium Level 3.9, Chloride Level 105, Carbon Dioxide Level 27, Anion Gap 10, Blood Urea Nitrogen 18, Creatinine 1.5H, Estimat Glomerular Filtration Rate 35.7 , Glucose Level 182H, Calcium Level 9.2, Phosphorus Level 3.4, Magnesium Level 1.5L, Total Bilirubin 9.6H, Direct Bilirubin 7.0H, Aspartate Amino Transf (AST/ SGOT) 93H, Alanine Aminotransferase (ALT/SGPT) 66, Alkaline Phosphatase 341H, Total Protein 5.9L, Albumin 2.1L, Globulin 3.8, Albumin/Globulin Ratio 0.6L, Ocbxj-7-Onaiobyorps [Pending], Ceruloplasmin [Pending], Alpha Fetoprotein [ Pending] Height (Feet): 5 Height (Inches): 1.00 Weight (Pounds): 233 General Appearance: lethargic, confused Respiratory/Chest: chest wall non-tender Abdomen: soft Michael Kelley MD Oct 31, 2018 21:10
[2018-11-01] VITALS: BP 124/69
[2018-11-01 04:00] VITALS: BP 130/73
[2018-11-01] MEDS: Piperacillin/Tazobactam 3.375 GM in D5W 110 ML IVPB SCH (05:41)
[2018-11-01] MEDS: Lactulose 20gm/30ml UDC ORAL SCH ×3 (05:41→21:15)
[2018-11-01 05:42] LABS: HEMATOCRIT 25.6 % (37.0-47.0); HEMOGLOBIN 8.2 G/DL (12.0-16.0); MEAN CORPUSCULAR VOLUME 97 FL (80-99); PLATELET COUNT 61 K/UL (150-450); RED BLOOD COUNT 2.65 M/UL (4.20-5.40); RED CELL DISTRIBUTION WIDTH 22.8 % (11.6-14.8); WHITE BLOOD COUNT 11.2 K/UL (4.8-10.8)
[2018-11-01] MEDS: NovoLOG Insulin Flexpen SUBQ SCH ×4 (05:42→20:21)
[2018-11-01 05:58] LABS: ALANINE AMINOTRANSFERASE 63 U/L (12-78); ALBUMIN/GLOBULIN RATIO 0.5 (1.0-2.7); ALKALINE PHOSPHATASE 337 U/L (46-116); ANION GAP 9 mmol/L (5-15); ASPARTATE AMINO TRANSFERASE 101 U/L (15-37); BILIRUBIN,TOTAL 9.4 MG/DL (0.2-1.0); BLOOD UREA NITROGEN 18 mg/dL (7-18); CALCIUM 9.1 MG/DL (8.5-10.1); CARBON DIOXIDE 28 MMOL/L (21-32); CHLORIDE 106 MMOL/L (98-107); CREATININE 1.6 MG/DL (0.55-1.30); POTASSIUM 3.7 MMOL/L (3.5-5.1); SODIUM 143 MMOL/L (136-145)
[2018-11-01 06:23] LABS: BILIRUBIN,DIRECT 7.1 MG/DL (0.0-0.3)
--- NOTE | 2018-11-01 07:18 | NUR ---
HAND-OFF: Report given to Shashi Vergara RN.
--- NOTE | 2018-11-01 07:22 | NUR ---
NURSE NOTES: Received report from KARI Thomas. Patient is resting in bed, in stable condition. No s/sx of SOB, breathing is even and unlabored. Denies any presence of pain or discomfort at this time. Bed is in lowest position, brakes engaged. Call light is kept within easy reach. Will continue to monitor patient.
[2018-11-01 08:00] VITALS: BP 138/74
[2018-11-01] MEDS: Furosemide 40mg tab ORAL SCH (08:56)
[2018-11-01] MEDS: Spironolactone 50mg tab ORAL SCH (08:56)
[2018-11-01] MEDS: DiphenhydrAMINE 50mg/ml Inj IVP PRN ×2 (08:57→18:04)
--- NOTE | 2018-11-01 11:11 | GI Progress Note ---
Assessment/Plan Problems: (1) Shock liver ICD Codes: K72.00 - Acute and subacute hepatic failure without coma SNOMED: 147196009 (2) Liver cirrhosis ICD Codes: K74.60 - Unspecified cirrhosis of liver SNOMED: 72198790 (3) Septic shock ICD Codes: A41.9 - Sepsis, unspecified organism; R65.21 - Severe sepsis with septic shock SNOMED: 25901223 (4) Sepsis ICD Codes: A41.9 - Sepsis, unspecified organism SNOMED: 01166004 (5) Respiratory disorder with ventilator dependence ICD Codes: J98.9 - Respiratory disorder, unspecified; Z99.11 - Dependence on respirator [ventilator] status SNOMED: 66717137, 131271452 (6) Normocytic anemia ICD Codes: D64.9 - Anemia, unspecified SNOMED: 118643660 Status: not improved, unchanged Status Narrative Discussed with Dr. Reynolds Assessment/Plan unsuccessful paracentesis due to limited ascites JAD, SMA, AMA negative hepatitis panel negative Iron level was within normal limits, negative for hemochromatosis OB stool positive x2 Antitrypsin pending Ceruloplasmin pending AFP pending MELD score now 26 defer biopsy given patient has known history of cirrhosis as seen on recent CT and US. Patient will need referral/transfer to liver transplant center avoid hepatotoxic drugs Vit K x1 Trend LFTs, not improving ppi monitor H&H no acute work up for elevated CEA when more stable Lasix Aldactone 100 fu labs Xifaxan and lactulose albumin The patient was seen and examined at bedside and all new and available data was reviewed in the patients chart. I agree with the above findings, impression and plan. (Patient seen earlier today. Signature stamp does not reflect patient encounter time.). - Samuel Reynolds MD Subjective Subjective abdominal pain after p.o. intake Objective Last 24 Hour Vital Signs Date Time Temp Pulse Resp B/P (MAP) Pulse Ox O2 Delivery O2 Flow Rate FiO2 11/01/18 08:00 97.9 108 23 138/74 (95) 96 11/01/18 08:00 Nasal Cannula 2.0 11/01/18 07:25 Nasal Cannula 2.0 28 11/01/18 07:25 97 Nasal Cannula 2.0 28 11/01/18 04:00 98.0 105 22 130/73 (92) 96 11/01/18 04:00 Nasal Cannula 2.0 11/01/18 03:46 107 11/01/18 00:00 Nasal Cannula 2.0 11/01/18 00:00 98.2 107 20 124/69 (87) 95 10/31/18 23:29 105 10/31/18 20:55 Nasal Cannula 2.0 28 10/31/18 20:55 95 Nasal Cannula 2.0 28 10/31/18 20:00 98.3 105 20 106/68 (81) 95 10/31/18 20:00 Nasal Cannula 2.0 10/31/18 19:32 105 10/31/18 19:04 98.2 10/31/18 16:00 98.2 107 20 132/66 (88) 95 10/31/18 16:00 Nasal Cannula 2.0 10/31/18 15:32 106 10/31/18 12:00 Nasal Cannula 2.0 10/31/18 12:00 97.9 108 30 152/82 (105) 95 10/31/18 11:26 108 Intake and Output 10/31/18 11/01/18 18:59 06:59 Intake Total 1080.0 ml 377.5 ml Output Total 1025 ml 650 ml Balance 55.0 ml -272.5 ml Intake Oral 460 ml 240 ml IV Total 620.0 ml 137.5 ml Output Urine Total 1000 ml 575 ml Stool Total 25 ml 75 ml Laboratory Tests Test 11/01/18 03:45 White Blood Count 11.2 K/UL (4.8-10.8) H Red Blood Count 2.65 M/UL (4.20-5.40) L Hemoglobin 8.2 G/DL (12.0-16.0) L Hematocrit 25.6 % (37.0-47.0) L Mean Corpuscular Volume 97 FL (80-99) Mean Corpuscular Hemoglobin 31.0 PG (27.0-31.0) Mean Corpuscular Hemoglobin Concent 32.1 G/DL (32.0-36.0) Red Cell Distribution Width 22.8 % (11.6-14.8) H Platelet Count 61 K/UL (150-450) L Mean Platelet Volume 5.9 FL (6.5-10.1) L Neutrophils (%) (Auto) % (45.0-75.0) Lymphocytes (%) (Auto) % (20.0-45.0) Monocytes (%) (Auto) % (1.0-10.0) Eosinophils (%) (Auto) % (0.0-3.0) Basophils (%) (Auto) % (0.0-2.0) Sodium Level 143 MMOL/L (136-145) Potassium Level 3.7 MMOL/L (3.5-5.1) Chloride Level 106 MMOL/L (98-107) Carbon Dioxide Level 28 MMOL/L (21-32) Anion Gap 9 mmol/L (5-15) Blood Urea Nitrogen 18 mg/dL (7-18) Creatinine 1.6 MG/DL (0.55-1.30) H Estimat Glomerular Filtration Rate 33.1 mL/min (>60) Glucose Level 169 MG/DL (74-106) H Calcium Level 9.1 MG/DL (8.5-10.1) Total Bilirubin 9.4 MG/DL (0.2-1.0) H Direct Bilirubin 7.1 MG/DL (0.0-0.3) H Aspartate Amino Transf (AST/SGOT) 101 U/L (15-37) H Alanine Aminotransferase (ALT/SGPT) 63 U/L (12-78) Alkaline Phosphatase 337 U/L (46-116) H Ammonia 84 umol/L (11-32) H Total Protein 5.8 G/DL (6.4-8.2) L Albumin 2.0 G/DL (3.4-5.0) L Globulin 3.8 g/dL Albumin/Globulin Ratio 0.5 (1.0-2.7) L Height (Feet): 5 Height (Inches): 1.00 Weight (Pounds): 235 General Appearance: WD/WN, no apparent distress, alert Cardiovascular: normal rate Respiratory/Chest: normal breath sounds, no respiratory distress Abdominal Exam: normal bowel sounds, non tender, soft Extremities: normal range of motion, non-tender Cole Serna NP Nov 01, 2018 11:11
[2018-11-01 12:00] VITALS: BP 141/61
--- NOTE | 2018-11-01 12:49 | Infectious Diseases Prog Note ---
Assessment/Plan Assessment/Plan A: 1. Septic Shock resolved.culture are negative so far 2. aspiration pneumonia. 3. acute renal failure , resolved 4. Diabetes mellitus. 5. Obesity. 6. Lactic acidosis. 7. Anemia.s/p transfusion 8. Cirrhosis with ascites 9. Enteritis, ileus resolved 10. Leukocytosis resolved 11. GI bleeding 12. UTI RECOMMENDATION: Change Zosyn to Cipro Waiting for transfer to higher level of care for liver transplant Subjective ROS Limited/Unobtainable: Yes Allergies: Coded Allergies: No Known Allergies (Unverified , 05/06/18) Objective Vital Signs Last 24 Hour Vital Signs Date Time Temp Pulse Resp B/P (MAP) Pulse Ox O2 Delivery O2 Flow Rate FiO2 11/01/18 08:00 97.9 108 23 138/74 (95) 96 11/01/18 08:00 Nasal Cannula 2.0 11/01/18 07:25 Nasal Cannula 2.0 28 11/01/18 07:25 97 Nasal Cannula 2.0 28 11/01/18 04:00 98.0 105 22 130/73 (92) 96 11/01/18 04:00 Nasal Cannula 2.0 11/01/18 03:46 107 11/01/18 00:00 Nasal Cannula 2.0 11/01/18 00:00 98.2 107 20 124/69 (87) 95 10/31/18 23:29 105 10/31/18 20:55 Nasal Cannula 2.0 28 10/31/18 20:55 95 Nasal Cannula 2.0 28 10/31/18 20:00 98.3 105 20 106/68 (81) 95 10/31/18 20:00 Nasal Cannula 2.0 10/31/18 19:32 105 10/31/18 19:04 98.2 10/31/18 16:00 98.2 107 20 132/66 (88) 95 10/31/18 16:00 Nasal Cannula 2.0 10/31/18 15:32 106 Height (Feet): 5 Height (Inches): 1.00 Weight (Pounds): 235 HEENT: mucous membranes moist, other - icterus sclera Respiratory/Chest: lungs clear Cardiovascular: tachycardia, other Abdomen: soft, non tender Extremities: other - anasarca Neurologic/Psychiatric: alert, responsive Microbiology Date/Time Source Procedure Growth Status 10/29/18 16:50 Indwelling Cath Urine Culture - Final Escherichia Coli Complete Laboratory Tests Test 11/01/18 03:45 White Blood Count 11.2 K/UL (4.8-10.8) H Red Blood Count 2.65 M/UL (4.20-5.40) L Hemoglobin 8.2 G/DL (12.0-16.0) L Hematocrit 25.6 % (37.0-47.0) L Mean Corpuscular Volume 97 FL (80-99) Mean Corpuscular Hemoglobin 31.0 PG (27.0-31.0) Mean Corpuscular Hemoglobin Concent 32.1 G/DL (32.0-36.0) Red Cell Distribution Width 22.8 % (11.6-14.8) H Platelet Count 61 K/UL (150-450) L Mean Platelet Volume 5.9 FL (6.5-10.1) L Neutrophils (%) (Auto) % (45.0-75.0) Lymphocytes (%) (Auto) % (20.0-45.0) Monocytes (%) (Auto) % (1.0-10.0) Eosinophils (%) (Auto) % (0.0-3.0) Basophils (%) (Auto) % (0.0-2.0) Sodium Level 143 MMOL/L (136-145) Potassium Level 3.7 MMOL/L (3.5-5.1) Chloride Level 106 MMOL/L (98-107) Carbon Dioxide Level 28 MMOL/L (21-32) Anion Gap 9 mmol/L (5-15) Blood Urea Nitrogen 18 mg/dL (7-18) Creatinine 1.6 MG/DL (0.55-1.30) H Estimat Glomerular Filtration Rate 33.1 mL/min (>60) Glucose Level 169 MG/DL (74-106) H Calcium Level 9.1 MG/DL (8.5-10.1) Total Bilirubin 9.4 MG/DL (0.2-1.0) H Direct Bilirubin 7.1 MG/DL (0.0-0.3) H Aspartate Amino Transf (AST/SGOT) 101 U/L (15-37) H Alanine Aminotransferase (ALT/SGPT) 63 U/L (12-78) Alkaline Phosphatase 337 U/L (46-116) H Ammonia 84 umol/L (11-32) H Total Protein 5.8 G/DL (6.4-8.2) L Albumin 2.0 G/DL (3.4-5.0) L Globulin 3.8 g/dL Albumin/Globulin Ratio 0.5 (1.0-2.7) L Current Medications Medications (Trade) Dose Ordered Sig/Patricia Route PRN Reason Start Time Stop Time Status Last Admin Dose Admin Albuterol/ Ipratropium (Albuterol/ Ipratropium) 3 ml Q6H PRN HHN shortness of breath 10/29/18 17:30 11/03/18 17:29 Chlorhexidine Gluconate (Nguyen-Hex 2%) 1 applic DAILY@2000 TOPIC 10/17/18 20:00 11/09/18 19:59 10/31/18 20:34 Dextrose (Dextrose 50%) 25 ml Q30M PRN IV Hypoglycemia 10/17/18 14:45 11/10/18 13:44 Dextrose (Dextrose 50%) 50 ml Q30M PRN IV Hypoglycemia 10/17/18 14:45 11/10/18 13:44 Digoxin (Lanoxin) 0.125 mg QOD NG 10/19/18 09:00 11/15/18 08:59 10/31/18 09:08 Diphenhydramine HCl (Benadryl) 25 mg Q6H PRN IVP Itching 10/17/18 14:30 11/08/18 14:29 11/01/18 08:57 Furosemide (Lasix) 40 mg DAILY ORAL 10/29/18 09:00 11/28/18 08:59 11/01/18 08:56 Insulin Aspart (NovoLOG) BEFORE MEALS AND HS SUBQ 10/17/18 16:30 11/10/18 16:29 11/01/18 12:25 Lactulose (Cephulac) 30 gm EVERY 8 HOURS ORAL 10/31/18 14:00 11/12/18 17:59 11/01/18 05:41 Midazolam HCl (Versed 2mg/2ml vial) 1 mg Q2H PRN IVP For Anxiety 10/17/18 14:30 11/11/18 14:29 Morphine Sulfate (Morphine Sulfate) 2 mg Q4H PRN IVP For Pain 10/31/18 18:15 11/07/18 18:14 10/31/18 18:34 Pantoprazole (Protonix) 40 mg EVERY 12 HOURS ORAL 10/28/18 21:00 11/27/18 20:59 11/01/18 08:56 Phytonadione 1 mg/ Dextrose 55.5 ml @ 222 mls/hr ONCE ONCE IVPB 11/01/18 13:00 11/01/18 13:14 Piperacillin Sod/ Tazobactam Sod 3.375 gm/Dextrose 110 ml @ 27.5 mls/hr EVERY 8 HOURS IVPB 10/30/18 12:00 11/04/18 11:59 11/01/18 05:41 Rifaximin (Xifaxan) 550 mg EVERY 12 HOURS ORAL 10/27/18 09:00 11/10/18 08:59 11/01/18 08:57 Spironolactone (Aldactone) 100 mg DAILY ORAL 10/27/18 09:00 11/22/18 09:44 11/01/18 08:56 Wesley Akers MD Nov 01, 2018 12:49
--- NOTE | 2018-11-01 12:59 | Pulmonology Progress Note ---
Assessment/Plan Assessment/Plan ASSESSMENT: The patient is a 58-year-old female with a history of obesity, diabetes, hypertension, hyperlipidemia, and sciatica with chronic low back pain , DDD/DJD, presenting after a mechanical fall with altered mental status and confusion with likely sepsis and multisystem organ failure. PROBLEM LIST: 1. VDRF, EXTUBATED 10/16/18 2. Sepsis 3. Shock, hypovolemic and distributive. 4. Multisystem organ failure. 5. Lactic acidosis. 6. Anion gap metabolic acidosis. 7. JONNATHAN - BETTER 7. Abnormal LFTs, likely shock liver. 8. Abnormal troponin, likely demand ischemia. 9. Elevated D-dimer and PASP concerning for an acute PE 10. Obesity. 11. Diabetes. 12. Hypertension. 13. Chronic low back pain and sciatica. 14. Anemia/FOBT + 15. Thrombocytopenia 16. AFcRVR now in NSR 17. HyperNa 18. Herpes labialis TREATMENT PLAN: 1. Optimize pulmonary hygiene/mobilize as tolerated 2. Titrate down FiO2 to keep SaO2 < 90% 3. Abx per ID (now on PO Cipro) 5. PO Lasix and Aldactone 6. SSI, monitor BS 7. Follow up cards recs 8. GI and surgery recs, ---> [facility] 9. DVT prophylaxis: SCD 10. FC, discuss GOC, consider palliative care eval Subjective Allergies: Coded Allergies: No Known Allergies (Unverified , 05/06/18) Subjective AFVSS O2 needs stable no cough no SOB no FC Plan to transfer to liver tx center Objective Last 24 Hour Vital Signs Date Time Temp Pulse Resp B/P (MAP) Pulse Ox O2 Delivery O2 Flow Rate FiO2 11/01/18 08:00 97.9 108 23 138/74 (95) 96 11/01/18 08:00 Nasal Cannula 2.0 11/01/18 07:25 Nasal Cannula 2.0 28 11/01/18 07:25 97 Nasal Cannula 2.0 28 11/01/18 04:00 98.0 105 22 130/73 (92) 96 11/01/18 04:00 Nasal Cannula 2.0 11/01/18 03:46 107 11/01/18 00:00 Nasal Cannula 2.0 11/01/18 00:00 98.2 107 20 124/69 (87) 95 10/31/18 23:29 105 3/20/19 20:55 Nasal Cannula 2.0 28 10/31/18 20:55 95 Nasal Cannula 2.0 28 10/31/18 20:00 98.3 105 20 106/68 (81) 95 10/31/18 20:00 Nasal Cannula 2.0 10/31/18 19:32 105 10/31/18 19:04 98.2 10/31/18 16:00 98.2 107 20 132/66 (88) 95 10/31/18 16:00 Nasal Cannula 2.0 10/31/18 15:32 106 Intake and Output 10/31/18 11/01/18 18:59 06:59 Intake Total 1080.0 ml 377.5 ml Output Total 1025 ml 650 ml Balance 55.0 ml -272.5 ml Intake Oral 460 ml 240 ml IV Total 620.0 ml 137.5 ml Output Urine Total 1000 ml 575 ml Stool Total 25 ml 75 ml General Appearance: no acute distress, other - icteric sclera HEENT: normocephalic, atraumatic, mucous membranes moist, other - icteric sclera Respiratory/Chest: chest wall non-tender, lungs clear, normal breath sounds, no respiratory distress Cardiovascular: normal peripheral pulses, normal rate, regular rhythm Abdomen: normal bowel sounds, soft, non tender, no organomegaly, non distended , no mass Extremities: no cyanosis, no clubbing, other - 2+ edema Microbiology Date/Time Source Procedure Growth Status 10/29/18 16:50 Indwelling Cath Urine Culture - Final Escherichia Coli Complete Laboratory Tests 11/01/18 03:45: White Blood Count 11.2H, Red Blood Count 2.65L, Hemoglobin 8.2L, Hematocrit 25.6L, Mean Corpuscular Volume 97, Mean Corpuscular Hemoglobin 31.0, Mean Corpuscular Hemoglobin Concent 32.1, Red Cell Distribution Width 22.8H, Platelet Count 61L, Mean Platelet Volume 5.9L, Neutrophils (%) (Auto) , Lymphocytes (%) (Auto) , Monocytes (%) (Auto) , Eosinophils (%) (Auto) , Basophils (%) (Auto) , Sodium Level 143, Potassium Level 3.7, Chloride Level 106 , Carbon Dioxide Level 28, Anion Gap 9, Blood Urea Nitrogen 18, Creatinine 1.6H , Estimat Glomerular Filtration Rate 33.1, Glucose Level 169H, Calcium Level 9.1 , Total Bilirubin 9.4H, Direct Bilirubin 7.1H, Aspartate Amino Transf (AST/SGOT ) 101H, Alanine Aminotransferase (ALT/SGPT) 63, Alkaline Phosphatase 337H, Ammonia 84H, Total Protein 5.8L, Albumin 2.0L, Globulin 3.8, Albumin/Globulin Ratio 0.5L Current Medications Medications (Trade) Dose Ordered Sig/Patricia Route PRN Reason Start Time Stop Time Status Last Admin Dose Admin Albuterol/ Ipratropium (Albuterol/ Ipratropium) 3 ml Q6H PRN HHN shortness of breath 10/29/18 17:30 11/03/18 17:29 Chlorhexidine Gluconate (Nguyen-Hex 2%) 1 applic DAILY@1999 TOPIC 10/17/18 20:00 11/09/18 19:59 10/31/18 20:34 Ciprofloxacin (Cipro 250mg tab) 250 mg EVERY 12 HOURS ORAL 11/01/18 21:00 11/08/18 20:59 Dextrose (Dextrose 50%) 25 ml Q30M PRN IV Hypoglycemia 10/17/18 14:45 11/10/18 13:44 Dextrose (Dextrose 50%) 50 ml Q30M PRN IV Hypoglycemia 10/17/18 14:45 11/10/18 13:44 Digoxin (Lanoxin) 0.125 mg QOD NG 10/19/18 09:00 11/15/18 08:59 10/31/18 09:08 Diphenhydramine HCl (Benadryl) 25 mg Q6H PRN IVP Itching 10/17/18 14:30 11/08/18 14:29 11/01/18 08:57 Furosemide (Lasix) 40 mg DAILY ORAL 10/29/18 09:00 11/28/18 08:59 11/01/18 08:56 Insulin Aspart (NovoLOG) BEFORE MEALS AND HS SUBQ 10/17/18 16:30 11/10/18 16:29 11/01/18 12:25 Lactulose (Cephulac) 30 gm EVERY 8 HOURS ORAL 10/31/18 14:00 11/12/18 17:59 11/01/18 05:41 Midazolam HCl (Versed 2mg/2ml vial) 1 mg Q2H PRN IVP For Anxiety 10/17/18 14:30 11/11/18 14:29 Morphine Sulfate (Morphine Sulfate) 2 mg Q4H PRN IVP For Pain 10/31/18 18:15 11/07/18 18:14 10/31/18 18:34 Pantoprazole (Protonix) 40 mg EVERY 12 HOURS ORAL 10/28/18 21:00 11/27/18 20:59 11/01/18 08:56 Phytonadione 1 mg/ Dextrose 55.5 ml @ 222 mls/hr ONCE ONCE IVPB 11/01/18 13:00 11/01/18 13:14 Rifaximin (Xifaxan) 550 mg EVERY 12 HOURS ORAL 10/27/18 09:00 11/10/18 08:59 11/01/18 08:57 Spironolactone (Aldactone) 100 mg DAILY ORAL 10/27/18 09:00 11/22/18 09:44 11/01/18 08:56 Renato Delarosa MD Nov 01, 2018 12:59
[2018-11-01] MEDS ORDERED: Phytonadione 1 MG in D5W 55 ML IVPB ONE (13:00)
--- NOTE | 2018-11-01 13:33 | NUR ---
P.T Note: late entry 1002 P.T evaluation completed and treatment initiated. Please refer to P.T evaluation for current functional status. Pt is alert, Oriented to self, place, person and situation but not to time. Pt is cooperative and motivated, present and highly involved. Pt presents generalized edema , appeared significantly weak and deconditioned however major c/o pain. Pt. able to engage with functional mobilities however require MAX A X 1-2P to roll, scoot and to come up from supine to/from sitting position. Pt able to sit at the EOB for 10 min with BUE support. Pt is too weak to stand and transfer at this time. Skilled P.T service is warranted to increase her strength and activity tolerance to improve independence in functional mobilities and safety for return to PLOF. Recommend SNF for further rehab VS home P.T at [place] depending on progress. Thank you for this referral.
--- NOTE | 2018-11-01 13:59 | Surgery Progress Note ---
Surgery Progress Note Subjective Additional Comments states she feels well. lfts still elevated. abd exam unchanged. tolerating diet. Objective Last 24 Hour Vital Signs Date Time Temp Pulse Resp B/P (MAP) Pulse Ox O2 Delivery O2 Flow Rate FiO2 11/01/18 08:00 97.9 108 23 138/74 (95) 96 11/01/18 08:00 Nasal Cannula 2.0 11/01/18 07:25 Nasal Cannula 2.0 28 11/01/18 07:25 97 Nasal Cannula 2.0 28 11/01/18 04:00 98.0 105 22 130/73 (92) 96 11/01/18 04:00 Nasal Cannula 2.0 11/01/18 03:46 107 11/01/18 00:00 Nasal Cannula 2.0 11/01/18 00:00 98.2 107 20 124/69 (87) 95 10/31/18 23:29 105 10/31/18 20:55 Nasal Cannula 2.0 28 10/31/18 20:55 95 Nasal Cannula 2.0 28 10/31/18 20:00 98.3 105 20 106/68 (81) 95 10/31/18 20:00 Nasal Cannula 2.0 10/31/18 19:32 105 10/31/18 19:04 98.2 10/31/18 16:00 98.2 107 20 132/66 (88) 95 10/31/18 16:00 Nasal Cannula 2.0 10/31/18 15:32 106 I&O Intake and Output 10/31/18 11/01/18 18:59 06:59 Intake Total 1080.0 ml 377.5 ml Output Total 1025 ml 650 ml Balance 55.0 ml -272.5 ml Intake Oral 460 ml 240 ml IV Total 620.0 ml 137.5 ml Output Urine Total 1000 ml 575 ml Stool Total 25 ml 75 ml Cardiovascular: RSR Respiratory: clear Abdomen: soft, non-tender, present bowel sounds, non-distended Extremities: no tenderness, no cyanosis Laboratory Tests Test 11/01/18 03:45 White Blood Count 11.2 K/UL (4.8-10.8) H Red Blood Count 2.65 M/UL (4.20-5.40) L Hemoglobin 8.2 G/DL (12.0-16.0) L Hematocrit 25.6 % (37.0-47.0) L Mean Corpuscular Volume 97 FL (80-99) Mean Corpuscular Hemoglobin 31.0 PG (27.0-31.0) Mean Corpuscular Hemoglobin Concent 32.1 G/DL (32.0-36.0) Red Cell Distribution Width 22.8 % (11.6-14.8) H Platelet Count 61 K/UL (150-450) L Mean Platelet Volume 5.9 FL (6.5-10.1) L Neutrophils (%) (Auto) % (45.0-75.0) Lymphocytes (%) (Auto) % (20.0-45.0) Monocytes (%) (Auto) % (1.0-10.0) Eosinophils (%) (Auto) % (0.0-3.0) Basophils (%) (Auto) % (0.0-2.0) Sodium Level 143 MMOL/L (136-145) Potassium Level 3.7 MMOL/L (3.5-5.1) Chloride Level 106 MMOL/L (98-107) Carbon Dioxide Level 28 MMOL/L (21-32) Anion Gap 9 mmol/L (5-15) Blood Urea Nitrogen 18 mg/dL (7-18) Creatinine 1.6 MG/DL (0.55-1.30) H Estimat Glomerular Filtration Rate 33.1 mL/min (>60) Glucose Level 169 MG/DL (74-106) H Calcium Level 9.1 MG/DL (8.5-10.1) Total Bilirubin 9.4 MG/DL (0.2-1.0) H Direct Bilirubin 7.1 MG/DL (0.0-0.3) H Aspartate Amino Transf (AST/SGOT) 101 U/L (15-37) H Alanine Aminotransferase (ALT/SGPT) 63 U/L (12-78) Alkaline Phosphatase 337 U/L (46-116) H Ammonia 84 umol/L (11-32) H Total Protein 5.8 G/DL (6.4-8.2) L Albumin 2.0 G/DL (3.4-5.0) L Globulin 3.8 g/dL Albumin/Globulin Ratio 0.5 (1.0-2.7) L Plan Problems: (1) Multiple injuries due to trauma (2) Sepsis Assessment & Plan: Labs noted lactic acidosis improved with resuscitation CT findings: Limited assessment of the GI tract, due to lack of enteric contrast administration. Exam is also limited due to patient motion artifact and lack of IV contrast administration Evidence of hepatic cirrhosis Small amount of ascites, likely related to the above Surgically absent gallbladder Bilateral basilar pulmonary parenchymal atelectatic changes and possible patchy consolidation Minimal edema of the bilateral flank subcutaneous fat Other findings as noted, including degenerative spondylosis, right hepatic lobe capsular calcification, Quiroz catheter has made a great improvement. denies abd pain. labs improved. decompensated liver cirrhosis LFT's abnormal leukocytosis overall improved but prognosis still guarded Limited assessment of the GI tract, due to lack of enteric contrast administration Abdominal ascites, increased in extent since prior study Increased edema of the subcutaneous fat, since previous study Hepatic surface nodularity, consistent with cirrhosis, also previously reported Borderline splenomegaly Bilateral basilar pulmonary patchy consolidation and atelectasis as well as some congestion. Findings as noted, including degenerative spondylosis, PICC, Quiroz catheter, rectal tube, nasogastric tube CT chest noted ng tube removed Continue with p.o. diet. goals of care for patient; liver center? comfort? snf? pending decision -trend labs will follow with recs thank you (3) Liver cirrhosis Josh Samuel Nov 01, 2018 13:59
--- NOTE | 2018-11-01 14:34 | NUR ---
RD ASSESSMENT & RECOMMENDATIONS SEE CARE ACTIVITY FOR COMPLETE ASSESSMENT DAILY ESTIMATED NEEDS: Needs based on Sepsis, obesity, DM 24-28, 64kg adj kcals/kg [id number] total kcals 1.2-2, 64kg adj g protein/kg 77-128 g total protein Fluid per MD mL/kg total fluid mLs NUTRITION DIAGNOSIS: 1) Swallowing difficulty r/t respiratory status as evidenced by pt is now extubated, off pressors, pt now on puree texture diet w/ NTL. 2) Altered nutrition related lab values r/t critcal care. septic shock and multi organ failure as evidenced by critically elev WBC-> now wnl, elev creat kinase (3542), elev LFT's, elev T bili (9.4) elev phos (5.2 -> wnl), elev Creat-> now wnl, elev ammonia (84), elev BNP (6076->658-> 299), elev A1C (11.0), elev bgs (169 182) CURRENT DIET:Low Fat/ Low Chol/ CCHO LOW (pureed, NTL) PO DIET RECOMMENDATIONS: CCHO LOW, CARDIAC/ texture per COUNTERINTELLIGENCE ANALYST ADDITIONAL RECOMMENDATIONS: * CALIBRATED BED SCALE WTS * MONITOR PO INTAKE -> variable at this time -> Add Glucerna TID w/ meals . * Monitor lytes daily, on lactulose and lasix * Monitor for con't tolerance to diet - pt now c/o abd pain w/ oral intake -> Add Glucerna TID w/ meals (rec Nepro w/ elev K)
--- NOTE | 2018-11-01 15:20 | General Progress Note ---
Assessment/Plan Assessment/Plan # Leukocytosis/Elevated white blood cell count, unspecified likely related to underlying stress reaction, or underlying infection --> have reviewed peripheral smear and bandemia/neutrophilia noted --> continue antibiotics if they have been started by ID team (currently theu have been stopped) --> monitor for resolution -->WBC trend: 14-->10-->15-->12-->11-->10-->8.6-->8.1-->10 # Thrombocytopenia - potential causes multifactorial but most likely contributor is cirrhosis, that is chronic, elevated bili with ascites --> Hep panel and HIV negative --> CT a/p show cirrhosis as well as us --> Peripheral smear ordered to evaluate for blasts /schistocytes is negative --> abx and other meds have been reviewed --> ok for ppx if plt >50k w/ either heparin or lovenox --> Transfuse if Plt < 20k and fever, or if Plt < 10k without fever --> HIT negative, hold off heparin --> Plt trend : 54-->92-->106-->113-->62-->61-->61k --> awaiting transfer to higher level of care for transplant of the liver # Anemia of iron deficiency as noted with low % sat and tibc elevated --> Anemia workup has been reviewed --> No evidence of hemolysis is noted, peripheral smear has been reviewed. --> Hgb goal >7. Transfuse prn. --> Iron IV X 5 days already given --> Medications have been reviewed # CEA of 10.5 --> Ct of abdomen/pelvis reviewed and is negative --> as per gi recs # Sepsis likely contributing to low plts --> on abx as needed # Shock, hypovolemic and distributive --> per id and pulm/cc care # Multisystem organ failure. # Lactic acidosis. # JONNATHAN. # Abnormal LFTs, likely shock liver. # Abnormal troponin, likely demand ischemia. # Obesity. # Respiratory failure on vent --> now extubated # Afib on meds as per cards The timing of this note does not necessarily reflect the time of the patient was seen. Greatly appreciate consultation! Subjective Constitutional: Denies: no symptoms, chills, diaphoresis, fever, malaise, weakness, other HEENT: Denies: no symptoms, eye pain, blurred vision, tearing, double vision, ear pain, ear discharge, nose pain, nose congestion, throat pain, throat swelling, mouth pain, mouth swelling, other Cardiovascular: Denies: no symptoms, chest pain, edema, irregular heart rate, lightheadedness, palpitations, syncope, other Respiratory: Denies: no symptoms, cough, orthopnea, shortness of breath, SOB with excertion, SOB at rest, sputum, stridor, wheezing, other Gastrointestinal/Abdominal: Denies: no symptoms, abdomen distended, abdominal pain, black stools, tarry stools, blood in stool, constipated, diarrhea, difficulty swallowing, nausea, poor appetite, poor fluid intake, rectal bleeding , vomiting, other Genitourinary: Denies: no symptoms, burning, discharge, frequency, flank pain, hematuria, incontinence, pain, urgency, other Hematologic/Lymphatic: Denies: no symptoms, anemia, easy bleeding, easy bruising, other Allergies: Coded Allergies: No Known Allergies (Unverified , 05/06/18) Subjective 3: Pt was seen in ICU on Vent and off pressors, developed atrial fib, wbc trending down to 13, plt trending down to 60 3: remains in the icu, monitoring labs, plts stabilizing, remains critically ill, cea elev 3: In ICU on Vent and off pressors, plt 62, no events 10/16 wbc trending up at 14,plt low at 48,weaning well from vent. no acute events , family at bedside 10/17: plts remain low, no events, weaned off vent, no complaints, off pressors 10/18: seen by bedside, wbc trending up at 15, plt low at 50, no events, needs video swallow. NGT 10/19: wbc remains elevated, plt 54, no acute distress reported 10/21: seen by bedside, still with lots of NG tube output, wbc 12, plt trending up 10/22: awake, alert,has high NG tube residual, wbc 11, no events 3: comfortable, wbc trending down, plt trending up , no events 10/24: Seen by bedside, leukocytosis resolved, no events 10/25: awake, comfortable, Surgery removed NGT, no events 3.15: NG tube was removed yesterday and patient started on diet, comfortable, no events, plt trending up 10/28: seen by bedside, lethargic, no events 10/29: remains extubated, cbc reviewed, bili remains elevated, lethargic, on abx 10/30: awake, tolerating some diet, no events, plt trending down 10/31: No overnight events reported, awake and comfortable. 11/01: awaiting transfer to higher level of care for transplant, no other events Objective Last 24 Hour Vital Signs Date Time Temp Pulse Resp B/P (MAP) Pulse Ox O2 Delivery O2 Flow Rate FiO2 11/01/18 12:00 98.0 111 22 141/61 (87) 96 11/01/18 12:00 Nasal Cannula 2.0 11/01/18 12:00 108 11/01/18 08:00 97.9 108 23 138/74 (95) 96 11/01/18 08:00 107 11/01/18 08:00 Nasal Cannula 2.0 11/01/18 07:25 Nasal Cannula 2.0 28 11/01/18 07:25 97 Nasal Cannula 2.0 28 11/01/18 04:00 98.0 105 22 130/73 (92) 96 11/01/18 04:00 Nasal Cannula 2.0 11/01/18 03:46 107 11/01/18 00:00 Nasal Cannula 2.0 11/01/18 00:00 98.2 107 20 124/69 (87) 95 10/31/18 23:29 105 10/31/18 20:55 Nasal Cannula 2.0 28 10/31/18 20:55 95 Nasal Cannula 2.0 28 10/31/18 20:00 98.3 105 20 106/68 (81) 95 10/31/18 20:00 Nasal Cannula 2.0 10/31/18 19:32 105 10/31/18 19:04 98.2 10/31/18 16:00 98.2 107 20 132/66 (88) 95 10/31/18 16:00 Nasal Cannula 2.0 10/31/18 15:32 106 Intake and Output 10/31/18 11/01/18 18:59 06:59 Intake Total 1080.0 ml 377.5 ml Output Total 1025 ml 650 ml Balance 55.0 ml -272.5 ml Intake Oral 460 ml 240 ml IV Total 620.0 ml 137.5 ml Output Urine Total 1000 ml 575 ml Stool Total 25 ml 75 ml Laboratory Tests 11/01/18 03:45: White Blood Count 11.2H, Red Blood Count 2.65L, Hemoglobin 8.2L, Hematocrit 25.6L, Mean Corpuscular Volume 97, Mean Corpuscular Hemoglobin 31.0, Mean Corpuscular Hemoglobin Concent 32.1, Red Cell Distribution Width 22.8H, Platelet Count 61L, Mean Platelet Volume 5.9L, Neutrophils (%) (Auto) , Lymphocytes (%) (Auto) , Monocytes (%) (Auto) , Eosinophils (%) (Auto) , Basophils (%) (Auto) , Sodium Level 143, Potassium Level 3.7, Chloride Level 106 , Carbon Dioxide Level 28, Anion Gap 9, Blood Urea Nitrogen 18, Creatinine 1.6H , Estimat Glomerular Filtration Rate 33.1, Glucose Level 169H, Calcium Level 9.1 , Total Bilirubin 9.4H, Direct Bilirubin 7.1H, Aspartate Amino Transf (AST/SGOT ) 101H, Alanine Aminotransferase (ALT/SGPT) 63, Alkaline Phosphatase 337H, Ammonia 84H, Total Protein 5.8L, Albumin 2.0L, Globulin 3.8, Albumin/Globulin Ratio 0.5L Height (Feet): 5 Height (Inches): 1.00 Weight (Pounds): 235 Objective PHYSICAL EXAMINATION: VITAL SIGNS: reviewed, saturating 98% on NC++, GENERAL: She is an obese female, confused. HEENT: Normocephalic and atraumatic. Oropharynx is clear with dry mucous membranes., NECK: Supple without lymphadenopathy or JVP. CHEST: Clear. HEART: Regular. ABDOMEN: Benign. EXTREMITIES: No cyanosis, clubbing, or edema. There are some ecchymoses Kurtis Villagomez MD Nov 01, 2018 15:20
--- NOTE | 2018-11-01 15:25 | NUR ---
ST NOTE: ST WEEKLY PT PARTIALLY MET PO INTAKE GOALS. NURSING STAFF MET [employer]IR[employer] PRECAUTIONS GOALS. CONTINUE SKILLED ST SERVICE. D/W PT, PT'S AND THE STAFF
--- NOTE | 2018-11-01 15:56 | Nephrology Progress Note ---
Assessment/Plan Problem List: (1) JONNATHAN (acute kidney injury) Assessment: resolving (2) Shock liver (3) Septic shock (4) Respiratory disorder with ventilator dependence Assessment - Acute Oliguric Renal Failure Cr down to 1.1 - Respiratory disorder with s/p mechanical ventilator - Septic shock , Leukocytosis resolved - Pneumonia - Liver cirrhosis - Obese - Anemia . Plan PO K as needed mag IV as needed transfused 2 units previously down on IV fluid K and Phos as needed Hemodynamic support Pulmonary support Monitor renal parameters avoid nephrotoxics as best as possible per orders discussed with RN Subjective ROS Limited/Unobtainable: No Constitutional: Reports: malaise Objective Objective Last 24 Hour Vital Signs Date Time Temp Pulse Resp B/P (MAP) Pulse Ox O2 Delivery O2 Flow Rate FiO2 11/01/18 12:00 98.0 111 22 141/61 (87) 96 11/01/18 12:00 Nasal Cannula 2.0 11/01/18 12:00 108 11/01/18 08:00 97.9 108 23 138/74 (95) 96 11/01/18 08:00 107 11/01/18 08:00 Nasal Cannula 2.0 11/01/18 07:25 Nasal Cannula 2.0 28 11/01/18 07:25 97 Nasal Cannula 2.0 28 11/01/18 04:00 98.0 105 22 130/73 (92) 96 11/01/18 04:00 Nasal Cannula 2.0 11/01/18 03:46 107 11/01/18 00:00 Nasal Cannula 2.0 11/01/18 00:00 98.2 107 20 124/69 (87) 95 10/31/18 23:29 105 10/31/18 20:55 Nasal Cannula 2.0 28 10/31/18 20:55 95 Nasal Cannula 2.0 28 10/31/18 20:00 98.3 105 20 106/68 (81) 95 10/31/18 20:00 Nasal Cannula 2.0 10/31/18 19:32 105 10/31/18 19:04 98.2 10/31/18 16:00 98.2 107 20 132/66 (88) 95 10/31/18 16:00 Nasal Cannula 2.0 Intake and Output 10/31/18 11/01/18 18:59 06:59 Intake Total 1080.0 ml 377.5 ml Output Total 1025 ml 650 ml Balance 55.0 ml -272.5 ml Intake Oral 460 ml 240 ml IV Total 620.0 ml 137.5 ml Output Urine Total 1000 ml 575 ml Stool Total 25 ml 75 ml Laboratory Tests 11/01/18 03:45: White Blood Count 11.2H, Red Blood Count 2.65L, Hemoglobin 8.2L, Hematocrit 25.6L, Mean Corpuscular Volume 97, Mean Corpuscular Hemoglobin 31.0, Mean Corpuscular Hemoglobin Concent 32.1, Red Cell Distribution Width 22.8H, Platelet Count 61L, Mean Platelet Volume 5.9L, Neutrophils (%) (Auto) , Lymphocytes (%) (Auto) , Monocytes (%) (Auto) , Eosinophils (%) (Auto) , Basophils (%) (Auto) , Sodium Level 143, Potassium Level 3.7, Chloride Level 106 , Carbon Dioxide Level 28, Anion Gap 9, Blood Urea Nitrogen 18, Creatinine 1.6H , Estimat Glomerular Filtration Rate 33.1, Glucose Level 169H, Calcium Level 9.1 , Total Bilirubin 9.4H, Direct Bilirubin 7.1H, Aspartate Amino Transf (AST/SGOT ) 101H, Alanine Aminotransferase (ALT/SGPT) 63, Alkaline Phosphatase 337H, Ammonia 84H, Total Protein 5.8L, Albumin 2.0L, Globulin 3.8, Albumin/Globulin Ratio 0.5L Height (Feet): 5 Height (Inches): 1.00 Weight (Pounds): 235 General Appearance: no apparent distress Cardiovascular: tachycardia Respiratory/Chest: decreased breath sounds Abdomen: distended Objective NO CHANGE Alex Cueto MD Nov 01, 2018 15:56
[2018-11-01 16:00] VITALS: BP 150/74
--- NOTE | 2018-11-01 16:52 | Cardiac Electrophysiology PN ---
Assessment/Plan Assessment/Plan 1. Atrial fib with RVR. Off Beta janet or CA janet for hypotension. On Dig 0.125 qod. In SR Off Amiodarone for high LFTs and Bilirubin 7.3 2. S/P Septic shock. On broad spectrum IV antibiotic. 3. Troponin leak. The levels are flat and likely due to this patient's sepsis and septic shock. Her echocardiogram showed ejection fraction 60% to 65% and EKG showed no acute ischemic changes. 4. Nonsustained VT. EF 65% 5. Diabetes. 6. Renal failure. 7. Morbid obesity. 8. Dysphagia, NG removed. Feeding started 9. S/P Respiratory failure, Extubated 10. Cirrhosis, high Bilirubin and ascites. On Lasix 40 po daily and Aldactone [address] Reynolds, awaiting tranfer for possible liver transplant ANABELL RN Subjective Subjective Off restraints. No events. at bedside. awaiting transfer to a liver transplant Ctr Objective Last 24 Hour Vital Signs Date Time Temp Pulse Resp B/P (MAP) Pulse Ox O2 Delivery O2 Flow Rate FiO2 11/01/18 12:00 98.0 111 22 141/61 (87) 96 11/01/18 12:00 Nasal Cannula 2.0 11/01/18 12:00 108 11/01/18 08:00 97.9 108 23 138/74 (95) 96 11/01/18 08:00 107 11/01/18 08:00 Nasal Cannula 2.0 11/01/18 07:25 Nasal Cannula 2.0 28 11/01/18 07:25 97 Nasal Cannula 2.0 28 11/01/18 04:00 98.0 105 22 130/73 (92) 96 11/01/18 04:00 Nasal Cannula 2.0 11/01/18 03:46 107 11/01/18 00:00 Nasal Cannula 2.0 11/01/18 00:00 98.2 107 20 124/69 (87) 95 10/31/18 23:29 105 10/31/18 20:55 Nasal Cannula 2.0 28 10/31/18 20:55 95 Nasal Cannula 2.0 28 10/31/18 20:00 98.3 105 20 106/68 (81) 95 10/31/18 20:00 Nasal Cannula 2.0 10/31/18 19:32 105 10/31/18 19:04 98.2 Intake and Output 10/31/18 11/01/18 18:59 06:59 Intake Total 1080.0 ml 377.5 ml Output Total 1025 ml 650 ml Balance 55.0 ml -272.5 ml Intake Oral 460 ml 240 ml IV Total 620.0 ml 137.5 ml Output Urine Total 1000 ml 575 ml Stool Total 25 ml 75 ml Laboratory Tests Test 11/01/18 03:45 White Blood Count 11.2 K/UL (4.8-10.8) H Red Blood Count 2.65 M/UL (4.20-5.40) L Hemoglobin 8.2 G/DL (12.0-16.0) L Hematocrit 25.6 % (37.0-47.0) L Mean Corpuscular Volume 97 FL (80-99) Mean Corpuscular Hemoglobin 31.0 PG (27.0-31.0) Mean Corpuscular Hemoglobin Concent 32.1 G/DL (32.0-36.0) Red Cell Distribution Width 22.8 % (11.6-14.8) H Platelet Count 61 K/UL (150-450) L Mean Platelet Volume 5.9 FL (6.5-10.1) L Neutrophils (%) (Auto) % (45.0-75.0) Lymphocytes (%) (Auto) % (20.0-45.0) Monocytes (%) (Auto) % (1.0-10.0) Eosinophils (%) (Auto) % (0.0-3.0) Basophils (%) (Auto) % (0.0-2.0) Sodium Level 143 MMOL/L (136-145) Potassium Level 3.7 MMOL/L (3.5-5.1) Chloride Level 106 MMOL/L (98-107) Carbon Dioxide Level 28 MMOL/L (21-32) Anion Gap 9 mmol/L (5-15) Blood Urea Nitrogen 18 mg/dL (7-18) Creatinine 1.6 MG/DL (0.55-1.30) H Estimat Glomerular Filtration Rate 33.1 mL/min (>60) Glucose Level 169 MG/DL (74-106) H Calcium Level 9.1 MG/DL (8.5-10.1) Total Bilirubin 9.4 MG/DL (0.2-1.0) H Direct Bilirubin 7.1 MG/DL (0.0-0.3) H Aspartate Amino Transf (AST/SGOT) 101 U/L (15-37) H Alanine Aminotransferase (ALT/SGPT) 63 U/L (12-78) Alkaline Phosphatase 337 U/L (46-116) H Ammonia 84 umol/L (11-32) H Total Protein 5.8 G/DL (6.4-8.2) L Albumin 2.0 G/DL (3.4-5.0) L Globulin 3.8 g/dL Albumin/Globulin Ratio 0.5 (1.0-2.7) L Microbiology Date/Time Source Procedure Growth Status 10/29/18 16:50 Indwelling Cath Urine Culture - Final Escherichia Coli Complete Objective HEAD AND NECK: No JVD. LUNGS: Coarse rhonchi. CARDIOVASCULAR: Regular S1, S2 with no gallop or murmur. ABDOMEN: Obese. EXTREMITIES: No pitting edema. Sean Montanez MD Nov 01, 2018 16:52
--- NOTE | 2018-11-01 19:28 | NUR ---
HAND-OFF: Report given to KARI Marley.
--- NOTE | 2018-11-01 19:29 | NUR ---
NURSE NOTES: BEDSIDE REPORT RECEIVED FROM KARI SOLIMAN. PT IS DANISH SPEAKING, FAMILY AT BEDSIDE. ACCORDING TO FAMILY SHE IS ALERT AND ORIENTED X3, ABLE TO MAKE NEEDS KNOWN. [employer] OFFICER SHOWING ST AROUND 110, [place] AWARE. NC 2L, SATING AT 95. PT HAS RT, LIQUID STOOL. BLANCHARD DRAINING. ACCUCHEK ACHS. BLE EDEMA NOTED. PICC LISA TKO; ASYMPTOMATIC. BED IS LOCKED IN LOWEST POSITION, SR X3, CALL [facility] W/ IN REACH, BED ALARM ON. WILL CONTINUE TO MONITOR AND FOLLOW W/ PLAN OF CARE.
[2018-11-01 20:00] VITALS: BP 125/68
[2018-11-01] MEDS: Dyna-Hex 2% Top Sol 2oz TOPIC SCH (20:17)
[2018-11-01] MEDS: Morphine Sulfate 2mg/ml Inj(IV/IM USE ONLY) IVP PRN (20:22)
--- NOTE | 2018-11-01 21:11 | General Progress Note ---
Assessment/Plan Problem List: (1) Hypotension ICD Codes: I95.9 - Hypotension, unspecified SNOMED: 46838404 (2) Hyperglycemia ICD Codes: R73.9 - Hyperglycemia, unspecified SNOMED: 18324310 (3) Dyspnea ICD Codes: R06.00 - Dyspnea, unspecified SNOMED: 138066351 (4) Hypoxemia ICD Codes: R09.02 - Hypoxemia SNOMED: 403274006 (5) Contusion of left knee ICD Codes: S80.02XA - Contusion of left knee, initial encounter SNOMED: 82303767 (6) Sepsis ICD Codes: A41.9 - Sepsis, unspecified organism SNOMED: 11430515 (7) Septic shock ICD Codes: A41.9 - Sepsis, unspecified organism; R65.21 - Severe sepsis with septic shock SNOMED: 12528707 (8) Liver cirrhosis ICD Codes: K74.60 - Unspecified cirrhosis of liver SNOMED: 32249016 (9) Pneumonia ICD Codes: J18.9 - Pneumonia, unspecified organism SNOMED: 511125965 (10) Respiratory disorder with ventilator dependence ICD Codes: J98.9 - Respiratory disorder, unspecified; Z99.11 - Dependence on respirator [ventilator] status SNOMED: 07357103, 019970913 (11) Shock liver ICD Codes: K72.00 - Acute and subacute hepatic failure without coma SNOMED: 530394037 Status: progressing Assessment/Plan jaundiced morbid obesity vitals holding afebrile check ammonia level hepatic encephalopathy improved lft edema cihrrosis Subjective ROS Limited/Unobtainable: Yes Allergies: Coded Allergies: No Known Allergies (Unverified , 05/06/18) Objective Last 24 Hour Vital Signs Date Time Temp Pulse Resp B/P (MAP) Pulse Ox O2 Delivery O2 Flow Rate FiO2 11/01/18 16:00 98.3 112 22 150/74 (99) 96 11/01/18 16:00 110 11/01/18 16:00 Nasal Cannula 2.0 11/01/18 12:00 98.0 111 22 141/61 (87) 96 11/01/18 12:00 Nasal Cannula 2.0 11/01/18 12:00 108 11/01/18 08:00 97.9 108 23 138/74 (95) 96 11/01/18 08:00 107 11/01/18 08:00 Nasal Cannula 2.0 11/01/18 07:25 Nasal Cannula 2.0 28 11/01/18 07:25 97 Nasal Cannula 2.0 28 11/01/18 04:00 98.0 105 22 130/73 (92) 96 11/01/18 04:00 Nasal Cannula 2.0 11/01/18 03:46 107 11/01/18 00:00 Nasal Cannula 2.0 11/01/18 00:00 98.2 107 20 124/69 (87) 95 10/31/18 23:29 105 Intake and Output 10/31/18 11/01/18 19:00 07:00 Intake Total 1080.0 ml 377.5 ml Output Total 1025 ml 650 ml Balance 55.0 ml -272.5 ml Intake Oral 460 ml 240 ml IV Total 620.0 ml 137.5 ml Output Urine Total 1000 ml 575 ml Stool Total 25 ml 75 ml Laboratory Tests 11/01/18 03:45: White Blood Count 11.2H, Red Blood Count 2.65L, Hemoglobin 8.2L, Hematocrit 25.6L, Mean Corpuscular Volume 97, Mean Corpuscular Hemoglobin 31.0, Mean Corpuscular Hemoglobin Concent 32.1, Red Cell Distribution Width 22.8H, Platelet Count 61L, Mean Platelet Volume 5.9L, Neutrophils (%) (Auto) , Lymphocytes (%) (Auto) , Monocytes (%) (Auto) , Eosinophils (%) (Auto) , Basophils (%) (Auto) , Sodium Level 143, Potassium Level 3.7, Chloride Level 106 , Carbon Dioxide Level 28, Anion Gap 9, Blood Urea Nitrogen 18, Creatinine 1.6H , Estimat Glomerular Filtration Rate 33.1, Glucose Level 169H, Calcium Level 9.1 , Total Bilirubin 9.4H, Direct Bilirubin 7.1H, Aspartate Amino Transf (AST/SGOT ) 101H, Alanine Aminotransferase (ALT/SGPT) 63, Alkaline Phosphatase 337H, Ammonia 84H, Total Protein 5.8L, Albumin 2.0L, Globulin 3.8, Albumin/Globulin Ratio 0.5L Height (Feet): 5 Height (Inches): 1.00 Weight (Pounds): 235 Neck: supple Cardiovascular: normal rate Respiratory/Chest: lungs clear Abdomen: soft Michael Kelley MD Nov 01, 2018 21:11
[2018-11-02 04:00] VITALS: BP 127/68
[2018-11-02 05:00] LABS: HEMATOCRIT 28.1 % (37.0-47.0); HEMOGLOBIN 8.7 G/DL (12.0-16.0); MEAN CORPUSCULAR VOLUME 98 FL (80-99); PLATELET COUNT 74 K/UL (150-450); RED BLOOD COUNT 2.88 M/UL (4.20-5.40); RED CELL DISTRIBUTION WIDTH 23.7 % (11.6-14.8); WHITE BLOOD COUNT 11.6 K/UL (4.8-10.8)
[2018-11-02 05:36] LABS: ALANINE AMINOTRANSFERASE 68 U/L (12-78); ALBUMIN/GLOBULIN RATIO 0.5 (1.0-2.7); ALKALINE PHOSPHATASE 347 U/L (46-116); ANION GAP 8 mmol/L (5-15); ASPARTATE AMINO TRANSFERASE 105 U/L (15-37); BILIRUBIN,DIRECT 7.2 MG/DL (0.0-0.3); BILIRUBIN,TOTAL 9.2 MG/DL (0.2-1.0); BLOOD UREA NITROGEN 16 mg/dL (7-18); CALCIUM 9.1 MG/DL (8.5-10.1); CARBON DIOXIDE 29 MMOL/L (21-32); CHLORIDE 107 MMOL/L (98-107); CREATININE 1.6 MG/DL (0.55-1.30); POTASSIUM 3.5 MMOL/L (3.5-5.1); SODIUM 144 MMOL/L (136-145)
[2018-11-02] MEDS: Lactulose 20gm/30ml UDC ORAL SCH ×3 (05:39→21:53)
[2018-11-02] MEDS: NovoLOG Insulin Flexpen SUBQ SCH ×4 (05:40→21:51)
--- NOTE | 2018-11-02 07:14 | NUR ---
HAND-OFF: Report given to KARI SOLIMAN.
[2018-11-02 08:00] VITALS: BP 142/86
[2018-11-02] MEDS: Digoxin 0.125mg tab NG SCH (08:35)
[2018-11-02] MEDS: Furosemide 40mg tab ORAL SCH (08:35)
[2018-11-02] MEDS: Spironolactone 50mg tab ORAL SCH (08:36)
[2018-11-02] MEDS ORDERED: Phytonadione 10 mg/mL 1ml amp SUBQ SCH (09:00)
--- NOTE | 2018-11-02 09:55 | General Progress Note ---
Assessment/Plan Problem List: (1) CAD (coronary artery disease) ICD Codes: I25.10 - Atherosclerotic heart disease of [place] coronary artery without angina pectoris SNOMED: 01481405 (2) RI (3) Thrombocytopenia ICD Codes: D69.6 - Thrombocytopenia, unspecified SNOMED: 894828834 (4) Respiratory failure ICD Codes: J96.90 - Respiratory failure, unspecified, unspecified whether with hypoxia or hypercapnia SNOMED: 974104162 (5) Dysphagia ICD Codes: R13.10 - Dysphagia, unspecified SNOMED: 88462324, 858221372 (6) Elevated CEA ICD Codes: R97.0 - Elevated carcinoembryonic antigen [CEA] SNOMED: 214313016 (7) Shock liver ICD Codes: K72.00 - Acute and subacute hepatic failure without coma SNOMED: 475496645 (8) Liver cirrhosis ICD Codes: K74.60 - Unspecified cirrhosis of liver SNOMED: 88911678 (9) Normocytic anemia ICD Codes: D64.9 - Anemia, unspecified SNOMED: 702063419 Assessment/Plan ppi to daily monitor H&H fu LFTS>> work up for elevated CEA when more stable lasix changed to 20 mg IV aldactone 100 fu labs xifaxan and lactulose albumin PT/OT consider transfer to [facility] soon needs out patient fu for liver transplant evaluation Subjective ROS Limited/Unobtainable: Yes Allergies: Coded Allergies: No Known Allergies (Unverified , 05/06/18) Subjective G tube was removed yesterday and patient started on diet. Patient tolerating the liquid portion of her diet well but only tolerated 10% of the solid portion Objective Last 24 Hour Vital Signs Date Time Temp Pulse Resp B/P (MAP) Pulse Ox O2 Delivery O2 Flow Rate FiO2 11/02/18 08:35 108 11/02/18 08:00 97.9 107 24 142/86 (104) 96 11/02/18 08:00 Nasal Cannula 2.0 11/02/18 08:00 105 11/02/18 04:00 98.3 106 24 127/68 (87) 97 11/02/18 04:00 107 11/02/18 04:00 Nasal Cannula 2.0 11/01/18 20:00 Nasal Cannula 2.0 11/01/18 20:00 99.1 110 32 125/68 (87) 96 11/01/18 20:00 113 11/01/18 19:00 96 Nasal Cannula 2.0 28 11/01/18 19:00 Nasal Cannula 2.0 28 11/01/18 16:00 98.3 112 22 150/74 (99) 96 11/01/18 16:00 110 11/01/18 16:00 Nasal Cannula 2.0 11/01/18 12:00 98.0 111 22 141/61 (87) 96 11/01/18 12:00 Nasal Cannula 2.0 11/01/18 12:00 108 Intake and Output 11/01/18 11/02/18 19:00 07:00 Intake Total 300 ml 240 ml Output Total 800 ml 550 ml Balance -500 ml -310 ml Intake Oral 300 ml 240 ml Output Urine Total 750 ml 500 ml Stool Total 50 ml 50 ml Laboratory Tests 11/02/18 04:00: White Blood Count 11.6H, Red Blood Count 2.88L, Hemoglobin 8.7L, Hematocrit 28.1L, Mean Corpuscular Volume 98, Mean Corpuscular Hemoglobin 30.2, Mean Corpuscular Hemoglobin Concent 30.9L, Red Cell Distribution Width 23.7H, Platelet Count 74L, Mean Platelet Volume 6.2L, Neutrophils (%) (Auto) , Lymphocytes (%) (Auto) , Monocytes (%) (Auto) , Eosinophils (%) (Auto) , Basophils (%) (Auto) , Sodium Level 144, Potassium Level 3.5, Chloride Level 107 , Carbon Dioxide Level 29, Anion Gap 8, Blood Urea Nitrogen 16, Creatinine 1.6H , Estimat Glomerular Filtration Rate 33.1, Glucose Level 154H, Calcium Level 9.1 , Total Bilirubin 9.2H, Direct Bilirubin 7.2H, Aspartate Amino Transf (AST/SGOT ) 105H, Alanine Aminotransferase (ALT/SGPT) 68, Alkaline Phosphatase 347H, Total Protein 6.1L, Albumin 2.0L, Globulin 4.1, Albumin/Globulin Ratio 0.5L Height (Feet): 5 Height (Inches): 1.00 Weight (Pounds): 236 General Appearance: lethargic EENT: normal ENT inspection Neck: supple Cardiovascular: normal rate Respiratory/Chest: decreased breath sounds Abdomen: normal bowel sounds, non tender, soft Extremities: swelling aSmuel Reynolds MD Nov 02, 2018 09:55
[2018-11-02 12:00] VITALS: BP 142/72
--- NOTE | 2018-11-02 13:49 | Cardiac Electrophysiology PN ---
Assessment/Plan Assessment/Plan 1. Atrial fib with RVR. Off Beta janet or CA janet for hypotension. On Dig 0.125 qod. In SR Off Amiodarone for high LFTs and Bilirubin 7.3 2. S/P Septic shock. On broad spectrum IV antibiotic. 3. Troponin leak. The levels are flat and likely due to this patient's sepsis and septic shock. Her echocardiogram showed ejection fraction 60% to 65% and EKG showed no acute ischemic changes. 4. Nonsustained VT. EF 65% 5. Diabetes. 6. Renal failure. 7. Morbid obesity. 8. Dysphagia, NG removed. Feeding started 9. S/P Respiratory failure, Extubated 10. Cirrhosis, high Bilirubin and ascites. On Lasix 20 iv daily and Aldactone [address] Rodolfo HUNG RN Subjective Subjective No events. RN and family at bedside. Objective Last 24 Hour Vital Signs Date Time Temp Pulse Resp B/P (MAP) Pulse Ox O2 Delivery O2 Flow Rate FiO2 11/02/18 12:00 Nasal Cannula 2.0 11/02/18 08:35 108 11/02/18 08:00 97.9 107 24 142/86 (104) 96 11/02/18 08:00 Nasal Cannula 2.0 11/02/18 08:00 105 11/02/18 04:00 98.3 106 24 127/68 (87) 97 11/02/18 04:00 107 11/02/18 04:00 Nasal Cannula 2.0 11/01/18 20:00 Nasal Cannula 2.0 11/01/18 20:00 99.1 110 32 125/68 (87) 96 11/01/18 20:00 113 11/01/18 19:00 96 Nasal Cannula 2.0 28 11/01/18 19:00 Nasal Cannula 2.0 28 11/01/18 16:00 98.3 112 22 150/74 (99) 96 11/01/18 16:00 110 11/01/18 16:00 Nasal Cannula 2.0 Intake and Output 11/01/18 11/02/18 18:59 06:59 Intake Total 300 ml 240 ml Output Total 800 ml 550 ml Balance -500 ml -310 ml Intake Oral 300 ml 240 ml Output Urine Total 750 ml 500 ml Stool Total 50 ml 50 ml Laboratory Tests Test 11/02/18 04:00 White Blood Count 11.6 K/UL (4.8-10.8) H Red Blood Count 2.88 M/UL (4.20-5.40) L Hemoglobin 8.7 G/DL (12.0-16.0) L Hematocrit 28.1 % (37.0-47.0) L Mean Corpuscular Volume 98 FL (80-99) Mean Corpuscular Hemoglobin 30.2 PG (27.0-31.0) Mean Corpuscular Hemoglobin Concent 30.9 G/DL (32.0-36.0) L Red Cell Distribution Width 23.7 % (11.6-14.8) H Platelet Count 74 K/UL (150-450) L Mean Platelet Volume 6.2 FL (6.5-10.1) L Neutrophils (%) (Auto) % (45.0-75.0) Lymphocytes (%) (Auto) % (20.0-45.0) Monocytes (%) (Auto) % (1.0-10.0) Eosinophils (%) (Auto) % (0.0-3.0) Basophils (%) (Auto) % (0.0-2.0) Sodium Level 144 MMOL/L (136-145) Potassium Level 3.5 MMOL/L (3.5-5.1) Chloride Level 107 MMOL/L (98-107) Carbon Dioxide Level 29 MMOL/L (21-32) Anion Gap 8 mmol/L (5-15) Blood Urea Nitrogen 16 mg/dL (7-18) Creatinine 1.6 MG/DL (0.55-1.30) H Estimat Glomerular Filtration Rate 33.1 mL/min (>60) Glucose Level 154 MG/DL (74-106) H Calcium Level 9.1 MG/DL (8.5-10.1) Total Bilirubin 9.2 MG/DL (0.2-1.0) H Direct Bilirubin 7.2 MG/DL (0.0-0.3) H Aspartate Amino Transf (AST/SGOT) 105 U/L (15-37) H Alanine Aminotransferase (ALT/SGPT) 68 U/L (12-78) Alkaline Phosphatase 347 U/L (46-116) H Total Protein 6.1 G/DL (6.4-8.2) L Albumin 2.0 G/DL (3.4-5.0) L Globulin 4.1 g/dL Albumin/Globulin Ratio 0.5 (1.0-2.7) L Objective HEAD AND NECK: No JVD. LUNGS: Coarse rhonchi. CARDIOVASCULAR: Regular S1, S2 with no gallop or murmur. ABDOMEN: Obese. EXTREMITIES: No edema. Sean Montanez MD Nov 02, 2018 13:49
--- NOTE | 2018-11-02 14:09 | Nephrology Progress Note ---
Assessment/Plan Problem List: (1) JONNATHAN (acute kidney injury) Assessment: resolving (2) Shock liver (3) Septic shock (4) Respiratory disorder with ventilator dependence Assessment - Acute Oliguric Renal Failure Cr down to 1.1 - Respiratory disorder with s/p mechanical ventilator - Septic shock , Leukocytosis resolved - Pneumonia - Liver cirrhosis - Obese - Anemia . Plan PO K as needed check dig level mag IV as needed transfused 2 units previously down on IV fluid K and Phos as needed Hemodynamic support Pulmonary support Monitor renal parameters avoid nephrotoxics as best as possible per orders discussed with RN Subjective ROS Limited/Unobtainable: No Constitutional: Reports: malaise Objective Objective Last 24 Hour Vital Signs Date Time Temp Pulse Resp B/P (MAP) Pulse Ox O2 Delivery O2 Flow Rate FiO2 11/02/18 12:00 Nasal Cannula 2.0 11/02/18 08:35 108 11/02/18 08:00 97.9 107 24 142/86 (104) 96 11/02/18 08:00 Nasal Cannula 2.0 11/02/18 08:00 105 11/02/18 04:00 98.3 106 24 127/68 (87) 97 11/02/18 04:00 107 11/02/18 04:00 Nasal Cannula 2.0 11/01/18 20:00 Nasal Cannula 2.0 11/01/18 20:00 99.1 110 32 125/68 (87) 96 11/01/18 20:00 113 11/01/18 19:00 96 Nasal Cannula 2.0 28 11/01/18 19:00 Nasal Cannula 2.0 28 11/01/18 16:00 98.3 112 22 150/74 (99) 96 11/01/18 16:00 110 11/01/18 16:00 Nasal Cannula 2.0 Intake and Output 11/01/18 11/02/18 18:59 06:59 Intake Total 300 ml 240 ml Output Total 800 ml 550 ml Balance -500 ml -310 ml Intake Oral 300 ml 240 ml Output Urine Total 750 ml 500 ml Stool Total 50 ml 50 ml Laboratory Tests 11/02/18 04:00: White Blood Count 11.6H, Red Blood Count 2.88L, Hemoglobin 8.7L, Hematocrit 28.1L, Mean Corpuscular Volume 98, Mean Corpuscular Hemoglobin 30.2, Mean Corpuscular Hemoglobin Concent 30.9L, Red Cell Distribution Width 23.7H, Platelet Count 74L, Mean Platelet Volume 6.2L, Neutrophils (%) (Auto) , Lymphocytes (%) (Auto) , Monocytes (%) (Auto) , Eosinophils (%) (Auto) , Basophils (%) (Auto) , Sodium Level 144, Potassium Level 3.5, Chloride Level 107 , Carbon Dioxide Level 29, Anion Gap 8, Blood Urea Nitrogen 16, Creatinine 1.6H , Estimat Glomerular Filtration Rate 33.1, Glucose Level 154H, Calcium Level 9.1 , Total Bilirubin 9.2H, Direct Bilirubin 7.2H, Aspartate Amino Transf (AST/SGOT ) 105H, Alanine Aminotransferase (ALT/SGPT) 68, Alkaline Phosphatase 347H, Total Protein 6.1L, Albumin 2.0L, Globulin 4.1, Albumin/Globulin Ratio 0.5L Height (Feet): 5 Height (Inches): 1.00 Weight (Pounds): 236 General Appearance: no apparent distress Objective NO CHANGE Alex Cueto MD Nov 02, 2018 14:09
--- NOTE | 2018-11-02 14:17 | Surgery Progress Note ---
Surgery Progress Note Subjective Additional Comments no acute events. stable. downgraded. comfortable. tolerating diet. Objective Last 24 Hour Vital Signs Date Time Temp Pulse Resp B/P (MAP) Pulse Ox O2 Delivery O2 Flow Rate FiO2 11/02/18 12:00 Nasal Cannula 2.0 11/02/18 08:35 108 11/02/18 08:00 97.9 107 24 142/86 (104) 96 11/02/18 08:00 Nasal Cannula 2.0 11/02/18 08:00 105 11/02/18 04:00 98.3 106 24 127/68 (87) 97 11/02/18 04:00 107 11/02/18 04:00 Nasal Cannula 2.0 11/01/18 20:00 Nasal Cannula 2.0 11/01/18 20:00 99.1 110 32 125/68 (87) 96 11/01/18 20:00 113 11/01/18 19:00 96 Nasal Cannula 2.0 28 11/01/18 19:00 Nasal Cannula 2.0 28 11/01/18 16:00 98.3 112 22 150/74 (99) 96 11/01/18 16:00 110 11/01/18 16:00 Nasal Cannula 2.0 I&O Intake and Output 11/01/18 11/02/18 18:59 06:59 Intake Total 300 ml 240 ml Output Total 800 ml 550 ml Balance -500 ml -310 ml Intake Oral 300 ml 240 ml Output Urine Total 750 ml 500 ml Stool Total 50 ml 50 ml Drains: none Cardiovascular: RSR Respiratory: clear Abdomen: soft, non-tender, present bowel sounds, non-distended Extremities: no tenderness, no cyanosis Laboratory Tests Test 11/02/18 04:00 White Blood Count 11.6 K/UL (4.8-10.8) H Red Blood Count 2.88 M/UL (4.20-5.40) L Hemoglobin 8.7 G/DL (12.0-16.0) L Hematocrit 28.1 % (37.0-47.0) L Mean Corpuscular Volume 98 FL (80-99) Mean Corpuscular Hemoglobin 30.2 PG (27.0-31.0) Mean Corpuscular Hemoglobin Concent 30.9 G/DL (32.0-36.0) L Red Cell Distribution Width 23.7 % (11.6-14.8) H Platelet Count 74 K/UL (150-450) L Mean Platelet Volume 6.2 FL (6.5-10.1) L Neutrophils (%) (Auto) % (45.0-75.0) Lymphocytes (%) (Auto) % (20.0-45.0) Monocytes (%) (Auto) % (1.0-10.0) Eosinophils (%) (Auto) % (0.0-3.0) Basophils (%) (Auto) % (0.0-2.0) Sodium Level 144 MMOL/L (136-145) Potassium Level 3.5 MMOL/L (3.5-5.1) Chloride Level 107 MMOL/L (98-107) Carbon Dioxide Level 29 MMOL/L (21-32) Anion Gap 8 mmol/L (5-15) Blood Urea Nitrogen 16 mg/dL (7-18) Creatinine 1.6 MG/DL (0.55-1.30) H Estimat Glomerular Filtration Rate 33.1 mL/min (>60) Glucose Level 154 MG/DL (74-106) H Calcium Level 9.1 MG/DL (8.5-10.1) Total Bilirubin 9.2 MG/DL (0.2-1.0) H Direct Bilirubin 7.2 MG/DL (0.0-0.3) H Aspartate Amino Transf (AST/SGOT) 105 U/L (15-37) H Alanine Aminotransferase (ALT/SGPT) 68 U/L (12-78) Alkaline Phosphatase 347 U/L (46-116) H Total Protein 6.1 G/DL (6.4-8.2) L Albumin 2.0 G/DL (3.4-5.0) L Globulin 4.1 g/dL Albumin/Globulin Ratio 0.5 (1.0-2.7) L Plan Problems: (1) Multiple injuries due to trauma (2) Sepsis Assessment & Plan: Labs noted lactic acidosis improved with resuscitation CT findings: Limited assessment of the GI tract, due to lack of enteric contrast administration. Exam is also limited due to patient motion artifact and lack of IV contrast administration Evidence of hepatic cirrhosis Small amount of ascites, likely related to the above Surgically absent gallbladder Bilateral basilar pulmonary parenchymal atelectatic changes and possible patchy consolidation Minimal edema of the bilateral flank subcutaneous fat Other findings as noted, including degenerative spondylosis, right hepatic lobe capsular calcification, Quiroz catheter has made a great improvement. denies abd pain. labs improved. decompensated liver cirrhosis LFT's abnormal leukocytosis overall improved but prognosis still guarded Limited assessment of the GI tract, due to lack of enteric contrast administration Abdominal ascites, increased in extent since prior study Increased edema of the subcutaneous fat, since previous study Hepatic surface nodularity, consistent with cirrhosis, also previously reported Borderline splenomegaly Bilateral basilar pulmonary patchy consolidation and atelectasis as well as some congestion. Findings as noted, including degenerative spondylosis, PICC, Quiroz catheter, rectal tube, nasogastric tube CT chest noted ng tube removed Continue with p.o. diet. goals of care for patient; liver center? comfort? snf? pending decision -trend labs will follow with recs thank you (3) Liver cirrhosis Josh Samuel Nov 02, 2018 14:17
--- NOTE | 2018-11-02 14:19 | Infectious Diseases Prog Note ---
Assessment/Plan Assessment/Plan A: 1. Septic Shock resolved.culture are negative so far 2. aspiration pneumonia. 3. acute renal failure , resolved 4. Diabetes mellitus. 5. Obesity. 6. Lactic acidosis. 7. Anemia.s/p transfusion 8. Cirrhosis with ascites 9. Enteritis, ileus resolved 10. Leukocytosis resolved 11. GI bleeding 12. UTI RECOMMENDATION: Continue Cipro remove PICC line before discharge Subjective ROS Limited/Unobtainable: Yes Respiratory: Reports: no symptoms Gastrointestinal/Abdominal: Reports: no symptoms Genitourinary: Reports: no symptoms Musculoskeletal: Reports: no symptoms Allergies: Coded Allergies: No Known Allergies (Unverified , 05/06/18) Objective Vital Signs Last 24 Hour Vital Signs Date Time Temp Pulse Resp B/P (MAP) Pulse Ox O2 Delivery O2 Flow Rate FiO2 11/02/18 12:00 Nasal Cannula 2.0 11/02/18 08:35 108 11/02/18 08:00 97.9 107 24 142/86 (104) 96 11/02/18 08:00 Nasal Cannula 2.0 11/02/18 08:00 105 11/02/18 04:00 98.3 106 24 127/68 (87) 97 11/02/18 04:00 107 11/02/18 04:00 Nasal Cannula 2.0 11/01/18 20:00 Nasal Cannula 2.0 11/01/18 20:00 99.1 110 32 125/68 (87) 96 11/01/18 20:00 113 11/01/18 19:00 96 Nasal Cannula 2.0 28 11/01/18 19:00 Nasal Cannula 2.0 28 11/01/18 16:00 98.3 112 22 150/74 (99) 96 11/01/18 16:00 110 11/01/18 16:00 Nasal Cannula 2.0 Height (Feet): 5 Height (Inches): 1.00 Weight (Pounds): 236 General Appearance: no acute distress HEENT: other - icterus sclera Respiratory/Chest: lungs clear Cardiovascular: tachycardia, other - PICC line Abdomen: soft, non tender, other - rectal tube Extremities: other - anasarca Neurologic/Psychiatric: alert, responsive Laboratory Tests Test 11/02/18 04:00 White Blood Count 11.6 K/UL (4.8-10.8) H Red Blood Count 2.88 M/UL (4.20-5.40) L Hemoglobin 8.7 G/DL (12.0-16.0) L Hematocrit 28.1 % (37.0-47.0) L Mean Corpuscular Volume 98 FL (80-99) Mean Corpuscular Hemoglobin 30.2 PG (27.0-31.0) Mean Corpuscular Hemoglobin Concent 30.9 G/DL (32.0-36.0) L Red Cell Distribution Width 23.7 % (11.6-14.8) H Platelet Count 74 K/UL (150-450) L Mean Platelet Volume 6.2 FL (6.5-10.1) L Neutrophils (%) (Auto) % (45.0-75.0) Lymphocytes (%) (Auto) % (20.0-45.0) Monocytes (%) (Auto) % (1.0-10.0) Eosinophils (%) (Auto) % (0.0-3.0) Basophils (%) (Auto) % (0.0-2.0) Sodium Level 144 MMOL/L (136-145) Potassium Level 3.5 MMOL/L (3.5-5.1) Chloride Level 107 MMOL/L (98-107) Carbon Dioxide Level 29 MMOL/L (21-32) Anion Gap 8 mmol/L (5-15) Blood Urea Nitrogen 16 mg/dL (7-18) Creatinine 1.6 MG/DL (0.55-1.30) H Estimat Glomerular Filtration Rate 33.1 mL/min (>60) Glucose Level 154 MG/DL (74-106) H Calcium Level 9.1 MG/DL (8.5-10.1) Total Bilirubin 9.2 MG/DL (0.2-1.0) H Direct Bilirubin 7.2 MG/DL (0.0-0.3) H Aspartate Amino Transf (AST/SGOT) 105 U/L (15-37) H Alanine Aminotransferase (ALT/SGPT) 68 U/L (12-78) Alkaline Phosphatase 347 U/L (46-116) H Total Protein 6.1 G/DL (6.4-8.2) L Albumin 2.0 G/DL (3.4-5.0) L Globulin 4.1 g/dL Albumin/Globulin Ratio 0.5 (1.0-2.7) L Current Medications Medications (Trade) Dose Ordered Sig/Patricia Route PRN Reason Start Time Stop Time Status Last Admin Dose Admin Albuterol/ Ipratropium (Albuterol/ Ipratropium) 3 ml Q6H PRN HHN shortness of breath 10/29/18 17:30 11/03/18 17:29 Chlorhexidine Gluconate (Nguyen-Hex 2%) 1 applic DAILY@2000 TOPIC 10/17/18 20:00 11/09/18 19:59 11/01/18 20:17 Ciprofloxacin (Cipro 250mg tab) 250 mg EVERY 12 HOURS ORAL 11/01/18 21:00 11/08/18 20:59 11/02/18 08:35 Dextrose (Dextrose 50%) 25 ml Q30M PRN IV Hypoglycemia 10/17/18 14:45 11/10/18 13:44 Dextrose (Dextrose 50%) 50 ml Q30M PRN IV Hypoglycemia 10/17/18 14:45 11/10/18 13:44 Digoxin (Lanoxin) 0.125 mg QOD NG 10/19/18 09:00 11/15/18 08:59 11/02/18 08:35 Diphenhydramine HCl (Benadryl) 25 mg Q6H PRN IVP Itching 10/17/18 14:30 11/08/18 14:29 11/01/18 18:04 Furosemide (Lasix) 20 mg DAILY IV 11/03/18 09:00 12/03/18 08:59 Insulin Aspart (NovoLOG) BEFORE MEALS AND HS SUBQ 10/17/18 16:30 11/10/18 16:29 11/02/18 12:06 Lactulose (Cephulac) 30 gm EVERY 8 HOURS ORAL 10/31/18 14:00 11/12/18 17:59 11/02/18 13:40 Midazolam HCl (Versed 2mg/2ml vial) 1 mg Q2H PRN IVP For Anxiety 10/17/18 14:30 11/11/18 14:29 Morphine Sulfate (Morphine Sulfate) 2 mg Q4H PRN IVP For Pain 10/31/18 18:15 11/07/18 18:14 11/01/18 20:22 Pantoprazole (Protonix) 40 mg DAILY ORAL 11/02/18 09:00 11/27/18 20:59 11/02/18 08:36 Rifaximin (Xifaxan) 550 mg EVERY 12 HOURS ORAL 10/27/18 09:00 11/10/18 08:59 11/02/18 08:35 Spironolactone (Aldactone) 100 mg DAILY ORAL 10/27/18 09:00 11/22/18 09:44 11/02/18 08:36 Wesley Akers MD Nov 02, 2018 14:19
--- NOTE | 2018-11-02 14:30 | NUR ---
TRANSFER TO FLOOR: Patient transferred to Telemetry RM 206-2, per Dr. Delarosa. Report given to KARI Gallardo. Belongings did not have belongings listed in belongings list. Family at bedside.
[2018-11-02 16:00] VITALS: BP 129/96
[2018-11-02] MEDS ORDERED: Albuterol/Ipratropium 3ml neb HHN PRN (16:00)
[2018-11-02] MEDS ORDERED: Morphine Sulfate 2mg/ml Inj(IV/IM USE ONLY) IVP PRN (16:00)
--- NOTE | 2018-11-02 16:24 | General Progress Note ---
Assessment/Plan Assessment/Plan # Leukocytosis/Elevated white blood cell count, unspecified likely related to underlying stress reaction, or underlying infection --> have reviewed peripheral smear and bandemia/neutrophilia noted --> continue antibiotics if they have been started by ID team (currently theu have been stopped) --> monitor for resolution -->WBC trend: 14-->10-->15-->12-->11-->10-->8.6-->8.1-->10 # Thrombocytopenia - potential causes multifactorial but most likely contributor is cirrhosis, that is chronic, elevated bili with ascites --> Hep panel and HIV negative --> CT a/p show cirrhosis as well as us --> Peripheral smear ordered to evaluate for blasts /schistocytes is negative --> abx and other meds have been reviewed --> ok for ppx if plt >50k w/ either heparin or lovenox --> Transfuse if Plt < 20k and fever, or if Plt < 10k without fever --> HIT negative, hold off heparin --> Plt trend : 54-->92-->106-->113-->62-->61-->61k-->74k --> awaiting transfer to higher level of care for transplant of the liver # Anemia of iron deficiency as noted with low % sat and tibc elevated --> Anemia workup has been reviewed --> No evidence of hemolysis is noted, peripheral smear has been reviewed. --> Hgb goal >7. Transfuse prn. --> Iron IV X 5 days already given --> Medications have been reviewed # CEA of 10.5 --> Ct of abdomen/pelvis reviewed and is negative --> as per gi recs --> scope as needed # Sepsis likely contributing to low plts --> on abx as needed # Shock, hypovolemic and distributive --> per id and pulm/cc care # Multisystem organ failure. # Lactic acidosis. # JONNATHAN. # Abnormal LFTs, likely shock liver. # Abnormal troponin, likely demand ischemia. # Obesity. # Respiratory failure on vent --> now extubated # Afib on meds as per cards The timing of this note does not necessarily reflect the time of the patient was seen. Greatly appreciate consultation! Subjective Constitutional: Denies: no symptoms, chills, diaphoresis, fever, malaise, weakness, other HEENT: Denies: no symptoms, eye pain, blurred vision, tearing, double vision, ear pain, ear discharge, nose pain, nose congestion, throat pain, throat swelling, mouth pain, mouth swelling, other Gastrointestinal/Abdominal: Denies: no symptoms, abdomen distended, abdominal pain, black stools, tarry stools, blood in stool, constipated, diarrhea, difficulty swallowing, nausea, poor appetite, poor fluid intake, rectal bleeding , vomiting, other Neurologic/Psychiatric: Denies: no symptoms, anxiety, depressed, emotional problems, headache, numbness, paresthesia, pre-existing deficit, seizure, tingling, tremors, weakness, other Allergies: Coded Allergies: No Known Allergies (Unverified , 05/06/18) Subjective 3: Pt was seen in ICU on Vent and off pressors, developed atrial fib, wbc trending down to 13, plt trending down to 60 3: remains in the icu, monitoring labs, plts stabilizing, remains critically ill, cea elev 10/15: In ICU on Vent and off pressors, plt 62, no events 10/16 wbc trending up at 14,plt low at 48,weaning well from vent. no acute events , family at bedside 10/17: plts remain low, no events, weaned off vent, no complaints, off pressors 10/18: seen by bedside, wbc trending up at 15, plt low at 50, no events, needs video swallow. NGT 10/19: wbc remains elevated, plt 54, no acute distress reported 10/21: seen by bedside, still with lots of NG tube output, wbc 12, plt trending up 10/22: awake, alert,has high NG tube residual, wbc 11, no events 10/23: comfortable, wbc trending down, plt trending up , no events 10/24: Seen by bedside, leukocytosis resolved, no events 10/25: awake, comfortable, Surgery removed NGT, no events 3.15: NG tube was removed yesterday and patient started on diet, comfortable, no events, plt trending up 10/28: seen by bedside, lethargic, no events 10/29: remains extubated, cbc reviewed, bili remains elevated, lethargic, on abx 10/30: awake, tolerating some diet, no events, plt trending down 10/31: No overnight events reported, awake and comfortable. 11/01: awaiting transfer to higher level of care for transplant, no other events 11/02: transferred to [facility], checking dig level, awaiting transfer to [facility] Objective Last 24 Hour Vital Signs Date Time Temp Pulse Resp B/P (MAP) Pulse Ox O2 Delivery O2 Flow Rate FiO2 11/02/18 12:00 98.1 111 23 142/72 (95) 96 11/02/18 12:00 Nasal Cannula 2.0 11/02/18 08:35 108 11/02/18 08:00 97.9 107 24 142/86 (104) 96 11/02/18 08:00 Nasal Cannula 2.0 11/02/18 08:00 105 11/02/18 04:00 98.3 106 24 127/68 (87) 97 11/02/18 04:00 107 11/02/18 04:00 Nasal Cannula 2.0 11/01/18 20:00 Nasal Cannula 2.0 11/01/18 20:00 99.1 110 32 125/68 (87) 96 11/01/18 20:00 113 11/01/18 19:00 96 Nasal Cannula 2.0 28 11/01/18 19:00 Nasal Cannula 2.0 28 Intake and Output 11/01/18 11/02/18 18:59 06:59 Intake Total 300 ml 240 ml Output Total 800 ml 550 ml Balance -500 ml -310 ml Intake Oral 300 ml 240 ml Output Urine Total 750 ml 500 ml Stool Total 50 ml 50 ml Laboratory Tests 11/02/18 04:00: White Blood Count 11.6H, Red Blood Count 2.88L, Hemoglobin 8.7L, Hematocrit 28.1L, Mean Corpuscular Volume 98, Mean Corpuscular Hemoglobin 30.2, Mean Corpuscular Hemoglobin Concent 30.9L, Red Cell Distribution Width 23.7H, Platelet Count 74L, Mean Platelet Volume 6.2L, Neutrophils (%) (Auto) , Lymphocytes (%) (Auto) , Monocytes (%) (Auto) , Eosinophils (%) (Auto) , Basophils (%) (Auto) , Sodium Level 144, Potassium Level 3.5, Chloride Level 107 , Carbon Dioxide Level 29, Anion Gap 8, Blood Urea Nitrogen 16, Creatinine 1.6H , Estimat Glomerular Filtration Rate 33.1, Glucose Level 154H, Calcium Level 9.1 , Total Bilirubin 9.2H, Direct Bilirubin 7.2H, Aspartate Amino Transf (AST/SGOT ) 105H, Alanine Aminotransferase (ALT/SGPT) 68, Alkaline Phosphatase 347H, Total Protein 6.1L, Albumin 2.0L, Globulin 4.1, Albumin/Globulin Ratio 0.5L, Digoxin Level 0.6L Height (Feet): 5 Height (Inches): 1.00 Weight (Pounds): 236 Objective PHYSICAL EXAMINATION: VITAL SIGNS: reviewed, saturating 98% on NC++, GENERAL: She is an obese female, confused. HEENT: Normocephalic and atraumatic. Oropharynx is clear with dry mucous membranes., NECK: Supple without lymphadenopathy or JVP. CHEST: Clear. HEART: Regular. ABDOMEN: Benign. EXTREMITIES: No cyanosis, clubbing, or edema. There are some ecchymoses Kurtis Villagomez MD Nov 02, 2018 16:24
[2018-11-02] MEDS ORDERED: Midazolam 2mg/2ml Inj IVP PRN (16:30)
--- NOTE | 2018-11-02 17:18 | Nephrology Progress Note ---
Assessment/Plan Problem List: (1) JONNATHAN (acute kidney injury) Assessment: resolving (2) Shock liver (3) Septic shock (4) Respiratory disorder with ventilator dependence Assessment - Acute Oliguric Renal Failure Cr down to 1.1 - Respiratory disorder with s/p mechanical ventilator - Septic shock , Leukocytosis resolved - Pneumonia - Liver cirrhosis - Obese - Anemia . Plan PO K as needed check dig level and adjust dig dose mag IV as needed transfused 2 units previously down on IV fluid K and Phos as needed Hemodynamic support Pulmonary support Monitor renal parameters avoid nephrotoxics as best as possible per orders discussed with RN Subjective ROS Limited/Unobtainable: No Constitutional: Reports: malaise Objective Objective Last 24 Hour Vital Signs Date Time Temp Pulse Resp B/P (MAP) Pulse Ox O2 Delivery O2 Flow Rate FiO2 11/02/18 16:31 Nasal Cannula 2.0 11/02/18 16:00 98.7 111 22 129/96 (107) 95 11/02/18 12:00 98.1 111 23 142/72 (95) 96 11/02/18 12:00 Nasal Cannula 2.0 11/02/18 08:35 108 11/02/18 08:00 97.9 107 24 142/86 (104) 96 11/02/18 08:00 Nasal Cannula 2.0 11/02/18 08:00 105 11/02/18 04:00 98.3 106 24 127/68 (87) 97 11/02/18 04:00 107 11/02/18 04:00 Nasal Cannula 2.0 11/01/18 20:00 Nasal Cannula 2.0 11/01/18 20:00 99.1 110 32 125/68 (87) 96 11/01/18 20:00 113 11/01/18 19:00 96 Nasal Cannula 2.0 28 11/01/18 19:00 Nasal Cannula 2.0 28 Intake and Output 11/01/18 11/02/18 18:59 06:59 Intake Total 300 ml 240 ml Output Total 800 ml 550 ml Balance -500 ml -310 ml Intake Oral 300 ml 240 ml Output Urine Total 750 ml 500 ml Stool Total 50 ml 50 ml Laboratory Tests 11/02/18 04:00: White Blood Count 11.6H, Red Blood Count 2.88L, Hemoglobin 8.7L, Hematocrit 28.1L, Mean Corpuscular Volume 98, Mean Corpuscular Hemoglobin 30.2, Mean Corpuscular Hemoglobin Concent 30.9L, Red Cell Distribution Width 23.7H, Platelet Count 74L, Mean Platelet Volume 6.2L, Neutrophils (%) (Auto) , Lymphocytes (%) (Auto) , Monocytes (%) (Auto) , Eosinophils (%) (Auto) , Basophils (%) (Auto) , Sodium Level 144, Potassium Level 3.5, Chloride Level 107 , Carbon Dioxide Level 29, Anion Gap 8, Blood Urea Nitrogen 16, Creatinine 1.6H , Estimat Glomerular Filtration Rate 33.1, Glucose Level 154H, Calcium Level 9.1 , Total Bilirubin 9.2H, Direct Bilirubin 7.2H, Aspartate Amino Transf (AST/SGOT ) 105H, Alanine Aminotransferase (ALT/SGPT) 68, Alkaline Phosphatase 347H, Total Protein 6.1L, Albumin 2.0L, Globulin 4.1, Albumin/Globulin Ratio 0.5L, Digoxin Level 0.6L Height (Feet): 5 Height (Inches): 1.00 Weight (Pounds): 236 General Appearance: no apparent distress Cardiovascular: tachycardia Respiratory/Chest: decreased breath sounds Abdomen: distended Objective NO CHANGE Alex Cueto MD Nov 02, 2018 17:18
--- NOTE | 2018-11-02 18:31 | NUR ---
CASE MANAGEMENT: REVIEW 11/02/2018 SI:SYNCOPE. T 98.7 HR 111 RR 22 B/P 129/96 SATS 95% ON 2L/NC WBC 11.6 CR 1.6 GLU 154 TBILI 9.2 DBILI 7.2 AST 105 ALP 347 IS:LACTULOSE PO Q8H CIPRO PO Q12H RIFAXIMIN PO Q12H LASIX IV QD PROTONIX PO QD ALDACTONE PO QD INSULIN ASPART SUBQ AC/HS TELE STATUS
[2018-11-02 20:00] VITALS: BP 134/61
--- NOTE | 2018-11-02 20:24 | NUR ---
HAND-OFF: Report given to Michelle Crow.
--- NOTE | 2018-11-02 21:30 | Pulmonology Progress Note ---
Assessment/Plan Assessment/Plan Pulmonary Progress Note Assessment/Plan ASSESSMENT: The patient is a 58-year-old female with a history of obesity, diabetes, hypertension, hyperlipidemia, and sciatica with chronic low back pain , DDD/DJD, presenting after a mechanical fall with altered mental status and confusion with likely sepsis and multisystem organ failure. PROBLEM LIST: 1. VDRF, EXTUBATED 10/16/18 2. Sepsis 3. Shock, hypovolemic and distributive. 4. Multisystem organ failure. 5. Lactic acidosis. 6. Anion gap metabolic acidosis. 7. JONNATHAN - BETTER 7. Abnormal LFTs, likely shock liver. 8. Abnormal troponin, likely demand ischemia. 9. Elevated D-dimer and PASP concerning for an acute PE 10. Obesity. 11. Diabetes. 12. Hypertension. 13. Chronic low back pain and sciatica. 14. Anemia/FOBT + 15. Thrombocytopenia 16. AFcRVR now in NSR 17. HyperNa 18. Herpes labialis TREATMENT PLAN: 1. Optimize pulmonary hygiene/mobilize as tolerated 2. Titrate down FiO2 to keep SaO2 < 90% 3. Abx per ID (now on PO Cipro) 5. PO Lasix and Aldactone 6. SSI, monitor BS 7. Follow up cards recs 8. GI and surgery recs, ---> [facility] 9. DVT prophylaxis: SCD 10. FC, discuss GOC, consider palliative care eval Subjective Allergies: Coded Allergies: No Known Allergies (Unverified , 05/06/18) Subjective AFVSS O2 needs stable no cough no SOB no FC Plan to transfer to liver tx center Objective Vital Signs Noted General Appearance: no acute distress, other - icteric sclera HEENT: normocephalic, atraumatic, mucous membranes moist, other - icteric sclera Respiratory/Chest: chest wall non-tender, lungs clear, normal breath sounds, no respiratory distress Cardiovascular: normal peripheral pulses, normal rate, regular rhythm Abdomen: normal bowel sounds, soft, non tender, no organomegaly, non distended , no mass Extremities: no cyanosis, no clubbing, other - 2+ edema Microbiology Date/Time Source Procedure Growth Status 10/29/18 16:50 Indwelling Cath Urine Culture - Final Escherichia Coli Complete Laboratory Tests 11/01/18 03:45: White Blood Count 11.2H, Red Blood Count 2.65L, Hemoglobin 8.2L, Hematocrit 25.6L, Mean Corpuscular Volume 97, Mean Corpuscular Hemoglobin 31.0, Mean Corpuscular Hemoglobin Concent 32.1, Red Cell Distribution Width 22.8H, Platelet Count 61L, Mean Platelet Volume 5.9L, Neutrophils (%) (Auto) , Lymphocytes (%) (Auto) , Monocytes (%) (Auto) , Eosinophils (%) (Auto) , Basophils (%) (Auto) , Sodium Level 143, Potassium Level 3.7, Chloride Level 106 , Carbon Dioxide Level 28, Anion Gap 9, Blood Urea Nitrogen 18, Creatinine 1.6H , Estimat Glomerular Filtration Rate 33.1, Glucose Level 169H, Calcium Level 9.1 , Total Bilirubin 9.4H, Direct Bilirubin 7.1H, Aspartate Amino Transf (AST/SGOT ) 101H, Alanine Aminotransferase (ALT/SGPT) 63, Alkaline Phosphatase 337H, Ammonia 84H, Total Protein 5.8L, Albumin 2.0L, Globulin 3.8, Albumin/Globulin Ratio 0.5L Current Medications Medications (Trade) Dose Ordered Sig/Patricia Route PRN Reason Start Time Stop Time Status Last Admin Dose Admin Albuterol/ Ipratropium (Albuterol/ Ipratropium) 3 ml Q6H PRN HHN shortness of breath 10/29/18 17:30 11/03/18 17:29 Chlorhexidine Gluconate (Nguyen-Hex 2%) 1 applic DAILY@1999 TOPIC 10/17/18 20:00 11/09/18 19:59 10/31/18 20:34 Ciprofloxacin (Cipro 250mg tab) 250 mg EVERY 12 HOURS ORAL 11/01/18 21:00 11/08/18 20:59 Dextrose (Dextrose 50%) 25 ml Q30M PRN IV Hypoglycemia 10/17/18 14:45 11/10/18 13:44 Dextrose (Dextrose 50%) 50 ml Q30M PRN IV Hypoglycemia 10/17/18 14:45 11/10/18 13:44 Digoxin (Lanoxin) 0.125 mg QOD NG 10/19/18 09:00 11/15/18 08:59 10/31/18 09:08 Diphenhydramine HCl (Benadryl) 25 mg Q6H PRN IVP Itching 10/17/18 14:30 11/08/18 14:29 11/01/18 08:57 Furosemide (Lasix) 40 mg DAILY ORAL 10/29/18 09:00 11/28/18 08:59 11/01/18 08:56 Insulin Aspart (NovoLOG) BEFORE MEALS AND HS SUBQ 10/17/18 16:30 11/10/18 16:29 11/01/18 12:25 Lactulose (Cephulac) 30 gm EVERY 8 HOURS ORAL 10/31/18 14:00 11/12/18 17:59 11/01/18 05:41 Midazolam HCl (Versed 2mg/2ml vial) 1 mg Q2H PRN IVP For Anxiety 10/17/18 14:30 11/11/18 14:29 Morphine Sulfate (Morphine Sulfate) 2 mg Q4H PRN IVP For Pain 10/31/18 18:15 11/07/18 18:14 10/31/18 18:34 Pantoprazole (Protonix) 40 mg EVERY 12 HOURS ORAL 10/28/18 21:00 11/27/18 20:59 11/01/18 08:56 Phytonadione 1 mg/ Dextrose 55.5 ml @ 222 mls/hr ONCE ONCE IVPB 11/01/18 13:00 11/01/18 13:14 Rifaximin (Xifaxan) 550 mg EVERY 12 HOURS ORAL 10/27/18 09:00 11/10/18 08:59 11/01/18 08:57 Spironolactone (Aldactone) 100 mg DAILY ORAL 10/27/18 09:00 11/22/18 09:44 11/01/18 08:56 Subjective ROS Limited/Unobtainable: No Allergies: Coded Allergies: No Known Allergies (Unverified , 05/06/18) Objective Last 24 Hour Vital Signs Date Time Temp Pulse Resp B/P (MAP) Pulse Ox O2 Delivery O2 Flow Rate FiO2 11/02/18 18:54 108 11/02/18 18:14 111 11/02/18 16:31 Nasal Cannula 2.0 11/02/18 16:00 98.7 111 22 129/96 (107) 95 11/02/18 12:09 111 11/02/18 12:00 98.1 111 23 142/72 (95) 96 11/02/18 12:00 Nasal Cannula 2.0 11/02/18 08:35 108 11/02/18 08:00 97.9 107 24 142/86 (104) 96 11/02/18 08:00 Nasal Cannula 2.0 11/02/18 08:00 105 11/02/18 04:00 98.3 106 24 127/68 (87) 97 11/02/18 04:00 107 11/02/18 04:00 Nasal Cannula 2.0 Intake and Output 11/01/18 11/02/18 18:59 06:59 Intake Total 300 ml 240 ml Output Total 800 ml 550 ml Balance -500 ml -310 ml Intake Oral 300 ml 240 ml Output Urine Total 750 ml 500 ml Stool Total 50 ml 50 ml Laboratory Tests 11/02/18 04:00: White Blood Count 11.6H, Red Blood Count 2.88L, Hemoglobin 8.7L, Hematocrit 28.1L, Mean Corpuscular Volume 98, Mean Corpuscular Hemoglobin 30.2, Mean Corpuscular Hemoglobin Concent 30.9L, Red Cell Distribution Width 23.7H, Platelet Count 74L, Mean Platelet Volume 6.2L, Neutrophils (%) (Auto) , Lymphocytes (%) (Auto) , Monocytes (%) (Auto) , Eosinophils (%) (Auto) , Basophils (%) (Auto) , Sodium Level 144, Potassium Level 3.5, Chloride Level 107 , Carbon Dioxide Level 29, Anion Gap 8, Blood Urea Nitrogen 16, Creatinine 1.6H , Estimat Glomerular Filtration Rate 33.1, Glucose Level 154H, Calcium Level 9.1 , Total Bilirubin 9.2H, Direct Bilirubin 7.2H, Aspartate Amino Transf (AST/SGOT ) 105H, Alanine Aminotransferase (ALT/SGPT) 68, Alkaline Phosphatase 347H, Total Protein 6.1L, Albumin 2.0L, Globulin 4.1, Albumin/Globulin Ratio 0.5L, Digoxin Level 0.6L Current Medications Medications (Trade) Dose Ordered Sig/Patricia Route PRN Reason Start Time Stop Time Status Last Admin Dose Admin Albuterol/ Ipratropium (Albuterol/ Ipratropium) 3 ml Q6H PRN HHN shortness of breath 11/02/18 16:00 11/03/18 15:59 Chlorhexidine Gluconate (Nguyen-Hex 2%) 1 applic DAILY@1999 TOPIC 11/02/18 20:00 11/09/18 19:59 Ciprofloxacin (Cipro 250mg tab) 250 mg EVERY 12 HOURS ORAL 11/02/18 21:00 11/08/18 20:59 Dextrose (Dextrose 50%) 25 ml Q30M PRN IV Hypoglycemia 11/02/18 15:15 11/10/18 13:44 Dextrose (Dextrose 50%) 50 ml Q30M PRN IV Hypoglycemia 11/02/18 15:15 11/10/18 13:44 Digoxin (Lanoxin) 0.125 mg DAILY NG 11/03/18 09:00 11/15/18 08:59 Diphenhydramine HCl (Benadryl) 25 mg Q6H PRN IVP Itching 11/02/18 16:00 11/08/18 15:59 Furosemide (Lasix) 20 mg DAILY IV 11/03/18 09:00 12/03/18 08:59 Insulin Aspart (NovoLOG) BEFORE MEALS AND HS SUBQ 11/02/18 16:30 11/10/18 16:29 11/02/18 16:36 Lactulose (Cephulac) 30 gm EVERY 8 HOURS ORAL 11/02/18 22:00 11/12/18 17:59 Midazolam HCl (Versed 2mg/2ml vial) 1 mg Q2H PRN IVP For Anxiety 11/02/18 16:30 11/11/18 14:29 Morphine Sulfate (Morphine Sulfate) 2 mg Q4H PRN IVP For Pain 11/02/18 16:00 11/07/18 15:59 Ondansetron HCl (Zofran) 4 mg Q6H PRN IVP Nausea & Vomiting 11/02/18 15:48 12/02/18 15:47 11/02/18 16:12 Pantoprazole (Protonix) 40 mg DAILY ORAL 11/03/18 09:00 11/27/18 20:59 Rifaximin (Xifaxan) 550 mg EVERY 12 HOURS ORAL 11/02/18 21:00 11/10/18 08:59 Spironolactone (Aldactone) 100 mg DAILY ORAL 11/03/18 09:00 11/22/18 09:44 Vishnu Jurado MD Nov 02, 2018 21:30
--- NOTE | 2018-11-02 21:50 | General Progress Note ---
Assessment/Plan Problem List: (1) Hypotension ICD Codes: I95.9 - Hypotension, unspecified SNOMED: 81358371 (2) Hyperglycemia ICD Codes: R73.9 - Hyperglycemia, unspecified SNOMED: 07279951 (3) Dyspnea ICD Codes: R06.00 - Dyspnea, unspecified SNOMED: 042195577 (4) Hypoxemia ICD Codes: R09.02 - Hypoxemia SNOMED: 178026175 (5) Contusion of left knee ICD Codes: S80.02XA - Contusion of left knee, initial encounter SNOMED: 98003675 (6) Sepsis ICD Codes: A41.9 - Sepsis, unspecified organism SNOMED: 11406739 (7) Septic shock ICD Codes: A41.9 - Sepsis, unspecified organism; R65.21 - Severe sepsis with septic shock SNOMED: 52550143 (8) Liver cirrhosis ICD Codes: K74.60 - Unspecified cirrhosis of liver SNOMED: 58827692 (9) Pneumonia ICD Codes: J18.9 - Pneumonia, unspecified organism SNOMED: 063923060 (10) Respiratory disorder with ventilator dependence ICD Codes: J98.9 - Respiratory disorder, unspecified; Z99.11 - Dependence on respirator [ventilator] status SNOMED: 07936409, 877155284 (11) Shock liver ICD Codes: K72.00 - Acute and subacute hepatic failure without coma SNOMED: 602267194 Status: progressing Assessment/Plan waxing and waning mental status hepatic encephalopathy elevated lft edema cihrrosis Subjective ROS Limited/Unobtainable: Yes Allergies: Coded Allergies: No Known Allergies (Unverified , 05/06/18) Objective Last 24 Hour Vital Signs Date Time Temp Pulse Resp B/P (MAP) Pulse Ox O2 Delivery O2 Flow Rate FiO2 11/02/18 20:28 Nasal Cannula 2.0 28 11/02/18 20:28 97 Nasal Cannula 2.0 28 11/02/18 20:28 108 22 Nasal Cannula 2.0 28 11/02/18 18:54 108 11/02/18 18:14 111 11/02/18 16:31 Nasal Cannula 2.0 11/02/18 16:00 98.7 111 22 129/96 (107) 95 11/02/18 12:09 111 11/02/18 12:00 98.1 111 23 142/72 (95) 96 11/02/18 12:00 Nasal Cannula 2.0 11/02/18 08:35 108 11/02/18 08:00 97.9 107 24 142/86 (104) 96 11/02/18 08:00 Nasal Cannula 2.0 11/02/18 08:00 105 11/02/18 04:00 98.3 106 24 127/68 (87) 97 11/02/18 04:00 107 11/02/18 04:00 Nasal Cannula 2.0 Intake and Output 11/01/18 11/02/18 19:00 07:00 Intake Total 300 ml 240 ml Output Total 800 ml 550 ml Balance -500 ml -310 ml Intake Oral 300 ml 240 ml Output Urine Total 750 ml 500 ml Stool Total 50 ml 50 ml Laboratory Tests 11/02/18 04:00: White Blood Count 11.6H, Red Blood Count 2.88L, Hemoglobin 8.7L, Hematocrit 28.1L, Mean Corpuscular Volume 98, Mean Corpuscular Hemoglobin 30.2, Mean Corpuscular Hemoglobin Concent 30.9L, Red Cell Distribution Width 23.7H, Platelet Count 74L, Mean Platelet Volume 6.2L, Neutrophils (%) (Auto) , Lymphocytes (%) (Auto) , Monocytes (%) (Auto) , Eosinophils (%) (Auto) , Basophils (%) (Auto) , Sodium Level 144, Potassium Level 3.5, Chloride Level 107 , Carbon Dioxide Level 29, Anion Gap 8, Blood Urea Nitrogen 16, Creatinine 1.6H , Estimat Glomerular Filtration Rate 33.1, Glucose Level 154H, Calcium Level 9.1 , Total Bilirubin 9.2H, Direct Bilirubin 7.2H, Aspartate Amino Transf (AST/SGOT ) 105H, Alanine Aminotransferase (ALT/SGPT) 68, Alkaline Phosphatase 347H, Total Protein 6.1L, Albumin 2.0L, Globulin 4.1, Albumin/Globulin Ratio 0.5L, Digoxin Level 0.6L Height (Feet): 5 Height (Inches): 1.00 Weight (Pounds): 236 Neck: supple Cardiovascular: normal rate Respiratory/Chest: lungs clear Abdomen: soft Michael Kelley MD Nov 02, 2018 21:50
[2018-11-02] MEDS: Dyna-Hex 2% Top Sol 2oz TOPIC SCH (21:51)
[2018-11-03] VITALS: BP 127/69
--- NOTE | 2018-11-03 00:19 | Cardiology Report ---
APPROVED REPORT EKG Measurement Heart [id number] ID [id number] Normal sinus rhythm Low voltage QRS Borderline ECG
[2018-11-03 04:00] VITALS: BP 129/71
[2018-11-03] MEDS: Lactulose 20gm/30ml UDC ORAL SCH ×3 (05:56→20:59)
[2018-11-03] MEDS: NovoLOG Insulin Flexpen SUBQ SCH ×4 (06:06→20:55)
--- NOTE | 2018-11-03 07:19 | NUR ---
HAND-OFF: Report given to KARI Barbosa.
--- NOTE | 2018-11-03 07:20 | NUR ---
NURSE NOTES: I received the patient awake and resting in bed. Patient verbal and alert and oriented x3. Patient does not display any signs of distress or SOB. Bed in the lowest position and call light within reach. I will continue to monitor the patient and implement care.
[2018-11-03 08:00] VITALS: BP 124/57
--- NOTE | 2018-11-03 08:10 | NUR ---
NURSE NOTES: Report received from KARI Barbosa. Patient awake. Vincentian speaker. Family speaks Algerian and is at bedside. Patient in 2L NC. Denies SOB or pain. Patient not able to lift both her arms more than 10cms. Family confirmed she had a weakness. Patient able to lift both legs up. bilateral lower extremities 4+ edema. IV PICC on Left upper arm, dressing changed on 10/29, dry and intact. Bed on lowest position, side rails upx2, brakes engaged. Call light within easy reach.
[2018-11-03] MEDS ORDERED: Digoxin 0.125mg tab NG SCH (09:00)
[2018-11-03 09:09] LABS: HEMATOCRIT 26.1 % (37.0-47.0); HEMOGLOBIN 8.3 G/DL (12.0-16.0); MEAN CORPUSCULAR VOLUME 96 FL (80-99); PLATELET COUNT 92 K/UL (150-450); RED BLOOD COUNT 2.71 M/UL (4.20-5.40); RED CELL DISTRIBUTION WIDTH 23.2 % (11.6-14.8); WHITE BLOOD COUNT 12.3 K/UL (4.8-10.8)
[2018-11-03 09:18] LABS: ALANINE AMINOTRANSFERASE 59 U/L (12-78); ALBUMIN 2.3 G/DL (3.4-5.0); ALBUMIN/GLOBULIN RATIO 0.6 (1.0-2.7); ALKALINE PHOSPHATASE 335 U/L (46-116); ANION GAP 9 mmol/L (5-15); ASPARTATE AMINO TRANSFERASE 108 U/L (15-37); BILIRUBIN,TOTAL 10.3 MG/DL (0.2-1.0); BLOOD UREA NITROGEN 16 mg/dL (7-18); CALCIUM 9.6 MG/DL (8.5-10.1); CARBON DIOXIDE 28 MMOL/L (21-32); CHLORIDE 105 MMOL/L (98-107); CREATININE 1.8 MG/DL (0.55-1.30); POTASSIUM 3.6 MMOL/L (3.5-5.1); SODIUM 142 MMOL/L (136-145)
[2018-11-03] MEDS: Spironolactone 50mg tab ORAL SCH (09:29)
[2018-11-03 09:30] LABS: AMMONIA 109 umol/L (11-32)
[2018-11-03 10:23] LABS: BILIRUBIN,DIRECT 7.8 MG/DL (0.0-0.3)
[2018-11-03 12:00] VITALS: BP 119/70
--- NOTE | 2018-11-03 13:32 | General Progress Note ---
Assessment/Plan Assessment/Plan # Leukocytosis/elevated white blood cell count, unspecified likely related to underlying stress reaction, or underlying infection --> have reviewed peripheral smear and bandemia/neutrophilia noted --> continue antibiotics if they have been started by ID team (currently theu have been stopped) --> monitor for resolution --> WBC trend: 14-->10-->15-->12-->11-->10-->8.6-->8.1-->10-->12.3 # Thrombocytopenia - potential causes multifactorial but most likely contributor is cirrhosis, that is chronic, elevated bili with ascites --> Hep panel and HIV negative --> CT a/p show cirrhosis as well as us --> Peripheral smear ordered to evaluate for blasts /schistocytes is negative --> abx and other meds have been reviewed --> ok for ppx if plt >50k w/ either heparin or lovenox --> Transfuse if Plt < 20k and fever, or if Plt < 10k without fever --> HIT negative, hold off heparin --> Plt trend : 54-->92-->106-->113-->62-->61-->61k-->74k-->92k --> awaiting transfer to higher level of care for transplant of the liver # Anemia of iron deficiency as noted with low % sat and tibc elevated --> Anemia workup has been reviewed --> No evidence of hemolysis is noted, peripheral smear has been reviewed. --> Hgb goal >7. Transfuse prn. --> Iron IV X 5 days already given --> Medications have been reviewed # CEA of 10.5 --> Ct of abdomen/pelvis reviewed and is negative --> as per gi recs --> scope as needed # Sepsis likely contributing to low plts --> on abx as needed # Shock, hypovolemic and distributive --> per id and pulm/cc care # Multisystem organ failure. # Lactic acidosis. # JONNATHAN. # Abnormal LFTs, likely shock liver. # Abnormal troponin, likely demand ischemia. # Obesity. # Respiratory failure on vent --> now extubated # Afib on meds as per cards The timing of this note does not necessarily reflect the time of the patient was seen. Greatly appreciate consultation! Subjective HEENT: Denies: no symptoms, eye pain, blurred vision, tearing, double vision, ear pain, ear discharge, nose pain, nose congestion, throat pain, throat swelling, mouth pain, mouth swelling, other Respiratory: Denies: no symptoms, cough, orthopnea, shortness of breath, SOB with excertion, SOB at rest, sputum, stridor, wheezing, other Gastrointestinal/Abdominal: Denies: no symptoms, abdomen distended, abdominal pain, black stools, tarry stools, blood in stool, constipated, diarrhea, difficulty swallowing, nausea, poor appetite, poor fluid intake, rectal bleeding , vomiting, other Genitourinary: Denies: no symptoms, burning, discharge, frequency, flank pain, hematuria, incontinence, pain, urgency, other Neurologic/Psychiatric: Denies: no symptoms, anxiety, depressed, emotional problems, headache, numbness, paresthesia, pre-existing deficit, seizure, tingling, tremors, weakness, other Endocrine: Denies: no symptoms, excessive sweating, flushing, intolerance to cold, intolerance to heat, increased hunger, increased thirst, increased urine, unexplained weight gain, unexplained weight loss, other Hematologic/Lymphatic: Denies: no symptoms, anemia, easy bleeding, easy bruising, other Allergies: Coded Allergies: No Known Allergies (Unverified , 05/06/18) Subjective 3: Pt was seen in ICU on Vent and off pressors, developed atrial fib, wbc trending down to 13, plt trending down to 60 3: remains in the icu, monitoring labs, plts stabilizing, remains critically ill, cea elev 10/15: In ICU on Vent and off pressors, plt 62, no events 10/16 wbc trending up at 14,plt low at 48,weaning well from vent. no acute events , family at bedside 10/17: plts remain low, no events, weaned off vent, no complaints, off pressors 10/18: seen by bedside, wbc trending up at 15, plt low at 50, no events, needs video swallow. NGT 10/19: wbc remains elevated, plt 54, no acute distress reported 10/21: seen by bedside, still with lots of NG tube output, wbc 12, plt trending up 10/22: awake, alert,has high NG tube residual, wbc 11, no events 12: comfortable, wbc trending down, plt trending up , no events 3: Seen by bedside, leukocytosis resolved, no events 10/25: awake, comfortable, Surgery removed NGT, no events 3.15: NG tube was removed yesterday and patient started on diet, comfortable, no events, plt trending up 3: seen by bedside, lethargic, no events 10/29: remains extubated, cbc reviewed, bili remains elevated, lethargic, on abx 10/30: awake, tolerating some diet, no events, plt trending down 10/31: No overnight events reported, awake and comfortable. 11/01: awaiting transfer to higher level of care for transplant, no other events 11/02: transferred to [facility], checking dig level, awaiting transfer to [facility] 11/03: no events, in bed sleeping this am, without complaints Objective Last 24 Hour Vital Signs Date Time Temp Pulse Resp B/P (MAP) Pulse Ox O2 Delivery O2 Flow Rate FiO2 11/03/18 12:00 98.4 105 20 119/70 (86) 96 11/03/18 09:31 111 11/03/18 08:45 97 Nasal Cannula 2.0 28 11/03/18 08:45 Nasal Cannula 2.0 28 11/03/18 08:45 96 20 Nasal Cannula 2.0 28 11/03/18 08:00 109 11/03/18 08:00 98.2 111 20 124/57 (79) 98 11/03/18 04:00 104 11/03/18 04:00 98.0 109 17 129/71 (90) 98 11/03/18 04:00 Nasal Cannula 2.0 11/03/18 00:00 98.2 109 19 127/69 (88) 98 11/03/18 00:00 Nasal Cannula 2.0 11/02/18 20:28 Nasal Cannula 2.0 28 11/02/18 20:28 97 Nasal Cannula 2.0 28 11/02/18 20:28 108 22 Nasal Cannula 2.0 28 11/02/18 20:00 Nasal Cannula 2.0 11/02/18 20:00 98.5 110 19 134/61 (85) 98 11/02/18 20:00 110 11/02/18 18:54 108 11/02/18 18:14 111 3/22/19 16:31 Nasal Cannula 2.0 11/02/18 16:00 98.7 111 22 129/96 (107) 95 Intake and Output 11/02/18 11/03/18 19:00 07:00 Intake Total 150 ml Output Total 550 ml 350 ml Balance -400 ml -350 ml Intake Oral 150 ml Output Urine Total 550 ml 350 ml Laboratory Tests 11/03/18 09:00: White Blood Count 12.3H, Red Blood Count 2.71L, Hemoglobin 8.3L, Hematocrit 26.1L, Mean Corpuscular Volume 96, Mean Corpuscular Hemoglobin 30.6, Mean Corpuscular Hemoglobin Concent 31.8L, Red Cell Distribution Width 23.2H, Platelet Count 92L, Mean Platelet Volume 6.5, Neutrophils (%) (Auto) , Lymphocytes (%) (Auto) , Monocytes (%) (Auto) , Eosinophils (%) (Auto) , Basophils (%) (Auto) , Differential Total Cells Counted 100, Neutrophils % ( Manual) 77H, Lymphocytes % (Manual) 13L, Monocytes % (Manual) 7, Eosinophils % ( Manual) 3, Basophils % (Manual) 0, Band Neutrophils 0, Platelet Estimate DecreasedL, Platelet Morphology Normal, Polychromasia 1+, Hypochromasia 2+, Anisocytosis 3+, Stomatocytes Rare, Sodium Level 142, Potassium Level 3.6, Chloride Level 105, Carbon Dioxide Level 28, Anion Gap 9, Blood Urea Nitrogen 16 , Creatinine 1.8H, Estimat Glomerular Filtration Rate 28.9, Glucose Level 175H, Calcium Level 9.6, Total Bilirubin 10.3H, Direct Bilirubin 7.8H, Aspartate Amino Transf (AST/SGOT) 108H, Alanine Aminotransferase (ALT/SGPT) 59, Alkaline Phosphatase 335H, Ammonia 109H, Total Protein 6.0L, Albumin 2.3L, Globulin 3.7, Albumin/Globulin Ratio 0.6L Height (Feet): 5 Height (Inches): 1.00 Weight (Pounds): 237 Cardiovascular: regular rhythm Respiratory/Chest: no respiratory distress Abdomen: no mass Objective PHYSICAL EXAMINATION: VITAL SIGNS: reviewed, saturating 98% on NC++, GENERAL: She is an obese female, confused. HEENT: Normocephalic and atraumatic. Oropharynx is clear with dry mucous membranes., NECK: Supple without lymphadenopathy or JVP. CHEST: Clear. HEART: Regular. ABDOMEN: Benign. EXTREMITIES: No cyanosis, clubbing, or edema. There are some ecchymoses Kurtis Villagomez MD Nov 03, 2018 13:32
--- NOTE | 2018-11-03 14:06 | Nephrology Progress Note ---
Assessment/Plan Problem List: (1) JONNATHAN (acute kidney injury) Assessment: Cr 1.8 (2) Shock liver (3) Septic shock (4) Respiratory disorder with ventilator dependence (5) Jaundice Assessment - Acute Oliguric Renal Failure Cr down to 1.1 - Respiratory disorder with s/p mechanical ventilator - Septic shock , Leukocytosis resolved - Pneumonia - Liver cirrhosis - Obese - Anemia . Plan PO K as needed check dig level and adjust dig dose transfused 2 units previously K and Phos as needed mag IV as needed Hemodynamic support Pulmonary support Monitor renal parameters avoid nephrotoxics as best as possible per orders discussed with RN Subjective ROS Limited/Unobtainable: No Constitutional: Reports: malaise Objective Objective Last 24 Hour Vital Signs Date Time Temp Pulse Resp B/P (MAP) Pulse Ox O2 Delivery O2 Flow Rate FiO2 11/03/18 12:00 98.4 105 20 119/70 (86) 96 11/03/18 09:31 111 11/03/18 08:45 97 Nasal Cannula 2.0 28 11/03/18 08:45 Nasal Cannula 2.0 28 11/03/18 08:45 96 20 Nasal Cannula 2.0 28 11/03/18 08:00 109 11/03/18 08:00 98.2 111 20 124/57 (79) 98 11/03/18 04:00 104 11/03/18 04:00 98.0 109 17 129/71 (90) 98 11/03/18 04:00 Nasal Cannula 2.0 11/03/18 00:00 98.2 109 19 127/69 (88) 98 11/03/18 00:00 Nasal Cannula 2.0 11/02/18 20:28 Nasal Cannula 2.0 28 11/02/18 20:28 97 Nasal Cannula 2.0 28 11/02/18 20:28 108 22 Nasal Cannula 2.0 28 11/02/18 20:00 Nasal Cannula 2.0 11/02/18 20:00 98.5 110 19 134/61 (85) 98 11/02/18 20:00 110 11/02/18 18:54 108 11/02/18 18:14 111 11/02/18 16:31 Nasal Cannula 2.0 11/02/18 16:00 98.7 111 22 129/96 (107) 95 Intake and Output 11/02/18 11/03/18 19:00 07:00 Intake Total 150 ml Output Total 550 ml 350 ml Balance -400 ml -350 ml Intake Oral 150 ml Output Urine Total 550 ml 350 ml Laboratory Tests 11/03/18 09:00: White Blood Count 12.3H, Red Blood Count 2.71L, Hemoglobin 8.3L, Hematocrit 26.1L, Mean Corpuscular Volume 96, Mean Corpuscular Hemoglobin 30.6, Mean Corpuscular Hemoglobin Concent 31.8L, Red Cell Distribution Width 23.2H, Platelet Count 92L, Mean Platelet Volume 6.5, Neutrophils (%) (Auto) , Lymphocytes (%) (Auto) , Monocytes (%) (Auto) , Eosinophils (%) (Auto) , Basophils (%) (Auto) , Differential Total Cells Counted 100, Neutrophils % ( Manual) 77H, Lymphocytes % (Manual) 13L, Monocytes % (Manual) 7, Eosinophils % ( Manual) 3, Basophils % (Manual) 0, Band Neutrophils 0, Platelet Estimate DecreasedL, Platelet Morphology Normal, Polychromasia 1+, Hypochromasia 2+, Anisocytosis 3+, Stomatocytes Rare, Sodium Level 142, Potassium Level 3.6, Chloride Level 105, Carbon Dioxide Level 28, Anion Gap 9, Blood Urea Nitrogen 16 , Creatinine 1.8H, Estimat Glomerular Filtration Rate 28.9, Glucose Level 175H, Calcium Level 9.6, Total Bilirubin 10.3H, Direct Bilirubin 7.8H, Aspartate Amino Transf (AST/SGOT) 108H, Alanine Aminotransferase (ALT/SGPT) 59, Alkaline Phosphatase 335H, Ammonia 109H, Total Protein 6.0L, Albumin 2.3L, Globulin 3.7, Albumin/Globulin Ratio 0.6L Height (Feet): 5 Height (Inches): 1.00 Weight (Pounds): 237 General Appearance: no apparent distress EENT: other - jaundiced Respiratory/Chest: decreased breath sounds Abdomen: distended Objective NO CHANGE Alex Cueto MD Nov 03, 2018 14:06
[2018-11-03] MEDS ORDERED: Digoxin 0.125mg tab ORAL SCH (14:15)
[2018-11-03] MEDS ORDERED: NS 500ML ONE (15:07)
[2018-11-03] MEDS ORDERED: NS 275ml ONE (15:07)
[2018-11-03] MEDS ORDERED: D5W 275ml ONE (15:07)
[2018-11-03] MEDS ORDERED: Tubing IV Secondary IV ONE (15:07)
[2018-11-03 16:00] VITALS: BP 118/61
[2018-11-03] MEDS ORDERED: traMADol 50mg tab ORAL PRN (16:45)
--- NOTE | 2018-11-03 16:47 | General Progress Note ---
Assessment/Plan Assessment/Plan Assessment/Plan Problems: (1) Shock liver ICD Codes: K72.00 - Acute and subacute hepatic failure without coma SNOMED: 426010069 (2) Liver cirrhosis ICD Codes: K74.60 - Unspecified cirrhosis of liver SNOMED: 46183634 (3) Septic shock ICD Codes: A41.9 - Sepsis, unspecified organism; R65.21 - Severe sepsis with septic shock SNOMED: 71128401 (4) Sepsis ICD Codes: A41.9 - Sepsis, unspecified organism SNOMED: 55199105 (5) Respiratory disorder with ventilator dependence ICD Codes: J98.9 - Respiratory disorder, unspecified; Z99.11 - Dependence on respirator [ventilator] status SNOMED: 88077948, 394136826 (6) Normocytic anemia ICD Codes: D64.9 - Anemia, unspecified SNOMED: 778373330 Status: unchanged (7) Ascites and Edema Assessment/Plan d/c sedatives ultram for pain ppi monitor H&H work up for elevated CEA when more stable xifaxan and lactulose Follow labs OLT eval after d/c Subjective Allergies: Coded Allergies: No Known Allergies (Unverified , 05/06/18) Subjective debilitated woman minimally communicative family at bedside poor po Objective Last 24 Hour Vital Signs Date Time Temp Pulse Resp B/P (MAP) Pulse Ox O2 Delivery O2 Flow Rate FiO2 11/03/18 12:00 Nasal Cannula 2.0 11/03/18 12:00 98.4 105 20 119/70 (86) 96 11/03/18 12:00 110 11/03/18 09:31 111 11/03/18 08:45 97 Nasal Cannula 2.0 28 11/03/18 08:45 Nasal Cannula 2.0 28 11/03/18 08:45 96 20 Nasal Cannula 2.0 28 11/03/18 08:00 109 11/03/18 08:00 98.2 111 20 124/57 (79) 98 11/03/18 08:00 Nasal Cannula 2.0 11/03/18 04:00 104 11/03/18 04:00 98.0 109 17 129/71 (90) 98 11/03/18 04:00 Nasal Cannula 2.0 11/03/18 00:00 98.2 109 19 127/69 (88) 98 11/03/18 00:00 Nasal Cannula 2.0 11/02/18 20:28 Nasal Cannula 2.0 28 11/02/18 20:28 97 Nasal Cannula 2.0 28 11/02/18 20:28 108 22 Nasal Cannula 2.0 11/02/18 20:00 Nasal Cannula 2.0 11/02/18 20:00 98.5 110 19 134/61 (85) 98 11/02/18 20:00 110 11/02/18 18:54 108 11/02/18 18:14 111 Intake and Output 11/02/18 11/03/18 19:00 07:00 Intake Total 150 ml Output Total 550 ml 350 ml Balance -400 ml -350 ml Intake Oral 150 ml Output Urine Total 550 ml 350 ml Laboratory Tests 11/03/18 09:00: White Blood Count 12.3H, Red Blood Count 2.71L, Hemoglobin 8.3L, Hematocrit 26.1L, Mean Corpuscular Volume 96, Mean Corpuscular Hemoglobin 30.6, Mean Corpuscular Hemoglobin Concent 31.8L, Red Cell Distribution Width 23.2H, Platelet Count 92L, Mean Platelet Volume 6.5, Neutrophils (%) (Auto) , Lymphocytes (%) (Auto) , Monocytes (%) (Auto) , Eosinophils (%) (Auto) , Basophils (%) (Auto) , Differential Total Cells Counted 100, Neutrophils % ( Manual) 77H, Lymphocytes % (Manual) 13L, Monocytes % (Manual) 7, Eosinophils % ( Manual) 3, Basophils % (Manual) 0, Band Neutrophils 0, Platelet Estimate DecreasedL, Platelet Morphology Normal, Polychromasia 1+, Hypochromasia 2+, Anisocytosis 3+, Stomatocytes Rare, Sodium Level 142, Potassium Level 3.6, Chloride Level 105, Carbon Dioxide Level 28, Anion Gap 9, Blood Urea Nitrogen 16 , Creatinine 1.8H, Estimat Glomerular Filtration Rate 28.9, Glucose Level 175H, Calcium Level 9.6, Total Bilirubin 10.3H, Direct Bilirubin 7.8H, Aspartate Amino Transf (AST/SGOT) 108H, Alanine Aminotransferase (ALT/SGPT) 59, Alkaline Phosphatase 335H, Ammonia 109H, Total Protein 6.0L, Albumin 2.3L, Globulin 3.7, Albumin/Globulin Ratio 0.6L Height (Feet): 5 Height (Inches): 1.00 Weight (Pounds): 237 Objective Obese L woman sleepy NCAT, (+) icteric supple Coarse BS RR abd distended, dull to percussion (++) edema Kiah Poe MD Nov 03, 2018 16:47
--- NOTE | 2018-11-03 17:29 | Cardiac Electrophysiology PN ---
Assessment/Plan Assessment/Plan 1. Atrial fib with RVR. Off Beta janet or CA janet for hypotension. On Dig 0.125 qod. In SR Off Amiodarone for high LFTs 2. S/P Septic shock. On broad spectrum IV antibiotic. 3. Troponin leak. The levels are flat and likely due to this patient's sepsis and septic shock. Her echocardiogram showed ejection fraction 60% to 65% and EKG showed no acute ischemic changes. 4. Nonsustained VT. EF 65% 5. Diabetes. 6. Renal failure. 7. Morbid obesity. 8. Dysphagia, NG removed. Feeding started 9. S/P Respiratory failure, Extubated 10. Cirrhosis, high Bilirubin and ascites. On Lasix 20 iv daily and Aldactone 100 daily DW RN and family Subjective Subjective No events. RN and family at bedside. Transferred to tele Objective Last 24 Hour Vital Signs Date Time Temp Pulse Resp B/P (MAP) Pulse Ox O2 Delivery O2 Flow Rate FiO2 11/03/18 16:50 106 11/03/18 12:00 Nasal Cannula 2.0 11/03/18 12:00 98.4 105 20 119/70 (86) 96 11/03/18 12:00 110 11/03/18 09:31 111 11/03/18 08:45 97 Nasal Cannula 2.0 28 11/03/18 08:45 Nasal Cannula 2.0 28 11/03/18 08:45 96 20 Nasal Cannula 2.0 28 11/03/18 08:00 109 11/03/18 08:00 98.2 111 20 124/57 (79) 98 11/03/18 08:00 Nasal Cannula 2.0 11/03/18 04:00 104 11/03/18 04:00 98.0 109 17 129/71 (90) 98 11/03/18 04:00 Nasal Cannula 2.0 11/03/18 00:00 98.2 109 19 127/69 (88) 98 11/03/18 00:00 Nasal Cannula 2.0 11/02/18 20:28 Nasal Cannula 2.0 28 11/02/18 20:28 97 Nasal Cannula 2.0 28 11/02/18 20:28 108 22 Nasal Cannula 2.0 28 11/02/18 20:00 Nasal Cannula 2.0 11/02/18 20:00 98.5 110 19 134/61 (85) 98 11/02/18 20:00 110 11/02/18 18:54 108 11/02/18 18:14 111 Intake and Output 11/02/18 11/03/18 18:59 06:59 Intake Total 150 ml Output Total 550 ml 350 ml Balance -400 ml -350 ml Intake Oral 150 ml Output Urine Total 550 ml 350 ml Laboratory Tests Test 11/03/18 09:00 White Blood Count 12.3 K/UL (4.8-10.8) H Red Blood Count 2.71 M/UL (4.20-5.40) L Hemoglobin 8.3 G/DL (12.0-16.0) L Hematocrit 26.1 % (37.0-47.0) L Mean Corpuscular Volume 96 FL (80-99) Mean Corpuscular Hemoglobin 30.6 PG (27.0-31.0) Mean Corpuscular Hemoglobin Concent 31.8 G/DL (32.0-36.0) L Red Cell Distribution Width 23.2 % (11.6-14.8) H Platelet Count 92 K/UL (150-450) L Mean Platelet Volume 6.5 FL (6.5-10.1) Neutrophils (%) (Auto) % (45.0-75.0) Lymphocytes (%) (Auto) % (20.0-45.0) Monocytes (%) (Auto) % (1.0-10.0) Eosinophils (%) (Auto) % (0.0-3.0) Basophils (%) (Auto) % (0.0-2.0) Differential Total Cells Counted 100 Neutrophils % (Manual) 77 % (45-75) H Lymphocytes % (Manual) 13 % (20-45) L Monocytes % (Manual) 7 % (1-10) Eosinophils % (Manual) 3 % (0-3) Basophils % (Manual) 0 % (0-2) Band Neutrophils 0 % (0-8) Platelet Estimate Decreased L Platelet Morphology Normal Polychromasia 1+ Hypochromasia 2+ Anisocytosis 3+ Stomatocytes Rare Sodium Level 142 MMOL/L (136-145) Potassium Level 3.6 MMOL/L (3.5-5.1) Chloride Level 105 MMOL/L (98-107) Carbon Dioxide Level 28 MMOL/L (21-32) Anion Gap 9 mmol/L (5-15) Blood Urea Nitrogen 16 mg/dL (7-18) Creatinine 1.8 MG/DL (0.55-1.30) H Estimat Glomerular Filtration Rate 28.9 mL/min (>60) Glucose Level 175 MG/DL (74-106) H Calcium Level 9.6 MG/DL (8.5-10.1) Total Bilirubin 10.3 MG/DL (0.2-1.0) H Direct Bilirubin 7.8 MG/DL (0.0-0.3) H Aspartate Amino Transf (AST/SGOT) 108 U/L (15-37) H Alanine Aminotransferase (ALT/SGPT) 59 U/L (12-78) Alkaline Phosphatase 335 U/L (46-116) H Ammonia 109 umol/L (11-32) H Total Protein 6.0 G/DL (6.4-8.2) L Albumin 2.3 G/DL (3.4-5.0) L Globulin 3.7 g/dL Albumin/Globulin Ratio 0.6 (1.0-2.7) L Objective HEAD AND NECK: No JVD. LUNGS: Coarse rhonchi. CARDIOVASCULAR: Regular S1, S2 with no gallop or murmur. ABDOMEN: Obese. EXTREMITIES: No edema. Sean Montanez MD Nov 03, 2018 17:29
--- NOTE | 2018-11-03 18:09 | General Progress Note ---
Assessment/Plan Problem List: (1) Hypotension ICD Codes: I95.9 - Hypotension, unspecified SNOMED: 59778048 (2) Hyperglycemia ICD Codes: R73.9 - Hyperglycemia, unspecified SNOMED: 69599782 (3) Dyspnea ICD Codes: R06.00 - Dyspnea, unspecified SNOMED: 925666007 (4) Hypoxemia ICD Codes: R09.02 - Hypoxemia SNOMED: 022999648 (5) Contusion of left knee ICD Codes: S80.02XA - Contusion of left knee, initial encounter SNOMED: 51482331 (6) Sepsis ICD Codes: A41.9 - Sepsis, unspecified organism SNOMED: 89927197 (7) Septic shock ICD Codes: A41.9 - Sepsis, unspecified organism; R65.21 - Severe sepsis with septic shock SNOMED: 15104662 (8) Liver cirrhosis ICD Codes: K74.60 - Unspecified cirrhosis of liver SNOMED: 43868075 (9) Pneumonia ICD Codes: J18.9 - Pneumonia, unspecified organism SNOMED: 814834802 (10) Respiratory disorder with ventilator dependence ICD Codes: J98.9 - Respiratory disorder, unspecified; Z99.11 - Dependence on respirator [ventilator] status SNOMED: 13605863, 966435291 (11) Shock liver ICD Codes: K72.00 - Acute and subacute hepatic failure without coma SNOMED: 015576054 Status: unchanged Assessment/Plan waxing and waning mental status hepatic encephalopathy elevated lft edema cihrrosis very edematous third spacing nausea pitting edema fluid overload.diuresis per renal Subjective ROS Limited/Unobtainable: Yes Allergies: Coded Allergies: No Known Allergies (Unverified , 05/06/18) Objective Last 24 Hour Vital Signs Date Time Temp Pulse Resp B/P (MAP) Pulse Ox O2 Delivery O2 Flow Rate FiO2 11/03/18 16:50 106 11/03/18 16:00 Nasal Cannula 2.0 11/03/18 12:00 Nasal Cannula 2.0 11/03/18 12:00 98.4 105 20 119/70 (86) 96 11/03/18 12:00 110 11/03/18 09:31 111 11/03/18 08:45 97 Nasal Cannula 2.0 28 11/03/18 08:45 Nasal Cannula 2.0 28 11/03/18 08:45 96 20 Nasal Cannula 2.0 28 11/03/18 08:00 109 11/03/18 08:00 98.2 111 20 124/57 (79) 98 11/03/18 08:00 Nasal Cannula 2.0 11/03/18 04:00 104 11/03/18 04:00 98.0 109 17 129/71 (90) 98 11/03/18 04:00 Nasal Cannula 2.0 11/03/18 00:00 98.2 109 19 127/69 (88) 98 11/03/18 00:00 Nasal Cannula 2.0 11/02/18 20:28 Nasal Cannula 2.0 28 11/02/18 20:28 97 Nasal Cannula 2.0 28 11/02/18 20:28 108 22 Nasal Cannula 2.0 28 11/02/18 20:00 Nasal Cannula 2.0 11/02/18 20:00 98.5 110 19 134/61 (85) 98 11/02/18 20:00 110 11/02/18 18:54 108 11/02/18 18:14 111 Intake and Output 11/02/18 11/03/18 18:59 06:59 Intake Total 150 ml Output Total 550 ml 350 ml Balance -400 ml -350 ml Intake Oral 150 ml Output Urine Total 550 ml 350 ml Laboratory Tests 11/03/18 09:00: White Blood Count 12.3H, Red Blood Count 2.71L, Hemoglobin 8.3L, Hematocrit 26.1L, Mean Corpuscular Volume 96, Mean Corpuscular Hemoglobin 30.6, Mean Corpuscular Hemoglobin Concent 31.8L, Red Cell Distribution Width 23.2H, Platelet Count 92L, Mean Platelet Volume 6.5, Neutrophils (%) (Auto) , Lymphocytes (%) (Auto) , Monocytes (%) (Auto) , Eosinophils (%) (Auto) , Basophils (%) (Auto) , Differential Total Cells Counted 100, Neutrophils % ( Manual) 77H, Lymphocytes % (Manual) 13L, Monocytes % (Manual) 7, Eosinophils % ( Manual) 3, Basophils % (Manual) 0, Band Neutrophils 0, Platelet Estimate DecreasedL, Platelet Morphology Normal, Polychromasia 1+, Hypochromasia 2+, Anisocytosis 3+, Stomatocytes Rare, Sodium Level 142, Potassium Level 3.6, Chloride Level 105, Carbon Dioxide Level 28, Anion Gap 9, Blood Urea Nitrogen 16 , Creatinine 1.8H, Estimat Glomerular Filtration Rate 28.9, Glucose Level 175H, Calcium Level 9.6, Total Bilirubin 10.3H, Direct Bilirubin 7.8H, Aspartate Amino Transf (AST/SGOT) 108H, Alanine Aminotransferase (ALT/SGPT) 59, Alkaline Phosphatase 335H, Ammonia 109H, Total Protein 6.0L, Albumin 2.3L, Globulin 3.7, Albumin/Globulin Ratio 0.6L Height (Feet): 5 Height (Inches): 1.00 Weight (Pounds): 237 General Appearance: confused Neck: supple Cardiovascular: normal rate Abdomen: soft Michael Kelley MD Nov 03, 2018 18:09
--- NOTE | 2018-11-03 18:42 | Surgery Progress Note ---
Surgery Progress Note Subjective Additional Comments afebrile, tachycardic, no n/v/f/c. comfortable. no abd pain Objective Last 24 Hour Vital Signs Date Time Temp Pulse Resp B/P (MAP) Pulse Ox O2 Delivery O2 Flow Rate FiO2 11/03/18 16:50 106 11/03/18 16:00 108 11/03/18 16:00 Nasal Cannula 2.0 11/03/18 12:00 Nasal Cannula 2.0 11/03/18 12:00 98.4 105 20 119/70 (86) 96 11/03/18 12:00 110 11/03/18 09:31 111 11/03/18 08:45 97 Nasal Cannula 2.0 28 11/03/18 08:45 Nasal Cannula 2.0 28 11/03/18 08:45 96 20 Nasal Cannula 2.0 28 11/03/18 08:00 109 11/03/18 08:00 98.2 111 20 124/57 (79) 98 11/03/18 08:00 Nasal Cannula 2.0 11/03/18 04:00 104 11/03/18 04:00 98.0 109 17 129/71 (90) 98 11/03/18 04:00 Nasal Cannula 2.0 11/03/18 00:00 98.2 109 19 127/69 (88) 98 11/03/18 00:00 Nasal Cannula 2.0 11/02/18 20:28 Nasal Cannula 2.0 28 11/02/18 20:28 97 Nasal Cannula 2.0 28 11/02/18 20:28 108 22 Nasal Cannula 2.0 28 11/02/18 20:00 Nasal Cannula 2.0 11/02/18 20:00 98.5 110 19 134/61 (85) 98 11/02/18 20:00 110 11/02/18 18:54 108 I&O Intake and Output 11/02/18 11/03/18 19:00 07:00 Intake Total 150 ml Output Total 550 ml 350 ml Balance -400 ml -350 ml Intake Oral 150 ml Output Urine Total 550 ml 350 ml Drains: other Cardiovascular: RSR Respiratory: decreased breath sounds Abdomen: soft, non-tender, present bowel sounds, other, non-distended Extremities: no cyanosis Laboratory Tests Test 11/03/18 09:00 White Blood Count 12.3 K/UL (4.8-10.8) H Red Blood Count 2.71 M/UL (4.20-5.40) L Hemoglobin 8.3 G/DL (12.0-16.0) L Hematocrit 26.1 % (37.0-47.0) L Mean Corpuscular Volume 96 FL (80-99) Mean Corpuscular Hemoglobin 30.6 PG (27.0-31.0) Mean Corpuscular Hemoglobin Concent 31.8 G/DL (32.0-36.0) L Red Cell Distribution Width 23.2 % (11.6-14.8) H Platelet Count 92 K/UL (150-450) L Mean Platelet Volume 6.5 FL (6.5-10.1) Neutrophils (%) (Auto) % (45.0-75.0) Lymphocytes (%) (Auto) % (20.0-45.0) Monocytes (%) (Auto) % (1.0-10.0) Eosinophils (%) (Auto) % (0.0-3.0) Basophils (%) (Auto) % (0.0-2.0) Differential Total Cells Counted 100 Neutrophils % (Manual) 77 % (45-75) H Lymphocytes % (Manual) 13 % (20-45) L Monocytes % (Manual) 7 % (1-10) Eosinophils % (Manual) 3 % (0-3) Basophils % (Manual) 0 % (0-2) Band Neutrophils 0 % (0-8) Platelet Estimate Decreased L Platelet Morphology Normal Polychromasia 1+ Hypochromasia 2+ Anisocytosis 3+ Stomatocytes Rare Sodium Level 142 MMOL/L (136-145) Potassium Level 3.6 MMOL/L (3.5-5.1) Chloride Level 105 MMOL/L (98-107) Carbon Dioxide Level 28 MMOL/L (21-32) Anion Gap 9 mmol/L (5-15) Blood Urea Nitrogen 16 mg/dL (7-18) Creatinine 1.8 MG/DL (0.55-1.30) H Estimat Glomerular Filtration Rate 28.9 mL/min (>60) Glucose Level 175 MG/DL (74-106) H Calcium Level 9.6 MG/DL (8.5-10.1) Total Bilirubin 10.3 MG/DL (0.2-1.0) H Direct Bilirubin 7.8 MG/DL (0.0-0.3) H Aspartate Amino Transf (AST/SGOT) 108 U/L (15-37) H Alanine Aminotransferase (ALT/SGPT) 59 U/L (12-78) Alkaline Phosphatase 335 U/L (46-116) H Ammonia 109 umol/L (11-32) H Total Protein 6.0 G/DL (6.4-8.2) L Albumin 2.3 G/DL (3.4-5.0) L Globulin 3.7 g/dL Albumin/Globulin Ratio 0.6 (1.0-2.7) L Plan Problems: (1) Multiple injuries due to trauma (2) Sepsis Assessment & Plan: Labs noted lactic acidosis improved with resuscitation CT findings: Limited assessment of the GI tract, due to lack of enteric contrast administration. Exam is also limited due to patient motion artifact and lack of IV contrast administration Evidence of hepatic cirrhosis Small amount of ascites, likely related to the above Surgically absent gallbladder Bilateral basilar pulmonary parenchymal atelectatic changes and possible patchy consolidation Minimal edema of the bilateral flank subcutaneous fat Other findings as noted, including degenerative spondylosis, right hepatic lobe capsular calcification, Quiroz catheter has made a great improvement. denies abd pain. labs improved. decompensated liver cirrhosis LFT's abnormal leukocytosis overall improved but prognosis still guarded Limited assessment of the GI tract, due to lack of enteric contrast administration Abdominal ascites, increased in extent since prior study Increased edema of the subcutaneous fat, since previous study Hepatic surface nodularity, consistent with cirrhosis, also previously reported Borderline splenomegaly Bilateral basilar pulmonary patchy consolidation and atelectasis as well as some congestion. Findings as noted, including degenerative spondylosis, PICC, Quiroz catheter, rectal tube, nasogastric tube CT chest noted ng tube removed Continue with p.o. diet. goals of care for patient; liver center? comfort? snf? pending decision - likely transfer to SNF. -trend labs will follow with recs thank you (3) Liver cirrhosis Josh Samuel Nov 03, 2018 18:42
--- NOTE | 2018-11-03 19:25 | NUR ---
NURSE NOTES: pt in bed sleeping family at bedside. no acute distress no c/o pain or discomfort. safety precautions in place. will continue to monitor
--- NOTE | 2018-11-03 19:34 | NUR ---
HAND-OFF: Report given to KARI Martinez. Patient denies pain. Family at bedside.
[2018-11-03 20:00] VITALS: BP 118/61
--- NOTE | 2018-11-03 20:43 | Pulmonology Progress Note ---
Assessment/Plan Assessment/Plan Pulmonary Progress Note Assessment/Plan ASSESSMENT: The patient is a 58-year-old female with a history of obesity, diabetes, hypertension, hyperlipidemia, and sciatica with chronic low back pain , DDD/DJD, presenting after a mechanical fall with altered mental status and confusion with likely sepsis and multisystem organ failure. PROBLEM LIST: 1. VDRF, EXTUBATED 10/16/18 2. Sepsis 3. Shock, hypovolemic and distributive. 4. Multisystem organ failure. 5. Lactic acidosis. 6. Anion gap metabolic acidosis. 7. JONNATHAN - BETTER 7. Abnormal LFTs, likely shock liver. 8. Abnormal troponin, likely demand ischemia. 9. Elevated D-dimer and PASP concerning for an acute PE 10. Obesity. 11. Diabetes. 12. Hypertension. 13. Chronic low back pain and sciatica. 14. Anemia/FOBT + 15. Thrombocytopenia 16. AFcRVR now in NSR 17. HyperNa 18. Herpes labialis TREATMENT PLAN: 1. Optimize pulmonary hygiene/mobilize as tolerated 2. Titrate down FiO2 to keep SaO2 < 90% 3. Abx per ID (now on PO Cipro) 5. PO Lasix and Aldactone 6. SSI, monitor BS 7. Follow up cards recs 8. GI and surgery recs, ---> [facility] to [facility] 9. DVT prophylaxis: SCD 10. FC, discuss GOC, consider palliative care eval Subjective Allergies: Coded Allergies: No Known Allergies (Unverified , 05/06/18) Subjective AFVSS O2 needs stable no cough no SOB no FC Plan to transfer to liver tx center Objective Vital Signs Noted General Appearance: no acute distress, other - icteric sclera HEENT: normocephalic, atraumatic, mucous membranes moist, other - icteric sclera Respiratory/Chest: chest wall non-tender, lungs clear, normal breath sounds, no respiratory distress Cardiovascular: normal peripheral pulses, normal rate, regular rhythm Abdomen: normal bowel sounds, soft, non tender, no organomegaly, non distended , no mass Extremities: no cyanosis, no clubbing, other - 2+ edema Microbiology Date/Time Source Procedure Growth Status 10/29/18 16:50 Indwelling Cath Urine Culture - Final Escherichia Coli Complete Laboratory Tests 11/01/18 03:45: White Blood Count 11.2H, Red Blood Count 2.65L, Hemoglobin 8.2L, Hematocrit 25.6L, Mean Corpuscular Volume 97, Mean Corpuscular Hemoglobin 31.0, Mean Corpuscular Hemoglobin Concent 32.1, Red Cell Distribution Width 22.8H, Platelet Count 61L, Mean Platelet Volume 5.9L, Neutrophils (%) (Auto) , Lymphocytes (%) (Auto) , Monocytes (%) (Auto) , Eosinophils (%) (Auto) , Basophils (%) (Auto) , Sodium Level 143, Potassium Level 3.7, Chloride Level 106 , Carbon Dioxide Level 28, Anion Gap 9, Blood Urea Nitrogen 18, Creatinine 1.6H , Estimat Glomerular Filtration Rate 33.1, Glucose Level 169H, Calcium Level 9.1 , Total Bilirubin 9.4H, Direct Bilirubin 7.1H, Aspartate Amino Transf (AST/SGOT ) 101H, Alanine Aminotransferase (ALT/SGPT) 63, Alkaline Phosphatase 337H, Ammonia 84H, Total Protein 5.8L, Albumin 2.0L, Globulin 3.8, Albumin/Globulin Ratio 0.5L Current Medications Medications (Trade) Dose Ordered Sig/Patricia Route PRN Reason Start Time Stop Time Status Last Admin Dose Admin Albuterol/ Ipratropium (Albuterol/ Ipratropium) 3 ml Q6H PRN HHN shortness of breath 10/29/18 17:30 11/03/18 17:29 Chlorhexidine Gluconate (Nguyen-Hex 2%) 1 applic DAILY@1999 TOPIC 10/17/18 20:00 11/09/18 19:59 10/31/18 20:34 Ciprofloxacin (Cipro 250mg tab) 250 mg EVERY 12 HOURS ORAL 11/01/18 21:00 11/08/18 20:59 Dextrose (Dextrose 50%) 25 ml Q30M PRN IV Hypoglycemia 10/17/18 14:45 11/10/18 13:44 Dextrose (Dextrose 50%) 50 ml Q30M PRN IV Hypoglycemia 10/17/18 14:45 11/10/18 13:44 Digoxin (Lanoxin) 0.125 mg QOD NG 10/19/18 09:00 11/15/18 08:59 10/31/18 09:08 Diphenhydramine HCl (Benadryl) 25 mg Q6H PRN IVP Itching 10/17/18 14:30 11/08/18 14:29 11/01/18 08:57 Furosemide (Lasix) 40 mg DAILY ORAL 10/29/18 09:00 11/28/18 08:59 11/01/18 08:56 Insulin Aspart (NovoLOG) BEFORE MEALS AND HS SUBQ 10/17/18 16:30 11/10/18 16:29 11/01/18 12:25 Lactulose (Cephulac) 30 gm EVERY 8 HOURS ORAL 10/31/18 14:00 11/12/18 17:59 11/01/18 05:41 Midazolam HCl (Versed 2mg/2ml vial) 1 mg Q2H PRN IVP For Anxiety 10/17/18 14:30 11/11/18 14:29 Morphine Sulfate (Morphine Sulfate) 2 mg Q4H PRN IVP For Pain 10/31/18 18:15 11/07/18 18:14 10/31/18 18:34 Pantoprazole (Protonix) 40 mg EVERY 12 HOURS ORAL 10/28/18 21:00 11/27/18 20:59 11/01/18 08:56 Phytonadione 1 mg/ Dextrose 55.5 ml @ 222 mls/hr ONCE ONCE IVPB 11/01/18 13:00 11/01/18 13:14 Rifaximin (Xifaxan) 550 mg EVERY 12 HOURS ORAL 10/27/18 09:00 11/10/18 08:59 11/01/18 08:57 Spironolactone (Aldactone) 100 mg DAILY ORAL 10/27/18 09:00 11/22/18 09:44 11/01/18 08:56 Subjective ROS Limited/Unobtainable: No Allergies: Coded Allergies: No Known Allergies (Unverified , 05/06/18) Objective Last 24 Hour Vital Signs Date Time Temp Pulse Resp B/P (MAP) Pulse Ox O2 Delivery O2 Flow Rate FiO2 11/03/18 16:50 106 11/03/18 16:00 108 11/03/18 16:00 Nasal Cannula 2.0 11/03/18 16:00 98.0 107 22 118/61 (80) 95 11/03/18 12:00 Nasal Cannula 2.0 11/03/18 12:00 98.4 105 20 119/70 (86) 96 11/03/18 12:00 110 11/03/18 09:31 111 11/03/18 08:45 97 Nasal Cannula 2.0 28 11/03/18 08:45 Nasal Cannula 2.0 28 11/03/18 08:45 96 20 Nasal Cannula 2.0 28 11/03/18 08:00 109 11/03/18 08:00 98.2 111 20 124/57 (79) 98 11/03/18 08:00 Nasal Cannula 2.0 11/03/18 04:00 104 11/03/18 04:00 98.0 109 17 129/71 (90) 98 11/03/18 04:00 Nasal Cannula 2.0 11/03/18 00:00 98.2 109 19 127/69 (88) 98 11/03/18 00:00 Nasal Cannula 2.0 Intake and Output 11/02/18 11/03/18 18:59 06:59 Intake Total 150 ml Output Total 550 ml 350 ml Balance -400 ml -350 ml Intake Oral 150 ml Output Urine Total 550 ml 350 ml Laboratory Tests 11/03/18 09:00: White Blood Count 12.3H, Red Blood Count 2.71L, Hemoglobin 8.3L, Hematocrit 26.1L, Mean Corpuscular Volume 96, Mean Corpuscular Hemoglobin 30.6, Mean Corpuscular Hemoglobin Concent 31.8L, Red Cell Distribution Width 23.2H, Platelet Count 92L, Mean Platelet Volume 6.5, Neutrophils (%) (Auto) , Lymphocytes (%) (Auto) , Monocytes (%) (Auto) , Eosinophils (%) (Auto) , Basophils (%) (Auto) , Differential Total Cells Counted 100, Neutrophils % ( Manual) 77H, Lymphocytes % (Manual) 13L, Monocytes % (Manual) 7, Eosinophils % ( Manual) 3, Basophils % (Manual) 0, Band Neutrophils 0, Platelet Estimate DecreasedL, Platelet Morphology Normal, Polychromasia 1+, Hypochromasia 2+, Anisocytosis 3+, Stomatocytes Rare, Sodium Level 142, Potassium Level 3.6, Chloride Level 105, Carbon Dioxide Level 28, Anion Gap 9, Blood Urea Nitrogen 16 , Creatinine 1.8H, Estimat Glomerular Filtration Rate 28.9, Glucose Level 175H, Calcium Level 9.6, Total Bilirubin 10.3H, Direct Bilirubin 7.8H, Aspartate Amino Transf (AST/SGOT) 108H, Alanine Aminotransferase (ALT/SGPT) 59, Alkaline Phosphatase 335H, Ammonia 109H, Total Protein 6.0L, Albumin 2.3L, Globulin 3.7, Albumin/Globulin Ratio 0.6L Current Medications Medications (Trade) Dose Ordered Sig/Patricia Route PRN Reason Start Time Stop Time Status Last Admin Dose Admin Chlorhexidine Gluconate (Nguyen-Hex 2%) 1 applic DAILY@2000 TOPIC 11/02/18 20:00 11/09/18 19:59 11/02/18 21:51 Ciprofloxacin (Cipro 250mg tab) 250 mg EVERY 12 HOURS ORAL 11/02/18 21:00 11/08/18 20:59 11/03/18 09:30 Dextrose (Dextrose 50%) 25 ml Q30M PRN IV Hypoglycemia 11/02/18 15:15 11/10/18 13:44 Dextrose (Dextrose 50%) 50 ml Q30M PRN IV Hypoglycemia 11/02/18 15:15 11/10/18 13:44 Digoxin (Lanoxin) 0.125 mg DAILY ORAL 11/04/18 09:00 11/15/18 08:59 Diphenhydramine HCl (Benadryl) 25 mg Q6H PRN IVP Itching 11/02/18 16:00 11/08/18 15:59 Furosemide (Lasix) 20 mg DAILY IV 11/03/18 09:00 12/03/18 08:59 11/03/18 09:30 Insulin Aspart (NovoLOG) BEFORE MEALS AND HS SUBQ 11/02/18 16:30 11/10/18 16:29 11/03/18 17:37 Lactulose (Cephulac) 30 gm EVERY 8 HOURS ORAL 11/02/18 22:00 11/12/18 17:59 11/03/18 12:44 Ondansetron HCl (Zofran) 4 mg Q6H PRN IVP Nausea & Vomiting 11/02/18 15:48 12/02/18 15:47 11/03/18 17:50 Pantoprazole (Protonix) 40 mg Q12HR ORAL 11/03/18 21:00 11/27/18 20:59 Rifaximin (Xifaxan) 550 mg EVERY 12 HOURS ORAL 11/02/18 21:00 11/10/18 08:59 11/03/18 09:30 Spironolactone (Aldactone) 100 mg DAILY ORAL 11/03/18 09:00 11/22/18 09:44 11/03/18 09:29 Tramadol HCl (Ultram) 50 mg Q6H PRN ORAL For Pain 11/03/18 16:45 11/10/18 16:44 Vishnu Jurado MD Nov 03, 2018 20:43
[2018-11-03] MEDS: Dyna-Hex 2% Top Sol 2oz TOPIC SCH (20:52)
[2018-11-04] VITALS: BP 130/79
--- NOTE | 2018-11-04 | NUR ---
NURSE NOTES: pt in bed. no acute distress noted. no s/s of pain. will continue to monitor
--- NOTE | 2018-11-04 | NUR ---
NURSE NOTES: 000
[2018-11-04 04:00] VITALS: BP 128/68
[2018-11-04] MEDS: Lactulose 20gm/30ml UDC ORAL SCH ×3 (06:12→21:31)
[2018-11-04] MEDS: NovoLOG Insulin Flexpen SUBQ SCH ×4 (06:13→21:16)
--- NOTE | 2018-11-04 07:12 | NUR ---
NURSE NOTES: pt reminded in stable condition during my shift. will endorse care plan to incoming nurse
--- NOTE | 2018-11-04 07:15 | NUR ---
NURSE NOTES: I received the patient awake and resting in bed. Patient alert and oriented x4. Patient repositioned and set-up to eat breakfast. Patient does not display any signs of distress or SOB. Bed in the lowest position and call light within reach.
--- NOTE | 2018-11-04 07:39 | NUR ---
HAND-OFF: Report given to Chelsey PIERCE.
[2018-11-04 08:00] VITALS: BP 133/74
[2018-11-04] MEDS ORDERED: Digoxin 0.125mg tab NG SCH (09:00)
[2018-11-04] MEDS: Spironolactone 50mg tab ORAL SCH (09:33)
[2018-11-04] MEDS: Digoxin 0.125mg tab ORAL SCH (09:36)
[2018-11-04 11:02] LABS: BASOPHILS % (AUTO) 1.6 % (0.0-2.0); EOSINOPHILS % (AUTO) 2.2 % (0.0-3.0); HEMATOCRIT 28.3 % (37.0-47.0); HEMOGLOBIN 8.6 G/DL (12.0-16.0); LYMPHOCYTES % (AUTO) 13.5 % (20.0-45.0); MEAN CORPUSCULAR VOLUME 97 FL (80-99); MONOCYTES % (AUTO) 5.3 % (1.0-10.0); NEUTROPHILS % (AUTO) 77.3 % (45.0-75.0); PLATELET COUNT 107 K/UL (150-450); RED BLOOD COUNT 2.91 M/UL (4.20-5.40); RED CELL DISTRIBUTION WIDTH 23.6 % (11.6-14.8); WHITE BLOOD COUNT 14.8 K/UL (4.8-10.8)
[2018-11-04 11:50] LABS: ALANINE AMINOTRANSFERASE 60 U/L (12-78); ALBUMIN 2.3 G/DL (3.4-5.0); ALBUMIN/GLOBULIN RATIO 0.6 (1.0-2.7); ALKALINE PHOSPHATASE 372 U/L (46-116); ANION GAP 10 mmol/L (5-15); ASPARTATE AMINO TRANSFERASE 124 U/L (15-37); BILIRUBIN,TOTAL 11.1 MG/DL (0.2-1.0); BLOOD UREA NITROGEN 17 mg/dL (7-18); CALCIUM 10.1 MG/DL (8.5-10.1); CARBON DIOXIDE 27 MMOL/L (21-32); CHLORIDE 105 MMOL/L (98-107); CREATININE 1.7 MG/DL (0.55-1.30); PHOSPHORUS 3.4 MG/DL (2.5-4.9); POTASSIUM 3.8 MMOL/L (3.5-5.1); SODIUM 142 MMOL/L (136-145)
[2018-11-04 11:52] LABS: BILIRUBIN,DIRECT 7.8 MG/DL (0.0-0.3)
[2018-11-04 12:00] VITALS: BP 108/67
--- NOTE | 2018-11-04 13:06 | NUR ---
NURSE NOTES: Dr. Kelley and Dr. Reynolds made aware of patient ammonia level of 120. No new orders at this time.
--- NOTE | 2018-11-04 13:50 | Infectious Diseases Prog Note ---
Assessment/Plan Assessment/Plan A: 1. Septic Shock resolved.culture are negative so far 2. aspiration pneumonia. 3. acute renal failure , resolved 4. Diabetes mellitus. 5. Obesity. 6. Lactic acidosis. 7. Anemia.s/p transfusion 8. Cirrhosis with ascites 9. Enteritis, ileus resolved 10. Leukocytosis worsening 11. GI bleeding 12. UTI RECOMMENDATION: Continue Cipro F/U CBC remove PICC line before discharge Subjective ROS Limited/Unobtainable: Yes Gastrointestinal/Abdominal: Reports: other - abdominal pain with eating Allergies: Coded Allergies: No Known Allergies (Unverified , 05/06/18) Objective Vital Signs Last 24 Hour Vital Signs Date Time Temp Pulse Resp B/P (MAP) Pulse Ox O2 Delivery O2 Flow Rate FiO2 11/04/18 12:00 98.0 117 21 108/67 (81) 98 11/04/18 12:00 Nasal Cannula 2.0 11/04/18 11:33 119 11/04/18 09:36 95 11/04/18 08:00 98.1 119 22 133/74 (93) 93 11/04/18 08:00 Nasal Cannula 2.0 11/04/18 07:48 119 11/04/18 04:00 98.1 117 16 128/68 (88) 93 11/04/18 04:00 114 11/04/18 04:00 Nasal Cannula 2.0 11/04/18 00:00 Nasal Cannula 2.0 11/04/18 00:00 98.1 111 16 130/79 (96) 94 11/04/18 00:00 107 11/03/18 20:14 Nasal Cannula 2.0 28 11/03/18 20:14 95 20 Nasal Cannula 2.0 28 11/03/18 20:14 96 Nasal Cannula 2.0 28 11/03/18 20:00 Nasal Cannula 2.0 11/03/18 20:00 98.1 114 22 118/61 (80) 95 11/03/18 20:00 111 11/03/18 16:50 106 11/03/18 16:00 108 11/03/18 16:00 Nasal Cannula 2.0 11/03/18 16:00 98.0 107 22 118/61 (80) 95 Height (Feet): 5 Height (Inches): 1.00 Weight (Pounds): 235 HEENT: mucous membranes moist, other - icterus sclera Respiratory/Chest: lungs clear Cardiovascular: tachycardia, other - left arm PICC line Abdomen: soft, non tender Extremities: other - anasarca Neurologic/Psychiatric: alert, responsive Laboratory Tests Test 11/04/18 10:50 11/04/18 12:10 White Blood Count 14.8 K/UL (4.8-10.8) H Red Blood Count 2.91 M/UL (4.20-5.40) L Hemoglobin 8.6 G/DL (12.0-16.0) L Hematocrit 28.3 % (37.0-47.0) L Mean Corpuscular Volume 97 FL (80-99) Mean Corpuscular Hemoglobin 29.7 PG (27.0-31.0) Mean Corpuscular Hemoglobin Concent 30.4 G/DL (32.0-36.0) L Red Cell Distribution Width 23.6 % (11.6-14.8) H Platelet Count 107 K/UL (150-450) L Mean Platelet Volume 6.4 FL (6.5-10.1) L Neutrophils (%) (Auto) 77.3 % (45.0-75.0) H Lymphocytes (%) (Auto) 13.5 % (20.0-45.0) L Monocytes (%) (Auto) 5.3 % (1.0-10.0) Eosinophils (%) (Auto) 2.2 % (0.0-3.0) Basophils (%) (Auto) 1.6 % (0.0-2.0) Sodium Level 142 MMOL/L (136-145) Potassium Level 3.8 MMOL/L (3.5-5.1) Chloride Level 105 MMOL/L (98-107) Carbon Dioxide Level 27 MMOL/L (21-32) Anion Gap 10 mmol/L (5-15) Blood Urea Nitrogen 17 mg/dL (7-18) Creatinine 1.7 MG/DL (0.55-1.30) H Estimat Glomerular Filtration Rate 30.9 mL/min (>60) Glucose Level 134 MG/DL (74-106) H Uric Acid 9.0 MG/DL (2.6-7.2) H Calcium Level 10.1 MG/DL (8.5-10.1) Phosphorus Level 3.4 MG/DL (2.5-4.9) Magnesium Level 1.9 MG/DL (1.8-2.4) Total Bilirubin 11.1 MG/DL (0.2-1.0) H Direct Bilirubin 7.8 MG/DL (0.0-0.3) H Aspartate Amino Transf (AST/SGOT) 124 U/L (15-37) H Alanine Aminotransferase (ALT/SGPT) 60 U/L (12-78) Alkaline Phosphatase 372 U/L (46-116) H C-Reactive Protein, Quantitative 7.6 mg/dL (0.00-0.90) H Pro-B-Type Natriuretic Peptide 353 pg/mL (0-125) H Total Protein 6.2 G/DL (6.4-8.2) L Albumin 2.3 G/DL (3.4-5.0) L Globulin 3.9 g/dL Albumin/Globulin Ratio 0.6 (1.0-2.7) L Digoxin Level 1.3 NG/ML (0.9-2.0) Ammonia 120 umol/L (11-32) H Current Medications Medications (Trade) Dose Ordered Sig/Patricia Route PRN Reason Start Time Stop Time Status Last Admin Dose Admin Chlorhexidine Gluconate (Nguyen-Hex 2%) 1 applic DAILY@1999 TOPIC 11/02/18 20:00 11/09/18 19:59 11/03/18 20:52 Ciprofloxacin (Cipro 250mg tab) 250 mg EVERY 12 HOURS ORAL 11/02/18 21:00 11/08/18 20:59 11/04/18 09:32 Dextrose (Dextrose 50%) 25 ml Q30M PRN IV Hypoglycemia 11/02/18 15:15 11/10/18 13:44 Dextrose (Dextrose 50%) 50 ml Q30M PRN IV Hypoglycemia 11/02/18 15:15 11/10/18 13:44 Digoxin (Lanoxin) 0.125 mg DAILY ORAL 11/04/18 09:00 11/15/18 08:59 11/04/18 09:36 Diphenhydramine HCl (Benadryl) 25 mg Q6H PRN IVP Itching 11/02/18 16:00 11/08/18 15:59 Furosemide (Lasix) 20 mg DAILY IV 11/03/18 09:00 12/03/18 08:59 11/04/18 09:32 Insulin Aspart (NovoLOG) BEFORE MEALS AND HS SUBQ 11/02/18 16:30 11/10/18 16:29 11/04/18 11:45 Lactulose (Cephulac) 30 gm EVERY 8 HOURS ORAL 11/02/18 22:00 11/12/18 17:59 11/04/18 06:12 Ondansetron HCl (Zofran) 4 mg Q6H PRN IVP Nausea & Vomiting 11/02/18 15:48 12/02/18 15:47 11/03/18 17:50 Pantoprazole (Protonix) 40 mg Q12HR ORAL 11/03/18 21:00 11/27/18 20:59 11/04/18 09:32 Rifaximin (Xifaxan) 550 mg EVERY 12 HOURS ORAL 11/02/18 21:00 11/10/18 08:59 11/04/18 09:32 Spironolactone (Aldactone) 100 mg DAILY ORAL 11/03/18 09:00 11/22/18 09:44 11/04/18 09:33 Tramadol HCl (Ultram) 50 mg Q6H PRN ORAL For Pain 11/03/18 16:45 11/10/18 16:44 Wesley Akers MD Nov 04, 2018 13:50
--- NOTE | 2018-11-04 13:58 | NUR ---
CASE MANAGEMENT: REVIEW 11/04/2018 SI:SYNCOPE. T 98 HR 117 RR 21 B/P 108/67 SATS 98% ON 2L/NC WBC 14.8 CR 1.7 GLU 134 CA 9 TBILI 11.1 DBILI 7.8 AST 124 ALP 124 AMMONIA 120 IS:LACTULOSE PO Q8H CIPRO PO Q12H RIFAXIMIN PO Q12H LASIX IV QD PROTONIX PO QD ALDACTONE PO QD INSULIN ASPART SUBQ AC/HS TELE STATUS
[2018-11-04] MEDS ORDERED: NS 275ml ONE (15:11)
[2018-11-04] MEDS ORDERED: Tubing IV Secondary IV ONE (15:11)
--- NOTE | 2018-11-04 15:22 | General Progress Note ---
Assessment/Plan Problem List: (1) Hypotension ICD Codes: I95.9 - Hypotension, unspecified SNOMED: 46156645 (2) Hyperglycemia ICD Codes: R73.9 - Hyperglycemia, unspecified SNOMED: 50487830 (3) Dyspnea ICD Codes: R06.00 - Dyspnea, unspecified SNOMED: 164407785 (4) Hypoxemia ICD Codes: R09.02 - Hypoxemia SNOMED: 034295126 (5) Contusion of left knee ICD Codes: S80.02XA - Contusion of left knee, initial encounter SNOMED: 87509978 (6) Sepsis ICD Codes: A41.9 - Sepsis, unspecified organism SNOMED: 09642346 (7) Septic shock ICD Codes: A41.9 - Sepsis, unspecified organism; R65.21 - Severe sepsis with septic shock SNOMED: 54899635 (8) Liver cirrhosis ICD Codes: K74.60 - Unspecified cirrhosis of liver SNOMED: 66923089 (9) Pneumonia ICD Codes: J18.9 - Pneumonia, unspecified organism SNOMED: 654610802 (10) Respiratory disorder with ventilator dependence ICD Codes: J98.9 - Respiratory disorder, unspecified; Z99.11 - Dependence on respirator [ventilator] status SNOMED: 98060008, 978053744 (11) Shock liver ICD Codes: K72.00 - Acute and subacute hepatic failure without coma SNOMED: 845338867 Status: progressing Assessment/Plan waxing and waning mental status due to hepatic encephalopathy elevated ammonia hepatic encephalopathy elevated lft edema cihrrosis very edematous third spacing nausea pitting edema pna sepsis elevated sugar poor prognosis Subjective ROS Limited/Unobtainable: Yes Allergies: Coded Allergies: No Known Allergies (Unverified , 05/06/18) Objective Last 24 Hour Vital Signs Date Time Temp Pulse Resp B/P (MAP) Pulse Ox O2 Delivery O2 Flow Rate FiO2 11/04/18 12:00 98.0 117 21 108/67 (81) 98 11/04/18 12:00 Nasal Cannula 2.0 11/04/18 11:33 119 11/04/18 09:36 95 11/04/18 08:00 98.1 119 22 133/74 (93) 93 11/04/18 08:00 Nasal Cannula 2.0 11/04/18 07:48 119 11/04/18 04:00 98.1 117 16 128/68 (88) 93 11/04/18 04:00 114 11/04/18 04:00 Nasal Cannula 2.0 11/04/18 00:00 Nasal Cannula 2.0 11/04/18 00:00 98.1 111 16 130/79 (96) 94 11/04/18 00:00 107 11/03/18 20:14 Nasal Cannula 2.0 28 11/03/18 20:14 95 20 Nasal Cannula 2.0 28 11/03/18 20:14 96 Nasal Cannula 2.0 28 11/03/18 20:00 Nasal Cannula 2.0 11/03/18 20:00 98.1 114 22 118/61 (80) 95 11/03/18 20:00 111 11/03/18 16:50 106 11/03/18 16:00 108 11/03/18 16:00 Nasal Cannula 2.0 11/03/18 16:00 98.0 107 22 118/61 (80) 95 Intake and Output 11/03/18 11/04/18 19:00 07:00 Intake Total 480 ml Output Total 600 ml 400 ml Balance -120 ml -400 ml Intake Oral 480 ml Output Urine Total 600 ml 400 ml Laboratory Tests 11/04/18 10:50: White Blood Count 14.8H, Red Blood Count 2.91L, Hemoglobin 8.6L, Hematocrit 28.3L, Mean Corpuscular Volume 97, Mean Corpuscular Hemoglobin 29.7, Mean Corpuscular Hemoglobin Concent 30.4L, Red Cell Distribution Width 23.6H, Platelet Count 107L, Mean Platelet Volume 6.4L, Neutrophils (%) (Auto) 77.3H, Lymphocytes (%) (Auto) 13.5L, Monocytes (%) (Auto) 5.3, Eosinophils (%) (Auto) 2.2, Basophils (%) (Auto) 1.6, Sodium Level 142, Potassium Level 3.8, Chloride Level 105, Carbon Dioxide Level 27, Anion Gap 10, Blood Urea Nitrogen 17, Creatinine 1.7H, Estimat Glomerular Filtration Rate 30.9, Glucose Level 134H, Uric Acid 9.0H, Calcium Level 10.1, Phosphorus Level 3.4, Magnesium Level 1.9, Total Bilirubin 11.1H, Direct Bilirubin 7.8H, Aspartate Amino Transf (AST/SGOT) 124H, Alanine Aminotransferase (ALT/SGPT) 60, Alkaline Phosphatase 372H, C- Reactive Protein, Quantitative 7.6H, Pro-B-Type Natriuretic Peptide 353H, Total Protein 6.2L, Albumin 2.3L, Globulin 3.9, Albumin/Globulin Ratio 0.6L, Digoxin Level 1.3 11/04/18 12:10: Ammonia 120H Height (Feet): 5 Height (Inches): 1.00 Weight (Pounds): 235 General Appearance: lethargic, confused Abdomen: soft Michael Kelley MD Nov 04, 2018 15:22
--- NOTE | 2018-11-04 15:37 | Nephrology Progress Note ---
Assessment/Plan Problem List: (1) JONNATHAN (acute kidney injury) Assessment: Cr 1.8 (2) Shock liver (3) Septic shock (4) Respiratory disorder with ventilator dependence (5) Jaundice Assessment - Acute Oliguric Renal Failure Cr down to 1.1 - Respiratory disorder with s/p mechanical ventilator - Septic shock , Leukocytosis resolved - Pneumonia - Liver cirrhosis - Obese - Anemia . Plan PO K as needed check dig level and adjust dig dose transfused 2 units previously K and Phos as needed mag IV as needed Hemodynamic support Pulmonary support Monitor renal parameters avoid nephrotoxics as best as possible per orders discussed with RN Subjective ROS Limited/Unobtainable: No Constitutional: Reports: malaise, weakness Objective Objective Last 24 Hour Vital Signs Date Time Temp Pulse Resp B/P (MAP) Pulse Ox O2 Delivery O2 Flow Rate FiO2 11/04/18 12:00 98.0 117 21 108/67 (81) 98 11/04/18 12:00 Nasal Cannula 2.0 11/04/18 11:33 119 11/04/18 09:36 95 11/04/18 08:00 98.1 119 22 133/74 (93) 93 11/04/18 08:00 Nasal Cannula 2.0 11/04/18 07:48 119 11/04/18 04:00 98.1 117 16 128/68 (88) 93 11/04/18 04:00 114 11/04/18 04:00 Nasal Cannula 2.0 11/04/18 00:00 Nasal Cannula 2.0 11/04/18 00:00 98.1 111 16 130/79 (96) 94 11/04/18 00:00 107 11/03/18 20:14 Nasal Cannula 2.0 28 11/03/18 20:14 95 20 Nasal Cannula 2.0 28 11/03/18 20:14 96 Nasal Cannula 2.0 28 11/03/18 20:00 Nasal Cannula 2.0 11/03/18 20:00 98.1 114 22 118/61 (80) 95 11/03/18 20:00 111 11/03/18 16:50 106 11/03/18 16:00 108 11/03/18 16:00 Nasal Cannula 2.0 11/03/18 16:00 98.0 107 22 118/61 (80) 95 Intake and Output 11/03/18 11/04/18 19:00 07:00 Intake Total 480 ml Output Total 600 ml 400 ml Balance -120 ml -400 ml Intake Oral 480 ml Output Urine Total 600 ml 400 ml Laboratory Tests 11/04/18 10:50: White Blood Count 14.8H, Red Blood Count 2.91L, Hemoglobin 8.6L, Hematocrit 28.3L, Mean Corpuscular Volume 97, Mean Corpuscular Hemoglobin 29.7, Mean Corpuscular Hemoglobin Concent 30.4L, Red Cell Distribution Width 23.6H, Platelet Count 107L, Mean Platelet Volume 6.4L, Neutrophils (%) (Auto) 77.3H, Lymphocytes (%) (Auto) 13.5L, Monocytes (%) (Auto) 5.3, Eosinophils (%) (Auto) 2.2, Basophils (%) (Auto) 1.6, Sodium Level 142, Potassium Level 3.8, Chloride Level 105, Carbon Dioxide Level 27, Anion Gap 10, Blood Urea Nitrogen 17, Creatinine 1.7H, Estimat Glomerular Filtration Rate 30.9, Glucose Level 134H, Uric Acid 9.0H, Calcium Level 10.1, Phosphorus Level 3.4, Magnesium Level 1.9, Total Bilirubin 11.1H, Direct Bilirubin 7.8H, Aspartate Amino Transf (AST/SGOT) 124H, Alanine Aminotransferase (ALT/SGPT) 60, Alkaline Phosphatase 372H, C- Reactive Protein, Quantitative 7.6H, Pro-B-Type Natriuretic Peptide 353H, Total Protein 6.2L, Albumin 2.3L, Globulin 3.9, Albumin/Globulin Ratio 0.6L, Digoxin Level 1.3 11/04/18 12:10: Ammonia 120H Height (Feet): 5 Height (Inches): 1.00 Weight (Pounds): 235 General Appearance: no apparent distress Cardiovascular: tachycardia Respiratory/Chest: decreased breath sounds Abdomen: distended Objective NO CHANGE Alex Cueto MD Nov 04, 2018 15:37
[2018-11-04] MEDS ORDERED: Digoxin 0.125mg tab ORAL SCH (15:45)
[2018-11-04 16:00] VITALS: BP 120/58
--- NOTE | 2018-11-04 16:04 | General Progress Note ---
Assessment/Plan Assessment/Plan # Leukocytosis/elevated white blood cell count, unspecified likely related to underlying stress reaction, or underlying infection --> have reviewed peripheral smear and bandemia/neutrophilia noted --> continue antibiotics if they have been started by ID team (currently theu have been stopped) --> monitor for resolution --> WBC trend: 14-->10-->15-->12-->11-->10-->8.6-->8.1-->10-->12.3 # Thrombocytopenia - potential causes multifactorial but most likely contributor is cirrhosis, that is chronic, elevated bili with ascites --> Hep panel and HIV negative --> CT a/p show cirrhosis as well as us --> Peripheral smear ordered to evaluate for blasts /schistocytes is negative --> abx and other meds have been reviewed --> ok for ppx if plt >50k w/ either heparin or lovenox --> Transfuse if Plt < 20k and fever, or if Plt < 10k without fever --> HIT negative, hold off heparin --> Plt trend : 54-->92-->106-->113-->62-->61-->61k-->74k-->92k-->107k --> awaiting transfer to higher level of care for transplant of the liver # Anemia of iron deficiency as noted with low % sat and tibc elevated --> Anemia workup has been reviewed --> No evidence of hemolysis is noted, peripheral smear has been reviewed. --> Hgb goal >7. Transfuse prn. --> Iron IV X 5 days already given --> Medications have been reviewed # CEA of 10.5 --> Ct of abdomen/pelvis reviewed and is negative --> as per gi recs --> scope as needed # Sepsis likely contributing to low plts --> on abx as needed # Shock, hypovolemic and distributive --> per id and pulm/cc care # Multisystem organ failure. # Lactic acidosis. # JONNATHAN. # Abnormal LFTs, likely shock liver. # Abnormal troponin, likely demand ischemia. # Obesity. # Respiratory failure on vent --> now extubated # Afib on meds as per cards The timing of this note does not necessarily reflect the time of the patient was seen. Greatly appreciate consultation! Subjective Constitutional: Denies: no symptoms, chills, diaphoresis, fever, malaise, weakness, other HEENT: Denies: no symptoms, eye pain, blurred vision, tearing, double vision, ear pain, ear discharge, nose pain, nose congestion, throat pain, throat swelling, mouth pain, mouth swelling, other Cardiovascular: Denies: no symptoms, chest pain, edema, irregular heart rate, lightheadedness, palpitations, syncope, other Respiratory: Denies: no symptoms, cough, orthopnea, shortness of breath, SOB with excertion, SOB at rest, sputum, stridor, wheezing, other Gastrointestinal/Abdominal: Denies: no symptoms, abdomen distended, abdominal pain, black stools, tarry stools, blood in stool, constipated, diarrhea, difficulty swallowing, nausea, poor appetite, poor fluid intake, rectal bleeding , vomiting, other Neurologic/Psychiatric: Denies: no symptoms, anxiety, depressed, emotional problems, headache, numbness, paresthesia, pre-existing deficit, seizure, tingling, tremors, weakness, other Allergies: Coded Allergies: No Known Allergies (Unverified , 05/06/18) Subjective 3: Pt was seen in ICU on Vent and off pressors, developed atrial fib, wbc trending down to 13, plt trending down to 60 3: remains in the icu, monitoring labs, plts stabilizing, remains critically ill, cea elev 3: In ICU on Vent and off pressors, plt 62, no events 10/16 wbc trending up at 14,plt low at 48,weaning well from vent. no acute events , family at bedside 10/17: plts remain low, no events, weaned off vent, no complaints, off pressors 10/18: seen by bedside, wbc trending up at 15, plt low at 50, no events, needs video swallow. NGT 10/19: wbc remains elevated, plt 54, no acute distress reported 10/21: seen by bedside, still with lots of NG tube output, wbc 12, plt trending up 10/22: awake, alert,has high NG tube residual, wbc 11, no events 10/23: comfortable, wbc trending down, plt trending up , no events 10/24: Seen by bedside, leukocytosis resolved, no events 3/14: awake, comfortable, Surgery removed NGT, no events 3.15: NG tube was removed yesterday and patient started on diet, comfortable, no events, plt trending up 10/28: seen by bedside, lethargic, no events 10/29: remains extubated, cbc reviewed, bili remains elevated, lethargic, on abx 10/30: awake, tolerating some diet, no events, plt trending down 10/31: No overnight events reported, awake and comfortable. 11/01: awaiting transfer to higher level of care for transplant, no other events 11/02: transferred to [facility], checking dig level, awaiting transfer to [facility] 11/03: no events, in bed sleeping this am, without complaints Objective Last 24 Hour Vital Signs Date Time Temp Pulse Resp B/P (MAP) Pulse Ox O2 Delivery O2 Flow Rate FiO2 11/04/18 12:00 98.0 117 21 108/67 (81) 98 11/04/18 12:00 Nasal Cannula 2.0 11/04/18 11:33 119 11/04/18 09:36 95 11/04/18 08:00 98.1 119 22 133/74 (93) 93 11/04/18 08:00 Nasal Cannula 2.0 11/04/18 07:48 119 11/04/18 04:00 98.1 117 16 128/68 (88) 93 11/04/18 04:00 114 11/04/18 04:00 Nasal Cannula 2.0 11/04/18 00:00 Nasal Cannula 2.0 11/04/18 00:00 98.1 111 16 130/79 (96) 94 11/04/18 00:00 107 11/03/18 20:14 Nasal Cannula 2.0 28 11/03/18 20:14 95 20 Nasal Cannula 2.0 28 11/03/18 20:14 96 Nasal Cannula 2.0 28 11/03/18 20:00 Nasal Cannula 2.0 11/03/18 20:00 98.1 114 22 118/61 (80) 95 11/03/18 20:00 111 11/03/18 16:50 106 Intake and Output 11/03/18 11/04/18 19:00 07:00 Intake Total 480 ml Output Total 600 ml 400 ml Balance -120 ml -400 ml Intake Oral 480 ml Output Urine Total 600 ml 400 ml Laboratory Tests 11/04/18 10:50: White Blood Count 14.8H, Red Blood Count 2.91L, Hemoglobin 8.6L, Hematocrit 28.3L, Mean Corpuscular Volume 97, Mean Corpuscular Hemoglobin 29.7, Mean Corpuscular Hemoglobin Concent 30.4L, Red Cell Distribution Width 23.6H, Platelet Count 107L, Mean Platelet Volume 6.4L, Neutrophils (%) (Auto) 77.3H, Lymphocytes (%) (Auto) 13.5L, Monocytes (%) (Auto) 5.3, Eosinophils (%) (Auto) 2.2, Basophils (%) (Auto) 1.6, Sodium Level 142, Potassium Level 3.8, Chloride Level 105, Carbon Dioxide Level 27, Anion Gap 10, Blood Urea Nitrogen 17, Creatinine 1.7H, Estimat Glomerular Filtration Rate 30.9, Glucose Level 134H, Uric Acid 9.0H, Calcium Level 10.1, Phosphorus Level 3.4, Magnesium Level 1.9, Total Bilirubin 11.1H, Direct Bilirubin 7.8H, Aspartate Amino Transf (AST/SGOT) 124H, Alanine Aminotransferase (ALT/SGPT) 60, Alkaline Phosphatase 372H, C- Reactive Protein, Quantitative 7.6H, Pro-B-Type Natriuretic Peptide 353H, Total Protein 6.2L, Albumin 2.3L, Globulin 3.9, Albumin/Globulin Ratio 0.6L, Digoxin Level 1.3 11/04/18 12:10: Ammonia 120H Height (Feet): 5 Height (Inches): 1.00 Weight (Pounds): 235 Objective PHYSICAL EXAMINATION: VITAL SIGNS: reviewed, saturating 98% on NC++, GENERAL: She is an obese female, confused. HEENT: Normocephalic and atraumatic. Oropharynx is clear with dry mucous membranes., NECK: Supple without lymphadenopathy or JVP. CHEST: Clear. HEART: Regular. ABDOMEN: Benign. EXTREMITIES: No cyanosis, clubbing, or edema. There are some ecchymoses Kurtis Villagomez MD Nov 04, 2018 16:04
--- NOTE | 2018-11-04 18:01 | Pulmonology Progress Note ---
Assessment/Plan Assessment/Plan Pulmonary Progress Note Assessment/Plan ASSESSMENT: The patient is a 58-year-old female with a history of obesity, diabetes, hypertension, hyperlipidemia, and sciatica with chronic low back pain , DDD/DJD, presenting after a mechanical fall with altered mental status and confusion with likely sepsis and multisystem organ failure. PROBLEM LIST: 1. VDRF, EXTUBATED 10/16/18 2. Sepsis 3. Shock, hypovolemic and distributive. 4. Multisystem organ failure. 5. Lactic acidosis. 6. Anion gap metabolic acidosis. 7. JONNATHAN - BETTER 7. Abnormal LFTs, likely shock liver. 8. Abnormal troponin, likely demand ischemia. 9. Elevated D-dimer and PASP concerning for an acute PE 10. Obesity. 11. Diabetes. 12. Hypertension. 13. Chronic low back pain and sciatica. 14. Anemia/FOBT + 15. Thrombocytopenia 16. AFcRVR now in NSR 17. HyperNa 18. Herpes labialis TREATMENT PLAN: 1. Optimize pulmonary hygiene/mobilize as tolerated 2. Titrate down FiO2 to keep SaO2 < 90% 3. Abx per ID (now on PO Cipro) 5. PO Lasix and Aldactone 6. SSI, monitor BS 7. Follow up cards recs 8. GI and surgery recs, ---> [facility] 9. DVT prophylaxis: SCD 10. FC, discuss GOC, consider palliative care eval Subjective Allergies: Coded Allergies: No Known Allergies (Unverified , 05/06/18) Subjective AFVSS O2 needs stable no cough no SOB no FC Plan to transfer to liver tx center Objective Vital Signs Noted General Appearance: no acute distress, other - icteric sclera HEENT: normocephalic, atraumatic, mucous membranes moist, other - icteric sclera Respiratory/Chest: chest wall non-tender, lungs clear, normal breath sounds, no respiratory distress Cardiovascular: normal peripheral pulses, normal rate, regular rhythm Abdomen: normal bowel sounds, soft, non tender, no organomegaly, non distended , no mass Extremities: no cyanosis, no clubbing, other - 2+ edema Microbiology Date/Time Source Procedure Growth Status 10/29/18 16:50 Indwelling Cath Urine Culture - Final Escherichia Coli Complete Laboratory Tests 11/01/18 03:45: White Blood Count 11.2H, Red Blood Count 2.65L, Hemoglobin 8.2L, Hematocrit 25.6L, Mean Corpuscular Volume 97, Mean Corpuscular Hemoglobin 31.0, Mean Corpuscular Hemoglobin Concent 32.1, Red Cell Distribution Width 22.8H, Platelet Count 61L, Mean Platelet Volume 5.9L, Neutrophils (%) (Auto) , Lymphocytes (%) (Auto) , Monocytes (%) (Auto) , Eosinophils (%) (Auto) , Basophils (%) (Auto) , Sodium Level 143, Potassium Level 3.7, Chloride Level 106 , Carbon Dioxide Level 28, Anion Gap 9, Blood Urea Nitrogen 18, Creatinine 1.6H , Estimat Glomerular Filtration Rate 33.1, Glucose Level 169H, Calcium Level 9.1 , Total Bilirubin 9.4H, Direct Bilirubin 7.1H, Aspartate Amino Transf (AST/SGOT ) 101H, Alanine Aminotransferase (ALT/SGPT) 63, Alkaline Phosphatase 337H, Ammonia 84H, Total Protein 5.8L, Albumin 2.0L, Globulin 3.8, Albumin/Globulin Ratio 0.5L Current Medications Medications (Trade) Dose Ordered Sig/Patricia Route PRN Reason Start Time Stop Time Status Last Admin Dose Admin Albuterol/ Ipratropium (Albuterol/ Ipratropium) 3 ml Q6H PRN HHN shortness of breath 10/29/18 17:30 11/03/18 17:29 Chlorhexidine Gluconate (Nguyen-Hex 2%) 1 applic DAILY@1999 TOPIC 10/17/18 20:00 11/09/18 19:59 10/31/18 20:34 Ciprofloxacin (Cipro 250mg tab) 250 mg EVERY 12 HOURS ORAL 11/01/18 21:00 11/08/18 20:59 Dextrose (Dextrose 50%) 25 ml Q30M PRN IV Hypoglycemia 10/17/18 14:45 11/10/18 13:44 Dextrose (Dextrose 50%) 50 ml Q30M PRN IV Hypoglycemia 10/17/18 14:45 11/10/18 13:44 Digoxin (Lanoxin) 0.125 mg QOD NG 10/19/18 09:00 11/15/18 08:59 10/31/18 09:08 Diphenhydramine HCl (Benadryl) 25 mg Q6H PRN IVP Itching 10/17/18 14:30 11/08/18 14:29 11/01/18 08:57 Furosemide (Lasix) 40 mg DAILY ORAL 10/29/18 09:00 11/28/18 08:59 11/01/18 08:56 Insulin Aspart (NovoLOG) BEFORE MEALS AND HS SUBQ 10/17/18 16:30 11/10/18 16:29 11/01/18 12:25 Lactulose (Cephulac) 30 gm EVERY 8 HOURS ORAL 10/31/18 14:00 11/12/18 17:59 11/01/18 05:41 Midazolam HCl (Versed 2mg/2ml vial) 1 mg Q2H PRN IVP For Anxiety 10/17/18 14:30 11/11/18 14:29 Morphine Sulfate (Morphine Sulfate) 2 mg Q4H PRN IVP For Pain 10/31/18 18:15 11/07/18 18:14 10/31/18 18:34 Pantoprazole (Protonix) 40 mg EVERY 12 HOURS ORAL 10/28/18 21:00 11/27/18 20:59 11/01/18 08:56 Phytonadione 1 mg/ Dextrose 55.5 ml @ 222 mls/hr ONCE ONCE IVPB 11/01/18 13:00 11/01/18 13:14 Rifaximin (Xifaxan) 550 mg EVERY 12 HOURS ORAL 10/27/18 09:00 11/10/18 08:59 11/01/18 08:57 Spironolactone (Aldactone) 100 mg DAILY ORAL 10/27/18 09:00 11/22/18 09:44 11/01/18 08:56 Subjective ROS Limited/Unobtainable: No Allergies: Coded Allergies: No Known Allergies (Unverified , 05/06/18) Objective Last 24 Hour Vital Signs Date Time Temp Pulse Resp B/P (MAP) Pulse Ox O2 Delivery O2 Flow Rate FiO2 11/04/18 16:36 100 11/04/18 16:00 97.9 123 22 120/58 (78) 96 11/04/18 15:26 121 11/04/18 12:00 98.0 117 21 108/67 (81) 98 11/04/18 12:00 Nasal Cannula 2.0 11/04/18 11:33 119 11/04/18 09:36 95 11/04/18 08:00 98.1 119 22 133/74 (93) 93 11/04/18 08:00 Nasal Cannula 2.0 11/04/18 07:48 119 11/04/18 04:00 98.1 117 16 128/68 (88) 93 11/04/18 04:00 114 11/04/18 04:00 Nasal Cannula 2.0 11/04/18 00:00 Nasal Cannula 2.0 11/04/18 00:00 98.1 111 16 130/79 (96) 94 11/04/18 00:00 107 11/03/18 20:14 Nasal Cannula 2.0 28 11/03/18 20:14 95 20 Nasal Cannula 2.0 28 11/03/18 20:14 96 Nasal Cannula 2.0 28 11/03/18 20:00 Nasal Cannula 2.0 11/03/18 20:00 98.1 114 22 118/61 (80) 95 11/03/18 20:00 111 Intake and Output 11/03/18 11/04/18 19:00 07:00 Intake Total 480 ml Output Total 600 ml 400 ml Balance -120 ml -400 ml Intake Oral 480 ml Output Urine Total 600 ml 400 ml Laboratory Tests 11/04/18 10:50: White Blood Count 14.8H, Red Blood Count 2.91L, Hemoglobin 8.6L, Hematocrit 28.3L, Mean Corpuscular Volume 97, Mean Corpuscular Hemoglobin 29.7, Mean Corpuscular Hemoglobin Concent 30.4L, Red Cell Distribution Width 23.6H, Platelet Count 107L, Mean Platelet Volume 6.4L, Neutrophils (%) (Auto) 77.3H, Lymphocytes (%) (Auto) 13.5L, Monocytes (%) (Auto) 5.3, Eosinophils (%) (Auto) 2.2, Basophils (%) (Auto) 1.6, Sodium Level 142, Potassium Level 3.8, Chloride Level 105, Carbon Dioxide Level 27, Anion Gap 10, Blood Urea Nitrogen 17, Creatinine 1.7H, Estimat Glomerular Filtration Rate 30.9, Glucose Level 134H, Uric Acid 9.0H, Calcium Level 10.1, Phosphorus Level 3.4, Magnesium Level 1.9, Total Bilirubin 11.1H, Direct Bilirubin 7.8H, Aspartate Amino Transf (AST/SGOT) 124H, Alanine Aminotransferase (ALT/SGPT) 60, Alkaline Phosphatase 372H, C- Reactive Protein, Quantitative 7.6H, Pro-B-Type Natriuretic Peptide 353H, Total Protein 6.2L, Albumin 2.3L, Globulin 3.9, Albumin/Globulin Ratio 0.6L, Digoxin Level 1.3 11/04/18 12:10: Ammonia 120H Current Medications Medications (Trade) Dose Ordered Sig/Patricia Route PRN Reason Start Time Stop Time Status Last Admin Dose Admin Chlorhexidine Gluconate (Nguyen-Hex 2%) 1 applic DAILY@2000 TOPIC 11/02/18 20:00 11/09/18 19:59 11/03/18 20:52 Ciprofloxacin (Cipro 250mg tab) 250 mg EVERY 12 HOURS ORAL 11/02/18 21:00 11/08/18 20:59 11/04/18 09:32 Dextrose (Dextrose 50%) 25 ml Q30M PRN IV Hypoglycemia 11/02/18 15:15 11/10/18 13:44 Dextrose (Dextrose 50%) 50 ml Q30M PRN IV Hypoglycemia 11/02/18 15:15 11/10/18 13:44 Digoxin (Lanoxin) 0.125 mg DAILY ORAL 11/04/18 09:00 11/15/18 08:59 11/04/18 09:36 Diphenhydramine HCl (Benadryl) 25 mg Q6H PRN IVP Itching 11/02/18 16:00 11/08/18 15:59 Furosemide (Lasix) 20 mg DAILY IV 11/03/18 09:00 12/03/18 08:59 11/04/18 09:32 Insulin Aspart (NovoLOG) BEFORE MEALS AND HS SUBQ 11/02/18 16:30 11/10/18 16:29 11/04/18 17:00 Lactulose (Cephulac) 30 gm EVERY 8 HOURS ORAL 11/02/18 22:00 11/12/18 17:59 11/04/18 14:16 Ondansetron HCl (Zofran) 4 mg Q6H PRN IVP Nausea & Vomiting 11/02/18 15:48 12/02/18 15:47 11/03/18 17:50 Pantoprazole (Protonix) 40 mg Q12HR ORAL 11/03/18 21:00 11/27/18 20:59 11/04/18 09:32 Rifaximin (Xifaxan) 550 mg EVERY 12 HOURS ORAL 11/02/18 21:00 11/10/18 08:59 11/04/18 09:32 Spironolactone (Aldactone) 100 mg DAILY ORAL 11/03/18 09:00 11/22/18 09:44 11/04/18 09:33 Tramadol HCl (Ultram) 50 mg Q6H PRN ORAL For Pain 11/03/18 16:45 11/10/18 16:44 Vishnu Jurado MD Nov 04, 2018 18:01
--- NOTE | 2018-11-04 19:13 | General Progress Note ---
Assessment/Plan Assessment/Plan Assessment/Plan Problems: (1) Shock liver ICD Codes: K72.00 - Acute and subacute hepatic failure without coma SNOMED: 765635392 (2) Liver cirrhosis ICD Codes: K74.60 - Unspecified cirrhosis of liver SNOMED: 71355879 (3) Septic shock ICD Codes: A41.9 - Sepsis, unspecified organism; R65.21 - Severe sepsis with septic shock SNOMED: 20661288 (4) Sepsis ICD Codes: A41.9 - Sepsis, unspecified organism SNOMED: 78990512 (5) Respiratory disorder with ventilator dependence ICD Codes: J98.9 - Respiratory disorder, unspecified; Z99.11 - Dependence on respirator [ventilator] status SNOMED: 83975129, 898089281 (6) Normocytic anemia ICD Codes: D64.9 - Anemia, unspecified SNOMED: 887426066 Status: unchanged (7) Ascites and Edema Assessment/Plan ultram for pain ppi monitor H&H work up for elevated CEA when more stable xifaxan and lactulose Follow labs OLT eval after d/c Subjective Allergies: Coded Allergies: No Known Allergies (Unverified , 05/06/18) Subjective debilitated woman more awake today family at bedside - advised to seek OLT poor po Objective Last 24 Hour Vital Signs Date Time Temp Pulse Resp B/P (MAP) Pulse Ox O2 Delivery O2 Flow Rate FiO2 11/04/18 16:36 100 11/04/18 16:00 Nasal Cannula 2.0 11/04/18 16:00 97.9 123 22 120/58 (78) 96 11/04/18 15:26 121 11/04/18 12:00 98.0 117 21 108/67 (81) 98 11/04/18 12:00 Nasal Cannula 2.0 11/04/18 11:33 119 11/04/18 09:36 95 11/04/18 08:00 98.1 119 22 133/74 (93) 93 11/04/18 08:00 Nasal Cannula 2.0 11/04/18 07:48 119 11/04/18 04:00 98.1 117 16 128/68 (88) 93 11/04/18 04:00 114 11/04/18 04:00 Nasal Cannula 2.0 11/04/18 00:00 Nasal Cannula 2.0 11/04/18 00:00 98.1 111 16 130/79 (96) 94 11/04/18 00:00 107 11/03/18 20:14 Nasal Cannula 2.0 28 11/03/18 20:14 95 20 Nasal Cannula 2.0 28 11/03/18 20:14 96 Nasal Cannula 2.0 28 11/03/18 20:00 Nasal Cannula 2.0 11/03/18 20:00 98.1 114 22 118/61 (80) 95 11/03/18 20:00 111 Intake and Output 11/03/18 11/04/18 19:00 07:00 Intake Total 480 ml Output Total 600 ml 400 ml Balance -120 ml -400 ml Intake Oral 480 ml Output Urine Total 600 ml 400 ml Laboratory Tests 11/04/18 10:50: White Blood Count 14.8H, Red Blood Count 2.91L, Hemoglobin 8.6L, Hematocrit 28.3L, Mean Corpuscular Volume 97, Mean Corpuscular Hemoglobin 29.7, Mean Corpuscular Hemoglobin Concent 30.4L, Red Cell Distribution Width 23.6H, Platelet Count 107L, Mean Platelet Volume 6.4L, Neutrophils (%) (Auto) 77.3H, Lymphocytes (%) (Auto) 13.5L, Monocytes (%) (Auto) 5.3, Eosinophils (%) (Auto) 2.2, Basophils (%) (Auto) 1.6, Sodium Level 142, Potassium Level 3.8, Chloride Level 105, Carbon Dioxide Level 27, Anion Gap 10, Blood Urea Nitrogen 17, Creatinine 1.7H, Estimat Glomerular Filtration Rate 30.9, Glucose Level 134H, Uric Acid 9.0H, Calcium Level 10.1, Phosphorus Level 3.4, Magnesium Level 1.9, Total Bilirubin 11.1H, Direct Bilirubin 7.8H, Aspartate Amino Transf (AST/SGOT) 124H, Alanine Aminotransferase (ALT/SGPT) 60, Alkaline Phosphatase 372H, C- Reactive Protein, Quantitative 7.6H, Pro-B-Type Natriuretic Peptide 353H, Total Protein 6.2L, Albumin 2.3L, Globulin 3.9, Albumin/Globulin Ratio 0.6L, Digoxin Level 1.3 11/04/18 12:10: Ammonia 120H Height (Feet): 5 Height (Inches): 1.00 Weight (Pounds): 235 Objective Obese L woman sleepy NCAT, (+) icteric supple Coarse BS RR abd distended, dull to percussion (++) edema Kiah Poe MD Nov 04, 2018 19:13
--- NOTE | 2018-11-04 19:40 | NUR ---
NURSE NOTES: Report Received from KARI Barbosa. The patient is awake and resting in bed. Patient alert and oriented x4. Patient does not display any signs of distress or SOB. Bed in the lowest position and call light within reach.
--- NOTE | 2018-11-04 19:42 | NUR ---
HAND-OFF: Report given to KARI Hay.
[2018-11-04 20:00] VITALS: BP 120/63
--- NOTE | 2018-11-04 20:30 | NUR ---
HAND-OFF: Report given to KARI Mccoy. Patient is resting in bed. patient states she is anxious. Endorse to KARI Mccoy.
--- NOTE | 2018-11-04 21:11 | Surgery Progress Note ---
Surgery Progress Note Subjective Additional Comments worsening LFT's. no n/v/f/c. tolerating diet. states she wants to go home. Objective Last 24 Hour Vital Signs Date Time Temp Pulse Resp B/P (MAP) Pulse Ox O2 Delivery O2 Flow Rate FiO2 11/04/18 20:25 105 20 Nasal Cannula 2.0 28 11/04/18 20:25 96 Nasal Cannula 2.0 28 11/04/18 20:25 Nasal Cannula 2.0 28 11/04/18 16:36 100 11/04/18 16:00 Nasal Cannula 2.0 11/04/18 16:00 97.9 123 22 120/58 (78) 96 11/04/18 15:26 121 11/04/18 12:00 98.0 117 21 108/67 (81) 98 11/04/18 12:00 Nasal Cannula 2.0 11/04/18 11:33 119 11/04/18 09:36 95 11/04/18 08:00 98.1 119 22 133/74 (93) 93 11/04/18 08:00 Nasal Cannula 2.0 11/04/18 07:48 119 11/04/18 04:00 98.1 117 16 128/68 (88) 93 11/04/18 04:00 114 11/04/18 04:00 Nasal Cannula 2.0 11/04/18 00:00 Nasal Cannula 2.0 11/04/18 00:00 98.1 111 16 130/79 (96) 94 11/04/18 00:00 107 I&O Intake and Output 11/03/18 11/04/18 19:00 07:00 Intake Total 480 ml Output Total 600 ml 400 ml Balance -120 ml -400 ml Intake Oral 480 ml Output Urine Total 600 ml 400 ml Cardiovascular: RSR Respiratory: clear Abdomen: soft, non-tender, present bowel sounds, non-distended Extremities: no tenderness, no cyanosis Laboratory Tests Test 11/04/18 10:50 11/04/18 12:10 White Blood Count 14.8 K/UL (4.8-10.8) H Red Blood Count 2.91 M/UL (4.20-5.40) L Hemoglobin 8.6 G/DL (12.0-16.0) L Hematocrit 28.3 % (37.0-47.0) L Mean Corpuscular Volume 97 FL (80-99) Mean Corpuscular Hemoglobin 29.7 PG (27.0-31.0) Mean Corpuscular Hemoglobin Concent 30.4 G/DL (32.0-36.0) L Red Cell Distribution Width 23.6 % (11.6-14.8) H Platelet Count 107 K/UL (150-450) L Mean Platelet Volume 6.4 FL (6.5-10.1) L Neutrophils (%) (Auto) 77.3 % (45.0-75.0) H Lymphocytes (%) (Auto) 13.5 % (20.0-45.0) L Monocytes (%) (Auto) 5.3 % (1.0-10.0) Eosinophils (%) (Auto) 2.2 % (0.0-3.0) Basophils (%) (Auto) 1.6 % (0.0-2.0) Sodium Level 142 MMOL/L (136-145) Potassium Level 3.8 MMOL/L (3.5-5.1) Chloride Level 105 MMOL/L (98-107) Carbon Dioxide Level 27 MMOL/L (21-32) Anion Gap 10 mmol/L (5-15) Blood Urea Nitrogen 17 mg/dL (7-18) Creatinine 1.7 MG/DL (0.55-1.30) H Estimat Glomerular Filtration Rate 30.9 mL/min (>60) Glucose Level 134 MG/DL (74-106) H Uric Acid 9.0 MG/DL (2.6-7.2) H Calcium Level 10.1 MG/DL (8.5-10.1) Phosphorus Level 3.4 MG/DL (2.5-4.9) Magnesium Level 1.9 MG/DL (1.8-2.4) Total Bilirubin 11.1 MG/DL (0.2-1.0) H Direct Bilirubin 7.8 MG/DL (0.0-0.3) H Aspartate Amino Transf (AST/SGOT) 124 U/L (15-37) H Alanine Aminotransferase (ALT/SGPT) 60 U/L (12-78) Alkaline Phosphatase 372 U/L (46-116) H C-Reactive Protein, Quantitative 7.6 mg/dL (0.00-0.90) H Pro-B-Type Natriuretic Peptide 353 pg/mL (0-125) H Total Protein 6.2 G/DL (6.4-8.2) L Albumin 2.3 G/DL (3.4-5.0) L Globulin 3.9 g/dL Albumin/Globulin Ratio 0.6 (1.0-2.7) L Digoxin Level 1.3 NG/ML (0.9-2.0) Ammonia 120 umol/L (11-32) H Plan Problems: (1) Multiple injuries due to trauma (2) Sepsis Assessment & Plan: Labs noted lactic acidosis improved with resuscitation CT findings: Limited assessment of the GI tract, due to lack of enteric contrast administration. Exam is also limited due to patient motion artifact and lack of IV contrast administration Evidence of hepatic cirrhosis Small amount of ascites, likely related to the above Surgically absent gallbladder Bilateral basilar pulmonary parenchymal atelectatic changes and possible patchy consolidation Minimal edema of the bilateral flank subcutaneous fat Other findings as noted, including degenerative spondylosis, right hepatic lobe capsular calcification, Quiroz catheter has made a great improvement. denies abd pain. labs improved. decompensated liver cirrhosis LFT's abnormal leukocytosis overall improved but prognosis still guarded Limited assessment of the GI tract, due to lack of enteric contrast administration Abdominal ascites, increased in extent since prior study Increased edema of the subcutaneous fat, since previous study Hepatic surface nodularity, consistent with cirrhosis, also previously reported Borderline splenomegaly Bilateral basilar pulmonary patchy consolidation and atelectasis as well as some congestion. Findings as noted, including degenerative spondylosis, PICC, Quiroz catheter, rectal tube, nasogastric tube CT chest noted ng tube removed Continue with p.o. diet. goals of care for patient; liver center? comfort? snf? pending decision - likely transfer to SNF. -trend labs will follow with recs thank you (3) Liver cirrhosis Josh Samuel Nov 04, 2018 21:11
[2018-11-04] MEDS: Dyna-Hex 2% Top Sol 2oz TOPIC SCH (21:13)
[2018-11-05] VITALS: BP 131/72
[2018-11-05 04:00] VITALS: BP 135/56
[2018-11-05] MEDS: Lactulose 20gm/30ml UDC ORAL SCH ×2 (06:46→13:55)
[2018-11-05] MEDS: NovoLOG Insulin Flexpen SUBQ SCH ×3 (06:47→16:43)
--- NOTE | 2018-11-05 07:12 | NUR ---
Report given to KARI Jacobs. Endorsed plane of care. Addendum: 11/05/18 at 0922 by JEANNIE CYR RN HAND-OFF: Report given to KARI Jacobs. Endorsed plane of care.
[2018-11-05 08:00] VITALS: BP 140/70
[2018-11-05] MEDS: Spironolactone 50mg tab ORAL SCH (08:20)
[2018-11-05] MEDS: Digoxin 0.125mg tab ORAL SCH (08:20)
--- NOTE | 2018-11-05 08:20 | NUR ---
NURSE NOTES: received pt in the bed, awake, confused, vital signs stable, family in the room,refuse breakfast, yellow skin, abdomen distended, edema both feet, no SOB, Quiroz catheter, rectal tube,bed in low position, call light within reach.
--- NOTE | 2018-11-05 08:23 | NUR ---
CASE MANAGEMENT:REVIEW 11/05/18 SI: SEPTIC SHOCK. PNA. JONNATHAN 98.5 119 20 140/70 100% ON 2L/NC WBC+14.8 H/H-8.6/28.3 PLT-107 CR+1.7 AMMONIA+120 IS: DIGOXIN PO QD PROTONIX PO Q12 IV LASIX QD ALDACTONE PO QD LACTULOSE PO Q8HRS CIPRO PO Q12 : TELEMETRY STATUS DCP; PATIENT IS FROM HOME
[2018-11-05 08:35] LABS: BASOPHILS % (AUTO) 0.9 % (0.0-2.0); EOSINOPHILS % (AUTO) 1.9 % (0.0-3.0); HEMATOCRIT 27.4 % (37.0-47.0); HEMOGLOBIN 8.6 G/DL (12.0-16.0); LYMPHOCYTES % (AUTO) 13.7 % (20.0-45.0); MEAN CORPUSCULAR VOLUME 97 FL (80-99); MONOCYTES % (AUTO) 5.4 % (1.0-10.0); NEUTROPHILS % (AUTO) 78.1 % (45.0-75.0); PLATELET COUNT 109 K/UL (150-450); RED BLOOD COUNT 2.83 M/UL (4.20-5.40); RED CELL DISTRIBUTION WIDTH 23.8 % (11.6-14.8); WHITE BLOOD COUNT 13.8 K/UL (4.8-10.8)
[2018-11-05] MEDS: DiphenhydrAMINE 50mg/ml Inj IVP PRN ×2 (10:11→16:28)
--- NOTE | 2018-11-05 10:47 | General Progress Note ---
Assessment/Plan Assessment/Plan # Leukocytosis/elevated white blood cell count, unspecified likely related to underlying stress reaction, or underlying infection --> have reviewed peripheral smear and bandemia/neutrophilia noted --> continue antibiotics if they have been started by ID team (currently theu have been stopped) --> monitor for resolution --> WBC trend: 14-->10-->15-->12-->11-->10-->8.6-->8.1-->10-->12.3-->13.8 # Thrombocytopenia - potential causes multifactorial but most likely contributor is cirrhosis, that is chronic, elevated bili with ascites --> Hep panel and HIV negative --> CT a/p show cirrhosis as well as us --> Peripheral smear ordered to evaluate for blasts /schistocytes is negative --> abx and other meds have been reviewed --> ok for ppx if plt >50k w/ either heparin or lovenox --> Transfuse if Plt < 20k and fever, or if Plt < 10k without fever --> HIT negative, hold off heparin --> Plt trend : 54-->92-->106-->113-->62-->61-->61k-->74k-->92k-->107k-->109k --> awaiting transfer to higher level of care for transplant of the liver # Anemia of iron deficiency as noted with low % sat and tibc elevated --> Anemia workup has been reviewed --> No evidence of hemolysis is noted, peripheral smear has been reviewed. --> Hgb goal >7. Transfuse prn. --> Iron IV X 5 days already given --> Medications have been reviewed # Elevated tumor markers, CEA of 10.5 --> Ct of abdomen/pelvis reviewed and is negative --> as per gi recs --> scope as needed # Sepsis likely contributing to low plts --> on abx as needed # Shock, hypovolemic and distributive --> per id and pulm/cc care # Multisystem organ failure. # Lactic acidosis. # JONNATHAN. # Abnormal LFTs, likely shock liver. # Abnormal troponin, likely demand ischemia. # Obesity. # Respiratory failure on vent --> now extubated # Afib on meds as per cards The timing of this note does not necessarily reflect the time of the patient was seen. Greatly appreciate consultation! Subjective Constitutional: Denies: no symptoms, chills, diaphoresis, fever, malaise, weakness, other HEENT: Denies: no symptoms, eye pain, blurred vision, tearing, double vision, ear pain, ear discharge, nose pain, nose congestion, throat pain, throat swelling, mouth pain, mouth swelling, other Cardiovascular: Denies: no symptoms, chest pain, edema, irregular heart rate, lightheadedness, palpitations, syncope, other Respiratory: Denies: no symptoms, cough, orthopnea, shortness of breath, SOB with excertion, SOB at rest, sputum, stridor, wheezing, other Gastrointestinal/Abdominal: Denies: no symptoms, abdomen distended, abdominal pain, black stools, tarry stools, blood in stool, constipated, diarrhea, difficulty swallowing, nausea, poor appetite, poor fluid intake, rectal bleeding , vomiting, other Genitourinary: Denies: no symptoms, burning, discharge, frequency, flank pain, hematuria, incontinence, pain, urgency, other Neurologic/Psychiatric: Denies: no symptoms, anxiety, depressed, emotional problems, headache, numbness, paresthesia, pre-existing deficit, seizure, tingling, tremors, weakness, other Endocrine: Denies: no symptoms, excessive sweating, flushing, intolerance to cold, intolerance to heat, increased hunger, increased thirst, increased urine, unexplained weight gain, unexplained weight loss, other Allergies: Coded Allergies: No Known Allergies (Unverified , 05/06/18) Subjective 3/: Pt was seen in ICU on Vent and off pressors, developed atrial fib, wbc trending down to 13, plt trending down to 60 3: remains in the icu, monitoring labs, plts stabilizing, remains critically ill, cea elev 3: In ICU on Vent and off pressors, plt 62, no events 10/16 wbc trending up at 14,plt low at 48,weaning well from vent. no acute events , family at bedside 10/17: plts remain low, no events, weaned off vent, no complaints, off pressors 10/18: seen by bedside, wbc trending up at 15, plt low at 50, no events, needs video swallow. NGT 10/19: wbc remains elevated, plt 54, no acute distress reported 10/21: seen by bedside, still with lots of NG tube output, wbc 12, plt trending up 10/22: awake, alert,has high NG tube residual, wbc 11, no events 10/23: comfortable, wbc trending down, plt trending up , no events 10/24: Seen by bedside, leukocytosis resolved, no events 10/25: awake, comfortable, Surgery removed NGT, no events 3.15: NG tube was removed yesterday and patient started on diet, comfortable, no events, plt trending up 10/28: seen by bedside, lethargic, no events 10/29: remains extubated, cbc reviewed, bili remains elevated, lethargic, on abx 10/30: awake, tolerating some diet, no events, plt trending down 10/31: No overnight events reported, awake and comfortable. 11/01: awaiting transfer to higher level of care for transplant, no other events 11/02: transferred to [facility], checking dig level, awaiting transfer to [facility] 11/03: no events, in bed sleeping this am, without complaints 11/04: no events, tolerating diet well 11/05: remains with low platelets, inr is high 1.8 Objective Last 24 Hour Vital Signs Date Time Temp Pulse Resp B/P (MAP) Pulse Ox O2 Delivery O2 Flow Rate FiO2 11/05/18 09:40 96 Nasal Cannula 2.0 28 11/05/18 09:40 Nasal Cannula 2.0 28 11/05/18 09:40 115 24 Nasal Cannula 2.0 28 11/05/18 08:20 119 11/05/18 08:00 98.5 119 20 140/70 (93) 100 11/05/18 04:00 115 11/05/18 04:00 97.9 115 16 135/56 (82) 95 11/05/18 00:00 97.8 118 15 131/72 (91) 95 11/05/18 00:00 118 11/04/18 20:25 105 20 Nasal Cannula 2.0 28 11/04/18 20:25 96 Nasal Cannula 2.0 28 11/04/18 20:25 Nasal Cannula 2.0 28 11/04/18 20:00 99.3 126 13 120/63 (82) 95 11/04/18 19:10 126 11/04/18 16:36 100 11/04/18 16:00 Nasal Cannula 2.0 11/04/18 16:00 97.9 123 22 120/58 (78) 96 11/04/18 15:26 121 11/04/18 12:00 98.0 117 21 108/67 (81) 98 11/04/18 12:00 Nasal Cannula 2.0 11/04/18 11:33 119 Intake and Output 11/04/18 11/05/18 19:00 07:00 Intake Total 200 ml Output Total 800 ml 550 ml Balance -600 ml -550 ml Other 200 ml Output Urine Total 800 ml 550 ml # Bowel Movements 2 Laboratory Tests 11/04/18 10:50: White Blood Count 14.8H, Red Blood Count 2.91L, Hemoglobin 8.6L, Hematocrit 28.3L, Mean Corpuscular Volume 97, Mean Corpuscular Hemoglobin 29.7, Mean Corpuscular Hemoglobin Concent 30.4L, Red Cell Distribution Width 23.6H, Platelet Count 107L, Mean Platelet Volume 6.4L, Neutrophils (%) (Auto) 77.3H, Lymphocytes (%) (Auto) 13.5L, Monocytes (%) (Auto) 5.3, Eosinophils (%) (Auto) 2.2, Basophils (%) (Auto) 1.6, Sodium Level 142, Potassium Level 3.8, Chloride Level 105, Carbon Dioxide Level 27, Anion Gap 10, Blood Urea Nitrogen 17, Creatinine 1.7H, Estimat Glomerular Filtration Rate 30.9, Glucose Level 134H, Uric Acid 9.0H, Calcium Level 10.1, Phosphorus Level 3.4, Magnesium Level 1.9, Total Bilirubin 11.1H, Direct Bilirubin 7.8H, Aspartate Amino Transf (AST/SGOT) 124H, Alanine Aminotransferase (ALT/SGPT) 60, Alkaline Phosphatase 372H, C- Reactive Protein, Quantitative 7.6H, Pro-B-Type Natriuretic Peptide 353H, Total Protein 6.2L, Albumin 2.3L, Globulin 3.9, Albumin/Globulin Ratio 0.6L, Digoxin Level 1.3 11/04/18 12:10: Ammonia 120H 11/05/18 07:50: White Blood Count 13.8H, Red Blood Count 2.83L, Hemoglobin 8.6L, Hematocrit 27.4L, Mean Corpuscular Volume 97, Mean Corpuscular Hemoglobin 30.4, Mean Corpuscular Hemoglobin Concent 31.4L, Red Cell Distribution Width 23.8H, Platelet Count 109L, Mean Platelet Volume 5.8L, Neutrophils (%) (Auto) 78.1H, Lymphocytes (%) (Auto) 13.7L, Monocytes (%) (Auto) 5.4, Eosinophils (%) (Auto) 1.9, Basophils (%) (Auto) 0.9 Height (Feet): 5 Height (Inches): 1.00 Weight (Pounds): 238 Objective PHYSICAL EXAMINATION: VITAL SIGNS: reviewed, saturating 98% on NC++, GENERAL: She is an obese female, confused. HEENT: Normocephalic and atraumatic. Oropharynx is clear with dry mucous membranes., NECK: Supple without lymphadenopathy or JVP. CHEST: Clear. HEART: Regular. ABDOMEN: Benign. EXTREMITIES: No cyanosis, clubbing, or edema. There are some ecchymoses Kurtis Villagomez MD Nov 05, 2018 10:47
--- NOTE | 2018-11-05 10:57 | Infectious Diseases Prog Note ---
Assessment/Plan Assessment/Plan A: 1. Septic Shock resolved.culture are negative so far 2. aspiration pneumonia. 3. acute renal failure , resolved 4. Diabetes mellitus. 5. Obesity. 6. Lactic acidosis. 7. Anemia.s/p transfusion 8. Cirrhosis with ascites 9. Enteritis, ileus resolved 10. Leukocytosis worsening 11. GI bleeding 12. UTI RECOMMENDATION: Discontinue Cipro F/U CBC remove PICC line before discharge Subjective ROS Limited/Unobtainable: Yes Constitutional: Reports: anorexia Skin: Reports: other - itching Allergies: Coded Allergies: No Known Allergies (Unverified , 05/06/18) Objective Vital Signs Last 24 Hour Vital Signs Date Time Temp Pulse Resp B/P (MAP) Pulse Ox O2 Delivery O2 Flow Rate FiO2 11/05/18 09:40 96 Nasal Cannula 2.0 28 11/05/18 09:40 Nasal Cannula 2.0 28 11/05/18 09:40 115 24 Nasal Cannula 2.0 28 11/05/18 08:20 119 11/05/18 08:00 98.5 119 20 140/70 (93) 100 11/05/18 04:00 115 11/05/18 04:00 97.9 115 16 135/56 (82) 95 11/05/18 00:00 97.8 118 15 131/72 (91) 95 11/05/18 00:00 118 11/04/18 20:25 105 20 Nasal Cannula 2.0 28 11/04/18 20:25 96 Nasal Cannula 2.0 28 11/04/18 20:25 Nasal Cannula 2.0 28 11/04/18 20:00 99.3 126 13 120/63 (82) 95 11/04/18 19:10 126 11/04/18 16:36 100 11/04/18 16:00 Nasal Cannula 2.0 11/04/18 16:00 97.9 123 22 120/58 (78) 96 11/04/18 15:26 121 11/04/18 12:00 98.0 117 21 108/67 (81) 98 11/04/18 12:00 Nasal Cannula 2.0 11/04/18 11:33 119 Height (Feet): 5 Height (Inches): 1.00 Weight (Pounds): 238 HEENT: other - icterus sclera Respiratory/Chest: lungs clear Cardiovascular: tachycardia, other - PICC line Abdomen: soft, non tender Extremities: other - generalized edema Neurologic/Psychiatric: alert, responsive Laboratory Tests Test 11/04/18 12:10 11/05/18 07:50 Ammonia 120 umol/L (11-32) H White Blood Count 13.8 K/UL (4.8-10.8) H Red Blood Count 2.83 M/UL (4.20-5.40) L Hemoglobin 8.6 G/DL (12.0-16.0) L Hematocrit 27.4 % (37.0-47.0) L Mean Corpuscular Volume 97 FL (80-99) Mean Corpuscular Hemoglobin 30.4 PG (27.0-31.0) Mean Corpuscular Hemoglobin Concent 31.4 G/DL (32.0-36.0) L Red Cell Distribution Width 23.8 % (11.6-14.8) H Platelet Count 109 K/UL (150-450) L Mean Platelet Volume 5.8 FL (6.5-10.1) L Neutrophils (%) (Auto) 78.1 % (45.0-75.0) H Lymphocytes (%) (Auto) 13.7 % (20.0-45.0) L Monocytes (%) (Auto) 5.4 % (1.0-10.0) Eosinophils (%) (Auto) 1.9 % (0.0-3.0) Basophils (%) (Auto) 0.9 % (0.0-2.0) Current Medications Medications (Trade) Dose Ordered Sig/Patricia Route PRN Reason Start Time Stop Time Status Last Admin Dose Admin Chlorhexidine Gluconate (Nguyen-Hex 2%) 1 applic DAILY@1999 TOPIC 11/02/18 20:00 11/09/18 19:59 11/04/18 21:13 Ciprofloxacin (Cipro 250mg tab) 250 mg EVERY 12 HOURS ORAL 11/02/18 21:00 11/08/18 20:59 11/05/18 08:21 Dextrose (Dextrose 50%) 25 ml Q30M PRN IV Hypoglycemia 11/02/18 15:15 11/10/18 13:44 Dextrose (Dextrose 50%) 50 ml Q30M PRN IV Hypoglycemia 11/02/18 15:15 11/10/18 13:44 Digoxin (Lanoxin) 0.125 mg DAILY ORAL 11/04/18 09:00 11/15/18 08:59 11/05/18 08:20 Diphenhydramine HCl (Benadryl) 25 mg Q6H PRN IVP Itching 11/02/18 16:00 11/08/18 15:59 11/05/18 10:11 Furosemide (Lasix) 20 mg DAILY IV 11/03/18 09:00 12/03/18 08:59 11/05/18 08:21 Insulin Aspart (NovoLOG) BEFORE MEALS AND HS SUBQ 11/02/18 16:30 11/10/18 16:29 11/05/18 06:47 Lactulose (Cephulac) 30 gm EVERY 8 HOURS ORAL 11/02/18 22:00 11/12/18 17:59 11/05/18 06:46 Ondansetron HCl (Zofran) 4 mg Q6H PRN IVP Nausea & Vomiting 11/02/18 15:48 12/02/18 15:47 11/05/18 10:11 Pantoprazole (Protonix) 40 mg Q12HR ORAL 11/03/18 21:00 11/27/18 20:59 11/05/18 08:20 Rifaximin (Xifaxan) 550 mg EVERY 12 HOURS ORAL 11/02/18 21:00 11/10/18 08:59 11/05/18 08:21 Spironolactone (Aldactone) 100 mg DAILY ORAL 11/03/18 09:00 11/22/18 09:44 11/05/18 08:20 Tramadol HCl (Ultram) 50 mg Q6H PRN ORAL For Pain 11/03/18 16:45 11/10/18 16:44 Wesley Akers MD Nov 05, 2018 10:57
--- NOTE | 2018-11-05 11:46 | GI Progress Note ---
Assessment/Plan Problems: (1) Shock liver ICD Codes: K72.00 - Acute and subacute hepatic failure without coma SNOMED: 611767735 (2) Liver cirrhosis ICD Codes: K74.60 - Unspecified cirrhosis of liver SNOMED: 49328253 (3) Septic shock ICD Codes: A41.9 - Sepsis, unspecified organism; R65.21 - Severe sepsis with septic shock SNOMED: 07145477 (4) Sepsis ICD Codes: A41.9 - Sepsis, unspecified organism SNOMED: 23320450 (5) Respiratory disorder with ventilator dependence ICD Codes: J98.9 - Respiratory disorder, unspecified; Z99.11 - Dependence on respirator [ventilator] status SNOMED: 82451329, 140984180 (6) Normocytic anemia ICD Codes: D64.9 - Anemia, unspecified SNOMED: 663032384 Status: unchanged Status Narrative Discussed with Dr. Reynolds. Assessment/Plan unsuccessful paracentesis due to limited ascites JAD, SMA, AMA negative hepatitis panel negative Iron level was within normal limits, negative for hemochromatosis OB stool positive x2 Antitrypsin negative Ceruloplasmin negative AFP pending MELD score now 26 Cirrhosis defer biopsy given patient has known history of cirrhosis as seen on recent CT and US. Recommend for outpatient referral for liver transplant evaluation ultram for pain ppi monitor H&H work up for elevated CEA when more stable xifaxan and lactulose Follow labs The patient was seen and examined at bedside and all new and available data was reviewed in the patients chart. I agree with the above findings, impression and plan. (Patient seen earlier today. Signature stamp does not reflect patient encounter time.). - Samuel Reynolds MD Subjective Subjective abdominal pain after p.o. intake Objective Last 24 Hour Vital Signs Date Time Temp Pulse Resp B/P (MAP) Pulse Ox O2 Delivery O2 Flow Rate FiO2 11/05/18 09:40 96 Nasal Cannula 2.0 28 11/05/18 09:40 Nasal Cannula 2.0 28 11/05/18 09:40 115 24 Nasal Cannula 2.0 28 11/05/18 08:20 119 11/05/18 08:00 117 11/05/18 08:00 98.5 119 20 140/70 (93) 100 11/05/18 04:00 115 11/05/18 04:00 97.9 115 16 135/56 (82) 95 11/05/18 00:00 97.8 118 15 131/72 (91) 95 11/05/18 00:00 118 11/04/18 20:25 105 20 Nasal Cannula 2.0 28 11/04/18 20:25 96 Nasal Cannula 2.0 28 11/04/18 20:25 Nasal Cannula 2.0 28 11/04/18 20:00 99.3 126 13 120/63 (82) 95 11/04/18 19:10 126 11/04/18 16:36 100 11/04/18 16:00 Nasal Cannula 2.0 11/04/18 16:00 97.9 123 22 120/58 (78) 96 11/04/18 15:26 121 11/04/18 12:00 98.0 117 21 108/67 (81) 98 11/04/18 12:00 Nasal Cannula 2.0 Intake and Output 11/04/18 11/05/18 19:00 07:00 Intake Total 200 ml Output Total 800 ml 550 ml Balance -600 ml -550 ml Other 200 ml Output Urine Total 800 ml 550 ml # Bowel Movements 2 Laboratory Tests Test 11/04/18 12:10 11/05/18 07:50 Ammonia 120 umol/L (11-32) H White Blood Count 13.8 K/UL (4.8-10.8) H Red Blood Count 2.83 M/UL (4.20-5.40) L Hemoglobin 8.6 G/DL (12.0-16.0) L Hematocrit 27.4 % (37.0-47.0) L Mean Corpuscular Volume 97 FL (80-99) Mean Corpuscular Hemoglobin 30.4 PG (27.0-31.0) Mean Corpuscular Hemoglobin Concent 31.4 G/DL (32.0-36.0) L Red Cell Distribution Width 23.8 % (11.6-14.8) H Platelet Count 109 K/UL (150-450) L Mean Platelet Volume 5.8 FL (6.5-10.1) L Neutrophils (%) (Auto) 78.1 % (45.0-75.0) H Lymphocytes (%) (Auto) 13.7 % (20.0-45.0) L Monocytes (%) (Auto) 5.4 % (1.0-10.0) Eosinophils (%) (Auto) 1.9 % (0.0-3.0) Basophils (%) (Auto) 0.9 % (0.0-2.0) Height (Feet): 5 Height (Inches): 1.00 Weight (Pounds): 238 General Appearance: WD/WN, no apparent distress, alert, confused Cardiovascular: normal rate Respiratory/Chest: normal breath sounds, no respiratory distress Abdominal Exam: normal bowel sounds, non tender, soft Extremities: non-tender Cole Serna NP Nov 05, 2018 11:46
[2018-11-05 12:00] VITALS: BP 123/66
--- NOTE | 2018-11-05 13:12 | Surgery Progress Note ---
Surgery Progress Note Subjective Additional Comments no acute events. labs noted. exam stable. needs referral to liver center for eval soon. Objective Last 24 Hour Vital Signs Date Time Temp Pulse Resp B/P (MAP) Pulse Ox O2 Delivery O2 Flow Rate FiO2 11/05/18 12:00 98.0 117 20 123/66 (85) 99 11/05/18 09:40 96 Nasal Cannula 2.0 28 11/05/18 09:40 Nasal Cannula 2.0 28 11/05/18 09:40 115 24 Nasal Cannula 2.0 28 11/05/18 08:20 119 11/05/18 08:00 117 11/05/18 08:00 98.5 119 20 140/70 (93) 100 11/05/18 04:00 115 11/05/18 04:00 97.9 115 16 135/56 (82) 95 11/05/18 00:00 97.8 118 15 131/72 (91) 95 11/05/18 00:00 118 11/04/18 20:25 105 20 Nasal Cannula 2.0 28 11/04/18 20:25 96 Nasal Cannula 2.0 28 11/04/18 20:25 Nasal Cannula 2.0 28 11/04/18 20:00 99.3 126 13 120/63 (82) 95 11/04/18 19:10 126 11/04/18 16:36 100 11/04/18 16:00 Nasal Cannula 2.0 11/04/18 16:00 97.9 123 22 120/58 (78) 96 11/04/18 15:26 121 I&O Intake and Output 11/04/18 11/05/18 19:00 07:00 Intake Total 200 ml Output Total 800 ml 550 ml Balance -600 ml -550 ml Other 200 ml Output Urine Total 800 ml 550 ml # Bowel Movements 2 Cardiovascular: RSR Respiratory: clear Abdomen: soft, non-tender, present bowel sounds, non-distended Extremities: no tenderness, no cyanosis Laboratory Tests Test 11/05/18 07:50 White Blood Count 13.8 K/UL (4.8-10.8) H Red Blood Count 2.83 M/UL (4.20-5.40) L Hemoglobin 8.6 G/DL (12.0-16.0) L Hematocrit 27.4 % (37.0-47.0) L Mean Corpuscular Volume 97 FL (80-99) Mean Corpuscular Hemoglobin 30.4 PG (27.0-31.0) Mean Corpuscular Hemoglobin Concent 31.4 G/DL (32.0-36.0) L Red Cell Distribution Width 23.8 % (11.6-14.8) H Platelet Count 109 K/UL (150-450) L Mean Platelet Volume 5.8 FL (6.5-10.1) L Neutrophils (%) (Auto) 78.1 % (45.0-75.0) H Lymphocytes (%) (Auto) 13.7 % (20.0-45.0) L Monocytes (%) (Auto) 5.4 % (1.0-10.0) Eosinophils (%) (Auto) 1.9 % (0.0-3.0) Basophils (%) (Auto) 0.9 % (0.0-2.0) Plan Problems: (1) Multiple injuries due to trauma (2) Sepsis Assessment & Plan: Labs noted lactic acidosis improved with resuscitation CT findings: Limited assessment of the GI tract, due to lack of enteric contrast administration. Exam is also limited due to patient motion artifact and lack of IV contrast administration Evidence of hepatic cirrhosis Small amount of ascites, likely related to the above Surgically absent gallbladder Bilateral basilar pulmonary parenchymal atelectatic changes and possible patchy consolidation Minimal edema of the bilateral flank subcutaneous fat Other findings as noted, including degenerative spondylosis, right hepatic lobe capsular calcification, Quiroz catheter has made a great improvement. denies abd pain. labs improved. decompensated liver cirrhosis LFT's abnormal leukocytosis overall improved but prognosis still guarded Limited assessment of the GI tract, due to lack of enteric contrast administration Abdominal ascites, increased in extent since prior study Increased edema of the subcutaneous fat, since previous study Hepatic surface nodularity, consistent with cirrhosis, also previously reported Borderline splenomegaly Bilateral basilar pulmonary patchy consolidation and atelectasis as well as some congestion. Findings as noted, including degenerative spondylosis, PICC, Quiroz catheter, rectal tube, nasogastric tube CT chest noted ng tube removed Continue with p.o. diet. goals of care for patient; liver center? comfort? snf? pending decision - likely transfer to SNF. needs referral to liver center for transplant eval -trend labs will follow with recs thank you (3) Liver cirrhosis Josh Samuel Nov 05, 2018 13:12
--- NOTE | 2018-11-05 13:50 | NUR ---
RD ASSESSMENT & RECOMMENDATIONS SEE CARE ACTIVITY FOR COMPLETE ASSESSMENT DAILY ESTIMATED NEEDS: Needs based on Sepsis, obesity, DM 24-28, 64kg adj kcals/kg 9767-1029 total kcals 1.2-2, 64kg adj g protein/kg 77-128 g total protein Fluid per MD NUTRITION DIAGNOSIS: 1) Swallowing difficulty r/t respiratory status as evidenced by pt is now extubated, off pressors, pt now on puree texture diet w/ NTL. 2) Altered nutrition related lab values r/t critical care. septic shock and multi organ failure as evidenced by critically elev WBC-> now wnl, elev creat kinase (3542), elev LFT's, elev T bili (11.1) elev phos (5.2 -> wnl), elev Creat-> now wnl, elev ammonia (120), elev BNP (6076->658-> 299), elev A1C (11.0), elev bgs (169 182) CURRENT DIET: Low Fat/ Low Chol/ CCHO LOW (pureed, NTL) PO DIET RECOMMENDATIONS: With continued POOR PO INTAKE-> rec Liberalized Regular diet ADDITIONAL RECOMMENDATIONS: * CALIBRATED BED SCALE WTS * MONITOR PO INTAKE -> poor po at this time -> Add Glucerna TID w/ meals (rec Nepro w/ elev K) . * Monitor lytes daily, on lactulose and lasix * Monitor for con't tolerance to diet - pt now c/o abd pain w/ oral intake -> snacks TID in b/w meals
--- NOTE | 2018-11-05 14:00 | NUR ---
NURSE NOTES: vital signs stable, family still at bedside, bed bath given , repositioned, continue monitoring.
--- NOTE | 2018-11-05 14:29 | Cardiac Electrophysiology PN ---
Assessment/Plan Assessment/Plan 1. Atrial fib with RVR. Off Beta janet or CA janet for hypotension. On Dig 0.125 qod. In SR Off Amiodarone for high LFTs 2. S/P Septic shock. On broad spectrum IV antibiotic. Off pressors 3. Troponin leak. The levels are flat and likely due to this patient's sepsis and septic shock. Her echocardiogram showed ejection fraction 60% to 65% and EKG showed no acute ischemic changes. 4. Nonsustained VT. EF 65% 5. Diabetes. 6. Renal failure. 7. Morbid obesity. 8. Dysphagia, NG removed.Not eating much 9. S/P Respiratory failure, Extubated 10. Cirrhosis, high Bilirubin and ascites. On Lasix 20 iv daily and Aldactone 100 daily DW RN and family Subjective Subjective RN and family at bedside.Not eating much Objective Last 24 Hour Vital Signs Date Time Temp Pulse Resp B/P (MAP) Pulse Ox O2 Delivery O2 Flow Rate FiO2 11/05/18 12:00 114 11/05/18 12:00 98.0 117 20 123/66 (85) 99 11/05/18 09:40 96 Nasal Cannula 2.0 28 11/05/18 09:40 Nasal Cannula 2.0 28 11/05/18 09:40 115 24 Nasal Cannula 2.0 28 11/05/18 08:20 119 11/05/18 08:00 117 11/05/18 08:00 98.5 119 20 140/70 (93) 100 11/05/18 04:00 115 11/05/18 04:00 97.9 115 16 135/56 (82) 95 11/05/18 00:00 97.8 118 15 131/72 (91) 95 11/05/18 00:00 118 11/04/18 20:25 105 20 Nasal Cannula 2.0 28 11/04/18 20:25 96 Nasal Cannula 2.0 28 11/04/18 20:25 Nasal Cannula 2.0 28 11/04/18 20:00 99.3 126 13 120/63 (82) 95 11/04/18 19:10 126 11/04/18 16:36 100 11/04/18 16:00 Nasal Cannula 2.0 11/04/18 16:00 97.9 123 22 120/58 (78) 96 11/04/18 15:26 121 Intake and Output 11/04/18 11/05/18 19:00 07:00 Intake Total 200 ml Output Total 800 ml 550 ml Balance -600 ml -550 ml Other 200 ml Output Urine Total 800 ml 550 ml # Bowel Movements 2 Laboratory Tests Test 11/05/18 07:50 White Blood Count 13.8 K/UL (4.8-10.8) H Red Blood Count 2.83 M/UL (4.20-5.40) L Hemoglobin 8.6 G/DL (12.0-16.0) L Hematocrit 27.4 % (37.0-47.0) L Mean Corpuscular Volume 97 FL (80-99) Mean Corpuscular Hemoglobin 30.4 PG (27.0-31.0) Mean Corpuscular Hemoglobin Concent 31.4 G/DL (32.0-36.0) L Red Cell Distribution Width 23.8 % (11.6-14.8) H Platelet Count 109 K/UL (150-450) L Mean Platelet Volume 5.8 FL (6.5-10.1) L Neutrophils (%) (Auto) 78.1 % (45.0-75.0) H Lymphocytes (%) (Auto) 13.7 % (20.0-45.0) L Monocytes (%) (Auto) 5.4 % (1.0-10.0) Eosinophils (%) (Auto) 1.9 % (0.0-3.0) Basophils (%) (Auto) 0.9 % (0.0-2.0) Objective HEAD AND NECK: No JVD.Icteric sclera LUNGS: Coarse rhonchi. CARDIOVASCULAR: Regular S1, S2 with no gallop or murmur. ABDOMEN: Obese. EXTREMITIES: No edema. Sean Montanez MD Nov 05, 2018 14:29
--- NOTE | 2018-11-05 15:07 | Nephrology Progress Note ---
Assessment/Plan Problem List: (1) JONNATHAN (acute kidney injury) Assessment: Cr 1.8 (2) Shock liver (3) Septic shock (4) Respiratory disorder with ventilator dependence (5) Jaundice Assessment - Acute Oliguric Renal Failure Cr down to 1.1 - Respiratory disorder with s/p mechanical ventilator - Septic shock , Leukocytosis resolved - Pneumonia - Liver cirrhosis - Obese - Anemia . Plan PO K as needed check dig level and adjust dig dose transfused 2 units previously K and Phos as needed mag IV as needed Hemodynamic support Pulmonary support Monitor renal parameters avoid nephrotoxics as best as possible per orders discussed with RN Subjective ROS Limited/Unobtainable: No Constitutional: Reports: malaise, other - itching Objective Objective Last 24 Hour Vital Signs Date Time Temp Pulse Resp B/P (MAP) Pulse Ox O2 Delivery O2 Flow Rate FiO2 11/05/18 12:00 114 11/05/18 12:00 98.0 117 20 123/66 (85) 99 11/05/18 09:40 96 Nasal Cannula 2.0 28 11/05/18 09:40 Nasal Cannula 2.0 28 11/05/18 09:40 115 24 Nasal Cannula 2.0 28 11/05/18 08:20 119 11/05/18 08:00 117 11/05/18 08:00 98.5 119 20 140/70 (93) 100 11/05/18 04:00 115 11/05/18 04:00 97.9 115 16 135/56 (82) 95 11/05/18 00:00 97.8 118 15 131/72 (91) 95 11/05/18 00:00 118 11/04/18 20:25 105 20 Nasal Cannula 2.0 28 11/04/18 20:25 96 Nasal Cannula 2.0 28 11/04/18 20:25 Nasal Cannula 2.0 28 11/04/18 20:00 99.3 126 13 120/63 (82) 95 11/04/18 19:10 126 11/04/18 16:36 100 11/04/18 16:00 Nasal Cannula 2.0 11/04/18 16:00 97.9 123 22 120/58 (78) 96 11/04/18 15:26 121 Intake and Output 11/04/18 11/05/18 19:00 07:00 Intake Total 200 ml Output Total 800 ml 550 ml Balance -600 ml -550 ml Other 200 ml Output Urine Total 800 ml 550 ml # Bowel Movements 2 Laboratory Tests 11/05/18 07:50: White Blood Count 13.8H, Red Blood Count 2.83L, Hemoglobin 8.6L, Hematocrit 27.4L, Mean Corpuscular Volume 97, Mean Corpuscular Hemoglobin 30.4, Mean Corpuscular Hemoglobin Concent 31.4L, Red Cell Distribution Width 23.8H, Platelet Count 109L, Mean Platelet Volume 5.8L, Neutrophils (%) (Auto) 78.1H, Lymphocytes (%) (Auto) 13.7L, Monocytes (%) (Auto) 5.4, Eosinophils (%) (Auto) 1.9, Basophils (%) (Auto) 0.9 Height (Feet): 5 Height (Inches): 1.00 Weight (Pounds): 238 General Appearance: no apparent distress, other - Jaundiced Cardiovascular: tachycardia Respiratory/Chest: decreased breath sounds Abdomen: distended Objective NO CHANGE Alex Cueto MD Nov 05, 2018 15:07
--- NOTE | 2018-11-05 15:23 | Pulmonology Progress Note ---
Assessment/Plan Assessment/Plan Pulmonary Progress Note Assessment/Plan ASSESSMENT: The patient is a 58-year-old female with a history of obesity, diabetes, hypertension, hyperlipidemia, and sciatica with chronic low back pain , DDD/DJD, presenting after a mechanical fall with altered mental status and confusion with likely sepsis and multisystem organ failure. Stable Pulmonary Status PROBLEM LIST: 1. VDRF, EXTUBATED 10/16/18 2. Sepsis 3. Shock, hypovolemic and distributive. 4. Multisystem organ failure. 5. Lactic acidosis. 6. Anion gap metabolic acidosis. 7. JONNATHAN - BETTER 7. Abnormal LFTs, likely shock liver. 8. Abnormal troponin, likely demand ischemia. 9. Elevated D-dimer and PASP concerning for an acute PE 10. Obesity. 11. Diabetes. 12. Hypertension. 13. Chronic low back pain and sciatica. 14. Anemia/FOBT + 15. Thrombocytopenia 16. AFcRVR now in NSR 17. HyperNa 18. Herpes labialis TREATMENT PLAN: 1. Optimize pulmonary hygiene/mobilize as tolerated 2. Titrate down FiO2 to keep SaO2 < 90% 3. Abx per ID (now on PO Cipro) 5. PO Lasix and Aldactone 6. SSI, monitor BS 7. Follow up cards recs 8. GI and surgery recs, ---> [facility] 9. DVT prophylaxis: SCD 10. FC, discuss GOC, consider palliative care eval Subjective Allergies: Coded Allergies: No Known Allergies (Unverified , 05/06/18) Subjective AFVSS O2 needs stable no cough no SOB no FC Plan to transfer to liver tx center Objective Vital Signs Noted General Appearance: no acute distress, other - icteric sclera HEENT: normocephalic, atraumatic, mucous membranes moist, other - icteric sclera Respiratory/Chest: chest wall non-tender, lungs clear, normal breath sounds, no respiratory distress Cardiovascular: normal peripheral pulses, normal rate, regular rhythm Abdomen: normal bowel sounds, soft, non tender, no organomegaly, non distended , no mass Extremities: no cyanosis, no clubbing, other - 2+ edema Microbiology Date/Time Source Procedure Growth Status 10/29/18 16:50 Indwelling Cath Urine Culture - Final Escherichia Coli Complete Laboratory Tests 11/01/18 03:45: White Blood Count 11.2H, Red Blood Count 2.65L, Hemoglobin 8.2L, Hematocrit 25.6L, Mean Corpuscular Volume 97, Mean Corpuscular Hemoglobin 31.0, Mean Corpuscular Hemoglobin Concent 32.1, Red Cell Distribution Width 22.8H, Platelet Count 61L, Mean Platelet Volume 5.9L, Neutrophils (%) (Auto) , Lymphocytes (%) (Auto) , Monocytes (%) (Auto) , Eosinophils (%) (Auto) , Basophils (%) (Auto) , Sodium Level 143, Potassium Level 3.7, Chloride Level 106 , Carbon Dioxide Level 28, Anion Gap 9, Blood Urea Nitrogen 18, Creatinine 1.6H , Estimat Glomerular Filtration Rate 33.1, Glucose Level 169H, Calcium Level 9.1 , Total Bilirubin 9.4H, Direct Bilirubin 7.1H, Aspartate Amino Transf (AST/SGOT ) 101H, Alanine Aminotransferase (ALT/SGPT) 63, Alkaline Phosphatase 337H, Ammonia 84H, Total Protein 5.8L, Albumin 2.0L, Globulin 3.8, Albumin/Globulin Ratio 0.5L Current Medications Medications (Trade) Dose Ordered Sig/Patricia Route PRN Reason Start Time Stop Time Status Last Admin Dose Admin Albuterol/ Ipratropium (Albuterol/ Ipratropium) 3 ml Q6H PRN HHN shortness of breath 10/29/18 17:30 11/03/18 17:29 Chlorhexidine Gluconate (Nguyen-Hex 2%) 1 applic DAILY@1999 TOPIC 10/17/18 20:00 11/09/18 19:59 10/31/18 20:34 Ciprofloxacin (Cipro 250mg tab) 250 mg EVERY 12 HOURS ORAL 11/01/18 21:00 11/08/18 20:59 Dextrose (Dextrose 50%) 25 ml Q30M PRN IV Hypoglycemia 10/17/18 14:45 11/10/18 13:44 Dextrose (Dextrose 50%) 50 ml Q30M PRN IV Hypoglycemia 10/17/18 14:45 11/10/18 13:44 Digoxin (Lanoxin) 0.125 mg QOD NG 10/19/18 09:00 11/15/18 08:59 10/31/18 09:08 Diphenhydramine HCl (Benadryl) 25 mg Q6H PRN IVP Itching 10/17/18 14:30 11/08/18 14:29 11/01/18 08:57 Furosemide (Lasix) 40 mg DAILY ORAL 10/29/18 09:00 11/28/18 08:59 11/01/18 08:56 Insulin Aspart (NovoLOG) BEFORE MEALS AND HS SUBQ 10/17/18 16:30 11/10/18 16:29 11/01/18 12:25 Lactulose (Cephulac) 30 gm EVERY 8 HOURS ORAL 10/31/18 14:00 11/12/18 17:59 11/01/18 05:41 Midazolam HCl (Versed 2mg/2ml vial) 1 mg Q2H PRN IVP For Anxiety 10/17/18 14:30 11/11/18 14:29 Morphine Sulfate (Morphine Sulfate) 2 mg Q4H PRN IVP For Pain 10/31/18 18:15 11/07/18 18:14 10/31/18 18:34 Pantoprazole (Protonix) 40 mg EVERY 12 HOURS ORAL 10/28/18 21:00 11/27/18 20:59 11/01/18 08:56 Phytonadione 1 mg/ Dextrose 55.5 ml @ 222 mls/hr ONCE ONCE IVPB 11/01/18 13:00 11/01/18 13:14 Rifaximin (Xifaxan) 550 mg EVERY 12 HOURS ORAL 10/27/18 09:00 11/10/18 08:59 11/01/18 08:57 Spironolactone (Aldactone) 100 mg DAILY ORAL 10/27/18 09:00 11/22/18 09:44 11/01/18 08:56 Subjective ROS Limited/Unobtainable: No Allergies: Coded Allergies: No Known Allergies (Unverified , 05/06/18) Objective Last 24 Hour Vital Signs Date Time Temp Pulse Resp B/P (MAP) Pulse Ox O2 Delivery O2 Flow Rate FiO2 11/05/18 12:00 114 11/05/18 12:00 98.0 117 20 123/66 (85) 99 11/05/18 09:40 96 Nasal Cannula 2.0 28 11/05/18 09:40 Nasal Cannula 2.0 28 11/05/18 09:40 115 24 Nasal Cannula 2.0 28 11/05/18 08:20 119 11/05/18 08:00 117 11/05/18 08:00 98.5 119 20 140/70 (93) 100 11/05/18 04:00 115 11/05/18 04:00 97.9 115 16 135/56 (82) 95 11/05/18 00:00 97.8 118 15 131/72 (91) 95 11/05/18 00:00 118 11/04/18 20:25 105 20 Nasal Cannula 2.0 28 11/04/18 20:25 96 Nasal Cannula 2.0 28 11/04/18 20:25 Nasal Cannula 2.0 28 11/04/18 20:00 99.3 126 13 120/63 (82) 95 11/04/18 19:10 126 11/04/18 16:36 100 11/04/18 16:00 Nasal Cannula 2.0 11/04/18 16:00 97.9 123 22 120/58 (78) 96 11/04/18 15:26 121 Intake and Output 11/04/18 11/05/18 19:00 07:00 Intake Total 200 ml Output Total 800 ml 550 ml Balance -600 ml -550 ml Other 200 ml Output Urine Total 800 ml 550 ml # Bowel Movements 2 Laboratory Tests 11/05/18 07:50: White Blood Count 13.8H, Red Blood Count 2.83L, Hemoglobin 8.6L, Hematocrit 27.4L, Mean Corpuscular Volume 97, Mean Corpuscular Hemoglobin 30.4, Mean Corpuscular Hemoglobin Concent 31.4L, Red Cell Distribution Width 23.8H, Platelet Count 109L, Mean Platelet Volume 5.8L, Neutrophils (%) (Auto) 78.1H, Lymphocytes (%) (Auto) 13.7L, Monocytes (%) (Auto) 5.4, Eosinophils (%) (Auto) 1.9, Basophils (%) (Auto) 0.9 Current Medications Medications (Trade) Dose Ordered Sig/Patricia Route PRN Reason Start Time Stop Time Status Last Admin Dose Admin Chlorhexidine Gluconate (Nguyen-Hex 2%) 1 applic DAILY@1999 TOPIC 11/02/18 20:00 11/09/18 19:59 11/04/18 21:13 Dextrose (Dextrose 50%) 25 ml Q30M PRN IV Hypoglycemia 11/02/18 15:15 11/10/18 13:44 Dextrose (Dextrose 50%) 50 ml Q30M PRN IV Hypoglycemia 11/02/18 15:15 11/10/18 13:44 Digoxin (Lanoxin) 0.125 mg DAILY ORAL 11/04/18 09:00 11/15/18 08:59 11/05/18 08:20 Diphenhydramine HCl (Benadryl) 25 mg Q6H PRN IVP Itching 11/02/18 16:00 11/08/18 15:59 11/05/18 10:11 Furosemide (Lasix) 20 mg DAILY IV 11/03/18 09:00 12/03/18 08:59 11/05/18 08:21 Insulin Aspart (NovoLOG) BEFORE MEALS AND HS SUBQ 11/02/18 16:30 11/10/18 16:29 11/05/18 12:12 Lactulose (Cephulac) 30 gm EVERY 8 HOURS ORAL 11/02/18 22:00 11/12/18 17:59 11/05/18 13:55 Ondansetron HCl (Zofran) 4 mg Q6H PRN IVP Nausea & Vomiting 11/02/18 15:48 12/02/18 15:47 11/05/18 10:11 Pantoprazole (Protonix) 40 mg Q12HR ORAL 11/03/18 21:00 11/27/18 20:59 11/05/18 08:20 Rifaximin (Xifaxan) 550 mg EVERY 12 HOURS ORAL 11/02/18 21:00 11/10/18 08:59 11/05/18 08:21 Spironolactone (Aldactone) 100 mg DAILY ORAL 11/03/18 09:00 11/22/18 09:44 11/05/18 08:20 Tramadol HCl (Ultram) 50 mg Q6H PRN ORAL For Pain 11/03/18 16:45 11/10/18 16:44 Vishnu Jurado MD Nov 05, 2018 15:23
[2018-11-05 15:56] VITALS: BP 107/55
[2018-11-05] MEDS ORDERED: Albuterol/Ipratropium 3ml neb HHN SCH ×2 (19:00→23:00)
--- NOTE | 2018-11-05 19:00 | NUR ---
NURSE NOTES: o2 sat dropping to 82% on 2l, pt start gasping, called dr. Jurado, ordered Bipap /, respiratory treatment, ABG.
--- NOTE | 2018-11-05 19:14 | NUR ---
RESPIRATORY NOTE: RT WAS CALLED TO ASSESS THIS PT DUE TO HER HAVING SOB. ON INITIAL ASSESSMENT, PT WAS FOUND SLIGHTLY RESPONSIVE WITH SOB, GASPING FOR AIR, AND WITH AN INCREASED RR. AUSCULTATION REVEALED DIMINISHED BREATH SOUNDS IN ALL LOBES ON INSPIRATORY AND EXPIRATORY PHASES OF BREATH. PT'S SPO2 WAS 92% ON 5 LPM FIO2 VIA NASAL CANNULA. NO SCHEDULED NOR PRN RESP. MEDICATION WAS AVAILABLE TO GIVE IMMEDIATELY. RN NURSE IRMA ISAACS WAS INFORMED AND WAS ASKED TO PUT IN AN ORDER FOR RESPIRATORY MEDICATION. SHE CALLED MD AND HE ORDERED THE PT TO HAVE Q4 DUONEB TX'S. A BIPAP ORDER WAS ALSO INSTRUCTED. PT IS NOW ON BIPAP 14/5, BACK UP RATE OF 18, 100% FIO2. ALARMS WERE ADJUSTED. ORDER IS TO KEEP SATURATION FROM 92% TO 94%. PT WAS GIVEN HHN TX IN LINE AFTER PLACING HER ON BIPAP. FACE WAS TAPED WITH SPONGE TAPE. NO FACIAL WOUNDS WERE FOUND PRIOR TO TAPING. PT PLACED ON FACIAL MASK. SPO2 HAS IMPROVED TO 92% TO 95% POST HHN TX AND WHILE PT IS ON BIPAP. HOWEVER, PT'S VT WAS POOR RANGING FROM 190 TO 230 IN SPITE OF RT'S BEST EFFORT TO ADJUST MASK. MASK LEAK IS CURRENTLY 20. PT IS NOW LESS RESPONSIVE. BIPAP CONNECTED TO RED OUTLET. BIPAP CIRCUIT SECURE AND OUT OF THE WAY. WILL CONTINUE TO MONITOR CLOSELY.
[2018-11-05] MEDS ORDERED: DiphenhydrAMINE 50mg/ml Inj IVP PRN (20:12)
[2018-11-05] MEDS ORDERED: traMADol 50mg tab ORAL PRN (20:13)
[2018-11-05] MEDS ORDERED: NovoLOG Insulin Flexpen SUBQ SCH (21:00)
--- NOTE | 2018-11-05 21:00 | NUR ---
NURSE NOTES: Patient received from Darius RN, laundrette owner. Patient transferred from telemetry after CONVENTIONS ASSISTANT was called. Patient intubated in telemetry and pressors started there too. Central line already in place. In ICU, patient was hooked onto the monitor and prepped/ Patient then began to go Bradycardic on the monitor, no pulse noted upon palpation and code blue was called. Patient coded twice. MD and code team responded promptly. Eventually family ( and son) upon agreement with the entire family and friends that was at bedside decided to stop compressions and treatment and let patient peacefully. Attending MD and Route Sales Driver was called and notified of patients condition and family decisions regarding the code. Patient was cleaned and family was allowed at bedside for mourning. Explained to and son about patient will be held in [facility] for the time being while family sets up arrangements. All documents necessary was signed by . Called [facility].
[2018-11-05] MEDS ORDERED: Piperacillin/Tazobactam 3.375 GM in NS 110 ML IVPB SCH (21:30)
[2018-11-05] MEDS ORDERED: Lactulose 20gm/30ml UDC ORAL SCH (22:00)
--- NOTE | 2018-11-05 22:13 | Emergency Room Report ---
History of Present Illness General Chief Complaint: Multiple Trauma/Fall Source: Patient, Medical Record Present Illness Allergies: Coded Allergies: No Known Allergies (Unverified , 05/06/18) Patient History Last Menstrual Period: unknown Nursing Documentation-[facility] Past Medical History: No History, Except For Hx Hypertension: Yes Hx Diabetes: Yes Physical Exam Vital Signs Date Time Temp Pulse Resp B/P (MAP) Pulse Ox O2 Delivery O2 Flow Rate FiO2 11/01/18 07:25 97 Nasal Cannula 2.0 28 11/01/18 08:00 107 11/01/18 08:00 97.9 23 138/74 (95) Procedures Critical Care Time Critical Care Time i. I feel this is a highly complex case requiring extensive working including EKG/Rhythm strip, Xray/CT/US, Blood/urine lab work, repeat exams while in ED, and administration of strong opiates/narcotics for pain control, admission to hospital or close patient follow up. Total time: 60 min bedside evaluation and treatment excludes procedures (EKG). Reason for critical care: cardiac arrest, respiratory failure Possible complications: hypotension, hypertension, NE, shock, arrhythmias, metabolic acidosis, end organ damage, respiratory failure. Interventions: intubation, ACLS, compressions, levophed. discussion with family Course: Patient presenting in respiratory distress, asystole. On initial evaluation I intubated patient with pulse regained. Patient started on Levophed and transferred to ICU. Patient shortly after developed asystole. Chest compressions and medications given and pulse resumed. Patient developed a third round of asystole shortly after. Chest compressions started. Medications given. At this time I discussed with family who is at bedside. Explained the prognosis is poor. They agreed that resuscitative efforts should be terminated. Patient expires Consultations: nursing staff, EMS, family Performed by: Dr Amezcua Tolerated well condition = expires j. because of unstable vital signs this patient had a condition that could potentially threaten life or limb. I feel this is a critical patient who required my full attention while patient was considered critical. Total Critical Care Time excluding procedures was greater than 35 minutes CPR/Code Blue CPR/Code Blue Narrative See code blue sheet for full negative Intubation Intubation : Consent: Emergent Intubation Method: orotracheal Tube Size (cm): 7.0 Breath Sounds after Intubation: equal Intubation Complications: no complications Post Intubation Xray: Yes Attempts: One Patient Tolerated: Well Complications: None Medical Decision Making Diagnostic Impression: Primary Impression: Liver cirrhosis Additional Impressions: Septic shock Pneumonia ER Course I was called to this CODE BLUE on the telemetry floor. Patient developed respiratory distress after being on BiPAP. Patient became unresponsive. I evaluated the patient. Patient did become bradycardic and given atropine. I intubated the patient. Patient was then moved to the ICU. Levophed was started. Shortly after patient again became asystolic. Compressions and epinephrine given. Patient shortly after regained pulses. Patient then developed a third round of asystole. Chest compressions and medications started. I discussed poor prognosis with the family. They agreed to terminate resuscitative efforts. Patient expires Last Vital Signs Date Time Temp Pulse Resp B/P (MAP) Pulse Ox O2 Delivery O2 Flow Rate FiO2 11/05/18 19:26 Bi-pap 100 11/05/18 19:26 99 21 11/05/18 19:26 95 11/05/18 16:59 97.5 11/05/18 15:56 107/55 (72) 11/05/18 09:40 2.0 Status: worsened Disposition: Condition: Referrals: NON PHYSICIAN (PCP) Rohit Amezcua MD Nov 05, 2018 22:13
--- NOTE | 2018-11-06 00:22 | NUR ---
Rapid response was called. As i Arrived to patients room, Patient was on Bipap and recieving treatment. Patient was not sating well. Then jenny amaya was called. Patient was bagged then intubated in tele with a 7.5 @23 at the lip. patient was then transported to ICU. Once arrived to ICU patient started to desaturate, so bagging continued and Vent was postponed. Then Code blue was called and CPR initiated again. Family then agreed to let her rest. RESPIRATORY NOTE: Addendum: 11/06/18 at 1821 by SANNA HAYWOOD RT RESPIRATORY NOTE: Rapid response was called 1924. As i Arrived to patients room, Patient was on Bipap and recieving treatment. Patient was not sating well. Then jenny amaya was called. Patient was bagged then intubated in tele with a 7.5 @23 at the lip. patient was then transported to ICU. Once arrived to ICU patient started to desaturate, so bagging continued and Vent was postponed. Then Jenny amaya was called and CPR initiated again. Family then agreed to let her rest.
[2018-11-06] MEDS ORDERED: Spironolactone 50mg tab ORAL SCH (09:00)
[2018-11-06] MEDS ORDERED: Digoxin 0.125mg tab ORAL SCH (09:00)
--- NOTE | 2018-11-06 13:45 | Discharge Summary ---
Discharge Summary Discharge Summary _ SUMMARY DATE OF ADMISSION: 10/09/2018 DATE OF EXPIRATION: 11/05/2018 REASON FOR ADMISSION: 58 years old female with past medical history of hypertension, diabetes mellitus , obesity, sciatica, was brought to emergency department after mechanical fall with confusion and altered mental status. Patient was going to the bathroom to urinate , when she fell. No history of loss of consciousness, but per family patient was very confused. In the emergency department patient demonstrated evidence of multisystem organ failure with abnormal creatinine, abnormal LFT , elevated troponin and was admitted for further evaluation and management. Vital signs reveal hypotension . Patient received multiply IV boluses, but unfortunately blood pressure did not respond to fluid challenge. Ultimately patient was started on pressor. In the emergency department patient was started on broad-spectrum antibiotics and received injection of Lovenox CT head was negative for acute intracranial bleeding or mass-effect. Lumbar CT spine revealed multilevel degenerative facet arthrosis , but no acute bony trauma. Chest x-ray demonstrated cardiomegaly with right base atelectasis. CT of the abdomen and pelvis revealed evidence of hepatic cirrhosis. Surgically absent gallbladder. Small amount of ascites. Bilateral basilar pulmonary parenchymal atelectatic changes with possible patchy consolidation. Patient subsequently was admitted to ICU for further management. CONSULTANTS: hypoid gear tester Dr. Lorenz pulmonary Dr. Delarosa ID specialist Dr. Sher GI specialist Dr. Reynolds plasterer spray gun Dr. Cueto supervisor coating/oncologist Dr. Villagomez surgery [facility] COURSE: Patient admitted to ICU started on IV hydration. Hemodynamic status was closely monitored to keep mean arterial pressure above 60. Patient started on broad-spectrum antibiotics. Infectious disease consult was requested. Troponin and lactic acid were trended. Venous duplex bilateral lower extremity revealed no evidence of DVT . D-dimer was significantly elevated-8.37. On d ue to respiratory distress patient required emergency oral intubation. ABG prior to intubation on 55% FiO2 via Venturi mask revealed severe respiratory acidosis with pH 6.92, PCO2 72, O2 sats 65% . Ventilator support and pulmonary toilet provided as per pipe jeeper. Patient was followed -up with ABG and chest x-ray. Echocardiogram revealed preserved ejection fraction of 60-65% with no evidence of left ventricular hypertrophy. No evidence of wall motion abnormality. Right ventricular systolic pressure of 47 consistent with moderate pulmonary hypertension. Heel Edge Inker Machine closely followed . Troponin remained elevated with highest elevation reaching 1.239. According to hypoid gear tester , patient had troponin leak. Levels were flat and likely due to patient's sepsis and septic shock. Patient also developed atrial fibrillation with rapid ventricular response. Patient initially started on beta-janet and calcium channel jaent , but they were discontinued due to hypotension. Patient was on amiodarone , which also stopped due to elevated LFT. The patient started on digoxin every other day. Patient converted to sinus rhythm. Patient was able to be weaned off pressors. CTA of the chest revealed no definite evidence of acute pulmonary emboli. Noted consolidative and groundglass opacities , possibly reflecting areas of infiltrate or edema. Resultant right basilar atelectatic changes as well as atelectatic changes the posterior lungs bilaterally. Evidence of hepatic cirrhosis with ascites and splenomegaly. Infectious disease doctor closely followed. Blood cultures were negative. Urine cultures was negative. Stool cultures was negative. Influenza screen test for influenza A and B ,parainfluenza 1-3 days with respiratory subcutanian tibial virus and adenovirus were all negative . Stool for C. difficile was negative. Repeated sputum culture showed Nikki, and repeated urine culture revealed E. coli. Patient was on antibiotics, which eventually discontinued as [facility] infectious disease specialist. patient initially kept n.p.o. until stabilized then diet was advanced with aspiration precaution. DVT prophylaxis provided. Blood sugar was managed with sliding scale of insulin and oral hypoglycemic were kept on hold. . On 11/05 NICKO FELIX was called. Patient developed respiratory distress after being on the BiPAP and became unresponsive. She was bradycardic, atropine was given. Patient was orally intubated and was moved to ICU. Patient was hypotensive and started on Levophed. However shortly afterwards , patient became asystolic . Unfortunately all resuscitative attempts were unsuccessful . Poor prognosis was discussed with the family , and family agreed to terminate resuscitation. Patient was pronounced at 20:37 on 11/05/2018 . Cause of : cardiopulmonary arrest FINAL DIAGNOSES: Septic shock Aspiration pneumonia UTI with a E. coli Shock, hypovolemic and distributive Multisystem organ failure Lactic acidosis Acute kidney injury/acute renal failure resolved Abnormal LFT likely shock liver Elevated troponin probably demand ischemia Diabetes mellitus Hypertension Obesity Chronic low back pain with sciatica Atrial fibrillation with rapid ventricular response resolved Nonsustained ventricular tachycardia Morbid obesity Dysphagia Respiratory failure status post intubation and extubation Cirrhosis D Anemia status post blood transfusion Cirrhosis with ascites Enteritis Ileus -resolved GI bleeding I have been assigned to dictate discharge summary for this account. I was not involved in the patient's management. Carissa Nguyen NP Nov 06, 2018 13:45
[2018-11-06] MEDS ORDERED: Dyna-Hex 2% Top Sol 2oz TOPIC SCH (20:00)
== END 2018-11-05 22:49 | disposition expired | DRG 870 ==
LOC: EDBD 08:26 → EMR 09:00 → EDBEDREQ 09:06 → EDBEDREQSVC 09:26 → ICU 09:31 → EDBEDREQ 11:30 → 2W 10-17 11:08 → 2E 11-02 14:03 → ICU 11-05 20:43
PROC: 0BH17EZ Insertion of Endotracheal Airway into Trachea, Via Natural or Artificial Opening (ICD-10-PCS; principal; 2018-10-09)
PROC: 05H533Z Insertion of Infusion Device into Right Subclavian Vein, Percutaneous Approach (ICD-10-PCS; principal; 2018-10-09)
PROC: 5A1955Z Respiratory Ventilation, Greater than 96 Consecutive Hours (ICD-10-PCS; principal; 2018-10-09)
PROC: 30233N1 Transfusion of Nonautologous Red Blood Cells into Peripheral Vein, Percutaneous Approach (ICD-10-PCS; 2018-10-11)
PROC: 02H633Z Insertion of Infusion Device into Right Atrium, Percutaneous Approach (ICD-10-PCS; 2018-10-15)
DX: A41.9 Sepsis, unspecified organism (principal); R65.21 Severe sepsis with septic shock; J69.0 Pneumonitis due to inhalation of food and vomit; K72.00 Acute and subacute hepatic failure without coma; J96.92 Respiratory failure, unspecified with hypercapnia; N17.9 Acute kidney failure, unspecified; N39.0 Urinary tract infection, site not specified; I24.8 Other forms of acute ischemic heart disease; I47.2 Ventricular tachycardia; R18.8 Other ascites; K92.2 Gastrointestinal hemorrhage, unspecified; K56.7 Ileus, unspecified; E87.2 Acidosis; Z99.11 Dependence on respirator [ventilator] status; E87.0 Hyperosmolality and hypernatremia; K74.60 Unspecified cirrhosis of liver; E66.01 Morbid (severe) obesity due to excess calories; E11.9 Type 2 diabetes mellitus without complications; I10 Essential (primary) hypertension; B96.20 Unspecified Escherichia coli [E. coli] as the cause of diseases classified elsewhere; R57.1 Hypovolemic shock; M54.40 Lumbago with sciatica, unspecified side; I48.91 Unspecified atrial fibrillation; R13.10 Dysphagia, unspecified; K72.90 Hepatic failure, unspecified without coma; K52.9 Noninfective gastroenteritis and colitis, unspecified; T07.XXXA Unspecified multiple injuries, initial encounter; S80.02XA Contusion of left knee, initial encounter; S80.01XA Contusion of right knee, initial encounter; W19.XXXA Unspecified fall, initial encounter; Y92.002 Bathroom of unspecified non-institutional (private) residence as the place of occurrence of the external cause; Z91.81 History of falling; Z79.84 Long term (current) use of oral hypoglycemic drugs; Z96.653 Presence of artificial knee joint, bilateral; M47.896 Other spondylosis, lumbar region; Z90.49 Acquired absence of other specified parts of digestive tract; D50.9 Iron deficiency anemia, unspecified; D69.6 Thrombocytopenia, unspecified; I25.10 Atherosclerotic heart disease of native coronary artery without angina pectoris; J98.9 Respiratory disorder, unspecified; E11.65 Type 2 diabetes mellitus with hyperglycemia; B00.1 Herpesviral vesicular dermatitis; R97.0 Elevated carcinoembryonic antigen [CEA]; Z68.39 Body mass index [BMI] 39.0-39.9, adult
CPT/HCPCS: 31500; 36415; 36569; 36600; 70450; 71045; 71275; 72131; 74018; 74176; 74230; 76700; 76937; 76942; 80048; 80053; 80061; 80076; 80162; 80202; 80307; 80329; 81003; 82103; 82105; 82140; 82150; 82248; 82270; 82378; 82390; 82533; 82550; 82553; 82607; 82728; 82746; 82803; 82962; 82977; 83036; 83540; 83550; 83605; 83615; 83690; 83735; 83880; 84100; 84300; 84439; 84443; 84484; 84550; 85007; 85025; 85044; 85379; 85610; 85651; 85730; 86039; 86140; 86235; 86256; 86703; 86705; 86709; 86803; 86850; 86900; 86901; 86920; 87040; 87045; 87070; 87081; 87086; 87181; 87205; 87324; 87340; 93005; 93306; 93970; 94002; 94003; 94640; 94664; 94760; 96365; 96366; 96368; 99291; J1815; J2405; J2765; J3430; J7620; J8499